=== PATIENT | female | born 1940 | race Caucasian/White ===

== ENCOUNTER → 2018-03-01 10:08 | Outpatient (CLI) | payer MEDICARE, OTHER, SELFPAY ==
[2018-03-01 13:30] LABS: Absolute Lymphocyte Count 1.92 X10^3/ul (0.83-4.51); Absolute Neutrophil Count 5.7 X10^3/uL (2.0-7.7); Basophil# 0.04 X10^3/uL; Basophil% 0.4 % (0-1); Eosinophil# 0.21 X10^3/uL; Eosinophils% 2.3 % (0-5); Hemoglobin 12.5 g/dl (12.0-15.0); Lymphocyte # 1.92 X10^3/ul (4.0); Lymphocyte % 21.1 % (19-41); Mean Corp Hgb Conc 32.9 g/gl (32-36); Mean Corpuscular Hgb 29.9 pg (27.0-32.0); Mean Corpuscular Volume 90.9 fL (81-99); Mean Platelet Vol. 11.8 fl (6.2-12.0); Monocyte# 1.16 X10^3/uL; Monocyte% 12.7 % (0-10); Neutrophil # 5.73 X10^3/uL (2.7-7.7); Platelet Count 185 K/mm3 (150-450); RBC Distribution Width CV 14.6 % (11.6-14.6); RBC Distribution Width SD 48.1 fl (35.1-43.9); Red Blood Count 4.18 M/mm3 (4.2-5.4); White Blood Count 9.1 K/mm3 (4.4-11.0)
[2018-03-01 13:33] LABS: POSITIVE COUNT NO; POSITIVE DIFFERENTIAL NO; POSITIVE MORPHOLOGY NO
[2018-03-01 13:54] LABS: Albumin, Serum 3.8 g/dL (3.2-5.0); BUN 29 mg/dL (7-18); BUN/Creat Ratio 27.6 RATIO (10-20); Creatinine, Serum 1.05 mg/dL (0.55-1.02); EST Glomerular Filtration Rate 54 mL/min (>60); Est Glom Filt Rate - Afr Amer 66 mL/min (>60); Globulin 3.8 g/dL (2.2-4.2); Glucose 111 mg/dL (74-106); Protein, Total 7.6 g/dL (6.4-8.2)
[2018-03-01 13:55] LABS: AST(SGOT) 30 U/L (15-37); Alanine Aminotransfer ALT/SGPT 34 U/L (13-56); Alkaline Phosphatase 97 U/L (45-117); Anion Gap 6 (5-15); Calcium,Total 9.2 mg/dL (8.5-10.1); Chloride 106 mmol/L (98-107); Potassium 3.8 mmol/L (3.5-5.1); Sodium Level 142 mmol/L (136-145); Thyroid Stim Hormone (TSH) 2.05 uIU/mL (0.358-3.74)
== END ==
PROVIDERS: Family Provider Family Medicine Geriatric Medicine; PCP Family Medicine Geriatric Medicine; Visit Provider Family Medicine Geriatric Medicine
DX: I10 Essential (primary) hypertension (principal); E11.9 Type 2 diabetes mellitus without complications; E55.9 Vitamin D deficiency, unspecified
CPT/HCPCS: 36415; 80053; 82306; 84443; 85025

== ENCOUNTER → 2018-06-03 09:12 | Outpatient (CLI) | payer MEDICARE, OTHER, SELFPAY ==
[2018-06-03 12:52] LABS: Absolute Lymphocyte Count 1.32 X10^3/ul (0.83-4.51); Absolute Neutrophil Count 4.4 X10^3/uL (2.0-7.7); Basophil# 0.03 X10^3/uL; Basophil% 0.4 % (0-1); Eosinophil# 0.19 X10^3/uL; Eosinophils% 2.8 % (0-5); Hematocrit 36.5 % (37-47); Hemoglobin 11.8 g/dl (12.0-15.0); Lymphocyte # 1.32 X10^3/ul (4.0); Lymphocyte % 19.4 % (19-41); Mean Corp Hgb Conc 32.3 g/gl (32-36); Mean Corpuscular Hgb 29.5 pg (27.0-32.0); Mean Corpuscular Volume 91.3 fL (81-99); Mean Platelet Vol. 11.4 fl (6.2-12.0); Monocyte# 0.86 X10^3/uL; Monocyte% 12.6 % (0-10); Neutrophil # 4.38 X10^3/uL (2.7-7.7); Neutrophil % 64.4 % (47-70); POSITIVE COUNT NO; POSITIVE DIFFERENTIAL NO; POSITIVE MORPHOLOGY NO; Platelet Count 158 K/mm3 (150-450); RBC Distribution Width CV 14.6 % (11.6-14.6); RBC Distribution Width SD 47.4 fl (35.1-43.9); White Blood Count 6.8 K/mm3 (4.4-11.0)
[2018-06-03 13:25] LABS: AST(SGOT) 21 U/L (15-37); Alanine Aminotransfer ALT/SGPT 27 U/L (13-56); Albumin, Serum 3.6 g/dL (3.2-5.0); Alkaline Phosphatase 87 U/L (45-117); Anion Gap 9 (5-15); BUN 42 mg/dL (7-18); BUN/Creat Ratio 32.8 RATIO (10-20); Calcium,Total 9.2 mg/dL (8.5-10.1); Chloride 105 mmol/L (98-107); Creatinine, Serum 1.28 mg/dL (0.55-1.02); EST Glomerular Filtration Rate 43 mL/min (>60); Est Glom Filt Rate - Afr Amer 52 mL/min (>60); Globulin 3.7 g/dL (2.2-4.2); Glucose 158 mg/dL (74-106); Potassium 3.6 mmol/L (3.5-5.1); Protein, Total 7.3 g/dL (6.4-8.2); Sodium Level 142 mmol/L (136-145); Thyroid Stim Hormone (TSH) 3.02 uIU/mL (0.358-3.74)
[2018-06-04 08:19] LABS: Vitamin D,25 Hydroxy 79.4 ng/mL (29.95-100.01)
== END ==
PROVIDERS: Family Provider Family Medicine Geriatric Medicine; PCP Family Medicine Geriatric Medicine; Visit Provider Family Medicine Geriatric Medicine
DX: I10 Essential (primary) hypertension (principal); E55.9 Vitamin D deficiency, unspecified; E11.9 Type 2 diabetes mellitus without complications
CPT/HCPCS: 36415; 80053; 82306; 84443; 85025

== ENCOUNTER → 2018-09-08 11:52 | Outpatient (CLI) | payer MEDICARE, OTHER, SELFPAY ==
[2018-09-08 12:37] LABS: Absolute Lymphocyte Count 1.59 X10^3/ul (0.83-4.51); Absolute Neutrophil Count 4.9 X10^3/uL (2.0-7.7); Basophil# 0.05 X10^3/uL; Basophil% 0.6 % (0-1); Eosinophil# 0.18 X10^3/uL; Eosinophils% 2.3 % (0-5); Hematocrit 36.7 % (37-47); Hemoglobin 11.8 g/dl (12.0-15.0); Lymphocyte # 1.59 X10^3/ul (4.0); Lymphocyte % 20.5 % (19-41); Mean Corp Hgb Conc 32.2 g/gl (32-36); Mean Corpuscular Hgb 29.1 pg (27.0-32.0); Mean Corpuscular Volume 90.4 fL (81-99); Mean Platelet Vol. 11.7 fl (6.2-12.0); Monocyte# 0.96 X10^3/uL; Monocyte% 12.4 % (0-10); Neutrophil # 4.93 X10^3/uL (2.7-7.7); Neutrophil % 63.8 % (47-70); Platelet Count 168 K/mm3 (150-450); RBC Distribution Width CV 14.7 % (11.6-14.6); RBC Distribution Width SD 47.6 fl (35.1-43.9); Red Blood Count 4.06 M/mm3 (4.2-5.4); White Blood Count 7.7 K/mm3 (4.4-11.0)
[2018-09-08 12:38] LABS: POSITIVE COUNT NO; POSITIVE DIFFERENTIAL NO; POSITIVE MORPHOLOGY NO
[2018-09-08 12:53] LABS: Vitamin D,25 Hydroxy 106.9 ng/mL (29.95-100.01)
[2018-09-08 12:57] LABS: ALB/GLOB Ratio 0.9 RATIO (0.9-2.4); AST(SGOT) 22 U/L (15-37); Alanine Aminotransfer ALT/SGPT 24 U/L (13-56); Albumin, Serum 3.6 g/dL (3.2-5.0); Alkaline Phosphatase 107 U/L (45-117); Anion Gap 5 (5-15); BUN 23 mg/dL (7-18); BUN/Creat Ratio 19.5 RATIO (10-20); Chloride 107 mmol/L (98-107); Creatinine, Serum 1.18 mg/dL (0.55-1.02); EST Glomerular Filtration Rate 47 mL/min (>60); Est Glom Filt Rate - Afr Amer 57 mL/min (>60); Globulin 3.8 g/dL (2.2-4.2); Glucose 139 mg/dL (74-106); Potassium 4.1 mmol/L (3.5-5.1); Protein, Total 7.4 g/dL (6.4-8.2); Sodium Level 141 mmol/L (136-145); Thyroid Stim Hormone (TSH) 3.19 uIU/mL (0.358-3.74)
== END ==
PROVIDERS: Family Provider Family Medicine Geriatric Medicine; PCP Family Medicine Geriatric Medicine; Visit Provider Family Medicine Geriatric Medicine
DX: E11.9 Type 2 diabetes mellitus without complications (principal); I10 Essential (primary) hypertension; E55.9 Vitamin D deficiency, unspecified
CPT/HCPCS: 36415; 80053; 82306; 84443; 85025

== ENCOUNTER 2019-12-27 11:06 | Emergency (ER) | payer MEDICARE, OTHER, SELFPAY ==
[2019-12-27 11:07] VITALS: BP 159/109; PULSE 107; RESP 16; TEMP 36.6; O2SAT 97; BMI 38.5
--- NOTE | 2019-12-27 11:29 | RAD_ITS ---
STUDY: X-RAY CHEST REASON FOR EXAM: Female, 79 years old. CHEST PAIN, A-FIB TECHNIQUE: Single AP portable view of the chest. COMPARISON: Comparison is made with prior study dated December 24, 2014. FINDINGS: EKG electrodes are seen. The lungs are clear and expanded. There is no demonstrated pleural abnormality. There is mild cardiac enlargement. Normal mediastinum and darling. Normal visualized pulmonary arteries. There is atherosclerotic calcification of the aortic arch with tortuosity. There are diffuse degenerative changes of the visualized thoracic spine. There is degenerative osteoarthritis of the bilateral shoulders. There is no demonstrated abnormality of the visualized soft tissue structures of the upper abdomen. RAD/Chest 1 View (Portable) IMPRESSION: Mild cardiomegaly. Electronically Signed: Ramakrishna Sainz, at 12:20 EST , Service support ,
--- NOTE | 2019-12-27 11:29 | EKG12_ITS ---
Test Reason : PALPS Blood Pressure : / mmHG Vent. Rate : 125 BPM Atrial Rate : 144 BPM P-R Int : 000 ms QRS Dur : 100 ms QT Int : 350 ms P-R-T Axes : 000 -45 160 degrees QTc Int : 505 ms Atrial fibrillation with rapid ventricular response Left anterior fascicular block Moderate voltage criteria for LVH, may be normal variant ST & T wave abnormality, consider lateral ischemia Abnormal ECG Confirmed by LALA VARGAS ([id number]), visual effects editor MOHAN LANDRUM ([id number] on 12/29/2019 3:15:11 PM Referred By: GAY Confirmed By:LALA VARGAS
--- NOTE | 2019-12-27 11:49 | ED.VISSUMM ---
- ER Visit Summary Date of Service: 12/27/19 Chief Complaint: Elevated heart rate History of Present Illness: The patient is a 79 F history of A. fib and insulin-dependent diabetes. Also hypertension. Patient's February less than a year ago. And she stopped taking her medications consistently. She supposed to be on Coumadin and metoprolol for her A. fib she is not taking those consistently. And insulin and oral hypoglycemics for diabetics which again she is not taking. She just recently changed primary care providers from Dr. Sun to nurse practitioner Teresita Ruiz. Physical Examination: Older female no acute distress initial blood pressure 139/109. Heart rate 107 on my exam was 110 120. H EENT exam unremarkable. Neck nontender JVD. No lymphadenopathy. Lungs clear to auscultation bilaterally. Heart irregular irregular rate about 110 consistent with A. fib RVR. No murmur appreciated. Abdomen soft nontender normal bowel sounds no peritoneal signs. Remedies moves all 4 calves nontender without edema or cords. Neurologically she is awake and alert with no focal motor deficits. 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 Normal dorsi plantarflexion. Test Results: EKG shows A. fib RVR with a rate of 125. Chest. Portable 1 view showed mild cardiomegaly otherwise no acute process. Read both myself and radiologist. CBC white count of 7. Hemoglobin 14. Unremarkable. Chemistries unremarkable except blood sugar 433. Normal gap of 5. Creatinine 1.1. PT/INR normal. Troponin normal. Serum ketones negative. Emergency Department Course and Treatment: Patient noncompliant with her medications with accelerated heart rate consistent with A. fib RVR. Also reportedly an elevated blood sugar. Should be treated with IV Cardizem. Repeat exam patient is doing well. Her heart rate 60 with 1 dose IV Cardizem. Given subcu insulin 15 units. I spoke with her nurse practitioner and they are calling in all of her prescriptions. Treatment Plan: Resume her Coumadin, metoprolol and insulin. Watch her blood sugars closely. Follow-up with the nurse practitioner. Disposition: Discharge Impression: Acute and recurrent A. fib with RVR Hyperglycemia history of insulin-dependent diabetes Noncompliant with medications This note was generated with [employer] software. It may contain incorrect words, spelling, and punctuation that were not noted in review of the chart prior to signing ED Disposition - Plan for ED Patient: Referrals: Bruce Sun Chi, MD [COURTESY STAFF PHYSICIAN] -
[2019-12-27 11:58] LABS: Absolute Lymphocyte Count 1.84 X10^3/uL (0.83-4.51); Absolute Neutrophil Count 4.9 X10^3/uL (2.0-7.7); Basophil# 0.05 X10^3/uL; Basophil% 0.6 % (0-1); Eosinophil# 0.17 X10^3/uL; Eosinophils% 2.2 % (0-5); Hematocrit 42.7 % (37-47); Hemoglobin 14.4 g/dL (12.0-15.0); Lymphocyte # 1.84 X10^3/ul (4.0); Lymphocyte % 23.5 % (19-41); Mean Corp Hgb Conc 33.7 g/dL (32-36); Mean Corpuscular Hgb 29.8 pg (27.0-32.0); Mean Corpuscular Volume 88.4 fL (81-99); Mean Platelet Vol. 11.6 fl (6.2-12.0); Monocyte# 0.82 X10^3/uL; Monocyte% 10.5 % (0-10); NRBC Flagged by Analyzer 0 % (0-5); Neutrophil # 4.89 X10^3/uL (2.7-7.7); Neutrophil % 62.4 % (47-70); Platelet Count 171 K/mm3 (150-450); RBC Distribution Width CV 12.7 % (11.6-14.6); RBC Distribution Width SD 41.3 fl (35.1-43.9); Red Blood Count 4.83 M/mm3 (4.2-5.4); White Blood Count 7.8 K/mm3 (4.4-11.0)
[2019-12-27] MEDS: dilTIAZem 25 MG/5 ML Vial IV BOLUS (11:58)
[2019-12-27 12:15] LABS: International Normalized Ratio 1.1; Prothrombin Time (Protime)PT. 14.4 SECONDS (11.7-14.9)
[2019-12-27 12:21] VITALS: BP 113/86; PULSE 68; RESP 18; O2SAT 96
[2019-12-27 12:23] LABS: Anion Gap 5 (5-15); BUN 22 mg/dL (7-18); BUN/Creat Ratio 19.1 RATIO (10-20); Calcium,Total 9.4 mg/dL (8.5-10.1); Chloride 102 mmol/L (98-107); Creatinine, Serum 1.15 mg/dL (0.55-1.02); EST Glomerular Filtration Rate 49 mL/min (>60); Est Glom Filt Rate - Afr Amer 59 mL/min (>60); Estimated Creatinine Clearance 31.89 ml/min; Glucose 433 mg/dL (74-106); Potassium 4.3 mmol/L (3.5-5.1); Sodium Level 135 mmol/L (136-145)
[2019-12-27 13:00] VITALS: BP 145/90; PULSE 79; RESP 18; O2SAT 95
--- NOTE | 2019-12-27 13:47 | DCINST.ED_ITS ---
ED Disposition - Plan for ED Patient: Disposition: Home or Assisted Living Instructions: Atrial Fibrillation Referrals: Teresita Ruiz, MULTIPLEX OPERATOR-C [Primary Care Provider] - 3-5 Days Additional Instructions: Restart your medications. I spoke to Teresita Ruiz on the phone in their office and call them in along with a glucometer. If there is any problems with that I called the ER and I will take care of myself. You definitely need to restart your insulin, your Coumadin and your metoprolol. When you restart your Coumadin you will need your Coumadin level checked your PT/INR by Thursday. Watch her blood sugars at least taken 3 times daily.
[2019-12-27 13:49] VITALS: BP 128/99; PULSE 72; RESP 18; O2SAT 96
[2019-12-27] MEDS: Insulin Lispro 100 UNIT/ML INSULN.PEN 15 UNIT SC (13:54)
== END 2019-12-27 13:54 | disposition home or self-care (01) ==
PROVIDERS: Emergency Provider Emergency Medicine; PCP Nurse Practitioner
DX: I48.91 Unspecified atrial fibrillation (principal); E11.65 Type 2 diabetes mellitus with hyperglycemia; I10 Essential (primary) hypertension; Z79.01 Long term (current) use of anticoagulants; Z79.4 Long term (current) use of insulin; Z91.14 Patient's other noncompliance with medication regimen
CPT/HCPCS: 71045; 80048; 82009; 84484; 85025; 85610; 93005; 99284; A4216

== ENCOUNTER → 2020-05-01 12:04 | Outpatient (CLI) | payer MEDICARE, OTHER, SELFPAY ==
--- NOTE | 2020-05-01 12:07 | BI_ITS ---
MAMMOGRAPHY - BILATERAL SCREENING REASON FOR EXAM: Female, 79 years old. Routine annual screening examination. PERTINENT HISTORY: Sister with breast cancer. TECHNIQUE: Digital bilateral breast lola (3D mammographic acquisition) in the CC and MLO projections. 2-D mediolateral oblique (MLO) and craniocaudad (CC) views of both breasts were obtained. CAD: Full Field Digital Mammography with Computer Added Detection was performed. COMPARISON: Comparison is made with prior study dated May 06, 2016 and April 04, 2014. FINDINGS: Breast Composition: The breasts are almost entirely fatty. There are no dominant masses or suspicious calcifications. No other significant abnormalities are identified. There has been no significant change since the prior study. BI/SCREEN MAMM (CAD) W/LOLA BILAT IMPRESSION: Stable bilateral screening mammogram. Yearly follow-up mammogram recommended. (A) ASSESSMENT CATEGORY: BIRADS Category 1: Negative. A letter regarding these results will be sent to the patient by the facility within 30 days. Approximately 10% of breast cancers are not detected by mammography. A normal mammogram should not delay biopsy of a clinically suspicious abnormality. [id number] Electronically Signed: Ramakrishna Sainz, at 13:59 EDT , Service support ,
--- NOTE | 2020-05-01 12:10 | BD_ITS ---
STUDY: DUAL ENERGY X-RAY ABSORPTIOMETRY / DXA REASON FOR EXAM: Female, 79 years old. 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 COMPARISON: Comparison is made with prior study dated May 06, 2016. FINDINGS: Lumbar Spine (L1-L4): g/cm2 (0.879) / T-score (-2.5) / Z-score (-0.7) Findings are suggestive of osteoporosis with a high fracture risk. Left Femur Total: g/cm2 (0.728) / T-score (-2.2) / Z-score (-0.3) Left Femoral Neck: g/cm2 (0.693) / T-score (-2.5) / Z-score (-0.4) Right Femur Total: g/cm2 (0.718) / T-score (-2.3) / Z-score (-0.4) Right Femoral Neck: g/cm2 (0.628) / T-score (-2.9) / Z-score (-0.9) The T-Scores on the most recent prior examination were: Lumbar Spine (L1-L4): There has been worsening of bone density since the previous examination. Left Femur Total: which represents a worsening of 16.1%. Right Femur Total: which represents a worsening of 13%. BD/Dexa Bone Density Study IMPRESSION: The patient is considered osteoporotic as outlined below according to World Case Organization (WHO) criteria with a high fracture risk. There has been worsening of bone density since the previous examination. Reference Information: The T-score is the number of standard deviations above or below the standard which is normal for young adults at their peak bone mineral density. The World Health Organization (WHO) interprets the T-scores as follows: Above -1 Normal bone density Between -1 and -2.5 Osteopenia Equal to / or below -2.5 Osteoporosis As a practical clinical guideline, osteopenia may be graded as follows: Mild -1 through -1.5 Moderate -1.6 through -2.0 Severe -2.1 through -2.4 The Z-score is the number of standard deviations above or below age-matched controls. A Z-score of less than -1.5 would be considered abnormal. References: 1. NIH Osteoporosis and Related Bone Diseases http://www.osteo.org 2. International Society for Clinical Densitometry http://www.iscd.org 3. National Osteoporosis Foundation http://www.nof.org Electronically Signed: Ramakrishna Sainz, at 15:03 EDT , Service support ,
== END ==
PROVIDERS: PCP Nurse Practitioner; Referring Provider Nurse Practitioner; Visit Provider Nurse Practitioner
DX: Z12.31 Encounter for screening mammogram for malignant neoplasm of breast (principal); Z78.0 Asymptomatic menopausal state
CPT/HCPCS: 77063; 77067; 77080

== ENCOUNTER → 2020-10-26 09:53 | Outpatient (CLI) | payer MEDICARE, OTHER, SELFPAY ==
[2020-10-09 09:12] VITALS: BMI 42.6
--- NOTE | 2020-10-26 09:54 | ECHOCS_ITS ---
Reason For Study: re-evaluate bicuspid aortic valve Procedure This was a 2D Doppler, Color Flow transthoracic echocardiogram. The study was technically difficult. DUE to body habitus. Contrast injection was performed. Exam performed in department. Left Ventricle Normal LV size. Mild concentric left ventricular hypertrophy. The estimated ejection fraction is 50 %. No regional wall motion abnormalities noted. Right Ventricle Normal RV size. Normal systolic function. Atria The left atrium is mildly enlarged. Normal right atrium. Mitral Valve Normal mitral valve. Tricuspid Valve Normal tricuspid valve. Mild (1+) tricuspid valve insufficiency. Pulmonary artery systolic pressure is 40 mmHg. Aortic Valve Mild focal aortic valve calcification. Bicuspid aortic valve. Peak aortic valve gradient 24 mmHg. Mean aortic valve gradient 14 mmHg. Mild aortic stenosis. Great Vessels Mildly dilated aortic root. The pulmonary artery is normal size. Normal inferior vena cava. Pericardium/Pleural No pericardial effusion. Medication 22 gauge I.V. with prn adaptor inserted into right arm. Diluted definity 3.0ml given slow IV push to enhance endocardial definition. MMode/2D Measurements & Calculations LVIDd: 4.7 cm IVSd: 1.3 cm LVOT diam: 2.1 cm LVIDs: 3.4 cm LVPWd: 1.3 cm LVOT area: 3.5 cm2 RVDd: 3.7 cm FS: 27.9 % Ao root diam: 3.8 cm LAV(MOD-bp): 87.6 ml LA A4 area: 22.2 cm2 LAV(MOD-bp) Indexed: 42.9 ml/m2 LAV(MOD-sp2): 90.9 ml LAV(MOD-sp4): 74.0 ml LA dimension(2D): 4.1 cm RA A4 area: 16.8 cm2 Doppler Measurements & Calculations MV E max yunier: 102.9 cm/sec Ao V2 max: 246.1 cm/sec LV V1 max: 83.1 cm/sec Ao max P.3 mmHg LV V1 max P.8 mmHg Ao V2 mean: 179.2 cm/sec LV V1 mean P.5 mmHg Ao mean P.1 mmHg LV V1 mean: 58.7 cm/sec Ao V2 VTI: 48.7 cm LV V1 VTI: 17.2 cm KINSEY(I,D): 1.2 cm2 KINSEY(V,D): 1.2 cm2 SV(LVOT): 60.7 ml PA V2 max: 58.0 cm/sec TR max yunier: 296.0 cm/sec TR max P.8 mmHg Interpretation Summary Normal LV size. Mild concentric left ventricular hypertrophy. Mean aortic valve gradient 14 mmHg. The estimated ejection fraction is 50 %. Mild (1+) tricuspid valve insufficiency. Pulmonary artery systolic pressure is 40 mmHg. Bicuspid aortic valve. Contrast injection was performed. Compared to prior study, there is no significant change. Ordering Physician: Elkin Beltran Referring Physician: Teresita Ruiz Performed By: Nichole Rainey, NAEEM, RVT
== END ==
PROVIDERS: PCP Nurse Practitioner; Referring Provider Nurse Practitioner Family; Visit Provider Nurse Practitioner Family
DX: I48.91 Unspecified atrial fibrillation (principal); Z79.899 Other long term (current) drug therapy; I35.2 Nonrheumatic aortic (valve) stenosis with insufficiency
CPT/HCPCS: 93306; Q9957; A4216; C8929

== ENCOUNTER 2022-01-02 09:03 | Emergency (ER) | payer MEDICARE, OTHER, SELFPAY ==
[2022-01-02 09:04] VITALS: BP 145/77; PULSE 80; RESP 15; TEMP 36; O2SAT 96; BMI 39.1
[2022-01-02 09:06] VITALS: BP 145/77; PULSE 80; RESP 15; TEMP 36; O2SAT 96
[2022-01-02 09:40] LABS: Bedside Glucose 89 mg/dL (70-110)
--- NOTE | 2022-01-02 09:52 | EDS_ITS ---
HPI History of Present Illness Chief Complaint: Weakness Informant: patient Onset/Context/Timing Onset: Today Context: Gradual Onset Timing: Continuous Quality: Weakness Location: Generalized Worsened by: Nothing Relieved by: Glucose, metoprolol Narrative Narrative: Patient presents with generalized weakness and some mild sweating that began today. Patient states it began gradually. Patient states it began after she woke up today. Patient states she felt weak all over. Patient states nothing makes it worse. Patient was not sure if it was her atrial fibrillation or her blood sugar. Patient took an oral glucose tablet and 2 of her metoprolol tablets. Patient states she started feeling better after this. [facility] Medical History Aortic stenosis with bicuspid valve Diabetes Environmental allergies Essential (primary) hypertension Hyperlipidemia Morbid obesity with BMI of 40.0-44.9, adult Nonobstructive atherosclerosis of coronary artery Paroxysmal atrial fibrillation Persistent atrial fibrillation Rapid atrial fibrillation (12/2019) Secondary pulmonary arterial hypertension Home Medications magnesium chloride 71.5 mg PO DAILY #30 tablet. 12/26/14 [Rx Last Taken Unknown] warfarin 5 mg PO UD #30 tab 12/26/14 [Rx Last Taken Unknown] atorvastatin 40 mg tablet 40 mg PO QDAY 12/28/17 [History Last Taken Unknown] ergocalciferol (vitamin D2) 1,250 mcg (50,000 unit) capsule 50,000 unit PO QWEEK 12/31/17 [History Last Taken Unknown] metoprolol tartrate 50 mg tablet 50 mg PO BID #180 tab 11/04/18 [Rx Last Taken Unknown] losartan 100 mg tablet 100 mg PO QDAY #90 tab 09/10/20 [Rx Last Taken Unknown] alendronate 70 mg effervescent tablet 70 mg PO QWEEK 09/19/20 [History Last Taken Unknown] insulin aspart U-100 100 unit/mL (3 mL) subcutaneous pen 15 unit SC TID #45 ml 10/09/20 [Rx Last Taken Unknown] insulin detemir U-100 100 unit/mL (3 mL) subcutaneous pen 20 unit SC DAILY #18 ml 10/09/20 [Rx Last Taken Unknown] pen needle, diabetic 32 gauge x #400 ea 10/09/20 [Rx Last Taken Unknown] warfarin 1 mg tablet 2 mg PO DAILY tab 11/24/20 [History Last Taken Unknown] famotidine 40 mg tablet 40 mg PO DAILY 05/07/21 [History Last Taken Unknown] glimepiride 2 mg tablet 2 mg PO BID tab 05/07/21 [History Last Taken Unknown] hydrochlorothiazide 25 mg tablet 25 mg PO DAILY #90 tab 05/07/21 [Rx Last Taken Unknown] levothyroxine 25 mcg capsule 25 mcg PO DAILY 05/07/21 [History Last Taken Unknown] Allergy/AdvReac Type Severity Reaction Status Date / Time lisinopril AdvReac Severe Cough Verified 05/07/21 09:29 liraglutide [From Victoza] AdvReac Other Verified 05/07/21 09:29 Family History Father CAD (coronary artery disease) Brother Diabetes Sister Diabetes Breast cancer Hyperlipidemia Hypertension Grandmother CVA (cerebral vascular accident) Grandfather Sudden cardiac Son Atrial fibrillation Surgical History History of appendectomy History of cholecystectomy History of hysterectomy History of left heart catheterization (03/11/12) Social History Smoking Status: Never smoker ROS ROS ED Constitutional Constitutional ED: Reports sweats; Denies chills or fever(s) Eyes Eyes: Denies blurry vision or change in vision ENT ENT ED: Denies rhinorrhea or sore throat Cardiovascular Cardiovascular: Denies chest pain or palpitations Respiratory/Chest Respiratory/Chest: Denies cough or dyspnea Gastrointestinal Gastrointestinal: Denies nausea or vomiting Genitourinary Genitourinary ED: Denies dysuria or hematuria Musculoskeletal Musculoskeletal: Denies back pain or neck pain Integumentary Denies abscess or rash Neurologic Neurologic: Reports weakness; Denies headache(s) Allergic/Immunologic Allergic/Immunologic ED: Denies mouth swelling or urticaria EXAM Physical Exam Const Vital Signs: 01/02/22 09:04 01/02/22 09:06 01/02/22 10:46 Temperature 96.8 F L 96.8 F L Temperature Source Temporal Temporal Pulse Rate 80 80 72 Respiratory Rate 15 15 18 Blood Pressure 145/77 H 145/77 H 140/69 H Blood Pressure Mean 99 99 92 Pulse Ox 96 96 Oxygen Delivery Method Room Air Room Air 01/02/22 11:06 Temperature 98.7 F Temperature Source Temporal Pulse Rate 76 Respiratory Rate 16 Blood Pressure 122/74 H Blood Pressure Mean 90 Pulse Ox 96 Oxygen Delivery Method Room Air Positive well nourished, well developed, obese and unkempt General Appearance ED: unkempt and well developed Nutritional Appearance: obese HEENT Reports moist mucous membranes Neck supple and no JVD Resp normal respiratory effort and clear to auscultation bilaterally Cardio regular rate, regular rhythm and no murmurs GI normal to inspection, nondistended, normoactive bowel sounds and non-tender Palpation: soft Extremity normal to inspection General Extremety ED: Negative for edema or tenderness General Extremity: Negative for edema Neuro oriented x3, CN's II-XII intact bilaterally and no sensory deficits noted Sensorium / Orientation: alert Motor Exam: strength 5/5 throughout Psych mental status grossly normal Appearance: unkempt Skin no rashes or lesions noted MDM MDM MDM Narrative Medical decision making narrative: EKG was obtained. On my interpretation, there is atrial fibrillation/flutter with a rate of 62. There is nonspecific interventricular conduction delay. There are nonspecific ST-T wave changes. This is unchanged compared to previous EKG dated 12/27/2019. CBC shows a slight leukocytosis of 11.3. Comprehensive metabolic profile was essentially within normal limits. Glucose was 78. INR was therapeutic at 2.9. High-sensitivity troponin was normal at 12. Portable 1 view chest x-ray was obtained. On my interpretation, lung vela are clear. There is normal cardiac silhouette. Bony thorax is normal. There is no acute process noted. Radiologist also inte rpreted the x-ray and agrees. Patient was advised of her findings. Patient was advised that this may have been a hypoglycemic episode. Patient was instructed to continue her diet as prescribed. Patient was instructed to follow-up with her primary care physician in 5 to 7 days. Patient understood and was agreeable with the plan. All questions were answered. Lab Data Attestation: I reviewed the patient's lab results. Labs: Laboratory Results - last 24 hr 01/02/22 01/02/22 01/02/22 09:34 10:20 10:20 WBC 11.3 H RBC 4.30 Hgb 13.0 Hct 38.8 MCV 90.2 MCH 30.2 MCHC 33.5 RDW Std Deviation 46.6 H RDW Coeff of [place] 14.0 Plt Count 209 MPV 10.6 Immature Gran % (Auto) 1.100 H Neut % (Auto) 75.9 H Lymph % (Auto) 10.2 L [place] % (Auto) 11.4 H Eos % (Auto) 1.0 Baso % (Auto) 0.4 Absolute Neuts (auto) 8.6 H Absolute Lymphs (auto) 1.16 Nucleated RBC % 0 PT INR Sodium 140 Potassium 3.8 Chloride 107 Carbon Dioxide 29.0 Anion Gap 4 L BUN 31 H Creatinine 0.78 Estim Creat Clear Calc 40.38 Est GFR (MDRD) Af Amer 92 Est GFR (MDRD) Non-Af 76 BUN/Creatinine Ratio 39.9 H Glucose 78 Calcium 9.1 Total Bilirubin 0.80 AST 33 ALT 34 Alkaline Phosphatase 94 Troponin I High Sens 12 Total Protein 7.1 Albumin 3.2 Globulin 3.9 Albumin/Globulin Ratio 0.8 L POC Glucose 89 01/02/22 01/02/22 10:20 11:35 WBC RBC Hgb Hct MCV MCH MCHC RDW Std Deviation RDW Coeff of [place] Plt Count MPV Immature Gran % (Auto) Neut % (Auto) Lymph % (Auto) [place] % (Auto) Eos % (Auto) Baso % (Auto) Absolute Neuts (auto) Absolute Lymphs (auto) Nucleated RBC % PT Cancelled 29.7 H INR Cancelled 2.9 Sodium Potassium Chloride Carbon Dioxide Anion Gap BUN Creatinine Estim Creat Clear Calc Est GFR (MDRD) Af Amer Est GFR (MDRD) Non-Af BUN/Creatinine Ratio Glucose Calcium Total Bilirubin AST ALT Alkaline Phosphatase Troponin I High Sens Total Protein Albumin Globulin Albumin/Globulin Ratio POC Glucose Radiography Diagnostic Testing: Clinical Impression(s) from Imaging Studies Chest X-Ray 01/02/22 10:25 IMPRESSION: Cardiomegaly. Electronically Signed: Ramakrishna Sainz MD at 11:33 EST , EKG Initial EKG: Attestation: I personally reviewed and interpreted this EKG as follows: Interpretation: No Acute Injury Pattern and Atrial Fibrillation (62) Prior EKG tracings: available for review Prior: Unchanged (12/27/2019) Discharge Plan Triage Chief Complaint: Weakness ED Provider: Hira Leone Dx/Rx/DC Orders Clinical Impression: General weakness, Hypoglycemia Instructions: ED Diabetic Insulin Reaction, ED Weakness (Uncertain Cause) Prescriptions: No Action atorvastatin 40 mg tablet 40 mg PO QDAY RF: 0 ergocalciferol (vitamin D2) 50,000 unit capsule 50,000 unit PO QWEEK RF: 0 warfarin 1 mg tablet 2 mg PO DAILY RF: 0 insulin detemir U-100 100 unit/mL (3 mL) insulin pen 20 unit SC DAILY Qty: 18 RF: 1 insulin aspart U-100 [Novolog Flexpen U-100 Insulin] 100 unit/mL (3 mL) insulin pen 15 unit SC TID Qty: 45 RF: 4 (DME) pen needle, diabetic [BD Ultra-Fine Kimber Pen Needle] 32 gauge x 5/32 needle See Rx Instructions .ROUTE .MEDSUPPLY Qty: 400 RF: 4 alendronate 70 mg tablet, effervescent 70 mg PO QWEEK RF: 0 famotidine 40 mg tablet 40 mg PO DAILY RF: 0 levothyroxine 25 mcg capsule 25 mcg PO DAILY RF: 0 glimepiride 2 mg tablet 2 mg PO BID RF: 0 hydrochlorothiazide 25 mg tablet 25 mg PO DAILY Qty: 90 RF: 3 warfarin 5 MG tablet 5 mg PO UD Qty: 30 RF: 0 magnesium chloride 71.5 MG tablet,delayed release (DR/EC) 71.5 mg PO DAILY Qty: 30 RF: 0 metoprolol tartrate 50 mg tablet 50 mg PO BID Qty: 180 RF: 3 losartan 100 mg tablet 100 mg PO QDAY Qty: 90 RF: 3 Primary Care Provider: Teresita Ruiz NP Referrals: Teresita Ruiz HIGH RISK OB, HIGH RISK OB-C [Primary Care Provider] - 3-5 Days Disposition Disposition: Home, Self Care
--- NOTE | 2022-01-02 09:56 | EKG12_ITS ---
Test Reason : Blood Pressure : / mmHG Vent. Rate : 062 BPM Atrial Rate : 069 BPM P-R Int : 000 ms QRS Dur : 132 ms QT Int : 456 ms P-R-T Axes : 000 -20 174 degrees QTc Int : 462 ms Atrial fibrillation Non-specific intra-ventricular conduction block T wave abnormality, consider lateral ischemia Abnormal ECG Confirmed by DANIEL WEBB, JOSE ([id number]), scientific editor MING JOHNSON ([id number]) on 01/06/2022 1:26:51 PM Referred By: AL Confirmed By:TANO SANCHEZ MD
--- NOTE | 2022-01-02 10:25 | RAD_ITS ---
STUDY: X-RAY CHEST REASON FOR EXAM: Female, 81 years old. Weakness TECHNIQUE: Single AP portable view of the chest. COMPARISON: Comparison is made with prior study dated 12/27/2019. FINDINGS: EKG electrodes are seen. The lungs are clear and expanded. There is no demonstrated pleural abnormality. There is moderate cardiac enlargement. Normal mediastinum and darling. Normal visualized pulmonary arteries. There is atherosclerotic calcification of the aortic arch with tortuosity. There are diffuse degenerative changes of the visualized thoracic spine. Normal visualized ribs, clavicles, and shoulders. There is no demonstrated abnormality of the visualized soft tissue structures of the upper abdomen. RAD/Chest 1 View (Portable) IMPRESSION: Cardiomegaly. Electronically Signed: Ramakrishna Sainz MD at 11:33 EST ,
[2022-01-02 10:27] LABS: Absolute Lymphocyte Count 1.16 X10^3/uL (0.83-4.51); Absolute Neutrophil Count 8.6 X10^3/uL (2.0-7.7); Basophil# 0.05 X10^3/uL; Basophil% 0.4 % (0-1); Eosinophil# 0.11 X10^3/uL; Hematocrit 38.8 % (37-47); Lymphocyte # 1.16 X10^3/ul (0.83-4.51); Lymphocyte % 10.2 % (19-41); Mean Corp Hgb Conc 33.5 g/dL (32-36); Mean Corpuscular Hgb 30.2 pg (27.0-32.0); Mean Corpuscular Volume 90.2 fL (81-99); Mean Platelet Vol. 10.6 fl (6.2-12.0); Monocyte# 1.29 X10^3/uL; Monocyte% 11.4 % (0-10); NRBC Flagged by Analyzer 0 % (0-5); Neutrophil % 75.9 % (47-70); Platelet Count 209 K/mm3 (150-450); RBC Distribution Width SD 46.6 fl (35.1-43.9); White Blood Count 11.3 K/mm3 (4.4-11.0)
[2022-01-02 10:46] VITALS: BP 140/69; PULSE 72; RESP 18
[2022-01-02 10:46] LABS: ALB/GLOB Ratio 0.8 RATIO (0.9-2.4); AST(SGOT) 33 U/L (15-37); Alanine Aminotransfer ALT/SGPT 34 U/L (13-56); Albumin, Serum 3.2 g/dL (3.2-5.0); Alkaline Phosphatase 94 U/L (45-117); Anion Gap 4 (5-15); BUN 31 mg/dL (7-18); BUN/Creat Ratio 39.9 RATIO (10-20); Calcium,Total 9.1 mg/dL (8.5-10.1); Chloride 107 mmol/L (98-107); Creatinine, Serum 0.78 mg/dL (0.55-1.02); EST Glomerular Filtration Rate 76 mL/min (>60); Est Glom Filt Rate - Afr Amer 92 mL/min (>60); Estimated Creatinine Clearance 40.38 ml/min; Globulin 3.9 g/dL (2.2-4.2); Glucose 78 mg/dL (74-106); Potassium 3.8 mmol/L (3.5-5.1); Protein, Total 7.1 g/dL (6.4-8.2); Sodium Level 140 mmol/L (136-145); Troponin-I HS 12 pg/mL (3.0-54.0)
--- NOTE | 2022-01-02 10:52 | NURSING ---
Addendum entered by Stormy Martinez 01/02/22 10:54: BLUE TOP, NOT CHEMISTRIES Original Note: CHEMISTRIES HEMOLIZED. PER LAB. THEY WILL REPRINT LABELS
[2022-01-02 11:06] VITALS: BP 122/74; PULSE 76; RESP 16; TEMP 37.1; O2SAT 96
[2022-01-02 11:53] LABS: International Normalized Ratio 2.9; Prothrombin Time (Protime)PT. 29.7 SECONDS (11.7-14.9)
[2022-01-02 12:40] VITALS: BP 126/95; PULSE 84; RESP 24; TEMP 36.9
[2022-01-02 12:54] VITALS: BP 126/95
== END 2022-01-02 12:56 | disposition home or self-care (01) ==
PROVIDERS: Emergency Provider Emergency Medicine; PCP Nurse Practitioner; Visit Provider Emergency Medicine
DX: E11.649 Type 2 diabetes mellitus with hypoglycemia without coma (principal); I48.91 Unspecified atrial fibrillation; I48.92 Unspecified atrial flutter; E78.5 Hyperlipidemia, unspecified; I25.10 Atherosclerotic heart disease of native coronary artery without angina pectoris; R53.1 Weakness; I10 Essential (primary) hypertension
CPT/HCPCS: 71045; 80053; 82962; 84484; 85025; 85610; 93005; 99284; A4216

== ENCOUNTER → 2024-06-13 | Outpatient (CLI) | payer MEDICARE, OTHER, SELFPAY | END | disposition home or self-care (01) | LOC: PSN 08:33 | PROVIDERS: Referring Provider Internal Medicine Cardiovascular Disease; Visit Provider Internal Medicine Cardiovascular Disease | DX: I48.19 Other persistent atrial fibrillation (principal) | CPT/HCPCS: 93225; 93226 ==

== ENCOUNTER → 2024-06-14 | Outpatient (CLI) | payer MEDICARE, OTHER, SELFPAY ==
--- NOTE | 2024-06-14 13:52 | ECHOD_ITS ---
Reason For Study: ATRIAL FIBRILLATION Procedure This was a 2D Doppler, Color Flow transthoracic echocardiogram. Exam performed in department. Left Ventricle Normal LV size. The left ventricular ejection fraction is 50 %. Left ventricular systolic function is lower limits of normal. No regional wall motion abnormalities noted. Right Ventricle Normal RV size. Normal systolic function. Atria Normal left atrium. Normal right atrium. Mitral Valve There is mild mitral annular calcification. Tricuspid Valve Normal tricuspid valve. Mild to moderate (1-2+) tricuspid valve insufficiency. Pulmonary artery systolic pressure is 42 mmHg. Aortic Valve Bioprosthetic aortic valve. Great Vessels Mildly dilated aortic root. The ascending aorta is mild-moderately dilated. The pulmonary artery is normal size. Inferior vena cava collapse with respiration. Pericardium/Pleural No pericardial effusion. MMode/2D Measurements & Calculations LVIDd: 3.6 cm IVSd: 1.6 cm LVOT diam: 2.0 cm LVIDs: 2.2 cm LVPWd: 1.1 cm LVOT area: 3.2 cm2 RVDd: 3.6 cm FS: 38.5 % Ao root diam: 4.0 cm LAV(MOD-bp): 68.2 ml LVAd ap4: 19.0 cm2 LAV(MOD-bp) Indexed: 32.1 ml/m2 LVLd ap4: 7.1 cm LAV(MOD-sp2): 77.5 ml EDV(MOD-sp4): 44.2 ml LAV(MOD-sp4): 54.9 ml EDV(sp4-el): 42.8 ml LVAs ap4: 12.4 cm2 LVLs ap4: 6.1 cm ESV(MOD-sp4): 22.3 ml ESV(sp4-el): 21.7 ml EF(MOD-sp4): 49.5 % EF(sp4-el): 49.4 % SV(MOD-sp4): 21.9 ml SV(MOD-sp2): 16.8 ml LVAd ap2: 17.1 cm2 LVLd ap2: 6.8 cm EDV(MOD-sp2): 35.8 ml EDV(sp2-el): 36.7 ml LVAs ap2: 11.7 cm2 LVLs ap2: 6.2 cm ESV(MOD-sp2): 19.0 ml ESV(sp2-el): 18.7 ml EF(MOD-sp2): 46.9 % SV(sp4-el): 21.2 ml LA A4 area: 20.7 cm2 LA dimension(2D): 4.3 cm TAPSE: 1.3 cm RA A4 area: 20.3 cm2 Time Measurements MV dec time: 0.15 sec Doppler Measurements & Calculations MV E max maninder: 121.8 cm/sec Lat Peak E' Maninder: 10.2 cm/sec Med Peak E' Maninder: 7.4 cm/sec E/E' lat: 11.9 E/E' med: 16.5 Ao V2 max: 155.0 cm/sec LV V1 max: 133.5 cm/sec SV(LVOT): 82.7 ml Ao max P.6 mmHg LV V1 max P.1 mmHg Ao V2 mean: 104.0 cm/sec LV V1 mean P.1 mmHg Ao mean P.9 mmHg LV V1 mean: 96.5 cm/sec Ao V2 VTI: 28.5 cm LV V1 VTI: 25.9 cm AV (velocity ratio): 0.91 KINSEY(I,D): 2.9 cm2 KINSEY(V,D): 2.7 cm2 PA V2 max: 75.4 cm/sec TR max maninder: 310.9 cm/sec PA max PG (full): 1.2 mmHg TR max P.7 mmHg ECHO/Echo Complete Interpretation Summary Normal LV size. Bioprosthetic aortic valve. The left ventricular ejection fraction is 50 %. Left ventricular systolic function is lower limits of normal. Mild to moderate (1-2+) tricuspid valve insufficiency. Ordering Physician: Joel Judge Referring Physician: Joel Judge MD Performed By: Feli Gore RDCS and Student
== END | disposition home or self-care (01) ==
LOC: CVS 13:50
PROVIDERS: Referring Provider Internal Medicine Cardiovascular Disease; Visit Provider Internal Medicine Cardiovascular Disease
DX: I48.0 Paroxysmal atrial fibrillation (principal)
CPT/HCPCS: 93306

== ENCOUNTER → 2024-07-11 | Outpatient (CLI) | payer MEDICARE, OTHER, SELFPAY ==
[2024-07-11 12:24] LABS: International Normalized Ratio 3.1; Prothrombin Time (Protime)PT. 31.8 SECONDS (11.7-14.9)
== END | disposition home or self-care (01) ==
LOC: LAB 11:30
PROVIDERS: Referring Provider Internal Medicine Cardiovascular Disease; Visit Provider Internal Medicine Cardiovascular Disease
DX: I48.19 Other persistent atrial fibrillation (principal); Z79.01 Long term (current) use of anticoagulants
CPT/HCPCS: 36415; 85610

== ENCOUNTER → 2024-08-04 | Outpatient (CLI) | payer MEDICARE, OTHER, SELFPAY ==
[2024-08-04 17:01] LABS: Absolute Lymphocyte Count 1.46 X10^3/uL (0.83-4.51); Absolute Neutrophil Count 4.7 X10^3/uL (2.0-7.7); Basophil# 0.05 X10^3/uL; Basophil% 0.7 % (0-1); Eosinophil# 0.21 X10^3/uL; Eosinophils% 2.9 % (0-5); Hematocrit 37.2 % (37-47); Hemoglobin 12.2 g/dL (12.0-15.0); Lymphocyte # 1.46 X10^3/ul (0.83-4.51); Lymphocyte % 19.8 % (19-41); Mean Corp Hgb Conc 32.8 g/dL (32-36); Mean Corpuscular Hgb 29.3 pg (27.0-32.0); Mean Corpuscular Volume 89.2 fL (81-99); Mean Platelet Vol. 11.3 fl (6.2-12.0); Monocyte# 0.87 X10^3/uL; Monocyte% 11.8 % (0-10); NRBC Flagged by Analyzer 0 % (0-5); Neutrophil # 4.73 X10^3/uL (2.7-7.7); Neutrophil % 64.3 % (47-70); Platelet Count 158 K/mm3 (150-450); RBC Distribution Width SD 45.2 fl (35.1-43.9); Red Blood Count 4.17 M/mm3 (4.2-5.4); White Blood Count 7.4 K/mm3 (4.4-11.0)
[2024-08-04 17:06] LABS: Vitamin D,25 Hydroxy 85.5 ng/mL
[2024-08-04 17:09] LABS: Hemoglobin A1c 6.3 % (3.8-5.6)
[2024-08-04 17:10] LABS: AST(SGOT) 28 U/L (15-37); Alanine Aminotransfer ALT/SGPT 32 U/L (13-56); Albumin, Serum 3.3 g/dL (3.2-5.0); Alkaline Phosphatase 79 U/L (45-117); Anion Gap 3 (5-15); BUN 22 mg/dL (7-18); BUN/Creat Ratio 28.7 RATIO (10-20); Calcium,Total 9.2 mg/dL (8.5-10.1); Chloride 112 mmol/L (98-107); Cholesterol 89 mg/dL (200); Creatinine, Serum 0.77 mg/dL (0.55-1.02); EST Glomerular Filtration Rate 77 mL/min (>60); Est Glom Filt Rate - Afr Amer 93 mL/min (>60); Globulin 3.4 g/dL (2.2-4.2); Glucose 204 mg/dL (74-106); High Density Lipoprotein 47 mg/dL; Protein, Total 6.7 g/dL (6.4-8.2); Sodium Level 142 mmol/L (136-145); Triglycerides 122 mg/dL; Very Low Density Lipoprotein 24 mg/dL (5-40)
[2024-08-04 17:23] LABS: Microalbumin,Random Urine 72.1 mg/L (NO RANGE EST.); Microalbumin:Creatinine Ratio 47.7 mg/g CRE (<30 mg/g CRE)
== END | disposition home or self-care (01) ==
LOC: BIMLAB 15:24
PROVIDERS: PCP Internal Medicine; Referring Provider Internal Medicine; Visit Provider Internal Medicine
DX: E78.2 Mixed hyperlipidemia (principal); E11.9 Type 2 diabetes mellitus without complications; E03.9 Hypothyroidism, unspecified; M81.0 Age-related osteoporosis without current pathological fracture
CPT/HCPCS: 36415; 80053; 80061; 82043; 82306; 82570; 83036; 84443; 85025

== ENCOUNTER 2024-08-22 11:16 | Observation (INO) | payer MEDICARE, OTHER, SELFPAY ==
[2024-08-22 11:17] VITALS: BP 116/95; PULSE 87; RESP 18; TEMP 35.7; O2SAT 97
[2024-08-22] MEDS: HYDROcodone Bitartrate/Apap 5/325 Tablet PO (12:28)
[2024-08-22] MEDS: Ondansetron ODT 4 MG Tablet PO (12:28)
--- NOTE | 2024-08-22 12:33 | EX.ED.DYSGE1 ---
HPI History of Present Illness Chief Complaint: Back Narrative Narrative: Patient is a 83-year-old female past medical history of hypothyroidism, type 2 diabetes, mechanical valve on warfarin, hypertension who presented to the emerged part with chief complaint of back pain. Patient states that her back pain started Thursday morning and notes that the only thing she can think of that exacerbated her back pain was Thursday she had a a lot of errands to run and she noted that she got in and out of cars. Patient states that she does not do well with getting in and out of cars and feels like that she flared her back up. States that she took Tylenol for pain control which was not helping. States that her pain was so severe today that she was having difficulty getting up and walking. According to the for member at bedside he is respiratory therapist and is comfortable taking care at home however he notes that he does not have the proper equipment to do so currently and is requesting talk with social work. 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) use of anticoagulants Persistent atrial fibrillation Nonobstructive atherosclerosis of coronary artery Secondary pulmonary arterial hypertension Aortic stenosis with bicuspid valve Essential (primary) hypertension Environmental allergies Hyperlipidemia Paroxysmal atrial fibrillation Rapid atrial fibrillation (12/2019) Diabetes Morbid obesity with BMI of 40.0-44.9, adult Home Medications ?Medication ?Instructions ?Recorded ?Last Taken ?Type magnesium chloride 71.5 mg 71.5 mg PO DAILY ##30 12/26/14 Unknown Rx (magnesium chloride) tablet,delayed release atorvastatin 40 mg tablet 40 mg PO QDAY 12/28/17 Unknown History ergocalciferol (vitamin D2) 1,250 50,000 unit PO QWEEK 12/31/17 Unknown History mcg (50,000 unit) capsule losartan 100 mg tablet 100 mg PO QDAY #90 tabs 09/10/20 Unknown Rx alendronate 70 mg effervescent 70 mg PO QWEEK 09/19/20 Unknown History tablet pen needle, diabetic 32 gauge x #400 ea 10/09/20 Unknown Rx (BD Ultra-Fine Kimber Pen Needle) hydrochlorothiazide 25 mg tablet 25 mg PO DAILY #90 tabs 05/07/21 Unknown Rx levothyroxine 25 mcg capsule 25 mcg PO DAILY 05/07/21 Unknown History cetirizine 5 mg tablet 5 mg PO DAILY PRN 06/01/24 Unknown History furosemide 20 mg tablet 20 mg PO DAILY 06/01/24 Unknown History insulin detemir U-100 100 unit/mL 22 unit subcut DAILY 06/01/24 Unknown History (3 mL) subcutaneous pen metoprolol tartrate 50 mg tablet 100 mg PO BID 06/01/24 Unknown History acetaminophen 650 mg 650 mg PO Q12H PRN 07/28/24 Unknown History tablet,extended release (Tylenol Arthritis Pain) amoxicillin 500 mg capsule 2,000 mg PO ONCE PRN 07/28/24 Unknown History 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 meter,continuous 07/28/24 Unknown History (Repairogen G7 Flight Operations Coordinator) clotrimazole-betamethasone 1 1 applic topical BID PRN 07/28/24 Unknown History %-0.05 % topical cream glucagon HCl 1 mg solution for 1 mg subcut Q20M PRN 07/28/24 Unknown History injection (Glucagon (HCl) Emergency Kit) glucose tablets sublingual PRN 07/28/24 Unknown History insulin aspart U-100 100 unit/mL 12 unit subcut TID 07/28/24 Unknown History (3 mL) subcutaneous pen (Novolog FlexPen U-100 Insulin aspart) insulin degludec 100 unit/mL 16 unit subcut BID 07/28/24 Unknown History subcutaneous solution (Tresiba U-100 Insulin) ketoconazole 2 % shampoo 1 applic topical 2XW PRN 07/28/24 Unknown History ketoconazole 2 % topical cream 1 applic topical QDAY PRN 07/28/24 Unknown History nystatin 100,000 unit/gram topical 1 applic topical BID PRN 07/28/24 Unknown History powder trolamine salicylate 10 % topical 1 applic topical QDAY PRN 07/28/24 Unknown History cream (Myoflex) warfarin 1 mg tablet 8 mg PO DAILY 07/28/24 Unknown History Allergy/AdvReac Type Severity Reaction Status Date / Time acetaminophen (From Excedrin Allergy Intermediate headache Verified 08/22/24 11:19 Migraine) aspirin Allergy Intermediate headache Verified 08/22/24 11:19 caffeine (From Excedrin Allergy Intermediate headache Verified 08/22/24 11:19 Migraine) mold (mold spores) Allergy Intermediate respiratory Verified 08/22/24 11:19 distress lisinopril AdvReac Severe Cough Verified 08/22/24 11:19 monosodium glutamate (msg) AdvReac Intermediate PT UNSURE Verified 08/22/24 11:19 OF REACTION wheat AdvReac Intermediate PT UNSURE Verified 08/22/24 11:19 OF REACTION liraglutide (From Victoza) AdvReac Other Verified 08/22/24 11:19 Family History Father CAD (coronary artery disease) Brother Diabetes Sister Diabetes Breast cancer Hyperlipidemia Hypertension Arthritis Lupus Colon cancer Grandmother CVA (cerebral vascular accident) Grandfather Sudden cardiac Son Atrial fibrillation Mother Arthritis Other High cholesterol Surgical History History of left heart catheterization (03/11/12) History of appendectomy History of hysterectomy History of cholecystectomy Social History adopted: No household members: other details: daughter current occupational status: retired Smoking Status: Never smoker alcohol intake: current alcohol intake frequency: holidays/special occasions only details: wine what type of physical activity do you participate in: none seatbelt use: never do you feel safe at home: No ROS ROS ED ROS Narrative Constitutional: Denies any fevers, chills, headaches, lightness, dizziness Eyes: No change in vision double vision blurry vision Cardiovascular: Denies chest pain or palpitations Respiratory: Denies coughing wheezing shortness of breath Abdomen: Denies abdominal pain nausea vomit diarrhea, states that she has been having normal bowel movements : Denies any painful induration, hematuria, polyuria, difficulty urinating Neurological: Denies numbness, weakness, tingling Musculoskeletal: Complains of back pain as noted above Skin: Denies rashes or lesions EXAM Physical Exam Narrative Exam Narrative: General: Patient lying in bed rest comfortably did not appear to be in acute distress Head: Atraumatic, normocephalic Eyes: PERRL bilateral, EOMI bilateral, no conjunctival injection noted Neck: Soft, supple, trachea midline Cardiovascular: Regular rate and rhythm no murmurs gallops rubs noted Respiratory: Clear to auscultation bilaterally Abdomen: No tenderness palpation Musculoskeletal: No midline tenderness palpation of thoracolumbar spine. Patient has tenderness palpation in the right quadratus lumborum region Extremities: +5/5 strength noted in the bilateral lower extremities, no pedal edema on exam Neurological: Patient follow commands knew that she was at [facility] years 2023. Sensation grossly intact, no saddle anesthesia noted Skin: Warm, dry, tact, Const Vital Signs: 08/22/24 11:17 Temperature 96.3 F L Temperature Source Temporal Pulse Rate 87 Respiratory Rate 18 Blood Pressure 116/95 H Blood Pressure Mean 102 Pulse Ox 97 MDM MDM MDM Narrative Medical decision making narrative: Patient is a 83-year-old female who presents to the emergency department chief complaint of back pain. Patient will have a workup performed here on the differential diagnose includes but not limited to compression fracture, musculoskeletal strain. Once workup is obtained reviewed she will be reevaluated. Patient be given [place], Zofran and be reevaluated. Patient states that she already took Tylenol earlier this morning that did not help her pain. Patient's INR was noted be 3.3, x-ray of her lumbar spine reviewed and showed degenerative change in the spine as detailed above. Patient was ambulated here in the emergency department and had significant pain with ambulation. She states that she does not feel safe going home and having to climb up about 18 steep stairs. She states that she is agreeable with PT/OT evaluation and potential placement. I did discuss case with hospitalist Dr. Morejon who accept patient for admission. Patient was given Valium for pain control. All question concerns answered bedside. Lab Data Labs: Laboratory Results - last 24 hr 08/22/24 13:03 PT 33.0 H INR 3.3 Radiography Diagnostic Testing: Clinical Impression(s) from Imaging Studies Lumbar Spine X-Ray 08/22/24 12:50 IMPRESSION: Degenerative changes of the spine, as detailed above. Electronically Signed: Rei Hodges MD at 13:48 EDT , Discharge Plan Triage Chief Complaint: Back ED Provider: Tay Dc Dx/Rx/DC Orders Clinical Impression: Intractable back pain Prescriptions: No Action atorvastatin 40 mg tablet 40 mg PO QDAY ergocalciferol (vitamin D2) 50,000 unit capsule 50,000 unit PO QWEEK (DME) pen needle, diabetic [BD Ultra-Fine Kimber Pen Needle] 32 gauge x needle See Rx Instructions .ROUTE .MEDSUPPLY Qty: 400 4RF Rx Instructions: 4 times daily warfarin 1 mg tablet 8 mg PO DAILY Protocol: Dose Management Condition: Thursday Dose/Route: 8 mg Instruction: 8 x 1 mg tablets Condition: Thursday Dose/Route: 4 mg Instruction: 4 x 1 mg tablets Condition: Thursday Dose/Route: 8 mg Instruction: 8 x 1 mg tablets Condition: Thursday Dose/Route: 8 mg Instruction: 8 x 1 mg tablets Condition: Dose/Route: 8 mg Instruction: 8 x 1 mg tablets Condition: Thursday Dose/Route: 8 mg Instruction: 8 x 1 mg tablets Condition: Thursday Dose/Route: 8 mg Instruction: 8 x 1 mg tablets Protocol Text: Adjustment Start Date: Thursday08/15/24 INR Value: 4.1 INR Date: 08/15/24 Recheck Date: 08/22/24 Rx Instructions: taking daily x 1wk then will recheck in one week alendronate 70 mg tablet, effervescent 70 mg PO QWEEK levothyroxine 25 mcg capsule 25 mcg PO DAILY hydrochlorothiazide 25 mg tablet 25 mg PO DAILY Qty: 90 3RF insulin aspart U-100 [Novolog FlexPen U-100 Insulin] 100 unit/mL (3 mL) insulin pen 12 unit SC TID Rx Instructions: sliding scale based on blood sugar reading with meals and snacks 4 units with snack reported by patient insulin degludec [Tresiba U-100 Insulin] 100 unit/mL solution 16 unit subcut BID Rx Instructions: AM PM ketoconazole 2 % cream 1 applic topical QDAY PRN Rx Instructions: for psoriasis clotrimazole-betamethasone 1-0.05 % cream 1 applic topical BID PRN Rx Instructions: for psoriasis reported by pt amoxicillin 500 mg capsule 2,000 mg PO ONCE PRN Rx Instructions: 1 hr prior to dental visit trolamine salicylate [Myoflex] 10 % cream 1 applic topical QDAY PRN acetaminophen [Tylenol Arthritis Pain] 650 mg tablet extended release 650 mg PO Q12H PRN glucose tablets sublingual PRN Rx Instructions: for blood glucose below 70 glucagon HCl [Glucagon (HCl) Emergency Kit] 1 mg recon soln 1 mg subcut Q20M PRN Rx Instructions: until target blood sugar attained (DME[facility] See Rx Instructions .ROUTE Rx Instructions: As directed nystatin 100,000 unit/gram powder 1 applic topical BID PRN ketoconazole 2 % shampoo 1 applic topical 2XW PRN furosemide 20 mg tablet 20 mg PO DAILY insulin detemir U-100 100 unit/mL (3 mL) insulin pen 22 unit SC DAILY cetirizine 5 mg tablet 5 mg PO DAILY PRN metoprolol tartrate 50 mg tablet 100 mg PO BID magnesium chloride 71.5 MG tablet,delayed release (DR/EC) 71.5 mg PO DAILY Qty: 30 0RF losartan 100 mg tablet 100 mg PO QDAY Qty: 90 3RF Primary Care Provider: Terrell Schafer Referrals: Terrell Schafer MD [Primary Care Provider] - Print Language: Irish
--- NOTE | 2024-08-22 12:50 | RAD_ITS ---
STUDY: X-RAY - LUMBAR SPINE REASON FOR EXAM: Female, 83 years old. back pain TECHNIQUE: 4 view(s) of the lumbar spine were obtained. COMPARISON: None FINDINGS: Normal lumbar lordosis. There is no substantial scoliosis. 2 mm of anterolisthesis of L4 on L5. There is multilevel endplate spondylosis of the lumbar vertebrae. There is multi-level degenerative disc disease with multi-level disc space narrowing. There is multilevel facet hypertrophy. The soft tissue structures are unremarkable. RAD/L/S Spine Min 4 Views IMPRESSION: Degenerative changes of the spine, as detailed above. Electronically Signed: Rei Hodges MD at 13:48 EDT ,
--- NOTE | 2024-08-22 13:22 | CASEMGMT ---
This RN CM was consulted d/t the pt requesting DME set up. MONROE LARSON to pt room at this time. Pt currently off of the floor getting an XR. Pt son,Jb at bedside. Jb states that he used to be in the medical field. Jb states that the pt is currently living with the pt daughter and that there are too many steps for the pt to handle at her home, in her current state. Pt son states that he feels safe having the pt stay at his home after DC. However, the son states that he has equipment that he needs time to set up, prior to the pt discharging. Pt son denies any acute need for new DME at this time. This RN CM updated the pt RN, Brittany, who states that she is going to collaborate with Dr. Dc about this. Brittany and the pt son have this RN CM number to contact if further needs arise.
[2024-08-22 13:27] LABS: International Normalized Ratio 3.3
[2024-08-22] MEDS: diazePAM 2 MG Tablet PO (15:06)
--- NOTE | 2024-08-22 15:07 | PCM.HP.STD ---
HPI - General General Date of Admission: 08/22/24 Date of Service: 08/22/24 Chief Complaint: Back pain HPI Narrative VASILE MILLER, is a 83 F with a significant history of diabetes mellitus with CKD stage III; bicuspid aortic valve status post bovine TAVR; hypothyroidism; atrial fibrillation on Coumadin; heart valve replacement who presents excruciating pain at her lower back. The pain is at her right waistline. The pain is constant with intermittent sharp pain. The pain can get as worse as 10 out of 10. The pain worsens with getting up and moving the wrong way. The pain improves with walking and sitting still. The pain started 3 days before presentation when she sat on the side of bed. Stating the pain came on because she had multiple trips with a vehicle. Typically she has pain with getting on vitals. She denies any bowel or bladder incontinence. [facility] Medical History Hypothyroidism Type 2 diabetes mellitus Heart valve problem Vitamin deficiency Pneumonia Pancreatitis Murmur, cardiac Hives Generalized headaches Gallstones Cataracts, both eyes Transfusion history group home (current) use of anticoagulants Persistent atrial fibrillation Nonobstructive atherosclerosis of coronary artery Secondary pulmonary arterial hypertension Aortic stenosis with bicuspid valve Essential (primary) hypertension Environmental allergies Hyperlipidemia Paroxysmal atrial fibrillation Rapid atrial fibrillation (12/2019) Diabetes Morbid obesity with BMI of 40.0-44.9, adult Home Medications ?Medication ?Instructions ?Recorded ?Last Taken ?Type magnesium chloride 71.5 mg 71.5 mg PO DAILY SUPPLEMENT ##30 12/26/14 08/21/24 Rx (magnesium chloride) tablet,delayed release atorvastatin 40 mg tablet 40 mg PO DAILY CHOLESTEROL 12/28/17 08/21/24 History ergocalciferol (vitamin D2) 1,250 50,000 unit PO QWEEK 12/31/17 Unknown History mcg (50,000 unit) capsule pen needle, diabetic 32 gauge x #400 ea 10/09/20 Unknown Rx (BD Ultra-Fine Kimber Pen Needle) hydrochlorothiazide 25 mg tablet 25 mg PO DAILY BLOOD PRESSURE #90 05/07/21 08/21/24 Rx tabs levothyroxine 25 mcg capsule 25 mcg PO DAILY THYROID 05/07/21 08/21/24 History cetirizine 5 mg tablet 5 mg PO DAILY PRN ALLERGIES 06/01/24 Unknown History furosemide 20 mg tablet 20 mg PO DAILY EDEMA 06/01/24 08/21/24 History insulin detemir U-100 100 unit/mL 22 unit subcut DAILY 06/01/24 Unknown History (3 mL) subcutaneous pen metoprolol tartrate 50 mg tablet 100 mg PO BID BLOOD PRESSURE 06/01/24 08/22/24 History acetaminophen 650 mg 650 mg PO Q12H PRN PAIN 07/28/24 08/21/24 History tablet,extended release (Tylenol Arthritis Pain) amoxicillin 500 mg capsule 2,000 mg PO ONCE PRN DENTAL 07/28/24 Unknown History 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 meter,continuous 07/28/24 Unknown History (Dexcom G7 Perinatal Tech) glucagon HCl 1 mg solution for 1 mg subcut Q20M PRN HYPOGLYCEMIA 07/28/24 Unknown History injection (Glucagon (HCl) Emergency Kit) insulin aspart U-100 100 unit/mL 12 unit subcut TID DIABETES 07/28/24 08/21/24 History (3 mL) subcutaneous pen (Novolog FlexPen U-100 Insulin aspart) nystatin 100,000 unit/gram topical 1 applic topical BID PRN FUNGAL 07/28/24 Unknown History powder INFECTION trolamine salicylate 10 % topical 1 applic topical DAILY PRN 07/28/24 Unknown History cream (Myoflex) ARTHRITIS warfarin 1 mg tablet 8 mg PO DAILY BLOOD THINNER 07/28/24 08/21/24 History alendronate 70 mg tablet 70 mg PO QWEEK OSTEOPEROSIS 08/22/24 Unknown History clotrimazole-betamethasone 1 1 applic topical BID PRN FUNGAL 08/22/24 Unknown History %-0.05 % topical cream INFECTION insulin degludec 100 unit/mL (3 16 unit subcut BID DIABETES 08/22/24 Unknown History mL) subcutaneous pen (Tresiba FlexTouch U-100 insulin) ketoconazole 2 % shampoo 1 applic topical UD PRN FUNGAL 08/22/24 Unknown History INFECTION ketoconazole 2 % topical cream 1 applic topical DAILY PRN FUNGAL 08/22/24 Unknown History INFECTION losartan 100 mg tablet 100 mg PO DAILY BLOOD PRESSURE 08/22/24 08/21/24 History Allergy/AdvReac Type Severity Reaction Status Date / Time acetaminophen (From Excedrin Allergy Intermediate headache Verified 08/22/24 11:19 Migraine) aspirin Allergy Intermediate headache Verified 08/22/24 11:19 caffeine (From Excedrin Allergy Intermediate headache Verified 08/22/24 11:19 Migraine) mold (mold spores) Allergy Intermediate respiratory Verified 08/22/24 11:19 distress lisinopril AdvReac Severe Cough Verified 08/22/24 11:19 monosodium glutamate (msg) AdvReac Intermediate PT UNSURE Verified 08/22/24 11:19 OF REACTION wheat AdvReac Intermediate PT UNSURE Verified 08/22/24 11:19 OF REACTION liraglutide (From Victoza) AdvReac Other Verified 08/22/24 11:19 Family History Father CAD (coronary artery disease) Brother Diabetes Sister Diabetes Breast cancer Hyperlipidemia Hypertension Arthritis Lupus Colon cancer Grandmother CVA (cerebral vascular accident) Grandfather Sudden cardiac Son Atrial fibrillation Mother Arthritis Other High cholesterol Surgical History History of left heart catheterization (03/11/12) History of appendectomy History of hysterectomy History of cholecystectomy Social History adopted: No household members: other details: daughter current occupational status: retired Smoking Status: Never smoker alcohol intake: current alcohol intake frequency: holidays/special occasions only details: wine what type of physical activity do you participate in: none seatbelt use: never do you feel safe at home: No ROS ROS Narrative Pertinent positives and pertinent negatives as noted in HPI. All other systems were reviewed and are negative Vital Signs Vital Signs Vital Signs: 08/22/24 11:17 Temperature 96.3 F L Temperature Source Temporal Pulse Rate 87 Respiratory Rate 18 Blood Pressure 116/95 H Blood Pressure Mean 102 Pulse Ox 97 Physical Exam Narrative Physical exam: General: Well-nourished, well-developed. Head: Normocephalic, atraumatic, no tenderness Eyes: Vision is grossly intact. EOMI ENT, no trauma, moist mucous membranes, no rhinorrhea Neck: Nontender, No thyromegaly. CVS: Irregularly irregular rate and rhythm. S1-S2 present. No murmur, gallop or rub. Respiratory : clear to auscultation bilaterally, chest wall nontender Abdomen: Soft, nontender, nondistended, normal bowel sounds, no masses : Deferred Back: Nontender, no CVA tenderness, no midline spinal tenderness, deformities, step-offs Extremities: Nontender full range of motion, no trauma Skin: Normal color, no trauma, abrasions Neuro: Alert, oriented, cranial nerves II through XII grossly intact. Psychiatry: Normal mood. Normal affect. Not depressed. Not anxious. Results Lab / Micro Data Labs: Laboratory Results - last 24 hr 08/22/24 13:03: PT 33.0 H, INR 3.3 Imaging Radiology Impression Lumbar Spine X-Ray 08/22/24 12:50 IMPRESSION: Degenerative changes of the spine, as detailed above. Electronically Signed: Rei Hodges MD at 13:48 EDT , Assessment & Plan Assessment/Plan (1) Intractable back pain: (2) Type 2 diabetes mellitus: QUALIFIERS: Diabetes mellitus [facility] insulin use: with [facility] use Diabetes mellitus complication status: with kidney complications Diabetes mellitus complication detail: with chronic kidney disease Chronic kidney disease stage: stage 3 (moderate) Chronic kidney disease stage 3 subtype: stage 3b (GFR 30-44) Qualified Code(s): E11.22 - Type 2 diabetes mellitus with diabetic chronic kidney disease; N18.32 - Chronic kidney disease, stage 3b; 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 Daily INR. Coumadin dose de-escalated. Accu-Cheks correction scale insulin ordered. De-escalates at home based on insulin. Home Lasix continued. Trend BMP Advance care planning: Discussed with patient and family advanced directives as well as CODE STATUS. Explained various CODE STATUS: FULL CODE, DNR CCA, DNR CCA with no intubation, and DNR CC- and what each meant. Patient elected to be a full code with CPR and intubation if warranted. Order was placed. Patient's son, Jb iMller II is surrogate decision maker. Time spent on discussion 16 minutes. Time spent in the patient's overall evaluation,decision-making process, review of diagnostic data, adjustment of management, discussion with other providers, nursing and ancillary staff involved in patient's care documentation, 75 minutes. Charges/Coding Visit Charges Inpatient E&M: 45203 Init Hosp L3 Procedures Hospitalists Procedures: 21438 Advncd Care Plan 30 Min
[2024-08-22 15:16] VITALS: BP 139/87
[2024-08-22 15:50] LABS: Bedside Glucose 158 mg/dL (74-106)
[2024-08-22 16:01] VITALS: BP 139/87; PULSE 87; RESP 16; TEMP 36.1; O2SAT 99
[2024-08-22] MEDS: Ketorolac 15 MG/ML Vial IV (18:39)
[2024-08-22] MEDS: Morphine 2 MG/ML Syringe IV (18:39)
[2024-08-22 19:04] VITALS: BMI 39.6
[2024-08-22] MEDS: Insulin Lispro 100 UNIT/ML INSULN.PEN SC (20:27)
[2024-08-22] MEDS: Atorvastatin Calcium 40 MG Tablet PO (20:28)
[2024-08-22] MEDS: 0.9% Saline Lock 10 ML Syringe IV (20:28)
[2024-08-22 20:32] VITALS: BP 141/78; PULSE 87; RESP 18; TEMP 36.6; O2SAT 97
[2024-08-22 20:34] VITALS: BP 141/78; PULSE 87
[2024-08-22] MEDS: Metoprolol Tartrate 100 MG Tablet PO (20:34)
[2024-08-22 22:12] LABS: Bedside Glucose 237 mg/dL (74-106)
[2024-08-23 02:45] VITALS: BP 118/66; PULSE 91; RESP 18; TEMP 36.6; O2SAT 94
[2024-08-23] MEDS: Levothyroxine 25 MCG TABLET PO (04:29)
[2024-08-23] MEDS: Insulin Lispro 100 UNIT/ML INSULN.PEN SC ×3 (06:23→16:49)
[2024-08-23 06:42] LABS: Bedside Glucose 159 mg/dL (74-106)
[2024-08-23 07:20] LABS: Absolute Lymphocyte Count 1.27 X10^3/uL (0.83-4.51); Absolute Neutrophil Count 4.3 X10^3/uL (2.0-7.7); Basophil# 0.03 X10^3/uL; Basophil% 0.5 % (0-1); Eosinophil# 0.14 X10^3/uL; Eosinophils% 2.1 % (0-5); Hematocrit 34.3 % (37-47); Hemoglobin 11.1 g/dL (12.0-15.0); Lymphocyte # 1.27 X10^3/ul (0.83-4.51); Lymphocyte % 19.2 % (19-41); Mean Corp Hgb Conc 32.4 g/dL (32-36); Mean Corpuscular Hgb 29.6 pg (27.0-32.0); Mean Corpuscular Volume 91.5 fL (81-99); Monocyte# 0.82 X10^3/uL; Monocyte% 12.4 % (0-10); NRBC Flagged by Analyzer 0 % (0-5); Neutrophil # 4.32 X10^3/uL (2.7-7.7); Platelet Count 121 K/mm3 (150-450); RBC Distribution Width CV 14.4 % (11.6-14.6); Red Blood Count 3.75 M/mm3 (4.2-5.4); White Blood Count 6.6 K/mm3 (4.4-11.0)
[2024-08-23 07:29] LABS: International Normalized Ratio 3.2; Prothrombin Time (Protime)PT. 32.2 SECONDS (11.7-14.9)
[2024-08-23 07:36] LABS: Anion Gap 6 (5-15); BUN 27 mg/dL (7-18); BUN/Creat Ratio 38.1 RATIO (10-20); Calcium,Total 8.9 mg/dL (8.5-10.1); Chloride 112 mmol/L (98-107); Creatinine, Serum 0.71 mg/dL (0.55-1.02); EST Glomerular Filtration Rate 84 mL/min (>60); Est Glom Filt Rate - Afr Amer 102 mL/min (>60); Estimated Creatinine Clearance 66.23 ml/min; Glucose 170 mg/dL (74-106); Potassium 4.1 mmol/L (3.5-5.1); Sodium Level 143 mmol/L (136-145)
[2024-08-23 08:00] VITALS: O2SAT 97
[2024-08-23] MEDS: Furosemide 20 MG Tablet PO (08:23)
[2024-08-23] MEDS: 0.9% Saline Lock 10 ML Syringe IV (08:23)
[2024-08-23] MEDS: Acetaminophen 500 MG Tablet 1000 MG PO ×2 (08:23→14:15)
[2024-08-23] MEDS: Losartan Potassium 100 MG Tablet PO (08:23)
[2024-08-23] MEDS: Gabapentin 100 MG Capsule PO ×2 (08:23→11:22)
[2024-08-23] MEDS: tiZANidine HCl 2 MG Tablet PO ×2 (08:23→14:15)
[2024-08-23 08:24] VITALS: BP 136/78; PULSE 82
[2024-08-23] MEDS: hydroCHLOROthiazide 25 MG Tablet PO (08:24)
[2024-08-23] MEDS: Metoprolol Tartrate 100 MG Tablet PO (08:24)
[2024-08-23] MEDS: Magnesium Chloride 64 MG Delay Rel.Tablet 128 MG PO (08:27)
[2024-08-23] MEDS: FLU VACCINE **HIGH DOSE** TV 24-25 180 MCG/0.5 ML SYRINGE IM (08:27)
[2024-08-23 08:45] VITALS: BP 122/72; PULSE 88; RESP 16; TEMP 36.6; O2SAT 95
[2024-08-23 12:01] LABS: Bedside Glucose 222 mg/dL (74-106)
[2024-08-23 12:33] LABS: Mucous, Urine 0 SEEN /hpf (<or=2+); Red Blood Cells-Urine 0 SEEN /hpf (0-5)
[2024-08-23 12:45] LABS: Color, Urine Yellow (Yellow); Glucose, Dipstick Normal (Normal); Ketone-Dipstick Negative (Negative); Leukocyte Esterase-Dipstick 25 /ul (Negative); Nitrite-Dipstick Negative (Negative); Occult Blood-Urine Negative /ul (Negative); Protein-Dipstick Negative (Negative); Specific Gravity, Urine 1.015 (1.002-1.030); Urine Bilirubin Dipstick Negative (Negative); Urine Clarity Sl. Cloudy (Clear); Urine Urobilinogen Normal (Normal)
--- NOTE | 2024-08-23 12:55 | CASEMGMT ---
MONROE CM into pt room, pt sitting up in chair with nephew at bedside. Pt agreeable to discuss dc planning with nephew present. He left mid assessment. Pt states she is currently living with her dtr, niece and nephew in [place]. She states there are 18-19 steps to enter with a rail. She is contemplating moving in to the farm with her son that is here in [place] where there are no steps. Pt states her son needs time to get all the equipment out of the barn from her late . They have the following DME: 2 walkers, 1 rollator, sit to stand, hospital bed, azucena lift and knee scooter. Pt dtr works 6-7 days/wk from 5am to 2:20pm. Pt reports she is I in ADLs and her family assists with IADLs. Pt states she was fine until she had back pain. Pt does not drive, her son or dtr transports her to medical appts. TC to pt son Jb on speakerphone while in room. Pt son states whatever the pt wants to do, he will make happen. Pt states she will go back to her dtr's home until Jb can get the equipment ready out of the barn and into pt bedroom. Pt son will transport her to his sister's home. Pt and son deny any need for equipment or HHC or outpt therapy. Pt states she needs to see if her back pain continues first. She is aware that she can contact her PCP for HHC or outpt therapy should she change her mind once home or to her son's home. Pt has had HHC when she lived in [place] but not in [place], she denies SNF stays. Pt and son request either pain medication or a muscle relaxer upon homegoing. Message to hospitalist to make aware of dc plan and request for medication. Pt ambulated 350 feet with therapy this date. All in agreement with dc plan. DC Plan: Son to transport pt to her dtr's home in [place] until he is ready for pt to live with him.
[2024-08-23 13:04] LABS: Bacteria 1+ /hpf (None Seen); Squamous Epithelial Cells - UA 0-5 SEEN /hpf (5-10); White Blood Cells 0-5 SEEN /hpf (0-5)
--- NOTE | 2024-08-23 14:14 | DS.PCM_ITS ---
Providers Date of Admission: 08/22/24 Date of Discharge: 08/23/24 Primary Care Physician: Dr. Terrell Schfaer MD Reason For Visit: INTRACTABLE BACK Diagnosis Discharge Diagnosis (1) Intractable back pain: Status: Acute Code(s): M54.9 - Dorsalgia, unspecified (2) Type 2 diabetes mellitus: Status: Chronic Code(s): E11.9 - Type 2 diabetes mellitus without complications Qualifiers: Diabetes mellitus retirement insulin use: with retirement use Diabetes mellitus complication status: with kidney complications Diabetes mellitus complication detail: with chronic kidney disease Chronic kidney disease stage: stage 3 (moderate) Chronic kidney disease stage 3 subtype: stage 3b (GFR 30-44) Qualified Code(s): E11.22 - Type 2 diabetes mellitus with diabetic chronic kidney disease; N18.32 - Chronic kidney disease, stage 3b; Z79.4 - oil heaterman (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) use of insulin (3) Heart valve transplant recipient: Status: Acute Code(s): Z95.2 - Presence of prosthetic heart valve (4) Atrial fibrillation: Status: Acute Code(s): I48.91 - Unspecified atrial fibrillation Qualifiers: Atrial fibrillation type: persistent (not longstanding) Qualified Code(s): I48.19 - Other persistent atrial fibrillation (5) S/P TAVR (transcatheter aortic valve replacement): Status: Acute Code(s): Z95.2 - Presence of prosthetic heart valve (6) Secondary pulmonary arterial hypertension: Status: Chronic Code(s): I27.21 - Secondary pulmonary arterial hypertension (7) Hypercoagulable state due to atrial fibrillation: Status: Acute Code(s): D68.69 - Other thrombophilia; I48.91 - Unspecified atrial fibrillation (8) Supratherapeutic INR: Status: Acute Code(s): R79.1 - Abnormal coagulation profile Medications at Discharge Home Medications atorvastatin 40 mg tablet 40 mg PO DAILY CHOLESTEROL 12/28/17 ergocalciferol (vitamin D2) 1,250 mcg (50,000 unit) capsule 50,000 unit PO QWEEK 12/31/17 pen needle, diabetic 32 gauge x 5/32 (BD Ultra-Fine Kimber Pen Needle) #400 ea 10/09/20 hydrochlorothiazide 25 mg tablet 25 mg PO DAILY BLOOD PRESSURE #90 tabs 05/07/21 levothyroxine 25 mcg capsule 25 mcg PO DAILY THYROID 05/07/21 cetirizine 5 mg tablet 5 mg PO DAILY ALLERGIES 06/01/24 furosemide 20 mg tablet 20 mg PO DAILY EDEMA 06/01/24 insulin detemir U-100 100 unit/mL (3 mL) subcutaneous pen 22 unit subcut DAILY 06/01/24 metoprolol tartrate 50 mg tablet 100 mg PO BID BLOOD PRESSURE 06/01/24 acetaminophen 650 mg tablet,extended release (Tylenol Arthritis Pain) 650 mg PO Q12H PRN PAIN 07/28/24 amoxicillin 500 mg capsule 2,000 mg PO ONCE PRN DENTAL APPOINTMENTS 07/28/24 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 meter,continuous (Dexcom G7 Optomechanical Engineer) 07/28/24 glucagon HCl 1 mg solution for injection (Glucagon (HCl) Emergency Kit) 1 mg subcut Q20M PRN HYPOGLYCEMIA 07/28/24 insulin aspart U-100 100 unit/mL (3 mL) subcutaneous pen (Novolog FlexPen U-100 Insulin aspart) 12 unit subcut TID DIABETES 07/28/24 nystatin 100,000 unit/gram topical powder 1 applic topical BID PRN FUNGAL INFECTION 07/28/24 trolamine salicylate 10 % topical cream (Myoflex) 1 applic topical DAILY PRN ARTHRITIS 07/28/24 warfarin 1 mg tablet 8 mg PO DAILY BLOOD THINNER 07/28/24 alendronate 70 mg tablet 70 mg PO QWEEK OSTEOPEROSIS 08/22/24 clotrimazole-betamethasone 1 %-0.05 % topical cream 1 applic topical BID PRN FUNGAL INFECTION 08/22/24 insulin degludec 100 unit/mL (3 mL) subcutaneous pen (Tresiba FlexTouch U-100 insulin) 16 unit subcut BID DIABETES 08/22/24 ketoconazole 2 % shampoo 1 applic topical UD PRN FUNGAL INFECTION 08/22/24 ketoconazole 2 % topical cream 1 applic topical DAILY PRN FUNGAL INFECTION 08/22/24 losartan 100 mg tablet 100 mg PO DAILY BLOOD PRESSURE 08/22/24 magnesium chloride 71.5 mg (magnesium chloride) tablet,delayed release 143 mg PO DAILY SUPPLEMENT 08/22/24 acetaminophen 500 mg tablet 1,000 mg (2 x 500 mg) PO Q8 #0 tabs 08/23/24 gabapentin 100 mg capsule 100 mg PO TIDCM #42 caps 08/23/24 oxycodone 5 mg tablet 5 mg PO Q6H PRN pain 5 days #20 tabs 08/23/24 sennosides 8.6 mg-docusate sodium 50 mg tablet (Stimulant Laxative Plus) 2 tab PO BID PRN PRN Constipation #30 tabs 08/23/24 tizanidine 2 mg tablet 2 mg PO Q8 PRN muscle spasticity #15 tabs 08/23/24 Hospital Course Procedures - (Lumbar spine x-ray) Summary of Care Provided Minutes Spent on Discharge: 25 Hospital Course: Patient is an 83-year-old white female who presented to the emergency department at [facility] on 08/22/2024 due to intractable back pain. On presentation she stated that it was excruciating in her low back just to the right of her waistline. The pain was intermittent and sharp with no radiation. She indicated that it typically occurred when she would get up and move the wrong way. She stated it improved with walking and sitting still. Pain started about 3 days prior to presentation when she sat on the side of the bed. She indicated she had been doing a lot of sitting's with multiple trips in a vehicle. She does have a history of chronic back pain but this is different than her baseline. She denied any changes in her bowel or bladder function and had no radiating symptoms into her legs. Vital signs on presentation were unremarkable. CBC was overtly unremarkable when compared to previous other than some mild thrombocytopenia and anemia. Anemia appears to be stable chronic however thrombocytopenia is mild but new. INR was 3.2. Chemistry panel was unremarkable other than a blood glucose level of 170. UA was unremarkable. Lumbar spine films showed normal lumbar lordosis with no substantial scoliosis, 2 mm of anterior listhesis of L4 on L5 and multilevel endplate spondylosis of the lumbar vertebrae with degenerative disc disease and multilevel facet hypertrophy. No significant straw structures were noted to be abnormal on plain films. She was admitted as observation to the medical floor and placed on pain regimen. She was seen by physical and Occupational Therapy. On the day of discharge she was able to walk 250 feet with therapy utilizing a walker. The nursing case management wet with the patient and talk to her son. Her son indicated that he does not need any resources at home and we will get her set up to stay with him. They denied the need for physical therapy or home health care at the time of discharge despite this being recommended but did indicate they would call their primary care physician if desired when she gets home. I have also made a referral to orthopedics just in case her pain does not continue to get better with rest and medication. We have advised her to take Tylenol 1000 mg 3 times daily and given her a short-term prescription for oxycodone as well as muscle relaxants over a 5-day period. She was discharged home with family in stable condition on 08/23/2024. INR was 3.2 at the time of discharge and 3.3 on admission. No changes were made in her Coumadin but I have asked her to get a repeat INR in 5 days. Discharge diagnoses: Intractable back pain Aortic valve stenosis status post TAVR Secondary pulmonary hypertension DM-2 Osteoporosis Essential hypertension Hypothyroidism Vitamin D deficiency Hyperlipidemia Obesity Osteoporosis Physical Exam Const alert, oriented x3, no apparent distress, no limitations and well nourished; Negative for average body habitus or healthy appearing Constitutional Narrative: Morbidly obese, white female, sitting up in bed, older, appears comfortable currently, nontoxic General Appearance: cooperative, comfortable, well kempt and well developed Orientation / Consciousness: awake, oriented to person, oriented to place and oriented to time Exam Limitations: no limitations Nutritional Appearance: obese HEENT normocephalic, head/scalp atraumatic and moist oral mucous membranes HEENT Narrative: Moderate hearing loss, dentures in place Resp normal respiratory effort, no retractions, no use of accessory muscles and clear to auscultation bilaterally Auscultation: Negative for rales, rhonchi or wheezes Cardio regular rate, regular rhythm, S1 normal heart sound, S2 normal heart sound, no murmurs, no rub, no gallops and no clicks GI normal to inspection, nondistended, normoactive bowel sounds, soft to palpation and non-tender GI Narrative: Large protuberant abdomen Extremity no clubbing, cyanosis or edema Neuro oriented x3 and moves all extremities Neuro Narrative: No sensory changes, no significant strength abnormalities that are focal in lower extremities Speech: speech normal Psych affect normal Weight / BMI Weight Weight: 107.955 kg Body Mass Index (BMI) 39.6 ABG / Lab / Microbiology Data 08/23/24 06:38 08/23/24 06:38 Laboratory: Laboratory Results - last 24 hr 08/22/24 15:32: POC Glucose 158 H 08/22/24 20:17: POC Glucose 237 H 08/23/24 06:22: POC Glucose 159 H 08/23/24 06:38: WBC 6.6, RBC 3.75 L, Hgb 11.1 L, Hct 34.3 L, MCV 91.5, MCH 29.6, MCHC 32.4, RDW Std Deviation 48.0 H, RDW Coeff of [place] 14.4, Plt Count 121 L, MPV 11.0, Immature Gran % (Auto) 0.800, Neut % (Auto) 65.0, Lymph % (Auto) 19.2, M matty % (Auto) 12.4 H, Eos % (Auto) 2.1, Baso % (Auto) 0.5, Absolute Neuts (auto) 4.3, Absolute Lymphs (auto) 1.27, Nucleated RBC % 0, PT 32.2 H, INR 3.2, Sodium 143, Potassium 4.1, Chloride 112 H, Carbon Dioxide 25.0, Anion Gap 6, BUN 27 H, Creatinine 0.71, Estim Creat Clear Calc 66.23, Est GFR (MDRD) Af Amer 102, Est GFR (MDRD) Non-Af 84, BUN/Creatinine Ratio 38.1 H, Glucose 170 H, Calcium 8.9 08/23/24 11:18: POC Glucose 222 H 08/23/24 11:33: Urine Color Yellow, Urine Clarity Sl. Cloudy, Urine pH 6.0, Ur Specific [place] 1.015, Urine Protein Negative, Urine Glucose (UA) Normal, Urine Ketones Negative, Urine Occult Blood Negative, Urine Nitrite Negative, Urine Bilirubin Negative, Urine Urobilinogen Normal, Ur Leukocyte Esterase 25 H, Urine RBC 0 SEEN, Urine WBC 0-5 SEEN, Ur Squamous Epith Cells 0-5 SEEN, Urine Bacteria 1+, Urine Mucus 0 SEEN D/C Instructions Discharge Diet: Low fat / Low cholesterol and 1800 Calorie Control Diet Discharge Activity: No Restrictions and Use Walker Meaningful Use Info Meaningful Use Meaningful Use Diagnoses (Choose all that apply): None applicable Ischemic Stroke Statin Dosing Therapy Reference: STATIN DOSE THERAPY REFERENCE: * Patients > 75 years receive moderate or high dose statin therapy. * Patients 75 years or YOUNGER should receive HIGH intensity statin dose unless contraindicated. You will be required to document reason for non-treatment if statin daily dose does not meet guidelines. HIGH DOSE STATIN THERAPY DAILY Atorvastatin > than or = to 40 mg Rosuvastatin > than or = to 20 mg Amlodipine + Atorvastatin > than or = to 2.5/40 mg Ezetimibe + Simvastatin 10/80 mg Simvastatin 80mg Discharge Plan Admission Admit Date/Time: 08/22/24 14:57 Primary Reason for Your Visit: Back Pain Attending Provider: Michelle Hernández Primary Care Provider: Terrell Schafer Consulting Providers: Manolo Morejon Additional Instructions / Restrictions: 1. Your INR was 3.2 at the time of discharge. Please get a repeat INR in the next 3 to 5 days due to this being slightly higher than your 2-3 range. We will not make any changes in your Coumadin for now. 2. If your pain does not improve, please consider physical therapy as an outpatient and call your primary care physician or call the orthopedic spinal surgeon below for follow-up as an outpatient. Discharge Orders/Prescriptions Prescriptions: New acetaminophen 500 mg Tablet 1,000 mg PO Q8 Qty: 0 0RF Rx Instructions: Take it this way for 14 days gabapentin 100 mg Capsule 100 mg PO TIDCM Qty: 42 0RF oxycodone 5 mg Tablet 5 mg PO Q6H PRN (Reason: pain) 5 Days Qty: 20 0RF tizanidine 2 mg Tablet 2 mg PO Q8 PRN (Reason: muscle spasticity) Qty: 15 0RF sennosides-docusate sodium [Stimulant Laxative Plus] 8.6-50 mg Tablet 2 tab PO BID PRN PRN (Reason: Constipation) Qty: 30 0RF Continued atorvastatin 40 mg tablet 40 mg PO DAILY ergocalciferol (vitamin D2) 50,000 unit capsule 50,000 unit PO QWEEK (DME) pen needle, diabetic [BD Ultra-Fine Kimber Pen Needle] 32 gauge x 5/32 needle See Rx Instructions .ROUTE .MEDSUPPLY Qty: 400 4RF Rx Instructions: 4 times daily warfarin 1 mg tablet 8 mg PO DAILY Protocol: Dose Management Condition: Thursday Dose/Route: 8 mg Instruction: 8 x 1 mg tablets Condition: Thursday Dose/Route: 4 mg Instruction: 4 x 1 mg tablets Condition: Thursday Dose/Route: 8 mg Instruction: 8 x 1 mg tablets Condition: Thursday Dose/Route: 8 mg Instruction: 8 x 1 mg tablets Condition: Dose/Route: 8 mg Instruction: 8 x 1 mg tablets Condition: Thursday Dose/Route: 8 mg Instruction: 8 x 1 mg tablets Condition: Thursday Dose/Route: 8 mg Instruction: 8 x 1 mg tablets Protocol Text: Adjustment Start Date: Thursday08/15/24 INR Value: 4.1 INR Date: 08/15/24 Recheck Date: 08/22/24 Rx Instructions: taking daily x 1wk then will recheck in one week levothyroxine 25 mcg capsule 25 mcg PO DAILY hydrochlorothiazide 25 mg tablet 25 mg PO DAILY Qty: 90 3RF insulin aspart U-100 [Novolog FlexPen U-100 Insulin] 100 unit/mL (3 mL) insulin pen 12 unit SC TID Patient Comments: PT HAS SLIDING SCALE DIRECTIONS AT HOME ( OF 08/22/2024) Rx Instructions: sliding scale based on blood sugar reading with meals and snacks 4 units with snack reported by patient amoxicillin 500 mg capsule 2,000 mg PO ONCE PRN (Reason: DENTAL APPOINTMENTS ) Rx Instructions: 1 hr prior to dental visit trolamine salicylate [Myoflex] 10 % cream 1 applic topical DAILY PRN (Reason: ARTHRITIS ) glucagon HCl [Glucagon (HCl) Emergency Kit] 1 mg recon soln 1 mg subcut Q20M PRN (Reason: HYPOGLYCEMIA ) Rx Instructions: until target blood sugar attained (DME) Dexcom G7 Optomechanical Engineer [facility] See Rx Instructions .ROUTE Rx Instructions: As directed nystatin 100,000 unit/gram powder 1 applic topical BID PRN (Reason: FUNGAL INFECTION ) furosemide 20 mg tablet 20 mg PO DAILY cetirizine 5 mg tablet 5 mg PO DAILY metoprolol tartrate 50 mg tablet 100 mg PO BID alendronate 70 mg tablet 70 mg PO QWEEK clotrimazole-betamethasone 1-0.05 % cream 1 applic TOPICAL BID PRN (Reason: FUNGAL INFECTION ) ketoconazole 2 % shampoo 1 applic topical UD PRN (Reason: FUNGAL INFECTION ) Rx Instructions: APPLY SHAMPOO TOPICALLY TWICE A WEEK NEEDED ketoconazole 2 % cream 1 applic topical DAILY PRN (Reason: FUNGAL INFECTION ) losartan 100 mg tablet 100 mg PO DAILY magnesium chloride 71.5 MG tablet,delayed release (DR/EC) 143 mg PO DAILY Held acetaminophen [Tylenol Arthritis Pain] 650 mg tablet extended release 650 mg PO Q12H PRN (Reason: PAIN ) Hold Instructions: UNTIL NOT TAKING SCHEDULED DOSING insulin detemir U-100 100 unit/mL (3 mL) insulin pen 22 unit SC DAILY Hold Instructions: Until instructed to start by endocrinology insulin degludec [Tresiba FlexTouch U-100] 100 unit/mL (3 mL) insulin pen 16 unit subcut BID Hold Instructions: Until instructed to restart by endocrinology Referrals / Follow Up: Ronaldo Cameron MD [Med Staff - Active Staff] - See Referral Note (as needed for back) Terrell Schafer MD [Primary Care Provider] - Within 2 Weeks Disposition Disposition (needs filled in before D/C Order can be placed): Home, Self Care Charges/Coding Visit Charges Inpatient E&M: 22795 Disch Hosp
--- NOTE | 2024-08-23 14:59 | CHAPLAIN ---
Type of Pastoral Visit _x__ Initial Visit ___ Follow-up Visit ___ On-call Visit ___ General Patient Visit ___ Spiritual Assessment ___ Family Conference ___ Bereavement ___ Rapid Response ___ Code Blue ___ Other (describe below) Pastoral Care Referral From _x__ Patient ___ Family ___ Nurse ___ Physician ___ Personnel Security Assistant ___ Drawer In ___ Other (describe below) Sacrament/Intervention _x__ Active listening ___ Anointing ___ Jehovah'S Witness ___ Bereavement ___ Communion ___ Ysabel exploration ___ _x__ Life review _x__ Prayer ___ Reconciliation ___ Sacrament of Sick ___ Supportive presence ___ Wedding ___ Other (describe below) Pastoral Comments patient states that she has had progress and the hope of going home; pt is talkative and expresses concerns over family, many losses in recent months including a sister in past two weeks, and life review; pt is given time to express her thoughts and feelings, requests for prayer, and support for going home
[2024-08-23 16:29] VITALS: BP 130/56; PULSE 79; RESP 16; TEMP 36.6; O2SAT 94
--- NOTE | 2024-08-23 16:34 | PHA.DC_ITS ---
Pharmacy [place] Med Reconciliation Pharmacy Service has performed discharge medication reconciliation for this patient. Medication education papers prepared, attempted to genetic counselor x2, pt sleeping. Medications reviewed. The patient's discharge medication list was reviewed for discrepancies and discrepancies were resolved. Medications at Discharge Home Medications atorvastatin 40 mg tablet 40 mg PO DAILY CHOLESTEROL 12/28/17 ergocalciferol (vitamin D2) 1,250 mcg (50,000 unit) capsule 50,000 unit PO QWEEK 12/31/17 pen needle, diabetic 32 gauge x 5/32 (BD Ultra-Fine Kimber Pen Needle) #400 ea 10/09/20 hydrochlorothiazide 25 mg tablet 25 mg PO DAILY BLOOD PRESSURE #90 tabs 05/07/21 levothyroxine 25 mcg capsule 25 mcg PO DAILY THYROID 05/07/21 cetirizine 5 mg tablet 5 mg PO DAILY ALLERGIES 06/01/24 furosemide 20 mg tablet 20 mg PO DAILY EDEMA 06/01/24 insulin detemir U-100 100 unit/mL (3 mL) subcutaneous pen 22 unit subcut DAILY 06/01/24 metoprolol tartrate 50 mg tablet 100 mg PO BID BLOOD PRESSURE 06/01/24 acetaminophen 650 mg tablet,extended release (Tylenol Arthritis Pain) 650 mg PO Q12H PRN PAIN 07/28/24 amoxicillin 500 mg capsule 2,000 mg PO ONCE PRN DENTAL APPOINTMENTS 07/28/24 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 meter,continuous ([employer] G7 Camp Manager) 07/28/24 glucagon HCl 1 mg solution for injection (Glucagon (HCl) Emergency Kit) 1 mg subcut Q20M PRN HYPOGLYCEMIA 07/28/24 insulin aspart U-100 100 unit/mL (3 mL) subcutaneous pen (Novolog FlexPen U-100 Insulin aspart) 12 unit subcut TID DIABETES 07/28/24 nystatin 100,000 unit/gram topical powder 1 applic topical BID PRN FUNGAL INFECTION 07/28/24 trolamine salicylate 10 % topical cream (Myoflex) 1 applic topical DAILY PRN ARTHRITIS 07/28/24 warfarin 1 mg tablet 8 mg PO DAILY BLOOD THINNER 07/28/24 alendronate 70 mg tablet 70 mg PO QWEEK OSTEOPEROSIS 08/22/24 clotrimazole-betamethasone 1 %-0.05 % topical cream 1 applic topical BID PRN FUNGAL INFECTION 08/22/24 insulin degludec 100 unit/mL (3 mL) subcutaneous pen (Tresiba FlexTouch U-100 insulin) 16 unit subcut BID DIABETES 08/22/24 ketoconazole 2 % shampoo 1 applic topical UD PRN FUNGAL INFECTION 08/22/24 ketoconazole 2 % topical cream 1 applic topical DAILY PRN FUNGAL INFECTION 08/22/24 losartan 100 mg tablet 100 mg PO DAILY BLOOD PRESSURE 08/22/24 magnesium chloride 71.5 mg (magnesium chloride) tablet,delayed release 143 mg PO DAILY SUPPLEMENT 08/22/24 acetaminophen 500 mg tablet 1,000 mg (2 x 500 mg) PO Q8 #0 tabs 08/23/24 gabapentin 100 mg capsule 100 mg PO TIDCM #42 caps 08/23/24 oxycodone 5 mg tablet 5 mg PO Q6H PRN pain 5 days #20 tabs 08/23/24 sennosides 8.6 mg-docusate sodium 50 mg tablet (Stimulant Laxative Plus) 2 tab PO BID PRN PRN Constipation #30 tabs 08/23/24 tizanidine 2 mg tablet 2 mg PO Q8 PRN muscle spasticity #15 tabs 08/23/24
[2024-08-23 17:26] LABS: Bedside Glucose 226 mg/dL (74-106)
== END 2024-08-23 18:28 | disposition home or self-care (01) ==
LOC: ED 14:59 → MS3 18:26
PROVIDERS: Admitting Provider Hospitalist; Emergency Provider Emergency Medicine; PCP Internal Medicine; Visit Provider Internal Medicine
DX: M54.9 Dorsalgia, unspecified (principal); I27.21 Secondary pulmonary arterial hypertension; I48.19 Other persistent atrial fibrillation; E11.22 Type 2 diabetes mellitus with diabetic chronic kidney disease; Z79.4 Long term (current) use of insulin; N18.32 Chronic kidney disease, stage 3b; Z79.890 Hormone replacement therapy; Z95.2 Presence of prosthetic heart valve; D64.9 Anemia, unspecified; E55.9 Vitamin D deficiency, unspecified; I12.9 Hypertensive chronic kidney disease with stage 1 through stage 4 chronic kidney disease, or unspecified chronic kidney disease; E03.9 Hypothyroidism, unspecified; E66.9 Obesity, unspecified; E78.5 Hyperlipidemia, unspecified; D68.69 Other thrombophilia; M81.0 Age-related osteoporosis without current pathological fracture; I25.10 Atherosclerotic heart disease of native coronary artery without angina pectoris; Z23 Encounter for immunization; Z68.39 Body mass index [BMI] 39.0-39.9, adult
CPT/HCPCS: 36415; 72110; 80048; 81001; 82962; 85025; 85610; 90662; 96374; 96375; 97162; 97166; 99221; 99284; A4216; G0378

== ENCOUNTER 2024-09-19 09:49 | Outpatient (RCR) | payer MEDICARE, OTHER, SELFPAY ==
[2024-09-19 10:51] LABS: International Normalized Ratio 2.8; Prothrombin Time (Protime)PT. 29.1 SECONDS (11.7-14.9)
== END 2024-10-15 18:00 | disposition home or self-care (01) ==
LOC: LAB 09:49
PROVIDERS: PCP Internal Medicine; Referring Provider Internal Medicine Cardiovascular Disease; Visit Provider Internal Medicine Cardiovascular Disease
DX: Z79.01 Long term (current) use of anticoagulants; I48.19 Other persistent atrial fibrillation
CPT/HCPCS: 36415; 85610

== ENCOUNTER 2024-11-10 13:21 | Outpatient (RCR) | payer MEDICARE, OTHER, SELFPAY ==
[2024-10-31 08:57] LABS: International Normalized Ratio 3.6; Prothrombin Time (Protime)PT. 35.6 SECONDS (11.7-14.9)
[2024-11-10 13:45] LABS: Prothrombin Time (Protime)PT. 22.3 SECONDS (11.7-14.9)
== END 2024-11-10 18:00 | disposition home or self-care (01) ==
LOC: LAB 13:21
PROVIDERS: PCP Internal Medicine; Referring Provider Internal Medicine Cardiovascular Disease; Visit Provider Internal Medicine Cardiovascular Disease
DX: Z79.01 Long term (current) use of anticoagulants (principal)

== ENCOUNTER 2025-02-20 12:18 | Outpatient (RCR) | payer MEDICARE, OTHER, SELFPAY ==
[2025-02-20 13:54] LABS: International Normalized Ratio 2.5; Prothrombin Time (Protime)PT. 27.7 SECONDS (11.7-14.9)
[2025-02-20 15:57] LABS: Absolute Lymphocyte Count 1.12 X10^3/uL (0.83-4.51); Absolute Neutrophil Count 5.7 X10^3/uL (2.0-7.7); Basophil# 0.05 X10^3/uL; Basophil% 0.6 % (0-1); Eosinophil# 0.15 X10^3/uL; Eosinophils% 1.9 % (0-5); Hematocrit 36.7 % (37-47); Hemoglobin 12.6 g/dL (12.0-15.0); Lymphocyte # 1.12 X10^3/ul (0.83-4.51); Lymphocyte % 14.2 % (19-41); Mean Corp Hgb Conc 34.3 g/dL (32-36); Mean Corpuscular Hgb 30.4 pg (27.0-32.0); Mean Corpuscular Volume 88.6 fL (81-99); Mean Platelet Vol. 11.3 fl (6.2-12.0); Monocyte# 0.82 X10^3/uL; Monocyte% 10.4 % (0-10); NRBC Flagged by Analyzer 0 % (0-5); Neutrophil % 72.4 % (47-70); Platelet Count 135 K/mm3 (150-450); RBC Distribution Width CV 13.2 % (11.6-14.6); RBC Distribution Width SD 42.7 fl (35.1-43.9); Red Blood Count 4.14 M/mm3 (4.2-5.4); White Blood Count 7.9 K/mm3 (4.4-11.0)
[2025-02-20 20:34] LABS: Cholesterol 113 mg/dL (<=200); High Density Lipoprotein 38 mg/dL; Low Density Lipoprotein Calc. 25 mg/dL; Triglycerides 252 mg/dL; Very Low Density Lipoprotein 50 mg/dL (5-40); cholesterol:hdl ratio screen 2.97
[2025-02-20 20:36] LABS: ALB/GLOB Ratio 1.5 RATIO (0.9-2.4); AST(SGOT) 33 U/L (<=31); Alanine Aminotransfer ALT/SGPT 23 U/L (<=34); Alkaline Phosphatase 90 U/L (35-104); Anion Gap 13 (5-15); BUN 28 mg/dL (4-19); BUN/Creat Ratio 24.7 RATIO (10-20); Calcium,Total 9.5 mg/dL (7.6-11.0); Carbon Dioxide 22.2 mmol/L (21.0-32.0); Chloride 103 mmol/L (98-108); Creatinine, Serum 1.14 mg/dL (0.70-1.20); EST Glomerular Filtration Rate 48 (>60); Globulin 2.6 g/dL (2.2-4.2); Glucose 341 mg/dL (70-99); Potassium 4.4 mmol/L (3.3-5.1); Protein, Total 6.7 g/dL (5.9-8.4); Sodium Level 139 mmol/L (133-145); Total Bilirubin 1.06 mg/dL (0.00-1.30)
== END 2025-03-15 18:00 | disposition home or self-care (01) ==
LOC: LAB 12:18
PROVIDERS: PCP Internal Medicine; Referring Provider Internal Medicine Cardiovascular Disease; Visit Provider Internal Medicine Cardiovascular Disease
DX: I48.19 Other persistent atrial fibrillation (principal); Z79.01 Long term (current) use of anticoagulants; E11.9 Type 2 diabetes mellitus without complications; Z79.4 Long term (current) use of insulin; E78.5 Hyperlipidemia, unspecified
CPT/HCPCS: 36415; 80053; 80061; 84443; 85025; 85610

== ENCOUNTER 2025-05-29 15:27 | Outpatient (RCR) | payer MEDICARE, OTHER, SELFPAY ==
[2025-05-29 18:52] LABS: Hematocrit 36.2 % (37-47); Hemoglobin 11.8 g/dL (12.0-15.0); Immature Granulocytes Count 0.040 X10^3/uL (0.0-0.0); Mean Corp Hgb Conc 32.6 g/dL (32-36); Mean Corpuscular Volume 90.7 fL (81-99); Mean Platelet Vol. 11.2 fl (6.2-12.0); NRBC Flagged by Analyzer 0 % (0-5); Platelet Count 185 K/mm3 (150-450); RBC Distribution Width CV 14.3 % (11.6-14.6); RBC Distribution Width SD 47.6 fl (35.1-43.9); Red Blood Count 3.99 M/mm3 (4.2-5.4); White Blood Count 7.4 K/mm3 (4.4-11.0)
[2025-05-29 19:03] LABS: Prothrombin Time (Protime)PT. 21.6 SECONDS (11.7-14.9)
[2025-05-29 19:17] LABS: AST(SGOT) 23 U/L (<=31); Alanine Aminotransfer ALT/SGPT 14 U/L (<=34); Albumin, Serum 4.0 g/dL (3.4-4.8); Alkaline Phosphatase 78 U/L (35-104); Anion Gap 13 (5-15); BUN 15 mg/dL (4-19); BUN/Creat Ratio 19.2 RATIO (10-20); Calcium,Total 9.5 mg/dL (7.6-11.0); Carbon Dioxide 22.8 mmol/L (21.0-32.0); Chloride 104 mmol/L (98-108); Globulin 3.0 g/dL (2.2-4.2); Glucose 246 mg/dL (70-99); Potassium 4.1 mmol/L (3.3-5.1)
== END 2025-06-15 18:00 | disposition home or self-care (01) ==
LOC: MTLAB 15:27
PROVIDERS: PCP Internal Medicine; Referring Provider Internal Medicine Cardiovascular Disease; Visit Provider Internal Medicine Cardiovascular Disease
DX: Z79.01 Long term (current) use of anticoagulants; I48.0 Paroxysmal atrial fibrillation; I10 Essential (primary) hypertension; E78.5 Hyperlipidemia, unspecified
CPT/HCPCS: 36415; 80053; 84443; 85025; 85610

== ENCOUNTER 2025-06-06 18:03 | Inpatient (IN) | payer MEDICARE, OTHER, SELFPAY ==
[2025-06-06] VITALS (8 sets, daily range): BP systolic 102–176; BP diastolic 56–112; PULSE 80–108; RESP 18–20; TEMP 36.5–37.6; O2SAT 92–99; BMI 37.4; BMI 36.8
--- NOTE | 2025-06-06 18:28 | CT_ITS ---
PROCEDURE: BRAIN/HEAD WITHOUT CONTRAST 06/06/2025 REASON FOR EXAM: ALOC TECHNIQUE: BRAIN/HEAD WITHOUT CONTRAST Coronal and Sagittal reconstruction series were provided. One or more dose reduction techniques were used (e.g., Automated exposure control, adjustment of the mA and/or kV according to patient size, use of iterative reconstruction technique. RADIATION DOSE SUMMARY: CTDlvol: 44.99 mGy DLP: 779.24 mGycm COMPARISON: None. FINDINGS: No acute intracranial hemorrhage, extra-axial collection, mass effect or evidence of acute infarct. Mild age-appropriate generalized brain parenchymal volume loss, and chronic microangiopathic changes. Atherosclerotic calcification of the intracranial vasculature. Absent lower [place] ocular lenses. Intact skull base and calvarium. Clear paranasal sinuses and mastoid air cells. CT/Brain/Head without Contrast IMPRESSION: No acute intracranial abnormality. Reading Location: [id number]
--- NOTE | 2025-06-06 18:28 | EKG12_ITS ---
Test Reason : ALT LOC Blood Pressure : */* mmHG Vent. Rate : 108 BPM Atrial Rate : * BPM P-R Int : * ms QRS Dur : 144 ms QT Int : 384 ms P-R-T Axes : * 49 160 degrees QTcB Int : 514 ms Atrial fibrillation with rapid ventricular response Left bundle branch block Abnormal ECG Confirmed by Jose Raul Lowery ([id number]), art editor PATRICK DE LA VEGA ([id number]) on 06/07/2025 1:57:59 PM Referred By: NINFA Confirmed By: Jose Raul Lowery
--- NOTE | 2025-06-06 18:30 | EX.ED.DYSGE1 ---
HPI History of Present Illness Chief Complaint: Alt LOC Detail of Chief Complaint: Worsening confusion with altered level of conscious. Informant: patient (Patient limited informant due to her current confusion which is not her baseline according to family.) and family Onset/Context/Timing Onset: Today and Yesterday Context: Gradual Onset Timing: Continuous Current Severity: Moderate Maximum Severity: Moderate Narrative Narrative: 84-year-old female history of very mild dementia, diabetes, A-fib on Coumadin. Per the family last couple days she has not done that well and today progressively had a change in mental status. No recent falls or head trauma no fever. No vomiting or diarrhea. Patient is a limited informant at this time due to her confusion. No known fever. Currently on no antibiotics. No recent hospitalization. Prior similar symptoms: No Recent Illness/Hospitalization: No PFSH [facility] Medical History Elevated bilirubin Lumbar radiculopathy 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 extremity edema Chronic back pain Fatigue Hepatitis Dementia TIA (transient ischemic attack) Hypercoagulable state due to atrial fibrillation Hypothyroidism Type 2 diabetes mellitus Heart valve transplant recipient Heart valve problem Vitamin deficiency Pneumonia Pancreatitis Murmur, cardiac Hives Generalized headaches Gallstones Cataracts, both eyes Transfusion history Atrial fibrillation intermediate (current) use of anticoagulants Persistent atrial fibrillation Nonobstructive atherosclerosis of coronary artery Secondary pulmonary arterial hypertension Aortic stenosis with bicuspid valve Essential (primary) hypertension Environmental allergies Hyperlipidemia Paroxysmal atrial fibrillation Rapid atrial fibrillation (12/2019) Diabetes Morbid obesity with BMI of 40.0-44.9, adult Home Medications ?Medication ?Instructions ?Recorded ?Last Taken ?Type pen needle, diabetic 32 gauge x #400 ea 10/09/20 Unknown Rx (BD Ultra-Fine Kimber Pen Needle) hydrochlorothiazide 25 mg tablet 25 mg PO DAILY BLOOD PRESSURE #90 05/07/21 08/21/24 Rx tabs cetirizine 5 mg tablet 5 mg PO DAILY ALLERGIES 06/01/24 Unknown History 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,attractions associate,cont 07/28/24 Unknown History (Dexcom G7 Cylinder 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 Operator) glucagon HCl 1 mg solution for 1 mg subcut Q20M PRN HYPOGLYCEMIA 07/28/24 Unknown History injection (Glucagon (HCl) Emergency Kit) nystatin 100,000 unit/gram topical 1 applic topical BID PRN FUNGAL 07/28/24 Unknown History powder INFECTION trolamine salicylate 10 % topical 1 applic topical DAILY PRN 07/28/24 Unknown History cream (Myoflex) ARTHRITIS alendronate 70 mg tablet 70 mg PO QWEEK OSTEOPEROSIS 08/22/24 Unknown History clotrimazole-betamethasone 1 1 applic topical BID PRN FUNGAL 08/22/24 Unknown History %-0.05 % topical cream INFECTION ketoconazole 2 % shampoo 1 applic topical UD PRN FUNGAL 08/22/24 Unknown History INFECTION ketoconazole 2 % topical cream 1 applic topical DAILY PRN FUNGAL 08/22/24 Unknown History INFECTION magnesium chloride 71.5 mg 143 mg PO DAILY SUPPLEMENT 08/22/24 08/21/24 History (magnesium chloride) tablet,delayed release ergocalciferol (vitamin D2) 1,250 50,000 unit PO QWEEK #20 caps 11/07/24 Unknown Rx mcg (50,000 unit) capsule metoprolol tartrate 100 mg tablet 100 mg PO BID BLOOD PRESSURE #180 11/21/24 Unknown Rx tabs warfarin 4 mg tablet 4 mg PO .COMPLEX #180 tabs 11/22/24 Unknown Rx acetaminophen 500 mg tablet 1,000 mg PO BID PRN 02/13/25 Unknown History ascorbic acid (vitamin C) 1,000 mg 1 g PO QDAY 02/13/25 Unknown History capsule atorvastatin 40 mg tablet 40 mg PO DAILY CHOLESTEROL #90 02/13/25 Unknown Rx tabs furosemide 20 mg tablet 20 mg PO DAILY EDEMA #90 tabs 02/13/25 Unknown Rx losartan 100 mg tablet 100 mg PO DAILY BLOOD PRESSURE 02/13/25 Unknown Rx #90 tabs warfarin 5 mg tablet 5 mg PO QDAY 02/13/25 Unknown History blood sugar diagnostic (FreeStyle #100 ea 02/23/25 Unknown Rx Lite Strips) 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 meter (FreeStyle #1 ea 02/23/25 Unknown Rx Lite Meter kit) lancets 28 gauge (FreeStyle #200 ea 02/23/25 Unknown Rx Lancets) gabapentin 100 mg capsule 100 mg PO TID 03/13/25 Unknown History insulin aspart 20 unit subcut TID #18 mL 03/13/25 Unknown Rx (niacinamide)(U-100) 100 unit/mL(3 mL) subcutaneous pen (Fiasp FlexTouch U-100 Insulin) insulin degludec 100 unit/mL (3 16 unit subcut BID 03/13/25 Unknown History mL) subcutaneous pen (Tresiba FlexTouch U-100 insulin) oxycodone 5 mg capsule 5 mg PO BID PRN 03/13/25 Unknown History tizanidine 2 mg capsule 2 mg PO Q8H PRN 03/13/25 Unknown History warfarin 1 mg tablet 1 mg PO 3XW 03/13/25 Unknown History levothyroxine 25 mcg tablet 25 mcg PO QDAY #90 tabs 05/17/25 Unknown Rx Allergy/AdvReac Type Severity Reaction Status Date / Time acetaminophen (From Excedrin Allergy Intermediate headache Verified 06/06/25 18:06 Migraine) aspirin Allergy Intermediate headache Verified 06/06/25 18:06 caffeine (From Excedrin Allergy Intermediate headache Verified 06/06/25 18:06 Migraine) mold (mold spores) Allergy Intermediate respiratory Verified 06/06/25 18:06 distress lisinopril AdvReac Severe Cough Verified 06/06/25 18:06 monosodium glutamate (msg) AdvReac Intermediate PT UNSURE Verified 06/06/25 18:06 OF REACTION wheat AdvReac Intermediate PT UNSURE Verified 06/06/25 18:06 OF REACTION liraglutide (From Victoza) AdvReac Other Verified 06/06/25 18:06 Family History Father CAD (coronary artery disease) Brother Diabetes Sister Diabetes Breast cancer Hyperlipidemia Hypertension Arthritis Lupus Colon cancer Grandmother CVA (cerebral vascular accident) Grandfather Sudden cardiac Son Atrial fibrillation Mother Arthritis Other High cholesterol Surgical History S/P TAVR (transcatheter aortic valve replacement) History of left heart catheterization (03/11/12) History of appendectomy History of hysterectomy History of cholecystectomy Social History adopted: No household members: other details: daughter current occupational status: retired Smoking Status: Never smoker alcohol intake: current alcohol intake frequency: holidays/special occasions only details: wine what type of physical activity do you participate in: none seatbelt use: never do you feel safe at home: No ROS ROS ED ROS Narrative Unknown due to the patient's confusion. Review of Systems ROS Unobtainable: due to encephalopathy EXAM Physical Exam Narrative Exam Narrative: 84-year-old female lying in bed. Vital signs stable her blood pressure however is low at 102/56. Pulse ox 98% on room air no hypoxia. Afebrile. H EENT exam pupils round reactive light. Mildly dry mucous membranes. No trauma to her face or scalp. Neck nontender. Back nontender. Lungs clear to auscultation bilaterally. Heart tachycardic 105 no murmur. Chest wall ribs nontender. Abdomen soft nontender. Moving all 4 extremities. No deformity nontender no rashes. Neurologically she does not know the date, month or year. She seems confused. She does try to answer questions but inaccurately. She is moving all 4 extremities. I spoke to her son and I believe his at bedside. Const Vital Signs: 06/06/25 18:06 06/06/25 18:08 06/06/25 18:38 Temperature 98.6 F 98.6 F Temperature Source Oral Oral Pulse Rate 105 H 105 H Respiratory Rate 18 18 Blood Pressure 102/56 L 102/56 L Blood Pressure Mean 71 71 Pulse Ox 99 94 Oxygen Delivery Method Room Air Room Air Room Air Oxygen Flow Rate (L/min) 06/06/25 19:03 06/06/25 19:08 06/06/25 20:00 Temperature 98.5 F 99.6 F H Temperature Source Oral Core Pulse Rate 100 105 H 108 H Respiratory Rate 19 H 20 H Blood Pressure 176/87 H 151/98 H Blood Pressure Mean 116 115 Pulse Ox 92 93 Oxygen Delivery Method Nasal Cannula Nasal Cannula Oxygen Flow Rate (L/min) 2 3 Positive well nourished and well developed; Negative for cachectic, contractures or unkempt General Appearance ED: well developed; Negative for unkempt, cachectic, contractures, cyanotic, diaphoretic, NAD or pallor Nutritional Appearance: Negative for cachectic HEENT Reports dry mucous membranes Negative for trauma or tenderness Mouth ED: Yes dry mucous membranes Mouth: dry mucous membranes Eyes PERRL and EOMs intact bilaterally Neck no lymphadenopathy, supple and no JVD Chest Wall inspection of chest normal and palpation of chest normal Resp normal respiratory effort and clear to auscultation bilaterally Cardio regular rhythm, S1 normal heart sound, S2 normal heart sound and no murmurs Rate: tachycardic GI normal to inspection, nondistended, normoactive bowel sounds, non-tender, non-distended and no masses Palpation: soft; Negative for tender, guarding or rebound tenderness present Back/Spine no CVA tenderness Extremity normal to inspection General Extremety ED: Negative for edema or tenderness General Extremity: Negative for edema Neuro No oriented x3 and CN's II-XII intact bilaterally Neuro Narrative: Confused. Does not know day, month or year. 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 Possibly secondary to infectious etiology encephalopathy. She is on Coumadin consider head bleed or stroke. Versus other etiologies. Sepsis protocol with IV fluids and CT of her brain to be obtained. She will be admitted. Repeat exam unchanged. Patient is going to be given IV Ativan to help calm her down. Because the nurses are concerned she is here climb out of bed or rip out her IV. I discussed that with the family. Still waiting on the micro UA but it looks very clean in the Ayala catheter. I do not have the official read back yet on the CT but there is no bleed. Patient will be admitted for altered mental status. The hospitalist is on page. History & Record Review Discussion w/independent historian: Patient and Family Additional record(s) reviewed:: Prior inpatient record, Prior outpatient record, Prior ED visit and Prior labs Lab Data Attestation: I reviewed the patient's lab results. Lab results narrative: CBC shows a white count 9.2. H&H 12.8 and 38. Platelets 176. PT/INR of 18 and 1.5. PTT 28. Electrolytes show sodium 138. Gap 15. BUN and creatinine of 18 and 0.8. Glucose 239. Lactic acid normal at 1.8. Liver enzymes unremarkable. Urinalysis no nitrites. No white or red cells. No bacteria. Chest x-ray chronic changes. CT brain chronic changes. Labs: Laboratory Results - last 24 hr 06/06/25 06/06/25 18:30 18:35 WBC 9.2 RBC 4.29 Hgb 12.8 Hct 38.6 MCV 90.0 MCH 29.8 MCHC 33.2 RDW Std Deviation 47.7 H RDW Coeff of Uche 14.6 Plt Count 176 MPV 10.6 Immature Gran % (Auto) 0.400 Neut % (Auto) 77.7 H Lymph % (Auto) 11.1 L Maverick % (Auto) 9.5 Eos % (Auto) 1.0 Baso % (Auto) 0.3 Absolute Neuts (auto) 7.2 Absolute Lymphs (auto) 1.03 Nucleated RBC % 0 PT 18.0 H INR 1.5 APTT 28.5 Sodium 138 Potassium 3.9 Chloride 98 Carbon Dioxide 24.3 Anion Gap 15 BUN 18 Creatinine 0.80 Estim Creat Clear Calc 63.09 Est GFR (MDRD) Non-Af 73 BUN/Creatinine Ratio 22.1 H Glucose 239 H Lactic Acid 1.8 Calcium 9.9 Total Bilirubin 1.48 H AST 26 ALT 16 Alkaline Phosphatase 81 Total Protein 7.2 Albumin 4.4 Globulin 2.8 Albumin/Globulin Ratio 1.5 Urine Color Straw Urine Clarity Clear Urine pH 6.0 Ur Specific Coin 1.015 Urine Protein 100 H Urine Glucose (UA) 50 H Urine Ketones 15 H Urine Occult Blood 10 H Urine Nitrite Negative Urine Bilirubin Negative Urine Urobilinogen Normal Ur Leukocyte Esterase Negative Urine RBC 0-5 SEEN Urine WBC 0-5 SEEN Ur Squamous Epith Cells 0-5 SEEN Urine Bacteria 0 SEEN Hyaline Casts 0-5 SEEN Urine Mucus 0 SEEN Radiography Chest X-Ray - ED: 1 View, Read by ED Physician, Heart, Lungs, Mediastinum, Bony Structures, No Acute Disease and Chronic Changes Diagnostic Testing: Clinical Impression(s) from Imaging Studies Brain CT 06/06/25 18:28 IMPRESSION: No acute intracranial abnormality. Reading Location: [facility] Chest x-ray, portable, single view interpreted by myself shows normal cardiac silhouette. Chronic changes. No pneumonia. Rhythm Strip Rhythm Strip: A-fib Rate: 108 Ectopy: None EKG Initial EKG: Attestation: I personally reviewed and interpreted this EKG as follows: Interpretation: No Acute Injury Pattern, Atrial Fibrillation and LBBB Comments: A-fib rate of 108. Left bundle branch block. Critical Care Time Critical Care Time: Yes Critical care time (excluding procedures): 30-74 minutes, Including time spent:, Discussing w/Patient &/or Family/Utilities Estimator And Drafter, Discussing w/Consultants, Arranging Admission or Transfer, Performing Direct Patient Care at Bedside and - (35 minutes) Discharge Plan Dx/Rx/DC Orders Clinical Impression: Altered level of consciousness, Chronic anticoagulation, Acute confusion, Chronic a-fib, History of dementia, History of diabetes mellitus Disposition Disposition: Acute Care [facility]
[2025-06-06] MEDS: 0.9% Normal Saline (1000mL) 1,000 ML 999 ML IV (18:44)
--- NOTE | 2025-06-06 19:04 | RAD_ITS ---
PROCEDURE: CHEST 1 VIEW (PORTABLE) 06/06/2025 REASON FOR EXAM: ALOC TECHNIQUE: Frontal view of the chest. COMPARISON: None FINDINGS: Mild pulmonary vascular congestion and interstitial edema. No focal consolidation. No pleural effusion or pneumothorax. Mild cardiomegaly. TAVR. Calcified aortic arch. RAD/Chest 1 View (Portable) IMPRESSION: No focal consolidations. Mild pulmonary vascular congestion and interstitial e jade. Mild cardiomegaly. Reading Location: [id number]
[2025-06-06 19:16] LABS: Mucous, Urine 0 SEEN /hpf (<or=2+)
[2025-06-06 19:33] LABS: AST(SGOT) 26 U/L (<=31); Alanine Aminotransfer ALT/SGPT 16 U/L (<=34); Albumin, Serum 4.4 g/dL (3.4-4.8); Alkaline Phosphatase 81 U/L (35-104); Anion Gap 15 (5-15); BUN 18 mg/dL (4-19); BUN/Creat Ratio 22.1 RATIO (10-20); Calcium,Total 9.9 mg/dL (7.6-11.0); Carbon Dioxide 24.3 mmol/L (21.0-32.0); Chloride 98 mmol/L (98-108); Estimated Creatinine Clearance 63.09 ml/min (50-250); Globulin 2.8 g/dL (2.2-4.2); Glucose 239 mg/dL (70-99); Potassium 3.9 mmol/L (3.3-5.1)
[2025-06-06 19:45] LABS: Prothrombin Time (Protime)PT. 18.0 SECONDS (11.7-14.9)
[2025-06-06 19:46] LABS: Partial Thromboplast Time 28.5 Seconds (24.1-36.2)
[2025-06-06 19:50] LABS: Color, Urine Straw (Yellow); Glucose, Dipstick 50 mg/dl (Normal); Ketone-Dipstick 15 mg/dl (Negative); Leukocyte Esterase-Dipstick Negative /ul (Negative); Nitrite-Dipstick Negative (Negative); Occult Blood-Urine 10 /ul (Negative); Protein-Dipstick 100 mg/dl (Negative); Specific Gravity, Urine 1.015 (1.002-1.030); Urine Bilirubin Dipstick Negative (Negative)
[2025-06-06 19:52] LABS: Hematocrit 38.6 % (37-47); Hemoglobin 12.8 g/dL (12.0-15.0); Immature Granulocytes Count 0.040 X10^3/uL (0.0-0.0); Mean Corp Hgb Conc 33.2 g/dL (32-36); Mean Corpuscular Volume 90.0 fL (81-99); Mean Platelet Vol. 10.6 fl (6.2-12.0); NRBC Flagged by Analyzer 0 % (0-5); Platelet Count 176 K/mm3 (150-450); RBC Distribution Width CV 14.6 % (11.6-14.6); RBC Distribution Width SD 47.7 fl (35.1-43.9); Red Blood Count 4.29 M/mm3 (4.2-5.4); White Blood Count 9.2 K/mm3 (4.4-11.0)
[2025-06-06 20:06] LABS: Red Blood Cells-Urine 0-5 SEEN /hpf (0-5); Squamous Epithelial Cells - UA 0-5 SEEN /hpf (5-10)
[2025-06-06] MEDS: Lorazepam 2 MG/ML WCH Syringe 1 MG IV (20:10)
--- NOTE | 2025-06-06 20:11 | PCM.HP.STD ---
HPI - General General Date of Admission: 06/06/25 Date of Service: 06/06/25 Chief Complaint: Increased confusion, malaise HPI Narrative The patient is an 84 y/o F w/ PMHx: Nonobstructive CAD, CKD stage II per GFR trending, Dementia unclear type with unclear behavioral disturbance history, PAF, HTN, HLD, Hx TIA, Hypothyroidism, Diabetes mellitus type II with chronic neuropathy, Valvular heart disease s/p TAVR, Obesity, Allergic rhinitis who presents to [facility] ED on 06/06/2025 with history of worsening confusion starting the day prior reportedly not feeling well per family over the last 48 hours with mental status progressively worsening since onset with no reported fever per family not on any recent antibiotic therapies or recent illnesses otherwise but given mental status change and decline status prompted ED evaluation. Workup in the ED included T98.5, heart rate 105, BP 176/87, respiratory rate 19, 92% on 2 L nasal cannula--> most recent T99.6, heart rate 108, BP 151/98, respiratory rate 20, 93% on 3 L nasal cannula, CBC with WC 9.2, hemoglobin 12.8, platelet 176 without marked shift, coags with INR 1.5, CMP with glucose 239, BUN/creatinine 18/0.8, GFR 73, lactic acid 1.8, T. bili 1.48, urinalysis with protein 100, glucose 50, ketones 15, occult blood 10, negative nitrite, negative leukocyte Estrace with no evidence of UTI urine culture pending per ED, blood culture pending per ED, CT brain with no acute intracranial findings, chest x-ray with cardiomegaly with no acute cardiopulmonary findings with chronic changes but final read pending upon requested evaluation of patient, EKG with atrial fibrillation with rate 108 with a left bundle branch block. In the ED patient ministered 1 L normal saline as well as Ativan 1 mg IV x 1. In the ED per discussion with family patient was administered the Ativan secondary to agitation and trying to pull out lines. They do note that she is extremely stubborn. 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 Persistent atrial fibrillation Nonobstructive atherosclerosis of coronary artery Secondary pulmonary arterial hypertension Aortic stenosis with bicuspid valve Essential (primary) hypertension Environmental allergies Hyperlipidemia Paroxysmal atrial fibrillation Rapid atrial fibrillation (12/2019) Diabetes Morbid obesity with BMI of 40.0-44.9, adult Home Medications ?Medication ?Instructions ?Recorded ?Last Taken ?Type pen needle, diabetic 32 gauge x #400 ea 10/09/20 Unknown Rx (BD Ultra-Fine Kimber Pen Needle) hydrochlorothiazide 25 mg tablet 25 mg PO DAILY BLOOD PRESSURE #90 05/07/21 08/21/24 Rx tabs cetirizine 5 mg tablet 5 mg PO DAILY ALLERGIES 06/01/24 Unknown History 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,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,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 07/28/24 Unknown History (Dexcom G7 Teletype Operator) glucagon HCl 1 mg solution for 1 mg subcut Q20M PRN HYPOGLYCEMIA 07/28/24 Unknown History injection (Glucagon (HCl) Emergency Kit) nystatin 100,000 unit/gram topical 1 applic topical BID PRN FUNGAL 07/28/24 Unknown History powder INFECTION trolamine salicylate 10 % topical 1 applic topical DAILY PRN 07/28/24 Unknown History cream (Myoflex) ARTHRITIS alendronate 70 mg tablet 70 mg PO QWEEK OSTEOPEROSIS 08/22/24 Unknown History clotrimazole-betamethasone 1 1 applic topical BID PRN FUNGAL 08/22/24 Unknown History %-0.05 % topical cream INFECTION ketoconazole 2 % shampoo 1 applic topical UD PRN FUNGAL 08/22/24 Unknown History INFECTION ketoconazole 2 % topical cream 1 applic topical DAILY PRN FUNGAL 08/22/24 Unknown History INFECTION magnesium chloride 71.5 mg 143 mg PO DAILY SUPPLEMENT 08/22/24 08/21/24 History (magnesium chloride) tablet,delayed release ergocalciferol (vitamin D2) 1,250 50,000 unit PO QWEEK #20 caps 11/07/24 Unknown Rx mcg (50,000 unit) capsule metoprolol tartrate 100 mg tablet 100 mg PO BID BLOOD PRESSURE #180 11/21/24 Unknown Rx tabs warfarin 4 mg tablet 4 mg PO .COMPLEX #180 tabs 11/22/24 Unknown Rx acetaminophen 500 mg tablet 1,000 mg PO BID PRN 02/13/25 Unknown History ascorbic acid (vitamin C) 1,000 mg 1 g PO QDAY 02/13/25 Unknown History capsule atorvastatin 40 mg tablet 40 mg PO DAILY CHOLESTEROL #90 02/13/25 Unknown Rx tabs furosemide 20 mg tablet 20 mg PO DAILY EDEMA #90 tabs 02/13/25 Unknown Rx losartan 100 mg tablet 100 mg PO DAILY BLOOD PRESSURE 02/13/25 Unknown Rx #90 tabs warfarin 5 mg tablet 5 mg PO QDAY 02/13/25 Unknown History blood sugar diagnostic (FreeStyle #100 ea 02/23/25 Unknown Rx Lite Strips) 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 meter (FreeStyle #1 ea 02/23/25 Unknown Rx Lite Meter kit) lancets 28 gauge (FreeStyle #200 ea 02/23/25 Unknown Rx Lancets) gabapentin 100 mg capsule 100 mg PO TID 03/13/25 Unknown History insulin aspart 20 unit subcut TID #18 mL 03/13/25 Unknown Rx (niacinamide)(U-100) 100 unit/mL(3 mL) subcutaneous pen (Fiasp FlexTouch U-100 Insulin) insulin degludec 100 unit/mL (3 16 unit subcut BID 03/13/25 Unknown History mL) subcutaneous pen (Tresiba FlexTouch U-100 insulin) oxycodone 5 mg capsule 5 mg PO BID PRN 03/13/25 Unknown History tizanidine 2 mg capsule 2 mg PO Q8H PRN 03/13/25 Unknown History warfarin 1 mg tablet 1 mg PO 3XW 03/13/25 Unknown History levothyroxine 25 mcg tablet 25 mcg PO QDAY #90 tabs 05/17/25 Unknown Rx Allergy/AdvReac Type Severity Reaction Status Date / Time acetaminophen (From Excedrin Allergy Intermediate headache Verified 06/06/25 18:06 Migraine) aspirin Allergy Intermediate headache Verified 06/06/25 18:06 caffeine (From Excedrin Allergy Intermediate headache Verified 06/06/25 18:06 Migraine) mold (mold spores) Allergy Intermediate respiratory Verified 06/06/25 18:06 distress lisinopril AdvReac Severe Cough Verified 06/06/25 18:06 monosodium glutamate (msg) AdvReac Intermediate PT UNSURE Verified 06/06/25 18:06 OF REACTION wheat AdvReac Intermediate PT UNSURE Verified 06/06/25 18:06 OF REACTION liraglutide (From Victoza) AdvReac Other Verified 06/06/25 18:06 Family History Father CAD (coronary artery disease) Brother Diabetes Sister Diabetes Breast cancer Hyperlipidemia Hypertension Arthritis Lupus Colon cancer Grandmother CVA (cerebral vascular accident) Grandfather Sudden cardiac Son Atrial fibrillation Mother Arthritis Other High cholesterol Surgical History S/P TAVR (transcatheter aortic valve replacement) History of left heart catheterization (03/11/12) History of appendectomy History of hysterectomy History of cholecystectomy Social History adopted: No household members: other details: daughter current occupational status: retired Smoking Status: Never smoker alcohol intake: current alcohol intake frequency: holidays/special occasions only details: wine what type of physical activity do you participate in: none seatbelt use: never do you feel safe at home: No ROS Review of Systems ROS Unobtainable: due to encephalopathy Vital Signs Vital Signs Vital Signs: 06/06/25 18:06 06/06/25 18:08 06/06/25 18:38 Temperature 98.6 F 98.6 F Temperature Source Oral Oral Pulse Rate 105 H 105 H Respiratory Rate 18 18 Blood Pressure 102/56 L 102/56 L Blood Pressure Mean 71 71 Pulse Ox 99 94 Oxygen Delivery Method Room Air Room Air Room Air Oxygen Flow Rate (L/min) 06/06/25 19:03 06/06/25 19:08 Temperature 98.5 F Temperature Source Oral Pulse Rate 100 105 H Respiratory Rate 19 H Blood Pressure 176/87 H Blood Pressure Mean 116 Pulse Ox 92 Oxygen Delivery Method Nasal Cannula Oxygen Flow Rate (L/min) 2 Weight Weight: 224 lb 13.944 oz Body Mass Index (BMI) 37.4 Physical Exam Narrative Physical Examination: General: Laying in the ED bed, recent Ativan, currently not alert or able to answer any orientation questions, laying in the ED bed, fatigued. Skin: Normal color, normal turgor, no icterus, no cyanosis except occasional stage ecchymoses, abrasions, significant fold intertrigo. HEENT: AT/NC, EOMI, PERRLA, dry MM, no carotid bruits or JVD noted. Lungs: Diminished, greater bases, mildly increased respiratory rate but no distress, no markedly appreciated rales, ronchi or wheezing. Heart: Irregular irregular; no gallop, rub audible. Abdomen: Soft, obese, no obvious grimacing with palpation, distant bowel sounds, difficult to discern distention HSM given habitus. Extremities: No cyanosis, no clubbing, pedal to mid re[place] edema which family notes is chronic. Neurological: Laying in the ED bed, recent Ativan, currently not alert or able to answer any orientation questions, laying in the ED bed, fatigued, cognitive function diminished baseline with underlying dementia but currently significantly not baseline intact; pupils equally reactive to light and accommodation, difficult to assess cranial nerves given currently lethargic status post recent Ativan, will spontaneously move extremities, strength difficult to assess given recent sedation, strength severely accordingly diffusely decreased. Psychiatric: Affect appears currently flat, lethargic no acute evidence of depressive or anxiety feelings. Results Lab / Micro Data 06/06/25 18:30 06/06/25 18:30 Labs: Laboratory Results - last 24 hr 06/06/25 18:30: WBC 9.2, RBC 4.29, Hgb 12.8, Hct 38.6, MCV 90.0, MCH 29.8, MCHC 33.2, RDW Std Deviation 47.7 H, RDW Coeff of [place] 14.6, Plt Count 176, MPV 10.6, Immature Gran % (Auto) 0.400, Neut % (Auto) 77.7 H, Lymph % (Auto) 11.1 L, [place] % (Auto) 9.5, Eos % (Auto) 1.0, Baso % (Auto) 0.3, Absolute Neuts (auto) 7.2, Absolute Lymphs (auto) 1.03, Nucleated RBC % 0, PT 18.0 H, INR 1.5, APTT 28.5, Sodium 138, Potassium 3.9, Chloride 98, Carbon Dioxide 24.3, Anion Gap 15, BUN 18, Creatinine 0.80, Estim Creat Clear Calc 63.09, Est GFR (MDRD) Non-Af 73, BUN/Creatinine Ratio 22.1 H, Glucose 239 H, Calcium 9.9, Total Bilirubin 1.48 H, AST 26, ALT 16, Alkaline Phosphatase 81, Total Protein 7.2, Albumin 4.4, Globulin 2.8, Albumin/Globulin Ratio 1.5, Urine Color Straw, Urine Clarity Clear, Urine pH 6.0, Ur Specific [place] 1.015, Urine Protein 100 H, Urine Glucose (UA) 50 H, Urine Ketones 15 H, Urine Occult Blood 10 H, Urine Nitrite Negative, Urine Bilirubin Negative, Urine Urobilinogen Normal, Ur Leukocyte Esterase Negative, Urine RBC 0-5 SEEN, Urine WBC 0-5 SEEN, Ur Squamous Epith Cells 0-5 SEEN, Urine Bacteria 0 SEEN, Hyaline Casts 0-5 SEEN, Urine Mucus 0 SEEN 06/06/25 18:35: Lactic Acid 1.8 Rhythm Strip Rhythm Strip: A-fib Rate: 108 Ectopy: None Imaging Radiology Impression Brain CT 06/06/25 18:28 IMPRESSION: No acute intracranial abnormality. Reading Location: [id number] Assessment & Plan Assessment/Plan (1) Acute confusion: PLAN: Plan The patient is an 84 y/o F w/ PMHx: Nonobstructive CAD, CKD stage II per GFR trending, Dementia unclear type with unclear behavioral disturbance history, PAF, HTN, HLD, Hx TIA, Hypothyroidism, Diabetes mellitus type II with chronic neuropathy, Valvular heart disease s/p TAVR, Obesity, Allergic rhinitis who presents to [facility] ED on 06/06/2025 with history of worsening confusion starting the day prior reportedly not feeling well per family over the last 48 hours with mental status progressively worsening since onset with no reported fever per family not on any recent antibiotic therapies or recent illnesses otherwise but given mental status change and decline status prompted ED evaluation. #1. Altered mentation with hypoxia, debility, unclear etiology w/ adult FTT concerning for possible developing pneumonia versus acute viral syndrome: Given presentation also with mild PAF with RVR with known history to be cautious we will maintain on PCU, will obtain ABG, will obtain ammonia level, will obtain full respiratory viral panel, will obtain procalcitonin, will plan to continue judiciously hydrate with repeat chest x-ray in a.m. to assure no developing pneumonia as etiology especially given mild hypoxia, only interim maintain on IV Rocephin and IV azithromycin with de-escalation off if repeat films not marked appearing or if obvious evidence of viral illness on panel, will maintain on oxygen with wean as tolerated to room air, PRN albuterol, maintained on IV Zosyn/Levaquin/Rocephin and Azithromycin/Zosyn, encourage HOB, IS parameters, will attempt to induce sputum culture if able, will obtain urine antigens, urine culture pending per ED, blood culture x 2 pending per ED. If there is no obvious evident infectious cause may need to consider follow-up MRI. PT/OT/case management consulted for discharge planning. #2. Paroxysmal atrial fibrillation: EKG in ED w/ atrial fibrillation with rate less than 110. Will continue hydration, will maintain on telemetry, obtain magnesium level, obtain TSH level. Most recent ECHO as noted 06/14/24 but given rate likely secondary to #1 will hold on repeat ECHO. Will continue Coumadin with INR trending with additional dose x 1 now given subtherapeutic INR upon presentation, continue metoprolol with hold parameters if necessary. #3. Dementia unclear type with unclear behavioral disturbance history: Complicates presentation, maintain on fall and aspiration precautions, not on a regimen for current list, PT/OT/case management consulted for discharge planning. #4. Chronic Kidney Disease Stage II per GFR trending: Admission BUN/Cr 18/0.8, GFR 73, baseline renal function 0.7-1.1, repeat BMP in AM. #5. Chronic normocytic anemia: Admission hemoglobin 12.8, MCV 90, baseline hemoglobin primarily more recently 11-12, will continue to trend. #6. History of TIA: Will continue Coumadin with INR trending, statin therapy, hypertensive regimen, diabetic regimen as noted with adjustments as needed. #7. Valvular heart disease: Most recent echocardiogram noted 06/14/2024 with normal LV size, bioprosthetic AV, LVEF 50%, LV systolic function lower limits of normal, mild to moderate TVI. #8. Nonobstructive CAD: Will continue Coumadin with INR trending with additional dose x 1 given subtherapeutic INR upon current presentation, continue statin therapy, losartan, metoprolol home regimen. #9. Diabetes mellitus type II with chronic neuropathy: Hold oral home regimen, continue home insulin regimen, ADA diet, accu checks w/ ISS, continue patient home gabapentin regimen. #10. Hypothyroidism: Will continue patient home levothyroxine regimen. #11. Hypertension: Continue home regimen including metoprolol, losartan, Lasix, PRN hydralazine. #12. Hyperlipidemia: Will continue patient home statin therapy. #13. Allergic rhinitis: Will continue patient home cetirizine regimen. #14. DVT prophylaxis: Will continue Coumadin with INR trending with an additional dose x 1 given subtherapeutic INR of 1.5 on admission. #15. CODE status: Patient HCPOA is per son who is present and living will is currently in place. Discussed CODE status at length including difference between FULL code, DNR-CCA and DNR-CC status. Following discussions about the differences in these status, requested DNR-CCA, no intubation status. Did clarify and confirmed no intubation status. Advanced Care Planning Face to Face Time: 16 minutes. Charges/Coding Visit Charges Inpatient E&M: 74509 Init Hosp L3 Procedures Hospitalists Procedures: 08490 Advncd Care Plan 30 Min
[2025-06-06 21:17] LABS: SITE Not entered; VBG BASE EXCESS 4 mmol/L (-1.0-3.5); VBG PO2 40 mmHg (25-40); VBG SO2 73 % (50-70); VBG TCO2 31 mmol/L (23-33)
[2025-06-06 21:32] LABS: Ammonia 14.8 umol/L (11-51)
[2025-06-06 21:33] LABS: Magnesium 1.6 mg/dL (1.5-2.2)
--- OUTSIDE RECORDS SUMMARY | 2025-06-06 21:37 | XMS RPT_ITS | CCD ---
Author Organization [facility] ion Partnership [facility] Care Team Providers Care Corrections Unit Supervisor Name Role Phone MONROE Valero, Belkys Clemons Unavailable Unavaillionel Valero RN, Belkys Clemons Unavailable Unavailabl rickey Valero RN, Belkys Clemons Unavailable Unavailabl e Ciesa, Arlet Unavailable Fabricio Sanders Unavailable Dante Cross Unavailable Unavailable hawa Koch Unavailable Unavailable Unavailable Unavailable Michel Cobb Unavailable Dante Salmon Unavailable Unavailable Marie Collado Unavailable Unavailable Joseph HARRISON Arlet Unavailable Dr. Fabricio Sanders Unavailable Dante Salmon LPN Unavailable Unavailable Unavailable Unavailable Madison Greer LPN Unavailable Unavailable Unavailable Primary Care Provider Unavailabl e Unavailable Unavailable Virginie Calderón MA Unavailable Unavailable Ciesa, Teresita Unavailable Ciesa, Teresita Unavailable Catrina Delaney CNP Unavailable Dr. Terrell Schafer MD Primary Care Provider Dr. Terrell Schafer MD Attending Provider [phone] Dr. Terrell Schafer MD Referring Provider [phone] Elkin Traylor Attending Provider Dr. Joel Judge MD Attending Provider Kannan MD, Dr. [place] Referring Provider Víctor GORDONCNati Attending Provider Kannan, Joel Referring Unavailable Kannan, Joel Attending Unavailable Oleghe, Efewongbe Primary Care Unavailable Kannan, Joel Attending Unavailable Kannan, Joel Referring Unavailable Oleghe, Efewongbe Primary Care Unavailable Oleghe, Efewongbe Attending Unavailable Oleghe, Efewongbe Primary Care Unavailable Care Physician, No Primary Primary Care Unava ilable Kannan, [place] Referring Unavailable Kannan, [place] Attending Unavailable Oleghe, Efewongbe Attending Unavailable Oleghe, Efewongbe Primary Care Unavailable Oleghe, Efewongbe Attending Unavailable Oleghe, Efewongbe Primary Care Unavailable Care Physician, No Primary Primary Care Unava ilable Kannan, [place] Referring Unavailable Kannan, [place] Attending Unavailable Nati Renee Attending Unavailable Oleghe, Efewongbe Referring Unavailable Oleghe, Efewongbe Primary Care Unavailable Oleghe, Efewongbe Attending Unavailable Oleghe, Efewongbe Primary Care Unavailable Manolo Morejon Admitting Unavailable Manolo Morejon Consulting Unavailable KristenponManolo madison Attending Unavailable Oleghe, Efewongbe Primary Care Unavailable Michelle Hernández Attending Unavailable Michelle Hernández Consulting Unavailable Oleghe, Efewongbe Attending Unavailable Oleghe, Efewongbe Referring Unavailable Oleghe, Efewongbe Primary Care Unavailable Oleghe, Efewongbe Referring Unavailable Oleghe, Efewongbe Attending Unavailable Oleghe, Efewongbe Primary Care Unavailable Oleghe, Efewongbe Attending Unavailable Oleghe, Efewongbe Primary Care Unavailable Oleghe, Efewongbe Attending Unavailable Oleghe, Efewongbe Primary Care Unavailable Care Physician, No Primary Primary Care Unava ilable Care Physician, No Primary Attending Unava ilable Oleghe, Efewongbe Attending Unavailable Oleghe, Efewongbe Primary Care Unavailable Teresita Ruiz NP Referring Unavailable Oleghe, Efewongbe Attending Unavailable Oleghe, Efewongbe Primary Care Unavailable Oleghe, Efewongbe Attending Unavailable Oleghe, Efewongbe Primary Care Unavailable Oleghe, Efewongbe Attending Unavailable Oleghe, Efewongbe Primary Care Unavailable Kannan, Joel Referring Unavailable Kannan, Joel Attending Unavailable Oleghe, Efewongbe Primary Care Unavailable Manolo Morejon Admitting Unavailable Agivone Manolo Consulting Unavailable Oleghe, Efewongbe Primary Care Unavailable Michelle Hernández Attending Unavailable Kannan, Joel Referring Unavailable Kannan, [place] Attending Unavailable Oleghe, Efewongbe Primary Care Unavailable Oleghe, Efewongbe Consulting Unavailable Roof COLLAR SHAPER OPERATORElkin Consulting Unavailable Oleghe, Efewongbe Attending Unavailable Oleghe, Efewongbe Referring Unavailable Oleghe, Efewongbe Primary Care Unavailable Care Physician, No Primary Primary Care Unava ilable Kannan, Joel Attending Unavailable Oleghe, Efewongbe Primary Care Unavailable Oleghe, Efewongbe Attending Unavailable Care Physician, No Primary Attending Unava ilable Care Physician, No Primary Primary Care Unava ilable Care Physician, No Primary Primary Care Unava ilable Kannan, Joel Referring Unavailable Kannan, [place] Attending Unavailable Oleghe, Efewongbe Attending Unavailable Oleghe, Efewongbe Primary Care Unavailable Oleghe, Efewongbe Attending Unavailable Oleghe, Efewongbe Primary Care Unavailable Oleghe, Efewongbe Attending Unavailable Oleghe, Efewongbe Primary Care Unavailable [facility] COLLAR SHAPER OPERATOR, Elkin Benjamin Attending Unavailable Oleghe, Efewongbe Referring Unavailable Oleghe, Efewongbe Primary Care Unavailable Oleghe, Efewongbe Referring Unavailable Oleghe, Efewongbe Attending Unavailable Oleghe, Efewongbe Primary Care Unavailable Nati Renee Attending Unavailable Oleghe, Efewongbe Referring Unavailable Oleghe, Efewongbe Primary Care Unavailable Oleghe, Efewongbe Attending Unavailable Oleghe, Efewongbe Referring Unavailable Oleghe, Efewongbe Primary Care Unavailable Brittany Macdonald Attending Unavailable Oleghe, Efewongbe Referring Unavailable Oleghe, Efewongbe Primary Care Unavailable Care Physician, No Primary Primary Care Unava ilable Kannan, [place] Referring Unavailable Kannan, [place] Attending Unavailable Allergies Allergy Classification Reported Allergen(s) Allergy Type Date of Onset Reaction(s) Facility Aspirin (7 sources) Aspirin; 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: [Aspirin 81 *ANALGESICS - NonNarcotic*] Drug Allergy [facility] Work Phone: liraglutide (7 sources) liraglutide; 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: [Victoza *ANTIDIABETICS*] Drug Allergy [facility] Work Phone: (5 sources) lisinopril; 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: [lisinopril] Drug Allergy 5 cough [facility] Work Phone: (20 sources) Aspirin; 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: [Aspirin 81 *ANALGESICS - NonNarcotic*] Drug Allergy 5 headache [facility] Work Phone: (20 sources) liraglutide; 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: [Victoza *ANTIDIABETICS*] Drug Allergy 5 Other [facility] Work Phone: (1 source) Acetaminophen Drug Allergy 5 headache [facility] (1 source) Caffeine Drug Allergy 5 headache [facility] (1 source) Glutamate Drug Allergy 5 PT UNSURE OF REACTION [facility] (1 source) Mold Extract Drug Allergy 5 respiratory distress [facility] (1 source) Wheat preparation Drug Allergy 5 PT UNSURE OF REACTION [facility] (1 source) Acetaminophen Drug Allergy 5 [facility] (1 source) Aspirin Drug Allergy 5 [facility] (1 source) Caffeine Drug Allergy 5 [facility] (1 source) liraglutide Drug Allergy 5 [facility] (1 source) Mold Extract Drug Allergy 5 [facility] (1 source) Wheat preparation Drug Allergy 5 [facility] (1 source) monosodium glutamate Drug allergy (disorder) 5 [facility] Rep[facility] Medications Current Medications Medication Drug Class(es) Dates Sig (Normalized) Sig (Original) acetaminophen 500 mg oral tablet (20 sources) Start: 02-13-2025 take 2 tablets by mouth twice daily as needed Acetaminophen 500 mg tablet Active 1000 mg PO TWICE A DAY as needed February 13, 2025 11:04am Start: 08-23-2024 End: 02-13-2025 take 2 tablets by mouth every eight hours as needed Acetaminophen 500 mg tablet Discontinued 1000 mg PO EVERY 8 HOURS as needed September 15, 2024 12:53pm February 13, 2025 11:11am Take it this way for 14 days Start: 07-28-2024 End: 09-15-2024 take 1 tablet by mouth every twelve hours as needed for pain Acetaminophen (Tylenol Arthritis Pain) 650 mg tablet extended release Discontinued 650 mg PO Q12H as needed for PAIN July 28, 2024 12:00am September 15, 2024 2:01pm On Hold: UNTIL NOT TAKING SCHEDULED DOSING Start: 06-29-2012 End: 01-24-2015 take 1 tablet by mouth once daily as needed TYLENOL ARTHRITIS PAIN 650 MG CR-TABS One tablet by mouth daily as needed ACETAMINOPHEN [id number] Joel Judge MD Tylenol 500 MG O ral Capsule as needed (500 MG) Active Comments: Medication taken as needed. Comment on above: Medication taken as needed. alendronic acid 70 mg oral tablet (20 sources) Bisphosphonate Start: take 1 tablet by mouth every week Alendronate 70 mg tablet Active 70 mg PO EVERY WEEK August 22, 2024 12:00am OSTEOPEROSIS Start: 04-18-2022 Alendronate So dium 70 MG Oral Tablet 1 (one) Tablet q week TAD for 0 days Quantity: 12 {Tablet} Refills: 3 Ordered: 18-Apr-2022 Allegra Graves DO Start : 18-Apr-2022 Active Comments: take with water, 30 min before first food/drink/med, avoid lying down x 30min. Begin Jul 2020 stop in 3-5 years Start: 03-25-2022 Alendronate So dium 70 MG Oral Tablet 1 (one) Tablet q week TAD for 0 days Quantity: 12 {Tablet} Refills: 3 Ordered: 25-Mar-2022 Adrianna De Paz MD Start : 25-Mar-2022 Active Comments: take with water, 30 min before first food/drink/med, avoid lying down x 30min. Begin Jul 2020 stop in 3-5 years Start: 07-26-2021 Alendronate So dium 70 MG Oral Tablet 1 (one) Tablet q week TAD for 0 days Quantity: 12 {Tablet} Refills: 3 Ordered: 10-Jun-2021 Dante Salmon LPN Start : 10-Jun-2021 Active Comments: take with water, 30 min before first food/drink/med, avoid lying down x 30min. Begin Jul 2020 stop in -5 years Start: 09-19-2020 End: 08-22-2024 take 1 tablet by mouth every week Alendronate 70 mg tablet, effervescent Discontinued 70 mg PO EVERY WEEK September 19, 2020 1:00am August 22, 2024 4:16pm Start: 07-16-2020 Alendronate So dium 70 MG Oral Tablet 1 (one) Tablet q week TAD for 0 days Quantity: 12 {Tablet} Refills: 3 Ordered: 16-Jul-2020 Dante Salmon LPN Start : 16-Jul-2020 Active Comments: take with water, 30 min before first food/drink/med, avoid lying down x 30min. Begin Jul 2020 stop in - years Comment on above: take with water, 30 min before first food/drink/med, avoid lying down x 30min. Begin Jul 2020 stop in - amoxicillin 500 mg oral capsule (1 source) Penicillin-class Antibacterial Start: 07-28-20 24 take 4 capsules by mouth once as needed Amoxicillin 500 mg capsule Active 2000 mg PO ONCE as needed for DENTAL APPOINTMENTS July 28, 2024 12:00am 1 hr prior to dental visit ascorbic acid 1000 mg oral capsule (1 source) Vitamin C Start: 02-14-20 25 take 1 g by mouth once daily Ascorbic Acid (Vitamin C) 1,000 mg capsule Active 1 g PO daily February 13, 2025 12:00am atorvastatin 40 mg oral tablet (20 sources) HMG-CoA Reductase Inhibitor Start: 02-14-20 25 take 1 tablet by mouth once daily Atorvastatin 40 mg tablet Active 40 mg PO DAILY 90 3 February 13, 2025 11:44am CHOLESTEROL Start: 12-31-2021 take 1 tablet by meg th once daily at bedtime Atorvastatin Calcium 40 MG Oral Tablet 1 (one) Tablet qhs for 0 days Quantity: 90 {Tablet} Refills: 3 Ordered: 31-Dec-2021 Teresita Ruiz Start : 31-Dec-2021 Active Start: 02-09-2021 take 1 tablet by meg th once daily at bedtime Atorvastatin Calcium 40 MG Oral Tablet 1 (one) Tablet qhs for 0 days Quantity: 90 {Tablet} Refills: 3 Ordered: 09-Feb-2021 Teresita Ruiz CNP, CNP, Mary E Start : 09-Feb-2021 Active Start: 12-28-2017 End: 02-13-2025 take 1 tablet by mouth once daily at bedtime Atorvastatin Calcium 40 MG Oral Tablet 1 (one) Tablet qhs for 0 days Quantity: 90 {Tablet} Refills: 3 Ordered: 02-Jan-2020 Teresita Ruiz CNP, CNP, Mary E Start : 02-Jan-2020 Active Start: 06-29-2012 take 1 tablet by meg th once daily ATORVASTATIN CALCIUM 40 MG TABS One tablet by mouth daily ATORVASTATIN CALCIUM [id number] Rohini Díaz PA-C betamethasone 0.5 mg/ml / clotrimazole 10 mg/ml topical cream (2 sources) Azole Antifungal, Corticosteroid Start: 07-28-2024 End: 08-22-2024 Clotrimazole-Betamethasone 1-0.05 % cream Active 1 NMA TOPICAL TWICE A DAY as needed for FUNGAL INFECTION August 22, 2024 12:00am Blood-Glucose Meter (Freestyle Lite Meter) kit (1 source) Start: 02-23-2025 Blood-Glucose Meter (Freestyle Lite Meter) kit Active 0 .MEDSUPPLY 1 0 February 23, 2025 12:00am Type 2 diabetes mellitus with hyperglycemia As directed, check blood glucose daily for type 2 DM Blood-Glucose,Rec eiver,Cont (Dexcom G7 Java Developer Consultant) misc (1 source) Start: 07-28-2024 Blood-Glucose,Java Developer Consultant,Cont (Dexcom G7 Java Developer Consultant) misc Active 0 .Route July 28, 2024 12:00am As directed cetirizine hydrochloride 5 mg oral tablet (1 source) Histamine-1 Receptor Antagonist Start: 06-01-2024 take 1 tablet by mouth once daily Cetirizine 5 mg tablet Active 5 mg PO DAILY June 01, 2024 12:00am ALLERGIES ergocalciferol 1.25 mg oral capsule (20 sources) Provitamin D2 Compound Start: 11-07-2024 Ergocalciferol (Vitamin D2) 1,250 mcg (50,000 unit) capsule Active 69538 U PO EVERY WEEK 05 12November 07, 2024 11:54am Start: 05-23-2021 take 1 capsule by [facility] every week Vitamin D (Ergocalciferol) 1.25 MG (11861 UT) Oral Capsule 1 (one) Capsule once weekly for 0 days Quantity: 4 {Capsule} Refills: 3 Ordered: 12-Nov-2021 Teresita Ruiz Start : 12-Nov-2021 Active Start: 12-27-2019 take 1 capsule by [facility] every week Ergocalciferol 1.25 MG (24609 UT) Oral Capsule 1 (one) Capsule weekly for 0 days Quantity: 30 {Capsule} Refills: 0 Ordered: 03-Oct-2020 Teresita Ruiz CNP, CNP, Mary E Start : 03-Oct-2020 Active Start: 12-31-2017 End: 11-07-2024 Ergocalciferol (Vitamin D2) 50,000 unit capsule Discontinued 91131 U PO EVERY WEEK December 31, 2017 1:00am November 07, 2024 11:56am Start: 01-31-2015 take 1 tablet by meg every week VITAMIN D (ERGOCALCIFEROL) 91271 UNIT CAPS 1 tablet by mouth week ERGOCALCIFEROL [id number] Joel Judge MD Start: 06-29-2012 End: 01-24-2015 take 1 capsule by mouth once VITAMIN D (ERGOCALCIFEROL ) 40846 UNIT CAPS 1 capsule by mouth for 8 weeks then once a month ERGOCALCIFEROL [id number] Jonelle Ortez RN furosemide 20 mg oral tablet (20 sources) Loop Diuretic Start: 06-01-2024 End: 02-13-2025 take 1 tablet by mouth once daily Furosemide 20 mg tablet Active 20 mg PO DAILY 90 February 13, 2025 11:43am EDEMA Start: 05-07-2021 End: 05-07-2021 take 1 tablet by mouth twice daily Furosemide (Lasix) 20 mg tablet Discontinued 20 mg PO TWICE A DAY 180 May 07, 2021 11:25am May 07, 2021 11:37am Start: 05-07-2021 End: 05-07-2021 take 2 tablets by mouth once daily Furosemide (Lasix) 20 mg tablet Discontinued 40 mg PO DAILY May 07, 2021 12:00am May 07, 2021 11:26am Start: 06-03-2018 End: 06-10-2021 take 1 tablet by mouth once daily Lasix 40 MG Oral Tablet 1 (one) Tablet daily for 0 days Quantity: 30 {Tablet} Refills: 3 Ordered: 10-Jun-2021 Dante aSlmon LPN Start : 27-Dec-2019 End : 10-Jun-2021 Inactive Comments: Rx by kannan Start: 12-28-2017 End: 01-01-2018 take 1 tablet by mouth once daily Furosemide 40 mg tablet Discontinued 40 mg PO daily December 28, 2017 1:00am January 01, 2018 3:10pm Start: 09-25-2016 take 1 tablet by meg th once daily LASIX 20 MG TABS One tablet by mouth daily FUROSEMIDE [id number] Joel Judge MD Start: 09-25-2016 take 1 tablet by meg th once daily LASIX 40 MG TABS One tablet by mouth daily FUROSEMIDE [id number] Joel Judge MD Start: 05-09-2015 End: 06-26-2015 take 1 tablet by mouth once daily LASIX 20 MG TABS One tablet by mouth daily FUROSEMIDE [id number] JUAN C CorleyC Comment on above: Rx by kannan gabapentin 100 mg oral capsule (3 sources) Anti-epileptic Agent Start: 03-13-2025 take 1 capsule by mouth three times daily Gabapentin 100 mg capsule Active 100 mg PO THREE TIMES A DAY March 13, 2025 12:00am Start: 08-23-2024 End: 10-15-2024 take 1 capsule by mouth three times daily at mealtime Gabapentin 100 mg capsule Discontinued 100 mg PO 3 TIMES DAILY WITH MEALS 90 30 0 September 15, 2024 1:37pm October 14, 2024 1:00am October 15, 2024 1:15am Glucagon Hcl (Glucagon (Hcl) Emergency Kit) 1 mg recon soln (1 source) Start: 07-28-2024 Glucagon Hcl ( Glucagon (Hcl) Emergency Kit) 1 mg recon soln Active 1 mg SC Q20M as needed for HYPOGLYCEMIA July 28, 2024 12:00am until target blood sugar attained Insulin Degludec (Tresiba Flextouch U-100) 100 unit/mL (3 mL) insulin pen (3 sources) Start: 03-13-2025 Insulin Deglud ec (Tresiba Flextouch U-100) 100 unit/mL (3 mL) insulin pen Active 16 U SC TWICE A DAY March 13, 2025 10:32am Start: 02-23-2025 End: 03-13-2025 Insulin Degludec (Tresiba Fl extouch U-100) 100 unit/mL (3 mL) insulin pen Discontinued 22 U SC TWICE A DAY 15 0 February 23, 2025 12:00am March 13, 2025 10:37am Start: 08-22-2024 End: 02-23-2025 Insulin Degludec (Tresiba Fl extouch U-100) 100 unit/mL (3 mL) insulin pen Discontinued 16 U SC TWICE A DAY August 22, 2024 12:00am February 23, 2025 10:12pm DIABETES 3 ml insulin aspart, human 100 unt/ml pen injector (11 sources) Insulin Analogue Start: 03-13-2025 Insulin Aspar t (Niacinamide) (Fiasp Flextouch U-100 Insulin) 100 unit/mL (3 mL) insulin pen Active 20 U SC THREE TIMES A DAY 18 5 March 13, 2025 12:00am Type 2 diabetes mellitus Type 2 diabetes mellitus without complications retirement (current) use of insulin Start: 02-23-2025 End: 03-13-2025 Insulin Aspart U-100 (Novolo g Flexpen U-100 Insulin) 100 unit/mL (3 mL) insulin pen Discontinued 5 U SC THREE TIMES A DAY 4.5 30 3 February 23, 2025 12:00am March 13, 2025 1:36pm Start: 02-08-2025 End: 02-13-2025 Insulin Aspart U-100 (Novolo g U-100 Insulin Aspart) 100 unit/mL solution Discontinued 5 U SC THREE TIMES A DAY 10 1 February 08, 2025 12:00am February 13, 2025 11:07am Start: 07-28-2024 End: 11-07-2024 Insulin Aspart U-100 (Novolo g Flexpen U-100 Insulin) 100 unit/mL (3 mL) insulin pen Discontinued 12 U SC THREE TIMES A DAY July 28, 2024 3:58pm November 07, 2024 11:25am DIABETES sliding scale based on blood sugar reading with meals and snacks 4 units with snack reported by patient Start: 10-09-2020 End: 07-28-2024 Insulin Aspart U-100 (Novolo g Flexpen U-100 Insulin) 100 unit/mL (3 mL) insulin pen Discontinued 15 U SC THREE TIMES A DAY 45 October 09, 2020 1:00am July 28, 2024 4:15pm Start: 06-29-2012 take 25 [IU] by subc utaneous injection in the morning NOVOLOG FLEXPEN 100 UNIT/ML SOLN 25 units sq in the am and in the evening INSULIN ASPART [id number] Joel Judge MD Start: 06-29-2012 End: 01-24-2015 take 25 [IU] by subcutaneous injection in the morning NOVOLOG FLEXPEN 100 UNIT/ML SOLN 25 units sq in the am and in the evening INSULIN ASPART [id number] Jonelle Ortez RN ketoconazole 20 mg/ml medicated shampoo (4 sources) Azole Antifungal Start: 07-28-2024 End: 08-22-2024 Ketoconazole 2 % shampoo Active 1 NMA TOPICAL DIRECTED as needed for FUNGAL INFECTION August 22, 2024 12:00am APPLY SHAMPOO TOPICALLY TWICE A WEEK NEEDED Start: 07-28-2024 End: 08-22-2024 Ketoconazole 2 % cream Activ e 1 NMA TOPICAL DAILY as needed for FUNGAL INFECTION August 22, 2024 12:00am losartan potassium 100 mg oral tablet (20 sources) Angiotensin 2 Receptor Rita Start: 08-22-2024 End: 02-13-2025 take 1 tablet by mouth once daily Losartan 100 mg tablet Active 100 mg PO DAILY 90 February 13, 2025 11:43am BLOOD PRESSURE Start: 12-31-2017 End: 08-22-2024 take 1 tablet by mouth once daily Losartan Potassium 100 MG Oral Tablet 1 (one) Tablet daily for 90 days Quantity: 90 {Tablet} Refills: 3 Ordered: 23-Jul-2021 Teresita Ruiz Start : 23-Jul-2021 Active Start: 01-31-2015 take 1 tablet by meg th once daily LOSARTAN POTASSIUM 100 MG TABS One tablet by mouth daily LOSARTAN POTASSIUM [id number] Rohini Díaz PA-C magnesium chloride 598 mg delayed release oral tablet (2 sources) Start: 08-22-2024 take 2 tablets by mouth once daily Magnesium Chloride 71.5 MG tablet,delayed release (DR/EC) Active 143 mg PO DAILY August 22, 2024 12:00am SUPPLEMENT Start: 12-26-2014 End: 08-22-2024 take 1 tablet by mouth once daily Magnesium Chloride 71.5 MG tablet,delayed release (DR/EC) Discontinued 71.5 mg PO DAILY December 26, 2014 1:00am August 22, 2024 7:04pm SUPPLEMENT metoprolol tartrate 100 mg oral tablet (20 sources) beta-Adrenergic Rita Start: 11-21-2024 take 1 tablet by mouth twice daily Metoprolol Tartrate 100 mg tablet Active 100 mg PO TWICE A DAY 180 November 21, 2024 3:20pm BLOOD PRESSURE Start: 06-01-2024 End: 11-21-2024 take 2 tablets by mouth twice daily Metoprolol Tartrate 50 mg tablet Discontinued 100 mg PO TWICE A DAY June 01, 2024 2:46pm November 21, 2024 3:20pm BLOOD PRESSURE Start: 04-18-2022 take 1 tablet by meg th twice daily Metoprolol Tartrate 50 MG Oral Tablet 1 (one) Tablet BID for 90 days Quantity: 180 {Tablet} Refills: 3 Ordered: 18-Apr-2022 Allegra Graves DO Start : 18-Apr-2022 Active Start: 03-25-2022 take 1 tablet by meg th twice daily Metoprolol Tartrate 50 MG Oral Tablet 1 (one) Tablet BID for 90 days Quantity: 180 {Tablet} Refills: 3 Ordered: 25-Mar-2022 Adrianna De Paz MD Start : 25-Mar-2022 Active Start: 07-23-2021 take 1 tablet by meg th twice daily Metoprolol Tartrate 50 MG Oral Tablet 1 (one) Tablet BID for 90 days Quantity: 180 {Tablet} Refills: 3 Ordered: 23-Jul-2021 Teresita Ruiz Mary Start : 23-Jul-2021 Active Start: 08-15-2020 take 1 tablet by meg th twice daily Metoprolol Tartrate 50 MG Oral Tablet 1 (one) Tablet BID for 90 days Quantity: 180 {Tablet} Refills: 3 Ordered: 15-Aug-2020 Allegra Graves DO Start : 15-Aug-2020 Active Comments: Rx by cardio Start: 06-11-2020 take 1 tablet by meg th twice daily Metoprolol Tartrate 50 MG Oral Tablet 1 (one) Tablet BID for 0 days Quantity: 180 {Tablet} Refills: 0 Ordered: 11-Jun-2020 Joseph HARRISON, Teresita Ruiz CNP, Teresita Meadows Start : 11-Jun-2020 Active Comments: Rx by cardio Start: 12-31-2017 End: 06-01-2024 take 1 tablet by mouth twice daily Metoprolol Tartrate 50 MG Oral Tablet 1 (one) Tablet BID for 0 days Quantity: 180 {Tablet} Refills: 0 Ordered: 02-Jan-2020 Joseph HARRISON, Arlet Joseph HARRISON, Teresita Meadows Start : 02-Jan-2020 Active Comments: Rx by cardio Start: 12-26-2014 End: 12-31-2017 take 2 tablets by mouth twice daily Metoprolol Tartrate 25 MG tablet Discontinued 50 mg PO TWICE A DAY 60 0 December 26, 2014 12:06pm December 31, 2017 2:29pm Start: 07-25-2014 End: 07-26-2014 take 1 tablet by mouth once daily Metoprolol Tartrate 25 MG tablet Discontinued 25 mg PO DAILY July 25, 2014 12:00am July 26, 2014 1:34pm Start: 02-04-2013 take 1 tablet by meg twice daily METOPROLOL TARTRATE 50 MG TABS One tablet by mouth twice daily METOPROLOL TARTRATE [id number] Joel Judge MD Start: 06-29-2012 End: 12-26-2014 take 1 tablet by mouth twice daily Metoprolol Tartrate 25 MG tablet Discontinued 25 mg PO TWICE A DAY December 24, 2014 1:00am December 26, 2014 12:06pm Comment on above: Rx by cardio nystatin 100 unt/mg topical powder (1 source) Polyene Antifungal Start: Nystatin 100,000 unit/gram powder Active 1 NMA TOPICAL TWICE A DAY as needed for FUNGAL INFECTION July 28, 2024 12:00am oxyCODONE hydrochloride 5 mg oral capsule (2 sources) Opioid Agonist Start: take 1 capsule by mouth twice daily as needed Oxycodone 5 mg capsule Active 5 mg PO TWICE A DAY as needed 0 March 13, 2025 12:00am Start: 08-23-2024 End: 02-13-2025 take 1 tablet by mouth every six hours as needed for pain Oxycodone 5 mg Tablet Discontinued 5 mg PO EVERY 6 HOURS as needed for pain 20 5 0 August 23, 2024 February 13, 2025 11:08am Intractable back pain Dorsalgia, unspecified levothyroxine sodium 0.025 mg oral tablet (20 sources) l-Thyroxine Start: 11-07-2024 End: 05-17-2025 take 1 tablet by mouth once daily Levothyroxine 25 mcg tablet Active 25 ug PO daily 90 0 May 17, 2025 2:23pm Start: 12-31-2021 take 1 tablet by meg th once daily Levothyroxine Sodium 25 MCG Oral Tablet 1 (one) Tablet daily for 0 days Quantity: 90 {Tablet} Refills: 3 Ordered: 31-Dec-2021 Teresita Ruiz Start : 31-Dec-2021 Active Start: 05-07-2021 End: 11-07-2024 take 1 capsule by mouth once daily Levothyroxine 25 mcg capsule Discontinued 25 ug PO DAILY May 07, 2021 12:00am November 07, 2024 11:55am THYROID Start: 09-19-2020 End: 05-07-2021 Levothyroxine 50 mcg tablet Discontinued 25 ug PO daily 0 September 19, 2020 10:54am May 07, 2021 11:22am Start: 01-02-2020 take 1 tablet by meg th once daily Levothyroxine Sodium 25 MCG Oral Tablet 1 (one) Tablet daily for 0 days Quantity: 90 {Tablet} Refills: 3 Ordered: 02-Jan-2020 Teresita Ruiz CNP, CNP, Mary E Start : 02-Jan-2020 Active Start: 01-01-2018 End: 09-19-2020 take 1 tablet by mouth once daily Levothyroxine 50 mcg tablet Discontinued 50 ug PO daily 0 January 01, 2018 1:00am September 19, 2020 10:56am Start: 12-28-2017 End: 01-01-2018 take 1 tablet by mouth once daily Levothyroxine 25 mcg tablet Discontinued 25 ug PO daily 0 December 28, 2017 1:00am January 01, 2018 3:12pm Start: 10-02-2017 take 1 tablet by meg th once daily LEVOTHYROXINE SODIUM 25 MCG TABS One tablet by mouth daily LEVOTHYROXINE SODIUM [id number] Joel Judge MD tiZANidine 2 mg oral capsule (2 sources) Central alpha-2 Adrenergic Agonist Start: 03-13-2025 take 1 capsule by mouth every eight hours as needed Tizanidine 2 mg capsule Active 2 mg PO Q8H as needed March 13, 2025 12:00am Start: 08-23-2024 End: 02-13-2025 take 1 tablet by mouth every eight hours as needed Tizanidine 2 mg Tablet Discontinued 2 mg PO EVERY 8 HOURS as needed for muscle spasticity 15 0 August 23, 2024 2:31pm February 13, 2025 11:09am trolamine salicylate 100 mg/ml topical cream (1 source) Start: 07-28-2024 Trolamine Salicylate (Myoflex) 10 % cream Active 1 NMA TOPICAL DAILY as needed for ARTHRITIS July 28, 2024 12:00am warfarin sodium 1 mg oral tablet (20 sources) Vitamin K Antagonist Start: 03-13-2025 take 1 tablet by mouth three times weekly Warfarin 1 mg tablet Active 1 mg PO 3 TIMES A WEEK March 13, 2025 12:00am Please contact the information source for Protocol details. Start: 02-13-2025 take 1 tablet by meg th once daily Warfarin 5 mg tablet Active 5 mg PO daily February 13, 2025 12:00am Please contact the information source for Protocol details. Start: 11-22-2024 Warfarin 4 mg tablet Active 4 mg PO .COMPLEX 180 3 November 22, 2024 1:00am take 1 tablet Mon, Tues, Weds, Thurs and 2 tablets (8 mg) on Thursday, Thursday and Thursday or DIRECTED ; Please give extra tablets. Please contact the information source for Protocol details. Start: 07-28-2024 End: 11-22-2024 Warfarin 1 mg tablet Discont inued 8 mg PO DAILY July 28, 2024 4:03pm November 22, 2024 12:38pm BLOOD THINNER taking daily x 1wk then will recheck in one week Please contact the information source for Protocol details. Start: 03-18-2022 take 1 tablet by meg th once daily Warfarin Sodium 5 MG Oral Tablet 1 (one) Tablet daily for 0 days Quantity: 30 {Tablet} Refills: 3 Ordered: 18-Mar-2022 Allegra Graves DO Start : 18-Mar-2022 Active Start: 09-13-2021 take 1 tablet by meg th once daily Warfarin Sodium 5 MG Oral Tablet 1 (one) Tablet daily for 0 days Quantity: 30 {Tablet} Refills: 3 Ordered: 13-Sep-2021 Teresita Ruiz CNP, CNP Arlet Start : 13-Sep-2021 Active Start: 07-23-2021 Warfarin Sodiu m 1 MG Oral Tablet 3 (three) Tablet daily for 90 days Quantity: 270 {Tablet} Refills: 3 Ordered: 23-Jul-2021 Teresita Ruiz Start : 23-Jul-2021 Active Comments: Pt takes a total of 8mg daily. takes 3- 1mg tablets along with 1- 5mg tablet for a total of 8mg daily. This is subject to change based off of results of INR Start: 04-26-2021 Warfarin Sodiu m 1 MG Oral Tablet 3 (three) Tablet daily for 90 days Quantity: 270 {Tablet} Refills: 3 Ordered: 26-Apr-2021 Teresita Ruiz CNP, CNP Arlet Start : 26-Apr-2021 Active Comments: Pt takes a total of 8mg daily. takes 3- 1mg tablets along with 1- 5mg tablet for a total of 8mg daily. This is subject to change based off of results of INR Start: 04-24-2021 Warfarin Sodiu m 1 MG Oral Tablet 3 (three) Tablet daily for 90 days Quantity: 270 {Tablet} Refills: 3 Ordered: 24-Apr-2021 Teresita Ruiz CNP, CNP Arlet Start : 24-Apr-2021 Active Comments: Pt takes a total of 8mg daily. takes 3- 1mg tablets along with 1- 5mg tablet for a total of 8mg daily. This is subject to change based off of results of INR Start: 01-14-2021 take 1 tablet by meg th once daily Warfarin Sodium 1 MG Oral Tablet 1 (one) Tablet daily as directed for 90 days Quantity: 90 {Tablet} Refills: 3 Ordered: 14-Jan-2021 Joseph HARRISON Teresita Jordan CNP Start : 14-Jan-2021 Active Start: 10-09-2020 End: 07-28-2024 take 2 tablets by mouth once daily Warfarin 1 mg tablet Discontinued 2 mg PO DAILY October 09, 2020 1:00am July 28, 2024 4:15pm Please contact the information source for Protocol details. Start: 03-02-2020 take 1 tablet by meg th once daily Warfarin Sodium 1 MG Oral Tablet 1 (one) Tablet daily as directed for 0 days Quantity: 90 {Tablet} Refills: 3 Ordered: 02-Mar-2020 Joseph HARRISON Teresita Ruiz HUNTER Teresita Meadows Start : 02-Mar-2020 Active Comments: Take 6mg Tues and [place] 7mg all other days Start: 01-02-2020 take 1 tablet by meg th once daily Warfarin Sodium 5 MG Oral Tablet 1 (one) Tablet daily for 0 days Quantity: 30 {Tablet} Refills: 3 Ordered: 02-Jan-2020 Joseph AHRRISON Teresita Jordan CNP Start : 02-Jan-2020 Active Start: 12-26-2014 End: 07-28-2024 COUMADIN 5 MG TABS Ju b y Dr. Sun WARFARIN SODIUM [id number] Jonelle Ortez RN Comment on above: Take 6mg Tues and Th urstake 7mg all other days Pt takes a total of 8mg daily. takes 3- 1mg tablets along with 1- 5mg tablet for a total of 8mg daily. This is subject to change based off of results of INR Completed/Discontinued Medications Medication Drug Class(es) Dates Sig (Normalized) Sig (Original) [id number] 200 actuat albuterol 0.09 mg/actuat metered dose inhaler (20 sources) beta2-Adrenergic Agonist Start: 11-28-2020 take 2 puff(s) by inhalation four times daily as needed Albuterol Sulfate HFA 108 (90 Base) MCG/ACT Inhalation Aerosol Solution 2 (two) Puff qid prn for 0 days Quantity: 1 {Inhaler} Refills: 0 Ordered: 28-Nov-2020 Dante Salmon LPN Start : 28-Nov-2020 Active Start: 11-28-2020 take 2 puff(s) by in halation four times daily as needed Albuterol Sulfate HFA 108 (90 Base) MCG/ACT Inhalation Aerosol Solution 2 (two) Puff qid prn for 0 days Quantity: 1 {Inhaler} Refills: 0 Ordered: 28-Nov-2020 Dante Salmon LPN Start : 28-Nov-2020 Active Albuterol Sulfate HFA 108 (90 Base) MCG/ACT Inhalation Aerosol Solution (9 sources) Start: 11-28-2020 take 2 puff(s) by inhalation four times daily as needed Albuterol Sulfate HFA 108 (90 Base) MCG/ACT Inhalation Aerosol Solution 2 (two) Puff qid prn for 0 days Quantity: 1 {Inhaler} Refills: 0 Ordered: 28-Nov-2020 Dante Salmon LPN Start : 28-Nov-2020 Active Start: 11-28-2020 take 2 puff(s) by in halation four times daily as needed Albuterol Sulfate HFA 108 (90 Base) MCG/ACT Inhalation Aerosol Solution 2 (two) Puff qid prn for 0 days Quantity: 1 {Inhaler} Refills: 0 Ordered: 28-Nov-2020 Teresita Ruiz CNP, CNP, Mary E Start : 28-Nov-2020 Active amLODIPine 2.5 mg oral tablet (14 sources) Dihydropyridine Calcium Channel Rita Start: 12-31-2017 End: 06-03-2018 take 1 tablet by mouth once daily Amlodipine 2.5 mg tablet Discontinued 2.5 mg PO daily 90 March 19, 2018 9:56am June 03, 2018 10:15am Start: 01-24-2015 take 1 tablet by meg th once daily NORVASC 5 MG TABS One tablet by mouth daily AMLODIPINE BESYLATE [id number] Rohini Díaz PA-C Start: 01-24-2015 take 1 tablet by meg th once daily NORVASC 10 MG TABS One tablet by mouth daily AMLODIPINE BESYLATE [id number] Jonelle Ortez RN Start: 01-24-2015 take 1 tablet by meg th once daily AMLODIPINE BESYLATE 2.5 MG TABS One tablet by mouth daily AMLODIPINE BESYLATE [id number] Rohini Díaz PA-C Start: 12-26-2014 End: 12-31-2017 take 2 tablets by mouth once daily Amlodipine 5 MG tablet Discontinued 10 mg PO DAILY 30 0 December 26, 2014 12:06pm December 31, 2017 2:29pm Start: 07-26-2014 End: 12-26-2014 take 1 tablet by mouth once daily Amlodipine 5 MG tablet Discontinued 5 mg PO DAILY 30 0 July 26, 2014 12:00am December 26, 2014 12:06pm Antiseptic Powder for sensitive skin (20 sources) Antiseptic Powde r for sensitive skin Inactive aspirin 325 mg oral tablet (13 sources) Nonsteroidal Anti-inflammatory Drug Start: 2 End: 5 take 1 tablet by mouth at bedtime Aspirin 325 MG tablet Discontinued 325 mg PO AT BEDTIME July 25, 2014 12:00am December 26, 2014 12:05pm Blood Glucose Monitor System w/Device Kit (20 sources) Start: End: Blood Glucose Monitor System w/Device Kit 1 (one) Each check as directed for 0 days Quantity: 1 {Each} Refills: 0 Ordered: 11-Mar-2021 Madison Greer LPN Start : 27-Feb-2021 End : 11-Mar-2021 Inactive Comments: DEVICE ONLYGive device that insurance will [id number] Start: 02-27-2021 Blood Glucose Monitor System w/Device Kit 1 (one) Each check as directed for 0 days Quantity: 1 {Each} Refills: 0 Ordered: 27-Feb-2021 Dante Salmon LPN Start : 27-Feb-2021 Active Comments: DEVICE ONLYGive device that insurance will [id number] Comment on above: DEVICE ONLYGive patricia ce that insurance will [id number] budesonide 0.032 mg/actuat metered dose nasal spray (20 sources) Corticosteroid Start: 06-26-20 08 End: 12-04-19 09 RHINOCORT AQUA, 32MCG/ACT (Nasal Suspension) 1 (one) Suspension 1 spray nostril daily for 0 days Quantity: 1 {Suspension} Refills: 0 Ordered: 26-Jun-2008 Poonam Mae Start : 26-Jun-2008 End : 04-Dec-2008 Discontinued canagliflozin 100 mg oral tablet (19 sources) Sodium-Glucose Cotransporter 2 Inhibitor Start: 01-25-20 take 1 tablet by mouth three times daily INVOKANA 100 MG TABS One tablet by mouth three times daily CANAGLIFLOZIN [id number] Rohini Díaz PA-C Start: 01-24-2015 End: 09-25-2016 take 1 tablet by mouth once daily INVOKANA 300 MG TABS One tablet by mouth daily CANAGLIFLOZIN [id number] Joel Judge MD Start: 12-24-2014 End: 12-31-2017 take 1 tablet by mouth once daily INVOKANA 100 MG TABS One tablet by mouth daily CANAGLIFLOZIN [id number] Jonelle Ortez RN Start: 02-07-2014 End: 08-09-2014 take 1 tablet by mouth once daily INVOKANA 100 MG TABS One tablet by mouth daily CANAGLIFLOZIN [id number] Rohini Díaz PA-C chlorthalidone 25 mg oral tablet (4 sources) Thiazide-like Diuretic Start: 12-31-2017 End: 06-03-2018 take 1 tablet by mouth once daily Chlorthalidone 25 mg tablet Discontinued 25 mg PO daily December 31, 2017 1:00am June 03, 2018 10:18am Start: 03-18-2016 take 1 tablet by meg once daily CHLORTHALIDONE 25 MG TABS One tablet by mouth daily CHLORTHALIDONE [id number] Rohini Díaz PA-C 24 hr clarithromycin 500 mg extended release oral tablet (20 sources) Macrolide Antimicrobial Start: 06-26-2008 End: 07-25-2008 take 2 tablets by mouth once daily BIAXIN XL PAC, 500MG (Oral Tablet Extended Release 24 Hour) 2 (two) Tablet ER 24HR daily for 14 days Refills: 0 Ordered: 26-Jun-2008 [place] LPN Start : 26-Jun-2008 End : 25-Jul-2008 Inactive Start: 06-26-2008 End: 07-25-2008 take 2 tablets by mouth once daily BIAXIN XL PAC, 500MG (Oral Tablet Extended Release 24 Hour) 2 (two) Tablet ER 24HR daily for 14 days Refills: 0 Ordered: 26-Jun-2008 Tay La BENNETT Start : 26-Jun-2008 End : 25-Jul-2008 Inactive emollient clobetasol propionate 0.5 mg/ml topical cream (20 sources) Corticosteroid Start: 07-16-2020 Clobetasol Prop Emollient Base 0.05 % External Cream 1 (one) Application bid for 30 days Quantity: 1 {Tube} Refills: 3 Ordered: 16-Jul-2020 Dante Salmon LPN Start : 16-Jul-2020 Active codeine phosphate 2 mg/ml / guaiFENesin 20 mg/ml oral solution (20 sources) Opioid Agonist Start: 06-26-2008 End: 12-04-2008 GUAIATUSSIN AC, 100-10MG/5ML (Oral Syrup) 1 Syrup 1 tsp qhs for 0 days Quantity: 6 {Ounce(s)} Refills: 0 Ordered: 26-Jun-2008 Poonam Mae Start : 26-Jun-2008 End : 04-Dec-2008 Discontinued docusate sodium 50 mg / sennosides, snf 8.6 mg oral tablet (1 source) Start: 08-23-2024 End: 02-13-2025 Sennosides-Docusat e Sodium (Stimulant Laxative Plus) 8.6-50 mg Tablet Discontinued 2 {tbl} PO TWICE DAILY NEEDED as needed for Constipation August 23, 2024 12:00am February 13, 2025 11:09am ezetimibe 10 mg oral tablet (20 sources) Dietary Cholesterol Absorption Inhibitor Start: 06-14-2010 End: 12-27-2019 take 1 tablet by mouth once daily Zetia 10 MG Oral Tablet 1 (one) Tablet qd for 0 days Quantity: 90 {Tablet} Refills: 3 Ordered: 27-Dec-2019 Dante Salmon LPN Start : 14-Jun-2010 End : 27-Dec-2019 Inactive famotidine 40 mg oral tablet (20 sources) Histamine-2 Receptor Antagonist Start: 03-27-2020 End: 06-01-2024 take 1 tablet by mouth once daily Famotidine 40 mg tablet Discontinued 40 mg PO DAILY May 07, 2021 12:00am June 01, 2024 2:45pm fluocinolone acetonide 0.1 mg/ml topical oil (6 sources) Start: 09-18-2015 End: 09-25-2016 FLUOCINOLONE ACETONIDE BODY 0.01 % OIL Apply as directed FLUOCINOLONE ACETONIDE [id number] Joel Judge MD FreeStyle Jerri 14 Day [place] Device (20 sources) Start: 03-13-2021 End: 03-22-2021 FreeStyle Jerir 14 Day [place] Device 1 (one) Device uad for 0 days Quantity: 1 {Package} Refills: 0 Ordered: 22-Mar-2021 Dante Salmon LPN Start : 13-Mar-2021 End : 22-Mar-2021 Inactive Comments: BILL UNDER MEDICARE PART B Start: 03-13-2021 FreeStyle Libr e 14 Day [place] Device 1 (one) Device uad for 0 days Quantity: 1 {Package} Refills: 0 Ordered: 13-Mar-2021 Ciesa 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, Arlet Ciesa 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, Arlet Start : 13-Mar-2021 Active Comments: BILL UNDER MEDICARE PART B Start: 03-11-2021 FreeStyle Libr e 14 Day [place] Device 1 (one) Device uad for 0 days Quantity: 1 {Package} Refills: 0 Ordered: 11-Mar-2021 Ciesa 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, Arlet Ciesa 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, Arlet Start : 11-Mar-2021 Active Comment on above: BILL UNDER MEDICARE PART B FreeStyle Jerri 14 Day Sensor Miscellaneous (5 sources) Start: 03-13-2021 End: 03-22-2021 FreeStyle Jerri 14 Day Sensor Miscellaneous as directed for 0 days Quantity: 2 {Package} Refills: 0 Ordered: 22-Mar-2021 Dante Salmon LPN Start : 13-Mar-2021 End : 22-Mar-2021 Inactive Comments: BILL UNDER MEDICARE PART B Start: 03-13-2021 FreeStyle Libr e 14 Day Sensor Miscellaneous as directed for 0 days Quantity: 2 {Package} Refills: 0 Ordered: 13-Mar-2021 Teresita Ruiz CNP, CNP, Mary E Start : 13-Mar-2021 Active Comments: BILL UNDER MEDICARE PART B Start: 03-11-2021 FreeStyle Libr e 14 Day Sensor Miscellaneous as directed for 0 days Quantity: 2 {Package} Refills: 0 Ordered: 11-Mar-2021 Teresita Ruiz CNP, CNP, Mary E Start : 11-Mar-2021 Active Comment on above: BILL UNDER MEDICARE PART B glimepiride 2 mg oral tablet (20 sources) Sulfonylurea Start: End: take 1 tablet by mouth twice daily Glimepiride 2 MG Oral Tablet 1 (one) Tablet BID for 0 days Quantity: 180 {Tablet} Refills: 3 Ordered: 31-Dec-2021 Teresita Ruiz Start : 31-Dec-2021 Active Start: 01-02-2020 take 1 tablet by meg th twice daily Glimepiride 2 MG Oral Tablet 1 (one) Tablet BID for 0 days Quantity: 180 {Tablet} Refills: 3 Ordered: 02-Jan-2020 Teresita Ruiz CNP, CNP, Mary E Start : 02-Jan-2020 Active Start: 07-25-2014 End: 05-07-2021 take 2 mg by mouth twice daily Glimepiride 4 MG tablet Discontinued 2 mg PO TWICE A DAY July 25, 2014 12:00am May 07, 2021 11:24am Start: 02-04-2013 take 1 tablet by meg th twice daily GLIMEPIRIDE 4 MG TABS One tablet by mouth twice daily GLIMEPIRIDE [id number] Joel Judge MD Start: 06-29-2012 take 1 tablet by meg th twice daily GLIMEPIRIDE 2 MG TABS One tablet by mouth twice daily GLIMEPIRIDE [id number] Joel Judge MD glucose tablets (1 source) Start: 07-28-2024 End: 08-22-2024 glucose tablets Discontinued SL as needed July 28, 2024 12:00am August 22, 2024 6:06pm for blood glucose below 70 glyBURIDE 2.5 mg / metFORMIN hydrochloride 500 mg oral tablet (20 sources) Biguanide, Sulfonylurea Start: 06-14-2010 End: 12-27-2019 take 2 tablets by mouth twice daily glyBURIDE-metFORMI N 2.5-500 MG Oral Tablet 2 (two) Tablet BID for 0 days Quantity: 360 {Tablet} Refills: 3 Ordered: 27-Dec-2019 Dante Salmon LPN Start : 14-Jun-2010 End : 27-Dec-2019 Inactive End: 12-04-2008 take 1 tablet by mouth once daily GLUCOVANCE, 2.5-500MG (Oral Tablet) 1 QD for 0 days Refills: 0 Ordered: 04-Dec-2008 Poonam Mae End : 04-Dec-2008 Discontinued guaiFENesin 20 mg/ml oral solution (1 source) Start: 10-09-2020 End: 05-07-2021 take 200 mg by mouth every four hours as needed Guaifenesin (Diabetic Tussin Ex) 100 mg/5 mL liquid Discontinued 200 mg PO Q4H as needed October 09, 2020 1:00am May 07, 2021 11:24am Humalog- 15u with meals and 8u with snacks (20 sources) Humalog- 15u wit h meals and 8u with snacks Inactive Humalog- 15u wit h meals and 8u with snacks Active hydroCHLOROthiazide 25 mg oral tablet (19 sources) Thiazide Diuretic Start: 05-07-2021 take 1 tablet by mouth once daily hydroCHLOROthiazide 25 MG Oral Tablet 1 (one) Tablet daily for 0 days Quantity: 30 {Tablet} Refills: 0 Ordered: 10-Jun-2021 Teresita Ruiz Start : 10-Jun-2021 Active hydroCHLOROthiazide 25 mg / telmisartan 80 mg oral tablet (20 sources) Thiazide Diuretic, Angiotensin 2 Receptor Rita Start: 07-25-2008 End: 07-26-2008 take 1 tablet by mouth once daily MICARDIS HCT, 80-25MG (Oral Tablet) 1 Tablet QD for 0 days Refills: 0 Ordered: 25-Jul-2008 Maria Del Rosario Machado DO Start : 25-Jul-2008 End : 26-Jul-2008 Discontinued hydroCHLOROthiazide 12.5 mg / valsartan 160 mg oral tablet (20 sources) Thiazide Diuretic, Angiotensin 2 Receptor Rita Start: 06-14-2010 End: 12-27-2019 take 1 tablet by mouth twice daily Diovan HCT 160-12.5 MG Oral Tablet 1 (one) Tablet bid for 0 days Quantity: 180 {Tablet} Refills: 3 Ordered: 27-Dec-2019 Dante Salmon LPN Start : 14-Jun-2010 End : 27-Dec-2019 Inactive Insulin Degludec (Tresiba U-100 Insulin) 100 unit/mL solution (1 source) Start: 07-28-2024 End: 08-22-2024 Insulin Degludec (Tresiba U-100 Insulin) 100 unit/mL solution Discontinued 16 U SC TWICE A DAY July 28, 2024 12:00am August 22, 2024 4:15pm AM PM 3 ml insulin detemir 100 unt/ml pen injector (20 sources) Insulin Analogue Start: 09-15-2024 End: 11-07-2024 Insulin Detemir U-100 100 unit/mL (3 mL) insulin pen Discontinued 24 U SC DAILY 15 0 September 15, 2024 2:01pm November 07, 2024 11:25am Start: 06-01-2024 End: 09-15-2024 Insulin Detemir U-100 100 un it/mL (3 mL) insulin pen Discontinued 22 U SC DAILY June 01, 2024 2:44pm September 15, 2024 2:01pm Start: 10-15-2021 Levemir FlexTo uch 100 UNIT/ML Subcutaneous Solution Pen-injector 1 (one) Solution Pen-injector 20 units twice daily for 0 days Quantity: 3 {Pre-filled_Pen_Syringe} Refills: 3 Ordered: 15-Oct-2021 Joseph Teresita Start : 15-Oct-2021 Active Start: 10-09-2020 End: 06-01-2024 Insulin Detemir U-100 100 un it/mL (3 mL) insulin pen Discontinued 20 U SC DAILY 18 October 09, 2020 11:01am June 01, 2024 2:46pm Start: 10-09-2020 End: 10-09-2020 Insulin Detemir U-100 100 un it/mL (3 mL) insulin pen Discontinued 20 U SC TWICE A DAY October 09, 2020 10:39am October 09, 2020 11:02am Start: 05-21-2020 Levemir FlexTo uch 100 UNIT/ML Subcutaneous Solution Pen-injector 1 (one) Solution Pen-injector 20 units twice daily for 0 days Quantity: 3 {Pre-filled_Pen_Syringe} Refills: 3 Ordered: 21-May-2020 Teresita Ruiz CNP, CNP, Mary E Start : 21-May-2020 Active Start: 02-21-2020 Levemir FlexTo uch 100 UNIT/ML Subcutaneous Solution Pen-injector 1 (one) Solution Pen-injector 20 units twice daily for 0 days Quantity: 3 {Pre-filled_Pen_Syringe} Refills: 3 Ordered: 21-Feb-2020 Teresita Ruiz CNP, CNP, Mary E Start : 21-Feb-2020 Active Start: 07-25-2014 End: 10-09-2020 Insulin Detemir U-100 100 UNITS/ML insulin pen Discontinued 70 U SC TWICE A DAY July 25, 2014 12:00am October 09, 2020 10:41am Start: 02-07-2014 take 70 [IU] by subc utaneous injection twice daily LEVEMIR 100 UNIT/ML SOLN 70 units SQ twice daily INSULIN DETEMIR [id number] Jonelle Ortez RN Start: 02-07-2014 take 55 [IU] by subc utaneous injection twice daily LEVEMIR 100 UNIT/ML SOLN 55 units SQ twice daily INSULIN DETEMIR [id number] Joel Judge MD Start: 02-07-2014 take 80 [IU] by subc utaneous injection twice daily LEVEMIR 100 UNIT/ML SOLN 80 units SQ twice daily INSULIN DETEMIR [id number] Rohini Díaz PA-C Start: 02-04-2013 take 1 [IU] by subcu taneous injection twice daily LEVEMIR 100 UNIT/ML SOLN 40n units SQ twice daily INSULIN DETEMIR [id number] Joel Judge MD LIRAGLUTIDE SOLN (6 sources) GLP-1 Receptor Agonist Start: 02-07-2014 End: 08-09-2014 VICTOZA SOPN 1.8mg, 0.6 mg SQ once a day LIRAGLUTIDE SOLN [id number] Rohini Díaz PA-C Start: 02-07-2014 VICTOZA SOPN 1 .8mg, 0.6 mg SQ once a day LIRAGLUTIDE SOLN [id number] Joel Judge MD lisinopril 20 mg oral tablet (20 sources) Angiotensin Converting Enzyme Inhibitor Start: 06-23-2012 take 1 tablet by mouth once daily LISINOPRIL 10 MG TABS One tablet by mouth daily LISINOPRIL [id number] Joel Judge MD Start: 06-14-2010 End: 12-27-2019 take 1 tablet by mouth twice daily Lisinopril 20 MG tablet Discontinued 20 mg PO TWICE A DAY July 25, 2014 12:00am December 31, 2017 2:28pm magnesium (3 sources) Start: 01-24-2015 take 1 tablet by mouth once daily MAGNESIUM CAPS slo mag. One tablet by mouth daily MAGNESIUM CAPS [id number] Joel Judge MD Magnesium Chloride Crystals (20 sources) Magnesium Chlori de Crystals daily Active MAGNESIUM CHLORIDE-CALCIUM (3 sources) Start: 01-24-2015 take 1 tablet by mouth once daily SLOW MAGNESIUM/CALCIUM 64-106 MG ORAL TBEC One tablet by mouth daily MAGNESIUM CHLORIDE-CALCIUM [id number] Jole Judge MD magnesium oxide 400 mg oral capsule (3 sources) Start: 01-24-2015 take 1 tablet by mouth once daily MAGNESIUM OXIDE 400 MG CAPS One tablet by mouth daily MAGNESIUM OXIDE [id number] Rohini Díaz PA-C omeprazole 40 mg delayed release oral capsule (14 sources) Proton Pump Inhibitor Start: 06-29-2012 End: 10-09-2020 take 1 capsule by mouth once daily Omeprazole 40 MG capsule Discontinued 40 mg PO DAILY 30 0 July 26, 2014 1:35pm October 09, 2020 10:41am Start: 06-29-2012 take 1 tablet by meg once daily OMEPRAZOLE 20 MG CPDR One tablet by mouth daily OMEPRAZOLE [id number] Rohini Díaz PA-C pantoprazole 40 mg delayed release oral tablet (20 sources) Proton Pump Inhibitor Start: 06-14-2010 End: 12-27-2019 Protonix 40 MG Oral Tablet Delayed Release [address] QD for 0 days Quantity: 90 {Tablet_DR} Refills: 3 Ordered: 27-Dec-2019 Dante Salmon LPN Start : 14-Jun-2010 End : 27-Dec-2019 Inactive Comments: generic Comment on above: generic pioglitazone 15 mg oral tablet (20 sources) Peroxisome Proliferator Receptor alpha Agonist, Peroxisome Proliferator Receptor gamma Agonist, Thiazolidinedione Start: 09-25-2016 End: 10-02-2017 PIOGLITAZONE HCL 15 MG TABS 45mg daily in the evening PIOGLITAZONE HCL [id number] Joel Judge MD Start: 06-14-2010 End: 12-27-2019 take 1 tablet by mouth once daily Actos 15 MG Oral Tablet 1 (one) Tablet qd for 0 days Quantity: 90 {Tablet} Refills: 3 Ordered: 27-Dec-2019 Dante Salmon LPN Start : 14-Jun-2010 End : 27-Dec-2019 Inactive potassium chloride 10 meq extended release oral tablet (6 sources) Start: 05-09-2015 End: 06-26-2015 take 1 tablet by mouth once daily POTASSIUM CHLORIDE ER 10 MEQ CR-TABS One tablet by mouth daily POTASSIUM CHLORIDE [id number] Rohini Díaz PA-C rimegepant 75 mg disintegrating oral tablet (1 source) Start: 06-01-2024 End: 07-28-2024 take 1 tablet by mouth once as needed Rimegepant (Nurtec Odt) 75 mg tablet,disintegra ting Discontinued 75 mg PO ONCE as needed June 01, 2024 12:00am July 28, 2024 4:14pm as a single dose rivaroxaban 10 mg oral tablet (6 sources) Factor Xa Inhibitor Start: 06-23-2012 End: 06-29-2012 take 1 tablet by mouth once daily XARELTO 10 MG TABS One tablet by mouth daily RIVAROXABAN [id number] Joel Judge MD rosiglitazone 4 mg oral tablet (20 sources) Peroxisome Proliferator Receptor gamma Agonist, Thiazolidinedione Start: 03-05-2009 End: 03-05-2009 take 1 tablet by mouth once daily AVANDIA, 4MG (Oral Tablet) 1 Tablet QD for 0 days Quantity: 90 {Tablet} Refills: 3 Ordered: 05-Mar-2009 Maria Del Rosario Machado DO Start : 05-Mar-2009 End : 05-Mar-2009 Discontinued Semaglutide (3 sources) Start: 08-22-2024 End: 08-22-2024 Semaglutide (Ozempic) 0.25 mg or 0.5 mg (2 mg/3 mL) pen injector Discontinued mg SC August 22, 2024 12:00am August 22, 2024 6:05pm Start: 07-28-2024 End: 07-28-2024 Semaglutide (Ozempic) 0.25 m g or 0.5 mg (2 mg/3 mL) pen injector Discontinued 0.5 mg SC EVERY WEEK July 28, 2024 12:00am July 28, 2024 5:12pm Start: 06-01-2024 End: 07-28-2024 Semaglutide (Ozempic) 0.25 m g or 0.5 mg (2 mg/3 mL) pen injector Discontinued 0.5 mg SC EVERY WEEK June 01, 2024 12:00am July 28, 2024 4:56pm simvastatin 20 mg oral tablet (4 sources) HMG-CoA Reductase Inhibitor Start: 06-29-2012 End: 12-31-2017 take 1 tablet by mouth at bedtime Simvastatin 20 MG tablet Discontinued 20 mg PO AT BEDTIME July 25, 2014 12:00am December 31, 2017 2:30pm triamcinolone acetonide 0.055 mg/actuat metered dose nasal spray (20 sources) Corticosteroid Start: 07-03-2008 End: 12-04-2008 NASACORT AQ, 55MCG/ACT (Nasal Aerosol Solution) Aerosol Soln 2 sprays each nostril daily for 0 days Quantity: 1 {Aerosol_Soln} Refills: 0 Ordered: 03-Jul-2008 Poonam Mae Start : 03-Jul-2008 End : 04-Dec-2008 Discontinued Start: 07-03-2008 End: 12-04-2008 NASACORT AQ, 55MCG/ACT (Nasa l Aerosol Solution) Aerosol Soln 2 sprays each nostril daily for 0 days Quantity: 1 {Aerosol_Soln} Refills: 0 Ordered: 03-Jul-2008 Poonam Mae Start : 03-Jul-2008 End : 04-Dec-2008 Discontinued ubrogepant 100 mg oral tablet (1 source) Start: 06-01-2024 End: 07-28-2024 take 1 tablet by mouth once Ubrogepant (Ubrelvy) 100 mg tablet Discontinued 100 mg PO ONCE June 01, 2024 12:00am July 28, 2024 4:14pm as a single dose; may repeat once in >=2 hours after first dose if needed B COMPLEX VITAMINS (6 sources) Start: 06-29-2012 take 1 tablet by mouth once daily VITAMIN B COMPLEX TABS One tablet by mouth daily B COMPLEX VITAMINS [id number] Joel Judge MD Start: 06-29-2012 End: 01-24-2015 take 1 tablet by mouth once daily VITAMIN B COMPLEX TABS One tablet by mouth daily B COMPLEX VITAMINS [id number] Jonelle Ortez RN CHOLECALCIFEROL TABS (6 sources) Start: 08-09-2014 End: 01-24-2015 VITAMIN D TABS weekly 08/09 CHOLECALCIFEROL TABS [id number] Jonelle Ortez RN Start: 08-09-2014 VITAMIN D TABS weekly CHOLECALCIFEROL TABS [id number] Rohini Díaz PA-C Vitamin D3 (20 sources) Vitamin D3 2000 IU Active Problems Active Problems Problem Classification Problem Date Documented Da te Episodic/Chronic Abdominal hernia (20 sources) Hiatal hernia; 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: [Hiatal hernia] 04-13-2020 Episodic Administrative/social admission (1 source) Procedure needed 09-15-2024 Episodic Cardiac and circulatory congenital anomalies (3 sources) Bicuspid aortic valve; 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: [Congenital insufficiency of aortic valve] Onset: 3 02-04-2013 Chronic Cardiac dysrhythmias (20 sources) Paroxysmal atrial fibrillation; 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: [Atrial fibrillation with rapid ventricular response] Onset: 2 06-23-2012 Chronic Comment on above: remains on coumadin remains on coumadin taking 6 MTues and 7mg other days (this isnot what is on label) on coumadin sees Ofo ri Chronic kidney disease (2 sources) Chronic kidney disease; 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: [Chronic kidney disease, unspecified] 03-13-2025 Chronic Chronic kidney disease (2 sources) Chronic kidney disease; 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: [Chronic kidney disease, stage 3a] Onset: 4 Chronic obstructive pulmonary disease and bronchiectasis (20 sources) Bronchitis; 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: [Bronchitis] Resolved: 9 12-26-2019 Episodic Chronic obstructive pulmonary disease and bronchiectasis (20 sources) Chronic obstructive pulmonary disease and bronchiectasis Coagulation and hemorrhagic disorders (2 sources) Other thrombophilia; 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: [Hypercoagulable state due to atrial fibrillation] Onset: 4 08-31-2024 Chronic Complication of device; implant or graft (6 sources) Arteriosclerosis of coronary artery bypass graft; 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: [Atherosclerosis of coronary artery bypass graft(s) without angina pectoris] Onset: 4 Resolved: 4 02-13-2014 Chronic Coronary atherosclerosis and other heart disease (7 sources) Atherosclerotic heart disease of [place] coronary artery without angina pectoris; 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: [Non-obstructive atherosclerosis of coronary artery] Onset: 5 01-24-2015 Chronic Coronary atherosclerosis and other heart disease (20 sources) Coronary atherosclerosis and other heart disease Diabetes mellitus with complications (20 sources) Type II diabetes mellitus uncontrolled; 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: [Uncontrolled type II diabetes mellitus] Onset: 4 04-13-2020 Chronic Comment on above: uncontrolled, glimep eride 2mg 1 bid, levemir 20 bid uncontrolled, glimep eride 2mg 1 bid, levemir [address] Cobb uncontrolled, glimep eride 2mg 1 bid, levemir 28 u q hs, takes 16 u with meals and [address] Cobb Diabetes mellitus without complication (20 sources) Diabetes mellitus; 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: [Type 2 diabetes mellitus] Onset: 2 06-23-2012 Chronic Comment on above: uncontrolled, glimep eride 2mg 1 bid, levemir 20 bid Diabetes mellitus without complication (20 sources) Diabetes mellitus without complication; 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: [Type 2 diabetes mellitus] Disorders of lipid metabolism (20 sources) Hyperlipidemia; 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: [Mixed hyperlipidemia] Onset: 2 03-12-2012 Chronic Esophageal disorders (20 sources) Gastroesophageal reflux disease; 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: [GERD (gastroesophageal reflux disease)] 04-13-2020 Chronic Comment on above: chronic stable-alton nue present regimen Essential hypertension (20 sources) Hypertensive disorder; 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: [Benign hypertension] Onset: 2 06-23-2012 Chronic Comment on above: is on furosemide 40m g by Dr. Judge, also on atorvastatin was on furosemide [address] Judge, he took her off ,also on atorvastatin Genitourinary symptoms and ill-defined conditions (20 sources) Increased frequency of urination; 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: [Urinary frequency] 04-13-2020 Episodic Headache; including migraine (20 sources) Migraine; 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: [Migraine] 04-13-2020 Chronic Heart valve disorders (14 sources) Aortic valve stenosis; 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: [Aortic stenosis, non-rheumatic ] Onset: 4 02-13-2014 Chronic Comment on above: 2021 Immunizations and screening for infectious disease (20 sources) Need for prophylactic vaccination and inoculation against influenza; 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: [Needs influenza immunization] 07-16-2020 Episodic Nonspecific chest pain (20 sources) Chest pain; 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: [Chest pain] Resolved: 9 12-26-2019 Episodic Nutritional deficiencies (20 sources) Vitamin D deficiency; 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: [Vitamin D deficiency] 12-27-2019 Chronic Comment on above: she admits to noncom pliance with vitamin d Osteoarthritis (20 sources) Arthropathy of knee joint; 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] 10-07-2021 Chronic Osteoporosis (20 sources) Osteoporosis; 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: [Osteoporosis] Onset: 4 07-16-2020 Chronic Comment on above: BD from 05-01-20, wor sening osteoporois Other aftercare (20 sources) Drug therapy finding; 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: [Anticoagulated] 02-27-2021 Episodic Comment on above: on coumadin Other aftercare (1 source) Long-term current use of anticoagulant; 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: [retirement (current) use of anticoagulants] 06-03-2024 Episodic Other aftercare (1 source) Post-discharge follow-up; 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: [Encounter for follow-up examination after completed treatment for conditions other than malignant neoplasm] 09-15-2024 Episodic Other aftercare (2 sources) retirement (current) use of insulin; 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] Onset: 4 Episodic Other aftercare (1 source) retirement (current) use of anticoagulants; 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: [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] Onset: 5 Episodic Other and ill-defined heart disease (3 sources) Left ventricular hypertrophy; 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: [Cardiomegaly] Onset: 4 02-13-2014 Chronic Other bone disease and musculoskeletal deformities (20 sources) Osteopenia; 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: [Osteopenia] Resolved: 0 04-13-2020 Episodic Comment on above: Last density 05-06-16 Other connective tissue disease (20 sources) Pain in lower limb; 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: [Pain of lower leg, unspecified laterality] Resolved: 9 12-26-2019 Episodic Other connective tissue disease (20 sources) Pain in upper limb; 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: [Arm pain] 02-27-2021 Episodic Comment on above: bilateral upper arms bilateral upper arms comes and goes Other endocrine disorders (1 source) Hypoglycemia; 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: [Hypoglycemia, unspecified] 01-10-2022 Chronic Other gastrointestinal disorders (20 sources) Diarrhea; 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: [Diarrhea] 11-06-2020 Episodic Comment on above: x 6 this am, will te st for covid on going since Oct 17 2 Other inflammatory condition of skin (20 sources) Scalp psoriasis; 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] 07-16-2020 Chronic Other liver diseases (20 sources) Steatosis of liver; 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: [Fatty liver] 04-13-2020 Chronic Other liver diseases (20 sources) Fatty liver Chronic Other lower respiratory disease (20 sources) Cough; 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: [Cough] Resolved: 9 12-26-2019 Episodic Other nervous system disorders (1 source) Carpal tunnel syndrome; 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: [Carpal tunnel syndrome, unspecified upper limb] 07-28-2024 Chronic Other non-traumatic joint disorders (20 sources) Shoulder pain; 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: [Shoulder pain] Resolved: 9 12-26-2019 Episodic Comment on above: improving Other non-traumatic joint disorders (20 sources) Pain in right knee; 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: [Knee pain, bilateral] 10-07-2021 Episodic Other non-traumatic joint disorders (18 sources) Knee pain Episodic Other nutritional; endocrine; and metabolic disorders (20 sources) Hypomagnesemia; 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: [Hypomagnesemia] Onset: 6 04-16-2016 Chronic Comment on above: says taking magnesiu m chloride 2 daily Other nutritional; endocrine; and metabolic disorders (20 sources) Body mass index 30+ - obesity; 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: [BMI 37.0-37.9, adult] 04-13-2020 Chronic Other nutritional; endocrine; and metabolic disorders (20 sources) Body mass index 40+ - severely obese; 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: [BMI 40.0-44.9, adult] Resolved: 1 04-27-2020 Chronic Other nutritional; endocrine; and metabolic disorders (2 sources) Obesity; 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: [Obesity, unspecified] 03-13-2025 Chronic Other skin disorders (20 sources) Non-scarring alopecia; 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: [Nonscarring hair loss, unspecified] 04-13-2020 Episodic Other upper respiratory disease (20 sources) Allergic rhinitis due to other allergen; 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: [Allergic rhinitis] Chronic Other upper respiratory disease (20 sources) Allergic rhinitis; 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: [Allergic rhinitis due to other allergen] 04-13-2020 Chronic Comment on above: chronic stable-alton nue present regimen Other upper respiratory disease (1 source) Seasonal allergy; 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: [Other seasonal allergic rhinitis] 07-28-2024 Chronic Other upper respiratory infections (20 sources) Acute pharyngitis; 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: [Pharyngitis, acute] Resolved: 9 08-21-2015 Episodic Pulmonary heart disease (2 sources) Pulmonary arterial hypertension; 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: [Secondary pulmonary arterial hypertension] Onset: 4 08-31-2024 Chronic Residual codes; unclassified (20 sources) H/O: hysterectomy; 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: [History of hysterectomy] 04-13-2020 Episodic Comment on above: she thinks total Residual codes; unclassified (20 sources) Needs influenza immunization; 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: [Need for prophylactic vaccination and inoculation against influenza] 04-13-2020 Episodic Residual codes; unclassified (20 sources) Postmenopausal state; 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: [Postmenopausal (Renamed from Postmenopausal status)] Resolved: 0 04-13-2020 Episodic Residual codes; unclassified (20 sources) Amnesia; 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: [Memory loss] 02-27-2021 Episodic Comment on above: daughter present bev l work on BS Residual codes; unclassified (20 sources) Non-smoker; 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: [Nonsmoker] 02-27-2021 Episodic Residual codes; unclassified (1 source) H/O: blood transfusion; 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: [Personal history of other medical treatment] 07-28-2024 Episodic Thyroid disorders (20 sources) Hypothyroidism; 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: [Thyroid nodule] Onset: 4 04-13-2020 Chronic Unclassified (6 sources) Body mass index (BMI) 40.0-44.9, adult; 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: [Body mass index (BMI) 45.0-49.9, adult] Onset: 4 02-07-2014 Chronic Unclassified (6 sources) Long-term drug therapy; 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: [Other longterm (current) drug therapy] Onset: 2 03-18-2016 Unclassified (20 sources) Unclassified (20 sources) Drug therapy finding; 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: [Anticoagulated] 04-13-2020 Comment on above: on coumadin Unclassified (20 sources) Lower Leg Pain (719.46) Unclassified (20 sources) vit d def Resolved: 9 12-26-2019 Unclassified (20 sources) Elevated LFT (790.6) Unclassified (20 sources) Hypertension,benign(40 1.1) Unclassified (20 sources) unilateral leg swelling Resolved: 9 12-26-2019 Unclassified (20 sources) Non-smoker; 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: [Nonsmoker] 04-13-2020 Unclassified (20 sources) VITAMIN D DEFICIENCY, NOS (268.9) Unclassified (20 sources) screening Resolved: 0 12-26-2019 Unclassified (20 sources) Screening for colon cancer Unclassified (20 sources) BMI 40.0-44.9, adult Unclassified (20 sources) Alopecia, unspecified (704.00) Unclassified (20 sources) Hypertension, benign Unclassified (20 sources) Psoriasis of scalp Unclassified (20 sources) COVID-19 virus detected Unclassified (18 sources) Type II Diabetes,uncontrolled (250.02) Unclassified (18 sources) BRONCHITIS, NOT SPECIFIED ACUTE OR CHRONIC (490.) Unclassified (20 sources) Knee pain, bilateral Unclassified (1 source) E11.9 - Type 2 diabetes mellitus without complications,Z79.4 - retirement (current) use of insulin Unclassified (1 source) Low back pain, unspecified; 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: [Low back pain, unspecified] Onset: 4 Unclassified (2 sources) Other persistent atrial fibrillation; 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: [Other persistent atrial fibrillation] Onset: 4 Viral infection (20 sources) Other specified viral infection; 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: [COVID-19] 11-08-2020 Episodic Comment on above: presented worsening diarrhea, notivied 11-08 Day #23 Past or Other Problems Problem Classification Problem Date Documented Date Episodic/Chronic Cardiac dysrhythmias (6 sources) Palpitations; 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: [Palpitations] Onset: 02-03-2013 Resolved: 06-26-2015 06-26-2015 Episodic Cardiac dysrhythmias (20 sources) Cardiac dysrhythmias Influenza (20 sources) Influenza Malaise and fatigue (3 sources) Asthenia; 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: [Weakness] Onset: 10-31-2024 01-10-2022 Episodic Other aftercare (1 source) Encounter for follow-up examination after completed treatment for conditions other than malignant neoplasm; 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: [Encounter for follow-up examination after completed treatment for conditions other than malignant neoplasm] Onset: 10-31-2024 Episodic Other lower respiratory disease (9 sources) Dyspnea; 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: [Shortness of breath] Onset: 02-03-2013 Resolved: 06-26-2015 10-02-2017 Episodic Other screening for suspected conditions (not mental disorders or infectious disease) (20 sources) Liver function tests abnormal; 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: [Image test inconclusive due to excess body fat] Onset: 08-23-2024 04-13-2020 Episodic Spondylosis; intervertebral disc disorders; other back problems (4 sources) Backache; 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: [Dorsalgia, unspecified] Onset: 08-23-2024 08-31-2024 Episodic Unclassified (20 sources) Family history of stroke; 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: [Family history of sudden ] Onset: 05-09-2015 Resolved: 06-26-2015 06-26-2015 Episodic Unclassified (20 sources) NONSPECIFIC ABNORMAL FINDINGS ON RADIOLOGICAL AND OTHER EXAMINATION OF BODY SITES; OTHER; IMAGE TEST INCONCLUSIVE DUE TO EXCESS BODY FAT (793.91) Unclassified (20 sources) Patient encounter status; 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: [Annual Medicare Physical (Renamed from Medicare annual wellness visit, subsequent)] 04-13-2020 Unclassified (20 sources) callusing/corns on feet Resolved: 06-04-2009 12-26-2019 Unclassified (20 sources) Hysterectomy; Abdominal; 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: [Hysterectomy; Abdominal] 04-13-2020 Comment on above: bleeding-- complete 1989 Unclassified (20 sources) postmenopasual without estrogen 04-13-2020 Unclassified (20 sources) TMJ 04-13-2020 Unclassified (20 sources) Postmenopausal (Renamed from Postmenopausal status) Unclassified (20 sources) Encounter for screening mammogram for breast cancer (Renamed from Encounter for screening mammogram for malignant neoplasm of breast) Unclassified (20 sources) Allergy to excedrine (Renamed from Aspirin (Salicylates)) 04-13-2020 Unclassified (20 sources) BMI 39.0-39.9,adult Unclassified (20 sources) BMI 38.0-38.9,adult Unclassified (20 sources) BMI 37.0-37.9, adult Unclassified (3 sources) Anticoagulant effect; 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: [Anticoagulated] 04-13-2020 Comment on above: on coumadin Unclassified (20 sources) Unspecified Diagnosis 09-13-2021 Unclassified (20 sources) Arthrosis of knee Results Test Name Value Interpretation Reference Range Facility CBC W/Diff, Automatedon 05-16 Absolute Lymph 1.13 X10 3/uL Normal 0.83-4.51 [facility] Comment on above: Performed By: #### L 500.4050, L501.9985, L501.9520, L500.4100, L506.1000, L100.0100 #### [facility] [address] [place], [address] Absolute Neut 5.2 X10 3/uL Normal 2.0-7.7 [facility] Comment on above: Performed By: #### L 500.4050, L501.9985, L501.9520, L500.4100, L506.1000, L100.0100 #### [facility] [address] [place], [address] Basophils/100 WBC (Bld) 0.5 % Normal 0-1 [facility] Comment on above: Performed By: #### L 500.4050, [id number], L501.9520, L500.4100, L506.1000, L100.0100 #### [facility] [address] [place], [address] Eosinophils/100 WBC (Bld) 2.6 % Normal 0-5 [facility] Comment on above: Performed By: #### L 500.4050, [id number], L501.9520, L500.4100, L506.1000, L100.0100 #### [facility] [address] [place], [address] Erythrocyte distribution width (RBC) [Ratio] 14.3 % Normal 11.6-14.6 [facility] Comment on above: Performed By: #### L 500.4050, L501.9985, L501.9520, L500.4100, L506.1000, L100.0100 #### [facility] [address] [place], [address] Hematocrit (Bld) [Volume fraction] 36.2 % Low 37-47 [facility] Comment on above: Performed By: #### L 500.4050, [id number], L501.9520, L500.4100, L506.1000, L100.0100 #### [facility] [address] [place], [address] Hemoglobin (Bld) [Mass/Vol] 11.8 g/dL Low 12.0-15.0 [facility] Comment on above: Performed By: #### L 500.4050, [id number], L501.9520, L500.4100, L506.1000, L100.0100 #### [facility] [address] [place], [address] IG% 0.500 Normal 0.0-0.9 [facility] Comment on above: Result Comment: IG% - Immature Granulocytes (promyelocytes, myelocytes and metamyelocytes) > 1% indicates that a LEFT SHIFT is Present. Performed By: #### L 500.4050, L501.9985, L501.9520, L500.4100, L506.1000, L100.0100 #### [facility] [address] [place], [address] Lymphocytes/100 WBC (Bld) 15.2 % Low 19-41 [facility] Comment on above: Performed By: #### L 500.4050, [id number], L501.9520, L500.4100, L506.1000, L100.0100 #### [facility] [address] [place], [address] MCH (RBC) [Entitic mass] 29.6 pg Normal 27.0-32.0 [facility] Comment on above: Performed By: #### L 500.4050, L501.9985, L501.9520, L500.4100, L506.1000, L100.0100 #### [facility] [address] [place], [address] MCHC (RBC) [Mass/Vol] 32.6 g/dL Normal 32-36 [facility] Comment on above: Performed By: #### L 500.4050, [id number], L501.9520, L500.4100, L506.1000, L100.0100 #### [facility] [address] [place], [address] MCV (RBC) [Entitic vol] 90.7 fL Normal 81-99 [facility] Comment on above: Performed By: #### L 500.4050, [id number], L501.9520, L500.4100, L506.1000, L100.0100 #### [facility] [address] [place], [address] Monocytes/100 WBC (Bld) 11.2 % High 0-10 [facility] Comment on above: Performed By: #### L 500.4050, [id number], L501.9520, L500.4100, L506.1000, L100.0100 #### [facility] [address] [place], [address] Neutrophils/100 WBC (Bld) 70.0 % Normal 47-70 [facility] Comment on above: Performed By: #### L 500.4050, L501.9985, L501.9520, L500.4100, L506.1000, L100.0100 #### [facility] [address] [place], [address] Nucleated RBC (Bld) [#/Vol] 0 10*3/uL Normal 0-5 [facility] Comment on above: Performed By: #### L 500.4050, L501.9985, L501.9520, L500.4100, L506.1000, L100.0100 #### [facility] [address] [place], [address] Platelet mean volume (Bld) [Entitic vol] 11.2 fL Normal 6.2-12.0 [facility] Comment on above: Performed By: #### L 500.4050, L501.9985, L501.9520, L500.4100, L506.1000, L100.0100 #### [facility] [address] [place], [address] Platelets (Bld) [#/Vol] 185 10*3/uL Normal 150-450 [facility] Comment on above: Performed By: #### L 500.4050, L501.9985, L501.9520, L500.4100, L506.1000, L100.0100 #### [facility] [address] [place], [address] RBC (Bld) [#/Vol] 3.99 10*6/uL Low 4.2-5.4 [facility] Comment on above: Performed By: #### L 500.4050, L501.9985, L501.9520, L500.4100, L506.1000, L100.0100 #### [facility] [address] [place], [address] RDW SD 47.6 fl High 35.1-43.9 [facility] Comment on above: Performed By: #### L 500.4050, L501.9985, L501.9520, L500.4100, L506.1000, L100.0100 #### [facility] [address] [place], [address] WBC (Bld) [#/Vol] 7.4 10*3/uL Normal 4.4-11.0 [facility] Comment on above: Performed By: #### L 500.4050, L501.9985, L501.9520, L500.4100, L506.1000, L100.0100 #### [facility] [address] [place], [address] Comprehensive Metabolic Prof [facility] 05-29-2025 Albumin [Mass/Vol] 4.0 g/dL Normal 3.4-4.8 [facility] Comment on above: Performed By: #### L 500.4050, L501.9985, L501.9520, L500.4100, L506.1000, L100.0100 #### [facility] [address] [place], [address] Albumin/Globulin [Mass ratio] 1.3 {ratio} Normal 0.9-2.4 [facility] Comment on above: Performed By: #### L 500.4050, L501.9985, L501.9520, L500.4100, L506.1000, L100.0100 #### [facility] [address] [place], [address] ALK PHOS 78 U/L Normal 35-104 [facility] Comment on above: Performed By: #### L 500.4050, L501.9985, L501.9520, L500.4100, L506.1000, L100.0100 #### [facility] [address] [place], [address] ALT [Catalytic activity/Vol] 14 U/L Normal <=34 [facility] Comment on above: Performed By: #### L 500.4050, L501.9985, L501.9520, L500.4100, L506.1000, L100.0100 #### [facility] [address] [place], [address] AST [Catalytic activity/Vol] 23 U/L Normal <=31 [facility] Comment on above: Performed By: #### L 500.4050, L501.9985, L501.9520, L500.4100, L506.1000, L100.0100 #### [facility] [address] [place], [address] Bilirubin [Mass/Vol] 1.62 mg/dL High 0.00-1.30 [facility] Comment on above: Performed By: #### L 500.4050, L501.9985, L501.9520, L500.4100, L506.1000, L100.0100 #### [facility] [address] [place], [address] BUN/CRE 19.2 RATIO Normal 10-20 [facility] Comment on above: Performed By: #### L 500.4050, L501.9985, L501.9520, L500.4100, L506.1000, L100.0100 #### [facility] [address] [place], [address] Calcium [Mass/Vol] 9.5 mg/dL Normal 7.6-11.0 [facility] Comment on above: Performed By: #### L 500.4050, L501.9985, L501.9520, L500.4100, L506.1000, L100.0100 #### [facility] [address] [place], [address] Chloride [Moles/Vol] 104 mmol/L Normal 98-108 [facility] Comment on above: Performed By: #### L 500.4050, L501.9985, L501.9520, L500.4100, L506.1000, L100.0100 #### [facility] [address] [place], [address] CO2 [Moles/Vol] 22.8 mmol/L Normal 21.0-32.0 [facility] Comment on above: Performed By: #### L 500.4050, L501.9985, L501.9520, L500.4100, L506.1000, L100.0100 #### [facility] [address] [place], [address] Creatinine [Mass/Vol] 0.76 mg/dL Normal 0.70-1.20 [facility] Comment on above: Performed By: #### L 500.4050, L501.9985, L501.9520, L500.4100, L506.1000, L100.0100 #### [facility] [address] [place], [address] GAP 13 Normal 5-15 [facility] Comment on above: Performed By: #### L 500.4050, L501.9985, L501.9520, L500.4100, L506.1000, L100.0100 #### [facility] [address] [place], [address] GFR/1.73 sq M.predicted among non-blacks MDRD (S/P/Bld) [Vol rate/Area] 78 mL/min/{1.73_m2} Normal >60 [facility] Comment on above: Result Comment: mL/m in/1.73m2 CKD-EPI Creatinine Equation (2020) Performed By: #### L 500.4050, L501.9985, L501.9520, L500.4100, L506.1000, L100.0100 #### [facility] [address] [place], [address] Globulin (S) [Mass/Vol] 3.0 g/dL Normal 2.2-4.2 [facility] Comment on above: Performed By: #### L 500.4050, L501.9985, L501.9520, L500.4100, L506.1000, L100.0100 #### [facility] [address] [place], [address] Glucose [Mass/Vol] 246 mg/dL High 70-99 [facility] Comment on above: Performed By: #### L 500.4050, L501.9985, L501.9520, L500.4100, L506.1000, L100.0100 #### [facility] [address] [place], [address] Potassium [Moles/Vol] 4.1 mmol/L Normal 3.3-5.1 [facility] Comment on above: Performed By: #### L 500.4050, L501.9985, L501.9520, L500.4100, L506.1000, L100.0100 #### [facility] [address] [place], [address] Sodium [Moles/Vol] 140 mmol/L Normal 133-145 [facility] Comment on above: Performed By: #### L 500.4050, L501.9985, L501.9520, L500.4100, L506.1000, L100.0100 #### [facility] [address] [place], [address] T PROT 7.0 g/dL Normal 5.9-8.4 [facility] Comment on above: Performed By: #### L 500.4050, L501.9985, L501.9520, L500.4100, L506.1000, L100.0100 #### [facility] [address] [place], [address] Urea nitrogen [Mass/Vol] 15 mg/dL Normal 4-19 [facility] Comment on above: Performed By: #### L 500.4050, L501.9985, L501.9520, L500.4100, L506.1000, L100.0100 #### [facility] [address] [place], [address] Internal Medicine Office Vis itokaylen 05-29-2025 Internal Medicine Office Visit [facility] [address] [place], [place] [address] OFFICE VISIT Date of Service: 05/29/25 MR#: [id number] Acct: [id number] Name: VASILE MILLER Rep #: [id number] : 1940 Provider: Dr. Terrell castro MD Age/Sex: 84/F Location: [facility] Status: Signed Intake Vital Signs 02/08/25 16:07 03/13/25 10:12 05/29/25 14:06 Height 5 ft 5 in 5 ft 5 in BP 130/80 H Blood Pressure Location Lt brachial Position Sitting Respiration 16 Pulse 80 Pulse Source Monitor Temp 97.5 F L Temp Source Temporal Pulse Oximetry (%) 90 Intake Visit Reasons: 3 M FU Chief Complaint: 3 Month F/U [employer] Required: No Is patient in pain?: No Allergies acetaminophen (From Excedrin Migraine) Allergy (Intermediate, Verified 05/29/25 14:07) headache aspirin Allergy (Intermediate, Verified 05/29/25 14:07) headache caffeine (From Excedrin Migraine) Allergy (Intermediate, Verified 05/29/25 14:07) headache mold (mold spores) Allergy (Intermediate, Verified 05/29/25 14:07) respiratory distress lisinopril Adverse Reaction (Severe, Verified 05/29/25 14:07) Cough monosodium glutamate (msg) Adverse Reaction (Intermediate, Verified 05/29/25 14:07) PT UNSURE OF REACTION wheat Adverse Reaction (Intermediate, Verified 05/29/25 14:07) PT UNSURE OF REACTION liraglutide (From Victoza) Adverse Reaction (Verified 05/29/25 14:07) Other Medications ???Medication ???Instructions ???Recorded ???Confirmed ???Type pen needle, diabetic 32 gauge x #400 ea 10/09/20 05/29/25 Rx /32 (BD Ultra-Fine Kimber Pen Needle) hydrochlorothiazide 25 mg tablet 25 mg PO DAILY BLOOD PRESSURE #90 05/07/21 05/29/25 Rx tabs cetirizine 5 mg tablet 5 mg PO DAILY ALLERGIES 06/01/24 0 05/29/25 History amoxicillin 500 mg capsule 2,000 mg PO ONCE PRN DENTAL 05/29/25 History 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,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,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 07/28/24 05/29/25 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) glucagon HCl 1 mg solution for 1 mg subcut Q20M PRN HYPOGLYCEMIA 07/28/24 05/29/25 History injection (Glucagon (HCl) Emergency Kit) nystatin 100,000 unit/gram topical 1 applic topical BID PRN FUNGAL 07/28/24 05/29/25 History powder INFECTION trolamine salicylate 10 % topical 1 applic topical DAILY PRN 05/29/25 History cream (Myoflex) ARTHRITIS alendronate 70 mg tablet 70 mg PO QWEEK OSTEOPEROSIS 05/29/25 History clotrimazole-betamethason e 1 1 applic topical BID PRN FUNGAL 05/29/25 History %-0.05 % topical cream INFECTION ketoconazole 2 % shampoo 1 applic topical UD PRN FUNGAL 06/0805/29/25 History INFECTION ketoconazole 2 % topical cream 1 applic topical DAILY PRN FUNGAL 08/22/24 05/29/25 History INFECTION magnesium chloride 71.5 mg 143 mg PO DAILY SUPPLEMENT 4 05/29/25 History (magnesium chloride) tablet,delayed release ergocalciferol (vitamin D2) 1,250 50,000 unit PO QWEEK #20 caps 05/29/25 Rx mcg (50,000 unit) capsule metoprolol tartrate 100 mg tablet 100 mg PO BID BLOOD PRESSURE #18 0 11/21/24 05/29/25 Rx tabs warfarin 4 mg tablet 4 mg PO .COMPLEX #180 tabs 5 05/29/25 Rx acetaminophen 500 mg tablet 1,000 mg PO BID PRN 02/13/2505/29 History ascorbic acid (vitamin C) 1,000 mg 1 g PO QDAY 02/13/25 05/29/25 Hi story capsule atorvastatin 40 mg tablet 40 mg PO DAILY CHOLESTEROL #90 05/29/25 Rx tabs furosemide 20 mg tablet 20 mg PO DAILY EDEMA #90 tabs 05/29/25 Rx losartan 100 mg tablet 100 mg PO DAILY BLOOD PRESSURE 05/29/25 Rx #90 tabs warfarin 5 mg tablet 5 mg PO QDAY 02/13/25 05/29/25 His tory blood sugar diagnostic (FreeStyle #100 ea 02/23/25 05/29/25 Rx Lite Strips) 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 meter (FreeStyle #1 ea 02/23/25 05/29/25 Rx Lite Meter kit) lancets 28 gauge (FreeStyle #200 ea 02/23/25 05/29/25 Rx Lancets) gabapentin 100 mg capsule 100 mg PO TID 03/13/25 05/29/25 Hi story insulin aspart 20 unit subcut TID #18 mL 03/13/25 05/29/25 Rx (niacinamide)(U-100) 100 unit/mL(3 mL) subcutaneous pen (Fiasp FlexTouch U-100 Insulin) insulin degludec 100 unit/mL (3 16 unit subcut BID 03/13/25 History mL) subcutaneous pen (Tresiba FlexTouch U-100 insulin) oxycodone 5 mg capsule 5 mg PO BID PRN 03/13/25 05/29/25 History tizanidine 2 mg capsule 2 mg PO Q8H PRN 03/13/25 05/29/25 History warfarin 1 mg tablet 1 mg PO 3XW 03/13/25 05/29/25 Hist ory levothyroxine 25 mcg tablet 25 mcg PO QDAY #90 tabs 05/17/25 0 05/29/25 Rx Have you fallen in the past year?: No Nurse's Note: F/U. Has concerns for tiredness, poor hydration, feels weaker. Then, has a spot on leg that needs looked at. [facility] Medical History (Updated 05/29/25 @ 16:[address] Terrell Godoy (more content not included)... Normal [facility] Prothrombin Time w/INRon INR Coag (PPP) [Relative time] 1.8 {INR} Normal [facility] Comment on above: Performed By: #### L 500.4050, L501.9985, L501.9520, L500.4100, L506.1000, L100.0100 #### [facility] [address] [place], [address] PT Coag (PPP) [Time] 21.6 s High 11.7-14.9 [facility] Comment on above: Performed By: #### L 500.4050, L501.9985, L501.9520, L500.4100, L506.1000, L100.0100 #### [facility] [address] [place], [address] INR Normal [facility] Comment on above: Order Comment: Comme nts: STANDING ORDER Result Comment: SEVERIANO G Performed By: #### L 300.3900 #### [facility] [address] [place], [address] PROTIME Normal 11.7-14.9 [facility] Comment on above: Order Comment: Comme nts: STANDING ORDER Result Comment: SEVERIANO G Performed By: #### L 300.3900 #### [facility] [address] [place], [address] Thyroid Stim Hormone (TSH)on 05-29-2025 TSH 2.950 uIU/mL Normal 0.300-4.20 0 [facility] Comment on above: Performed By: #### L 500.4050, L501.9985, L501.9520, L500.4100, L506.1000, L100.0100 #### [facility] [address] [place], [address] No Panel InformationOrdered By: Rohini Díaz on 05-08-2025 INR International Normalized Ratio 2.1 [facility] No Panel Informationon 04-24 INR International Normalized Ratio 1.6 [facility] No Panel InformationOrdered By: Joel Judge on 04-17-2025 INR International Normalized Ratio 1.3 Low [facility] Endocrinology Visit Reporton 03-13-2025 Endocrinology Visit Report [facility] [address] [place] [address]. [address] [place] [address] OFFICE VISIT Date of Service: 03/13/25 MR#: [id number] Acct: [id number] Name: VASILE MILLER Rep #: [id number] : 1940 Provider: SEAN barron Age/Sex: 84/F Location: [facility] Status: Signed Intake Vital Signs 02/13/25 10:49 03/13/25 10:12 Height 5 ft 5 in 5 ft 5 in Weight: 223 lb 225 lb 6 oz BMI 37.0 37.5 BP 157/74 H 165/84 H Blood Pressure Location Rt brachial Rt radial Position Sitting Sitting Respiration 18 Pulse 92 83 Pulse Source NIBP Monitor Pulse Oximetry (%) 95 Oxygen Delivery Method room air Intake Visit Reasons: Diabetes Chief Complaint: establish care- diabetes Is patient in pain?: No Allergies acetaminophen (From Excedrin Migraine) Allergy (Intermediate, Verified 03/13/25 10:25) headache aspirin Allergy (Intermediate, Verified 03/13/25 10:25) headache caffeine (From Excedrin Migraine) Allergy (Intermediate, Verified 03/13/25 10:25) headache mold (mold spores) Allergy (Intermediate, Verified 03/13/25 10:25) respiratory distress lisinopril Adverse Reaction (Severe, Verified 03/13/25 10:25) Cough monosodium glutamate (msg) Adverse Reaction (Intermediate, Verified 03/13/25 10:25) PT UNSURE OF REACTION wheat Adverse Reaction (Intermediate, Verified 03/13/25 10:25) PT UNSURE OF REACTION liraglutide (From Victoza) Adverse Reaction (Verified 03/13/25 10:25) Other Medications ???Medication ???Instructions ???Recorded ???Confirmed ???Type pen needle, diabetic 32 gauge x #400 ea 10/09/20 02/08/25 Rx (BD Ultra-Fine Kimber Pen Needle) hydrochlorothiazide 25 mg tablet 25 mg PO DAILY BLOOD PRESSURE #90 05/07/21 03/13/25 Rx tabs cetirizine 5 mg tablet 5 mg PO DAILY ALLERGIES 06/01/24 0 03/13/25 History amoxicillin 500 mg capsule 2,000 mg PO ONCE PRN DENTAL 03/13/25 History 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 meter,continuous 07/28/24 02/08/25 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) glucagon HCl 1 mg solution for 1 mg subcut Q20M PRN HYPOGLYCEMIA 07/28/24 03/13/25 History injection (Glucagon (HCl) Emergency Kit) nystatin 100,000 unit/gram topical 1 applic topical BID PRN FUNGAL 07/28/24 03/13/25 History powder INFECTION trolamine salicylate 10 % topical 1 applic topical DAILY PRN 03/13/25 History cream (Myoflex) ARTHRITIS alendronate 70 mg tablet 70 mg PO QWEEK OSTEOPEROSIS 03/13/25 History clotrimazole-betamethason e 1 1 applic topical BID PRN FUNGAL 03/13/25 History %-0.05 % topical cream INFECTION ketoconazole 2 % shampoo 1 applic topical UD PRN FUNGAL 06/0803/13/25 History INFECTION ketoconazole 2 % topical cream 1 applic topical DAILY PRN FUNGAL 08/22/24 03/13/25 History INFECTION magnesium chloride 71.5 mg 143 mg PO DAILY SUPPLEMENT 4 03/13/25 History (magnesium chloride) tablet,delayed release ergocalciferol (vitamin D2) 1,250 50,000 unit PO QWEEK #20 caps 03/13/25 Rx mcg (50,000 unit) capsule levothyroxine 25 mcg tablet 25 mcg PO QDAY #90 tabs 11/07/24 0 03/13/25 Rx metoprolol tartrate 100 mg tablet 100 mg PO BID BLOOD PRESSURE #18 0 11/21/24 03/13/25 Rx tabs warfarin 4 mg tablet 4 mg PO .COMPLEX #180 tabs 5 03/13/25 Rx acetaminophen 500 mg tablet 1,000 mg PO BID PRN 02/13/2503/13 History ascorbic acid (vitamin C) 1,000 mg 1 g PO QDAY 02/13/25 03/13/25 Hi story capsule atorvastatin 40 mg tablet 40 mg PO DAILY CHOLESTEROL #90 03/13/25 Rx tabs furosemide 20 mg tablet 20 mg PO DAILY EDEMA #90 tabs 03/13/25 Rx losartan 100 mg tablet 100 mg PO DAILY BLOOD PRESSURE 03/13/25 Rx #90 tabs warfarin 5 mg tablet 5 mg PO QDAY 02/13/25 03/13/25 His tory blood sugar diagnostic (FreeStyle #100 ea 02/23/25 Rx Lite Strips) 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 meter (FreeStyle #1 ea 02/23/25 Rx Lite Meter kit) insulin aspart U-100 100 unit/mL 5 unit (0.05 mL) subcut TID 1 02/1403/13/25 Rx (3 mL) subcutaneous pen (Novolog month #4.5 mL FlexPen U-100 Insulin aspart) lancets 28 gauge (FreeStyle #200 ea 02/23/25 Rx Lancets) gabapentin 100 mg capsule 100 mg PO TID 03/13/25 03/13/25 Hi story insulin degludec 100 unit/mL (3 16 unit subcut BID 03/13/25 Histo ry mL) subcutaneous pen (Tresiba FlexTouch U-100 insulin) oxycodone 5 mg capsule 5 mg PO BID PRN 03/13/25 03/13/25 History tizanidine 2 mg capsule 2 mg PO Q8H PRN 03/13/25 03/13/25 History warfarin 1 mg tablet 1 mg PO 3XW 03/13/25 03/13/25 Hist ory Have you fallen in the past year?: Yes PFSH Medical History Hepatitis Dementia TIA (transient ischemic a (more content not included)... Normal [facility] - Hematology and Cell countsOrdered By: Nati Renee on 03-13-2025 HbA1c (Bld) [Mass fraction] 10.5 % High 4.2-6.3 [facility] Absolute lymphocyte countOrd ered By: saraglasgowsadia Schafer on 02-20-2025 Lymphocytes Auto (Unsp spec) [#/Vol] 1.12 10*3/uL 0.83-4.51 [facility] Absolute neutrophil countOrd ered By: saraglasgowsadia Schafer on 02-20-2025 Neutrophils (Bld) [#/Vol] 5.7 10*3/uL 2.0-7.7 [facility] Anion gap in Serum or Plasma Ordered By: saraglasgowsadia Schafer on 02-20-2025 Anion gap [Moles/Vol] 13 mmol/L 5-15 [facility] Automated lymphocyte count a s percentage of total leukocytesOrdered By: Terrell Schafer on 02-20-2025 Lymphocytes/100 WBC Auto (Unsp spec) 14.2 % Low 19-41 [facility] BUN/creatinine ratioOrdered By: [facility] Ibanezrickey on 02-20-2025 Urea nitrogen/Creatinine [Mass ratio] 24.7 mg/mg High 10-20 [facility] Basophil percentageOrdered B y: Terrell Schafer on 02-20-2025 Basophils/100 WBC (Bld) 0.6 % 0-1 [facility] Bilirubin, totalOrdered By: Terrell Schafer on 02-20-2025 Bilirubin [Mass/Vol] 1.06 mg/dL 0.00-1.30 [facility] CBC W/Diff, Automatedon Absolute Lymph 1.12 X10 3/uL Normal 0.83-4.51 [facility] Comment on above: Performed By: #### L 500.4050, L501.9985, L501.9520, L500.4100, L506.1000, L100.0100 #### [facility] [address] [place], [address] Absolute Neut 5.7 X10 3/uL Normal 2.0-7.7 [facility] Comment on above: Performed By: #### L 500.4050, L501.9985, L501.9520, L500.4100, L506.1000, L100.0100 #### [facility] [address] [place], [address] Basophils/100 WBC (Bld) 0.6 % Normal 0-1 [facility] Comment on above: Performed By: #### L 500.4050, L501.9985, L501.9520, L500.4100, L506.1000, L100.0100 #### [facility] [address] [place], [address] Eosinophils/100 WBC (Bld) 1.9 % Normal 0-5 [facility] Comment on above: Performed By: #### L 500.4050, L501.9985, L501.9520, L500.4100, L506.1000, L100.0100 #### [facility] [address] [place], [address] Erythrocyte distribution width (RBC) [Ratio] 13.2 % Normal 11.6-14.6 [facility] Comment on above: Performed By: #### L 500.4050, L501.9985, L501.9520, L500.4100, L506.1000, L100.0100 #### [facility] [address] [place], [address] Hematocrit (Bld) [Volume fraction] 36.7 % Low 37-47 [facility] Comment on above: Performed By: #### L 500.4050, L501.9985, L501.9520, L500.4100, L506.1000, L100.0100 #### [facility] [address] [place], [address] Hemoglobin (Bld) [Mass/Vol] 12.6 g/dL Normal 12.0-15.0 [facility] Comment on above: Performed By: #### L 500.4050, L501.9985, L501.9520, L500.4100, L506.1000, L100.0100 #### [facility] [address] [place], [address] IG% 0.500 Normal 0.0-0.9 [facility] Comment on above: Result Comment: IG% - Immature Granulocytes (promyelocytes, myelocytes and metamyelocytes) > 1% indicates that a LEFT SHIFT is Present. Performed By: #### L 500.4050, L501.9985, L501.9520, L500.4100, L506.1000, L100.0100 #### [facility] [address] [place], [address] Lymphocytes/100 WBC (Bld) 14.2 % Low 19-41 [facility] Comment on above: Performed By: #### L 500.4050, L501.9985, L501.9520, L500.4100, L506.1000, L100.0100 #### [facility] [address] [place], [address] MCH (RBC) [Entitic mass] 30.4 pg Normal 27.0-32.0 [facility] Comment on above: Performed By: #### L 500.4050, L501.9985, L501.9520, L500.4100, L506.1000, L100.0100 #### [facility] [address] [place], [address] MCHC (RBC) [Mass/Vol] 34.3 g/dL Normal 32-36 [facility] Comment on above: Performed By: #### L 500.4050, L501.9985, L501.9520, L500.4100, L506.1000, L100.0100 #### [facility] [address] [place], [address] MCV (RBC) [Entitic vol] 88.6 fL Normal 81-99 [facility] Comment on above: Performed By: #### L 500.4050, L501.9985, L501.9520, L500.4100, L506.1000, L100.0100 #### [facility] [address] [place], [address] Monocytes/100 WBC (Bld) 10.4 % High 0-10 [facility] Comment on above: Performed By: #### L 500.4050, L501.9985, L501.9520, L500.4100, L506.1000, L100.0100 #### [facility] [address] [place], [address] Neutrophils/100 WBC (Bld) 72.4 % High 47-70 [facility] Comment on above: Performed By: #### L 500.4050, L501.9985, L501.9520, L500.4100, L506.1000, L100.0100 #### [facility] [address] [place], [address] Nucleated RBC (Bld) [#/Vol] 0 10*3/uL Normal 0-5 [facility] Comment on above: Performed By: #### L 500.4050, L501.9985, L501.9520, L500.4100, L506.1000, L100.0100 #### [facility] [address] [place], [address] Platelet mean volume (Bld) [Entitic vol] 11.3 fL Normal 6.2-12.0 [facility] Comment on above: Performed By: #### L 500.4050, L501.9985, L501.9520, L500.4100, L506.1000, L100.0100 #### [facility] [address] [place], [address] Platelets (Bld) [#/Vol] 135 10*3/uL Low 150-450 [facility] Comment on above: Performed By: #### L 500.4050, L501.9985, L501.9520, L500.4100, L506.1000, L100.0100 #### [facility] [address] [place], [address] RBC (Bld) [#/Vol] 4.14 10*6/uL Low 4.2-5.4 [facility] Comment on above: Performed By: #### L 500.4050, L501.9985, L501.9520, L500.4100, L506.1000, L100.0100 #### [facility] [address] [place], [address] RDW SD 42.7 fl Normal 35.1-43.9 [facility] Comment on above: Performed By: #### L 500.4050, L501.9985, L501.9520, L500.4100, L506.1000, L100.0100 #### [facility] [address] [place], [address] WBC (Bld) [#/Vol] 7.9 10*3/uL Normal 4.4-11.0 [facility] Comment on above: Performed By: #### L 500.4050, L501.9985, L501.9520, L500.4100, L506.1000, L100.0100 #### [facility] [address] [place], [address] Calculated very low density lipoprotein (VLDL) cholesterol measurementOrdered By: Terrell Schafer on 02-20-2025 Calculated very low density lipoprotein (VLDL) cholesterol measurement 50 mg/dL High 5-40 [facility] Carbon dioxide, total [Moles /volume] in Central venous bloodOrdered By: Terrell Schafer on 02-20-2025 CO2 [Moles/Vol] 22.2 mmol/L 21.0-32.0 [facility] Chloride assayOrdered By: Ruben phillip Shamarmilka on 02-20-2025 Chloride [Moles/Vol] 103 mmol/L 98-108 [facility] Comprehensive Metabolic Prof ilon 02-20-2025 Albumin [Mass/Vol] 4.0 g/dL Normal 3.4-4.8 [facility] Comment on above: Performed By: #### L 500.4050, L501.9985, L501.9520, L500.4100, L506.1000, L100.0100 #### [facility] [address] [place], [address] Albumin/Globulin [Mass ratio] 1.5 {ratio} Normal 0.9-2.4 [facility] Comment on above: Performed By: #### L 500.4050, L501.9985, L501.9520, L500.4100, L506.1000, L100.0100 #### [facility] [address] [place], [address] ALK PHOS 90 U/L Normal 35-104 [facility] Comment on above: Performed By: #### L 500.4050, L501.9985, L501.9520, L500.4100, L506.1000, L100.0100 #### [facility] [address] [place], [address] ALT [Catalytic activity/Vol] 23 U/L Normal <=34 [facility] Comment on above: Result Comment: Hemo lysis present, Results??could be affected. ?? Performed By: #### L 500.4050, L501.9985, L501.9520, L500.4100, L506.1000, L100.0100 #### [facility] [address] [place], [address] AST [Catalytic activity/Vol] 33 U/L High <=31 [facility] Comment on above: Result Comment: Hemo lysis present, Results??could be affected. ?? Performed By: #### L 500.4050, L501.9985, L501.9520, L500.4100, L506.1000, L100.0100 #### [facility] [address] [place], [address] Bilirubin [Mass/Vol] 1.06 mg/dL Normal 0.00-1.30 [facility] Comment on above: Performed By: #### L 500.4050, L501.9985, L501.9520, L500.4100, L506.1000, L100.0100 #### [facility] [address] [place], [address] BUN/CRE 24.7 RATIO High 10-20 [facility] Comment on above: Performed By: #### L 500.4050, L501.9985, L501.9520, L500.4100, L506.1000, L100.0100 #### [facility] [address] [place], [address] Calcium [Mass/Vol] 9.5 mg/dL Normal 7.6-11.0 [facility] Comment on above: Performed By: #### L 500.4050, L501.9985, L501.9520, L500.4100, L506.1000, L100.0100 #### [facility] [address] [place], [address] Chloride [Moles/Vol] 103 mmol/L Normal 98-108 [facility] Comment on above: Performed By: #### L 500.4050, L501.9985, L501.9520, L500.4100, L506.1000, L100.0100 #### [facility] [address] [place], [address] CO2 [Moles/Vol] 22.2 mmol/L Normal 21.0-32.0 [facility] Comment on above: Performed By: #### L 500.4050, L501.9985, L501.9520, L500.4100, L506.1000, L100.0100 #### [facility] [address] [place], [address] Creatinine [Mass/Vol] 1.14 mg/dL Normal 0.70-1.20 [facility] Comment on above: Performed By: #### L 500.4050, L501.9985, L501.9520, L500.4100, L506.1000, L100.0100 #### [facility] [address] [place], [address] GAP 13 Normal 5-15 [facility] Comment on above: Performed By: #### L 500.4050, L501.9985, L501.9520, L500.4100, L506.1000, L100.0100 #### [facility] [address] [place], [address] GFR/1.73 sq M.predicted among non-blacks MDRD (S/P/Bld) [Vol rate/Area] 48 mL/min/{1.73_m2} Low >60 [facility] Comment on above: Result Comment: mL/m in/1.73m2 CKD-EPI Creatinine Equation (2020) Performed By: #### L 500.4050, L501.9985, L501.9520, L500.4100, L506.1000, L100.0100 #### [facility] [address] [place], [address] Globulin (S) [Mass/Vol] 2.6 g/dL Normal 2.2-4.2 [facility] Comment on above: Performed By: #### L 500.4050, L501.9985, L501.9520, L500.4100, L506.1000, L100.0100 #### [facility] [address] [place], [address] Glucose [Mass/Vol] 341 mg/dL High 70-99 [facility] Comment on above: Performed By: #### L 500.4050, L501.9985, L501.9520, L500.4100, L506.1000, L100.0100 #### [facility] [address] [place], [address] Potassium [Moles/Vol] 4.4 mmol/L Normal 3.3-5.1 [facility] Comment on above: Result Comment: Hemo lysis present, Results??could be affected. ?? Performed By: #### L 500.4050, L501.9985, L501.9520, L500.4100, L506.1000, L100.0100 #### [facility] [address] [place], [address] Sodium [Moles/Vol] 139 mmol/L Normal 133-145 [facility] Comment on above: Performed By: #### L 500.4050, L501.9985, L501.9520, L500.4100, L506.1000, L100.0100 #### [facility] [address] [place], [address] T PROT 6.7 g/dL Normal 5.9-8.4 [facility] Comment on above: Performed By: #### L 500.4050, L501.9985, L501.9520, L500.4100, L506.1000, L100.0100 #### [facility] [address] [place], [address] Urea nitrogen [Mass/Vol] 28 mg/dL High 4-19 [facility] Comment on above: Performed By: #### L 500.4050, L501.9985, L501.9520, L500.4100, L506.1000, L100.0100 #### [facility] [place], [address] Eosinophil percentageOrdered By: Terrell Schafer on 02-20-2025 Eosinophils/100 WBC (Bld) 1.9 % 0-5 [facility] Erythrocyte distribution wid th ratioOrdered By: saraglasgowsadia Schafer on 02-20-2025 Erythrocyte distribution width (RBC) [Ratio] 13.2 % 11.6-14.6 [facility] Erythrocyte distribution wid th standard deviationOrdered By: saraglasgowsadia Schafer on 02-20-2025 Erythrocyte distribution width (RBC) [Ratio] 42.7 fl 35.1-43.9 [facility] Glomerular filtration rate ( GFR) estimation/1.73 sq m using serum, plasma, or whole bOrdered By: saraglasgowsadia Schafer on 02-20-2025 GFR/1.73 sq M.predicted among non-blacks MDRD (S/P/Bld) [Vol rate/Area] 48 mL/min/{1.73_m2} Low >60 [facility] Comment on above: mL/min/1.73m2 CKD-EP I Creatinine Equation (2020) Hematocrit Auto (Bld) [Volum e fraction]Ordered By: Terrell Schafer on 02-20-2025 Hematocrit (Bld) [Volume fraction] 36.7 % Low 37-47 [facility] Hemoglobin measurementOrdere d By: Terrell Schafer on 02-20-2025 Hemoglobin (Bld) [Mass/Vol] 12.6 g/dL 12.0-15.0 [facility] Immature granulocytes/100 WB C Auto (Bld)Ordered By: Terrell Schafer on 02-20-2025 Immature granulocytes/100 WBC (Bld) 0.500 % 0.0-0.9 [facility] Comment on above: IG% - Immature Granu locytes (promyelocytes, myelocytes and metamyelocytes) > 1% indicates that a LEFT SHIFT is Present. International normalized rat io (INR) calculationOrdered By: Joel Judge on 02-20-2025 INR Coag (Bld) [Relative time] 2.5 {INR} [facility] LDL calc ser/plasOrdered By: Terrell Schafer on 02-20-2025 Cholesterol in LDL [Mass/Vol] 25 mg/dL [facility] Comment on above: Azhonekgmz=847-215 m g/dL & Higher Fbci=452 mg/dL or greater Laboratory - Chemistry and C hemistry - challengeOrdered By: Terrell Schafer on 02-20-2025 AST [Catalytic activity/Vol] 33 U/L High <32 [facility] Comment on above: Hemolysis present, R esults could be affected. Lipid Profileon 02-20-2025 CHOL:HDL 2.97 Normal [facility] Comment on above: Performed By: #### L 500.4050, L501.9985, L501.9520, L500.4100, L506.1000, L100.0100 #### [facility] [address] [place], [address] Cholesterol [Mass/Vol] 113 mg/dL Normal <=200 [facility] Comment on above: Result Comment: Chol esterol level, Desirable <200 mg/dL Borderline high cholesterol 200-239 mg/dL High cholesterol >=240 mg/dL Recommendations of the NCEP Adult Treatment Panel for the following risk-cutoff thresholds for the [place] population. Performed By: #### L 500.4050, L501.9985, L501.9520, L500.4100, L506.1000, L100.0100 #### [facility] [address] [place], [address] Cholesterol in HDL [Mass/Vol] 38 mg/dL Low [facility] Comment on above: Result Comment: Milly onal Cholesterol Education Program (NCEP) guidelines: <40 mg/dL: Low HDL-cholesterol (major risk factor for CHD) >= 60 mg/dL: High HDL-cholesterol (negative risk factor for CHD) HDL-cholesterol is affected by a number of factors, e.g. smoking, exercise, hormones, sex and age. Performed By: #### L 500.4050, L501.9985, L501.9520, L500.4100, L506.1000, L100.0100 #### [facility] [address] [place], [address] Cholesterol in LDL [Mass/Vol] 25 mg/dL Normal [facility] Comment on above: Result Comment: Bord wjijya=347-055 mg/dL Higher Dyup=046 mg/dL or greater Performed By: #### L 500.4050, L501.9985, L501.9520, L500.4100, L506.1000, L100.0100 #### [facility] [address] [place], [address] Cholesterol in VLDL [Mass/Vol] 50 mg/dL High 5-40 [facility] Comment on above: Performed By: #### L 500.4050, L501.9985, L501.9520, L500.4100, L506.1000, L100.0100 #### [facility] [address] [place], [address] Triglyceride [Mass/Vol] 252 mg/dL High [facility] Comment on above: Result Comment: The drugs N-Acetylcysteine and Metamizole may falsely depress this assay. Normal range: <150 mg/dL Borderline High: 150-199 mg/dL High: 200-499 mg/dL Very High: >500 mg/dL Performed By: #### L 500.4050, L501.9985, L501.9520, L500.4100, L506.1000, L100.0100 #### [facility] [address] [place], [address] MCV (mean corpuscular volume ) determinationOrdered By: Terrell Schafer on 02-20-2025 MCV (RBC) [Entitic vol] 88.6 fL 81-99 [facility] Mean corpuscular hemoglobin (MCH) determinationOrdered By: Terrell Schafer on 02-20-2025 MCH (RBC) [Entitic mass] 30.4 pg 27.0-32.0 [facility] Mean corpuscular hemoglobin concentration (MCHC) determinationOrdered By: Rubenphillip Schafer on 02-20-2025 MCHC (RBC) [Mass/Vol] 34.3 g/dL 32-36 [facility] Mean platelet volume determi nationOrdered By: Rubensararigobertosadia Ibanezesperanzarickey on 02-20-2025 Platelet mean volume (Bld) [Entitic vol] 11.3 fL 6.2-12.0 [facility] Monocyte percentageOrdered B y: Lashaunsadia Ibanezesperanzarickey on 02-20-2025 Monocytes/100 WBC (Bld) 10.4 % High 0-10 [facility] Neutrophil percentageOrdered By: [facility] Shamarrickey on 02-20-2025 Neutrophils/100 WBC (Bld) 72.4 % High 47-70 [facility] Nucleated red blood cell per centageOrdered By: [facility] Ibanezrickey on 02-20-2025 Nucleated RBC/100 WBC (Bld) [Ratio] 0 % 0-5 [facility] Platelet countOrdered By: Ruben phillip Shamarrickey on 02-20-2025 Platelets (Bld) [#/Vol] 135 10*3/uL Low 150-450 [facility] Potassium measurement (mass/ volume)Ordered By: [facility]ant[facility]ia Ibanezrickey on 02-20-2025 Potassium (Unsp spec) [Mass/Vol] 4.4 mmol/L 3.3-5.1 [facility] Comment on above: Hemolysis present, R esults could be affected. Prothrombin Time w/INRon INR Coag (PPP) [Relative time] 2.5 {INR} Normal [facility] Comment on above: Performed By: #### L 500.4050, L501.9985, L501.9520, L500.4100, L506.1000, L100.0100 #### [facility] [address] [place], [address] PT Coag (PPP) [Time] 27.7 s High 11.7-14.9 [facility] Comment on above: Performed By: #### L 500.4050, L501.9985, L501.9520, L500.4100, L506.1000, L100.0100 #### [facility] [address] [place], [address] Prothrombin timeOrdered By: Joel Judge on 02-20-2025 PT Coag (PPP) [Time] 27.7 s High 11.7-14.9 [facility] RBC Auto (Bld) [#/Vol]Ordere d By: Terrell Schafer on 02-20-2025 RBC (Bld) [#/Vol] 4.14 10*6/uL Low 4.2-5.4 [facility] Screening total cholesterol/ high density lipoprotein (HDL) cholesterol ratioOrdered By: Terrell Schafer on 02-20-2025 Cholesterol.total/Cho lesterol in HDL [Mass ratio] 2.97 {ratio} [facility] Serum creatinine measurement (mass/volume)Ordered By: Terrell Schafer on 02-20-2025 Creatinine [Mass/Vol] 1.14 mg/dL 0.70-1.20 [facility] Serum globulin measurementOr dered By: Terrell Schafer on 02-20-2025 Globulin (S) [Mass/Vol] 2.6 g/dL 2.2-4.2 [facility] Serum glucose measurement (m ass/volume)Ordered By: Terrell Schafer on 02-20-2025 Glucose [Mass/Vol] 341 mg/dL High 70-99 [facility] Serum or plasma alanine huang otransferase (ALT) measurementOrdered By: Terrell Schafer on 02-20-2025 ALT [Catalytic activity/Vol] 23 U/L <35 [facility] Comment on above: Hemolysis present, R esults could be affected. Serum or plasma albumin shaniqua urement (mass/volume)Ordered By: Terrell Schafer on 02-20-2025 Albumin [Mass/Vol] 4.0 g/dL 3.4-4.8 [facility] Serum or plasma albumin/glob ulin mass ratioOrdered By: Terrell Schafer on 02-20-2025 Albumin/Globulin [Mass ratio] 1.5 {ratio} 0.9-2.4 [facility] Serum or plasma alkaline dylan sphatase measurementOrdered By: Terrell Schafer on 02-20-2025 ALP [Catalytic activity/Vol] 90 U/L 35-104 [facility] Serum or plasma calcium shaniqua urement (mass/volume)Ordered By: Terrell Schafer on 02-20-2025 Calcium [Mass/Vol] 9.5 mg/dL 7.6-11.0 [facility] Serum or plasma cholesterol in HDL measurement (mass/volume)Ordered By: Terrell Schafer on 02-20-2025 Cholesterol in HDL [Mass/Vol] 38 mg/dL Low >40 [facility] Comment on above: National Cholesterol Education Program (NCEP) guidelines:<40 mg/dL: Low HDL-cholesterol (major risk factor for CHD)>= 60 mg/dL: High HDL-cholesterol (negative risk factor for CHD)HDL-cholesterol is affected by a number of factors, e.g. smoking, exercise, hormones, sex and age. Serum or plasma cholesterol measurement (mass/volume)Ordered By: Terrell Schafer on 02-20-2025 Cholesterol [Mass/Vol] 113 mg/dL <201 [facility] Comment on above: Cholesterol level, D esirable <200 mg/dLBorderline high cholesterol 200-239 mg/dLHigh cholesterol >=240 mg/dLRecommendations of the NCEP Adult Treatment Panel for the following risk-cutoff thresholds for the [place] population. Serum or plasma urea nitroge n measurement (mass/volume)Ordered By: Terrell Schafer on 02-20-2025 Urea nitrogen [Mass/Vol] 28 mg/dL High 4-19 [facility] Sodium levelOrdered By: Jacob Schafer on 02-20-2025 Sodium [Moles/Vol] 139 mmol/L 133-145 [facility] TSH DL <= 0.005 mIU/L QnOrde red By: Terrell Schafer on 02-20-2025 TSH Qn 2.300 uIU/mL 0.300-4.20 0 [facility] Thyroid Stim Hormone (TSH)on 02-20-2025 TSH 2.300 uIU/mL Normal 0.300-4.20 0 [facility] Comment on above: Performed By: #### L 500.4050, L501.9985, L501.9520, L500.4100, L506.1000, L100.0100 #### [facility] [address] [place], [address] Total proteinOrdered By: Glenn Schafer on 02-20-2025 Protein [Mass/Vol] 6.7 g/dL 5.9-8.4 [facility] Triglycerides measurementOrd ered By: Terrell Schafer on 02-20-2025 Triglyceride [Mass/Vol] 252 mg/dL High <199 [facility] Comment on above: The drugs N-Acetylcy steine and Metamizole may falsely depress this assay. Normal range: <150 mg/dLBorderline High: 150-199 mg/dLHigh: 200-499 mg/dLVery High: >500 mg/dL White blood cell (WBC) count Ordered By: Terrell Schafer on 02-20-2025 WBC (Bld) [#/Vol] 7.9 10*3/uL 4.4-11.0 [facility] Cardiology Visit Reporton Cardiology Visit Report [facility] [address] [place] [address] OFFICE VISIT Date of Service: 02/13/25 MR#: [id number] Acct: [id number] Name: VASILE MILLER Rep #: [id number] : 1940 Provider: SEAN palomino Age/Sex: 84/F Location[facility] Status: Signed HPI HPI History of Present Illness Details: Pleasant 84-year-old lady with a history of hypertension valvular heart disease with a bicuspid aortic valve who recruit located to [place]. It appears that she underwent a TAVR in [place] in 2021. She had a bovine 26 mm transcatheter heart valve placed in the aortic position on 03 June 2022. She also has a history of atrial fibrillation on anticoagulation with warfarin. She had been on that before she went. She also has a past medical history of persistent atrial fibrillation, left bundle branch block, essential hypertension, hyperlipidemia, type 2 diabetes, and obesity. She denies chest, arm, jaw, or neck discomfort. She denies palpitations. She states bilateral lower extremity edema that occurred 1 time. She denies claudication. She denies shortness of breath with activity, shortness of breath at rest, orthopnea, or PND. She denies chronic cough. She denies significant, sudden weight gain. She denies lightheadedness, dizziness, near-syncope, or syncope. She denies blood in urine, blood in stool, or epistaxis. He denies fever with chills. She denies myalgia. She states fatigue that she considers to be unchanged from previous. Her exercise level has remained stable. Intake Vital Signs 11/07/24 10:26 02/13/25 10:49 Height 5 ft 5 in 5 ft 5 in Weight: 223 lb BMI 37.0 BP 157/74 H Blood Pressure Location Rt brachial Position Sitting Respiration 18 Pulse 92 Pulse Source NIBP Intake Visit Reasons: 8 mo f/u [employer] Required: No Accompanied by: Son Is patient in pain?: No Allergies acetaminophen (From Excedrin Migraine) Allergy (Intermediate, Verified 02/13/25 10:59) headache aspirin Allergy (Intermediate, Verified 02/13/25 10:59) headache caffeine (From Excedrin Migraine) Allergy (Intermediate, Verified 02/13/25 10:59) headache mold (mold spores) Allergy (Intermediate, Verified 02/13/25 10:59) respiratory distress lisinopril Adverse Reaction (Severe, Verified 02/13/25 10:59) Cough monosodium glutamate (msg) Adverse Reaction (Intermediate, Verified 02/13/25 10:59) PT UNSURE OF REACTION wheat Adverse Reaction (Intermediate, Verified 02/13/25 10:59) PT UNSURE OF REACTION liraglutide (From Victoza) Adverse Reaction (Verified 02/13/25 10:59) Other Medications ???Medication ???Instructions ???Recorded ???Confirmed ???Type pen needle, diabetic 32 gauge x #400 ea 10/09/20 02/08/25 Rx 32 (BD Ultra-Fine Kimber Pen Needle) hydrochlorothiazide 25 mg tablet 25 mg PO DAILY BLOOD PRESSURE #90 05/07/21 02/13/25 Rx tabs cetirizine 5 mg tablet 5 mg PO DAILY ALLERGIES 06/01/24 0 02/13/25 History amoxicillin 500 mg capsule 2,000 mg PO ONCE PRN DENTAL 02/13/25 History 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 meter,continuous 07/28/24 02/08/25 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) glucagon HCl 1 mg solution for 1 mg subcut Q20M PRN HYPOGLYCEMIA 07/28/24 02/13/25 History injection (Glucagon (HCl) Emergency Kit) nystatin 100,000 unit/gram topical 1 applic topical BID PRN FUNGAL 07/28/24 02/13/25 History powder INFECTION trolamine salicylate 10 % topical 1 applic topical DAILY PRN 02/13/25 History cream (Myoflex) ARTHRITIS alendronate 70 mg tablet 70 mg PO QWEEK OSTEOPEROSIS 02/13/25 History clotrimazole-betamethason e 1 1 applic topical BID PRN FUNGAL 02/13/25 History %-0.05 % topical cream INFECTION insulin degludec 100 unit/mL (3 16 unit subcut BID DIABETES 02/08/25 History mL) subcutaneous pen (Tresiba FlexTouch U-100 insulin) ketoconazole 2 % shampoo 1 applic topical UD PRN FUNGAL 06/0802/13/25 History INFECTION ketoconazole 2 % topical cream 1 applic topical DAILY PRN FUNGAL 08/22/24 02/13/25 History INFECTION magnesium chloride 71.5 mg 143 mg PO DAILY SUPPLEMENT 4 02/13/25 History (magnesium chloride) tablet,delayed release ergocalciferol (vitamin D2) 1,250 50,000 unit PO QWEEK #20 caps 02/13/25 Rx mcg (50,000 unit) capsule levothyroxine 25 mcg tablet 25 mcg PO QDAY #90 tabs 11/07/24 0 02/13/25 Rx metoprolol tartrate 100 mg tablet 100 mg PO BID BLOOD PRESSURE #18 0 11/21/24 02/13/25 Rx tabs warfarin 4 mg tablet 4 mg PO .COMPLEX #180 tabs 5 02/13/25 Rx acetaminophen 500 mg tablet 1,000 mg PO BID PRN 02/13/2502/13 History ascorbic acid (vitamin C) 1,000 mg 1 g PO QDAY 02/13/25 02/13/25 Hi story capsule atorvastatin 40 mg tablet (more content not included)... Normal [facility] Internal Medicine Office Vis iton 02-08-2025 Internal Medicine Office Visit [facility] [address] [place], [place] [address] OFFICE VISIT Date of Service: 02/08/25 MR#: [id number] Acct: [id number] Name: VASILE MILLER Rep #: [id number] : 1940 Provider: Dr. Terrell castro MD Age/Sex: 84/F Location: [facility] Status: Signed Intake Vital Signs 11/07/24 10:26 02/08/25 16:07 Height 5 ft 5 in 5 ft 5 in Weight: 225 lb 6 oz BMI 37.5 BP 122/88 H Blood Pressure Location Lt brachial Position Sitting Respiration 16 Pulse 111 H Pulse Source Monitor Temp 97 F L Temp Source Temporal Pulse Oximetry (%) 94 Oxygen Delivery Method room air Intake Visit Reasons: 3 M FU Chief Complaint: 3m f/u [employer] Required: No Accompanied by: Self Is patient in pain?: No Allergies acetaminophen (From Excedrin Migraine) Allergy (Intermediate, Verified 02/08/25 16:07) headache aspirin Allergy (Intermediate, Verified 02/08/25 16:07) headache caffeine (From Excedrin Migraine) Allergy (Intermediate, Verified 02/08/25 16:07) headache mold (mold spores) Allergy (Intermediate, Verified 02/08/25 16:07) respiratory distress lisinopril Adverse Reaction (Severe, Verified 02/08/25 16:07) Cough monosodium glutamate (msg) Adverse Reaction (Intermediate, Verified 02/08/25 16:07) PT UNSURE OF REACTION wheat Adverse Reaction (Intermediate, Verified 02/08/25 16:07) PT UNSURE OF REACTION liraglutide (From Victoza) Adverse Reaction (Verified 02/08/25 16:07) Other Medications ???Medication ???Instructions ???Recorded ???Confirmed ???Type atorvastatin 40 mg tablet 40 mg PO DAILY CHOLESTEROL 8 02/08/25 History pen needle, diabetic 32 gauge x #400 ea 10/09/20 02/08/25 Rx (BD Ultra-Fine Kimber Pen Needle) hydrochlorothiazide 25 mg tablet 25 mg PO DAILY BLOOD PRESSURE #90 05/07/21 02/08/25 Rx tabs cetirizine 5 mg tablet 5 mg PO DAILY ALLERGIES 06/01/24 0 02/08/25 History furosemide 20 mg tablet 20 mg PO DAILY EDEMA 06/01/2401/15 History amoxicillin 500 mg capsule 2,000 mg PO ONCE PRN DENTAL 02/08/25 History 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 meter,continuous 07/28/24 02/08/25 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) glucagon HCl 1 mg solution for 1 mg subcut Q20M PRN HYPOGLYCEMIA 07/28/24 02/08/25 History injection (Glucagon (HCl) Emergency Kit) nystatin 100,000 unit/gram topical 1 applic topical BID PRN FUNGAL 07/28/24 02/08/25 History powder INFECTION trolamine salicylate 10 % topical 1 applic topical DAILY PRN 02/08/25 History cream (Myoflex) ARTHRITIS alendronate 70 mg tablet 70 mg PO QWEEK OSTEOPEROSIS 02/08/25 History clotrimazole-betamethason e 1 1 applic topical BID PRN FUNGAL 02/08/25 History %-0.05 % topical cream INFECTION insulin degludec 100 unit/mL (3 16 unit subcut BID DIABETES 02/08/25 History mL) subcutaneous pen (Tresiba FlexTouch U-100 insulin) ketoconazole 2 % shampoo 1 applic topical UD PRN FUNGAL 06/0802/08/25 History INFECTION ketoconazole 2 % topical cream 1 applic topical DAILY PRN FUNGAL 08/22/24 02/08/25 History INFECTION losartan 100 mg tablet 100 mg PO DAILY BLOOD PRESSURE 06/0802/08/25 History magnesium chloride 71.5 mg 143 mg PO DAILY SUPPLEMENT 4 02/08/25 History (magnesium chloride) tablet,delayed release oxycodone 5 mg tablet 5 mg PO Q6H PRN pain 5 days #20 02/08/25 Rx tabs sennosides 8.6 mg-docusate sodium 2 tab PO BID PRN PRN Constipation 08/23/24 02/08/25 Rx 50 mg tablet (Stimulant Laxative #30 tabs Plus) tizanidine 2 mg tablet 2 mg PO Q8 PRN muscle spasticity 1 02/08/25 Rx #15 tabs acetaminophen 500 mg tablet 1,000 mg PO Q8 PRN 09/15/24 History ergocalciferol (vitamin D2) 1,250 50,000 unit PO QWEEK #20 caps 02/08/25 Rx mcg (50,000 unit) capsule levothyroxine 25 mcg tablet 25 mcg PO QDAY #90 tabs 11/07/24 0 02/08/25 Rx metoprolol tartrate 100 mg tablet 100 mg PO BID BLOOD PRESSURE #18 0 11/21/24 02/08/25 Rx tabs warfarin 4 mg tablet 4 mg PO .COMPLEX #180 tabs 5 02/08/25 Rx insulin aspart U-100 100 unit/mL 5 unit (0.05 mL) subcut TID #10 mL 02/08/25 02/08/25 Rx subcutaneous solution (Novolog U-100 Insulin aspart) Have you fallen in the past year?: No [facility] Medical History Hepatitis Dementia TIA (transient ischemic attack) Hypercoagulable state due to atrial fibrillation Hypothyroidism Type 2 diabetes mellitus Heart valve transplant recipient Heart valve problem Vitamin deficiency Pneumonia Pancreatitis Murmur, cardiac Hives Generalized headaches Gallstones Cataracts, both eyes Transfusion history Atrial fibrillation retirement (current) (more content not included)... Normal [facility] No Panel InformationOrdered By: Elkin Beltran on 01-29-2025 INR International Normalized Ratio 3.2 High [facility] Prothrombin Time w/INRon INR Coag (PPP) [Relative time] 2.0 {INR} Normal [facility] Comment on above: Performed By: #### L 656.3832 #### [facility] [place], [address] PT Coag (PPP) [Time] 22.3 s High 11.7-14.9 [facility] Comment on above: Performed By: #### L 532.7839 #### [facility] [address] [place], [address] Internal Medicine Office Vis george 11-07-2024 Internal Medicine Office Visit [facility] [address] [place], [place] [address] OFFICE VISIT Date of Service: 11/07/24 MR#: [id number] Acct: [id number] Name: VASILE MILLER Rep #: [id number] : 1940 Provider: Dr. Terrell castro MD Age/Sex: 83/F Location: [facility] Status: Signed Intake Vital Signs 07/28/24 15:53 09/15/24 12:49 11/07/24 10:26 Height 5 ft 5 in 5 ft 5 in 5 ft 5 in Weight: 227 lb BMI 37.8 BP 128/74 H Blood Pressure Location Lt brachial Position Sitting Respiration 16 Pulse 82 Pulse Source Monitor Temp 97.6 F L Temp Source Temporal Pulse Oximetry (%) 98 Oxygen Delivery Method room air Intake Visit Reasons: 3 M FU Chief Complaint: 3m f/u [employer] Required: No Accompanied by: Daughter Is patient in pain?: No Allergies acetaminophen (From Excedrin Migraine) Allergy (Intermediate, Verified 11/07/24 10:19) headache aspirin Allergy (Intermediate, Verified 11/07/24 10:19) headache caffeine (From Excedrin Migraine) Allergy (Intermediate, Verified 11/07/24 10:19) headache mold (mold spores) Allergy (Intermediate, Verified 11/07/24 10:19) respiratory distress lisinopril Adverse Reaction (Severe, Verified 11/07/24 10:19) Cough monosodium glutamate (msg) Adverse Reaction (Intermediate, Verified 11/07/24 10:19) PT UNSURE OF REACTION wheat Adverse Reaction (Intermediate, Verified 11/07/24 10:19) PT UNSURE OF REACTION liraglutide (From Victoza) Adverse Reaction (Verified 11/07/24 10:19) Other Medications ???Medication ???Instructions ???Recorded ???Confirmed ???Type atorvastatin 40 mg tablet 40 mg PO DAILY CHOLESTEROL 12/28/17 11/07/24 History pen needle, diabetic 32 gauge x #400 ea 10/09/20 11/07/24 Rx (BD Ultra-Fine Kimber Pen Needle) hydrochlorothiazide 25 mg tablet 25 mg PO DAILY BLOOD PRESSURE #90 05/07/21 11/07/24 Rx tabs cetirizine 5 mg tablet 5 mg PO DAILY ALLERGIES 06/01/24 11/07/24 History furosemide 20 mg tablet 20 mg PO DAILY EDEMA 06/01/24 11/07/24 History metoprolol tartrate 50 mg tablet 100 mg PO BID BLOOD PRESSURE 06/01/24 11/07/24 History amoxicillin 500 mg capsule 2,000 mg PO ONCE PRN DENTAL 07/28/24 11/07/24 History 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 meter,continuous 07/28/24 11/07/24 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) glucagon HCl 1 mg solution for 1 mg subcut Q20M PRN HYPOGLYCEMIA 07/28/24 11/07/24 History injection (Glucagon (HCl) Emergency Kit) nystatin 100,000 unit/gram topical 1 applic topical BID PRN FUNGAL 07/28/24 11/07/24 History powder INFECTION trolamine salicylate 10 % topical 1 applic topical DAILY PRN 07/28/24 11/07/24 History cream (Myoflex) ARTHRITIS warfarin 1 mg tablet 8 mg PO DAILY BLOOD THINNER 07/28/24 11/07/24 History alendronate 70 mg tablet 70 mg PO QWEEK OSTEOPEROSIS 08/22/24 11/07/24 History clotrimazole-betamethason e 1 1 applic topical BID PRN FUNGAL 08/22/24 11/07/24 History %-0.05 % topical cream INFECTION insulin degludec 100 unit/mL (3 16 unit subcut BID DIABETES 08/22/24 11/07/24 History mL) subcutaneous pen (Tresiba FlexTouch U-100 insulin) ketoconazole 2 % shampoo 1 applic topical UD PRN FUNGAL 08/22/24 11/07/24 History INFECTION ketoconazole 2 % topical cream 1 applic topical DAILY PRN FUNGAL 08/22/24 11/07/24 History INFECTION losartan 100 mg tablet 100 mg PO DAILY BLOOD PRESSURE 08/22/24 11/07/24 History magnesium chloride 71.5 mg 143 mg PO DAILY SUPPLEMENT 08/22/24 11/07/24 History (magnesium chloride) tablet,delayed release oxycodone 5 mg tablet 5 mg PO Q6H PRN pain 5 days #20 08/23/24 11/07/24 Rx tabs sennosides 8.6 mg-docusate sodium 2 tab PO BID PRN PRN Constipation 08/23/24 11/07/24 Rx 50 mg tablet (Stimulant Laxative #30 tabs Plus) tizanidine 2 mg tablet 2 mg PO Q8 PRN muscle spasticity 08/23/24 11/07/24 Rx #15 tabs acetaminophen 500 mg tablet 1,000 mg PO Q8 PRN 09/15/24 11/07/24 History ergocalciferol (vitamin D2) 1,250 50,000 unit PO QWEEK #20 caps 11/07/24 11/07/24 Rx mcg (50,000 unit) capsule levothyroxine 25 mcg tablet 25 mcg PO QDAY #90 tabs 11/07/24 11/07/24 Rx Have you fallen in the past year?: No PFSH Medical History Hepatitis Dementia TIA (transient ischemic attack) Hypercoagulable state due to atrial fibrillation Hypothyroidism Type 2 diabetes mellitus Heart valve transplant recipient Heart valve problem Vitamin deficiency Pneumonia Pancreatitis Murmur, cardiac Hives Generalized headaches Gallstones Cataracts, both eyes Transfusion history Atrial fibrillation retirement (current) use of anticoagulants Persistent atrial fibrillation Nonobstructive atherosclerosis of coronary artery Secondary pulmonary arterial hypertension Aortic stenosis with bicuspid valve Essential (more content not included)... Normal [facility] Prothrombin Time w/INRon INR Coag (PPP) [Relative time] 3.6 {INR} Normal [facility] Comment on above: Performed By: #### L 500.4050, L501.9985, L501.9520, L500.4100, L506.1000, L100.0100 #### [facility] [address] [place], [place], [id number] PT Coag (PPP) [Time] 35.6 s High 11.7-14.9 [facility] Comment on above: Performed By: #### L 500.4050, L501.9985, L501.9520, L500.4100, L506.1000, L100.0100 #### [facility] [address] [place], [address] Prothrombin Time w/INRon INR Coag (PPP) [Relative time] 2.8 {INR} Normal [facility] Comment on above: Performed By: #### L 500.4050, L501.9985, L501.9520, L500.4100, L506.1000, L100.0100 #### [facility] [address] [place], [address] PT Coag (PPP) [Time] 29.1 s High 11.7-14.9 [facility] Comment on above: Performed By: #### L 500.4050, L501.9985, L501.9520, L500.4100, L506.1000, L100.0100 #### [facility] [address] [place], [address] Internal Medicine Office Vis george 09-15-2024 Internal Medicine Office Visit [facility] [address] [place] [address] [place] [address] OFFICE VISIT Date of Service: 09/15/24 MR#: [id number] Acct: [id number] Name: VASILE MILLER Rep #: [id number] : 1940 Provider: SEAN jurado Age/Sex: 83/F Location[place] [facility] Status: Signed Intake Vital Signs 08/22/24 19:04 09/15/24 12:49 Height 5 ft 5 in 5 ft 5 in Weight: 235 lb BMI 39.1 BP 148/86 H Blood Pressure Location Rt brachial Position Sitting Respiration 18 Pulse 55 L Pulse Source Monitor Temp 97.7 F L Temp Source Temporal Pulse Oximetry (%) 96 Oxygen Delivery Method room air Intake Visit Reasons: acute - [facility] [place] [facility] Chief Complaint: acute-[facility] [place] [facility] Is patient in pain?: No Allergies acetaminophen (From Excedrin Migraine) Allergy (Intermediate, Verified 09/15/24 12:46) headache aspirin Allergy (Intermediate, Verified 09/15/24 12:46) headache caffeine (From Excedrin Migraine) Allergy (Intermediate, Verified 09/15/24 12:46) headache mold (mold spores) Allergy (Intermediate, Verified 09/15/24 12:46) respiratory distress lisinopril Adverse Reaction (Severe, Verified 09/15/24 12:46) Cough monosodium glutamate (msg) Adverse Reaction (Intermediate, Verified 09/15/24 12:46) PT UNSURE OF REACTION wheat Adverse Reaction (Intermediate, Verified 09/15/24 12:46) PT UNSURE OF REACTION liraglutide (From Victoza) Adverse Reaction (Verified 09/15/24 12:46) Other Medications ???Medication ???Instructions ???Recorded ???Confirmed ???Type atorvastatin 40 mg tablet 40 mg PO DAILY CHOLESTEROL 12/28/17 09/15/24 History ergocalciferol (vitamin D2) 1,250 50,000 unit PO QWEEK 12/31/17 09/15/24 History mcg (50,000 unit) capsule pen needle, diabetic 32 gauge x #400 ea 10/09/20 09/15/24 Rx (BD Ultra-Fine Kimber Pen Needle) hydrochlorothiazide 25 mg tablet 25 mg PO DAILY BLOOD PRESSURE #90 05/07/21 09/15/24 Rx tabs levothyroxine 25 mcg capsule 25 mcg PO DAILY THYROID 05/07/21 09/15/24 History cetirizine 5 mg tablet 5 mg PO DAILY ALLERGIES 06/01/24 09/15/24 History furosemide 20 mg tablet 20 mg PO DAILY EDEMA 06/01/24 09/15/24 History metoprolol tartrate 50 mg tablet 100 mg PO BID BLOOD PRESSURE 06/01/24 09/15/24 History amoxicillin 500 mg capsule 2,000 mg PO ONCE PRN DENTAL 07/28/24 09/15/24 History 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 meter,continuous 07/28/24 09/15/24 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) glucagon HCl 1 mg solution for 1 mg subcut Q20M PRN HYPOGLYCEMIA 07/28/24 09/15/24 History injection (Glucagon (HCl) Emergency Kit) insulin aspart U-100 100 unit/mL 12 unit subcut TID DIABETES 07/28/24 09/15/24 History (3 mL) subcutaneous pen (Novolog FlexPen U-100 Insulin aspart) nystatin 100,000 unit/gram topical 1 applic topical BID PRN FUNGAL 07/28/24 09/15/24 History powder INFECTION trolamine salicylate 10 % topical 1 applic topical DAILY PRN 07/28/24 09/15/24 History cream (Myoflex) ARTHRITIS warfarin 1 mg tablet 8 mg PO DAILY BLOOD THINNER 07/28/24 09/15/24 History alendronate 70 mg tablet 70 mg PO QWEEK OSTEOPEROSIS 08/22/24 09/15/24 History clotrimazole-betamethason e 1 1 applic topical BID PRN FUNGAL 08/22/24 09/15/24 History %-0.05 % topical cream INFECTION insulin degludec 100 unit/mL (3 16 unit subcut BID DIABETES 08/22/24 08/22/24 History mL) subcutaneous pen (Tresiba FlexTouch U-100 insulin) ketoconazole 2 % shampoo 1 applic topical UD PRN FUNGAL 08/22/24 09/15/24 History INFECTION ketoconazole 2 % topical cream 1 applic topical DAILY PRN FUNGAL 08/22/24 09/15/24 History INFECTION losartan 100 mg tablet 100 mg PO DAILY BLOOD PRESSURE 08/22/24 09/15/24 History magnesium chloride 71.5 mg 143 mg PO DAILY SUPPLEMENT 08/22/24 09/15/24 History (magnesium chloride) tablet,delayed release oxycodone 5 mg tablet 5 mg PO Q6H PRN pain 5 days #20 08/23/24 Rx tabs sennosides 8.6 mg-docusate sodium 2 tab PO BID PRN PRN Constipation 08/23/24 09/15/24 Rx 50 mg tablet (Stimulant Laxative #30 tabs Plus) tizanidine 2 mg tablet 2 mg PO Q8 PRN muscle spasticity 08/23/24 09/15/24 Rx #15 tabs acetaminophen 500 mg tablet 1,000 mg PO Q8 PRN 09/15/24 09/15/24 History gabapentin 100 mg capsule 100 mg PO TIDCM 30 days #90 caps 09/15/24 09/15/24 Rx insulin detemir U-100 100 unit/mL 24 unit (0.24 mL) subcut DAILY #15 09/15/24 09/15/24 Rx (3 mL) subcutaneous pen mL Have you fallen in the past year?: No [facility] Medical History (Updated 09/15/24 @ 13:55 by Brittany Macdonald NP-C) Hepatitis Dementia TIA (transient ischemic attack) Hypercoagulable state due to atrial fibrillation Hypothyroidism Type 2 diabetes mellitus Heart valve transplant recipient Heart valve problem Vitamin deficiency Pneumonia Pancreatitis Murmur, cardiac Hives Generalized headaches Gallstones (more content not included)... Normal [facility] Prothrombin Time w/INRon INR Normal [facility] Comment on above: Result Comment: Canc elled via OM: Order cancelled - Patient discharged Performed By: #### L 500.4050, L501.9985, L501.9520, L500.4100, L506.1000, L100.0100 #### [facility] [address] [place], [address] PROTIME Normal 11.7-14.9 [facility] Comment on above: Result Comment: Canc elled via OM: Order cancelled - Patient discharged Performed By: #### L 500.4050, L501.9985, L501.9520, L500.4100, L506.1000, L100.0100 #### [facility] [address] [place], [address] Prothrombin Time w/INRon INR Normal [facility] Comment on above: Result Comment: Canc elled via OM: Order cancelled - Patient discharged Performed By: #### L 500.4050, L501.9985, L501.9520, L500.4100, L506.1000, L100.0100 #### [facility] [address] [place], [address] PROTIME Normal 11.7-14.9 [facility] Comment on above: Result Comment: Canc elled via OM: Order cancelled - Patient discharged Performed By: #### L 500.4050, L501.9985, L501.9520, L500.4100, L506.1000, L100.0100 #### [facility] [address] [place], [address] Prothrombin Time w/INRon INR Normal [facility] Comment on above: Result Comment: Canc elled via OM: Order cancelled - Patient discharged Performed By: #### L 500.4050, L501.9985, L501.9520, L500.4100, L506.1000, L100.0100 #### [facility] [address] [place], [address] PROTIME Normal 11.7-14.9 [facility] Comment on above: Result Comment: Canc elled via OM: Order cancelled - Patient discharged Performed By: #### L 500.4050, L501.9985, L501.9520, L500.4100, L506.1000, L100.0100 #### [facility] [address] [place], [address] Basic Metabolic Profile (BMP )on 08-23-2024 BUN/CRE 38.1 RATIO High 10-20 [facility] Comment on above: Performed By: #### L 500.4050, L501.9985, L501.9520, L500.4100, L506.1000, L100.0100 #### [facility] [address] [place], [address] CA,Total 8.9 mg/dL Normal 8.5-10.1 [facility] Comment on above: Performed By: #### L 500.4050, L501.9985, L501.9520, L500.4100, L506.1000, L100.0100 #### [facility] [address] [place], [address] Chloride [Moles/Vol] 112 mmol/L High 98-107 [facility] Comment on above: Performed By: #### L 500.4050, L501.9985, L501.9520, L500.4100, L506.1000, L100.0100 #### [facility] [address] [place], [address] CO2 [Moles/Vol] 25.0 mmol/L Normal 21.0-32.0 [facility] Comment on above: Performed By: #### L 500.4050, L501.9985, L501.9520, L500.4100, L506.1000, L100.0100 #### [facility] [address] [place], [address] Creatinine [Mass/Vol] 0.71 mg/dL Normal 0.55-1.02 [facility] Comment on above: Result Comment: The validity of the calculated GFR GFRAA in patients over 70 years has not been determined. Clinical correlation is essential. Performed By: #### L 500.4050, L501.9985, L501.9520, L500.4100, L506.1000, L100.0100 #### [facility] [address] [place], [address] ECRCL 66.23 ml/min Normal [facility] Comment on above: Performed By: #### L 500.4050, L501.9985, L501.9520, L500.4100, L506.1000, L100.0100 #### [facility] [address] [place], [address] EST GFR - AA 102 mL/min Normal >60 [facility] Comment on above: Result Comment: Afri can Bangladeshi GFR Calc Performed By: #### L 500.4050, L501.9985, L501.9520, L500.4100, L506.1000, L100.0100 #### [facility] [address] [place], [address] GAP 6 Normal 5-15 [facility] Comment on above: Performed By: #### L 500.4050, L501.9985, L501.9520, L500.4100, L506.1000, L100.0100 #### [facility] [address] [place], [address] GFR/1.73 sq M.predicted among non-blacks MDRD (S/P/Bld) [Vol rate/Area] 84 mL/min/{1.73_m2} Normal >60 [facility] Comment on above: Result Comment: Non- GFR Calc Performed By: #### L 500.4050, L501.9985, L501.9520, L500.4100, L506.1000, L100.0100 #### [facility] [address], [address] Glucose [Mass/Vol] 170 mg/dL High 74-106 [facility] Comment on above: Result Comment: Fast ing Glucose result greater than or equal to 126 mg/dL suggests DIABETES MELLITUS per A.D.A. criteria. Performed By: #### L 500.4050, L501.9985, L501.9520, L500.4100, L506.1000, L100.0100 #### [facility] [address] [place], [address] Potassium [Moles/Vol] 4.1 mmol/L Normal 3.5-5.1 [facility] Comment on above: Performed By: #### L 500.4050, L501.9985, L501.9520, L500.4100, L506.1000, L100.0100 #### [facility] [address] [place], [address] Sodium [Moles/Vol] 143 mmol/L Normal 136-145 [facility] Comment on above: Performed By: #### L 500.4050, L501.9985, L501.9520, L500.4100, L506.1000, L100.0100 #### [facility] [address] [place], [address] Urea nitrogen [Mass/Vol] 27 mg/dL High 7-18 [facility] Comment on above: Performed By: #### L 500.4050, L501.9985, L501.9520, L500.4100, L506.1000, L100.0100 #### [facility] [address] [place], [address] Bedside Glucoseon 08-23-2024 FINGERSTICK GLU 226 mg/dL High 74-106 [facility] Comment on above: Result Comment: TONI GEMENT OF PATIENT CARE PER NURSING PROTOCOL Performed By: #### L 500.4050, L501.9985, L501.9520, L500.4100, L506.1000, L100.0100 #### [facility] [address] [place], [address] FINGERSTICK GLU 222 mg/dL High 74-106 [facility] Comment on above: Result Comment: TONI GEMENT OF PATIENT CARE PER NURSING PROTOCOL Performed By: #### L 500.4050, L501.9985, L501.9520, L500.4100, L506.1000, L100.0100 #### [facility] [address] [place], [address] FINGERSTICK GLU 159 mg/dL High 74-106 [facility] Comment on above: Result Comment: TONI GEMENT OF PATIENT CARE PER NURSING PROTOCOL Performed By: #### L 500.4050, L501.9985, L501.9520, L500.4100, L506.1000, L100.0100 #### [facility] [address] [place], [address] CBC W/Diff, Automatedon 10-0 Absolute Lymph 1.27 X10 3/uL Normal 0.83-4.51 [facility] Comment on above: Performed By: #### L 500.4050, L501.9985, L501.9520, L500.4100, L506.1000, L100.0100 #### [facility] [address] [place], [address] Absolute Neut 4.3 X10 3/uL Normal 2.0-7.7 [facility] Comment on above: Performed By: #### L 500.4050, L501.9985, L501.9520, L500.4100, L506.1000, L100.0100 #### [facility] [address] [place], [address] Basophils/100 WBC (Bld) 0.5 % Normal 0-1 [facility] Comment on above: Performed By: #### L 500.4050, L501.9985, L501.9520, L500.4100, L506.1000, L100.0100 #### [facility] [address] [place], [address] Eosinophils/100 WBC (Bld) 2.1 % Normal 0-5 [facility] Comment on above: Performed By: #### L 500.4050, L501.9985, L501.9520, L500.4100, L506.1000, L100.0100 #### [facility] [address] [place], [address] Erythrocyte distribution width (RBC) [Ratio] 14.4 % Normal 11.6-14.6 [facility] Comment on above: Performed By: #### L 500.4050, L501.9985, L501.9520, L500.4100, L506.1000, L100.0100 #### [facility] [address] [place], [address] Hematocrit (Bld) [Volume fraction] 34.3 % Low 37-47 [facility] Comment on above: Performed By: #### L 500.4050, L501.9985, L501.9520, L500.4100, L506.1000, L100.0100 #### [facility] [address] [place], [address] Hemoglobin (Bld) [Mass/Vol] 11.1 g/dL Low 12.0-15.0 [facility] Comment on above: Performed By: #### L 500.4050, L501.9985, L501.9520, L500.4100, L506.1000, L100.0100 #### [facility] [address] [place], [address] IG% 0.800 Normal 0.0-0.9 [facility] Comment on above: Result Comment: IG% - Immature Granulocytes (promyelocytes, myelocytes and metamyelocytes) > 1% indicates that a LEFT SHIFT is Present. Performed By: #### L 500.4050, L501.9985, L501.9520, L500.4100, L506.1000, L100.0100 #### [facility] [address] [place], [address] Lymphocytes/100 WBC (Bld) 19.2 % Normal 19-41 [facility] Comment on above: Performed By: #### L 500.4050, L501.9985, L501.9520, L500.4100, L506.1000, L100.0100 #### [facility] [address] [place], [address] MCH (RBC) [Entitic mass] 29.6 pg Normal 27.0-32.0 [facility] Comment on above: Performed By: #### L 500.4050, L501.9985, L501.9520, L500.4100, L506.1000, L100.0100 #### [facility] [address] [place], [address] MCHC (RBC) [Mass/Vol] 32.4 g/dL Normal 32-36 [facility] Comment on above: Performed By: #### L 500.4050, L501.9985, L501.9520, L500.4100, L506.1000, L100.0100 #### [facility] [address] [place], [address] MCV (RBC) [Entitic vol] 91.5 fL Normal 81-99 [facility] Comment on above: Performed By: #### L 500.4050, L501.9985, L501.9520, L500.4100, L506.1000, L100.0100 #### [facility] [address] [place], [address] Monocytes/100 WBC (Bld) 12.4 % High 0-10 [facility] Comment on above: Performed By: #### L 500.4050, L501.9985, L501.9520, L500.4100, L506.1000, L100.0100 #### [facility] [address] [place], [address] Neutrophils/100 WBC (Bld) 65.0 % Normal 47-70 [facility] Comment on above: Performed By: #### L 500.4050, L501.9985, L501.9520, L500.4100, L506.1000, L100.0100 #### [facility] [address] [place], [address] Nucleated RBC (Bld) [#/Vol] 0 10*3/uL Normal 0-5 [facility] Comment on above: Performed By: #### L 500.4050, L501.9985, L501.9520, L500.4100, L506.1000, L100.0100 #### [facility] [address] [place], [address] Platelet mean volume (Bld) [Entitic vol] 11.0 fL Normal 6.2-12.0 [facility] Comment on above: Performed By: #### L 500.4050, L501.9985, L501.9520, L500.4100, L506.1000, L100.0100 #### [facility] [address] [place], [address] Platelets (Bld) [#/Vol] 121 10*3/uL Low 150-450 [facility] Comment on above: Performed By: #### L 500.4050, L501.9985, L501.9520, L500.4100, L506.1000, L100.0100 #### [facility] [address] [place], [address] RBC (Bld) [#/Vol] 3.75 10*6/uL Low 4.2-5.4 [facility] Comment on above: Performed By: #### L 500.4050, L501.9985, L501.9520, L500.4100, L506.1000, L100.0100 #### [facility] [address] [place], [address] RDW SD 48.0 fl High 35.1-43.9 [facility] Comment on above: Performed By: #### L 500.4050, L501.9985, L501.9520, L500.4100, L506.1000, L100.0100 #### [facility] [address] [place], [address] WBC (Bld) [#/Vol] 6.6 10*3/uL Normal 4.4-11.0 [facility] Comment on above: Performed By: #### L 500.4050, L501.9985, L501.9520, L500.4100, L506.1000, L100.0100 #### [facility] [address] [place], [address] Prothrombin Time w/INRon INR Coag (PPP) [Relative time] 3.2 {INR} Normal [facility] Comment on above: Performed By: #### L 500.4050, L501.9985, L501.9520, L500.4100, L506.1000, L100.0100 #### [facility] [address] [place], [address] PT Coag (PPP) [Time] 32.2 s High 11.7-14.9 [facility] Comment on above: Performed By: #### L 500.4050, L501.9985, L501.9520, L500.4100, L506.1000, L100.0100 #### [facility] [address] [place], [address] Urinalysis, Completeon 08-23 BACTERIA 1+ /hpf Normal None Seen [facility] Comment on above: Order Comment: CLEAN CATCH Performed By: #### L 500.4050, L501.9985, L501.9520, L500.4100, L506.1000, L100.0100 #### [facility] [address] [place], [address] EPI,SQUAMOUS 0-5 SEEN Normal 5-10 [facility] Comment on above: Order Comment: CLEAN CATCH Performed By: #### L 500.4050, L501.9985, L501.9520, L500.4100, L506.1000, L100.0100 #### [facility] [facility] [address] [place], [address] WBC 0-5 SEEN Normal 0-5 [facility] Comment on above: Order Comment: CLEAN CATCH Performed By: #### L 500.4050, L501.9985, L501.9520, L500.4100, L506.1000, L100.0100 #### [facility] [address] [place], [address] Mucus Ql (Urine sed) 0 SEEN Normal [facility] Comment on above: Order Comment: CLEAN CATCH Performed By: #### L 500.4050, L501.9985, L501.9520, L500.4100, L506.1000, L100.0100 #### [facility] [address] [place], [address] RBC 0 SEEN Normal 0-5 [facility] Comment on above: Order Comment: CLEAN CATCH Performed By: #### L 500.4050, L501.9985, L501.9520, L500.4100, L506.1000, L100.0100 #### [facility] [address] [place], [address] Bedside Glucoseon 08-22-2024 FINGERSTICK GLU 237 mg/dL High [address] [place] [address] Comment on above: Result Comment: TONI GEMENT OF PATIENT CARE PER NURSING PROTOCOL Performed By: #### L 501.080 #### [facility] [address] [place], [address] FINGERSTICK GLU 158 mg/dL High [address] [place] [address] Comment on above: Result Comment: TONI GEMENT OF PATIENT CARE PER NURSING PROTOCOL Performed By: #### L 500.4050, L501.9985, L501.9520, L500.4100, L506.1000, L100.0100 #### [facility] [address] [place], [address] Emergency Department Summary on 08-22-2024 Emergency Department Summary [facility] Medical Records Department [address] [place] [address] Emergency Department Summary 08/22/24 MR#: [id number] Acct: [id number] Name: VASILE MILLER Rep #: [id number] : 1940 83 From: Tay Dc DO PCP: Dr. Terrell Schafer MD Status:REG ER Location: ED HPI History of Present Illness Chief Complaint: Back Narrative Narrative: Patient is a 83-year-old female past medical history of hypothyroidism, type 2 diabetes, mechanical valve on warfarin, hypertension who presented to the emerged part with chief complaint of back pain. Patient states that her back pain started Thursday morning and notes that the only thing she can think of that exacerbated her back pain was Thursday she had a a lot of errands to run and she noted that she got in and out of cars. Patient states that she does not do well with getting in and out of cars and feels like that she flared her back up. States that she took Tylenol for pain control which was not helping. States that her pain was so severe today that she was having difficulty getting up and walking. According to the for member at bedside he is respiratory therapist and is comfortable taking care at home however he notes that he does not have the proper equipment to do so currently and is requesting talk with social work. 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 Persistent atrial fibrillation Nonobstructive atherosclerosis of coronary artery Secondary pulmonary arterial hypertension Aortic stenosis with bicuspid valve Essential (primary) hypertension Environmental allergies Hyperlipidemia Paroxysmal atrial fibrillation Rapid atrial fibrillation (12/2019) Diabetes Morbid obesity with BMI of 40.0-44.9, adult Home Medications ???Medication ???Instructions ???Recorded ???Last Taken ???Type magnesium chloride 71.5 mg 71.5 mg PO DAILY ##30 12/26/14 Unknown Rx (magnesium chloride) tablet,delayed release atorvastatin 40 mg tablet 40 mg PO QDAY 12/28/17 Unknown History ergocalciferol (vitamin D2) 1,250 50,000 unit PO QWEEK 12/31/17 Unknown History mcg (50,000 unit) capsule losartan 100 mg tablet 100 mg PO QDAY #90 tabs 09/10/20 Unknown Rx alendronate 70 mg effervescent 70 mg PO QWEEK 09/19/20 Unknown History tablet pen needle, diabetic 32 gauge x #400 ea 10/09/20 Unknown Rx (BD Ultra-Fine Kimber Pen Needle) hydrochlorothiazide 25 mg tablet 25 mg PO DAILY #90 tabs 05/07/21 Unknown Rx levothyroxine 25 mcg capsule 25 mcg PO DAILY 05/07/21 Unknown History cetirizine 5 mg tablet 5 mg PO DAILY PRN 06/01/24 Unknown History furosemide 20 mg tablet 20 mg PO DAILY 06/01/24 Unknown History insulin detemir U-100 100 unit/mL 22 unit subcut DAILY 06/01/24 Unknown History (3 mL) subcutaneous pen metoprolol tartrate 50 mg tablet 100 mg PO BID 06/01/24 Unknown History acetaminophen 650 mg 650 mg PO Q12H PRN 07/28/24 Unknown History tablet,extended release (Tylenol Arthritis Pain) amoxicillin 500 mg capsule 2,000 mg PO ONCE PRN 07/28/24 Unknown History 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 meter,continuous 07/28/24 Unknown History (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 Developer Consultant) clotrimazole-betamethason e 1 1 applic topical BID PRN 07/28/24 Unknown History %-0.05 % topical cream glucagon HCl 1 mg solution for 1 mg subcut Q20M PRN 07/28/24 Unknown History injection (Glucagon (HCl) Emergency Kit) glucose tablets sublingual PRN 07/28/24 Unknown History insulin aspart U-100 100 unit/mL 12 unit subcut TID 07/28/24 Unknown History (3 mL) subcutaneous pen (Novolog FlexPen U-100 Insulin aspart) insulin degludec 100 unit/mL 16 unit subcut BID 07/28/24 Unknown History subcutaneous solution (Tresiba U-100 Insulin) ketoconazole 2 % shampoo 1 applic topical 2XW PRN 07/28/24 Unknown History ketoconazole 2 % topical cream 1 applic topical QDAY PRN 07/28/24 Unknown History nystatin 100,000 unit/gram topical 1 applic topical BID PRN 07/28/24 Unknown History powder trolamine salicylate 10 % topical 1 applic topical QDAY PRN 07/28/24 Unknown History cream (Myoflex) warfarin 1 mg tablet 8 mg PO DAILY 07/28/24 Unknown History Allergy/AdvReac Type Severity Reaction Status Date / Time acetaminophen (From Excedrin Allergy Intermediate headache Verified 08/22/24 11:19 Migraine) aspirin Allergy Intermediate headache Verified 08/22/24 11:19 caffeine (From Excedrin Allergy Intermediate headache Verified 08/22/24 11:19 Migraine) mold (mold spores) Allergy Intermediate respiratory Verified 08/22/24 11:19 distre (more content not included)... Normal [facility] H AND P Exam - [facility] 08-22-2024 H&P Exam - Hospitalist [facility] Medical Records Department [address] [place] [address] H P Exam - Hospitalist 08/22/24 1507 MR#: [id number] Acct: [id number] Name: VASILE MILLER Rep #: [id number] : 1940 83 From: Manolo Morejon MD PCP: Dr. Terrell Schafer MD Status:ADM ANNA Location: [facility] [id number] HPI - General General Date of Admission: 08/22/24 Date of Service: 08/22/24 Chief Complaint: Back pain HPI Narrative VASILE MILLER, is a 83 F with a significant history of diabetes mellitus with CKD stage III; bicuspid aortic valve status post bovine TAVR; hypothyroidism; atrial fibrillation on Coumadin; heart valve replacement who presents excruciating pain at her lower back. The pain is at her right waistline. The pain is constant with intermittent sharp pain. The pain can get as worse as 10 out of 10. The pain worsens with getting up and moving the wrong way. The pain improves with walking and sitting still. The pain started 3 days before presentation when she sat on the side of bed. Stating the pain came on because she had multiple trips with a vehicle. Typically she has pain with getting on vitals. She denies any bowel or bladder incontinence. [facility] Medical History Hypothyroidism Type 2 diabetes mellitus Heart valve problem Vitamin deficiency Pneumonia Pancreatitis Murmur, cardiac Hives Generalized headaches Gallstones Cataracts, both eyes Transfusion history retirement (current) use of anticoagulants Persistent atrial fibrillation Nonobstructive atherosclerosis of coronary artery Secondary pulmonary arterial hypertension Aortic stenosis with bicuspid valve Essential (primary) hypertension Environmental allergies Hyperlipidemia Paroxysmal atrial fibrillation Rapid atrial fibrillation (12/2019) Diabetes Morbid obesity with BMI of 40.0-44.9, adult Home Medications ???Medication ???Instructions ???Recorded ???Last Taken ???Type magnesium chloride 71.5 mg 71.5 mg PO DAILY SUPPLEMENT ##30 12/26/14 08/21/24 Rx (magnesium chloride) tablet,delayed release atorvastatin 40 mg tablet 40 mg PO DAILY CHOLESTEROL 12/28/17 08/21/24 History ergocalciferol (vitamin D2) 1,250 50,000 unit PO QWEEK 12/31/17 Unknown History mcg (50,000 unit) capsule pen needle, diabetic 32 gauge x #400 ea 10/09/20 Unknown Rx (BD Ultra-Fine Kimber Pen Needle) hydrochlorothiazide 25 mg tablet 25 mg PO DAILY BLOOD PRESSURE #90 05/07/21 08/21/24 Rx tabs levothyroxine 25 mcg capsule 25 mcg PO DAILY THYROID 05/07/21 08/21/24 History cetirizine 5 mg tablet 5 mg PO DAILY PRN ALLERGIES 06/01/24 Unknown History furosemide 20 mg tablet 20 mg PO DAILY EDEMA 06/01/24 08/21/24 History insulin detemir U-100 100 unit/mL 22 unit subcut DAILY 06/01/24 Unknown History (3 mL) subcutaneous pen metoprolol tartrate 50 mg tablet 100 mg PO BID BLOOD PRESSURE 06/01/24 08/22/24 History acetaminophen 650 mg 650 mg PO Q12H PRN PAIN 07/28/24 08/21/24 History tablet,extended release (Tylenol Arthritis Pain) amoxicillin 500 mg capsule 2,000 mg PO ONCE PRN DENTAL 07/28/24 Unknown History 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 meter,continuous 07/28/24 Unknown History (Arigocom G7 Java Developer Consultant) glucagon HCl 1 mg solution for 1 mg subcut Q20M PRN HYPOGLYCEMIA 07/28/24 Unknown History injection (Glucagon (HCl) Emergency Kit) insulin aspart U-100 100 unit/mL 12 unit subcut TID DIABETES 07/28/24 08/21/24 History (3 mL) subcutaneous pen (Novolog FlexPen U-100 Insulin aspart) nystatin 100,000 unit/gram topical 1 applic topical BID PRN FUNGAL 07/28/24 Unknown History powder INFECTION trolamine salicylate 10 % topical 1 applic topical DAILY PRN 07/28/24 Unknown History cream (Myoflex) ARTHRITIS warfarin 1 mg tablet 8 mg PO DAILY BLOOD THINNER 07/28/24 08/21/24 History alendronate 70 mg tablet 70 mg PO QWEEK OSTEOPEROSIS 08/22/24 Unknown History clotrimazole-betamethason e 1 1 applic topical BID PRN FUNGAL 08/22/24 Unknown History %-0.05 % topical cream INFECTION insulin degludec 100 unit/mL (3 16 unit subcut BID DIABETES 08/22/24 Unknown History mL) subcutaneous pen (Tresiba FlexTouch U-100 insulin) ketoconazole 2 % shampoo 1 applic topical UD PRN FUNGAL 08/22/24 Unknown History INFECTION ketoconazole 2 % topical cream 1 applic topical DAILY PRN FUNGAL 08/22/24 Unknown History INFECTION losartan 100 mg tablet 100 mg PO DAILY BLOOD PRESSURE 08/22/24 08/21/24 History Allergy/AdvReac Type Severity Reaction Status Date / Time acetaminophen (From Excedrin Allergy Intermediate headache Verified 08/22/24 11:19 Migraine) aspirin Allergy Intermediate headache Verified 08/22/24 11:19 caffeine (From Excedrin Allergy Intermediate headache Verified 08/22/24 11:19 Migraine) mold (mold spores (more content not included)... Normal [facility] L/S Spine Min 4 Viewson 10-0 7-2024 L/S Spine Min 4 Views [facility] Imaging Services [address] [place] [address] L/S Spine Min 4 Views MR#: [id number] Acct: [id number] Name: VASILE MILLER Rep #: [id number] : 1940 F 83 From: Rei Hodges MD PCP: Dr. Terrell Schafer MD Status: REG ER Study: L/S Spine Min 4 Views Date of Exam: 08/22/24 Exam# [id number] Ordering Dr: Tay Dc DO [id number] STUDY: X-RAY - LUMBAR SPINE REASON FOR EXAM: Female, 83 years old. back pain TECHNIQUE: 4 view(s) of the lumbar spine were obtained. COMPARISON: None FINDINGS: Normal lumbar lordosis. There is no substantial scoliosis. 2 mm of anterolisthesis of L4 on L5. There is multilevel endplate spondylosis of the lumbar vertebrae. There is multi-level degenerative disc disease with multi-level disc space narrowing. There is multilevel facet hypertrophy. The soft tissue structures are unremarkable. RAD/L/S Spine Min 4 Views IMPRESSION: Degenerative changes of the spine, as detailed above. Electronically Signed: Rei Hodges MD at 13:48 EDT , CC: Dr. Terrell Schafer MD; Dr. Tay Dc DO Screw Machine Set Up Operator: Signed Normal [facility] Prothrombin Time w/INRon INR Coag (PPP) [Relative time] 3.3 {INR} Normal [facility] Comment on above: Performed By: #### L 500.4050, L501.9985, L501.9520, L500.4100, L506.1000, L100.0100 #### [facility] [address] [place], [address] PT Coag (PPP) [Time] 33.0 s High 11.7-14.9 [facility] Comment on above: Performed By: #### L 500.4050, L501.9985, L501.9520, L500.4100, L506.1000, L100.0100 #### [facility] [address] [place], [address] CBC W/Diff, Automatedon 09- Absolute Lymph 1.46 X10 3/uL Normal 0.83-4.51 [facility] Comment on above: Performed By: #### L 500.4050, L501.9985, L501.9520, L500.4100, L506.1000, L100.0100 #### [facility] [address] [place], [address] Absolute Neut 4.7 X10 3/uL Normal 2.0-7.7 [facility] Comment on above: Performed By: #### L 500.4050, L501.9985, L501.9520, L500.4100, L506.1000, L100.0100 #### [facility] [address] [place], [address] Basophils/100 WBC (Bld) 0.7 % Normal 0-1 [facility] Comment on above: Performed By: #### L 500.4050, L501.9985, L501.9520, L500.4100, L506.1000, L100.0100 #### [facility] [address] [place], [address] Eosinophils/100 WBC (Bld) 2.9 % Normal 0-5 [facility] Comment on above: Performed By: #### L 500.4050, L501.9985, L501.9520, L500.4100, L506.1000, L100.0100 #### [facility] [address] [place], [address] Erythrocyte distribution width (RBC) [Ratio] 14.0 % Normal 11.6-14.6 [facility] Comment on above: Performed By: #### L 500.4050, L501.9985, L501.9520, L500.4100, L506.1000, L100.0100 #### [facility] [address] [place], [address] Hematocrit (Bld) [Volume fraction] 37.2 % Normal 37-47 [facility] Comment on above: Performed By: #### L 500.4050, L501.9985, L501.9520, L500.4100, L506.1000, L100.0100 #### [facility] [address] [place], [address] Hemoglobin (Bld) [Mass/Vol] 12.2 g/dL Normal 12.0-15.0 [facility] Comment on above: Performed By: #### L 500.4050, L501.9985, L501.9520, L500.4100, L506.1000, L100.0100 #### [facility] [address] [place], [address] IG% 0.500 Normal 0.0-0.9 [facility] Comment on above: Result Comment: IG% - Immature Granulocytes (promyelocytes, myelocytes and metamyelocytes) > 1% indicates that a LEFT SHIFT is Present. Performed By: #### L 500.4050, L501.9985, L501.9520, L500.4100, L506.1000, L100.0100 #### [facility] [address] [place], [address] Lymphocytes/100 WBC (Bld) 19.8 % Normal 19-41 [facility] Comment on above: Performed By: #### L 500.4050, L501.9985, L501.9520, L500.4100, L506.1000, L100.0100 #### [facility] [address] [place], [address] MCH (RBC) [Entitic mass] 29.3 pg Normal 27.0-32.0 [facility] Comment on above: Performed By: #### L 500.4050, L501.9985, L501.9520, L500.4100, L506.1000, L100.0100 #### [facility] [address] [place], [address] MCHC (RBC) [Mass/Vol] 32.8 g/dL Normal 32-36 [facility] Comment on above: Performed By: #### L 500.4050, L501.9985, L501.9520, L500.4100, L506.1000, L100.0100 #### [facility] [address] [place], [address] MCV (RBC) [Entitic vol] 89.2 fL Normal 81-99 [facility] Comment on above: Performed By: #### L 500.4050, L501.9985, L501.9520, L500.4100, L506.1000, L100.0100 #### [facility] [address] [place], [address] Monocytes/100 WBC (Bld) 11.8 % High 0-10 [facility] Comment on above: Performed By: #### L 500.4050, L501.9985, L501.9520, L500.4100, L506.1000, L100.0100 #### [facility] [address] [place], [address] Neutrophils/100 WBC (Bld) 64.3 % Normal 47-70 [facility] Comment on above: Performed By: #### L 500.4050, L501.9985, L501.9520, L500.4100, L506.1000, L100.0100 #### [facility] [address] [place], [address] Nucleated RBC (Bld) [#/Vol] 0 10*3/uL Normal 0-5 [facility] Comment on above: Performed By: #### L 500.4050, L501.9985, L501.9520, L500.4100, L506.1000, L100.0100 #### [facility] [address] [place], [address] Platelet mean volume (Bld) [Entitic vol] 11.3 fL Normal 6.2-12.0 [facility] Comment on above: Performed By: #### L 500.4050, L501.9985, L501.9520, L500.4100, L506.1000, L100.0100 #### [facility] [address] [place], [address] Platelets (Bld) [#/Vol] 158 10*3/uL Normal 150-450 [facility] Comment on above: Performed By: #### L 500.4050, L501.9985, L501.9520, L500.4100, L506.1000, L100.0100 #### [facility] [address] [place], [address] RBC (Bld) [#/Vol] 4.17 10*6/uL Low 4.2-5.4 [facility] Comment on above: Performed By: #### L 500.4050, L501.9985, L501.9520, L500.4100, L506.1000, L100.0100 #### [facility] [address] [place], [address] RDW SD 45.2 fl High 35.1-43.9 [facility] Comment on above: Performed By: #### L 500.4050, L501.9985, L501.9520, L500.4100, L506.1000, L100.0100 #### [facility] [address] [place], [address] WBC (Bld) [#/Vol] 7.4 10*3/uL Normal 4.4-11.0 [facility] Comment on above: Performed By: #### L 500.4050, L501.9985, L501.9520, L500.4100, L506.1000, L100.0100 #### [facility] [address] [place], [address] Comprehensive Metabolic Prof [facility] 08-04-2024 Albumin [Mass/Vol] 3.3 g/dL Normal 3.2-5.0 [facility] Comment on above: Performed By: #### L 500.4050, L501.9985, L501.9520, L500.4100, L506.1000, L100.0100 #### [facility] [address] [place], [address] Albumin/Globulin [Mass ratio] 1.0 {ratio} Normal 0.9-2.4 [facility] Comment on above: Performed By: #### L 500.4050, L501.9985, L501.9520, L500.4100, L506.1000, L100.0100 #### [facility] [address] [place], [address] ALK P 79 U/L Normal 45-117 [facility] Comment on above: Performed By: #### L 500.4050, L501.9985, L501.9520, L500.4100, L506.1000, L100.0100 #### [facility] [address] [place], [address] ALT [Catalytic activity/Vol] 32 U/L Normal 13-56 [facility] Comment on above: Performed By: #### L 500.4050, L501.9985, L501.9520, L500.4100, L506.1000, L100.0100 #### [facility] [address] [place], [address] AST [Catalytic activity/Vol] 28 U/L Normal 15-37 [facility] Comment on above: Performed By: #### L 500.4050, L501.9985, L501.9520, L500.4100, L506.1000, L100.0100 #### [facility] [address] [place], [address] Bilirubin [Mass/Vol] 0.90 mg/dL Normal 0.20-1.00 [facility] Comment on above: Result Comment: For patients on eltrombopag therapy, use of Dimension [place] TBIL is not recommended. Performed By: #### L 500.4050, L501.9985, L501.9520, L500.4100, L506.1000, L100.0100 #### [facility] [address] [place], [address] BUN/CRE 28.7 RATIO High 10-20 [facility] Comment on above: Performed By: #### L 500.4050, L501.9985, L501.9520, L500.4100, L506.1000, L100.0100 #### [facility] [address] [place], [address] CA,Total 9.2 mg/dL Normal 8.5-10.1 [facility] Comment on above: Performed By: #### L 500.4050, L501.9985, L501.9520, L500.4100, L506.1000, L100.0100 #### [facility] [address] [place], [address] Chloride [Moles/Vol] 112 mmol/L High 98-107 [facility] Comment on above: Performed By: #### L 500.4050, L501.9985, L501.9520, L500.4100, L506.1000, L100.0100 #### [facility] [address] [place], [address] CO2 [Moles/Vol] 27.0 mmol/L Normal 21.0-32.0 [facility] Comment on above: Performed By: #### L 500.4050, L501.9985, L501.9520, L500.4100, L506.1000, L100.0100 #### [facility] [address] [place], [address] Creatinine [Mass/Vol] 0.77 mg/dL Normal 0.55-1.02 [facility] Comment on above: Result Comment: The validity of the calculated GFR GFRAA in patients over 70 years has not been determined. Clinical correlation is essential. Performed By: #### L 500.4050, L501.9985, L501.9520, L500.4100, L506.1000, L100.0100 #### [facility] [address] [place], [address] EST GFR - AA 93 mL/min Normal >60 [facility] Comment on above: Result Comment: Afri can [place] GFR Calc Performed By: #### L 500.4050, L501.9985, L501.9520, L500.4100, L506.1000, L100.0100 #### [facility] [address] [place], [address] GAP 3 Low 5-15 [facility] Comment on above: Performed By: #### L 500.4050, L501.9985, L501.9520, L500.4100, L506.1000, L100.0100 #### [facility] [address] [place], [address] GFR/1.73 sq M.predicted among non-blacks MDRD (S/P/Bld) [Vol rate/Area] 77 mL/min/{1.73_m2} Normal >60 [facility] Comment on above: Result Comment: Non- GFR Calc Performed By: #### L 500.4050, L501.9985, L501.9520, L500.4100, L506.1000, L100.0100 #### [facility] [address] [place], [address] Globulin (S) [Mass/Vol] 3.4 g/dL Normal 2.2-4.2 [facility] Comment on above: Performed By: #### L 500.4050, L501.9985, L501.9520, L500.4100, L506.1000, L100.0100 #### [facility] [address] [place], [address] Glucose [Mass/Vol] 204 mg/dL High 74-106 [facility] Comment on above: Result Comment: Gluc ose result greater than or equal to 200 mg/dL suggests DIABETES MELLITUS per A.D.A. criteria. Performed By: #### L 500.4050, L501.9985, L501.9520, L500.4100, L506.1000, L100.0100 #### [facility] [address] [place], [address] Potassium [Moles/Vol] 4.0 mmol/L Normal 3.5-5.1 [facility] Comment on above: Performed By: #### L 500.4050, L501.9985, L501.9520, L500.4100, L506.1000, L100.0100 #### [facility] [address] [place], [address] Sodium [Moles/Vol] 142 mmol/L Normal 136-145 [facility] Comment on above: Performed By: #### L 500.4050, L501.9985, L501.9520, L500.4100, L506.1000, L100.0100 #### [facility] [address] [place], [address] T PROT 6.7 g/dL Normal 6.4-8.2 [facility] Comment on above: Performed By: #### L 500.4050, L501.9985, L501.9520, L500.4100, L506.1000, L100.0100 #### [facility] [address] [place], [address] Urea nitrogen [Mass/Vol] 22 mg/dL High 7-18 [facility] Comment on above: Performed By: #### L 500.4050, L501.9985, L501.9520, L500.4100, L506.1000, L100.0100 #### [facility] [address] [place], [address] Hemoglobin A1con 08-04-2024 HbA1c (Bld) [Mass fraction] 6.3 % High 3.8-5.6 [facility] Comment on above: Result Comment: Norm al < 5.7 % Prediabetic 5.7 - 6.4 % Diabetic >or= 6.5 % Please note range changes. Performed By: #### L 500.4050, L501.9985, L501.9520, L500.4100, L506.1000, L100.0100 #### [facility] [address] [place], [address] Lipid Profileon 08-04-2024 Cholesterol [Mass/Vol] 89 mg/dL Normal 200 [facility] Comment on above: Result Comment: <200 mg/dL Desirable 200-240 mg/dL Borderline >240 mg/dL High Risk Performed By: #### L 500.4050, L501.9985, L501.9520, L500.4100, L506.1000, L100.0100 #### [facility] [address] [place], [address] Cholesterol in HDL [Mass/Vol] 47 mg/dL Normal [facility] Comment on above: Result Comment: The drugs N-Acetylcysteine and Metamizole may falsely depress this assay. Reference Range HDL <40 mg/dL Low HDL Cholesterol HDL >or= 60 mg/dL High HDL Cholesterol Performed By: #### L 500.4050, L501.9985, L501.9520, L500.4100, L506.1000, L100.0100 #### [facility] [address] [place], [address] Cholesterol in LDL [Mass/Vol] 18 mg/dL Normal 0-130 [facility] Comment on above: Performed By: #### L 500.4050, L501.9985, L501.9520, L500.4100, L506.1000, L100.0100 #### [facility] [address] [place], [address] Cholesterol in VLDL [Mass/Vol] 24 mg/dL Normal 5-40 [facility] Comment on above: Performed By: #### L 500.4050, L501.9985, L501.9520, L500.4100, L506.1000, L100.0100 #### [facility] [address] [place], [address] Triglyceride [Mass/Vol] 122 mg/dL Normal [facility] Comment on above: Result Comment: The drugs N-Acetylcysteine and Metamizole may falsely depress this assay. Serum Triglycerides Reference Interval Normal <150 mg/dL Borderline high 150 - 199 mg/dL High 200 - 499 mg/dL Very High > or = 500 mg/dL Performed By: #### L 500.4050, L501.9985, L501.9520, L500.4100, L506.1000, L100.0100 #### [facility] [address] [place], [address] Microalb:Creat Ratio,Random URon 08-04-2024 Creatinine [Mass/Vol] 151.00 mg/dL Normal NO RAN GE EST. [facility] Comment on above: Performed By: #### L 500.4050, L501.9985, L501.9520, L500.4100, L506.1000, L100.0100 #### [facility] [address] [place], [address] MALB:CRE 47.7 mg/g CRE High <30 mg/g CRE [facility] Comment on above: Performed By: #### L 500.4050, L501.9985, L501.9520, L500.4100, L506.1000, L100.0100 #### [facility] [address] [place], [address] MICROALBUMIN,UR 72.1 mg/L Normal NO RANGE EST. [facility] Comment on above: Performed By: #### L 500.4050, L501.9985, L501.9520, L500.4100, L506.1000, L100.0100 #### [facility] [address] [place], [address] Thyroid Stim Hormone (TSH)on 08-04-2024 TSH 1.720 uIU/mL Normal 0.358-3.74 0 [facility] Comment on above: Performed By: #### L 500.4050, L501.9985, L501.9520, L500.4100, L506.1000, L100.0100 #### [facility] [address] [place], [address] Vitamin D,25 Hydroxyon 08-04 Vitamin D 25-OH 85.5 ng/mL Normal [facility] Comment on above: Result Comment: Kassi min D 25(OH) Status Range Deficiency <20 ng/mL (50nmol/L) Insufficiency 20 - 30 ng/mL (50 - 75 nmol/L) Sufficiency 30 - 100 ng/mL (75 - 250 nmol/L) Toxicity >100 ng/mL (>250 nmol/L) Performed By: #### L 500.4050, L501.9985, L501.9520, L500.4100, L506.1000, L100.0100 #### [facility] [address] [place], [address] Internal Medicine Office Vis iton 07-28-2024 Internal Medicine Office Visit [facility] [address] [place], [place] [address] OFFICE VISIT Date of Service: 07/28/24 MR#: [id number] Acct: [id number] Name: VASILE MILLER Rep #: [id number] : 1940 Provider: Dr. 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 Chief Complaint: Establish care Is patient in pain?: No Allergies acetaminophen (From Excedrin Migraine) Allergy (Intermediate, Verified 07/28/24 15:38) headache aspirin Allergy (Intermediate, Verified 07/28/24 15:38) headache caffeine (From Excedrin Migraine) Allergy (Intermediate, Verified 07/28/24 15:38) headache mold (mold spores) Allergy (Intermediate, Verified 06/01/24 14:41) respiratory distress lisinopril Adverse Reaction (Severe, Verified 06/01/24 14:38) Cough monosodium glutamate (msg) Adverse Reaction (Intermediate, Verified 06/01/24 14:41) PT UNSURE OF REACTION wheat Adverse Reaction (Intermediate, Verified 06/01/24 14:41) PT UNSURE OF REACTION liraglutide (From Victoza) Adverse Reaction (Verified 06/01/24 14:38) Other Medications ???Medication ???Instructions ???Recorded ???Confirmed ???Type magnesium chloride 71.5 mg 71.5 mg PO DAILY ##30 12/26/14 07/28/24 Rx (magnesium chloride) tablet,delayed release atorvastatin 40 mg tablet 40 mg PO QDAY 12/28/17 07/28/24 History ergocalciferol (vitamin D2) 1,250 50,000 unit PO QWEEK 12/31/17 07/28/24 History mcg (50,000 unit) capsule losartan 100 mg tablet 100 mg PO QDAY #90 tabs 09/10/20 07/28/24 Rx alendronate 70 mg effervescent 70 mg PO QWEEK 09/19/20 07/28/24 History tablet pen needle, diabetic 32 gauge x #400 ea 10/09/20 07/28/24 Rx /32 (BD Ultra-Fine Kimber Pen Needle) hydrochlorothiazide 25 mg tablet 25 mg PO DAILY #90 tabs 05/07/21 07/28/24 Rx levothyroxine 25 mcg capsule 25 mcg PO DAILY 05/07/21 07/28/24 History cetirizine 5 mg tablet 5 mg PO DAILY PRN 06/01/24 07/28/24 History furosemide 20 mg tablet 20 mg PO DAILY 06/01/24 07/28/24 History insulin detemir U-100 100 unit/mL 22 unit subcut DAILY 06/01/24 06/01/24 History (3 mL) subcutaneous pen metoprolol tartrate 50 mg tablet 100 mg PO BID 06/01/24 07/28/24 History acetaminophen 650 mg 650 mg PO Q12H PRN 07/28/24 07/28/24 History tablet,extended release (Tylenol Arthritis Pain) amoxicillin 500 mg capsule 2,000 mg PO ONCE PRN 07/28/24 07/28/24 History 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 meter,continuous 07/28/24 07/28/24 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) clotrimazole-betamethason e 1 1 applic topical BID PRN 07/28/24 07/28/24 History %-0.05 % topical cream glucagon HCl 1 mg solution for 1 mg subcut Q20M PRN 07/28/24 07/28/24 History injection (Glucagon (HCl) Emergency Kit) glucose tablets sublingual PRN 07/28/24 History insulin aspart U-100 100 unit/mL 12 unit subcut TID 07/28/24 History (3 mL) subcutaneous pen (Novolog FlexPen U-100 Insulin aspart) insulin degludec 100 unit/mL 16 unit subcut BID 07/28/24 07/28/24 History subcutaneous solution (Tresiba U-100 Insulin) ketoconazole 2 % shampoo 1 applic topical 2XW PRN 07/28/24 07/28/24 History ketoconazole 2 % topical cream 1 applic topical QDAY PRN 07/28/24 07/28/24 History nystatin 100,000 unit/gram topical 1 applic topical BID PRN 07/28/24 07/28/24 History powder trolamine salicylate 10 % topical 1 applic topical QDAY PRN 07/28/24 07/28/24 History cream (Myoflex) warfarin 1 mg tablet 8 mg PO DAILY 07/28/24 07/28/24 History Have you fallen in the past year?: No PFSH Medical History (Updated 07/28/24 @ 19:[address] Terrell Schafer MD) Hypothyroidism Type 2 diabetes mellitus Heart valve problem Vitamin deficiency Pneumonia Pancreatitis Murmur, cardiac Hives Generalized headaches Gallstones Cataracts, both eyes Transfusion history retirement (current) use of anticoagulants Persistent atrial fibrillation Nonobstructive atherosclerosis of coronary artery Secondary pulmonary arterial hypertension Aortic stenosis with bicuspid valve Essential (primary) hypertension Environmental allergies Hyperlipidemia Paroxysmal atrial fibrillation Rapid atrial fibrillation (12/2019) Diabetes Morbid obesity with BMI of 40.0-44.9, adult Surgical History History of left heart catheterization (03/11/12) History of appendectomy History of hysterectomy History of cholecystectomy (more content not included)... Normal [facility] Prothrombin Time w/INRon INR Coag (PPP) [Relative time] 3.1 {INR} Normal [facility] Comment on above: Order Comment: Comme nts: STANDING ORDER: Fax to [phone] Performed By: #### L 300.3900 #### [facility] [address] [place], [place], [address] PT Coag (PPP) [Time] 31.8 s High 11.7-14.9 [facility] Comment on above: Order Comment: Comme nts: STANDING ORDER: Fax to [phone] Performed By: #### L 300.3900 #### [facility] [address] [place], [place], [address] Echo Completeon 06-14-2024 Echo Complete [facility] [address] [place] [address] Echo Complete 06/14/24 1400 MR#: [id number] Acct: [id number] Name: VASILE MILLER Rep #: [id number] : 1940 83 From: Joel Judge MD Attending Dr: Dr. Joel Judge MD Status: REG C ALEXEY Ordering Dr: Joel Judge MD Date: 06/14/24 Location: [facility] Sex: F C Admitted: Reason For Study: ATRIAL FIBRILLATION Procedure This was a 2D Doppler, Color Flow transthoracic echocardiogram. Exam performed in department. Left Ventricle Normal LV size. The left ventricular ejection fraction is 50 %. Left ventricular systolic function is lower limits of normal. No regional wall motion abnormalities noted. Right Ventricle Normal RV size. Normal systolic function. Atria Normal left atrium. Normal right atrium. Mitral Valve There is mild mitral annular calcification. Tricuspid Valve Normal tricuspid valve. Mild to moderate (1-2+) tricuspid valve insufficiency. Pulmonary artery systolic pressure is 42 mmHg. Aortic Valve Bioprosthetic aortic valve. Great Vessels Mildly dilated aortic root. The ascending aorta is mild-moderately dilated. The pulmonary artery is normal size. Inferior vena cava collapse with respiration. Pericardium/Pleural No pericardial effusion. MMode/2D Measurements Calculations LVIDd: 3.6 cm IVSd: 1.6 cm LVOT diam: 2.0 cm LVIDs: 2.2 cm LVPWd: 1.1 cm LVOT area: 3.2 cm2 RVDd: 3.6 cm FS: 38.5 % Ao root diam: 4.0 cm LAV(MOD-bp): 68.2 ml LVAd ap4: 19.0 cm2 LAV(MOD-bp) Indexed: 32.1 ml/m2 LVLd ap4: 7.1 cm LAV(MOD-sp2): 77.5 ml EDV(MOD-sp4): 44.2 ml LAV(MOD-sp4): 54.9 ml EDV(sp4-el): 42.8 ml LVAs ap4: 12.4 cm2 LVLs ap4: 6.1 cm ESV(MOD-sp4): 22.3 ml ESV(sp4-el): 21.7 ml EF(MOD-sp4): 49.5 % EF(sp4-el): 49.4 % SV(MOD-sp4): 21.9 ml SV(MOD-sp2): 16.8 ml LVAd ap2: 17.1 cm2 LVLd ap2: 6.8 cm EDV(MOD-sp2): 35.8 ml EDV(sp2-el): 36.7 ml LVAs ap2: 11.7 cm2 LVLs ap2: 6.2 cm ESV(MOD-sp2): 19.0 ml ESV(sp2-el): 18.7 ml EF(MOD-sp2): 46.9 % SV(sp4-el): 21.2 ml LA A4 area: 20.7 cm2 LA dimension(2D): 4.3 cm TAPSE: 1.3 cm RA A4 area: 20.3 cm2 Time Measurements MV dec time: 0.15 sec Doppler Measurements Calculations MV E max yunier: 121.8 cm/sec Lat Peak E' Yunier: 10.2 cm/sec Med Peak E' Yunier: 7.4 cm/sec E/E' lat: 11.9 E/E' med: 16.5 Ao V2 max: 155.0 cm/sec LV V1 max: 133.5 cm/sec SV(LVOT): 82.7 ml Ao max P.6 mmHg LV V1 max P.1 mmHg Ao V2 mean: 104.0 cm/sec LV V1 mean P.1 mmHg Ao mean P.9 mmHg LV V1 mean: 96.5 cm/sec Ao V2 VTI: 28.5 cm LV V1 VTI: 25.9 cm AV (velocity ratio): 0.91 KINSEY(I,D): 2.9 cm2 KINSEY(V,D): 2.7 cm2 PA V2 max: 75.4 cm/sec TR max yunier: 310.9 cm/sec PA max PG (full): 1.2 mmHg TR max P.7 mmHg ECHO/Echo Complete Interpretation Summary Normal LV size. Bioprosthetic aortic valve. The left ventricular ejection fraction is 50 %. Left ventricular systolic function is lower limits of normal. Mild to moderate (1-2+) tricuspid valve insufficiency. ___ Ordering Physician: Joel Judge Referring Physician: Joel Judge MD Performed By: Feli Gore RDCS and Student 06/14/24 1502 Date Joel Judge MD CC: Dr. Joel Judge MD; No Primary Care Physician Date Dictated: 06/14/24 1400 Date Transcribed: 06/14/24 1509 Screw Machine Set Up Operator: Signed [facility] PT (PROTHROMBIN TIME) ([id number] )Ordered By: Teresita Ruiz on 06-18-2023 PT (PROTHROMBIN TIME) ([id number]) [facility]; [facility] Work Phone: Comment on above: PERFORMED BY: Vestorly Cjases[address] [place] [id number] PT (PROTHROMBIN TIME) ([id number] )Ordered By: Teresita Ruiz on 06-01-2023 PT (PROTHROMBIN TIME) ([id number]) [facility]; [facility] Work Phone: Comment on above: PERFORMED BY: Vestorly Pubfre6[address] Road[address] [place] [id number] PT (PROTHROMBIN TIME) ([id number] )Ordered By: Teresita Ruiz on 03-25-2023 PT (PROTHROMBIN TIME) ([id number]) [facility]; [facility] Work Phone: Comment on above: PERFORMED BY: Vestorly Caonij5[address] [place] [id number] PT (PROTHROMBIN TIME) ([id number] )Ordered By: Teresita Ruiz on 12-23-2022 PT (PROTHROMBIN TIME) ([id number]) [facility]; [facility] Work Phone: Comment on above: PERFORMED BY: Vestorly Xqwwwx[address] [place] [id number] PT (PROTHROMBIN TIME) ([id number] )Ordered By: Teresita Ruiz on 10-16-2022 PT (PROTHROMBIN TIME) ([id number]) [facility]; [facility] Work Phone: Comment on above: PERFORMED BY: Vestorly Ynftqm[address] [place] [id number] PT (PROTHROMBIN TIME) ([id number]) [facility]; [facility] Work Phone: Comment on above: PERFORMED BY: Vestorly Chfrcy[address] [place] [id number] PT (PROTHROMBIN TIME) ([id number] )Ordered By: Teresita Ruiz on 09-25-2022 PT (PROTHROMBIN TIME) ([id number]) [facility]; [facility] Work Phone: Comment on above: PERFORMED BY: Vestorly Hqaqhf[address] [place] [id number] PT (PROTHROMBIN TIME) ([id number] )Ordered By: Teresita Ruiz on 06-09-2022 PT (PROTHROMBIN TIME) ([id number]) [facility]; [facility] Work Phone: Comment on above: PERFORMED BY: Vestorly Pydobv[address] [place] [id number] PT (PROTHROMBIN TIME) ([id number] )Ordered By: Teresita Ruiz on 03-25-2022 PT (PROTHROMBIN TIME) ([id number]) [facility]; [facility] Work Phone: Comment on above: PERFORMED BY: Vestorly Huiinh[address] [place] [id number] PT (PROTHROMBIN TIME) ([id number] )Ordered By: Teresita Ruiz on 03-22-2022 PT (PROTHROMBIN TIME) ([id number]) [facility]; [facility] Work Phone: Comment on above: PERFORMED BY: Vestorly Wwqadg59[address] [place] [id number] PT (PROTHROMBIN TIME) ([id number] )Ordered By: Teresita Ruiz on 01-09-2022 PT (PROTHROMBIN TIME) ([id number]) [facility]; [facility] Work Phone: Comment on above: PERFORMED BY: Vestorly Hnhogl74[address] [place] [id number] PT (PROTHROMBIN TIME) ([id number] )Ordered By: Teresita Ruiz on 01-06-2022 PT (PROTHROMBIN TIME) ([id number]) [facility]; [facility] Work Phone: Comment on above: PERFORMED BY: Vestorly Xcdfed[address] [place] [id number] PT (PROTHROMBIN TIME) ([id number] )Ordered By: Teresita Ruiz on 01-03-2022 PT (PROTHROMBIN TIME) ([id number]) [facility]; [facility] Work Phone: Comment on above: PERFORMED BY: Vestorly Hhqukk[address] [place] [id number] PT (PROTHROMBIN TIME) ([id number] )Ordered By: Teresita Ruiz on 01-01-2022 PT (PROTHROMBIN TIME) ([id number]) [facility]; [facility] Work Phone: Comment on above: PERFORMED BY: Vestorly Umyfmv[address] [place] [id number] PT (PROTHROMBIN TIME) ([id number] )Ordered By: Teresita Ruiz on 12-31-2021 PT (PROTHROMBIN TIME) ([id number]) [facility]; [facility] Work Phone: Comment on above: PERFORMED BY: Maimailin[address] [place] [id number] PT (PROTHROMBIN TIME) ([id number] )Ordered By: Bottling Attendant on 12-23-2021 INR Coag (PPP) [Relative time] 2.0 {INR} Abnormal 0.9-1.2 [facility]; [facility] Work Phone: Comment on above: Reference interval i s for non-anticoagulated patients. . Suggested INR therapeutic range for Vitamin K antagonist therapy: Standard Dose (moderate intensity therapeutic range): 2.0 - 3.0 Higher intensity therapeutic range 2.5 - 3.5 PATIENT NOT FASTINGP ERFORMED BY: Quanterixlin[address] [place] [id number] PT Coag (PPP) [Time] 20.9 s Abnormal 9.1-12.0 [facility]; [facility] Work Phone: Comment on above: PATIENT NOT FASTINGP ERFORMED BY: [employer] Azjscy[address] [place] [id number] PT (PROTHROMBIN TIME) ([id number] )Ordered By: Bottling Attendant on 12-09-2021 INR Coag (PPP) [Relative time] 1.8 {INR} Abnormal 0.9-1.2 [facility]; [facility] Work Phone: Comment on above: Reference interval i s for non-anticoagulated patients. . Suggested INR therapeutic range for Vitamin K antagonist therapy: Standard Dose (moderate intensity therapeutic range): 2.0 - 3.0 Higher intensity therapeutic range 2.5 - 3.5 PATIENT NOT FASTINGP ERFORMED BY: [employer] Lqvplm[address] [place] [id number] PT Coag (PPP) [Time] 19.3 s Abnormal 9.1-12.0 [facility]; [facility] Work Phone: Comment on above: PATIENT NOT FASTINGP ERFORMED BY: [employer] Egkwfj[address] Road[address] [place] [id number] PT (PROTHROMBIN TIME) ([id number] )Ordered By: Teresita Ruiz on 11-29-2021 PT (PROTHROMBIN TIME) ([id number]) [facility]; [facility] Work Phone: Comment on above: PERFORMED BY: [employer] Mariangel Vssxtb[address] [place] [id number] PT (PROTHROMBIN TIME) ([id number] )Ordered By: Teresita Ruiz on 11-19-2021 PT (PROTHROMBIN TIME) ([id number]) [facility]; [facility] Work Phone: Comment on above: PERFORMED BY: [employer] Seqtst[address] [place] [id number] PT (PROTHROMBIN TIME) ([id number] )Ordered By: Teresita Ruiz on 11-18-2021 PT (PROTHROMBIN TIME) ([id number]) [facility]; [facility] Work Phone: Comment on above: PERFORMED BY: Vestorly Ojbzzi[address] [place] [id number] PT (PROTHROMBIN TIME) ([id number] )Ordered By: Bottling Attendant on 11-04-2021 INR Coag (PPP) [Relative time] 2.0 {INR} Abnormal 0.9-1.2 [facility]; [facility] Work Phone: Comment on above: Reference interval i s for non-anticoagulated patients. . Suggested INR therapeutic range for Vitamin K antagonist therapy: Standard Dose (moderate intensity therapeutic range): 2.0 - 3.0 Higher intensity therapeutic range 2.5 - 3.5 PATIENT NOT FASTINGP ERFORMED BY: [employer] Hjahcu6[address] RoadDuin [place] [id number] PT Coag (PPP) [Time] 21.3 s Abnormal 9.1-12.0 [facility] rehensive Internal Medicine; [facility] Work Phone: Comment on above: PATIENT NOT FASTINGP ERFORMED BY: RAOUL Velasquez Bjhahl[address] [place] [id number] PT (PROTHROMBIN TIME) ([id number] )Ordered By: Bottling Attendant on 10-28-2021 INR Coag (PPP) [Relative time] 1.8 {INR} Abnormal 0.9-1.2 [facility]; [facility] Work Phone: Comment on above: Reference interval i s for non-anticoagulated patients. . Suggested INR therapeutic range for Vitamin K antagonist therapy: Standard Dose (moderate intensity therapeutic range): 2.0 - 3.0 Higher intensity therapeutic range 2.5 - 3.5 PATIENT NOT FASTINGP ERFORMED BY: [facility] Rxuniy7628 So RoadUnc Healthin [place] [id number] PT Coag (PPP) [Time] 19.3 s Abnormal 9.1-12.0 Comp rehensive [facility]; [facility] Work Phone: Comment on above: PATIENT NOT FASTINGP ERFORMED BY: RAOUL Velasquez Ggitzk[address] [facility]in [place] [id number] PT (PROTHROMBIN TIME) ([id number] )Ordered By: Bottling Attendant on 10-07-2021 INR Coag (PPP) [Relative time] 1.4 {INR} Abnormal 0.9-1.2 [facility]; [facility] Work Phone: Comment on above: Reference interval i s for non-anticoagulated patients. . Suggested INR therapeutic range for Vitamin K antagonist therapy: Standard Dose (moderate intensity therapeutic range): 2.0 - 3.0 Higher intensity therapeutic range 2.5 - 3.5 PATIENT NOT FASTINGP ERFORMED BY: RAOUL [facility] Ozrxje[address] RoadD[address] [place] [id number] PT Coag (PPP) [Time] 15.4 s Abnormal 9.1-12.0 [facility] rehensive [facility]; [facility] Work Phone: Comment on above: PATIENT NOT FASTINGP ERFORMED BY: ItsPlatonic[address] [employer] ConsultingAffinity Health Partners [id number] Blood Glucose , Office (3396 2)Ordered By: Virginie Calderón on 09-13-2021 Glucose Glucometer (BldC) [Moles/Vol] 290 1 Normal [facility]; [facility] Work Phone: HgA1C , Office ([id number])Ordere d By: Dante Salmon on 09-13-2021 HbA1c (Bld) [Mass fraction] 9.6 % Abnormal 4.6 - 7.1 [facility]; [facility] Work Phone: PT (PROTHROMBIN TIME) ([id number] )Ordered By: Bottling Attendant on 09-13-2021 INR Coag (PPP) [Relative time] 2.2 {INR} Abnormal 0.9-1.2 [facility]; [facility] Work Phone: Comment on above: Reference interval i s for non-anticoagulated patients. . Suggested INR therapeutic range for Vitamin K antagonist therapy: Standard Dose (moderate intensity therapeutic range): 2.0 - 3.0 Higher intensity therapeutic range 2.5 - 3.5 PATIENT NOT FASTINGP ERFORMED BY: ItsPlatonic6[address] BlizuuScionHealth [id number] PT Coag (PPP) [Time] 23.5 s Abnormal 9.1-12.0 Comp rehens[facility]; [facility] Work Phone: Comment on above: PATIENT NOT FASTINGP ERFORMED BY: ItsPlatonic[address] [place] BlizuuScionHealth [id number] PT (PROTHROMBIN TIME) ([id number] )Ordered By: Bottling Attendant on 07-12-2021 INR Coag (PPP) [Relative time] 1.7 {INR} Abnormal 0.9-1.2 [facility]; [facility] Work Phone: Comment on above: Reference interval i s for non-anticoagulated patients. . Suggested INR therapeutic range for Vitamin K antagonist therapy: Standard Dose (moderate intensity therapeutic range): 2.0 - 3.0 Higher intensity therapeutic range 2.5 - 3.5 PATIENT NOT FASTINGP ERFORMED BY: RAOUL ALTO CINCO Dnsbku1669 So BlizuuScionHealth [id number] PT Coag (PPP) [Time] 18.2 s Abnormal 9.1-12.0 [facility] re[facility]; [facility] Work Phone: Comment on above: PATIENT NOT FASTINGP ERFORMED BY: ALTO CINCO Jxbrrc4093 [facility] [id number] Blood Glucose , Office ([phone] 2)Ordered By: Dante Salmon on 06-10-2021 Glucose Glucometer (BldC) [Moles/Vol] 295 1 Normal [facility]; [facility] Work Phone: CALCIFEDIOL ([id number])Ordered B y: Bottling Attendant on 06-10-2021 25-hydroxyvitamin D [Mass/Vol] 62.7 ng/mL Normal 30.0-100.0 [facility]; [facility] Work Phone: Comment on above: Vitamin D deficiency has been defined by the [place] [employer] and an Endocrine Society practice guideline as alevel of serum 25-OH vitamin D less than 20 ng/mL (1,2).The Endocrine Society went on to further define vitamin Dinsufficiency as a level between 21 and 29 ng/mL (2).1. IOM ([place] [employer]). 2010. Dietary reference intakes for calcium and D. [place]: The National Academies Press.2. Joe MF, Norma NC, Rhonda LOCKHART, et al. Evaluation, treatment, and prevention of vitamin D deficiency: an Endocrine Society clinical practice guideline. JCEM. 2010; 96(7):1911-30. PATIENT NOT FASTINGP ERFORMED BY: ALTO CINCOrp Bsgjob4549 [facility] [id number] CBC, Platelets & Auto Diff ( [id number])Ordered By: Bottling Attendant on 06-10-2021 Basophils (Bld) [#/Vol] 0.1 10*3/uL Normal 0.0-0.2 [facility]; [facility] Work Phone: Comment on above: PATIENT NOT FASTINGP ERFORMED BY: RAOUL Cowan6370 So [facility] [place] [id number] Basophils/100 WBC (Bld) 1 % Normal [facility]; [facility] Work Phone: Comment on above: PATIENT NOT FASTINGP ERFORMED BY: RAOUL Cowan[address] [place] [id number] Eosinophils (Bld) [#/Vol] 0.2 10*3/uL Normal 0.0-0.4 [facility]; [facility] Work Phone: Comment on above: PATIENT NOT FASTINGP ERFORMED BY: RAOUL Velasquez Kxckxx1939 So RoadUnc Healthin [place] [id number] Eosinophils/100 WBC (Bld) 3 % Normal [facility]; [facility] Work Phone: Comment on above: PATIENT NOT FASTINGP ERFORMED BY: RAOUL Cuevalin6370 So [facility] [id number] Erythrocyte distribution width (RBC) [Ratio] 13.4 % Normal 11.7-15.4 [facility]; [facility] Work Phone: Comment on above: PATIENT NOT FASTINGP ERFORMED BY: RAOUL Cowan6370 So [facility] [id number] Hematocrit (Bld) [Volume fraction] 41.8 % Normal 34.0-46.6 [facility]; [facility] Work Phone: Comment on above: PATIENT NOT FASTINGP ERFORMED BY: RAOUL Velasquez Tgjwol3671 So [facility] [id number] Hemoglobin (Bld) [Mass/Vol] 13.4 g/dL Normal 11.1-15.9 [facility]; [facility] Work Phone: Comment on above: PATIENT NOT FASTINGP ERFORMED BY: RAOUL Cuevalin6370 [address] [facility] [place] [id number] Immature granulocytes (Bld) [#/Vol] 0.1 10*3/uL Normal 0.0-0.1 [facility]; [facility] Work Phone: Comment on above: PATIENT NOT FASTINGP ERFORMED BY: RAOUL LabCojoe CuevaThdhim1268 So [facility]bl[facility] [place] [id number] Immature granulocytes/100 WBC (Bld) 1 % Normal [facility]; [facility] Work Phone: Comment on above: PATIENT NOT FASTINGP ERFORMED BY: RAOUL KiranCojoe CowanYydrmv4265 So [facility] [place] [id number] Lymphocytes (Bld) [#/Vol] 1.5 10*3/uL Normal 0.7-3.1 [facility]; [facility] Work Phone: Comment on above: PATIENT NOT FASTINGP ERFORMED BY: RAOUL LabCojoe CowanGaxkts2544 So [facility]in [place] [id number] Lymphocytes/100 WBC (Bld) 16 % Normal [facility]; [facility] Work Phone: Comment on above: PATIENT NOT FASTINGP ERFORMED BY: RAOUL Cuevalin6370 So [facility] [id number] MCH (RBC) [Entitic mass] 28.9 pg Normal 26.6-33.0 [facility]; [facility] Work Phone: Comment on above: PATIENT NOT FASTINGP ERFORMED BY: RAOUL LabMariangel Cowan6370 [address] [facility] [place] [id number] MCHC (RBC) [Mass/Vol] 32.1 g/dL Normal 31.5-35.7 [facility] prehensive Internal Medicine; [facility] Work Phone: Comment on above: PATIENT NOT FASTINGP ERFORMED BY: RAOUL LabCo Zbcosj4770 So [facility]in [place] [id number] MCV (RBC) [Entitic vol] 90 fL Normal 79-97 [facility]; [facility] Work Phone: Comment on above: PATIENT NOT FASTINGP ERFORMED BY: RAOUL LabMariangel CuevaSbpwch5097 So [facility] [place] [id number] Monocytes (Bld) [#/Vol] 1.0 10*3/uL Abnormal 0.1-0.9 [facility]; [facility] Work Phone: Comment on above: PATIENT NOT FASTINGP ERFORMED BY: CB [facility] Pvlusf2664 So RoadDublin [place] [id number] Monocytes/100 WBC (Bld) 11 % Normal [facility]; [facility] Work Phone: Comment on above: PATIENT NOT FASTINGP ERFORMED BY: CB [facility] Lonkpz2292 So RoadDublin [place] [id number] Neutrophils (Bld) [#/Vol] 6.4 10*3/uL Normal 1.4-7.0 [facility]; [facility] Work Phone: Comment on above: PATIENT NOT FASTINGP ERFORMED BY: CB [facility] Siurxh1869 So RoadDublin [place] [id number] Neutrophils/100 WBC (Bld) 68 % Normal [facility]; [facility] Work Phone: Comment on above: PATIENT NOT FASTINGP ERFORMED BY: CB [facility] Jdwfvy3022 So RoadDublin [place] [id number] Platelets (Bld) [#/Vol] 160 10*3/uL Normal 150-450 [facility]; [facility] Work Phone: Comment on above: PATIENT NOT FASTINGP ERFORMED BY: CB [facility] Kjhwjr3314 So RoadDublin [place] [id number] RBC (Bld) [#/Vol] 4.64 10*6/uL Normal 3.77-5.28 Compr ehensive Internal Medicine; [facility] Work Phone: Comment on above: PATIENT NOT FASTINGP ERFORMED BY: CB [facility] Jnfhda1584 So RoadDublin [place] [id number] WBC (Bld) [#/Vol] 9.2 10*3/uL Normal 3.4-10.8 [facility]; [facility] Work Phone: Comment on above: PATIENT NOT FASTINGP ERFORMED BY: CB [facility] Vjptma4040 So RoadDublin [place] [id number] HgA1C , Office ([id number])Rubén chaidez By: Dante Salmon on 06-10-2021 HbA1c (Bld) [Mass fraction] 10.8 % Abnormal 4.6 - 7.1 [facility]; [facility] Work Phone: Metabolic Panel, Comprehi ru ([phone])Ordered By: Bottling Attendant on 06-10-2021 Albumin [Mass/Vol] 4.2 g/dL Normal 3.7-4.7 [facility] Internal Medicine; [facility] Work Phone: Comment on above: PATIENT NOT FASTINGP ERFORMED BY: CB [facility] Vvvibu4416 So RoadDublin [place] [id number] Albumin/Globulin [Mass ratio] 1.6 {ratio} Normal 1.2-2.2 [facility]; [facility] Work Phone: Comment on above: PATIENT NOT FASTINGP ERFORMED BY: CB [facility] Atqxwl9637 So RoadDublin [place] [id number] ALP [Catalytic activity/Vol] 137 U/L Abnormal 48-121 [facility]; [facility] Work Phone: Comment on above: PATIENT NOT FASTINGP ERFORMED BY: CB [facility] Zukvkh6510 So RoadDublin [place] [id number] ALT [Catalytic activity/Vol] 19 U/L Normal 0-32 [facility]; [facility] Work Phone: Comment on above: PATIENT NOT FASTINGP ERFORMED BY: CB [facility] Mtcdrd9807 So RoadDublin [place] [id number] AST [Catalytic activity/Vol] 18 U/L Normal 0-40 [facility]; [facility] Work Phone: Comment on above: PATIENT NOT FASTINGP ERFORMED BY: CB [facility] Psbhwf0310 So RoadDublin [place] [id number] Bilirubin [Mass/Vol] 0.9 mg/dL Normal 0.0-1.2 [facility] Internal Medicine; [facility] Work Phone: Comment on above: PATIENT NOT FASTINGP ERFORMED BY: CB [facility] Bgvptq0477 So RoadDublin [place] [id number] Calcium [Mass/Vol] 9.5 mg/dL Normal 8.7-10.3 [facility]; [facility] Work Phone: Comment on above: PATIENT NOT FASTINGP ERFORMED BY: LabCoEssex County HospitalXxbveg1644 So [facility] [id number] Chloride [Moles/Vol] 98 mmol/L Normal 96-106 Comp rehensive Internal Medicine; [facility] Work Phone: Comment on above: PATIENT NOT FASTINGP ERFORMED BY: LabCoEssex County HospitalVlgeao7889 So [facility] [id number] CO2 [Moles/Vol] 22 mmol/L Normal 20-29 [facility]; [facility] Work Phone: Comment on above: PATIENT NOT FASTINGP ERFORMED BY: LabCoEssex County HospitalWnxpia3834 [facility] [id number] Creatinine [Mass/Vol] 1.30 mg/dL Abnormal 0.57-1.00 Com prehensive Internal Medicine; [facility] Work Phone: Comment on above: PATIENT NOT FASTINGP ERFORMED BY: [facility]6370 [facility] [id number] GFR/1.73 sq M.predicted among blacks CKD-EPI (S/P/Bld) [Vol rate/Area] 45 mL/min/1.73 Abnormal [facility]; [facility] Work Phone: Comment on above: [facility] currently reports eGFR in compliance with the current recommendations of the National Kidney Foundation. [facility] will update reporting as new guidelines are published from the NKF-ASN Task force. PATIENT NOT FASTINGP ERFORMED BY: LabCoEssex County HospitalFwiauh4505 So [facility] [id number] GFR/1.73 sq M.predicted among non-blacks CKD-EPI (S/P/Bld) [Vol rate/Area] 39 mL/min/1.73 Abnormal [facility]; [facility] Work Phone: Comment on above: PATIENT NOT FASTINGP ERFORMED BY: LabCo Hyjjns7517 [facility] [id number] Globulin (S) [Mass/Vol] 2.7 g/dL Normal 1.5-4.5 [facility]; [facility] Work Phone: Comment on above: PATIENT NOT FASTINGP ERFORMED BY: RAOUL Arcelia Qktglh8152 [facility] [id number] Glucose [Mass/Vol] 351 mg/dL Abnormal 65-99 [facility] Internal [facility]; [facility] Work Phone: Comment on above: Client Requested [place] PATIENT NOT FASTINGP ERFORMED BY: RAOUL [facility]6370 [facility] [id number] Potassium [Moles/Vol] 4.4 mmol/L Normal 3.5-5.2 [facility] Internal Medicine; [facility] Work Phone: Comment on above: PATIENT NOT FASTINGP ERFORMED BY: RAOUL [facility] Onvpbg8003 [facility] [id number] Protein [Mass/Vol] 6.9 g/dL Normal 6.0-8.5 [facility] Internal Medicine; [facility] Work Phone: Comment on above: PATIENT NOT FASTINGP ERFORMED BY: RAOUL [facility] Wprstk2630 [facility] [id number] Sodium [Moles/Vol] 135 mmol/L Normal 134-144 [facility] Internal Medicine; [facility] Work Phone: Comment on above: PATIENT NOT FASTINGP ERFORMED BY: [facility]6370 [facility] [id number] Urea nitrogen [Mass/Vol] 36 mg/dL Abnormal 8-27 [facility]; [facility] Work Phone: Comment on above: PATIENT NOT FASTINGP ERFORMED BY: RAOUL [facility] Kyghur5890 [facility] [id number] Urea nitrogen/Creatinine [Mass ratio] 28 mg/mg Normal 12-28 [facility]; [facility] Work Phone: Comment on above: PATIENT NOT FASTINGP ERFORMED BY: [place] Lflfda7617 So RoadDublin [place] [id number] PT (PROTHROMBIN TIME) ([id number] )Ordered By: Bottling Attendant on 06-10-2021 INR Coag (PPP) [Relative time] 2.6 {INR} Abnormal 0.9-1.2 [facility]; [facility] Work Phone: Comment on above: Reference interval i s for non-anticoagulated patients. . Suggested INR therapeutic range for Vitamin K antagonist therapy: Standard Dose (moderate intensity therapeutic range): 2.0 - 3.0 Higher intensity therapeutic range 2.5 - 3.5 PATIENT NOT FASTINGP ERFORMED BY: [employer] [employer] Gwtydp8246 So RoadDublin [place] [id number] PT Coag (PPP) [Time] 26.7 s Abnormal 9.1-12.0 [facility] Internal Medicine; [facility] Work Phone: Comment on above: PATIENT NOT FASTINGP ERFORMED BY: [facility]6370 [address] RoadD[address] [place] [id number] TSH ([id number])Ordered By: Undertonee m Bond Broker on 06-10-2021 TSH Qn 3.410 {uIU/mL} Normal 0.450-4.50 0 [facility]; [facility] Work Phone: Comment on above: PATIENT NOT FASTINGP ERFORMED BY: [facility]6370 [address] RoadD[address] [place] [id number] PT (PROTHROMBIN TIME) ([id number] )Ordered By: Teresita Ruiz on 04-26-2021 PT (PROTHROMBIN TIME) (24803) [facility]; [facility] Work Phone: Comment on above: PERFORMED BY: [facility] Htvnns9885 So RoadD[address] [place] [id number] PT (PROTHROMBIN TIME) ([id number] )Ordered By: Teresita Ruiz on 04-24-2021 PT (PROTHROMBIN TIME) ([id number]) [facility]; [facility] Work Phone: Comment on above: PERFORMED BY: [facility] Fasjbc1285 So RoadDublin [place] [id number] PT (PROTHROMBIN TIME) (52305 )Ordered By: Teresita Joseph on 03-13-2021 PT (PROTHROMBIN TIME) (10224) [facility]; [facility] Work Phone: Comment on above: PERFORMED BY: [facility] Efxyre6146 [address] RoadD[address] [place] [id number] PT (PROTHROMBIN TIME) (66766) [facility]; [facility] Work Phone: Comment on above: PERFORMED BY: [facility] Xiudqb8359 So RoadDublin [place] [id number] PT (PROTHROMBIN TIME) (73451 )Ordered By: Teresita Ruiz on 03-11-2021 PT (PROTHROMBIN TIME) (31217) [facility]; [facility] Work Phone: Comment on above: PERFORMED BY: [employer]6[address] RoadD[address] [place] [id number] PT (PROTHROMBIN TIME) (21202) [facility]; [facility] Work Phone: Comment on above: PERFORMED BY: [facility] Hpyfnb7043 So RoadD[address] [place] [id number] PT (PROTHROMBIN TIME) (59957 )Ordered By: Bottling Attendant on 03-05-2021 INR Coag (PPP) [Relative time] 2.5 {INR} Abnormal 0.9-1.2 [facility]; [facility] Work Phone: Comment on above: Reference interval i s for non-anticoagulated patients. . Suggested INR therapeutic range for Vitamin K antagonist therapy: Standard Dose (moderate intensity therapeutic range): 2.0 - 3.0 Higher intensity therapeutic range 2.5 - 3.5 PATIENT NOT FASTINGP ERFORMED BY: [facility]6370 [address] RoadD[address] [place] [id number] PT Coag (PPP) [Time] 25.2 s Abnormal 9.1-12.[address] [facility]; [facility] Work Phone: Comment on above: PATIENT NOT FASTINGP ERFORMED BY: [employer]6370 [address] RoadD[address] [place] [id number] PT (PROTHROMBIN TIME) ([id number] )Ordered By: Teresita Ruiz on 03-05-2021 PT (PROTHROMBIN TIME) ([id number]) [facility]; [facility] Work Phone: Comment on above: PERFORMED BY: [facility] Mariangel Dssvsk4848 So RoadDublin [place] [id number] PT (PROTHROMBIN TIME) (10116 )Ordered By: Teresita Ruiz on 03-01-2021 PT Coag (PPP) [Time] Comp rehensive Internal Medicine; [facility] Work Phone: Comment on above: PERFORMED BY: [facility] Mariangel Tkyssd2996 So RoadDublin [place] [id number] Blood Glucose , Office ([phone])Ordered By: Dante Salmon on 02-27-2021 Glucose Glucometer (BldC) [Moles/Vol] 151 1 Normal [facility]; [facility] Work Phone: CALCIFEDIOL ([phone])Ordered B y: Bottling Attendant on 02-27-2021 25-Hydroxyvitamin D2+25-Hydroxyvitamin D3 [Mass/Vol] 60.3 ng/mL Normal 30.0-100.0 [facility]; [facility] Work Phone: Comment on above: Vitamin D deficiency has been defined by the [place] [employer] and an Endocrine Society practice guideline as alevel of serum 25-OH vitamin D less than 20 ng/mL (1,2).The Endocrine Society went on to further define vitamin Dinsufficiency as a level between 21 and 29 ng/mL (2).1. IOM ([place] [employer]). 2010. Dietary reference intakes for calcium and D. [place]: The National Academies Press.2. Joe MF, Norma NC, Santy-Esau LOCKHART, et al. Evaluation, treatment, and prevention of vitamin D deficiency: an Endocrine Society clinical practice guideline. JCEM. 2010; 96(7):1911-30. PATIENT NOT FASTINGP ERFORMED BY: Okeyko [facility] Vwuwfw4180 So RoadDublin [place] [id number] CBC, Platelets & Auto Diff ( [id number])Ordered By: Bottling Attendant on 02-27-2021 Basophils (Bld) [#/Vol] 0.1 {x10E3/uL} Normal 0.0-0.2 [facility]; [facility] Work Phone: Comment on above: PATIENT NOT FASTINGP ERFORMED BY: RAOUL Cowan6370 So [facility] [place] [id number] Basophils (Bld) [#/Vol] 0.1 10*3/uL Normal 0.0-0.2 [facility]; [facility] Work Phone: Comment on above: PATIENT NOT FASTINGP ERFORMED BY: RAOUL Cuevalin6370 So [facility] [place] [id number] Basophils/100 WBC (Bld) 1 % Normal [facility]; [facility] Work Phone: Comment on above: PATIENT NOT FASTINGP ERFORMED BY: RAOUL Beatrice Cuevalin6370 [facility] [id number] Eosinophils (Bld) [#/Vol] 0.3 {x10E3/uL} Normal 0.0-0.4 [facility]; [facility] Work Phone: Comment on above: PATIENT NOT FASTINGP ERFORMED BY: RAOUL Beatrice Cowan6370 [facility] [id number] Eosinophils (Bld) [#/Vol] 0.3 10*3/uL Normal 0.0-0.4 [facility]; [facility] Work Phone: Comment on above: PATIENT NOT FASTINGP ERFORMED BY: RAOUL Cuevalin6370 So [facility] [id number] Eosinophils/100 WBC (Bld) 3 % Normal [facility]; [facility] Work Phone: Comment on above: PATIENT NOT FASTINGP ERFORMED BY: RAOUL Cuevalin6370 So [facility] [id number] Erythrocyte distribution width (RBC) [Ratio] 12.7 % Normal 11.7-15.4 [facility]; [facility] Work Phone: Comment on above: PATIENT NOT FASTINGP ERFORMED BY: RAOUL Beatrice Cuevalin6370 So [facility] [place] [id number] Hematocrit (Bld) [Volume fraction] 40.5 % Normal 34.0-46.6 [facility]; [facility] Work Phone: Comment on above: PATIENT NOT FASTINGP ERFORMED BY: RAOUL [facility] Leuykq4934 So RoadUnc Healthin [place] [id number] Hemoglobin (Bld) [Mass/Vol] 13.4 g/dL Normal 11.1-15.9 [facility]; [facility] Work Phone: Comment on above: PATIENT NOT FASTINGP ERFORMED BY: [facility] Nddnlg5489 So RoadUnc Healthin [place] [id number] Immature granulocytes (Bld) [#/Vol] 0.0 {x10E3/uL} Normal 0.0-0.1 [facility]; [facility] Work Phone: Comment on above: PATIENT NOT FASTINGP ERFORMED BY: [facility] Ooqdwc6006 So RoadUnc Healthin [place] [id number] Immature granulocytes (Bld) [#/Vol] 0.0 10*3/uL Normal 0.0-0.1 [facility]; [facility] Work Phone: Comment on above: PATIENT NOT FASTINGP ERFORMED BY: [facility] Tfdcle1610 So RoadDuin [place] [id number] Immature granulocytes/100 WBC (Bld) 0 % Normal [facility]; [facility] Work Phone: Comment on above: PATIENT NOT FASTINGP ERFORMED BY: [facility] Wtimit3697 So RoadUnc Healthin [place] [id number] Lymphocytes (Bld) [#/Vol] 1.4 {x10E3/uL} Normal 0.7-3.1 [facility]; [facility] Work Phone: Comment on above: PATIENT NOT FASTINGP ERFORMED BY: CB [facility] Bfkyqh2404 So RoadDublin [place] [id number] Lymphocytes (Bld) [#/Vol] 1.4 10*3/uL Normal 0.7-3.1 [facility]; [facility] Work Phone: Comment on above: PATIENT NOT FASTINGP ERFORMED BY: RAOUL LabCojoe CowanSapmps3219 So RoadDublin [place] [id number] Lymphocytes/100 WBC (Bld) 16 % Normal [facility]; [facility] Work Phone: Comment on above: PATIENT NOT FASTINGP ERFORMED BY: CB [facility] Aitqnx7747 So RoadDublin [place] [id number] MCH (RBC) [Entitic mass] 29.1 pg Normal 26.6-33.0 [facility]; [facility] Work Phone: Comment on above: PATIENT NOT FASTINGP ERFORMED BY: RAOUL [facility] Iamqey5901 So RoadDublin [place] [id number] MCHC (RBC) [Mass/Vol] 33.1 g/dL Normal 31.5-35.7 [facility] prehensive Internal Medicine; [facility] Work Phone: Comment on above: PATIENT NOT FASTINGP ERFORMED BY: RAOUL [facility] Tpanyu3446 So RoadDublin [place] [id number] MCV (RBC) [Entitic vol] 88 fL Normal 79-97 [facility]; [facility] Work Phone: Comment on above: PATIENT NOT FASTINGP ERFORMED BY: RAOUL [facility] Ggvkdh5094 So RoadDublin [place] [id number] Monocytes (Bld) [#/Vol] 0.9 {x10E3/uL} Normal 0.1-0.9 [facility]; [facility] Work Phone: Comment on above: PATIENT NOT FASTINGP ERFORMED BY: CB [facility] Wawpgi9160 So RoadDublin [place] [id number] Monocytes (Bld) [#/Vol] 0.9 10*3/uL Normal 0.1-0.9 [facility]; [facility] Work Phone: Comment on above: PATIENT NOT FASTINGP ERFORMED BY: CB [facility] Xjsyxk0459 So RoadDublin [place] [id number] Monocytes/100 WBC (Bld) 11 % Normal [facility]; [facility] Work Phone: Comment on above: PATIENT NOT FASTINGP ERFORMED BY: RAOUL Cowan6370 [address] RoadD[address] [place] [id number] Neutrophils (Bld) [#/Vol] 5.7 {x10E3/uL} Normal 1.4-7.0 [facility]; [facility] Work Phone: Comment on above: PATIENT NOT FASTINGP ERFORMED BY: CB [facility] Omlsaw3891 So RoadDublin [place] [id number] Neutrophils (Bld) [#/Vol] 5.7 10*3/uL Normal 1.4-7.0 [facility]; [facility] Work Phone: Comment on above: PATIENT NOT FASTINGP ERFORMED BY: RAOUL Beatrice Cowan6370 [address] RoadD[address] [place] [id number] Neutrophils/100 WBC (Bld) 69 % Normal [facility]; [facility] Work Phone: Comment on above: PATIENT NOT FASTINGP ERFORMED BY: RAOUL [facility] Bpdktv6011 So RoadDublin [place] [id number] Platelets (Bld) [#/Vol] 193 {x10E3/uL} Normal 150-450 [facility]; [facility] Work Phone: Comment on above: PATIENT NOT FASTINGP ERFORMED BY: RAOUL [facility] Qegcrm0137 So RoadDublin [place] [id number] Platelets (Bld) [#/Vol] 193 10*3/uL Normal 150-450 [facility]; [facility] Work Phone: Comment on above: PATIENT NOT FASTINGP ERFORMED BY: RAOUL [facility] Llsgqx1790 So RoadDublin [place] [id number] RBC (Bld) [#/Vol] 4.61 {x10E6/uL} Normal 3.77-5.28 [facility]; [facility] Work Phone: Comment on above: PATIENT NOT FASTINGP ERFORMED BY: RAOUL [facility] Qyleaa8571 So RoadDublin [place] [id number] RBC (Bld) [#/Vol] 4.61 10*6/uL Normal 3.77-5.28 [facility] Internal Medicine; [facility] Work Phone: Comment on above: PATIENT NOT FASTINGP ERFORMED BY: CB [facility] Emkljl8254 So RoadDublin [place] [id number] WBC (Bld) [#/Vol] 8.4 {x10E3/uL} Normal 3.4-10.8 [facility] Internal Medicine; [facility] Work Phone: Comment on above: PATIENT NOT FASTINGP ERFORMED BY: CB [facility] Osaach8[address] So RoadDublin [place] [id number] WBC (Bld) [#/Vol] 8.4 10*3/uL Normal 3.4-10.8 [facility] Internal Medicine; [facility] Work Phone: Comment on above: PATIENT NOT FASTINGP ERFORMED BY: CB [facility] Trisym0021 So RoadDublin [place] [id number] HgA1C , Office ([id number])Ordere d By: Dante Salmon on 02-27-2021 HbA1c (Bld) [Mass fraction] 8.5 % Abnormal 4.6 - 7.1 [facility] Internal Medicine; [facility] Work Phone: Metabolic Panel, Comprehensi ve (60109)Ordered By: Bottling Attendant on 02-27-2021 Albumin [Mass/Vol] 4.1 g/dL Normal 3.7-4.7 [facility] Internal Medicine; [facility] Work Phone: Comment on above: PATIENT NOT FASTINGP ERFORMED BY: CB [facility] Ypprvv4449 [address] RoadDublin [place] [id number] Albumin/Globulin [Mass ratio] 1.4 {ratio} Normal 1.2-2.2 [facility] Internal Medicine; [facility] Work Phone: Comment on above: PATIENT NOT FASTINGP ERFORMED BY: CB [facility] Vtqldj6842 So RoadDublin [place] [id number] ALP [Catalytic activity/Vol] 77 [iU]/L Normal 39-117 [facility]; [facility] Work Phone: Comment on above: PATIENT NOT FASTINGP ERFORMED BY: RAOUL [facility] Daxgpx7246 [address] RoadDublin [place] [id number] ALP [Catalytic activity/Vol] 77 U/L Normal 39-117 [facility]; [facility] Work Phone: Comment on above: PATIENT NOT FASTINGP ERFORMED BY: CB [facility] Kbogsa5340 So RoadDublin [place] [id number] ALT [Catalytic activity/Vol] 15 [iU]/L Normal 0-32 [facility]; [facility] Work Phone: Comment on above: PATIENT NOT FASTINGP ERFORMED BY: CB [facility] Uenmqx0484 So RoadDublin [place] [id number] ALT [Catalytic activity/Vol] 15 U/L Normal 0-32 [facility]; [facility] Work Phone: Comment on above: PATIENT NOT FASTINGP ERFORMED BY: CB [facility] Pevlvm8218 So RoadDublin [place] [id number] AST [Catalytic activity/Vol] 18 [iU]/L Normal 0-40 [facility]; [facility] Work Phone: Comment on above: PATIENT NOT FASTINGP ERFORMED BY: CB [facility] Owkrbm8446 So RoadDublin [place] [id number] AST [Catalytic activity/Vol] 18 U/L Normal 0-40 [facility]; [facility] Work Phone: Comment on above: PATIENT NOT FASTINGP ERFORMED BY: CB [facility] Fxcwco0929 So RoadDublin [place] [id number] Bilirubin [Mass/Vol] 1.7 mg/dL Abnormal 0.0-1.2 [facility]; [facility] Work Phone: Comment on above: PATIENT NOT FASTINGP ERFORMED BY: CB [facility] Qzxngk6408 [address] RoadDublin [place] [id number] Calcium [Mass/Vol] 9.3 mg/dL Normal 8.7-10.3 [facility] Internal Medicine; [facility] Work Phone: Comment on above: PATIENT NOT FASTINGP ERFORMED BY: CB [facility] Oncifu37[address] RoadDublin [place] [id number] Chloride [Moles/Vol] 107 mmol/L Abnormal 96-106 [facility] rehensive Internal Medicine; [facility] Work Phone: Comment on above: PATIENT NOT FASTINGP ERFORMED BY: CB [facility] Obnqrs1235 [address] RoadDublin [place] [id number] CO2 [Moles/Vol] 25 mmol/L Normal 20-29 [facility] Internal Medicine; [facility] Work Phone: Comment on above: PATIENT NOT FASTINGP ERFORMED BY: CB [facility] Unyixf3148 So RoadDublin [place] [id number] Creatinine [Mass/Vol] 1.02 mg/dL Abnormal 0.57-1.00 [facility]; [facility] Work Phone: Comment on above: PATIENT NOT FASTINGP ERFORMED BY: CB [facility] Euvevj6515 So RoadDublin [place] [id number] GFR/1.73 sq M predicted among blacks CKD-EPI (S/P/Bld) [Vol rate/Area] 60 mL/min/1.73 Normal [facility]; [facility] Work Phone: Comment on above: PATIENT NOT FASTINGP ERFORMED BY: CB [facility] Lortwc4785 So RoadDublin [place] [id number] GFR/1.73 sq M predicted among non-blacks CKD-EPI (S/P/Bld) [Vol rate/Area] 52 mL/min/1.73 Abnormal [facility]; [facility] Work Phone: Comment on above: PATIENT NOT FASTINGP ERFORMED BY: CB [facility] Esdles7[address] RoadDublin [place] [id number] Globulin (S) [Mass/Vol] 2.9 g/dL Normal 1.5-4.5 [facility]; [facility] Work Phone: Comment on above: PATIENT NOT FASTINGP ERFORMED BY: CB [facility] Ycyncx8843 So RoadDublin [place] [id number] Glucose [Mass/Vol] 138 mg/dL Abnormal 65-99 [facility] Internal Medicine; [facility] Work Phone: Comment on above: PATIENT NOT FASTINGP ERFORMED BY: CB [facility] Zmggxe5782 So RoadDublin [place] [id number] Potassium [Moles/Vol] 4.1 mmol/L Normal 3.5-5.2 [facility] Internal Medicine; [facility] Work Phone: Comment on above: PATIENT NOT FASTINGP ERFORMED BY: CB [facility] Htcjfk9118 [address] RoadDublin [place] [id number] Protein [Mass/Vol] 7.0 g/dL Normal 6.0-8.5 [facility] Internal Medicine; [facility] Work Phone: Comment on above: PATIENT NOT FASTINGP ERFORMED BY: CB [facility] Rmvvkh2497 So RoadDublin [place] [id number] Sodium [Moles/Vol] 144 mmol/L Normal 134-144 [facility] Internal Medicine; [facility] Work Phone: Comment on above: PATIENT NOT FASTINGP ERFORMED BY: CB [facility] Jmxfgt6834 So RoadDublin [place] [id number] Urea nitrogen [Mass/Vol] 21 mg/dL Normal 8-27 [facility] Internal Medicine; [facility] Work Phone: Comment on above: PATIENT NOT FASTINGP ERFORMED BY: CB [facility] Twxmjd0084 So RoadDublin [place] [id number] Urea nitrogen/Creatinine [Mass ratio] 21 mg/mg Normal 12-28 [facility] Internal Medicine; [facility] Work Phone: Comment on above: PATIENT NOT FASTINGP ERFORMED BY: CB [facility] Eerffo16[address] RoadDublin [place] [id number] PT (PROTHROMBIN TIME) ([id number] )Ordered By: Teresita Ruiz on 02-27-2021 PT Coag (PPP) [Time] Comp rehensive Internal Medicine; [facility] Work Phone: Comment on above: PERFORMED BY: RAOUL [facility] Ndxiqe3821 So BlizuuDublin [place] [id number] PT (PROTHROMBIN TIME) ([id number] )Ordered By: Bottling Attendant on 02-27-2021 INR Coag (PPP) [Relative time] 1.6 {INR} Abnormal 0.9-1.2 [facility]; [facility] Work Phone: Comment on above: Reference interval i s for non-anticoagulated patients. . Suggested INR therapeutic range for Vitamin K antagonist therapy: Standard Dose (moderate intensity therapeutic range): 2.0 - 3.0 Higher intensity therapeutic range 2.5 - 3.5 PATIENT NOT FASTINGP ERFORMED BY: Okeyko [facility] Wmjvpe7005 So BlizuuDublin [place] [id number] PT Coag (PPP) [Time] 16.7 {sec} Abnormal 9.1-12.0 Comp rehensive Internal Medicine; [facility] Work Phone: Comment on above: PATIENT NOT FASTINGP ERFORMED BY: RAOUL [facility] Mijiku9027 So [employer]bl[employer] [place] [id number] PT Coag (PPP) [Time] 16.7 s Abnormal 9.1-12.0 [facility] rehensive Internal Medicine; [facility] Work Phone: Comment on above: PATIENT NOT FASTINGP ERFORMED BY: [facility] Pvmdfg0027 So BlizuuDublin [place] [id number] TSH (THYROID STIMULATING HOR GIOVANNA) ([id number])Ordered By: Bottling Attendant on 02-27-2021 TSH Qn 2.740 {uIU/mL} Normal 0.450-4.50 0 [facility]; [facility] Work Phone: Comment on above: PATIENT NOT FASTINGP ERFORMED BY: [facility] Ufkuzs9187 So BlizuuDublin [place] [id number] PT (PROTHROMBIN TIME) ([id number] )Ordered By: Teresita Ruiz on 02-11-2021 PT Coag (PPP) [Time] Comp rehensive Internal Medicine; [facility] Work Phone: Comment on above: PERFORMED BY: [facility] Totqcq6258 [address] RoadD[address] [place] [id number] PT (PROTHROMBIN TIME) ([id number] )Ordered By: Bottling Attendant on 02-11-2021 INR Coag (PPP) [Relative time] 1.4 {INR} Abnormal 0.9-1.2 [facility]; [facility] Work Phone: Comment on above: Reference interval i s for non-anticoagulated patients. . Suggested INR therapeutic range for Vitamin K antagonist therapy: Standard Dose (moderate intensity therapeutic range): 2.0 - 3.0 Higher intensity therapeutic range 2.5 - 3.5 PATIENT NOT FASTINGP ERFORMED BY: [facility]lin6[address] RoadDublin [place] [id number] PT Coag (PPP) [Time] 14.4 {sec} Abnormal 9.1-12.0 [facility] Internal Medicine; [facility] Work Phone: Comment on above: PATIENT NOT FASTINGP ERFORMED BY: [facility]Techlin6370 [address] RoadD[address] [place] [id number] PT Coag (PPP) [Time] 14.4 s Abnormal 9.1-12.0 [facility] Internal Medicine; [facility] Work Phone: Comment on above: PATIENT NOT FASTINGP ERFORMED BY: Its[employer]atonic6[address] RoadD[address] [place] [id number] PT (PROTHROMBIN TIME) ([id number] )Ordered By: Teresita Ruiz on 02-10-2021 PT Coag (PPP) [Time] [facility] rehens[facility] Internal Medicine; [facility] Work Phone: Comment on above: PERFORMED BY: [facility] Mwdcwm0618 So RoadDublin [place] [id number] PT (PROTHROMBIN TIME) ([id number] )Ordered By: Teresita Ruiz on 02-08-2021 PT Coag (PPP) [Time] Comp rehensive Internal Medicine; [facility] Work Phone: Comment on above: PERFORMED BY: [facility] Zlwpuf0992 [address] RoadD[address] [place] [id number] PT (PROTHROMBIN TIME) ([id number] )Ordered By: Bottling Attendant on 02-04-2021 INR Coag (PPP) [Relative time] 1.5 {INR} Abnormal 0.9-1.2 [facility]; [facility] Work Phone: Comment on above: Reference interval i s for non-anticoagulated patients. . Suggested INR therapeutic range for Vitamin K antagonist therapy: Standard Dose (moderate intensity therapeutic range): 2.0 - 3.0 Higher intensity therapeutic range 2.5 - 3.5 PATIENT NOT FASTINGP ERFORMED BY: [employer] Gfgaqy8[address] RoadDublin [place] [id number] PT Coag (PPP) [Time] 16.1 {sec} Abnormal 9.1-12.0 [facility] rehensive Internal Medicine; [facility] Work Phone: Comment on above: PATIENT NOT FASTINGP ERFORMED BY: [facility]lin6370 [address] RoadDublin [place] [id number] PT Coag (PPP) [Time] 16.1 s Abnormal 9.1-12.0 [facility] Medicine; [facility] Work Phone: Comment on above: PATIENT NOT FASTINGP ERFORMED BY: [facility]lin6370 [address] RoadD[address] [place] [id number] PT (PROTHROMBIN TIME) ([id number] )Ordered By: Teresita Ruiz on 01-14-2021 PT Coag (PPP) [Time] [facility] re[facility]ive Internal Medicine; [facility] Work Phone: Comment on above: PERFORMED BY: [facility] Boseni9696 So RoadDublin [place] [id number] PT Coag (PPP) [Time] [facility] re[facility] Internal Medicine; [facility] Work Phone: Comment on above: PERFORMED BY: [facility] Phohly3444 [address] RoadDublin [place] [id number] PT (PROTHROMBIN TIME) ([id number] )Ordered By: Teresita Ruiz on 01-09-2021 PT Coag (PPP) [Time] [facility] rehensive Internal Medicine; [facility] Work Phone: Comment on above: PERFORMED BY: O[facility] Iditkz4622 So [employer]bl[employer] [place] [id number] PT (PROTHROMBIN TIME) ([id number] )Ordered By: Bottling Attendant on 12-20-2020 INR Coag (PPP) [Relative time] 1.6 {INR} Abnormal 0.9-1.2 [facility]; [facility] Work Phone: Comment on above: Reference interval i s for non-anticoagulated patients. . Suggested INR therapeutic range for Vitamin K antagonist therapy: Standard Dose (moderate intensity therapeutic range): 2.0 - 3.0 Higher intensity therapeutic range 2.5 - 3.5 PATIENT NOT FASTINGP ERFORMED BY: [employer] Ensrzv1306 So [employer]ingbl[employer] [place] [id number] PT Coag (PPP) [Time] 16.4 {sec} Abnormal 9.1-12.0 [facility] rehensive Internal Medicine; [facility] Work Phone: Comment on above: PATIENT NOT FASTINGP ERFORMED BY: [facility] Ltexne8083 So [employer]ingbl[place] [id number] PT Coag (PPP) [Time] 16.4 s Abnormal 9.1-12.0 Comp rehensive Internal Medicine; [facility] Work Phone: Comment on above: PATIENT NOT FASTINGP ERFORMED BY: [facility] Pvpgia7320 So [employer]bl[employer] [place] [id number] C-DIFFICILE, STOOL ([id number])Or dered By: Bottling Attendant on 12-12-2020 C. difficile toxin A+B IA Ql (Stl) Negative Normal [facility]; [facility] Work Phone: Comment on above: PATIENT NOT FASTINGP ERFORMED BY: [facility] Brgcuj5778 So Enc[employer] Consultingin [place] [id number] Information: SRC:ST C. difficile toxin A+B IA Ql (Stl) Negative Normal [facility]; [facility] Work Phone: Comment on above: PATIENT NOT FASTINGP ERFORMED BY: [facility] Dpeqev1438 So Enc[employer] Consultingin [place] [id number] Information: SRC:ST Blood Glucose , Office ([phone])Ordered By: Marie Collado on 11-28-2020 Glucose Glucometer (BldC) [Moles/Vol] 216 1 Normal [facility]; [facility] Work Phone: Comment on above: 216 CBC, Platelets & Auto Diff ( 98917)Ordered By: Bottling Attendant on 11-28-2020 Basophils (Bld) [#/Vol] 0.1 {x10E3/uL} Normal 0.0-0.2 [facility]; [facility] Work Phone: Comment on above: PATIENT WAS FASTINGP ERFORMED BY: CB [facility] Tjfwdx4103 So RoadDublin [place] [id number] Basophils (Bld) [#/Vol] 0.1 10*3/uL Normal 0.0-0.2 [facility]; [facility] Work Phone: Comment on above: PATIENT WAS FASTINGP ERFORMED BY: CB [facility] Nnwjjc4522 So RoadDublin [place] [id number] Basophils/100 WBC (Bld) 1 % Normal [facility]; [facility] Work Phone: Comment on above: PATIENT WAS FASTINGP ERFORMED BY: CB [facility] Nyhpvv6033 So RoadDublin [place] [id number] Eosinophils (Bld) [#/Vol] 0.2 {x10E3/uL} Normal 0.0-0.4 [facility]; [facility] Work Phone: Comment on above: PATIENT WAS FASTINGP ERFORMED BY: CB [facility] Yfkykr6991 [address] RoadDublin [place] [id number] Eosinophils (Bld) [#/Vol] 0.2 10*3/uL Normal 0.0-0.4 [facility]; [facility] Work Phone: Comment on above: PATIENT WAS FASTINGP ERFORMED BY: CB [facility] Ikkddj5561 So RoadDublin [place] [id number] Eosinophils/100 WBC (Bld) 3 % Normal [facility]; [facility] Work Phone: Comment on above: PATIENT WAS FASTINGP ERFORMED BY: RAOUL [facility] Tbeedk1697 So [facility] [place] [id number] Erythrocyte distribution width (RBC) [Ratio] 13.1 % Normal 11.7-15.4 [facility]; [facility] Work Phone: Comment on above: PATIENT WAS FASTINGP ERFORMED BY: [facility] Yjxgov3324 So RoadUnc Healthin [place] [id number] Hematocrit (Bld) [Volume fraction] 40.2 % Normal 34.0-46.6 [facility]; [facility] Work Phone: Comment on above: PATIENT WAS FASTINGP ERFORMED BY: [facility] Ualwud9319 So [facility] [id number] Hemoglobin (Bld) [Mass/Vol] 13.5 g/dL Normal 11.1-15.9 [facility]; [facility] Work Phone: Comment on above: PATIENT WAS FASTINGP ERFORMED BY: [facility] Djunfk7069 So [facility]in [place] [id number] Immature granulocytes (Bld) [#/Vol] 0.0 {x10E3/uL} Normal 0.0-0.1 [facility]; [facility] Work Phone: Comment on above: PATIENT WAS FASTINGP ERFORMED BY: [facility] Sewakt3342 So [facility]in [place] [id number] Immature granulocytes (Bld) [#/Vol] 0.0 10*3/uL Normal 0.0-0.1 [facility]; [facility] Work Phone: Comment on above: PATIENT WAS FASTINGP ERFORMED BY: [facility] Noidbl5376 So RoadDublin [place] [id number] Immature granulocytes/100 WBC (Bld) 1 % Normal [facility]; [facility] Work Phone: Comment on above: PATIENT WAS FASTINGP ERFORMED BY: [facility] Znxgjq2615 So RoadDublin [place] [id number] Lymphocytes (Bld) [#/Vol] 1.5 {x10E3/uL} Normal 0.7-3.1 [facility]; [facility] Work Phone: Comment on above: PATIENT WAS FASTINGP ERFORMED BY: RAOUL LabCojoe CowanIoibum5275 So RoadDublin [place] [id number] Lymphocytes (Bld) [#/Vol] 1.5 10*3/uL Normal 0.7-3.1 [facility]; [facility] Work Phone: Comment on above: PATIENT WAS FASTINGP ERFORMED BY: RAOUL [facility] Wspqmt1121 So RoadDublin [place] [id number] Lymphocytes/100 WBC (Bld) 17 % Normal [facility]; [facility] Work Phone: Comment on above: PATIENT WAS FASTINGP ERFORMED BY: RAOUL [facility] Rhuqcl4140 So RoadDublin [place] [id number] MCH (RBC) [Entitic mass] 29.0 pg Normal 26.6-33.0 [facility]; [facility] Work Phone: Comment on above: PATIENT WAS FASTINGP ERFORMED BY: RAOUL [facility] Oeyidb0604 So RoadDublin [place] [id number] MCHC (RBC) [Mass/Vol] 33.6 g/dL Normal 31.5-35.7 [facility] prehensive Internal Medicine; [facility] Work Phone: Comment on above: PATIENT WAS FASTINGP ERFORMED BY: RAOUL [facility] Lmsjmg5471 So RoadDublin [place] [id number] MCV (RBC) [Entitic vol] 86 fL Normal 79-97 [facility]; [facility] Work Phone: Comment on above: PATIENT WAS FASTINGP ERFORMED BY: RAOUL [facility] Zkroxw3892 So RoadDublin [place] [id number] Monocytes (Bld) [#/Vol] 1.0 {x10E3/uL} Abnormal 0.1-0.9 [facility]; [facility] Work Phone: Comment on above: PATIENT WAS FASTINGP ERFORMED BY: [facility] Wlpzla3363 So RoadDublin [place] [id number] Monocytes (Bld) [#/Vol] 1.0 10*3/uL Abnormal 0.1-0.9 [facility]; [facility] Work Phone: Comment on above: PATIENT WAS FASTINGP ERFORMED BY: RAOUL Cowan6370 So [facility] [id number] Monocytes/100 WBC (Bld) 12 % Normal [facility]; [facility] Work Phone: Comment on above: PATIENT WAS FASTINGP ERFORMED BY: RAOUL [facility] Qlqvgz3304 So [facility] [id number] Neutrophils (Bld) [#/Vol] 5.8 {x10E3/uL} Normal 1.4-7.0 [facility]; [facility] Work Phone: Comment on above: PATIENT WAS FASTINGP ERFORMED BY: RAOUL [facility] Ehmigu7674 So [facility] [id number] Neutrophils (Bld) [#/Vol] 5.8 10*3/uL Normal 1.4-7.0 [facility]; [facility] Work Phone: Comment on above: PATIENT WAS FASTINGP ERFORMED BY: RAOUL Beatrice Cowan6370 So [facility] [id number] Neutrophils/100 WBC (Bld) 66 % Normal [facility]; [facility] Work Phone: Comment on above: PATIENT WAS FASTINGP ERFORMED BY: RAOUL Arcelia Rdgatf7380 [facility] [id number] Platelets (Bld) [#/Vol] 182 {x10E3/uL} Normal 150-450 [facility]; [facility] Work Phone: Comment on above: PATIENT WAS FASTINGP ERFORMED BY: RAOUL Cowan6370 So [facility] [id number] Platelets (Bld) [#/Vol] 182 10*3/uL Normal 150-450 [facility]; [facility] Work Phone: Comment on above: PATIENT WAS FASTINGP ERFORMED BY: [facility]L [facility] Xekuvh7397 [facility] [id number] RBC (Bld) [#/Vol] 4.66 {x10E6/uL} Normal 3.77-5.28 [facility]; [facility] Work Phone: Comment on above: PATIENT WAS FASTINGP ERFORMED BY: RAOUL [facility] Mdnnag8065 So [facility]in [place] [id number] RBC (Bld) [#/Vol] 4.66 10*6/uL Normal 3.77-5.28 [facility]; [facility] Work Phone: Comment on above: PATIENT WAS FASTINGP ERFORMED BY: RA[facility]L [facility] Jiknus6498 [facility] [place] [id number] WBC (Bld) [#/Vol] 8.6 {x10E3/uL} Normal 3.4-10.8 [facility]; [facility] Work Phone: Comment on above: PATIENT WAS FASTINGP ERFORMED BY: RAOUL [facility] Stzjvu0277 [facility] [id number] WBC (Bld) [#/Vol] 8.6 10*3/uL Normal 3.4-10.8 [facility] Internal Medicine; [facility] Work Phone: Comment on above: PATIENT WAS FASTINGP ERFORMED BY: RAOUL [facility] Qpmnxl5795 [facility] [id number] HgA1C , Office ([id number])Ordere d By: Marie Collado on 11-28-2020 HbA1c (Bld) [Mass fraction] 7.8 % Abnormal 4.6 - 7.1 [facility]; [facility] Work Phone: Comment on above: 7.8 MAGNESIUM ([id number])Ordered By: Bottling Attendant on 11-28-2020 Magnesium [Mass/Vol] 1.9 mg/dL Normal 1.6-2.3 [facility]; [facility] Work Phone: Comment on above: PATIENT WAS FASTINGP ERFORMED BY: CB [facility] Gnkwbv9395 So RoadDublin [place] [id number] Metabolic Panel, Comprehensi ve ([id number])Ordered By: Bottling Attendant on 11-28-2020 Albumin [Mass/Vol] 4.4 g/dL Normal 3.7-4.7 [facility] Internal Medicine; [facility] Work Phone: Comment on above: PATIENT WAS FASTINGP ERFORMED BY: CB [facility] Qnjfba4042 So RoadDublin [place] [id number] Albumin/Globulin [Mass ratio] 1.7 {ratio} Normal 1.2-2.2 [facility]; [facility] Work Phone: Comment on above: PATIENT WAS FASTINGP ERFORMED BY: CB [facility] Ddvivo4666 So RoadDublin [place] [id number] ALP [Catalytic activity/Vol] 92 [iU]/L Normal 39-117 [facility]; [facility] Work Phone: Comment on above: PATIENT WAS FASTINGP ERFORMED BY: CB [facility] Hndqsr2567 So RoadDublin [place] [id number] ALP [Catalytic activity/Vol] 92 U/L Normal 39-117 [facility]; [facility] Work Phone: Comment on above: PATIENT WAS FASTINGP ERFORMED BY: CB [facility] Eazqyv8495 So RoadDublin [place] [id number] ALT [Catalytic activity/Vol] 15 [iU]/L Normal 0-32 [facility]; [facility] Work Phone: Comment on above: PATIENT WAS FASTINGP ERFORMED BY: CB [facility] Bcsqpv9202 So RoadDublin [place] [id number] ALT [Catalytic activity/Vol] 15 U/L Normal 0-32 [facility]; [facility] Work Phone: Comment on above: PATIENT WAS FASTINGP ERFORMED BY: CB [facility] Claapv6711 So RoadDublin [place] [id number] AST [Catalytic activity/Vol] 25 [iU]/L Normal 0-40 [facility]; [facility] Work Phone: Comment on above: PATIENT WAS FASTINGP ERFORMED BY: CB [facility] Dsrujq5211 So RoadDublin [place] [id number] AST [Catalytic activity/Vol] 25 U/L Normal 0-40 [facility]; [facility] Work Phone: Comment on above: PATIENT WAS FASTINGP ERFORMED BY: CB [facility] Anpwef2151 So RoadDublin [place] [id number] Bilirubin [Mass/Vol] 1.2 mg/dL Normal 0.0-1.2 [facility] rehensive Internal Medicine; [facility] Work Phone: Comment on above: PATIENT WAS FASTINGP ERFORMED BY: CB [facility] Ucbpmc7453 So RoadDublin [place] [id number] Calcium [Mass/Vol] 9.3 mg/dL Normal 8.7-10.3 [facility] Internal Medicine; [facility] Work Phone: Comment on above: PATIENT WAS FASTINGP ERFORMED BY: CB [facility] Hexofr4405 So RoadDublin [place] [id number] Chloride [Moles/Vol] 107 mmol/L Abnormal 96-106 [facility] rehensive Internal Medicine; [facility] Work Phone: Comment on above: PATIENT WAS FASTINGP ERFORMED BY: CB [facility] Szswfz1000 So RoadDublin [place] [id number] CO2 [Moles/Vol] 22 mmol/L Normal 20-29 [facility] Internal Medicine; [facility] Work Phone: Comment on above: PATIENT WAS FASTINGP ERFORMED BY: CB [facility] Qhmacm7087 So RoadDublin [place] [id number] Creatinine [Mass/Vol] 0.71 mg/dL Normal 0.57-1.00 [facility] Work Phone: Comment on above: PATIENT WAS FASTINGP ERFORMED BY: CB [facility] Xvencg5997 So RoadDublin [place] [id number] GFR/1.73 sq M predicted among blacks CKD-EPI (S/P/Bld) [Vol rate/Area] 94 mL/min/1.73 Normal [facility]; [facility] Work Phone: Comment on above: PATIENT WAS FASTINGP ERFORMED BY: RAOUL [facility] Cavkue2830 So [facility]in [place] [id number] GFR/1.73 sq M predicted among non-blacks CKD-EPI (S/P/Bld) [Vol rate/Area] 82 mL/min/1.73 Normal [facility]; [facility] Work Phone: Comment on above: PATIENT WAS FASTINGP ERFORMED BY: RAOUL [facility] Vxetso8459 [facility] [id number] Globulin (S) [Mass/Vol] 2.6 g/dL Normal 1.5-4.5 [facility]; [facility] Work Phone: Comment on above: PATIENT WAS FASTINGP ERFORMED BY: [facility] Ghzoxn4804 [facility] [id number] Glucose [Mass/Vol] 186 mg/dL Abnormal 65-99 [facility] Internal Medicine; [facility] Work Phone: Comment on above: PATIENT WAS FASTINGP ERFORMED BY: RAOUL LabAshly Tfxnki7446 [facility] [id number] Potassium [Moles/Vol] 4.6 mmol/L Normal 3.5-5.2 [facility] prehensive Internal Medicine; [facility] Work Phone: Comment on above: PATIENT WAS FASTINGP ERFORMED BY: [facility]L [facility] Cejfqw2186 [facility] [id number] Protein [Mass/Vol] 7.0 g/dL Normal 6.0-8.5 [facility] Internal Medicine; [facility] Work Phone: Comment on above: PATIENT WAS FASTINGP ERFORMED BY: RAOUL [facility] Uxsqpt2113 [facility] [id number] Sodium [Moles/Vol] 142 mmol/L Normal 134-144 [facility]; [facility] Work Phone: Comment on above: PATIENT WAS FASTINGP ERFORMED BY: [facility] Vmbncy7666 So RoadDublin [place] [id number] Urea nitrogen [Mass/Vol] 29 mg/dL Abnormal 8- [facility]; [facility] Work Phone: Comment on above: PATIENT WAS FASTINGP ERFORMED BY: [facility] Pqtiuu7672 So RoadDublin [place] [id number] Urea nitrogen/Creatinine [Mass ratio] 41 mg/mg Abnormal 12 [facility]; [facility] Work Phone: Comment on above: PATIENT WAS FASTINGP ERFORMED BY: Okeyko [facility] Jrvboc7200 So RoadDublin [place] [id number] PT (PROTHROMBIN TIME) ([id number] )Ordered By: Teresita Ruiz on 11-28-2020 PT Coag (PPP) [Time] [facility] rehensive Internal Medicine; [facility] Work Phone: Comment on above: PERFORMED BY: [facility] Mariangel Eqekda6845 So RoadDublin [place] [id number] PT (PROTHROMBIN TIME) ([id number] )Ordered By: Bottling Attendant on 11-28-2020 INR Coag (PPP) [Relative time] 2.1 {INR} Abnormal 0.9-1.2 [facility]; [facility] Work Phone: Comment on above: Reference interval i s for non-anticoagulated patients. . Suggested INR therapeutic range for Vitamin K antagonist therapy: Standard Dose (moderate intensity therapeutic range): 2.0 - 3.0 Higher intensity therapeutic range 2.5 - 3.5 PATIENT WAS FASTINGP ERFORMED BY: [facility] Ubmdyd1081 So RoadDublin [place] [id number] PT Coag (PPP) [Time] 21.2 {sec} Abnormal 9.1-12.0 [facility] rehensive Internal Medicine; [facility] Work Phone: Comment on above: PATIENT WAS FASTINGP ERFORMED BY: [facility] Wnezjo9752 So RoadDublin [place] [id number] PT Coag (PPP) [Time] 21.2 s Abnormal 9.1-12.0 [facility] rehensive Internal Medicine; [facility] Work Phone: Comment on above: PATIENT WAS FASTINGP ERFORMED BY: ItsPlatonic6370 [address] [place] [id number] TSH (THYROID STIMULATING HOR GIOVANNA) ([id number])Ordered By: Bottling Attendant on 11-28-2020 TSH Qn 2.950 {uIU/mL} Normal 0.450-4.50 0 [facility]; [facility] Work Phone: Comment on above: PATIENT WAS FASTINGP ERFORMED BY: ItsPlatonic6[address] [place] [id number] PT (PROTHROMBIN TIME) ([id number] )Ordered By: Teresita Ruiz on 11-12-2020 PT Coag (PPP) [Time] [facility] rehensive Internal Medicine; [facility] Work Phone: Comment on above: PERFORMED BY: [employer]6[address] [place] [id number] PT (PROTHROMBIN TIME) ([id number] )Ordered By: Teresita Ruiz on 11-08-2020 PT Coag (PPP) [Time] [facility] rehensive Internal Medicine; [facility] Work Phone: Comment on above: PERFORMED BY: [employer]6[address] So [employer]in [place] [id number] 2018 Novel Coronavirus (COVI D-19), [place] (23907)Ordered By: Bottling Attendant on 11-06-2020 2019 Novel Coronavirus (COVID-19), [place] (65292) Detected Abnormal [facility]; [facility] Work Phone: Comment on above: Client Requested Fla gThis nucleic acid amplification test was developed and its performancecharacteristics determined by [employer]. Nucleic acidamplification tests include PCR and TMA. This test has not been FDAcleared or approved. This test has been authorized by FDA under anEmergency Use Authorization (EUA). This test is only authorized forthe duration of time the declaration that circumstances existjustifying the authorization of the emergency use of in vitrodiagnostic tests for detection of SARS-CoV-2 virus and/or diagnosisof COVID-19 infection under section 564(b)(1) of the Act, 21 U.S.C.360bbb-3(b) (1), unless the authorization is terminated or revokedsooner.When diagnostic testing is negative, the possibility of a falsenegative result should be considered in the context of a patient'srecent exposures and the presence of clinical signs and symptomsconsistent with COVID-19. An individual without symptoms of COVID-19and who is not shedding SARS-CoV-2 virus would expect to have anegative (not detected) result in this assay. PATIENT NOT FASTINGP ERFORMED BY: RAOUL [employer] Uslncs8649 [facility]Aff[facility] [id number] 2018 Novel Coronavirus (COVID-19), [place] (32104) Detected Abnormal [facility]; [facility] Work Phone: Comment on above: Client Requested Fla [facility] nucleic acid amplification test was developed and its performancecharacteristics determined by [employer]. Nucleic acidamplification tests include PCR and TMA. This test has not been FDAcleared or approved. This test has been authorized by FDA under anEmergency Use Authorization (EUA). This test is only authorized forthe duration of time the declaration that circumstances existjustifying the authorization of the emergency use of in vitrodiagnostic tests for detection of SARS-CoV-2 virus and/or diagnosisof COVID-19 infection under section 564(b)(1) of the Act, 21 U.S.C.360bbb-3(b) (1), unless the authorization is terminated or revokedsooner.When diagnostic testing is negative, the possibility of a falsenegative result should be considered in the context of a patient'srecent exposures and the presence of clinical signs and symptomsconsistent with COVID-19. An individual without symptoms of COVID-19and who is not shedding SARS-CoV-2 virus would expect to have anegative (not detected) result in this assay. PATIENT NOT FASTINGP ERFORMED BY: RAOUL [employer] Iqbzlu8597 So [facility] [facility] ConsultingAff[facility] [id number] PT (PROTHROMBIN TIME) ([id number] )Ordered By: Teresita Ruiz on 11-06-2020 PT Coag (PPP) [Time] [facility] rehensive Internal Medicine; [facility] Work Phone: Comment on above: PERFORMED BY: [employer] Idcsfx4140 So RoadDublin [place] [id number] PT Coag (PPP) [Time] [facility] rehensive Internal Medicine; [facility] Work Phone: Comment on above: PERFORMED BY: [employer] Mariangel Flituv3555 So RoadDublin [place] [id number] LIPID PANEL ([id number])Ordered B y: Bottling Attendant on 10-30-2020 Cholesterol [Mass/Vol] 130 mg/dL Normal 100-199 [facility]; [facility] Work Phone: Comment on above: Oct 30; PATIENT WAS FASTINGPERFORMED BY: Its[employer]6370 So RoadDublin [place] [id number] Cholesterol in HDL [Mass/Vol] 43 mg/dL Normal [facility]; [facility] Work Phone: Comment on above: Oct 30; PATIENT WAS FASTINGPERFORMED BY: [employer]6370 [address] RoadD[address] [place] [id number] Cholesterol in LDL/Cholesterol in HDL [Mass ratio] 1.6 {ratio} Normal 0.0-3.2 [facility]; [facility] Work Phone: Comment on above: LDL/HDL Ratio Men Wo men 1/2 Avg.Risk 1.0 1.5 Avg.Risk 3.6 3.2 2X Avg.Risk 6.2 5.0 3X Avg.Risk 8.0 6.1 Oct 30; PATIENT WAS FASTINGPERFORMED BY: [employer] Flqjem5614 So RoadDublin [place] [id number] Triglyceride [Mass/Vol] 101 mg/dL Normal 0-149 [facility]; [facility] Work Phone: Comment on above: Oct 30; PATIENT WAS FASTINGPERFORMED BY: [employer] Zzsojt0756 So RoadDublin [place] [id number] LIPID PANEL (70708) 19 mg/dL Normal 5-40 Compr ehensive Internal Medicine; [facility] Work Phone: Comment on above: Oct 30; PATIENT WAS FASTINGPERFORMED BY: CB [facility] Qkxhnz0032 So RoadD[address] [place] [id number] LIPID PANEL (80382) 68 mg/dL Normal 0-99 [facility]; [facility] Work Phone: Comment on above: Oct 30; PATIENT WAS FASTINGPERFORMED BY: CB [facility] Rdhdmx7759 So RoadDublin [place] [id number] LIPID PANEL (24583) 1.6 {ratio} Normal 0.0-3.2 [facility] Internal Medicine; [facility] Work Phone: Comment on above: LDL/HDL Ratio Men Wo men 1/2 Avg.Risk 1.0 1.5 Avg.Risk 3.6 3.2 2X Avg.Risk 6.2 5.0 3X Avg.Risk 8.0 6.1 Oct 30; PATIENT WAS FASTINGPERFORMED BY: CB [facility] Rkkdxj0357 So RoadDublin [place] [id number] Metabolic Panel, Comprehensi ve ([id number])Ordered By: Bottling Attendant on 10-30-2020 Albumin [Mass/Vol] 4.2 g/dL Normal 3.7-4.7 [facility] Internal Medicine; [facility] Work Phone: Comment on above: Oct 30; PATIENT WAS FASTINGPERFORMED BY: CB [facility] Leibnk8911 So BlizuuDublin [place] [id number] Albumin/Globulin [Mass ratio] 1.6 {ratio} Normal 1.2-2.2 [facility]; [facility] Work Phone: Comment on above: Oct 30; PATIENT WAS FASTINGPERFORMED BY: CB [facility] Wpnutn8604 So RoadDublin [place] [id number] ALP [Catalytic activity/Vol] 91 [iU]/L Normal 39-117 [facility]; [facility] Work Phone: Comment on above: Oct 30; PATIENT WAS FASTINGPERFORMED BY: CB [facility] Wubtaw4389 So RoadDublin [place] [id number] ALP [Catalytic activity/Vol] 91 U/L Normal 39-117 [facility]; [facility] Work Phone: Comment on above: Oct 30; PATIENT WAS FASTINGPERFORMED BY: CB [facility] Qzynhm2019 So RoadD[address] [place] [id number] ALT [Catalytic activity/Vol] 20 [iU]/L Normal 0-32 [facility]; [facility] Work Phone: Comment on above: Oct 30; PATIENT WAS FASTINGPERFORMED BY: CB [facility] Xhgkxa7860 So RoadDublin [place] [id number] ALT [Catalytic activity/Vol] 20 U/L Normal 0-32 [facility]; [facility] Work Phone: Comment on above: Oct 30; PATIENT WAS FASTINGPERFORMED BY: CB [facility] Wrwkli9592 So RoadDublin [place] [id number] AST [Catalytic activity/Vol] 27 [iU]/L Normal 0-40 [facility]; [facility] Work Phone: Comment on above: Oct 30; PATIENT WAS FASTINGPERFORMED BY: CB [facility] Xkfrsu9662 So RoadD[address] [place] [id number] AST [Catalytic activity/Vol] 27 U/L Normal 0-40 [facility]; [facility] Work Phone: Comment on above: Oct 30; PATIENT WAS FASTINGPERFORMED BY: CB [facility] Flmosw9267 So RoadD[address] [place] [id number] Bilirubin [Mass/Vol] 1.1 mg/dL Normal 0.0-1.2 Comp rehensive Internal Medicine; [facility] Work Phone: Comment on above: Oct 30; PATIENT WAS FASTINGPERFORMED BY: CB [facility] Mootuo8696 So RoadDublin [place] [id number] Calcium [Mass/Vol] 9.4 mg/dL Normal 8.7-10.3 [facility]; [facility] Work Phone: Comment on above: Oct 30; PATIENT WAS FASTINGPERFORMED BY: CB [facility] Couljo9054 [address] RoadD[address] [place] [id number] Chloride [Moles/Vol] 105 mmol/L Normal 96-106 [facility] rehensive Internal Medicine; [facility] Work Phone: Comment on above: Oct 30; PATIENT WAS FASTINGPERFORMED BY: CB [facility] Kyzbru0278 So RoadDublin [place] [id number] CO2 [Moles/Vol] 22 mmol/L Normal 20-29 [facility] Internal Medicine; [facility] Work Phone: Comment on above: Oct 30; PATIENT WAS FASTINGPERFORMED BY: CB [facility] Hhjxbe2024 So RoadDublin [place] [id number] Creatinine [Mass/Vol] 0.81 mg/dL Normal 0.57-1.00 [facility] Internal Medicine; [facility] Work Phone: Comment on above: Oct 30; PATIENT WAS FASTINGPERFORMED BY: CB [facility] Vqdsnb1739 So RoadDublin [place] [id number] GFR/1.73 sq M predicted among blacks CKD-EPI (S/P/Bld) [Vol rate/Area] 80 mL/min/1.73 Normal [facility]; [facility] Work Phone: Comment on above: Oct 30; PATIENT WAS FASTINGPERFORMED BY: CB [facility] Sjalio7973 So RoadDublin [place] [id number] GFR/1.73 sq M predicted among non-blacks CKD-EPI (S/P/Bld) [Vol rate/Area] 70 mL/min/1.73 Normal [facility]; [facility] Work Phone: Comment on above: Oct 30; PATIENT WAS FASTINGPERFORMED BY: CB [facility] Puqgdl8979 So RoadDublin [place] [id number] Globulin (S) [Mass/Vol] 2.7 g/dL Normal 1.5-4.5 [facility]; [facility] Work Phone: Comment on above: Oct 30; PATIENT WAS FASTINGPERFORMED BY: CB [facility] Nwhjyl6923 So RoadDublin [place] [id number] Glucose [Mass/Vol] 181 mg/dL Abnormal 65-99 [facility] Internal Medicine; [facility] Work Phone: Comment on above: Oct 30; PATIENT WAS FASTINGPERFORMED BY: CB [facility] Pkyilu5429 So RoadDublin [place] [id number] Potassium [Moles/Vol] 4.3 mmol/L Normal 3.5-5.2 [facility]; [facility] Work Phone: Comment on above: Oct 30; PATIENT WAS FASTINGPERFORMED BY: CB [facility] Ppfqgj6445 So RoadDublin [place] [id number] Protein [Mass/Vol] 6.9 g/dL Normal 6.0-8.5 [facility] Internal Medicine; [facility] Work Phone: Comment on above: Oct 30; PATIENT WAS FASTINGPERFORMED BY: CB [facility] Muhcci2747 So RoadDublin [place] [id number] Sodium [Moles/Vol] 142 mmol/L Normal 134-144 [facility] Internal Medicine; [facility] Work Phone: Comment on above: Oct 30; PATIENT WAS FASTINGPERFORMED BY: CB [facility] Mukiqk4406 So RoadDublin [place] [id number] Urea nitrogen [Mass/Vol] 26 mg/dL Normal 8-27 [facility] Internal Medicine; [facility] Work Phone: Comment on above: Oct 30; PATIENT WAS FASTINGPERFORMED BY: CB [facility] Ybhykc0713 So RoadDublin [place] [id number] Urea nitrogen/Creatinine [Mass ratio] 32 mg/mg Abnormal 12-28 [facility]; [facility] Work Phone: Comment on above: Oct 30; PATIENT WAS FASTINGPERFORMED BY: CB [facility] Pezdcc1355 So RoadDublin [place] [id number] PT (PROTHROMBIN TIME) ([id number] )Ordered By: Teresita Ruiz on 10-30-2020 PT Coag (PPP) [Time] [facility] Work Phone: Comment on above: PERFORMED BY: CB Lab Mariangel Dbhggj8890 So RoadDublin [place] [id number] PT (PROTHROMBIN TIME) ([id number] )Ordered By: Bottling Attendant on 10-30-2020 INR Coag (PPP) [Relative time] 2.1 {INR} Abnormal 0.9-1.2 [facility]; [facility] Work Phone: Comment on above: Reference interval i s for non-anticoagulated patients. . Suggested INR therapeutic range for Vitamin K antagonist therapy: Standard Dose (moderate intensity therapeutic range): 2.0 - 3.0 Higher intensity therapeutic range 2.5 - 3.5 Oct 30; PATIENT WAS FASTINGPERFORMED BY: RAOUL [facility] Dijluy5229 So RoadDublin [place] [id number] PT Coag (PPP) [Time] 21.4 {sec} Abnormal 9.1-12.0 Comp rehensive Internal Medicine; [facility] Work Phone: Comment on above: Oct 30; PATIENT WAS FASTINGPERFORMED BY: RAOUL [facility] Umdirb4759 So RoadDublin [place] [id number] PT Coag (PPP) [Time] 21.4 s Abnormal 9.1-12.0 [facility] rehensive Internal Medicine; [facility] Work Phone: Comment on above: Oct 30; PATIENT WAS FASTINGPERFORMED BY: [facility] Pfbwyr5480 So RoadDublin [place] [id number] TSH ([id number])Ordered By: Scarlet m Bond Broker on 10-30-2020 TSH Qn 4.510 {uIU/mL} Abnormal 0.450-4.50 0 [facility]; [facility] Work Phone: Comment on above: Oct 30; PATIENT WAS FASTINGPERFORMED BY: [facility] Omkkdi2032 So RoadDublin [place] [id number] PT (PROTHROMBIN TIME) ([id number] )Ordered By: Teresita Ruiz on 10-24-2020 PT Coag (PPP) [Time] Comp rehensive Internal Medicine; [facility] Work Phone: Comment on above: PERFORMED BY: RAOUL Lab Mariangel Khkuyr9625 So RoadDublin [place] [id number] PT (PROTHROMBIN TIME) ([id number] )Ordered By: Bottling Attendant on 10-24-2020 INR Coag (PPP) [Relative time] 2.1 {INR} Abnormal 0.9-1.2 [facility]; [facility] Work Phone: Comment on above: Reference interval i s for non-anticoagulated patients. . Suggested INR therapeutic range for Vitamin K antagonist therapy: Standard Dose (moderate intensity therapeutic range): 2.0 - 3.0 Higher intensity therapeutic range 2.5 - 3.5 PATIENT NOT FASTINGP ERFORMED BY: Okeyko [facility] Bzlqxn7371 So RoadDublin [place] [id number] PT Coag (PPP) [Time] 21.4 {sec} Abnormal 9.1-12.0 Comp rehensive Internal Medicine; [facility] Work Phone: Comment on above: PATIENT NOT FASTINGP ERFORMED BY: Okeyko LabTelespreerp Ockbxq2346 So RoadDublin [place] [id number] PT Coag (PPP) [Time] 21.4 s Abnormal 9.1-12.0 [facility] rehensive Internal Medicine; [facility] Work Phone: Comment on above: PATIENT NOT FASTINGP ERFORMED BY: Okeyko LabTelespreerp Hsgkoa1441 So RoadDublin [place] [id number] PT (PROTHROMBIN TIME) ([id number] )Ordered By: Teresita Ruiz on 10-16-2020 PT Coag (PPP) [Time] Comp rehensive Internal Medicine Work Phone: Comment on above: PERFORMED BY: [employer] Mariangel Teftwj0446 Os RoadDublin [place] [id number] PT Coag (PPP) [Time] Comp rehensive Internal Medicine Work Phone: Comment on above: PERFORMED BY: Okeyko [facility] Mariangel Dbgrgq6589 So RoadDublin [place] [id number] PT (PROTHROMBIN TIME) ([id number] )Ordered By: Bottling Attendant on 10-15-2020 INR Coag (PPP) [Relative time] 1.3 {INR} Abnormal 0.9-1.2 [facility] Work Phone: Comment on above: Reference interval i s for non-anticoagulated patients. . Suggested INR therapeutic range for Vitamin K antagonist therapy: Standard Dose (moderate intensity therapeutic range): 2.0 - 3.0 Higher intensity therapeutic range 2.5 - 3.5 PATIENT NOT FASTINGP ERFORMED BY: Okeyko [facility] Uwtvhn5996 So RoadDublin [place] [id number] PT Coag (PPP) [Time] 13.2 {sec} Abnormal 9.1-12.0 [facility] rehensive Internal Medicine Work Phone: Comment on above: PATIENT NOT FASTINGP ERFORMED BY: Okeyko LabTelespreerp Dzwhdb0289 So RoadDublin [place] [id number] PT Coag (PPP) [Time] 13.2 s Abnormal 9.1-12.0 [facility] rehensive Internal Medicine; [facility] Work Phone: Comment on above: PATIENT NOT FASTINGP ERFORMED BY: [employer] Kmxfpy9241 So RoadD[address] [place] [id number] PT (PROTHROMBIN TIME) ([id number] )Ordered By: Teresita Ruiz on 10-03-2020 PT Coag (PPP) [Time] Comp rehensive Internal Medicine Work Phone: Comment on above: PERFORMED BY: [employer] Yoiwdj6446 So RoadDublin [place] [id number] PT (PROTHROMBIN TIME) ([id number] )Ordered By: Teresita Ruiz on 09-17-2020 PT Coag (PPP) [Time] Comp rehensive Internal Medicine Work Phone: Comment on above: PERFORMED BY: [employer] Edcsbg9995 So RoadDublin [place] [id number] PT (PROTHROMBIN TIME) ([id number] )Ordered By: Bottling Attendant on 09-17-2020 INR Coag (PPP) [Relative time] 2.0 {INR} Abnormal 0.9-1.2 [facility] Work Phone: Comment on above: Reference interval i s for non-anticoagulated patients. . Suggested INR therapeutic range for Vitamin K antagonist therapy: Standard Dose (moderate intensity therapeutic range): 2.0 - 3.0 Higher intensity therapeutic range 2.5 - 3.5 PATIENT NOT FASTINGP ERFORMED BY: [employer] Kwgwam9310 So RoadDublin [place] [id number] PT Coag (PPP) [Time] 21.1 {sec} Abnormal 9.1-12.0 Comp rehensive Internal Medicine Work Phone: Comment on above: PATIENT NOT FASTINGP ERFORMED BY: RAOUL [facility] Hnyzfy4855 So RoadDublin [place] [id number] PT Coag (PPP) [Time] 21.1 s Abnormal 9.1-12.0 Comp rehensive Internal Medicine; [facility] Work Phone: Comment on above: PATIENT NOT FASTINGP ERFORMED BY: RAOUL [facility] Olofly9514 So RoadDublin [place] [id number] PT (PROTHROMBIN TIME) ([id number] )Ordered By: Bottling Attendant on 08-31-2020 INR Coag (PPP) [Relative time] 2.0 {INR} Abnormal 0.9-1.2 [facility] Work Phone: Comment on above: Reference interval i s for non-anticoagulated patients. . Suggested INR therapeutic range for Vitamin K antagonist therapy: Standard Dose (moderate intensity therapeutic range): 2.0 - 3.0 Higher intensity therapeutic range 2.5 - 3.5 Please note reference interval change PATIENT NOT FASTINGP ERFORMED BY: RAOUL Cuevalin6370 So RoadDublin [place] [id number] PT Coag (PPP) [Time] 20.3 {sec} Abnormal 9.1-12.0 [facility] Work Phone: Comment on above: Please note refere nce interval change PATIENT NOT FASTINGP ERFORMED BY: RAOUL [facility] Eqcieq9425 So RoadDublin [place] [id number] PT Coag (PPP) [Time] 20.3 s Abnormal 9.1-12.0 Comp rehensive Internal Medicine; [facility] Work Phone: Comment on above: Please note refere nce interval change PATIENT NOT FASTINGP ERFORMED BY: RAOUL [facility] Kmjmch4782 So RoadDublin [place] [id number] PT (PROTHROMBIN TIME) ([id number] )Ordered By: Teresita Ruiz on 08-22-2020 PT Coag (PPP) [Time] Comp rehensive Internal Medicine Work Phone: Comment on above: PERFORMED BY: [employer]6370 [address] RoadD[address] [place] [id number] PT (PROTHROMBIN TIME) ([id number] )Ordered By: Bottling Attendant on 08-22-2020 INR Coag (PPP) [Relative time] 1.6 {INR} Abnormal 0.9-1.2 [facility] Work Phone: Comment on above: Reference interval i s for non-anticoagulated patients. . Suggested INR therapeutic range for Vitamin K antagonist therapy: Standard Dose (moderate intensity therapeutic range): 2.0 - 3.0 Higher intensity therapeutic range 2.5 - 3.5 Please note reference interval change PATIENT NOT FASTINGP ERFORMED BY: ItsPlatonic6[address] So RoadDublin [place] [id number] PT Coag (PPP) [Time] 16.2 {sec} Abnormal 9.1-12.0 [facility] Work Phone: Comment on above: Please note refere nce interval change PATIENT NOT FASTINGP ERFORMED BY: ItsPlatonic6[address] RoadDublin [place] [id number] PT Coag (PPP) [Time] 16.2 s Abnormal 9.1-12.0 [facility]; [facility] Work Phone: Comment on above: Please note refere nce interval change PATIENT NOT FASTINGP ERFORMED BY: [facility]-Techlin6370 [address] RoadDublin [place] [id number] PT (PROTHROMBIN TIME) ([id number] )Ordered By: Teresita Ruiz on 08-15-2020 PT Coag (PPP) [Time] Comp re[facility] Work Phone: Comment on above: PERFORMED BY: [facility] Ztbjnc5356 So RoadDublin [place] [id number] PT (PROTHROMBIN TIME) ([id number] )Ordered By: Teresita Ruiz on 07-18-2020 PT Coag (PPP) [Time] [facility] Work Phone: Comment on above: PERFORMED BY: [facility] Rixuxm6501 So BlizuuDublin [place] [id number] PT Coag (PPP) [Time] [facility] Work Phone: Comment on above: PERFORMED BY: [facility] Ecgcdp2778 So BlizuuUnc Healthin [place] [id number] Blood Glucose , Office ([phone])Ordered By: Dante Cross on 07-16-2020 Glucose Glucometer (BldC) [Moles/Vol] 235 1 Normal [facility] Work Phone: CBC, Platelets & Auto Diff ( [id number])Ordered By: Bottling Attendant on 07-16-2020 Basophils (Bld) [#/Vol] 0.1 {x10E3/uL} Normal 0.0-0.2 [facility] Work Phone: Comment on above: PATIENT NOT FASTINGP ERFORMED BY: [facility] Yljane3479 So BlizuuUnc Healthin [place] [id number] Basophils (Bld) [#/Vol] 0.1 10*3/uL Normal 0.0-0.2 [facility]; [facility] Work Phone: Comment on above: PATIENT NOT FASTINGP ERFORMED BY: [facility] Igsxtk9806 So [employer] Consultingbl[facility] [place] [id number] Basophils/100 WBC (Bld) 1 % Normal [facility] Work Phone: Comment on above: PATIENT NOT FASTINGP ERFORMED BY: [facility] Wlkqpl4113 So BlizuuUnc Healthin [place] [id number] Eosinophils (Bld) [#/Vol] 0.2 {x10E3/uL} Normal 0.0-0.4 [facility] Work Phone: Comment on above: PATIENT NOT FASTINGP ERFORMED BY: [facility] Zyonkd9625 So [facility] [place] [id number] Eosinophils (Bld) [#/Vol] 0.2 10*3/uL Normal 0.0-0.4 [facility]; [facility] Work Phone: Comment on above: PATIENT NOT FASTINGP ERFORMED BY: RAOUL [facility] Ljmnvg9277 So RoadDublin [place] [id number] Eosinophils/100 WBC (Bld) 3 % Normal [facility] Work Phone: Comment on above: PATIENT NOT FASTINGP ERFORMED BY: CB [facility] Crnwdk9214 So RoadUnc Healthin [place] [id number] Erythrocyte distribution width (RBC) [Ratio] 13.5 % Normal 11.7-15.4 [facility] Work Phone: Comment on above: PATIENT NOT FASTINGP ERFORMED BY: CB [facility] Gmwutt1728 So RoadUnc Healthin [place] [id number] Hematocrit (Bld) [Volume fraction] 42.2 % Normal 34.0-46.6 [facility] Work Phone: Comment on above: PATIENT NOT FASTINGP ERFORMED BY: CB [facility] Uaihhc1925 So [facility] [id number] Hemoglobin (Bld) [Mass/Vol] 13.9 g/dL Normal 11.1-15.9 [facility] Work Phone: Comment on above: PATIENT NOT FASTINGP ERFORMED BY: CB [facility] Zvnrui7373 So Roadblin [place] [id number] Immature granulocytes (Bld) [#/Vol] 0.1 {x10E3/uL} Normal 0.0-0.1 [facility] Work Phone: Comment on above: PATIENT NOT FASTINGP ERFORMED BY: CB [facility] Scsxyx2407 So RoadDublin [place] [id number] Immature granulocytes (Bld) [#/Vol] 0.1 10*3/uL Normal 0.0-0.1 [facility]; [facility] Work Phone: Comment on above: PATIENT NOT FASTINGP ERFORMED BY: CB [facility] Sxnuht0955 So RoadDublin [place] [id number] Immature granulocytes/100 WBC (Bld) 1 % Normal [facility] Work Phone: Comment on above: PATIENT NOT FASTINGP ERFORMED BY: RAOUL [facility] Xeasos4289 So [facility] [place] [id number] Lymphocytes (Bld) [#/Vol] 1.4 {x10E3/uL} Normal 0.7-3.1 [facility] Work Phone: Comment on above: PATIENT NOT FASTINGP ERFORMED BY: [facility] Pitebj0146 So [facility]bl[facility] [place] [id number] Lymphocytes (Bld) [#/Vol] 1.4 10*3/uL Normal 0.7-3.1 [facility]; [facility] Work Phone: Comment on above: PATIENT NOT FASTINGP ERFORMED BY: [facility] Jsftop3783 So [facility]bl[facility] [place] [id number] Lymphocytes/100 WBC (Bld) 16 % Normal [facility] Work Phone: Comment on above: PATIENT NOT FASTINGP ERFORMED BY: [facility] Rpxlju6103 So [facility] [place] [id number] MCH (RBC) [Entitic mass] 29.8 pg Normal 26.6-33.0 [facility] Work Phone: Comment on above: PATIENT NOT FASTINGP ERFORMED BY: [facility] Haqgkv4840 So [facility]in [place] [id number] MCHC (RBC) [Mass/Vol] 32.9 g/dL Normal 31.5-35.7 [facility] Work Phone: Comment on above: PATIENT NOT FASTINGP ERFORMED BY: [facility] Vxaarb9734 So [facility]bl[facility] [place] [id number] MCV (RBC) [Entitic vol] 90 fL Normal 79-97 [facility] Work Phone: Comment on above: PATIENT NOT FASTINGP ERFORMED BY: [facility] Ayoeaa0142 So [facility] [place] [id number] Monocytes (Bld) [#/Vol] 0.9 {x10E3/uL} Normal 0.1-0.9 [facility] Work Phone: Comment on above: PATIENT NOT FASTINGP ERFORMED BY: CB [facility] Vywtyt7587 So RoadDublin [place] [id number] Monocytes (Bld) [#/Vol] 0.9 10*3/uL Normal 0.1-0.9 [facility]; [facility] Work Phone: Comment on above: PATIENT NOT FASTINGP ERFORMED BY: CB [facility] Chsdil2882 So RoadDublin [place] [id number] Monocytes/100 WBC (Bld) 10 % Normal [facility] Work Phone: Comment on above: PATIENT NOT FASTINGP ERFORMED BY: CB [facility] Nratus7488 So RoadDublin [place] [id number] Neutrophils (Bld) [#/Vol] 6.1 {x10E3/uL} Normal 1.4-7.0 [facility] Work Phone: Comment on above: PATIENT NOT FASTINGP ERFORMED BY: CB [facility] Zrqisa4809 So RoadDublin [place] [id number] Neutrophils (Bld) [#/Vol] 6.1 10*3/uL Normal 1.4-7.0 [facility]; [facility] Work Phone: Comment on above: PATIENT NOT FASTINGP ERFORMED BY: CB [facility] Vrlwnv4496 So RoadDublin [place] [id number] Neutrophils/100 WBC (Bld) 69 % Normal [facility] Work Phone: Comment on above: PATIENT NOT FASTINGP ERFORMED BY: CB [facility] Uccmxa4688 So RoadDublin [place] [id number] Platelets (Bld) [#/Vol] 181 {x10E3/uL} Normal 150-450 [facility] Work Phone: Comment on above: PATIENT NOT FASTINGP ERFORMED BY: CB [facility] Wkyfzb7890 So RoadDublin [place] [id number] Platelets (Bld) [#/Vol] 181 10*3/uL Normal 150-450 [facility]; [facility] Work Phone: Comment on above: PATIENT NOT FASTINGP ERFORMED BY: RAOUL [facility] Qjvnbu5622 So [facility]in [place] [id number] RBC (Bld) [#/Vol] 4.67 {x10E6/uL} Normal 3.77-5.28 [facility] Internal Medicine Work Phone: Comment on above: PATIENT NOT FASTINGP ERFORMED BY: CB [facility] Arcjgr6471 So Roadblin [place] [id number] RBC (Bld) [#/Vol] 4.67 10*6/uL Normal 3.77-5.28 [facility] Internal Medicine; [facility] Work Phone: Comment on above: PATIENT NOT FASTINGP ERFORMED BY: RAOUL [facility] Qpxoql0300 So [facility]bl[facility] [place] [id number] WBC (Bld) [#/Vol] 8.8 {x10E3/uL} Normal 3.4-10.8 [facility] Internal Medicine Work Phone: Comment on above: PATIENT NOT FASTINGP ERFORMED BY: RAOUL [facility] Osehwu9249 So [facility]in [place] [id number] WBC (Bld) [#/Vol] 8.8 10*3/uL Normal 3.4-10.8 [facility] Internal Medicine; [facility] Work Phone: Comment on above: PATIENT NOT FASTINGP ERFORMED BY: RAOUL [facility] Nkirwm8930 [facility] [id number] HgA1C , Office ([id number])Ordere d By: Dante Cross on 07-16-2020 HbA1c (Bld) [Mass fraction] 9.0 % Abnormal 4.6 - 7.1 [facility] Work Phone: Comment on above: 9.0 Metabolic Panel, Comprehensi ve ([id number])Ordered By: Bottling Attendant on 07-16-2020 Albumin [Mass/Vol] 4.2 g/dL Normal 3.7-4.7 [facility] Internal Medicine Work Phone: Comment on above: PATIENT NOT FASTINGP ERFORMED BY: CB [facility] Ittxuq6149 So RoadDublin [place] [id number] Albumin/Globulin [Mass ratio] 1.6 {ratio} Normal 1.2-2.2 [facility] Work Phone: Comment on above: PATIENT NOT FASTINGP ERFORMED BY: CB [facility] Fopdgw7904 So RoadDublin [place] [id number] ALP [Catalytic activity/Vol] 127 [iU]/L Abnormal 39-117 [facility] Work Phone: Comment on above: PATIENT NOT FASTINGP ERFORMED BY: CB [facility] Catuqi7675 So RoadDublin [place] [id number] ALP [Catalytic activity/Vol] 127 U/L Abnormal 39-117 [facility]; [facility] Work Phone: Comment on above: PATIENT NOT FASTINGP ERFORMED BY: [facility] Rrjrle2037 So RoadDublin [place] [id number] ALT [Catalytic activity/Vol] 18 [iU]/L Normal 0-32 [facility] Work Phone: Comment on above: PATIENT NOT FASTINGP ERFORMED BY: [facility] Vmseia8344 So RoadDublin [place] [id number] ALT [Catalytic activity/Vol] 18 U/L Normal 0-32 [facility]; [facility] Work Phone: Comment on above: PATIENT NOT FASTINGP ERFORMED BY: [facility] Bfkjqp6278 So RoadDublin [place] [id number] AST [Catalytic activity/Vol] 17 [iU]/L Normal 0-40 [facility] Work Phone: Comment on above: PATIENT NOT FASTINGP ERFORMED BY: CB [facility] Luzxmq3767 So RoadDublin [place] [id number] AST [Catalytic activity/Vol] 17 U/L Normal 0-40 [facility]; [facility] Work Phone: Comment on above: PATIENT NOT FASTINGP ERFORMED BY: [facility] Wruvxj4223 So RoadDublin [place] [id number] Bilirubin [Mass/Vol] 1.1 mg/dL Normal 0.0-1.2 [facility] Work Phone: Comment on above: PATIENT NOT FASTINGP ERFORMED BY: CB [facility] Zhikvq6028 So RoadDublin [place] [id number] Calcium [Mass/Vol] 9.8 mg/dL Normal 8.7-10.3 [facility] Internal Medicine Work Phone: Comment on above: PATIENT NOT FASTINGP ERFORMED BY: CB [facility] Casrei2079 So RoadDublin [place] [id number] Chloride [Moles/Vol] 102 mmol/L Normal 96-106 [facility] Work Phone: Comment on above: PATIENT NOT FASTINGP ERFORMED BY: CB [facility] Drnfjd9012 So RoadDublin [place] [id number] CO2 [Moles/Vol] 25 mmol/L Normal 20-29 [facility] Internal Medicine Work Phone: Comment on above: PATIENT NOT FASTINGP ERFORMED BY: CB [facility] Nbqyew6828 So RoadDublin [place] [id number] Creatinine [Mass/Vol] 0.88 mg/dL Normal 0.57-1.00 [facility] Internal Medicine Work Phone: Comment on above: PATIENT NOT FASTINGP ERFORMED BY: CB [facility] Rlsfdn7753 So RoadDublin [place] [id number] GFR/1.73 sq M predicted among blacks CKD-EPI (S/P/Bld) [Vol rate/Area] 73 mL/min/1.73 Normal [facility] Work Phone: Comment on above: PATIENT NOT FASTINGP ERFORMED BY: CB [facility] Amzhzj7394 So RoadDublin [place] [id number] GFR/1.73 sq M predicted among non-blacks CKD-EPI (S/P/Bld) [Vol rate/Area] 63 mL/min/1.73 Normal [facility] Work Phone: Comment on above: PATIENT NOT FASTINGP ERFORMED BY: CB [facility] Bbnban2274 So RoadDublin [place] [id number] Globulin (S) [Mass/Vol] 2.7 g/dL Normal 1.5-4.5 [facility] Internal Medicine Work Phone: Comment on above: PATIENT NOT FASTINGP ERFORMED BY: CB [facility] Ukvpso4790 So RoadDublin [place] [id number] Glucose [Mass/Vol] 272 mg/dL Abnormal 65-99 [facility] Internal Medicine Work Phone: Comment on above: PATIENT NOT FASTINGP ERFORMED BY: CB [facility] Eznkhl7408 So RoadDublin [place] [id number] Potassium [Moles/Vol] 4.6 mmol/L Normal 3.5-5.2 [facility] Internal Medicine Work Phone: Comment on above: PATIENT NOT FASTINGP ERFORMED BY: RAOUL [facility] Nixmza6554 So RoadDublin [place] [id number] Protein [Mass/Vol] 6.9 g/dL Normal 6.0-8.5 [facility] Internal Medicine Work Phone: Comment on above: PATIENT NOT FASTINGP ERFORMED BY: CB [facility] Ptncoz2301 So RoadDublin [place] [id number] Sodium [Moles/Vol] 144 mmol/L Normal 134-144 [facility] Internal Medicine Work Phone: Comment on above: PATIENT NOT FASTINGP ERFORMED BY: CB [facility] Qrxxqb9037 So RoadDublin [place] [id number] Urea nitrogen [Mass/Vol] 31 mg/dL Abnormal 8- [facility] Internal Medicine Work Phone: Comment on above: PATIENT NOT FASTINGP ERFORMED BY: CB [facility] Scqwfw1079 So RoadD[address] [place] [id number] Urea nitrogen/Creatinine [Mass ratio] 35 mg/mg Abnormal 12- [facility] Internal Medicine Work Phone: Comment on above: PATIENT NOT FASTINGP ERFORMED BY: CB [facility] Ebhfss6273 So RoadDublin [place] [id number] PT (PROTHROMBIN TIME) ([id number] )Ordered By: Teresita Ruiz on 07-16-2020 PT Coag (PPP) [Time] Comp rehensive Internal Medicine Work Phone: Comment on above: PERFORMED BY: [facility]L [facility] Tkfigc9094 So RoadD[address] [place] [id number] PT (PROTHROMBIN TIME) ([id number] )Ordered By: Bottling Attendant on 07-16-2020 INR Coag (PPP) [Relative time] 2.0 {INR} Abnormal 0.8-1.2 [facility] Work Phone: Comment on above: Reference interval i s for non-anticoagulated patients. . Suggested INR therapeutic range for Vitamin K antagonist therapy: Standard Dose (moderate intensity therapeutic range): 2.0 - 3.0 Higher intensity therapeutic range 2.5 - 3.5 PATIENT NOT FASTINGP ERFORMED BY: RAOUL [facility] Fsxkbv2465 So RoadDublin [place] [id number] PT Coag (PPP) [Time] 19.5 {sec} Abnormal 9.1-12.0 [facility] Work Phone: Comment on above: PATIENT NOT FASTINGP ERFORMED BY: O[facility] Tseamp6080 So RoadDublin [place] [id number] PT Coag (PPP) [Time] 19.5 s Abnormal 9.1-12.0 Comp [facility]; [facility] Work Phone: Comment on above: PATIENT NOT FASTINGP ERFORMED BY: Okeyko [facility] Zbkihh0336 So RoadDublin [place] [id number] TSH ([id number])Ordered By: Syste m Bond Broker on 07-16-2020 TSH Qn 2.110 {uIU/mL} Normal 0.450-4.50 0 [facility] Work Phone: Comment on above: PATIENT NOT FASTINGP ERFORMED BY: O[facility] Gjyykc4282 So RoadDublin [place] [id number] PT (PROTHROMBIN TIME) ([id number] )Ordered By: Teresita Ruiz on 07-04-2020 PT Coag (PPP) [Time] Comp rehensive [facility] Medicine Work Phone: Comment on above: PERFORMED BY: [facility] Cgtfrm0582 So RoadDublin [place] [id number] PT (PROTHROMBIN TIME) ([id number] )Ordered By: Teresita Ruiz on 06-12-2020 PT Coag (PPP) [Time] Comp rehensive Internal Medicine Work Phone: Comment on above: PERFORMED BY: [facility] Eocclw4525 So RoadDublin [place] [id number] PT (PROTHROMBIN TIME) ([id number] )Ordered By: Bottling Attendant on 06-11-2020 INR Coag (PPP) [Relative time] 2.1 {INR} Abnormal 0.8-1.2 [facility] Work Phone: Comment on above: Reference interval i s for non-anticoagulated patients. . Suggested INR therapeutic range for Vitamin K antagonist therapy: Standard Dose (moderate intensity therapeutic range): 2.0 - 3.0 Higher intensity therapeutic range 2.5 - 3.5 PATIENT NOT FASTINGP ERFORMED BY: [facility]-Techlin6370 So RoadDublin [place] [id number] PT Coag (PPP) [Time] 20.7 {sec} Abnormal 9.1-12.0 [facility] Medicine Work Phone: Comment on above: PATIENT NOT FASTINGP ERFORMED BY: [facility]-Techlin6370 So RoadDublin [place] [id number] PT Coag (PPP) [Time] 20.7 s Abnormal 9.1-12.0 Comp [facility]; [facility] Work Phone: Comment on above: PATIENT NOT FASTINGP ERFORMED BY: [facility] Htfuuk0657 So RoadDublin [place] [id number] PT (PROTHROMBIN TIME) ([id number] )Ordered By: Teresita Ruiz on 05-21-2020 PT Coag (PPP) [Time] Comp rehensive Internal Medicine Work Phone: Comment on above: PERFORMED BY: [facility] Jtapoq2057 So RoadDublin [place] [id number] PT (PROTHROMBIN TIME) ([id number] )Ordered By: Teresita Ruiz on 05-17-2020 PT Coag (PPP) [Time] Comp rehensive Internal Medicine Work Phone: Comment on above: PERFORMED BY: [facility] Gucxjq9895 So RoadDublin [place] [id number] PT (PROTHROMBIN TIME) ([id number] )Ordered By: Bottling Attendant on 05-14-2020 INR Coag (PPP) [Relative time] 2.0 {INR} Abnormal 0.8-1.2 [facility] Work Phone: Comment on above: Reference interval i s for non-anticoagulated patients. . Suggested INR therapeutic range for Vitamin K antagonist therapy: Standard Dose (moderate intensity therapeutic range): 2.0 - 3.0 Higher intensity therapeutic range 2.5 - 3.5 PATIENT NOT FASTINGP ERFORMED BY: O[facility] Cgpvcg3540 So RoadDublin [place] [id number] PT Coag (PPP) [Time] 20.3 {sec} Abnormal 9.1-12.0 [facility] Work Phone: Comment on above: PATIENT NOT FASTINGP ERFORMED BY: Okeyko [facility] Fvjepd8738 So RoadDublin [place] [id number] PT Coag (PPP) [Time] 20.3 s Abnormal 9.1-12.0 Comp [facility]; [facility] Work Phone: Comment on above: PATIENT NOT FASTINGP ERFORMED BY: Okeyko [facility] Kxxchw2948 So RoadDublin [place] [id number] PT (PROTHROMBIN TIME) ([id number] )Ordered By: Bottling Attendant on 04-10-2020 INR Coag (PPP) [Relative time] 2.1 {INR} Abnormal 0.8-1.2 [facility] Work Phone: Comment on above: Reference interval i s for non-anticoagulated patients. . Suggested INR therapeutic range for Vitamin K antagonist therapy: Standard Dose (moderate intensity therapeutic range): 2.0 - 3.0 Higher intensity therapeutic range 2.5 - 3.5 PATIENT NOT FASTINGP ERFORMED BY: Okey[facility] Grwtyx9021 So RoadDublin [place] [id number] PT Coag (PPP) [Time] 20.9 {sec} Abnormal 9.1-12.0 Comp re[facility]ive Internal Medicine Work Phone: Comment on above: PATIENT NOT FASTINGP ERFORMED BY: RAOUL [facility]Co[facility] Pmpcrv4361 So RoadDublin [place] [id number] PT Coag (PPP) [Time] 20.9 s Abnormal 9.1-12.0 Comp rehensive Internal Medicine; [facility] Work Phone: Comment on above: PATIENT NOT FASTINGP ERFORMED BY: RAOUL [facility] Gvsqni7095 So RoadDublin [place] [id number] PT (PROTHROMBIN TIME) ([id number] )Ordered By: Bottling Attendant on 04-03-2020 INR Coag (PPP) [Relative time] 2.1 {INR} Abnormal 0.8-1.2 [facility] Work Phone: Comment on above: Reference interval i s for non-anticoagulated patients. . Suggested INR therapeutic range for Vitamin K antagonist therapy: Standard Dose (moderate intensity therapeutic range): 2.0 - 3.0 Higher intensity therapeutic range 2.5 - 3.5 PATIENT NOT FASTINGP ERFORMED BY: RAOUL [facility] Htejcd3450 So RoadDublin [place] [id number] PT Coag (PPP) [Time] 21.5 {sec} Abnormal 9.1-12.0 Comp [facility] Medicine Work Phone: Comment on above: PATIENT NOT FASTINGP ERFORMED BY: RAOUL [facility] Luzcmi7502 So RoadDublin [place] [id number] PT Coag (PPP) [Time] 21.5 s Abnormal 9.1-12.0 Comp rehensive Internal Medicine; [facility] Work Phone: Comment on above: PATIENT NOT FASTINGP ERFORMED BY: RAOUL [facility] Cbwzcj9461 So RoadDublin [place] [id number] HGB A1C ([id number])Ordered By: S ystem Bond Broker on 03-27-2020 HbA1c (Bld) [Mass fraction] 8.8 % Abnormal 4.8-5.6 [facility] Work Phone: Comment on above: . Prediabetes: 5.7 - 6.4 Diabetes: >6.4 Glycemic control for adults with diabetes: <7.0 PATIENT NOT FASTINGP ERFORMED BY: CB [facility] Tobjyp1236 So RoadDublin [place] [id number] Metabolic Panel, Comprehi ru ([id number])Ordered By: Bottling Attendant on 03-27-2020 Albumin [Mass/Vol] 4.4 g/dL Normal 3.7-4.7 [facility] Internal Medicine Work Phone: Comment on above: PATIENT NOT FASTINGP ERFORMED BY: CB [facility] Uokeod8072 So RoadDublin [place] [id number] Albumin/Globulin [Mass ratio] 1.7 {ratio} Normal 1.2-2.2 [facility] Work Phone: Comment on above: PATIENT NOT FASTINGP ERFORMED BY: CB [facility] Xytcsc9192 So RoadDublin [place] [id number] ALP [Catalytic activity/Vol] 134 [iU]/L Abnormal 39-117 [facility] Work Phone: Comment on above: PATIENT NOT FASTINGP ERFORMED BY: CB [facility] Fsizgy5499 So RoadDublin [place] [id number] ALP [Catalytic activity/Vol] 134 U/L Abnormal 39-117 [facility]; [facility] Work Phone: Comment on above: PATIENT NOT FASTINGP ERFORMED BY: CB [facility] Taignc9680 So RoadD[address] [place] [id number] ALT [Catalytic activity/Vol] 22 [iU]/L Normal 0-32 [facility] Work Phone: Comment on above: PATIENT NOT FASTINGP ERFORMED BY: CB [facility] Cjawvt7820 So RoadDublin [place] [id number] ALT [Catalytic activity/Vol] 22 U/L Normal 0-32 [facility]; [facility] Work Phone: Comment on above: PATIENT NOT FASTINGP ERFORMED BY: CB [facility] Alsuwq7034 So RoadDublin [place] [id number] AST [Catalytic activity/Vol] 24 [iU]/L Normal 0-40 [facility] Work Phone: Comment on above: PATIENT NOT FASTINGP ERFORMED BY: CB [facility] Bozcdd2332 So RoadD[address] [place] [id number] AST [Catalytic activity/Vol] 24 U/L Normal 0-40 [facility]; [facility] Work Phone: Comment on above: PATIENT NOT FASTINGP ERFORMED BY: CB [facility] Swaglp6387 So RoadD[address] [place] [id number] Bilirubin [Mass/Vol] 1.0 mg/dL Normal 0.0-1.2 Comp rehensive Internal Medicine Work Phone: Comment on above: PATIENT NOT FASTINGP ERFORMED BY: CB [facility] Wnbohm6135 So RoadDublin [place] [id number] Calcium [Mass/Vol] 9.5 mg/dL Normal 8.7-10.3 [facility] Internal Medicine Work Phone: Comment on above: PATIENT NOT FASTINGP ERFORMED BY: CB [facility] Yhxgxa4720 So RoadD[address] [place] [id number] Chloride [Moles/Vol] 100 mmol/L Normal 96-106 Comp rehensive Internal Medicine Work Phone: Comment on above: PATIENT NOT FASTINGP ERFORMED BY: CB [facility] Bqenyn7374 So RoadD[address] [place] [id number] CO2 [Moles/Vol] 25 mmol/L Normal 20-29 Comprehen [facility] Internal Medicine Work Phone: Comment on above: PATIENT NOT FASTINGP ERFORMED BY: CB [facility] Zpqtkb3839 So RoadDublin [place] [id number] Creatinine [Mass/Vol] 0.82 mg/dL Normal 0.57-1.00 [facility] Work Phone: Comment on above: PATIENT NOT FASTINGP ERFORMED BY: CB [facility] Wvzzsh3534 So RoadD[address] [place] [id number] GFR/1.73 sq M predicted among blacks CKD-EPI (S/P/Bld) [Vol rate/Area] 79 mL/min/1.73 Normal [facility] Work Phone: Comment on above: PATIENT NOT FASTINGP ERFORMED BY: CB [facility] Oubufi3594 So RoadD[address] [place] [id number] GFR/1.73 sq M predicted among non-blacks CKD-EPI (S/P/Bld) [Vol rate/Area] 69 mL/min/1.73 Normal [facility] Internal Medicine Work Phone: Comment on above: PATIENT NOT FASTINGP ERFORMED BY: CB [facility] Ketvys3120 So RoadD[address] [place] [id number] Globulin (S) [Mass/Vol] 2.6 g/dL Normal 1.5-4.5 [facility] Internal Medicine Work Phone: Comment on above: PATIENT NOT FASTINGP ERFORMED BY: CB [facility] Labfgy2486 So RoadDublin [place] [id number] Glucose [Mass/Vol] 197 mg/dL Abnormal 65-99 [facility] Internal Medicine Work Phone: Comment on above: PATIENT NOT FASTINGP ERFORMED BY: CB [facility] Kjpxaj7509 So RoadDublin [place] [id number] Potassium [Moles/Vol] 4.2 mmol/L Normal 3.5-5.2 [facility] Internal Medicine Work Phone: Comment on above: PATIENT NOT FASTINGP ERFORMED BY: CB [facility] Rfquar4154 So RoadDublin [place] [id number] Protein [Mass/Vol] 7.0 g/dL Normal 6.0-8.5 [facility] Internal Medicine Work Phone: Comment on above: PATIENT NOT FASTINGP ERFORMED BY: CB [facility] Cldtkq8565 So RoadDublin [place] [id number] Sodium [Moles/Vol] 141 mmol/L Normal 134-144 [facility] Internal Medicine Work Phone: Comment on above: PATIENT NOT FASTINGP ERFORMED BY: CB [facility] Lztvgx1726 So RoadDublin [place] [id number] Urea nitrogen [Mass/Vol] 28 mg/dL Abnormal 8-27 [facility] Work Phone: Comment on above: PATIENT NOT FASTINGP ERFORMED BY: RAOUL LabCojoe Xmarrx8646 So RoadDublin [place] [id number] Urea nitrogen/Creatinine [Mass ratio] 34 mg/mg Abnormal 11-12 [facility] Work Phone: Comment on above: PATIENT NOT FASTINGP ERFORMED BY: RAOUL [facility] Kzpzbf9378 So RoadDublin [place] [id number] PT (PROTHROMBIN TIME) ([id number] )Ordered By: Bottling Attendant on 03-27-2020 INR Coag (PPP) [Relative time] 1.8 {INR} Abnormal 0.8-1.2 [facility] Work Phone: Comment on above: Reference interval i s for non-anticoagulated patients. . Suggested INR therapeutic range for Vitamin K antagonist therapy: Standard Dose (moderate intensity therapeutic range): 2.0 - 3.0 Higher intensity therapeutic range 2.5 - 3.5 PATIENT NOT FASTINGP ERFORMED BY: RAOUL LabAshly Djwsrv1584 So RoadUnc Healthin [place] [id number] PT Coag (PPP) [Time] 18.5 {sec} Abnormal 9.1-12.0 [facility] Internal Medicine Work Phone: Comment on above: PATIENT NOT FASTINGP ERFORMED BY: RAOUL LabMariangel CuevaDedcas6138 So RoadDublin [place] [id number] PT Coag (PPP) [Time] 18.5 s Abnormal 9.1-12.0 [facility]; [facility] Work Phone: Comment on above: PATIENT NOT FASTINGP ERFORMED BY: RAOUL [facility] Hriufn3979 So RoadDublin [place] [id number] PT (PROTHROMBIN TIME) ([id number] )Ordered By: Bottling Attendant on 03-20-2020 INR Coag (PPP) [Relative time] 1.6 {INR} Abnormal 0.8-1.2 [facility] Work Phone: Comment on above: Reference interval i s for non-anticoagulated patients. . Suggested INR therapeutic range for Vitamin K antagonist therapy: Standard Dose (moderate intensity therapeutic range): 2.0 - 3.0 Higher intensity therapeutic range 2.5 - 3.5 PATIENT NOT FASTINGP ERFORMED BY: RAOUL [facility] Derzgi1369 So RoadDublin [place] [id number] PT Coag (PPP) [Time] 15.9 {sec} Abnormal 9.1-12.0 [facility] rehensive Internal Medicine Work Phone: Comment on above: PATIENT NOT FASTINGP ERFORMED BY: RAOUL [facility] Icdudw0841 So RoadDublin [place] [id number] PT Coag (PPP) [Time] 15.9 s Abnormal 9.1-12.0 [facility] rehensive Internal Medicine; [facility] Work Phone: Comment on above: PATIENT NOT FASTINGP ERFORMED BY: RAOUL LabMariangel CuevaFutreh5641 So RoadDublin [place] [id number] PT (PROTHROMBIN TIME) ([id number] )Ordered By: Bottling Attendant on 03-13-2020 INR Coag (PPP) [Relative time] 2.0 {INR} Abnormal 0.8-1.2 [facility] Work Phone: Comment on above: Reference interval i s for non-anticoagulated patients. . Suggested INR therapeutic range for Vitamin K antagonist therapy: Standard Dose (moderate intensity therapeutic range): 2.0 - 3.0 Higher intensity therapeutic range 2.5 - 3.5 PATIENT NOT FASTINGP ERFORMED BY: RAOUL Barron Kvjaop1255 So RoadDublin [place] [id number] PT Coag (PPP) [Time] 20.3 {sec} Abnormal 9.1-12.0 [facility] Work Phone: Comment on above: PATIENT NOT FASTINGP ERFORMED BY: RAOUL [facility] Rwklsn2660 So RoadDublin [place] [id number] PT Coag (PPP) [Time] 20.3 s Abnormal 9.1-12.0 [facility] rehensive Internal Medicine; [facility] Work Phone: Comment on above: PATIENT NOT FASTINGP ERFORMED BY: RAOUL [facility] Wsxxcb4544 So RoadDublin [place] [id number] PT (PROTHROMBIN TIME) ([id number] )Ordered By: Bottling Attendant on 03-06-2020 INR Coag (PPP) [Relative time] 1.8 {INR} Abnormal 0.8-1.2 [facility] Work Phone: Comment on above: Reference interval i s for non-anticoagulated patients. . Suggested INR therapeutic range for Vitamin K antagonist therapy: Standard Dose (moderate intensity therapeutic range): 2.0 - 3.0 Higher intensity therapeutic range 2.5 - 3.5 PATIENT NOT FASTINGP ERFORMED BY: CB [facility] Ejxmfn3137 So RoadDublin [place] [id number] PT Coag (PPP) [Time] 17.9 {sec} Abnormal 9.1-12.0 [facility] Medicine Work Phone: Comment on above: PATIENT NOT FASTINGP ERFORMED BY: CB [facility] Gnxkwh6466 So RoadD[place] [id number] PT Coag (PPP) [Time] 17.9 s Abnormal 9.1-12.0 [facility] re[facility]; [facility] Work Phone: Comment on above: PATIENT NOT FASTINGP ERFORMED BY: CB [facility] Rsckwo3801 So RoadD[address] [place] [id number] PT (PROTHROMBIN TIME) ([id number] )Ordered By: Bottling Attendant on 02-28-2020 INR Coag (PPP) [Relative time] 1.5 {INR} Abnormal 0.8-1.2 [facility] Work Phone: Comment on above: Reference interval i s for non-anticoagulated patients. . Suggested INR therapeutic range for Vitamin K antagonist therapy: Standard Dose (moderate intensity therapeutic range): 2.0 - 3.0 Higher intensity therapeutic range 2.5 - 3.5 PATIENT NOT FASTINGP ERFORMED BY: CB [facility] Mmtcjr1144 So RoadD[place] [id number] PT Coag (PPP) [Time] 15.5 {sec} Abnormal 9.1-12.0 [facility] Work Phone: Comment on above: PATIENT NOT FASTINGP ERFORMED BY: CB [facility] Vdgdcy6255 So RoadD[place] [id number] PT Coag (PPP) [Time] 15.5 s Abnormal 9.1-12.0 [facility] rehensive Internal Medicine; [facility] Work Phone: Comment on above: PATIENT NOT FASTINGP ERFORMED BY: RAOUL Cowan6370 So [facility] [place] [id number] PT (PROTHROMBIN TIME) ([id number] )Ordered By: Bottling Attendant on 02-21-2020 INR Coag (PPP) [Relative time] 2.0 {INR} Abnormal 0.8-1.2 [facility] Work Phone: Comment on above: Reference interval i s for non-anticoagulated patients. . Suggested INR therapeutic range for Vitamin K antagonist therapy: Standard Dose (moderate intensity therapeutic range): 2.0 - 3.0 Higher intensity therapeutic range 2.5 - 3.5 PATIENT NOT FASTINGP ERFORMED BY: RAOUL Beatrice Cuevalin6370 So [facility] [id number] PT Coag (PPP) [Time] 19.7 {sec} Abnormal 9.1-12.0 [facility] Internal Medicine Work Phone: Comment on above: PATIENT NOT FASTINGP ERFORMED BY: RAOUL Arceliajoe Aqkrwe9431 So [facility] [id number] PT Coag (PPP) [Time] 19.7 s Abnormal 9.1-12.0 [facility]; [facility] Work Phone: Comment on above: PATIENT NOT FASTINGP ERFORMED BY: RAOUL Arcelia Rzmpzq2905 So [facility] [id number] PT (PROTHROMBIN TIME) ([id number] )Ordered By: Bottling Attendant on 02-15-2020 INR Coag (PPP) [Relative time] 1.7 {INR} Abnormal 0.8-1.2 [facility] Work Phone: Comment on above: Reference interval i s for non-anticoagulated patients. . Suggested INR therapeutic range for Vitamin K antagonist therapy: Standard Dose (moderate intensity therapeutic range): 2.0 - 3.0 Higher intensity therapeutic range 2.5 - 3.5 PATIENT NOT FASTINGP ERFORMED BY: RAOUL [facility] Gmewxn4157 [facility] [id number] PT Coag (PPP) [Time] 16.9 {sec} Abnormal 9.1-12.0 [facility] re[facility] Internal Medicine Work Phone: Comment on above: PATIENT NOT FASTINGP ERFORMED BY: RAOUL Cowan6370 So [facility] [place] [id number] PT Coag (PPP) [Time] 16.9 s Abnormal 9.1-12.0 [facility] re[facility]ive [facility] Medicine; [facility] Work Phone: Comment on above: PATIENT NOT FASTINGP ERFORMED BY: [facility] Pnnvea2498 [facility] [id number] PT (PROTHROMBIN TIME) ([id number] )Ordered By: Bottling Attendant on 02-06-2020 INR Coag (PPP) [Relative time] 1.4 {INR} Abnormal 0.8-1.2 [facility] Work Phone: Comment on above: Reference interval i s for non-anticoagulated patients. . Suggested INR therapeutic range for Vitamin K antagonist therapy: Standard Dose (moderate intensity therapeutic range): 2.0 - 3.0 Higher intensity therapeutic range 2.5 - 3.5 PATIENT NOT FASTINGP ERFORMED BY: RAOUL Arcelia Nshpkv9943 [facility] [id number] PT Coag (PPP) [Time] 14.0 {sec} Abnormal 9.1-12.0 [facility] Work Phone: Comment on above: PATIENT NOT FASTINGP ERFORMED BY: [facility] Xibipn9438 So [facility] [id number] PT Coag (PPP) [Time] 14.0 s Abnormal 9.1-12.0 [facility] rehensive Internal Medicine; [facility] Work Phone: Comment on above: PATIENT NOT FASTINGP ERFORMED BY: RAOUL [facility] Uqbrwv7043 So [facility] [place] [id number] PT (PROTHROMBIN TIME) ([id number] )Ordered By: Bottling Attendant on 01-31-2020 INR Coag (PPP) [Relative time] 2.0 {INR} Abnormal 0.8-1.2 [facility] Work Phone: Comment on above: Reference interval i s for non-anticoagulated patients. . Suggested INR therapeutic range for Vitamin K antagonist therapy: Standard Dose (moderate intensity therapeutic range): 2.0 - 3.0 Higher intensity therapeutic range 2.5 - 3.5 PATIENT NOT FASTINGP ERFORMED BY: CB [facility] Fvrncc4740 So RoadD[address] [place] [id number] PT Coag (PPP) [Time] 19.7 {sec} Abnormal 9.1-12.0 [facility] re[facility] Internal Medicine Work Phone: Comment on above: PATIENT NOT FASTINGP ERFORMED BY: [facility] Bcltxj6912 So RoadD[place] [id number] PT Coag (PPP) [Time] 19.7 s Abnormal 9.1-12.0 [facility] rehensive Internal Medicine; [facility] Internal Medicine Work Phone: Comment on above: PATIENT NOT FASTINGP ERFORMED BY: [facility] Xuupqc0560 So RoadD[address] [place] [id number] PT (PROTHROMBIN TIME) ([id number] )Ordered By: Bottling Attendant on 01-17-2020 INR Coag (PPP) [Relative time] 1.6 {INR} Abnormal 0.8-1.2 [facility] Work Phone: Comment on above: Reference interval i s for non-anticoagulated patients. . Suggested INR therapeutic range for Vitamin K antagonist therapy: Standard Dose (moderate intensity therapeutic range): 2.0 - 3.0 Higher intensity therapeutic range 2.5 - 3.5 PATIENT NOT FASTINGP ERFORMED BY: [facility] Mxmvss3775 So RoadD[place] [id number] PT Coag (PPP) [Time] 16.4 {sec} Abnormal 9.1-12.0 [facility] rehensive Internal Medicine Work Phone: Comment on above: PATIENT NOT FASTINGP ERFORMED BY: CB [facility] Hdbiow3406 So RoadD[place] [id number] PT Coag (PPP) [Time] 16.4 s Abnormal 9.1-12.0 [facility] rehensive Internal Medicine; [facility] Work Phone: Comment on above: PATIENT NOT FASTINGP ERFORMED BY: RAOUL [facility] Livelc7476 So RoadD[place] [id number] PT (PROTHROMBIN TIME) ([id number] )Ordered By: Bottling Attendant on 01-09-2020 INR Coag (PPP) [Relative time] 1.4 {INR} Abnormal 0.8-1.2 [facility] Work Phone: Comment on above: Reference interval i s for non-anticoagulated patients. . Suggested INR therapeutic range for Vitamin K antagonist therapy: Standard Dose (moderate intensity therapeutic range): 2.0 - 3.0 Higher intensity therapeutic range 2.5 - 3.5 PATIENT NOT FASTINGP ERFORMED BY: RAOUL [facility] Ijuviv7220 So RoadD[place] [id number] PT Coag (PPP) [Time] 14.6 {sec} Abnormal 9.1-12.0 [facility] rehensive Internal Medicine Work Phone: Comment on above: PATIENT NOT FASTINGP ERFORMED BY: CB [facility] Rbtznw4487 So RoadD[place] [id number] PT Coag (PPP) [Time] 14.6 s Abnormal 9.1-12.0 [facility] rehensive Internal Medicine; [facility] Work Phone: Comment on above: PATIENT NOT FASTINGP ERFORMED BY: CB [facility] Dhnpku5518 So RoadD[place] [id number] CALCIFEDIOL ([id number])Ordered B y: Bottling Attendant on 01-04-2020 25-Hydroxyvitamin D2+25-Hydroxyvitamin D3 [Mass/Vol] 38.5 ng/mL Normal 30.0-100.0 [facility] Work Phone: Comment on above: Vitamin D deficiency has been defined by the [place] [employer] and an Endocrine Society practice guideline as alevel of serum 25-OH vitamin D less than 20 ng/mL (1,2).The Endocrine Society went on to further define vitamin Dinsufficiency as a level between 21 and 29 ng/mL (2).1. IOM ([place] [employer]). 2010. Dietary reference intakes for calcium and D. [place]: The National Academies Press.2. Joe MEANS, Norma MANCILLA, Rhonda LOCKHART, et al. Evaluation, treatment, and prevention of vitamin D deficiency: an Endocrine Society clinical practice guideline. JCEM. 2010; 96(7):1911-30. PATIENT NOT FASTINGP ERFORMED BY: CB [facility] Bxxvhp4864 So RoadD[address] [place] [id number] MAGNESIUM ([id number])Ordered By: Bottling Attendant on 01-04-2020 Magnesium [Mass/Vol] 1.7 mg/dL Normal 1.6-2.3 Comp [facility] Internal Medicine Work Phone: Comment on above: PATIENT NOT FASTINGP ERFORMED BY: CB [facility] Yyaysp4193 So RoadD[place] [id number] Metabolic Panel, Comprehensi ve ([id number])Ordered By: Bottling Attendant on 01-04-2020 Albumin [Mass/Vol] 4.3 g/dL Normal 3.7-4.7 [facility] Internal Medicine Work Phone: Comment on above: Please note refere nce interval change PATIENT NOT FASTINGP ERFORMED BY: CB [facility] Ugbrql3880 So RoadD[address] [place] [id number] Albumin/Globulin [Mass ratio] 1.9 {ratio} Normal 1.2-2.2 [facility] Work Phone: Comment on above: PATIENT NOT FASTINGP ERFORMED BY: CB [facility] Gdvbcm7978 So RoadD[place] [id number] ALP [Catalytic activity/Vol] 141 [iU]/L Abnormal 39-117 [facility] Work Phone: Comment on above: PATIENT NOT FASTINGP ERFORMED BY: CB [facility] Oabyte9895 So RoadDublin [place] [id number] ALP [Catalytic activity/Vol] 141 U/L Abnormal 39-117 [facility]; [facility] Work Phone: Comment on above: PATIENT NOT FASTINGP ERFORMED BY: CB [facility] Axdhgb2516 [address] RoadD[address] [place] [id number] ALT [Catalytic activity/Vol] 17 [iU]/L Normal 0-32 [facility] Work Phone: Comment on above: PATIENT NOT FASTINGP ERFORMED BY: [facility] Gtbxww0519 So RoadD[address] [place] [id number] ALT [Catalytic activity/Vol] 17 U/L Normal 0-32 [facility]; [facility] Work Phone: Comment on above: PATIENT NOT FASTINGP ERFORMED BY: CB [facility] Kdjdti5783 So RoadD[address] [place] [id number] AST [Catalytic activity/Vol] 17 [iU]/L Normal 0-40 [facility] Work Phone: Comment on above: PATIENT NOT FASTINGP ERFORMED BY: [facility] Qxsozx0394 So RoadD[address] [place] [id number] AST [Catalytic activity/Vol] 17 U/L Normal 0-40 [facility]; [facility] Work Phone: Comment on above: PATIENT NOT FASTINGP ERFORMED BY: [facility] Zkvzlo5291 So RoadD[address] [place] [id number] Bilirubin [Mass/Vol] 1.0 mg/dL Normal 0.0-1.2 [facility] rehensive Internal Medicine Work Phone: Comment on above: PATIENT NOT FASTINGP ERFORMED BY: RAOUL LabMariangel Kcclul7961 So RoadD[address] [place] [id number] Calcium [Mass/Vol] 9.8 mg/dL Normal 8.7-10.3 [facility] Internal Medicine Work Phone: Comment on above: PATIENT NOT FASTINGP ERFORMED BY: [facility] Hkcdnd4008 So RoadD[address] [place] [id number] Chloride [Moles/Vol] 97 mmol/L Normal 96-106 [facility] rehensive Internal Medicine Work Phone: Comment on above: PATIENT NOT FASTINGP ERFORMED BY: CB [facility] Kkqxxk0761 So RoadD[address] [place] [id number] CO2 [Moles/Vol] 21 mmol/L Normal 20-29 Comprehen [facility] Internal Medicine Work Phone: Comment on above: PATIENT NOT FASTINGP ERFORMED BY: CB [facility] Varxok3675 So RoadD[address] [place] [id number] Creatinine [Mass/Vol] 0.95 mg/dL Normal 0.57-1.00 [facility] Internal Medicine Work Phone: Comment on above: PATIENT NOT FASTINGP ERFORMED BY: CB [facility] Xthztj4601 So RoadD[address] [place] [id number] GFR/1.73 sq M predicted among blacks CKD-EPI (S/P/Bld) [Vol rate/Area] 66 mL/min/1.73 Normal [facility] Work Phone: Comment on above: PATIENT NOT FASTINGP ERFORMED BY: CB [facility] Vtckqr2648 So RoadD[place] [id number] GFR/1.73 sq M predicted among non-blacks CKD-EPI (S/P/Bld) [Vol rate/Area] 58 mL/min/1.73 Abnormal [facility] Internal Medicine Work Phone: Comment on above: PATIENT NOT FASTINGP ERFORMED BY: CB [facility] Fxfjov6679 So RoadD[address] [place] [id number] Globulin (S) [Mass/Vol] 2.3 g/dL Normal 1.5-4.5 [facility] Internal Medicine Work Phone: Comment on above: PATIENT NOT FASTINGP ERFORMED BY: CB [facility] Vcisgn4933 So RoadDublin [place] [id number] Glucose [Mass/Vol] 283 mg/dL Abnormal 65-99 [facility] Internal Medicine Work Phone: Comment on above: PATIENT NOT FASTINGP ERFORMED BY: CB [facility] Edakdy8323 So RoadD[address] [place] [id number] Potassium [Moles/Vol] 4.3 mmol/L Normal 3.5-5.2 [facility] Internal Medicine Work Phone: Comment on above: PATIENT NOT FASTINGP ERFORMED BY: CB [facility] Qsudjc9615 So RoadDublin [place] [id number] Protein [Mass/Vol] 6.6 g/dL Normal 6.0-8.5 [facility] Internal Medicine Work Phone: Comment on above: PATIENT NOT FASTINGP ERFORMED BY: RAUOL Cowan6370 [facility] [id number] Sodium [Moles/Vol] 132 mmol/L Abnormal 134-144 [facility] Internal Medicine Work Phone: Comment on above: PATIENT NOT FASTINGP ERFORMED BY: RAOUL Velasquez Ececgr9284 [facility] [id number] Urea nitrogen [Mass/Vol] 30 mg/dL Abnormal 8- [facility] Work Phone: Comment on above: PATIENT NOT FASTINGP ERFORMED BY: RAOUL Cuevalin6370 [facility] [id number] Urea nitrogen/Creatinine [Mass ratio] 32 mg/mg Abnormal 11-12 [facility] Work Phone: Comment on above: PATIENT NOT FASTINGP ERFORMED BY: RAOUL Velasquez Mkveqw8759 [facility] [id number] PT (PROTHROMBIN TIME) ([id number] )Ordered By: Bottling Attendant on 01-04-2020 INR Coag (PPP) [Relative time] 1.4 {INR} Abnormal 0.8-1.2 [facility] Work Phone: Comment on above: Reference interval i s for non-anticoagulated patients. . Suggested INR therapeutic range for Vitamin K antagonist therapy: Standard Dose (moderate intensity therapeutic range): 2.0 - 3.0 Higher intensity therapeutic range 2.5 - 3.5 PATIENT NOT FASTINGP ERFORMED BY: RAOUL Velasquez Xacgyb2494 [facility] [id number] PT Coag (PPP) [Time] 14.0 {sec} Abnormal 9.1-12.0 [facility] Work Phone: Comment on above: PATIENT NOT FASTINGP ERFORMED BY: RAOUL Velasquez Gmgrpt4823 [facility] [id number] PT Coag (PPP) [Time] 14.0 s Abnormal 9.1-12.0 Comp rehensive Internal Medicine; [facility] Work Phone: Comment on above: PATIENT NOT FASTINGP ERFORMED BY: [facility] Xmpsmu4491 [facility] [id number] TSH (THYROID STIMULATING HOR GIOVANNA) ([id number])Ordered By: Bottling Attendant on 01-04-2020 TSH Qn 4.220 {uIU/mL} Normal 0.450-4.50 0 [facility] Work Phone: Comment on above: PATIENT NOT FASTINGP ERFORMED BY: [facility] Zvsbni9775 [facility] [id number] Blood Glucose , Office (3081 2)Ordered By: Madison Greer on 12-27-2019 Glucose Glucometer (BldC) [Moles/Vol] 468 1 Normal [facility] Work Phone: HgA1C , Office ([id number])Ordere d By: Madison Greer on 12-27-2019 HbA1c (Bld) [Mass fraction] 14.1 % Abnormal 4.6 - 7.1 [facility] Work Phone: Office Visiton 10-02-2017 Dietary management education, guidance, and counseling (procedure) yes Invalid Interpretation Code [facility] Work Phone: Documentation of current medications (procedure) Done Invalid Interpretation Code [facility] Work Phone: Office Visit: [facility] 03-27-20 Fall risk assessment No Invalid Interpretation Code [facility] Work Phone: Office Visiton 09-25-2016 Tobacco use [facility] Never smoker Invalid Interpretation Code [facility] Work Phone: Lab Report: Vitamin D,25 Hyd roxyon 04-16-2016 Vitamin D 25-OH 88.7 ng/mL Invalid Interpretation Code [facility] Work Phone: Lab Report: CBC W/Diff, Auto matedon 04-15-2016 Absolute Neut 5.8 X10 3/UL Invalid Interpretation Code 2.0-7.7 [facility] Work Phone: Basophils/100 WBC Auto (Bld) 0.3 % Invalid Interpretation Code 0-1 [facility] Work Phone: Eosinophils/100 leukocytes 3.0 % Invalid Interpretation Code 0-5 [facility] [employer] Work Phone: Erythrocyte distribution width Auto Ratio (RBC) 14.4 % Invalid Interpretation Code 11.6-14.6 [facility] Work Phone: Erythrocytes (RBC) 4.64 10*6/uL Invalid Interpretation Code 4.2-5.4 [facility] Work Phone: Hematocrit (HCT) 39.8 % Invalid Interpretation Code 37-47 [facility] [employer] Work Phone: Hemoglobin mass conc (Bld) 13.4 g/dL Invalid Interpretation Code 12.0-15.0 [facility] Work Phone: Immature granulocytes/100 WBC (Bld) 0.400 % Invalid Interpretation Code 0.0-0.9 [facility] Work Phone: Lymphocytes 2.41 X10 3/UL Invalid Interpretation Code 0.83-4.51 [facility] Work Phone: Lymphocytes/100 leukocytes 25.7 % Invalid Interpretation Code 19-41 [facility] Work Phone: MCH 28.9 pg Invalid Interpretation Code 27.0-32.0 [facility] Work Phone: MCHC mass conc (RBC) 33.7 G/GL Invalid Interpretation Code 32-36 [facility] Work Phone: MCV 85.8 fL Invalid Interpretation Code 81-99 [facility] Work Phone: Monocytes/100 leukocytes 8.7 % Invalid Interpretation Code 0-10 [facility] Work Phone: Neutrophils/100 WBC Auto (Bld) 61.9 % Invalid Interpretation Code 47-70 [facility] Work Phone: Platelets 172 10*3/mm3 Invalid Interpretation Code 150-450 [facility] Work Phone: PMV by Aleida 12.0 fL Invalid Interpretation Code 6.2-12.0 [facility] Work Phone: RDW SD 44.5 fL High 35.1-43.9 [facility] Work Phone: WBC (Leukocytes) 9.4 10*3/uL Invalid Interpretation Code 4.4-11.0 [facility] Work Phone: Lab Report: [facility] 04-15-2016 Alanine aminotransferase (ALT) 37 U/L Invalid Interpretation Code 12-78 [facility] Work Phone: Albumin 3.7 g/dL Invalid Interpretation Code 3.4-5.0 [facility] Work Phone: Albumin/Globulin Ratio 0.9 {ratio} Invalid Interpretation Code 0.9-2.4 [facility] Work Phone: Alkaline phosphatase (ALP) 107 U/L Invalid Interpretation Code 50-136 [facility] [facility] Work Phone: Anion gap 13 mmol/L Invalid Interpretation Code 5-15 [facility] [facility] Work Phone: Aspartate aminotransferase (AST) 23 U/L Invalid Interpretation Code 15-37 [facility] [facility] Work Phone: Bilirubin (total) 1.00 mg/dL Invalid Interpretation Code 0.20-1.00 [facility] Work Phone: BUN/Creatinine Ratio 29.6 RATIO High 10-[address] [facility] Work Phone: Calcium 9.5 mg/dL Invalid Interpretation Code 8.5-10.1 [facility] Work Phone: Chloride 107 mmol/L Invalid Interpretation Code 98-107 [facility] Work Phone: CO2 22.0 mmol/L Invalid Interpretation Code 21.0-32.0 [facility] Work Phone: Creatinine 1.15 mg/dL Invalid Interpretation Code 0.55-1.20 [facility] [employer] Work Phone: eGFR (non-black) 59 mL/min/{1.73_m2} Low >60 [facility] Work Phone: eGFR (non-black) 49 mL/min/{1.73_m2} Low >60 [facility] Work Phone: Globulin 4.0 g/dL High 2.3-3.5 [facility] Work Phone: Glucose mass conc 263 mg/dL High 70-110 [facility] Work Phone: Potassium molar conc 3.7 mmol/L Invalid Interpretation Code 3.5-5.1 [facility] Work Phone: Protein 7.7 g/dL Invalid Interpretation Code 6.4-8.2 [facility] Work Phone: Sodium 142 mmol/L Invalid Interpretation Code 136-145 [facility] Work Phone: Urea nitrogen 34 mg/dL High 7-18 [facility] Work Phone: Lab Report: Lipid Profileon 04-15-2016 Cholesterol 111 mg/dL Invalid Interpretation Code 200 [facility] Work Phone: HDL Cholesterol 37 mg/dL Low [facility] Work Phone: LDL Cholesterol 35 mg/dL Invalid Interpretation Code 0-130 [facility] Work Phone: Triglyceride 195 mg/dL Invalid Interpretation Code [facility] Work Phone: very low density lipoproteins 39 mg/dL Invalid Interpretation Code 5-40 [facility] Work Phone: Lab Report: Magnesiumon 03-18 Magnesium 1.3 mg/dL Low 1.8-2.4 [facility] Work Phone: Lab Report: Thyroid Stim Hor giovanna (TSH)on 04-15-2016 Thyroid stimulating hormone (TSH) 3.20 u[iU]/mL Invalid Interpretation Code 0.358-3.74 [facility] Work Phone: Replaced Document: Elodia DOWNING Observationson 03-18-2016 EKG QRS axis -29 deg Invalid Interpretation Code [facility] Work Phone: Interpretation Sinus Rhythm Voltage criteria for LVH (R(I)+S(III) exceeds 2.50 mV) -Voltage criteria w/o ST/T abnormality may be normal. BORDERLINE Invalid Interpretation Code [facility] Work Phone: P [place] 42 deg Invalid Interpretation Code [facility] Work Phone: [place] Interval 160 ms Invalid Interpretation Code [facility] Work Phone: Pulse (Heart Rate) 63 /min Invalid Interpretation Code [facility] Work Phone: QRS Duration 98 ms Invalid Interpretation Code [facility] Work Phone: QT Interval new path ms Invalid Interpretation Code [facility] Work Phone: QTc Whitley 443 ms Invalid Interpretation Code [facility] Work Phone: T [place] 21 deg Invalid Interpretation Code [facility] Phone: Clinical Lists Update: [facility] 03-11-2016 Left ventricular Ejection fraction 60 % Invalid Interpretation Code [facility] Phone: Office Visiton 01-31-2015 cardiac risk group C Invalid Interpretation Code [facility] Work Phone: General cardiovascular disease 10Y risk [#] [place].D'Agostino N/A Invalid Interpretation Code [facility] Phone: Clinical Lists Update: [facility] 12-25-2014 Albumin/Globulin Ratio 0.9 {ratio} Invalid Interpretation Code [facility] Phone: basophils as percent of blood leukocytes, manual count 0.5 % Invalid Interpretation Code [facility] Phone: eosinophils as percent of blood leukocytes, manual count 3.3 % Invalid Interpretation Code [facility] Work Phone: Globulin 4.2 g/dL Invalid Interpretation Code [facility] Work Phone: Lymphocytes 2.63 10*3/uL Invalid Interpretation Code [facility] Work Phone: Neutrophils 5.2 10*3/uL Invalid Interpretation Code [facility] Phone: neutrophils, band form as percent of blood leukocytes, manual count 56.8 % Invalid Interpretation Code [facility] Phone: Clinical 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 Marge quevedo 01-02-2014 Cholesterol to HDL Ratio 4.4 {ratio} Invalid Interpretation Code [facility] Work Phone: Lab Report: LIVERon 01-29-20 13 Bilirubin (direct) 0.21 mg/dL Normal 0.00-0.30 [facility] Work Phone: Blood Glucose , Office ([phone] 2)Ordered By: Poonam Mae on 06-14-2010 Glucose Glucometer (BldC) [Moles/Vol] 263 1 Normal [facility] Work Phone: HgA1C , Office (30590)Ordere d By: Poonam Mae on 06-14-2010 HbA1c (Bld) [Mass fraction] 11.0 % Abnormal 4.6 - 7.1 [facility] Work Phone: Blood Glucose , Office (7164 2)Ordered By: Poonam Mae on 09-03-2009 Glucose Glucometer (BldC) [Moles/Vol] 138 1 Normal [facility] Work Phone: HgA1C , Office (34143)Ordere d By: Poonam Mae on 09-03-2009 HbA1c (Bld) [Mass fraction] 6.2 % Normal 4.6 - 7.1 [facility] Work Phone: TSH (43039)Ordered By: Maria Del Rosario Fast on 09-03-2009 TSH Qn 2.780 {uIU/mL} Normal 0.450-4.50 0 [facility] Work Phone: Comment on above: PATIENT NOT FASTINGC linical Information: [id number] PERFORMED BY: [facility]CoEs[facility] HospitalEmootv9828 [facility] [id number] HEPATIC FUNCTION PANEL (8007 6)Ordered By: Maria Del Rosario Fast on 08-22-2009 Bilirubin.direct [Mass/Vol] 0.20 mg/dL Normal 0.00-0.40 [facility] Work Phone: Comment on above: PATIENT WAS FASTINGP ERFORMED BY: CB [facility] Dtguig3787 [address] RoadDublin [place] [id number] LIPID PANEL (96144)Ordered B y: Maria Del Rosario Fast on 08-22-2009 Cholesterol [Mass/Vol] 193 mg/dL Normal 100-199 [facility] Work Phone: Comment on above: PATIENT WAS FASTINGP ERFORMED BY: CB [facility] Tvdzyh0849 So RoadDublin [place] [id number] Cholesterol in HDL [Mass/Vol] 46 mg/dL Normal [facility] Work Phone: Comment on above: According to ATP-III Guidelines, HDL-C >59 mg/dL is considered anegative risk factor for CHD. PATIENT WAS FASTINGP ERFORMED BY: CB [facility] Nkyyav1257 [address] RoadDublin [place] [id number] Cholesterol in LDL [Mass/Vol] 127 mg/dL Abnormal 0-99 [facility] Work Phone: Comment on above: PATIENT WAS FASTINGP ERFORMED BY: CB [facility] Jlqqkw9274 So RoadDublin [place] [id number] Cholesterol in LDL/Cholesterol in HDL [Mass ratio] 2.8 {ratio_units} Normal 0.0-3.2 [facility] Work Phone: Comment on above: PATIENT WAS FASTINGP ERFORMED BY: CB [facility] Npfmgg5127 [address] RoadDublin [place] [id number] Cholesterol in VLDL [Mass/Vol] 20 mg/dL Normal 5-40 [facility] Work Phone: Comment on above: PATIENT WAS FASTINGP ERFORMED BY: CB [facility] Njympl4314 [address] RoadD[address] [place] [id number] Triglyceride [Mass/Vol] 100 mg/dL Normal 0-149 [facility] Work Phone: Comment on above: PATIENT WAS FASTINGP ERFORMED BY: CB [facility] Fpkcao3371 [address] RoadDublin [place] [id number] METABOLIC PANEL, COMPREHENSI VE (43712)Ordered By: Maria Del Rosario Machado on 08-22-2009 Albumin [Mass/Vol] 4.3 g/dL Normal 3.6-4.8 [facility] Work Phone: Comment on above: PATIENT WAS FASTINGC linical Information: ADD 090101, [id number] PERFORMED BY: [facility] Tltafz4883 [address] RoadDublin [place] [id number] Albumin/Globulin [Mass ratio] 1.5 {ratio} Normal 1.1-2.5 [facility] Work Phone: Comment on above: PATIENT WAS FASTINGC linical Information: ADD 608020, [id number] PERFORMED BY: CB [facility] Hpzgle2998 [address] RoadDublin [place] [id number] ALP [Catalytic activity/Vol] 97 [iU]/L Normal 25-165 [facility] Work Phone: Comment on above: PATIENT WAS FASTINGC linical Information: ADD 227920, [id number] PERFORMED BY: [facility] Kebayl0272 [address] RoadDublin [place] [id number] ALP [Catalytic activity/Vol] 97 U/L Normal 25-165 [facility]; [facility] Work Phone: Comment on above: PATIENT WAS FASTINGC linical Information: ADD 300352, [id number] PERFORMED BY: [facility] Gjnxay2803 [address] RoadDublin [place] [id number] ALT [Catalytic activity/Vol] 44 [iU]/L Abnormal 0-40 [facility] Work Phone: Comment on above: PATIENT WAS FASTINGC linical Information: ADD 780761, [id number] PERFORMED BY: [facility] Qkrusf0181 [address] RoadDublin [place] [id number] ALT [Catalytic activity/Vol] 44 U/L Abnormal 0-40 [facility]; [facility] Work Phone: Comment on above: PATIENT WAS FASTINGC linical Information: ADD 778894, [id number] PERFORMED BY: [facility] Mhdxki6754 [address] RoadD[address] [place] [id number] AST [Catalytic activity/Vol] 35 [iU]/L Normal 0-40 [facility] Work Phone: Comment on above: PATIENT WAS FASTINGC linical Information: ADD 502561, [id number] PERFORMED BY: [facility] Oxliba1254 So [facility] [id number] AST [Catalytic activity/Vol] 35 U/L Normal 0-40 [facility]; [facility] Work Phone: Comment on above: PATIENT WAS FASTINGC linical Information: ADD 425559, [id number] PERFORMED BY: [facility] Rdzzze4522 [facility] [id number] Bilirubin [Mass/Vol] 0.7 mg/dL Normal 0.1-1.2 [facility] Work Phone: Comment on above: PATIENT WAS FASTINGC linical Information: ADD 101531, [id number] PERFORMED BY: [facility]6370 [facility] [id number] Calcium [Mass/Vol] 9.9 mg/dL Normal 8.5-10.6 [facility] Work Phone: Comment on above: PATIENT WAS FASTINGC linical Information: ADD 022265, [id number] PERFORMED BY: [facility] Hwowbr5152 [facility] [id number] Chloride [Moles/Vol] 102 mmol/L Normal 97-108 [facility] Work Phone: Comment on above: PATIENT WAS FASTINGC linical Information: ADD 308248, [id number] PERFORMED BY: [facility]CoEs[facility] HospitalUwmrwj6123 [facility] [id number] CO2 [Moles/Vol] 24 mmol/L Normal 20-32 [facility] Work Phone: Comment on above: PATIENT WAS FASTINGC linical Information: ADD 477653, [id number] PERFORMED BY: [facility] Yvwocj4467 [facility] [id number] Creatinine [Mass/Vol] 0.67 mg/dL Normal 0.57-1.00 [facility] Work Phone: Comment on above: PATIENT WAS FASTINGC linical Information: ADD 089188, [id number] PERFORMED BY: RAOUL [facility] Mfxplc4764 So [facility] [id number] GFR/1.73 sq M predicted among blacks MDRD (S/P/Bld) [Vol rate/Area] mL/min/{1.73_m2} Normal [facility] Work Phone: Comment on above: Note: Persistent red uction for 3 months or more in an eGFR<60 mL/min/1.73 m2 defines CKD. Patients with eGFR values>/=60 mL/min/1.73 m2 may also have CKD if evidence of persistentproteinuria is present. Additional information may be found [email or web address]. PATIENT WAS FASTINGC linical Information: ADD 930881, [id number] PERFORMED BY: RAOUL [facility] Iahssf9361 So [facility]uuSc[facility] [id number] GFR/1.73 sq M.predicted MDRD (S/P/Bld) [Vol rate/Area] mL/min/{1.73_m2} Normal [facility] Work Phone: Comment on above: PATIENT WAS FASTINGC linical Information: ADD 153920, [id number] PERFORMED BY: RAOUL [facility] Fwcrfw3767 So [facility]Sc[facility] [id number] Globulin (S) [Mass/Vol] 2.9 g/dL Normal 1.5-4.5 [facility] Work Phone: Comment on above: PATIENT WAS FASTINGC linical Information: ADD 513980, [id number] PERFORMED BY: RAOUL [facility] Rqtoby5136 [facility] [id number] Glucose [Mass/Vol] 150 mg/dL Abnormal 65-99 [facility] Work Phone: Comment on above: PATIENT WAS FASTINGC linical Information: ADD 951119, [id number] PERFORMED BY: [facility] Dvwvas3366 [facility] [id number] Potassium [Moles/Vol] 4.2 mmol/L Normal 3.5-5.2 [facility] Work Phone: Comment on above: PATIENT WAS FASTINGC linical Information: ADD 092334, [id number] PERFORMED BY: LabTelespree Vukdfv7350 So BlizuuUn[facility] Healthin [place] [id number] Protein [Mass/Vol] 7.2 g/dL Normal 6.0-8.5 [facility] Work Phone: Comment on above: PATIENT WAS FASTINGC linical Information: ADD 902647, [id number] PERFORMED BY: LabTelesp[facility] Dknyzu9219 So [facility]uuUn[facility] Healthin [place] [id number] Sodium [Moles/Vol] 142 mmol/L Normal 135-145 [facility] Work Phone: Comment on above: PATIENT WAS FASTINGC linical Information: ADD 007046, [id number] PERFORMED BY: LabTelespree Efjdde5108 So [facility]Sc[facility] [id number] Urea nitrogen [Mass/Vol] 22 mg/dL Normal 5-26 [facility] Medicine Work Phone: Comment on above: PATIENT WAS FASTINGC linical Information: ADD 466365, [id number] PERFORMED BY: LabTelespree Otipwx7732 [facility] [id number] Urea nitrogen/Creatinine [Mass ratio] 33 mg/mg Abnormal 8-27 [facility] Work Phone: Comment on above: PATIENT WAS FASTINGC linical Information: ADD 060994, [id number] PERFORMED BY: LabTelespree Xdftot3703 [facility] [id number] Vitamin D Hydroxy (56703)Ord ered By: Maria Del Rosario Machado on 08-22-2009 Calcitriol [Mass/Vol] 34.5 ng/mL Normal 32.0-100.0 [facility] Work Phone: Comment on above: Recent studies consi andreas the lower limit of 32.0 ng/mL to be athreshold for optimal health.Cheo MARIE. J Nutr. 2005 Dec;135(2):317-22. PATIENT WAS FASTINGP ERFORMED BY: RAOUL [facility] Kxsnol4018 [facility] [id number] Blood Glucose , Office (8296 2)Ordered By: Poonam Mae on 06-04-2009 Glucose Glucometer (BldC) [Moles/Vol] 128 1 Normal [facility] Work Phone: HgA1C , Office (00297)Ordere d By: Poonam Mae on 06-04-2009 HbA1c (Bld) [Mass fraction] 6.1 % Normal 4.6 - 7.1 [facility] Work Phone: Blood Glucose , Office (8214 2)Ordered By: Poonam Mae on 03-05-2009 Glucose Glucometer (BldC) [Moles/Vol] 152 1 Normal [facility] Work Phone: HgA1C , Office (68078)Ordere d By: Poonam Mae on 03-05-2009 HbA1c (Bld) [Mass fraction] 6.2 % Normal 4.6 - 7.1 [facility] Work Phone: HEPATIC FUNCTION PANEL (6130 6)Ordered By: Maria Del Rosario Fast on 02-26-2009 Bilirubin.direct [Mass/Vol] 0.25 mg/dL Normal 0.00-0.40 [facility] Work Phone: Comment on above: PATIENT WAS FASTINGP ERFORMED BY: RAOUL [facility] Hdfdyf5720 [facility] [id number] LIPID PANEL (04995)Ordered B y: Maria Del Rosario Fast on 02-26-2009 Cholesterol [Mass/Vol] 161 mg/dL Normal 100-199 [facility] Work Phone: Comment on above: PATIENT WAS FASTINGP ERFORMED BY: RAOUL [facility] Upqbrh9375 [facility] [id number] Cholesterol in HDL [Mass/Vol] 44 mg/dL Normal [facility] Work Phone: Comment on above: According to ATP-III Guidelines, HDL-C >59 mg/dL is considered anegative risk factor for CHD. PATIENT WAS FASTINGP ERFORMED BY: RAOUL [facility] Numehr3933 [facility] [id number] Cholesterol in LDL [Mass/Vol] 89 mg/dL Normal 0-99 [facility] Work Phone: Comment on above: PATIENT WAS FASTINGP ERFORMED BY: LabCoEs[facility] County HospitalTkefsr4527 [facility] [id number] Cholesterol in LDL/Cholesterol in HDL [Mass ratio] 2.0 {ratio_units} Normal 0.0-3.2 [facility] Work Phone: Comment on above: PATIENT WAS FASTINGP ERFORMED BY: LabBr[facility] Hospital6370 [facility] [id number] Cholesterol in VLDL [Mass/Vol] 28 mg/dL Normal 5-40 [facility] Work Phone: Comment on above: PATIENT WAS FASTINGP ERFORMED BY: [facility]Br[facility] Hospital6370 [facility] [id number] Triglyceride [Mass/Vol] 142 mg/dL Normal 0-149 [facility] Work Phone: Comment on above: PATIENT WAS FASTINGP ERFORMED BY: LabBr[facility] Hospital6370 [facility] [id number] METABOLIC PANEL, COMPREHENSI VE (27073)Ordered By: Maria Del Rosario Machado on 02-26-2009 Albumin [Mass/Vol] 4.3 g/dL Normal 3.6-4.8 [facility] Work Phone: Comment on above: PATIENT WAS FASTINGC linical Information: ADD DRAW FEE 139978 ADD J 40050 PERFORMED BY: [facility] Hospital6370 [facility] [id number] Albumin/Globulin [Mass ratio] 1.4 {ratio} Normal 1.1-2.5 [facility] Work Phone: Comment on above: PATIENT WAS FASTINGC linical Information: ADD DRAW FEE 313598 ADD J 76341 PERFORMED BY: LabBr[facility] Hospital6370 [facility] [id number] ALP [Catalytic activity/Vol] 83 [iU]/L Normal 25-165 [facility] Work Phone: Comment on above: PATIENT WAS FASTINGC linical Information: ADD DRAW FEE 684171 ADD J 79870 PERFORMED BY: RAOUL Velasquez Lplyty6816 [facility] [id number] ALP [Catalytic activity/Vol] 83 U/L Normal 25-165 [facility]; [facility] Work Phone: Comment on above: PATIENT WAS FASTINGC linical Information: ADD DRAW FEE 266076 ADD J 41605 PERFORMED BY: RAOUL [facility] Wdviux77[address] [id number] ALT [Catalytic activity/Vol] 65 [iU]/L Abnormal 0-40 [facility] Work Phone: Comment on above: PATIENT WAS FASTINGC linical Information: ADD DRAW FEE 737387 ADD J 68199 PERFORMED BY: RAOUL [facility] Hhlpcw3867 [facility] [id number] ALT [Catalytic activity/Vol] 65 U/L Abnormal 0-40 [facility]; [facility] Work Phone: Comment on above: PATIENT WAS FASTINGC linical Information: ADD DRAW FEE 085326 ADD J 23672 PERFORMED BY: RAOUL [facility] Zlthwk6941 [facility] [id number] AST [Catalytic activity/Vol] 58 [iU]/L Abnormal 0-40 [facility] Work Phone: Comment on above: PATIENT WAS FASTINGC linical Information: ADD DRAW FEE 454907 ADD J 40666 PERFORMED BY: [address] [id number] AST [Catalytic activity/Vol] 58 U/L Abnormal 0-40 [facility]; [facility] Work Phone: Comment on above: PATIENT WAS FASTINGC linical Information: ADD DRAW FEE 728716 ADD J 35766 PERFORMED BY: [address] [id number] Bilirubin [Mass/Vol] 0.8 mg/dL Normal 0.1-1.2 Comp [facility] Internal Medicine Work Phone: Comment on above: PATIENT WAS FASTINGC linical Information: ADD DRAW FEE 040602 ADD J 49312 PERFORMED BY: ALTO CINCOEssex County HospitalTkeslx1845 [facility] [id number] Calcium [Mass/Vol] 9.8 mg/dL Normal 8.5-10.6 [facility] Work Phone: Comment on above: PATIENT WAS FASTINGC linical Information: ADD DRAW FEE 092073 ADD J 10884 PERFORMED BY: LabCoEssex County HospitalOehefi2395 [facility] [id number] Chloride [Moles/Vol] 103 mmol/L Normal 97-108 [facility] Work Phone: Comment on above: PATIENT WAS FASTINGC linical Information: ADD DRAW FEE 377258 ADD J 94702 PERFORMED BY: LabTelespreeEssex County HospitalNrovuz5611 [facility] [id number] CO2 [Moles/Vol] 24 mmol/L Normal 20-32 [facility] Work Phone: Comment on above: PATIENT WAS FASTINGC linical Information: ADD DRAW FEE 792081 ADD J 90559 PERFORMED BY: LabTelespreeEssex County HospitalNmehnh3968 [facility] [id number] Creatinine [Mass/Vol] 0.67 mg/dL Normal 0.57-1.00 [facility] Work Phone: Comment on above: PATIENT WAS FASTINGC linical Information: ADD DRAW FEE 741051 ADD J 15496 PERFORMED BY: LabChristina Ville 2137670 [facility] [id number] GFR/1.73 sq M predicted among blacks MDRD (S/P/Bld) [Vol rate/Area] mL/min/{1.73_m2} Normal [facility] Work Phone: Comment on above: Note: Persistent red uction for 3 months or more in an eGFR<60 mL/min/1.73 m2 defines CKD. Patients with eGFR values>/=60 mL/min/1.73 m2 may also have CKD if evidence of persistentproteinuria is present. Additional information may be found [email or web address]. PATIENT WAS FASTINGC linical Information: ADD DRAW FEE 594193 ADD J 93902 PERFORMED BY: [facility]6370 [facility] [id number] GFR/1.73 sq M.predicted MDRD (S/P/Bld) [Vol rate/Area] mL/min/{1.73_m2} Normal [facility] Work Phone: Comment on above: PATIENT WAS FASTINGC linical Information: ADD DRAW FEE 104096 ADD J 91883 PERFORMED BY: [address] [id number] Globulin (S) [Mass/Vol] 3.0 g/dL Normal 1.5-4.5 [facility] Work Phone: Comment on above: PATIENT WAS FASTINGC linical Information: ADD DRAW FEE 243989 ADD J 14616 PERFORMED BY: [address] [id number] Glucose [Mass/Vol] 115 mg/dL Abnormal 65-99 [facility] Work Phone: Comment on above: PATIENT WAS FASTINGC linical Information: ADD DRAW FEE 875593 ADD J 68024 PERFORMED BY: [address] [id number] Potassium [Moles/Vol] 4.0 mmol/L Normal 3.5-5.2 [facility] Work Phone: Comment on above: PATIENT WAS FASTINGC linical Information: ADD DRAW FEE 102914 ADD J 24305 PERFORMED BY: [address] [id number] Protein [Mass/Vol] 7.3 g/dL Normal 6.0-8.5 [facility] Work Phone: Comment on above: PATIENT WAS FASTINGC linical Information: ADD DRAW FEE 940848 ADD J 40268 PERFORMED BY: [address] [id number] Sodium [Moles/Vol] 142 mmol/L Normal 135-145 [facility] Work Phone: Comment on above: PATIENT WAS FASTINGC linical Information: ADD DRAW FEE 212179 ADD J 42854 PERFORMED BY: [employer] Dcgouc0874 So [employer] Consultingbl[employer] [place] [id number] Urea nitrogen [Mass/Vol] 19 mg/dL Normal 5-26 [facility] Work Phone: Comment on above: PATIENT WAS FASTINGC linical Information: ADD DRAW FEE 845091 ADD J 62803 PERFORMED BY: [facility] Asiukm2913 So [employer] Consultingbl[employer] [place] [id number] Urea nitrogen/Creatinine [Mass ratio] 28 mg/mg Abnormal 8-27 [facility] Work Phone: Comment on above: PATIENT WAS FASTINGC linical Information: ADD DRAW FEE 723905 ADD J 57648 PERFORMED BY: [facility] Hihukp7925 [facility] [id number] Vitamin D Hydroxy (32458)Ord ered By: Maria Del Rosario Machado on 02-26-2009 Calcitriol [Mass/Vol] 16.3 ng/mL Abnormal 32.0-100.0 [facility] prehensive Internal Medicine Work Phone: Comment on above: Recent studies consi andreas the lower limit of 32.0 ng/mL to be athreshold for optimal health.Cheo MARIE. J Nutr. 2004;135(2):317-22. PATIENT WAS FASTINGP ERFORMED BY: RAOUL LabTelespree Uytwdb2320 [facility] [id number] Blood Glucose , Office (1396 2)Ordered By: Poonam Mae on 12-04-2008 Glucose Glucometer (BldC) [Moles/Vol] 151 1 Normal [facility] Work Phone: HEPATIC FUNCTION PANEL (3028 6)Ordered By: Maria Del Rosario Machado on 12-04-2008 Bilirubin.direct [Mass/Vol] 0.22 mg/dL Normal 0.00-0.40 [facility] Work Phone: Comment on above: PATIENT WAS FASTINGP ERFORMED BY: [facility] Tyihdd2793 [facility] [id number] HgA1C , Office (92779)Ordere d By: Poonam Mae on 12-04-2008 HbA1c (Bld) [Mass fraction] 6.1 % Normal 4.6 - 7.1 [facility] Work Phone: LIPID PANEL (39534)Ordered B y: Maria Del Rosario Machado on 12-04-2008 Cholesterol [Mass/Vol] 183 mg/dL Normal 100-199 [facility] Work Phone: Comment on above: PATIENT WAS FASTINGP ERFORMED BY: CB [facility] Clrojh0121 So BlizuuDublin [place] [id number] Cholesterol in HDL [Mass/Vol] 43 mg/dL Normal [facility] Work Phone: Comment on above: According to ATP-III Guidelines, HDL-C >59 mg/dL is considered anegative risk factor for CHD. PATIENT WAS FASTINGP ERFORMED BY: CB [facility] Oehgvq2086 So BlizuuDublin [place] [id number] Cholesterol in LDL [Mass/Vol] 113 mg/dL Abnormal 0-99 [facility] Work Phone: Comment on above: PATIENT WAS FASTINGP ERFORMED BY: CB [facility] Lfruaq8571 [address] BlizuuDublin [place] [id number] Cholesterol in LDL/Cholesterol in HDL [Mass ratio] SPRCS Normal [facility] Work Phone: Comment on above: If initial LDL-alon sterol result is >100 mg/dL, assess forrisk factors. PATIENT WAS FASTINGP ERFORMED BY: CB [facility] Ssyhbc6813 [address] [employer] [id number] Cholesterol in LDL/Cholesterol in HDL [Mass ratio] 2.6 {ratio_units} Normal 0.0-3.2 [facility] Work Phone: Comment on above: PATIENT WAS FASTINGP ERFORMED BY: CB [facility] Ajnpyc8644 So [place] [id number] Cholesterol in VLDL [Mass/Vol] 27 mg/dL Normal 5-40 [facility] Work Phone: Comment on above: PATIENT WAS FASTINGP ERFORMED BY: CB [facility] Rnlzyl6809 [address] [place] [id number] Triglyceride [Mass/Vol] 136 mg/dL Normal 0-149 [facility] Work Phone: Comment on above: PATIENT WAS FASTINGP ERFORMED BY: RAOUL Cuevalin6370 [facility] [id number] METABOLIC PANEL, COMPREHENSI VE ([id number])Ordered By: Maria Del Rosario Machado on 12-04-2008 Albumin [Mass/Vol] 4.3 g/dL Normal 3.6-4.8 [facility] Internal Medicine Work Phone: Comment on above: PATIENT WAS FASTINGC linical Information: ADD DRAW FEE [id number] ADD J [id number] PERFORMED BY: RAOUL Cuevalin6370 [facility] [id number] Albumin/Globulin [Mass ratio] 1.5 {ratio} Normal 1.1-2.5 [facility] Work Phone: Comment on above: PATIENT WAS FASTINGC linical Information: ADD DRAW FEE [id number] ADD J 89315 PERFORMED BY: RAOUL LabMariangel CuevaMavvwa0350 [facility] [id number] ALP [Catalytic activity/Vol] 86 [iU]/L Normal 25-165 [facility] Work Phone: Comment on above: PATIENT WAS FASTINGC linical Information: ADD DRAW FEE [id number] ADD J 95534 PERFORMED BY: RAOUL LabAshly Irgfwt1201 [facility] [id number] ALP [Catalytic activity/Vol] 86 U/L Normal 25-165 [facility]; [facility] Work Phone: Comment on above: PATIENT WAS FASTINGC linical Information: ADD DRAW FEE 486575 ADD J 82128 PERFORMED BY: RAOUL [facility] Kgflsf0771 [facility] [id number] ALT [Catalytic activity/Vol] 66 [iU]/L Abnormal 0-40 [facility] Work Phone: Comment on above: PATIENT WAS FASTINGC linical Information: ADD DRAW FEE 375284 ADD J 45067 PERFORMED BY: RAOUL [facility] Glsmxs9982 [facility] [id number] ALT [Catalytic activity/Vol] 66 U/L Abnormal 0-40 [facility]; [facility] Work Phone: Comment on above: PATIENT WAS FASTINGC linical Information: ADD DRAW FEE [id number] ADD J 95559 PERFORMED BY: RAOUL [facility]6370 [facility] [id number] AST [Catalytic activity/Vol] 56 [iU]/L Abnormal 0-40 [facility] Work Phone: Comment on above: PATIENT WAS FASTINGC linical Information: ADD DRAW FEE [id number] ADD J 53138 PERFORMED BY: LabChristina [place] 2137670 [facility] [id number] AST [Catalytic activity/Vol] 56 U/L Abnormal 0-40 [facility]; [facility] Work Phone: Comment on above: PATIENT WAS FASTINGC linical Information: ADD DRAW FEE 655407 ADD J 32936 PERFORMED BY: RAOUL [address] [id number] Bilirubin [Mass/Vol] 0.8 mg/dL Normal 0.1-1.2 Comp rehensive Internal Medicine Work Phone: Comment on above: PATIENT WAS FASTINGC linical Information: ADD DRAW FEE 360446 ADD J 28448 PERFORMED BY: [place] 8070170 [facility] [id number] Calcium [Mass/Vol] 9.9 mg/dL Normal 8.5-10.6 [facility] Internal Medicine Work Phone: Comment on above: PATIENT WAS FASTINGC linical Information: ADD DRAW FEE 288888 ADD J 48113 PERFORMED BY: LabChristina [place] 2137670 [facility] [id number] Chloride [Moles/Vol] 104 mmol/L Normal 97-108 Comp rehensive Internal Medicine Work Phone: Comment on above: PATIENT WAS FASTINGC linical Information: ADD DRAW FEE 187224 ADD J 21352 PERFORMED BY: Lab[address] [id number] CO2 [Moles/Vol] 25 mmol/L Normal 20-32 Comprehen martinez Internal Medicine Work Phone: Comment on above: PATIENT WAS FASTINGC linical Information: ADD DRAW FEE 818967 ADD J 31217 PERFORMED BY: ALTO CINCO Urreqk0853 [facility] [id number] Creatinine [Mass/Vol] 0.70 mg/dL Normal 0.57-1.00 [facility] prehensive Internal Medicine Work Phone: Comment on above: PATIENT WAS FASTINGC linical Information: ADD DRAW FEE 475668 ADD J 06557 PERFORMED BY: ALTO CINCO Izgjlr[address] [id number] GFR/1.73 sq M predicted among blacks MDRD (S/P/Bld) [Vol rate/Area] mL/min/{1.73_m2} Normal [facility] Work Phone: Comment on above: Note: Persistent red uction for 3 months or more in an eGFR<60 mL/min/1.73 m2 defines CKD. Patients with eGFR values>/=60 mL/min/1.73 m2 may also have CKD if evidence of persistentproteinuria is present. Additional information may be found [email or web address]. PATIENT WAS FASTINGC linical Information: ADD DRAW FEE 465478 ADD J 18747 PERFORMED BY: ALTO CINCO Azeszf6963 [facility] [id number] GFR/1.73 sq M.predicted MDRD (S/P/Bld) [Vol rate/Area] mL/min/{1.73_m2} Normal [facility] Work Phone: Comment on above: PATIENT WAS FASTINGC linical Information: ADD DRAW FEE 356361 ADD J 08984 PERFORMED BY: ALTO CINCO Vywoct1668 [facility] [id number] Globulin (S) [Mass/Vol] 2.9 g/dL Normal 1.5-4.5 [facility] Internal Medicine Work Phone: Comment on above: PATIENT WAS FASTINGC linical Information: ADD DRAW FEE 255566 ADD J 86039 PERFORMED BY: ALTO CINCO Wpxqfy32[address] [id number] Glucose [Mass/Vol] 143 mg/dL Abnormal 65-99 [facility] Internal Medicine Work Phone: Comment on above: PATIENT WAS FASTINGC linical Information: ADD DRAW FEE 844149 ADD J 94580 PERFORMED BY: RAOUL LabCoEssex County HospitalEyrxky8651 [facility] [id number] Potassium [Moles/Vol] 4.1 mmol/L Normal 3.5-5.2 [facility] Internal Medicine Work Phone: Comment on above: PATIENT WAS FASTINGC linical Information: ADD DRAW FEE 389755 ADD J 03512 PERFORMED BY: RAOUL LabCoTimothy Ville 6046270 [facility] [id number] Protein [Mass/Vol] 7.2 g/dL Normal 6.0-8.5 [facility] Internal Medicine Work Phone: Comment on above: PATIENT WAS FASTINGC linical Information: ADD DRAW FEE 730329 ADD J 54357 PERFORMED BY: LabChristina [place] 2137670 [facility] [id number] Sodium [Moles/Vol] 141 mmol/L Normal 135-145 [facility] Internal Medicine Work Phone: Comment on above: PATIENT WAS FASTINGC linical Information: ADD DRAW FEE 806377 ADD J 49277 PERFORMED BY: RAOUL LabCoEssex County HospitalJmkkxb5504 [facility] [id number] Urea nitrogen [Mass/Vol] 15 mg/dL Normal 5-26 [facility] Internal Medicine Work Phone: Comment on above: PATIENT WAS FASTINGC linical Information: ADD DRAW FEE 630335 ADD J 54921 PERFORMED BY: LabCoEssex County HospitalHbndji1147 [facility] [id number] Urea nitrogen/Creatinine [Mass ratio] 21 mg/mg Normal 8-27 [facility] Work Phone: Comment on above: PATIENT WAS FASTINGC linical Information: ADD DRAW FEE 275674 ADD J 34254 PERFORMED BY: Lab[facility] Ydobfp3148 [facility] [id number] TSH ([id number])Ordered By: Maria Del Rosario Machado on 12-04-2008 TSH Qn 2.145 {uIU/mL} Normal 0.450-4.50 0 [facility] Work Phone: Comment on above: PATIENT WAS FASTINGP ERFORMED BY: [facility] Rreemb4924 [facility] [id number] Vitamin D Hydroxy (79432)Ord ered By: Maria Del Rosario Fast on 12-04-2008 Calcitriol [Mass/Vol] 6.4 ng/mL Abnormal 32.0-100.0 [facility] prehensive Internal Medicine Work Phone: Comment on above: Recent studies consi andreas the lower limit of 32.0 ng/mL to be athreshold for optimal health.Cheo MARIE. J Nutr. 2004;135(2):317-22. PATIENT WAS FASTINGP ERFORMED BY: LabTelespreeEssex County HospitalJzscbv1763 [facility] [id number] CBC WITH MANUAL DIFF ([id number]) Ordered By: Maria Del Rosario Fast on 07-28-2008 Basophils (Bld) [#/Vol] 0.1 {x10E3/uL} Normal 0.0-0.2 [facility] Work Phone: Comment on above: PATIENT WAS FASTINGP ERFORMED BY: [facility]6370 [facility] [id number] Basophils (Bld) [#/Vol] 0.1 10*3/uL Normal 0.0-0.2 [facility]; [facility] Work Phone: Comment on above: PATIENT WAS FASTINGP ERFORMED BY: [facility] Hospital6370 [facility] [id number] Basophils/100 WBC (Bld) 1 % Normal 0-3 [facility] Work Phone: Comment on above: PATIENT WAS FASTINGP ERFORMED BY: [facility] Hospital6370 [facility] [id number] Eosinophils (Bld) [#/Vol] 0.3 {x10E3/uL} Normal 0.0-0.4 [facility] Work Phone: Comment on above: PATIENT WAS FASTINGP ERFORMED BY: [facility]6370 [facility] [id number] Eosinophils (Bld) [#/Vol] 0.3 10*3/uL Normal 0.0-0.4 [facility]; [facility] Work Phone: Comment on above: PATIENT WAS FASTINGP ERFORMED BY: [facility]6370 [facility] [id number] Eosinophils/100 WBC (Bld) 4 % Normal 0-7 [facility] Work Phone: Comment on above: PATIENT WAS FASTINGP ERFORMED BY: [place] 8070170 [facility] [id number] Erythrocyte distribution width (RBC) [Ratio] 13.7 % Normal 11.7-15.0 [facility] Work Phone: Comment on above: PATIENT WAS FASTINGP ERFORMED BY: [place] 8070170 [facility] [id number] Hematocrit (Bld) [Volume fraction] 39.3 % Normal 34.0-44.0 [facility] Work Phone: Comment on above: PATIENT WAS FASTINGP ERFORMED BY: [facility]6370 [facility] [id number] Hemoglobin (Bld) [Mass/Vol] 13.3 g/dL Normal 11.5-15.0 [facility] Work Phone: Comment on above: PATIENT WAS FASTINGP ERFORMED BY: LabChristina [place] 2137670 [facility] [id number] Lymphocytes (Bld) [#/Vol] 2.2 {x10E3/uL} Normal 0.7-4.5 [facility] Work Phone: Comment on above: PATIENT WAS FASTINGP ERFORMED BY: LabChristina [place] 2137670 [facility] [id number] Lymphocytes (Bld) [#/Vol] 2.2 10*3/uL Normal 0.7-4.5 [facility]; [facility] Work Phone: Comment on above: PATIENT WAS FASTINGP ERFORMED BY: RAOUL [facility]Co Eeecbx6962 So [facility] [id number] Lymphocytes/100 WBC (Bld) 32 % Normal 14-46 [facility] Work Phone: Comment on above: PATIENT WAS FASTINGP ERFORMED BY: RAOUL LabCoEssex County HospitalYhbabw3846 [facility] [id number] MCH (RBC) [Entitic mass] 30.0 pg Normal 27.0-34.0 [facility] Internal Medicine Work Phone: Comment on above: PATIENT WAS FASTINGP ERFORMED BY: LabCoEssex County HospitalVjpfhe3885 [facility] [id number] MCHC (RBC) [Mass/Vol] 33.8 g/dL Normal 32.0-36.0 [facility] Internal Medicine Work Phone: Comment on above: PATIENT WAS FASTINGP ERFORMED BY: [facility]6370 [facility] [id number] MCV (RBC) [Entitic vol] 89 fL Normal 80-98 [facility] Work Phone: Comment on above: PATIENT WAS FASTINGP ERFORMED BY: RAOUL [facility]Br[facility] Hospital6370 [facility] [id number] Monocytes (Bld) [#/Vol] 0.7 {x10E3/uL} Normal 0.1-1.0 [facility] Work Phone: Comment on above: PATIENT WAS FASTINGP ERFORMED BY: LabCoEssex County HospitalMjkalw1446 [facility] [id number] Monocytes (Bld) [#/Vol] 0.7 10*3/uL Normal 0.1-1.0 [facility]; [facility] Work Phone: Comment on above: PATIENT WAS FASTINGP ERFORMED BY: [facility] Tqmlkl3283 [facility] [id number] Monocytes/100 WBC (Bld) 10 % Normal 4-13 [facility] Work Phone: Comment on above: PATIENT WAS FASTINGP ERFORMED BY: RAOUL [facility] Drgdkp8281 So RoadDublin [place] [id number] Neutrophils (Bld) [#/Vol] 3.7 {x10E3/uL} Normal 1.8-7.8 [facility] Work Phone: Comment on above: PATIENT WAS FASTINGP ERFORMED BY: [facility] Qnvyfq2706 So RoadDublin [place] [id number] Neutrophils (Bld) [#/Vol] 3.7 10*3/uL Normal 1.8-7.8 [facility]; [facility] Work Phone: Comment on above: PATIENT WAS FASTINGP ERFORMED BY: RAOUL [facility] Loovzq9058 So RoadDublin [place] [id number] Neutrophils/100 WBC (Bld) 53 % Normal 40-74 [facility] Work Phone: Comment on above: PATIENT WAS FASTINGP ERFORMED BY: [facility] Ewjrti0618 So RoadD[address] [place] [id number] Platelets (Bld) [#/Vol] 191 {x10E3/uL} Normal 140-415 [facility] Work Phone: Comment on above: PATIENT WAS FASTINGP ERFORMED BY: [facility] Gjdmso0204 So RoadDublin [place] [id number] Platelets (Bld) [#/Vol] 191 10*3/uL Normal 140-415 [facility]; [facility] Work Phone: Comment on above: PATIENT WAS FASTINGP ERFORMED BY: [facility] Hheqky5926 So RoadDublin [place] [id number] RBC (Bld) [#/Vol] 4.43 {x10E6/uL} Normal 3.80-5.10 [facility] Internal Medicine Work Phone: Comment on above: PATIENT WAS FASTINGP ERFORMED BY: CB [facility] Nqcupq3774 So RoadDublin [place] [id number] RBC (Bld) [#/Vol] 4.43 10*6/uL Normal 3.80-5.10 [facility]; [facility] Work Phone: Comment on above: PATIENT WAS FASTINGP ERFORMED BY: RAOUL Cowan6370 [facility] [id number] WBC (Bld) [#/Vol] 7.0 {x10E3/uL} Normal 4.0-10.5 [facility] Work Phone: Comment on above: PATIENT WAS FASTINGP ERFORMED BY: RAOUL Cuevalin6370 [facility] [id number] WBC (Bld) [#/Vol] 7.0 10*3/uL Normal 4.0-10.5 [facility] Internal Medicine; [facility] Work Phone: Comment on above: PATIENT WAS FASTINGP ERFORMED BY: RAOUL Cuevalin6370 [facility] [id number] LIPID PANEL (31043)Ordered B y: Maria Del Rosario Fast on 07-28-2008 Cholesterol [Mass/Vol] 219 mg/dL Abnormal 100-199 [facility] Work Phone: Comment on above: PATIENT WAS FASTINGP ERFORMED BY: RAOUL Cowan6370 [facility] [id number] Cholesterol in HDL [Mass/Vol] 42 mg/dL Normal 40-59 [facility] Work Phone: Comment on above: PATIENT WAS FASTINGP ERFORMED BY: RAOUL Cuevalin6370 [facility] [id number] Cholesterol in LDL [Mass/Vol] 144 mg/dL Abnormal 0-99 [facility] Work Phone: Comment on above: PATIENT WAS FASTINGP ERFORMED BY: RAOUL LabMariangel CuevaUaifft5999 [facility] [id number] Cholesterol in LDL/Cholesterol in HDL [Mass ratio] SPRCS Normal [facility] Work Phone: Comment on above: If initial LDL-alon sterol result is >100 mg/dL, assess forrisk factors. PATIENT WAS FASTINGP ERFORMED BY: RAOUL [facility]Br[facility] Hospital6370 [facility] [id number] Cholesterol in LDL/Cholesterol in HDL [Mass ratio] 3.4 {ratio_units} Abnormal 0.0-3.2 [facility] Work Phone: Comment on above: PATIENT WAS FASTINGP ERFORMED BY: RAOUL [facility] Kxinhh2423 [facility] [id number] Cholesterol in VLDL [Mass/Vol] 33 mg/dL Normal 5-40 [facility] Work Phone: Comment on above: PATIENT WAS FASTINGP ERFORMED BY: [facility] Itxnbt1277 [facility] [id number] Triglyceride [Mass/Vol] 163 mg/dL Abnormal 0-149 [facility] Work Phone: Comment on above: PATIENT WAS FASTINGP ERFORMED BY: RAOUL [facility] Tnheqg2719 [facility] [id number] METABOLIC PANEL, COMPREHENSI VE ([id number])Ordered By: Maria Del Rosario Machado on 07-28-2008 Albumin [Mass/Vol] 4.4 g/dL Normal 3.6-4.8 [facility] Internal Medicine Work Phone: Comment on above: PATIENT WAS FASTINGP ERFORMED BY: RAOUL [facility] Sgdyem3187 [facility] [id number] Albumin/Globulin [Mass ratio] 1.4 {ratio} Normal 1.1-2.5 [facility] Work Phone: Comment on above: PATIENT WAS FASTINGP ERFORMED BY: RAOUL [facility] Eypyqa0368 [facility] [id number] ALP [Catalytic activity/Vol] 97 [iU]/L Normal 25-165 [facility] Work Phone: Comment on above: PATIENT WAS FASTINGP ERFORMED BY: RAOUL [facility] Djraif1588 [facility] [id number] ALP [Catalytic activity/Vol] 97 U/L Normal 25-165 [facility]; [facility] Work Phone: Comment on above: PATIENT WAS FASTINGP ERFORMED BY: RAOUL [facility] Vgdacl9280 So Roadblin [place] [id number] ALT [Catalytic activity/Vol] 76 [iU]/L Abnormal 0-40 [facility] Work Phone: Comment on above: PATIENT WAS FASTINGP ERFORMED BY: RAOUL Cuevalin6370 So RoadDublin [place] [id number] ALT [Catalytic activity/Vol] 76 U/L Abnormal 0-40 [facility]; [facility] Work Phone: Comment on above: PATIENT WAS FASTINGP ERFORMED BY: [facility] Odlmho2818 So Roadblin [place] [id number] AST [Catalytic activity/Vol] 78 [iU]/L Abnormal 0-40 [facility] Work Phone: Comment on above: PATIENT WAS FASTINGP ERFORMED BY: RAOUL Arcelia Ddhlnd3290 So RoadUnc Healthin [place] [id number] AST [Catalytic activity/Vol] 78 U/L Abnormal 0-40 [facility]; [facility] Internal Medicine Work Phone: Comment on above: PATIENT WAS FASTINGP ERFORMED BY: RAOUL [facility]Centerpo[facility] Qwxeum6909 So RoadUnc Healthin [place] [id number] Bilirubin [Mass/Vol] 0.8 mg/dL Normal 0.1-1.2 [facility] Work Phone: Comment on above: PATIENT WAS FASTINGP ERFORMED BY: [facility]6370 [address] Roadbl[address] [place] [id number] Calcium [Mass/Vol] 9.9 mg/dL Normal 8.5-10.6 [facility] Internal Medicine Work Phone: Comment on above: PATIENT WAS FASTINGP ERFORMED BY: [facility] Odoqni5691 So RoadDublin [place] [id number] Chloride [Moles/Vol] 105 mmol/L Normal 97-108 [facility] Work Phone: Comment on above: PATIENT WAS FASTINGP ERFORMED BY: [facility] Ynbdfz0957 So RoadDublin [place] [id number] CO2 [Moles/Vol] 24 mmol/L Normal 20-32 [facility] Internal Medicine Work Phone: Comment on above: PATIENT WAS FASTINGP ERFORMED BY: RAOUL PanOpticaBr[facility] Hospital6370 [facility] [id number] Creatinine [Mass/Vol] 0.60 mg/dL Normal 0.57-1.00 [facility] Internal Medicine Work Phone: Comment on above: PATIENT WAS FASTINGP ERFORMED BY: RAOUL LabBr[facility] Hospital6370 [facility] [id number] GFR/1.73 sq M predicted among blacks MDRD (S/P/Bld) [Vol rate/Area] mL/min/{1.73_m2} Normal 60-128 [facility] Internal Medicine Work Phone: Comment on above: Note: Persistent red uction for 3 months or more in an eGFR<60 mL/min/1.73 m2 defines CKD. Patients with eGFR values>/=60 mL/min/1.73 m2 may also have CKD if evidence of persistentproteinuria is present. Additional information may be found [email or web address]. PATIENT WAS FASTINGP ERFORMED BY: RAOUL [facility]Centerpo[facility] Hospital Xffvum9775 [facility] [id number] GFR/1.73 sq M.predicted MDRD (S/P/Bld) [Vol rate/Area] mL/min/{1.73_m2} Normal 60-128 [facility] Internal Medicine Work Phone: Comment on above: PATIENT WAS FASTINGP ERFORMED BY: RAOUL [facility]Centerpo[facility] Hospital Yraaci0215 [facility] [id number] Globulin (S) [Mass/Vol] 3.1 g/dL Normal 1.5-4.5 [facility] Internal Medicine Work Phone: Comment on above: PATIENT WAS FASTINGP ERFORMED BY: RAOUL LabBr[facility] Hospital6370 [facility] [id number] Glucose [Mass/Vol] 125 mg/dL Abnormal 65-99 [facility] Internal Medicine Work Phone: Comment on above: PATIENT WAS FASTINGP ERFORMED BY: RAOUL [facility] Bfqpqi4165 [facility] [id number] Potassium [Moles/Vol] 4.2 mmol/L Normal 3.5-5.2 [facility] Internal Medicine Work Phone: Comment on above: PATIENT WAS FASTINGP ERFORMED BY: RAOUL [facility] Luiupb7611 [facility] [id number] Protein [Mass/Vol] 7.5 g/dL Normal 6.0-8.5 [facility] Internal Medicine Work Phone: Comment on above: PATIENT WAS FASTINGP ERFORMED BY: [facility] Aqntkf0401 [facility] [id number] Sodium [Moles/Vol] 144 mmol/L Normal 135-145 [facility] Internal Medicine Work Phone: Comment on above: PATIENT WAS FASTINGP ERFORMED BY: RAOUL LabPershing Memorial HospitalFccdcf9225 [facility] [id number] Urea nitrogen [Mass/Vol] 20 mg/dL Normal 5-26 [facility] Internal Medicine Work Phone: Comment on above: PATIENT WAS FASTINGP ERFORMED BY: RAOUL LabCenterpointe Hospital Artmzi2266 [facility] [id number] Urea nitrogen/Creatinine [Mass ratio] 33 mg/mg Abnormal 8- [facility] Work Phone: Comment on above: PATIENT WAS FASTINGP ERFORMED BY: RAOUL [facility] Gesgqq4145 [facility] [id number] TSH (20407)Ordered By: Maria Del Rosario Fast on 07-28-2008 TSH Qn 3.685 {uIU/mL} Normal 0.450-4.50 0 [facility] Work Phone: Comment on above: Please note refere nce interval change PATIENT WAS FASTINGP ERFORMED BY: RAOUL [facility] Tqomjx4822 [facility] [id number] Blood Glucose , Office ([phone])Ordered By: Maria Del Rosario Fast on 07-25-2008 Glucose Glucometer (BldC) [Moles/Vol] 163 1 Normal [facility] Work Phone: HgA1C , Office ([phone])Ordere d By: Maria Del Rosario Machado on 07-25-2008 HbA1c (Bld) [Mass fraction] 6.6 % Normal 4.6 - 7.1 [facility] Work Phone: Rapid Strep Test, Office ([phone])Ordered By: [place] on 06-26-2008 S. pyogenes Ag EIA Ql (Throat) Negative Normal [facility]; [facility] Work Phone: S. pyogenes Ag IA Ql (Unsp spec) Negative Normal [facility] Work Phone: Vital Signs Date Time Vital Sign Value Performing Clinician Facility 05-29-2025 14:06-0400 Body temperature 97.5 [degF] Dr. Terrell Schafer MD Work Phone: [facility] 05-29-2025 14:06-0400 Diastolic blood pressure 80 mm[Hg] Dr. Terrell Schafer MD Work Phone: [facility] 05-29-2025 14:06-0400 Heart rate 80 /min Dr. Terrell Schafer MD Work Phone: [facility] 05-29-2025 14:06-0400 Respiratory rate 16 /min Dr. Terrell Schafer MD Work Phone: [facility] 05-29-2025 14:06-0400 SaO2% (BldA) [Mass fraction] 90 % Dr. Terrell Schafer MD Work Phone: [facility] 05-29-2025 14:06-0400 Systolic blood pressure 130 mm[Hg] Dr. Terrell Schafer MD Work Phone: [facility] 03-13-2025 10:12-0400 Body mass index (BMI) [Ratio] 37.5 kg/m2 Dr. Terrell Schafer MD Work Phone: [facility] 03-13-2025 10:12-0400 Body weight 102.[address] Terrell Schafer MD Work Phone: [facility] 03-13-2025 10:12-0400 Diastolic blood pressure 84 mm[Hg] Dr. Terrell Schafer MD Work Phone: [facility] 03-13-2025 10:12-0400 Heart rate 83 /min Dr. Terrell Schafer MD Work Phone: [facility] 03-13-2025 10:12-0400 SaO2% (BldA) [Mass fraction] 95 % Dr. Terrell Schafer MD Work Phone: [facility] 03-13-2025 10:12-0400 Systolic blood pressure 165 mm[Hg] Dr. Terrell Schafer MD Work Phone: [facility] 02-13-2025 10:49-0400 Body mass index (BMI) [Ratio] 37 kg/m2 Dr. Terrell Schafer MD Work Phone: [facility] 02-13-2025 10:49-0400 Body weight 101.[address] Terrell Schafer MD Work Phone: [facility] 02-13-2025 10:49-0400 Diastolic blood pressure 74 mm[Hg] Dr. Terrell Schafer MD Work Phone: [facility] 02-13-2025 10:49-0400 Heart rate 92 /min Dr. Terrell Schafer MD Work Phone: [facility] 02-13-2025 10:49-0400 Respiratory rate 18 /min Dr. Terrell Schafer MD Work Phone: [facility] 02-13-2025 10:49-0400 Systolic blood pressure 157 mm[Hg] Dr. Terrell Schafer MD Work Phone: [facility] 02-08-2025 16:07-0400 Body mass index (BMI) [Ratio] 37.5 kg/m2 Dr. Terrell Schafer MD Work Phone: [facility] 02-08-2025 16:07-0400 Body temperature 97 [degF] Dr. Terrell Schafer MD Work Phone: [facility] 02-08-2025 16:07-0400 Body weight 102.[address] Terrell Schafer MD Work Phone: [facility] 02-08-2025 16:07-0400 Diastolic blood pressure 88 mm[Hg] Dr. Terrell Schafer MD Work Phone: [facility] 02-08-2025 16:07-0400 Heart rate 111 /min Dr. Terrell Schafer MD Work Phone: [facility] 02-08-2025 16:07-0400 Respiratory rate 16 /min Dr. Terrell Schafer MD Work Phone: [facility] 02-08-2025 16:07-0400 SaO2% (BldA) [Mass fraction] 94 % Dr. Terrell Schafer MD Work Phone: [facility] 02-08-2025 16:07-0400 Systolic blood pressure 122 mm[Hg] Dr. Terrell Schafer MD Work Phone: [facility] 10-07-2021 12:27-0500 Body height 158.75 cm Madison Greer LPN [facility] Work Phone: 10-07-2021 12:27-0500 Body mass index (BMI) [Ratio] 42.75 kg/m2 Madison Greer LPN [facility]; [facility] Work Phone: 10-07-2021 12:27-0500 Body surface area Derived from formula 2.07 m2 Madison Greer LPN [facility]; [facility] Work Phone: 10-07-2021 12:27-0500 Body temperature 97.1 [degF] Madison Slarb ADMITTING [facility]ICE [facility]; [facility] Work Phone: 10-07-2021 12:27-0500 Body weight 107.73 kg Madison Roelrb ADMITTING OFF[facility]; [facility] Work Phone: 10-07-2021 12:27-0500 Diastolic blood pressure 82 mm[Hg] Madison Slarb ADMITTING OFFICE [facility]; [facility] Work Phone: Comment on above: Patient Position: Sitting; Cuff Location : Left Arm; Cuff Size: Standard 10-07-2021 12:27-0500 Heart rate 94 /min Madison Slarb ADMITTING [facility]; [facility] Work Phone: Comment on above: Pattern: Regular 10-07-2021 12:27-0500 Respiratory rate 17 /min Madison Slarb ADMITTING [facility]; [facility] Work Phone: Comment on above: Pattern: Unlabored 10-07-2021 12:27-0500 SaO2% (BldA) [Mass fraction] 98 % Madison Slarb ADMITTING OFFICE [facility]; [facility] Work Phone: Comment on above: Room air 10-07-2021 12:27-0500 Systolic blood pressure 124 mm[Hg] Madison Roelrb ADMITTING OFFICE [facility]; [facility] Work Phone: Comment on above: Patient Position: Sitting; Cuff Location : Left Arm; Cuff Size: Standard 09-27-2021 13:58-0500 Body height 158.75 cm Virginie Calderón MA [facility]; [facility] Work Phone: 09-27-2021 13:58-0500 Body mass index (BMI) [Ratio] 42.57 kg/m2 Virginie Calderón MA [facility]; [facility] Work Phone: 09-27-2021 13:58-0500 Body surface area Derived from formula 2.06 m2 Virginie Calderón MA [facility]; [facility] Work Phone: 09-27-2021 13:58-0500 Body temperature 97.1 [degF] Virginie Calderón MA [facility]; [facility] Work Phone: Comment on above: Method: Infrared 09-27-2021 13:58-0500 Body weight 107.28 kg Virginie Calderón MA [facility]; [facility] Work Phone: 09-27-2021 13:58-0500 Diastolic blood pressure 78 mm[Hg] Virginie Calderón MA [facility]; [facility] Work Phone: Comment on above: Patient Position: Sitting; Cuff Location : Left Arm; Cuff Size: Standard 09-27-2021 13:58-0500 Heart rate 94 /min Virginie Calderón MA [facility]; [facility] Work Phone: Comment on above: Pattern: Regular 09-27-2021 13:58-0500 Respiratory rate 16 /min Virginie Calderón MA [facility]; [facility] Work Phone: Comment on above: Pattern: Unlabored 09-27-2021 13:58-0500 SaO2% (BldA) [Mass fraction] 93 % Virginie Calderón MA [facility]; [facility] Work Phone: Comment on above: Room air 09-27-2021 13:58-0500 Systolic blood pressure 138 mm[Hg] Virginie Calderón MA [facility]; [facility] Work Phone: Comment on above: Patient Position: Sitting; Cuff Location : Left Arm; Cuff Size: Standard 09-13-2021 10:090400 Body height 158.75 cm Virginie Calderón MA [facility]; [facility] Work Phone: 09-13-2021 10:09-0400 Body mass index (BMI) [Ratio] 42.57 kg/m2 Virginie Calderón MA [facility]; [facility] Work Phone: 09-13-2021 10:09-0400 Body surface area Derived from formula 2.06 m2 Virginie Calderón MA [facility]; [facility] Work Phone: 09-13-2021 10:09-0400 Body temperature 96.8 [degF] Virginie Calderón MA [facility]; [facility] Work Phone: Comment on above: Method: Temporal 09-13-2021 10:09-0400 Body weight 107.28 kg Virginie Calderón MA [facility]; [facility] Work Phone: 09-13-2021 10:09-0400 Diastolic blood pressure 85 mm[Hg] Virginie Calderón MA [facility]; [facility] Work Phone: Comment on above: Patient Position: Sitting; Cuff Location : Left Arm; Cuff Size: Standard 09-13-2021 10:09-0400 Heart rate 87 /min Virginie Calderón MA [facility]; [facility] Work Phone: Comment on above: Pattern: Regular 09-13-2021 10:09-0400 Respiratory rate 19 /min Virginie Calderón MA [facility]; [facility] Work Phone: Comment on above: Pattern: Unlabored 09-13-2021 10:09-0400 SaO2% (BldA) [Mass fraction] 92 % Virginie Calderón MA [facility]; [facility] Work Phone: Comment on above: Room air 09-13-2021 10:09-0400 Systolic blood pressure 142 mm[Hg] Virginie Calderón MA [facility]; [facility] Work Phone: Comment on above: Patient Position: Sitting; Cuff Location : Left Arm; Cuff Size: Standard 07-12-2021 10:06-0400 Body height 158.75 cm Marie Collado LPN [facility]; [facility] Work Phone: 07-12-2021 10:06-0400 Body mass index (BMI) [Ratio] 42.39 kg/m2 Marie Collado LPN [facility]; [facility] Work Phone: 07-12-2021 10:06-0400 Body surface area Derived from formula 2.06 m2 Marie Collado LPN [facility]; [facility] Work Phone: 07-12-2021 10:06-0400 Body temperature 96.9 [degF] Marie Collado LPN [facility]; [facility] Work Phone: Comment on above: Method: Temporal 07-12-2021 10:06-0400 Body weight 106.82 kg Marienelson Collado DONALD [facility]; [facility] Work Phone: 07-12-2021 10:06-0400 Diastolic blood pressure 100 mm[Hg] Marie Tobias DONALD [facility]; [facility] Work Phone: Comment on above: Patient Position: Sitting; Cuff Location : Left Arm; Cuff Size: Standard 07-12-2021 10:06-0400 Heart rate 99 /min Marie Tobias LPN [facility]; [facility] Work Phone: Comment on above: Pattern: Regular 07-12-2021 10:06-0400 Respiratory rate 16 /min Marienelson Collado DONALD [facility]; [facility] Work Phone: Comment on above: Pattern: Unlabored 07-12-2021 10:06-0400 SaO2% (BldA) [Mass fraction] 96 % Marienelson Collado DONALD [facility]; [facility] Work Phone: Comment on above: Room air 07-12-2021 10:06-0400 Systolic blood pressure 140 mm[Hg] Marienelson Collado DONALD [facility]; [facility] Work Phone: Comment on above: Patient Position: Sitting; Cuff Location : Left Arm; Cuff Size: Standard 06-10-2021 08:27-040 Body height 158.75 cm Dante Salmon LPN [facility]; [facility] Work Phone: 06-10-2021 08:27-0400 Body mass index (BMI) [Ratio] 42.66 kg/m2 Dante Salmon LPN [facility]; [facility] Work Phone: 06-10-2021 08:27-0400 Body surface area Derived from formula 2.07 m2 Dante Salmon LPN [facility]; [facility] Work Phone: 06-10-2021 08:27-040 Body temperature 97.4 [degF] Dante Salmon LPN [facility]; [facility] Work Phone: Comment on above: Method: Infrared 06-10-2021 08:27-0400 Body weight 107.51 kg Dante Salmon LPN [facility]; [facility] Work Phone: 06-10-2021 08:27-0400 Diastolic blood pressure 100 mm[Hg] Dante Salmon LPN [facility]; [facility] Work Phone: Comment on above: Patient Position: Sitting; Cuff Location : Left Arm; Cuff Size: Standard 06-10-2021 08:27-0400 Heart rate 111 /min Dante Salmon LPN [facility]; [facility] Work Phone: Comment on above: Pattern: Regular 06-10-2021 08:27-0400 Respiratory rate 16 /min Dante Salmon LPN [facility]; [facility] Work Phone: Comment on above: Pattern: Unlabored 06-10-2021 08:27-0400 SaO2% (BldA) [Mass fraction] 97 % Dante Salmon LPN [facility]; [facility] Work Phone: Comment on above: Room air 06-10-2021 08:27-0400 Systolic blood pressure 150 mm[Hg] Dante Salmon LPN [facility]; [facility] Work Phone: Comment on above: Patient Position: Sitting; Cuff Location : Left Arm; Cuff Size: Standard 03-11-2021 10:12040 Body height 158.75 cm Madison Greer LPN [facility]; [facility] Work Phone: 03-11-2021 10:12-0400 Body mass index (BMI) [Ratio] 42.18 kg/m2 Madison Greer LPN [facility]; [facility] Work Phone: 03-11-2021 10:12-0400 Body surface area Derived from formula 2.06 m2 Madison Greer LPN [facility]; [facility] Work Phone: 03-11-2021 10:12-040 Body temperature 97.3 [degF] Madison Greer ADMITTING OFFICE ESC[facility]; [facility] Work Phone: 03-11-2021 10:120400 Body weight 106.31 kg Madison Percy PENAN [facility]; [facility] Work Phone: 03-11-2021 10:12-0400 Diastolic blood pressure 84 mm[Hg] Madison Slarb ADMITTING OFFICE ESC[facility]; [facility] Work Phone: Comment on above: Patient Position: Sitting; Cuff Location : Left Arm; Cuff Size: Standard 03-11-2021 10:120400 Heart rate 65 /min Madison Slarb ADMITTING OFFICE [facility]; [facility] Work Phone: Comment on above: Pattern: Regular 03-11-2021 10:12-0400 Respiratory rate 18 /min Madison Slarb ADMITTING OFFICE [facility]; [facility] Work Phone: Comment on above: Pattern: Unlabored 03-11-2021 10:12-0400 SaO2% (BldA) [Mass fraction] 97 % Madison Slarb ADMITTING OFFICE ESC[facility]; [facility] Work Phone: Comment on above: Room air 03-11-2021 10:120400 Systolic blood pressure 140 mm[Hg] Madison Slarb ADMITTING OFFICE ESC[facility]; [facility] Work Phone: Comment on above: Patient Position: Sitting; Cuff Location : Left Arm; Cuff Size: Standard 02-27-2021 10:240400 BMI (Body Mass Index) 42.48 kg/m2 Dante Salmon LPN [facility]; [facility] Work Phone: 02-27-2021 10:24040 Body Temperature 97.8 [degF] Dante Salmon LPN [facility]; [facility] Work Phone: Comment on above: Method: Infrared 02-27-2021 10:24040 Body weight 107.06 kg Dante Salmon LPN [facility]; [facility] Work Phone: 02-27-2021 10:24-0400 BP Diastolic 80 mm[Hg] Dante Salmon LPN [facility]; [facility] Work Phone: Comment on above: Patient Position: Sitting; Cuff Location : Left Arm; Cuff Size: Standard 02-27-2021 10:24-0400 BP Systolic 138 mm[Hg] Dante Salmon LPN [facility]; [facility] Work Phone: Comment on above: Patient Position: Sitting; Cuff Location : Left Arm; Cuff Size: Standard 02-27-2021 10:24-0400 BSA (Body Surface Area) 2.06 m2 Dante Salmon LPN [facility]; [facility] Work Phone: 02-27-2021 10:24-0400 Height 158.75 cm Dante Salmon LPN [facility]; [facility] Work Phone: 02-27-2021 10:24-0400 Pulse (Heart Rate) 92 /min Dante Salmon [facility]; [facility] Work Phone: Comment on above: Pattern: Regular 02-27-2021 10:24-0400 Pulse Oximetry 95 % Teresita Ruiz [facility]; [facility] Work Phone: Comment on above: Room air 02-27-2021 10:24-0400 Respiratory Rate 17 /min Dante Salmon LPN [facility]; [facility] Work Phone: Comment on above: Pattern: Unlabored 02-27-2021 10:24-0400 SaO2% (BldA) [Mass fraction] 95 % Dante Salmon LPN [facility]; [facility] Work Phone: Comment on above: Room air 11-28-2020 09:36-0500 BMI (Body Mass Index) 41.94 kg/m2 Marie Collado LPN [facility]; [facility] Work Phone: 11-28-2020 09:36-0500 Body Temperature 97.3 [degF] Marie Collado LPN [facility]; [facility] Work Phone: Comment on above: Method: Thermal Scan 11-28-2020 09:36-0500 Body weight 105.71 kg Marie Collado LPN [facility]; [facility] Work Phone: 11-28-2020 09:36-0500 BP Diastolic 90 mm[Hg] Marie Collado LPN [facility]; [facility] Work Phone: Comment on above: Patient Position: Sitting; Cuff Location : Left Arm; Cuff Size: Standard 11-28-2020 09:36-0500 BP Systolic 140 mm[Hg] Marie Collado LPN [facility]; [facility] Work Phone: Comment on above: Patient Position: Sitting; Cuff Location : Left Arm; Cuff Size: Standard 11-28-2020 09:36-0500 BSA (Body Surface Area) 2.05 m2 Marie Collado LPN [facility]; [facility] Work Phone: 11-28-2020 09:36-0500 Height 158.75 cm Marie Collado LPN [facility]; [facility] Work Phone: 11-28-2020 09:36-0500 Pulse (Heart Rate) 82 /min Marie Collado LPN [facility]; [facility] Work Phone: Comment on above: Pattern: Regular 11-28-2020 09:36-0500 Pulse Oximetry 99 % Teresita Ruiz [facility]; [facility] Work Phone: Comment on above: Room air 11-28-2020 09:36-0500 Respiratory Rate 16 /min Marie Collado LPN [facility]; [facility] Work Phone: Comment on above: Pattern: Unlabored 11-28-2020 09:36-0500 SaO2% (BldA) [Mass fraction] 99 % Marie Collado LPN [facility]; [facility] Work Phone: Comment on above: Room air 11-06-2020 08:49-0500 BMI (Body Mass Index) 41.76 kg/m2 Dante Salmon LPN [facility]; [facility] Work Phone: 11-06-2020 08:49-0500 Body Temperature 98.8 [degF] Dante Salmon LPN [facility]; [facility] Work Phone: Comment on above: Method: Oral 11-06-2020 08:49-0500 Body weight 105.25 kg Dante Salmon LPN [facility]; [facility] Work Phone: 11-06-2020 08:49-0500 BP Diastolic 68 mm[Hg] Dante Salmon LPN [facility]; [facility] Work Phone: Comment on above: Patient Position: Sitting; Cuff Location : Left Arm; Cuff Size: Standard 11-06-2020 08:49-0500 BP Systolic 142 mm[Hg] Dante Salmon LPN [facility]; [facility] Work Phone: Comment on above: Patient Position: Sitting; Cuff Location : Left Arm; Cuff Size: Standard 11-06-2020 08:49-0500 BSA (Body Surface Area) 2.05 m2 Dante Salmon LPN [facility]; [facility] Work Phone: 11-06-2020 08:49-0500 Height 158.75 cm Dante Salmon LPN [facility]; [facility] Work Phone: 11-06-2020 08:49-0500 Pulse (Heart Rate) 96 /min Dante Salmon LPN [facility]; [facility] Work Phone: Comment on above: Pattern: Regular 11-06-2020 08:49-0500 Pulse Oximetry 96 % Teresita Ruiz [facility]; [facility] Work Phone: Comment on above: Room air 11-06-2020 08:49-0500 Respiratory Rate 18 /min Dante Salmon LPN [facility]; [facility] Work Phone: Comment on above: Pattern: Unlabored 11-06-2020 08:49-0500 SaO2% (BldA) [Mass fraction] 96 % Dante Salmon LPN [facility]; [facility] Work Phone: Comment on above: Room air 10-16-2020 09:46-0500 BMI (Body Mass Index) 41.76 kg/m2 Dante Salmon LPN [facility] Work Phone: 10-16-2020 09:46-0500 Body weight 105.25 kg Dante Salmon LPN [facility] Work Phone: 10-16-2020 09:46-0500 BSA (Body Surface Area) 2.05 m2 Dante Salmon LPN [facility] Work Phone: 10-16-2020 09:46-0500 Height 158.75 cm Dante Salmon LPN [facility] Work Phone: 07-16-2020 08:46-0400 BMI (Body Mass Index) 41.76 kg/m2 Dante Salmon LPN [facility] Work Phone: 07-16-2020 08:46-0400 Body Temperature 97.6 [degF] Dante Salmon LPN [facility] Work Phone: Comment on above: Method: Infrared 07-16-2020 08:46-0400 Body weight 105.25 kg Dante Salmon LPN [facility] Work Phone: 07-16-2020 08:46-0400 BP Diastolic 80 mm[Hg] Dante Salmon LPN [facility] Work Phone: Comment on above: Patient Position: Sitting; Cuff Location : Left Arm; Cuff Size: Standard 07-16-2020 08:46-0400 BP Systolic 140 mm[Hg] Dante Salmon LPN [facility] Work Phone: Comment on above: Patient Position: Sitting; Cuff Location : Left Arm; Cuff Size: Standard 07-16-2020 08:46-0400 BSA (Body Surface Area) 2.05 m2 Dante Salmon LPN [facility] Work Phone: 07-16-2020 08:46-0400 Height 158.75 cm Dante Salmon LPN [facility] Work Phone: 07-16-2020 08:46-0400 Pulse (Heart Rate) 91 /min Dante Salmon LPN [facility] Work Phone: Comment on above: Pattern: Regular 07-16-2020 08:46-0400 Pulse Oximetry 93 % Teresita Ruiz [facility] Work Phone: Comment on above: Room air 07-16-2020 08:46-0400 Respiratory Rate 18 /min Dante Salmon LPN [facility] Work Phone: Comment on above: Pattern: Unlabored 07-16-2020 08:46-0400 SaO2% (BldA) [Mass fraction] 93 % Dante Salmon LPN [facility]; [facility] Work Phone: Comment on above: Room air 04-13-2020 07:37-0400 BMI (Body Mass Index) 41.76 kg/m2 Dante Salmon LPN [facility] Work Phone: 04-13-2020 07:37-0400 Body Temperature 97.6 [degF] Dante Salmon LPN [facility] Work Phone: Comment on above: Method: Temporal 04-13-2020 07:37-0400 Body weight 105.24 kg Dante Salmon LPN [facility] Work Phone: 04-13-2020 07:37-0400 BP Diastolic 78 mm[Hg] Dante Salmon LPN [facility] Work Phone: Comment on above: Patient Position: Sitting; Cuff Location : Left Arm; Cuff Size: Standard 04-13-2020 07:37-0400 BP Systolic 124 mm[Hg] Dante Salmon LPN [facility] Work Phone: Comment on above: Patient Position: Sitting; Cuff Location : Left Arm; Cuff Size: Standard 04-13-2020 07:37-0400 BSA (Body Surface Area) 2.05 m2 Dante Salmon LPN [facility] Work Phone: 04-13-2020 07:37-0400 Height 158.75 cm Dante Salmon LPN [facility] Work Phone: 04-13-2020 07:37-0400 Pulse (Heart Rate) 96 /min Dante Salmon LPN [facility] Work Phone: Comment on above: Pattern: Regular 04-13-2020 07:37-0400 Pulse Oximetry 95 % Teresita Ruiz [facility] Work Phone: Comment on above: Room air 04-13-2020 07:37-0400 Respiratory Rate 16 /min Dante Salmon DONALD [facility] Work Phone: Comment on above: Pattern: Unlabored 04-13-2020 07:37-0400 SaO2% (BldA) [Mass fraction] 95 % Dante Salmon ADMITTING OFFICE ESC[facility]; [facility] Work Phone: Comment on above: Room air 03-27-2020 09:20-0400 BMI (Body Mass Index) 41.96 kg/m2 Madison Slarb ADMITTING OFFICE [facility] Work Phone: 03-27-2020 09:20-0400 Body Temperature 97.6 [degF] Madison Slarb ADMITTING OFFICE ESC[facility] Work Phone: 03-27-2020 09:20-0400 Body weight 105.75 kg Madison Slarb ADMITTING OFFICE ESC[facility] Work Phone: 03-27-2020 09:20-0400 BP Diastolic 84 mm[Hg] Madison Slarb ADMITTING OFFICE ESC[facility] Work Phone: Comment on above: Patient Position: Sitting; Cuff Location : Left Arm; Cuff Size: Standard 03-27-2020 09:20-0400 BP Systolic 142 mm[Hg] Madison Slarb ADMITTING OFFICE ESC[facility] Work Phone: Comment on above: Patient Position: Sitting; Cuff Location : Left Arm; Cuff Size: Standard 03-27-2020 09:20-0400 BSA (Body Surface Area) 2.05 m2 Madison Slarb ADMITTING OFFICE [facility] Work Phone: 03-27-2020 09:20-0400 Height 158.75 cm Madison Slarb ADMITTING OFFICE [facility] Work Phone: 03-27-2020 09:20-0400 Pulse (Heart Rate) 81 /min Madison Slarb ADMITTING OFFICE [facility] Work Phone: Comment on above: Pattern: Regular 03-27-2020 09:20-0400 Pulse Oximetry 97 % Teresita Ruiz [facility] Work Phone: Comment on above: Room air 03-27-2020 09:20-0400 Respiratory Rate 17 /min Madison Percy BENNETT [facility] Work Phone: Comment on above: Pattern: Unlabored 03-27-2020 09:20-0400 SaO2% (BldA) [Mass fraction] 97 % Madison Greer LPN [facility]; [facility] Work Phone: Comment on above: Room air 02-21-2020 08:39-0400 BMI (Body Mass Index) 41.49 kg/m2 Dante Salmon LPN [facility] Work Phone: 02-21-2020 08:39-0400 Body Temperature 97.1 [degF] Dante Salmon LPN [facility] Work Phone: Comment on above: Method: Temporal 02-21-2020 08:39-0400 Body weight 104.55 kg Dante Salmon LPN [facility] Work Phone: 02-21-2020 08:39-0400 BP Diastolic 92 mm[Hg] Dante Salmon LPN [facility] Work Phone: Comment on above: Patient Position: Sitting; Cuff Location : Left Arm; Cuff Size: Standard 02-21-2020 08:39-0400 BP Systolic 140 mm[Hg] Dante Salmon LPN [facility] Work Phone: Comment on above: Patient Position: Sitting; Cuff Location : Left Arm; Cuff Size: Standard 02-21-2020 08:39-0400 BSA (Body Surface Area) 2.04 m2 Dante Salmon LPN [facility] Work Phone: 02-21-2020 08:39-0400 Height 158.75 cm Dante Salmon LPN [facility] Work Phone: 02-21-2020 08:39-0400 Pulse (Heart Rate) 103 /min Dante Salmon LPN [facility] Work Phone: Comment on above: Pattern: Regular 02-21-2020 08:39-0400 Pulse Oximetry 97 % Teresita Ruiz [facility] Work Phone: Comment on above: Room air 02-21-2020 08:39-0400 Respiratory Rate 16 /min Dante Salmon LPN [facility] Work Phone: Comment on above: Pattern: Unlabored 02-21-2020 08:39-0400 SaO2% (BldA) [Mass fraction] 97 % Dante Salmon LPN [facility]; [facility] Work Phone: Comment on above: Room air 01-09-2020 08:07-0500 BMI (Body Mass Index) 39.78 kg/m2 Dante Salmon LPN [facility] Work Phone: 01-09-2020 08:07-0500 Body Temperature 97.5 [degF] Dante Salmon LPN [facility] Work Phone: Comment on above: Method: Temporal 01-09-2020 08:07-0500 Body weight 100.25 kg Dante Salmon LPN [facility] Work Phone: 01-09-2020 08:07-0500 BP Diastolic 86 mm[Hg] Dante Salmon LPN [facility] Work Phone: Comment on above: Patient Position: Sitting; Cuff Location : Left Arm; Cuff Size: Standard 01-09-2020 08:07-0500 BP Systolic 148 mm[Hg] Dante Salmon LPN [facility] Work Phone: Comment on above: Patient Position: Sitting; Cuff Location : Left Arm; Cuff Size: Standard 01-09-2020 08:07-0500 BSA (Body Surface Area) 2.01 m2 Dante Salmon LPN [facility] Work Phone: 01-09-2020 08:07-0500 Height 158.75 cm Dante Salmon LPN [facility] Work Phone: 01-09-2020 08:07-0500 Pulse (Heart Rate) 85 /min Dante Salmon LPN [facility] Work Phone: Comment on above: Pattern: Regular 01-09-2020 08:07-0500 Pulse Oximetry 99 % Teresita Ruiz [facility] Work Phone: Comment on above: Room air 01-09-2020 08:07-0500 Respiratory Rate 18 /min Dante Salmon LPN [facility] Work Phone: Comment on above: Pattern: Unlabored 01-09-2020 08:07-0500 SaO2% (BldA) [Mass fraction] 99 % Dante Salmon LPN [facility]; [facility] Work Phone: Comment on above: Room air 01-02-2020 12:57-0500 BMI (Body Mass Index) 38.88 kg/m2 Dante Salmon LPN [facility] Work Phone: 01-02-2020 12:57-0500 Body Temperature 98.3 [degF] Dante Salmon LPN [facility] Work Phone: Comment on above: Method: Temporal 01-02-2020 12:57-0500 Body weight 97.99 kg Dante Salmon LPN [facility] Work Phone: 01-02-2020 12:57-0500 BP Diastolic 74 mm[Hg] Dante Salmon LPN [facility] Work Phone: Comment on above: Patient Position: Sitting; Cuff Location : Left Arm; Cuff Size: Standard 01-02-2020 12:57-0500 BP Systolic 130 mm[Hg] Dante Salmon LPN [facility] Work Phone: Comment on above: Patient Position: Sitting; Cuff Location : Left Arm; Cuff Size: Standard 01-02-2020 12:57-0500 BSA (Body Surface Area) 1.99 m2 Dante Salmon LPN [facility] Work Phone: 01-02-2020 12:57-0500 Height 158.75 cm Dante Salmon LPN [facility] Work Phone: 01-02-2020 12:57-0500 Pulse (Heart Rate) 72 /min Dante Salmon LPN [facility] Work Phone: Comment on above: Pattern: Regular 01-02-2020 12:57-0500 Pulse Oximetry 96 % Teresita Ruiz [facility] Work Phone: Comment on above: Room air 01-02-2020 12:57-0500 Respiratory Rate 16 /min Dante Salmon LPN [facility] Work Phone: Comment on above: Pattern: Unlabored 01-02-2020 12:57-0500 SaO2% (BldA) [Mass fraction] 96 % Dante Salmon LPN [facility]; [facility] Work Phone: Comment on above: Room air 12-27-2019 08:58-0500 BMI (Body Mass Index) 37.98 kg/m2 Dante Salmon LPN [facility] Work Phone: 12-27-2019 08:58-0500 Body Temperature 97.8 [degF] Dante Salmon LPN [facility] Work Phone: Comment on above: Method: Temporal 12-27-2019 08:58-0500 Body weight 95.72 kg Dante Salmon LPN [facility] Work Phone: 12-27-2019 08:58-0500 BP Diastolic 84 mm[Hg] Dante Salmon LPN [facility] Work Phone: Comment on above: Patient Position: Sitting; Cuff Location : Left Arm; Cuff Size: Standard 12-27-2019 08:58-0500 BP Systolic 136 mm[Hg] Dante Salmon LPN [facility] Work Phone: Comment on above: Patient Position: Sitting; Cuff Location : Left Arm; Cuff Size: Standard 12-27-2019 08:58-0500 BSA (Body Surface Area) 1.97 m2 Dante Salmon LPN [facility] Work Phone: 12-27-2019 08:58-0500 Height 158.75 cm Dante Salmon LPN [facility] Work Phone: 12-27-2019 08:58-0500 Pulse (Heart Rate) 113 /min Dante Salmon LPN [facility] Work Phone: Comment on above: Pattern: Regular 12-27-2019 08:58-0500 Pulse Oximetry 96 % Teresita Ruiz [facility] Work Phone: Comment on above: Room air 12-27-2019 08:58-0500 Respiratory Rate 16 /min Dante Salmon LPN [facility] Work Phone: Comment on above: Pattern: Unlabored 12-27-2019 08:58-0500 SaO2% (BldA) [Mass fraction] 96 % Dante Salmon LPN [facility]; [facility] Work Phone: Comment on above: Room air 10-02-2017 11:32-0500 BMI (Body Mass Index) 46.76 kg/m2 [facility] Work Phone: 10-02-2017 11:32-0500 BP Diastolic 56 mm[Hg] [facility] Work Phone: 10-02-2017 11:32-0500 BP Systolic 102 mm[Hg] [facility] Work Phone: 10-02-2017 11:32-0500 Height 160.02 cm [facility] Work Phone: 10-02-2017 11:32-0500 Pulse (Heart Rate) 73 /min [facility] Work Phone: 10-02-2017 11:32-0500 Weight 119.75 kg [facility] Work Phone: 03-27-2017 11:14-0400 Respiratory Rate 20 /min [facility] Work Phone: 09-25-2016 11:31-0500 BSA (Body Surface Area) 2.12 m2 [facility] Work Phone: 06-14-2010 11:05-0400 BMI (Body Mass Index) 43.21 kg/m2 Poonam Day [facility] Work Phone: 06-14-2010 11:05-0400 Body Temperature 98.6 [degF] Poonam Mae [facility] Work Phone: 06-14-2010 11:05-0400 Body weight 109.77 kg Poonam Mae [facility] Work Phone: 06-14-2010 11:05-0400 BP Diastolic 72 mm[Hg] Poonam Mae [facility] Work Phone: Comment on above: Patient Position: Sitting; Cuff Location : Left Arm; Cuff Size: Large 06-14-2010 11:05-0400 BP Systolic 144 mm[Hg] Poonam Mae [facility] Work Phone: Comment on above: Patient Position: Sitting; Cuff Location : Left Arm; Cuff Size: Large 06-14-2010 11:05-0400 BSA (Body Surface Area) 2.09 m2 Poonam Mae [facility] Work Phone: 06-14-2010 11:05-0400 Height 159.38 cm Poonam Mae [facility] Work Phone: 06-14-2010 11:05-0400 Pulse (Heart Rate) 72 /min Poonam Mae [facility] Work Phone: Comment on above: Pattern: Regular 06-14-2010 11:05-0400 Respiratory Rate 18 /min Poonam Honeycuttshelly [facility] Work Phone: Comment on above: Pattern: Unlabored 09-03-2009 09:11-0400 Body Temperature 98.2 [degF] Poonam Mae [facility] Work Phone: Comment on above: Method: Undefined 09-03-2009 09:11-0400 Body weight 111.13 kg Poonam Honeycuttshelly [facility] Work Phone: 09-03-2009 09:11-0400 BP Diastolic 64 mm[Hg] Poonam Honeycuttshelly [facility] Work Phone: Comment on above: Patient Position: Sitting; Cuff Location : Left Arm; Cuff Size: Large 09-03-2009 09:11-0400 BP Systolic 128 mm[Hg] Poonam Mae [facility] Work Phone: Comment on above: Patient Position: Sitting; Cuff Location : Left Arm; Cuff Size: Large 09-03-2009 09:11-0400 Head Circumference 0 cm Teresita Ruiz [facility] Work Phone: 09-03-2009 09:11-0400 Head Occipital-frontal circumference 0 cm Poonam Mae [facility] Work Phone: 09-03-2009 09:11-0400 Height 0 cm Poonam Mae [facility] Work Phone: 09-03-2009 09:11-0400 Pulse (Heart Rate) 72 /min Poonam Mae [facility] Work Phone: Comment on above: Pattern: Regular 09-03-2009 09:11-0400 Respiratory Rate 18 /min Poonam Mae [facility] Work Phone: Comment on above: Pattern: Undefined 06-04-2009 11:44-0400 Body Temperature 97.3 [degF] Poonam Mae [facility] Work Phone: Comment on above: Method: Undefined 06-04-2009 11:44-0400 Body weight 112.04 kg Poonam Mae [facility] Work Phone: 06-04-2009 11:44-0400 BP Diastolic 58 mm[Hg] Poonam Mae [facility] Work Phone: Comment on above: Patient Position: Sitting; Cuff Location : Left Arm; Cuff Size: Large 06-04-2009 11:44-0400 BP Systolic 144 mm[Hg] Poonam Mae [facility] Work Phone: Comment on above: Patient Position: Sitting; Cuff Location : Left Arm; Cuff Size: Large 06-04-2009 11:44-0400 Head Circumference 0 cm Teresita Ruiz [facility] Work Phone: 06-04-2009 11:44-0400 Head Occipital-frontal circumference 0 cm Poonam Tonglaverne [facility]; [facility] Work Phone: 06-04-2009 11:44-0400 Height 0 cm Poonam Honeycuttshelly [facility] Work Phone: 06-04-2009 11:44-0400 Pulse (Heart Rate) 76 /min Poonam Mae [facility] Work Phone: Comment on above: Pattern: Regular 06-04-2009 11:44-0400 Respiratory Rate 18 /min Poonam Mae [facility] Work Phone: Comment on above: Pattern: Undefined 03-05-2009 09:13-0400 Body Temperature 96.7 [degF] Poonam Mae [facility] Work Phone: Comment on above: Method: Undefined 03-05-2009 09:13-0400 Body weight 113.85 kg Poonam Mae [facility] Work Phone: 03-05-2009 09:13-0400 BP Diastolic 84 mm[Hg] Poonam Mae [facility] Work Phone: Comment on above: Patient Position: Sitting; Cuff Location : Left Arm; Cuff Size: Large 03-05-2009 09:13-0400 BP Systolic 148 mm[Hg] Poonam Mae [facility] Work Phone: Comment on above: Patient Position: Sitting; Cuff Location : Left Arm; Cuff Size: Large 03-05-2009 09:13-0400 Head Circumference 0 cm Teresita Meievaristodaya [facility] Work Phone: 03-05-2009 09:13-0400 Head Occipital-frontal circumference 0 cm Poonam Mae [facility] Work Phone: 03-05-2009 09:13-0400 Height 0 cm Poonam Mae [facility] Work Phone: 03-05-2009 09:13-0400 Pulse (Heart Rate) 72 /min Poonam Mae [facility] Work Phone: Comment on above: Pattern: Regular 03-05-2009 09:13-0400 Respiratory Rate 18 /min Poonam Mae [facility] Work Phone: Comment on above: Pattern: Undefined 01-17-2009 14:37-0500 Body weight 112.49 kg Paris Rick RN [facility] Work Phone: 01-17-2009 14:37-0500 BP Diastolic 74 mm[Hg] Paris Rick RN [facility] Work Phone: Comment on above: Patient Position: Sitting; Cuff Location : Right Arm; Cuff Size: Large 01-17-2009 14:37-0500 BP Systolic 122 mm[Hg] Paris Rick RN [facility] Work Phone: Comment on above: Patient Position: Sitting; Cuff Location : Right Arm; Cuff Size: Large 01-17-2009 14:37-0500 Head Circumference 0 cm Teresita Ruiz [facility] Work Phone: 01-17-2009 14:37-0500 Head Occipital-frontal circumference 0 cm Paris Rick RN [facility]; [facility] Work Phone: 01-17-2009 14:37-0500 Height 0 cm Paris Rick RN [facility] Work Phone: 01-17-2009 14:37-0500 Pulse (Heart Rate) 88 /min Paris Rick RN [facility] Work Phone: Comment on above: Pattern: Regular 01-17-2009 14:37-0500 Respiratory Rate 20 /min Paris Rick RN [facility] Work Phone: Comment on above: Pattern: Unlabored 12-11-2008 09:57-0500 Body Temperature 96.8 [degF] Poonam Mae [facility] Work Phone: Comment on above: Method: Undefined 12-11-2008 09:57-0500 Body weight 0 kg Poonam Mae [facility] Work Phone: 12-11-2008 09:57-0500 BP Diastolic 68 mm[Hg] Poonam Mae [facility] Work Phone: Comment on above: Patient Position: Standing; Cuff Locatio n: Left Arm; Cuff Size: Large 12-11-2008 09:57-0500 BP Systolic 124 mm[Hg] Poonam Mae [facility] Work Phone: Comment on above: Patient Position: Standing; Cuff Locatio n: Left Arm; Cuff Size: Large 12-11-2008 09:57-0500 Head Circumference 0 cm [facility] Work Phone: 12-11-2008 09:57-0500 Head Occipital-frontal circumference 0 cm Poonam Mae [facility] Work Phone: 12-11-2008 09:57-0500 Height 0 cm Poonam Carmelita [facility] Work Phone: 12-11-2008 09:57-0500 Pulse (Heart Rate) 72 /min Poonam Carmelita [facility] Work Phone: Comment on above: Pattern: Regular 12-11-2008 09:57-0500 Respiratory Rate 18 /min Poonam Mae [facility] Work Phone: Comment on above: Pattern: Undefined 12-04-2008 09:31-0500 Body Temperature 96.3 [degF] Poonam Mae [facility] Work Phone: Comment on above: Method: Undefined 12-04-2008 09:31-0500 Body weight 112.04 kg Poonam Mae [facility] Work Phone: 12-04-2008 09:31-0500 BP Diastolic 70 mm[Hg] Poonam Mae [facility] Work Phone: Comment on above: Patient Position: Standing; Cuff Locatio n: Left Arm; Cuff Size: Large 12-04-2008 09:31-0500 BP Systolic 152 mm[Hg] Poonam Mae [facility] Work Phone: Comment on above: Patient Position: Standing; Cuff Locatio n: Left Arm; Cuff Size: Large 12-04-2008 09:31-0500 Head Circumference 0 cm Teresita [facility] Work Phone: 12-04-2008 09:31-0500 Head Occipital-frontal circumference 0 cm Poonam Mae [facility] Work Phone: 12-04-2008 09:31-0500 Height 0 cm Poonam Mae [facility] Work Phone: 12-04-2008 09:31-0500 Pulse (Heart Rate) 76 /min Poonam Mae [facility] Work Phone: Comment on above: Pattern: Regular 12-04-2008 09:31-0500 Respiratory Rate 18 /min Poonam Mae [facility] Work Phone: Comment on above: Pattern: Undefined 10-02-2008 11:44-0500 Body Temperature 97.4 [degF] Poonam Mae [facility] Work Phone: Comment on above: Method: Undefined 10-02-2008 11:44-0500 Body weight 114.31 kg Poonam Mae [facility] Work Phone: 10-02-2008 11:44-0500 BP Diastolic 70 mm[Hg] Poonam Mae [facility] Work Phone: Comment on above: Patient Position: Sitting; Cuff Location : Left Arm; Cuff Size: Large 10-02-2008 11:44-0500 BP Systolic 150 mm[Hg] Poonam Mae [facility] Work Phone: Comment on above: Patient Position: Sitting; Cuff Location : Left Arm; Cuff Size: Large 10-02-2008 11:44-0500 Head Circumference 0 cm Teresita Meidaya [facility] Work Phone: 10-02-2008 11:44-0500 Head Occipital-frontal circumference 0 cm Poonam Mae [facility] Work Phone: 10-02-2008 11:44-0500 Height 0 cm Poonam Mae [facility] Work Phone: 10-02-2008 11:44-0500 Pulse (Heart Rate) 84 /min Poonam Mae [facility] Work Phone: Comment on above: Pattern: Regular 10-02-2008 11:44-0500 Respiratory Rate 18 /min Poonam Mae [facility] Work Phone: Comment on above: Pattern: Undefined 08-21-2008 16:43-0400 Body Temperature 97.1 [degF] Poonam Mae [facility] Work Phone: Comment on above: Method: Undefined 08-21-2008 16:43-0400 Body weight 116.58 kg Poonam Mae [facility] Work Phone: 08-21-2008 16:43-0400 BP Diastolic 72 mm[Hg] Poonam Mae [facility] Work Phone: Comment on above: Patient Position: Sitting; Cuff Location : Right Arm; Cuff Size: Large 08-21-2008 16:43-0400 BP Systolic 146 mm[Hg] Poonam Mae [facility] Work Phone: Comment on above: Patient Position: Sitting; Cuff Location : Right Arm; Cuff Size: Large 08-21-2008 16:43-0400 Head Circumference 0 cm Teresita Ruiz [facility] Work Phone: 08-21-2008 16:43-0400 Head Occipital-frontal circumference 0 cm Poonam Mae [facility] Work Phone: 08-21-2008 16:43-0400 Height 0 cm Poonam Mae [facility] Work Phone: 08-21-2008 16:43-0400 Pulse (Heart Rate) 80 /min [facility] Work Phone: Comment on above: Pattern: Regular 08-21-2008 16:43-0400 Respiratory Rate 18 /min Poonam Mae [facility] Work Phone: Comment on above: Pattern: Undefined 07-25-2008 14:16-0400 Body Temperature 97.9 [degF] Poonam Mae [facility] Work Phone: Comment on above: Method: Undefined 07-25-2008 14:16-0400 Body weight 113.4 kg Poonam Mae [facility] Work Phone: 07-25-2008 14:16-0400 BP Diastolic 52 mm[Hg] Poonam Tonglaverne [facility] Work Phone: Comment on above: Patient Position: Sitting; Cuff Location : Left Arm; Cuff Size: Large 07-25-2008 14:16-0400 BP Systolic 154 mm[Hg] Poonam Tonglaverne [facility] Work Phone: Comment on above: Patient Position: Sitting; Cuff Location : Left Arm; Cuff Size: Large 07-25-2008 14:16-0400 Head Circumference 0 cm Teresita Ruiz [facility] Work Phone: 07-25-2008 14:16-0400 Head Occipital-frontal circumference 0 cm Poonam Carmelita [facility]; [facility] Work Phone: 07-25-2008 14:16-0400 Height 0 cm Poonam Carmelita [facility] Work Phone: 07-25-2008 14:16-0400 Pulse (Heart Rate) 76 /min Poonam Carmelita [facility] Work Phone: Comment on above: Pattern: Regular 07-25-2008 14:16-0400 Respiratory Rate 18 /min Poonam Carmelita [facility] Work Phone: Comment on above: Pattern: Undefined 07-03-2008 11:22-0400 BMI (Body Mass Index) 44.5 kg/m2 La Holbrookkaiser BENNETT [facility] Work Phone: 07-03-2008 11:22-0400 Body Temperature 97.6 [degF] [place] ADMITTING [employer]ICE [employer] Work Phone: Comment on above: Method: Oral 07-03-2008 11:22-0400 Body weight 113.94 kg [place] DONALD [facility] Work Phone: 07-03-2008 11:22-0400 BP Diastolic 64 mm[Hg] [place] ADMITTING [employer] Work Phone: Comment on above: Patient Position: Sitting; Cuff Location : Left Arm; Cuff Size: Standard 07-03-2008 11:22-0400 BP Systolic 124 mm[Hg] [place] LPN [facility] Work Phone: Comment on above: Patient Position: Sitting; Cuff Location : Left Arm; Cuff Size: Standard 07-03-2008 11:22-0400 BSA (Body Surface Area) 2.13 m2 [place] LPN [facility] Work Phone: 07-03-2008 11:22-0400 Head Circumference 0 cm Teresita Ruiz [facility] Work Phone: 07-03-2008 11:22-0400 Head Occipital-frontal circumference 0 cm [place] LPN [facility]; [facility] Work Phone: 07-03-2008 11:22-0400 Height 160.02 cm [place] LPN [facility] Work Phone: 07-03-2008 11:22-0400 Pulse (Heart Rate) 74 /min [place] LPN [facility] Work Phone: Comment on above: Pattern: Regular 07-03-2008 11:22-0400 Pulse Oximetry 96 % Teresita Ruiz [facility] Work Phone: Comment on above: Room air 07-03-2008 11:22-0400 Respiratory Rate 17 /min [place] LPN [facility] Work Phone: Comment on above: Pattern: Unlabored 07-03-2008 11:22-0400 SaO2% (BldA) [Mass fraction] 96 % [place] LPN [facility]; [facility] Work Phone: Comment on above: Room air 06-26-2008 08:55-0400 BMI (Body Mass Index) 44.3 kg/m2 [place] LPN [facility] Work Phone: 06-26-2008 08:55-0400 Body Temperature 97 [degF] [place] LPN [facility] Work Phone: Comment on above: Method: Oral 06-26-2008 08:55-0400 Body weight 113.43 kg [place] LPN [facility] Work Phone: 06-26-2008 08:55-0400 BP Diastolic 74 mm[Hg] [place] LPN [facility] Work Phone: Comment on above: Patient Position: Sitting; Cuff Location : Left Arm; Cuff Size: Standard 06-26-2008 08:55-0400 BP Systolic 130 mm[Hg] [place] LPN [facility] Work Phone: Comment on above: Patient Position: Sitting; Cuff Location : Left Arm; Cuff Size: Standard 06-26-2008 08:55-0400 BSA (Body Surface Area) 2.13 m2 [place] LPN [facility] Work Phone: 06-26-2008 08:55-0400 Head Circumference 0 cm Teresita Ruiz [facility] Work Phone: 06-26-2008 08:55-0400 Head Occipital-frontal circumference 0 cm [place] LPN [facility]; [facility] Work Phone: 06-26-2008 08:55-0400 Height 160.02 cm [place] LPN [facility] Work Phone: 06-26-2008 08:55-0400 Pulse (Heart Rate) 72 /min [place] LPN [facility] Work Phone: Comment on above: Pattern: Regular 06-26-2008 08:55-0400 Pulse Oximetry 96 % Teresita Ruiz [facility] Work Phone: Comment on above: Room air 06-26-2008 08:55-0400 Respiratory Rate 18 /min [place] LPN [facility] Work Phone: Comment on above: Pattern: Unlabored 06-26-2008 08:55-0400 SaO2% (BldA) [Mass fraction] 96 % [place] LPN [facility]; [facility] Work Phone: Comment on above: Room air Encounters Encounter Date Encounter Type Care Provider Facility Start: 08-25-2025 ambulatory Efewcarlitos Andersoni ty:[facility] Start: 06-08-2025 ambulatory Nati Víctor Facility :[facility] Start: 05-29-2025 ambulatory [facility] Facility:[facility] Start: 05-29-2025 End: 05-29-[address] Terrell Schafer MD -[facility] Work Phone: Start: 05-29-2025 End: 05-29-[address] Terrell Schafer MD Work Phone: -[facility] Start: 05-08-2025 ambulatory Efewcarlitos Andersoni ty:[facility] Start: 05-08-2025 Non-patient / Non-visit Dr. Terrell Schafer MD -[facility] Work Phone: Start: 04-24-2025 ambulatory Efphillip Andersoni ty:[facility] Start: 04-24-2025 Non-patient / Non-visit Dr. Terrell Schafer MD [facility] Work Phone: Start: 04-17-2025 ambulatory Efphillip Andersoni ty:[facility] Start: 04-17-2025 Non-patient / Non-visit Dr. Terrell Schafer MD -[facility] Work Phone: Start: 03-13-2025 End: 03-13-2025 Patient encounter procedure Nati Renee NP-C -[facility] Work Phone: Start: 03-13-2025 End: 03-13-2025 ambulatory [facility] Facility:[facility] Start: 02-20-2025 End: 03-15-2025 Discharged Recurring Dr. Joel Judge MD -Laboratory Work Phone: Start: 02-20-2025 End: 03-15-2025 ambulatory [facility] Facility:[facility] Start: 02-13-2025 End: 02-13-2025 Patient encounter procedure Elkin Beltran NP-[facility] Work Phone: Start: 02-13-2025 End: 02-13-2025 ambulatory Elkin Beltran NP Facility:[facility] Start: 02-08-2025 End: 02-08-[address] Terrell Schafer MD -[facility] Work Phone: Start: 02-08-2025 End: 02-08-2025 ambulatory Efewongbe Oleghe Facility:[facility] Start: 01-29-2025 ambulatory Efewongbe Oleghe Facili ty:[facility] Start: 01-29-2025 Non-patient / Non-visit Dr. Terrell Schafer MD -[facility] Work Phone: Start: 01-16-2025 ambulatory Efewongbe Oleghe Facili ty:[facility] Start: 01-05-2025 ambulatory Efewongbe Oleghe Facili ty:[facility] Start: 12-27-2024 ambulatory Efewongbe Oleghe Facili ty:[facility] Start: 11-25-2024 ambulatory Efewongbe Oleghe Facili ty:[facility] Start: 11-10-2024 End: 11-10-2024 ambulatory Rochester Kannan Facility:[facility] Start: 11-07-2024 End: 11-07-2024 ambulatory Efewongbe Oleghe Facility:[facility] Start: 11-07-2024 ambulatory Efewongbe Oleghe Facili ty:[facility] Start: 10-11-2024 ambulatory Efewongbe Oleghe Facili ty:[facility] Start: 09-19-2024 End: 10-15-2024 ambulatory [facility] Facility:[facility] Start: 09-15-2024 End: 09-15-2024 ambulatory Brittany Macdonald Facility:[facility] Start: 09-05-2024 ambulatory Efewongbe Oleghe Facili ty:[facility] Start: 08-22-2024 End: 08-23-2024 ambulatory Manolo Morejon Facility:[facility] Start: 08-15-2024 ambulatory Efewongbe Oleghe Facili ty:[facility] Start: 08-04-2024 End: 08-04-2024 ambulatory Efewongbe Oleghe Facility:[facility] Start: 07-31-2024 ambulatory Efewongbe Oleghe Facili ty:[facility] Start: 07-28-2024 End: 07-28-2024 ambulatory Teresita Bucknerdaya COLLAR SHAPER OPERATOR Facility[facility] Start: 07-25-2024 ambulatory No Primary Car e Physician Facility:[facility] Start: 07-11-2024 End: 07-11-2024 ambulatory No Primary Care Physician Facility:[facility] Start: 07-03-2024 ambulatory No Primary Car e Physician Facility:[facility] Start: 06-14-2024 ambulatory No Primary Car e Physician Facility:[facility] Start: 06-13-2024 End: 06-14-2024 ambulatory No Primary Care Physician Facility:[facility] Start: 06-13-2024 End: 06-13-2024 ambulatory No Primary Care Physician Facility:[facility] Start: 10-07-2021 End: 10-07-2021 Office outpatient visit 10 minutes Teresita Bucknerdaya 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 Work Phone: [facility] Start: 09-27-2021 End: 09-27-2021 Office outpatient visit 10 minutes Teresita Bucknerdaya 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 Work Phone: [facility] Start: 09-13-2021 End: 09-13-2021 Lab Order Teresita Bucknerdaya 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 Work Phone: [facility] Start: 09-13-2021 End: 09-13-2021 Office outpatient visit 25 minutes Teresita Ruiz 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 Work Phone: [facility] Start: 07-12-2021 End: 07-12-2021 Office outpatient visit 25 minutes Teresita Bucknerdaya 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 Work Phone: [facility] Start: 06-10-2021 End: 06-10-2021 Office outpatient visit 25 minutes Teresita Bucknerdaya 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 Work Phone: [facility] Start: 03-11-2021 End: 03-11-2021 Office outpatient visit 25 minutes Teresita Bucnkerdaya 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 Work Phone: [facility] Start: 03-11-2021 Review Teresita Bucknerdaya 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 Work Phone: [facility] Start: 02-27-2021 End: 02-27-2021 Annotation/Addendum Teresita Ruiz [facility] Start: 02-27-2021 End: 02-27-2021 Office outpatient visit 25 minutes Teresita Bucknerdaya [facility] Start: 11-28-2020 End: 11-28-2020 Office outpatient visit 25 minutes Teresita Ruiz [facility] Start: 11-08-2020 End: 11-08-2020 Annotation/Addendum Teresita Ruiz [facility] Start: 11-06-2020 End: 11-06-2020 Office outpatient visit 15 minutes Teresita Hurleyevaristodaya [facility] Start: 10-16-2020 End: 10-16-2020 Office outpatient visit 15 minutes Teresita Bucknerdaya [facility] Start: 10-16-2020 Review Teresita Hurleytamiko Mun[facility] Start: 07-16-2020 End: 07-16-2020 Office outpatient visit 25 minutes Teresita Hurleyevaristodaya [facility] Start: 05-01-2020 End: 05-01-2020 Annotation/Addendum Teresita Ruiz [facility] Start: 04-16-2020 End: 04-16-2020 Annotation/Addendum Teresita Sitadaya [facility] Start: 04-16-2020 End: 04-16-2020 Annotation/Addendum Teresita Ruiz [facility] C Web Developer al Medicine Start: 04-13-2020 End: 04-13-2020 Annotation/Addendum Teresita Ruiz [facility] Start: 04-13-2020 End: 04-13-2020 Office outpatient visit 25 minutes Teresita Sitadaya [facility] Start: 04-13-2020 End: 04-13-2020 Patient encounter procedure Teresita Ruiz Work Phone: [facility] Start: 03-28-2020 End: 03-28-2020 Annotation/Addendum Teresita Ruiz [facility] C Web Developer al Medicine Start: 03-27-2020 End: 03-27-2020 Office outpatient visit 15 minutes Teresita Sitadaya [facility] Start: 02-21-2020 End: 02-21-2020 Office outpatient visit 25 minutes Teresita Hurleyevaristodaya [facility] Start: 01-09-2020 End: 01-09-2020 Office outpatient visit 15 minutes Teresita Hurleyevaristodaya [facility] Start: 01-02-2020 End: 01-02-2020 Annotation/Addendum Teresita Sitadaya [facility] Start: 01-02-2020 End: 01-02-2020 Office outpatient visit 25 minutes Teresita Ciesa [facility] Start: 12-27-2019 End: 12-27-2019 Office outpatient new 45 minutes Teresita Hurleyevaristodaya [facility] Start: 04-20-2019 End: 04-20-2019 Telephone encounter Liver Txp Coordinator Work Phone: [facility] Start: 06-14-2010 End: 06-14-2010 Patient encounter procedure Teresita Ruiz [facility] Start: 09-03-2009 End: 09-03-2009 Patient encounter procedure Teresita Joseph [facility] Start: 06-04-2009 End: 06-05-2009 Patient encounter procedure Teresita Joseph [facility] Start: 03-05-2009 End: 03-05-2009 Patient encounter procedure Teresita Ruiz [facility] Start: 01-17-2009 End: 01-17-2009 Patient encounter procedure Teresita Ruiz [facility] Start: 01-05-2009 End: 01-05-2009 Phone Encounter Teresita Avila C Web Developer al Medicine Start: 12-11-2008 End: 12-11-2008 Patient encounter procedure Teresita Bucknerdaya [facility] Start: 12-04-2008 End: 12-04-2008 Patient encounter procedure Teresita Bucknerdaya [facility] Start: 10-02-2008 End: 10-02-2008 Patient encounter procedure Teresita Meitamiko [facility] Start: 08-28-2008 End: 08-28-2008 Nursing evaluation of patient and report Teresita Hurleyevaristodaya [facility] Start: 08-21-2008 End: 08-21-2008 Patient encounter procedure Teresita Hurleyevaristodaya [facility] Start: 07-25-2008 End: 07-26-2008 Patient encounter procedure Teresita Sitadaya [facility] Start: 07-03-2008 End: 07-03-2008 Office outpatient visit 15 minutes Teresita Ruiz [facility] Start: 06-26-2008 End: 06-26-2008 Office outpatient visit 25 minutes Teresita Ruiz [facility] Patient encounter procedure Dante Salmon ADMITTING OFFICE ESCORT [facility] Work Phone: Patient encounter procedure Madison Greer LPN [facility]; [facility] Work Phone: Patient encounter procedure Madison Greer LPN [facility]; [facility] Work Phone: Procedures Date Procedure Procedure Detail Performing Clinician Start: 01-02-2022 End: 01-02-2022 Chest 1 View (Portable) Comments: See Note; NOTES: [facility] Imaging Services [address] [place] [address] Chest 1 View (Portable) MR#: [id number] Acct: [id number] Name: VASILE MILLER Rep #: [id number] : 1940 F 81 From: Rmaakrishna washington MD PCP: SEAN Palencia Status: REG ER Study: Chest 1 View (Portable) Date of Exam: 01/02/22 Exam# [id number] Ordering Dr: Hira Leone DO STUDY: X-RAY CHEST REASON FOR EXAM: Female, 81 years old. Weakness TECHNIQUE: Single AP portable view of the chest. COMPARISON: Comparison is made with prior study dated 12/27/2019. FINDINGS: EKG electrodes are seen. The lungs are clear and expanded. There is no demonstrated pleural abnormality. There is moderate cardiac enlargement. Normal mediastinum and darling. Normal visualized pulmonary arteries. There is atherosclerotic calcification of the aortic arch with tortuosity. There are diffuse degenerative changes of the visualized thoracic spine. Normal visualized ribs, clavicles, and shoulders. There is no demonstrated abnormality of the visualized soft tissue structures of the upper abdomen. RAD/Chest 1 View (Portable) IMPRESSION: Cardiomegaly. Electronically Signed: Ramakrishna Sainz MD at 11:33 EST , CC: SEAN Ruiz; Dr. Hira Leone DO Screw Machine Set Up Operator: Signed Teresita Ruiz CNP Work Phone: Start: 01-02-2022 End: 02-21-2022 12 Lead EKG Comments: See Note; NOTES: [facility] Cardiovascular Services [address] [place] [address] 12 Lead EKG 01/02/22 1007 MR#: [id number] Acct: [id number] Name: VASILE MILLER Rep #: [id number] : 1940 81 From: She Lentz MD Attending Dr: Status: DEP ER Ordering Dr: Hira Leone DO Date: 01/02/22 Location: ED Sex: F C Admitted: Test Reason : Blood Pressure : / mmHG Vent. Rate : 062 BPM Atrial Rate : 069 BPM P-R Int : 000 ms QRS Dur : 132 ms QT Int : 456 ms P-R-T Axes : 000 -20 174 degrees QTc Int : 462 ms Atrial fibrillation Non-specific intra-ventricular conduction block T wave abnormality, consider lateral ischemia Abnormal ECG Confirmed by DANIEL WEBB, JOSE ([id number]), editor house organ MING JOHNSON ([id number]) on 01/06/2022 1:26:51 PM Referred By: AL Confirmed By:TANO LENTZ MD 01/06/22 1326 Date She Lentz MD CC: COLLAR SHAPER OPERATOR-C Teresita Ruiz; Dr. Hira Leone, DO Signed Teresita Ruiz [facility] Work Phone: Start: 01-02-2022 End: 01-02-2022 Emergency Department Summary Comments: See Note; NOTES: [facility] Medical Records Department [address] [place] [address] Emergency Department Summary 01/02/22 MR#: [id number] Acct: [id number] Name: VASILE MILLER Rep #: [id number] : 1940 81 From: Hira Leone DO PCP: SEAN Palencia Status:DEP ER Location: ED HPI History of Present Illness Chief Complaint: Weakness Informant: patient Onset/Context/Timing Onset: Today Context: Gradual Onset Timing: Continuous Quality: Weakness Location: Generalized Worsened by: Nothing Relieved by: Glucose, metoprolol Narrative Narrative: Patient presents with generalized weakness and some mild sweating that began today. Patient states it began gradually. Patient states it began after she woke up today. Patient states she felt weak all over. Patient states nothing makes it worse. Patient was not sure if it was her atrial fibrillation or her blood sugar. Patient took an oral glucose tablet and 2 of her metoprolol tablets. Patient states she started feeling better after this. [facility] Medical History Aortic stenosis with bicuspid valve Diabetes Environmental allergies Essential (primary) hypertension Hyperlipidemia Morbid obesity with BMI of 40.0-44.9, adult Nonobstructive atherosclerosis of coronary artery Paroxysmal atrial fibrillation Persistent atrial fibrillation Rapid atrial fibrillation (12/2019) Secondary pulmonary arterial hypertension Home Medications magnesium chloride 71.5 mg PO DAILY #30 tablet. 12/26/14 [Rx Last Taken Unknown] warfarin 5 mg PO UD #30 tab 12/26/14 [Rx Last Taken Unknown] atorvastatin 40 mg tablet 40 mg PO QDAY 12/28/17 [History Last Taken Unknown] ergocalciferol (vitamin D2) 1,250 mcg (50,000 unit) capsule 50,000 unit PO QWEEK 12/31/17 [History Last Taken Unknown] metoprolol tartrate 50 mg tablet 50 mg PO BID #180 tab 11/04/18 [Rx Last Taken Unknown] losartan 100 mg tablet 100 mg PO QDAY #90 tab 09/10/20 [Rx Last Taken Unknown] alendronate 70 mg effervescent tablet 70 mg PO QWEEK 09/19/20 [History Last Taken Unknown] insulin aspart U-100 100 unit/mL (3 mL) subcutaneous pen 15 unit SC TID #45 ml 10/09/20 [Rx Last Taken Unknown] insulin detemir U-100 100 unit/mL (3 mL) subcutaneous pen 20 unit SC DAILY #18 ml 10/09/20 [Rx Last Taken Unknown] pen needle, diabetic 32 gauge x #400 ea 10/09/20 [Rx Last Taken Unknown] warfarin 1 mg tablet 2 mg PO DAILY tab 10/09/20 [History Last Taken Unknown] famotidine 40 mg tablet 40 mg PO DAILY 05/07/21 [History Last Taken Unknown] glimepiride 2 mg tablet 2 mg PO BID tab 05/07/21 [History Last Taken Unknown] hydrochlorothiazide 25 mg tablet 25 mg PO DAILY #90 tab 05/07/21 [Rx Last Taken Unknown] levothyroxine 25 mcg capsule 25 mcg PO DAILY 05/07/21 [History Last Taken Unknown] Allergy/AdvReac Type Severity Reaction Status Date / Time lisinopril AdvReac Severe Cough Verified 05/07/21 09:29 liraglutide [From Victoza] AdvReac Other Verified 05/07/21 09:29 Family History Father CAD (coronary artery disease) Brother Diabetes Sister Diabetes Breast cancer Hyperlipidemia Hypertension Grandmother CVA (cerebral vascular accident) Grandfather Sudden cardiac Son Atrial fibrillation Surgical History History of appendectomy History of cholecystectomy History of hysterectomy History of left heart catheterization (03/11/12) Social History Smoking Status: Never smoker ROS ROS ED Constitutional Constitutional ED: Reports sweats; Denies chills or fever(s) Eyes Eyes: Denies blurry vision or change in vision ENT ENT ED: Denies rhinorrhea or sore throat Cardiovascular Cardiovascular: Denies chest pain or palpitations Respiratory/Chest Respiratory/Chest: Denies cough or dyspnea Gastrointestinal Gastrointestinal: Denies nausea or vomiting Genitourinary Genitourinary ED: Denies dysuria or hematuria Musculoskeletal Musculoskeletal: Denies back pain or neck pain Integumentary Denies abscess or rash Neurologic Neurologic: Reports weakness; Denies headache(s) Allergic/Immunologic Allergic/Immunologic ED: Denies mouth swelling or urticaria EXAM Physical Exam Const Vital Signs: 01/02/22 09:04 01/02/22 09:06 01/02/22 10:46 Temperature 96.8 F L 96.8 F L Temperature Source Temporal Temporal Pulse Rate 80 80 72 Respiratory Rate 15 15 18 Blood Pressure 145/77 H 145/77 H 140/69 H Blood Pressure Mean 99 99 92 Pulse Ox 96 96 Oxygen Delivery Method Room Air Room Air 01/02/22 11:06 Temperature 98.7 F Temperature Source Temporal Pulse Rate 76 Respiratory Rate 16 Blood Pressure 122/74 H Blood Pressure Mean 90 Pulse Ox 96 Oxygen Delivery Method Room Air Positive well nourished, well developed, obese and unkempt General Appearance ED: unkempt and well developed Nutritional Appearance: obese HEENT Reports moist mucous membranes Neck supple and no JVD Resp normal respiratory effort and clear to auscultation bilaterally Cardio regular rate, regular rhythm and no murmurs GI normal to inspection, nondistended, normoactive bowel sounds and non-tender Palpation: soft Extremity normal to inspection General Extremety ED: Negative for edema or tenderness General Extremity: Negative for edema Neuro oriented x3, CN's II-XII intact bilaterally and no sensory deficits noted Sensorium / Orientation: alert Motor Exam: strength 5/5 throughout Psych mental status grossly normal Appearance: unkempt Skin no rashes or lesions noted MDM MDM MDM Narrative Medical decision making narrative: EKG was obtained. On my interpretation, there is atrial fibrillation/flutter with a rate of 62. There is nonspecific interventricular conduction delay. There are nonspecific ST-T wave changes. This is unchanged compared to previous EKG dated 12/27/2019. CBC shows a slight leukocytosis of 11.3. Comprehensive metabolic profile was essentially within normal limits. Glucose was 78. INR was therapeutic at 2.9. High-sensitivity troponin was normal at 12. Portable 1 view chest x-ray was obtained. On my interpretation, lung vela are clear. There is normal cardiac silhouette. Bony thorax is normal. There is no acute process noted. Radiologist also interpreted the x-ray and agrees. Patient was advised of her findings. Patient was advised that this may have been a hypoglycemic episode. Patient was instructed to continue her diet as prescribed. Patient was instructed to follow-up with her primary care physician in 5 to 7 days. Patient understood and was agreeable with the plan. All questions were answered. Lab Data Attestation: I reviewed the patient's lab results. Labs: Laboratory Results - last 24 hr 01/02/22 01/02/22 01/02/22 09:34 10:20 10:20 WBC 11.3 H RBC 4.30 Hgb 13.0 Hct 38.8 MCV 90.2 MCH 30.2 MCHC 33.5 RDW Std Deviation 46.6 H RDW Coeff of [place] 14.0 Plt Count 209 MPV 10.6 Immature Gran % (Auto) 1.100 H Neut % (Auto) 75.9 H Lymph % (Auto) 10.2 L [place] % (Auto) 11.4 H Eos % (Auto) 1.0 Baso % (Auto) 0.4 Absolute Neuts (auto) 8.6 H Absolute Lymphs (auto) 1.16 Nucleated RBC % 0 PT INR Sodium 140 Potassium 3.8 Chloride 107 Carbon Dioxide 29.0 Anion Gap 4 L BUN 31 H Creatinine 0.78 Estim Creat Clear Calc 40.38 Est GFR (MDRD) Af Amer 92 Est GFR (MDRD) Non-Af 76 BUN/Creatinine Ratio 39.9 H Glucose 78 Calcium 9.1 Total Bilirubin 0.80 AST 33 ALT 34 Alkaline Phosphatase 94 Troponin I High Sens 12 Total Protein 7.1 Albumin 3.2 Globulin 3.9 Albumin/Globulin Ratio 0.8 L POC Glucose 89 01/02/22 01/02/22 10:20 11:35 WBC RBC Hgb Hct MCV MCH MCHC RDW Std Deviation RDW Coeff of [place] Plt Count MPV Immature Gran % (Auto) Neut % (Auto) Lymph % (Auto) [place] % (Auto) Eos % (Auto) Baso % (Auto) Absolute Neuts (auto) Absolute Lymphs (auto) Nucleated RBC % PT Cancelled 29.7 H INR Cancelled 2.9 Sodium Potassium Chloride Carbon Dioxide Anion Gap BUN Creatinine Estim Creat Clear Calc Est GFR (MDRD) Af Amer Est GFR (MDRD) Non-Af BUN/Creatinine Ratio Glucose Calcium Total Bilirubin AST ALT Alkaline Phosphatase Troponin I High Sens Total Protein Albumin Globulin Albumin/Globulin Ratio POC Glucose Radiography Diagnostic Testing: Clinical Impression(s) from Imaging Studies Chest X-Ray 01/02/22 10:25 IMPRESSION: Cardiomegaly. Electronically Signed: Ramakrishna Sainz MD at 11:33 EST , EKG Initial EKG: Attestation: I personally reviewed and interpreted this EKG as follows: Interpretation: No Acute Injury Pattern and Atrial Fibrillation (62) Prior EKG tracings: available for review Prior: Unchanged (12/27/2019) Discharge Plan Triage Chief Complaint: Weakness ED Provider: Hira Leone Dx/Rx/DC Orders Clinical Impression: General weakness, Hypoglycemia Instructions: ED Diabetic Insulin Reaction, ED Weakness (Uncertain Cause) Prescriptions: No Action atorvastatin 40 mg tablet 40 mg PO QDAY RF: 0 ergocalciferol (vitamin D2) 50,000 unit capsule 50,000 unit PO QWEEK RF: 0 warfarin 1 mg tablet 2 mg PO DAILY RF: 0 insulin detemir U-100 100 unit/mL (3 mL) insulin pen 20 unit SC DAILY Qty: 18 RF: 1 insulin aspart U-100 [Novolog Flexpen U-100 Insulin] 100 unit/mL (3 mL) insulin pen 15 unit SC TID Qty: 45 RF: 4 (DME) pen needle, diabetic [BD Ultra-Fine Kimber Pen Needle] 32 gauge x 5/32 needle See Rx Instructions .ROUTE .MEDSUPPLY Qty: 400 RF: 4 alendronate 70 mg tablet, effervescent 70 mg PO QWEEK RF: 0 famotidine 40 mg tablet 40 mg PO DAILY RF: 0 levothyroxine 25 mcg capsule 25 mcg PO DAILY RF: 0 glimepiride 2 mg tablet 2 mg PO BID RF: 0 hydrochlorothiazide 25 mg tablet 25 mg PO DAILY Qty: 90 RF: 3 warfarin 5 MG tablet 5 mg PO UD Qty: 30 RF: 0 magnesium chloride 71.5 MG tablet,delayed release (DR/EC) 71.5 mg PO DAILY Qty: 30 RF: 0 metoprolol tartrate 50 mg tablet 50 mg PO BID Qty: 180 RF: 3 losartan 100 mg tablet 100 mg PO QDAY Qty: 90 RF: 3 Primary Care Provider: Teresita Ruiz NP Referrals: Teresita Ruiz NP, COLLAR SHAPER OPERATOR-C [Primary Care Provider] - 3-5 Days Disposition Disposition: Home, Self Care What to do if you have Problems For any increased pain, shortness of breath, bleeding, nausea or vomiting, chest pain, or any unexpected problems, contact your Primary Care Provider. Call [facility] ([phone]) or report to the closest Emergency Room. Call 911 if necessary. 01/02/22 0030 <Electronically signed by Hira Leone DO> Cosigner Signature (if applicable): CC: COLLAR SHAPER OPERATOR-C Teresita Ruiz Signed Teresita Ruiz 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 Work Phone: Start: 09-13-2021 End: 09-13-2021 Knee 4 or More Views Comments: See Note; NOTES: [facility] [address] [place] [address] Knee 4 or More Views MR#: [id number] Acct: [id number] Name: VASILE MILLER Rep #: [id number] : 1940 F 80 From: Maximo Vargas MD PCP: SEAN Palencia Status: DEP AMB Study: Knee 4 or More Views Date of Exam: 09/13/21 Exam# [id number] Ordering Dr: Teresita Ruiz NP STUDY: X-RAY - RIGHT KNEE REASON FOR EXAM: Female, 80 years old. Pain, decreased range of motion TECHNIQUE: 4 view(s) of the knee. COMPARISON: None. FINDINGS: Normal visualized distal femur. Normal visualized proximal tibia and fibula. Normal proximal tibiofibular articulation. There is mild degenerative arthrosis of the medial femorotibial compartment. There is moderate degenerative arthrosis of the lateral femorotibial compartment with moderate joint space narrowing. There is moderate degenerative arthrosis of the patellofemoral articulation. The soft tissue structures are unremarkable. RAD/Knee 4 or More Views IMPRESSION: Degenerative arthrosis. Electronically Signed: Vince Vargas MD at 12:47 EDT , Service support , CC: ALYSSA-[facility]ace Ruiz Screw Machine Set Up Operator: Signed Teresita Ruiz CNP Work Phone: Start: 05-07-2021 End: 05-07-2021 Cardiology Visit Report Comments: See Note; NOTES: [facility] [address] [place] [address] OFFICE VISIT Date of Service: 05/07/21 MR#: [id number] Acct: [id number] Name: VASILE MILLER Rep #: [id number] : 1940 Provider: Dr. Joel Judge MD Age/Sex: 80/F Location[facility] Status: Signed HPI HPI History of Present Illness Details: VASILE MILLER, is a 80 F who presents to the office today for a follow-up visit. She is a lady with a history of hypertension, hyperlipidemia, aortic stenosis with a bicuspid aortic valve, and paroxysmal atrial fibrillation. She denies chest, arm, jaw, or neck discomfort. Her exercise tolerance is limited d/t lower back pain. She denies symptoms of CHF, palpitations, lightheadedness, dizziness, near syncope, or syncopal episodes. She denies edema or claudication issues. She denies PND, blood in urine, blood in stool, epistaxis, myalgia, or unexplainable fatigue. She tells me that her blood pressure is usually elevated when she goes to see this physician. It was elevated at her last visit as well. Her last echocardiogram had demonstrated an ejection fraction of 50%, no wall motion abnormalities, and pulmonary systolic pressure of 40 mmHg. Her physical exam here today is unremarkable. Intake Vital Signs 05/07/21 09:28 05/07/21 09:29 Height 5 ft 2 in Weight: 237 lb BMI 42.6 43.3 BP 167/88 H Respiration 18 Pulse 92 Pulse Oximetry (%) 95 Intake Visit Reasons: 6 m fu Allergies lisinopril Adverse Reaction (Severe, Verified 05/07/21 09:29) Cough liraglutide [From Victoza] Adverse Reaction (Verified 05/07/21 09:29) Other Medications magnesium chloride 71.5 mg PO DAILY #30 tablet. 12/26/14 [Rx Confirmed 05/07/21] warfarin 5 mg PO UD #30 tab 12/26/14 [Rx Confirmed 05/07/21] atorvastatin 40 mg tablet 40 mg PO QDAY 12/28/17 [History Confirmed 05/07/21] ergocalciferol (vitamin D2) 1,250 mcg (50,000 unit) capsule 50,000 unit PO QWEEK 12/31/17 [History Confirmed 05/07/21] metoprolol tartrate 50 mg tablet 50 mg PO BID #180 tab 11/04/18 [Rx Confirmed 05/07/21] losartan 100 mg tablet 100 mg PO QDAY #90 tab 09/10/20 [Rx Confirmed 05/07/21] alendronate 70 mg effervescent tablet 70 mg PO QWEEK 09/19/20 [History Confirmed 05/07/21] insulin aspart U-100 100 unit/mL (3 mL) subcutaneous pen 15 unit SC TID #45 ml 10/09/20 [Rx Confirmed 05/07/21] insulin detemir U-100 100 unit/mL (3 mL) subcutaneous pen 20 unit SC DAILY #18 ml 10/09/20 [Rx Confirmed 05/07/21] pen needle, diabetic 32 gauge x #400 ea 10/09/20 [Rx Confirmed 05/07/21] warfarin 1 mg tablet 2 mg PO DAILY tab 10/09/20 [History Confirmed 05/07/21] famotidine 40 mg tablet 40 mg PO DAILY 05/07/21 [History Confirmed 05/07/21] glimepiride 2 mg tablet 2 mg PO BID tab 05/07/21 [History Confirmed 05/07/21] hydrochlorothiazide 25 mg tablet 25 mg PO DAILY #90 tab 05/07/21 [Rx Confirmed 05/07/21] levothyroxine 25 mcg capsule 25 mcg PO DAILY 05/07/21 [History Confirmed 05/07/21] Ejection fraction %: 50 to 54 [facility] Medical History Aortic stenosis with bicuspid valve Diabetes Environmental allergies Essential (primary) hypertension Hyperlipidemia Morbid obesity with BMI of 40.0-44.9, adult Nonobstructive atherosclerosis of coronary artery Paroxysmal atrial fibrillation Persistent atrial fibrillation Rapid atrial fibrillation (12/2019) Secondary pulmonary arterial hypertension Surgical History History of appendectomy History of cholecystectomy History of hysterectomy History of left heart catheterization (03/11/12) Family History Father CAD (coronary artery disease) Brother Diabetes Sister Diabetes Breast cancer Hyperlipidemia Hypertension Grandmother CVA (cerebral vascular accident) Grandfather Sudden cardiac Son Atrial fibrillation Social History Smoking Status: Never smoker ROS Const Const: Negative for fatigue, weakness, headache(s), frequent falls, difficulty sleeping or excessive sweating Eyes Eyes: Negative for loss of peripheral vision, transient loss of vision, blurry vision, double vision or tunnel vision ENT ENT: Negative for headache(s), dizziness, Nosebleed/epistaxis or balance problems Cardio Chest Pain: No Palpitations: No Edema: None Muscle aches with walking: None Resp Respiratory: Positive for SOB with activity; Negative for SOB at rest, SOB orthopnea SOB lying down, Cough or paroxysmal nocturnal dyspnea GI GI: Negative nausea, vomiting, heartburn or black,tarry stools : Negative for hematuria Musc Musc: Negative for muscle aches/ myalgia, muscle weakness, joint pain or balance problems Skin Skin: Negative non-healing lesions, rash or unusual bruising Neuro Neuro: Negative for dizziness, lightheadedness, near syncope, syncope, orthostatic symptoms, frequent falls, headache(s), weakness, blurry vision, double vision or lack of coordination Cole Hematologic/Lymphatic: Negative for easy bleeding or easy bruising Endo Endo: Negative for fatigue, excessive sweating or increased thirst/drinking Psych Psych: Negative for anxiety or depression Allergy Allergy/Immunology: Negative for hives and Negative for rash Cardiology Exam Const Appearance: cooperative, healthy appearing, no acute distress, well developed and well groomed Nutritional Appearance: average body habitus and well nourished Orientation: alert, awake and oriented x3 Head Head: normal to inspection, normocephalic and atraumatic Ears: hearing grossly normal bilaterally and external ears normal Nose: external nose normal, nares normal, nasal mucous membranes and turbinates normal, septum normal and no nasal discharge Face and Sinus: face symmetric Mouth: oral mucosae normal, tongue normal, oropharynx normal and moist mucous membranes Teeth and gingiva: dentition normal Throat: posterior oropharynx normal, tonsils normal and uvula midline Eyes General: appearance normal, both eyes and all related structures Eyelids: eyelids normal Conjunctivae: conjunctivae normal Pupils: PERRL, normal by confrontation and accommodation normal EOM: EOM intact bilaterally Neck Neck: normal visual inspection, trachea midline and no JVD JVD: +5 Carotids: normal carotid upstroke and bounding pulses Chest Chest inspection: normal inspection of the chest, symmetric chest movement and normal respiratory effort Auscultation: Bilateral: Clear to Auscultation Cardio Palpation: normal PMI Rate: regular rate Rhythm: regular rhythm Heart sounds: S1 normal, S2 normal and normal, physiologic split S2; Negative rub, gallop or murmur GI GI: normal to inspection, soft, no hepatosplenomegaly and bowel sounds present Neuro General: patient alert, patient awake, patient oriented x3, gait normal, moves all extremities and no focal sensory deficit Skin Skin: no rashes or lesions noted Extremities Pulses: Normal: Right Femoral Pulse, Left Femoral Pulse, Right Dorsalis Pedis Pulse, Left Dorsalis Pedis Pulse, Right Posterior Tibial Pulse, Left Posterior Tibial Pulse, Right Radial Pulse and Left Radial Pulse Lower Extremity Edema: None: Bilateral Musculoskel Musculoskeletal: No joint tenderness Psych Psychological: normal affect Assessment and Plan Assessment and Plan (1) Essential (primary) hypertension: Status: Chronic Plan - Dr. Joel Judge MD: Her blood pressure remains elevated today. I would recommend that we put her on hydrochlorothiazide in addition to the metoprolol and the losartan. I think this would give her better control of her blood pressure. She will continue to follow with you regarding the above. (2) Paroxysmal atrial fibrillation: Status: Chronic Plan - Dr. Joel Judge MD: She does have evidence of paroxysmal atrial fibrillation and is on anticoagulation with metoprolol as well as Coumadin therapy with an INR goal of 2-3. (3) Aortic stenosis with bicuspid valve: Status: Chronic Plan - Dr. Joel Judge MD: Her last echocardiogram performed demonstrated an ejection fraction of 50%, no wall motion abnormalities, and a peak mean gradient of 24 over 14 mmHg. The above is consistent with mild aortic stenosis. No changes were made and should be followed with serial echocardiograms. Plan Details Other Medications: New: hydrochlorothiazide 25 mg PO DAILY 90 tabs 3RF Additional Comments: Portions of this documentation were copied and pasted from previous office visit notes to provide a cohesive continuity of the history. The note has been reviewed, edited, and updated, as necessary. Follow Up: 8 Months (patrick) Coding Level of Care Code Off vis,est,level 4 Diagnoses Essential (primary) hypertension I10 Paroxysmal atrial fibrillation I48.0 Aortic stenosis with bicuspid valve Q23.0; Q23.1 Coding Level of Care Code Off vis,est,level 4 Diagnoses Essential (primary) hypertension I10 Paroxysmal atrial fibrillation I48.0 Aortic stenosis with bicuspid valve Q23.0; Q23.1 Supplemental Info Supplemental Information Labs: No Data to Display Diagnostics: Electrocardiogram Echocardiogram Chest X-Ray Pulmonary: No Data to Display 05/07/21 1140 <Electronically signed by Joel Judge MD> Date Joel Judge MD Cosigner Signature: Date (if applicable) CC: COLLAR SHAPER OPERATORAminah Ruiz [facility] Work Phone: Start: 02-27-2021 End: 02-28-2021 Shoulder min 2 Views Comments: See Note; NOTES: [facility] [address] [place] [address] Shoulder min 2 Views MR#: [id number] Acct: [id number] Name: VASILE MILLER Rep #: [id number] : 1940 F 80 From: Ramakrishna washington MD PCP: SEAN Palencia Status: DEP AMB Study: Shoulder min 2 Views Date of Exam: 02/27/21 Exam# [id number] Ordering Dr: Teresita Ruiz NP STUDY: X-RAY - LEFT SHOULDER REASON FOR EXAM: Female, 80 years old. Pain TECHNIQUE: 4 view(s) of the shoulder. COMPARISON: None. FINDINGS: Normal glenohumeral articulation. There is degenerative arthrosis of the acromioclavicular joint without inferior osseous spur formation. Normal acromion. Normal humeral head and visualized proximal humerus. The soft tissue structures are unremarkable. Normal visualized pulmonary apex. RAD/Shoulder min 2 Views IMPRESSION: Degenerative changes of the acromioclavicular joint. Electronically Signed: Ramakrishna Sainz MD at 14:10 EDT , Service support , CC: COLLAR SHAPER OPERATOR-C Teresita Ruiz Screw Machine Set Up Operator: Signed Teresita Ruiz Work Phone: Start: 10-26-2020 End: 10-26-2020 Echo Complete W/ Contrast Comments: See Note; NOTES: [facility] [address] [place] [address] Echo Complete W/ Contrast 10/26/20 0956 MR#: [id number] Acct: [id number] Name: VASILE MILLER Rep #: [id number] : 1940 79 From: Joel Judge MD Attending Dr: SEAN Roca Status: REG CLI Ordering Dr: Elkin Beltran NP, NP-C Date: 10/26/20 Location: [facility] Sex: F C Admitted: Reason For Study: re-evaluate bicuspid aortic valve Procedure This was a 2D Doppler, Color Flow transthoracic echocardiogram. The study was technically difficult. DUE to body habitus. Contrast injection was performed. Exam performed in department. Left Ventricle Normal LV size. Mild concentric left ventricular hypertrophy. The estimated ejection fraction is 50 %. No regional wall motion abnormalities noted. Right Ventricle Normal RV size. Normal systolic function. Atria The left atrium is mildly enlarged. Normal right atrium. Mitral Valve Normal mitral valve. Tricuspid Valve Normal tricuspid valve. Mild (1+) tricuspid valve insufficiency. Pulmonary artery systolic pressure is 40 mmHg. Aortic Valve Mild focal aortic valve calcification. Bicuspid aortic valve. Peak aortic valve gradient 24 mmHg. Mean aortic valve gradient 14 mmHg. Mild aortic stenosis. Great Vessels Mildly dilated aortic root. The pulmonary artery is normal size. Normal inferior vena cava. Pericardium/Pleural No pericardial effusion. Medication 22 gauge I.V. with prn adaptor inserted into right arm. Diluted definity 3.0ml given slow IV push to enhance endocardial definition. MMode/2D Measurements Calculations LVIDd: 4.7 cm IVSd: 1.3 cm LVOT diam: 2.1 cm LVIDs: 3.4 cm LVPWd: 1.3 cm LVOT area: 3.5 cm2 RVDd: 3.7 cm FS: 27.9 % Ao root diam: 3.8 cm LAV(MOD-bp): 87.6 ml LA A4 area: 22.2 cm2 LAV(MOD-bp) Indexed: 42.9 ml/m2 LAV(MOD-sp2): 90.9 ml LAV(MOD-sp4): 74.0 ml LA dimension(2D): 4.1 cm RA A4 area: 16.8 cm2 Doppler Measurements Calculations MV E max yunier: 102.9 cm/sec Ao V2 max: 246.1 cm/sec LV V1 max: 83.1 cm/sec Ao max P.3 mmHg LV V1 max P.8 mmHg Ao V2 mean: 179.2 cm/sec LV V1 mean P.5 mmHg Ao mean P.1 mmHg LV V1 mean: 58.7 cm/sec Ao V2 VTI: 48.7 cm LV V1 VTI: 17.2 cm KINSEY(I,D): 1.2 cm2 KINSEY(V,D): 1.2 cm2 SV(LVOT): 60.7 ml PA V2 max: 58.0 cm/sec TR max yunier: 296.0 cm/sec TR max P.8 mmHg Interpretation Summary Normal LV size. Mild concentric left ventricular hypertrophy. Mean aortic valve gradient 14 mmHg. The estimated ejection fraction is 50 %. Mild (1+) tricuspid valve insufficiency. Pulmonary artery systolic pressure is 40 mmHg. Bicuspid aortic valve. Contrast injection was performed. Compared to prior study, there is no significant change. _ Ordering Physician: Elkin Beltran Referring Physician: Teresita Ruiz Performed By: Nichole Rainey, NAEEM, RVT 10/26/20 1332 Date Joel Judge MD CC: SEAN Beltran; SEAN Ruiz Date Dictated: 10/26/20 0956 Date Transcribed: 10/26/20 133 Screw Machine Set Up Operator: Signed Teresita Ruiz Start: 10-09-2020 End: 10-13-2020 Endocrinology Visit Report Comments: See Note; NOTES: [facility] [address] [place] [address] OFFICE VISIT Date of Service: 10/09/20 MR#: [id number] Acct: [id number] Name: VASILE MILLER Rep #: [id number] : 1940 Provider: Deonte Segura Age/Sex: 79/F Location[place] [facility] [place] Status: Signed Intake Vital Signs 10/09/20 Height 5 ft 2 in 10/09/20 Weight: 233 lb 10/09/20 BP 130/78 H Intake Visit Reasons: blood sugar high Chief Complaint: Diabetes Allergies lisinopril Adverse Reaction (Severe, Verified 09/19/20 09:49) Cough liraglutide [From Victoza] Adverse Reaction (Verified 09/19/20 09:49) Other [facility] Medical History 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) drug therapy (Chronic) Hyperlipidemia (Chronic) Paroxysmal atrial fibrillation (Chronic) Bicuspid aortic valve (Chronic) Left ventricular hypertrophy (Chronic) Atherosclerotic heart disease of [place] coronary artery without angina pectoris (Chronic) Edema (Chronic) Nonrheumatic aortic (valve) stenosis with insufficiency (Chronic) Shortness of breath (Chronic) Atypical chest pain (Chronic) Rapid atrial fibrillation (Chronic) Diabetes (Chronic) Atrial fibrillation (Chronic) Dyslipidemia (Chronic) HTN (hypertension) (Chronic) Morbid obesity with BMI of 40.0-44.9, adult (Chronic) Environmental allergies (Acute) Surgical History History of appendectomy (Chronic) History of cholecystectomy (Chronic) History of hysterectomy (Chronic) Family History Father CAD (coronary artery disease) Brother Diabetes Sister Diabetes Breast cancer Hyperlipidemia Hypertension Grandmother CVA (cerebral vascular accident) Grandfather Sudden cardiac Son Atrial fibrillation Social History (Updated 10/13/20 @ 17:[address] Michel Cobb MD) Smoking Status: Never smoker HPI HPI Chief Complaint: Diabetes Details: VASILE MILLER, is a 79 F who presents to the office today for evaluation and management of diabetes type 2. She is difficult to interview. She does not try to answer my questions I don't remember. She has had diabetes about 30 years. She has known stage 3 CKD. She is taking Levemir 20 units twice daily and glimepiride 2 mg twice daily. Her diet history seems well balanced with carb/protein. ROS Const Constitutional: Positive for fatigue, frequent falls and headache(s); no anorexia, body ache, chills, excessive sweating, fever(s), decreased energy, malaise, night sweats, snoring, weakness, weight change, sleep problems, abnormal sleep pattern, change in appetite or other Eyes Eyes: Positive for blurry vision; no change in vision, double vision, discharge, dry eyes, bulging eyes, floaters, visual disturbances, eye pain, light sensitivity, spots in vision, tunnel vision or other ENT ENT: Positive for nosebleed/epistaxis and headache(s); no abnormal hearing, ear pain, ear discharge, ear pressure, hearing loss, tinnitus, dizziness/vertigo, balance problems, nasal congestion, nasal obstruction, nose pain, sinus pressure, sinus pain, nasal discharge, post nasal drip, facial pain, dental pain, dry mouth, difficulty swallowing, bad breath, hoarseness, lip swelling, mouth lesions, mouth pain, neck pain, sore throat, tongue swelling, throat swelling or other Cardio Cardiology: Positive for dyspnea on exertion; no chest pain at rest, chest pain with exertion, leg pain with exertion, excessive sweating, shortness of breath, generalized swelling, irregular heart rhythm, lightheadedness, orthopnea, radiating jaw, neck or arm pain, fast heart rate, slow heart rate, palpitations or other Musc Musculoskeletal: Positive for back pain, muscle cramps and stiffness; no abnormal walking, joint pain, deformity, joint swelling, limited range of motion, loss of height, muscle weakness, decreased muscle mass, body aches, neck pain, numbness, radiating pain into limb, tingling, Arthritis, restless legs, leg pain with exertion, sciatica, leg pain at night or other Neuro Neurology: Positive for frequent falls and headache(s); no abnormal walking, abnormal hearing, abnormal movements, abnormal speech, behavioral changes, confusion, unsteady gait/balance, dizziness, weakness, lack of coordination, loss of vision, memory loss, numbness, tingling, visual disturbances, restless legs, fainting, tremor(s) or other Psych Psychiatric: No abnormal sleep pattern, No lack of enjoyment, No anxiety, No behavioral changes, No change in appetite, No confusion, No depression, No difficulty concentrating, No hopelessness, No irritability, No memory loss, No mood swings, No panic attacks, No paranoia, No Thoughts of harming yourself/Others, No hallucinations, No other Cole/Lymp Hematologic/Lymphatic: No easy bleeding, easy bruising, enlarged lymph nodes or other Resp Respiratory: Positive for cough; no change in phlegm color, chest congestion, excessive phlegm production, hemoptysis, pain on inspiration, shortness of breath, pain with cough, snoring, stridor, wheezing or other Gastro GI: No abdominal pain, belching, bloating, change in bowel habits, change in stool character, coffee ground emesis, constipation, cramping, diarrhea, heartburn, difficulty swallowing, feeling full early, excessive flatus, incontinent of stools, Vomiting blood/hematemesis, blood in stool, loose stools, Black,tarry stools, nausea/dyspepsia, pain with swallowing, vomiting or other Genitourinary-Female: No difficulty urinating, burning urination, painful urination, urinary incontinence, urinary frequency, urinary urgency, urinary hesitancy, urinary retention, blood in urine, Frequent nighttime urination/ nocturia, post void dribbling, suprapubic fullness, side pain, sexual problems, genital lesions, genital itching, hot flashes, abnormal periods, abnormal vaginal bleeding, absent period, painful periods, light periods, heavy periods, difficulty getting , painful intercourse, pelvic pain, vaginal dryness, vaginal odor, Vaginal Itching or other Skin Skin: No acne, hair loss, change in hair, nail changes, boil, change in skin color, dry skin, redness, excessive hair growth, yellowing of the skin, lesions, itching, rash, skin pain, skin ulcer, sores, skin swelling, wounds or other Breast Breast: No change in breast shape, breast lump, breast pain, breast skin changes, breast swelling, nipple discharge or other Endo Endocrine: Positive for fatigue; no change in body appearance, cold intolerance, excessive sweating, flushing, heat intolerance, increased thirst/drinking, increased hunger, increased urination or other Aller/Imm Allergy/Immunologic: No food intolerance, itchy eyes, lip swelling, seasonal allergy symptoms, throat swelling, tongue swelling, hives, wheezing or other Exam Const General: cooperative, healthy appearing, comfortable, no acute distress, well developed, not cushingoid Nutritional Appearance: well nourished Orientation: alert, awake, oriented x3 HENMT Head: normal to inspection Ears: hearing grossly normal bilaterally Nose: external nose normal Mouth: oral mucosae normal Eyes General: appearance normal, both eyes and all related structures Alignment and Position: alignment normal Periorbital: periorbital findings normal Eyelids: eyelids normal Conjunctivae: conjunctivae normal Neck Neck: normal visual inspection Neck mass: No Thyroid: thyroid normal Carotids: no bruits Lymphatic: no lymphadenopathy noted Chest Chest palpation inspection: normal inspection of the chest Resp Effort Inspection: normal respiratory effort, able to speak in complete sentences, symmetric chest movement, no audible wheezes, no cough Auscultation: Bilateral: Clear to Auscultation Cardio Rate: regular rate Rhythm: abnormal rhythm Pulses: posterior tibial pulses present GI Inspection: normal to inspection Auscultation: normal bowel sounds Palpation: soft, no hepatosplenomegaly Musc Musculoskeletal: No muscle weakness Skin General: no rashes or lesions noted Neuro General: alert, awake, oriented x3 Cranial Nerves: CN's II-XI intact bilaterally Cognition: normal cognition Speech: speech normal Gait: normal gait Motor: muscle tone normal throughout Sensory Exam: lower extremity (Decreased temperature and vibratory sensation to knee.) Extrem General: no edema Psych Appearance: grossly normal Mental Status: mental status grossly normal Mood: congruent mood Affect: normal affect Speech and Movement: speech and movement normal Attitude: cooperative Thought Process: normal Thought Content: normal Judgment: judgment good Assessment Plan 1. Type 2 diabetes mellitus with stage 3a chronic kidney disease, with long-term current use of insulin E11.21; N18.31; Z79.4 Plan Diabetes education provided. I reviewed with the patient the risk of developing and worsening of diabetes complications including retinopathy, neuropathy, nephropathy, heart attack, stroke, ampuation, and sudden . I emphasized the need to have improved control. Levemir 20 units Novolog 10 units tid with meals. Send logs regularly. 2. Polyneuropathy due to type 2 diabetes mellitus E11.42 Plan The patient was counseled regarding the importance of foot care including daily visual and tactile inspection. The patient was instructed not to go barefoot and to always wear socks with their shoes. 3. Mixed hyperlipidemia E78.2 Plan Continue statin. 4. Essential hypertension I10 Plan Controlled, please continue current medications. 5. Morbid obesity with BMI of 40.0-44.9, adult E66.01; Z68.41 Plan Nutritional counseling provided, avoid flour, sugar, and artificial sweeteners. Plate method dietary sheet given to the patient and explained in detail. Match all insulin requiring foods with a non-insulin requiring food. Also, choose high fiber, low glycemic index carbohydrates. Plan Detail Other Medications New: insulin aspart U-100 (Novolog Flexpen U-100 Insulin aspart) 15 units (0.15 mL) subcut TID 45 mL 4RF pen needle, diabetic (BD Ultra-Fine Kimber Pen Needle) 4 times daily 400 ea 4RF Changed: From: insulin detemir U-100 20 units subcut BID To: insulin detemir U-100 20 units (0.2 mL) subcut DAILY 18 mL 1RF Coding Level of Care Code Off vis,new,level 5 Diagnoses Type 2 diabetes mellitus with stage 3a chronic kidney disease, with long-term current use of insulin E11.21; N18.31; Z79.4 ?Diabetes mellitus type: type 2 ?Diabetes mellitus longterm insulin use: with longterm use ?Diabetes mellitus complication status: with kidney complications ?Diabetes mellitus complication detail: with chronic kidney disease ?Chronic kidney disease stage: stage 3 (moderate) ?Chronic kidney disease stage 3 subtype: stage 3a (GFR 45-59) Polyneuropathy due to type 2 diabetes mellitus E11.42 Mixed hyperlipidemia E78.2 ?Hyperlipidemia type: mixed hyperlipidemia Essential hypertension I10 ?Hypertension type: essential hypertension Morbid obesity with BMI of 40.0-44.9, adult E66.01; Z68.41 10/13/20 8250 <Electronically signed by Michel Cobb MD> Date Michel Cobb MD Cosigner Signature: Date (if applicable) CC: COLLAR SHAPER OPERATOR-C Teresita Lo Sitadaya Start: 09-19-2020 End: 09-19-2020 Cardiology Visit Report Comments: See Note; NOTES: [facility] [address] [place], [place] [address] OFFICE VISIT Date of Service: 09/19/20 MR#: [id number] Acct: [id number] Name: VASILE MILLER Rep #: [id number] : 1940 Provider: SEAN palomino Age/Sex: 79/F [place] [facility] Status: Signed HPI [facility] History of Present Illness Details: VASILE MILLER, is a 79 F who presents to the office today for a follow-up visit. She is a lady with a history of hypertension, hyperlipidemia, aortic stenosis with a bicuspid aortic valve, and paroxysmal atrial fibrillation. She denies chest, arm, jaw, or neck discomfort. Her exercise tolerance is limited d/t lower back pain. She denies symptoms of CHF, palpitations, lightheadedness, dizziness, near syncope, or syncopal episodes. She denies edema or claudication issues. She denies PND, blood in urine, blood in stool, epistaxis, myalgia, or unexplainable fatigue. She states following with Teresita Hernandez and Dr. Sun and blood pressure has been better controlled. She was sent to ER in December 2019 for Afib-RVR. She states improved symptoms with metoprolol and utilizes PRN if notes SOB when lying flat. Since changing her Lasix more consistently this has improved as well. She states periodic productive cough. Intake Vital Signs 09/19/20 Height 5 ft 2 in 09/19/20 Weight: 233 lb 09/19/20 BP 159/87 H 09/19/20 Blood Pressure Location Lt brachial 09/19/20 Position Sitting 09/19/20 Respiration 18 09/19/20 Pulse 83 09/19/20 Pulse Source Monitor 09/19/20 Pulse Oximetry (%) 95 Intake Visit Reasons: overdue for f/up, med refills [employer] Required: No Accompanied by: None Is patient in pain?: No Allergies lisinopril Adverse Reaction (Severe, Verified 09/19/20 09:49) Cough liraglutide [From Victoza] Adverse Reaction (Verified 09/19/20 09:49) Other Medications Glimepiride [Amaryl] 2 mg PO BID 07/25/14 [History Confirmed 09/19/20] Insulin Detemir [Levemir FlexPen] 70 units SC BID 07/25/14 [History Confirmed 09/19/20] Omeprazole [Prilosec] 40 mg PO DAILY #30 cap 07/26/14 [Rx Confirmed 09/19/20] Magnesium Chloride [Slow-Mag] 71.5 mg PO DAILY #30 tablet.dr 12/26/14 [Rx Confirmed 09/19/20] Warfarin [Coumadin] 5 mg PO UD #30 tab 12/26/14 [Rx Confirmed 09/19/20] atorvastatin 40 mg tablet 40 mg PO QDAY 12/28/17 [History Confirmed 09/19/20] ergocalciferol (vitamin D2) 1,250 mcg (50,000 unit) capsule 50,000 unit PO QWEEK 12/31/17 [History Confirmed 09/19/20] furosemide 40 mg tablet 40 mg PO QDAY 06/03/18 [History Confirmed 09/19/20] metoprolol tartrate 50 mg tablet 50 mg PO BID #180 tab 11/04/18 [Rx Confirmed 09/19/20] losartan 100 mg tablet 100 mg PO QDAY #90 tab 09/10/20 [Rx Confirmed 09/19/20] alendronate 70 mg effervescent tablet 70 mg PO QWEEK 09/19/20 [History Confirmed 09/19/20] levothyroxine 50 mcg tablet 25 mcg PO QDAY tab 09/19/20 [History Confirmed 09/19/20] [facility] Medical History (Updated 01/01/18 @ 16:36 by Elkin Beltran COLLAR SHAPER OPERATOR, COLLAR SHAPER OPERATOR-C) 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) drug therapy (Chronic) Hyperlipidemia (Chronic) Paroxysmal atrial fibrillation (Chronic) Bicuspid aortic valve (Chronic) Left ventricular hypertrophy (Chronic) Atherosclerotic heart disease of [place] coronary artery without angina pectoris (Chronic) Edema (Chronic) Nonrheumatic aortic (valve) stenosis with insufficiency (Chronic) Shortness of breath (Chronic) Atypical chest pain (Chronic) Rapid atrial fibrillation (Chronic) Diabetes (Chronic) Atrial fibrillation (Chronic) Dyslipidemia (Chronic) HTN (hypertension) (Chronic) Morbid obesity with BMI of 40.0-44.9, adult (Chronic) Surgical History (Updated 12/31/17 @ 13:36 by Elkin Beltran NP, COLLAR SHAPER OPERATOR-C) History of appendectomy (Chronic) History of cholecystectomy (Chronic) History of hysterectomy (Chronic) Family History (Updated 12/31/17 @ 13:35 by Elkin Beltran NP, COLLAR SHAPER OPERATOR-C) Father CAD (coronary artery disease) Brother Diabetes Sister Diabetes Breast cancer Hyperlipidemia Hypertension Grandmother CVA (cerebral vascular accident) Grandfather Sudden cardiac Son Atrial fibrillation Social History (Updated 09/19/20 @ 12:10 by Elkin Beltran NP, COLLAR SHAPER OPERATOR-C) Smoking Status: Never smoker ROS Const Const: Negative for fatigue, weakness, body ache, fever(s) or chills ENT ENT: Negative for dizziness Cardio Chest Pain: No Palpitations: No Edema: None Muscle aches with walking: None Resp Respiratory: Positive for SOB orthopnea SOB lying down and Cough; negative for SOB with activity, SOB at rest or paroxysmal nocturnal dyspnea GI GI: Negative nausea, vomiting blood/hematemesis, bright, red blood in stools or black,tarry stools : Negative for hematuria or frequent nighttime urination/ nocturia Musc Musc: Positive for joint pain; negative for muscle aches/ myalgia Skin Skin: Negative non-healing lesions or rash Neuro Neuro: Negative for dizziness, lightheadedness, near syncope, syncope, orthostatic symptoms or weakness Endo Endo: Negative for fatigue Allergy Allergy/Immunology: Negative for rash Cardiology Exam Const Appearance: cooperative, healthy appearing, comfortable and no acute distress Nutritional Appearance: well nourished and obese Orientation: alert, awake and oriented x3 Head Head: normal to inspection Ears: hearing grossly normal bilaterally Nose: external nose normal Face and Sinus: face symmetric Mouth: oral mucosae normal Eyes General: appearance normal, both eyes and all related structures Eyelids: eyelids normal EOM: EOM intact bilaterally Neck Neck: normal visual inspection and no JVD Carotids: normal carotid upstroke Chest Chest inspection: normal inspection of the chest, symmetric chest movement and normal respiratory effort; negative cough Auscultation: Bilateral: Clear to Auscultation Cardio Palpation: normal PMI Rhythm: regular rhythm and ectopic beats Heart sounds: S1 normal, S2 normal and murmur; negative rub or gallop Murmur: Grade 2/6, soft and KONSTANTIN loudest primary aortic area GI GI: normal to inspection and obese Neuro General: alert, awake, oriented x3 and CN's II-XI intact bilaterally Skin Skin: no rashes or lesions noted Extremities Pulses: Normal: Right Posterior Tibial Pulse, Left Posterior Tibial Pulse, Right Radial Pulse, Left Radial Pulse Lower Extremity Edema: None: Bilateral Psych Psychological: normal affect Assessment Plan 1. Paroxysmal atrial fibrillation I48.0 Plan Her rhythm is difficult to discern today, but appears to be regular with ectopic beats. However, atrial fibrillation cannot be completely excluded without twelve-lead EKG. Due to heart rate being controlled and on oral anticoagulation, this was deferred. At this time, she will continue current medical therapy which includes metoprolol tartrate for rate control and warfarin therapy maintaining an INR goal of 2???3 for CVA protection. We will continue to monitor. 2. Nonrheumatic aortic (valve) stenosis with insufficiency I35.2 Plan She does have a history of a bicuspid aortic valve. This was last noted in October 2017 to be considered to be a mild with AN aortic valve area 1.4 cm???, peak pressure gradient of 26.5 mmHg, and a mean pressure gradient of 14.4 mmHg. This appears stable today. She undergo surveillance echocardiogram to evaluate changes. Based on results, further recommendation will be made. Orders Orders: Echo Complete 1 Month 3. Essential hypertension I10 Plan Her blood pressure is elevated today in office. It has been better controlled elsewhere. At this time, she was asked to continue to monitor her blood pressure routinely and contact our office if she notes that it is consistently elevated. If this does occur, we can consider reinitiating amlodipine therapy as she has been on this previously at 2.5 mg p.o. daily and titrate accordingly. She does not upcoming appoint with primary care physician approximately 1 month in which her blood pressure will be reassessed. 4. Dyslipidemia E78.5 Plan She will continue current statin medication. Plan Detail Other Orders Orders: Echo Complete 1 Month I48.91, Z79.899 Additional Comments Thank you for allowing us to participate in the patients plan of care, if you have any questions please do not hesitate to call. This note was generated using a voice recognition system and there may be incorrect words, spelling or punctuation that were not noted when reviewing the office note prior to saving. 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) Coding Level of Care Code Off vis,est,level 3 Diagnoses Paroxysmal atrial fibrillation I48.0 Nonrheumatic aortic (valve) stenosis with insufficiency I35.2 Essential hypertension I10 ?Hypertension type: essential hypertension Dyslipidemia E78.5 Coding Level of Care Code Off vis,est,level 3 Diagnoses Paroxysmal atrial fibrillation I48.0 Nonrheumatic aortic (valve) stenosis with insufficiency I35.2 Essential hypertension I10 ?Hypertension type: essential hypertension Dyslipidemia E78.5 Supplemental Info Supplemental Information Transthoracic Echocardiogram from 10/19/2017: Interpretation Summary Normal LV size. Moderate concentric left ventricle hypertrophy. Left ventricular systolic function is normal. The estimate ejection fraction is 60%. Bicuspid aortic valve. Mild aortic valve stenosis. Calculated aortic valve area (continuity equation) is 1.4 cm???. Aortic valve peak pressure gradient 26.5 mmHg. Aortic valve mean pressure gradient 14.4 mmHg. Labs LDL Cholesterol 45 mg/dL (0-130) 01/06/17 HDL Cholesterol 51 mg/dL (40-) 01/06/17 Triglycerides 103 mg/dL (-199) 01/06/17 VLDL Cholesterol 21 mg/dL (5-40) 01/06/17 Diagnostics Electrocardiogram 12/27/19 Echocardiogram 12/25/14 Chest X-Ray 12/27/19 09/19/20 1210 <Electronically signed by Elkin ESTRADA> Date Elkin ESTRADA Cosigner Signature: Date (if applicable) CC: SEAN Hurleyevaristodaya Start: 05-01-2020 End: 05-01-2020 Dexa Bone Density Study Comments: See Note; NOTES: [facility] Imaging Services [address] [place] [id number] Dexa Bone Density Study MR#: [id number] Acct: [id number] Name: VASILE MILLER Rep #: [id number] : 1940 F 79 From: Ramakrishna washington MD PCP: SEAN Palencia Status: REG CLI Study: Dexa Bone Density Study Date of Exam: 05/01/20 Exam# [id number] Ordering Dr: Teresita Ruiz STUDY: DUAL ENERGY X-RAY ABSORPTIOMETRY / DXA REASON FOR EXAM: Female, 79 years old. 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 COMPARISON: Comparison is made with prior study dated May 06, 2016. FINDINGS: Lumbar Spine (L1-L4): g/cm2 (0.879) / T-score (-2.5) / Z-score (-0.7) Findings are suggestive of osteoporosis with a high fracture risk. Left Femur Total: g/cm2 (0.728) / T-score (-2.2) / Z-score (-0.3) Left Femoral Neck: g/cm2 (0.693) / T-score (-2.5) / Z-score (-0.4) Right Femur Total: g/cm2 (0.718) / T-score (-2.3) / Z-score (-0.4) Right Femoral Neck: g/cm2 (0.628) / T-score (-2.9) / Z-score (-0.9) The T-Scores on the most recent prior examination were: Lumbar Spine (L1-L4): There has been worsening of bone density since the previous examination. Left Femur Total: which represents a worsening of 16.1%. Right Femur Total: which represents a worsening of 13%. BD/Dexa Bone Density Study IMPRESSION: The patient is considered osteoporotic as outlined below according to World Case Organization (WHO) criteria with a high fracture risk. There has been worsening of bone density since the previous examination. Reference Information: The T-score is the number of standard deviations above or below the standard which is normal for young adults at their peak bone mineral density. The World Health Organization (WHO) interprets the T-scores as follows: Above -1 Normal bone density Between -1 and -2.5 Osteopenia Equal to / or below -2.5 Osteoporosis As a practical clinical guideline, osteopenia may be graded as follows: Mild -1 through -1.5 Moderate -1.6 through -2.0 Severe -2.1 through -2.4 The Z-score is the number of standard deviations above or below age-matched controls. A Z-score of less than -1.5 would be considered abnormal. References: 1. NIH Osteoporosis and Related Bone Diseases http://www.osteo.org 2. International Society for Clinical Densitometry http://www.iscd.org 3. National Osteoporosis Foundation http://www.nof.org Electronically Signed: Ramakrishna Sainz, at 15:03 EDT , Service support , CC: SEAN Ruiz Screw Machine Set Up Operator: Signed Teresita Ruiz Work Phone: Start: 05-01-2020 End: 05-01-2020 SCREEN MAMM (CAD) W/LOLA BILAT Comments: See Note; NOTES: [facility] Imaging Services [address] [place] [address] SCREEN MAMM (CAD) W/LOLA BILAT MR#: [id number] Acct: [id number] Name: VASILE MILLER Rep #: [id number] : 1940 F 79 From: Ramakrishna washington MD PCP: SEAN Palencia Status: REG CLI Study: SCREEN MAMM (CAD) W/LOLA BILAT Date of Exam: 0 05/01/20 Exam# [id number] Ordering Dr: Teresiat Ruiz MAMMOGRAPHY - BILATERAL SCREENING REASON FOR EXAM: Female, 79 years old. Routine annual screening examination. PERTINENT HISTORY: Sister with breast cancer. TECHNIQUE: Digital bilateral breast lola (3D mammographic acquisition) in the CC and MLO projections. 2-D mediolateral oblique (MLO) and craniocaudad (CC) views of both breasts were obtained. CAD: Full Field Digital Mammography with Computer Added Detection was performed. COMPARISON: Comparison is made with prior study dated May 06, 2016 and April 04, 2014. FINDINGS: Breast Composition: The breasts are almost entirely fatty. There are no dominant masses or suspicious calcifications. No other significant abnormalities are identified. There has been no significant change since the prior study. BI/SCREEN MAMM (CAD) W/LOLA BILAT IMPRESSION: Stable bilateral screening mammogram. Yearly follow-up mammogram recommended. (A) ASSESSMENT CATEGORY: BIRADS Category 1: Negative. A letter regarding these results will be sent to the patient by the facility within 30 days. Approximately 10% of breast cancers are not detected by mammography. A normal mammogram should not delay biopsy of a clinically suspicious abnormality. [id number] Electronically Signed: Ramakrishna Sainz, at 13:59 EDT , Service support , CC: SEAN Ruiz Screw Machine Set Up Operator: Signed Teresita Ruiz Work Phone: Start: 10-02-2017 End: 10-02-2017 Follow Up Appt 3 months Deonte Lopez Start: 10-02-2017 End: 10-02-2017 PATRICK Judge MD Start: 03-27-2017 End: 03-27-2017 RUMA Díaz PA-C Work Phone: Start: 03-27-2017 End: 03-27-2017 Follow Up Appt 6 months Rohini Díaz PA-C Work Phone: Start: 09-25-2016 End: 03-20-2017 Follow Up Appt 6 months Deonte Lopez Start: 09-25-2016 End: 03-20-2017 NÉSTOR Judge MD Start: 05-14-2016 End: 03-20-2017 Magnesium [Mass/volume] in Serum or Plasma Rohini Díaz PA-C Work Phone: Start: 04-15-2016 End: 04-16-2016 Magnesium [Mass/volume] in Serum or Plasma Rohini Díaz PA-C Work Phone: Start: 03-18-2016 End: 03-18-2016 RUMA Díaz PA-C Work Phone: Start: 03-18-2016 End: 03-18-2016 Follow Up Appt 6 months Rohini Díaz PA-C Work Phone: Start: 09-18-2015 End: 09-19-2015 Documentation of current medications Joel Judge MD Start: 09-18-2015 End: 03-05-2016 Follow Up Appt 6 months Deonte Lopez Start: 09-18-2015 End: 03-05-2016 NÉSTOR Judge MD Start: 06-26-2015 End: 03-05-2016 RUMA Díaz PA-C Work Phone: Start: 06-26-2015 End: 06-27-2015 Documentation of current medications Rohini Díaz PA-C Work Phone: Start: 06-26-2015 End: 03-05-2016 Follow Up Appt 3 months Rohini Díaz PA-C Work Phone: Start: 05-09-2015 End: 05-10-2015 Documentation of current medications Rohini Díaz PA-C Work Phone: Start: 05-09-2015 End: 05-09-2015 Follow Up Appt 6 weeks Rohini Díaz PA-C Work Phone: Start: 05-09-2015 End: 05-09-2015 MMM Rohini Díaz PA-C Work Phone: Start: 01-31-2015 End: 02-01-2015 Documentation of current medications Joel Judge MD Start: 01-31-2015 End: 01-31-2015 Follow Up Appt 3 months Deonte Lopez Start: 01-31-2015 End: 01-31-2015 NÉSTOR Judge MD Start: 08-09-2014 End: 08-09-2014 POWERHOUSE ELECTRICIAN Rohini Díaz PA-C Work Phone: Start: 08-09-2014 End: 08-09-2014 Follow Up Appt 6 months Rohini Díaz PA-C Work Phone: Start: 02-07-2014 End: 02-14-2014 Echocardiography Joel Judge MD Start: 02-07-2014 End: 02-07-2014 Follow Up Appt 6 months Deonte Lopez Start: 02-07-2014 End: 02-07-2014 NÉSTOR Judge MD Start: 03-11-2013 End: 06-20-2013 *Hepatic Function Panel Deonte Lopez Start: 03-11-2013 End: 06-20-2013 Lipid 1996 panel - Serum or Plasma Joel Judge MD Start: 02-04-2013 End: 02-04-2013 POWERHOUSE ELECTRICIAN Joel Judge MD Start: 02-04-2013 End: 02-04-2013 Follow Up Appt 1 year Joel Judge MD Start: 06-29-2012 End: 07-23-2012 48 hour holter monitor Jeol Judge MD Start: 06-29-2012 End: 08-09-2014 Follow Up Appt 6 months Deonte Lopez Appendectomy Appendectomy Teresita Ciesa Appendectomy Appendectomy Teresita Ciesa Appendectomy Appendectomy Teresita Ciesa Appendectomy Appendectomy Teresita Ciesa Appendectomy Appendectomy Teresita Ciesa Appendectomy Appendectomy Dante Salmon LP N Appendectomy Appendectomy Madison Slarb LP N Appendectomy Appendectomy Madison Roelrb LP N Cholecystectomy Cholecystectomy (Gall Bladder Removal) Teresita Ciesa Cholecystectomy Cholecystectomy (Gall Bladder Removal) Teresita Ciesa Cholecystectomy Cholecystectomy (Gall Bladder Removal) Teresita Ciesa Cholecystectomy Cholecystectomy (Gall Bladder Removal) Teresita Ciesa Cholecystectomy Cholecystectomy (Gall Bladder Removal) Teresita Ciesa Cholecystectomy Cholecystectomy (Gall Bladder Removal) Dante Salmon ADMITTING OFFICE ESCORT Cholecystectomy Cholecystectomy (Gall Bladder Removal) Madison Slarb ADMITTING OFFICE ESCORT Cholecystectomy Cholecystectomy (Gall Bladder Removal) Madison Slarb ADMITTING OFFICE ESCORT H/O: hysterectomy History of hysterectomy Dante Salmon ADMITTING OFFICE ESCORT Comment on above: she thinks total H/O: hysterectomy History of hysterectomy Teresita Ruiz 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 Work Phone: H/O: hysterectomy History of hysterectomy Madison Slarb ADMITTING OFFICE ESCORT Comment on above: she thinks total H/O: hysterectomy History of hysterectomy Amdison Slarb ADMITTING OFFICE ESCORT Comment on above: she thinks total Plan of Treatment Date Care Activity Detail Author Start: 11-27-2021 Prothrombin time PT (PROTHROMBIN TIME) (19902) [facility]; [facility] Work Phone: Start: 11-27-2021 PT Coag (PPP) [Time] PT (PROTHROMBIN TIME) ([id number]) [facility] Work Phone: Start: 11-20-2021 Prothrombin time PT (PROTHROMBIN TIME) ([id number]) [facility]; [facility] Work Phone: Start: 11-20-2021 PT Coag (PPP) [Time] PT (PROTHROMBIN TIME) ([id number]) [facility] Work Phone: Start: 11-13-2021 Prothrombin time PT (PROTHROMBIN TIME) (70654) [facility]; [facility] Work Phone: Start: 11-13-2021 PT Coag (PPP) [Time] PT (PROTHROMBIN TIME) ([id number]) [facility] Work Phone: Start: 11-06-2021 Prothrombin time PT (PROTHROMBIN TIME) ([id number]) [facility]; [facility] Work Phone: Start: 11-06-2021 PT Coag (PPP) [Time] PT (PROTHROMBIN TIME) ([id number]) [facility] Work Phone: Start: 10-30-2021 Prothrombin time PT (PROTHROMBIN TIME) ([id number]) [facility]; [facility] Work Phone: Start: 10-30-2021 PT Coag (PPP) [Time] PT (PROTHROMBIN TIME) ([id number]) [facility] Work Phone: Start: 10-23-2021 Prothrombin time PT (PROTHROMBIN TIME) ([id number]) [facility]; [facility] Work Phone: Start: 10-23-2021 PT Coag (PPP) [Time] PT (PROTHROMBIN TIME) ([id number]) [facility] Work Phone: Start: 10-16-2021 Prothrombin time PT (PROTHROMBIN TIME) ([id number]) [facility]; [facility] Work Phone: Start: 10-16-2021 PT Coag (PPP) [Time] PT (PROTHROMBIN TIME) ([id number]) [facility] Work Phone: Start: 10-09-2021 Prothrombin time PT (PROTHROMBIN TIME) ([id number]) [facility]; [facility] Work Phone: Start: 10-09-2021 PT Coag (PPP) [Time] PT (PROTHROMBIN TIME) ([id number]) [facility] Work Phone: Start: 10-07-2021 Procedure Education Eprescribed prescriptions ([id number]) [facility]; [facility] Work Phone: Start: 10-02-2021 Prothrombin time PT (PROTHROMBIN TIME) ([id number]) [facility]; [facility] Work Phone: Start: 10-02-2021 PT Coag (PPP) [Time] PT (PROTHROMBIN TIME) ([id number]) [facility] Work Phone: Start: 09-27-2021 Procedure Education Eprescribed prescriptions ([id number]) [facility]; [facility] Work Phone: Start: 09-27-2021 Provider Instructions for Treatment [facility]; [facility] Work Phone: Start: 09-25-2021 Prothrombin time PT (PROTHROMBIN TIME) ([id number]) [facility]; [facility] Work Phone: Start: 09-25-2021 PT Coag (PPP) [Time] PT (PROTHROMBIN TIME) ([id number]) [facility] Work Phone: Start: 09-18-2021 Prothrombin time PT (PROTHROMBIN TIME) (50772) [facility]; [facility] Work Phone: Start: 09-18-2021 PT Coag (PPP) [Time] PT (PROTHROMBIN TIME) ([id number]) [facility] Work Phone: Start: 09-13-2021 Procedure Education Eprescribed prescriptions ([id number]) [facility]; [facility] Work Phone: Start: 09-13-2021 Provider Instructions for Treatment 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 2 weeks for knee injection ?gel one With Dr. Graves [facility]; [facility] Work Phone: Start: 09-13-2021 Prothrombin time PT (PROTHROMBIN TIME) ([id number]) [facility]; [facility] Work Phone: Start: 09-11-2021 Prothrombin time PT (PROTHROMBIN TIME) ([id number]) [facility]; [facility] Work Phone: Start: 09-11-2021 PT Coag (PPP) [Time] PT (PROTHROMBIN TIME) ([id number]) [facility] Work Phone: Start: 09-04-2021 Prothrombin time PT (PROTHROMBIN TIME) ([id number]) [facility]; [facility] Work Phone: Start: 09-04-2021 PT Coag (PPP) [Time] PT (PROTHROMBIN TIME) ([id number]) [facility] Work Phone: Start: 08-28-2021 Prothrombin time PT (PROTHROMBIN TIME) (55062) [facility]; [facility] Work Phone: Start: 08-28-2021 PT Coag (PPP) [Time] PT (PROTHROMBIN TIME) (52305) [facility] Work Phone: Start: 08-21-2021 Prothrombin time PT (PROTHROMBIN TIME) (60638) [facility]; [facility] Work Phone: Start: 08-21-2021 PT Coag (PPP) [Time] PT (PROTHROMBIN TIME) ([id number]) [facility] Work Phone: Start: 08-14-2021 Prothrombin time PT (PROTHROMBIN TIME) (49737) [facility]; [facility] Work Phone: Start: 08-14-2021 PT Coag (PPP) [Time] PT (PROTHROMBIN TIME) ([id number]) [facility] Work Phone: Start: 08-07-2021 Prothrombin time PT (PROTHROMBIN TIME) (92253) [facility]; [facility] Work Phone: Start: 08-07-2021 PT Coag (PPP) [Time] PT (PROTHROMBIN TIME) ([id number]) [facility] Work Phone: Start: 07-31-2021 Prothrombin time PT (PROTHROMBIN TIME) (90119) [facility]; [facility] Work Phone: Start: 07-31-2021 PT Coag (PPP) [Time] PT (PROTHROMBIN TIME) ([id number]) [facility] Work Phone: Start: 07-24-2021 Prothrombin time PT (PROTHROMBIN TIME) ([id number]) [facility]; [facility] Work Phone: Start: 07-24-2021 PT Coag (PPP) [Time] PT (PROTHROMBIN TIME) ([id number]) [facility] Work Phone: Start: 07-17-2021 Prothrombin time PT (PROTHROMBIN TIME) (69905) [facility]; [facility] Work Phone: Start: 07-17-2021 PT Coag (PPP) [Time] PT (PROTHROMBIN TIME) ([id number]) [facility] Work Phone: Start: 07-12-2021 Procedure Education Eprescribed prescriptions ([id number]) [facility]; [facility] Work Phone: Start: 07-12-2021 Provider Instructions for Treatment [facility]; [facility] Work Phone: Start: 07-10-2021 Prothrombin time PT (PROTHROMBIN TIME) (85139) [facility]; [facility] Work Phone: Start: 07-10-2021 PT Coag (PPP) [Time] PT (PROTHROMBIN TIME) ([id number]) [facility] Work Phone: Start: 07-03-2021 Prothrombin time PT (PROTHROMBIN TIME) (51725) [facility]; [facility] Work Phone: Start: 07-03-2021 PT Coag (PPP) [Time] PT (PROTHROMBIN TIME) ([id number]) [facility] Work Phone: Start: 06-26-2021 Prothrombin time PT (PROTHROMBIN TIME) (65486) [facility]; [facility] Work Phone: Start: 06-26-2021 PT Coag (PPP) [Time] PT (PROTHROMBIN TIME) (59884) [facility] Work Phone: Start: 06-19-2021 Prothrombin time PT (PROTHROMBIN TIME) ([id number]) [facility]; [facility] Work Phone: Start: 06-19-2021 PT Coag (PPP) [Time] PT (PROTHROMBIN TIME) ([id number]) [facility] Work Phone: Start: 06-12-2021 Prothrombin time PT (PROTHROMBIN TIME) (61735) [facility]; [facility] Work Phone: Start: 06-12-2021 PT Coag (PPP) [Time] PT (PROTHROMBIN TIME) ([id number]) [facility] Work Phone: Start: 06-10-2021 Procedure Education Eprescribed prescriptions (G8553) [facility]; [facility] Work Phone: Start: 06-10-2021 Urine albumin quantitative MICROALBUMIN: CREATININE RATIO (75264) AND (54539) [facility]; [facility] Work Phone: Start: 06-05-2021 Prothrombin time PT (PROTHROMBIN TIME) (37854) [facility]; [facility] Work Phone: Start: 06-05-2021 PT Coag (PPP) [Time] PT (PROTHROMBIN TIME) ([id number]) [facility] Work Phone: Start: 05-29-2021 Prothrombin time PT (PROTHROMBIN TIME) (19862) [facility]; [facility] Work Phone: Start: 05-29-2021 PT Coag (PPP) [Time] PT (PROTHROMBIN TIME) (69711) [facility] Work Phone: Start: 05-22-2021 Prothrombin time PT (PROTHROMBIN TIME) (88807) [facility]; [facility] Work Phone: Start: 05-22-2021 PT Coag (PPP) [Time] PT (PROTHROMBIN TIME) ([id number]) [facility] Work Phone: Start: 05-15-2021 Prothrombin time PT (PROTHROMBIN TIME) (68849) [facility]; [facility] Work Phone: Start: 05-15-2021 PT Coag (PPP) [Time] PT (PROTHROMBIN TIME) ([id number]) [facility] Work Phone: Start: 05-08-2021 PT Coag (PPP) [Time] PT (PROTHROMBIN TIME) ([id number]) [facility] Work Phone: Start: 05-08-2021 Prothrombin time PT (PROTHROMBIN TIME) (32113) [facility]; [facility] Work Phone: Start: 05-01-2021 Prothrombin time PT (PROTHROMBIN TIME) (59937) [facility]; [facility] Work Phone: Start: 05-01-2021 PT Coag (PPP) [Time] PT (PROTHROMBIN TIME) (77028) [facility] Work Phone: Start: 04-24-2021 Prothrombin time PT (PROTHROMBIN TIME) (52847) [facility]; [facility] Work Phone: Start: 04-24-2021 PT Coag (PPP) [Time] PT (PROTHROMBIN TIME) ([id number]) [facility] Work Phone: Start: 04-17-2021 Prothrombin time PT (PROTHROMBIN TIME) (45379) [facility]; [facility] Work Phone: Start: 04-17-2021 PT Coag (PPP) [Time] PT (PROTHROMBIN TIME) ([id number]) [facility] Work Phone: Start: 04-10-2021 Prothrombin time PT (PROTHROMBIN TIME) (75057) [facility]; [facility] Work Phone: Start: 04-10-2021 PT Coag (PPP) [Time] PT (PROTHROMBIN TIME) ([id number]) [facility] Work Phone: Start: 04-03-2021 Prothrombin time PT (PROTHROMBIN TIME) (06002) [facility]; [facility] Work Phone: Start: 04-03-2021 PT Coag (PPP) [Time] PT (PROTHROMBIN TIME) ([id number]) [facility] Work Phone: Start: 03-27-2021 Prothrombin time PT (PROTHROMBIN TIME) ([id number]) [facility]; [facility] Work Phone: Start: 03-27-2021 PT Coag (PPP) [Time] PT (PROTHROMBIN TIME) ([id number]) [facility] Work Phone: Start: 03-20-2021 Prothrombin time PT (PROTHROMBIN TIME) (42726) [facility]; [facility] Work Phone: Start: 03-20-2021 PT Coag (PPP) [Time] PT (PROTHROMBIN TIME) ([id number]) [facility] Work Phone: Start: 03-13-2021 Prothrombin time PT (PROTHROMBIN TIME) (39841) [facility]; [facility] Work Phone: Start: 03-13-2021 PT Coag (PPP) [Time] PT (PROTHROMBIN TIME) ([id number]) [facility] Work Phone: Start: 03-11-2021 Procedure Education Eprescribed prescriptions (G8553) [facility]; [facility] Work Phone: Start: 03-11-2021 Provider Instructions for Treatment 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 3 months [facility]; [facility] Work Phone: Start: 03-06-2021 Prothrombin time PT (PROTHROMBIN TIME) (02078) [facility]; [facility] Work Phone: Start: 03-06-2021 PT Coag (PPP) [Time] PT (PROTHROMBIN TIME) (76644) [facility] Work Phone: Start: 02-27-2021 PT Coag (PPP) [Time] PT (PROTHROMBIN TIME) (12803) [facility] Work Phone: Start: 02-27-2021 Procedure Education Eprescribed prescriptions (G8553) [facility]; [facility] Work Phone: Start: 02-27-2021 Provider Instructions for Treatment [facility]; [facility] Work Phone: Start: 02-27-2021 PT Coag (PPP) [Time] PT (PROTHROMBIN TIME) (56691) [facility]; [facility] Work Phone: Start: 02-27-2021 25 hydroxy includes fractions if performed CALCIFEDIOL (73170) [facility]; [facility] Work Phone: Start: 02-27-2021 Blood count complete auto&auto difrntl wbc CBC, Platelets & Auto Diff (08378) [facility]; [facility] Work Phone: Start: 02-27-2021 Comprehensive metabolic panel Metabolic Panel, Comprehensive (80616) [facility]; [facility] Work Phone: Start: 02-27-2021 TSH Qn TSH (THYROID STIMULATING HORMONE) (12479) [facility]; [facility] Work Phone: Start: 02-27-2021 INR Coag (Bld) [Relative time] PT/INR, Office (75043) [facility]; [facility] Work Phone: Start: 02-27-2021 Prothrombin time PT/INR, Office (88013) [facility]; [facility] Work Phone: Start: 02-20-2021 Prothrombin time PT (PROTHROMBIN TIME) (17666) [facility]; [facility] Work Phone: Start: 02-20-2021 PT Coag (PPP) [Time] PT (PROTHROMBIN TIME) (91305) [facility] Work Phone: Start: 02-13-2021 Prothrombin time PT (PROTHROMBIN TIME) (44498) [facility]; [facility] Work Phone: Start: 02-13-2021 PT Coag (PPP) [Time] PT (PROTHROMBIN TIME) (81228) [facility] Work Phone: Start: 02-06-2021 Prothrombin time PT (PROTHROMBIN TIME) (02723) [facility]; [facility] Work Phone: Start: 02-06-2021 PT Coag (PPP) [Time] PT (PROTHROMBIN TIME) (65345) [facility] Work Phone: Start: 01-30-2021 Prothrombin time PT (PROTHROMBIN TIME) (50665) [facility]; [facility] Work Phone: Start: 01-30-2021 PT Coag (PPP) [Time] PT (PROTHROMBIN TIME) (35546) [facility] Work Phone: Start: 01-23-2021 Prothrombin time PT (PROTHROMBIN TIME) (18729) [facility]; [facility] Work Phone: Start: 01-23-2021 PT Coag (PPP) [Time] PT (PROTHROMBIN TIME) (00501) [facility] Work Phone: Start: 01-16-2021 Prothrombin time PT (PROTHROMBIN TIME) (43539) [facility]; [facility] Work Phone: Start: 01-16-2021 PT Coag (PPP) [Time] PT (PROTHROMBIN TIME) (36862) [facility] Work Phone: Start: 01-09-2021 Prothrombin time PT (PROTHROMBIN TIME) (31511) [facility]; [facility] Work Phone: Start: 01-09-2021 PT Coag (PPP) [Time] PT (PROTHROMBIN TIME) (55566) [facility] Work Phone: Start: 01-02-2021 Prothrombin time PT (PROTHROMBIN TIME) (04079) [facility]; [facility] Work Phone: Start: 01-02-2021 PT Coag (PPP) [Time] PT (PROTHROMBIN TIME) (11025) [facility] Work Phone: Start: 12-26-2020 Prothrombin time PT (PROTHROMBIN TIME) (26562) [facility]; [facility] Work Phone: Start: 12-26-2020 PT Coag (PPP) [Time] PT (PROTHROMBIN TIME) (90102) [facility] Work Phone: Start: 12-19-2020 Prothrombin time PT (PROTHROMBIN TIME) (21032) [facility]; [facility] Work Phone: Start: 12-19-2020 PT Coag (PPP) [Time] PT (PROTHROMBIN TIME) (20879) [facility] Work Phone: Start: 12-12-2020 Prothrombin time PT (PROTHROMBIN TIME) (21836) [facility]; [facility] Work Phone: Start: 12-12-2020 PT Coag (PPP) [Time] PT (PROTHROMBIN TIME) ([id number]) [facility] Work Phone: Start: 12-05-2020 Prothrombin time PT (PROTHROMBIN TIME) (55395) [facility]; [facility] Work Phone: Start: 12-05-2020 PT Coag (PPP) [Time] PT (PROTHROMBIN TIME) ([id number]) [facility] Work Phone: Start: 11-28-2020 Prothrombin time PT (PROTHROMBIN TIME) (00651) [facility]; [facility] Work Phone: Start: 11-28-2020 PT Coag (PPP) [Time] PT (PROTHROMBIN TIME) (07582) [facility] Work Phone: Start: 11-28-2020 Procedure Education Eprescribed prescriptions (G8553) [facility]; [facility] Work Phone: Start: 11-28-2020 Provider Instructions for Treatment [facility]; [facility] Work Phone: Start: 11-28-2020 Magnesium [Mass/Vol] MAGNESIUM (17192) [facility]; [facility] Work Phone: Start: 11-28-2020 Blood count complete auto&auto difrntl wbc CBC, Platelets & Auto Diff (38408) [facility]; [facility] Work Phone: Start: 11-28-2020 Comprehensive metabolic panel Metabolic Panel, Comprehensive (79791) [facility]; [facility] Work Phone: Start: 11-28-2020 TSH Qn TSH (THYROID STIMULATING HORMONE) (10569) [facility]; [facility] Work Phone: Start: 11-28-2020 Ova&parasites direct smears concentration & id OVA & PARASITE DIR SMEAR (03318) [facility]; [facility] Work Phone: Start: 11-28-2020 Blood occult peroxidase actv qual feces 1 deter OCCULT BLOOD FECES SCREEN (08121) [facility]; [facility] Work Phone: Start: 11-28-2020 Leukocyte assmt fecal qual/semiquantitative LEUKOCYTE COUNT, FECAL (27039) [facility]; [facility] Work Phone: Start: 11-28-2020 Culture bacterial any source anaerobic iso&id C-DIFFICILE, STOOL (12795) [facility]; [facility] Work Phone: Start: 11-28-2020 Cul bact stool aerobic isol salmonella&shigell FANI CULTURE-STOOL (01029) [facility]; [facility] Work Phone: Start: 11-28-2020 PT Coag (PPP) [Time] PT (PROTHROMBIN TIME) (37302) [facility]; [facility] Work Phone: Start: 11-21-2020 Prothrombin time PT (PROTHROMBIN TIME) (40191) [facility]; [facility] Work Phone: Start: 11-21-2020 PT Coag (PPP) [Time] PT (PROTHROMBIN TIME) (05085) [facility] Work Phone: Start: 11-14-2020 Prothrombin time PT (PROTHROMBIN TIME) (55188) [facility]; [facility] Work Phone: Start: 11-14-2020 PT Coag (PPP) [Time] PT (PROTHROMBIN TIME) ([id number]) [facility] Work Phone: Start: 11-07-2020 Prothrombin time PT (PROTHROMBIN TIME) (75242) [facility]; [facility] Work Phone: Start: 11-07-2020 PT Coag (PPP) [Time] PT (PROTHROMBIN TIME) (60666) [facility] Work Phone: Start: 11-06-2020 Procedure Education Eprescribed prescriptions (G8553) [facility]; [facility] Work Phone: Start: 11-06-2020 Provider Instructions for Treatment [facility]; [facility] Work Phone: Start: 11-06-2020 [place] influenza 2019 Novel Coronavirus (COVID-19), [place] (90289) [facility]; [facility] Work Phone: Start: 10-31-2020 Prothrombin time PT (PROTHROMBIN TIME) (95325) [facility]; [facility] Work Phone: Start: 10-31-2020 PT Coag (PPP) [Time] PT (PROTHROMBIN TIME) (20392) [facility] Work Phone: Start: 10-24-2020 PT Coag (PPP) [Time] PT (PROTHROMBIN TIME) (54879) [facility] Work Phone: Start: 10-24-2020 PT Coag (PPP) [Time] PT (PROTHROMBIN TIME) ([id number]) [facility]; [facility] Work Phone: Start: 10-17-2020 Prothrombin time PT (PROTHROMBIN TIME) (33102) [facility]; [facility] Work Phone: Start: 10-17-2020 PT Coag (PPP) [Time] PT (PROTHROMBIN TIME) (64815) [facility] Work Phone: Start: 10-16-2020 Procedure Education Eprescribed prescriptions (G8553) [facility] Work Phone: Start: 10-16-2020 Provider Instructions for Treatment 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 3 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 [facility] Work Phone: Start: 10-16-2020 TSH Qn TSH (13818) [facility] Work Phone: Comment on above: Oct 30 Start: 10-16-2020 Comprehensive metabolic panel Metabolic Panel, [facility] (22942) [facility] Work Phone: Comment on above: Oct 30 Start: 10-16-2020 Lipid panel LIPID PANEL (72107) [facility] Work Phone: Comment on above: Oct 30 Start: 10-16-2020 PT Coag (PPP) [Time] PT (PROTHROMBIN TIME) (32817) [facility] Work Phone: Comment on above: Oct 30 Start: 10-10-2020 Prothrombin time PT (PROTHROMBIN TIME) (75868) [facility]; [facility] Work Phone: Start: 10-10-2020 PT Coag (PPP) [Time] PT (PROTHROMBIN TIME) (05534) [facility] Work Phone: Start: 10-03-2020 Prothrombin time PT (PROTHROMBIN TIME) (44555) [facility]; [facility] Work Phone: Start: 10-03-2020 PT Coag (PPP) [Time] PT (PROTHROMBIN TIME) (92660) [facility] Work Phone: Start: 09-26-2020 Prothrombin time PT (PROTHROMBIN TIME) (55375) [facility]; [facility] Work Phone: Start: 09-26-2020 PT Coag (PPP) [Time] PT (PROTHROMBIN TIME) (74616) [facility] Work Phone: Start: 09-19-2020 Prothrombin time PT (PROTHROMBIN TIME) (19773) [facility]; [facility] Work Phone: Start: 09-19-2020 PT Coag (PPP) [Time] PT (PROTHROMBIN TIME) (69156) [facility] Work Phone: Start: 09-12-2020 Prothrombin time PT (PROTHROMBIN TIME) (66325) [facility]; [facility] Work Phone: Start: 09-12-2020 PT Coag (PPP) [Time] PT (PROTHROMBIN TIME) (65369) [facility] Work Phone: Start: 09-05-2020 Prothrombin time PT (PROTHROMBIN TIME) ([id number]) [facility]; [facility] Work Phone: Start: 09-05-2020 PT Coag (PPP) [Time] PT (PROTHROMBIN TIME) (57062) [facility] Work Phone: Start: 08-29-2020 Prothrombin time PT (PROTHROMBIN TIME) (00924) [facility]; [facility] Work Phone: Start: 08-29-2020 PT Coag (PPP) [Time] PT (PROTHROMBIN TIME) (74679) [facility] Work Phone: Start: 08-22-2020 PT Coag (PPP) [Time] PT (PROTHROMBIN TIME) (24438) [facility] Work Phone: Start: 08-22-2020 PT Coag (PPP) [Time] PT (PROTHROMBIN TIME) (73594) [facility] Work Phone: Start: 08-15-2020 PT Coag (PPP) [Time] PT (PROTHROMBIN TIME) (67122) [facility] Work Phone: Start: 08-08-2020 PT Coag (PPP) [Time] PT (PROTHROMBIN TIME) (83026) [facility] Work Phone: Start: 08-01-2020 Prothrombin time PT (PROTHROMBIN TIME) (77304) [facility]; [facility] Work Phone: Start: 08-01-2020 PT Coag (PPP) [Time] PT (PROTHROMBIN TIME) (42825) [facility] Work Phone: Start: 07-25-2020 Prothrombin time PT (PROTHROMBIN TIME) (29188) [facility]; [facility] Work Phone: Start: 07-25-2020 PT Coag (PPP) [Time] PT (PROTHROMBIN TIME) (22187) [facility] Work Phone: Start: 07-18-2020 Prothrombin time PT (PROTHROMBIN TIME) (39235) [facility]; [facility] Work Phone: Start: 07-18-2020 PT Coag (PPP) [Time] PT (PROTHROMBIN TIME) (89073) [facility] Work Phone: Start: 07-16-2020 Procedure Education Eprescribed prescriptions (G8553) [facility] Work Phone: Start: 07-16-2020 Provider Instructions for Treatment 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 3 months [facility] Work Phone: Start: 07-16-2020 PT Coag (PPP) [Time] PT (PROTHROMBIN TIME) (24341) [facility] Work Phone: Start: 07-16-2020 Blood count complete auto&auto difrntl wbc CBC, Platelets & Auto Diff (33181) [facility] Work Phone: Start: 07-16-2020 TSH Qn TSH (24106) [facility] Work Phone: Start: 07-16-2020 Comprehensive metabolic panel Metabolic Panel, Comprehensive (12106) [facility] Work Phone: Start: 07-11-2020 Prothrombin time PT (PROTHROMBIN TIME) (97107) [facility]; [facility] Work Phone: Start: 07-11-2020 PT Coag (PPP) [Time] PT (PROTHROMBIN TIME) (08988) [facility] Work Phone: Start: 07-04-2020 Prothrombin time PT (PROTHROMBIN TIME) (83322) [facility]; [facility] Work Phone: Start: 07-04-2020 PT Coag (PPP) [Time] PT (PROTHROMBIN TIME) (66282) [facility] Work Phone: Start: 06-27-2020 Prothrombin time PT (PROTHROMBIN TIME) (29934) [facility]; [facility] Work Phone: Start: 06-27-2020 PT Coag (PPP) [Time] PT (PROTHROMBIN TIME) (44403) [facility] Work Phone: Start: 06-20-2020 PT Coag (PPP) [Time] PT (PROTHROMBIN TIME) (33603) [facility] Work Phone: Start: 06-13-2020 Prothrombin time PT (PROTHROMBIN TIME) (39786) [facility]; [facility] Work Phone: Start: 06-13-2020 PT Coag (PPP) [Time] PT (PROTHROMBIN TIME) (23509) [facility] Work Phone: Start: 06-06-2020 Prothrombin time PT (PROTHROMBIN TIME) (02211) [facility]; [facility] Work Phone: Start: 06-06-2020 PT Coag (PPP) [Time] PT (PROTHROMBIN TIME) (70974) [facility] Work Phone: Start: 05-30-2020 Prothrombin time PT (PROTHROMBIN TIME) (92569) [facility]; [facility] Work Phone: Start: 05-30-2020 PT Coag (PPP) [Time] PT (PROTHROMBIN TIME) (08641) [facility] Work Phone: Start: 05-23-2020 Prothrombin time PT (PROTHROMBIN TIME) (20894) [facility]; [facility] Work Phone: Start: 05-23-2020 PT Coag (PPP) [Time] PT (PROTHROMBIN TIME) (55206) [facility] Work Phone: Start: 05-16-2020 Prothrombin time PT (PROTHROMBIN TIME) (10187) [facility]; [facility] Work Phone: Start: 05-16-2020 PT Coag (PPP) [Time] PT (PROTHROMBIN TIME) ([id number]) [facility] Work Phone: Start: 05-09-2020 Prothrombin time PT (PROTHROMBIN TIME) (11934) [facility]; [facility] Work Phone: Start: 05-09-2020 PT Coag (PPP) [Time] PT (PROTHROMBIN TIME) (94492) [facility] Work Phone: Start: 05-02-2020 Prothrombin time PT (PROTHROMBIN TIME) (90947) [facility]; [facility] Work Phone: Start: 05-02-2020 PT Coag (PPP) [Time] PT (PROTHROMBIN TIME) (64532) [facility] Work Phone: Start: 04-25-2020 Prothrombin time PT (PROTHROMBIN TIME) (85773) [facility]; [facility] Work Phone: Start: 04-25-2020 PT Coag (PPP) [Time] PT (PROTHROMBIN TIME) (54177) [facility] Work Phone: Start: 04-18-2020 PT Coag (PPP) [Time] PT (PROTHROMBIN TIME) (17566) [facility] Work Phone: Start: 04-13-2020 Procedure Education Eprescribed prescriptions (G8553) [facility] Work Phone: Start: 04-13-2020 Provider Instructions for Treatment [facility] Work Phone: Start: 04-11-2020 PT Coag (PPP) [Time] PT (PROTHROMBIN TIME) (69264) [facility] Work Phone: Start: 04-04-2020 PT Coag (PPP) [Time] PT (PROTHROMBIN TIME) ([id number]) [facility] Work Phone: Start: 03-28-2020 PT Coag (PPP) [Time] PT (PROTHROMBIN TIME) (13441) [facility] Work Phone: Start: 03-27-2020 Procedure Education Eprescribed prescriptions (G8553) [facility] Work Phone: Start: 03-27-2020 Provider Instructions for Treatment 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 2 weeks for Medicare exam [facility] Work Phone: Start: 02-21-2020 Procedure Education Eprescribed prescriptions (G8553) [facility] Work Phone: Start: 02-21-2020 Provider Instructions for Treatment [facility] Work Phone: Start: 01-09-2020 Procedure Education Eprescribed prescriptions (G8553) [facility] Work Phone: Start: 01-09-2020 Provider Instructions for Treatment 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 6 weeks [facility] Work Phone: Start: 01-02-2020 Procedure Education Eprescribed prescriptions (G8553) [facility] Work Phone: Start: 01-02-2020 Provider Instructions for Treatment 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 1 week schedule 30min [facility] Work Phone: Start: 12-27-2019 Procedure Education Eprescribed prescriptions (G8553) [facility] Work Phone: Start: 12-27-2019 Provider Instructions for Treatment Follow up - Make appt after diagnostic tests [facility] Work Phone: Start: 12-27-2019 Culture bct isol&prsmptv id isolate ea urine URINE FANI CULTURE-IDENTIFICATN (71456) [facility] Work Phone: Start: 12-27-2019 Urnls dip stick/tablet rgnt non-auto w/o micrscp Urinalysis, Office (21480) [facility] Work Phone: Start: 12-27-2019 Prothrombin time PT (PROTHROMBIN TIME) (04893) [facility]; [facility] Work Phone: Comment on above: standing order Start: 12-27-2019 PT Coag (PPP) [Time] PT (PROTHROMBIN TIME) (68961) [facility] Work Phone: Comment on above: standing order Start: 01-01-2018 End: 01-01-2018 Appointment Appointment [facility] Work Phone: Start: 10-02-2017 End: 10-02-2017 *BMP *BMP [facility] Work Phone: Start: 10-02-2017 End: 10-02-2017 BNP *Brain Natriuretic Peptide BNP [facility] Work Phone: Start: 10-02-2017 End: 10-06-2017 Echocardiography Echocardiogram (complete) [facility] Work Phone: Start: 10-02-2017 End: 10-02-2017 Follow Up Appt 3 months Follow Up Appt 3 months [facility] Work Phone: Start: 10-02-2017 End: 10-02-2017 JHR JHR [facility] Work Phone: Start: 10-02-2017 End: 10-02-2017 Appointment Appointment [facility] Work Phone: Start: 03-27-2017 End: 03-27-2017 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 [facility] Work Phone: Start: 03-27-2017 End: 03-27-2017 Follow Up Appt 6 months Follow Up Appt 6 months [facility] Work Phone: Start: 09-25-2016 End: 03-20-2017 Follow Up Appt 6 months Follow Up Appt 6 months [facility] Work Phone: Start: 09-25-2016 End: 03-20-2017 MMM MMM [facility] Work Phone: Start: 05-14-2016 End: 03-20-2017 Magnesium *Magnesium [facility] Work Phone: Start: 04-15-2016 End: 04-16-2016 Magnesium *Magnesium [facility] Work Phone: Start: 03-18-2016 End: 03-18-2016 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 [facility] Work Phone: Start: 03-18-2016 End: 03-18-2016 Follow Up Appt 6 months Follow Up Appt 6 months [facility] Work Phone: Start: 09-18-2015 End: 03-05-2016 Follow Up Appt 6 months Follow Up Appt 6 months [facility] Work Phone: Start: 09-18-2015 End: 03-05-2016 MMM MMM [facility] Work Phone: Start: 06-26-2015 End: 03-05-2016 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 [facility] Work Phone: Start: 06-26-2015 End: 03-05-2016 Follow Up Appt 3 months Follow Up Appt 3 months [facility] Work Phone: Start: 05-09-2015 End: 05-09-2015 Follow Up Appt 6 weeks Follow Up Appt 6 weeks [facility] Work Phone: Start: 05-09-2015 End: 05-09-2015 MMM MMM [facility] Work Phone: Start: 01-31-2015 End: 01-31-2015 Follow Up Appt 3 months Follow Up Appt 3 months [facility] Work Phone: Start: 01-31-2015 End: 01-31-2015 MMM MMM [facility] Work Phone: Start: 08-09-2014 End: 08-09-2014 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 [facility] Work Phone: Start: 08-09-2014 End: 08-09-2014 Follow Up Appt 6 months Follow Up Appt 6 months [facility] Work Phone: Start: 02-07-2014 End: 02-07-2014 Echocardiography Echocardiogram (complete) [facility] Work Phone: Start: 02-07-2014 End: 02-07-2014 Follow Up Appt 6 months Follow Up Appt 6 months [facility] Work Phone: Start: 02-07-2014 End: 02-07-2014 MMM MMM [facility] Work Phone: Start: 03-11-2013 End: 06-20-2013 *Hepatic Function Panel *Hepatic Function Panel [facility] Work Phone: Start: 03-11-2013 End: 06-20-2013 Lipid panel [AGGREGATE] *Lipid Profile [facility] Work Phone: Start: 02-04-2013 End: 02-04-2013 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 [facility] Work Phone: Start: 02-04-2013 End: 02-04-2013 Follow Up Appt 1 year Follow Up Appt 1 year [facility] Work Phone: Start: 06-29-2012 End: 06-29-2012 48 hour holter monitor 48 hour holter monitor [facility] Work Phone: Start: 06-29-2012 End: 08-09-2014 Follow Up Appt 6 months Follow Up Appt 6 months [facility] Work Phone: Start: 06-14-2010 25 hydroxy includes fractions if performed Vitamin D Hydroxy (49246) [facility] Work Phone: Start: 06-14-2010 Urine albumin quantitative MICROALBUMIN: CREATININE RATIO (30503) AND (53231) [facility] Work Phone: Start: 06-14-2010 Blood count manual cell count each CBC WITH MANUAL DIFF (65064) [facility] Work Phone: Start: 06-14-2010 Comprehensive metabolic panel METABOLIC PANEL, COMPREHENSIVE (23999) [facility] Work Phone: Start: 06-14-2010 Lipid panel LIPID PANEL (06918) [facility] Work Phone: Start: 06-14-2010 Hepatic function panel HEPATIC FUNCTION PANEL (88949) [facility] Work Phone: Start: 09-03-2009 Provider Instructions for Treatment [facility] Work Phone: Start: 09-03-2009 25 hydroxy includes fractions if performed Vitamin D Hydroxy (20876) [facility] Work Phone: Start: 09-03-2009 Urine albumin quantitative MICROALBUMIN: CREATININE RATIO (05342) AND (31820) [facility] Work Phone: Start: 09-03-2009 Comprehensive metabolic panel METABOLIC PANEL, COMPREHENSIVE (29367) [facility] Work Phone: Start: 09-03-2009 Lipid panel LIPID PANEL (13839) [facility] Work Phone: Start: 06-04-2009 Provider Instructions for Treatment Diet and Exercise [facility] Work Phone: Start: 03-05-2009 Blood count manual cell count each CBC WITH MANUAL DIFF (25813) [facility] Work Phone: Start: 03-05-2009 Comprehensive metabolic panel METABOLIC PANEL, COMPREHENSIVE (45413) [facility] Work Phone: Start: 03-05-2009 Urine albumin quantitative MICROALBUMIN: CREATININE RATIO (11560) AND (68984) [facility] Work Phone: Start: 03-05-2009 25 hydroxy includes fractions if performed Vitamin D Hydroxy (26710) [facility] Work Phone: Start: 12-04-2008 Provider Instructions for Treatment Calcium Education (KF) [facility] Work Phone: Start: 08-21-2008 Lipid panel LIPID PANEL (86244) [facility] Work Phone: Start: 08-21-2008 Hepatic function panel HEPATIC FUNCTION PANEL (80874) [facility] Work Phone: Start: 07-25-2008 Urnls dip stick/tablet rgnt auto w/o microscopy URINALYSIS W/O MICRO (05772) [facility] Work Phone: Start: 07-25-2008 Urine albumin quantitative MICROALBUMIN: CREATININE RATIO (86788) AND (38691) [facility] Work Phone: Start: 07-03-2008 Provider Instructions for Treatment FOLLOW UP NEEDED [facility] Work Phone: Start: 06-26-2008 Patient Education Sore throat: diagnosis and treatment [facility] Work Phone: Start: 06-26-2008 Provider Instructions for Treatment [facility] Work Phone: Start: 06-26-2008 Cul bact xcpt urine blood/stool aerobic isol FANI CULTURE-OTHER (30948) [facility] Work Phone: CBC W Auto Different ial panel - Blood [facility] metabo lic 2000 panel - Serum or Plasma [facility] Prothrombin time [facility] Thyroid stimulating hormone measurement [facility] Work Phone: [facility] Work Phone: [facility] Work Phone: [facility] Work Phone: [facility] Work Phone: [facility] Work Phone: [facility] Work Phone: [facility] Work Phone: [facility] Work Phone: [facility] Work Phone: [facility] Work Phone: [facility] Work Phone: [facility] Work Phone[facility] Work Phone: [facility] Work Phone: [facility] Work Phone: [facility]; [facility] Work Phone: [facility]; [facility] Work Phone: [facility]; [facility] Work Phone: Immunizations Immunization Date Immunization Notes Care Provider [facility] 08-23-2024 influenza, high dose seasonal, preservative-free Dr. Terrell Schafer MD Work Phone: [facility] 08-16-2010 pneumococcal vaccine , unspecified formulation Dr. Terrell Schafer MD Work Phone: [facility] 08-28-2008 influenza, seasonal, injectable Teresita Ruiz [facility] Work Phone: Comment on above: lot # [id number]- [id number] 0.5mg Payers Date Payer Category Payer Private Health Insurance 2024 Self-pay 2024 Medicare [id number] 2024 Private Health Insurance [id number] Unknown Unknown [id number] 2.16.8 [id number] Unknown [id number] 2.16.8 40.1.958590.3.579.2.462 Unknown [id number] 2.16.8 40.1.094373.3.579.2.462 Unknown [id number] 2.16.8 40.1.034807.3.579.2.462 Unknown [id number] 2.16.8 40.1.750463.3.579.2.462 Unknown [id number] 2.16.8 40.1.125593.3.579.2.462 Unknown [id number] 2.16.8 40.1.274388.3.579.2.462 Unknown [id number] 2.16.8 40.1.249964.3.579.2.462 Unknown [id number] 2.16.8 40.1.110197.3.579.2.462 Unknown [id number] 2.16.8 40.1.815852.3.579.2.462 Unknown [id number] 2.16.8 40.1.528533.3.579.2.462 Unknown [id number] 2.16.8 40.1.574178.3.579.2.462 Unknown [id number] 2.16.8 40.1.867117.3.579.2.462 Unknown [id number] 2.16.8 40.1.777534.3.579.2.462 Unknown [id number] 2.16.8 40.1.832477.3.579.2.462 Unknown [id number] 2.16.8 40.1.958416.3.579.2.462 Unknown [id number] 2.16.8 40.1.566708.3.579.2.462 Unknown [id number] 2.16.8 40.1.475933.3.579.2.462 Unknown [id number] 2.16.8 40.1.769291.3.579.2.462 Unknown [id number] 2.16.8 40.1.408940.3.579.2.462 Unknown [id number] 2.16.8 40.1.438868.3.579.2.462 Unknown [id number] 2.16.8 40.1.379325.3.579.2.462 Unknown [id number] 2.16.8 40.1.180741.3.579.2.462 Unknown [id number] 2.16.8 40.1.486961.3.579.2.462 Unknown [id number] 2.16.8 40.1.303209.3.579.2.462 Unknown [id number] 2.16.8 40.1.733891.3.579.2.462 Unknown [id number] 2.16.8 40.1.648505.3.579.2.462 Unknown [id number] 2.16.8 40.1.563462.3.579.2.462 Unknown [id number] 2.16.8 40.1.851053.3.579.2.462 Unknown [id number] 2.16.8 40.1.751242.3.579.2.462 Unknown [id number] 2.16.8 40.1.447326.3.579.2.462 Unknown [id number] 2.16.8 40.1.043751.3.579.2.462 Unknown [id number] 2.16.8 40.1.562875.3.579.2.462 Unknown [id number] 2.16.8 40.1.770237.3.579.2.462 Unknown [id number] 2.16.8 40.1.453874.3.579.2.462 Unknown [id number] 2.16.8 40.1.863416.3.579.2.462 Unknown [id number] 2.16.8 40.1.921026.3.579.2.462 Social History Date Type Detail Facility Caffeine Use Caffeine Use [facility] Work Phone: Comment on above: [employer] [facility] [employer] [facility] work Start: 1940 Sex Assigned At Not on file [facility] Start: 05-29-2025 Tobacco smoking stat [facility] Never smoked tobacco (finding) [facility] Start: 12-24-2014 Alcohol Alcohol [facility] Start: 12-24-2014 Lives Lives [facility] Start: 07-25-2014 Tobacco Use Tobacco Use [facility] Start: 1940 Sex Assigned At Female [facility] Medical Equipment Procedure Code Equipment Code Equipment Origin al Text Equipment Identifier Dates Contour Test In Vitro Strip 1 (one) Each 4 times a day for 0 days Quantity: 150 {Strip} Refills: 3 Ordered: 02-Jan-2020 Dante Cross LPN Start : 02-Jan-2020 Active Comments: E11.65 Start: 01-02-2020 Comment on above: E11.65 Contour Test In Vitro Strip 1 (one) Each 4 times a day for 0 days Quantity: 150 {Strip} Refills: 3 Ordered: 02-Jan-2020 Dante Cross LPN Start : 02-Jan-2020 Active Comments: E11.65 Start: 01-02-2020 Comment on above: E11.65 Contour Test In Vitro Strip 1 (one) Each 4 times a day for 0 days Quantity: 150 {Strip} Refills: 3 Ordered: 02-Jan-2020 Dante Cross LPN Start : 02-Jan-2020 Active Comments: E11.65 Start: 01-02-2020 Comment on above: E11.65 Contour Test In Vitro Strip 1 (one) Each 4 times a day for 0 days Quantity: 150 {Strip} Refills: 3 Ordered: 02-Jan-2020 Dante Cross LPN Start : 02-Jan-2020 Active Comments: E11.65 Start: 01-02-2020 Comment on above: E11.65 Contour Test In Vitro Strip 1 (one) Each 4 times a day for 0 days Quantity: 150 {Strip} Refills: 3 Ordered: 02-Jan-2020 Dante Cross LPN Start : 02-Jan-2020 Active Comments: E11.65 Start: 01-02-2020 Comment on above: E11.65 Contour Test In Vitro Strip 1 (one) Each 4 times a day for 0 days Quantity: 150 {Strip} Refills: 3 Ordered: 02-Jan-2020 Dante Cross LPN Start : 02-Jan-2020 Active Comments: E11.65 Start: 01-02-2020 Comment on above: E11.65 Contour Test In Vitro Strip 1 (one) Each 4 times a day for 0 days Quantity: 150 {Strip} Refills: 3 Ordered: 02-Jan-2020 Dante Cross LPN Start : 02-Jan-2020 Active Comments: E11.65 Start: 01-02-2020 Comment on above: E11.65 Contour Test In Vitro Strip 1 (one) Each 4 times a day for 0 days Quantity: 150 {Strip} Refills: 3 Ordered: 02-Jan-2020 Dante Salmon LPN Start : 02-Jan-2020 Active Comments: E11.65 Start: 01-02-2020 Comment on above: E11.65 Contour Test In Vitro Strip 1 (one) Each 4 times a day for 0 days Quantity: 150 {Strip} Refills: 3 Ordered: 02-Jan-2020 Dante Salmon LPN Start : 02-Jan-2020 Active Comments: E11.65 Start: 01-02-2020 Comment on above: E11.65 Contour Test In Vitro Strip 1 (one) Each 4 times a day for 0 days Quantity: 150 {Strip} Refills: 3 Ordered: 02-Jan-2020 Dante Salmon LPN Start : 02-Jan-2020 Active Comments: E11.65 Start: 01-02-2020 Comment on above: E11.65 Contour Test In Vitro Strip 1 (one) Each 4 times a day for 0 days Quantity: 150 {Strip} Refills: 3 Ordered: 02-Jan-2020 Dante Salmon LPN Start : 02-Jan-2020 Active Comments: E11.65 Start: 01-02-2020 Comment on above: E11.65 Contour Test In Vitro Strip 1 (one) Each 4 times a day for 0 days Quantity: 150 {Strip} Refills: 3 Ordered: 02-Jan-2020 Dante Salmon LPN Start : 02-Jan-2020 Active Comments: E11.65 Start: 01-02-2020 Comment on above: E11.65 Contour Test In Vitro Strip 1 (one) Each 4 times a day for 0 days Quantity: 150 {Strip} Refills: 3 Ordered: 02-Jan-2020 Dante Salmon LPN Start : 02-Jan-2020 Active Comments: E11.65 Start: 01-02-2020 Comment on above: E11.65 Contour Test In Vitro Strip 1 (one) Each 4 times a day for 0 days Quantity: 150 {Strip} Refills: 3 Ordered: 02-Jan-2020 Dante Salmon LPN Start : 02-Jan-2020 Active Comments: E11.65 Start: 01-02-2020 Comment on above: E11.65 Contour Test In Vitro Strip 1 (one) Each 4 times a day for 0 days Quantity: 150 {Strip} Refills: 3 Ordered: 02-Jan-2020 Dante Salmon LPN Start : 02-Jan-2020 Active Comments: E11.65 Start: 01-02-2020 Comment on above: E11.65 Contour Test In Vitro Strip 1 (one) Each 4 times a day for 0 days Quantity: 150 {Strip} Refills: 3 Ordered: 02-Jan-2020 Dante Salmon LPN Start : 02-Jan-2020 Active Comments: E11.65 Start: 01-02-2020 Comment on above: E11.65 Contour Test In Vitro Strip 1 (one) Each 4 times a day for 0 days Quantity: 150 {Strip} Refills: 3 Ordered: 02-Jan-2020 Dante Salmon LPN Start : 02-Jan-2020 Active Comments: E11.65 Start: 01-02-2020 Comment on above: E11.65 Contour Test In Vitro Strip 1 (one) Each 4 times a day for 0 days Quantity: 150 {Strip} Refills: 3 Ordered: 02-Jan-2020 Dante Salmon LPN Start : 02-Jan-2020 Active Comments: E11.65 Start: 01-02-2020 Comment on above: E11.65 Contour Test In Vitro Strip 1 (one) Each 4 times a day for 0 days Quantity: 150 {Strip} Refills: 3 Ordered: 02-Jan-2020 Dante Salmon LPN Start : 02-Jan-2020 Active Comments: E11.65 Start: 01-02-2020 Comment on above: E11.65 Contour Test In Vitro Strip 1 (one) Each 4 times a day for 0 days Quantity: 150 {Strip} Refills: 3 Ordered: 02-Jan-2020 Dante Salmon LPN Start : 02-Jan-2020 Active Comments: E11.65 Start: 01-02-2020 Comment on above: E11.65 Contour Test In Vitro Strip 1 (one) Each 4 times a day for 0 days Quantity: 150 {Strip} Refills: 3 Ordered: 02-Jan-2020 Dante Salmon LPN Start : 02-Jan-2020 Active Comments: E11.65 Start: 01-02-2020 Comment on above: E11.65 Contour Test In Vitro Strip 1 (one) Each 4 times a day for 0 days Quantity: 150 {Strip} Refills: 3 Ordered: 02-Jan-2020 Dante Salmon LPN Start : 02-Jan-2020 Active Comments: E11.65 Start: 01-02-2020 Comment on above: E11.65 Contour Test In Vitro Strip 1 (one) Each 4 times a day for 0 days Quantity: 150 {Strip} Refills: 3 Ordered: 02-Jan-2020 Dante Salmon LPN Start : 02-Jan-2020 Active Comments: E11.65 Start: 01-02-2020 Comment on above: E11.65 Contour Test In Vitro Strip 1 (one) Each 4 times a day for 0 days Quantity: 150 {Strip} Refills: 3 Ordered: 02-Jan-2020 Dante Salmon LPN Start : 02-Jan-2020 Active Comments: E11.65 Start: 01-02-2020 Comment on above: E11.65 Contour Test In Vitro Strip 1 (one) Each 4 times a day for 0 days Quantity: 150 {Strip} Refills: 3 Ordered: 02-Jan-2020 Dante Salmon LPN Start : 02-Jan-2020 Active Comments: E11.65 Start: 01-02-2020 Comment on above: E11.65 Contour Test In Vitro Strip 1 (one) Each 4 times a day for 0 days Quantity: 150 {Strip} Refills: 3 Ordered: 02-Jan-2020 Dante Salmon LPN Start : 02-Jan-2020 Active Comments: E11.65 Start: 01-02-2020 Comment on above: E11.65 Contour Test In Vitro Strip 1 (one) Each 4 times a day for 0 days Quantity: 150 {Strip} Refills: 3 Ordered: 02-Jan-2020 Dante Salmon LPN Start : 02-Jan-2020 Active Comments: E11.65 Start: 01-02-2020 Comment on above: E11.65 Contour Test In Vitro Strip 1 (one) Each 4 times a day for 0 days Quantity: 150 {Strip} Refills: 3 Ordered: 02-Jan-2020 Dante Salmon LPN Start : 02-Jan-2020 Active Comments: E11.65 Start: 01-02-2020 Comment on above: E11.65 Contour Test In Vitro Strip 1 (one) Each 4 times a day for 0 days Quantity: 150 {Strip} Refills: 3 Ordered: 02-Jan-2020 Dante Salmon LPN Start : 02-Jan-2020 Active Comments: E11.65 Start: 01-02-2020 Comment on above: E11.65 Contour Test In Vitro Strip 1 (one) Each 4 times a day for 0 days Quantity: 150 {Strip} Refills: 3 Ordered: 02-Jan-2020 Dante Salmon LPN Start : 02-Jan-2020 Active Comments: E11.65 Start: 01-02-2020 Comment on above: E11.65 Contour Test In Vitro Strip 1 (one) Each 4 times a day for 0 days Quantity: 150 {Strip} Refills: 3 Ordered: 02-Jan-2020 Dante Salmon LPN Start : 02-Jan-2020 Active Comments: E11.65 Start: 01-02-2020 Comment on above: E11.65 Contour Test In Vitro Strip 1 (one) Each 4 times a day for 0 days Quantity: 150 {Strip} Refills: 3 Ordered: 02-Jan-2020 Dante Salmon LPN Start : 02-Jan-2020 Active Comments: E11.65 Start: 01-02-2020 Comment on above: E11.65 Contour Test In Vitro Strip 1 (one) Each 4 times a day for 0 days Quantity: 150 {Strip} Refills: 3 Ordered: 02-Jan-2020 Dante Salmon LPN Start : 02-Jan-2020 Active Comments: E11.65 Start: 01-02-2020 Comment on above: E11.65 Contour Test In Vitro Strip 1 (one) Each 4 times a day for 0 days Quantity: 150 {Strip} Refills: 3 Ordered: 02-Jan-2020 Dante Salmon LPN Start : 02-Jan-2020 Active Comments: E11.65 Start: 01-02-2020 Comment on above: E11.65 Contour Test In Vitro Strip 1 (one) Each 4 times a day for 0 days Quantity: 150 {Strip} Refills: 3 Ordered: 02-Jan-2020 Dante Salmon LPN Start : 02-Jan-2020 Active Comments: E11.65 Start: 01-02-2020 Comment on above: E11.65 Contour Test In Vitro Strip 1 (one) Each 4 times a day for 0 days Quantity: 150 {Strip} Refills: 3 Ordered: 16-Sep-2021 Ciesa 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, Arlet Ciesa 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, Arlet Start : 16-Sep-2021 Active Comments: E11.65 Start: 09-16-2021 Comment on above: E11.65 FreeStyle Jerri 14 Day Sensor Miscellaneous as directed for 0 days Quantity: 2 {Strip} Refills: 0 Ordered: 18-Nov-2021 Ciesa 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, Arlet Ciesa 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, Arlet Start : 18-Nov-2021 Active Comments: BILL UNDER MEDICARE PART B Start: 11-18-2021 Comment on above: BILL UNDER MEDICARE PART B Contour Test In Vitro Strip 1 (one) Each 4 times a day for 0 days Quantity: 150 {Strip} Refills: 3 Ordered: 16-Sep-2021 Ciesa 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, Arlet Ciesa 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, Arlet Start : 16-Sep-2021 Active Comments: E11.65 Start: 09-16-2021 Comment on above: E11.65 FreeStyle Jerri 14 Day Sensor Miscellaneous as directed for 0 days Quantity: 2 {Strip} Refills: 0 Ordered: 18-Nov-2021 Ciesa 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, Arlet Ciesa 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, Arlet Start : 18-Nov-2021 Active Comments: BILL UNDER MEDICARE PART B Start: 11-18-2021 Comment on above: BILL UNDER MEDICARE PART B Contour Test In Vitro Strip 1 (one) Each 4 times a day for 0 days Quantity: 150 {Strip} Refills: 3 Ordered: 16-Sep-2021 Ciesa 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, Arlet Ciesa 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, Arlet Start : 16-Sep-2021 Active Comments: E11.65 Start: 09-16-2021 Comment on above: E11.65 FreeStyle Jerri 14 Day Sensor Miscellaneous as directed for 0 days Quantity: 2 {Strip} Refills: 0 Ordered: 29-Nov-2021 Ciesa 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, Arlet Ciesa 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, Arlet Start : 29-Nov-2021 Active Comments: BILL UNDER MEDICARE PART B Start: 11-29-2021 Comment on above: BILL UNDER MEDICARE PART B Contour Test In Vitro Strip 1 (one) Each 4 times a day for 0 days Quantity: 150 {Strip} Refills: 3 Ordered: 16-Sep-2021 Ciesa 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, Arlet Ciesa 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, Arlet Start : 16-Sep-2021 Active Comments: E11.65 Start: 09-16-2021 Comment on above: E11.65 FreeStyle Jerri 14 Day Sensor Miscellaneous as directed for 0 days Quantity: 2 {Strip} Refills: 0 Ordered: 29-Nov-2021 Ciesa 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, Arlet Ciesa 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, Arlet Start : 29-Nov-2021 Active Comments: BILL UNDER MEDICARE PART B Start: 11-29-2021 Comment on above: BILL UNDER MEDICARE PART B Contour Test In Vitro Strip 1 (one) Each 4 times a day for 0 days Quantity: 150 {Strip} Refills: 3 Ordered: 16-Sep-2021 Ciesa 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, Arlet Ciesa 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, Arlet Start : 16-Sep-2021 Active Comments: E11.65 Start: 09-16-2021 Comment on above: E11.65 FreeStyle Jerri 14 Day Sensor Miscellaneous as directed for 0 days Quantity: 2 {Strip} Refills: 0 Ordered: 29-Nov-2021 Ciesa 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, Arlet Ciesa 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, Arlet Start : 29-Nov-2021 Active Comments: BILL UNDER MEDICARE PART B Start: 11-29-2021 Comment on above: BILL UNDER MEDICARE PART B Contour Test In Vitro Strip 1 (one) Each 4 times a day for 0 days Quantity: 150 {Strip} Refills: 3 Ordered: 16-Sep-2021 Ciesa 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, Arlet Ciesa 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, Arlet Start : 16-Sep-2021 Active Comments: E11.65 Start: 09-16-2021 Comment on above: E11.65 FreeStyle Jerri 14 Day Sensor Miscellaneous as directed for 0 days Quantity: 2 {Strip} Refills: 0 Ordered: 29-Nov-2021 Sitaa HUNTER, Arlet Sitaa HUNTER, Teresita Meadows Start : 29-Nov-2021 Active Comments: BILL UNDER MEDICARE PART B Start: 11-29-2021 Comment on above: BILL UNDER MEDICARE PART B Contour Test In Vitro Strip 1 (one) Each 4 times a day for 0 days Quantity: 150 {Strip} Refills: 3 Ordered: 16-Sep-2021 Sitaa HUNTER, Arlet Joseph HARRISON, Teresita Meadows Start : 16-Sep-2021 Active Comments: E11.65 Start: 09-16-2021 Comment on above: E11.65 FreeStyle Jerri 14 Day Sensor Miscellaneous as directed for 0 days Quantity: 2 {Strip} Refills: 0 Ordered: 29-Nov-2021 Joseph HARRISON, Arlet oJseph HARRISON, Teresita Meadows Start : 29-Nov-2021 Active Comments: BILL UNDER MEDICARE PART B Start: 11-29-2021 Comment on above: BILL UNDER MEDICARE PART B Contour Test In Vitro Strip 1 (one) Each 4 times a day for 0 days Quantity: 150 {Strip} Refills: 3 Ordered: 16-Sep-2021 Sitaa HUNTER, Arlet Joseph HARRISON, Teresita Meadows Start : 16-Sep-2021 Active Comments: E11.65 Start: 09-16-2021 Comment on above: E11.65 FreeStyle Jerri 14 Day Sensor Miscellaneous as directed for 0 days Quantity: 2 {Strip} Refills: 0 Ordered: 29-Nov-2021 Sitaa HUNTER, Arlet Joseph HARRISON, Teresita Meadows Start : 29-Nov-2021 Active Comments: BILL UNDER MEDICARE PART B Start: 11-29-2021 Comment on above: BILL UNDER MEDICARE PART B Contour Test In Vitro Strip 1 (one) Each 4 times a day for 0 days Quantity: 150 {Strip} Refills: 3 Ordered: 16-Sep-2021 Teresita Ruiz Mary Start : 16-Sep-2021 Active Comments: E11.65 Start: 09-16-2021 Comment on above: E11.65 FreeStyle Jerri 14 Day Sensor Miscellaneous as directed for 0 days Quantity: 2 {Strip} Refills: 0 Ordered: 29-Nov-2021 Teresita Ruiz Mary Start : 29-Nov-2021 Active Comments: BILL UNDER MEDICARE PART B Start: 11-29-2021 Comment on above: BILL UNDER MEDICARE PART B Contour Test In Vitro Strip 1 (one) Each 4 times a day for 0 days Quantity: 150 {Strip} Refills: 3 Ordered: 16-Sep-2021 Teresita Ruiz Mary Start : 16-Sep-2021 Active Comments: E11.65 Start: 09-16-2021 Comment on above: E11.65 FreeStyle Jerri 14 Day Sensor Miscellaneous as directed for 0 days Quantity: 2 {Strip} Refills: 0 Ordered: 29-Nov-2021 Teresita Ruiz Mary Start : 29-Nov-2021 Active Comments: BILL UNDER MEDICARE PART B Start: 11-29-2021 Comment on above: BILL UNDER MEDICARE PART B Contour Test In Vitro Strip 1 (one) Each 4 times a day for 0 days Quantity: 150 {Strip} Refills: 3 Ordered: 16-Sep-2021 Teresita Ruiz Start : 16-Sep-2021 Active Comments: E11.65 Start: 09-16-2021 Comment on above: E11.65 FreeStyle Jerri 14 Day Sensor Miscellaneous as directed for 0 days Quantity: 2 {Strip} Refills: 0 Ordered: 29-Nov-2021 Teresita Ruiz Start : 29-Nov-2021 Active Comments: BILL UNDER MEDICARE PART B Start: 11-29-2021 Comment on above: BILL UNDER MEDICARE PART B Contour Test In Vitro Strip 1 (one) Each 4 times a day for 0 days Quantity: 150 {Strip} Refills: 3 Ordered: 16-Sep-2021 Teresita Ruiz Start : 16-Sep-2021 Active Comments: E11.65 Start: 09-16-2021 Comment on above: E11.65 Contour Test In Vitro Strip 1 (one) Each 4 times a day for 0 days Quantity: 150 {Strip} Refills: 3 Ordered: 16-Sep-2021 Teresita Ruiz Start : 16-Sep-2021 Active Comments: E11.65 Start: 09-16-2021 Comment on above: E11.65 FreeStyle Jerri 14 Day Sensor Miscellaneous as directed for 0 days Quantity: 2 {Strip} Refills: 0 Ordered: 29-Nov-2021 Teresita Ruiz Start : 29-Nov-2021 Active Comments: BILL UNDER MEDICARE PART B Start: 11-29-2021 Comment on above: BILL UNDER MEDICARE PART B Contour Test In Vitro Strip 1 (one) Each 4 times a day for 0 days Quantity: 150 {Strip} Refills: 3 Ordered: 16-Sep-2021 Teresita Ruiz Start : 16-Sep-2021 Active Comments: E11.65 Start: 09-16-2021 Comment on above: E11.65 FreeStyle Jerri 14 Day Sensor Miscellaneous as directed for 0 days Quantity: 2 {Strip} Refills: 0 Ordered: 29-Nov-2021 Teresita Ruiz Start : 29-Nov-2021 Active Comments: BILL UNDER MEDICARE PART B Start: 11-29-2021 Comment on above: BILL UNDER MEDICARE PART B Contour Test In Vitro Strip 1 (one) Each 4 times a day for 0 days Quantity: 150 {Strip} Refills: 3 Ordered: 16-Sep-2021 Teresita Ruiz Start : 16-Sep-2021 Active Comments: E11.65 Start: 09-16-2021 Comment on above: E11.65 FreeStyle Jerri 14 Day Sensor Miscellaneous as directed for 0 days Quantity: 2 {Strip} Refills: 0 Ordered: 29-Nov-2021 Teresita Ruiz Start : 29-Nov-2021 Active Comments: BILL UNDER MEDICARE PART B Start: 11-29-2021 Comment on above: BILL UNDER MEDICARE PART B Contour Test In Vitro Strip 1 (one) Each 4 times a day for 0 days Quantity: 150 {Strip} Refills: 3 Ordered: 16-Sep-2021 Teresita Ruiz Start : 16-Sep-2021 Active Comments: E11.65 Start: 09-16-2021 Comment on above: E11.65 FreeStyle Jerri 14 Day Sensor Miscellaneous as directed for 0 days Quantity: 2 {Strip} Refills: 0 Ordered: 29-Nov-2021 Teresita Ruiz Start : 29-Nov-2021 Active Comments: BILL UNDER MEDICARE PART B Start: 11-29-2021 Comment on above: BILL UNDER MEDICARE PART B Contour Test In Vitro Strip 1 (one) Each 4 times a day for 0 days Quantity: 150 {Strip} Refills: 3 Ordered: 16-Sep-2021 Teresita Ruiz Start : 16-Sep-2021 Active Comments: E11.65 Start: 09-16-2021 Comment on above: E11.65 FreeStyle Jerri 14 Day Sensor Miscellaneous as directed for 0 days Quantity: 2 {Strip} Refills: 0 Ordered: 29-Nov-2021 Teresita Ruiz Start : 29-Nov-2021 Active Comments: BILL UNDER MEDICARE PART B Start: 11-29-2021 Comment on above: BILL UNDER MEDICARE PART B Contour Test In Vitro Strip 1 (one) Each 4 times a day for 0 days Quantity: 150 {Strip} Refills: 3 Ordered: 16-Sep-2021 Teresita Ruiz Start : 16-Sep-2021 Active Comments: E11.65 Start: 09-16-2021 Comment on above: E11.65 FreeStyle Jerri 14 Day Sensor Miscellaneous as directed for 0 days Quantity: 2 {Strip} Refills: 0 Ordered: 29-Nov-2021 Teresita Ruiz Start : 29-Nov-2021 Active Comments: BILL UNDER MEDICARE PART B Start: 11-29-2021 Comment on above: BILL UNDER MEDICARE PART B Blood Sugar Diagnostic (Freestyle Lite Strips) strip Start: 02-23-2025 Lancets (Freesty le Lancets) 28 gauge misc Start: 02-23-2025 Pen Needle, Diab etic (Bd Ultra-Fine Kimber Pen Needle) 32 gauge x 5/32 needle Start: 10-09-2020 Clinical Notes 08-23-2024 to 02-08-2025 Note Date & Type Note Facility 02-08-2025 Evaluation note Diagnosis Onset Date Resolution Essential (primary) hypertension chronic February 08, 2025 4:04pm Hypothyroidism chronic January 4:04pm Osteoporosis chronic February 08, 2025 4:04pm Persistent atrial fibrillation chronic February 08, 2025 4:04pm 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 January 152024 4:04pm Type 2 diabetes mellitus chronic February 08, 2025 4:04pm Essential (primary) hypertension chronic February 13, 2025 10:45am Hyperlipidemia chronic January 10:45am Persistent atrial fibrillation chronic February 13, 2025 10:45am S/P TAVR (transcatheter aortic valve replacement) chronic February 13, 2025 10:45am Type 2 diabetes mellitus chronic February 13, 2025 10:45am Chronic kidney disease chronic Ap 2024 9:59am Essential (primary) hypertension chronic March 13, 2025 9:59am Hyperlipidemia chronic February 9:59am Hypothyroidism chronic February 9:59am Microalbuminuria chronic March 132024 9:59am Obesity chronic March 13 9:59am Type 2 diabetes mellitus chronic March 13, 2025 9:59am [facility] Work Phone: [phone]) 798-157810-08-2024 [facility] Medical Records Department [address] [place] [address] Discharge Summary 08/23/24 1414 MR#: [id number] Acct: [id number] Name: VASILE MILLER Rep #: [id number] : 1940 83 From: Michelle Hernández DO PCP: Dr. Terrell Schafer MD Status:ADM ANNA Location: [place] [id number] Providers Date of Admission: 08/22/24 Date of Discharge: 08/23/24 Primary Care Physician: Dr. Terrell Schafer MD Reason For Visit: INTRACTABLE BACK Diagnosis Discharge Diagnosis (1) Intractable back pain: Status: Acute Code(s): M54.9 - Dorsalgia, unspecified (2) Type 2 diabetes mellitus: Status: Chronic Code(s): E11.9 - Type 2 diabetes mellitus without complications Qualifiers: Diabetes mellitus business reporting developer insulin use: with longterm use Diabetes mellitus complication status: with kidney complications Diabetes mellitus complication detail: with chronic kidney disease Chronic kidney disease stage: stage 3 (moderate) Chronic kidney disease stage 3 subtype: s tage 3b (GFR 30-44) Qualified Code(s): E11.22 - Type 2 diabetes mellitus with diabetic chronic kidney disease; N18.32 - Chronic kidney disease, stage 3b; Z79.4 - retirement (current) use of insulin (3) Heart valve transplant recipient: Status: Acute Code(s): Z95.2 - Presence of prosthetic heart valve (4) Atrial fibrillation: Status: Acute Code(s): I48.91 - Unspecified atrial fibrillation Qualifiers: Atrial fibrillation type: persistent (not longstanding) Qualified Code(s): I48.19 - Other persistent atrial fibrillation (5) S/P TAVR (transcatheter aortic valve replacement): Status: Acute Code(s): Z95.2 - Presence of prosthetic heart valve (6) Secondary pulmonary arterial hypertension: Status: Chronic Code(s): I27.21 - Secondary pulmonary arterial hypertension (7) Hypercoagulable state due to atrial fibrillation: Status: Acute Code(s): D68.69 - Other thrombophilia; I48.91 - Unspecified atrial fibrillation (8) Supratherapeutic INR: Status: Acute Code(s): R79.1 - Abnormal coagulation profile Medications at Discharge Home Medications atorvastatin 40 mg tablet 40 mg PO DAILY CHOLESTEROL 12/28/17 ergocalciferol (vitamin D2) 1,250 mcg (50,000 unit) capsule 50,000 unit PO QWEEK 12/31/17 pen needle, diabetic 32 gauge x 5/32 (BD Ultra-Fine Kimber Pen Needle) #400 ea 10/09/20 hydrochlorothiazide 25 mg tablet 25 mg PO DAILY BLOOD PRESSURE #90 tabs 05/07/21 levothyroxine 25 mcg capsule 25 mcg PO DAILY THYROID 05/07/21 cetirizine 5 mg tablet 5 mg PO DAILY ALLERGIES 06/01/24 furosemide 20 mg tablet 20 mg PO DAILY EDEMA 06/01/24 insulin detemir U-100 100 unit/mL (3 mL) subcutaneous pen 22 unit subcut DAILY 06/01/24 metoprolol tartrate 50 mg tablet 100 mg PO BID BLOOD PRESSURE 06/01/24 acetaminophen 650 mg tablet,extended release (Tylenol Arthritis Pain) 650 mg PO Q12H PRN PAIN 07/28/24 amoxicillin 500 mg capsule 2,000 mg PO ONCE PRN DENTAL APPOINTMENTS 07/28/24 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 meter,continuous (Dexcom G7 Java Developer Consultant) 07/28/24 glucagon HCl 1 mg solution for injection (Glucagon (HCl) Emergency Kit) 1 mg subcut Q20M PRN HYPOGLYCEMIA 07/28/24 insulin aspart U-100 100 unit/mL (3 mL) subcutaneous pen (Novolog FlexPen U-100 Insulin aspart) 12 unit subcut TID DIABETES 07/28/24 nystatin 100,000 unit/gram topical powder 1 applic topical BID PRN FUNGAL INFECTION 07/28/24 trolamine salicylate 10 % topical cream (Myoflex) 1 applic topical DAILY PRN ARTHRITIS 07/28/24 warfarin 1 mg tablet 8 mg PO DAILY BLOOD THINNER 07/28/24 alendronate 70 mg tablet 70 mg PO QWEEK OSTEOPEROSIS 08/22/24 clotrimazole-betamethasone 1 %-0.05 % topical cream 1 applic topical BID PRN FUNGAL INFECTION 08/22/24 insulin degludec 100 unit/mL (3 mL) subcutaneous pen (Tresiba FlexTouch U-100 insulin) 16 unit subcut BID DIABETES 08/22/24 ketoconazole 2 % shampoo 1 applic topical UD PRN FUNGAL INFECTION 08/22/24 ketoconazole 2 % topical cream 1 applic topical DAILY PRN FUNGAL INFECTION 08/22/24 losartan 100 mg tablet 100 mg PO DAILY BLOOD PRESSURE 08/22/24 magnesium chloride 71.5 mg (magnesium chloride) tablet,delayed release 143 mg PO DAILY SUPPLEMENT 08/22/24 acetaminophen 500 mg tablet 1,000 mg (2 x 500 mg) PO Q8 #0 tabs 08/23/24 gabapentin 100 mg capsule 100 mg PO TIDCM #42 caps 08/23/24 oxycodone 5 mg tablet 5 mg PO Q6H PRN pain 5 days #20 tabs 08/23/24 sennosides 8.6 mg-docusate sodium 50 mg tablet (Stimulant Laxative Plus) 2 tab PO BID PRN PRN Constipation #30 tabs 08/23/24 tizanidine 2 mg tablet 2 mg PO Q8 PRN muscle spasticity #15 tabs 08/23/24 Hospital Course Procedures - (Lumbar spine x-ray) Summary of Care Provided Minutes Spent on Discharge: 25 Hospital Course: Patient is an 83-year-old white female who presented to the emergency department at [facility] on 08/22/2024 due to intractable back pain. On presentation she stated that it was excruciating in (more content not included)...[facility] Instructions* Name Dates Details Patient Instructions Indication:Nonsmoker Start:27-Feb-2021 Instruction Type:Provider Instructions for Treatment How to Access Health Informa tion Online using Patient Portal and 3rd Libertarian Apps Indication:Nonsmoker Start:27-Feb-2021 Instruction Type:Patient Education Patient Instructions Indication:BMI 40.0-44.9, adult Start:28-Nov-2020 Instruction Type:Provider Instructions for Treatment How to Access Health Informa tion Online using Patient Portal and 3rd Libertarian Apps Indication:BMI 40.0-44.9, adult Start:28-Nov-2020 Instruction Type:Patient Education Patient Instructions Indication:Nonsmoker Start:06-Nov-2020 Instruction Type:Provider Instructions for Treatment How to Access Health Informa tion Online using Patient Portal and 3rd Libertarian Apps Indication:Nonsmoker Start:06-Nov-2020 Instruction Type:Patient Education How to access health informa tion online Indication:Nonsmoker Start:16-Oct-2020 Instruction Type:Patient Education How to access health informa tion online - Detail Indication:Nonsmoker Start:16-Oct-2020 Instruction Type:Patient Education Patient Instructions Indication:Nonsmoker Start:16-Oct-2020 Instruction Type:Provider Instructions for Treatment How to access health informa tion online Indication:Uncontrolled type II diabetes mellitus Start:16-Jul-2020 Instruction Type:Patient Education How to access health informa tion online - Detail Indication:Uncontrolled type II diabetes mellitus Start:16-Jul-2020 Instruction Type:Patient Education Patient Instructions Indication:Vitamin D deficiency Start:16-Jul-2020 Instruction Type:Provider Instructions for Treatment How to access health informa tion online Indication:Nonsmoker Start:13-Apr-2020 Instruction Type:Patient Education How to access health informa tion online - Detail Indication:Nonsmoker Start:13-Apr-2020 Instruction Type:Patient Education Patient Instructions Indication:Uncontrolled type II diabetes mellitus Start:13-Apr-2020 Instruction Type:Provider Instructions for Treatment How to access health informa tion online Indication:Nonsmoker Start:27-Mar-2020 Instruction Type:Patient Education How to access health informa tion online - Detail Indication:Nonsmoker Start:27-Mar-2020 Instruction Type:Patient Education Patient Instructions Indication:Nonsmoker Start:27-Mar-2020 Instruction Type:Provider Instructions for Treatment How to access health informa tion online Indication:BMI 40.0-44.9, adult Start:21-Feb-2020 Instruction Type:Patient Education How to access health informa tion online - Detail Indication:BMI 40.0-44.9, adult Start:21-Feb-2020 Instruction Type:Patient Education Patient Instructions Indication:Mixed hyperlipidemia Start:21-Feb-2020 Instruction Type:Provider Instructions for Treatment How to access health informa tion online Indication:Nonsmoker Start:09-Jan-2020 Instruction Type:Patient Education How to access health informa tion online - Detail Indication:Nonsmoker Start:09-Jan-2020 Instruction Type:Patient Education Patient Instructions Indication:BMI 39.0-39.9,adult Start:09-Jan-2020 Instruction Type:Provider Instructions for Treatment How to access health informa tion online Indication:Nonsmoker Start:02-Jan-2020 Instruction Type:Patient Education How to access health informa tion online - Detail Indication:Nonsmoker Start:02-Jan-2020 Instruction Type:Patient Education Patient Instructions Indication:Mixed hyperlipidemia Start:02-Jan-2020 Instruction Type:Provider Instructions for Treatment How to access health informa tion online Indication:Uncontrolled type II diabetes mellitus Start:27-Dec-2019 Instruction Type:Patient Education How to access health informa tion online - Detail Indication:Uncontrolled type II diabetes mellitus Start:27-Dec-2019 Instruction Type:Patient Education Patient Instructions Indication:Uncontrolled type II diabetes mellitus Start:27-Dec-2019 Instruction Type:Provider Instructions for Treatment [facility]; [facility] Work Phone: Instructions* Name Dates Details Patient Instructions Indication:Nonsmoker Start:11-Mar-2021 Instruction Type:Provider Instructions for Treatment How to Access Health Informa tion Online using Patient Portal and 3rd Libertarian Apps Indication:Nonsmoker Start:11-Mar-2021 Instruction Type:Patient Education Patient Instructions Indication:Nonsmoker Start:27-Feb-2021 Instruction Type:Provider Instructions for Treatment How to Access Health Informa tion Online using Patient Portal and 3rd Libert[employer] Apps Indication:Nonsmoker Start:27-Feb-2021 Instruction Type:Patient Education Patient Instructions Indication:BMI 40.0-44.9, adult Start:28-Nov-2020 Instruction Type:Provider Instructions for Treatment How to Access Health Informa tion Online using Patient Portal and 3rd Libert[employer] Apps Indication:BMI 40.0-44.9, adult Start:28-Nov-2020 Instruction Type:Patient Education Patient Instructions Indication:Nonsmoker Start:06-Nov-2020 Instruction Type:Provider Instructions for Treatment How to Access Health Informa tion Online using Patient Portal and 3rd Libertarian Apps Indication:Nonsmoker Start:06-Nov-2020 Instruction Type:Patient Education How to access health informa tion online Indication:Nonsmoker Start:16-Oct-2020 Instruction Type:Patient Education How to access health informa tion online - Detail Indication:Nonsmoker Start:16-Oct-2020 Instruction Type:Patient Education Patient Instructions Indication:Nonsmoker Start:16-Oct-2020 Instruction Type:Provider Instructions for Treatment How to access health informa tion online Indication:Uncontrolled type II diabetes mellitus Start:16-Jul-2020 Instruction Type:Patient Education How to access health informa tion online - Detail Indication:Uncontrolled type II diabetes mellitus Start:16-Jul-2020 Instruction Type:Patient Education Patient Instructions Indication:Vitamin D deficiency Start:16-Jul-2020 Instruction Type:Provider Instructions for Treatment How to access health informa tion online Indication:Nonsmoker Start:13-Apr-2020 Instruction Type:Patient Education How to access health informa tion online - Detail Indication:Nonsmoker Start:13-Apr-2020 Instruction Type:Patient Education Patient Instructions Indication:Uncontrolled type II diabetes mellitus Start:13-Apr-2020 Instruction Type:Provider Instructions for Treatment How to access health informa tion online Indication:Nonsmoker Start:27-Mar-2020 Instruction Type:Patient Education How to access health informa tion online - Detail Indication:Nonsmoker Start:27-Mar-2020 Instruction Type:Patient Education Patient Instructions Indication:Nonsmoker Start:27-Mar-2020 Instruction Type:Provider Instructions for Treatment How to access health informa tion online Indication:BMI 40.0-44.9, adult Start:21-Feb-2020 Instruction Type:Patient Education How to access health informa tion online - Detail Indication:BMI 40.0-44.9, adult Start:21-Feb-2020 Instruction Type:Patient Education Patient Instructions Indication:Mixed hyperlipidemia Start:21-Feb-2020 Instruction Type:Provider Instructions for Treatment How to access health informa tion online Indication:Nonsmoker Start:09-Jan-2020 Instruction Type:Patient Education How to access health informa tion online - Detail Indication:Nonsmoker Start:09-Jan-2020 Instruction Type:Patient Education Patient Instructions Indication:BMI 39.0-39.9,adult Start:09-Jan-2020 Instruction Type:Provider Instructions for Treatment How to access health informa tion online Indication:Nonsmoker Start:02-Jan-2020 Instruction Type:Patient Education How to access health informa tion online - Detail Indication:Nonsmoker Start:02-Jan-2020 Instruction Type:Patient Education Patient Instructions Indication:Mixed hyperlipidemia Start:02-Jan-2020 Instruction Type:Provider Instructions for Treatment How to access health informa tion online Indication:Uncontrolled type II diabetes mellitus Start:27-Dec-2019 Instruction Type:Patient Education How to access health informa tion online - Detail Indication:Uncontrolled type II diabetes mellitus Start:27-Dec-2019 Instruction Type:Patient Education Patient Instructions Indication:Uncontrolled type II diabetes mellitus Start:27-Dec-2019 Instruction Type:Provider Instructions for Treatment [facility]; [facility] Work Phone: Instructions* Name Dates Details Patient Instructions Indication:BMI 40.0-44.9, adult Start:11-Mar-2021 Instruction Type:Provider Instructions for Treatment How to Access Health Informa tion Online using Patient Portal and 3rd Libertarian Apps Indication:Nonsmoker Start:11-Mar-2021 Instruction Type:Patient Education Patient Instructions Indication:Nonsmoker Start:27-Feb-2021 Instruction Type:Provider Instructions for Treatment How to Access Health Informa tion Online using Patient Portal and 3rd Libertarian Apps Indication:Nonsmoker Start:27-Feb-2021 Instruction Type:Patient Education Patient Instructions Indication:BMI 40.0-44.9, adult Start:28-Nov-2020 Instruction Type:Provider Instructions for Treatment How to Access Health Informa tion Online using Patient Portal and 3rd Libertarian Apps Indication:BMI 40.0-44.9, adult Start:28-Nov-2020 Instruction Type:Patient Education Patient Instructions Indication:Nonsmoker Start:06-Nov-2020 Instruction Type:Provider Instructions for Treatment How to Access Health Informa tion Online using Patient Portal and 3rd Libertarian Apps Indication:Nonsmoker Start:06-Nov-2020 Instruction Type:Patient Education How to access health informa tion online Indication:Nonsmoker Start:16-Oct-2020 Instruction Type:Patient Education How to access health informa tion online - Detail Indication:Nonsmoker Start:16-Oct-2020 Instruction Type:Patient Education Patient Instructions Indication:Nonsmoker Start:16-Oct-2020 Instruction Type:Provider Instructions for Treatment How to access health informa tion online Indication:Uncontrolled type II diabetes mellitus Start:16-Jul-2020 Instruction Type:Patient Education How to access health informa tion online - Detail Indication:Uncontrolled type II diabetes mellitus Start:16-Jul-2020 Instruction Type:Patient Education Patient Instructions Indication:Vitamin D deficiency Start:16-Jul-2020 Instruction Type:Provider Instructions for Treatment How to access health informa tion online Indication:Nonsmoker Start:13-Apr-2020 Instruction Type:Patient Education How to access health informa tion online - Detail Indication:Nonsmoker Start:13-Apr-2020 Instruction Type:Patient Education Patient Instructions Indication:Uncontrolled type II diabetes mellitus Start:13-Apr-2020 Instruction Type:Provider Instructions for Treatment How to access health informa tion online Indication:Nonsmoker Start:27-Mar-2020 Instruction Type:Patient Education How to access health informa tion online - Detail Indication:Nonsmoker Start:27-Mar-2020 Instruction Type:Patient Education Patient Instructions Indication:Nonsmoker Start:27-Mar-2020 Instruction Type:Provider Instructions for Treatment How to access health informa tion online Indication:BMI 40.0-44.9, adult Start:21-Feb-2020 Instruction Type:Patient Education How to access health informa tion online - Detail Indication:BMI 40.0-44.9, adult Start:21-Feb-2020 Instruction Type:Patient Education Patient Instructions Indication:Mixed hyperlipidemia Start:21-Feb-2020 Instruction Type:Provider Instructions for Treatment How to access health informa tion online Indication:Nonsmoker Start:09-Jan-2020 Instruction Type:Patient Education How to access health informa tion online - Detail Indication:Nonsmoker Start:09-Jan-2020 Instruction Type:Patient Education Patient Instructions Indication:BMI 39.0-39.9,adult Start:09-Jan-2020 Instruction Type:Provider Instructions for Treatment How to access health informa tion online Indication:Nonsmoker Start:02-Jan-2020 Instruction Type:Patient Education How to access health informa tion online - Detail Indication:Nonsmoker Start:02-Jan-2020 Instruction Type:Patient Education Patient Instructions Indication:Mixed hyperlipidemia Start:02-Jan-2020 Instruction Type:Provider Instructions for Treatment How to access health informa tion online Indication:Uncontrolled type II diabetes mellitus Start:27-Dec-2019 Instruction Type:Patient Education How to access health informa tion online - Detail Indication:Uncontrolled type II diabetes mellitus Start:27-Dec-2019 Instruction Type:Patient Education Patient Instructions Indication:Uncontrolled type II diabetes mellitus Start:27-Dec-2019 Instruction Type:Provider Instructions for Treatment [facility]; [facility] Work Phone: Instructions* Name Dates Details Patient Instructions Indication:BMI 40.0-44.9, adult Start:11-Mar-2021 Instruction Type:Provider Instructions for Treatment How to Access Health Informa tion Online using Patient Portal and 3rd Libertarian Apps Indication:Nonsmoker Start:11-Mar-2021 Instruction Type:Patient Education Patient Instructions Indication:Nonsmoker Start:27-Feb-2021 Instruction Type:Provider Instructions for Treatment How to Access Health Informa tion Online using Patient Portal and 3rd Libertarian Apps Indication:Nonsmoker Start:27-Feb-2021 Instruction Type:Patient Education Patient Instructions Indication:BMI 40.0-44.9, adult Start:28-Nov-2020 Instruction Type:Provider Instructions for Treatment How to Access Health Informa tion Online using Patient Portal and [employer] Libertarian Apps Indication:BMI 40.0-44.9, adult Start:28-Nov-2020 Instruction Type:Patient Education Patient Instructions Indication:Nonsmoker Start:06-Nov-2020 Instruction Type:Provider Instructions for Treatment How to Access Health Informa tion Online using Patient Portal and [employer] Libertarian Apps Indication:Nonsmoker Start:06-Nov-2020 Instruction Type:Patient Education How to access health informa tion online Indication:Nonsmoker Start:16-Oct-2020 Instruction Type:Patient Education How to access health informa tion online - Detail Indication:Nonsmoker Start:16-Oct-2020 Instruction Type:Patient Education Patient Instructions Indication:Nonsmoker Start:16-Oct-2020 Instruction Type:Provider Instructions for Treatment How to access health informa tion online Indication:Uncontrolled type II diabetes mellitus Start:16-Jul-2020 Instruction Type:Patient Education How to access health informa tion online - Detail Indication:Uncontrolled type II diabetes mellitus Start:16-Jul-2020 Instruction Type:Patient Education Patient Instructions Indication:Vitamin D deficiency Start:16-Jul-2020 Instruction Type:Provider Instructions for Treatment How to access health informa tion online Indication:Nonsmoker Start:13-Apr-2020 Instruction Type:Patient Education How to access health informa tion online - Detail Indication:Nonsmoker Start:13-Apr-2020 Instruction Type:Patient Education Patient Instructions Indication:Uncontrolled type II diabetes mellitus Start:13-Apr-2020 Instruction Type:Provider Instructions for Treatment How to access health informa tion online Indication:Nonsmoker Start:27-Mar-2020 Instruction Type:Patient Education How to access health informa tion online - Detail Indication:Nonsmoker Start:27-Mar-2020 Instruction Type:Patient Education Patient Instructions Indication:Nonsmoker Start:27-Mar-2020 Instruction Type:Provider Instructions for Treatment How to access health informa tion online Indication:BMI 40.0-44.9, adult Start:21-Feb-2020 Instruction Type:Patient Education How to access health informa tion online - Detail Indication:BMI 40.0-44.9, adult Start:21-Feb-2020 Instruction Type:Patient Education Patient Instructions Indication:Mixed hyperlipidemia Start:21-Feb-2020 Instruction Type:Provider Instructions for Treatment How to access health informa tion online Indication:Nonsmoker Start:09-Jan-2020 Instruction Type:Patient Education How to access health informa tion online - Detail Indication:Nonsmoker Start:09-Jan-2020 Instruction Type:Patient Education Patient Instructions Indication:BMI 39.0-39.9,adult Start:09-Jan-2020 Instruction Type:Provider Instructions for Treatment How to access health informa tion online Indication:Nonsmoker Start:02-Jan-2020 Instruction Type:Patient Education How to access health informa tion online - Detail Indication:Nonsmoker Start:02-Jan-2020 Instruction Type:Patient Education Patient Instructions Indication:Mixed hyperlipidemia Start:02-Jan-2020 Instruction Type:Provider Instructions for Treatment How to access health informa tion online Indication:Uncontrolled type II diabetes mellitus Start:27-Dec-2019 Instruction Type:Patient Education How to access health informa tion online - Detail Indication:Uncontrolled type II diabetes mellitus Start:27-Dec-2019 Instruction Type:Patient Education Patient Instructions Indication:Uncontrolled type II diabetes mellitus Start:27-Dec-2019 Instruction Type:Provider Instructions for Treatment [facility]; [facility] Work Phone: Instructions* Name Dates Details Patient Instructions Indication:BMI 40.0-44.9, adult Start:11-Mar-2021 Instruction Type:Provider Instructions for Treatment How to Access Health Informa tion Online using Patient Portal and [employer] Indication:Nonsmoker Start:11-Mar-2021 Instruction Type:Patient Education Patient Instructions Indication:Nonsmoker Start:27-Feb-2021 Instruction Type:Provider Instructions for Treatment How to Access Health Informa tion Online using Patient Portal and [employer] Indication:Nonsmoker Start:27-Feb-2021 Instruction Type:Patient Education Patient Instructions Indication:BMI 40.0-44.9, adult Start:28-Nov-2020 Instruction Type:Provider Instructions for Treatment How to Access Health Informa tion Online using Patient Portal and [employer] Indication:BMI 40.0-44.9, adult Start:28-Nov-2020 Instruction Type:Patient Education Patient Instructions Indication:Nonsmoker Start:06-Nov-2020 Instruction Type:Provider Instructions for Treatment How to Access Health Informa tion Online using Patient Portal and [employer] Indication:Nonsmoker Start:06-Nov-2020 Instruction Type:Patient Education How to access health informa tion online Indication:Nonsmoker Start:16-Oct-2020 Instruction Type:Patient Education How to access health informa tion online - Detail Indication:Nonsmoker Start:16-Oct-2020 Instruction Type:Patient Education Patient Instructions Indication:Nonsmoker Start:16-Oct-2020 Instruction Type:Provider Instructions for Treatment How to access health informa tion online Indication:Uncontrolled type II diabetes mellitus Start:16-Jul-2020 Instruction Type:Patient Education How to access health informa tion online - Detail Indication:Uncontrolled type II diabetes mellitus Start:16-Jul-2020 Instruction Type:Patient Education Patient Instructions Indication:Vitamin D deficiency Start:16-Jul-2020 Instruction Type:Provider Instructions for Treatment How to access health informa tion online Indication:Nonsmoker Start:13-Apr-2020 Instruction Type:Patient Education How to access health informa tion online - Detail Indication:Nonsmoker Start:13-Apr-2020 Instruction Type:Patient Education Patient Instructions Indication:Uncontrolled type II diabetes mellitus Start:13-Apr-2020 Instruction Type:Provider Instructions for Treatment How to access health informa tion online Indication:Nonsmoker Start:27-Mar-2020 Instruction Type:Patient Education How to access health informa tion online - Detail Indication:Nonsmoker Start:27-Mar-2020 Instruction Type:Patient Education Patient Instructions Indication:Nonsmoker Start:27-Mar-2020 Instruction Type:Provider Instructions for Treatment How to access health informa tion online Indication:BMI 40.0-44.9, adult Start:21-Feb-2020 Instruction Type:Patient Education How to access health informa tion online - Detail Indication:BMI 40.0-44.9, adult Start:21-Feb-2020 Instruction Type:Patient Education Patient Instructions Indication:Mixed hyperlipidemia Start:21-Feb-2020 Instruction Type:Provider Instructions for Treatment How to access health informa tion online Indication:Nonsmoker Start:09-Jan-2020 Instruction Type:Patient Education How to access health informa tion online - Detail Indication:Nonsmoker Start:09-Jan-2020 Instruction Type:Patient Education Patient Instructions Indication:BMI 39.0-39.9,adult Start:09-Jan-2020 Instruction Type:Provider Instructions for Treatment How to access health informa tion online Indication:Nonsmoker Start:02-Jan-2020 Instruction Type:Patient Education How to access health informa tion online - Detail Indication:Nonsmoker Start:02-Jan-2020 Instruction Type:Patient Education Patient Instructions Indication:Mixed hyperlipidemia Start:02-Jan-2020 Instruction Type:Provider Instructions for Treatment How to access health informa tion online Indication:Uncontrolled type II diabetes mellitus Start:27-Dec-2019 Instruction Type:Patient Education How to access health informa tion online - Detail Indication:Uncontrolled type II diabetes mellitus Start:27-Dec-2019 Instruction Type:Patient Education Patient Instructions Indication:Uncontrolled type II diabetes mellitus Start:27-Dec-2019 Instruction Type:Provider Instructions for Treatment [facility]; [facility] Work Phone: Instructions* Name Dates Details Patient Instructions Indication:BMI 40.0-44.9, adult Start:07-Oct-2021 Instruction Type:Provider Instructions for Treatment How to Access Health Informa tion Online using Patient Portal and [employer] Indication:BMI 40.0-44.9, adult Start:07-Oct-2021 Instruction Type:Patient Education Patient Instructions Indication:BMI 40.0-44.9, adult Start:27-Sep-2021 Instruction Type:Provider Instructions for Treatment How to Access Health Informa tion Online using Patient Portal and [employer] Indication:BMI 40.0-44.9, adult Start:27-Sep-2021 Instruction Type:Patient Education Patient Instructions Indication:Uncontrolled type II diabetes mellitus Start:13-Sep-2021 Instruction Type:Provider Instructions for Treatment How to Access Health Informa tion Online using Patient Portal and [employer] Apps Indication:Uncontrolled type II diabetes mellitus Start:13-Sep-2021 Instruction Type:Patient Education Patient Instructions Indication:BMI 40.0-44.9, adult Start:12-Jul-2021 Instruction Type:Provider Instructions for Treatment How to Access Health Informa tion Online using Patient Portal and [employer] Indication:BMI 40.0-44.9, adult Start:12-Jul-2021 Instruction Type:Patient Education Patient Instructions Indication:Nonsmoker Start:10-Jun-2021 Instruction Type:Provider Instructions for Treatment How to Access Health Informa tion Online using Patient Portal and [employer] Indication:Uncontrolled type II diabetes mellitus Start:10-Jun-2021 Instruction Type:Patient Education Patient Instructions Indication:BMI 40.0-44.9, adult Start:11-Mar-2021 Instruction Type:Provider Instructions for Treatment How to Access Health Informa tion Online using Patient Portal and [employer] Indication:Nonsmoker Start:11-Mar-2021 Instruction Type:Patient Education Patient Instructions Indication:Nonsmoker Start:27-Feb-2021 Instruction Type:Provider Instructions for Treatment How to Access Health Informa tion Online using Patient Portal and [employer] Indication:Nonsmoker Start:27-Feb-2021 Instruction Type:Patient Education Patient Instructions Indication:BMI 40.0-44.9, adult Start:28-Nov-2020 Instruction Type:Provider Instructions for Treatment How to Access Health Informa tion Online using Patient Portal and [employer] Indication:BMI 40.0-44.9, adult Start:28-Nov-2020 Instruction Type:Patient Education Patient Instructions Indication:Nonsmoker Start:06-Nov-2020 Instruction Type:Provider Instructions for Treatment How to Access Health Informa tion Online using Patient Portal and [employer] Indication:Nonsmoker Start:06-Nov-2020 Instruction Type:Patient Education How to access health informa tion online Indication:Nonsmoker Start:16-Oct-2020 Instruction Type:Patient Education How to access health informa tion online - Detail Indication:Nonsmoker Start:16-Oct-2020 Instruction Type:Patient Education Patient Instructions Indication:Nonsmoker Start:16-Oct-2020 Instruction Type:Provider Instructions for Treatment How to access health informa tion online Indication:Uncontrolled type II diabetes mellitus Start:16-Jul-2020 Instruction Type:Patient Education How to access health informa tion online - Detail Indication:Uncontrolled type II diabetes mellitus Start:16-Jul-2020 Instruction Type:Patient Education Patient Instructions Indication:Vitamin D deficiency Start:16-Jul-2020 Instruction Type:Provider Instructions for Treatment How to access health informa tion online Indication:Nonsmoker Start:13-Apr-2020 Instruction Type:Patient Education How to access health informa tion online - Detail Indication:Nonsmoker Start:13-Apr-2020 Instruction Type:Patient Education Patient Instructions Indication:Uncontrolled type II diabetes mellitus Start:13-Apr-2020 Instruction Type:Provider Instructions for Treatment How to access health informa tion online Indication:Nonsmoker Start:27-Mar-2020 Instruction Type:Patient Education How to access health informa tion online - Detail Indication:Nonsmoker Start:27-Mar-2020 Instruction Type:Patient Education Patient Instructions Indication:Nonsmoker Start:27-Mar-2020 Instruction Type:Provider Instructions for Treatment How to access health informa tion online Indication:BMI 40.0-44.9, adult Start:21-Feb-2020 Instruction Type:Patient Education How to access health informa tion online - Detail Indication:BMI 40.0-44.9, adult Start:21-Feb-2020 Instruction Type:Patient Education Patient Instructions Indication:Mixed hyperlipidemia Start:21-Feb-2020 Instruction Type:Provider Instructions for Treatment How to access health informa tion online Indication:Nonsmoker Start:09-Jan-2020 Instruction Type:Patient Education How to access health informa tion online - Detail Indication:Nonsmoker Start:09-Jan-2020 Instruction Type:Patient Education Patient Instructions Indication:BMI 39.0-39.9,adult Start:09-Jan-2020 Instruction Type:Provider Instructions for Treatment How to access health informa tion online Indication:Nonsmoker Start:02-Jan-2020 Instruction Type:Patient Education How to access health informa tion online - Detail Indication:Nonsmoker Start:02-Jan-2020 Instruction Type:Patient Education Patient Instructions Indication:Mixed hyperlipidemia Start:02-Jan-2020 Instruction Type:Provider Instructions for Treatment How to access health informa tion online Indication:Uncontrolled type II diabetes mellitus Start:27-Dec-2019 Instruction Type:Patient Education How to access health informa tion online - Detail Indication:Uncontrolled type II diabetes mellitus Start:27-Dec-2019 Instruction Type:Patient Education Patient Instructions Indication:Uncontrolled type II diabetes mellitus Start:27-Dec-2019 Instruction Type:Provider Instructions for Treatment [facility]; [facility] Work Phone: Instructions* Name Dates Details Patient Instructions Indication:BMI 40.0-44.9, adult Start:07-Oct-2021 Instruction Type:Provider Instructions for Treatment How to Access Health Informa tion Online using Patient Portal and [employer] Indication:BMI 40.0-44.9, adult Start:07-Oct-2021 Instruction Type:Patient Education Patient Instructions Indication:BMI 40.0-44.9, adult Start:27-Sep-2021 Instruction Type:Provider Instructions for Treatment How to Access Health Informa tion Online using Patient Portal and [employer] Indication:BMI 40.0-44.9, adult Start:27-Sep-2021 Instruction Type:Patient Education Patient Instructions Indication:Uncontrolled type II diabetes mellitus Start:13-Sep-2021 Instruction Type:Provider Instructions for Treatment How to Access Health Informa tion Online using Patient Portal and [employer] Indication:Uncontrolled type II diabetes mellitus Start:13-Sep-2021 Instruction Type:Patient Education Patient Instructions Indication:BMI 40.0-44.9, adult Start:12-Jul-2021 Instruction Type:Provider Instructions for Treatment How to Access Health Informa tion Online using Patient Portal and [employer] Indication:BMI 40.0-44.9, adult Start:12-Jul-2021 Instruction Type:Patient Education Patient Instructions Indication:Nonsmoker Start:10-Jun-2021 Instruction Type:Provider Instructions for Treatment How to Access Health Informa tion Online using Patient Portal and [employer] Indication:Uncontrolled type II diabetes mellitus Start:10-Jun-2021 Instruction Type:Patient Education Patient Instructions Indication:BMI 40.0-44.9, adult Start:11-Mar-2021 Instruction Type:Provider Instructions for Treatment How to Access Health Informa tion Online using Patient Portal and [employer] Indication:Nonsmoker Start:11-Mar-2021 Instruction Type:Patient Education Patient Instructions Indication:Nonsmoker Start:27-Feb-2021 Instruction Type:Provider Instructions for Treatment How to Access Health Informa tion Online using Patient Portal and [employer] Indication:Nonsmoker Start:27-Feb-2021 Instruction Type:Patient Education Patient Instructions Indication:BMI 40.0-44.9, adult Start:28-Nov-2020 Instruction Type:Provider Instructions for Treatment How to Access Health Informa tion Online using Patient Portal and [employer] Indication:BMI 40.0-44.9, adult Start:28-Nov-2020 Instruction Type:Patient Education Patient Instructions Indication:Nonsmoker Start:06-Nov-2020 Instruction Type:Provider Instructions for Treatment How to Access Health Informa tion Online using Patient Portal and [employer] Indication:Nonsmoker Start:06-Nov-2020 Instruction Type:Patient Education How to access health informa tion online Indication:Nonsmoker Start:16-Oct-2020 Instruction Type:Patient Education How to access health informa tion online - Detail Indication:Nonsmoker Start:16-Oct-2020 Instruction Type:Patient Education Patient Instructions Indication:Nonsmoker Start:16-Oct-2020 Instruction Type:Provider Instructions for Treatment How to access health informa tion online Indication:Uncontrolled type II diabetes mellitus Start:16-Jul-2020 Instruction Type:Patient Education How to access health informa tion online - Detail Indication:Uncontrolled type II diabetes mellitus Start:16-Jul-2020 Instruction Type:Patient Education Patient Instructions Indication:Vitamin D deficiency Start:16-Jul-2020 Instruction Type:Provider Instructions for Treatment How to access health informa tion online Indication:Nonsmoker Start:13-Apr-2020 Instruction Type:Patient Education How to access health informa tion online - Detail Indication:Nonsmoker Start:13-Apr-2020 Instruction Type:Patient Education Patient Instructions Indication:Uncontrolled type II diabetes mellitus Start:13-Apr-2020 Instruction Type:Provider Instructions for Treatment How to access health informa tion online Indication:Nonsmoker Start:27-Mar-2020 Instruction Type:Patient Education How to access health informa tion online - Detail Indication:Nonsmoker Start:27-Mar-2020 Instruction Type:Patient Education Patient Instructions Indication:Nonsmoker Start:27-Mar-2020 Instruction Type:Provider Instructions for Treatment How to access health informa tion online Indication:BMI 40.0-44.9, adult Start:21-Feb-2020 Instruction Type:Patient Education How to access health informa tion online - Detail Indication:BMI 40.0-44.9, adult Start:21-Feb-2020 Instruction Type:Patient Education Patient Instructions Indication:Mixed hyperlipidemia Start:21-Feb-2020 Instruction Type:Provider Instructions for Treatment How to access health informa tion online Indication:Nonsmoker Start:09-Jan-2020 Instruction Type:Patient Education How to access health informa tion online - Detail Indication:Nonsmoker Start:09-Jan-2020 Instruction Type:Patient Education Patient Instructions Indication:BMI 39.0-39.9,adult Start:09-Jan-2020 Instruction Type:Provider Instructions for Treatment How to access health informa tion online Indication:Nonsmoker Start:02-Jan-2020 Instruction Type:Patient Education How to access health informa tion online - Detail Indication:Nonsmoker Start:02-Jan-2020 Instruction Type:Patient Education Patient Instructions Indication:Mixed hyperlipidemia Start:02-Jan-2020 Instruction Type:Provider Instructions for Treatment How to access health informa tion online Indication:Uncontrolled type II diabetes mellitus Start:27-Dec-2019 Instruction Type:Patient Education How to access health informa tion online - Detail Indication:Uncontrolled type II diabetes mellitus Start:27-Dec-2019 Instruction Type:Patient Education Patient Instructions Indication:Uncontrolled type II diabetes mellitus Start:27-Dec-2019 Instruction Type:Provider Instructions for Treatment [facility]; [facility] Work Phone: Instructions* Name Dates Details Patient Instructions Indication:BMI 40.0-44.9, adult Start:07-Oct-2021 Instruction Type:Provider Instructions for Treatment How to Access Health Informa tion Online using Patient Portal and [employer] Indication:BMI 40.0-44.9, adult Start:07-Oct-2021 Instruction Type:Patient Education Patient Instructions Indication:BMI 40.0-44.9, adult Start:27-Sep-2021 Instruction Type:Provider Instructions for Treatment How to Access Health Informa tion Online using Patient Portal and [employer] Indication:BMI 40.0-44.9, adult Start:27-Sep-2021 Instruction Type:Patient Education Patient Instructions Indication:Uncontrolled type II diabetes mellitus Start:13-Sep-2021 Instruction Type:Provider Instructions for Treatment How to Access Health Informa tion Online using Patient Portal and [employer] Indication:Uncontrolled type II diabetes mellitus Start:13-Sep-2021 Instruction Type:Patient Education Patient Instructions Indication:BMI 40.0-44.9, adult Start:12-Jul-2021 Instruction Type:Provider Instructions for Treatment How to Access Health Informa tion Online using Patient Portal and [employer] Indication:BMI 40.0-44.9, adult Start:12-Jul-2021 Instruction Type:Patient Education Patient Instructions Indication:Nonsmoker Start:10-Jun-2021 Instruction Type:Provider Instructions for Treatment How to Access Health Informa tion Online using Patient Portal and [employer] Indication:Uncontrolled type II diabetes mellitus Start:10-Jun-2021 Instruction Type:Patient Education Patient Instructions Indication:BMI 40.0-44.9, adult Start:11-Mar-2021 Instruction Type:Provider Instructions for Treatment How to Access Health Informa tion Online using Patient Portal and [employer] Indication:Nonsmoker Start:11-Mar-2021 Instruction Type:Patient Education Patient Instructions Indication:Nonsmoker Start:27-Feb-2021 Instruction Type:Provider Instructions for Treatment How to Access Health Informa tion Online using Patient Portal and [employer] Apps Indication:Nonsmoker Start:27-Feb-2021 Instruction Type:Patient Education Patient Instructions Indication:BMI 40.0-44.9, adult Start:28-Nov-2020 Instruction Type:Provider Instructions for Treatment How to Access Health Informa tion Online using Patient Portal and [employer] Indication:BMI 40.0-44.9, adult Start:28-Nov-2020 Instruction Type:Patient Education Patient Instructions Indication:Nonsmoker Start:06-Nov-2020 Instruction Type:Provider Instructions for Treatment How to Access Health Informa tion Online using Patient Portal and [employer] Apps Indication:Nonsmoker Start:06-Nov-2020 Instruction Type:Patient Education How to access health informa tion online Indication:Nonsmoker Start:16-Oct-2020 Instruction Type:Patient Education How to access health informa tion online - Detail Indication:Nonsmoker Start:16-Oct-2020 Instruction Type:Patient Education Patient Instructions Indication:Nonsmoker Start:16-Oct-2020 Instruction Type:Provider Instructions for Treatment How to access health informa tion online Indication:Uncontrolled type II diabetes mellitus Start:16-Jul-2020 Instruction Type:Patient Education How to access health informa tion online - Detail Indication:Uncontrolled type II diabetes mellitus Start:16-Jul-2020 Instruction Type:Patient Education Patient Instructions Indication:Vitamin D deficiency Start:16-Jul-2020 Instruction Type:Provider Instructions for Treatment How to access health informa tion online Indication:Nonsmoker Start:13-Apr-2020 Instruction Type:Patient Education How to access health informa tion online - Detail Indication:Nonsmoker Start:13-Apr-2020 Instruction Type:Patient Education Patient Instructions Indication:Uncontrolled type II diabetes mellitus Start:13-Apr-2020 Instruction Type:Provider Instructions for Treatment How to access health informa tion online Indication:Nonsmoker Start:27-Mar-2020 Instruction Type:Patient Education How to access health informa tion online - Detail Indication:Nonsmoker Start:27-Mar-2020 Instruction Type:Patient Education Patient Instructions Indication:Nonsmoker Start:27-Mar-2020 Instruction Type:Provider Instructions for Treatment How to access health informa tion online Indication:BMI 40.0-44.9, adult Start:21-Feb-2020 Instruction Type:Patient Education How to access health informa tion online - Detail Indication:BMI 40.0-44.9, adult Start:21-Feb-2020 Instruction Type:Patient Education Patient Instructions Indication:Mixed hyperlipidemia Start:21-Feb-2020 Instruction Type:Provider Instructions for Treatment How to access health informa tion online Indication:Nonsmoker Start:09-Jan-2020 Instruction Type:Patient Education How to access health informa tion online - Detail Indication:Nonsmoker Start:09-Jan-2020 Instruction Type:Patient Education Patient Instructions Indication:BMI 39.0-39.9,adult Start:09-Jan-2020 Instruction Type:Provider Instructions for Treatment How to access health informa tion online Indication:Nonsmoker Start:02-Jan-2020 Instruction Type:Patient Education How to access health informa tion online - Detail Indication:Nonsmoker Start:02-Jan-2020 Instruction Type:Patient Education Patient Instructions Indication:Mixed hyperlipidemia Start:02-Jan-2020 Instruction Type:Provider Instructions for Treatment How to access health informa tion online Indication:Uncontrolled type II diabetes mellitus Start:27-Dec-2019 Instruction Type:Patient Education How to access health informa tion online - Detail Indication:Uncontrolled type II diabetes mellitus Start:27-Dec-2019 Instruction Type:Patient Education Patient Instructions Indication:Uncontrolled type II diabetes mellitus Start:27-Dec-2019 Instruction Type:Provider Instructions for Treatment [facility]; [facility] Work Phone: Instructions* Name Dates Details Patient Instructions Indication:BMI 40.0-44.9, adult Start:07-Oct-2021 Instruction Type:Provider Instructions for Treatment How to Access Health Informa tion Online using Patient Portal and [employer] Indication:BMI 40.0-44.9, adult Start:07-Oct-2021 Instruction Type:Patient Education Patient Instructions Indication:BMI 40.0-44.9, adult Start:27-Sep-2021 Instruction Type:Provider Instructions for Treatment How to Access Health Informa tion Online using Patient Portal and [employer] Indication:BMI 40.0-44.9, adult Start:27-Sep-2021 Instruction Type:Patient Education Patient Instructions Indication:Uncontrolled type II diabetes mellitus Start:13-Sep-2021 Instruction Type:Provider Instructions for Treatment How to Access Health Informa tion Online using Patient Portal and [employer] Indication:Uncontrolled type II diabetes mellitus Start:13-Sep-2021 Instruction Type:Patient Education Patient Instructions Indication:BMI 40.0-44.9, adult Start:12-Jul-2021 Instruction Type:Provider Instructions for Treatment How to Access Health Informa tion Online using Patient Portal and [employer] Indication:BMI 40.0-44.9, adult Start:12-Jul-2021 Instruction Type:Patient Education Patient Instructions Indication:Nonsmoker Start:10-Jun-2021 Instruction Type:Provider Instructions for Treatment How to Access Health Informa tion Online using Patient Portal and [employer] Indication:Uncontrolled type II diabetes mellitus Start:10-Jun-2021 Instruction Type:Patient Education Patient Instructions Indication:BMI 40.0-44.9, adult Start:11-Mar-2021 Instruction Type:Provider Instructions for Treatment How to Access Health Informa tion Online using Patient Portal and [employer] Indication:Nonsmoker Start:11-Mar-2021 Instruction Type:Patient Education Patient Instructions Indication:Nonsmoker Start:27-Feb-2021 Instruction Type:Provider Instructions for Treatment How to Access Health Informa tion Online using Patient Portal and [employer] Indication:Nonsmoker Start:27-Feb-2021 Instruction Type:Patient Education Patient Instructions Indication:BMI 40.0-44.9, adult Start:28-Nov-2020 Instruction Type:Provider Instructions for Treatment How to Access Health Informa tion Online using Patient Portal and [employer] Indication:BMI 40.0-44.9, adult Start:28-Nov-2020 Instruction Type:Patient Education Patient Instructions Indication:Nonsmoker Start:06-Nov-2020 Instruction Type:Provider Instructions for Treatment How to Access Health Informa tion Online using Patient Portal and [employer] Indication:Nonsmoker Start:06-Nov-2020 Instruction Type:Patient Education How to access health informa tion online Indication:Nonsmoker Start:16-Oct-2020 Instruction Type:Patient Education How to access health informa tion online - Detail Indication:Nonsmoker Start:16-Oct-2020 Instruction Type:Patient Education Patient Instructions Indication:Nonsmoker Start:16-Oct-2020 Instruction Type:Provider Instructions for Treatment How to access health informa tion online Indication:Uncontrolled type II diabetes mellitus Start:16-Jul-2020 Instruction Type:Patient Education How to access health informa tion online - Detail Indication:Uncontrolled type II diabetes mellitus Start:16-Jul-2020 Instruction Type:Patient Education Patient Instructions Indication:Vitamin D deficiency Start:16-Jul-2020 Instruction Type:Provider Instructions for Treatment How to access health informa tion online Indication:Nonsmoker Start:13-Apr-2020 Instruction Type:Patient Education How to access health informa tion online - Detail Indication:Nonsmoker Start:13-Apr-2020 Instruction Type:Patient Education Patient Instructions Indication:Uncontrolled type II diabetes mellitus Start:13-Apr-2020 Instruction Type:Provider Instructions for Treatment How to access health informa tion online Indication:Nonsmoker Start:27-Mar-2020 Instruction Type:Patient Education How to access health informa tion online - Detail Indication:Nonsmoker Start:27-Mar-2020 Instruction Type:Patient Education Patient Instructions Indication:Nonsmoker Start:27-Mar-2020 Instruction Type:Provider Instructions for Treatment How to access health informa tion online Indication:BMI 40.0-44.9, adult Start:21-Feb-2020 Instruction Type:Patient Education How to access health informa tion online - Detail Indication:BMI 40.0-44.9, adult Start:21-Feb-2020 Instruction Type:Patient Education Patient Instructions Indication:Mixed hyperlipidemia Start:21-Feb-2020 Instruction Type:Provider Instructions for Treatment How to access health informa tion online Indication:Nonsmoker Start:09-Jan-2020 Instruction Type:Patient Education How to access health informa tion online - Detail Indication:Nonsmoker Start:09-Jan-2020 Instruction Type:Patient Education Patient Instructions Indication:BMI 39.0-39.9,adult Start:09-Jan-2020 Instruction Type:Provider Instructions for Treatment How to access health informa tion online Indication:Nonsmoker Start:02-Jan-2020 Instruction Type:Patient Education How to access health informa tion online - Detail Indication:Nonsmoker Start:02-Jan-2020 Instruction Type:Patient Education Patient Instructions Indication:Mixed hyperlipidemia Start:02-Jan-2020 Instruction Type:Provider Instructions for Treatment How to access health informa tion online Indication:Uncontrolled type II diabetes mellitus Start:27-Dec-2019 Instruction Type:Patient Education How to access health informa tion online - Detail Indication:Uncontrolled type II diabetes mellitus Start:27-Dec-2019 Instruction Type:Patient Education Patient Instructions Indication:Uncontrolled type II diabetes mellitus Start:27-Dec-2019 Instruction Type:Provider Instructions for Treatment [facility]; [facility] Work Phone: Instructions* Name Dates Details Patient Instructions Indication:BMI 40.0-44.9, adult Start:07-Oct-2021 Instruction Type:Provider Instructions for Treatment How to Access Health Informa tion Online using Patient Portal and [employer] Indication:BMI 40.0-44.9, adult Start:07-Oct-2021 Instruction Type:Patient Education Patient Instructions Indication:BMI 40.0-44.9, adult Start:27-Sep-2021 Instruction Type:Provider Instructions for Treatment How to Access Health Informa tion Online using Patient Portal and [employer] Indication:BMI 40.0-44.9, adult Start:27-Sep-2021 Instruction Type:Patient Education Patient Instructions Indication:Uncontrolled type II diabetes mellitus Start:13-Sep-2021 Instruction Type:Provider Instructions for Treatment How to Access Health Informa tion Online using Patient Portal and [employer] Apps Indication:Uncontrolled type II diabetes mellitus Start:13-Sep-2021 Instruction Type:Patient Education Patient Instructions Indication:BMI 40.0-44.9, adult Start:12-Jul-2021 Instruction Type:Provider Instructions for Treatment How to Access Health Informa tion Online using Patient Portal and [employer] Apps Indication:BMI 40.0-44.9, adult Start:12-Jul-2021 Instruction Type:Patient Education Patient Instructions Indication:Nonsmoker Start:10-Jun-2021 Instruction Type:Provider Instructions for Treatment How to Access Health Informa tion Online using Patient Portal and [employer] Indication:Uncontrolled type II diabetes mellitus Start:10-Jun-2021 Instruction Type:Patient Education Patient Instructions Indication:BMI 40.0-44.9, adult Start:11-Mar-2021 Instruction Type:Provider Instructions for Treatment How to Access Health Informa tion Online using Patient Portal and [employer] Indication:Nonsmoker Start:11-Mar-2021 Instruction Type:Patient Education Patient Instructions Indication:Nonsmoker Start:27-Feb-2021 Instruction Type:Provider Instructions for Treatment How to Access Health Informa tion Online using Patient Portal and [employer] Apps Indication:Nonsmoker Start:27-Feb-2021 Instruction Type:Patient Education Patient Instructions Indication:BMI 40.0-44.9, adult Start:28-Nov-2020 Instruction Type:Provider Instructions for Treatment How to Access Health Informa tion Online using Patient Portal and [employer] Indication:BMI 40.0-44.9, adult Start:28-Nov-2020 Instruction Type:Patient Education Patient Instructions Indication:Nonsmoker Start:06-Nov-2020 Instruction Type:Provider Instructions for Treatment How to Access Health Informa tion Online using Patient Portal and [employer] Apps Indication:Nonsmoker Start:06-Nov-2020 Instruction Type:Patient Education How to access health informa tion online Indication:Nonsmoker Start:16-Oct-2020 Instruction Type:Patient Education How to access health informa tion online - Detail Indication:Nonsmoker Start:16-Oct-2020 Instruction Type:Patient Education Patient Instructions Indication:Nonsmoker Start:16-Oct-2020 Instruction Type:Provider Instructions for Treatment How to access health informa tion online Indication:Uncontrolled type II diabetes mellitus Start:16-Jul-2020 Instruction Type:Patient Education How to access health informa tion online - Detail Indication:Uncontrolled type II diabetes mellitus Start:16-Jul-2020 Instruction Type:Patient Education Patient Instructions Indication:Vitamin D deficiency Start:16-Jul-2020 Instruction Type:Provider Instructions for Treatment How to access health informa tion online Indication:Nonsmoker Start:13-Apr-2020 Instruction Type:Patient Education How to access health informa tion online - Detail Indication:Nonsmoker Start:13-Apr-2020 Instruction Type:Patient Education Patient Instructions Indication:Uncontrolled type II diabetes mellitus Start:13-Apr-2020 Instruction Type:Provider Instructions for Treatment How to access health informa tion online Indication:Nonsmoker Start:27-Mar-2020 Instruction Type:Patient Education How to access health informa tion online - Detail Indication:Nonsmoker Start:27-Mar-2020 Instruction Type:Patient Education Patient Instructions Indication:Nonsmoker Start:27-Mar-2020 Instruction Type:Provider Instructions for Treatment How to access health informa tion online Indication:BMI 40.0-44.9, adult Start:21-Feb-2020 Instruction Type:Patient Education How to access health informa tion online - Detail Indication:BMI 40.0-44.9, adult Start:21-Feb-2020 Instruction Type:Patient Education Patient Instructions Indication:Mixed hyperlipidemia Start:21-Feb-2020 Instruction Type:Provider Instructions for Treatment How to access health informa tion online Indication:Nonsmoker Start:09-Jan-2020 Instruction Type:Patient Education How to access health informa tion online - Detail Indication:Nonsmoker Start:09-Jan-2020 Instruction Type:Patient Education Patient Instructions Indication:BMI 39.0-39.9,adult Start:09-Jan-2020 Instruction Type:Provider Instructions for Treatment How to access health informa tion online Indication:Nonsmoker Start:02-Jan-2020 Instruction Type:Patient Education How to access health informa tion online - Detail Indication:Nonsmoker Start:02-Jan-2020 Instruction Type:Patient Education Patient Instructions Indication:Mixed hyperlipidemia Start:02-Jan-2020 Instruction Type:Provider Instructions for Treatment How to access health informa tion online Indication:Uncontrolled type II diabetes mellitus Start:27-Dec-2019 Instruction Type:Patient Education How to access health informa tion online - Detail Indication:Uncontrolled type II diabetes mellitus Start:27-Dec-2019 Instruction Type:Patient Education Patient Instructions Indication:Uncontrolled type II diabetes mellitus Start:27-Dec-2019 Instruction Type:Provider Instructions for Treatment [facility]; [facility] Work Phone: Instructions* Name Dates Details Patient Instructions Indication:BMI 40.0-44.9, adult Start:07-Oct-2021 Instruction Type:Provider Instructions for Treatment How to Access Health Informa tion Online using Patient Portal and [employer] Apps Indication:BMI 40.0-44.9, adult Start:07-Oct-2021 Instruction Type:Patient Education Patient Instructions Indication:BMI 40.0-44.9, adult Start:27-Sep-2021 Instruction Type:Provider Instructions for Treatment How to Access Health Informa tion Online using Patient Portal and [employer] Indication:BMI 40.0-44.9, adult Start:27-Sep-2021 Instruction Type:Patient Education Patient Instructions Indication:Uncontrolled type II diabetes mellitus Start:13-Sep-2021 Instruction Type:Provider Instructions for Treatment How to Access Health Informa tion Online using Patient Portal and [employer] Indication:Uncontrolled type II diabetes mellitus Start:13-Sep-2021 Instruction Type:Patient Education Patient Instructions Indication:BMI 40.0-44.9, adult Start:12-Jul-2021 Instruction Type:Provider Instructions for Treatment How to Access Health Informa tion Online using Patient Portal and [employer] Indication:BMI 40.0-44.9, adult Start:12-Jul-2021 Instruction Type:Patient Education Patient Instructions Indication:Nonsmoker Start:10-Jun-2021 Instruction Type:Provider Instructions for Treatment How to Access Health Informa tion Online using Patient Portal and [employer] Indication:Uncontrolled type II diabetes mellitus Start:10-Jun-2021 Instruction Type:Patient Education Patient Instructions Indication:BMI 40.0-44.9, adult Start:11-Mar-2021 Instruction Type:Provider Instructions for Treatment How to Access Health Informa tion Online using Patient Portal and [employer] Apps Indication:Nonsmoker Start:11-Mar-2021 Instruction Type:Patient Education Patient Instructions Indication:Nonsmoker Start:27-Feb-2021 Instruction Type:Provider Instructions for Treatment How to Access Health Informa tion Online using Patient Portal and [employer] Apps Indication:Nonsmoker Start:27-Feb-2021 Instruction Type:Patient Education Patient Instructions Indication:BMI 40.0-44.9, adult Start:28-Nov-2020 Instruction Type:Provider Instructions for Treatment How to Access Health Informa tion Online using Patient Portal and [employer] Apps Indication:BMI 40.0-44.9, adult Start:28-Nov-2020 Instruction Type:Patient Education Patient Instructions Indication:Nonsmoker Start:06-Nov-2020 Instruction Type:Provider Instructions for Treatment How to Access Health Informa tion Online using Patient Portal and [employer] Indication:Nonsmoker Start:06-Nov-2020 Instruction Type:Patient Education How to access health informa tion online Indication:Nonsmoker Start:16-Oct-2020 Instruction Type:Patient Education How to access health informa tion online - Detail Indication:Nonsmoker Start:16-Oct-2020 Instruction Type:Patient Education Patient Instructions Indication:Nonsmoker Start:16-Oct-2020 Instruction Type:Provider Instructions for Treatment How to access health informa tion online Indication:Uncontrolled type II diabetes mellitus Start:16-Jul-2020 Instruction Type:Patient Education How to access health informa tion online - Detail Indication:Uncontrolled type II diabetes mellitus Start:16-Jul-2020 Instruction Type:Patient Education Patient Instructions Indication:Vitamin D deficiency Start:16-Jul-2020 Instruction Type:Provider Instructions for Treatment How to access health informa tion online Indication:Nonsmoker Start:13-Apr-2020 Instruction Type:Patient Education How to access health informa tion online - Detail Indication:Nonsmoker Start:13-Apr-2020 Instruction Type:Patient Education Patient Instructions Indication:Uncontrolled type II diabetes mellitus Start:13-Apr-2020 Instruction Type:Provider Instructions for Treatment How to access health informa tion online Indication:Nonsmoker Start:27-Mar-2020 Instruction Type:Patient Education How to access health informa tion online - Detail Indication:Nonsmoker Start:27-Mar-2020 Instruction Type:Patient Education Patient Instructions Indication:Nonsmoker Start:27-Mar-2020 Instruction Type:Provider Instructions for Treatment How to access health informa tion online Indication:BMI 40.0-44.9, adult Start:21-Feb-2020 Instruction Type:Patient Education How to access health informa tion online - Detail Indication:BMI 40.0-44.9, adult Start:21-Feb-2020 Instruction Type:Patient Education Patient Instructions Indication:Mixed hyperlipidemia Start:21-Feb-2020 Instruction Type:Provider Instructions for Treatment How to access health informa tion online Indication:Nonsmoker Start:09-Jan-2020 Instruction Type:Patient Education How to access health informa tion online - Detail Indication:Nonsmoker Start:09-Jan-2020 Instruction Type:Patient Education Patient Instructions Indication:BMI 39.0-39.9,adult Start:09-Jan-2020 Instruction Type:Provider Instructions for Treatment How to access health informa tion online Indication:Nonsmoker Start:02-Jan-2020 Instruction Type:Patient Education How to access health informa tion online - Detail Indication:Nonsmoker Start:02-Jan-2020 Instruction Type:Patient Education Patient Instructions Indication:Mixed hyperlipidemia Start:02-Jan-2020 Instruction Type:Provider Instructions for Treatment How to access health informa tion online Indication:Uncontrolled type II diabetes mellitus Start:27-Dec-2019 Instruction Type:Patient Education How to access health informa tion online - Detail Indication:Uncontrolled type II diabetes mellitus Start:27-Dec-2019 Instruction Type:Patient Education Patient Instructions Indication:Uncontrolled type II diabetes mellitus Start:27-Dec-2019 Instruction Type:Provider Instructions for Treatment [facility]; [facility] Work Phone: Instructions* Name Dates Details Patient Instructions Indication:BMI 40.0-44.9, adult Start:07-Oct-2021 Instruction Type:Provider Instructions for Treatment How to Access Health Informa tion Online using Patient Portal and [employer] Indication:BMI 40.0-44.9, adult Start:07-Oct-2021 Instruction Type:Patient Education Patient Instructions Indication:BMI 40.0-44.9, adult Start:27-Sep-2021 Instruction Type:Provider Instructions for Treatment How to Access Health Informa tion Online using Patient Portal and [employer] Indication:BMI 40.0-44.9, adult Start:27-Sep-2021 Instruction Type:Patient Education Patient Instructions Indication:Uncontrolled type II diabetes mellitus Start:13-Sep-2021 Instruction Type:Provider Instructions for Treatment How to Access Health Informa tion Online using Patient Portal and [employer] Indication:Uncontrolled type II diabetes mellitus Start:13-Sep-2021 Instruction Type:Patient Education Patient Instructions Indication:BMI 40.0-44.9, adult Start:12-Jul-2021 Instruction Type:Provider Instructions for Treatment How to Access Health Informa tion Online using Patient Portal and [employer] Indication:BMI 40.0-44.9, adult Start:12-Jul-2021 Instruction Type:Patient Education Patient Instructions Indication:Nonsmoker Start:10-Jun-2021 Instruction Type:Provider Instructions for Treatment How to Access Health Informa tion Online using Patient Portal and [employer] Indication:Uncontrolled type II diabetes mellitus Start:10-Jun-2021 Instruction Type:Patient Education Patient Instructions Indication:BMI 40.0-44.9, adult Start:11-Mar-2021 Instruction Type:Provider Instructions for Treatment How to Access Health Informa tion Online using Patient Portal and [employer] Indication:Nonsmoker Start:11-Mar-2021 Instruction Type:Patient Education Patient Instructions Indication:Nonsmoker Start:27-Feb-2021 Instruction Type:Provider Instructions for Treatment How to Access Health Informa tion Online using Patient Portal and [employer] Indication:Nonsmoker Start:27-Feb-2021 Instruction Type:Patient Education Patient Instructions Indication:BMI 40.0-44.9, adult Start:28-Nov-2020 Instruction Type:Provider Instructions for Treatment How to Access Health Informa tion Online using Patient Portal and [employer] Indication:BMI 40.0-44.9, adult Start:28-Nov-2020 Instruction Type:Patient Education Patient Instructions Indication:Nonsmoker Start:06-Nov-2020 Instruction Type:Provider Instructions for Treatment How to Access Health Informa tion Online using Patient Portal and [employer] Indication:Nonsmoker Start:06-Nov-2020 Instruction Type:Patient Education How to access health informa tion online Indication:Nonsmoker Start:16-Oct-2020 Instruction Type:Patient Education How to access health informa tion online - Detail Indication:Nonsmoker Start:16-Oct-2020 Instruction Type:Patient Education Patient Instructions Indication:Nonsmoker Start:16-Oct-2020 Instruction Type:Provider Instructions for Treatment How to access health informa tion online Indication:Uncontrolled type II diabetes mellitus Start:16-Jul-2020 Instruction Type:Patient Education How to access health informa tion online - Detail Indication:Uncontrolled type II diabetes mellitus Start:16-Jul-2020 Instruction Type:Patient Education Patient Instructions Indication:Vitamin D deficiency Start:16-Jul-2020 Instruction Type:Provider Instructions for Treatment How to access health informa tion online Indication:Nonsmoker Start:13-Apr-2020 Instruction Type:Patient Education How to access health informa tion online - Detail Indication:Nonsmoker Start:13-Apr-2020 Instruction Type:Patient Education Patient Instructions Indication:Uncontrolled type II diabetes mellitus Start:13-Apr-2020 Instruction Type:Provider Instructions for Treatment How to access health informa tion online Indication:Nonsmoker Start:27-Mar-2020 Instruction Type:Patient Education How to access health informa tion online - Detail Indication:Nonsmoker Start:27-Mar-2020 Instruction Type:Patient Education Patient Instructions Indication:Nonsmoker Start:27-Mar-2020 Instruction Type:Provider Instructions for Treatment How to access health informa tion online Indication:BMI 40.0-44.9, adult Start:21-Feb-2020 Instruction Type:Patient Education How to access health informa tion online - Detail Indication:BMI 40.0-44.9, adult Start:21-Feb-2020 Instruction Type:Patient Education Patient Instructions Indication:Mixed hyperlipidemia Start:21-Feb-2020 Instruction Type:Provider Instructions for Treatment How to access health informa tion online Indication:Nonsmoker Start:09-Jan-2020 Instruction Type:Patient Education How to access health informa tion online - Detail Indication:Nonsmoker Start:09-Jan-2020 Instruction Type:Patient Education Patient Instructions Indication:BMI 39.0-39.9,adult Start:09-Jan-2020 Instruction Type:Provider Instructions for Treatment How to access health informa tion online Indication:Nonsmoker Start:02-Jan-2020 Instruction Type:Patient Education How to access health informa tion online - Detail Indication:Nonsmoker Start:02-Jan-2020 Instruction Type:Patient Education Patient Instructions Indication:Mixed hyperlipidemia Start:02-Jan-2020 Instruction Type:Provider Instructions for Treatment How to access health informa tion online Indication:Uncontrolled type II diabetes mellitus Start:27-Dec-2019 Instruction Type:Patient Education How to access health informa tion online - Detail Indication:Uncontrolled type II diabetes mellitus Start:27-Dec-2019 Instruction Type:Patient Education Patient Instructions Indication:Uncontrolled type II diabetes mellitus Start:27-Dec-2019 Instruction Type:Provider Instructions for Treatment [facility]; [facility] Work Phone: Instructions* Name Dates Details Patient Instructions Indication:BMI 40.0-44.9, adult Start:07-Oct-2021 Instruction Type:Provider Instructions for Treatment How to Access Health Informa tion Online using Patient Portal and [employer] Indication:BMI 40.0-44.9, adult Start:07-Oct-2021 Instruction Type:Patient Education Patient Instructions Indication:BMI 40.0-44.9, adult Start:27-Sep-2021 Instruction Type:Provider Instructions for Treatment How to Access Health Informa tion Online using Patient Portal and [employer] Indication:BMI 40.0-44.9, adult Start:27-Sep-2021 Instruction Type:Patient Education Patient Instructions Indication:Uncontrolled type II diabetes mellitus Start:13-Sep-2021 Instruction Type:Provider Instructions for Treatment How to Access Health Informa tion Online using Patient Portal and [employer] Indication:Uncontrolled type II diabetes mellitus Start:13-Sep-2021 Instruction Type:Patient Education Patient Instructions Indication:BMI 40.0-44.9, adult Start:12-Jul-2021 Instruction Type:Provider Instructions for Treatment How to Access Health Informa tion Online using Patient Portal and [employer] Indication:BMI 40.0-44.9, adult Start:12-Jul-2021 Instruction Type:Patient Education Patient Instructions Indication:Nonsmoker Start:10-Jun-2021 Instruction Type:Provider Instructions for Treatment How to Access Health Informa tion Online using Patient Portal and [employer] Indication:Uncontrolled type II diabetes mellitus Start:10-Jun-2021 Instruction Type:Patient Education Patient Instructions Indication:BMI 40.0-44.9, adult Start:11-Mar-2021 Instruction Type:Provider Instructions for Treatment How to Access Health Informa tion Online using Patient Portal and [employer] Indication:Nonsmoker Start:11-Mar-2021 Instruction Type:Patient Education Patient Instructions Indication:Nonsmoker Start:27-Feb-2021 Instruction Type:Provider Instructions for Treatment How to Access Health Informa tion Online using Patient Portal and [employer] Indication:Nonsmoker Start:27-Feb-2021 Instruction Type:Patient Education Patient Instructions Indication:BMI 40.0-44.9, adult Start:28-Nov-2020 Instruction Type:Provider Instructions for Treatment How to Access Health Informa tion Online using Patient Portal and [employer] Indication:BMI 40.0-44.9, adult Start:28-Nov-2020 Instruction Type:Patient Education Patient Instructions Indication:Nonsmoker Start:06-Nov-2020 Instruction Type:Provider Instructions for Treatment How to Access Health Informa tion Online using Patient Portal and [employer] Indication:Nonsmoker Start:06-Nov-2020 Instruction Type:Patient Education How to access health informa tion online Indication:Nonsmoker Start:16-Oct-2020 Instruction Type:Patient Education How to access health informa tion online - Detail Indication:Nonsmoker Start:16-Oct-2020 Instruction Type:Patient Education Patient Instructions Indication:Nonsmoker Start:16-Oct-2020 Instruction Type:Provider Instructions for Treatment How to access health informa tion online Indication:Uncontrolled type II diabetes mellitus Start:16-Jul-2020 Instruction Type:Patient Education How to access health informa tion online - Detail Indication:Uncontrolled type II diabetes mellitus Start:16-Jul-2020 Instruction Type:Patient Education Patient Instructions Indication:Vitamin D deficiency Start:16-Jul-2020 Instruction Type:Provider Instructions for Treatment How to access health informa tion online Indication:Nonsmoker Start:13-Apr-2020 Instruction Type:Patient Education How to access health informa tion online - Detail Indication:Nonsmoker Start:13-Apr-2020 Instruction Type:Patient Education Patient Instructions Indication:Uncontrolled type II diabetes mellitus Start:13-Apr-2020 Instruction Type:Provider Instructions for Treatment How to access health informa tion online Indication:Nonsmoker Start:27-Mar-2020 Instruction Type:Patient Education How to access health informa tion online - Detail Indication:Nonsmoker Start:27-Mar-2020 Instruction Type:Patient Education Patient Instructions Indication:Nonsmoker Start:27-Mar-2020 Instruction Type:Provider Instructions for Treatment How to access health informa tion online Indication:BMI 40.0-44.9, adult Start:21-Feb-2020 Instruction Type:Patient Education How to access health informa tion online - Detail Indication:BMI 40.0-44.9, adult Start:21-Feb-2020 Instruction Type:Patient Education Patient Instructions Indication:Mixed hyperlipidemia Start:21-Feb-2020 Instruction Type:Provider Instructions for Treatment How to access health informa tion online Indication:Nonsmoker Start:09-Jan-2020 Instruction Type:Patient Education How to access health informa tion online - Detail Indication:Nonsmoker Start:09-Jan-2020 Instruction Type:Patient Education Patient Instructions Indication:BMI 39.0-39.9,adult Start:09-Jan-2020 Instruction Type:Provider Instructions for Treatment How to access health informa tion online Indication:Nonsmoker Start:02-Jan-2020 Instruction Type:Patient Education How to access health informa tion online - Detail Indication:Nonsmoker Start:02-Jan-2020 Instruction Type:Patient Education Patient Instructions Indication:Mixed hyperlipidemia Start:02-Jan-2020 Instruction Type:Provider Instructions for Treatment How to access health informa tion online Indication:Uncontrolled type II diabetes mellitus Start:27-Dec-2019 Instruction Type:Patient Education How to access health informa tion online - Detail Indication:Uncontrolled type II diabetes mellitus Start:27-Dec-2019 Instruction Type:Patient Education Patient Instructions Indication:Uncontrolled type II diabetes mellitus Start:27-Dec-2019 Instruction Type:Provider Instructions for Treatment [facility]; [facility] Work Phone: Instructions* Name Dates Details Patient Instructions Indication:BMI 40.0-44.9, adult Start:07-Oct-2021 Instruction Type:Provider Instructions for Treatment How to Access Health Informa tion Online using Patient Portal and [employer] Indication:BMI 40.0-44.9, adult Start:07-Oct-2021 Instruction Type:Patient Education Patient Instructions Indication:BMI 40.0-44.9, adult Start:27-Sep-2021 Instruction Type:Provider Instructions for Treatment How to Access Health Informa tion Online using Patient Portal and [employer] Indication:BMI 40.0-44.9, adult Start:27-Sep-2021 Instruction Type:Patient Education Patient Instructions Indication:Uncontrolled type II diabetes mellitus Start:13-Sep-2021 Instruction Type:Provider Instructions for Treatment How to Access Health Informa tion Online using Patient Portal and [employer] Indication:Uncontrolled type II diabetes mellitus Start:13-Sep-2021 Instruction Type:Patient Education Patient Instructions Indication:BMI 40.0-44.9, adult Start:12-Jul-2021 Instruction Type:Provider Instructions for Treatment How to Access Health Informa tion Online using Patient Portal and [employer] Indication:BMI 40.0-44.9, adult Start:12-Jul-2021 Instruction Type:Patient Education Patient Instructions Indication:Nonsmoker Start:10-Jun-2021 Instruction Type:Provider Instructions for Treatment How to Access Health Informa tion Online using Patient Portal and [employer] Indication:Uncontrolled type II diabetes mellitus Start:10-Jun-2021 Instruction Type:Patient Education Patient Instructions Indication:BMI 40.0-44.9, adult Start:11-Mar-2021 Instruction Type:Provider Instructions for Treatment How to Access Health Informa tion Online using Patient Portal and [employer] Indication:Nonsmoker Start:11-Mar-2021 Instruction Type:Patient Education Patient Instructions Indication:Nonsmoker Start:27-Feb-2021 Instruction Type:Provider Instructions for Treatment How to Access Health Informa tion Online using Patient Portal and [employer] Indication:Nonsmoker Start:27-Feb-2021 Instruction Type:Patient Education Patient Instructions Indication:BMI 40.0-44.9, adult Start:28-Nov-2020 Instruction Type:Provider Instructions for Treatment How to Access Health Informa tion Online using Patient Portal and [employer] Indication:BMI 40.0-44.9, adult Start:28-Nov-2020 Instruction Type:Patient Education Patient Instructions Indication:Nonsmoker Start:06-Nov-2020 Instruction Type:Provider Instructions for Treatment How to Access Health Informa tion Online using Patient Portal and [employer] Indication:Nonsmoker Start:06-Nov-2020 Instruction Type:Patient Education How to access health informa tion online Indication:Nonsmoker Start:16-Oct-2020 Instruction Type:Patient Education How to access health informa tion online - Detail Indication:Nonsmoker Start:16-Oct-2020 Instruction Type:Patient Education Patient Instructions Indication:Nonsmoker Start:16-Oct-2020 Instruction Type:Provider Instructions for Treatment How to access health informa tion online Indication:Uncontrolled type II diabetes mellitus Start:16-Jul-2020 Instruction Type:Patient Education How to access health informa tion online - Detail Indication:Uncontrolled type II diabetes mellitus Start:16-Jul-2020 Instruction Type:Patient Education Patient Instructions Indication:Vitamin D deficiency Start:16-Jul-2020 Instruction Type:Provider Instructions for Treatment How to access health informa tion online Indication:Nonsmoker Start:13-Apr-2020 Instruction Type:Patient Education How to access health informa tion online - Detail Indication:Nonsmoker Start:13-Apr-2020 Instruction Type:Patient Education Patient Instructions Indication:Uncontrolled type II diabetes mellitus Start:13-Apr-2020 Instruction Type:Provider Instructions for Treatment How to access health informa tion online Indication:Nonsmoker Start:27-Mar-2020 Instruction Type:Patient Education How to access health informa tion online - Detail Indication:Nonsmoker Start:27-Mar-2020 Instruction Type:Patient Education Patient Instructions Indication:Nonsmoker Start:27-Mar-2020 Instruction Type:Provider Instructions for Treatment How to access health informa tion online Indication:BMI 40.0-44.9, adult Start:21-Feb-2020 Instruction Type:Patient Education How to access health informa tion online - Detail Indication:BMI 40.0-44.9, adult Start:21-Feb-2020 Instruction Type:Patient Education Patient Instructions Indication:Mixed hyperlipidemia Start:21-Feb-2020 Instruction Type:Provider Instructions for Treatment How to access health informa tion online Indication:Nonsmoker Start:09-Jan-2020 Instruction Type:Patient Education How to access health informa tion online - Detail Indication:Nonsmoker Start:09-Jan-2020 Instruction Type:Patient Education Patient Instructions Indication:BMI 39.0-39.9,adult Start:09-Jan-2020 Instruction Type:Provider Instructions for Treatment How to access health informa tion online Indication:Nonsmoker Start:02-Jan-2020 Instruction Type:Patient Education How to access health informa tion online - Detail Indication:Nonsmoker Start:02-Jan-2020 Instruction Type:Patient Education Patient Instructions Indication:Mixed hyperlipidemia Start:02-Jan-2020 Instruction Type:Provider Instructions for Treatment How to access health informa tion online Indication:Uncontrolled type II diabetes mellitus Start:27-Dec-2019 Instruction Type:Patient Education How to access health informa tion online - Detail Indication:Uncontrolled type II diabetes mellitus Start:27-Dec-2019 Instruction Type:Patient Education Patient Instructions Indication:Uncontrolled type II diabetes mellitus Start:27-Dec-2019 Instruction Type:Provider Instructions for Treatment [facility]; [facility] Work Phone: Family History No Family History Records FoundUnknown Family Member Name Dates Details Father Comments:cardiovasculardecea sed massive [place] 57 Status:Active Maternal Grandmother Comments:strokes Status:Active Mother Comments:87- living dementia - arthritis Status:Active Sister 1 Comments:DM Status:Active Unknown Family Member Name Dates Details Father Comments:cardiovasculardecea sed massive [place] 57 Status:Active Maternal Grandmother Comments:strokes Status:Active Mother Comments:87- living dementia - arthritis Status:Active Sister 1 Comments:DM Status:Active Unknown Family Member Name Dates Details Father Comments:cardiovasculardecea sed [place] 57 Status:Active Maternal Grandmother Comments:strokes Status:Active Mother Comments:87- living dementia - arthritis Status:Active Sister 1 Comments:DM Status:Active Unknown Family Member Name Dates Details Father Comments:cardiovasculardecea sed massive [place] 57 Status:Active Maternal Grandmother Comments:strokes Status:Active Mother Comments:87- living dementia - arthritis Status:Active Sister 1 Comments:DM Status:Active Unknown Family Member Name Dates Details Father Comments:cardiovasculardecea sed [place] 57 Status:Active Maternal Grandmother Comments:strokes Status:Active Mother Comments:87- living dementia - arthritis Status:Active Sister 1 Comments:DM Status:Active Unknown Family Member Name Dates Details Father Comments:cardiovasculardecea sed [place] 57 Status:Active Maternal Grandmother Comments:strokes Status:Active Mother Comments:87- living dementia - arthritis Status:Active Sister 1 Comments:DM Status:Active Unknown Family Member Name Dates Details Father Comments:cardiovasculardecea sed [place] 57 Status:Active Maternal Grandmother Comments:strokes Status:Active Mother Comments:87- living dementia - arthritis Status:Active Sister 1 Comments:DM Status:Active Unknown Family Member Name Dates Details Father Comments:cardiovasculardecea sed [place] 57 Status:Active Maternal Grandmother Comments:strokes Status:Active Mother Comments:87- living dementia - arthritis Status:Active Sister 1 Comments:DM Status:Active Unknown Family Member Name Dates Details Father Comments:cardiovasculardecea sed [place] 57 Status:Active Maternal Grandmother Comments:strokes Status:Active Mother Comments:87- living dementia - arthritis Status:Active Sister 1 Comments:DM Status:Active Unknown Family Member Name Dates Details Father Comments:cardiovasculardecea sed [place] 57 Status:Active Maternal Grandmother Comments:strokes Status:Active Mother Comments:87- living dementia - arthritis Status:Active Sister 1 Comments:DM Status:Active Unknown Family Member Name Dates Details Father Comments:cardiovasculardecea sed [place] 57 Status:Active Maternal Grandmother Comments:strokes Status:Active Mother Comments:87- living dementia - arthritis Status:Active Sister 1 Comments:DM Status:Active Unknown Family Member Name Dates Details Father Comments:cardiovasculardecea sed [place] 57 Status:Active Maternal Grandmother Comments:strokes Status:Active Mother Comments:87- living dementia - arthritis Status:Active Sister 1 Comments:DM Status:Active Unknown Family Member Name Dates Details Father Comments:cardiovasculardecea sed massive [place] 57 Status:Active Maternal Grandmother Comments:strokes Status:Active Mother Comments:87- living dementia - arthritis Status:Active Sister 1 Comments:DM Status:Active Unknown Family Member Name Dates Details Father Comments:cardiovasculardecea sed [place] 57 Status:Active Maternal Grandmother Comments:strokes Status:Active Mother Comments:87- living dementia - arthritis Status:Active Sister 1 Comments:DM Status:Active Unknown Family Member Name Dates Details Father Comments:cardiovasculardecea sed massive [place] 57 Status:Active Maternal Grandmother Comments:strokes Status:Active Mother Comments:87- living dementia - arthritis Status:Active Sister 1 Comments:DM Status:Active Unknown Family Member Name Dates Details Father Comments:cardiovasculardecea sed massive [place] 57 Status:Active Maternal Grandmother Comments:strokes Status:Active Mother Comments:87- living dementia - arthritis Status:Active Sister 1 Comments:DM Status:Active Unknown Family Member Name Dates Details Father Comments:cardiovasculardecea sed massive [place] 57 Status:Active Maternal Grandmother Comments:strokes Status:Active Mother Comments:87- living dementia - arthritis Status:Active Sister 1 Comments:DM Status:Active Unknown Family Member Name Dates Details Father Comments:cardiovasculardecea sed massive [place] 57 Status:Active Maternal Grandmother Comments:strokes Status:Active Mother Comments:87- living dementia - arthritis Status:Active Sister 1 Comments:DM Status:Active Unknown Family Member Name Dates Details Father Comments:cardiovasculardecea sed massive [place] 57 Status:Active Maternal Grandmother Comments:strokes Status:Active Mother Comments:87- living dementia - arthritis Status:Active Sister 1 Comments:DM Status:Active Unknown Family Member Name Dates Details Father Comments:cardiovasculardecea sed massive [place] 57 Status:Active Maternal Grandmother Comments:strokes Status:Active Mother Comments:87- living dementia - arthritis Status:Active Sister 1 Comments:DM Status:Active Unknown Family Member Name Dates Details Father Comments:cardiovasculardecea sed massive [place] 57 Status:Active Maternal Grandmother Comments:strokes Status:Active Mother Comments:87- living dementia - arthritis Status:Active Sister 1 Comments:DM Status:Active Unknown Family Member Name Dates Details Father Comments:cardiovasculardecea sed massive [place] 57 Status:Active Maternal Grandmother Comments:strokes Status:Active Mother Comments:87- living dementia - arthritis Status:Active Sister 1 Comments:DM Status:Active Unknown Family Member Name Dates Details Father Comments:cardiovasculardecea sed massive [place] 57 Status:Active Maternal Grandmother Comments:strokes Status:Active Mother Comments:87- living dementia - arthritis Status:Active Sister 1 Comments:DM Status:Active Unknown Family Member Name Dates Details Father Comments:cardiovasculardecea sed massive [place] 57 Status:Active Maternal Grandmother Comments:strokes Status:Active Mother Comments:87- living dementia - arthritis Status:Active Sister 1 Comments:DM Status:Active Unknown Family Member Name Dates Details Father Comments:cardiovasculardecea sed massive [place] 57 Status:Active Maternal Grandmother Comments:strokes Status:Active Mother Comments:87- living dementia - arthritis Status:Active Sister 1 Comments:DM Status:Active Unknown Family Member Name Dates Details Father Comments:cardiovasculardecea sed massive [place] 57 Status:Active Maternal Grandmother Comments:strokes Status:Active Mother Comments:87- living dementia - arthritis Status:Active Sister 1 Comments:DM Status:Active Unknown Family Member Name Dates Details Father Comments:cardiovasculardecea sed massive [place] 57 Status:Active Maternal Grandmother Comments:strokes Status:Active Mother Comments:87- living dementia - arthritis Status:Active Sister 1 Comments:DM Status:Active Unknown Family Member Name Dates Details Father Comments:cardiovasculardecea sed massive [place] 57 Status:Active Maternal Grandmother Comments:strokes Status:Active Mother Comments:87- living dementia - arthritis Status:Active Sister 1 Comments:DM Status:Active Unknown Family Member Name Dates Details Father Comments:cardiovasculardecea sed massive [place] 57 Status:Active Maternal Grandmother Comments:strokes Status:Active Mother Comments:87- living dementia - arthritis Status:Active Sister 1 Comments:DM Status:Active Unknown Family Member Name Dates Details Father Comments:cardiovasculardecea sed massive [place] 57 Status:Active Maternal Grandmother Comments:strokes Status:Active Mother Comments:87- living dementia - arthritis Status:Active Sister 1 Comments:DM Status:Active Unknown Family Member Name Dates Details Father Comments:cardiovasculardecea sed massive [place] 57 Status:Active Maternal Grandmother Comments:strokes Status:Active Mother Comments:87- living dementia - arthritis Status:Active Sister 1 Comments:DM Status:Active Unknown Family Member Name Dates Details Father Comments:cardiovasculardecea sed massive [place] 57 Status:Active Maternal Grandmother Comments:strokes Status:Active Mother Comments:87- living dementia - arthritis Status:Active Sister 1 Comments:DM Status:Active Unknown Family Member Name Dates Details Father Comments:cardiovasculardecea sed massive [place] 57 Status:Active Maternal Grandmother Comments:strokes Status:Active Mother Comments:87- living dementia - arthritis Status:Active Sister 1 Comments:DM Status:Active Relationship Condition Age at Onset Recorded Date/T vonnie Not Specified High blood cholesterol Unknown father Coronary artery disease Unknown brother Diabetes mellitus Unknown sister Diabetes mellitus Unknown Malignant neoplasm of breast Unknown Hyperlipidemia Unknown Hypertension Unknown Arthritis Unknown Lupus Unknown Malignant neoplasm of colon Unknown grandmother Cerebrovascular accident (CVA) Unknown grandfather Sudden cardiac Unknown son Atrial fibrillation Unknown mother Arthritis Unknown Instructions Name Dates Details How to access [employer] tion online Indication:Nonsmoker Start:13-Apr-2020 Instruction Type:Patient Education How to access health informa tion online - Detail Indication:Nonsmoker Start:13-Apr-2020 Instruction Type:Patient Education Patient Instructions Indication:Uncontrolled type II diabetes mellitus Start:13-Apr-2020 Instruction Type:Provider Instructions for Treatment How to access health informa tion online Indication:Nonsmoker Start:27-Mar-2020 Instruction Type:Patient Education How to access health informa tion online - Detail Indication:Nonsmoker Start:27-Mar-2020 Instruction Type:Patient Education Patient Instructions Indication:Nonsmoker Start:27-Mar-2020 Instruction Type:Provider Instructions for Treatment How to access health informa tion online Indication:BMI 40.0-44.9, adult Start:21-Feb-2020 Instruction Type:Patient Education How to access health informa tion online - Detail Indication:BMI 40.0-44.9, adult Start:21-Feb-2020 Instruction Type:Patient Education Patient Instructions Indication:Mixed hyperlipidemia Start:21-Feb-2020 Instruction Type:Provider Instructions for Treatment How to access health informa tion online Indication:Nonsmoker Start:09-Jan-2020 Instruction Type:Patient Education How to access health informa tion online - Detail Indication:Nonsmoker Start:09-Jan-2020 Instruction Type:Patient Education Patient Instructions Indication:BMI 39.0-39.9,adult Start:09-Jan-2020 Instruction Type:Provider Instructions for Treatment How to access health informa tion online Indication:Nonsmoker Start:02-Jan-2020 Instruction Type:Patient Education How to access health informa tion online - Detail Indication:Nonsmoker Start:02-Jan-2020 Instruction Type:Patient Education Patient Instructions Indication:Mixed hyperlipidemia Start:02-Jan-2020 Instruction Type:Provider Instructions for Treatment How to access health informa tion online Indication:Uncontrolled type II diabetes mellitus Start:27-Dec-2019 Instruction Type:Patient Education How to access health informa tion online - Detail Indication:Uncontrolled type II diabetes mellitus Start:27-Dec-2019 Instruction Type:Patient Education Patient Instructions Indication:Uncontrolled type II diabetes mellitus Start:27-Dec-2019 Instruction Type:Provider Instructions for Treatment Name Dates Details How to access health informa tion online Indication:Nonsmoker Start:13-Apr-2020 Instruction Type:Patient Education How to access health informa tion online - Detail Indication:Nonsmoker Start:13-Apr-2020 Instruction Type:Patient Education Patient Instructions Indication:Uncontrolled type II diabetes mellitus Start:13-Apr-2020 Instruction Type:Provider Instructions for Treatment How to access health informa tion online Indication:Nonsmoker Start:27-Mar-2020 Instruction Type:Patient Education How to access health informa tion online - Detail Indication:Nonsmoker Start:27-Mar-2020 Instruction Type:Patient Education Patient Instructions Indication:Nonsmoker Start:27-Mar-2020 Instruction Type:Provider Instructions for Treatment How to access health informa tion online Indication:BMI 40.0-44.9, adult Start:21-Feb-2020 Instruction Type:Patient Education How to access health informa tion online - Detail Indication:BMI 40.0-44.9, adult Start:21-Feb-2020 Instruction Type:Patient Education Patient Instructions Indication:Mixed hyperlipidemia Start:21-Feb-2020 Instruction Type:Provider Instructions for Treatment How to access health informa tion online Indication:Nonsmoker Start:09-Jan-2020 Instruction Type:Patient Education How to access health informa tion online - Detail Indication:Nonsmoker Start:09-Jan-2020 Instruction Type:Patient Education Patient Instructions Indication:BMI 39.0-39.9,adult Start:09-Jan-2020 Instruction Type:Provider Instructions for Treatment How to access health informa tion online Indication:Nonsmoker Start:02-Jan-2020 Instruction Type:Patient Education How to access health informa tion online - Detail Indication:Nonsmoker Start:02-Jan-2020 Instruction Type:Patient Education Patient Instructions Indication:Mixed hyperlipidemia Start:02-Jan-2020 Instruction Type:Provider Instructions for Treatment How to access health informa tion online Indication:Uncontrolled type II diabetes mellitus Start:27-Dec-2019 Instruction Type:Patient Education How to access health informa tion online - Detail Indication:Uncontrolled type II diabetes mellitus Start:27-Dec-2019 Instruction Type:Patient Education Patient Instructions Indication:Uncontrolled type II diabetes mellitus Start:27-Dec-2019 Instruction Type:Provider Instructions for Treatment Name Dates Details How to access health informa tion online Indication:Uncontrolled type II diabetes mellitus Start:16-Jul-2020 Instruction Type:Patient Education How to access health informa tion online - Detail Indication:Uncontrolled type II diabetes mellitus Start:16-Jul-2020 Instruction Type:Patient Education Patient Instructions Indication:Vitamin D deficiency Start:16-Jul-2020 Instruction Type:Provider Instructions for Treatment How to access health informa tion online Indication:Nonsmoker Start:13-Apr-2020 Instruction Type:Patient Education How to access health informa tion online - Detail Indication:Nonsmoker Start:13-Apr-2020 Instruction Type:Patient Education Patient Instructions Indication:Uncontrolled type II diabetes mellitus Start:13-Apr-2020 Instruction Type:Provider Instructions for Treatment How to access health informa tion online Indication:Nonsmoker Start:27-Mar-2020 Instruction Type:Patient Education How to access health informa tion online - Detail Indication:Nonsmoker Start:27-Mar-2020 Instruction Type:Patient Education Patient Instructions Indication:Nonsmoker Start:27-Mar-2020 Instruction Type:Provider Instructions for Treatment How to access health informa tion online Indication:BMI 40.0-44.9, adult Start:21-Feb-2020 Instruction Type:Patient Education How to access health informa tion online - Detail Indication:BMI 40.0-44.9, adult Start:21-Feb-2020 Instruction Type:Patient Education Patient Instructions Indication:Mixed hyperlipidemia Start:21-Feb-2020 Instruction Type:Provider Instructions for Treatment How to access health informa tion online Indication:Nonsmoker Start:09-Jan-2020 Instruction Type:Patient Education How to access health informa tion online - Detail Indication:Nonsmoker Start:09-Jan-2020 Instruction Type:Patient Education Patient Instructions Indication:BMI 39.0-39.9,adult Start:09-Jan-2020 Instruction Type:Provider Instructions for Treatment How to access health informa tion online Indication:Nonsmoker Start:02-Jan-2020 Instruction Type:Patient Education How to access health informa tion online - Detail Indication:Nonsmoker Start:02-Jan-2020 Instruction Type:Patient Education Patient Instructions Indication:Mixed hyperlipidemia Start:02-Jan-2020 Instruction Type:Provider Instructions for Treatment How to access health informa tion online Indication:Uncontrolled type II diabetes mellitus Start:27-Dec-2019 Instruction Type:Patient Education How to access health informa tion online - Detail Indication:Uncontrolled type II diabetes mellitus Start:27-Dec-2019 Instruction Type:Patient Education Patient Instructions Indication:Uncontrolled type II diabetes mellitus Start:27-Dec-2019 Instruction Type:Provider Instructions for Treatment Name Dates Details How to access health informa tion online Indication:Uncontrolled type II diabetes mellitus Start:16-Jul-2020 Instruction Type:Patient Education How to access health informa tion online - Detail Indication:Uncontrolled type II diabetes mellitus Start:16-Jul-2020 Instruction Type:Patient Education Patient Instructions Indication:Vitamin D deficiency Start:16-Jul-2020 Instruction Type:Provider Instructions for Treatment How to access health informa tion online Indication:Nonsmoker Start:13-Apr-2020 Instruction Type:Patient Education How to access health informa tion online - Detail Indication:Nonsmoker Start:13-Apr-2020 Instruction Type:Patient Education Patient Instructions Indication:Uncontrolled type II diabetes mellitus Start:13-Apr-2020 Instruction Type:Provider Instructions for Treatment How to access health informa tion online Indication:Nonsmoker Start:27-Mar-2020 Instruction Type:Patient Education How to access health informa tion online - Detail Indication:Nonsmoker Start:27-Mar-2020 Instruction Type:Patient Education Patient Instructions Indication:Nonsmoker Start:27-Mar-2020 Instruction Type:Provider Instructions for Treatment How to access health informa tion online Indication:BMI 40.0-44.9, adult Start:21-Feb-2020 Instruction Type:Patient Education How to access health informa tion online - Detail Indication:BMI 40.0-44.9, adult Start:21-Feb-2020 Instruction Type:Patient Education Patient Instructions Indication:Mixed hyperlipidemia Start:21-Feb-2020 Instruction Type:Provider Instructions for Treatment How to access health informa tion online Indication:Nonsmoker Start:09-Jan-2020 Instruction Type:Patient Education How to access health informa tion online - Detail Indication:Nonsmoker Start:09-Jan-2020 Instruction Type:Patient Education Patient Instructions Indication:BMI 39.0-39.9,adult Start:09-Jan-2020 Instruction Type:Provider Instructions for Treatment How to access health informa tion online Indication:Nonsmoker Start:02-Jan-2020 Instruction Type:Patient Education How to access health informa tion online - Detail Indication:Nonsmoker Start:02-Jan-2020 Instruction Type:Patient Education Patient Instructions Indication:Mixed hyperlipidemia Start:02-Jan-2020 Instruction Type:Provider Instructions for Treatment How to access health informa tion online Indication:Uncontrolled type II diabetes mellitus Start:27-Dec-2019 Instruction Type:Patient Education How to access health informa tion online - Detail Indication:Uncontrolled type II diabetes mellitus Start:27-Dec-2019 Instruction Type:Patient Education Patient Instructions Indication:Uncontrolled type II diabetes mellitus Start:27-Dec-2019 Instruction Type:Provider Instructions for Treatment Name Dates Details How to access health informa tion online Indication:Uncontrolled type II diabetes mellitus Start:16-Jul-2020 Instruction Type:Patient Education How to access health informa tion online - Detail Indication:Uncontrolled type II diabetes mellitus Start:16-Jul-2020 Instruction Type:Patient Education Patient Instructions Indication:Vitamin D deficiency Start:16-Jul-2020 Instruction Type:Provider Instructions for Treatment How to access health informa tion online Indication:Nonsmoker Start:13-Apr-2020 Instruction Type:Patient Education How to access health informa tion online - Detail Indication:Nonsmoker Start:13-Apr-2020 Instruction Type:Patient Education Patient Instructions Indication:Uncontrolled type II diabetes mellitus Start:13-Apr-2020 Instruction Type:Provider Instructions for Treatment How to access health informa tion online Indication:Nonsmoker Start:27-Mar-2020 Instruction Type:Patient Education How to access health informa tion online - Detail Indication:Nonsmoker Start:27-Mar-2020 Instruction Type:Patient Education Patient Instructions Indication:Nonsmoker Start:27-Mar-2020 Instruction Type:Provider Instructions for Treatment How to access health informa tion online Indication:BMI 40.0-44.9, adult Start:21-Feb-2020 Instruction Type:Patient Education How to access health informa tion online - Detail Indication:BMI 40.0-44.9, adult Start:21-Feb-2020 Instruction Type:Patient Education Patient Instructions Indication:Mixed hyperlipidemia Start:21-Feb-2020 Instruction Type:Provider Instructions for Treatment How to access health informa tion online Indication:Nonsmoker Start:09-Jan-2020 Instruction Type:Patient Education How to access health informa tion online - Detail Indication:Nonsmoker Start:09-Jan-2020 Instruction Type:Patient Education Patient Instructions Indication:BMI 39.0-39.9,adult Start:09-Jan-2020 Instruction Type:Provider Instructions for Treatment How to access health informa tion online Indication:Nonsmoker Start:02-Jan-2020 Instruction Type:Patient Education How to access health informa tion online - Detail Indication:Nonsmoker Start:02-Jan-2020 Instruction Type:Patient Education Patient Instructions Indication:Mixed hyperlipidemia Start:02-Jan-2020 Instruction Type:Provider Instructions for Treatment How to access health informa tion online Indication:Uncontrolled type II diabetes mellitus Start:27-Dec-2019 Instruction Type:Patient Education How to access health informa tion online - Detail Indication:Uncontrolled type II diabetes mellitus Start:27-Dec-2019 Instruction Type:Patient Education Patient Instructions Indication:Uncontrolled type II diabetes mellitus Start:27-Dec-2019 Instruction Type:Provider Instructions for Treatment Name Dates Details How to access health informa tion online Indication:Uncontrolled type II diabetes mellitus Start:16-Jul-2020 Instruction Type:Patient Education How to access health informa tion online - Detail Indication:Uncontrolled type II diabetes mellitus Start:16-Jul-2020 Instruction Type:Patient Education Patient Instructions Indication:Vitamin D deficiency Start:16-Jul-2020 Instruction Type:Provider Instructions for Treatment How to access health informa tion online Indication:Nonsmoker Start:13-Apr-2020 Instruction Type:Patient Education How to access health informa tion online - Detail Indication:Nonsmoker Start:13-Apr-2020 Instruction Type:Patient Education Patient Instructions Indication:Uncontrolled type II diabetes mellitus Start:13-Apr-2020 Instruction Type:Provider Instructions for Treatment How to access health informa tion online Indication:Nonsmoker Start:27-Mar-2020 Instruction Type:Patient Education How to access health informa tion online - Detail Indication:Nonsmoker Start:27-Mar-2020 Instruction Type:Patient Education Patient Instructions Indication:Nonsmoker Start:27-Mar-2020 Instruction Type:Provider Instructions for Treatment How to access health informa tion online Indication:BMI 40.0-44.9, adult Start:21-Feb-2020 Instruction Type:Patient Education How to access health informa tion online - Detail Indication:BMI 40.0-44.9, adult Start:21-Feb-2020 Instruction Type:Patient Education Patient Instructions Indication:Mixed hyperlipidemia Start:21-Feb-2020 Instruction Type:Provider Instructions for Treatment How to access health informa tion online Indication:Nonsmoker Start:09-Jan-2020 Instruction Type:Patient Education How to access health informa tion online - Detail Indication:Nonsmoker Start:09-Jan-2020 Instruction Type:Patient Education Patient Instructions Indication:BMI 39.0-39.9,adult Start:09-Jan-2020 Instruction Type:Provider Instructions for Treatment How to access health informa tion online Indication:Nonsmoker Start:02-Jan-2020 Instruction Type:Patient Education How to access health informa tion online - Detail Indication:Nonsmoker Start:02-Jan-2020 Instruction Type:Patient Education Patient Instructions Indication:Mixed hyperlipidemia Start:02-Jan-2020 Instruction Type:Provider Instructions for Treatment How to access health informa tion online Indication:Uncontrolled type II diabetes mellitus Start:27-Dec-2019 Instruction Type:Patient Education How to access health informa tion online - Detail Indication:Uncontrolled type II diabetes mellitus Start:27-Dec-2019 Instruction Type:Patient Education Patient Instructions Indication:Uncontrolled type II diabetes mellitus Start:27-Dec-2019 Instruction Type:Provider Instructions for Treatment Name Dates Details How to access health informa tion online Indication:Nonsmoker Start:16-Oct-2020 Instruction Type:Patient Education How to access health informa tion online - Detail Indication:Nonsmoker Start:16-Oct-2020 Instruction Type:Patient Education Patient Instructions Indication:Nonsmoker Start:16-Oct-2020 Instruction Type:Provider Instructions for Treatment How to access health informa tion online Indication:Uncontrolled type II diabetes mellitus Start:16-Jul-2020 Instruction Type:Patient Education How to access health informa tion online - Detail Indication:Uncontrolled type II diabetes mellitus Start:16-Jul-2020 Instruction Type:Patient Education Patient Instructions Indication:Vitamin D deficiency Start:16-Jul-2020 Instruction Type:Provider Instructions for Treatment How to access health informa tion online Indication:Nonsmoker Start:13-Apr-2020 Instruction Type:Patient Education How to access health informa tion online - Detail Indication:Nonsmoker Start:13-Apr-2020 Instruction Type:Patient Education Patient Instructions Indication:Uncontrolled type II diabetes mellitus Start:13-Apr-2020 Instruction Type:Provider Instructions for Treatment How to access health informa tion online Indication:Nonsmoker Start:27-Mar-2020 Instruction Type:Patient Education How to access health informa tion online - Detail Indication:Nonsmoker Start:27-Mar-2020 Instruction Type:Patient Education Patient Instructions Indication:Nonsmoker Start:27-Mar-2020 Instruction Type:Provider Instructions for Treatment How to access health informa tion online Indication:BMI 40.0-44.9, adult Start:21-Feb-2020 Instruction Type:Patient Education How to access health informa tion online - Detail Indication:BMI 40.0-44.9, adult Start:21-Feb-2020 Instruction Type:Patient Education Patient Instructions Indication:Mixed hyperlipidemia Start:21-Feb-2020 Instruction Type:Provider Instructions for Treatment How to access health informa tion online Indication:Nonsmoker Start:09-Jan-2020 Instruction Type:Patient Education How to access health informa tion online - Detail Indication:Nonsmoker Start:09-Jan-2020 Instruction Type:Patient Education Patient Instructions Indication:BMI 39.0-39.9,adult Start:09-Jan-2020 Instruction Type:Provider Instructions for Treatment How to access health informa tion online Indication:Nonsmoker Start:02-Jan-2020 Instruction Type:Patient Education How to access health informa tion online - Detail Indication:Nonsmoker Start:02-Jan-2020 Instruction Type:Patient Education Patient Instructions Indication:Mixed hyperlipidemia Start:02-Jan-2020 Instruction Type:Provider Instructions for Treatment How to access health informa tion online Indication:Uncontrolled type II diabetes mellitus Start:27-Dec-2019 Instruction Type:Patient Education How to access health informa tion online - Detail Indication:Uncontrolled type II diabetes mellitus Start:27-Dec-2019 Instruction Type:Patient Education Patient Instructions Indication:Uncontrolled type II diabetes mellitus Start:27-Dec-2019 Instruction Type:Provider Instructions for Treatment Name Dates Details How to access health informa tion online Indication:Nonsmoker Start:16-Oct-2020 Instruction Type:Patient Education How to access health informa tion online - Detail Indication:Nonsmoker Start:16-Oct-2020 Instruction Type:Patient Education Patient Instructions Indication:Nonsmoker Start:16-Oct-2020 Instruction Type:Provider Instructions for Treatment How to access health informa tion online Indication:Uncontrolled type II diabetes mellitus Start:16-Jul-2020 Instruction Type:Patient Education How to access health informa tion online - Detail Indication:Uncontrolled type II diabetes mellitus Start:16-Jul-2020 Instruction Type:Patient Education Patient Instructions Indication:Vitamin D deficiency Start:16-Jul-2020 Instruction Type:Provider Instructions for Treatment How to access health informa tion online Indication:Nonsmoker Start:13-Apr-2020 Instruction Type:Patient Education How to access health informa tion online - Detail Indication:Nonsmoker Start:13-Apr-2020 Instruction Type:Patient Education Patient Instructions Indication:Uncontrolled type II diabetes mellitus Start:13-Apr-2020 Instruction Type:Provider Instructions for Treatment How to access health informa tion online Indication:Nonsmoker Start:27-Mar-2020 Instruction Type:Patient Education How to access health informa tion online - Detail Indication:Nonsmoker Start:27-Mar-2020 Instruction Type:Patient Education Patient Instructions Indication:Nonsmoker Start:27-Mar-2020 Instruction Type:Provider Instructions for Treatment How to access health informa tion online Indication:BMI 40.0-44.9, adult Start:21-Feb-2020 Instruction Type:Patient Education How to access health informa tion online - Detail Indication:BMI 40.0-44.9, adult Start:21-Feb-2020 Instruction Type:Patient Education Patient Instructions Indication:Mixed hyperlipidemia Start:21-Feb-2020 Instruction Type:Provider Instructions for Treatment How to access health informa tion online Indication:Nonsmoker Start:09-Jan-2020 Instruction Type:Patient Education How to access health informa tion online - Detail Indication:Nonsmoker Start:09-Jan-2020 Instruction Type:Patient Education Patient Instructions Indication:BMI 39.0-39.9,adult Start:09-Jan-2020 Instruction Type:Provider Instructions for Treatment How to access health informa tion online Indication:Nonsmoker Start:02-Jan-2020 Instruction Type:Patient Education How to access health informa tion online - Detail Indication:Nonsmoker Start:02-Jan-2020 Instruction Type:Patient Education Patient Instructions Indication:Mixed hyperlipidemia Start:02-Jan-2020 Instruction Type:Provider Instructions for Treatment How to access health informa tion online Indication:Uncontrolled type II diabetes mellitus Start:27-Dec-2019 Instruction Type:Patient Education How to access health informa tion online - Detail Indication:Uncontrolled type II diabetes mellitus Start:27-Dec-2019 Instruction Type:Patient Education Patient Instructions Indication:Uncontrolled type II diabetes mellitus Start:27-Dec-2019 Instruction Type:Provider Instructions for Treatment Name Dates Details How to access health informa tion online Indication:Nonsmoker Start:16-Oct-2020 Instruction Type:Patient Education How to access health informa tion online - Detail Indication:Nonsmoker Start:16-Oct-2020 Instruction Type:Patient Education Patient Instructions Indication:Nonsmoker Start:16-Oct-2020 Instruction Type:Provider Instructions for Treatment How to access health informa tion online Indication:Uncontrolled type II diabetes mellitus Start:16-Jul-2020 Instruction Type:Patient Education How to access health informa tion online - Detail Indication:Uncontrolled type II diabetes mellitus Start:16-Jul-2020 Instruction Type:Patient Education Patient Instructions Indication:Vitamin D deficiency Start:16-Jul-2020 Instruction Type:Provider Instructions for Treatment How to access health informa tion online Indication:Nonsmoker Start:13-Apr-2020 Instruction Type:Patient Education How to access health informa tion online - Detail Indication:Nonsmoker Start:13-Apr-2020 Instruction Type:Patient Education Patient Instructions Indication:Uncontrolled type II diabetes mellitus Start:13-Apr-2020 Instruction Type:Provider Instructions for Treatment How to access health informa tion online Indication:Nonsmoker Start:27-Mar-2020 Instruction Type:Patient Education How to access health informa tion online - Detail Indication:Nonsmoker Start:27-Mar-2020 Instruction Type:Patient Education Patient Instructions Indication:Nonsmoker Start:27-Mar-2020 Instruction Type:Provider Instructions for Treatment How to access health informa tion online Indication:BMI 40.0-44.9, adult Start:21-Feb-2020 Instruction Type:Patient Education How to access health informa tion online - Detail Indication:BMI 40.0-44.9, adult Start:21-Feb-2020 Instruction Type:Patient Education Patient Instructions Indication:Mixed hyperlipidemia Start:21-Feb-2020 Instruction Type:Provider Instructions for Treatment How to access health informa tion online Indication:Nonsmoker Start:09-Jan-2020 Instruction Type:Patient Education How to access health informa tion online - Detail Indication:Nonsmoker Start:09-Jan-2020 Instruction Type:Patient Education Patient Instructions Indication:BMI 39.0-39.9,adult Start:09-Jan-2020 Instruction Type:Provider Instructions for Treatment How to access health informa tion online Indication:Nonsmoker Start:02-Jan-2020 Instruction Type:Patient Education How to access health informa tion online - Detail Indication:Nonsmoker Start:02-Jan-2020 Instruction Type:Patient Education Patient Instructions Indication:Mixed hyperlipidemia Start:02-Jan-2020 Instruction Type:Provider Instructions for Treatment How to access health informa tion online Indication:Uncontrolled type II diabetes mellitus Start:27-Dec-2019 Instruction Type:Patient Education How to access health informa tion online - Detail Indication:Uncontrolled type II diabetes mellitus Start:27-Dec-2019 Instruction Type:Patient Education Patient Instructions Indication:Uncontrolled type II diabetes mellitus Start:27-Dec-2019 Instruction Type:Provider Instructions for Treatment Name Dates Details Patient Instructions Indication:Nonsmoker Start:06-Nov-2020 Instruction Type:Provider Instructions for Treatment How to Access Health Informa tion Online using Patient Portal and [employer] Apps Indication:Nonsmoker Start:06-Nov-2020 Instruction Type:Patient Education How to access health informa tion online Indication:Nonsmoker Start:16-Oct-2020 Instruction Type:Patient Education How to access health informa tion online - Detail Indication:Nonsmoker Start:16-Oct-2020 Instruction Type:Patient Education Patient Instructions Indication:Nonsmoker Start:16-Oct-2020 Instruction Type:Provider Instructions for Treatment How to access health informa tion online Indication:Uncontrolled type II diabetes mellitus Start:16-Jul-2020 Instruction Type:Patient Education How to access health informa tion online - Detail Indication:Uncontrolled type II diabetes mellitus Start:16-Jul-2020 Instruction Type:Patient Education Patient Instructions Indication:Vitamin D deficiency Start:16-Jul-2020 Instruction Type:Provider Instructions for Treatment How to access health informa tion online Indication:Nonsmoker Start:13-Apr-2020 Instruction Type:Patient Education How to access health informa tion online - Detail Indication:Nonsmoker Start:13-Apr-2020 Instruction Type:Patient Education Patient Instructions Indication:Uncontrolled type II diabetes mellitus Start:13-Apr-2020 Instruction Type:Provider Instructions for Treatment How to access health informa tion online Indication:Nonsmoker Start:27-Mar-2020 Instruction Type:Patient Education How to access health informa tion online - Detail Indication:Nonsmoker Start:27-Mar-2020 Instruction Type:Patient Education Patient Instructions Indication:Nonsmoker Start:27-Mar-2020 Instruction Type:Provider Instructions for Treatment How to access health informa tion online Indication:BMI 40.0-44.9, adult Start:21-Feb-2020 Instruction Type:Patient Education How to access health informa tion online - Detail Indication:BMI 40.0-44.9, adult Start:21-Feb-2020 Instruction Type:Patient Education Patient Instructions Indication:Mixed hyperlipidemia Start:21-Feb-2020 Instruction Type:Provider Instructions for Treatment How to access health informa tion online Indication:Nonsmoker Start:09-Jan-2020 Instruction Type:Patient Education How to access health informa tion online - Detail Indication:Nonsmoker Start:09-Jan-2020 Instruction Type:Patient Education Patient Instructions Indication:BMI 39.0-39.9,adult Start:09-Jan-2020 Instruction Type:Provider Instructions for Treatment How to access health informa tion online Indication:Nonsmoker Start:02-Jan-2020 Instruction Type:Patient Education How to access health informa tion online - Detail Indication:Nonsmoker Start:02-Jan-2020 Instruction Type:Patient Education Patient Instructions Indication:Mixed hyperlipidemia Start:02-Jan-2020 Instruction Type:Provider Instructions for Treatment How to access health informa tion online Indication:Uncontrolled type II diabetes mellitus Start:27-Dec-2019 Instruction Type:Patient Education How to access health informa tion online - Detail Indication:Uncontrolled type II diabetes mellitus Start:27-Dec-2019 Instruction Type:Patient Education Patient Instructions Indication:Uncontrolled type II diabetes mellitus Start:27-Dec-2019 Instruction Type:Provider Instructions for Treatment Name Dates Details Patient Instructions Indication:Nonsmoker Start:06-Nov-2020 Instruction Type:Provider Instructions for Treatment How to Access Health Informa tion Online using Patient Portal and 3rd [employer] Apps Indication:Nonsmoker Start:06-Nov-2020 Instruction Type:Patient Education How to access health informa tion online Indication:Nonsmoker Start:16-Oct-2020 Instruction Type:Patient Education How to access health informa tion online - Detail Indication:Nonsmoker Start:16-Oct-2020 Instruction Type:Patient Education Patient Instructions Indication:Nonsmoker Start:16-Oct-2020 Instruction Type:Provider Instructions for Treatment How to access health informa tion online Indication:Uncontrolled type II diabetes mellitus Start:16-Jul-2020 Instruction Type:Patient Education How to access health informa tion online - Detail Indication:Uncontrolled type II diabetes mellitus Start:16-Jul-2020 Instruction Type:Patient Education Patient Instructions Indication:Vitamin D deficiency Start:16-Jul-2020 Instruction Type:Provider Instructions for Treatment How to access health informa tion online Indication:Nonsmoker Start:13-Apr-2020 Instruction Type:Patient Education How to access health informa tion online - Detail Indication:Nonsmoker Start:13-Apr-2020 Instruction Type:Patient Education Patient Instructions Indication:Uncontrolled type II diabetes mellitus Start:13-Apr-2020 Instruction Type:Provider Instructions for Treatment How to access health informa tion online Indication:Nonsmoker Start:27-Mar-2020 Instruction Type:Patient Education How to access health informa tion online - Detail Indication:Nonsmoker Start:27-Mar-2020 Instruction Type:Patient Education Patient Instructions Indication:Nonsmoker Start:27-Mar-2020 Instruction Type:Provider Instructions for Treatment How to access health informa tion online Indication:BMI 40.0-44.9, adult Start:21-Feb-2020 Instruction Type:Patient Education How to access health informa tion online - Detail Indication:BMI 40.0-44.9, adult Start:21-Feb-2020 Instruction Type:Patient Education Patient Instructions Indication:Mixed hyperlipidemia Start:21-Feb-2020 Instruction Type:Provider Instructions for Treatment How to access health informa tion online Indication:Nonsmoker Start:09-Jan-2020 Instruction Type:Patient Education How to access health informa tion online - Detail Indication:Nonsmoker Start:09-Jan-2020 Instruction Type:Patient Education Patient Instructions Indication:BMI 39.0-39.9,adult Start:09-Jan-2020 Instruction Type:Provider Instructions for Treatment How to access health informa tion online Indication:Nonsmoker Start:02-Jan-2020 Instruction Type:Patient Education How to access health informa tion online - Detail Indication:Nonsmoker Start:02-Jan-2020 Instruction Type:Patient Education Patient Instructions Indication:Mixed hyperlipidemia Start:02-Jan-2020 Instruction Type:Provider Instructions for Treatment How to access health informa tion online Indication:Uncontrolled type II diabetes mellitus Start:27-Dec-2019 Instruction Type:Patient Education How to access health informa tion online - Detail Indication:Uncontrolled type II diabetes mellitus Start:27-Dec-2019 Instruction Type:Patient Education Patient Instructions Indication:Uncontrolled type II diabetes mellitus Start:27-Dec-2019 Instruction Type:Provider Instructions for Treatment Name Dates Details How to access health informa tion online Indication:Uncontrolled type II diabetes mellitus Start:16-Jul-2020 Instruction Type:Patient Education How to access health informa tion online - Detail Indication:Uncontrolled type II diabetes mellitus Start:16-Jul-2020 Instruction Type:Patient Education Patient Instructions Indication:Vitamin D deficiency Start:16-Jul-2020 Instruction Type:Provider Instructions for Treatment How to access health informa tion online Indication:Nonsmoker Start:13-Apr-2020 Instruction Type:Patient Education How to access health informa tion online - Detail Indication:Nonsmoker Start:13-Apr-2020 Instruction Type:Patient Education Patient Instructions Indication:Uncontrolled type II diabetes mellitus Start:13-Apr-2020 Instruction Type:Provider Instructions for Treatment How to access health informa tion online Indication:Nonsmoker Start:27-Mar-2020 Instruction Type:Patient Education How to access health informa tion online - Detail Indication:Nonsmoker Start:27-Mar-2020 Instruction Type:Patient Education Patient Instructions Indication:Nonsmoker Start:27-Mar-2020 Instruction Type:Provider Instructions for Treatment How to access health informa tion online Indication:BMI 40.0-44.9, adult Start:21-Feb-2020 Instruction Type:Patient Education How to access health informa tion online - Detail Indication:BMI 40.0-44.9, adult Start:21-Feb-2020 Instruction Type:Patient Education Patient Instructions Indication:Mixed hyperlipidemia Start:21-Feb-2020 Instruction Type:Provider Instructions for Treatment How to access health informa tion online Indication:Nonsmoker Start:09-Jan-2020 Instruction Type:Patient Education How to access health informa tion online - Detail Indication:Nonsmoker Start:09-Jan-2020 Instruction Type:Patient Education Patient Instructions Indication:BMI 39.0-39.9,adult Start:09-Jan-2020 Instruction Type:Provider Instructions for Treatment How to access health informa tion online Indication:Nonsmoker Start:02-Jan-2020 Instruction Type:Patient Education How to access health informa tion online - Detail Indication:Nonsmoker Start:02-Jan-2020 Instruction Type:Patient Education Patient Instructions Indication:Mixed hyperlipidemia Start:02-Jan-2020 Instruction Type:Provider Instructions for Treatment How to access health informa tion online Indication:Uncontrolled type II diabetes mellitus Start:27-Dec-2019 Instruction Type:Patient Education How to access health informa tion online - Detail Indication:Uncontrolled type II diabetes mellitus Start:27-Dec-2019 Instruction Type:Patient Education Patient Instructions Indication:Uncontrolled type II diabetes mellitus Start:27-Dec-2019 Instruction Type:Provider Instructions for Treatment Name Dates Details Patient Instructions Indication:BMI 40.0-44.9, adult Start:28-Nov-2020 Instruction Type:Provider Instructions for Treatment How to Access Health Informa tion Online using Patient Portal and [employer] Apps Indication:BMI 40.0-44.9, adult Start:28-Nov-2020 Instruction Type:Patient Education Patient Instructions Indication:Nonsmoker Start:06-Nov-2020 Instruction Type:Provider Instructions for Treatment How to Access Health Informa tion Online using Patient Portal and [employer]rd [employer] Apps Indication:Nonsmoker Start:06-Nov-2020 Instruction Type:Patient Education How to access health informa tion online Indication:Nonsmoker Start:16-Oct-2020 Instruction Type:Patient Education How to access health informa tion online - Detail Indication:Nonsmoker Start:16-Oct-2020 Instruction Type:Patient Education Patient Instructions Indication:Nonsmoker Start:16-Oct-2020 Instruction Type:Provider Instructions for Treatment How to access health informa tion online Indication:Uncontrolled type II diabetes mellitus Start:16-Jul-2020 Instruction Type:Patient Education How to access health informa tion online - Detail Indication:Uncontrolled type II diabetes mellitus Start:16-Jul-2020 Instruction Type:Patient Education Patient Instructions Indication:Vitamin D deficiency Start:16-Jul-2020 Instruction Type:Provider Instructions for Treatment How to access health informa tion online Indication:Nonsmoker Start:13-Apr-2020 Instruction Type:Patient Education How to access health informa tion online - Detail Indication:Nonsmoker Start:13-Apr-2020 Instruction Type:Patient Education Patient Instructions Indication:Uncontrolled type II diabetes mellitus Start:13-Apr-2020 Instruction Type:Provider Instructions for Treatment How to access health informa tion online Indication:Nonsmoker Start:27-Mar-2020 Instruction Type:Patient Education How to access health informa tion online - Detail Indication:Nonsmoker Start:27-Mar-2020 Instruction Type:Patient Education Patient Instructions Indication:Nonsmoker Start:27-Mar-2020 Instruction Type:Provider Instructions for Treatment How to access health informa tion online Indication:BMI 40.0-44.9, adult Start:21-Feb-2020 Instruction Type:Patient Education How to access health informa tion online - Detail Indication:BMI 40.0-44.9, adult Start:21-Feb-2020 Instruction Type:Patient Education Patient Instructions Indication:Mixed hyperlipidemia Start:21-Feb-2020 Instruction Type:Provider Instructions for Treatment How to access health informa tion online Indication:Nonsmoker Start:09-Jan-2020 Instruction Type:Patient Education How to access health informa tion online - Detail Indication:Nonsmoker Start:09-Jan-2020 Instruction Type:Patient Education Patient Instructions Indication:BMI 39.0-39.9,adult Start:09-Jan-2020 Instruction Type:Provider Instructions for Treatment How to access health informa tion online Indication:Nonsmoker Start:02-Jan-2020 Instruction Type:Patient Education How to access health informa tion online - Detail Indication:Nonsmoker Start:02-Jan-2020 Instruction Type:Patient Education Patient Instructions Indication:Mixed hyperlipidemia Start:02-Jan-2020 Instruction Type:Provider Instructions for Treatment How to access health informa tion online Indication:Uncontrolled type II diabetes mellitus Start:27-Dec-2019 Instruction Type:Patient Education How to access health informa tion online - Detail Indication:Uncontrolled type II diabetes mellitus Start:27-Dec-2019 Instruction Type:Patient Education Patient Instructions Indication:Uncontrolled type II diabetes mellitus Start:27-Dec-2019 Instruction Type:Provider Instructions for Treatment Name Dates Details Patient Instructions Indication:BMI 40.0-44.9, adult Start:28-Nov-2020 Instruction Type:Provider Instructions for Treatment How to Access Health Informa tion Online using Patient Portal and [employer]rd [employer] Apps Indication:BMI 40.0-44.9, adult Start:28-Nov-2020 Instruction Type:Patient Education Patient Instructions Indication:Nonsmoker Start:06-Nov-2020 Instruction Type:Provider Instructions for Treatment How to Access Health Informa tion Online using Patient Portal and [employer]rd [employer] Apps Indication:Nonsmoker Start:06-Nov-2020 Instruction Type:Patient Education How to access health informa tion online Indication:Nonsmoker Start:16-Oct-2020 Instruction Type:Patient Education How to access health informa tion online - Detail Indication:Nonsmoker Start:16-Oct-2020 Instruction Type:Patient Education Patient Instructions Indication:Nonsmoker Start:16-Oct-2020 Instruction Type:Provider Instructions for Treatment How to access health informa tion online Indication:Uncontrolled type II diabetes mellitus Start:16-Jul-2020 Instruction Type:Patient Education How to access health informa tion online - Detail Indication:Uncontrolled type II diabetes mellitus Start:16-Jul-2020 Instruction Type:Patient Education Patient Instructions Indication:Vitamin D deficiency Start:16-Jul-2020 Instruction Type:Provider Instructions for Treatment How to access health informa tion online Indication:Nonsmoker Start:13-Apr-2020 Instruction Type:Patient Education How to access health informa tion online - Detail Indication:Nonsmoker Start:13-Apr-2020 Instruction Type:Patient Education Patient Instructions Indication:Uncontrolled type II diabetes mellitus Start:13-Apr-2020 Instruction Type:Provider Instructions for Treatment How to access health informa tion online Indication:Nonsmoker Start:27-Mar-2020 Instruction Type:Patient Education How to access health informa tion online - Detail Indication:Nonsmoker Start:27-Mar-2020 Instruction Type:Patient Education Patient Instructions Indication:Nonsmoker Start:27-Mar-2020 Instruction Type:Provider Instructions for Treatment How to access health informa tion online Indication:BMI 40.0-44.9, adult Start:21-Feb-2020 Instruction Type:Patient Education How to access health informa tion online - Detail Indication:BMI 40.0-44.9, adult Start:21-Feb-2020 Instruction Type:Patient Education Patient Instructions Indication:Mixed hyperlipidemia Start:21-Feb-2020 Instruction Type:Provider Instructions for Treatment How to access health informa tion online Indication:Nonsmoker Start:09-Jan-2020 Instruction Type:Patient Education How to access health informa tion online - Detail Indication:Nonsmoker Start:09-Jan-2020 Instruction Type:Patient Education Patient Instructions Indication:BMI 39.0-39.9,adult Start:09-Jan-2020 Instruction Type:Provider Instructions for Treatment How to access health informa tion online Indication:Nonsmoker Start:02-Jan-2020 Instruction Type:Patient Education How to access health informa tion online - Detail Indication:Nonsmoker Start:02-Jan-2020 Instruction Type:Patient Education Patient Instructions Indication:Mixed hyperlipidemia Start:02-Jan-2020 Instruction Type:Provider Instructions for Treatment How to access health informa tion online Indication:Uncontrolled type II diabetes mellitus Start:27-Dec-2019 Instruction Type:Patient Education How to access health informa tion online - Detail Indication:Uncontrolled type II diabetes mellitus Start:27-Dec-2019 Instruction Type:Patient Education Patient Instructions Indication:Uncontrolled type II diabetes mellitus Start:27-Dec-2019 Instruction Type:Provider Instructions for Treatment Name Dates Details Patient Instructions Indication:BMI 40.0-44.9, adult Start:28-Nov-2020 Instruction Type:Provider Instructions for Treatment How to Access Health Informa tion Online using Patient Portal and [employer]rd [employer] Apps Indication:BMI 40.0-44.9, adult Start:28-Nov-2020 Instruction Type:Patient Education Patient Instructions Indication:Nonsmoker Start:06-Nov-2020 Instruction Type:Provider Instructions for Treatment How to Access Health Informa tion Online using Patient Portal and [employer]rd [employer] Apps Indication:Nonsmoker Start:06-Nov-2020 Instruction Type:Patient Education How to access health informa tion online Indication:Nonsmoker Start:16-Oct-2020 Instruction Type:Patient Education How to access health informa tion online - Detail Indication:Nonsmoker Start:16-Oct-2020 Instruction Type:Patient Education Patient Instructions Indication:Nonsmoker Start:16-Oct-2020 Instruction Type:Provider Instructions for Treatment How to access health informa tion online Indication:Uncontrolled type II diabetes mellitus Start:16-Jul-2020 Instruction Type:Patient Education How to access health informa tion online - Detail Indication:Uncontrolled type II diabetes mellitus Start:16-Jul-2020 Instruction Type:Patient Education Patient Instructions Indication:Vitamin D deficiency Start:16-Jul-2020 Instruction Type:Provider Instructions for Treatment How to access health informa tion online Indication:Nonsmoker Start:13-Apr-2020 Instruction Type:Patient Education How to access health informa tion online - Detail Indication:Nonsmoker Start:13-Apr-2020 Instruction Type:Patient Education Patient Instructions Indication:Uncontrolled type II diabetes mellitus Start:13-Apr-2020 Instruction Type:Provider Instructions for Treatment How to access health informa tion online Indication:Nonsmoker Start:27-Mar-2020 Instruction Type:Patient Education How to access health informa tion online - Detail Indication:Nonsmoker Start:27-Mar-2020 Instruction Type:Patient Education Patient Instructions Indication:Nonsmoker Start:27-Mar-2020 Instruction Type:Provider Instructions for Treatment How to access health informa tion online Indication:BMI 40.0-44.9, adult Start:21-Feb-2020 Instruction Type:Patient Education How to access health informa tion online - Detail Indication:BMI 40.0-44.9, adult Start:21-Feb-2020 Instruction Type:Patient Education Patient Instructions Indication:Mixed hyperlipidemia Start:21-Feb-2020 Instruction Type:Provider Instructions for Treatment How to access health informa tion online Indication:Nonsmoker Start:09-Jan-2020 Instruction Type:Patient Education How to access health informa tion online - Detail Indication:Nonsmoker Start:09-Jan-2020 Instruction Type:Patient Education Patient Instructions Indication:BMI 39.0-39.9,adult Start:09-Jan-2020 Instruction Type:Provider Instructions for Treatment How to access health informa tion online Indication:Nonsmoker Start:02-Jan-2020 Instruction Type:Patient Education How to access health informa tion online - Detail Indication:Nonsmoker Start:02-Jan-2020 Instruction Type:Patient Education Patient Instructions Indication:Mixed hyperlipidemia Start:02-Jan-2020 Instruction Type:Provider Instructions for Treatment How to access health informa tion online Indication:Uncontrolled type II diabetes mellitus Start:27-Dec-2019 Instruction Type:Patient Education How to access health informa tion online - Detail Indication:Uncontrolled type II diabetes mellitus Start:27-Dec-2019 Instruction Type:Patient Education Patient Instructions Indication:Uncontrolled type II diabetes mellitus Start:27-Dec-2019 Instruction Type:Provider Instructions for Treatment Name Dates Details Patient Instructions Indication:BMI 40.0-44.9, adult Start:28-Nov-2020 Instruction Type:Provider Instructions for Treatment How to Access Health Informa tion Online using Patient Portal and [employer] Apps Indication:BMI 40.0-44.9, adult Start:28-Nov-2020 Instruction Type:Patient Education Patient Instructions Indication:Nonsmoker Start:06-Nov-2020 Instruction Type:Provider Instructions for Treatment How to Access Health Informa tion Online using Patient Portal and [employer] Apps Indication:Nonsmoker Start:06-Nov-2020 Instruction Type:Patient Education How to access health informa tion online Indication:Nonsmoker Start:16-Oct-2020 Instruction Type:Patient Education How to access health informa tion online - Detail Indication:Nonsmoker Start:16-Oct-2020 Instruction Type:Patient Education Patient Instructions Indication:Nonsmoker Start:16-Oct-2020 Instruction Type:Provider Instructions for Treatment How to access health informa tion online Indication:Uncontrolled type II diabetes mellitus Start:16-Jul-2020 Instruction Type:Patient Education How to access health informa tion online - Detail Indication:Uncontrolled type II diabetes mellitus Start:16-Jul-2020 Instruction Type:Patient Education Patient Instructions Indication:Vitamin D deficiency Start:16-Jul-2020 Instruction Type:Provider Instructions for Treatment How to access health informa tion online Indication:Nonsmoker Start:13-Apr-2020 Instruction Type:Patient Education How to access health informa tion online - Detail Indication:Nonsmoker Start:13-Apr-2020 Instruction Type:Patient Education Patient Instructions Indication:Uncontrolled type II diabetes mellitus Start:13-Apr-2020 Instruction Type:Provider Instructions for Treatment How to access health informa tion online Indication:Nonsmoker Start:27-Mar-2020 Instruction Type:Patient Education How to access health informa tion online - Detail Indication:Nonsmoker Start:27-Mar-2020 Instruction Type:Patient Education Patient Instructions Indication:Nonsmoker Start:27-Mar-2020 Instruction Type:Provider Instructions for Treatment How to access health informa tion online Indication:BMI 40.0-44.9, adult Start:21-Feb-2020 Instruction Type:Patient Education How to access health informa tion online - Detail Indication:BMI 40.0-44.9, adult Start:21-Feb-2020 Instruction Type:Patient Education Patient Instructions Indication:Mixed hyperlipidemia Start:21-Feb-2020 Instruction Type:Provider Instructions for Treatment How to access health informa tion online Indication:Nonsmoker Start:09-Jan-2020 Instruction Type:Patient Education How to access health informa tion online - Detail Indication:Nonsmoker Start:09-Jan-2020 Instruction Type:Patient Education Patient Instructions Indication:BMI 39.0-39.9,adult Start:09-Jan-2020 Instruction Type:Provider Instructions for Treatment How to access health informa tion online Indication:Nonsmoker Start:02-Jan-2020 Instruction Type:Patient Education How to access health informa tion online - Detail Indication:Nonsmoker Start:02-Jan-2020 Instruction Type:Patient Education Patient Instructions Indication:Mixed hyperlipidemia Start:02-Jan-2020 Instruction Type:Provider Instructions for Treatment How to access health informa tion online Indication:Uncontrolled type II diabetes mellitus Start:27-Dec-2019 Instruction Type:Patient Education How to access health informa tion online - Detail Indication:Uncontrolled type II diabetes mellitus Start:27-Dec-2019 Instruction Type:Patient Education Patient Instructions Indication:Uncontrolled type II diabetes mellitus Start:27-Dec-2019 Instruction Type:Provider Instructions for Treatment Name Dates Details Patient Instructions Indication:BMI 40.0-44.9, adult Start:28-Nov-2020 Instruction Type:Provider Instructions for Treatment How to Access Health Informa tion Online using Patient Portal and [employer] Apps Indication:BMI 40.0-44.9, adult Start:28-Nov-2020 Instruction Type:Patient Education Patient Instructions Indication:Nonsmoker Start:06-Nov-2020 Instruction Type:Provider Instructions for Treatment How to Access Health Informa tion Online using Patient Portal and [employer] Apps Indication:Nonsmoker Start:06-Nov-2020 Instruction Type:Patient Education How to access health informa tion online Indication:Nonsmoker Start:16-Oct-2020 Instruction Type:Patient Education How to access health informa tion online - Detail Indication:Nonsmoker Start:16-Oct-2020 Instruction Type:Patient Education Patient Instructions Indication:Nonsmoker Start:16-Oct-2020 Instruction Type:Provider Instructions for Treatment How to access health informa tion online Indication:Uncontrolled type II diabetes mellitus Start:16-Jul-2020 Instruction Type:Patient Education How to access health informa tion online - Detail Indication:Uncontrolled type II diabetes mellitus Start:16-Jul-2020 Instruction Type:Patient Education Patient Instructions Indication:Vitamin D deficiency Start:16-Jul-2020 Instruction Type:Provider Instructions for Treatment How to access health informa tion online Indication:Nonsmoker Start:13-Apr-2020 Instruction Type:Patient Education How to access health informa tion online - Detail Indication:Nonsmoker Start:13-Apr-2020 Instruction Type:Patient Education Patient Instructions Indication:Uncontrolled type II diabetes mellitus Start:13-Apr-2020 Instruction Type:Provider Instructions for Treatment How to access health informa tion online Indication:Nonsmoker Start:27-Mar-2020 Instruction Type:Patient Education How to access health informa tion online - Detail Indication:Nonsmoker Start:27-Mar-2020 Instruction Type:Patient Education Patient Instructions Indication:Nonsmoker Start:27-Mar-2020 Instruction Type:Provider Instructions for Treatment How to access health informa tion online Indication:BMI 40.0-44.9, adult Start:21-Feb-2020 Instruction Type:Patient Education How to access health informa tion online - Detail Indication:BMI 40.0-44.9, adult Start:21-Feb-2020 Instruction Type:Patient Education Patient Instructions Indication:Mixed hyperlipidemia Start:21-Feb-2020 Instruction Type:Provider Instructions for Treatment How to access health informa tion online Indication:Nonsmoker Start:09-Jan-2020 Instruction Type:Patient Education How to access health informa tion online - Detail Indication:Nonsmoker Start:09-Jan-2020 Instruction Type:Patient Education Patient Instructions Indication:BMI 39.0-39.9,adult Start:09-Jan-2020 Instruction Type:Provider Instructions for Treatment How to access health informa tion online Indication:Nonsmoker Start:02-Jan-2020 Instruction Type:Patient Education How to access health informa tion online - Detail Indication:Nonsmoker Start:02-Jan-2020 Instruction Type:Patient Education Patient Instructions Indication:Mixed hyperlipidemia Start:02-Jan-2020 Instruction Type:Provider Instructions for Treatment How to access health informa tion online Indication:Uncontrolled type II diabetes mellitus Start:27-Dec-2019 Instruction Type:Patient Education How to access health informa tion online - Detail Indication:Uncontrolled type II diabetes mellitus Start:27-Dec-2019 Instruction Type:Patient Education Patient Instructions Indication:Uncontrolled type II diabetes mellitus Start:27-Dec-2019 Instruction Type:Provider Instructions for Treatment Name Dates Details How to access health informa tion online Indication:Nonsmoker Start:16-Oct-2020 Instruction Type:Patient Education How to access health informa tion online - Detail Indication:Nonsmoker Start:16-Oct-2020 Instruction Type:Patient Education Patient Instructions Indication:Nonsmoker Start:16-Oct-2020 Instruction Type:Provider Instructions for Treatment How to access health informa tion online Indication:Uncontrolled type II diabetes mellitus Start:16-Jul-2020 Instruction Type:Patient Education How to access health informa tion online - Detail Indication:Uncontrolled type II diabetes mellitus Start:16-Jul-2020 Instruction Type:Patient Education Patient Instructions Indication:Vitamin D deficiency Start:16-Jul-2020 Instruction Type:Provider Instructions for Treatment How to access health informa tion online Indication:Nonsmoker Start:13-Apr-2020 Instruction Type:Patient Education How to access health informa tion online - Detail Indication:Nonsmoker Start:13-Apr-2020 Instruction Type:Patient Education Patient Instructions Indication:Uncontrolled type II diabetes mellitus Start:13-Apr-2020 Instruction Type:Provider Instructions for Treatment How to access health informa tion online Indication:Nonsmoker Start:27-Mar-2020 Instruction Type:Patient Education How to access health informa tion online - Detail Indication:Nonsmoker Start:27-Mar-2020 Instruction Type:Patient Education Patient Instructions Indication:Nonsmoker Start:27-Mar-2020 Instruction Type:Provider Instructions for Treatment How to access health informa tion online Indication:BMI 40.0-44.9, adult Start:21-Feb-2020 Instruction Type:Patient Education How to access health informa tion online - Detail Indication:BMI 40.0-44.9, adult Start:21-Feb-2020 Instruction Type:Patient Education Patient Instructions Indication:Mixed hyperlipidemia Start:21-Feb-2020 Instruction Type:Provider Instructions for Treatment How to access health informa tion online Indication:Nonsmoker Start:09-Jan-2020 Instruction Type:Patient Education How to access health informa tion online - Detail Indication:Nonsmoker Start:09-Jan-2020 Instruction Type:Patient Education Patient Instructions Indication:BMI 39.0-39.9,adult Start:09-Jan-2020 Instruction Type:Provider Instructions for Treatment How to access health informa tion online Indication:Nonsmoker Start:02-Jan-2020 Instruction Type:Patient Education How to access health informa tion online - Detail Indication:Nonsmoker Start:02-Jan-2020 Instruction Type:Patient Education Patient Instructions Indication:Mixed hyperlipidemia Start:02-Jan-2020 Instruction Type:Provider Instructions for Treatment How to access health informa tion online Indication:Uncontrolled type II diabetes mellitus Start:27-Dec-2019 Instruction Type:Patient Education How to access health informa tion online - Detail Indication:Uncontrolled type II diabetes mellitus Start:27-Dec-2019 Instruction Type:Patient Education Patient Instructions Indication:Uncontrolled type II diabetes mellitus Start:27-Dec-2019 Instruction Type:Provider Instructions for Treatment Name Dates Details Patient Instructions Indication:Nonsmoker Start:27-Feb-2021 Instruction Type:Provider Instructions for Treatment How to Access Health Informa tion Online using Patient Portal and [employer] Apps Indication:Nonsmoker Start:27-Feb-2021 Instruction Type:Patient Education Patient Instructions Indication:BMI 40.0-44.9, adult Start:28-Nov-2020 Instruction Type:Provider Instructions for Treatment How to Access Health Informa tion Online using Patient Portal and [employer] Apps Indication:BMI 40.0-44.9, adult Start:28-Nov-2020 Instruction Type:Patient Education Patient Instructions Indication:Nonsmoker Start:06-Nov-2020 Instruction Type:Provider Instructions for Treatment How to Access Health Informa tion Online using Patient Portal and [employer] Apps Indication:Nonsmoker Start:06-Nov-2020 Instruction Type:Patient Education How to access health informa tion online Indication:Nonsmoker Start:16-Oct-2020 Instruction Type:Patient Education How to access health informa tion online - Detail Indication:Nonsmoker Start:16-Oct-2020 Instruction Type:Patient Education Patient Instructions Indication:Nonsmoker Start:16-Oct-2020 Instruction Type:Provider Instructions for Treatment How to access health informa tion online Indication:Uncontrolled type II diabetes mellitus Start:16-Jul-2020 Instruction Type:Patient Education How to access health informa tion online - Detail Indication:Uncontrolled type II diabetes mellitus Start:16-Jul-2020 Instruction Type:Patient Education Patient Instructions Indication:Vitamin D deficiency Start:16-Jul-2020 Instruction Type:Provider Instructions for Treatment How to access health informa tion online Indication:Nonsmoker Start:13-Apr-2020 Instruction Type:Patient Education How to access health informa tion online - Detail Indication:Nonsmoker Start:13-Apr-2020 Instruction Type:Patient Education Patient Instructions Indication:Uncontrolled type II diabetes mellitus Start:13-Apr-2020 Instruction Type:Provider Instructions for Treatment How to access health informa tion online Indication:Nonsmoker Start:27-Mar-2020 Instruction Type:Patient Education How to access health informa tion online - Detail Indication:Nonsmoker Start:27-Mar-2020 Instruction Type:Patient Education Patient Instructions Indication:Nonsmoker Start:27-Mar-2020 Instruction Type:Provider Instructions for Treatment How to access health informa tion online Indication:BMI 40.0-44.9, adult Start:21-Feb-2020 Instruction Type:Patient Education How to access health informa tion online - Detail Indication:BMI 40.0-44.9, adult Start:21-Feb-2020 Instruction Type:Patient Education Patient Instructions Indication:Mixed hyperlipidemia Start:21-Feb-2020 Instruction Type:Provider Instructions for Treatment How to access health informa tion online Indication:Nonsmoker Start:09-Jan-2020 Instruction Type:Patient Education How to access health informa tion online - Detail Indication:Nonsmoker Start:09-Jan-2020 Instruction Type:Patient Education Patient Instructions Indication:BMI 39.0-39.9,adult Start:09-Jan-2020 Instruction Type:Provider Instructions for Treatment How to access health informa tion online Indication:Nonsmoker Start:02-Jan-2020 Instruction Type:Patient Education How to access health informa tion online - Detail Indication:Nonsmoker Start:02-Jan-2020 Instruction Type:Patient Education Patient Instructions Indication:Mixed hyperlipidemia Start:02-Jan-2020 Instruction Type:Provider Instructions for Treatment How to access health informa tion online Indication:Uncontrolled type II diabetes mellitus Start:27-Dec-2019 Instruction Type:Patient Education How to access health informa tion online - Detail Indication:Uncontrolled type II diabetes mellitus Start:27-Dec-2019 Instruction Type:Patient Education Patient Instructions Indication:Uncontrolled type II diabetes mellitus Start:27-Dec-2019 Instruction Type:Provider Instructions for Treatment Name Dates Details Patient Instructions Indication:Nonsmoker Start:27-Feb-2021 Instruction Type:Provider Instructions for Treatment How to Access Health Informa tion Online using Patient Portal and [employer] Indication:Nonsmoker Start:27-Feb-2021 Instruction Type:Patient Education Patient Instructions Indication:BMI 40.0-44.9, adult Start:28-Nov-2020 Instruction Type:Provider Instructions for Treatment How to Access Health Informa tion Online using Patient Portal and [employer] Indication:BMI 40.0-44.9, adult Start:28-Nov-2020 Instruction Type:Patient Education Patient Instructions Indication:Nonsmoker Start:06-Nov-2020 Instruction Type:Provider Instructions for Treatment How to Access Health Informa tion Online using Patient Portal and [employer] Indication:Nonsmoker Start:06-Nov-2020 Instruction Type:Patient Education How to access health informa tion online Indication:Nonsmoker Start:16-Oct-2020 Instruction Type:Patient Education How to access health informa tion online - Detail Indication:Nonsmoker Start:16-Oct-2020 Instruction Type:Patient Education Patient Instructions Indication:Nonsmoker Start:16-Oct-2020 Instruction Type:Provider Instructions for Treatment How to access health informa tion online Indication:Uncontrolled type II diabetes mellitus Start:16-Jul-2020 Instruction Type:Patient Education How to access health informa tion online - Detail Indication:Uncontrolled type II diabetes mellitus Start:16-Jul-2020 Instruction Type:Patient Education Patient Instructions Indication:Vitamin D deficiency Start:16-Jul-2020 Instruction Type:Provider Instructions for Treatment How to access health informa tion online Indication:Nonsmoker Start:13-Apr-2020 Instruction Type:Patient Education How to access health informa tion online - Detail Indication:Nonsmoker Start:13-Apr-2020 Instruction Type:Patient Education Patient Instructions Indication:Uncontrolled type II diabetes mellitus Start:13-Apr-2020 Instruction Type:Provider Instructions for Treatment How to access health informa tion online Indication:Nonsmoker Start:27-Mar-2020 Instruction Type:Patient Education How to access health informa tion online - Detail Indication:Nonsmoker Start:27-Mar-2020 Instruction Type:Patient Education Patient Instructions Indication:Nonsmoker Start:27-Mar-2020 Instruction Type:Provider Instructions for Treatment How to access health informa tion online Indication:BMI 40.0-44.9, adult Start:21-Feb-2020 Instruction Type:Patient Education How to access health informa tion online - Detail Indication:BMI 40.0-44.9, adult Start:21-Feb-2020 Instruction Type:Patient Education Patient Instructions Indication:Mixed hyperlipidemia Start:21-Feb-2020 Instruction Type:Provider Instructions for Treatment How to access health informa tion online Indication:Nonsmoker Start:09-Jan-2020 Instruction Type:Patient Education How to access health informa tion online - Detail Indication:Nonsmoker Start:09-Jan-2020 Instruction Type:Patient Education Patient Instructions Indication:BMI 39.0-39.9,adult Start:09-Jan-2020 Instruction Type:Provider Instructions for Treatment How to access health informa tion online Indication:Nonsmoker Start:02-Jan-2020 Instruction Type:Patient Education How to access health informa tion online - Detail Indication:Nonsmoker Start:02-Jan-2020 Instruction Type:Patient Education Patient Instructions Indication:Mixed hyperlipidemia Start:02-Jan-2020 Instruction Type:Provider Instructions for Treatment How to access health informa tion online Indication:Uncontrolled type II diabetes mellitus Start:27-Dec-2019 Instruction Type:Patient Education How to access health informa tion online - Detail Indication:Uncontrolled type II diabetes mellitus Start:27-Dec-2019 Instruction Type:Patient Education Patient Instructions Indication:Uncontrolled type II diabetes mellitus Start:27-Dec-2019 Instruction Type:Provider Instructions for Treatment Chief Complaint and Reason for Visit Chief Complaint Admit Date 3 M FU February 08, 2025 4:0 4pm 8 mo f/u February 13, 2025 10: 45am S/O February 20, 2025 12:1 8pm Diabetes March 13, 2025 9:5 9am 3 M FU May 29, 2025 1:49 pm Reason for Visit Admit Date Essential (primary) hypertension January [id number] 4:04pm Hypothyroidism February 08, 2025 4:0 4pm Osteoporosis February 08, 2025 4:0 4pm Persistent atrial fibrillation January 4:04pm 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 February 08, 2025 4:04pm Type 2 diabetes mellitus February 08 4:04pm Essential (primary) hypertension January [id number] 10:45am Hyperlipidemia February 13, 2025 10: 45am Persistent atrial fibrillation January 10:45am S/P TAVR (transcatheter aortic valve rep lacement) February 13, 2025 10:45am Type 2 diabetes mellitus February 13 10:45am Chronic kidney disease March 13, 2025 9:59am Essential (primary) hypertension February [id number] 9:59am Hyperlipidemia March 13, 2025 9:5 9am Hypothyroidism March 13, 2025 9:5 9am Microalbuminuria March 13, 2025 9:5 9am Obesity March 13, 2025 9:5 9am Type 2 diabetes mellitus March 13 9:59am Advance Directives No Advanced Directives Records Found Advance Directive Response Recorded Date/ Time Living Will Yes December 16 9:59pm Do you have a Healthcare Power of Freight [place]? Yes December 16, 2024 9:59pm Advance Directives Yes May 29 3:01pm Summary Purpose Additional Source Comments Source Comments (unrecognize d section and content) In the event this informatio n is protected by the Federal Confidentiality of Alcohol and Drug Abuse Patient Records regulations: The Federal rules restrict any use of the information to criminally investigate or prosecute any alcohol or drug abuse patient.[facility] Teams (unrecognized sec tion and content) Team Status: Active Member Role/Relationship Status Dates Dr. Terrell Schafer MD Primary Care Provider Active Team Status: Active Member Role/Relationship Status Dates Dr. Terrell Schafer MD Primary Care Provider Active Start: January 29, 2025 Dr. Terrell Schafer MD Attending Provider Active Start: January 29, 2025 Team Status: Inactive Member Role/Relationship Status Dates Dr. Terrell Schafer MD Primary Care Provider Active Start: February 08, 2025 End: February 08, 2025 Dr. Terrell Schafer MD Attending Provider Active Start: February 08, 2025 End: February 08, 2025 Dr. Terrell Schafer MD Referring Provider Active Start: February 08, 2025 End: February 08, 2025 Team Status: Inactive Member Role/Relationship Status Dates Dr. Terrell Schafer MD Primary Care Provider Active Start: February 13, 2025 End: February 13, 2025 Dr. Terrell Schafer MD Referring Provider Active Start: February 13, 2025 End: February 13, 2025 Elkin Beltran COLLAR SHAPER OPERATOR, COLLAR SHAPER OPERATOR-C Attending Provider Active S tart: February 13, 2025 End: February 13, 2025 Team Status: Inactive Member Role/Relationship Status Dates Dr. Joel Judge MD Attending Provider Active S tart: February 20, 2025 End: March 15, 2025 Dr. Joel Judge MD Referring Provider Active S tart: February 20, 2025 End: March 15, 2025 Dr. Terrell Schafer MD Primary Care Provider Active Start: February 20, 2025 End: March 15, 2025 Team Status: Inactive Member Role/Relationship Status Dates Dr. Terrell Schafer MD Primary Care Provider Active Start: March 13, 2025 End: March 13, 2025 Dr. Terrell Schafer MD Referring Provider Active Start: March 13, 2025 End: March 13, 2025 SEAN Leslie Attending Provider Active Start: March 13, 2025 End: March 13, 2025 Team Status: Active Member Role/Relationship Status Dates Dr. Terrell Schafer MD Primary Care Provider Active Start: April 17, 2025 Dr. Terrell Schafer MD Attending Provider Active Start: April 17, 2025 Team Status: Active Member Role/Relationship Status Dates Dr. Terrell Schafer MD Primary Care Provider Active Start: April 24, 2025 Dr. Terrell Schafer MD Attending Provider Active Start: April 24, 2025 Team Status: Active Member Role/Relationship Status Dates Dr. Terrell Schafer MD Primary Care Provider Active Start: May 08, 2025 Dr. Terrell Schafer MD Attending Provider Active Start: May 08, 2025 Team Status: Inactive Member Role/Relationship Status Dates Dr. Terrell Schafer MD Primary Care Provider Active Start: May 29, 2025 End: May 29, 2025 Dr. Terrell Schafer MD Attending Provider Active Start: May 29, 2025 End: May 29, 2025 Dr. Terrell Schafer MD Referring Provider Active Start: May 29, 2025 End: May 29, 2025 Goals (unrecognized section and content) Goals may be documented in a n alternate section INFORMATION SOURCE (unrecogn ized section and content) DATE CREATED AUTHOR 06/05/2025 [facility] FOR RECORDS PERTAINING TO PATIENTS WHO ARE OR HAVE BEEN ENROLLED IN A CHEMICAL DEPENDENCY/SUBSTANCEABUSE PROGRAM, SOME INFORMATION MAY BE OMITTED. This clinical summary was aggregated from multiple sources. Caution should be exercised in using it in the provision of clinical care. This summary normalizes information from multiple sources, and as a consequence, information in this document may materially change the coding, format and clinical context of patient data. In addition, data may be omitted in some cases. CLINICAL DECISIONS SHOULD BE BASED ON THE PRIMARY CLINICAL RECORDS. [facility] [employer] provides no warranty or guarantee of the accuracy or completeness of information in this document.
[2025-06-06] MEDS: 0.9% Saline Lock 10 ML Syringe IV (22:55)
[2025-06-06] MEDS: 0.9% Normal Saline (1000mL) 1,000 ML 100 ML IV (22:56)
[2025-06-06 23:19] LABS: Procalcitonin 0.03 ng/mL (<=0.10)
[2025-06-07] VITALS (9 sets, daily range): BP systolic 140–170; BP diastolic 51–115; PULSE 85–164; RESP 16–20; TEMP 36.1–36.6; O2SAT 92–99; BMI 37.3
[2025-06-07] MEDS: Azithromycin 500 MG in 0.9% Normal Saline (250mL Bag) 250 ML 255 MG IV (00:26)
--- NOTE | 2025-06-07 05:38 | RAD_ITS ---
PROCEDURE: CHEST 1 VIEW (PORTABLE) 06/07/2025 REASON FOR EXAM: DYSPNEA, COUGH TECHNIQUE: Frontal view of the chest. COMPARISON: June 06, 2025 FINDINGS: A stent is noted overlying the mid heart. There is cardiomegaly with prominent central vascular markings and increased interstitial markings consistent with CHF. An overlying patchy consolidation is present in the right upper lung and left perihilar region. There is no pneumothorax. There is no significant effusion. Aortic calcifications are visible. There is no acute bony abnormality. RAD/Chest 1 View (Portable) IMPRESSION: There is cardiomegaly with prominent central vascular markings and increased in terstitial markings consistent with CHF. An overlying patchy consolidation is present in the right upper lung and left p erihilar region. Reading Location: [facility]
[2025-06-07 06:52] LABS: Hematocrit 32.4 % (37-47); Hemoglobin 10.7 g/dL (12.0-15.0); Immature Granulocytes Count 0.040 X10^3/uL (0.0-0.0); Mean Corp Hgb Conc 33.0 g/dL (32-36); Mean Corpuscular Volume 90.3 fL (81-99); Mean Platelet Vol. 10.5 fl (6.2-12.0); NRBC Flagged by Analyzer 0 % (0-5); Platelet Count 141 K/mm3 (150-450); RBC Distribution Width CV 14.3 % (11.6-14.6); RBC Distribution Width SD 47.5 fl (35.1-43.9); Red Blood Count 3.59 M/mm3 (4.2-5.4); White Blood Count 6.1 K/mm3 (4.4-11.0)
[2025-06-07 07:15] LABS: Prothrombin Time (Protime)PT. 17.3 SECONDS (11.7-14.9)
[2025-06-07 07:43] LABS: AST(SGOT) 21 U/L (<=31); Alanine Aminotransfer ALT/SGPT 13 U/L (<=34); Albumin, Serum 3.5 g/dL (3.4-4.8); Alkaline Phosphatase 61 U/L (35-104); Anion Gap 11 (5-15); BUN 14 mg/dL (4-19); BUN/Creat Ratio 21.6 RATIO (10-20); Calcium,Total 8.8 mg/dL (7.6-11.0); Carbon Dioxide 25.7 mmol/L (21.0-32.0); Chloride 102 mmol/L (98-108); Estimated Creatinine Clearance 63.05 ml/min (50-250); Globulin 2.5 g/dL (2.2-4.2); Glucose 167 mg/dL (70-99); Potassium 3.8 mmol/L (3.3-5.1)
[2025-06-07] MEDS: Furosemide 20 MG/2 ML VIAL IV (09:44)
[2025-06-07 10:33] LABS: Pro- Brain NATRIURETIC PEPTIDE 3397 pg/mL (<=1800)
[2025-06-07] MEDS: Acetaminophen/Butalbital/Caffe 1 Tablet 2 TABLET PO (15:21)
--- NOTE | 2025-06-07 17:40 | CASEMGMT ---
Social Work Discharge planning consult received for this patient.? Noted that patient has a history of dementia and presented with confusion/altered mental status.? Patient sleeping soundly when social work presented to room this afternoon.? Confirmed with nursing that patient is confused. Called the patient's son and left a message to return this documentation writer's call - Unable to complete initial discharge planning assessment due to patient's altered mental status and inability to make contact with the family. Plan: Will continue to try to engage with the patient/family for completion of discharge planning assessment and initiation of discharge planning. -AMBREEN Domingo
--- NOTE | 2025-06-07 18:57 | PN.HOSP_ITS ---
Reason for Visit Chief Complaint: Increased confusion, malaise Subjective Subjective Patient was seen and examined today, I talked with her family was in the room at the time of my examination this morning. Patient is not agitated at the time of my exam, she is complaining of bladder discomfort however due to her Ayala, I gave the order to nursing to discontinue the Ayala catheter. In reviewing her chart this morning, I feel that the most likely explanation for the patient's hypoxia is congestive heart failure not pneumonia, I decided to stop her antibiotics and placed her on IV Lasix. Her INR is low and I have adjusted the dose of her warfarin. Objective Data Objective Data Vital Signs: Vital Signs Temp Pulse Resp BP Pulse Ox O2 Del Method O2 Flow Rate 97.8 F 86 16 161/91 H 92 Room Air 2 06/07/25 13:18 06/07/25 13:18 06/07/25 13:18 06/07/25 13:18 06/07/25 13:18 06/07/25 13:18 06/07/25 07:52 Oxygen Flow Rate (L/min) 2 Oxygen Delivery Method Room Air Weight: 101.9 kg Body Mass Index (BMI) 37.3 Intake & Output: Intake and Output for Last 24 Hours 06/05/25 06/06/25 06/07/25 23:59 23:59 23:59 Intake Total 1050 / 1050 1255 / 1255 Output Total 850 / 850 1250 / 1250 Balance 200 / 200 5 / 5 Lab / Micro Data 06/07/25 06:09 06/10/25 06:00 Labs: Laboratory Results - last 24 hr 06/06/25 18:30: WBC 9.2, RBC 4.29, Hgb 12.8, Hct 38.6, MCV 90.0, MCH 29.8, MCHC 33.2, RDW Std Deviation 47.7 H, RDW Coeff of [place] 14.6, Plt Count 176, MPV 10.6, Immature Gran % (Auto) 0.400, Neut % (Auto) 77.7 H, Lymph % (Auto) 11.1 L, [place] % (Auto) 9.5, Eos % (Auto) 1.0, Baso % (Auto) 0.3, Absolute Neuts (auto) 7.2, Absolute Lymphs (auto) 1.03, Nucleated RBC % 0, PT 18.0 H, INR 1.5, APTT 28.5, Sodium 138, Potassium 3.9, Chloride 98, Carbon Dioxide 24.3, Anion Gap 15, BUN 18, Creatinine 0.80, Estim Creat Clear Calc 63.09, Est GFR (MDRD) Non-Af 73, B UN/Creatinine Ratio 22.1 H, Glucose 239 H, Calcium 9.9, Total Bilirubin 1.48 H, AST 26, ALT 16, Alkaline Phosphatase 81, Total Protein 7.2, Albumin 4.4, Globulin 2.8, Albumin/Globulin Ratio 1.5, Urine Color Straw, Urine Clarity Clear, Urine pH 6.0, Ur Specific [place] 1.015, Urine Protein 100 H, Urine Glucose (UA) 50 H, Urine Ketones 15 H, Urine Occult Blood 10 H, Urine Nitrite Negative, Urine Bilirubin Negative, Urine Urobilinogen Normal, Ur Leukocyte Esterase Negative, Urine RBC 0-5 SEEN, Urine WBC 0-5 SEEN, Ur Squamous Epith Cells 0-5 SEEN, Urine Bacteria 0 SEEN, Hyaline Casts 0-5 SEEN, Urine Mucus 0 SEEN 06/06/25 18:35: Lactic Acid 1.8 06/06/25 20:59: Magnesium 1.6, Ammonia 14.8 06/06/25 21:59: Procalcitonin 0.03 06/06/25 22:36: POC Glucose 214 H 06/07/25 06:04: Sodium 139, Potassium 3.8, Chloride 102, Carbon Dioxide 25.7, Anion Gap 11, BUN 14, Creatinine 0.64 L, Estim Creat Clear Calc 63.05, Est GFR (MDRD) Non-Af 88, BUN/Creatinine Ratio 21.6 H, Glucose 167 H, Calcium 8.8, Total Bilirubin 1.22, AST 21, ALT 13, Alkaline Phosphatase 61, NT pro BNP II 3397 H, Total Protein 6.1, Albumin 3.5, Globulin 2.5, Albumin/Globulin Ratio 1.4, TSH 0.941 06/07/25 06:09: WBC 6.1, RBC 3.59 L, Hgb 10.7 L, Hct 32.4 L, MCV 90.3, MCH 29.8, MCHC 33.0, RDW Std Deviation 47.5 H, RDW Coeff of [place] 14.3, Plt Count 141 L, MPV 10.5, Immature Gran % (Auto) 0.700, Neut % (Auto) 63.8, Lymph % (Auto) 20.9, M matty % (Auto) 12.0 H, Eos % (Auto) 2.3, Baso % (Auto) 0.3, Absolute Neuts (auto) 3.9, Absolute Lymphs (auto) 1.27, Nucleated RBC % 0, PT 17.3 H, INR 1.4 06/07/25 06:34: POC Glucose 149 H Micro: Microbiology 06/06/25 23:10 Mucosa - Nasopharyngeal Respiratory Panel (PCR) - Final 06/06/25 23:11 Nasal Secretion MRSA (PCR) - Final 06/07/25 01:35 Urine Catheter - Ayala Legionella Antigen - Final 06/07/25 01:35 Urine Catheter - Ayala Streptococcus pneumoniae Antigen (M - Final ABG Data ABG results: ABG 06/06/25 21:14 Specimen Type CARSON Sample Site Not entered VBG pH 7.38 VBG pO2 40 VBG HCO3 29 H VBG Total CO2 31 VBG O2 Sat (Calc) 73 H VBG Base Excess 4 H POC Mix VBG pCO2 Pt Tmp 48.7 O2 Delivery Device Not entered Radiography Diagnostic Testing: Radiology Impression Brain CT 06/06/25 18:28 IMPRESSION: No acute intracranial abnormality. Reading Location: [facility] Chest X-Ray 06/06/25 19:04 IMPRESSION: No focal consolidations. Mild pulmonary vascular congestion and interstitial edema. Mild cardiomegaly. Reading Location: [facility] Chest X-Ray 06/07/25 05:38 IMPRESSION: There is cardiomegaly with prominent central vascular markings and increased interstitial markings consistent with CHF. An overlying patchy consolidation is present in the right upper lung and left perihilar region. Reading Location: [facility] Rhythm Strip Rhythm Strip: A-fib Rate: 108 Ectopy: None Physical Exam Const alert and no apparent distress General Appearance: well kempt and well developed Orientation / Consciousness: awake HEENT normocephalic, head/scalp atraumatic and moist oral mucous membranes Eyes PERRL, EOMs intact bilaterally and conjunctivae normal Neck supple, no JVD, thyroid normal and no carotid bruits General: trachea midline Resp normal respiratory effort, no retractions, no use of accessory muscles and clear to auscultation bilaterally Auscultation: Negative for rales, rhonchi or wheezes Cardio regular rate, regular rhythm, S1 normal heart sound, S2 normal heart sound, no murmurs, no rub and no gallops GI normal to inspection, nondistended, normoactive bowel sounds, soft to palpation, non-tender and non-distended Extremity no clubbing, cyanosis or edema Skin no rashes or lesions noted General Skin Exam: no breakdown Neuro CN's II-XII intact bilaterally, moves all extremities, no focal motor deficits and no sensory deficits noted Neuro Narrative: Patient is confused Sensorium / Orientation: awake and alert Speech: speech normal Psych Psych Narrative: Patient is alert but confused Assessment & Plan Assessment/Plan (1) History of dementia: PLAN: Plan 1. Altered mental status with hypoxia and generalized debility-I feel the patient does have an element of congestive heart failure and I placed her on IV Lasix. I think is unlikely she has pneumonia and I took her off her antibiotics. She will be seen by PT and OT. Most likely she will need placement in senior living facility for rehab services. #2 paroxysmal atrial fibrillation-patient is on Coumadin currently and metoprolol #3 chronic dementia-complicates care, management, recovery, and prognosis #4 valvular heart disease-patient has a bioprosthetic aortic valve #5 hypothyroidism-patient will remain on Synthroid #6 essential hypertension-patient will remain on her present medications #7 hyperlipidemia-patient will remain on her statin Total clinical time spent by myself addressing the patient's medical issues, reviewing all of her data, and collaborating with the patient's care team: 50 minutes Charges/Coding Visit Charges Inpatient E&M: [id number] [facility] Hosp L3
--- NOTE | 2025-06-07 20:40 | EKG12_ITS ---
Test Reason : STROKE ALERT Blood Pressure : */* mmHG Vent. Rate : 105 BPM Atrial Rate : * BPM P-R Int : * ms QRS Dur : 142 ms QT Int : 350 ms P-R-T Axes : * 99 149 degrees QTcB Int : 462 ms Poor data quality, interpretation may be adversely affected Atrial fibrillation with rapid ventricular response Rightward axis Non-specific intra-ventricular conduction block T wave abnormality, consider lateral ischemia Abnormal ECG When compared with ECG of 06-Jun-2025 19:22, QT has shortened Confirmed by DANIEL WEBB, JOSE ([id number]), commissioning editor PATRICK DE LA VEGA ([id number]) on 06/09/2025 1:21:02 PM Referred By: Alexys Confirmed By: JOSE SANCHEZ MD
--- NOTE | 2025-06-07 20:50 | CT_ITS ---
PROCEDURE: STROKE CTA HEAD AND NECK W/CON 06/07/2025 REASON FOR EXAM: STROKE TECHNIQUE: STROKE CTA HEAD AND NECK W/CON Multiplanar Sagittal and Coronal images were obtained. CONTRAST: Isovue 370 VOLUME: 100 mL One or more dose reduction techniques were used (e.g., Automated exposure control, adjustment of the mA and/or kV according to patient size, use of iterative reconstruction technique). RADIATION DOSE SUMMARY: CTDlvol: 50 mGy DLP: 758 mGycm COMPARISON: Head CT same day FINDINGS: There is significant motion artifact, particularly in the neck region, which is nondiagnostic. Small bilateral pleural effusions. Lung bases are otherwise clear. Unremarkable superior mediastinum. Cervical spine scoliosis and degeneration. Neck soft tissues show no acute findings. No abnormal brain enhancement. Unremarkable thoracic arch. The common carotid arteries, extracranial internal carotid arteries, and vertebral arteries are patent. Mild calcified plaque. Intracranial arteries are patent. There is mild/moderate calcified plaque in the cavernous sinus portions of each ICA, without high-grade stenosis. The dural venous sinuses are patent. No high-grade stenosis, thrombosis, dissection or aneurysm. CT/STROKE CTA Head AND Neck W/Con IMPRESSION: Exam is nondiagnostic, particularly in the neck region. However, there is no e vidence for acute cervical or intracranial arterial pathology. Patent dural venous sinuses. Recommend repeat imaging as clinically determined. Reading Location: [place] [id number]
--- NOTE | 2025-06-07 20:51 | CT_ITS ---
PROCEDURE: STROKE BRAIN/HEAD WITHOUT CONT 06/07/2025 REASON FOR EXAM: STROKE ALERT TECHNIQUE: STROKE BRAIN/HEAD WITHOUT CONT Coronal and Sagittal reconstruction series were provided. One or more dose reduction techniques were used (e.g., Automated exposure control, adjustment of the mA and/or kV according to patient size, use of iterative reconstruction technique. RADIATION DOSE SUMMARY: DLP: 1592 mGycm COMPARISON: 06/06/25 FINDINGS: There is no acute infarct, intracranial hemorrhage, or mass effect. There is no hydrocephalus or significant midline shift. Right striatocapsular chronic infarction. There is mild chronic microvascular ischemic changes and mild parenchymal volume loss. No acute, depressed calvarial fractures. No large scalp hematomas. Bilateral lens surgeries. CT/STROKE Brain/Head without Cont IMPRESSION: No acute, large territorial infarction. Dr. Reardon was notified by Sophie Garcia at 9:10 Pm EST on 06/07/2025. Reading Location: [id number]
--- NOTE | 2025-06-07 21:25 | PCM.HOSP.N ---
Hospitalist Note STROKE ALERT INITIATED 06/07/25 @ 8:39 pm Patient noted to have been at baseline ~ 5 minutes prior with family present with her with onset expressive aphasia, dysarthria and mild R sided facial droop. BS appropriate, VS appropriate. Transitioned to CT and CT head, CTA head obtained, unable to obtain CTA neck given agitation. No acute findings noted. Patient resolved symptoms by the time scans completed. She became similar to day prior with increased agitation, yelling, eventually calming. Discussed case with stroke alert physician and decision to defer tenecteplase at this time. Noted intention for continued neurology evaluation. Recommended continued Coumadin with INR trending. Recommended also MRI of the brain but noted given her significant agitation with dementia if this was unable to be obtained then to not necessarily push for it as this would not change patient management.
--- NOTE | 2025-06-07 21:28 | ECHOD_ITS ---
Reason For Study Reason For Study: TIA/CVA Procedure This was a 2D Doppler, Color Flow transthoracic echocardiogram. Exam performed portable in patient room. Left Ventricle Normal LV size. The estimated ejection fraction is 60 %. Unable to assess diastolic dysfunction. No regional wall motion abnormalities noted. Right Ventricle Normal RV size. Normal systolic function. Atria The left atrium is mildly enlarged. Normal right atrium. No doppler evidence for ASD. Mitral Valve There is moderate mitral annular calcification. There is no mitral valve stenosis. Mild (1+) mitral valve insufficiency. Tricuspid Valve There is no tricuspid stenosis. Mild tricuspid valve insufficiency. Pulmonary artery systolic pressure is 45 mmHg. Aortic Valve There is no aortic stenosis. No aortic valve insufficiency. Stable appearing bioprosthetic aortic valve apparatus. Pulmonic Valve There is no pulmonic valvular stenosis. No pulmonic valve insufficiency. Great Vessels Normal sized aortic root. Pericardium/Pleural No pericardial effusion. MMode/2D Measurements & Calculations LVIDd: 4.1 cm IVSd: 1.4 cm LVOT diam: 2.0 cm LVIDs: 2.7 cm LVPWd: 1.4 cm LVOT area: 3.2 cm2 RVDd: 3.6 cm FS: 35.5 % Ao root diam: 3.8 cm LAV(MOD-bp): 75.7 ml LVAd ap4: 25.1 cm2 LAV(MOD-bp) Indexed: 36.8 ml/m2 LVLd ap4: 7.0 cm LAV(MOD-sp2): 61.0 ml EDV(MOD-sp4): 76.3 ml LAV(MOD-sp4): 84.0 ml EDV(sp4-el): 75.6 ml LVAs ap4: 15.7 cm2 LVLs ap4: 6.3 cm ESV(MOD-sp4): 34.3 ml ESV(sp4-el): 32.8 ml EF(MOD-sp4): 55.0 % EF(sp4-el): 56.5 % LVAd ap2: 26.9 cm2 SV(MOD-sp4): 41.9 ml SV(MOD-sp2): 46.4 ml LVLd ap2: 7.6 cm SI(MOD-sp4): 20.4 ml/m2 SI(MOD-sp2): 22.6 ml/m2 EDV(MOD-sp2): 79.1 ml EDV(sp2-el): 80.9 ml LVAs ap2: 16.3 cm2 LVLs ap2: 6.9 cm ESV(MOD-sp2): 32.6 ml ESV(sp2-el): 32.7 ml EF(MOD-sp2): 58.7 % SV(sp4-el): 42.7 ml LA dimension(2D): 4.5 cm LA A4 area: 27.0 cm2 RA A4 area: 17.0 cm2 Doppler Measurements & Calculations MV E max yunier: 124.1 cm/sec Ao V2 max: 189.4 cm/sec LV V1 max: 141.2 cm/sec Ao max P.4 mmHg LV V1 max P.0 mmHg Ao V2 mean: 130.9 cm/sec LV V1 mean P.3 mmHg Ao mean P.7 mmHg LV V1 mean: 97.8 cm/sec Ao V2 VTI: 33.2 cm LV V1 VTI: 25.3 cm AV (velocity ratio): 0.76 KINSEY(I,D): 2.4 cm2 KINSEY(V,D): 2.4 cm2 SV(LVOT): 80.9 ml PA V2 max: 88.3 cm/sec TR max yunier: 339.4 cm/sec TR max P.1 mmHg ECHO/Echo Complete Interpretation Summary The estimated ejection fraction is 60 %. Unable to assess diastolic dysfunction. The left atrium is mildly enlarged. Mild (1+) mitral valve insufficiency. Ordering Physician: Jana Reardon Referring Physician: Terrell Schafer Performed By: Natali Augustine RDCS
--- NOTE | 2025-06-07 21:57 | PCM.HOSP.N ---
Hospitalist Note Patient with continued agitation, neurologically remains at prior baseline before stroke alert. Will administer haldol at this time and have PRN given her predisposition toward physical harm of staff.
--- NOTE | 2025-06-07 22:59 | EKG12_ITS ---
Test Reason : TACHYCARDIA Blood Pressure : */* mmHG Vent. Rate : 175 BPM Atrial Rate : 122 BPM P-R Int : * ms QRS Dur : 132 ms QT Int : 234 ms P-R-T Axes : * -79 207 degrees QTcB Int : 399 ms Critical Test Result: High HR afib with RVR Left axis deviation Non-specific intra-ventricular conduction block Minimal voltage criteria for LVH, may be normal variant ( [place] product ) Cannot rule out Septal infarct , age undetermined Marked ST abnormality, possible anterior subendocardial injury Abnormal ECG When compared with ECG of 07-Jun-2025 21:19, MANUAL COMPARISON REQUIRED DATA IS UNCONFIRMED Confirmed by DANIEL WEBB, JOSE ([id number]), map editor PATRICK DE LA VEGA ([id number]) on 06/09/2025 1:20:46 PM Referred By: KEERTHI Confirmed By: JOSE SANCHEZ MD
[2025-06-07] MEDS: 0.9% Saline Lock 10 ML Syringe IV ×2 (23:14→23:54)
[2025-06-07] MEDS: Lorazepam 2 MG/ML WCH Syringe 0.5 MG IV (23:14)
[2025-06-07] MEDS: Lorazepam 2 MG/ML WCH Syringe 1 MG IV (23:58)
[2025-06-08] VITALS (11 sets, daily range): BP systolic 125–180; BP diastolic 58–110; PULSE 84–129; RESP 18–20; TEMP 36.1–36.9; O2SAT 86–99; BMI 36.4
[2025-06-08 00:45] LABS: Prothrombin Time (Protime)PT. 16.8 SECONDS (11.7-14.9)
[2025-06-08 00:58] LABS: Magnesium 1.7 mg/dL (1.5-2.2)
[2025-06-08 01:00] LABS: Anion Gap 19 (5-15); BUN 17 mg/dL (4-19); BUN/Creat Ratio 18.5 RATIO (10-20); Calcium,Total 9.3 mg/dL (7.6-11.0); Carbon Dioxide 20.0 mmol/L (21.0-32.0); Chloride 96 mmol/L (98-108); Cholesterol 120 mg/dL (<=200); Estimated Creatinine Clearance 54.24 ml/min (50-250); Glucose 277 mg/dL (70-99); Low Density Lipoprotein Calc. 50 mg/dL; Potassium 3.7 mmol/L (3.3-5.1); Triglycerides 146 mg/dL; Very Low Density Lipoprotein 29 mg/dL (5-40); cholesterol:hdl ratio screen 2.95
[2025-06-08] MEDS: 0.9% Saline Lock 10 ML Syringe IV ×3 (01:16→05:23)
--- NOTE | 2025-06-08 02:04 | EKG12_ITS ---
Test Reason : RHYTHM CHANGE Blood Pressure : */* mmHG Vent. Rate : 113 BPM Atrial Rate : * BPM P-R Int : * ms QRS Dur : 144 ms QT Int : 392 ms P-R-T Axes : * 135 125 degrees QTcB Int : 537 ms Atrial fibrillation with rapid ventricular response with premature ventricular or aberrantly conducted complexes Right axis deviation Non-specific intra-ventricular conduction block Abnormal ECG When compared with ECG of 07-Jun-2025 23:02, MANUAL COMPARISON REQUIRED DATA IS UNCONFIRMED Confirmed by DANIEL WEBB, JOSE ([id number]), rewrite editor PATRICK DE LA VEGA ([id number]) on 06/09/2025 1:20:17 PM Referred By: KEERTHI Confirmed By: JOSE SANCHEZ MD
[2025-06-08] MEDS: Lorazepam 2 MG/ML WCH Syringe 1 MG IV ×2 (04:24→10:45)
[2025-06-08] MEDS: Furosemide 20 MG/2 ML VIAL IV ×2 (05:14→14:32)
[2025-06-08] MEDS: Magnesium Sulfate 2 GM in Dextrose 5%-Water (100mL Bag) 100 ML IV (05:29)
--- NOTE | 2025-06-08 13:37 | CASEMGMT ---
Social Work SW met w/pt's son and daughter in law in regard to prior level of function and anticipated discharge plan. PCP: Dr. Schafer Specialists: Dr. Judge--cardiology, Dr. Cobb--endocrinology, Dr. Sales--podiatry Pharmacy: [facility] in [place] Insurance: Medicare/[employer] Prescription coverage: Pt does not have at this time. As per family, pt had overlapping coverage. In the attempt to cancel one plan, they canceled both. Pt's DIEUDONNE Holcomb has been working w/insurance to get a plan back into place, however has not been successful. Pt has been paying for medications out of pocket. LNOK: Pt has son Jb, DIEUDONNE Holcomb and pt's grandchildren Kaley(27) and Will(19). Pt also has a daughter Sofia in [place], and a daughter Nichole who lives locally here. LW/POA: As per son Jb, he is POA, they just completed the documents. SW asked him to bring them in. He states he is also pt's financial POA. Living arrangements/Prior level of function: Pt lives w/Jb, Aicha, Kaley and Will [place]. Pt has a first floor set up, one step into the home. Pt sets up her own meds, DIL does oversight from a distance as pt insists on setting up her own medications. Pt can dress herself, get to the bathroom, can bathe herself. Pt does use pads as she at times cannot tell when she has to use the bathroom. Family does the cooking, cleaning, driving. Pt had been managing okay, and had a bout of confusion a few days ago. It resolved but now is back again. Pt's DIL states they said pt has dementia, SW inquired who. Pt's son and DIEUDONNE explain pt was living w/the sister Sofia in [place], and came up for what Jb thought was a visit. However, the daughter Nichole here then set up pt in an apartment in a building she owns, but it was not working out. Pt then came to stay w/Jb and his family since March of 2024. Family explains that pt had been doing okay, but had a bout of confusion a few days ago, Aicha states this is unusual for pt. She seemed to come out of it. However today pt has been very confused and upset. DME: Family has a lot of DME from when they took care of Jb's father, including a handicapped shower(which is adding a chair to and changing where the water comes out for pt), a sit to stand, a azucena lift, a wheelchair. Pt has a walker that she uses at her baseline, and has two walkers. There are also grab bars in the bathroom. SNF/HHC: Pt has never been to a SNF or had HHC. Plan: Likely SNF. SW did provide to family a list from [facility] of halfway facilities in network w/pt's insurance, in pt's preferred geographic area, and complete w/quality and resource use data. SW explained the Medicare for SNF benefits, and educated pt's family that pt needs to participate and show a need for therapy in order for Medicare to cover. Son states understanding. They are thinking that SNF may be warranted, they do not think they can care for pt at this time. RAYA asked them to review the list, and SW will follow up tomorrow w/choices. SW explained will send referrals once pt is closer to being medically ready. SW will continue to follow. SONYA Pham
--- NOTE | 2025-06-08 16:30 | NURSING ---
Pt combative towards staff, refuses O2/telemetry/vitals/blood sugar/meds. MD aware. haldol IM given
--- NOTE | 2025-06-08 20:38 | PN.HOSP_ITS ---
Reason for Visit Chief Complaint: Increased confusion, malaise Subjective Subjective Patient was seen and examined today, an MRI was attempted but the patient was too agitated to undergo the procedure. At times today, patient was appropriate, at other times she was very confused and agitated, she removed her telemetry which I discontinued, I also discontinued the patient's catheter, patient has a hard time keeping the oxygen on when she gets agitated and I had a talk with the family members and told them that she will most likely take the oxygen off and it would be hard to keep her on oxygen. Her pulse ox on room air was 86% today. I have given her IV Haldol today for agitation which worked very well, I have also written for IM Haldol because she removed her IV, I do not think she needs any more IV Lasix at this time so I kept the IV out. I wrote for oral Seroquel to start tonight-50 mg twice daily but I do not know if they will be able to give it to the patient. Objective Data Objective Data Vital Signs: Vital Signs Temp Pulse Resp BP Pulse Ox O2 Del Method O2 Flow Rate 98.5 F 85 18 133/68 H 86 Room Air 2 06/08/25 14:30 06/08/25 14:30 06/08/25 14:30 06/08/25 14:30 06/08/25 16:56 06/08/25 16:56 06/08/25 14:30 Oxygen Flow Rate (L/min) 2 Oxygen Delivery Method Room Air Weight: 99.4 kg Body Mass Index (BMI) 36.4 Intake & Output: Intake and Output for Last 24 Hours 06/06/25 06/07/25 06/08/25 23:59 23:59 23:59 Intake Total 1050 / 1050 1375 / 1375 104 / 104 Output Total 850 / 850 1250 / 1250 1300 / 1300 Balance 200 / 200 125 / 125 -1196 / -1196 Lab / Micro Data 06/07/25 06:09 06/10/25 06:00 Labs: Laboratory Results - last 24 hr 06/07/25 20:39: POC Glucose 175 H 06/08/25 00:06: POC Glucose 259 H 06/08/25 00:24: PT 16.8 H, INR 1.3, Sodium 135, Potassium 3.7, Chloride 96 L, C arbon Dioxide 20.0 L, Anion Gap 19 H, BUN 17, Creatinine 0.93, Estim Creat Clear Calc 54.24, Est GFR (MDRD) Non-Af 61, BUN/Creatinine Ratio 18.5, Glucose 277 H, Hemoglobin A1c 8.9 H, Calcium 9.3, Magnesium 1.7, Triglycerides 146, Cholesterol 120, LDL Cholesterol, Calc 50, VLDL Cholesterol 29, HDL Cholesterol 41, Cholesterol/HDL Ratio 2.95 06/08/25 06:46: POC Glucose 183 H Micro: Microbiology 06/06/25 18:30 Urine Catheter - Catheter Urine Culture - Preliminary Culture exhibits no growth. 06/06/25 23:10 Mucosa - Nasopharyngeal Respiratory Panel (PCR) - Final 06/06/25 23:11 Nasal Secretion MRSA (PCR) - Final 06/07/25 01:35 Urine Catheter - Ayala Legionella Antigen - Final 06/07/25 01:35 Urine Catheter - Ayala Streptococcus pneumoniae Antigen (M - Final Radiography Diagnostic Testing: Radiology Impression Head/Neck CTA 06/07/25 20:50 IMPRESSION: Exam is nondiagnostic, particularly in the neck region. However, there is no evidence for acute cervical or intracranial arterial pathology. Patent dural venous sinuses. Recommend repeat imaging as clinically determined. Reading Location: [place] [id number] 06/07/25 20:51 IMPRESSION: No acute, large territorial infarction. Dr. Reardon was notified by Sophie Garcia at 9:10 Pm EST on 06/07/2025. Reading Location: [facility] Echocardiogram 06/07/25 21:28 Interpretation Summary The estimated ejection fraction is 60 %. Unable to assess diastolic dysfunction. The left atrium is mildly enlarged. Mild (1+) mitral valve insufficiency. Ordering Physician: Jana Reardon Referring Physician: Terrell Schafer Performed By: Natali Augustine RDCS Rhythm Strip Rhythm Strip: A-fib Rate: 108 Ectopy: None Physical Exam Narrative alert and no apparent distress General Appearance: well kempt and well developed Orientation / Consciousness: awake HEENT normocephalic, head/scalp atraumatic and moist oral mucous membranes Eyes PERRL, EOMs intact bilaterally and conjunctivae normal Neck supple, no JVD, thyroid normal and no carotid bruits General: trachea midline Resp normal respiratory effort, no retractions, no use of accessory muscles and clear to auscultation bilaterally Auscultation: Negative for rales, rhonchi or wheezes Cardio regular rate, regular rhythm, S1 normal heart sound, S2 normal heart sound, no murmurs, no rub and no gallops GI normal to inspection, nondistended, normoactive bowel sounds, soft to palpation, non-tender and non-distended Extremity no clubbing, cyanosis or edema Skin no rashes or lesions noted General Skin Exam: no breakdown Neuro CN's II-XII intact bilaterally, moves all extremities, no focal motor deficits and no sensory deficits noted Neuro Narrative: Patient is confused Sensorium / Orientation: awake and alert Speech: speech normal Psych Psych Narrative: Patient is alert but confused Assessment & Plan Assessment/Plan (1) History of dementia: PLAN: Plan 1. Altered mental status with hypoxia and generalized debility-I feel the patient does have an element of congestive heart failure and I placed her on IV Lasix. I think is unlikely she has pneumonia and I took her off her antibiotics. She will be seen by PT and OT. Most likely she will need placement in senior living facility for rehab services. I doubted that the patient has had a CVA, I will reevaluate her tomorrow for possible repeat CTA since she is unable to undergo an MRI. #2 paroxysmal atrial fibrillation-patient is on Coumadin currently and metoprolol #3 chronic dementia-complicates care, management, recovery, and prognosis #4 valvular heart disease-patient has a bioprosthetic aortic valve #5 hypothyroidism-patient will remain on Synthroid #6 essential hypertension-patient will remain on her present medications #7 hyperlipidemia-patient will remain on her statin Total clinical time spent by myself addressing the patient's medical issues, reviewing all of her data, and collaborating with the patient's care team: 35 minutes Charges/Coding Visit Charges Inpatient E&M: 33438 Subs Hosp L2
[2025-06-09 04:03] VITALS: BP 146/69; PULSE 98; RESP 17; TEMP 36.7; O2SAT 98
[2025-06-09 04:30] VITALS: BMI 36.0
[2025-06-09 06:56] LABS: Prothrombin Time (Protime)PT. 19.7 SECONDS (11.7-14.9)
[2025-06-09 07:24] LABS: Anion Gap 11 (5-15); BUN 13 mg/dL (4-19); BUN/Creat Ratio 19.5 RATIO (10-20); Calcium,Total 8.9 mg/dL (7.6-11.0); Carbon Dioxide 29.8 mmol/L (21.0-32.0); Chloride 99 mmol/L (98-108); Estimated Creatinine Clearance 61.81 ml/min (50-250); Glucose 191 mg/dL (70-99); Potassium 3.1 mmol/L (3.3-5.1)
[2025-06-09 09:27] VITALS: PULSE 108
[2025-06-09 10:00] VITALS: BP 138/62; PULSE 106; RESP 18; TEMP 36.3; O2SAT 94
--- NOTE | 2025-06-09 12:48 | CASEMGMT ---
Addendum entered by Eusebia Issa 06/09/25 13:19: Social Work SW did receive email from family w/LW and POA, SW printed and they were placed on the chart, son Jb is healthcare POA. SONYA Pham Original Note: Social Work SW met w/pt, son, daughter in law and granddaughter in the room in regard to discharge plan. Pt is awake and alert today, participating in the conversation. Pt agreeable to SNF. We discussed options, pt and family would like referrals sent to [place], [facility], and [facility]. SW let dm Sal/vitaliy materials planning manager know and she will send referrals. SW will continue to follow. SONYA Pham
--- NOTE | 2025-06-09 12:51 | CASEMGMT ---
Addendum entered by Jonelle Viramontes 06/09/25 15:32: [facility] has declined. SW updated. Jonelle Viramontes DC Planning Asst. Original Note: Discharge Planning SNF referral sent to [facility]. Jonelle Viramontes DC Planning Asst.
--- NOTE | 2025-06-09 15:32 | CASEMGMT ---
Addendum entered by Jonelle Viramontes 06/09/25 16:00: [facility] has accepted. SW updated. Jonelle Viramontes DC Planning Asst. Original Note: Discharge Planning SNF referral sent to [facility]. Jonelle Viramontes DC Planning Asst.
[2025-06-09 16:00] VITALS: BP 101/75; PULSE 90; RESP 18; TEMP 36.5; O2SAT 95
--- NOTE | 2025-06-09 16:11 | CASEMGMT ---
Discharge Planning VM left for pts son to update him on acceptance by [facility]. Jonelle Viramontes DC Planning Asst.
[2025-06-09] MEDS: Potassium Chloride Oral Tablet 20 MEQ PO (17:15)
--- NOTE | 2025-06-09 19:09 | PN.HOSP_ITS ---
Reason for Visit Chief Complaint: Increased confusion, malaise Subjective Subjective Patient was seen and examined today, she is alert and does not appear to be agitated, there is minimal confusion. I have elected not to obtain a CT of the brain again due to the patient's improved mental status today. I talked with the patient's son and he was okay with not obtaining a CT of the brain. Patient is undergoing pre-CERT for SNF placement for short-term skilled services. Objective Data Objective Data Vital Signs: Vital Signs Temp Pulse Resp BP Pulse Ox O2 Del Method O2 Flow Rate 97.7 F L 90 18 101/75 95 Nasal Cannula 2 06/09/25 16:00 06/09/25 16:00 06/09/25 16:00 06/09/25 16:00 06/09/25 16:00 06/09/25 16:00 06/09/25 16:00 Oxygen Flow Rate (L/min) 2 Oxygen Delivery Method Nasal Cannula Weight: 98.2 kg Body Mass Index (BMI) 36.0 Intake & Output: Intake and Output for Last 24 Hours 06/07/25 06/08/25 06/09/25 23:59 23:59 23:59 Intake Total 1375 / 1375 104 / 104 300 / 300 Output Total 1250 / 1250 1300 / 1300 Balance 125 / 125 -1196 / -1196 300 / 300 Lab / Micro Data 06/07/25 06:09 06/10/25 06:00 Labs: Laboratory Results - last 24 hr 06/08/25 22:55: POC Glucose 173 H 06/09/25 04:38: POC Glucose 154 H 06/09/25 06:30: PT 19.7 H, INR 1.6, Sodium 140, Potassium 3.1 L, Chloride 99, Carbon Dioxide 29.8, Anion Gap 11, BUN 13, Creatinine 0.68 L, Estim Creat Clear Calc 61.81, Est GFR (MDRD) Non-Af 86, BUN/Creatinine Ratio 19.5, Glucose 191 H, Calcium 8.9 06/09/25 12:02: POC Glucose 246 H 06/09/25 17:13: POC Glucose 174 H Micro: Microbiology 06/06/25 18:30 Urine Catheter - Catheter Urine Culture - Final Culture exhibits no growth. 06/06/25 18:30 Blood Culture (Wb) - Anticubital Left Blood Culture - Preliminary No growth in 48 hours. 06/06/25 18:30 Blood Culture (Wb) - Anticubital Right Blood Culture - Preliminary No growth in 48 hours. 06/06/25 23:10 Mucosa - Nasopharyngeal Respiratory Panel (PCR) - Final 06/06/25 23:11 Nasal Secretion MRSA (PCR) - Final 06/07/25 01:35 Urine Catheter - Ayala Legionella Antigen - Final 06/07/25 01:35 Urine Catheter - Ayala Streptococcus pneumoniae Antigen (M - Final Rhythm Strip Rhythm Strip: A-fib Rate: 108 Ectopy: None Physical Exam Const alert, oriented x3 and no apparent distress General Appearance: cooperative, well kempt and well developed Orientation / Consciousness: awake, oriented to person, oriented to place and oriented to time HEENT normocephalic, head/scalp atraumatic and moist oral mucous membranes Eyes PERRL, EOMs intact bilaterally and conjunctivae normal Neck supple, no JVD, thyroid normal and no carotid bruits General: trachea midline Resp normal respiratory effort, no retractions, no use of accessory muscles and clear to auscultation bilaterally Auscultation: Negative for rales, rhonchi or wheezes Cardio S1 normal heart sound, S2 normal heart sound, no murmurs, no rub and no gallops Cardio Narrative: Heart rate and rhythm is irregular GI normal to inspection, nondistended, normoactive bowel sounds, soft to palpation, non-tender and non-distended Extremity no clubbing, cyanosis or edema Skin no rashes or lesions noted General Skin Exam: no breakdown Neuro oriented x3, CN's II-XII intact bilaterally, moves all extremities, no focal motor deficits and no sensory deficits noted Sensorium / Orientation: awake, alert, oriented to person, oriented to place and oriented to time Speech: speech normal Psych affect normal Assessment & Plan Assessment/Plan (1) Chronic a-fib: (2) History of dementia: PLAN: Plan 1. Altered mental [id number] hypoxia and generalized debility-I feel the patient does have an element of congestive heart failure, I have transitioned her Lasix over to oral and placed her on potassium. We are awaiting preapproval for her to go to a residential facility #2 paroxysmal atrial fibrillation-patient is on Coumadin currently and metoprolol #3 chronic dementia-complicates care, management, recovery, and prognosis #4 valvular heart disease-patient has a bioprosthetic aortic valve #5 hypothyroidism-patient will remain on Synthroid #6 essential hypertension-patient will remain on her present medications #7 hyperlipidemia-patient will remain on her statin #8 congestive heart failure with normal ejection fraction continue Lasix #9 mild pulmonary hypertension-continue Lasix Total clinical time spent by myself addressing the patient's medical issues, reviewing all of her data, and collaborating with the patient's care team: 35 minutes Charges/Coding Visit Charges Inpatient E&M: 59144 Subs Hosp L2
[2025-06-09 21:59] VITALS: BP 122/70; PULSE 89
[2025-06-09 22:00] VITALS: BP 122/70; PULSE 89; RESP 16; TEMP 36.5; O2SAT 96
[2025-06-10 03:59] VITALS: BP 132/64; PULSE 78; RESP 18; TEMP 36.4; O2SAT 97
[2025-06-10 05:55] VITALS: BMI 36.4
[2025-06-10 06:31] LABS: Prothrombin Time (Protime)PT. 19.7 SECONDS (11.7-14.9)
[2025-06-10 06:46] LABS: Anion Gap 12 (5-15); BUN 31 mg/dL (4-19); BUN/Creat Ratio 18.4 RATIO (10-20); Calcium,Total 9.0 mg/dL (7.6-11.0); Carbon Dioxide 26.9 mmol/L (21.0-32.0); Chloride 97 mmol/L (98-108); Estimated Creatinine Clearance 29.79 ml/min (50-250); Glucose 197 mg/dL (70-99); Potassium 4.0 mmol/L (3.3-5.1)
[2025-06-10] MEDS: Potassium Chloride Oral Tablet 20 MEQ PO ×2 (09:11→16:46)
[2025-06-10 09:13] VITALS: BP 113/70; PULSE 83
[2025-06-10 09:17] VITALS: BP 113/70; PULSE 83; RESP 18; TEMP 36.9; O2SAT 98
--- NOTE | 2025-06-10 09:43 | CASEMGMT ---
Addendum entered by Eusebia Issa 06/10/25 11:41: Social Work Pt's son, DIEUDONNE and grandchildren here, they asked to speak w/SW. Son and DIEUDONNE asked what to bring for pt to SNF, SW advised to bring clothing, preferred toiletries and shoes. SW advised once pt at SNF they will have a better sense of what pt will need. SW now just waiting for d/c to complete hospital exemption. SONYA Pham Original Note: Social Work SW called son Jb, daughter in law answered. SW let her know pt was accepted at [facility] and can go today, she was not accepted at [facility]. Jonelle d/c transportation planning engineer had left son a message yesterday also w/the same information. Family agreeable. Physician notified and green sheet placed on chart. SONYA Pham
--- NOTE | 2025-06-10 14:54 | PCM.TXEXTCAR ---
Diet Diet Order/Speech Therapy: INPATIENT Hospital Diet / Speech Therapy Order(s) 06/06/25 22:07 Diet: Cardiac: Calorie-Controlled Food consistency:: Regular Liquid Consistency:: Regular/Thin Dietary Modifications:: Consistent Carbohydrate Type of Dietary Supplement:: 8oz Glucerna w/ Breakfast Diet Comments: Caffeine, MSG, Wheat Allergy How many daily calories?: 1800 calorie Routine Orders/Code Status Code Status: DNRCC-A (No intubation) DC O2, CPAP, BIPAP needs Home O2 Discharge instructions: No Wound(s) RLE: Wound Type: Laceration Therapies Weight Bearing: Full weight bearing Physical Therapy: Eval and Treat Occupational Therapy: Eval and Treat Problem/Diagnosis (1) Chronic a-fib: Status: Chronic Code(s): I48.20 - Chronic atrial fibrillation, unspecified (2) History of dementia: Status: Acute Code(s): Z86.59 - Personal history of other mental and behavioral disorders Plan 1. Altered mental xqmnon-rraoruqf-wlqk hypoxia and generalized debility-I feel the patient does have an element of congestive heart failure, I have transitioned her Lasix over to oral and placed her on potassium. We are awaiting preapproval for her to go to a nursing home facility #2 paroxysmal atrial fibrillation-patient is on Coumadin currently and metoprolol #3 chronic dementia-complicates care, management, recovery, and prognosis #4 valvular heart disease-patient has a bioprosthetic aortic valve #5 hypothyroidism-patient will remain on Synthroid #6 essential hypertension-patient will remain on her present medications #7 hyperlipidemia-patient will remain on her statin #8 congestive heart failure with normal ejection fraction continue Lasix #9 mild pulmonary hypertension-continue Lasix Total clinical time spent by myself addressing the patient's medical issues, reviewing all of her data, and collaborating with the patient's care team: 35 minutes Allergies/Procedures Done in Hospital Allergies acetaminophen (From Excedrin Migraine) Allergy (Intermediate, Verified 06/06/25 18:06) headache aspirin Allergy (Intermediate, Verified 06/06/25 18:06) headache caffeine (From Excedrin Migraine) Allergy (Intermediate, Verified 06/06/25 18:06) headache mold (mold spores) Allergy (Intermediate, Verified 06/06/25 18:06) respiratory distress lisinopril Adverse Reaction (Severe, Verified 06/06/25 18:06) Cough monosodium glutamate (msg) Adverse Reaction (Intermediate, Verified 06/06/25 18:06) PT UNSURE OF REACTION wheat Adverse Reaction (Intermediate, Verified 06/06/25 18:06) PT UNSURE OF REACTION liraglutide (From Victoza) Adverse Reaction (Verified 06/06/25 18:06) Other Procedures: 2-D Echocardiogram Type of Care/Length of Stay Estimated LOS: Convalescent Care Less Than 30 days Type of Care Needed: Skilled Rehab Potential: Good Prognosis: Good Additional Orders/Day of Discharge H&P will serve as current which was dated: 06/06/25 Day of Discharge: 06/10/25 Dietary and Speech Recommendations Dietitian Recommendations/Changes: Will continue 1800 calorie/consistent carbohydrate; cardiac. Caffeine, MSG and Wheat Allergy Will add 240mL glucerna shake w/ breakfast tray. Additional ONS as PO better established with meals. Discharge Plan Admission Admit Date/Time: 06/06/25 20:15 Primary Reason for Your Visit: Altered mental status, congestive heart failure, hypoxia Attending Provider: Todd Lane Primary Care Provider: Terrell Schafer Consulting Providers: Jana Reardon Discharge Orders/Prescriptions Prescriptions: New furosemide 40 mg Tablet 40 mg PO BIDLX Qty: 0 0RF acetaminophen 325 mg Tablet 650 mg PO Q4H PRN PRN (Reason: Fever, pain 1-08/25) Qty: 0 0RF insulin lispro [Humalog KwikPen Insulin] 100 unit/mL Insulin Pen See Protocol subcut ACHS Qty: 15 0RF Protocol: 3. Sliding Scale Insulin Med Dosing Condition: 150-189 mg/dl = 1 unit Condition: 190-229 mg/dl = 2 units Condition: 230-269 mg/dl = 3 units Condition: 270-309 mg/dl = 4 units Condition: 310-349 mg/dl = 5 units Condition: 350-399 mg/dl = 6 units Condition: 400-449 mg/dl = 7 units Condition: Greater than 449 call physician Protocol Text: - Use for Total Daily Dose of Insulin 37-55 units - Obsese, infected, or steroid patients MEDIUM DOSING ALGORITHIM menthol-zinc oxide [Calmoseptine] 0.44-20.6 % Ointment 1 applic topical 4X/DAY Qty: 0 0RF Protocol: *Topical Application Instructions APPLICATION INSTRUCTIONS: apply to affected region Rx Instructions: Apply to affected areas as needed 4 times a day sennosides-docusate sodium [Stimulant Laxative Plus] 8.6-50 mg Tablet 2 tab PO BID PRN PRN (Reason: Constipation) Qty: 0 0RF potassium chloride 20 mEq Tablet,Er Particles/Crystals 20 meq PO BIDCM Qty: 0 0RF nystatin 100,000 unit/gram Powder 1 applic topical TID Qty: 0 0RF Protocol: *Topical Application Instructions APPLICATION INSTRUCTIONS: to affected regions warfarin 6 mg tablet 6 mg PO DAILY Qty: 1 0RF Continued (DME) Dexcom G7 Binding Nicker Misc See Rx Instructions .Route Rx Instructions: As directed ergocalciferol (vitamin D2) 1,250 mcg (50,000 unit) capsule 50,000 unit PO QWEEK Qty: 20 1RF losartan 100 mg tablet 100 mg PO DAILY Qty: 90 3RF atorvastatin 40 mg tablet 40 mg PO DAILY Qty: 90 3RF gabapentin 100 mg capsule 100 mg PO TID alendronate 70 mg tablet 70 mg PO QWEEK magnesium chloride 71.5 MG tablet,delayed release (DR/EC) 143 mg PO DAILY metoprolol tartrate 100 mg tablet 100 mg PO BID Qty: 180 3RF levothyroxine 25 mcg tablet 25 mcg PO QDAY Qty: 90 0RF Discontinued (DME) pen needle, diabetic [BD Ultra-Fine Kimber Pen Needle] 32 gauge x 5/32 needle See Rx Instructions .ROUTE .MEDSUPPLY Qty: 400 4RF Rx Instructions: 4 times daily hydrochlorothiazide 25 mg tablet 25 mg PO DAILY Qty: 90 3RF trolamine salicylate [Myoflex] 10 % cream 1 applic topical DAILY PRN (Reason: ARTHRITIS ) glucagon HCl [Glucagon (HCl) Emergency Kit] 1 mg recon soln 1 mg subcut Q20M PRN (Reason: HYPOGLYCEMIA ) Rx Instructions: until target blood sugar attained nystatin 100,000 unit/gram powder 1 applic topical BID PRN (Reason: FUNGAL INFECTION ) cetirizine 5 mg tablet 5 mg PO DAILY acetaminophen 500 mg tablet 1,000 mg PO BID PRN (Reason: pain/fever) ascorbic acid (vitamin C) 1,000 mg capsule 1 g PO QDAY warfarin 5 mg tablet 5 mg PO QDAY Protocol: Dose Management Condition: Thursday Dose/Route: 8 mg Instruction: 2 x 4 mg tablets Condition: Thursday Dose/Route: 8 mg Instruction: 2 x 4 mg tablets Condition: Thursday Dose/Route: 10 mg Instruction: 2 x 5 mg tablets Condition: Thursday Dose/Route: 8 mg Instruction: 2 x 4 mg tablets Condition: Dose/Route: 8 mg Instruction: 2 x 4 mg tablets Condition: Thursday Dose/Route: 8 mg Instruction: 2 x 4 mg tablets Condition: Thursday Dose/Route: 8 mg Instruction: 2 x 4 mg tablets Protocol Text: Adjustment Start Date: Thursday05/30/25 INR Value: 1.8 INR Date: 05/29/25 Recheck Date: 06/13/25 furosemide 20 mg tablet 20 mg PO DAILY Qty: 90 3RF tizanidine 2 mg capsule 2 mg PO Q8H PRN (Reason: muscle spasticity) warfarin 1 mg tablet 1 mg PO 3XW Protocol: Dose Management Condition: Thursday Dose/Route: 8 mg Instruction: 2 x 4 mg tablets Condition: Thursday Dose/Route: 8 mg Instruction: 2 x 4 mg tablets Condition: Thursday Dose/Route: 10 mg Instruction: 2 x 5 mg tablets Condition: Thursday Dose/Route: 8 mg Instruction: 2 x 4 mg tablets Condition: Dose/Route: 8 mg Instruction: 2 x 4 mg tablets Condition: Thursday Dose/Route: 8 mg Instruction: 2 x 4 mg tablets Condition: Thursday Dose/Route: 8 mg Instruction: 2 x 4 mg tablets Protocol Text: Adjustment Start Date: Thursday05/30/25 INR Value: 1.8 INR Date: 05/29/25 Recheck Date: 06/13/25 oxycodone 5 mg capsule 5 mg PO BID PRN (Reason: pain) insulin degludec [Tresiba FlexTouch U-100] 100 unit/mL (3 mL) insulin pen 16 unit subcut BID Fiasp FlexTouch U-100 Insulin 100 unit/mL (3 mL) insulin pen 20 unit subcut TID Qty: 18 5RF clotrimazole-betamethasone 1-0.05 % cream 1 applic TOPICAL BID PRN (Reason: FUNGAL INFECTION ) ketoconazole 2 % shampoo 1 applic topical UD PRN (Reason: FUNGAL INFECTION ) Rx Instructions: APPLY SHAMPOO TOPICALLY TWICE A WEEK NEEDED ketoconazole 2 % cream 1 applic topical DAILY PRN (Reason: FUNGAL INFECTION ) warfarin 4 mg tablet 4 mg PO .COMPLEX Qty: 180 3RF Protocol: Dose Management Condition: Thursday Dose/Route: 8 mg Instruction: 2 x 4 mg tablets Condition: Thursday Dose/Route: 8 mg Instruction: 2 x 4 mg tablets Condition: Thursday Dose/Route: 10 mg Instruction: 2 x 5 mg tablets Condition: Thursday Dose/Route: 8 mg Instruction: 2 x 4 mg tablets Condition: Dose/Route: 8 mg Instruction: 2 x 4 mg tablets Condition: Thursday Dose/Route: 8 mg Instruction: 2 x 4 mg tablets Condition: Thursday Dose/Route: 8 mg Instruction: 2 x 4 mg tablets Protocol Text: Adjustment Start Date: Thursday05/30/25 INR Value: 1.8 INR Date: 05/29/25 Recheck Date: 06/13/25 Rx Instructions: take 1 tablet Thu, , , and 2 tablets (8 mg) on Thursday, Thursday and Thursday or DIRECTED ; Please give extra tablets. (DME) lancets [FreeStyle Lancets] 28 gauge misc See Rx Instructions .MEDSUPPLY Qty: 200 3RF Rx Instructions: check blood glucose daily for type 2 DM (DME) 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 meter [FreeStyle Lite Meter] Kit See Rx Instructions .MEDSUPPLY Qty: 1 0RF Rx Instructions: As directed, check blood glucose daily for type 2 DM (DME) FreeStyle Lite Strips Strip See Rx Instructions .MEDSUPPLY Qty: 100 3RF Rx Instructions: check blood glucose daily for type 2 DM Referrals / Follow Up: Terrell Schafer MD [Primary Care Provider] - Disposition Disposition (needs filled in before D/C Order can be placed): [facility]itentiary Facility
--- NOTE | 2025-06-10 15:10 | PCM.DC.SUM ---
Providers Date of Admission: 06/06/25 Date of Discharge: 06/10/25 Primary Care Physician: Dr. Terrell Schafer MD Reason For Visit: AMS, HYPOXIA Diagnosis Discharge Diagnosis (1) Chronic a-fib: Status: Chronic Code(s): I48.20 - Chronic atrial fibrillation, unspecified (2) History of dementia: Status: Acute Code(s): Z86.59 - Personal history of other mental and behavioral disorders Plan 1. Altered mental status/[id number]-[id number] hypoxia and generalized debility-possibly caused by the usage-e.g. muscle relaxants and pain medication #2 paroxysmal atrial fibrillation-patient is on Coumadin currently and metoprolol #3 chronic dementia-complicates care, management, recovery, and prognosis #4 valvular heart disease-patient has a bioprosthetic aortic valve #5 hypothyroidism-patient will remain on Synthroid #6 essential hypertension-patient will remain on her present medications #7 hyperlipidemia-patient will remain on her statin #8 congestive heart failure with normal ejection fraction continue Lasix #9 mild pulmonary hypertension-continue Lasix Total clinical time spent by myself addressing the patient's medical issues, reviewing all of her data, and collaborating with the patient's care team: 35 minutes Medications at Discharge Home Medications 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,copy lathe tender,cont ([employer]) 07/28/24 alendronate 70 mg tablet 70 mg PO QWEEK OSTEOPEROSIS 08/22/24 magnesium chloride 71.5 mg (magnesium chloride) tablet,delayed release 143 mg PO DAILY SUPPLEMENT 08/22/24 ergocalciferol (vitamin D2) 1,250 mcg (50,000 unit) capsule 50,000 unit PO QWEEK #20 caps 11/07/24 metoprolol tartrate 100 mg tablet 100 mg PO BID BLOOD PRESSURE #180 tabs 11/21/24 atorvastatin 40 mg tablet 40 mg PO DAILY CHOLESTEROL #90 tabs 02/13/25 losartan 100 mg tablet 100 mg PO DAILY BLOOD PRESSURE #90 tabs 02/13/25 gabapentin 100 mg capsule 100 mg PO TID neuropathy 03/13/25 levothyroxine 25 mcg tablet 25 mcg PO QDAY #90 tabs 05/17/25 acetaminophen 325 mg tablet 650 mg (2 x 325 mg) PO Q4H PRN PRN Fever, pain -08/25 #0 tabs 06/10/25 furosemide 40 mg tablet 40 mg PO BIDLX #0 tabs 06/10/25 insulin lispro 100 unit/mL subcutaneous pen (Humalog KwikPen (U-100) Insulin) See Protocol subcut ACHS #15 mL 06/10/25 menthol 0.44 %-zinc oxide 20.6 % topical ointment (Calmoseptine) 1 applic topical 4X/DAY #0 grams 06/10/25 nystatin 100,000 unit/gram topical powder 1 applic topical TID #0 grams 06/10/25 potassium chloride 20 mEq tablet,extended release(part/cryst) 20 meq PO BIDCM #0 tabs 06/10/25 sennosides 8.6 mg-docusate sodium 50 mg tablet (Stimulant Laxative Plus) 2 tab PO BID PRN PRN Constipation #0 tabs 06/10/25 warfarin 6 mg tablet 6 mg PO DAILY #1 TAB 06/10/25 Hospital Course Operations None Procedures None Summary of Care Provided Minutes Spent on Discharge: 31 Hospital Course: This 84-year-old white female was brought into the emergency room at [facility] for evaluation by her family due to altered mental status at home. Patient was lethargic and unable to do ADLs. Patient has history of dementia. On admission to the hospital, patient was agitated at times, imaging studies have been done which showed no evidence of abnormality, lab was remarkable for glucose of 239, bilirubin was slightly elevated at 1.48, urinalysis was unremarkable. The etiology of the patient's increased confusion at home was not well understood. Repeat CTs obtained due to concerns of possible stroke, this repeat CTA did not show any evidence of stroke. MRI cannot be performed due to patient agitation, some patient home medications were held-her muscle relaxant and pain med was held during her hospitalization. Patient's mental status returned to baseline according to family within 48 hours in the hospital, the exact etiology of the patient's delirium was not well understood but possibly could be secondary to medication. Patient was seen by PT and OT and felt to be a good candidate to go to a skilled care facility for skilled services. On 06/10/2025, patient was seen and examined: On examination she appeared in good health and spirits, she does not appear to be in any distress. Vital signs as documented. Skin warm and dry and without overt rashes. Neck without JVD, thyroid appears normal, trachea is midline, neck is supple. Lungs clear, normal air movement was noted. Heart exam notable for regular rhythm, normal sounds and absence of murmurs, rubs or gallops. Abdomen unremarkable and without evidence of organomegaly, masses, or abdominal aortic enlargement, bowel sounds are present in all 4 quadrants, no abdominal tenderness was noted. Extremities nonedematous, no cyanosis was noted, no clubbing was noted. Neuro: Cranial nerves II through XII are grossly intact, no focal motor deficits were noted, sensation to light touch and pinprick is intact, motor exam 5/5 throughout. Psych: Patient is alert and oriented x3, she does not appear anxious or depressed, she does not appear agitated. Patient was felt to be stable for discharge to [facility] facility on 06/10/2025 Weight / BMI Weight Weight: 99.3 kg Body Mass Index (BMI) 36.4 ABG / Lab / Microbiology Data 06/07/25 06:09 06/10/25 06:00 Laboratory: Laboratory Results - last 24 hr 06/10/25 12:15: POC Glucose 313 H 06/10/25 16:07: POC Glucose 193 H Microbiology: Microbiology 06/06/25 18:30 Urine Catheter - Catheter Urine Culture - Final Culture exhibits no growth. 06/06/25 18:30 Blood Culture (Wb) - Anticubital Left Blood Culture - Preliminary No growth in 48 hours. 06/06/25 18:30 Blood Culture (Wb) - Anticubital Right Blood Culture - Preliminary No growth in 48 hours. 06/06/25 23:10 Mucosa - Nasopharyngeal Respiratory Panel (PCR) - Final 06/06/25 23:11 Nasal Secretion MRSA (PCR) - Final 06/07/25 01:35 Urine Catheter - Ayala Legionella Antigen - Final 06/07/25 01:35 Urine Catheter - Ayala Streptococcus pneumoniae Antigen (M - Final D/C Instructions DC O2, CPAP, BIPAP Needs Home O2 Discharge instructions: No Meaningful Use Info Meaningful Use Meaningful Use Diagnoses (Choose all that apply): None applicable Discharge Plan Admission Admit Date/Time: 06/06/25 20:15 Primary Reason for Your Visit: Altered mental status, congestive heart failure, hypoxia Attending Provider: Todd Lane Primary Care Provider: Terrell Schafer Consulting Providers: Jana Reardon Discharge Orders/Prescriptions Prescriptions: New furosemide 40 mg Tablet 40 mg PO BIDLX Qty: 0 0RF acetaminophen 325 mg Tablet 650 mg PO Q4H PRN PRN (Reason: Fever, pain -08/25) Qty: 0 0RF insulin lispro [Humalog KwikPen Insulin] 100 unit/mL Insulin Pen See Protocol subcut ACHS Qty: 15 0RF Protocol: 3. Sliding Scale Insulin Med Dosing Condition: 150-189 mg/dl = 1 unit Condition: 190-229 mg/dl = 2 units Condition: 230-269 mg/dl = 3 units Condition: 270-309 mg/dl = 4 units Condition: 310-349 mg/dl = 5 units Condition: 350-399 mg/dl = 6 units Condition: 400-449 mg/dl = 7 units Condition: Greater than 449 call physician Protocol Text: - Use for Total Daily Dose of Insulin 37-55 units - Obsese, infected, or steroid patients MEDIUM DOSING ALGORITHIM menthol-zinc oxide [Calmoseptine] 0.44-20.6 % Ointment 1 applic topical 4X/DAY Qty: 0 0RF Protocol: *Topical Application Instructions APPLICATION INSTRUCTIONS: apply to affected region Rx Instructions: Apply to affected areas as needed 4 times a day sennosides-docusate sodium [Stimulant Laxative Plus] 8.6-50 mg Tablet 2 tab PO BID PRN PRN (Reason: Constipation) Qty: 0 0RF potassium chloride 20 mEq Tablet,Er Particles/Crystals 20 meq PO BIDCM Qty: 0 0RF nystatin 100,000 unit/gram Powder 1 applic topical TID Qty: 0 0RF Protocol: *Topical Application Instructions APPLICATION INSTRUCTIONS: to affected regions warfarin 6 mg tablet 6 mg PO DAILY Qty: 1 0RF 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 (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 [facility] See Rx Instructions .Route Rx Instructions: As directed ergocalciferol (vitamin D2) 1,250 mcg (50,000 unit) capsule 50,000 unit PO QWEEK Qty: 20 1RF losartan 100 mg tablet 100 mg PO DAILY Qty: 90 3RF atorvastatin 40 mg tablet 40 mg PO DAILY Qty: 90 3RF gabapentin 100 mg capsule 100 mg PO TID alendronate 70 mg tablet 70 mg PO QWEEK magnesium chloride 71.5 MG tablet,delayed release (DR/EC) 143 mg PO DAILY metoprolol tartrate 100 mg tablet 100 mg PO BID Qty: 180 3RF levothyroxine 25 mcg tablet 25 mcg PO QDAY Qty: 90 0RF Discontinued (DME) pen needle, diabetic [BD Ultra-Fine Kimber Pen Needle] 32 gauge x 5/32 needle See Rx Instructions .ROUTE .MEDSUPPLY Qty: 400 4RF Rx Instructions: 4 times daily hydrochlorothiazide 25 mg tablet 25 mg PO DAILY Qty: 90 3RF trolamine salicylate [Myoflex] 10 % cream 1 applic topical DAILY PRN (Reason: ARTHRITIS ) glucagon HCl [Glucagon (HCl) Emergency Kit] 1 mg recon soln 1 mg subcut Q20M PRN (Reason: HYPOGLYCEMIA ) Rx Instructions: until target blood sugar attained nystatin 100,000 unit/gram powder 1 applic topical BID PRN (Reason: FUNGAL INFECTION ) cetirizine 5 mg tablet 5 mg PO DAILY acetaminophen 500 mg tablet 1,000 mg PO BID PRN (Reason: pain/fever) ascorbic acid (vitamin C) 1,000 mg capsule 1 g PO QDAY warfarin 5 mg tablet 5 mg PO QDAY Protocol: Dose Management Condition: Thursday Dose/Route: 8 mg Instruction: 2 x 4 mg tablets Condition: Thursday Dose/Route: 8 mg Instruction: 2 x 4 mg tablets Condition: Thursday Dose/Route: 10 mg Instruction: 2 x 5 mg tablets Condition: Thursday Dose/Route: 8 mg Instruction: 2 x 4 mg tablets Condition: Dose/Route: 8 mg Instruction: 2 x 4 mg tablets Condition: Thursday Dose/Route: 8 mg Instruction: 2 x 4 mg tablets Condition: Thursday Dose/Route: 8 mg Instruction: 2 x 4 mg tablets Protocol Text: Adjustment Start Date: Thursday05/30/25 INR Value: 1.8 INR Date: 05/29/25 Recheck Date: 06/13/25 furosemide 20 mg tablet 20 mg PO DAILY Qty: 90 3RF tizanidine 2 mg capsule 2 mg PO Q8H PRN (Reason: muscle spasticity) warfarin 1 mg tablet 1 mg PO 3XW Protocol: Dose Management Condition: Thursday Dose/Route: 8 mg Instruction: 2 x 4 mg tablets Condition: Thursday Dose/Route: 8 mg Instruction: 2 x 4 mg tablets Condition: Thursday Dose/Route: 10 mg Instruction: 2 x 5 mg tablets Condition: Thursday Dose/Route: 8 mg Instruction: 2 x 4 mg tablets Condition: Dose/Route: 8 mg Instruction: 2 x 4 mg tablets Condition: Thursday Dose/Route: 8 mg Instruction: 2 x 4 mg tablets Condition: Thursday Dose/Route: 8 mg Instruction: 2 x 4 mg tablets Protocol Text: Adjustment Start Date: Thursday05/30/25 INR Value: 1.8 INR Date: 05/29/25 Recheck Date: 06/13/25 oxycodone 5 mg capsule 5 mg PO BID PRN (Reason: pain) insulin degludec [Tresiba FlexTouch U-100] 100 unit/mL (3 mL) insulin pen 16 unit subcut BID Fiasp FlexTouch U-100 Insulin 100 unit/mL (3 mL) insulin pen 20 unit subcut TID Qty: 18 5RF clotrimazole-betamethasone 1-0.05 % cream 1 applic TOPICAL BID PRN (Reason: FUNGAL INFECTION ) ketoconazole 2 % shampoo 1 applic topical UD PRN (Reason: FUNGAL INFECTION ) Rx Instructions: APPLY SHAMPOO TOPICALLY TWICE A WEEK NEEDED ketoconazole 2 % cream 1 applic topical DAILY PRN (Reason: FUNGAL INFECTION ) warfarin 4 mg tablet 4 mg PO .COMPLEX Qty: 180 3RF Protocol: Dose Management Condition: Thursday Dose/Route: 8 mg Instruction: 2 x 4 mg tablets Condition: Thursday Dose/Route: 8 mg Instruction: 2 x 4 mg tablets Condition: Thursday Dose/Route: 10 mg Instruction: 2 x 5 mg tablets Condition: Thursday Dose/Route: 8 mg Instruction: 2 x 4 mg tablets Condition: Dose/Route: 8 mg Instruction: 2 x 4 mg tablets Condition: Thursday Dose/Route: 8 mg Instruction: 2 x 4 mg tablets Condition: Thursday Dose/Route: 8 mg Instruction: 2 x 4 mg tablets Protocol Text: Adjustment Start Date: Thursday05/30/25 INR Value: 1.8 INR Date: 05/29/25 Recheck Date: 06/13/25 Rx Instructions: take 1 tablet Thu, , , and 2 tablets (8 mg) on Thursday, Thursday and Thursday or DIRECTED ; Please give extra tablets. (DME) lancets [FreeStyle Lancets] 28 gauge misc See Rx Instructions .MEDSUPPLY Qty: 200 3RF Rx Instructions: check blood glucose daily for type 2 DM (DME) 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 meter [FreeStyle Lite Meter] Kit See Rx Instructions .MEDSUPPLY Qty: 1 0RF Rx Instructions: As directed, check blood glucose daily for type 2 DM (DME) FreeStyle Lite Strips Strip See Rx Instructions .MEDSUPPLY Qty: 100 3RF Rx Instructions: check blood glucose daily for type 2 DM Referrals / Follow Up: Terrell Shcafer MD [Primary Care Provider] - Disposition Disposition (needs filled in before D/C Order can be placed): Senior Living Facility Charges/Coding Visit Charges Inpatient E&M: 23240 Disch Hosp >30min
--- NOTE | 2025-06-10 15:26 | CASEMGMT ---
Social Work SW completed the hospital exemption in the HENS system, copy made for the chart and the packet to go w/pt. Pt to [facility] skilled today. SONYA Pham
[2025-06-10 16:48] VITALS: BP 127/70; PULSE 88; RESP 18; TEMP 36.8; O2SAT 93
== END 2025-06-10 17:30 | disposition skilled nursing facility (03) | DRG 291 ==
LOC: ED 20:28 → PCU 21:00
PROVIDERS: Admitting Provider Family Medicine; Emergency Provider Emergency Medicine; PCP Internal Medicine; Visit Provider Internal Medicine
DX: I13.0 Hypertensive heart and chronic kidney disease with heart failure and stage 1 through stage 4 chronic kidney disease, or unspecified chronic kidney disease (principal); I50.31 Acute diastolic (congestive) heart failure; F03.918 Unspecified dementia, unspecified severity, with other behavioral disturbance; I48.20 Chronic atrial fibrillation, unspecified; Z66 Do not resuscitate; I27.20 Pulmonary hypertension, unspecified; Z79.01 Long term (current) use of anticoagulants; E11.40 Type 2 diabetes mellitus with diabetic neuropathy, unspecified; E03.9 Hypothyroidism, unspecified; E66.9 Obesity, unspecified; Z95.2 Presence of prosthetic heart valve; I48.0 Paroxysmal atrial fibrillation; I25.10 Atherosclerotic heart disease of native coronary artery without angina pectoris; E78.5 Hyperlipidemia, unspecified; N18.2 Chronic kidney disease, stage 2 (mild); E11.22 Type 2 diabetes mellitus with diabetic chronic kidney disease; J30.9 Allergic rhinitis, unspecified; Z83.3 Family history of diabetes mellitus; Z79.890 Hormone replacement therapy; R53.81 Other malaise; Z79.899 Other long term (current) drug therapy; G89.29 Other chronic pain; Z79.85 Long-term (current) use of injectable non-insulin antidiabetic drugs; Z90.710 Acquired absence of both cervix and uterus; Z86.73 Personal history of transient ischemic attack (TIA), and cerebral infarction without residual deficits; Z90.49 Acquired absence of other specified parts of digestive tract; Z68.36 Body mass index [BMI] 36.0-36.9, adult
CPT/HCPCS: 36415; 51702; 70450; 70496; 70498; 71045; 80048; 80053; 80061; 81001; 82140; 82803; 82962; 83036; 83605; 83735; 83880; 84145; 84443; 85025; 85610; 85730; 87040; 87086; 87449; 87633; 87641; 93005; 93306; 97162; 97166; 97530; 97535; 97802; 99285; Q9967; A4216; J1938

== ENCOUNTER → 2025-06-21 05:00 | Outpatient (REF) | payer MEDICARE, OTHER, SELFPAY ==
--- OUTSIDE RECORDS SUMMARY | 2025-06-21 05:05 | XMS RPT_ITS | CCD ---
Author Organization [facility] Care Team Providers Care Senior Integration Architect Name Role Phone MONROE Valero, Belkys Clemons Unavailable Unavailabl dori Valero RN, Belkys Clemons Unavailable Unavailabl dori Valero RN, Belkys Clemons Unavailable Unavailabl e Ciesa, Arlet Unavailable Fabricio Sanders Unavailable Dante Cross Unavailable Unavailable hawa Koch Unavailable Unavailable Unavailable Unavailable Michel Cobb Unavailable Dante Salmon Unavailable Unavailable Marie Collado Unavailable Unavailable Ciesa HUNTER, Arlet Unavailable Dr. Fabricio Sanders Unavailable Dante Salmon LPN Unavailable Unavailable Unavailable Unavailable Madison Greer LPN Unavailable Unavailable Unavailable Primary Care Provider Unavailabl e Unavailable Unavailable Virginie Calderón MA Unavailable Unavailable Ciesa, Teresita Unavailable Ciesa, Teresita Unavailable Catrina Delaney CNP Unavailable Dr. Terrell Schafer MD Primary Care Provider Dr. Terrell Schafer MD Attending Provider Dr. Terrell Schafer MD Referring Provider Elkin Traylor Attending Provider Dr. Joel Judge MD Attending Provider Dr. Joel Judge MD Referring Provider Nati Reaves Attending Provider Hanh WEBB, Dr. Tejada Primary Care Provider Hanh WEBB, Dr. Tejada Attending Provider [phone] Hanh WEBB, Dr. Tejada Other Provider Ruby SHAH-CElkin Other Provider Des WEBB, Dr. Reese Emergency Provider Alexys WEBB, Dr. Jana Pandey Admit Provider Alexys WEBB, Dr. Jana Pandey Attending Provider Hanh WEBB, Dr. Tejada Primary Care Provider Hanh WEBB, Dr. Tejada Referring Provider [phone] Hanh WEBB, Dr. Tejada Attending Provider [phone] Alexys WEBB, Dr. Jana Pandey Other Provider Dr. Todd Lane DO Attending Provider Alexys WEBB, Dr. Jana Pandey Attending Provider Ariana BONILLA, Dr. Brooks Other Provider Tor WEBB, Dr. Nowak Attending Provider Hanh WEBB, Dr. Tejada Primary Care Provider Hnah WEBB, Dr. Tejada Referring Provider [phone] Austin WEBB, Elkin Bird Attending Provider Unavailable Elkin Avila MD Referring Provider Unavailable Oleghe, Efewongbe Attending Unavailable Oleghe, Efewongbe Primary Care Unavailable Oleghe, Efewongbe Attending Unavailable Oleghe, Efewongbe Primary Care Unavailable Oleghe, Efewongbe Referring Unavailable Oleghe, Efewongbe Attending Unavailable Oleghe, Efewongbe Primary Care Unavailable Oleghe, Efewongbe Referring Unavailable Oleghe, Efewongbe Primary Care Unavailable Nati Renee Attending Unavailable Oleghe, Efewongbe Primary Care Unavailable She Lentz Attending Unavailabl e Oleghe, Efewongbe Referring Unavailable Oleghe, Efewongbe Primary Care Unavailable Elkin Beltran NP Attending Unavailable Oleghe, Efewongbe Referring Unavailable Oleghe, Efewongbe Primary Care Unavailable Brittany Macdonald Attending Unavailable Oleghe, Efewongbe Referring Unavailable Oleghe, Efewongbe Attending Unavailable Oleghe, Efewongbe Primary Care Unavailable Oleghe, Efewongbe Primary Care Unavailable White, Jana L Consulting Unavailable White, Jana L Admitting Unavailable Todd Lane Attending Unavailable Todd Lane Consulting Unavailable Oleghe, Efewongbe Attending Unavailable Oleghe, Efewongbe Primary Care Unavailable Oleghe, Efewongbe Attending Unavailable Oleghe, Efewongbe Primary Care Unavailable Oleghe, Efewongbe Attending Unavailable Oleghe, Efewongbe Primary Care Unavailable Care Physician, No Primary Primary Care Unava ilable Care Physician, No Primary Attending Unava ilable Care Physician, No Primary Primary Care Unava ilable Care Physician, No Primary Attending Unava ilable Oleghe, Efewongbe Primary Care Unavailable Oleghe, Efewongbe Attending Unavailable Alexys, Jana L Attending Unavailable Manolo Morejon Admitting Unavailable Manolo Morejon Consulting Unavailable Manolo Morejon Attending Unavailable Oleghe, Efewongbe Primary Care Unavailable Michelle Hernández Attending Unavailable Michelle Hernández Consulting Unavailable Oleghe, Efewongbe Referring Unavailable Oleghe, Efewongbe Primary Care Unavailable Nati Renee Attending Unavailable Oleghe, Efewongbe Attending Unavailable Oleghe, Efewongbe Referring Unavailable Oleghe, Efewongbe Primary Care Unavailable Oleghe, Efewongbe Referring Unavailable Oleghe, Efewongbe Attending Unavailable Oleghe, Efewongbe Primary Care Unavailable Oleghe, Efewongbe Primary Care Unavailable Oleghe, Efewongbe Attending Unavailable Joseph SHAH, Teresita Referring Unavailable White, Jana L Admitting Unavailable White, Jana L Consulting Unavailable Todd Lane Attending Unavailable Oleghe, Efewongbe Primary Care Unavailable Manolo Morejon Consulting Unavailable Oleghe, Efewongbe Primary Care Unavailable Michelle Hernández Attending Unavailable Manolo Morejon Admitting Unavailable Oleghe, Efewongbe Referring Unavailable Oleghe, Efewongbe Primary Care Unavailable Oleghe, Efewongbe Attending Unavailable Kannan, Joel Referring Unavailable Oleghe, Efewongbe Primary Care Unavailable Oleghe, Efewongbe Consulting Unavailable Kannan, Joel Attending Unavailable Roof ASSISTANT PROGRAM MANAGER, Elkin H Consulting Unavailable Care Physician, No Primary Primary Care Unava ilable Kannan, Athena Attending Unavailable Kannan, Joel Referring Unavailable Oleghe, Efewongbe Attending Unavailable Oleghe, Efewongbe Primary Care Unavailable Oleghe, Efewongbe Attending Unavailable Oleghe, Efewongbe Primary Care Unavailable Oleghe, Efewongbe Attending Unavailable Oleghe, Efewongbe Primary Care Unavailable Oleghe, Efewongbe Attending Unavailable Oleghe, Efewongbe Primary Care Unavailable Oleghe, Efewongbe Attending Unavailable Oleghe, Efewongbe Primary Care Unavailable Oleghe, Efewongbe Primary Care Unavailable Kannan, Joel Attending Unavailable Kannan, Athena Referring Unavailable Kannan, Joel Attending Unavailable Oleghe, Efewongbe Primary Care Unavailable Kannan, Joel Referring Unavailable Kannan, Joel Referring Unavailable Kannan, Athena Attending Unavailable Oleghe, Efewongbe Primary Care Unavailable Elkin Dupont Attending Unavailable Elkin Dupont Referring Unavailable Oleghe, Efewongbe Primary Care Unavailable Oleghe, Efewongbe Primary Care Unavailable Kannan, Joel Referring Unavailable Kannan, Joel Attending Unavailable Oleghe, Efewongbe Consulting Unavailable Roof ASSISTANT PROGRAM MANAGER, Elkin H Consulting Unavailable Oleghe, Efewongbe Attending Unavailable Oleghe, Efewongbe Primary Care Unavailable Oleghe, Efewongbe Attending Unavailable Oleghe, Efewongbe Primary Care Unavailable Allergies Allergy Classification Reported Allergen(s) Allergy Type Date of Onset Reaction(s) Facility Aspirin (7 sources) Aspirin; 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: [Aspirin 81 *ANALGESICS - NonNarcotic*] Drug Allergy [facility] Work Phone: liraglutide (7 sources) liraglutide; 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: [Victoza *ANTIDIABETICS*] Drug Allergy [facility] Work Phone: (8 sources) lisinopril; 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: [lisinopril] Drug Allergy 03-18-201 5 cough [facility] Work Phone: (20 sources) Aspirin; 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: [Aspirin 81 *ANALGESICS - NonNarcotic*] Drug Allergy 5 headache [facility] Work Phone: (20 sources) liraglutide; 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: [Victoza *ANTIDIABETICS*] Drug Allergy 5 Other [facility] Work Phone: (4 sources) Acetaminophen Drug Allergy 5 headache [facility] (4 sources) Caffeine Drug Allergy 5 headache [facility] (4 sources) Glutamate Drug Allergy 5 PT UNSURE OF REACTION [facility] (4 sources) Mold Extract Drug Allergy 5 respiratory distress [facility] (4 sources) Wheat preparation Drug Allergy 5 PT UNSURE OF REACTION [facility] (1 source) Acetaminophen Drug Allergy 5 [facility] (1 source) Aspirin Drug Allergy 5 [facility] (1 source) Caffeine Drug Allergy 5 [facility] (1 source) liraglutide Drug Allergy 5 [facility] (1 source) Mold Extract Drug Allergy 5 [facility] (1 source) Wheat preparation Drug Allergy 5 [facility] (1 source) monosodium glutamate Drug allergy (disorder) 5 [facility] Medications Current Medications Medication Drug Class(es) Dates Sig (Normalized) Sig (Original) acetaminophen 325 mg oral tablet (20 sources) Start: 06-10-2025 take 2 tablets by mouth every four hours as needed for pain Acetaminophen 325 mg Tablet Active 650 mg PO EVERY 4 HOURS NEEDED as needed for Fever, pain 1-10/ 0 0 June 10, 2025 12:00am Start: 02-13-2025 End: 06-10-2025 take 2 tablets by mouth twice daily as needed for pain Acetaminophen 500 mg tablet Discontinued 1000 mg PO TWICE A DAY as needed for pain/fever February 13, 2025 11:04am June 10, 2025 2:57pm Start: 08-23-2024 End: 02-13-2025 take 2 tablets [...] tablet by mouth daily as needed ACETAMINOPHEN [id number] Athenalorelei Judge MD Tylenol 500 MG O ral [...] Jul 2020 stop in 3-5 years Start: 06-10-2021 Alendronate So dium 70 MG Oral Tablet 1 (one) Tablet q week TAD for 0 days Quantity: 12 {Tablet} Refills: 3 Ordered: 10-Jun-2021 Luis Antonio BENNETTDante Start : 10-Jun-2021 Active Comments: take with water, 30 min before first food/drink/med, avoid lying down x 30min. Begin Jul 2020 stop in 3-5 years Start: 09-19-2020 End: 08-22-2024 take 1 tablet by mouth every week Alendronate 70 mg tablet, effervescent Discontinued 70 mg PO EVERY WEEK September 19, 2020 1:00am August 22, 2024 4:16pm Start: 07-16-2020 Alendronate So dium 70 MG Oral Tablet 1 (one) Tablet q week TAD for 0 days Quantity: 12 {Tablet} Refills: 3 Ordered: 16-Jul-2020 Luis Antonio BENNETT Dante Start : 16-Jul-2020 Active Comments: take with water, 30 min before first food/drink/med, avoid lying down x 30min. Begin Jul 2020 stop in - years Comment on above: take with water, 30 min before first food/drink/med, avoid lying down x 30min. Begin Jul 2020 stop in - years atorvastatin 40 mg oral tablet (20 sources) HMG-CoA Reductase Inhibitor Start: 12-28-19 18 End: 02-14-20 25 take 1 tablet by mouth once daily Atorvastatin 40 mg tablet Active 40 mg PO DAILY 90 February 13, 2025 11:44am CHOLESTEROL Start: 06-29-2012 take 1 tablet by meg th once daily ATORVASTATIN CALCIUM 40 MG TABS One tablet by mouth daily ATORVASTATIN CALCIUM [id number] Rohini Díaz PA-C Blood-Glucose,Regional Vice President Life Sales,Cont (Dexcom G7 Regional [employer] President Life Sales) misc (4 sources) Start: 07-28-2024 Blood-Glucose,Regional Vice President Life Sales,Cont (Dexcom G7 Regional [employer] Life Sales) misc Active 0 .Route July 28, 2024 12:00am As directed docusate sodium 50 mg / sennosides, group home 8.6 mg oral tablet (6 sources) Start: 06-10-2025 Sennosides-Docusate Sodium (Stimulant Laxative Plus) 8.6-50 mg Tablet Active 2 {tbl} PO TWICE DAILY NEEDED as needed for Constipation 0 June 10, 2025 12:00am Start: 08-23-2024 End: 02-13-2025 Sennosides-Docusate Sodium ( Stimulant Laxative Plus) 8.6-50 mg Tablet Discontinued 2 {tbl} PO TWICE DAILY NEEDED as needed for Constipation 30 August 23, 2024 12:00am February 13, 2025 11:09am ergocalciferol 1.25 mg oral capsule (20 sources) Provitamin D2 Compound Start: 11-07-2024 Ergocalciferol (Kassi min D2) 1,250 mcg (50,000 unit) capsule Active 98973 U PO EVERY WEEK 05 12November 07, 2024 11:54am Start: 05-23-2021 take 1 capsule by [facility] every week Vitamin D (Ergocalciferol) 1.25 MG (83446 UT) Oral Capsule 1 (one) Capsule once weekly for 0 days Quantity: 4 {Capsule} Refills: 3 Ordered: 12-Nov-2021 Teresita Ruiz Start : 12-Nov-2021 Active Start: 12-27-2019 take 1 capsule by [facility] every week Ergocalciferol 1.25 MG (10116 UT) Oral Capsule 1 (one) Capsule weekly for 0 days Quantity: 30 {Capsule} Refills: 0 Ordered: 03-Oct-2020 Teresita Ruiz CNP, CNP, Mary E Start : 03-Oct-2020 Active Start: 12-31-2017 End: 11-07-2024 Ergocalciferol (Vitamin D2) 50,000 unit capsule Discontinued 21006 U PO EVERY WEEK December 31, 2017 1:00am November 07, 2024 11:56am Start: 01-31-2015 [facility] VITAMIN D (ERGOCALCIFEROL) 01449 UNIT CAPS 1 tablet by mouth week ERGOCALCIFEROL [id number] Joel Judge MD Start: 06-29-2012 End: 01-24-2015 take 1 capsule by mouth once VITAMIN D (ERGOCALCIFEROL ) 90006 UNIT CAPS 1 capsule by mouth for 8 weeks then once a month ERGOCALCIFEROL [id number] Jonelle Ortez RN furosemide 40 mg oral tablet (20 sources) Loop Diuretic Start: 06-10-2025 take 1 tablet by mouth twice daily Furosemide 40 mg Tablet Active 40 mg PO TWICE DAILY 0 0 June 10, 2025 12:00am Start: 06-01-2024 End: 06-10-2025 take 1 tablet by mouth once daily Furosemide 20 mg tablet Discontinued 20 mg PO DAILY 90 3 February 13, 2025 11:43am June 10, 2025 2:58pm EDEMA Start: 05-07-2021 End: 05-07-2021 take 1 tablet by mouth twice daily Furosemide (Lasix) 20 mg tablet Discontinued 20 mg PO TWICE A DAY 180 3 May 07, 2021 11:25am May 07, 2021 11:37am Start: 05-07-2021 End: 05-07-2021 take 2 tablets by mouth once daily Furosemide (Lasix) 20 mg tablet Discontinued 40 mg PO DAILY May 07, 2021 12:00am May 07, 2021 11:26am Start: 06-03-2018 End: 06-10-2021 take 1 tablet by mouth once daily Furosemide 40 mg tablet Discontinued 40 mg PO daily June 03, 2018 12:00am May 07, 2021 11:23am Start: 12-28-2017 End: 01-01-2018 take 1 tablet by mouth once daily Furosemide 40 mg tablet Discontinued 40 mg PO daily December 28, 2017 1:00am January 01, 2018 3:10pm Start: 09-25-2016 take 1 tablet by meg th once daily LASIX 20 MG TABS One tablet by mouth daily FUROSEMIDE [id number] Joel Judge MD Start: 09-25-2016 take 1 tablet by meg th once daily LASIX 40 MG TABS One tablet by mouth daily FUROSEMIDE [id number] Joel Judge MD Start: 05-09-2015 End: 06-26-2015 take 1 tablet by mouth once daily LASIX 20 MG TABS One tablet by mouth daily FUROSEMIDE [id number] Rohini Díaz PA-C Comment on above: Rx by kannan gabapentin 100 mg oral capsule (12 sources) Anti-epileptic Agent Start: 03-13-2025 take 1 capsule by mouth three times daily Gabapentin 100 mg capsule Active 100 mg PO THREE TIMES A DAY March 13, 2025 12:00am neuropathy Start: 08-23-2024 End: 10-15-2024 take 1 capsule by mouth three times daily at mealtime Gabapentin 100 mg capsule Discontinued 100 mg PO 3 TIMES DAILY WITH MEALS 90 30 0 September 15, 2024 1:37pm October 14, 2024 1:00am October 15, 2024 1:15am 3 ml insulin lispro 100 unt/ml pen injector (2 sources) Insulin Analog Start: 06-10-2025 Insulin Lispro (Humalog Kwikpen Insulin) 100 unit/mL Insulin Pen Active 0 U SC BEFORE MEALS AND AT BEDTIME 15 0 June 10, 2025 12:00am Please contact the information source for Protocol details. magnesium chloride 598 mg delayed release oral tablet (8 sources) Start: 08-22-2024 take 2 tablets by mouth once daily Magnesium Chloride 71.5 MG tablet,delayed release (DR/EC) Active 143 mg PO DAILY August 22, 2024 12:00am SUPPLEMENT Start: 12-26-2014 End: 08-22-2024 take 1 tablet by mouth once daily Magnesium Chloride 71.5 MG tablet,delayed release (DR/EC) Discontinued 71.5 mg PO DAILY 30 0 December 26, 2014 1:00am August 22, 2024 7:04pm SUPPLEMENT Menthol / Zinc Oxide (2 sources) Start: 06-10-2025 Menthol-Zinc O xide (Calmoseptine) 0.44-20.6 % Ointment Active 1 NMA TOPICAL 4 TIMES DAILY 0 0 June 10, 2025 12:00am Apply to affected areas as needed 4 times a day Please contact the information source for Protocol details. metoprolol tartrate 100 mg oral tablet (20 sources) beta-Adrenergic Rita Start: 11-21-2024 take 1 tablet by mouth twice daily Metoprolol Tartrate 100 mg tablet Active 100 mg PO TWICE A DAY 180 3 November 21, 2024 3:20pm BLOOD PRESSURE Start: 06-01-2024 End: 11-21-2024 take 2 tablets by mouth twice daily Metoprolol Tartrate 50 mg tablet Discontinued 100 mg PO TWICE A DAY June 01, 2024 2:46pm November 21, 2024 3:20pm BLOOD PRESSURE Start: 04-18-2022 take 1 tablet by meg twice daily Metoprolol Tartrate 50 MG Oral Tablet 1 (one) Tablet BID for 90 days Quantity: 180 {Tablet} Refills: 3 Ordered: 18-Apr-2022 Allegra Graves DO Start : 18-Apr-2022 Active Start: 03-25-2022 take 1 tablet by meg th twice daily Metoprolol Tartrate 50 MG Oral Tablet 1 (one) Tablet BID for 90 days Quantity: 180 {Tablet} Refills: 3 Ordered: 25-Mar-2022 Zandra WEBB, Adrianna Clemons Start : 25-Mar-2022 Active Start: 12-31-2017 End: 06-01-2024 take 1 tablet by mouth twice daily Metoprolol Tartrate 50 mg tablet Discontinued 50 mg PO TWICE A DAY 180 3 November 04, 2018 6:20pm June 01, 2024 2:46pm Start: 12-26-2014 End: 12-31-2017 take 2 tablets [...] tablet by mouth twice daily METOPROLOL TARTRATE [id number] Joel Judge MD Start: 06-29-2012 End: 12-26-2014 take 1 tablet by mouth twice daily Metoprolol Tartrate 25 MG tablet Discontinued 25 mg PO TWICE A DAY December 24, 2014 1:00am December 26, 2014 12:06pm Comment on above: Rx by cardio nystatin 100 unt/mg topical powder (6 sources) Polyene Antifungal Start: 06-10-2025 Nystatin 100,000 unit/gram Powder Active 1 NMA TOPICAL THREE TIMES A DAY 0 0 June 10, 2025 12:00am Please contact the information source for Protocol details. Start: 07-28-2024 End: 06-10-2025 Nystatin 100,000 unit/gram p owder Discontinued 1 NMA TOPICAL TWICE A DAY as needed for FUNGAL INFECTION July 28, 2024 12:00am June 10, 2025 3:00pm microencapsulated potassium chloride 20 meq extended release oral tablet (8 sources) Start: 06-10-2025 take 1 tablet by mouth twice daily at mealtime Potassium Chloride 20 mEq Tablet,Er Particles/Crystals Active 20 meq PO TWICE DAILY WITH MEALS 0 0 June 10, 2025 12:00am Start: 05-09-2015 End: 06-26-2015 take 1 tablet by mouth once daily POTASSIUM CHLORIDE ER 10 MEQ CR-TABS One tablet by mouth daily POTASSIUM CHLORIDE [id number] Rohini Díaz PA-C levothyroxine sodium 0.025 mg oral tablet (20 [...] One tablet by mouth daily LEVOTHYROXINE SODIUM [id number] Joel Judge MD warfarin sodium 6 mg oral tablet (20 sources) Vitamin K Antagonist Start: 06-10-2025 take 1 tablet by mouth once daily Warfarin 6 mg tablet Active 6 mg PO DAILY 1 0 June 10, 2025 12:00am Start: 03-13-2025 End: 06-10-2025 take 1 tablet by mouth three times weekly Warfarin 1 mg tablet Discontinued 1 mg PO 3 TIMES A WEEK March 13, 2025 12:00am June 10, 2025 3:01pm afib Please contact the information source for Protocol details. Start: 02-13-2025 End: 06-10-2025 take 1 tablet by mouth once daily Warfarin 5 mg tablet Discontinued 5 mg PO daily February 13, 2025 12:00am June 10, 2025 3:01pm afib Please contact the information source for Protocol details. Start: 11-22-2024 End: 06-10-2025 Warfarin 4 mg tablet Discont inued 4 mg PO .COMPLEX 180 3 November 22, 2024 1:00am June 10, 2025 3:02pm take 1 tablet Mon, , , and 2 tablets (8 mg) on Thursday, [...] the information source for Protocol details. Start: 07-23-2021 Warfarin Premiu m 1 MG Oral Tablet 3 (three) [...] Quantity: 270 {Tablet} Refills: 3 Ordered: 26-Apr-2021 Sitadaya HARRISON Arlet Sitadaya HARRISON [facility]ows Start : 26-Apr-2021 Active Comments: Pt takes a total of 8mg daily. takes 3- 1mg tablets along with 1- 5mg tablet for a total of 8mg daily. This is subject to change based off of results of INR Start: 04-24-2021 Warfarin Sodiu m 1 MG Oral Tablet 3 (three) Tablet daily for 90 days Quantity: 270 {Tablet} Refills: 3 Ordered: 24-Apr-2021 Joseph HARRISON ArletDori Ruiz CNP [facility] Start : 24-Apr-2021 Active Comments: Pt takes [...] {Tablet} Refills: 3 Ordered: 14-Jan-2021 Joseph HARRISON ArletDori Ruiz CNP [facility] Start : 14-Jan-2021 Active Start: 10-09-2020 End: [...] {Tablet} Refills: 3 Ordered: 02-Mar-2020 Joseph HARRISON ArletDori Ruiz CNP [facility] Start : 02-Mar-2020 Active Comments: Take 6mg Tues and Thur[place] 7mg all other days Start: 12-26-2014 End: 07-28-2024 Warfarin 5 MG tablet Discont inued 5 mg PO DIRECTED 30 0 December 26, 2014 1:00am July 28, 2024 4:04pm Please contact the information source for Protocol details. Comment on above: Take 6mg Tues and Th urstake 7mg all other days Pt takes a total of 8mg daily. takes 3- 1mg tablets along with 1- 5mg tablet for a total of 8mg daily. This is subject to change based off of results of INR Completed/Discontinued Medications Medication Drug Class(es) Dates Sig (Normalized) Sig (Original) [id number] 200 actuat albuterol 0.09 mg/actuat metered dose [...] {Inhaler} Refills: 0 Ordered: 28-Nov-2020 Teresita Ruiz CNP E [employer] TECHNICAL LEAD, [facility]ows Start : 28-Nov-2020 Active amLODIPine 2.5 mg oral tablet (20 sources) Dihydropyridine Calcium Channel Rita Start: 12-31-2017 End: 06-03-2018 take 1 tablet by mouth once daily Amlodipine 2.5 mg tablet Discontinued 2.5 mg PO daily 90 3 March 19, 2018 9:56am June 03, 2018 10:15am Start: 01-24-2015 take 1 tablet by meg th once daily NORVASC 5 MG TABS One tablet by mouth daily AMLODIPINE BESYLATE [id number] Rohini Díaz PA-C Start: 01-24-2015 take 1 tablet by meg th once daily NORVASC 10 MG TABS One tablet by mouth daily AMLODIPINE BESYLATE [id number] Jonelle Ortez RN Start: 01-24-2015 take 1 tablet by meg th once daily AMLODIPINE BESYLATE 2.5 MG TABS One tablet by mouth daily AMLODIPINE BESYLATE [id number] Rohini Díaz PA-C Start: 12-26-2014 End: 12-31-2017 take 2 tablets by mouth once daily Amlodipine 5 MG tablet Discontinued 10 mg PO DAILY 30 0 December 26, 2014 12:06pm December 31, 2017 2:29pm Start: 07-26-2014 End: 12-26-2014 take 1 tablet by mouth once daily Amlodipine 5 MG tablet Discontinued 5 mg PO DAILY 30 0 July 26, 2014 12:00am December 26, 2014 12:06pm amoxicillin 500 mg oral capsule (4 sources) Penicillin-class Antibacterial Start: 07-28-2024 End: 06-06-2025 take 4 capsules by mouth once as needed Amoxicillin 500 mg capsule Discontinued 2000 mg PO ONCE as needed for DENTAL APPOINTMENTS July 28, 2024 12:00am June 06, 2025 8:13pm 1 hr prior to dental visit Antiseptic Powder for sensitive skin (20 sources) Antiseptic Powde r for sensitive skin Inactive ascorbic acid 1000 mg oral capsule (4 sources) Vitamin C Start: 02-13-2025 End: 06-10-2025 take 1 g by mouth once daily Ascorbic Acid (Vitamin C) 1,000 mg capsule Discontinued 1 g PO daily February 13, 2025 12:00am June 10, 2025 2:57pm supplement aspirin 325 mg oral tablet (16 sources) Nonsteroidal Anti-inflammatory Drug Start: 06-29-2012 End: 01-24-2015 take 1 tablet by mouth at bedtime Aspirin 325 MG tablet Discontinued 325 mg PO AT BEDTIME July 25, 2014 12:00am December 26, 2014 12:05pm betamethasone 0.5 mg/ml / clotrimazole 10 mg/ml topical cream (8 sources) Azole Antifungal, Corticosteroid Start: 07-28-2024 End: 06-10-2025 Clotrimazole-Beta methasone 1-0.05 % cream Discontinued 1 NMA TOPICAL TWICE A DAY as needed for FUNGAL INFECTION August 22, 2024 12:00am June 10, 2025 2:58pm Blood Glucose Monitor System w/Device Kit (20 sources) Start: 02-27-2021 End: 03-11-2021 Blood Glucose Monitor System w/Device Kit 1 (one) Each check as directed for 0 days Quantity: 1 {Each} Refills: 0 Ordered: 11-Mar-2021 Madison Greer LPN Start : 27-Feb-2021 End : 11-Mar-2021 Inactive Comments: DEVICE ONLYGive device that insurance will [id number] Start: 02-27-2021 Blood Glucose Monitor System w/Device Kit 1 (one) Each check as directed for 0 days Quantity: 1 {Each} Refills: 0 Ordered: 27-Feb-2021 Dante Salmon LPN Start : 27-Feb-2021 Active Comments: DEVICE ONLYGive device that insurance will [id number] Comment on above: DEVICE ONLYGive patricia ce that insurance will [id number] Blood-Glucose Meter (Freestyle Lite Meter) kit (4 sources) Start: 02-23-2025 End: 06-10-2025 Blood-Glucose Meter (Freestyle Lite Meter) kit Discontinued 0 .MEDSUPPLY 1 February 23, 2025 12:00am June 10, 2025 3:03pm Type 2 diabetes mellitus with hyperglycemia As directed, check blood glucose daily for type 2 DM Start: 02-23-2025 Blood-Glucose Meter (Freestyle Lite Meter) kit Active 0 .MEDSUPPLY 1 February 23, 2025 12:00am Type 2 diabetes mellitus with hyperglycemia As directed, check blood glucose daily for type 2 DM budesonide 0.032 mg/actuat metered dose nasal spray (20 sources) Corticosteroid Start: 06-26-2008 End: 12-04-2008 RHINOCORT DAMIR, 32MCG/ACT (Nasal Suspension) 1 (one) Suspension 1 spray nostril daily for 0 days Quantity: 1 {Suspension} Refills: 0 Ordered: 26-Jun-2008 Poonam Mae Start : 26-Jun-2008 End : 04-Dec-2008 Discontinued canagliflozin 100 mg oral tablet (20 sources) Sodium-Glucose Cotransporter 2 Inhibitor Start: 01-24-2015 take 1 tablet by mouth three times daily INVOKANA 100 MG TABS One tablet by mouth three times daily CANAGLIFLOZIN [id number] Rohini Díaz PA-C Start: 01-24-2015 End: 09-25-2016 take 1 tablet by mouth once daily INVOKANA 300 MG TABS One tablet by mouth daily CANAGLIFLOZIN [id number] Joel Judge MD Start: 12-24-2014 End: 12-31-2017 take 1 tablet by mouth once daily Canagliflozin 100 MG tablet Discontinued 100 mg PO DAILY December 24, 2014 1:00am December 31, 2017 2:31pm Start: 02-07-2014 End: 08-09-2014 take 1 tablet by mouth once daily INVOKANA 100 MG TABS One tablet by mouth daily CANAGLIFLOZIN [id number] Rohini Díaz PA-C cetirizine hydrochloride 5 mg oral tablet (4 sources) Histamine-1 Receptor Antagonist Start: 06-01-2024 End: 06-10-2025 take 1 tablet by mouth once daily Cetirizine 5 mg tablet Discontinued 5 mg PO DAILY June 01, 2024 12:00am June 10, 2025 2:58pm ALLERGIES chlorthalidone 25 mg oral tablet (7 sources) Thiazide-like Diuretic Start: 12-31-2017 End: 06-03-2018 take 1 tablet by mouth once daily Chlorthalidone 25 mg tablet Discontinued 25 mg PO daily December 31, 2017 1:00am June 03, 2018 10:18am Start: 03-18-2016 take 1 tablet by meg once daily CHLORTHALIDONE 25 MG TABS One tablet by mouth daily CHLORTHALIDONE [id number] Rohini Díaz PA-C 24 hr clarithromycin 500 [...] Start : 26-Jun-2008 End : 04-Dec-2008 Discontinued ezetimibe 10 mg oral tablet (20 sources) [...] % OIL Apply as directed FLUOCINOLONE ACETONIDE [id number] Joel Judge MD FreeStyle Jerri 14 Day [place] Device (20 sources) Start: 03-13-2021 End: 03-22-2021 FreeStyle Jerri 14 Day [place] Device 1 (one) Device uad for 0 days Quantity: 1 {Package} Refills: 0 Ordered: 22-Mar-2021 Dante Salmon LPN Start : 13-Mar-2021 End : 22-Mar-2021 Inactive Comments: BILL UNDER MEDICARE PART B Start: 03-13-2021 FreeStyle Libr e 14 Day [place] Device 1 (one) Device uad for 0 days Quantity: 1 {Package} Refills: 0 Ordered: 13-Mar-2021 Joseph HARRISON Arlet Joseph HARRISON, Arlet Start : 13-Mar-2021 Active Comments: BILL UNDER MEDICARE PART B Start: 03-11-2021 FreeStyle Libr e 14 Day [place] Device 1 (one) Device uad for 0 days Quantity: 1 {Package} Refills: 0 Ordered: 11-Mar-2021 Joseph HARRISON Arlet Ciesa HUNTER, Arlet Start : 11-Mar-2021 Active Comment on [...] BILL UNDER MEDICARE PART B Start: 03-11-2021 Elke Mccloud e 14 Day Sensor Miscellaneous as directed for 0 days Quantity: 2 {Package} Refills: 0 Ordered: 11-Mar-2021 Teresita Ruiz CNP, CNP, Mary E Start : 11-Mar-2021 Active Comment on above: BILL UNDER MEDICARE PART B glimepiride 2 mg oral tablet (20 sources) Sulfonylurea Start: End: take 1 tablet by mouth twice daily Glimepiride 2 mg tablet Discontinued 2 mg PO TWICE A DAY May 07, 2021 12:00am June 01, 2024 2:45pm Start: 01-02-2020 take 1 tablet by meg [...] One tablet by mouth twice daily GLIMEPIRIDE [id number] Joel Judge MD Start: 06-29-2012 take 1 tablet by meg th twice daily GLIMEPIRIDE 2 MG TABS One tablet by mouth twice daily GLIMEPIRIDE [id number] Joel Judge MD Glucagon Hcl (Glucagon (Hcl) Emergency Kit) 1 mg recon soln (4 sources) Start: 07-28-2024 End: 06-10-2025 Glucagon Hcl (Glucagon (Hcl) Emergency Kit) 1 mg recon soln Discontinued 1 mg SC Q20M as needed for HYPOGLYCEMIA July 28, 2024 12:00am June 10, 2025 2:58pm until target blood sugar attained Start: 07-28-2024 Glucagon Hcl ( Glucagon (Hcl) Emergency Kit) 1 mg recon soln Active 1 mg SC Q20M as needed for HYPOGLYCEMIA July 28, 2024 12:00am until target blood sugar attained glucose tablets (4 sources) Start: 07-28-2024 End: 08-22-2024 glucose tablets Discontinued [...] 04-Dec-2008 Discontinued guaiFENesin 20 mg/ml oral solution (4 sources) Start: 10-09-2020 End: 05-07-2021 take 200 mg [...] snacks Active hydroCHLOROthiazide 25 mg oral tablet (20 sources) Thiazide Diuretic Start: 05-07-2021 End: 06-10-2025 take 1 tablet by mouth once daily Hydrochlorothiazide 25 mg tablet Discontinued 25 mg PO DAILY 90 3 May 07, 2021 12:00am June 10, 2025 2:58pm BLOOD PRESSURE hydroCHLOROthiazide 25 mg / telmisartan 80 mg [...] End : 27-Dec-2019 Inactive Insulin Degludec (Tresiba Flextouch U-100) 100 unit/mL (3 mL) insulin pen (12 sources) Start: 03-13-2025 End: 06-10-2025 Insulin Degludec (Tresiba Flextouch U-100) 100 unit/mL (3 mL) insulin pen Discontinued 16 U SC TWICE A DAY March 13, 2025 10:32am June 10, 2025 2:59pm diabetes Start: 03-13-2025 Insulin Deglud ec (Tresiba Flextouch [...] 2024 12:00am February 23, 2025 10:12pm DIABETES Insulin Degludec (Tresiba U-100 Insulin) 100 unit/mL solution (4 sources) Start: 07-28-2024 End: 08-22-2024 Insulin Degludec (Tresiba [...] Quantity: 3 {Pre-filled_Pen_Syringe} Refills: 3 Ordered: 15-Oct-2021 Teresita Ruiz Start : 15-Oct-2021 Active Start: 10-09-2020 End: 06-01-2024 Insulin Detemir U-100 100 un it/mL (3 mL) insulin pen Discontinued 20 U SC DAILY 18 1 October 09, 2020 11:01am June 01, 2024 [...] 70 units SQ twice daily INSULIN DETEMIR [id number] Jonelle Ortez RN Start: 02-07-2014 take 55 [IU] by subc utaneous injection twice daily LEVEMIR 100 UNIT/ML SOLN 55 units SQ twice daily INSULIN DETEMIR [id number] Joel Judge MD Start: 02-07-2014 take 80 [IU] by subc utaneous injection twice daily LEVEMIR 100 UNIT/ML SOLN 80 units SQ twice daily INSULIN DETEMIR [id number] Rohini Díaz PA-C Start: 02-04-2013 take 1 [IU] by subcu taneous injection twice daily LEVEMIR 100 UNIT/ML SOLN 40n units SQ twice daily INSULIN DETEMIR [id number] Joel Judge MD 3 ml insulin aspart, human 100 unt/ml pen injector (20 sources) Insulin Analogue Start: 03-13-2025 End: 06-10-2025 Insulin Aspart (Niacinamide) (Fiasp Flextouch U-100 Insulin) 100 unit/mL (3 mL) insulin pen Discontinued 20 U SC THREE TIMES A DAY 02 04March 13, 2025 12:00am June 10, 2025 2:59pm Type 2 diabetes mellitus Type 2 diabetes mellitus without complications [facility] (current) use of insulin diabetes Start: 02-23-2025 End: 03-13-2025 Insulin Aspart U-100 (Novolo g Flexpen U-100 Insulin) 100 unit/mL (3 mL) insulin pen Discontinued 5 U SC THREE TIMES A DAY 4.5 30 3 February 23, 2025 12:00am March 13, 2025 1:36pm Start: 02-08-2025 End: 02-13-2025 Insulin Aspart U-100 (Novolo g U-100 Insulin Aspart) 100 unit/mL solution Discontinued 5 U SC THREE TIMES A DAY 10 February 08, 2025 12:00am February 13, 2025 [...] U SC THREE TIMES A DAY 45 4 October 09, 2020 1:00am July 28, 2024 4:15pm Start: 06-29-2012 take 25 [IU] by subc utaneous injection in the morning NOVOLOG FLEXPEN 100 UNIT/ML SOLN 25 units sq in the am and in the evening INSULIN ASPART [id number] Joel Judge MD Start: 06-29-2012 End: 01-24-2015 take 25 [IU] by subcutaneous injection in the morning NOVOLOG FLEXPEN 100 UNIT/ML SOLN 25 units sq in the am and in the evening INSULIN ASPART [id number] Jonelle Ortez RN ketoconazole 20 mg/ml topical cream (16 sources) Azole Antifungal Start: 07-28-2024 End: 06-10-2025 Ketoconazole 2 % shampoo Discontinued 1 NMA TOPICAL DIRECTED as needed for FUNGAL INFECTION August 22, 2024 12:00am June 10, 2025 2:59pm APPLY SHAMPOO TOPICALLY TWICE A WEEK NEEDED Start: 07-28-2024 End: 06-10-2025 Ketoconazole 2 % cream Disco ntinued 1 NMA TOPICAL DAILY as needed for FUNGAL INFECTION August 22, 2024 12:00am June 10, 2025 2:59pm LIRAGLUTIDE SOLN (6 sources) GLP-1 Receptor Agonist Start: 02-07-2014 End: 08-09-2014 VICTOZA SOPN 1.8mg, 0.6 mg SQ once a day LIRAGLUTIDE SOLN [id number] Rohini Díaz PA-C Start: 02-07-2014 VICTOZA SOPN 1 .8mg, 0.6 mg SQ once a day LIRAGLUTIDE SOLN [id number] Joel Judge MD lisinopril 20 mg oral tablet (20 sources) Angiotensin Converting Enzyme Inhibitor Start: 06-23-2012 take 1 tablet by mouth once daily LISINOPRIL 10 MG TABS One tablet by mouth daily LISINOPRIL [id number] Joel Judge MD Start: 06-14-2010 End: 12-27-2019 take 1 tablet by mouth twice daily Lisinopril 20 MG tablet Discontinued 20 mg PO TWICE A DAY July 25, 2014 12:00am December 31, 2017 2:28pm losartan potassium 100 mg oral tablet (20 sources) Angiotensin 2 Receptor Rita Start: 12-31-2017 End: 02-13-2025 take 1 tablet by mouth once daily Losartan 100 mg tablet Discontinued 100 mg PO daily 90 3 September 10, 2020 6:40pm August 22, 2024 6:06pm Start: 01-31-2015 take 1 tablet by meg once daily LOSARTAN POTASSIUM 100 MG TABS One tablet by mouth daily LOSARTAN POTASSIUM [id number] Rohini Díaz PA-C magnesium (3 sources) Start: 01-24-2015 take 1 tablet by mouth once daily MAGNESIUM CAPS slo mag. One tablet by mouth daily MAGNESIUM CAPS [id number] Joel Judge MD Magnesium Chloride Crystals (20 sources) Magnesium Chlori de Crystals daily Active MAGNESIUM CHLORIDE-CALCIUM (3 sources) Start: 01-24-2015 take 1 tablet by mouth once daily SLOW MAGNESIUM/CALCIUM 64-106 MG ORAL TBEC One tablet by mouth daily MAGNESIUM CHLORIDE-CALCIUM [id number] Joel Judge MD magnesium oxide 400 mg oral capsule (3 sources) Start: 01-24-2015 take 1 tablet by mouth once daily MAGNESIUM OXIDE 400 MG CAPS One tablet by mouth daily MAGNESIUM OXIDE [id number] Rohini Díaz PA-C omeprazole 40 mg delayed release oral capsule (20 sources) Proton Pump Inhibitor Start: 06-29-2012 End: 10-09-2020 take 1 capsule by mouth once daily Omeprazole 40 MG capsule Discontinued 40 mg PO DAILY 30 July 26, 2014 1:35pm October 09, 2020 10:41am Start: 06-29-2012 take 1 tablet by meg th once daily OMEPRAZOLE 20 MG CPDR One tablet by mouth daily OMEPRAZOLE [id number] Rohini Díaz PA-C oxyCODONE hydrochloride 5 mg oral capsule (8 sources) Opioid Agonist Start: 03-13-2025 End: 06-10-2025 take 1 capsule by mouth twice daily as needed for pain Oxycodone 5 mg capsule Discontinued 5 mg PO TWICE A DAY as needed for pain 0 March 13, 2025 12:00am June 10, 2025 3:01pm Start: 08-23-2024 End: 02-13-2025 take 1 tablet by mouth every six hours as needed for pain Oxycodone 5 mg Tablet Discontinued 5 mg PO EVERY 6 HOURS as needed for pain 20 5 0 August 23, 2024 February 13, 2025 11:08am Intractable back pain Dorsalgia, unspecified pantoprazole 40 mg delayed release oral tablet [...] 45mg daily in the evening PIOGLITAZONE HCL [id number] Joel Judge MD Start: 06-14-2010 End: 12-27-2019 take 1 tablet by mouth once daily Actos 15 MG Oral Tablet 1 (one) Tablet qd for 0 days Quantity: 90 {Tablet} Refills: 3 Ordered: 27-Dec-2019 Dante Salmon LPN Start : 14-Jun-2010 End : 27-Dec-2019 Inactive rimegepant 75 mg disintegrating oral tablet (4 sources) Start: 06-01-2024 End: 07-28-2024 take 1 tablet by mouth once as needed Rimegepant (Nurtec Odt) 75 mg tablet,disintegrating Discontinued 75 mg PO ONCE as needed June 01, 2024 12:00am July 28, 2024 4:14pm as a single dose rivaroxaban 10 mg oral tablet (6 sources) Factor Xa Inhibitor Start: 06-23-2012 End: 06-29-2012 take 1 tablet by mouth once daily XARELTO 10 MG TABS One tablet by mouth daily RIVAROXABAN [id number] Joel Judge MD rosiglitazone 4 mg oral tablet (20 sources) Peroxisome Proliferator Receptor gamma Agonist, Thiazolidinedione Start: 03-05-2009 End: 03-05-2009 take 1 tablet by mouth once daily AVANDIA, 4MG (Oral Tablet) 1 Tablet QD for 0 days Quantity: 90 {Tablet} Refills: 3 Ordered: 05-Mar-2009 Maria Del Rosario Machado DO Start : 05-Mar-2009 End : 05-Mar-2009 Discontinued Semaglutide (12 sources) Start: 08-22-2024 End: 08-22-2024 Semaglutide (Ozempic) [...] 2024 4:56pm simvastatin 20 mg oral tablet (7 sources) HMG-CoA Reductase Inhibitor Start: 06-29-2012 End: 12-31-2017 take 1 tablet by mouth at bedtime Simvastatin 20 MG tablet Discontinued 20 mg PO AT BEDTIME July 25, 2014 12:00am December 31, 2017 2:30pm tiZANidine 2 mg oral capsule (8 sources) Central alpha-2 Adrenergic Agonist Start: 03-13-2025 End: 06-10-2025 take 1 capsule by mouth every eight hours as needed Tizanidine 2 mg capsule Discontinued 2 mg PO Q8H as needed for muscle spasticity March 13, 2025 12:00am June 10, 2025 3:01pm Start: 08-23-2024 End: 02-13-2025 take 1 tablet by mouth every eight hours as needed Tizanidine 2 mg Tablet Discontinued 2 mg PO EVERY 8 HOURS as needed for muscle spasticity 15 0 August 23, 2024 2:31pm February 13, 2025 11:09am triamcinolone acetonide 0.055 mg/actuat metered dose nasal [...] Start : 03-Jul-2008 End : 04-Dec-2008 Discontinued trolamine salicylate 100 mg/ml topical cream (4 sources) Start: 07-28-2024 End: 06-10-2025 Trolamine Salicylate (Myoflex) 10 % cream Discontinued 1 NMA TOPICAL DAILY as needed for ARTHRITIS July 28, 2024 12:00am June 10, 2025 3:01pm ubrogepant 100 mg oral tablet (4 sources) Start: 06-01-2024 End: 07-28-2024 take 1 tablet [...] tablet by mouth daily B COMPLEX VITAMINS [id number] Joel Judge MD Start: 06-29-2012 End: 01-24-2015 take 1 tablet by mouth once daily VITAMIN B COMPLEX TABS One tablet by mouth daily B COMPLEX VITAMINS [id number] Jonelle Ortez RN CHOLECALCIFEROL TABS (6 sources) Start: 08-09-2014 End: 01-24-2015 VITAMIN D TABS weekly 08/09 CHOLECALCIFEROL TABS [id number] Jonelle Ortez RN Start: 08-09-2014 VITAMIN D TABS weekly CHOLECALCIFEROL TABS [id number] Rohini Díaz PA-C Vitamin D3 (20 sources) Vitamin D3 2000 IU Active Problems Active Problems Problem Classification Problem Date Documented Da te Episodic/Chronic Abdominal hernia (20 sources) Hiatal hernia; 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: [Hiatal hernia] 04-13-2020 Episodic Administrative/social admission (4 sources) Procedure needed 09-15-2024 Episodic Cardiac and circulatory [...] what is on label) on coumadin sees Avel ledezma Chronic kidney disease (8 sources) Chronic kidney disease; 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: [Chronic kidney disease, unspecified] 03-13-2025 Chronic Chronic kidney disease (2 sources) Chronic kidney disease; 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: [Chronic kidney disease, stage 3a] Onset: 4 Chronic obstructive pulmonary disease and bronchiectasis (20 sources) Bronchitis; 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: [Bronchitis] Resolved: 9 12-26-2019 Episodic Chronic obstructive pulmonary disease and bronchiectasis (20 sources) Chronic obstructive pulmonary disease and bronchiectasis Coagulation and hemorrhagic disorders (5 sources) Other thrombophilia; 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: [Hypercoagulable state due to atrial fibrillation] Onset: 4 08-31-2024 Chronic Complication of device; implant or graft (6 sources) Arteriosclerosis of coronary artery bypass graft; 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: [Atherosclerosis of coronary artery bypass graft(s) without angina pectoris] Onset: 4 Resolved: 4 02-13-2014 Chronic Coronary atherosclerosis and other heart disease (10 sources) Atherosclerotic heart disease of [place] coronary artery without angina pectoris; 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: [Non-obstructive [...] 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: [Migraine] 04-13-2020 Chronic Heart valve disorders (20 sources) Aortic valve stenosis; 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: [Aortic stenosis, non-rheumatic ] Onset: 4 02-13-2014 Chronic Comment on above: 2021 Immunizations and screening for infectious disease (20 sources) Need for prophylactic vaccination and inoculation against influenza; 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: [Needs influenza immunization] 07-16-2020 Episodic Malaise and fatigue (16 sources) Asthenia; 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: [Weakness] Onset: 4 01-10-2022 Episodic Nonspecific chest pain (20 sources) Chest [...] Comment on above: on coumadin Other aftercare (10 sources) Long-term current use of anticoagulant; 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: [[facility] (current) use of anticoagulants] 06-03-2024 Episodic Other aftercare (4 sources) Post-discharge follow-up; 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: [Encounter for follow-up examination after completed treatment for conditions other than malignant neoplasm] 09-15-2024 Episodic Other aftercare (2 sources) [facility] (current) use of insulin; 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: [terminologist (current) use of insulin] Onset: 4 Episodic Other and ill-defined heart disease (3 [...] arms comes and goes Other endocrine disorders (4 sources) Hypoglycemia; 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: [Hypoglycemia, unspecified] 01-10-2022 Chronic Other [...] diseases (20 sources) Fatty liver Chronic Other liver diseases (3 sources) Increased bilirubin level; 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: [Unspecified jaundice] 05-29-2025 Episodic Other lower respiratory disease (20 sources) Cough; 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: [Cough] Resolved: 9 12-26-2019 Episodic Other nervous system disorders (4 sources) Carpal tunnel syndrome; 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: [Carpal tunnel syndrome, [...] Chronic Other nutritional; endocrine; and metabolic disorders (8 sources) Obesity; 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: [Obesity, unspecified] 03-13-2025 Chronic Other nutritional; endocrine; and metabolic disorders (6 sources) H/O: diabetes mellitus; 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: [Personal history of other endocrine, nutritional and metabolic disease] 06-06-2025 Episodic Other skin disorders (20 sources) Non-scarring alopecia; 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: [Nonscarring hair loss, unspecified] 04-13-2020 Episodic Other upper respiratory disease (20 sources) Allergic rhinitis due to other allergen; 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: [Allergic rhinitis] Chronic Other upper respiratory disease (20 sources) Allergic rhinitis; 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: [Allergic rhinitis due to other allergen] 04-13-2020 Chronic Comment on above: chronic stable-alton nue present regimen Other upper respiratory disease (4 sources) Seasonal allergy; 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: [Other seasonal allergic rhinitis] 07-28-2024 Chronic Other upper respiratory infections (20 sources) Acute pharyngitis; 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: [Pharyngitis, acute] Resolved: 9 08-21-2015 Episodic Pulmonary heart disease (5 sources) Pulmonary arterial hypertension; 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: [Secondary pulmonary [...] 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: [Nonsmoker] 02-27-2021 Episodic Residual codes; unclassified (4 sources) H/O: blood transfusion; 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: [Personal history of other medical treatment] 07-28-2024 Episodic Residual codes; unclassified (6 sources) 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 limb edema; 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: [Localized edema] 05-29-2025 Episodic Residual codes; unclassified (6 sources) Disturbance of consciousness; 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: [Transient alteration of awareness] 06-06-2025 Episodic Residual codes; unclassified (6 sources) Acute confusion; 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: [Disorientation, unspecified] 06-06-2025 Episodic Residual codes; unclassified (1 source) Disorientation, unspecified; 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: [Disorientation, unspecified] Onset: 5 Episodic Screening and history of mental health and substance abuse codes (7 sources) H/O: dementia; 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: [Personal history of other mental and behavioral disorders] Onset: 5 06-06-2025 Episodic Thyroid disorders (20 sources) Hypothyroidism; 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: [Thyroid nodule] Onset: 4 04-13-2020 Chronic Unclassified (6 sources) Body mass index (BMI) 40.0-44.9, adult; 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: [Body mass index (BMI) 45.0-49.9, adult] Onset: 4 02-07-2014 Chronic Unclassified (6 sources) Long-term drug therapy; 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: [Other oil heaterman (current) drug therapy] Onset: 2 03-18-2016 Unclassified [...] Unclassified (20 sources) Knee pain, bilateral Unclassified (3 sources) E11.9 - Type 2 diabetes mellitus without complications,Z79.4 - terminologist (current) use of insulin Unclassified (1 source) Chronic atrial fibrillation, unspecified; 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: [Chronic atrial fibrillation, unspecified] Onset: 5 Unclassified (1 source) Low back pain, unspecified; 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: [Low back pain, unspecified] Onset: 4 Unclassified (2 sources) Other persistent atrial fibrillation; 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: [Other persistent atrial fibrillation] Onset: 4 Viral infection (20 sources) Other specified viral infection; 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: [COVID-19] 11-08-2020 Episodic Comment on above: presented worsening diarrhea, notivied 12 Day #23 Past or Other Problems Problem Classification Problem Date Documented Date Episodic/Chronic Cardiac dysrhythmias (6 sources) Palpitations; 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: [Palpitations] Onset: 02-03-2013 Resolved: 06-26-2015 06-26-2015 Episodic Cardiac dysrhythmias (20 sources) Cardiac dysrhythmias Influenza (20 sources) Influenza Other aftercare (1 source) terminologist (current) use of anticoagulants; 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: [terminologist (current) use of anticoagulants] Onset: 03-15-2025 Episodic Other aftercare (1 source) Encounter for [...] Spondylosis; intervertebral disc disorders; other back problems (19 sources) Backache; 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: [Dorsalgia, unspecified] Onset: 08-23-2024 [...] Test Name Value Interpretation Reference Range Facility International normalized rat io (INR) measurement by fingerstickOrdered By: Elkin Avila on 06-13-2025 INR Coag (BldC) [Relative time] 1.4 [facility] Comment on above: Critical Value > 4.0 Protime w/INR Fingerstickon 06-13-2025 INR Coag (PPP) [Relative time] 1.4 {INR} Normal [facility] Comment on above: Result Comment: Crit ical Value > 4.0 Performed By: #### L 9200.0000 ####[facility] [id number] [place], [place], [id number] Protime Coagsen 16.6 SEC High 11.7-14.9 [facility] Comment on above: Performed By: #### L 9200.0000 ####[facility] [id number] [place], [place], [id number] Whole blood prothrombin time Ordered By: Elkin Avila on 06-13-2025 PT Coag (Bld) [Time] 16.6 s High 11.7-14.9 [facility] Culture, Blood (WB)on 2024 CUB Blood cultures x2, f rom two different sites No growth in 5 days. [facility] Comment on above: Performed By: #### L 300.3900, M200.1000, L300.4310, L503.6005, L100.0100, L500.4050 ####[facility] [id number] [place], [place], [id number] CUB Blood cultures x2, f rom two different sites No growth in 5 days. Normal [facility] Comment on above: Performed By: #### M 200.1000 ####[facility] [id number] [place], [address] Anion gap in Serum or Plasma Ordered By: Todd Lane on 06-10-2025 Anion gap [Moles/Vol] 12 mmol/L 03-30 [facility] BUN/creatinine ratioOrdered By: Todd Ariana on 06-10-2025 Urea nitrogen/Creatinine [Mass ratio] 18.4 mg/mg - [facility] Basic Metabolic Profile (BMP )on 06-10-2025 BUN/CRE 18.4 RATIO Normal 09-04 [facility] Comment on above: Performed By: #### L 300.3900, L500.2500 ####[facility] [id number] [place], [address] ECRCL 29.79 ml/min Low 50-250 [facility] Comment on above: Performed By: #### L 300.3900, L500.2500 ####[facility] [id number] [place], [address] GAP 12 Normal 03-30 [facility] Comment on above: Performed By: #### L 300.3900, L500.2500 ####[facility] [id number] [place], [address] Potassium [Moles/Vol] 4.0 mmol/L Normal 3.3-5.1 [facility] Comment on above: Performed By: #### L 300.3900, L500.2500 ####[facility] [address] [place], [address] Bedside Glucoseon 06-10-2025 FINGERSTICK GLU 193 mg/dL High 74-106 [facility] Comment on above: Result Comment: TONI GEMENT OF PATIENT CARE PER NURSING PROTOCOL Performed By: #### L 501.080 ####[facility] [address] [place], [address] FINGERSTICK GLU 313 mg/dL High 74-106 [facility] Comment on above: Result Comment: TONI GEMENT OF PATIENT CARE PER NURSING PROTOCOL Performed By: #### L 501.080 ####[facility] [address] [place], [address] FINGERSTICK GLU 198 mg/dL High 74-106 [facility] Comment on above: Result Comment: TONI KINSEY OF PATIENT CARE PER NURSING PROTOCOL Performed By: #### L 501.080 ####[facility] [id number] [place], [address] Carbon dioxide, total [Moles /volume] in Central venous bloodOrdered By: Todd Lane on 06-10-2025 CO2 [Moles/Vol] 26.9 mmol/L Normal 21.0-32.0 [facility] Comment on above: Performed By: #### L 300.3900, L500.2500 ####[facility] [id number] [place], [address] Chloride assayOrdered By: Gracia Lane on 06-10-2025 Chloride [Moles/Vol] 97 mmol/L Low 98-108 [facility] Comment on above: Performed By: #### L 300.3900, L500.2500 ####[facility] [id number] [place], [address] Glomerular filtration rate ( GFR) estimation/1.73 sq m using serum, plasma, or whole bOrdered By: Todd Lane on 06-10-2025 GFR/1.73 sq M.predicted among non-blacks MDRD (S/P/Bld) [Vol rate/Area] 30 mL/min/{1.73_m2} Low >60 [facility] Comment on above: mL/min/1.73m2 CKD-EP I Creatinine Equation (2020) Result Comment: mL/m in/1.73m2 CKD-EPI Creatinine Equation (2020) Performed By: #### L 300.3900, L500.2500 ####[facility] [id number] [place], [address] Glucose measurement at [facility] deOrdered By: Todd Lane on 06-10-2025 Glucose [Mass/Vol] 193 mg/dL High 74-106 [facility] Comment on above: MANAGEMENT OF PATIEN T CARE PER NURSING PROTOCOL International normalized rat io (INR) calculationOrdered By: Todd Lane on 06-10-2025 INR Coag (Bld) [Relative time] 1.6 {INR} [facility] Potassium measurement (mass/ volume)Ordered By: Todd Lane on 06-10-2025 Potassium (Unsp spec) [Mass/Vol] 4.0 mmol/L 3.3-5.1 [facility] Prothrombin Time w/INRon INR Coag (PPP) [Relative time] 1.6 {INR} Normal [facility] Comment on above: Performed By: #### L 300.3900, L500.2500 ####[facility] [address] [place], [address] Prothrombin timeOrdered By: Todd Lane on 06-10-2025 PT Coag (PPP) [Time] 19.7 s High 11.7-14.9 [facility] Comment on above: Performed By: #### L 300.3900, L500.2500 ####[facility] [address] [place], [address] Serum creatinine measurement (mass/volume)Ordered By: Todd Lane on 06-10-2025 Creatinine [Mass/Vol] 1.67 mg/dL High 0.70-1.20 [facility] Comment on above: Performed By: #### L 300.3900, L500.2500 ####[facility] [address] [place], [address] Serum glucose measurement (m ass/volume)Ordered By: Todd Lane on 06-10-2025 Glucose [Mass/Vol] 197 mg/dL High 70-99 [facility] Comment on above: Performed By: #### L 300.3900, L500.2500 ####[facility] [address] [place], [address] Serum or plasma calcium shaniqua urement (mass/volume)Ordered By: Todd Lane on 06-10-2025 Calcium [Mass/Vol] 9.0 mg/dL Normal 7.6-11.0 [facility] Comment on above: Performed By: #### L 300.3900, L500.2500 ####[facility] [address] [place], [address] Serum or plasma urea nitroge n measurement (mass/volume)Ordered By: Todd Lane on 06-10-2025 Urea nitrogen [Mass/Vol] 31 mg/dL High 4-19 [facility] Comment on above: Performed By: #### L 300.3900, L500.2500 ####[facility] [address] [place], [address] Sodium levelOrdered By: Todd Lane on 06-10-2025 Sodium [Moles/Vol] 136 mmol/L Normal 133-145 [facility] Comment on above: Performed By: #### L 300.3900, L500.2500 ####[facility] [address] [place], [address] Basic Metabolic Profile (BMP )on 06-09-2025 BUN/CRE 19.5 RATIO Normal 10-20 [facility] Comment on above: Performed By: #### L 300.3900, L500.2500 ####[facility] [address] [place], [address] Calcium [Mass/Vol] 8.9 mg/dL Normal 7.6-11.0 [facility] Comment on above: Performed By: #### L 300.3900, L500.2500 ####[facility] [address] [place], [address] Chloride [Moles/Vol] 99 mmol/L Normal 98-108 [facility] Comment on above: Performed By: #### L 300.3900, L500.2500 ####[facility] [address] [place], [address] CO2 [Moles/Vol] 29.8 mmol/L Normal 21.0-32.0 [facility] Comment on above: Performed By: #### L 300.3900, L500.2500 ####[facility] [address] [place], [address] Creatinine [Mass/Vol] 0.68 mg/dL Low 0.70-1.20 [facility] Comment on above: Performed By: #### L 300.3900, L500.2500 ####[facility] [address] [place], [address] ECRCL 61.81 ml/min Normal 50-250 [facility] Comment on above: Performed By: #### L 300.3900, L500.2500 ####[facility] [address] [place], [address] GAP 11 Normal 5-15 [facility] Comment on above: Performed By: #### L 300.3900, L500.2500 ####[facility] [address] [place], [address] GFR/1.73 sq M.predicted among non-blacks MDRD (S/P/Bld) [Vol rate/Area] 86 mL/min/{1.73_m2} Normal >60 [facility] Comment on above: Result Comment: mL/m in/1.73m2 CKD-EPI Creatinine Equation (2020) Performed By: #### L 300.3900, L500.2500 ####[facility] [address] [place], [address] Glucose [Mass/Vol] 191 mg/dL High 70-99 [facility] Comment on above: Performed By: #### L 300.3900, L500.2500 ####[facility] [address] [place], [address] Potassium [Moles/Vol] 3.1 mmol/L Low 3.3-5.1 [facility] Comment on above: Performed By: #### L 300.3900, L500.2500 ####[facility] [address] [place], [address] Sodium [Moles/Vol] 140 mmol/L Normal 133-145 [facility] Comment on above: Performed By: #### L 300.3900, L500.2500 ####[facility] [address] [place], [address] Urea nitrogen [Mass/Vol] 13 mg/dL Normal 4-19 [facility] Comment on above: Performed By: #### L 300.3900, L500.2500 ####[facility] [address] [place], [address] Bedside Glucoseon 06-09-2025 FINGERSTICK GLU 248 mg/dL High [address] [place] [address] Comment on above: Result Comment: TONI GEMENT OF PATIENT CARE PER NURSING PROTOCOL Performed By: #### L 501.080 ####[facility] [address] [place], [address] FINGERSTICK GLU 174 mg/dL High -106 [facility] Comment on above: Result Comment: TONI GEMENT OF PATIENT CARE PER NURSING PROTOCOL Performed By: #### L 501.080 ####[facility] [address] [place], [address] FINGERSTICK GLU 246 mg/dL High 74-106 [facility] Comment on above: Result Comment: TONI GEMENT OF PATIENT CARE PER NURSING PROTOCOL Performed By: #### L 501.080 ####[facility] [address] [place], [address] FINGERSTICK GLU 154 mg/dL High -106 [facility] Comment on above: Result Comment: TONI GEMENT OF PATIENT CARE PER NURSING PROTOCOL Performed By: #### L 501.080 ####[facility] [address] [place], [place], [address] Electrocardiogram reportOrde red By: She Lentz on 06-09-2025 EKG study [facility] Cardiovascular Services [address] [place] [address] 12 Lead EKG 06/07/25 2119 MR#: [id number] Acct: [id number] Name: VASILE MILLER Rep #:[id number] : 1940 84 From: She willams MD Attending Dr: Dr. Todd Lane, Status: ADM IN Ordering Dr: Jana Reardon MD Date: 06/07/25 Location: [facility] Sex: F C Admitted: 06/06/25 Test Reason : STROKE ALERT Blood Pressure : */* mmHG Vent. Rate : 105 BPM Atrial Rate : * BPM P-R Int : * ms QRS Dur : 142 ms QT Int : 350 ms P-R-T Axes : * 99 149 degrees QTcB Int : 462 ms Poor data quality, interpretation may be adversely affected Atrial fibrillation with rapid ventricular response Rightward axis Non-specific intra-ventricular conduction block T wave abnormality, consider lateral ischemia Abnormal ECG When compared with ECG of 06-Jun-2025 19:22, QT has shortened Confirmed by TOR WEBB, LAILA ([id number]), offline editor PATRICK DE LA VEGA ([id number]) on 06/09/2025 1:21:02 PM Referred By: Alexys Confirmed By: LAILA LENTZ MD 06/09/25 1321 Date _ She Lentz MD CC: Dr. Jana Reardon MD; Dr. Terrell Schafer MD; Dr. Todd Lane, ~ Signed [facility] Work Phone: EKG study [facility] Cardiovascular Services [address] [place] [address] 12 Lead EKG 06/08/25 0039 MR#: [id number] Acct: [id number] Name: VASILE MILLER Rep #:[id number] : 1940 84 From: She willams MD Attending Dr: Dr. Todd Lane, DO Status: ADM IN Ordering Dr: Jana Reardon MD Date: 06/08/25 Location: [facility] Sex: F C Admitted: 06/06/25 Test Reason : RHYTHM CHANGE Blood Pressure : */* mmHG Vent. Rate : 113 BPM Atrial Rate : * BPM P-R Int : * ms QRS Dur : 144 ms QT Int : 392 ms P-R-T Axes : * 135 125 degrees QTcB Int : 537 ms Atrial fibrillation with rapid ventricular response with premature ventricular or aberrantly conducted complexes Right axis deviation Non-specific intra-ventricular conduction block Abnormal ECG When compared with ECG of 07-Jun-2025 23:02, MANUAL COMPARISON REQUIRED DATA IS UNCONFIRMED Confirmed by TOR WEBB, LAILA ([id number]), offline editor PATRICK DE LA VEGA ([id number]) on 06/09/2025 1:20:17 PM Referred By: ALEXYS Confirmed By: LAILA LENTZ MD 06/09/25 1320 Date _ She Lentz MD CC: Dr. Jana Reardon MD; Dr. Terrell Schafer MD; Dr. Todd Lane, DO ~ Signed [facility] Work Phone: EKG study [facility] Cardiovascular Services [address] [place] [address] 12 Lead EKG 06/07/25 2302 MR#: [id number] Acct: [id number] Name: VASILE MILLER Rep #:[id number] : 1940 84 From: She willams MD Attending Dr: Dr. Todd Lane, DO Status: ADM IN Ordering Dr: Jana Reardon MD Date: 06/07/25 Location: [facility] Sex: F C Admitted: 06/06/25 Test Reason : TACHYCARDIA Blood Pressure : */* mmHG Vent. Rate : 175 BPM Atrial Rate : 122 BPM P-R Int : * ms QRS Dur : 132 ms QT Int : 234 ms P-R-T Axes : * -79 207 degrees QTcB Int : 399 ms Critical Test Result: High HR afib with RVR Left axis deviation Non-specific intra-ventricular conduction block Minimal voltage criteria for LVH, may be normal variant ( Moshe product ) Cannot rule out Septal infarct , age undetermined Marked ST abnormality, possible anterior subendocardial injury Abnormal ECG When compared with ECG of 07-Jun-2025 21:19, MANUAL COMPARISON REQUIRED DATA IS UNCONFIRMED Confirmed by TOR WEBB, LAILA ([id number]), offline editor PATRICK DE LA VEGA ([id number]) on 06/09/2025 1:20:46 PM Referred By: ALEXYS Confirmed By: LAILA LENTZ MD 06/09/25 1320 Date _ She Lentz MD CC: Dr. Jana Reardon MD; Dr. Terrell Schafer MD; Dr. Todd Lane, DO ~ Signed [facility] Work Phone: Prothrombin Time w/INRon INR Coag (PPP) [Relative time] 1.6 {INR} Normal [facility] Comment on above: Performed By: #### L 300.3900, L500.2500 ####[facility] [address] [place], [place], [id number] PT Coag (PPP) [Time] 19.7 s High 11.7-14.9 [facility] Comment on above: Performed By: #### L 300.3900, L500.2500 ####[facility] [address] [place], [place], [address] 12 Lead EKGon 06-08-2025 12 Lead EKG Normal [facility] Basic Metabolic Profile (BMP )on 06-08-2025 BUN/CRE 18.5 RATIO Normal 10-20 [facility] Comment on above: Performed By: #### L 500.4100, L300.3900, L500.2500 ####[facility] [address] [place], [address] Calcium [Mass/Vol] 9.3 mg/dL Normal 7.6-11.0 [facility] Comment on above: Performed By: #### L 500.4100, L300.3900, L500.2500 ####[facility] [address] [place], [address] Chloride [Moles/Vol] 96 mmol/L Low 98-108 [facility] Comment on above: Performed By: #### L 500.4100, L300.3900, L500.2500 ####[facility] [address] [place], [address] CO2 [Moles/Vol] 20.0 mmol/L Low 21.0-32.0 [facility] Comment on above: Performed By: #### L 500.4100, L300.3900, L500.2500 ####[facility] [address] [place], [address] Creatinine [Mass/Vol] 0.93 mg/dL Normal 0.70-1.20 [facility] Comment on above: Performed By: #### L 500.4100, L300.3900, L500.2500 ####[facility] [address] [place], [address] ECRCL 54.24 ml/min Normal 50-250 [facility] Comment on above: Performed By: #### L 500.4100, L300.3900, L500.2500 ####[facility] [address] [place], [address] GAP 19 High 5-15 [facility] Comment on above: Performed By: #### L 500.4100, L300.3900, L500.2500 ####[facility] [address] [place], [address] GFR/1.73 sq M.predicted among non-blacks MDRD (S/P/Bld) [Vol rate/Area] 61 mL/min/{1.73_m2} Normal >60 [facility] Comment on above: Result Comment: mL/m in/1.73m2 CKD-EPI Creatinine Equation (2020) Performed By: #### L 500.4100, L300.3900, L500.2500 ####[facility] [address] [place], [address] Glucose [Mass/Vol] 277 mg/dL High 70-99 [facility] Comment on above: Performed By: #### L 500.4100, L300.3900, L500.2500 ####[facility] [address] [place], [address] Potassium [Moles/Vol] 3.7 mmol/L Normal 3.3-5.1 [facility] Comment on above: Performed By: #### L 500.4100, L300.3900, L500.2500 ####[facility] [address] [place], [address] Sodium [Moles/Vol] 135 mmol/L Normal 133-145 [facility] Comment on above: Performed By: #### L 500.4100, L300.3900, L500.2500 ####[facility] [address] [place], [address] Urea nitrogen [Mass/Vol] 17 mg/dL Normal 4-19 [facility] Comment on above: Performed By: #### L 500.4100, L300.3900, L500.2500 ####[facility] [address] [place], [address] Bedside Glucoseon 06-08-2025 FINGERSTICK GLU 173 mg/dL High 74-106 [facility] Comment on above: Result Comment: TONI GEMENT OF PATIENT CARE PER NURSING PROTOCOL Performed By: #### L 501.080 ####[facility] [address] [place], [address] FINGERSTICK GLU 175 mg/dL High 74-106 [facility] Comment on above: Result Comment: TONI GEMENT OF PATIENT CARE PER NURSING PROTOCOL Performed By: #### L 501.080 ####[facility] [address] [place], [address] FINGERSTICK GLU 183 mg/dL High 74-106 [facility] Comment on above: Result Comment: TONI GEMENT OF PATIENT CARE PER NURSING PROTOCOL Performed By: #### L 501.080 ####[facility] [address] [place], [address] FINGERSTICK GLU 259 mg/dL High 74-106 [facility] Comment on above: Result Comment: TONI GEMENT OF PATIENT CARE PER NURSING PROTOCOL Performed By: #### L 501.080 ####[facility] [address] [place], [address] Calculated very low density lipoprotein (VLDL) cholesterol measurementOrdered By: Jana Reardon on 06-08-2025 Calculated very low density lipoprotein (VLDL) cholesterol measurement 29 mg/dL 5-40 [facility] Echocardiogram study reportO rdered By: She Lentz on 06-08-2025 Study report [facility] Cardiovascular Services [address] [place] [address] Echo Complete 06/08/25 0813 MR#: [id number] Acct: [id number] Name: VASILE MILLER Rep #:[id number] : 1940 84 From: She villanueva MD Attending Dr: Dr. Todd Lane, DO Status: ADM IN Ordering Dr: Jana Reardon MD Date: 06/07/25 Location: [facility] Sex: F C Admitted: 06/06/25 Reason For Study Reason For Study: TIA/CVA Procedure This was a 2D Doppler, Color Flow transthoracic echocardiogram. Exam performed portable in patient room. Left Ventricle Normal LV size. The estimated ejection fraction is 60 %. Unable to assess diastolic dysfunction. No regional wall motion abnormalities noted. Right Ventricle Normal RV size. Normal systolic function. Atria The left atrium is mildly enlarged. Normal right atrium. No doppler evidence forASD. Mitral Valve There is moderate mitral annular calcification. There is no mitral valve stenosis. Mild (1+) mitral valve insufficiency. Tricuspid Valve There is no tricuspid stenosis. Mild tricuspid valve insufficiency. Pulmonary artery systolic pressure is 45 mmHg. Aortic Valve There is no aortic stenosis. No aortic valve insufficiency. Stable appearing bioprosthetic aortic valve apparatus. Pulmonic Valve There is no pulmonic valvular stenosis. No pulmonic valve insufficiency. Great Vessels Normal sized aortic root. Pericardium/Pleural No pericardial effusion. MMode/2D Measurements & Calculations LVIDd: 4.1 cm IVSd: 1.4 cm LVOT diam: 2.0 cm LVIDs: 2.7 cm LVPWd: 1.4 cm LVOT area: 3.2 cm2 RVDd: 3.6 cm FS: 35.5 % Ao root diam: 3.8 cm LAV(MOD-bp): 75.7 ml LVAd ap4: 25.1 cm2 LAV(MOD-bp) Indexed: 36.8 ml/m2 LVLd ap4: 7.0 cm LAV(MOD-sp2): 61.0 ml EDV(MOD-sp4): 76.3 ml LAV(MOD-sp4): 84.0 ml EDV(sp4-el): 75.6 ml LVAs ap4: 15.7 cm2 LVLs ap4: 6.3 cm ESV(MOD-sp4): 34.3 ml ESV(sp4-el): 32.8 ml EF(MOD-sp4): 55.0 % EF(sp4-el): 56.5 % LVAd ap2: 26.9 cm2 SV(MOD-sp4): 41.9 ml SV(MOD-sp2): 46.4 ml LVLd ap2: 7.6 cm SI(MOD-sp4): 20.4 ml/m2 SI(MOD-sp2): 22.6 ml/m2 EDV(MOD-sp2): 79.1 ml EDV(sp2-el): 80.9 ml LVAs ap2: 16.3 cm2 LVLs ap2: 6.9 cm ESV(MOD-sp2): 32.6 ml ESV(sp2-el): 32.7 ml EF(MOD-sp2): 58.7 % SV(sp4-el): 42.7 ml LA dimension(2D): 4.5 cm LA A4 area: 27.0 cm2 RA A4 area: 17.0 cm2 Doppler Measurements & Calculations MV E max yunier: 124.1 cm/sec Ao V2 max: 189.4 cm/sec LV V1 max: 141.2 cm/sec Ao max P.4 mmHg LV V1 max P.0 mmHg Ao V2 mean: 130.9 cm/sec LV V1 mean P.3 mmHg Ao mean P.7 mmHg LV V1 mean: 97.8 cm/sec Ao V2 VTI: 33.2 cm LV V1 VTI: 25.3 cm AV (velocity ratio): 0.76 KINSEY(I,D): 2.4 cm2 KINSEY(V,D): 2.4 cm2 SV(LVOT): 80.9 ml PA V2 max: 88.3 cm/sec TR max yunier: 339.4 cm/sec TR max P.1 mmHg ECHO/Echo Complete Interpretation Summary The estimated ejection fraction is 60 %. Unable to assess diastolic dysfunction. The left atrium is mildly enlarged. Mild (1+) mitral valve insufficiency. ___ Ordering Physician: Jana Reardon Referring Physician: Terrell Schafer Performed By: Natali Augustine RDCS 06/08/25 1145 Date _ She Lentz MD CC: Dr. Jana Reardon MD; Dr. Terrell Schafer MD; Dr. Todd Lane DO ~ Date Dictated: 06/08/25 08 Date Transcribed: 06/08/25 1145 Bulk Filler: Signed [facility] Work Phone: Hemoglobin A1con 06-08-2025 HbA1c (Bld) [Mass fraction] 8.9 % High <=5.6 [facility] Comment on above: Result Comment: Norm al < 5.7 % Prediabetic 5.7 - 6.4 % Diabetic >or= 6.5 % Please note range changes. Performed By: #### L 501.9985 ####[facility] [address] [place], [address] Hemoglobin A1c percentageOrd ered By: Jana Reardon on 06-08-2025 HbA1c (Bld) [Mass fraction] 8.9 % High <5.7 [facility] Comment on above: Normal < 5.7 % Predi abetic 5.7 - 6.4 % Diabetic >or= 6.5 % Please note range changes. LDL calc ser/plasOrdered By: Jana Reardon on 06-08-2025 Cholesterol in LDL [Mass/Vol] 50 mg/dL Normal [facility] Comment on above: Ajoiqaaars=247-918 m g/dL & Higher Dfsn=356 mg/dL or greater Result Comment: Bord gdqrer=634-061 mg/dL Higher Zczc=062 mg/dL or greater Performed By: #### L 500.4100, L300.3900, L500.2500 ####[facility] [address] [place], [address] Lipid Profileon 06-08-2025 CHOL:HDL 2.95 Normal [facility] Comment on above: Performed By: #### L 500.4100, L300.3900, L500.2500 ####[facility] [address] [place], [address] Cholesterol in VLDL [Mass/Vol] 29 mg/dL Normal 5-40 [facility] Comment on above: Performed By: #### L 500.4100, L300.3900, L500.2500 ####[facility] [address] [place], [address] Magnesiumon 06-08-2025 Magnesium [Mass/Vol] 1.7 mg/dL Normal 1.5-2.2 [facility] Comment on above: Order Comment: Comme nts: may add to ED labs Performed By: #### L 501.5200 ####[facility] [address] [place], [address] Magnesium measurement (mass/ volume)Ordered By: Jana Reardon on 06-08-2025 Magnesium (Unsp spec) [Mass/Vol] 1.7 mg/dL 1.5-2.2 [facility] Prothrombin Time w/INRon INR Coag (PPP) [Relative time] 1.3 {INR} Normal [facility] Comment on above: Performed By: #### L 500.4100, L300.3900, L500.2500 ####[facility] [address] [place], [address] PT Coag (PPP) [Time] 16.8 s High 11.7-14.9 [facility] Comment on above: Performed By: #### L 500.4100, L300.3900, L500.2500 ####[facility] [address] [place], [address] Screening total cholesterol/ high density lipoprotein (HDL) cholesterol ratioOrdered By: Jana Reardon on 06-08-2025 Cholesterol.total/Cho lesterol in HDL [Mass ratio] 2.95 {ratio} [facility] Serum or plasma cholesterol in HDL measurement (mass/volume)Ordered By: Jana Reardon on 06-08-2025 Cholesterol in HDL [Mass/Vol] 41 mg/dL Normal [facility] Comment on above: National Cholesterol Education Program (NCEP) guidelines:<40 mg/dL: Low HDL-cholesterol (major risk factor for CHD)>= 60 mg/dL: High HDL-cholesterol (negative risk factor for CHD)HDL-cholesterol is affected by a number of factors, e.g. smoking, exercise, hormones, sex and age. Result Comment: Milly onal Cholesterol Education Program (NCEP) guidelines:<40 mg/dL: Low HDL-cholesterol (major risk factor for CHD)>= 60 mg/dL: High HDL-cholesterol (negative risk factor forCHD)HDL-cholesterol is affected by a number of factors, e.g.smoking, exercise, hormones, sex and age. Performed By: #### L 500.4100, L300.3900, L500.2500 ####[facility] [address] [place], [address] Serum or plasma cholesterol measurement (mass/volume)Ordered By: Jana Reardon on 06-08-2025 Cholesterol [Mass/Vol] 120 mg/dL Normal <=200 [facility] Comment on above: Cholesterol level, D esirable <200 mg/dLBorderline high cholesterol 200-239 mg/dLHigh cholesterol >=240 mg/dLRecommendations of the NCEP Adult Treatment Panel for the following risk-cutoff thresholds for the [place] population. Result Comment: Chol esterol level, Desirable <200 mg/dLBorderline high cholesterol 200-239 mg/dLHigh cholesterol >=240 mg/dLRecommendations of the NCEP Adult Treatment Panel for thefollowing risk-cutoff thresholds for the [place] Americanpopulation. Performed By: #### L 500.4100, L300.3900, L500.2500 ####[facility] [address] [place], [address] Triglycerides measurementOrd ered By: Jana Reardon on 06-08-2025 Triglyceride [Mass/Vol] 146 mg/dL Normal [facility] Comment on above: The drugs N-Acetylcy steine and Metamizole may falsely depress this assay. Normal range: <150 mg/dLBorderline High: 150-199 mg/dLHigh: 200-499 mg/dLVery High: >500 mg/dL Result Comment: The drugs N-Acetylcysteine and Metamizole may falselydepress this assay.Normal range: <150 mg/dLBorderline High: 150-199 mg/dLHigh: 200-499 mg/dLVery High: >500 mg/dL Performed By: #### L 500.4100, L300.3900, L500.2500 ####[facility] [address] [place], [address] 12 Lead EKGon 06-07-2025 12 Lead EKG Normal [facility] 12 Lead EKG Normal [facility] Absolute lymphocyte countOrd ered By: Jana Alexys on 06-07-2025 Lymphocytes Auto (Unsp spec) [#/Vol] 1.27 10*3/uL 0.83-4.51 [facility] Absolute neutrophil countOrd ered By: [facility] Alexys on 06-07-2025 Neutrophils (Bld) [#/Vol] 3.9 10*3/uL 2.0-7.7 [facility] Automated lymphocyte count a s percentage of total leukocytesOrdered By: Jana Alexys on 06-07-2025 Lymphocytes/100 WBC Auto (Unsp spec) 20.9 % 19-41 [facility] Basophil percentageOrdered B y: Jana Alexys on 06-07-2025 Basophils/100 WBC (Bld) 0.3 % 0-1 [facility] Bedside Glucoseon 06-07-2025 FINGERSTICK GLU 149 mg/dL High 74-106 [facility] Comment on above: Result Comment: TONI GEMENT OF PATIENT CARE PER NURSING PROTOCOL Performed By: #### L 501.080 ####[facility] [address] [place], [address] FINGERSTICK GLU 214 mg/dL High 74-106 [facility] Comment on above: Result Comment: TONI GEMENT OF PATIENT CARE PER NURSING PROTOCOL Performed By: #### L 501.080 ####[facility] [address] [place], [place], [address] Bilirubin, totalOrdered By: Jana Reardon on 06-07-2025 Bilirubin [Mass/Vol] 1.22 mg/dL 0.00-1.30 [facility] CBC W/Diff, Automatedon 05-17 Absolute Lymph 1.27 X10 3/uL Normal 0.83-4.51 [facility] Comment on above: Performed By: #### L 500.4050, L100.0100, L300.3900, L501.9520 ####[facility] [address] [place], [address] Absolute Neut 3.9 X10 3/uL Normal 2.0-7.7 [facility] Comment on above: Performed By: #### L 500.4050, L100.0100, L300.3900, L501.9520 ####[facility] [address] [place], [address] Basophils/100 WBC (Bld) 0.3 % Normal 0-1 [facility] Comment on above: Performed By: #### L 500.4050, L100.0100, L300.3900, L501.9520 ####[facility] [address] [place], [address] Eosinophils/100 WBC (Bld) 2.3 % Normal 0-5 [facility] Comment on above: Performed By: #### L 500.4050, L100.0100, L300.3900, L501.9520 ####[facility] [address] [place], [address] Erythrocyte distribution width (RBC) [Ratio] 14.3 % Normal 11.6-14.6 [facility] Comment on above: Performed By: #### L 500.4050, L100.0100, L300.3900, L501.9520 ####[facility] [address] [place], [address] Hematocrit (Bld) [Volume fraction] 32.4 % Low 37-47 [facility] Comment on above: Performed By: #### L 500.4050, L100.0100, L300.3900, L501.9520 ####[facility] [address] [place], [address] Hemoglobin (Bld) [Mass/Vol] 10.7 g/dL Low 12.0-15.0 [facility] Comment on above: Performed By: #### L 500.4050, L100.0100, L300.3900, L501.9520 ####[facility] [address] [place], [address] IG% 0.700 Normal 0.0-0.9 [facility] Comment on above: Result Comment: IG% - Immature Granulocytes (promyelocytes, myelocytes andmetamyelocytes) > 1% indicates that a LEFT SHIFT is Present. Performed By: #### L 500.4050, L100.0100, L300.3900, [id number] ####[facility] [id number] [place], [address] Lymphocytes/100 WBC (Bld) 20.9 % Normal 19-41 [facility] Comment on above: Performed By: #### L 500.4050, L100.0100, L300.3900, [id number] ####[facility] [id number] [place], [address] MCH (RBC) [Entitic mass] 29.8 pg Normal 27.0-32.0 [facility] Comment on above: Performed By: #### L 500.4050, L100.0100, L300.3900, L501.9520 ####[facility] [address] [place], [address] MCHC (RBC) [Mass/Vol] 33.0 g/dL Normal 32-36 [facility] Comment on above: Performed By: #### L 500.4050, L100.0100, L300.3900, L501.9520 ####[facility] [address] [place], [address] MCV (RBC) [Entitic vol] 90.3 fL Normal 81-99 [facility] Comment on above: Performed By: #### L 500.4050, L100.0100, L300.3900, L501.9520 ####[facility] [address] [place], [address] Monocytes/100 WBC (Bld) 12.0 % High 0-10 [facility] Comment on above: Performed By: #### L 500.4050, L100.0100, L300.3900, L501.9520 ####[facility] [address] [place], [address] Neutrophils/100 WBC (Bld) 63.8 % Normal 47-70 [facility] Comment on above: Performed By: #### L 500.4050, L100.0100, L300.3900, L501.9520 ####[facility] [address] [place], [address] Nucleated RBC (Bld) [#/Vol] 0 10*3/uL Normal 0-5 [facility] Comment on above: Performed By: #### L 500.4050, L100.0100, L300.3900, L501.9520 ####[facility] [address] [place], [address] Platelet mean volume (Bld) [Entitic vol] 10.5 fL Normal 6.2-12.0 [facility] Comment on above: Performed By: #### L 500.4050, L100.0100, L300.3900, L501.9520 ####[facility] [address] [place], [address] Platelets (Bld) [#/Vol] 141 10*3/uL Low 150-450 [facility] Comment on above: Performed By: #### L 500.4050, L100.0100, L300.3900, L501.9520 ####[facility] [address] [place], [address] RBC (Bld) [#/Vol] 3.59 10*6/uL Low 4.2-5.4 [facility] Comment on above: Performed By: #### L 500.4050, L100.0100, L300.3900, L501.9520 ####[facility] [address] [place], [address] RDW SD 47.5 fl High 35.1-43.9 [facility] Comment on above: Performed By: #### L 500.4050, L100.0100, L300.3900, L501.9520 ####[facility] [address] [place], [address] WBC (Bld) [#/Vol] 6.1 10*3/uL Normal 4.4-11.0 [facility] Comment on above: Performed By: #### L 500.4050, L100.0100, L300.3900, L501.9520 ####[facility] [address] [place], [address] Chest 1 View (Portable)on Chest 1 View (Portable) Normal [facility] Comprehensive Metabolic Prof ilon 06-07-2025 Albumin [Mass/Vol] 3.5 g/dL Normal 3.4-4.8 [facility] Comment on above: Performed By: #### L 500.4050, L100.0100, L300.3900, L501.9520 ####[facility] [address] [place], [address] Albumin/Globulin [Mass ratio] 1.4 {ratio} Normal 0.9-2.4 [facility] Comment on above: Performed By: #### L 500.4050, L100.0100, L300.3900, L501.9520 ####[facility] [address] [place], [address] ALK PHOS 61 U/L Normal 35-104 [facility] Comment on above: Performed By: #### L 500.4050, L100.0100, L300.3900, L501.9520 ####[facility] [address] [place], [address] ALT [Catalytic activity/Vol] 13 U/L Normal <=34 [facility] Comment on above: Performed By: #### L 500.4050, L100.0100, L300.3900, L501.9520 ####[facility] [address] [place], [address] AST [Catalytic activity/Vol] 21 U/L Normal <=31 [facility] Comment on above: Performed By: #### L 500.4050, L100.0100, L300.3900, L501.9520 ####[facility] [address] [place], [address] Bilirubin [Mass/Vol] 1.22 mg/dL Normal 0.00-1.30 [facility] Comment on above: Performed By: #### L 500.4050, L100.0100, L300.3900, L501.9520 ####[facility] [address] [place], [address] BUN/CRE 21.6 RATIO High 10-20 [facility] Comment on above: Performed By: #### L 500.4050, L100.0100, L300.3900, L501.9520 ####[facility] [address] [place], [address] Calcium [Mass/Vol] 8.8 mg/dL Normal 7.6-11.0 [facility] Comment on above: Performed By: #### L 500.4050, L100.0100, L300.3900, L501.9520 ####[facility] [address] [place], [address] Chloride [Moles/Vol] 102 mmol/L Normal 98-108 [facility] Comment on above: Performed By: #### L 500.4050, L100.0100, L300.3900, L501.9520 ####[facility] [address] [place], [address] CO2 [Moles/Vol] 25.7 mmol/L Normal 21.0-32.0 [facility] Comment on above: Performed By: #### L 500.4050, L100.0100, L300.3900, L501.9520 ####[facility] [address] [place], [address] Creatinine [Mass/Vol] 0.64 mg/dL Low 0.70-1.20 [facility] Comment on above: Performed By: #### L 500.4050, L100.0100, L300.3900, L501.9520 ####[facility] [address] [place], [address] ECRCL 63.05 ml/min Normal 50-250 [facility] Comment on above: Performed By: #### L 500.4050, L100.0100, L300.3900, L501.9520 ####[facility] [address] [place], [address] GAP 11 Normal 5-15 [facility] Comment on above: Performed By: #### L 500.4050, L100.0100, L300.3900, L501.9520 ####[facility] [address] [place], [address] GFR/1.73 sq M.predicted among non-blacks MDRD (S/P/Bld) [Vol rate/Area] 88 mL/min/{1.73_m2} Normal >60 [facility] Comment on above: Result Comment: mL/m in/1.73m2 CKD-EPI Creatinine Equation (2020) Performed By: #### L 500.4050, L100.0100, L300.3900, L501.9520 ####[facility] [address] [place], [address] Globulin (S) [Mass/Vol] 2.5 g/dL Normal 2.2-4.2 [facility] Comment on above: Performed By: #### L 500.4050, L100.0100, L300.3900, L501.9520 ####[facility] [address] [place], [address] Glucose [Mass/Vol] 167 mg/dL High 70-99 [facility] Comment on above: Performed By: #### L 500.4050, L100.0100, L300.3900, L501.9520 ####[facility] [address] [place], [address] Potassium [Moles/Vol] 3.8 mmol/L Normal 3.3-5.1 [facility] Comment on above: Performed By: #### L 500.4050, L100.0100, L300.3900, L501.9520 ####[facility] [address] [place], [address] Sodium [Moles/Vol] 139 mmol/L Normal 133-145 [facility] Comment on above: Performed By: #### L 500.4050, L100.0100, L300.3900, L501.9520 ####[facility] [address] [place], [address] T PROT 6.1 g/dL Normal 5.9-8.4 [facility] Comment on above: Performed By: #### L 500.4050, L100.0100, L300.3900, L501.9520 ####[facility] [address] [place], [address] Urea nitrogen [Mass/Vol] 14 mg/dL Normal 4-19 [facility] Comment on above: Performed By: #### L 500.4050, L100.0100, L300.3900, L501.9520 ####[facility] [address] [place], [address] Echo Completeon 06-07-2025 Echo Complete Normal [facility] Electrocardiogram reportOrde red By: Jose Raul Lowery on 06-07-2025 EKG study [facility] Cardiovascular Services [address] [place] [address] 12 Lead EKG 06/06/251921 MR#: [id number] Acct: [id number] Name: VASILE MILLER Rep #:[id number] : 1940 84 From: Jose Raul loera MD Attending Dr: Dr. Todd Lane DO Status: ADM IN Ordering Dr: Hugh Nunes MD Date: Location: [facility] Sex: F C Admitted: 06/06/25 Test Reason : ALT LOC Blood Pressure : */* mmHG Vent. Rate : 108 BPM Atrial Rate : * BPM P-R Int : * ms QRS Dur : 144 ms QT Int : 384 ms P-R-T Axes : * 49 160 degrees QTcB Int : 514 ms Atrial fibrillation with rapid ventricular response Left bundle branch block Abnormal ECG Confirmed by Jose Raul Lowery ([id number]), offline editor PATRICK DE LA VEGA ([id number]) on 06/07/2025 1:57:59 PM Referred By: NINFA Confirmed By: Jose Raul Lowery 06/07/25 2538 Date _ Jose Raul Lowery MD CC: Dr. Terrell Schafer MD; Dr. Hugh Nunes MD; Dr. Todd Lane DO ~ Signed [facility] Other Eosinophil percentageOrdered By: Jana White on 06-07-2025 Eosinophils/100 WBC (Bld) 2.3 % 0-5 [facility] Erythrocyte distribution wid th ratioOrdered By: White on 06-07-2025 Erythrocyte distribution width (RBC) [Ratio] 14.3 % 11.6-14.6 [facility] Erythrocyte distribution wid th standard deviationOrdered By: Jana Alexys on 06-07-2025 Erythrocyte distribution width (RBC) [Ratio] 47.5 fl High 35.1-43.9 [facility] Hematocrit Auto (Bld) [Volum e fraction]Ordered By: 06-07-2025 Hematocrit (Bld) [Volume fraction] 32.4 % Low 37-47 [facility] Hemoglobin measurementOrdere d By: on 06-07-2025 Hemoglobin (Bld) [Mass/Vol] 10.7 g/dL Low 12.0-15.0 [facility] Immature granulocytes/100 WB C Auto (Bld)Ordered By: 06-07-2025 Immature granulocytes/100 WBC (Bld) 0.700 % 0.0-0.9 [facility] Comment on above: IG% - Immature Granu locytes (promyelocytes, myelocytes and metamyelocytes) > 1% indicates that a LEFT SHIFT is Present. L503.7505on 06-07-2025 Natriuretic peptide B (Bld) [Mass/Vol] 3397 pg/mL High <=1800 [facility] Comment on above: Result Comment: Hear t Failure Unlikely: < 300 pg/mLHeart Failure Likely< 50 Years: > 450 pg/mL50-75 Years: > 900 pg/mL>75 Years: > 1800 pg/mL Performed By: #### L 503.7317 ####[facility] [address] [place], [place], [id number] Laboratory - Chemistry and C hemistry - challengeOrdered By: Jana Alexys on 06-07-2025 AST [Catalytic activity/Vol] 21 U/L <32 [facility] Legionella Antigen Urineon 0 06-07-2025 LEGU Normal [facility] Comment on above: Performed By: #### M 300.4500, M300.4600 ####[facility] [address] [place], [place], [id number] M8200.1000on 06-07-2025 M8200.1000 Normal Reference Ran ge = Negative MRSA DNA Nose Ql NYASIA+probe GeneXpert Instrument, PCR method MRSA PCR MRSA NEGATIVE Normal [facility] Comment on above: Performed By: #### M 8200.1000 ####[facility] [address] [place], [address] MCV (mean corpuscular volume ) determinationOrdered By: Jana Alexys on 06-07-2025 MCV (RBC) [Entitic vol] 90.3 fL 81-99 [facility] Mean corpuscular hemoglobin (MCH) determinationOrdered By: [facility] White on 06-07-2025 MCH (RBC) [Entitic mass] 29.8 pg 27.0-32.0 [facility] Mean corpuscular hemoglobin concentration (MCHC) determinationOrdered By: Jana Alexys on 06-07-2025 MCHC (RBC) [Mass/Vol] 33.0 g/dL 32-36 [facility] Mean platelet volume determi nationOrdered By: Jana Alexys on 06-07-2025 Platelet mean volume (Bld) [Entitic vol] 10.5 fL 6.2-12.0 [facility] Monocyte percentageOrdered B y: Jana Alexys on 06-07-2025 Monocytes/100 WBC (Bld) 12.0 % High 0-10 [facility] Natriuretic peptide.B prohor giovanna N-Terminal [Mass/volume] in Serum or PlasmaOrdered By: Todd Lane on 06-07-2025 Natriuretic peptide.B prohormone N-Terminal [Mass/Vol] 3397 pg/mL High <1800 [facility] Comment on above: Heart Failure Unlike ly: < 300 pg/mLHeart Failure Likely< 50 Years: > 450 pg/mL50-75 Years: > 900 pg/mL>75 Years: > 1800 pg/mL Neutrophil percentageOrdered By: Jana Alexys on 06-07-2025 Neutrophils/100 WBC (Bld) 63.8 % 47-70 [facility] Nucleated red blood cell per centageOrdered By: Alexys on 06-07-2025 Nucleated RBC/100 WBC (Bld) [Ratio] 0 % 0-5 [facility] Platelet countOrdered By: Doretha Reardon on 06-07-2025 Platelets (Bld) [#/Vol] 141 10*3/uL Low 150-450 [facility] Prothrombin Time w/INRon INR Coag (PPP) [Relative time] 1.4 {INR} Normal [facility] Comment on above: Performed By: #### L 500.4050, L100.0100, L300.3900, L501.9520 ####[facility] [address] [place], [address] PT Coag (PPP) [Time] 17.3 s High 11.7-14.9 [facility] Comment on above: Performed By: #### L 500.4050, L100.0100, L300.3900, L501.9520 ####[facility] [address] [place], [address] RBC Auto (Bld) [#/Vol]Ordere d By: Jana Reardon on 06-07-2025 RBC (Bld) [#/Vol] 3.59 10*6/uL Low 4.2-5.4 [facility] RESPIRATORY PANEL MOLECULARo n 06-07-2025 RP PANEL Normal [facility] Comment on above: Performed By: #### M 100.638 ####[facility] [address] [place], [address] STROKE Brain/Head without Co nton 06-07-2025 STROKE Brain/Head without Cont Normal [facility] STROKE CTA Head AND Neck W/C onon 06-07-2025 STROKE CTA Head AND Neck W/Con Normal [facility] Serum globulin measurementOr dered By: Jana Reardon on 06-07-2025 Globulin (S) [Mass/Vol] 2.5 g/dL 2.2-4.2 [facility] Serum or plasma alanine huang otransferase (ALT) measurementOrdered By: Jana Reardon on 06-07-2025 ALT [Catalytic activity/Vol] 13 U/L <35 [facility] Serum or plasma albumin shaniqua urement (mass/volume)Ordered By: Jana Reardon on 06-07-2025 Albumin [Mass/Vol] 3.5 g/dL 3.4-4.8 [facility] Serum or plasma albumin/glob ulin mass ratioOrdered By: on 06-07-2025 Albumin/Globulin [Mass ratio] 1.4 {ratio} 0.9-2.4 [facility] Serum or plasma alkaline dylan sphatase measurementOrdered By: on 06-07-2025 ALP [Catalytic activity/Vol] 61 U/L 35-104 [facility] Strep pneumoniae Antig(UR,CS F)on 06-07-2025 STPAG Normal [facility] Comment on above: Performed By: #### M 300.4500, M300.4600 ####[facility] [address] [place], [place], [id number] TSH DL <= 0.005 mIU/L QnOrde red By: on 06-07-2025 TSH Qn 0.941 uIU/mL 0.300-4.20 0 [facility] Thyroid Stim Hormone (TSH)on 06-07-2025 TSH 0.941 uIU/mL Normal 0.300-4.20 0 [facility] Comment on above: Performed By: #### L 500.4050, L100.0100, L300.3900, L501.9520 ####[facility] [address] [place], [place], [id number] Total proteinOrdered By: Aut umn White on 06-07-2025 Protein [Mass/Vol] 6.1 g/dL 5.9-8.4 [facility] Urine Cultureon 06-07-2025 URC Culture exhibits no growth. Normal [facility] Comment on above: Performed By: #### L 400.0001, M100.2200 ####[facility] [address] [place], [place], [id number] Urine Legionella pneumophila antigen detectionOrdered By: on 06-07-2025 L. pneumophila Ag Ql (U) [facility] White blood cell (WBC) count Ordered By: on 06-07-2025 WBC (Bld) [#/Vol] 6.1 10*3/uL 4.4-11.0 [facility] 12 Lead EKGon 06-06-2025 12 Lead EKG Normal [facility] Absolute lymphocyte countOrd ered By: Hugh Nunes on 06-06-2025 Lymphocytes Auto (Unsp spec) [#/Vol] 1.03 10*3/uL 0.83-4.51 [facility] Absolute neutrophil countOrd ered By: Hguh Nunes on 06-06-2025 Neutrophils (Bld) [#/Vol] 7.2 10*3/uL 2.0-7.7 [facility] Activated partial thrombopla stin time (aPTT) in platelet poor plasma by coagulation aOrdered By: Hugh Nunes on 06-06-2025 aPTT Coag (PPP) [Time] 28.5 s 24.1-36.2 [facility] Ammoniaon 06-06-2025 Ammonia (P) [Moles/Vol] 14.8 umol/L Normal [facility] Comment on above: Performed By: #### L 503.5510, L501.5200 ####[facility] [address] [place], [place], [address] Anion gap in Serum or Plasma Ordered By: Hugh Nunes on 06-06-2025 Anion gap [Moles/Vol] 15 mmol/L 5-15 [facility] Automated lymphocyte count a s percentage of total leukocytesOrdered By: Hugh Nunes on 06-06-2025 Lymphocytes/100 WBC Auto (Unsp spec) 11.1 % Low 19-41 [facility] BUN/creatinine ratioOrdered By: Hugh Nunes on 06-06-2025 Urea nitrogen/Creatinine [Mass ratio] 22.1 mg/mg High 10-20 [facility] Basophil percentageOrdered B y: Hugh Nunes on 06-06-2025 Basophils/100 WBC (Bld) 0.3 % 0-1 [facility] Bilirubin Test strip Ql (U)O rdered By: Hugh Nunes on 06-06-2025 Bilirubin Ql (U) Negative Negative [facility] Bilirubin, totalOrdered By: Hugh Nunes on 06-06-2025 Bilirubin [Mass/Vol] 1.48 mg/dL High 0.00-1.30 [facility] Blood cultureOrdered By: Lew Nunes on 06-06-2025 Bacteria identified Cx Nom (Bld) No growth in 5 days. [facility] Brain/Head without Contrasto n 06-06-2025 Brain/Head without Contrast Normal [facility] CBC W/Diff, Automatedon 05-17 Absolute Lymph 1.03 X10 3/uL Normal 0.83-4.51 [facility] Comment on above: Performed By: #### L 300.3900, M200.1000, L300.4310, L503.6005, L100.0100, L500.4050 ####[facility] [address] [place], [address] Absolute Neut 7.2 X10 3/uL Normal 2.0-7.7 [facility] Comment on above: Performed By: #### L 300.3900, M200.1000, L300.4310, L503.6005, L100.0100, L500.4050 ####[facility] [address] [place], [address] Basophils/100 WBC (Bld) 0.3 % Normal 0-1 [facility] Comment on above: Performed By: #### L 300.3900, M200.1000, L300.4310, L503.6005, L100.0100, L500.4050 ####[facility] [address] [place], [address] Eosinophils/100 WBC (Bld) 1.0 % Normal 0-5 [facility] Comment on above: Performed By: #### L 300.3900, M200.1000, L300.4310, L503.6005, L100.0100, L500.4050 ####[facility] [address] [place], [address] Erythrocyte distribution width (RBC) [Ratio] 14.6 % Normal 11.6-14.6 [facility] Comment on above: Performed By: #### L 300.3900, M200.1000, L300.4310, L503.6005, L100.0100, L500.4050 ####[facility] [address] [place], [address] Hematocrit (Bld) [Volume fraction] 38.6 % Normal 37-47 [facility] Comment on above: Performed By: #### L 300.3900, M200.1000, L300.4310, L503.6005, L100.0100, L500.4050 ####[facility] [address] [place], [address] Hemoglobin (Bld) [Mass/Vol] 12.8 g/dL Normal 12.0-15.0 [facility] Comment on above: Performed By: #### L 300.3900, M200.1000, L300.4310, L503.6005, L100.0100, L500.4050 ####[facility] [address] [place], [address] IG% 0.400 Normal 0.0-0.9 [facility] Comment on above: Result Comment: IG% - Immature Granulocytes (promyelocytes, myelocytes andmetamyelocytes) > 1% indicates that a LEFT SHIFT is Present. Performed By: #### L 300.3900, M200.1000, L300.4310, L503.6005, L100.0100, L500.4050 ####[facility] [address] [place], [address] Lymphocytes/100 WBC (Bld) 11.1 % Low 19-41 [facility] Comment on above: Performed By: #### L 300.3900, M200.1000, L300.4310, L503.6005, L100.0100, L500.4050 ####[facility] [address] [place], [address] MCH (RBC) [Entitic mass] 29.8 pg Normal 27.0-32.0 [facility] Comment on above: Performed By: #### L 300.3900, M200.1000, L300.4310, L503.6005, L100.0100, L500.4050 ####[facility] [address] [place], [address] MCHC (RBC) [Mass/Vol] 33.2 g/dL Normal 32-36 [facility] Comment on above: Performed By: #### L 300.3900, M200.1000, L300.4310, L503.6005, L100.0100, L500.4050 ####[facility] [address] [place], [address] MCV (RBC) [Entitic vol] 90.0 fL Normal 81-99 [facility] Comment on above: Performed By: #### L 300.3900, M200.1000, L300.4310, L503.6005, L100.0100, L500.4050 ####[facility] [address] [place], [address] Monocytes/100 WBC (Bld) 9.5 % Normal 0-10 [facility] Comment on above: Performed By: #### L 300.3900, M200.1000, L300.4310, L503.6005, L100.0100, L500.4050 ####[facility] [address] [place], [address] Neutrophils/100 WBC (Bld) 77.7 % High 47-70 [facility] Comment on above: Performed By: #### L 300.3900, M200.1000, L300.4310, L503.6005, L100.0100, L500.4050 ####[facility] [address] [place], [address] Nucleated RBC (Bld) [#/Vol] 0 10*3/uL Normal 0-5 [facility] Comment on above: Performed By: #### L 300.3900, M200.1000, L300.4310, L503.6005, L100.0100, L500.4050 ####[facility] [address] [place], [address] Platelet mean volume (Bld) [Entitic vol] 10.6 fL Normal 6.2-12.0 [facility] Comment on above: Performed By: #### L 300.3900, M200.1000, L300.4310, L503.6005, L100.0100, L500.4050 ####[facility] [address] [place], [address] Platelets (Bld) [#/Vol] 176 10*3/uL Normal 150-450 [facility] Comment on above: Performed By: #### L 300.3900, M200.1000, L300.4310, L503.6005, L100.0100, L500.4050 ####[facility] [address] [place], [address] RBC (Bld) [#/Vol] 4.29 10*6/uL Normal 4.2-5.4 [facility] Comment on above: Performed By: #### L 300.3900, M200.1000, L300.4310, L503.6005, L100.0100, L500.4050 ####[facility] [address] [place], [address] RDW SD 47.7 fl High 35.1-43.9 [facility] Comment on above: Performed By: #### L 300.3900, M200.1000, L300.4310, L503.6005, L100.0100, L500.4050 ####[facility] [address] [place], [address] WBC (Bld) [#/Vol] 9.2 10*3/uL Normal 4.4-11.0 [facility] Comment on above: Performed By: #### L 300.3900, M200.1000, L300.4310, L503.6005, L100.0100, L500.4050 ####[facility] [address] [place], [address] CO2 (BldV) [Moles/Vol]Ordere d By: Jana Reardon on 06-06-2025 CO2 [Moles/Vol] 31 mmol/L 23-33 [facility] Carbon dioxide, total [Moles /volume] in Central venous bloodOrdered By: Hugh Nunes on 06-06-2025 CO2 [Moles/Vol] 24.3 mmol/L 21.0-32.0 [facility] Chest 1 View (Portable)on Chest 1 View (Portable) Normal [facility] Chloride assayOrdered By: Everette Nuens on 06-06-2025 Chloride [Moles/Vol] 98 mmol/L 98-108 [facility] Comprehensive Metabolic Prof ilon 06-06-2025 Albumin [Mass/Vol] 4.4 g/dL Normal 3.4-4.8 [facility] Comment on above: Performed By: #### L 300.3900, M200.1000, L300.4310, L503.6005, L100.0100, L500.4050 ####[facility] [address] [place], [address] Albumin/Globulin [Mass ratio] 1.5 {ratio} Normal 0.9-2.4 [facility] Comment on above: Performed By: #### L 300.3900, M200.1000, L300.4310, L503.6005, L100.0100, L500.4050 ####[facility] [address] [place], [address] ALK PHOS 81 U/L Normal 35-104 [facility] Comment on above: Performed By: #### L 300.3900, M200.1000, L300.4310, L503.6005, L100.0100, L500.4050 ####[facility] [address] [place], [address] ALT [Catalytic activity/Vol] 16 U/L Normal <=34 [facility] Comment on above: Performed By: #### L 300.3900, M200.1000, L300.4310, L503.6005, L100.0100, L500.4050 ####[facility] [address] [place], [address] AST [Catalytic activity/Vol] 26 U/L Normal <=31 [facility] Comment on above: Performed By: #### L 300.3900, M200.1000, L300.4310, L503.6005, L100.0100, L500.4050 ####[facility] [address] [place], [address] Bilirubin [Mass/Vol] 1.48 mg/dL High 0.00-1.30 [facility] Comment on above: Performed By: #### L 300.3900, M200.1000, L300.4310, L503.6005, L100.0100, L500.4050 ####[facility] [address] [place], [address] BUN/CRE 22.1 RATIO High 10-20 [facility] Comment on above: Performed By: #### L 300.3900, M200.1000, L300.4310, L503.6005, L100.0100, L500.4050 ####[facility] [address] [place], [address] Calcium [Mass/Vol] 9.9 mg/dL Normal 7.6-11.0 [facility] Comment on above: Performed By: #### L 300.3900, M200.1000, L300.4310, L503.6005, L100.0100, L500.4050 ####[facility] [address] [place], [address] Chloride [Moles/Vol] 98 mmol/L Normal 98-108 [facility] Comment on above: Performed By: #### L 300.3900, M200.1000, L300.4310, L503.6005, L100.0100, L500.4050 ####[facility] [address] [place], [address] CO2 [Moles/Vol] 24.3 mmol/L Normal 21.0-32.0 [facility] Comment on above: Performed By: #### L 300.3900, M200.1000, L300.4310, L503.6005, L100.0100, L500.4050 ####[facility] [address] [place], [address] Creatinine [Mass/Vol] 0.80 mg/dL Normal 0.70-1.20 [facility] Comment on above: Performed By: #### L 300.3900, M200.1000, L300.4310, L503.6005, L100.0100, L500.4050 ####[facility] [address] [place], [address] ECRCL 63.09 ml/min Normal 50-250 [facility] Comment on above: Performed By: #### L 300.3900, M200.1000, L300.4310, L503.6005, L100.0100, L500.4050 ####[facility] [address] [place], [address] GAP 15 Normal 5-15 [facility] Comment on above: Performed By: #### L 300.3900, M200.1000, L300.4310, L503.6005, L100.0100, L500.4050 ####[facility] [address] [place], [address] GFR/1.73 sq M.predicted among non-blacks MDRD (S/P/Bld) [Vol rate/Area] 73 mL/min/{1.73_m2} Normal >60 [facility] Comment on above: Result Comment: mL/m in/1.73m2 CKD-EPI Creatinine Equation (2020) Performed By: #### L 300.3900, M200.1000, L300.4310, L503.6005, L100.0100, L500.4050 ####[facility] [address] [place], [address] Globulin (S) [Mass/Vol] 2.8 g/dL Normal 2.2-4.2 [facility] Comment on above: Performed By: #### L 300.3900, M200.1000, L300.4310, L503.6005, L100.0100, L500.4050 ####[facility] [address] [place], [address] Glucose [Mass/Vol] 239 mg/dL High 70-99 [facility] Comment on above: Performed By: #### L 300.3900, M200.1000, L300.4310, L503.6005, L100.0100, L500.4050 ####[facility] [address] [place], [address] Potassium [Moles/Vol] 3.9 mmol/L Normal 3.3-5.1 [facility] Comment on above: Performed By: #### L 300.3900, M200.1000, L300.4310, L503.6005, L100.0100, L500.4050 ####[facility] [address] [place], [address] Sodium [Moles/Vol] 138 mmol/L Normal 133-145 [facility] Comment on above: Performed By: #### L 300.3900, M200.1000, L300.4310, L503.6005, L100.0100, L500.4050 ####[facility] [address] [place], [place], [id number] T PROT 7.2 g/dL Normal 5.9-8.4 [facility] Comment on above: Performed By: #### L 300.3900, M200.1000, L300.4310, L503.6005, L100.0100, L500.4050 ####[facility] [address] [place], [place], [id number] Urea nitrogen [Mass/Vol] 18 mg/dL Normal 4-19 [facility] Comment on above: Performed By: #### L 300.3900, M200.1000, L300.4310, L503.6005, L100.0100, L500.4050 ####[facility] [address] [place], [place], [id number] Emergency Department Summary on 06-06-2025 Emergency Department Summary Normal [facility] Eosinophil percentageOrdered By: Hugh Nunes on 06-06-2025 Eosinophils/100 WBC (Bld) 1.0 % 0-5 [facility] Erythrocyte distribution wid th ratioOrdered By: Hugh Nunes on 06-06-2025 Erythrocyte distribution width (RBC) [Ratio] 14.6 % 11.6-14.6 [facility] Erythrocyte distribution wid th standard deviationOrdered By: Hugh Nunes on 06-06-2025 Erythrocyte distribution width (RBC) [Ratio] 47.7 fl High 35.1-43.9 [facility] Glomerular filtration rate ( GFR) estimation/1.73 sq m using serum, plasma, or whole bOrdered By: Hugh Nunes on 06-06-2025 GFR/1.73 sq M.predicted among non-blacks MDRD (S/P/Bld) [Vol rate/Area] 73 mL/min/{1.73_m2} >60 [facility] Comment on above: mL/min/1.73m2 CKD-EP I Creatinine Equation (2020) H AND P Exam - [place] 06-06-2025 H&P Exam - Hospitalist Normal [facility] Hematocrit Auto (Bld) [Volum e fraction]Ordered By: Hugh Nunes on 06-06-2025 Hematocrit (Bld) [Volume fraction] 38.6 % 37-47 [facility] Hemoglobin measurementOrdere d By: Hugh Nunes on 06-06-2025 Hemoglobin (Bld) [Mass/Vol] 12.8 g/dL 12.0-15.0 [facility] Hyaline casts LM.LPF (Urine sed) [#/Area]Ordered By: Hugh Nunes on 06-06-2025 Hyaline casts (Urine sed) [#/Area] 0 /[LPF] 0-5 [facility] Immature granulocytes/100 WB C Auto (Bld)Ordered By: Hugh Nunes on 06-06-2025 Immature granulocytes/100 WBC (Bld) 0.400 % 0.0-0.9 [facility] Comment on above: IG% - Immature Granu locytes (promyelocytes, myelocytes and metamyelocytes) > 1% indicates that a LEFT SHIFT is Present. International normalized rat io (INR) calculationOrdered By: Hugh Nunes on 06-06-2025 INR Coag (Bld) [Relative time] 1.5 {INR} [facility] Ketones Test strip Ql (U)Ord ered By: Hugh Nunes on 06-06-2025 Ketones Ql (U) 15 mg/dl High Negative [facility] L509.7001on 06-06-2025 Procalcitonin 0.03 ng/mL Normal <=0.10 [facility] Comment on above: Result Comment: Inte rpretation:<0.10-0.25 ng/mL: Antibiotic therapy discouraged. Bacterialinfection unlikely.0.25-0.50 ng/mL: Antibiotic therapy encouraged. Bacterialinfection possible.>0.50 ng/mL: Antibiotic therapy strongly encouraged.Suggestive of presence of bacterial infection.PCT should always be interpreted in the clinical context ofthe patient. Therefore, clinicians should use the PCTresults in conjunction with other laboratory findings andclinical signs of the patient. Performed By: #### L 509.700 ####[facility] [address] [place], [address] Laboratory - Chemistry and C hemistry - challengeOrdered By: Hugh Nunes on 06-06-2025 AST [Catalytic activity/Vol] 26 U/L <32 [facility] Lactic Acidon 06-06-2025 Lactate [Moles/Vol] 1.8 mmol/L Normal 0.0-2.0 [facility] Comment on above: Order Comment: Y Performed By: #### L 300.3900, M200.1000, L300.4310, L503.6005, L100.0100, L500.4050 ####[facility] [address] [place], [place], [id number] Lactic acid measurementOrder ed By: Hugh Nunes on 06-06-2025 Lactate [Moles/Vol] 1.8 mmol/L 0.0-2.0 [facility] MCV (mean corpuscular volume ) determinationOrdered By: Hugh Nunes on 06-06-2025 MCV (RBC) [Entitic vol] 90.0 fL 81-99 [facility] Magnesiumon 06-06-2025 Magnesium [Mass/Vol] 1.6 mg/dL Normal 1.5-2.2 [facility] Comment on above: Order Comment: Comme nts: may add to ED labs Performed By: #### L 503.5510, L501.5200 ####[facility] [address] [facility] [place], [place], [id number] Magnesium measurement (mass/ volume)Ordered By: Jana Reardon on 06-06-2025 Magnesium (Unsp spec) [Mass/Vol] 1.6 mg/dL 1.5-2.2 [facility] Mean corpuscular hemoglobin (MCH) determinationOrdered By: Hugh Nunes on 06-06-2025 MCH (RBC) [Entitic mass] 29.8 pg 27.0-32.0 [facility] Mean corpuscular hemoglobin concentration (MCHC) determinationOrdered By: Hugh Nunes on 06-06-2025 MCHC (RBC) [Mass/Vol] 33.2 g/dL 32-36 [facility] Mean platelet volume determi nationOrdered By: Hugh Nunes on 06-06-2025 Platelet mean volume (Bld) [Entitic vol] 10.6 fL 6.2-12.0 [facility] Microscopic analysis of urin e for red blood cells (RBC)Ordered By: Hugh Nunes on 06-06-2025 Microscopic analysis of urine for red blood cells (RBC) 0-5 SEEN /hpf 0-5 [facility] Monocyte percentageOrdered B y: Hugh Nunes on 06-06-2025 Monocytes/100 WBC (Bld) 9.5 % 0-10 [facility] Mucus LM Ql (Urine sed)Order ed By: Hugh Nunes on 06-06-2025 Mucus Ql (Urine sed) 0 SEEN /hpf [facility] Nasal methicillin resistant Staphylococcus aureus (MRSA) DNA detection by PCROrdered By: Jana Reardon on 06-06-2025 MRSA DNA NYASIA+probe Ql (Nose) [facility] Neutrophil percentageOrdered By: Hugh Nunes on 06-06-2025 Neutrophils/100 WBC (Bld) 77.7 % High 47-70 [facility] Nitrite Test strip Ql (U)Ord ered By: Hugh Nunes on 06-06-2025 Nitrite Ql (U) Negative Negative [facility] No Panel InformationOrdered By: Jana Reardon on 06-06-2025 Blood Gas Sample Site Not entered [facility] Blood Gas Specimen Type CARSON [facility] Oxygen Delivery Device Not entered [facility] Nucleated red blood cell per centageOrdered By: Hugh Nunes on 06-06-2025 Nucleated RBC/100 WBC (Bld) [Ratio] 0 % 0-5 [facility] Partial Thromboplast Timeon 06-06-2025 aPTT Coag (Bld) [Time] 28.5 s Normal 24.1-36.2 [facility] Comment on above: Performed By: #### L 300.3900, M200.1000, L300.4310, L503.6005, L100.0100, L500.4050 ####[facility] [address] [place], [place], [id number] Platelet countOrdered By: Everette Nunes on 06-06-2025 Platelets (Bld) [#/Vol] 176 10*3/uL 150-450 [facility] Potassium measurement (mass/ volume)Ordered By: Hugh Nunes on 06-06-2025 Potassium (Unsp spec) [Mass/Vol] 3.9 mmol/L 3.3-5.1 [facility] Procalcitonin [Mass/volume] in Serum or Plasma by ImmunoassayOrdered By: Jana Reardon on 06-06-2025 Procalcitonin IA [Mass/Vol] 0.03 ng/mL <0.11 [facility] Comment on above: Interpretation:<0.10 -0.25 ng/mL: Antibiotic therapy discouraged. Bacterial infection unlikely.0.25-0.50 ng/mL: Antibiotic therapy encouraged. Bacterial infection possible.>0.50 ng/mL: Antibiotic therapy strongly encouraged. Suggestive of presence of bacterial infection.PCT should always be interpreted in the clinical context of the patient. Therefore, clinicians should use the PCT results in conjunction with other laboratory findings and clinical signs of the patient. Protein Test strip Ql (U)Ord ered By: Hugh Nunes on 06-06-2025 Protein Ql (U) 100 mg/dl High Negative [facility] Prothrombin Time w/INRon INR Coag (PPP) [Relative time] 1.5 {INR} Normal [facility] Comment on above: Performed By: #### L 300.3900, M200.1000, L300.4310, L503.6005, L100.0100, L500.4050 ####[facility] [address] [place], [address] PT Coag (PPP) [Time] 18.0 s High 11.7-14.9 [facility] Comment on above: Performed By: #### L 300.3900, M200.1000, L300.4310, L503.6005, L100.0100, L500.4050 ####[facility] [address] [place], [address] Prothrombin timeOrdered By: Hugh Nunes on 06-06-2025 PT Coag (PPP) [Time] 18.0 s High 11.7-14.9 [facility] RBC Auto (Bld) [#/Vol]Ordere d By: Hugh Nunes on 06-06-2025 RBC (Bld) [#/Vol] 4.29 10*6/uL 4.2-5.4 [facility] Respiratory pathogens detect ion panel by molecular detection methodOrdered By: Jana Reardon on 06-06-2025 Respiratory pathogens DNA and RNA panel NYASIA+probe (Resp) [facility] Serum creatinine measurement (mass/volume)Ordered By: Hugh Nunes on 06-06-2025 Creatinine [Mass/Vol] 0.80 mg/dL 0.70-1.20 [facility] Serum globulin measurementOr dered By: Hugh Nunes on 06-06-2025 Globulin (S) [Mass/Vol] 2.8 g/dL 2.2-4.2 [facility] Serum glucose measurement (m ass/volume)Ordered By: Hugh Nunes on 06-06-2025 Glucose [Mass/Vol] 239 mg/dL High 70-99 [facility] Serum or plasma alanine huang otransferase (ALT) measurementOrdered By: Hugh Nunes on 06-06-2025 ALT [Catalytic activity/Vol] 16 U/L <35 [facility] Serum or plasma albumin shaniqua urement (mass/volume)Ordered By: Hugh Nunes on 06-06-2025 Albumin [Mass/Vol] 4.4 g/dL 3.4-4.8 [facility] Serum or plasma albumin/glob ulin mass ratioOrdered By: Hugh Nunes on 06-06-2025 Albumin/Globulin [Mass ratio] 1.5 {ratio} 0.9-2.4 [facility] Serum or plasma alkaline dylan sphatase measurementOrdered By: Hugh Nunes on 06-06-2025 ALP [Catalytic activity/Vol] 81 U/L 35-104 [facility] Serum or plasma calcium shaniqua urement (mass/volume)Ordered By: Hugh Nunes on 06-06-2025 Calcium [Mass/Vol] 9.9 mg/dL 7.6-11.0 [facility] Serum or plasma urea nitroge n measurement (mass/volume)Ordered By: Hugh Nunes on 06-06-2025 Urea nitrogen [Mass/Vol] 18 mg/dL 4-19 [facility] Sodium levelOrdered By: Hugh Nunes on 06-06-2025 Sodium [Moles/Vol] 138 mmol/L 133-145 [facility] Squamous epithelial cells de tection in urine sediment by light microscopyOrdered By: Hugh Nunes on 06-06-2025 Epithelial cells.squamous LM Ql (Urine sed) 0-5 SEEN /hpf 5-10 [facility] Total proteinOrdered By: Lew Nunes on 06-06-2025 Protein [Mass/Vol] 7.2 g/dL 5.9-8.4 [facility] Urinalysis, Completeon 06-06 CAST,HYALINE 0-5 SEEN Normal 0-5 [facility] Comment on above: Order Comment: RAUL CTOR TO SPECIFY Performed By: #### L 400.0001, M1.0 ####[facility] [address] [place], [address] EPI,SQUAMOUS 0-5 SEEN Normal 5-10 [facility] Comment on above: Order Comment: RAUL CTOR TO SPECIFY Performed By: #### L 400.0001, .0 ####[facility] [address] [place], [address] RBC 0-5 SEEN Normal 0-5 [facility] Comment on above: Order Comment: [facility] CTOR TO SPECIFY Performed By: #### L 400.0001, M1.0 ####[facility] [address] [place], [address] WBC 0-5 SEEN Normal 0-5 [facility] Comment on above: Order Comment: [facility] CTOR TO SPECIFY Performed By: #### L 400.0001, M1.0 ####[facility] [address] [place], [address] BACTERIA 0 SEEN Normal None Seen [facility] Comment on above: Order Comment: RAUL CTOR TO SPECIFY Performed By: #### L 400.0001, M1.0 ####[facility] [address] [place], [address] Mucus Ql (Urine sed) 0 SEEN Normal [facility] Comment on above: Order Comment: RAUL CTOR TO SPECIFY Performed By: #### L 400.0001, M1.0 ####[facility] [address] [place], [address] Urine clarityOrdered By: Lew Nunes on 06-06-2025 Clarity (U) Clear Clear [facility] Urine color determinationOrd ered By: Hugh Nunes on 06-06-2025 Color (U) Straw Yellow [facility] Urine cultureOrdered By: Lew Nunes on 06-06-2025 Bacteria identified Cx Nom (U) Culture exhibits no growth. [facility] Urine glucose detectionOrder ed By: Hugh Nunes on 06-06-2025 Glucose Ql (U) 50 mg/dl High Normal [facility] Urine leukocyte esterase det ection by dipstickOrdered By: Hugh Nunes on 06-06-2025 Leukocyte esterase Test strip Ql (U) Negative Negative [facility] Urine pHOrdered By: Hugh samuel on 06-06-2025 pH (U) 6.0 [pH] 5.0 - 8.0 [facility] Urine sediment bacteria coun t by microscopy (number/high power field)Ordered By: Hugh Nunes on 06-06-2025 Bacteria LM.HPF (Urine sed) [#/Area] 0 /[HPF] None Seen [facility] Urine specific gravity measu rementOrdered By: Hugh Nunes on 06-06-2025 Specific gravity (U) [Rel density] 1.015 1.002-1.03 0 [facility] Urine urobilinogen measureme ntOrdered By: Hugh Nunes on 06-06-2025 Urobilinogen Ql (U) Normal mg/dl Normal [facility] Venous Blood Gason 5 Blood Gas Type CARSON Normal [facility] Comment on above: Performed By: #### L 9000.0810 ####[facility] [address] [place], [address] CO2 [Moles/Vol] 31 mmol/L Normal 23-33 [facility] Comment on above: Performed By: #### L 9000.0810 ####[facility] [address] [place], [address] HCO3 (Bld) [Moles/Vol] 29 mmol/L High 22-26 [facility] Comment on above: Performed By: #### L 9000.0810 ####[facility] [address] [place], [address] O2 Delivery Dev Not entered Normal [facility] Comment on above: Performed By: #### L 9000.0810 ####[facility] [address] [place], [address] SITE Not entered Normal [facility] Comment on above: Performed By: #### L 9000.0810 ####[facility] [address] [place], [address] VBG BE 4 mmol/L High -1.0-3.5 [facility] Comment on above: Performed By: #### L 9000.0810 ####[facility] [address] [place], [address] VBG pCO2 48.7 mmHg Normal 41-51 [facility] Comment on above: Performed By: #### L 9000.0810 ####[facility] [address] [place], [address] VBG pH 7.38 Normal 7.32-7.42 [facility] Comment on above: Performed By: #### L 9000.0810 ####[facility] [address] [place], [address] VBG PO2 40 mmHg Normal 25-40 [facility] Comment on above: Performed By: #### L 9000.0810 ####[facility] [address] [place], [address] VBG SO2 73 High 50-70 [facility] Comment on above: Performed By: #### L 9000.0810 ####[facility] [address] [place], [address] Venous blood ammonia measure mentOrdered By: Jana Reardon on 06-06-2025 Ammonia (P) [Moles/Vol] 14.8 umol/L 11-51 [facility] Venous blood base excess ebony surementOrdered By: Jana Reardon on 06-06-2025 Base excess Calc (BldV) [Moles/Vol] 4 mmol/L High -1.0-3.5 [facility] Venous blood bicarbonate ebony surementOrdered By: Jana Reardon on 06-06-2025 HCO3 (Bld) [Moles/Vol] 29 mmol/L High 22-26 [facility] Venous blood oxygen saturati on measurementOrdered By: Jana Reardon on 06-06-2025 Oxygen saturation in Blood 73 % High 50-70 [facility] Venous blood pH measurementO rdered By: Jana Reardon on 06-06-2025 pH (BldV) 7.38 [pH] 7.32-7.42 [facility] Venous blood partial pressur e of carbon dioxide measurementOrdered By: Jana Reardon on 06-06-2025 CO2 (BldV) [Partial pressure] 48.7 mm[Hg] 41-51 [facility] Venous blood partial pressur e of oxygen measurementOrdered By: Jana Reardon on 06-06-2025 Oxygen (BldV) [Partial pressure] 40 mm[Hg] 25-40 [facility] White blood cell (WBC) count Ordered By: Hugh Nunes on 06-06-2025 WBC (Bld) [#/Vol] 9.2 10*3/uL 4.4-11.0 [facility] White blood cell countOrdere d By: Hugh Nunes on 06-06-2025 White blood cell count 0-5 SEEN /hpf 0-5 [facility] Absolute lymphocyte countOrd ered By: Terrell Schafer on 05-29-2025 Lymphocytes Auto (Unsp spec) [#/Vol] 1.13 10*3/uL 0.83-4.51 [facility] Absolute neutrophil countOrd ered By: Terrell Schafer on 05-29-2025 Neutrophils (Bld) [#/Vol] 5.2 10*3/uL 2.0-7.7 [facility] Anion gap in Serum or Plasma Ordered By: Terrell Schafer on 05-29-2025 Anion gap [Moles/Vol] 13 mmol/L 5-15 [facility] Automated lymphocyte count a s percentage of total leukocytesOrdered By: Terrell Schafer on 05-29-2025 Lymphocytes/100 WBC Auto (Unsp spec) 15.2 % Low 19-41 [facility] BUN/creatinine ratioOrdered By: Terrell Schafer on 05-29-2025 Urea nitrogen/Creatinine [Mass ratio] 19.2 mg/mg 10-20 [facility] Basophil percentageOrdered B y: Terrell Schafer on 05-29-2025 Basophils/100 WBC (Bld) 0.5 % 0-1 [facility] Bilirubin, totalOrdered By: Terrell Schafer on 05-29-2025 Bilirubin [Mass/Vol] 1.62 mg/dL High 0.00-1.30 [facility] CBC W/Diff, Automatedon 05-16 Absolute Lymph 1.13 X10 3/uL Normal 0.83-4.51 [facility] Comment on above: Performed By: #### L 300.3900, L100.0100, L500.4050, L501.9520 ####[facility] [address] [place], [address] Absolute Neut 5.2 X10 3/uL Normal 2.0-7.7 [facility] Comment on above: Performed By: #### L 300.3900, L100.0100, L500.4050, L501.9520 ####[facility] [address] [place], [address] Basophils/100 WBC (Bld) 0.5 % Normal 0-1 [facility] Comment on above: Performed By: #### L 300.3900, L100.0100, L500.4050, L501.9520 ####[facility] [address] [place], [address] Eosinophils/100 WBC (Bld) 2.6 % Normal 0-5 [facility] Comment on above: Performed By: #### L 300.3900, L100.0100, L500.4050, L501.9520 ####[facility] [address] [place], [address] Erythrocyte distribution width (RBC) [Ratio] 14.3 % Normal 11.6-14.6 [facility] Comment on above: Performed By: #### L 300.3900, L100.0100, L500.4050, L501.9520 ####[facility] [address] [place], [address] Hematocrit (Bld) [Volume fraction] 36.2 % Low 37-47 [facility] Comment on above: Performed By: #### L 300.3900, L100.0100, L500.4050, L501.9520 ####[facility] [address] [place], [address] Hemoglobin (Bld) [Mass/Vol] 11.8 g/dL Low 12.0-15.0 [facility] Comment on above: Performed By: #### L 300.3900, L100.0100, L500.4050, L501.9520 ####[facility] [address] [place], [address] IG% 0.500 Normal 0.0-0.9 [facility] Comment on above: Result Comment: IG% - Immature Granulocytes (promyelocytes, myelocytes andmetamyelocytes) > 1% indicates that a LEFT SHIFT is Present. Performed By: #### L 300.3900, L100.0100, L500.4050, L501.9520 ####[facility] [address] [place], [address] Lymphocytes/100 WBC (Bld) 15.2 % Low 19-41 [facility] Comment on above: Performed By: #### L 300.3900, L100.0100, L500.4050, L501.9520 ####[facility] [address] [place], [address] MCH (RBC) [Entitic mass] 29.6 pg Normal 27.0-32.0 [facility] Comment on above: Performed By: #### L 300.3900, L100.0100, L500.4050, L501.9520 ####[facility] [address] [place], [address] MCHC (RBC) [Mass/Vol] 32.6 g/dL Normal 32-36 [facility] Comment on above: Performed By: #### L 300.3900, L100.0100, L500.4050, L501.9520 ####[facility] [address] [place], [address] MCV (RBC) [Entitic vol] 90.7 fL Normal 81-99 [facility] Comment on above: Performed By: #### L 300.3900, L100.0100, L500.4050, L501.9520 ####[facility] [address] [place], [address] Monocytes/100 WBC (Bld) 11.2 % High 0-10 [facility] Comment on above: Performed By: #### L 300.3900, L100.0100, L500.4050, L501.9520 ####[facility] [address] [place], [address] Neutrophils/100 WBC (Bld) 70.0 % Normal 47-70 [facility] Comment on above: Performed By: #### L 300.3900, L100.0100, L500.4050, L501.9520 ####[facility] [address] [place], [address] Nucleated RBC (Bld) [#/Vol] 0 10*3/uL Normal 0-5 [facility] Comment on above: Performed By: #### L 300.3900, L100.0100, L500.4050, L501.9520 ####[facility] [address] [place], [address] Platelet mean volume (Bld) [Entitic vol] 11.2 fL Normal 6.2-12.0 [facility] Comment on above: Performed By: #### L 300.3900, L100.0100, L500.4050, L501.9520 ####[facility] [address] [place], [address] Platelets (Bld) [#/Vol] 185 10*3/uL Normal 150-450 [facility] Comment on above: Performed By: #### L 300.3900, L100.0100, L500.4050, L501.9520 ####[facility] [address] [place], [address] RBC (Bld) [#/Vol] 3.99 10*6/uL Low 4.2-5.4 [facility] Comment on above: Performed By: #### L 300.3900, L100.0100, L500.4050, L501.9520 ####[facility] [address] [place], [address] RDW SD 47.6 fl High 35.1-43.9 [facility] Comment on above: Performed By: #### L 300.3900, L100.0100, L500.4050, L501.9520 ####[facility] [address] [place], [address] WBC (Bld) [#/Vol] 7.4 10*3/uL Normal 4.4-11.0 [facility] Comment on above: Performed By: #### L 300.3900, L100.0100, L500.4050, L501.9520 ####[facility] [address] [place], [address] Carbon dioxide, total [Moles /volume] in Central venous bloodOrdered By: Terrell Schafer on 05-29-2025 CO2 [Moles/Vol] 22.8 mmol/L 21.0-32.0 [facility] Chloride assayOrdered By: Ruben Schafer on 05-29-2025 Chloride [Moles/Vol] 104 mmol/L 98-108 [facility] Comprehensive Metabolic Prof ilon 05-29-2025 Albumin [Mass/Vol] 4.0 g/dL Normal 3.4-4.8 [facility] Comment on above: Performed By: #### L 300.3900, L100.0100, L500.4050, L501.9520 ####[facility] [address] [place], [address] Albumin/Globulin [Mass ratio] 1.3 {ratio} Normal 0.9-2.4 [facility] Comment on above: Performed By: #### L 300.3900, L100.0100, L500.4050, L501.9520 ####[facility] [address] [place], [address] ALK PHOS 78 U/L Normal 35-104 [facility] Comment on above: Performed By: #### L 300.3900, L100.0100, L500.4050, L501.9520 ####[facility] [address] [place], [address] ALT [Catalytic activity/Vol] 14 U/L Normal <=34 [facility] Comment on above: Performed By: #### L 300.3900, L100.0100, L500.4050, L501.9520 ####[facility] [address] [place], [address] AST [Catalytic activity/Vol] 23 U/L Normal <=31 [facility] Comment on above: Performed By: #### L 300.3900, L100.0100, L500.4050, L501.9520 ####[facility] [address] [place], [address] Bilirubin [Mass/Vol] 1.62 mg/dL High 0.00-1.30 [facility] Comment on above: Performed By: #### L 300.3900, L100.0100, L500.4050, L501.9520 ####[facility] [address] [place], [address] BUN/CRE 19.2 RATIO Normal 10-20 [facility] Comment on above: Performed By: #### L 300.3900, L100.0100, L500.4050, L501.9520 ####[facility] [address] [place], [address] Calcium [Mass/Vol] 9.5 mg/dL Normal 7.6-11.0 [facility] Comment on above: Performed By: #### L 300.3900, L100.0100, L500.4050, L501.9520 ####[facility] [address] [place], [address] Chloride [Moles/Vol] 104 mmol/L Normal 98-108 [facility] Comment on above: Performed By: #### L 300.3900, L100.0100, L500.4050, L501.9520 ####[facility] [address] [place], [address] CO2 [Moles/Vol] 22.8 mmol/L Normal 21.0-32.0 [facility] Comment on above: Performed By: #### L 300.3900, L100.0100, L500.4050, L501.9520 ####[facility] [address] [place], [address] Creatinine [Mass/Vol] 0.76 mg/dL Normal 0.70-1.20 [facility] Comment on above: Performed By: #### L 300.3900, L100.0100, L500.4050, L501.9520 ####[facility] [address] [place], [address] GAP 13 Normal 5-15 [facility] Comment on above: Performed By: #### L 300.3900, L100.0100, L500.4050, L501.9520 ####[facility] [address] [place], [address] GFR/1.73 sq M.predicted among non-blacks MDRD (S/P/Bld) [Vol rate/Area] 78 mL/min/{1.73_m2} Normal >60 [facility] Comment on above: Result Comment: mL/m in/1.73m2 CKD-EPI Creatinine Equation (2020) Performed By: #### L 300.3900, L100.0100, L500.4050, L501.9520 ####[facility] [id number] [place], [address] Globulin (S) [Mass/Vol] 3.0 g/dL Normal 2.2-4.2 [facility] Comment on above: Performed By: #### L 300.3900, L100.0100, L500.4050, [id number] ####[facility] [id number] [place], [address] Glucose [Mass/Vol] 246 mg/dL High 70-99 [facility] Comment on above: Performed By: #### L 300.3900, L100.0100, L500.4050, [id number] ####[facility] [id number] [place], [address] Potassium [Moles/Vol] 4.1 mmol/L Normal 3.3-5.1 [facility] Comment on above: Performed By: #### L 300.3900, L100.0100, L500.4050, [id number] ####[facility] [id number] [place], [address] Sodium [Moles/Vol] 140 mmol/L Normal 133-145 [facility] Comment on above: Performed By: #### L 300.3900, L100.0100, L500.4050, [id number] ####[facility] [id number] [place], [address] T PROT 7.0 g/dL Normal 5.9-8.4 [facility] Comment on above: Performed By: #### L 300.3900, L100.0100, L500.4050, L501.9520 ####[facility] [address] [place], [address] Urea nitrogen [Mass/Vol] 15 mg/dL Normal 4-19 [facility] Comment on above: Performed By: #### L 300.3900, L100.0100, L500.4050, L501.9520 ####[facility] [address] [place], [address] Eosinophil percentageOrdered By: Terrell Schafer on 05-29-2025 Eosinophils/100 WBC (Bld) 2.6 % 0-5 [facility] Erythrocyte distribution wid th ratioOrdered By: Terrell Schafer on 05-29-2025 Erythrocyte distribution width (RBC) [Ratio] 14.3 % 11.6-14.6 [facility] Erythrocyte distribution wid th standard deviationOrdered By: Terrell Schafer on 05-29-2025 Erythrocyte distribution width (RBC) [Ratio] 47.6 fl High 35.1-43.9 [facility] Glomerular filtration rate ( GFR) estimation/1.73 sq m using serum, plasma, or whole bOrdered By: Terrell Schafer on 05-29-2025 GFR/1.73 sq M.predicted among non-blacks MDRD (S/P/Bld) [Vol rate/Area] 78 mL/min/{1.73_m2} >60 [facility] Comment on above: mL/min/1.73m2 CKD-EP I Creatinine Equation (2020) Hematocrit Auto (Bld) [Volum e fraction]Ordered By: Terrell Schafer on 05-29-2025 Hematocrit (Bld) [Volume fraction] 36.2 % Low 37-47 [facility] Hemoglobin measurementOrdere d By: Terrell Schafer on 05-29-2025 Hemoglobin (Bld) [Mass/Vol] 11.8 g/dL Low 12.0-15.0 [facility] Immature granulocytes/100 WB C Auto (Bld)Ordered By: Terrell Schafer on 05-29-2025 Immature granulocytes/100 WBC (Bld) 0.500 % 0.0-0.9 [facility] Comment on above: IG% - Immature Granu locytes (promyelocytes, myelocytes and metamyelocytes) > 1% indicates that a LEFT SHIFT is Present. Internal Medicine Office Vis iton 05-29-2025 Internal Medicine Office Visit Normal [facility] International normalized rat io (INR) calculationOrdered By: Terrell Schafer on 05-29-2025 INR Coag (Bld) [Relative time] 1.8 {INR} [facility] Laboratory - Chemistry and C hemistry - challengeOrdered By: Terrell Schafer on 05-29-2025 AST [Catalytic activity/Vol] 23 U/L <32 [facility] - Hematology and Cell countsOrdered By: Terrell Schafer on 05-29-2025 HbA1c (Bld) [Mass fraction] 9.7 % High 4.2-6.3 [facility] MCV (mean corpuscular volume ) determinationOrdered By: Terrell Schafer on 05-29-2025 MCV (RBC) [Entitic vol] 90.7 fL 81-99 [facility] Mean corpuscular hemoglobin (MCH) determinationOrdered By: Terrell Schafer on 05-29-2025 MCH (RBC) [Entitic mass] 29.6 pg 27.0-32.0 [facility] Mean corpuscular hemoglobin concentration (MCHC) determinationOrdered By: Rubenphillip Schafer on 05-29-2025 MCHC (RBC) [Mass/Vol] 32.6 g/dL 32-36 [facility] Mean platelet volume determi nationOrdered By: Terrell Shamaresperanzadori on 05-29-2025 Platelet mean volume (Bld) [Entitic vol] 11.2 fL 6.2-12.0 [facility] Monocyte percentageOrdered B y: Terrell Shamaresperanzadori on 05-29-2025 Monocytes/100 WBC (Bld) 11.2 % High 0-10 [facility] Neutrophil percentageOrdered By: [facility] Barrows[facility]ia Shamaresperanzadori on 05-29-2025 Neutrophils/100 WBC (Bld) 70.0 % 47-70 [facility] Nucleated red blood cell per centageOrdered By: sarachazysadia Shamaresperanzadori on 05-29-2025 Nucleated RBC/100 WBC (Bld) [Ratio] 0 % 0-5 [facility] Platelet countOrdered By: Ruben phillip Shamaresperanzadori on 05-29-2025 Platelets (Bld) [#/Vol] 185 10*3/uL 150-450 [facility] Potassium measurement (mass/ volume)Ordered By: Rubensararigobertosadia Ibanezesperanzadori on 05-29-2025 Potassium (Unsp spec) [Mass/Vol] 4.1 mmol/L 3.3-5.1 [facility] Prothrombin Time w/INRon INR Coag (PPP) [Relative time] 1.8 {INR} Normal [facility] Comment on above: Performed By: #### L 300.3900, L100.0100, L500.4050, L501.9520 ####[facility] [address] [place], [address] PT Coag (PPP) [Time] 21.6 s High 11.7-14.9 [facility] Comment on above: Performed By: #### L 300.3900, L100.0100, L500.4050, L501.9520 ####[facility] [address] [place], [place], [id number] INR Normal [facility] Comment on above: Order Comment: Comme nts: STANDING ORDER Result Comment: WRON G Performed By: #### L 300.3900 ####[facility] [address] [place], [place], [id number] PROTIME Normal 11.7-14.9 [facility] Comment on above: Order Comment: Comme nts: STANDING ORDER Result Comment: WRON G Performed By: #### L 300.3900 ####[facility] [address] [place], [place], [id number] Prothrombin timeOrdered By: Terrell Schafer on 05-29-2025 PT Coag (PPP) [Time] 21.6 s High 11.7-14.9 [facility] RBC Auto (Bld) [#/Vol]Ordere d By: Terrell Schafer on 05-29-2025 RBC (Bld) [#/Vol] 3.99 10*6/uL Low 4.2-5.4 [facility] Serum creatinine measurement (mass/volume)Ordered By: Terrell Schafer on 05-29-2025 Creatinine [Mass/Vol] 0.76 mg/dL 0.70-1.20 [facility] Serum globulin measurementOr dered By: Terrell Schafer on 05-29-2025 Globulin (S) [Mass/Vol] 3.0 g/dL 2.2-4.2 [facility] Serum glucose measurement (m ass/volume)Ordered By: Terrell Schafer on 05-29-2025 Glucose [Mass/Vol] 246 mg/dL High 70-99 [facility] Serum or plasma alanine huang otransferase (ALT) measurementOrdered By: Terrell Schafer on 05-29-2025 ALT [Catalytic activity/Vol] 14 U/L <35 [facility] Serum or plasma albumin shaniqua urement (mass/volume)Ordered By: Terrell Schafer on 05-29-2025 Albumin [Mass/Vol] 4.0 g/dL 3.4-4.8 [facility] Serum or plasma albumin/glob ulin mass ratioOrdered By: Terrell Schafer on 05-29-2025 Albumin/Globulin [Mass ratio] 1.3 {ratio} 0.9-2.4 [facility] Serum or plasma alkaline dyaln sphatase measurementOrdered By: Terrell Ibanezesperanzadori on 05-29-2025 ALP [Catalytic activity/Vol] 78 U/L 35-104 [facility] Serum or plasma calcium shaniqua urement (mass/volume)Ordered By: Terrell Schafer on 05-29-2025 Calcium [Mass/Vol] 9.5 mg/dL 7.6-11.0 [facility] Serum or plasma urea nitroge n measurement (mass/volume)Ordered By: Terrell Schafer on 05-29-2025 Urea nitrogen [Mass/Vol] 15 mg/dL 4-19 [facility] Sodium levelOrdered By: Jacob zimmermanmanuel Hanh on 05-29-2025 Sodium [Moles/Vol] 140 mmol/L 133-145 [facility] TSH DL <= 0.005 mIU/L QnOrde red By: Terrell Schafer on 05-29-2025 TSH Qn 2.950 uIU/mL 0.300-4.20 0 [facility] Thyroid Stim Hormone (TSH)on 05-29-2025 TSH 2.950 uIU/mL Normal 0.300-4.20 0 [facility] Comment on above: Performed By: #### L 300.3900, L100.0100, L500.4050, L501.9520 ####[facility] [address] [place], [address] Total proteinOrdered By: Glenn florinsadia Schafer on 05-29-2025 Protein [Mass/Vol] 7.0 g/dL 5.9-8.4 [facility] White blood cell (WBC) count Ordered By: Terrell Schafer on 05-29-2025 WBC (Bld) [#/Vol] 7.4 10*3/uL 4.4-11.0 [facility] No Panel InformationOrdered By: Rohini Díaz on 05-08-2025 INR International Normalized Ratio 2.1 [facility] No Panel Informationon 04-24 INR International Normalized Ratio 1.6 [facility] No Panel InformationOrdered By: Joel Judge on 04-17-2025 INR International Normalized Ratio 1.3 Low [facility] Endocrinology Visit Reporton 03-13-2025 Endocrinology Visit Report Normal [facility] Laboratory - Hematology and Cell countsOrdered By: Nati Renee on 03-13-2025 HbA1c (Bld) [Mass fraction] 10.5 % High 4.2-6.3 [facility] Absolute lymphocyte countOrd ered By: Terrell Schafer on 02-20-2025 Lymphocytes Auto (Unsp spec) [#/Vol] 1.12 10*3/uL 0.83-4.51 [facility] Absolute neutrophil countOrd ered By: Terrell Schafer on 02-20-2025 Neutrophils (Bld) [#/Vol] 5.7 10*3/uL 2.0-7.7 [facility] Anion gap in Serum or Plasma Ordered By: Terrell Schafer on 02-20-2025 Anion gap [Moles/Vol] 13 mmol/L 5-15 [facility] Automated lymphocyte count a s percentage of total leukocytesOrdered By: Terrell Schafer on 02-20-2025 Lymphocytes/100 WBC Auto (Unsp spec) 14.2 % Low 19-41 [facility] BUN/creatinine ratioOrdered By: Terrell Schafer on 02-20-2025 Urea nitrogen/Creatinine [Mass ratio] 24.7 mg/mg High 10-20 [facility] Basophil percentageOrdered B y: Terrell Schafer on 02-20-2025 Basophils/100 WBC (Bld) 0.6 % 0-1 [facility] Bilirubin, totalOrdered By: Terrell Schafer on 02-20-2025 Bilirubin [Mass/Vol] 1.06 mg/dL 0.00-1.30 [facility] CBC W/Diff, Automatedon Absolute Lymph 1.12 X10 3/uL Normal 0.83-4.51 [facility] Comment on above: Performed By: #### L 501.9520, L500.4050, L100.0100, L500.4100 ####[facility] [address] [place], [address] Absolute Neut 5.7 X10 3/uL Normal 2.0-7.7 [facility] Comment on above: Performed By: #### L 501.9520, L500.4050, L100.0100, L500.4100 ####[facility] [address] [place], [address] Basophils/100 WBC (Bld) 0.6 % Normal 0-1 [facility] Comment on above: Performed By: #### L 501.9520, L500.4050, L100.0100, L500.4100 ####[facility] [address] [place], [address] Eosinophils/100 WBC (Bld) 1.9 % Normal 0-5 [facility] Comment on above: Performed By: #### L 501.9520, L500.4050, L100.0100, L500.4100 ####[facility] [address] [place], [address] Erythrocyte distribution width (RBC) [Ratio] 13.2 % Normal 11.6-14.6 [facility] Comment on above: Performed By: #### L 501.9520, L500.4050, L100.0100, L500.4100 ####[facility] [address] [place], [address] Hematocrit (Bld) [Volume fraction] 36.7 % Low 37-47 [facility] Comment on above: Performed By: #### L 501.9520, L500.4050, L100.0100, L500.4100 ####[facility] [address] [place], [address] Hemoglobin (Bld) [Mass/Vol] 12.6 g/dL Normal 12.0-15.0 [facility] Comment on above: Performed By: #### L 501.9520, L500.4050, L100.0100, L500.4100 ####[facility] [address] [place], [address] IG% 0.500 Normal 0.0-0.9 [facility] Comment on above: Result Comment: IG% - Immature Granulocytes (promyelocytes, myelocytes andmetamyelocytes) > 1% indicates that a LEFT SHIFT is Present. Performed By: #### L 501.9520, L500.4050, L100.0100, L500.4100 ####[facility] [address] [place], [address] Lymphocytes/100 WBC (Bld) 14.2 % Low 19-41 [facility] Comment on above: Performed By: #### L 501.9520, L500.4050, L100.0100, L500.4100 ####[facility] [address] [place], [address] MCH (RBC) [Entitic mass] 30.4 pg Normal 27.0-32.0 [facility] Comment on above: Performed By: #### L 501.9520, L500.4050, L100.0100, L500.4100 ####[facility] [address] [place], [address] MCHC (RBC) [Mass/Vol] 34.3 g/dL Normal 32-36 [facility] Comment on above: Performed By: #### L 501.9520, L500.4050, L100.0100, L500.4100 ####[facility] [address] [place], [address] MCV (RBC) [Entitic vol] 88.6 fL Normal 81-99 [facility] Comment on above: Performed By: #### L 501.9520, L500.4050, L100.0100, L500.4100 ####[facility] [address] [place], [address] Monocytes/100 WBC (Bld) 10.4 % High 0-10 [facility] Comment on above: Performed By: #### L 501.9520, L500.4050, L100.0100, L500.4100 ####[facility] [address] [place], [address] Neutrophils/100 WBC (Bld) 72.4 % High 47-70 [facility] Comment on above: Performed By: #### L 501.9520, L500.4050, L100.0100, L500.4100 ####[facility] [address] [place], [address] Nucleated RBC (Bld) [#/Vol] 0 10*3/uL Normal 0-5 [facility] Comment on above: Performed By: #### L 501.9520, L500.4050, L100.0100, L500.4100 ####[facility] [address] [place], [address] Platelet mean volume (Bld) [Entitic vol] 11.3 fL Normal 6.2-12.0 [facility] Comment on above: Performed By: #### L 501.9520, L500.4050, L100.0100, L500.4100 ####[facility] [address] [place], [address] Platelets (Bld) [#/Vol] 135 10*3/uL Low 150-450 [facility] Comment on above: Performed By: #### L 501.9520, L500.4050, L100.0100, L500.4100 ####[facility] [address] [place], [address] RBC (Bld) [#/Vol] 4.14 10*6/uL Low 4.2-5.4 [facility] Comment on above: Performed By: #### L 501.9520, L500.4050, L100.0100, L500.4100 ####[facility] [address] [place], [address] RDW SD 42.7 fl Normal 35.1-43.9 [facility] Comment on above: Performed By: #### L 501.9520, L500.4050, L100.0100, L500.4100 ####[facility] [address] [place], [address] WBC (Bld) [#/Vol] 7.9 10*3/uL Normal 4.4-11.0 [facility] Comment on above: Performed By: #### L 501.9520, L500.4050, L100.0100, L500.4100 ####[facility] [address] [place], [address] Calculated very low density lipoprotein (VLDL) cholesterol measurementOrdered By: Terrell Schafer on 02-20-2025 Calculated very low density lipoprotein (VLDL) cholesterol measurement 50 mg/dL High 5-40 [facility] Carbon dioxide, total [Moles /volume] in Central venous bloodOrdered By: Terrell Schafer on 02-20-2025 CO2 [Moles/Vol] 22.2 mmol/L 21.0-32.0 [facility] Chloride assayOrdered By: Ruben Schafer on 02-20-2025 Chloride [Moles/Vol] 103 mmol/L 98-108 [facility] Comprehensive Metabolic Prof ilon 02-20-2025 Albumin [Mass/Vol] 4.0 g/dL Normal 3.4-4.8 [facility] Comment on above: Performed By: #### L 501.9520, L500.4050, L100.0100, L500.4100 ####[facility] [address] [place], [address] Albumin/Globulin [Mass ratio] 1.5 {ratio} Normal 0.9-2.4 [facility] Comment on above: Performed By: #### L 501.9520, L500.4050, L100.0100, L500.4100 ####[facility] [address] [place], [address] ALK PHOS 90 U/L Normal 35-104 [facility] Comment on above: Performed By: #### L 501.9520, L500.4050, L100.0100, L500.4100 ####[facility] [address] [place], [address] ALT [Catalytic activity/Vol] 23 U/L Normal <=34 [facility] Comment on above: Result Comment: Hemo lysis present, Results??could be affected.?? Performed By: #### L 501.9520, L500.4050, L100.0100, L500.4100 ####[facility] [address] [place], [address] AST [Catalytic activity/Vol] 33 U/L High <=31 [facility] Comment on above: Result Comment: Hemo lysis present, Results??could be affected.?? Performed By: #### L 501.9520, L500.4050, L100.0100, L500.4100 ####[facility] [address] [place], [address] Bilirubin [Mass/Vol] 1.06 mg/dL Normal 0.00-1.30 [facility] Comment on above: Performed By: #### L 501.9520, L500.4050, L100.0100, L500.4100 ####[facility] [address] [place], [address] BUN/CRE 24.7 RATIO High 10-20 [facility] Comment on above: Performed By: #### L 501.9520, L500.4050, L100.0100, L500.4100 ####[facility] [address] [place], [address] Calcium [Mass/Vol] 9.5 mg/dL Normal 7.6-11.0 [facility] Comment on above: Performed By: #### L 501.9520, L500.4050, L100.0100, L500.4100 ####[facility] [address] [place], [address] Chloride [Moles/Vol] 103 mmol/L Normal 98-108 [facility] Comment on above: Performed By: #### L 501.9520, L500.4050, L100.0100, L500.4100 ####[facility] [address] [place], [address] CO2 [Moles/Vol] 22.2 mmol/L Normal 21.0-32.0 [facility] Comment on above: Performed By: #### L 501.9520, L500.4050, L100.0100, L500.4100 ####[facility] [address] [place], [address] Creatinine [Mass/Vol] 1.14 mg/dL Normal 0.70-1.20 [facility] Comment on above: Performed By: #### L 501.9520, L500.4050, L100.0100, L500.4100 ####[facility] [address] [place], [address] GAP 13 Normal 5-15 [facility] Comment on above: Performed By: #### L 501.9520, L500.4050, L100.0100, L500.4100 ####[facility] [address] [place], [address] GFR/1.73 sq M.predicted among non-blacks MDRD (S/P/Bld) [Vol rate/Area] 48 mL/min/{1.73_m2} Low >60 [facility] Comment on above: Result Comment: mL/m in/1.73m2 CKD-EPI Creatinine Equation (2020) Performed By: #### L 501.9520, L500.4050, L100.0100, L500.4100 ####[facility] [address] [place], [address] Globulin (S) [Mass/Vol] 2.6 g/dL Normal 2.2-4.2 [facility] Comment on above: Performed By: #### L 501.9520, L500.4050, L100.0100, L500.4100 ####[facility] [address] [place], [address] Glucose [Mass/Vol] 341 mg/dL High 70-99 [facility] Comment on above: Performed By: #### L 501.9520, L500.4050, L100.0100, L500.4100 ####[facility] [address] [place], [address] Potassium [Moles/Vol] 4.4 mmol/L Normal 3.3-5.1 [facility] Comment on above: Result Comment: Hemo lysis present, Results??could be affected.?? Performed By: #### L 501.9520, L500.4050, L100.0100, L500.4100 ####[facility] [address] [place], [address] Sodium [Moles/Vol] 139 mmol/L Normal 133-145 [facility] Comment on above: Performed By: #### L 501.9520, L500.4050, L100.0100, L500.4100 ####[facility] [address] [place], [address] T PROT 6.7 g/dL Normal 5.9-8.4 [facility] Comment on above: Performed By: #### L 501.9520, L500.4050, L100.0100, L500.4100 ####[facility] [address] [place], [address] Urea nitrogen [Mass/Vol] 28 mg/dL High 4-19 [facility] Comment on above: Performed By: #### L 501.9520, L500.4050, L100.0100, L500.4100 ####[facility] [address] [place], [address] Eosinophil percentageOrdered By: Terrell Schafer on 02-20-2025 Eosinophils/100 WBC (Bld) 1.9 % 0-5 [facility] Erythrocyte distribution wid th ratioOrdered By: Terrell Schafer on 02-20-2025 Erythrocyte distribution width (RBC) [Ratio] 13.2 % 11.6-14.6 [facility] Erythrocyte distribution wid th standard deviationOrdered By: Terrell Schafer on 02-20-2025 Erythrocyte distribution width (RBC) [Ratio] 42.7 fl 35.1-43.9 [facility] Glomerular filtration rate ( GFR) estimation/1.73 sq m using serum, plasma, or whole bOrdered By: Terrell Schafer on 02-20-2025 GFR/1.73 sq M.predicted among non-blacks MDRD (S/P/Bld) [Vol rate/Area] 48 mL/min/{1.73_m2} Low >60 [facility] Comment on above: mL/min/1.73m2 CKD-EP I Creatinine Equation (2020) Hematocrit Auto (Bld) [Volum e fraction]Ordered By: Terrell Schafer on 02-20-2025 Hematocrit (Bld) [Volume fraction] 36.7 % Low 37-47 [facility] Hemoglobin measurementOrdere d By: Terrell Schafer on 02-20-2025 Hemoglobin (Bld) [Mass/Vol] 12.6 g/dL 12.0-15.0 [facility] Immature granulocytes/100 WB C Auto (Bld)Ordered By: Terrell Schafer on 02-20-2025 Immature granulocytes/100 WBC (Bld) 0.500 % 0.0-0.9 [facility] Comment on above: IG% - Immature Granu locytes (promyelocytes, myelocytes and metamyelocytes) > 1% indicates that a LEFT SHIFT is Present. International normalized rat io (INR) calculationOrdered By: Joel Judge on 02-20-2025 INR Coag (Bld) [Relative time] 2.5 {INR} [facility] LDL calc ser/plasOrdered By: Terrell Schafer on 02-20-2025 Cholesterol in LDL [Mass/Vol] 25 mg/dL [facility] Comment on above: Gkwoubhbvk=833-893 m g/dL & Higher Weyu=471 mg/dL or greater Laboratory - Chemistry and C hemistry - challengeOrdered By: Terrell Schafer on 02-20-2025 AST [Catalytic activity/Vol] 33 U/L High <32 [facility] Comment on above: Hemolysis present, R esults could be affected. Lipid Profileon 02-20-2025 CHOL:HDL 2.97 Normal [facility] Comment on above: Performed By: #### L 501.9520, L500.4050, L100.0100, L500.4100 ####[facility] [address] [place], [address] Cholesterol [Mass/Vol] 113 mg/dL Normal <=200 [facility] Comment on above: Result Comment: Chol esterol level, Desirable <200 mg/dLBorderline high cholesterol 200-239 mg/dLHigh cholesterol >=240 mg/dLRecommendations of the NCEP Adult Treatment Panel for thefollowing risk-cutoff thresholds for the [place] Americanpopulation. Performed By: #### L 501.9520, L500.4050, L100.0100, L500.4100 ####[facility] [address] [place], [address] Cholesterol in HDL [Mass/Vol] 38 mg/dL Low [facility] Comment on above: Result Comment: Milly onal Cholesterol Education Program (NCEP) guidelines:<40 mg/dL: Low HDL-cholesterol (major risk factor for CHD)>= 60 mg/dL: High HDL-cholesterol (negative risk factor forCHD)HDL-cholesterol is affected by a number of factors, e.g.smoking, exercise, hormones, sex and age. Performed By: #### L 501.9520, L500.4050, L100.0100, L500.4100 ####[facility] [address] [place], [address] Cholesterol in LDL [Mass/Vol] 25 mg/dL Normal [facility] Comment on above: Result Comment: Bord gshbnu=707-524 mg/dL Higher Ztlr=945 mg/dL or greater Performed By: #### L 501.9520, L500.4050, L100.0100, L500.4100 ####[facility] [address] [place], [address] Cholesterol in VLDL [Mass/Vol] 50 mg/dL High 5-40 [facility] Comment on above: Performed By: #### L 501.9520, L500.4050, L100.0100, L500.4100 ####[facility] [address] [place], [address] Triglyceride [Mass/Vol] 252 mg/dL High [facility] Comment on above: Result Comment: The drugs N-Acetylcysteine and Metamizole may falselydepress this assay.Normal range: <150 mg/dLBorderline High: 150-199 mg/dLHigh: 200-499 mg/dLVery High: >500 mg/dL Performed By: #### L 501.9520, L500.4050, L100.0100, L500.4100 ####[facility] [address] [place], [address] MCV (mean corpuscular volume ) determinationOrdered By: Terrell Schafer on 02-20-2025 MCV (RBC) [Entitic vol] 88.6 fL 81-99 [facility] Mean corpuscular hemoglobin (MCH) determinationOrdered By: Rubenphillip Schafer on 02-20-2025 MCH (RBC) [Entitic mass] 30.4 pg 27.0-32.0 [facility] Mean corpuscular hemoglobin concentration (MCHC) determinationOrdered By: Rubenphillip Ibanezesperanzadori on 02-20-2025 MCHC (RBC) [Mass/Vol] 34.3 g/dL 32-36 [facility] Mean platelet volume determi nationOrdered By: Jacobchazysadia Schafer on 02-20-2025 Platelet mean volume (Bld) [Entitic vol] 11.3 fL 6.2-12.0 [facility] Monocyte percentageOrdered B y: Rubensararigobertosadia Ibanezesperanzadori on 02-20-2025 Monocytes/100 WBC (Bld) 10.4 % High 0-10 [facility] Neutrophil percentageOrdered By: [facility] Shamardori on 02-20-2025 Neutrophils/100 WBC (Bld) 72.4 % High 47-70 [facility] Nucleated red blood cell per centageOrdered By: [facility] Barrowsadia Shamardori on 02-20-2025 Nucleated RBC/100 WBC (Bld) [Ratio] 0 % 0-5 [facility] Platelet countOrdered By: Ruben phillip Shamaresperanzadori on 02-20-2025 Platelets (Bld) [#/Vol] 135 10*3/uL Low 150-450 [facility] Potassium measurement (mass/ volume)Ordered By: Terrell Ibanezdori on 02-20-2025 Potassium (Unsp spec) [Mass/Vol] 4.4 mmol/L 3.3-5.1 [facility] Comment on above: Hemolysis present, R esults could be affected. Prothrombin Time w/INRon INR Coag (PPP) [Relative time] 2.5 {INR} Normal [facility] Comment on above: Performed By: #### L 210.8856 ####[facility] [address] [place], [place], [id number] PT Coag (PPP) [Time] 27.7 s High 11.7-14.9 [facility] Comment on above: Performed By: #### L 193.5013 ####[facility] [address] [place], [address] Prothrombin timeOrdered By: Joel Judge on 02-20-2025 PT Coag (PPP) [Time] 27.7 s High 11.7-14.9 [facility] RBC Auto (Bld) [#/Vol]Ordere d By: Terrell Schafer on 02-20-2025 RBC (Bld) [#/Vol] 4.14 10*6/uL Low 4.2-5.4 [facility] Screening total cholesterol/ high density lipoprotein (HDL) cholesterol ratioOrdered By: Terrell Schafer on 02-20-2025 Cholesterol.total/Cho lesterol in HDL [Mass ratio] 2.97 {ratio} [facility] Serum creatinine measurement (mass/volume)Ordered By: Terrell Schafer on 02-20-2025 Creatinine [Mass/Vol] 1.14 mg/dL 0.70-1.20 [facility] Serum globulin measurementOr dered By: Terrell Schafer on 02-20-2025 Globulin (S) [Mass/Vol] 2.6 g/dL 2.2-4.2 [facility] Serum glucose measurement (m ass/volume)Ordered By: Terrell Schafer on 02-20-2025 Glucose [Mass/Vol] 341 mg/dL High 70-99 [facility] Serum or plasma alanine huang otransferase (ALT) measurementOrdered By: Terrell Schafer on 02-20-2025 ALT [Catalytic activity/Vol] 23 U/L <35 [facility] Comment on above: Hemolysis present, R esults could be affected. Serum or plasma albumin shaniqua urement (mass/volume)Ordered By: Terrell Schafer on 02-20-2025 Albumin [Mass/Vol] 4.0 g/dL 3.4-4.8 [facility] [facility] Serum or plasma albumin/glob ulin mass ratioOrdered By: Terrell Schafer on 02-20-2025 Albumin/Globulin [Mass ratio] 1.5 {ratio} 0.9-2.4 [facility] Serum or plasma alkaline dylan sphatase measurementOrdered By: Terrell Schafer on 02-20-2025 ALP [Catalytic activity/Vol] 90 U/L 35-104 [facility] Serum or plasma calcium shaniqua urement (mass/volume)Ordered By: Terrell Schafer on 02-20-2025 Calcium [Mass/Vol] 9.5 mg/dL 7.6-11.0 [facility] Serum or plasma cholesterol in HDL measurement (mass/volume)Ordered By: Terrell Schafer on 02-20-2025 Cholesterol in HDL [Mass/Vol] 38 mg/dL Low >40 [facility] Comment on above: National Cholesterol Education Program (NCEP) guidelines:<40 mg/dL: Low HDL-cholesterol (major risk factor for CHD)>= 60 mg/dL: High HDL-cholesterol (negative risk factor for CHD)HDL-cholesterol is affected by a number of factors, e.g. smoking, exercise, hormones, sex and age. Serum or plasma cholesterol measurement (mass/volume)Ordered By: Terrell Schafer on 02-20-2025 Cholesterol [Mass/Vol] 113 mg/dL <201 [facility] Comment on above: Cholesterol level, D esirable <200 mg/dLBorderline high cholesterol 200-239 mg/dLHigh cholesterol >=240 mg/dLRecommendations of the NCEP Adult Treatment Panel for the following risk-cutoff thresholds for the [place] population. Serum or plasma urea nitroge n measurement (mass/volume)Ordered By: Terrell Schafer on 02-20-2025 Urea nitrogen [Mass/Vol] 28 mg/dL High 4-19 [facility] Sodium levelOrdered By: Jacob Schafer on 02-20-2025 Sodium [Moles/Vol] 139 mmol/L 133-145 [facility] TSH DL <= 0.005 mIU/L QnOrde red By: Terrell Schafer on 02-20-2025 TSH Qn 2.300 uIU/mL 0.300-4.20 0 [facility] Thyroid Stim Hormone (TSH)on 02-20-2025 TSH 2.300 uIU/mL Normal 0.300-4.20 0 [facility] Comment on above: Performed By: #### L 501.9520, L500.4050, L100.0100, L500.4100 ####[facility] [address] [place], [address] Total proteinOrdered By: Glenn Schafer on 02-20-2025 Protein [Mass/Vol] 6.7 g/dL 5.9-8.4 [facility] Triglycerides measurementOrd ered By: Terrell Schafer on 02-20-2025 Triglyceride [Mass/Vol] 252 mg/dL High <199 [facility] Comment on above: The drugs N-Acetylcy steine and Metamizole may falsely depress this assay. Normal range: <150 mg/dLBorderline High: 150-199 mg/dLHigh: 200-499 mg/dLVery High: >500 mg/dL White blood cell (WBC) count Ordered By: Terrell Schafer on 02-20-2025 WBC (Bld) [#/Vol] 7.9 10*3/uL 4.4-11.0 [facility] Cardiology Visit Reporton Cardiology Visit Report Normal [facility] Internal Medicine Office Vis iton 02-08-2025 Internal Medicine Office Visit Normal [facility] No Panel InformationOrdered By: Elkin Beltran on 01-29-2025 INR International Normalized Ratio 3.2 High [facility] Prothrombin Time w/INRon INR Coag (PPP) [Relative time] 2.0 {INR} Normal [facility] Comment on above: Performed By: #### L 300.3900 ####[facility] [address] [place], [address] PT Coag (PPP) [Time] 22.3 s High 11.7-14.9 [facility] Comment on above: Performed By: #### L 300.3900 ####[facility] [address] [place], [address] Internal Medicine Office Vis iton 11-07-2024 Internal Medicine Office Visit Normal [facility] Prothrombin Time w/INRon INR Coag (PPP) [Relative time] 3.6 {INR} Normal [facility] Comment on above: Performed By: #### L 300.3900 ####[facility] [address] [place], [address] PT Coag (PPP) [Time] 35.6 s High 11.7-14.9 [facility] Comment on above: Performed By: #### L 300.3900 ####[facility] [address] [place], [address] Prothrombin Time w/INRon INR Coag (PPP) [Relative time] 2.8 {INR} Normal [facility] Comment on above: Performed By: #### L 300.3900 ####[facility] [address] [place], [address] PT Coag (PPP) [Time] 29.1 s High 11.7-14.9 [facility] Comment on above: Performed By: #### L 300.3900 ####[facility] [address] [place], [address] Internal Medicine Office Vis iton 09-15-2024 Internal Medicine Office Visit Normal [facility] Prothrombin Time w/INRon INR Normal [facility] Comment on above: Result Comment: Canc elled via OM: Order cancelled - Patient discharged Performed By: #### L 300.3900 ####[facility] [address] [place], [address] PROTIME Normal 11.7-14.9 [facility] Comment on above: Result Comment: Canc elled via OM: Order cancelled - Patient discharged Performed By: #### L 300.3900 ####[facility] [address] [place], [address] Prothrombin Time w/INRon INR Normal [facility] Comment on above: Result Comment: Canc elled via OM: Order cancelled - Patient discharged Performed By: #### L 300.3900 ####[facility] [address] [place], [address] PROTIME Normal 11.7-14.9 [facility] Comment on above: Result Comment: Canc elled via OM: Order cancelled - Patient discharged Performed By: #### L 300.3900 ####[facility] [address] [place], [address] Prothrombin Time w/INRon INR Normal [facility] Comment on above: Result Comment: Canc elled via OM: Order cancelled - Patient discharged Performed By: #### L 300.3900 ####[facility] [address] [place], [address] PROTIME Normal 11.7-14.9 [facility] Comment on above: Result Comment: Canc elled via OM: Order cancelled - Patient discharged Performed By: #### L 300.3900 ####[facility] [address] [place], [address] Basic Metabolic Profile (BMP )on 08-23-2024 BUN/CRE 38.1 RATIO High 09-04 [facility] Comment on above: Performed By: #### L 300.3900, L500.2500, L100.0100 ####[facility] [address] [place], [address] CA,Total 8.9 mg/dL Normal 8.5-10.1 [facility] Comment on above: Performed By: #### L 300.3900, L500.2500, L100.0100 ####[facility] [address] [place], [address] Chloride [Moles/Vol] 112 mmol/L High 98-107 [facility] Comment on above: Performed By: #### L 300.3900, L500.2500, L100.0100 ####[facility] [address] [place], [address] CO2 [Moles/Vol] 25.0 mmol/L Normal 21.0-32.0 [facility] Comment on above: Performed By: #### L 300.3900, L500.2500, L100.0100 ####[facility] [address] [place], [address] Creatinine [Mass/Vol] 0.71 mg/dL Normal 0.55-1.02 [facility] Comment on above: Result Comment: The validity of the calculated GFR GFRAA in patients over70 years has not been determined. Clinical correlation isessential. Performed By: #### L 300.3900, L500.2500, L100.0100 ####[facility] [address] [place], [address] ECRCL 66.23 ml/min Normal [facility] Comment on above: Performed By: #### L 300.3900, L500.2500, L100.0100 ####[facility] [address] [place], [address] EST GFR - AA 102 mL/min Normal >60 [facility] Comment on above: Result Comment: Afri can [place]ian GFR Calc Performed By: #### L 300.3900, L500.2500, L100.0100 ####[facility] [address] [place], [address] GAP 6 Normal 5-15 [facility] Comment on above: Performed By: #### L 300.3900, L500.2500, L100.0100 ####[facility] [address] [place], [address] GFR/1.73 sq M.predicted among non-blacks MDRD (S/P/Bld) [Vol rate/Area] 84 mL/min/{1.73_m2} Normal >60 [facility] Comment on above: Result Comment: Non- GFR Calc Performed By: #### L 300.3900, L500.2500, L100.0100 ####[facility] [address] [place], [address] Glucose [Mass/Vol] 170 mg/dL High 74-106 [facility] Comment on above: Result Comment: Fast ing Glucose result greater than or equal to 126 mg/dLsuggests DIABETES MELLITUS per A.D.A. criteria. Performed By: #### L 300.3900, L500.2500, L100.0100 ####[facility] [address] [place], [address] Potassium [Moles/Vol] 4.1 mmol/L Normal 3.5-5.1 [facility] Comment on above: Performed By: #### L 300.3900, L500.2500, L100.0100 ####[facility] [address] [place], [address] Sodium [Moles/Vol] 143 mmol/L Normal 136-145 [facility] Comment on above: Performed By: #### L 300.3900, L500.2500, L100.0100 ####[facility] [address] [place], [address] Urea nitrogen [Mass/Vol] 27 mg/dL High 7-18 [facility] Comment on above: Performed By: #### L 300.3900, L500.2500, L100.0100 ####[facility] [address] [place], [address] Bedside Glucoseon 08-23-2024 FINGERSTICK GLU 226 mg/dL High 74-106 [facility] Comment on above: Result Comment: TONI KINSEY OF PATIENT CARE PER NURSING PROTOCOL Performed By: #### L 501.080 ####[facility] [address] [place], [address] FINGERSTICK GLU 222 mg/dL High 74-106 [facility] Comment on above: Result Comment: TONI GEMENT OF PATIENT CARE PER NURSING PROTOCOL Performed By: #### L 501.080 ####[facility] [address] [place], [address] FINGERSTICK GLU 159 mg/dL High 74-106 [facility] Comment on above: Result Comment: TONI GEMENT OF PATIENT CARE PER NURSING PROTOCOL Performed By: #### L 501.080 ####[facility] [address] [place], [address] CBC W/Diff, Automatedon 10-0 Absolute Lymph 1.27 X10 3/uL Normal 0.83-4.51 [facility] Comment on above: Performed By: #### L 300.3900, L500.2500, L100.0100 ####[facility] [address] [place], [address] Absolute Neut 4.3 X10 3/uL Normal 2.0-7.7 [facility] Comment on above: Performed By: #### L 300.3900, L500.2500, L100.0100 ####[facility] [address] [place], [address] Basophils/100 WBC (Bld) 0.5 % Normal 0-1 [facility] Comment on above: Performed By: #### L 300.3900, L500.2500, L100.0100 ####[facility] [address] [place], [address] Eosinophils/100 WBC (Bld) 2.1 % Normal 0-5 [facility] Comment on above: Performed By: #### L 300.3900, L500.2500, L100.0100 ####[facility] [address] [place], [address] Erythrocyte distribution width (RBC) [Ratio] 14.4 % Normal 11.6-14.6 [facility] Comment on above: Performed By: #### L 300.3900, L500.2500, L100.0100 ####[facility] [address] [place], [address] Hematocrit (Bld) [Volume fraction] 34.3 % Low 37-47 [facility] Comment on above: Performed By: #### L 300.3900, L500.2500, L100.0100 ####[facility] [address] [place], [address] Hemoglobin (Bld) [Mass/Vol] 11.1 g/dL Low 12.0-15.0 [facility] Comment on above: Performed By: #### L 300.3900, L500.2500, L100.0100 ####[facility] [address] [place], [address] IG% 0.800 Normal 0.0-0.9 [facility] Comment on above: Result Comment: IG% - Immature Granulocytes (promyelocytes, myelocytes andmetamyelocytes) > 1% indicates that a LEFT SHIFT is Present. Performed By: #### L 300.3900, L500.2500, L100.0100 ####[facility] [address] [place], [address] Lymphocytes/100 WBC (Bld) 19.2 % Normal 19-41 [facility] Comment on above: Performed By: #### L 300.3900, L500.2500, L100.0100 ####[facility] [address] [place], [address] MCH (RBC) [Entitic mass] 29.6 pg Normal 27.0-32.0 [facility] Comment on above: Performed By: #### L 300.3900, L500.2500, L100.0100 ####[facility] [address] [place], [address] MCHC (RBC) [Mass/Vol] 32.4 g/dL Normal 32-36 [facility] Comment on above: Performed By: #### L 300.3900, L500.2500, L100.0100 ####[facility] [address] [place], [address] MCV (RBC) [Entitic vol] 91.5 fL Normal 81-99 [facility] Comment on above: Performed By: #### L 300.3900, L500.2500, L100.0100 ####[facility] [address] [place], [address] Monocytes/100 WBC (Bld) 12.4 % High 0-10 [facility] Comment on above: Performed By: #### L 300.3900, L500.2500, L100.0100 ####[facility] [address] [place], [address] Neutrophils/100 WBC (Bld) 65.0 % Normal 47-70 [facility] Comment on above: Performed By: #### L 300.3900, L500.2500, L100.0100 ####[facility] [address] [place], [address] Nucleated RBC (Bld) [#/Vol] 0 10*3/uL Normal 0-5 [facility] Comment on above: Performed By: #### L 300.3900, L500.2500, L100.0100 ####[facility] [address] [place], [address] Platelet mean volume (Bld) [Entitic vol] 11.0 fL Normal 6.2-12.0 [facility] Comment on above: Performed By: #### L 300.3900, L500.2500, L100.0100 ####[facility] [address] [place], [address] Platelets (Bld) [#/Vol] 121 10*3/uL Low 150-450 [facility] Comment on above: Performed By: #### L 300.3900, L500.2500, L100.0100 ####[facility] [address] [place], [address] RBC (Bld) [#/Vol] 3.75 10*6/uL Low 4.2-5.4 [facility] Comment on above: Performed By: #### L 300.3900, L500.2500, L100.0100 ####[facility] [address] [place], [address] RDW SD 48.0 fl High 35.1-43.9 [facility] Comment on above: Performed By: #### L 300.3900, L500.2500, L100.0100 ####[facility] [address] [place], [address] WBC (Bld) [#/Vol] 6.6 10*3/uL Normal 4.4-11.0 [facility] Comment on above: Performed By: #### L 300.3900, L500.2500, L100.0100 ####[facility] [address] [place], [address] Prothrombin Time w/INRon INR Coag (PPP) [Relative time] 3.2 {INR} Normal [facility] Comment on above: Performed By: #### L 300.3900, L500.2500, L100.0100 ####[facility] [address] [place], [address] PT Coag (PPP) [Time] 32.2 s High 11.7-14.9 [facility] Comment on above: Performed By: #### L 300.3900, L500.2500, L100.0100 ####[facility] [address] [place], [address] Urinalysis, Completeon 08-23 BACTERIA 1+ /hpf Normal None Seen [facility] Comment on above: Order Comment: CLEAN CATCH Performed By: #### L 400.0001 ####[facility] [address] [place], [address] EPI,SQUAMOUS 0-5 SEEN Normal 5-10 [facility] Comment on above: Order Comment: CLEAN CATCH Performed By: #### L 400.0001 ####[facility] [address] [place], [address] WBC 0-5 SEEN Normal 0-5 [facility] Comment on above: Order Comment: CLEAN CATCH Performed By: #### L 400.0001 ####[facility] [address] [place], [address] Mucus Ql (Urine sed) 0 SEEN Normal [facility] Comment on above: Order Comment: CLEAN CATCH Performed By: #### L 400.0001 ####[facility] [address] [place], [address] RBC 0 SEEN Normal 0-5 [facility] Comment on above: Order Comment: CLEAN CATCH Performed By: #### L 400.0001 ####[facility] [address] [place], [address] Bedside Glucoseon 08-22-2024 FINGERSTICK GLU 237 mg/dL High 74-106 [facility] Comment on above: Result Comment: TONI GEMENT OF PATIENT CARE PER NURSING PROTOCOL Performed By: #### L 501.080 ####[facility] [address] [place], [address] FINGERSTICK GLU 158 mg/dL High 74-106 [facility] Comment on above: Result Comment: TONI GEMENT OF PATIENT CARE PER NURSING PROTOCOL Performed By: #### L 501.080 ####[facility] [address] [place], [address] Emergency Department Summary on 08-22-2024 Emergency Department Summary Normal [facility] H AND P Exam - [facility] 08-22-2024 H&P Exam - Hospitalist Normal [facility] L/S Spine Min 4 Viewson 10-0 L/S Spine Min 4 Views Normal [facility] Prothrombin Time w/INRon INR Coag (PPP) [Relative time] 3.3 {INR} Normal [facility] Comment on above: Performed By: #### L 300.3900 ####[facility] [address] [place], [address] PT Coag (PPP) [Time] 33.0 s High 11.7-14.9 [facility] Comment on above: Performed By: #### L 300.3900 ####[facility] [address] [place], [address] CBC W/Diff, Automatedon 07-17 Absolute Lymph 1.46 X10 3/uL Normal 0.83-4.51 [facility] Comment on above: Performed By: #### L 501.9985, L501.9520, L500.4100, L500.4050, L506.1000, L100.0100 ####[facility] [address] [place], [address] Absolute Neut 4.7 X10 3/uL Normal 2.0-7.7 [facility] Comment on above: Performed By: #### L 501.9985, L501.9520, L500.4100, L500.4050, L506.1000, L100.0100 ####[facility] [address] [place], [address] Basophils/100 WBC (Bld) 0.7 % Normal 0-1 [facility] Comment on above: Performed By: #### L 501.9985, L501.9520, L500.4100, L500.4050, L506.1000, L100.0100 ####[facility] [address] [place], [address] Eosinophils/100 WBC (Bld) 2.9 % Normal 0-5 [facility] Comment on above: Performed By: #### L 501.9985, L501.9520, L500.4100, L500.4050, L506.1000, L100.0100 ####[facility] [address] [place], [address] Erythrocyte distribution width (RBC) [Ratio] 14.0 % Normal 11.6-14.6 [facility] Comment on above: Performed By: #### L 501.9985, L501.9520, L500.4100, L500.4050, L506.1000, L100.0100 ####[facility] [address] [place], [address] Hematocrit (Bld) [Volume fraction] 37.2 % Normal 37-47 [facility] Comment on above: Performed By: #### L 501.9985, L501.9520, L500.4100, L500.4050, L506.1000, L100.0100 ####[facility] [address] [place], [address] Hemoglobin (Bld) [Mass/Vol] 12.2 g/dL Normal 12.0-15.0 [facility] Comment on above: Performed By: #### L 501.9985, L501.9520, L500.4100, L500.4050, L506.1000, L100.0100 ####[facility] [address] [place], [address] IG% 0.500 Normal 0.0-0.9 [facility] Comment on above: Result Comment: IG% - Immature Granulocytes (promyelocytes, myelocytes andmetamyelocytes) > 1% indicates that a LEFT SHIFT is Present. Performed By: #### L 501.9985, L501.9520, L500.4100, L500.4050, L506.1000, L100.0100 ####[facility] [address] [place], [address] Lymphocytes/100 WBC (Bld) 19.8 % Normal 19-41 [facility] Comment on above: Performed By: #### L 501.9985, L501.9520, L500.4100, L500.4050, L506.1000, L100.0100 ####[facility] [address] [place], [address] MCH (RBC) [Entitic mass] 29.3 pg Normal 27.0-32.0 [facility] Comment on above: Performed By: #### L 501.9985, L501.9520, L500.4100, L500.4050, L506.1000, L100.0100 ####[facility] [address] [place], [address] MCHC (RBC) [Mass/Vol] 32.8 g/dL Normal 32-36 [facility] Comment on above: Performed By: #### L 501.9985, L501.9520, L500.4100, L500.4050, L506.1000, L100.0100 ####[facility] [address] [place], [address] MCV (RBC) [Entitic vol] 89.2 fL Normal 81-99 [facility] Comment on above: Performed By: #### L 501.9985, L501.9520, L500.4100, L500.4050, L506.1000, L100.0100 ####[facility] [address] [place], [address] Monocytes/100 WBC (Bld) 11.8 % High 0-10 [facility] Comment on above: Performed By: #### L 501.9985, L501.9520, L500.4100, L500.4050, L506.1000, L100.0100 ####[facility] [address] [place], [address] Neutrophils/100 WBC (Bld) 64.3 % Normal 47-70 [facility] Comment on above: Performed By: #### L 501.9985, L501.9520, L500.4100, L500.4050, L506.1000, L100.0100 ####[facility] [address] [place], [address] Nucleated RBC (Bld) [#/Vol] 0 10*3/uL Normal 0-5 [facility] Comment on above: Performed By: #### L 501.9985, L501.9520, L500.4100, L500.4050, L506.1000, L100.0100 ####[facility] [address] [place], [address] Platelet mean volume (Bld) [Entitic vol] 11.3 fL Normal 6.2-12.0 [facility] Comment on above: Performed By: #### L 501.9985, L501.9520, L500.4100, L500.4050, L506.1000, L100.0100 ####[facility] [address] [place], [address] Platelets (Bld) [#/Vol] 158 10*3/uL Normal 150-450 [facility] Comment on above: Performed By: #### L 501.9985, L501.9520, L500.4100, L500.4050, L506.1000, L100.0100 ####[facility] [address] [place], [address] RBC (Bld) [#/Vol] 4.17 10*6/uL Low 4.2-5.4 [facility] Comment on above: Performed By: #### L 501.9985, L501.9520, L500.4100, L500.4050, L506.1000, L100.0100 ####[facility] [address] [place], [address] RDW SD 45.2 fl High 35.1-43.9 [facility] Comment on above: Performed By: #### L 501.9985, L501.9520, L500.4100, L500.4050, L506.1000, L100.0100 ####[facility] [address] [place], [address] WBC (Bld) [#/Vol] 7.4 10*3/uL Normal 4.4-11.0 [facility] Comment on above: Performed By: #### L 501.9985, L501.9520, L500.4100, L500.4050, L506.1000, L100.0100 ####[facility] [address] [place], [address] Comprehensive Metabolic Prof [facility] 08-04-2024 Albumin [Mass/Vol] 3.3 g/dL Normal 3.2-5.0 [facility] Comment on above: Performed By: #### L 501.9985, L501.9520, L500.4100, L500.4050, L506.1000, L100.0100 ####[facility] [address] [place], [address] Albumin/Globulin [Mass ratio] 1.0 {ratio} Normal 0.9-2.4 [facility] Comment on above: Performed By: #### L 501.9985, L501.9520, L500.4100, L500.4050, L506.1000, L100.0100 ####[facility] [address] [place], [address] ALK P 79 U/L Normal 45-117 [facility] Comment on above: Performed By: #### L 501.9985, L501.9520, L500.4100, L500.4050, L506.1000, L100.0100 ####[facility] [address] [place], [address] ALT [Catalytic activity/Vol] 32 U/L Normal 13-56 [facility] Comment on above: Performed By: #### L 501.9985, L501.9520, L500.4100, L500.4050, L506.1000, L100.0100 ####[facility] [address] [place], [address] AST [Catalytic activity/Vol] 28 U/L Normal 15-37 [facility] Comment on above: Performed By: #### L 501.9985, L501.9520, L500.4100, L500.4050, L506.1000, L100.0100 ####[facility] [address] [place], [address] Bilirubin [Mass/Vol] 0.90 mg/dL Normal 0.20-1.00 [facility] Comment on above: Result Comment: For patients on eltrombopag therapy, use of Dimension Cornelius TBIL is not recommended. Performed By: #### L 501.9985, L501.9520, L500.4100, L500.4050, L506.1000, L100.0100 ####[facility] [address] [place], [address] BUN/CRE 28.7 RATIO High 10-20 [facility] Comment on above: Performed By: #### L 501.9985, L501.9520, L500.4100, L500.4050, L506.1000, L100.0100 ####[facility] [address] [place], [address] CA,Total 9.2 mg/dL Normal 8.5-10.1 [facility] Comment on above: Performed By: #### L 501.9985, L501.9520, L500.4100, L500.4050, L506.1000, L100.0100 ####[facility] [address] [place], [address] Chloride [Moles/Vol] 112 mmol/L High 98-107 [facility] Comment on above: Performed By: #### L 501.9985, L501.9520, L500.4100, L500.4050, L506.1000, L100.0100 ####[facility] [address] [place], [address] CO2 [Moles/Vol] 27.0 mmol/L Normal 21.0-32.0 [facility] Comment on above: Performed By: #### L 501.9985, L501.9520, L500.4100, L500.4050, L506.1000, L100.0100 ####[facility] [address] [place], [address] Creatinine [Mass/Vol] 0.77 mg/dL Normal 0.55-1.02 [facility] Comment on above: Result Comment: The validity of the calculated GFR GFRAA in patients over70 years has not been determined. Clinical correlation isessential. Performed By: #### L 501.9985, L501.9520, L500.4100, L500.4050, L506.1000, L100.0100 ####[facility] [id number] [place], [address] EST GFR - AA 93 mL/min Normal >60 [facility] Comment on above: Result Comment: Afri can Bulgarian GFR Calc Performed By: #### L 501.9985, L501.9520, L500.4100, L500.4050, L506.1000, L100.0100 ####[facility] [id number] [place], [address] GAP 3 Low 5-15 [facility] Comment on above: Performed By: #### L 501.9985, L501.9520, L500.4100, L500.4050, L506.1000, L100.0100 ####[facility] [id number] [place], [address] GFR/1.73 sq M.predicted among non-blacks MDRD (S/P/Bld) [Vol rate/Area] 77 mL/min/{1.73_m2} Normal >60 [facility] Comment on above: Result Comment: Non- GFR Calc Performed By: #### L 501.9985, L501.9520, L500.4100, L500.4050, L506.1000, L100.0100 ####[facility] [id number] [place], [address] Globulin (S) [Mass/Vol] 3.4 g/dL Normal 2.2-4.2 [facility] Comment on above: Performed By: #### L 501.9985, L501.9520, L500.4100, L500.4050, L506.1000, L100.0100 ####[facility] [id number] [place], [address] Glucose [Mass/Vol] 204 mg/dL High 74-106 [facility] Comment on above: Result Comment: Gluc ose result greater than or equal to 200 mg/dLsuggests DIABETES MELLITUS per A.D.A. criteria. Performed By: #### L 501.9985, L501.9520, L500.4100, L500.4050, L506.1000, L100.0100 ####[facility] [address] [place], [address] Potassium [Moles/Vol] 4.0 mmol/L Normal 3.5-5.1 [facility] Comment on above: Performed By: #### L 501.9985, L501.9520, L500.4100, L500.4050, L506.1000, L100.0100 ####[facility] [address] [place], [address] Sodium [Moles/Vol] 142 mmol/L Normal 136-145 [facility] Comment on above: Performed By: #### L 501.9985, L501.9520, L500.4100, L500.4050, L506.1000, L100.0100 ####[facility] [address] [place], [address] T PROT 6.7 g/dL Normal 6.4-8.2 [facility] Comment on above: Performed By: #### L 501.9985, L501.9520, L500.4100, L500.4050, L506.1000, L100.0100 ####[facility] [address] [place], [address] Urea nitrogen [Mass/Vol] 22 mg/dL High 7-18 [facility] Comment on above: Performed By: #### L 501.9985, L501.9520, L500.4100, L500.4050, L506.1000, L100.0100 ####[facility] [address] [place], [address] Hemoglobin A1con 08-04-2024 HbA1c (Bld) [Mass fraction] 6.3 % High 3.8-5.6 [facility] Comment on above: Result Comment: Norm al < 5.7 % Prediabetic 5.7 - 6.4 % Diabetic >or= 6.5 % Please note range changes. Performed By: #### L 501.9985, L501.9520, L500.4100, L500.4050, L506.1000, L100.0100 ####[facility] [address] [place], [address] Lipid Profileon 08-04-2024 Cholesterol [Mass/Vol] 89 mg/dL Normal 200 [facility] Comment on above: Result Comment: <200 mg/dL Desirable 200-240 mg/dL Borderline >240 mg/dL High Risk Performed By: #### L 501.9985, L501.9520, L500.4100, L500.4050, L506.1000, L100.0100 ####[facility] [address] [place], [address] Cholesterol in HDL [Mass/Vol] 47 mg/dL Normal [facility] Comment on above: Result Comment: The drugs N-Acetylcysteine and Metamizole may falselydepress this assay. Reference Range HDL <40 mg/dL Low HDL Cholesterol HDL >or= 60 mg/dL High HDL Cholesterol Performed By: #### L 501.9985, L501.9520, L500.4100, L500.4050, L506.1000, L100.0100 ####[facility] [address] [place], [address] Cholesterol in LDL [Mass/Vol] 18 mg/dL Normal 0-130 [facility] Comment on above: Performed By: #### L 501.9985, L501.9520, L500.4100, L500.4050, L506.1000, L100.0100 ####[facility] [address] [place], [address] Cholesterol in VLDL [Mass/Vol] 24 mg/dL Normal 5-40 [facility] Comment on above: Performed By: #### L 501.9985, L501.9520, L500.4100, L500.4050, L506.1000, L100.0100 ####[facility] [address] [place], [address] Triglyceride [Mass/Vol] 122 mg/dL Normal [facility] Comment on above: Result Comment: The drugs N-Acetylcysteine and Metamizole may falselydepress this assay.Serum Triglycerides Reference Interval Normal <150 mg/dL Borderline high 150 - 199 mg/dL High 200 - 499 mg/dL Very High > or = 500 mg/dL Performed By: #### L 501.9985, L501.9520, L500.4100, L500.4050, L506.1000, L100.0100 ####[facility] [address] [place], [address] Microalb:Creat Ratio,Random URon 08-04-2024 Creatinine [Mass/Vol] 151.00 mg/dL Normal NO RAN GE EST. [facility] Comment on above: Performed By: #### L 502.0250 ####[facility] [address] [place], [address] MALB:CRE 47.7 mg/g CRE High <30 mg/g CRE [facility] Comment on above: Performed By: #### L 502.0250 ####[facility] [address] [place], [address] MICROALBUMIN,UR 72.1 mg/L Normal NO RANGE EST. [facility] Comment on above: Performed By: #### L 502.0250 ####[facility] [address] [place], [address] Thyroid Stim Hormone (TSH)on 08-04-2024 TSH 1.720 uIU/mL Normal 0.358-3.74 0 [facility] Comment on above: Performed By: #### L 501.9985, L501.9520, L500.4100, L500.4050, L506.1000, L100.0100 ####[facility] [address] [place], [address] Vitamin D,25 Hydroxyon 08-04 Vitamin D 25-OH 85.5 ng/mL Normal [facility] Comment on above: Result Comment: Kassi min D 25(OH) Status Range Deficiency <20 ng/mL (50nmol/L) Insufficiency 20 - 30 ng/mL (50 - 75 nmol/L) Sufficiency 30 - 100 ng/mL (75 - 250 nmol/L) Toxicity >100 ng/mL (>250 nmol/L) Performed By: #### L 501.9985, L501.9520, L500.4100, L500.4050, L506.1000, L100.0100 ####[facility] [address] [place], [address] Internal Medicine Office Vis iton 07-28-2024 Internal Medicine Office Visit Normal [facility] Prothrombin Time w/INRon INR Coag (PPP) [Relative time] 3.1 {INR} Normal [facility] Comment on above: Order Comment: Comme nts: STANDING ORDER: Fax to [phone] Performed By: #### L 3003900 ####[facility] [address] [place], [address] PT Coag (PPP) [Time] 31.8 s High 11.7-14.9 [facility] Comment on above: Order Comment: Comme nts: STANDING ORDER: Fax to 6612 Performed By: #### L 300.3900 ####[facility] [address] [place], [address] PT (PROTHROMBIN TIME) (45170 )Ordered By: Teresita Ruiz on 06-18-2023 PT (PROTHROMBIN TIME) (15180) [facility]; [facility] Work Phone: Comment on above: PERFORMED BY: Whitevector70 [facility] [id number] PT (PROTHROMBIN TIME) (16929 )Ordered By: Teresita Ruiz on 06-01-2023 PT (PROTHROMBIN TIME) (01957) [facility]; [facility] Work Phone: Comment on above: PERFORMED BY: Rebls6370 [address] [facility] [id number] PT (PROTHROMBIN TIME) ([id number] )Ordered By: Teresita Ruiz on 03-25-2023 PT (PROTHROMBIN TIME) (84946) [facility]; [facility] Work Phone: Comment on above: PERFORMED BY: [employer] Hxxawh[address] [place] [id number] PT (PROTHROMBIN TIME) (25994 )Ordered By: Teresita Ruiz on 12-23-2022 PT (PROTHROMBIN TIME) (05906) [facility]; [facility] Work Phone: Comment on above: PERFORMED BY: [employer] Babope[address] [place] [id number] PT (PROTHROMBIN TIME) (11629 )Ordered By: Teresita Ruiz on 10-16-2022 PT (PROTHROMBIN TIME) (95392) [facility]; [facility] Work Phone: Comment on above: PERFORMED BY: [employer] Teapyh[address] Road[address] [place] [id number] PT (PROTHROMBIN TIME) (53914) [facility]; [facility] Work Phone: Comment on above: PERFORMED BY: Naymitlin6370 [address] [place] [id number] PT (PROTHROMBIN TIME) (63928 )Ordered By: Teresita Ruiz on 09-25-2022 PT (PROTHROMBIN TIME) (27504) [facility]; [facility] Work Phone: Comment on above: PERFORMED BY: [employer] Vuqali59[address] [place] [id number] PT (PROTHROMBIN TIME) (57136 )Ordered By: Teresita Ruiz on 06-09-2022 PT (PROTHROMBIN TIME) (60464) [facility]; [facility] Work Phone: Comment on above: PERFORMED BY: [employer] Fbzezq[address] Road[address] [place] [id number] PT (PROTHROMBIN TIME) (78026 )Ordered By: Teresita Ruiz on 03-25-2022 PT (PROTHROMBIN TIME) (53470) [facility]; [facility] Work Phone: Comment on above: PERFORMED BY: [employer] Nuwxyg3850 [address] Road[address] [place] [id number] PT (PROTHROMBIN TIME) (57978 )Ordered By: Teresita Ruiz on 03-22-2022 PT (PROTHROMBIN TIME) (55823) [facility]; [facility] Work Phone: Comment on above: PERFORMED BY: [employer] Lzkxxj[address]61 [address] Road[address] [place] [id number] PT (PROTHROMBIN TIME) (14582 )Ordered By: Teresita Ruiz on 01-09-2022 PT (PROTHROMBIN TIME) (86894) [facility]; [facility] Work Phone: Comment on above: PERFORMED BY: [employer] Ccnzso[address]06 [address] Road[address] [place] [id number] PT (PROTHROMBIN TIME) (43811 )Ordered By: Teresita Ruiz on 01-06-2022 PT (PROTHROMBIN TIME) (15574) [facility]; [facility] Work Phone: Comment on above: PERFORMED BY: [employer] Klqifp[address] Road[address] [place] [id number] PT (PROTHROMBIN TIME) (41981 )Ordered By: Teresita Ruiz on 01-03-2022 PT (PROTHROMBIN TIME) (16031) [facility]; [facility] Work Phone: Comment on above: PERFORMED BY: [employer] Ibpvpg8769 [address] Road[address] [place] [id number] PT (PROTHROMBIN TIME) (26138 )Ordered By: Teresita Ruiz on 01-01-2022 PT (PROTHROMBIN TIME) (12569) [facility]; [facility] Work Phone: Comment on above: PERFORMED BY: [employer] Pvmsoj6616 [address] Road[address] [place] [id number] PT (PROTHROMBIN TIME) (95425 )Ordered By: Teresita Ruiz on 12-31-2021 PT (PROTHROMBIN TIME) (29229) [facility]; [facility] Work Phone: Comment on above: PERFORMED BY: [employer] Kzamnc[address] [place] [id number] PT (PROTHROMBIN TIME) (32139 )Ordered By: Mesh Man on 12-23-2021 INR Coag (PPP) [Relative time] 2.0 {INR} Abnormal 0.9-1.2 [facility]; [facility] Work Phone: Comment on above: Reference interval i s for non-anticoagulated patients. . Suggested INR therapeutic range for Vitamin K antagonist therapy: Standard Dose (moderate intensity therapeutic range): 2.0 - 3.0 Higher intensity therapeutic range 2.5 - 3.5 PATIENT NOT FASTINGP ERFORMED BY: [employer] [facility] R[address]udtl[address] [place] [id number] PT Coag (PPP) [Time] 20.9 s Abnormal 9.1-12.0 [facility]; [facility] Work Phone: Comment on above: PATIENT NOT FASTINGP ERFORMED BY: [employer] [facility] Dzzcng[address] Wind[address] [place] [id number] PT (PROTHROMBIN TIME) (63381 )Ordered By: Mesh Man on 12-09-2021 INR Coag (PPP) [Relative time] 1.8 {INR} Abnormal 0.9-1.2 [facility]; [facility] Work Phone: Comment on above: Reference interval i s for non-anticoagulated patients. . Suggested INR therapeutic range for Vitamin K antagonist therapy: Standard Dose (moderate intensity therapeutic range): 2.0 - 3.0 Higher intensity therapeutic range 2.5 - 3.5 PATIENT NOT FASTINGP ERFORMED BY: [employer] Wdmozn[address] [place] [id number] PT Coag (PPP) [Time] 19.3 s Abnormal 9.1-12.0 [facility]; [facility] Work Phone: Comment on above: PATIENT NOT FASTINGP ERFORMED BY: [employer] [facility] Cuhqkp[address] [place] [id number] PT (PROTHROMBIN TIME) ([id number] )Ordered By: Teresita Ruiz on 11-29-2021 PT (PROTHROMBIN TIME) (98660) [facility]; [facility] Work Phone: Comment on above: PERFORMED BY: [employer] [facility] Mariangel Gprtdq[address] Road[address] [place] [id number] PT (PROTHROMBIN TIME) ([id number] )Ordered By: Teresita Hurleytamiko on 11-19-2021 PT (PROTHROMBIN TIME) (83597) [facility]; [facility] Work Phone: Comment on above: PERFORMED BY: [employer] Jmfufx9821 [address] Road[address] [place] [id number] PT (PROTHROMBIN TIME) (99484 )Ordered By: Teresita Ruiz on 11-18-2021 PT (PROTHROMBIN TIME) (93279) [facility]; [facility] Work Phone: Comment on above: PERFORMED BY: [employer] Odsvqh3724 [address] Road[address] [place] [id number] PT (PROTHROMBIN TIME) (19634 )Ordered By: Mesh Man on 11-04-2021 INR Coag (PPP) [Relative time] 2.0 {INR} Abnormal 0.9-1.2 [facility]; [facility] Work Phone: Comment on above: Reference interval i s for non-anticoagulated patients. . Suggested INR therapeutic range for Vitamin K antagonist therapy: Standard Dose (moderate intensity therapeutic range): 2.0 - 3.0 Higher intensity therapeutic range 2.5 - 3.5 PATIENT NOT FASTINGP ERFORMED BY: [employer] Bhqnxw[address]170 [address] Road[address] [place] [id number] PT Coag (PPP) [Time] 21.3 s Abnormal 9.1-12.0 Comp [facility]; [facility] Work Phone: Comment on above: PATIENT NOT FASTINGP ERFORMED BY: [employer] Novbjh5272 [address] Road[address] [place] [id number] PT (PROTHROMBIN TIME) ([id number] )Ordered By: Mesh Man on 10-28-2021 INR Coag (PPP) [Relative time] 1.8 {INR} Abnormal 0.9-1.2 [facility]; [facility] Work Phone: Comment on above: Reference interval i s for non-anticoagulated patients. . Suggested INR therapeutic range for Vitamin K antagonist therapy: Standard Dose (moderate intensity therapeutic range): 2.0 - 3.0 Higher intensity therapeutic range 2.5 - 3.5 PATIENT NOT FASTINGP ERFORMED BY: [facility] Rxhogu4225 So RoadD[address] [place] [id number] PT Coag (PPP) [Time] 19.3 s Abnormal 9.1-12.0 [facility]; [facility] Work Phone: Comment on above: PATIENT NOT FASTINGP ERFORMED BY: CB [facility] Czepzf2415 [address] Road[address] [place] [id number] PT (PROTHROMBIN TIME) ([id number] )Ordered By: Mesh Man on 10-07-2021 INR Coag (PPP) [Relative time] 1.4 {INR} Abnormal 0.9-1.2 [facility]; [facility] Work Phone: Comment on above: Reference interval i s for non-anticoagulated patients. . Suggested INR therapeutic range for Vitamin K antagonist therapy: Standard Dose (moderate intensity therapeutic range): 2.0 - 3.0 Higher intensity therapeutic range 2.5 - 3.5 PATIENT NOT FASTINGP ERFORMED BY: CB [facility] Nkujam7752 [address] Road[address] [place] [id number] PT Coag (PPP) [Time] 15.4 s Abnormal 9.1-12.0 [facility]; [facility] Work Phone: Comment on above: PATIENT NOT FASTINGP ERFORMED BY: CB [facility] Wkpjsb6030 So [facility] [place] [id number] Blood Glucose , Office (2796 2)Ordered By: Virginie Calderón on 09-13-2021 Glucose Glucometer (BldC) [Moles/Vol] 290 1 Normal [facility]; [facility] Work Phone: HgA1C , Office (95719)Ordere d By: Dante Salmon on 09-13-2021 HbA1c (Bld) [Mass fraction] 9.6 % Abnormal 4.6 - 7.1 [facility]; [facility] Work Phone: PT (PROTHROMBIN TIME) (92146 )Ordered By: Mesh Man on 09-13-2021 INR Coag (PPP) [Relative time] 2.2 {INR} Abnormal 0.9-1.2 [facility]; [facility] Work Phone: Comment on above: Reference interval i s for non-anticoagulated patients. . Suggested INR therapeutic range for Vitamin K antagonist therapy: Standard Dose (moderate intensity therapeutic range): 2.0 - 3.0 Higher intensity therapeutic range 2.5 - 3.5 PATIENT NOT FASTINGP ERFORMED BY: [employer] [facility] Hqplne8494 [address] RoadD[address] [place] [id number] PT Coag (PPP) [Time] 23.5 s Abnormal 9.1-12.0 [facility]; [facility] Work Phone: Comment on above: PATIENT NOT FASTINGP ERFORMED BY: [employer] [facility] Aobzwk[address]20 [address] [place] [id number] PT (PROTHROMBIN TIME) (72812 )Ordered By: Mesh Man on 07-12-2021 INR Coag (PPP) [Relative time] 1.7 {INR} Abnormal 0.9-1.2 [facility]; [facility] Work Phone: Comment on above: Reference interval i s for non-anticoagulated patients. . Suggested INR therapeutic range for Vitamin K antagonist therapy: Standard Dose (moderate intensity therapeutic range): 2.0 - 3.0 Higher intensity therapeutic range 2.5 - 3.5 PATIENT NOT FASTINGP ERFORMED BY: [employer] [facility] Jjbfor6139 [address] WindD[address] [place] [id number] PT Coag (PPP) [Time] 18.2 s Abnormal 9.1-12.0 [facility]; [facility] Work Phone: Comment on above: PATIENT NOT FASTINGP ERFORMED BY: [employer] [facility] Zzrlto9119 [address] WindD[address] [place] [id number] Blood Glucose , Office (5496 2)Ordered By: Dante Salmon on 06-10-2021 Glucose Glucometer (BldC) [Moles/Vol] 295 1 Normal [facility]; [facility] Work Phone: CALCIFEDIOL ([phone])Ordered B y: Mesh Man on 06-10-2021 25-hydroxyvitamin D [Mass/Vol] 62.7 ng/mL Normal 30.0-100.0 [facility]; [facility] Work Phone: Comment on above: Vitamin D deficiency has been defined by the [place] of[place] and an Endocrine Society practice guideline as alevel of serum 25-OH vitamin D less than 20 ng/mL (1,2).The Endocrine Society went on to further define vitamin Dinsufficiency as a level between 21 and 29 ng/mL (2).1. IOM ([place] of [employer]). 2010. Dietary reference intakes for calcium and D. [place]: The National AcademGamida Cell Press.2. Joe MF, Norma MANCILLA, Rhonda LOCKHART, et al. Evaluation, treatment, and prevention of vitamin D deficiency: an Endocrine Society clinical practice guideline. JCEM. 2010; 96(7):1911-30. PATIENT NOT FASTINGP ERFORMED BY: [employer] Lmuxbk4255 Symtavisionin [place] [id number] CBC, Platelets & Auto Diff ( 33938)Ordered By: Mesh Man on 06-10-2021 Basophils (Bld) [#/Vol] 0.1 10*3/uL Normal 0.0-0.2 [facility]; [facility] Work Phone: Comment on above: PATIENT NOT FASTINGP ERFORMED BY: [employer] [facility] Btaamx[address] [place] [id number] Basophils/100 WBC (Bld) 1 % Normal [facility]; [facility] Work Phone: Comment on above: PATIENT NOT FASTINGP ERFORMED BY: [employer] [facility] Hvitat9336 [address]bl[address] [place] [id number] Eosinophils (Bld) [#/Vol] 0.2 10*3/uL Normal 0.0-0.4 [facility]; [facility] Work Phone: Comment on above: PATIENT NOT FASTINGP ERFORMED BY: [employer] Iyjyyg4822 [address] [place] [id number] Eosinophils/100 WBC (Bld) 3 % Normal [facility]; [facility] Work Phone: Comment on above: PATIENT NOT FASTINGP ERFORMED BY: [employer] Pfqnvp5964 [address] RoadD[address] [place] [id number] Erythrocyte distribution width (RBC) [Ratio] 13.4 % Normal 11.7-15.4 [facility]; [facility] Work Phone: Comment on above: PATIENT NOT FASTINGP ERFORMED BY: CB [facility] Uyspwh6786 [address] RoadD[address] [place] [id number] Hematocrit (Bld) [Volume fraction] 41.8 % Normal 34.0-46.6 [facility]; [facility] Work Phone: Comment on above: PATIENT NOT FASTINGP ERFORMED BY: [facility] Rqmlzg9486 [address] RoadD[address] [place] [id number] Hemoglobin (Bld) [Mass/Vol] 13.4 g/dL Normal 11.1-15.9 [facility]; [facility] Work Phone: Comment on above: PATIENT NOT FASTINGP ERFORMED BY: [facility] Opxjxq5397 [address] RoadD[address] [place] [id number] Immature granulocytes (Bld) [#/Vol] 0.1 10*3/uL Normal 0.0-0.1 [facility]; [facility] Work Phone: Comment on above: PATIENT NOT FASTINGP ERFORMED BY: [facility] Cnyjwc1051 [address] Road[address] [place] [id number] Immature granulocytes/100 WBC (Bld) 1 % Normal [facility]; [facility] Work Phone: Comment on above: PATIENT NOT FASTINGP ERFORMED BY: [facility] Ayiszn0893 [address] RoadD[address] [place] [id number] Lymphocytes (Bld) [#/Vol] 1.5 10*3/uL Normal 0.7-3.1 [facility]; [facility] Work Phone: Comment on above: PATIENT NOT FASTINGP ERFORMED BY: CB [facility] Xydene4223 [address] RoadD[address] [place] [id number] Lymphocytes/100 WBC (Bld) 16 % Normal [facility]; [facility] Work Phone: Comment on above: PATIENT NOT FASTINGP ERFORMED BY: RAOUL [facility] Qitybd8532 [address] RoadD[address] [place] [id number] MCH (RBC) [Entitic mass] 28.9 pg Normal 26.6-33.0 [facility]; [facility] Work Phone: Comment on above: PATIENT NOT FASTINGP ERFORMED BY: CB [facility] Ukfoti7278 [address] RoadD[address] [place] [id number] MCHC (RBC) [Mass/Vol] 32.1 g/dL Normal 31.5-35.7 [facility] prehensive [facility]; [facility] Work Phone: Comment on above: PATIENT NOT FASTINGP ERFORMED BY: CB [facility] Mlvprw8793 [address] RoadD[address] [place] [id number] MCV (RBC) [Entitic vol] 90 fL Normal 79-97 [facility]; [facility] Work Phone: Comment on above: PATIENT NOT FASTINGP ERFORMED BY: CB [facility] Xqvude4414 [address] [place] [id number] Monocytes (Bld) [#/Vol] 1.0 10*3/uL Abnormal 0.1-0.9 [facility]; [facility] Work Phone: Comment on above: PATIENT NOT FASTINGP ERFORMED BY: CB [facility] Gzpjzg8951 [address] RoadD[address] [place] [id number] Monocytes/100 WBC (Bld) 11 % Normal [facility]; [facility] Work Phone: Comment on above: PATIENT NOT FASTINGP ERFORMED BY: CB [facility] Kxyato8163 [address] RoadD[address] [place] [id number] Neutrophils (Bld) [#/Vol] 6.4 10*3/uL Normal 1.4-7.0 [facility]; [facility] Work Phone: Comment on above: PATIENT NOT FASTINGP ERFORMED BY: CB [facility] Ouiust7361 [address] RoadD[address] [place] [id number] Neutrophils/100 WBC (Bld) 68 % Normal [facility]; [facility] Work Phone: Comment on above: PATIENT NOT FASTINGP ERFORMED BY: CB [facility] Liytfe4238 [address] RoadD[address] [place] [id number] Platelets (Bld) [#/Vol] 160 10*3/uL Normal 150-450 [facility]; [facility] Work Phone: Comment on above: PATIENT NOT FASTINGP ERFORMED BY: CB [facility] Whztoe8878 [address] RoadD[address] [place] [id number] RBC (Bld) [#/Vol] 4.64 10*6/uL Normal 3.77-5.28 [facility]pr [facility]; [facility] Work Phone: Comment on above: PATIENT NOT FASTINGP ERFORMED BY: CB [facility] Stfeio4981 [address] RoadD[address] [place] [id number] WBC (Bld) [#/Vol] 9.2 10*3/uL Normal 3.4-10.8 [facility]; [facility] Work Phone: Comment on above: PATIENT NOT FASTINGP ERFORMED BY: CB [facility] Tihktc7151 [address] RoadD[address] [place] [id number] HgA1C , Office ([id number])Ordere d By: Dante Salmon on 06-10-2021 HbA1c (Bld) [Mass fraction] 10.8 % Abnormal 4.6 - 7.1 [facility]; [facility] Work Phone: Metabolic Panel, Comprehensi ru ([phone])Ordered By: Mesh Man on 06-10-2021 Albumin [Mass/Vol] 4.2 g/dL Normal 3.7-4.7 [facility]; [facility] Work Phone: Comment on above: PATIENT NOT FASTINGP ERFORMED BY: CB [facility] Zbcpve6864 [address] Road[address] [place] [id number] Albumin/Globulin [Mass ratio] 1.6 {ratio} Normal 1.2-2.2 [facility]; [facility] Work Phone: Comment on above: PATIENT NOT FASTINGP ERFORMED BY: CB [facility] Mxfsht0346 [address] RoadD[address] [place] [id number] ALP [Catalytic activity/Vol] 137 U/L Abnormal 48-121 [facility]; [facility] Work Phone: Comment on above: PATIENT NOT FASTINGP ERFORMED BY: RAOUL [facility] Xcithr9961 [address] RoadD[address] [place] [id number] ALT [Catalytic activity/Vol] 19 U/L Normal 0-32 [facility]; [facility] Work Phone: Comment on above: PATIENT NOT FASTINGP ERFORMED BY: CB [facility] Zocnqy3027 [address] RoadD[address] [place] [id number] AST [Catalytic activity/Vol] 18 U/L Normal 0-40 [facility]; [facility] Work Phone: Comment on above: PATIENT NOT FASTINGP ERFORMED BY: RAOUL [facility] Rufelz4849 [address] RoadD[address] [place] [id number] Bilirubin [Mass/Vol] 0.9 mg/dL Normal 0.0-1.2 [facility]; [facility] Work Phone: Comment on above: PATIENT NOT FASTINGP ERFORMED BY: CB [facility] Rpyvke1292 [address] RoadD[address] [place] [id number] Calcium [Mass/Vol] 9.5 mg/dL Normal 8.7-10.3 [facility]; [facility] Work Phone: Comment on above: PATIENT NOT FASTINGP ERFORMED BY: CB [facility] Muvkbt6705 [address] RoadD[address] [place] [id number] Chloride [Moles/Vol] 98 mmol/L Normal 96-106 [facility]; [facility] Work Phone: Comment on above: PATIENT NOT FASTINGP ERFORMED BY: CB [facility] Jpokgs6675 So RoadD[address] [place] [id number] CO2 [Moles/Vol] 22 mmol/L Normal 20-29 [facility]; [facility] Work Phone: Comment on above: PATIENT NOT FASTINGP ERFORMED BY: CB [facility] Mfpsnq6718 So RoadDublin [place] [id number] Creatinine [Mass/Vol] 1.30 mg/dL Abnormal 0.57-1.00 Com prehensive Internal Medicine; [facility] Work Phone: Comment on above: PATIENT NOT FASTINGP ERFORMED BY: [facility] [facility] [id number] GFR/1.73 sq M.predicted among blacks CKD-EPI (S/P/Bld) [Vol rate/Area] 45 mL/min/1.73 Abnormal [facility]; [facility] Work Phone: Comment on above: [facility] currently reports eGFR in compliance with the current recommendations of the National Kidney Foundation. [employer] will update reporting as new guidelines are published from the NKF-ASN Task force. PATIENT NOT FASTINGP ERFORMED BY: [facility] [facility] [id number] GFR/1.73 sq M.predicted among non-blacks CKD-EPI (S/P/Bld) [Vol rate/Area] 39 mL/min/1.73 Abnormal [facility]; [facility] Work Phone: Comment on above: PATIENT NOT FASTINGP ERFORMED BY: [facility] [facility] [id number] Globulin (S) [Mass/Vol] 2.7 g/dL Normal 1.5-4.5 [facility]; [facility] Work Phone: Comment on above: PATIENT NOT FASTINGP ERFORMED BY: [facility] [facility] [id number] Glucose [Mass/Vol] 351 mg/dL Abnormal 65-99 [facility] Internal Medicine; [facility] Work Phone: Comment on above: Client Requested [place] g PATIENT NOT FASTINGP ERFORMED BY: [facility] [facility] [id number] Potassium [Moles/Vol] 4.4 mmol/L Normal 3.5-5.2 [facility] prehensive Internal Medicine; [facility] Work Phone: Comment on above: PATIENT NOT FASTINGP ERFORMED BY: RAOUL Cuevalin[address] [place] [id number] Protein [Mass/Vol] 6.9 g/dL Normal 6.0-8.5 [facility] Internal Medicine; [facility] Work Phone: Comment on above: PATIENT NOT FASTINGP ERFORMED BY: RAOUL LabMariangel CuevaHmfiwy4156 So RoadDublin [place] [id number] Sodium [Moles/Vol] 135 mmol/L Normal 134-144 [facility] Internal Medicine; [facility] Work Phone: Comment on above: PATIENT NOT FASTINGP ERFORMED BY: RAOUL Cuevalin[address]Dublin [place] [id number] Urea nitrogen [Mass/Vol] 36 mg/dL Abnormal 8-27 [facility]; [facility] Work Phone: Comment on above: PATIENT NOT FASTINGP ERFORMED BY: RAOUL LabCojoe CuevaQdhruh1269 [address] RoadDublin [place] [id number] Urea nitrogen/Creatinine [Mass ratio] 28 mg/mg Normal 12-28 [facility]; [facility] Work Phone: Comment on above: PATIENT NOT FASTINGP ERFORMED BY: RAOUL Cuevalin[address]Dublin [place] [id number] PT (PROTHROMBIN TIME) ([id number] )Ordered By: Mesh Man on 06-10-2021 INR Coag (PPP) [Relative time] 2.6 {INR} Abnormal 0.9-1.2 [facility]; [facility] Work Phone: Comment on above: Reference interval i s for non-anticoagulated patients. . Suggested INR therapeutic range for Vitamin K antagonist therapy: Standard Dose (moderate intensity therapeutic range): 2.0 - 3.0 Higher intensity therapeutic range 2.5 - 3.5 PATIENT NOT FASTINGP ERFORMED BY: RAOUL [facility] Ylyvoz38[address] RoadDublin [place] [id number] PT Coag (PPP) [Time] 26.7 s Abnormal 9.1-12.0 [facility] Internal Medicine; [facility] Work Phone: Comment on above: PATIENT NOT FASTINGP ERFORMED BY: Brain Paraderp Wyidcx8[address] RoadDublin [place] [id number] TSH ([id number])Ordered By: Scarlet Swan on 06-10-2021 TSH Qn 3.410 {uIU/mL} Normal 0.450-4.50 0 [facility]; [facility] Work Phone: Comment on above: PATIENT NOT FASTINGP ERFORMED BY: [employer] LabRace Yourselfrp Knxepn0[address] RoadDublin [place] [id number] PT (PROTHROMBIN TIME) ([id number] )Ordered By: Teresita Ruiz on 04-26-2021 PT (PROTHROMBIN TIME) ([id number]) [facility]; [facility] Work Phone: Comment on above: PERFORMED BY: Naymitlin[address] RoadDublin [place] [id number] PT (PROTHROMBIN TIME) ([id number] )Ordered By: Teresita Ruiz on 04-24-2021 PT (PROTHROMBIN TIME) ([id number]) [facility]; [facility] Work Phone: Comment on above: PERFORMED BY: [facility] Nqlohe60[address] So RoadDublin [place] [id number] PT (PROTHROMBIN TIME) ([id number] )Ordered By: Teresita Ruiz on 03-13-2021 PT (PROTHROMBIN TIME) ([id number]) [facility]; [facility] Work Phone: Comment on above: PERFORMED BY: [employer] Jiiamc5119 [address] RoadDublin [place] [id number] PT (PROTHROMBIN TIME) ([id number]) [facility]; [facility] Work Phone: Comment on above: PERFORMED BY: [employer] Aebgvk1514 [address] RoadDublin [place] [id number] PT (PROTHROMBIN TIME) ([id number] )Ordered By: Teresita Ruiz on 03-11-2021 PT (PROTHROMBIN TIME) (73930) [facility]; [facility] Work Phone: Comment on above: PERFORMED BY: Rebls[address] [place] [id number] PT (PROTHROMBIN TIME) (93738) [facility]; [facility] Work Phone: Comment on above: PERFORMED BY: Naymitlin[address] [place] [id number] PT (PROTHROMBIN TIME) ([id number] )Ordered By: Mesh Man on 03-05-2021 INR Coag (PPP) [Relative time] 2.5 {INR} Abnormal 0.9-1.2 [facility]; [facility] Work Phone: Comment on above: Reference interval i s for non-anticoagulated patients. . Suggested INR therapeutic range for Vitamin K antagonist therapy: Standard Dose (moderate intensity therapeutic range): 2.0 - 3.0 Higher intensity therapeutic range 2.5 - 3.5 PATIENT NOT FASTINGP ERFORMED BY: [employer] [place] [id number] PT Coag (PPP) [Time] 25.2 s Abnormal 9.1-12.0 Comp rehensive Internal Medicine; [facility] Work Phone: Comment on above: PATIENT NOT FASTINGP ERFORMED BY: [employer] [place] [id number] PT (PROTHROMBIN TIME) ([id number] )Ordered By: Teresita Ruiz on 03-05-2021 PT (PROTHROMBIN TIME) ([id number]) [facility]; [facility] Work Phone: Comment on above: PERFORMED BY: Rebls6[address] [place] [id number] PT (PROTHROMBIN TIME) ([id number] )Ordered By: Teresita Ruiz on 03-01-2021 PT Coag (PPP) [Time] Comp rehensive Internal Medicine; [facility] Work Phone: Comment on above: PERFORMED BY: [employer] Tuizmy62[address] RoadDublin [place] [id number] Blood Glucose , Office ([id number])Ordered By: Dante Salmon on 02-27-2021 Glucose Glucometer (BldC) [Moles/Vol] 151 1 Normal [facility]; [facility] Work Phone: CALCIFEDIOL ([id number])Ordered B y: Mesh Man on 02-27-2021 25-Hydroxyvitamin D2+25-Hydroxyvitamin D3 [Mass/Vol] 60.3 ng/mL Normal 30.0-100.0 [facility]; [facility] Work Phone: Comment on above: Vitamin D deficiency has been defined by the [place] [facility] and an Endocrine Society practice guideline as alevel of serum 25-OH vitamin D less than 20 ng/mL (1,2).The Endocrine Society went on to further define vitamin Dinsufficiency as a level between 21 and 29 ng/mL (2).1. IOM ([place] of Medicine). 2010. Dietary reference intakes for calcium and D. [place]: The National Academies Press.2. Joe MF, Norma MANCILLA, Rhonda LOCKHART, et al. Evaluation, treatment, and prevention of vitamin D deficiency: an Endocrine Society clinical practice guideline. JCEM. 2010; 96(7):1911-30. PATIENT NOT FASTINGP ERFORMED BY: [employer] [facility] Tkritc7[address] RoadDublin [place] [id number] CBC, Platelets & Auto Diff ( [id number])Ordered By: Mesh Man on 02-27-2021 Basophils (Bld) [#/Vol] 0.1 {x10E3/uL} Normal 0.0-0.2 [facility]; [facility] Work Phone: Comment on above: PATIENT NOT FASTINGP ERFORMED BY: CB [facility] Bspela65[address] RoadDublin [place] [id number] Basophils (Bld) [#/Vol] 0.1 10*3/uL Normal 0.0-0.2 [facility]; [facility] Work Phone: Comment on above: PATIENT NOT FASTINGP ERFORMED BY: CB [facility] Hxvbng17[address] RoadDublin [place] [id number] Basophils/100 WBC (Bld) 1 % Normal [facility]; [facility] Work Phone: Comment on above: PATIENT NOT FASTINGP ERFORMED BY: CB [facility] Tfyxkp9377 So [facility]in [place] [id number] Eosinophils (Bld) [#/Vol] 0.3 {x10E3/uL} Normal 0.0-0.4 [facility]; [facility] Work Phone: Comment on above: PATIENT NOT FASTINGP ERFORMED BY: RAOUL Cuevalin[address] So [facility] [id number] Eosinophils (Bld) [#/Vol] 0.3 10*3/uL Normal 0.0-0.4 [facility]; [facility] Work Phone: Comment on above: PATIENT NOT FASTINGP ERFORMED BY: RAOUL Cowan[address] [facility]in [place] [id number] Eosinophils/100 WBC (Bld) 3 % Normal [facility]; [facility] Work Phone: Comment on above: PATIENT NOT FASTINGP ERFORMED BY: RAOUL Cuevalin[address] [facility] [id number] Erythrocyte distribution width (RBC) [Ratio] 12.7 % Normal 11.7-15.4 [facility]; [facility] Work Phone: Comment on above: PATIENT NOT FASTINGP ERFORMED BY: RAOUL Cowan6[address] So [facility] [id number] Hematocrit (Bld) [Volume fraction] 40.5 % Normal 34.0-46.6 [facility]; [facility] Work Phone: Comment on above: PATIENT NOT FASTINGP ERFORMED BY: RAOUL Cuevalin6[address] So [facility] [id number] Hemoglobin (Bld) [Mass/Vol] 13.4 g/dL Normal 11.1-15.9 [facility]; [facility] Work Phone: Comment on above: PATIENT NOT FASTINGP ERFORMED BY: RAOUL Cuevalin[address] So [facility] [place] [id number] Immature granulocytes (Bld) [#/Vol] 0.0 {x10E3/uL} Normal 0.0-0.1 [facility]; [facility] Work Phone: Comment on above: PATIENT NOT FASTINGP ERFORMED BY: RAOUL LabCojoe Nhdltt25[address] RoadDublin [place] [id number] Immature granulocytes (Bld) [#/Vol] 0.0 10*3/uL Normal 0.0-0.1 [facility]; [facility] Work Phone: Comment on above: PATIENT NOT FASTINGP ERFORMED BY: CB [facility] Kdfbgb5[address] RoadDublin [place] [id number] Immature granulocytes/100 WBC (Bld) 0 % Normal [facility]; [facility] Work Phone: Comment on above: PATIENT NOT FASTINGP ERFORMED BY: RAOUL LabCojoe CuevaSslzvk7821 So RoadAtrium Health University Cityin [place] [id number] Lymphocytes (Bld) [#/Vol] 1.4 {x10E3/uL} Normal 0.7-3.1 [facility]; [facility] Work Phone: Comment on above: PATIENT NOT FASTINGP ERFORMED BY: CB [facility] Dougbi7[address] So RoadAtrium Health University Cityin [place] [id number] Lymphocytes (Bld) [#/Vol] 1.4 10*3/uL Normal 0.7-3.1 [facility]; [facility] Work Phone: Comment on above: PATIENT NOT FASTINGP ERFORMED BY: CB [facility] Jwjnct37[address] So [facility]bl[facility] [place] [id number] Lymphocytes/100 WBC (Bld) 16 % Normal [facility]; [facility] Work Phone: Comment on above: PATIENT NOT FASTINGP ERFORMED BY: CB [facility] Wyljfa2734 So RoadDublin [place] [id number] MCH (RBC) [Entitic mass] 29.1 pg Normal 26.6-33.0 [facility]; [facility] Work Phone: Comment on above: PATIENT NOT FASTINGP ERFORMED BY: CB [facility] Dgpuqb7576 So RoadDublin [place] [id number] MCHC (RBC) [Mass/Vol] 33.1 g/dL Normal 31.5-35.7 [facility] prehensive Internal Medicine; [facility] Work Phone: Comment on above: PATIENT NOT FASTINGP ERFORMED BY: RAOUL Beatrice Cowan[address] [facility] [place] [id number] MCV (RBC) [Entitic vol] 88 fL Normal 79-97 [facility]; [facility] Work Phone: Comment on above: PATIENT NOT FASTINGP ERFORMED BY: RAOUL [facility] Yddjsf4186 So [facility] [place] [id number] Monocytes (Bld) [#/Vol] 0.9 {x10E3/uL} Normal 0.1-0.9 [facility]; [facility] Work Phone: Comment on above: PATIENT NOT FASTINGP ERFORMED BY: RAOUL Arceliajoe Bvnrym0108 So [facility] [id number] Monocytes (Bld) [#/Vol] 0.9 10*3/uL Normal 0.1-0.9 [facility]; [facility] Work Phone: Comment on above: PATIENT NOT FASTINGP ERFORMED BY: RAOUL Beatrice Cowan[address] [facility]in [place] [id number] Monocytes/100 WBC (Bld) 11 % Normal [facility]; [facility] Work Phone: Comment on above: PATIENT NOT FASTINGP ERFORMED BY: RAOUL Beatrice Pchmcf4177 So [facility]in [place] [id number] Neutrophils (Bld) [#/Vol] 5.7 {x10E3/uL} Normal 1.4-7.0 [facility]; [facility] Work Phone: Comment on above: PATIENT NOT FASTINGP ERFORMED BY: RAOUL [facility] Ialtqe4365 So RoadDublin [place] [id number] Neutrophils (Bld) [#/Vol] 5.7 10*3/uL Normal 1.4-7.0 [facility]; [facility] Work Phone: Comment on above: PATIENT NOT FASTINGP ERFORMED BY: CB [facility] Vgzwkh8900 So RoadDublin [place] [id number] Neutrophils/100 WBC (Bld) 69 % Normal [facility]; [facility] Work Phone: Comment on above: PATIENT NOT FASTINGP ERFORMED BY: CB [facility] Iixfxb1888 So RoadDublin [place] [id number] Platelets (Bld) [#/Vol] 193 {x10E3/uL} Normal 150-450 [facility]; [facility] Work Phone: Comment on above: PATIENT NOT FASTINGP ERFORMED BY: CB [facility] Daaogb6444 So RoadDublin [place] [id number] Platelets (Bld) [#/Vol] 193 10*3/uL Normal 150-450 [facility]; [facility] Work Phone: Comment on above: PATIENT NOT FASTINGP ERFORMED BY: CB [facility] Kkmvcr9497 So RoadDublin [place] [id number] RBC (Bld) [#/Vol] 4.61 {x10E6/uL} Normal 3.77-5.28 [facility]; [facility] Work Phone: Comment on above: PATIENT NOT FASTINGP ERFORMED BY: CB [facility] Srlufi2049 So RoadDublin [place] [id number] RBC (Bld) [#/Vol] 4.61 10*6/uL Normal 3.77-5.28 [facility]; [facility] Work Phone: Comment on above: PATIENT NOT FASTINGP ERFORMED BY: CB [facility] Txxifw9380 So RoadDublin [place] [id number] WBC (Bld) [#/Vol] 8.4 {x10E3/uL} Normal 3.4-10.8 [facility]; [facility] Work Phone: Comment on above: PATIENT NOT FASTINGP ERFORMED BY: CB [facility] Msmtax1315 So RoadDublin [place] [id number] WBC (Bld) [#/Vol] 8.4 10*3/uL Normal 3.4-10.8 [facility] Internal Medicine; [facility] Work Phone: Comment on above: PATIENT NOT FASTINGP ERFORMED BY: CB [facility] Ntxnvl1328 So RoadDublin [place] [id number] HgA1C , Office ([id number])Ordere d By: Dante Salmon on 02-27-2021 HbA1c (Bld) [Mass fraction] 8.5 % Abnormal 4.6 - 7.1 [facility]; [facility] Work Phone: Metabolic Panel, Comprehensi ve ([id number])Ordered By: Mesh Man on 02-27-2021 Albumin [Mass/Vol] 4.1 g/dL Normal 3.7-4.7 [facility] Internal Medicine; [facility] Work Phone: Comment on above: PATIENT NOT FASTINGP ERFORMED BY: CB [facility] Uzcmub9795 So RoadDublin [place] [id number] Albumin/Globulin [Mass ratio] 1.4 {ratio} Normal 1.2-2.2 [facility]; [facility] Work Phone: Comment on above: PATIENT NOT FASTINGP ERFORMED BY: CB [facility] Nvfboq2675 So RoadDublin [place] [id number] ALP [Catalytic activity/Vol] 77 [iU]/L Normal 39-117 [facility]; [facility] Work Phone: Comment on above: PATIENT NOT FASTINGP ERFORMED BY: CB [facility] Ghqjou6[address] So RoadDublin [place] [id number] ALP [Catalytic activity/Vol] 77 U/L Normal 39-117 [facility]; [facility] Work Phone: Comment on above: PATIENT NOT FASTINGP ERFORMED BY: CB [facility] Pezzht2993 So RoadDublin [place] [id number] ALT [Catalytic activity/Vol] 15 [iU]/L Normal 0-32 [facility]; [facility] Work Phone: Comment on above: PATIENT NOT FASTINGP ERFORMED BY: CB [facility] Cxfkph6167 So RoadDublin [place] [id number] ALT [Catalytic activity/Vol] 15 U/L Normal 0-32 [facility]; [facility] Work Phone: Comment on above: PATIENT NOT FASTINGP ERFORMED BY: RAOUL Cowan[address] [place] [id number] AST [Catalytic activity/Vol] 18 [iU]/L Normal 0-40 [facility]; [facility] Work Phone: Comment on above: PATIENT NOT FASTINGP ERFORMED BY: RAOUL LabAshly Yckzrl5227 So RoadDublin [place] [id number] AST [Catalytic activity/Vol] 18 U/L Normal 0-40 [facility]; [facility] Work Phone: Comment on above: PATIENT NOT FASTINGP ERFORMED BY: RAOUL Arcelia Psjylz5045 So RoadDublin [place] [id number] Bilirubin [Mass/Vol] 1.7 mg/dL Abnormal 0.0-1.2 Comp rehensive Internal Medicine; [facility] Work Phone: Comment on above: PATIENT NOT FASTINGP ERFORMED BY: [facility] Htorww2208 So RoadDublin [place] [id number] Calcium [Mass/Vol] 9.3 mg/dL Normal 8.7-10.3 [facility] Internal Medicine; [facility] Work Phone: Comment on above: PATIENT NOT FASTINGP ERFORMED BY: [facility] Jjhrfx5713 So RoadDublin [place] [id number] Chloride [Moles/Vol] 107 mmol/L Abnormal 96-106 Comp rehensive Internal Medicine; [facility] Work Phone: Comment on above: PATIENT NOT FASTINGP ERFORMED BY: [facility] Uyyjyf4905 So RoadDublin [place] [id number] CO2 [Moles/Vol] 25 mmol/L Normal 20-29 [facility] Internal Medicine; [facility] Work Phone: Comment on above: PATIENT NOT FASTINGP ERFORMED BY: [facility] Ugtufl4[address] So RoadDublin [place] [id number] Creatinine [Mass/Vol] 1.02 mg/dL Abnormal 0.57-1.00 [facility] prehensive Internal Medicine; [facility] Work Phone: Comment on above: PATIENT NOT FASTINGP ERFORMED BY: CB [facility] Emhuli4873 So RoadDublin [place] [id number] GFR/1.73 sq M predicted among blacks CKD-EPI (S/P/Bld) [Vol rate/Area] 60 mL/min/1.73 Normal [facility]; [facility] Work Phone: Comment on above: PATIENT NOT FASTINGP ERFORMED BY: CB [facility] Krjgyg9717 So RoadDublin [place] [id number] GFR/1.73 sq M predicted among non-blacks CKD-EPI (S/P/Bld) [Vol rate/Area] 52 mL/min/1.73 Abnormal [facility]; [facility] Work Phone: Comment on above: PATIENT NOT FASTINGP ERFORMED BY: CB [facility] Kxnyaq9241 [address] RoadDublin [place] [id number] Globulin (S) [Mass/Vol] 2.9 g/dL Normal 1.5-4.5 [facility]; [facility] Work Phone: Comment on above: PATIENT NOT FASTINGP ERFORMED BY: CB [facility] Mwhogp4962 So RoadDublin [place] [id number] Glucose [Mass/Vol] 138 mg/dL Abnormal 65-99 [facility] Internal Medicine; [facility] Work Phone: Comment on above: PATIENT NOT FASTINGP ERFORMED BY: CB [facility] Ftdwph6184 So RoadDublin [place] [id number] Potassium [Moles/Vol] 4.1 mmol/L Normal 3.5-5.2 [facility]; [facility] Work Phone: Comment on above: PATIENT NOT FASTINGP ERFORMED BY: CB [facility] Hunqyv1310 So RoadDublin [place] [id number] Protein [Mass/Vol] 7.0 g/dL Normal 6.0-8.5 [facility] Internal Medicine; [facility] Work Phone: Comment on above: PATIENT NOT FASTINGP ERFORMED BY: CB [facility] Vdxnjr0635 So RoadDublin [place] [id number] Sodium [Moles/Vol] 144 mmol/L Normal 134-144 [facility] Internal Medicine; [facility] Work Phone: Comment on above: PATIENT NOT FASTINGP ERFORMED BY: CB [facility] Cbxbls4869 So RoadDublin [place] [id number] Urea nitrogen [Mass/Vol] 21 mg/dL Normal 8-27 [facility]; [facility] Work Phone: Comment on above: PATIENT NOT FASTINGP ERFORMED BY: CB [facility] Scajrg2599 So RoadDublin [place] [id number] Urea nitrogen/Creatinine [Mass ratio] 21 mg/mg Normal 12-28 [facility]; [facility] Work Phone: Comment on above: PATIENT NOT FASTINGP ERFORMED BY: CB [facility] Ktubry5506 So RoadDublin [place] [id number] PT (PROTHROMBIN TIME) ([id number] )Ordered By: Teresita Ruiz on 02-27-2021 PT Coag (PPP) [Time] Comp [facility] Internal Medicine; [facility] Work Phone: Comment on above: PERFORMED BY: [facility] Mariangel Nsvvtn6617 So RoadDublin [place] [id number] PT (PROTHROMBIN TIME) ([id number] )Ordered By: Mesh Man on 02-27-2021 INR Coag (PPP) [Relative time] 1.6 {INR} Abnormal 0.9-1.2 [facility]; [facility] Work Phone: Comment on above: Reference interval i s for non-anticoagulated patients. . Suggested INR therapeutic range for Vitamin K antagonist therapy: Standard Dose (moderate intensity therapeutic range): 2.0 - 3.0 Higher intensity therapeutic range 2.5 - 3.5 PATIENT NOT FASTINGP ERFORMED BY: CB [facility] Uelyko8691 So RoadDublin [place] [id number] PT Coag (PPP) [Time] 16.7 {sec} Abnormal 9.1-12.0 Comp rehensive Internal Medicine; [facility] Work Phone: Comment on above: PATIENT NOT FASTINGP ERFORMED BY: [employer] [facility] Ofisju3701 So RoadDublin [place] [id number] PT Coag (PPP) [Time] 16.7 s Abnormal 9.1-12.0 Comp rehensive Internal Medicine; [facility] Work Phone: Comment on above: PATIENT NOT FASTINGP ERFORMED BY: [employer] [facility] Gikihk7932 So RoadDublin [place] [id number] TSH (THYROID STIMULATING HOR GIOVANNA) ([id number])Ordered By: Mesh Man on 02-27-2021 TSH Qn 2.740 {uIU/mL} Normal 0.450-4.50 0 [facility]; [facility] Work Phone: Comment on above: PATIENT NOT FASTINGP ERFORMED BY: [employer] [facility] Mkakfd3482 So RoadDublin [place] [id number] PT (PROTHROMBIN TIME) ([id number] )Ordered By: Teresita Ruiz on 02-11-2021 PT Coag (PPP) [Time] Comp rehensive Internal Medicine; [facility] Work Phone: Comment on above: PERFORMED BY: [facility] Mariangel Uxglxx0614 So RoadD[address] [place] [id number] PT (PROTHROMBIN TIME) ([id number] )Ordered By: Mesh Man on 02-11-2021 INR Coag (PPP) [Relative time] 1.4 {INR} Abnormal 0.9-1.2 [facility]; [facility] Work Phone: Comment on above: Reference interval i s for non-anticoagulated patients. . Suggested INR therapeutic range for Vitamin K antagonist therapy: Standard Dose (moderate intensity therapeutic range): 2.0 - 3.0 Higher intensity therapeutic range 2.5 - 3.5 PATIENT NOT FASTINGP ERFORMED BY: [employer] [facility] Vyhdps2730 So RoadDublin [place] [id number] PT Coag (PPP) [Time] 14.4 {sec} Abnormal 9.1-12.0 [facility]; [facility] Work Phone: Comment on above: PATIENT NOT FASTINGP ERFORMED BY: Mango Reservations6370 Symtavisionbl[address] [place] [id number] PT Coag (PPP) [Time] 14.4 s Abnormal 9.1-12.0 [facility]; [facility] Work Phone: Comment on above: PATIENT NOT FASTINGP ERFORMED BY: Mango [employer]ervations6[address] WindDublin [place] [id number] PT (PROTHROMBIN TIME) ([id number] )Ordered By: Teresita Ruiz on 02-10-2021 PT Coag (PPP) [Time] [facility]; [facility] Work Phone: Comment on above: PERFORMED BY: Naymitlin6370 So Strevusblin [place] [id number] PT (PROTHROMBIN TIME) ([id number] )Ordered By: Teresita Ruiz on 02-08-2021 PT Coag (PPP) [Time] [facility]; [facility] Work Phone: Comment on above: PERFORMED BY: Rebls6370 So Strevusblin [place] [id number] PT (PROTHROMBIN TIME) ([id number] )Ordered By: Mesh Man on 02-04-2021 INR Coag (PPP) [Relative time] 1.5 {INR} Abnormal 0.9-1.2 [facility]; [facility] Work Phone: Comment on above: Reference interval i s for non-anticoagulated patients. . Suggested INR therapeutic range for Vitamin K antagonist therapy: Standard Dose (moderate intensity therapeutic range): 2.0 - 3.0 Higher intensity therapeutic range 2.5 - 3.5 PATIENT NOT FASTINGP ERFORMED BY: [employer] Rgbdtj0974 So RoadDublin [place] [id number] PT Coag (PPP) [Time] 16.1 {sec} Abnormal 9.1-12.0 [facility]; [facility] Work Phone: Comment on above: PATIENT NOT FASTINGP ERFORMED BY: [employer] Oukukr7442 So RoadDublin [place] [id number] PT Coag (PPP) [Time] 16.1 s Abnormal 9.1-12.0 [facility]; [facility] Work Phone: Comment on above: PATIENT NOT FASTINGP ERFORMED BY: Sigmatixlin6370 So RoadDublin [place] [id number] PT (PROTHROMBIN TIME) ([id number] )Ordered By: Teresita Ruiz on 01-14-2021 PT Coag (PPP) [Time] [facility]; [facility] Work Phone: Comment on above: PERFORMED BY: Naymitlin6370 [address] RoadDublin [place] [id number] PT Coag (PPP) [Time] [facility]; [facility] Work Phone: Comment on above: PERFORMED BY: Rebls6370 [address] RoadDublin [place] [id number] PT (PROTHROMBIN TIME) ([id number] )Ordered By: Teresita Ruiz on 01-09-2021 PT Coag (PPP) [Time] [facility]; [facility] Work Phone: Comment on above: PERFORMED BY: Naymitlin6370 [address] RoadD[address] [place] [id number] PT (PROTHROMBIN TIME) ([id number] )Ordered By: Mesh Man on 12-20-2020 INR Coag (PPP) [Relative time] 1.6 {INR} Abnormal 0.9-1.2 [facility]; [facility] Work Phone: Comment on above: Reference interval i s for non-anticoagulated patients. . Suggested INR therapeutic range for Vitamin K antagonist therapy: Standard Dose (moderate intensity therapeutic range): 2.0 - 3.0 Higher intensity therapeutic range 2.5 - 3.5 PATIENT NOT FASTINGP ERFORMED BY: [employer] Tqyxac5086 So RoadDublin [place] [id number] PT Coag (PPP) [Time] 16.4 {sec} Abnormal 9.1-12.0 [facility]; [facility] Work Phone: Comment on above: PATIENT NOT FASTINGP ERFORMED BY: RAOUL [facility] Psxxpg3524 So [address] Windbl[address] [place] [id number] PT Coag (PPP) [Time] 16.4 s Abnormal 9.1-12.0 [facility]; [facility] Work Phone: Comment on above: PATIENT NOT FASTINGP ERFORMED BY: CB [facility] Ckrftd2444 So First WindLiberty [place] [id number] C-DIFFICILE, STOOL (10163)Or dered By: Mesh Man on 12-12-2020 C. difficile toxin A+B IA Ql (Stl) Negative Normal [facility]; [facility] Work Phone: Comment on above: PATIENT NOT FASTINGP ERFORMED BY: RAOUL [facility] Tlnktj2174 So StrevusUNC Health [id number] Information: SRC: C. difficile toxin A+B IA Ql (Stl) Negative Normal [facility]; [facility] Work Phone: Comment on above: PATIENT NOT FASTINGP ERFORMED BY: RAOUL [facility] Mcdqsz2833 So First WindW[facility] [id number] Information: SRC: Blood Glucose , Office ([id number] 2)Ordered By: Marie Collado on 11-28-2020 Glucose Glucometer (BldC) [Moles/Vol] 216 1 Normal [facility]; [facility] Work Phone: Comment on above: 216 CBC, Platelets & Auto Diff ( 05606)Ordered By: Mesh Man on 11-28-2020 Basophils (Bld) [#/Vol] 0.1 {x10E3/uL} Normal 0.0-0.2 [facility]; [facility] Work Phone: Comment on above: PATIENT WAS FASTINGP ERFORMED BY: RAOUL [facility] Wqxhqv1008 So RoadDublin [place] [id number] Basophils (Bld) [#/Vol] 0.1 10*3/uL Normal 0.0-0.2 [facility]; [facility] Work Phone: Comment on above: PATIENT WAS FASTINGP ERFORMED BY: [facility] Kzlfga9794 So RoadDublin [place] [id number] Basophils/100 WBC (Bld) 1 % Normal [facility]; [facility] Work Phone: Comment on above: PATIENT WAS FASTINGP ERFORMED BY: CB [facility] Uuztqy7772 So RoadDublin [place] [id number] Eosinophils (Bld) [#/Vol] 0.2 {x10E3/uL} Normal 0.0-0.4 [facility]; [facility] Work Phone: Comment on above: PATIENT WAS FASTINGP ERFORMED BY: CB [facility] Zirvkm3061 So RoadDublin [place] [id number] Eosinophils (Bld) [#/Vol] 0.2 10*3/uL Normal 0.0-0.4 [facility]; [facility] Work Phone: Comment on above: PATIENT WAS FASTINGP ERFORMED BY: [facility] Ecxfqm7535 So RoadDublin [place] [id number] Eosinophils/100 WBC (Bld) 3 % Normal [facility]; [facility] Work Phone: Comment on above: PATIENT WAS FASTINGP ERFORMED BY: [facility] Ihbwmi5432 So RoadDublin [place] [id number] Erythrocyte distribution width (RBC) [Ratio] 13.1 % Normal 11.7-15.4 [facility]; [facility] Work Phone: Comment on above: PATIENT WAS FASTINGP ERFORMED BY: [facility] Ukcafw9206 So RoadDublin [place] [id number] Hematocrit (Bld) [Volume fraction] 40.2 % Normal 34.0-46.6 [facility]; [facility] Work Phone: Comment on above: PATIENT WAS FASTINGP ERFORMED BY: CB [facility] Esvnvi2848 So RoadDublin [place] [id number] Hemoglobin (Bld) [Mass/Vol] 13.5 g/dL Normal 11.1-15.9 [facility]; [facility] Work Phone: Comment on above: PATIENT WAS FASTINGP ERFORMED BY: RAOUL Beatrice Cowan6[address] [place] [id number] Immature granulocytes (Bld) [#/Vol] 0.0 {x10E3/uL} Normal 0.0-0.1 [facility]; [facility] Work Phone: Comment on above: PATIENT WAS FASTINGP ERFORMED BY: RAOUL Beatrice Cowan6[address] [place] [id number] Immature granulocytes (Bld) [#/Vol] 0.0 10*3/uL Normal 0.0-0.1 [facility]; [facility] Work Phone: Comment on above: PATIENT WAS FASTINGP ERFORMED BY: RAOUL Arceliajoe Zhpbkm1785 So RoadDublin [place] [id number] Immature granulocytes/100 WBC (Bld) 1 % Normal [facility]; [facility] Work Phone: Comment on above: PATIENT WAS FASTINGP ERFORMED BY: RAOUL Beatrice Cowan6[address] Roadbl[address] [place] [id number] Lymphocytes (Bld) [#/Vol] 1.5 {x10E3/uL} Normal 0.7-3.1 [facility]; [facility] Work Phone: Comment on above: PATIENT WAS FASTINGP ERFORMED BY: RAOUL Beatrice Cowan6[address] [place] [id number] Lymphocytes (Bld) [#/Vol] 1.5 10*3/uL Normal 0.7-3.1 [facility]; [facility] Work Phone: Comment on above: PATIENT WAS FASTINGP ERFORMED BY: RAOUL LabMariangel CuevaEtjvuq1472 So RoadDublin [place] [id number] Lymphocytes/100 WBC (Bld) 17 % Normal [facility]; [facility] Work Phone: Comment on above: PATIENT WAS FASTINGP ERFORMED BY: RAOUL Arcelia Hhjmdr7770 So RoadD[address] [place] [id number] MCH (RBC) [Entitic mass] 29.0 pg Normal 26.6-33.0 [facility]; [facility] Work Phone: Comment on above: PATIENT WAS FASTINGP ERFORMED BY: RAOUL [place] Hlumsf2630 [facility] [id number] MCHC (RBC) [Mass/Vol] 33.6 g/dL Normal 31.5-35.7 [facility] prehensive Internal Medicine; [facility] Work Phone: Comment on above: PATIENT WAS FASTINGP ERFORMED BY: [facility] Gpqbaz7696 [facility] [id number] MCV (RBC) [Entitic vol] 86 fL Normal 79-97 [facility]; [facility] Work Phone: Comment on above: PATIENT WAS FASTINGP ERFORMED BY: [place] 1381670 [facility] [id number] Monocytes (Bld) [#/Vol] 1.0 {x10E3/uL} Abnormal 0.1-0.9 [facility]; [facility] Work Phone: Comment on above: PATIENT WAS FASTINGP ERFORMED BY: [facility] Tvozrs4770 [facility] [id number] Monocytes (Bld) [#/Vol] 1.0 10*3/uL Abnormal 0.1-0.9 [facility]; [facility] Work Phone: Comment on above: PATIENT WAS FASTINGP ERFORMED BY: [place] 1381670 [facility] [id number] Monocytes/100 WBC (Bld) 12 % Normal [facility]; [facility] Work Phone: Comment on above: PATIENT WAS FASTINGP ERFORMED BY: [facility]6370 [facility] [id number] Neutrophils (Bld) [#/Vol] 5.8 {x10E3/uL} Normal 1.4-7.0 [facility]; [facility] Work Phone: Comment on above: PATIENT WAS FASTINGP ERFORMED BY: CB [facility] Mihazs3885 So RoadDublin [place] [id number] Neutrophils (Bld) [#/Vol] 5.8 10*3/uL Normal 1.4-7.0 [facility]; [facility] Work Phone: Comment on above: PATIENT WAS FASTINGP ERFORMED BY: CB [facility] Gmgvte2137 So RoadDublin [place] [id number] Neutrophils/100 WBC (Bld) 66 % Normal [facility]; [facility] Work Phone: Comment on above: PATIENT WAS FASTINGP ERFORMED BY: CB [facility] Pbiayc9206 So RoadD[address] [place] [id number] Platelets (Bld) [#/Vol] 182 {x10E3/uL} Normal 150-450 [facility]; [facility] Work Phone: Comment on above: PATIENT WAS FASTINGP ERFORMED BY: CB [facility] Rbhtfb7794 So RoadDublin [place] [id number] Platelets (Bld) [#/Vol] 182 10*3/uL Normal 150-450 [facility]; [facility] Work Phone: Comment on above: PATIENT WAS FASTINGP ERFORMED BY: CB [facility] Bwoerp2499 So RoadDublin [place] [id number] RBC (Bld) [#/Vol] 4.66 {x10E6/uL} Normal 3.77-5.28 [facility] Internal Medicine; [facility] Work Phone: Comment on above: PATIENT WAS FASTINGP ERFORMED BY: CB [facility] Rzacgu1402 So RoadDublin [place] [id number] RBC (Bld) [#/Vol] 4.66 10*6/uL Normal 3.77-5.28 [facility] Internal Medicine; [facility] Work Phone: Comment on above: PATIENT WAS FASTINGP ERFORMED BY: CB [facility] Ziherl4986 So RoadDublin [place] [id number] WBC (Bld) [#/Vol] 8.6 {x10E3/uL} Normal 3.4-10.8 [facility]; [facility] Work Phone: Comment on above: PATIENT WAS FASTINGP ERFORMED BY: RAOUL [facility] Owwimz9101 So [facility] [place] [id number] WBC (Bld) [#/Vol] 8.6 10*3/uL Normal 3.4-10.8 [facility] Internal Medicine; [facility] Work Phone: Comment on above: PATIENT WAS FASTINGP ERFORMED BY: RAOUL [facility] Lgzgho8227 So [facility] [id number] HgA1C , Office ([id number])Ordere d By: Marie Collado on 11-28-2020 HbA1c (Bld) [Mass fraction] 7.8 % Abnormal 4.6 - 7.1 [facility] Internal Medicine; [facility] Work Phone: Comment on above: 7.8 MAGNESIUM (03881)Ordered By: Mesh Man on 11-28-2020 Magnesium [Mass/Vol] 1.9 mg/dL Normal 1.6-2.3 [facility]; [facility] Work Phone: Comment on above: PATIENT WAS FASTINGP ERFORMED BY: RAOUL [facility] Ijkqbx6897 [facility] [id number] Metabolic Panel, Comprehensi ve (75802)Ordered By: Mesh Man on 11-28-2020 Albumin [Mass/Vol] 4.4 g/dL Normal 3.7-4.7 [facility] Internal Medicine; [facility] Work Phone: Comment on above: PATIENT WAS FASTINGP ERFORMED BY: RAOUL [facility] Rwpqzz4444 So [facility]in [place] [id number] Albumin/Globulin [Mass ratio] 1.7 {ratio} Normal 1.2-2.2 [facility] Internal Medicine; [facility] Work Phone: Comment on above: PATIENT WAS FASTINGP ERFORMED BY: RAOUL [facility] Xoonye0528 So [facility] [place] [id number] ALP [Catalytic activity/Vol] 92 [iU]/L Normal 39-117 [facility]; [facility] Work Phone: Comment on above: PATIENT WAS FASTINGP ERFORMED BY: RAOUL [facility] Jwqasg8894 Os RoadDublin [place] [id number] ALP [Catalytic activity/Vol] 92 U/L Normal 39-117 [facility]; [facility] Work Phone: Comment on above: PATIENT WAS FASTINGP ERFORMED BY: CB [facility] Ofyiwj4698 So RoadDublin [place] [id number] ALT [Catalytic activity/Vol] 15 [iU]/L Normal 0-32 [facility]; [facility] Work Phone: Comment on above: PATIENT WAS FASTINGP ERFORMED BY: CB [facility] Xfiiwi8633 So RoadDublin [place] [id number] ALT [Catalytic activity/Vol] 15 U/L Normal 0-32 [facility]; [facility] Work Phone: Comment on above: PATIENT WAS FASTINGP ERFORMED BY: CB [facility] Dgmnhe9675 So RoadDublin [place] [id number] AST [Catalytic activity/Vol] 25 [iU]/L Normal 0-40 [facility]; [facility] Work Phone: Comment on above: PATIENT WAS FASTINGP ERFORMED BY: CB [facility] Tvvbhe2820 So RoadDublin [place] [id number] AST [Catalytic activity/Vol] 25 U/L Normal 0-40 [facility]; [facility] Work Phone: Comment on above: PATIENT WAS FASTINGP ERFORMED BY: CB [facility] Giuegp0482 So RoadDublin [place] [id number] Bilirubin [Mass/Vol] 1.2 mg/dL Normal 0.0-1.2 [facility]; [facility] Work Phone: Comment on above: PATIENT WAS FASTINGP ERFORMED BY: CB [facility] Lxswih6966 So RoadDublin [place] [id number] Calcium [Mass/Vol] 9.3 mg/dL Normal 8.7-10.3 [facility] Internal Medicine; [facility] Work Phone: Comment on above: PATIENT WAS FASTINGP ERFORMED BY: CB [facility] Vvoasf6380 So RoadDublin [place] [id number] Chloride [Moles/Vol] 107 mmol/L Abnormal 96-106 Comp re[facility]ive [facility] Medicine; [facility] Work Phone: Comment on above: PATIENT WAS FASTINGP ERFORMED BY: CB [facility] Vmgozv8503 So RoadAtrium Health University Cityin [place] [id number] CO2 [Moles/Vol] 22 mmol/L Normal 20-29 [facility] Internal Medicine; [facility] Work Phone: Comment on above: PATIENT WAS FASTINGP ERFORMED BY: CB [facility] Tswxpa2593 So [facility] [id number] Creatinine [Mass/Vol] 0.71 mg/dL Normal 0.57-1.00 [facility]; [facility] Work Phone: Comment on above: PATIENT WAS FASTINGP ERFORMED BY: CB [facility] Mjljsa1652 So [facility] [id number] GFR/1.73 sq M predicted among blacks CKD-EPI (S/P/Bld) [Vol rate/Area] 94 mL/min/1.73 Normal [facility]; [facility] Work Phone: Comment on above: PATIENT WAS FASTINGP ERFORMED BY: CB [facility] Haowel1166 So [facility] [id number] GFR/1.73 sq M predicted among non-blacks CKD-EPI (S/P/Bld) [Vol rate/Area] 82 mL/min/1.73 Normal [facility]; [facility] Work Phone: Comment on above: PATIENT WAS FASTINGP ERFORMED BY: CB [facility] Omkfwx7861 So [facility] [id number] Globulin (S) [Mass/Vol] 2.6 g/dL Normal 1.5-4.5 [facility]; [facility] Work Phone: Comment on above: PATIENT WAS FASTINGP ERFORMED BY: CB [facility] Evvhdn1245 So RoadDublin [place] [id number] Glucose [Mass/Vol] 186 mg/dL Abnormal 65-99 [facility] Internal Medicine; [facility] Work Phone: Comment on above: PATIENT WAS FASTINGP ERFORMED BY: CB [facility] Fyhywc7430 So RoadDublin [place] [id number] Potassium [Moles/Vol] 4.6 mmol/L Normal 3.5-5.2 [facility]; [facility] Work Phone: Comment on above: PATIENT WAS FASTINGP ERFORMED BY: CB [facility] Obafic6317 So RoadDublin [place] [id number] Protein [Mass/Vol] 7.0 g/dL Normal 6.0-8.5 [facility] Internal Medicine; [facility] Work Phone: Comment on above: PATIENT WAS FASTINGP ERFORMED BY: CB [facility] Jceggf2931 So RoadDublin [place] [id number] Sodium [Moles/Vol] 142 mmol/L Normal 134-144 [facility] Internal Medicine; [facility] Work Phone: Comment on above: PATIENT WAS FASTINGP ERFORMED BY: CB [facility] Qvzala9330 So RoadDublin [place] [id number] Urea nitrogen [Mass/Vol] 29 mg/dL Abnormal 8-27 [facility] Internal Medicine; [facility] Work Phone: Comment on above: PATIENT WAS FASTINGP ERFORMED BY: CB [facility] Khnbcs5735 So RoadDublin [place] [id number] Urea nitrogen/Creatinine [Mass ratio] 41 mg/mg Abnormal 12-28 [facility]; [facility] Work Phone: Comment on above: PATIENT WAS FASTINGP ERFORMED BY: CB [facility] Koonhx9825 So RoadDublin [place] [id number] PT (PROTHROMBIN TIME) ([id number] )Ordered By: Teresita Ruiz on 11-28-2020 PT Coag (PPP) [Time] [facility]; [facility] Work Phone: Comment on above: PERFORMED BY: RAOUL [facility] Egblby0976 So RoadDublin [place] [id number] PT (PROTHROMBIN TIME) ([id number] )Ordered By: Mesh Man on 11-28-2020 INR Coag (PPP) [Relative time] 2.1 {INR} Abnormal 0.9-1.2 [facility]; [facility] Work Phone: Comment on above: Reference interval i s for non-anticoagulated patients. . Suggested INR therapeutic range for Vitamin K antagonist therapy: Standard Dose (moderate intensity therapeutic range): 2.0 - 3.0 Higher intensity therapeutic range 2.5 - 3.5 PATIENT WAS FASTINGP ERFORMED BY: [facility] Rspxrl9145 So RoadDublin [place] [id number] PT Coag (PPP) [Time] 21.2 {sec} Abnormal 9.1-12.0 [facility]; [facility] Work Phone: Comment on above: PATIENT WAS FASTINGP ERFORMED BY: RAOUL [facility] Wrrbht7886 So RoadDublin [place] [id number] PT Coag (PPP) [Time] 21.2 s Abnormal 9.1-12.0 [facility]; [facility] Work Phone: Comment on above: PATIENT WAS FASTINGP ERFORMED BY: [facility] Krrreb7817 So First WindDuin [place] [id number] TSH (THYROID STIMULATING HOR GIOVANNA) (22263)Ordered By: Mesh Man on 11-28-2020 TSH Qn 2.950 {uIU/mL} Normal 0.450-4.50 0 [facility]; [facility] Work Phone: Comment on above: PATIENT WAS FASTINGP ERFORMED BY: [facility] Oecalh9639 So RoadDublin [place] [id number] PT (PROTHROMBIN TIME) ([id number] )Ordered By: Teresita Ruiz on 11-12-2020 PT Coag (PPP) [Time] [facility]; [facility] Work Phone: Comment on above: PERFORMED BY: [employer] Mariangel Fzeuba8917 Symtavisionin [place] [id number] PT (PROTHROMBIN TIME) ([id number] )Ordered By: Teresita Ruiz on 11-08-2020 PT Coag (PPP) [Time] [facility]; [facility] Work Phone: Comment on above: PERFORMED BY: [facility] Mariangel Endpne8270 SymtavisionUNC Health [id number] 2018 Novel Coronavirus (COVI D-19), [place] (26336)Ordered By: Mesh Man on 11-06-20202018 Novel Coronavirus (COVID-19), [place] (49783) Detected Abnormal [facility]; [facility] Work Phone: Comment on above: Client Requested Fla gThis nucleic acid amplification test was developed and its performancecharacteristics determined by [employer]. Nucleic acidamplification tests include PCR and TMA. [...] this assay. PATIENT NOT FASTINGP ERFORMED BY: Sigmatixlin6370 [facility]isionUNC [facility] [id number] 2018 Novel Coronavirus (COVID-19), [place] (38895) Detected Abnormal [facility]; [facility] Work Phone: Comment on above: Client Requested Fla gThis nucleic acid amplification test was developed and its performancecharacteristics determined by [employer]. Nucleic acidamplification tests include PCR and TMA. [...] this assay. PATIENT NOT FASTINGP ERFORMED BY: [employer]6370 [facility] [place] [id number] PT (PROTHROMBIN TIME) ([id number] )Ordered By: Teresita Ruiz on 11-06-2020 PT Coag (PPP) [Time] [facility] re[facility] Medicine; [facility] Work Phone: Comment on above: PERFORMED BY: Rebls6370 [facility] [place] [id number] PT Coag (PPP) [Time] [facility] re[facility]ive Internal Medicine; [facility] Work Phone: Comment on above: PERFORMED BY: Rebls6370 [facility] [place] [id number] LIPID PANEL ([id number])Ordered B y: Mesh Man on 10-30-2020 Cholesterol [Mass/Vol] 130 mg/dL Normal 100-199 [facility]; [facility] Work Phone: Comment on above: Oct 30; PATIENT WAS FASTINGPERFORMED BY: [place] [id number] Cholesterol in HDL [Mass/Vol] 43 mg/dL Normal [facility]; [facility] Work Phone: Comment on above: Oct 30; PATIENT WAS FASTINGPERFORMED BY: CB [facility] Wkkzkv7167 So RoadDublin [place] [id number] Cholesterol in LDL/Cholesterol in HDL [Mass ratio] 1.6 {ratio} Normal 0.0-3.2 [facility]; [facility] Work Phone: Comment on above: LDL/HDL Ratio Men Wo men 1/2 Avg.Risk 1.0 1.5 Avg.Risk 3.6 3.2 2X Avg.Risk 6.2 5.0 3X Avg.Risk 8.0 6.1 Oct 30; PATIENT WAS FASTINGPERFORMED BY: CB [facility] Lfmeli0987 So RoadDublin [place] [id number] Triglyceride [Mass/Vol] 101 mg/dL Normal 0-149 [facility]; [facility] Work Phone: Comment on above: Oct 30; PATIENT WAS FASTINGPERFORMED BY: CB [facility] Uboymr3684 So RoadDublin [place] [id number] LIPID PANEL (57459) 19 mg/dL Normal 5-40 [facility]; [facility] Work Phone: Comment on above: Oct 30; PATIENT WAS FASTINGPERFORMED BY: CB [facility] Hsgogw8108 So RoadDublin [place] [id number] LIPID PANEL (23193) 68 mg/dL Normal 0-99 [facility]; [facility] Work Phone: Comment on above: Oct 30; PATIENT WAS FASTINGPERFORMED BY: CB [facility] Pwhjah6200 So RoadDublin [place] [id number] LIPID PANEL (10458) 1.6 {ratio} Normal 0.0-3.2 [facility] Internal Medicine; [facility] Work Phone: Comment on above: LDL/HDL Ratio Men Wo men 1/2 Avg.Risk 1.0 1.5 Avg.Risk 3.6 3.2 2X Avg.Risk 6.2 5.0 3X Avg.Risk 8.0 6.1 Oct 30; PATIENT WAS FASTINGPERFORMED BY: CB [facility] Mtwezc5399 So RoadDublin [place] [id number] Metabolic Panel, Comprehensi ve (68313)Ordered By: Mesh Man on 10-30-2020 Albumin [Mass/Vol] 4.2 g/dL Normal 3.7-4.7 [facility]; [facility] Work Phone: Comment on above: Oct 30; PATIENT WAS FASTINGPERFORMED BY: CB [facility] Arlrbb8639 So RoadDublin [place] [id number] Albumin/Globulin [Mass ratio] 1.6 {ratio} Normal 1.2-2.2 [facility]; [facility] Work Phone: Comment on above: Oct 30; PATIENT WAS FASTINGPERFORMED BY: CB [facility] Nrkbgr1357 So RoadDublin [place] [id number] ALP [Catalytic activity/Vol] 91 [iU]/L Normal 39-117 [facility]; [facility] Work Phone: Comment on above: Oct 30; PATIENT WAS FASTINGPERFORMED BY: CB [facility] Azcxdt5108 So RoadDublin [place] [id number] ALP [Catalytic activity/Vol] 91 U/L Normal 39-117 [facility]; [facility] Work Phone: Comment on above: Oct 30; PATIENT WAS FASTINGPERFORMED BY: CB [facility] Boxlfg9174 So RoadDublin [place] [id number] ALT [Catalytic activity/Vol] 20 [iU]/L Normal 0-32 [facility]; [facility] Work Phone: Comment on above: Oct 30; PATIENT WAS FASTINGPERFORMED BY: CB [facility] Jpmvtx1596 So RoadDublin [place] [id number] ALT [Catalytic activity/Vol] 20 U/L Normal 0-32 [facility]; [facility] Work Phone: Comment on above: Oct 30; PATIENT WAS FASTINGPERFORMED BY: CB [facility] Ltjtnf7859 So RoadDublin [place] [id number] AST [Catalytic activity/Vol] 27 [iU]/L Normal 0-40 [facility]; [facility] Work Phone: Comment on above: Oct 30; PATIENT WAS FASTINGPERFORMED BY: CB [facility] Lhjafi9126 So RoadDublin [place] [id number] AST [Catalytic activity/Vol] 27 U/L Normal 0-40 [facility]; [facility] Work Phone: Comment on above: Oct 30; PATIENT WAS FASTINGPERFORMED BY: CB [facility] Zxyvbb3125 So RoadDublin [place] [id number] Bilirubin [Mass/Vol] 1.1 mg/dL Normal 0.0-1.2 [facility]; [facility] Work Phone: Comment on above: Oct 30; PATIENT WAS FASTINGPERFORMED BY: CB [facility] Ptbuih5343 So RoadDublin [place] [id number] Calcium [Mass/Vol] 9.4 mg/dL Normal 8.7-10.3 [facility]; [facility] Work Phone: Comment on above: Oct 30; PATIENT WAS FASTINGPERFORMED BY: CB [facility] Arvluv9889 So RoadDublin [place] [id number] Chloride [Moles/Vol] 105 mmol/L Normal 96-106 [facility]; [facility] Work Phone: Comment on above: Oct 30; PATIENT WAS FASTINGPERFORMED BY: CB [facility] Zikcqu0740 So RoadDublin [place] [id number] CO2 [Moles/Vol] 22 mmol/L Normal 20-29 [facility]; [facility] Work Phone: Comment on above: Oct 30; PATIENT WAS FASTINGPERFORMED BY: CB [facility] Dsinxu4151 [address] RoadDublin [place] [id number] Creatinine [Mass/Vol] 0.81 mg/dL Normal 0.57-1.00 [facility]; [facility] Work Phone: Comment on above: Oct 30; PATIENT WAS FASTINGPERFORMED BY: CB [facility] Xdcoej5610 So RoadDublin [place] [id number] GFR/1.73 sq M predicted among blacks CKD-EPI (S/P/Bld) [Vol rate/Area] 80 mL/min/1.73 Normal [facility]; [facility] Work Phone: Comment on above: Oct 30; PATIENT WAS FASTINGPERFORMED BY: CB [facility] Ulmhkb7371 So RoadDublin [place] [id number] GFR/1.73 sq M predicted among non-blacks CKD-EPI (S/P/Bld) [Vol rate/Area] 70 mL/min/1.73 Normal [facility]; [facility] Work Phone: Comment on above: Oct 30; PATIENT WAS FASTINGPERFORMED BY: [facility] Obwhee7043 So RoadDublin [place] [id number] Globulin (S) [Mass/Vol] 2.7 g/dL Normal 1.5-4.5 [facility] Medicine; [facility] Work Phone: Comment on above: Oct 30; PATIENT WAS FASTINGPERFORMED BY: [facility] Dgkpuv8201 So RoadDublin [place] [id number] Glucose [Mass/Vol] 181 mg/dL Abnormal 65-99 [facility]; [facility] Work Phone: Comment on above: Oct 30; PATIENT WAS FASTINGPERFORMED BY: [facility] Nasytr9460 So RoadDublin [place] [id number] Potassium [Moles/Vol] 4.3 mmol/L Normal 3.5-5.2 [facility]; [facility] Work Phone: Comment on above: Oct 30; PATIENT WAS FASTINGPERFORMED BY: CB [facility] Iasgaw3618 So RoadDublin [place] [id number] Protein [Mass/Vol] 6.9 g/dL Normal 6.0-8.5 [facility]; [facility] Work Phone: Comment on above: Oct 30; PATIENT WAS FASTINGPERFORMED BY: CB [facility] Fgqrho1283 So RoadDublin [place] [id number] Sodium [Moles/Vol] 142 mmol/L Normal 134-144 [facility]; [facility] Work Phone: Comment on above: Oct 30; PATIENT WAS FASTINGPERFORMED BY: [facility] Zmtsgx2370 So RoadDublin [place] [id number] Urea nitrogen [Mass/Vol] 26 mg/dL Normal 8-27 [facility]; [facility] Work Phone: Comment on above: Oct 30; PATIENT WAS FASTINGPERFORMED BY: [facility] Oaruog9356 So RoadDublin [place] [id number] Urea nitrogen/Creatinine [Mass ratio] 32 mg/mg Abnormal - [facility]; [facility] Work Phone: Comment on above: Oct 30; PATIENT WAS FASTINGPERFORMED BY: [facility] Xtcgiv0517 So RoadDublin [place] [id number] PT (PROTHROMBIN TIME) ([id number] )Ordered By: Teresita Ruiz on 10-30-2020 PT Coag (PPP) [Time] [facility]; [facility] Work Phone: Comment on above: PERFORMED BY: [facility] Ahfhtq9795 So RoadDublin [place] [id number] PT (PROTHROMBIN TIME) ([id number] )Ordered By: Mesh Man on 10-30-2020 INR Coag (PPP) [Relative time] 2.1 {INR} Abnormal 0.9-1.2 [facility]; [facility] Work Phone: Comment on above: Reference interval i s for non-anticoagulated patients. . Suggested INR therapeutic range for Vitamin K antagonist therapy: Standard Dose (moderate intensity therapeutic range): 2.0 - 3.0 Higher intensity therapeutic range 2.5 - 3.5 Oct 30; PATIENT WAS FASTINGPERFORMED BY: [facility] Flvine0454 So RoadDublin [place] [id number] PT Coag (PPP) [Time] 21.4 {sec} Abnormal 9.1-12.0 [facility]; [facility] Work Phone: Comment on above: Oct 30; PATIENT WAS FASTINGPERFORMED BY: [employer] Mktzym0128 So RoadDublin [place] [id number] PT Coag (PPP) [Time] 21.4 s Abnormal 9.1-12.0 [facility]; [facility] Work Phone: Comment on above: Oct 30; PATIENT WAS FASTINGPERFORMED BY: CB [facility] Gkcxbp8630 So RoadDublin [place] [id number] TSH ([id number])Ordered By: COCCe m Electric Repair Supervisor on 10-30-2020 TSH Qn 4.510 {uIU/mL} Abnormal 0.450-4.50 0 [facility]; [facility] Work Phone: Comment on above: Oct 30; PATIENT WAS FASTINGPERFORMED BY: [employer] [facility] Ulfita4350 So RoadDublin [place] [id number] PT (PROTHROMBIN TIME) ([id number] )Ordered By: Teresita Ruiz on 10-24-2020 PT Coag (PPP) [Time] [facility]; [facility] Work Phone: Comment on above: PERFORMED BY: [facility] Mariangel Xscrnn3410 So RoadDublin [place] [id number] PT (PROTHROMBIN TIME) ([id number] )Ordered By: Mesh Man on 10-24-2020 INR Coag (PPP) [Relative time] 2.1 {INR} Abnormal 0.9-1.2 [facility]; [facility] Work Phone: Comment on above: Reference interval i s for non-anticoagulated patients. . Suggested INR therapeutic range for Vitamin K antagonist therapy: Standard Dose (moderate intensity therapeutic range): 2.0 - 3.0 Higher intensity therapeutic range 2.5 - 3.5 PATIENT NOT FASTINGP ERFORMED BY: CB [facility] Vepjkm7850 So RoadDublin [place] [id number] PT Coag (PPP) [Time] 21.4 {sec} Abnormal 9.1-12.0 [facility]; [facility] Work Phone: Comment on above: PATIENT NOT FASTINGP ERFORMED BY: [employer] [facility] Gaayay4337 So RoadDublin [place] [id number] PT Coag (PPP) [Time] 21.4 s Abnormal 9.1-12.0 [facility]; [facility] Work Phone: Comment on above: PATIENT NOT FASTINGP ERFORMED BY: [facility] Cgblka6498 So RoadD[address] [place] [id number] PT (PROTHROMBIN TIME) ([id number] )Ordered By: Teresita Ruiz on 10-16-2020 PT Coag (PPP) [Time] [facility] Work Phone: Comment on above: PERFORMED BY: [facility] [facility] Nmccjf5731 So RoadD[place] [id number] PT Coag (PPP) [Time] [facility] Work Phone: Comment on above: PERFORMED BY: [facility] [facility] Xazzgu2948 So RoadD[place] [id number] PT (PROTHROMBIN TIME) ([id number] )Ordered By: Mesh Man on 10-15-2020 INR Coag (PPP) [Relative time] 1.3 {INR} Abnormal 0.9-1.2 [facility] Work Phone: Comment on above: Reference interval i s for non-anticoagulated patients. . Suggested INR therapeutic range for Vitamin K antagonist therapy: Standard Dose (moderate intensity therapeutic range): 2.0 - 3.0 Higher intensity therapeutic range 2.5 - 3.5 PATIENT NOT FASTINGP ERFORMED BY: [employer] Sjhtkh7559 So RoadDublin [place] [id number] PT Coag (PPP) [Time] 13.2 {sec} Abnormal 9.1-12.0 [facility] Work Phone: Comment on above: PATIENT NOT FASTINGP ERFORMED BY: [employer] Iervjo1318 So RoadD[place] [id number] PT Coag (PPP) [Time] 13.2 s Abnormal 9.1-12.0 [facility]; [facility] Work Phone: Comment on above: PATIENT NOT FASTINGP ERFORMED BY: [employer] Dfpumk4672 So RoadD[address] [place] [id number] PT (PROTHROMBIN TIME) ([id number] )Ordered By: Teresita Ruiz on 10-03-2020 PT Coag (PPP) [Time] [facility] Work Phone: Comment on above: PERFORMED BY: [employer] Kzbidt4367 So RoadD[place] [id number] PT (PROTHROMBIN TIME) ([id number] )Ordered By: Teresita Ruiz on 09-17-2020 PT Coag (PPP) [Time] [facility] Work Phone: Comment on above: PERFORMED BY: [employer] [facility] Uaweqa9766 So RoadD[place] [id number] PT (PROTHROMBIN TIME) ([id number] )Ordered By: Mesh Man on 09-17-2020 INR Coag (PPP) [Relative time] 2.0 {INR} Abnormal 0.9-1.2 [facility] Work Phone: Comment on above: Reference interval i s for non-anticoagulated patients. . Suggested INR therapeutic range for Vitamin K antagonist therapy: Standard Dose (moderate intensity therapeutic range): 2.0 - 3.0 Higher intensity therapeutic range 2.5 - 3.5 PATIENT NOT FASTINGP ERFORMED BY: [employer]lin6370 [address] RoadD[address] [place] [id number] PT Coag (PPP) [Time] 21.1 {sec} Abnormal 9.1-12.0 [facility] Work Phone: Comment on above: PATIENT NOT FASTINGP ERFORMED BY: Sigmatixlin6370 So RoadD[place] [id number] PT Coag (PPP) [Time] 21.1 s Abnormal 9.1-12.0 [facility]; [facility] Work Phone: Comment on above: PATIENT NOT FASTINGP ERFORMED BY: Sigmatixlin6370 [address] RoadD[place] [id number] PT (PROTHROMBIN TIME) ([id number] )Ordered By: Mesh Man on 08-31-2020 INR Coag (PPP) [Relative time] [...] PATIENT NOT FASTINGP ERFORMED BY: CB [facility] Ovxaad6017 So RoadDublin [place] [id number] PT Coag (PPP) [Time] 20.3 {sec} Abnormal 9.1-12.0 [facility] Work Phone: Comment on above: Please note refere nce interval change PATIENT NOT FASTINGP ERFORMED BY: CB [facility] Psmcnq3135 So RoadDublin [place] [id number] PT Coag (PPP) [Time] 20.3 s Abnormal 9.1-12.0 [facility]; [facility] Work Phone: Comment on above: Please note refere nce interval change PATIENT NOT FASTINGP ERFORMED BY: [employer] [facility] Tgjdyd2686 So RoadDublin [place] [id number] PT (PROTHROMBIN TIME) ([id number] )Ordered By: Teresita Ruiz on 08-22-2020 PT Coag (PPP) [Time] [facility] Work Phone: Comment on above: PERFORMED BY: [facility] Mariangel Vwwfsu2863 So RoadD[place] [id number] PT (PROTHROMBIN TIME) ([id number] )Ordered By: Mesh Man on 08-22-2020 INR Coag (PPP) [Relative time] [...] PATIENT NOT FASTINGP ERFORMED BY: CB [facility] Ubtcvx4069 So RoadD[place] [id number] PT Coag (PPP) [Time] 16.2 {sec} Abnormal 9.1-12.0 [facility] Work Phone: Comment on above: Please note refere nce interval change PATIENT NOT FASTINGP ERFORMED BY: [employer] [facility] Hdsfai6887 So RoadDublin [place] [id number] PT Coag (PPP) [Time] 16.2 s Abnormal 9.1-12.0 [facility]; [facility] Work Phone: Comment on above: Please note refere nce interval change PATIENT NOT FASTINGP ERFORMED BY: [employer] LabRace Yourselfrp Tvsxic7902 So RoadDublin [place] [id number] PT (PROTHROMBIN TIME) ([id number] )Ordered By: Teresita Ruiz on 08-15-2020 PT Coag (PPP) [Time] [facility] Work Phone: Comment on above: PERFORMED BY: [employer] Aaxsdd4623 Os RoadDublin [place] [id number] PT (PROTHROMBIN TIME) ([id number] )Ordered By: Teresita Ruiz on 07-18-2020 PT Coag (PPP) [Time] [facility] Work Phone: Comment on above: PERFORMED BY: [facility] Mariangel Dvbngw8748 So RoadD[place] [id number] PT Coag (PPP) [Time] [facility] Work Phone: Comment on above: PERFORMED BY: [facility] Mariangel Omuwem0174 So RoadDublin [place] [id number] Blood Glucose , Office ([phone])Ordered By: Dante Cross on 07-16-2020 Glucose Glucometer (BldC) [Moles/Vol] 235 1 Normal [facility] Work Phone: CBC, Platelets & Auto Diff ( [phone])Ordered By: Mesh Man on 07-16-2020 Basophils (Bld) [#/Vol] 0.1 {x10E3/uL} Normal 0.0-0.2 [facility] Work Phone: Comment on above: PATIENT NOT FASTINGP ERFORMED BY: CB [facility] Umewoy7199 So RoadDublin [place] [id number] Basophils (Bld) [#/Vol] 0.1 10*3/uL Normal 0.0-0.2 [facility]; [facility] Work Phone: Comment on above: PATIENT NOT FASTINGP ERFORMED BY: CB [facility] Lrxsmo0360 Os RoadDublin [place] [id number] Basophils/100 WBC (Bld) 1 % Normal [facility] Work Phone: Comment on above: PATIENT NOT FASTINGP ERFORMED BY: CB [facility] Xoibto1650 So RoadD[place] [id number] Eosinophils (Bld) [#/Vol] 0.2 {x10E3/uL} Normal 0.0-0.4 [facility] Work Phone: Comment on above: PATIENT NOT FASTINGP ERFORMED BY: CB [facility] Rkwyvu7895 So RoadD[place] [id number] Eosinophils (Bld) [#/Vol] 0.2 10*3/uL Normal 0.0-0.4 [facility]; [facility] Work Phone: Comment on above: PATIENT NOT FASTINGP ERFORMED BY: CB [facility] Aqagzp9554 So RoadD[address] [place] [id number] Eosinophils/100 WBC (Bld) 3 % Normal [facility] Work Phone: Comment on above: PATIENT NOT FASTINGP ERFORMED BY: CB [facility] Ftbjeb0006 So RoadDublin [place] [id number] Erythrocyte distribution width (RBC) [Ratio] 13.5 % Normal 11.7-15.4 [facility] Work Phone: Comment on above: PATIENT NOT FASTINGP ERFORMED BY: CB [facility] Ysrcmz3057 So RoadDublin [place] [id number] Hematocrit (Bld) [Volume fraction] 42.2 % Normal 34.0-46.6 [facility] Work Phone: Comment on above: PATIENT NOT FASTINGP ERFORMED BY: RAOUL [facility] Wujazu8026 So RoadDublin [place] [id number] Hemoglobin (Bld) [Mass/Vol] 13.9 g/dL Normal 11.1-15.9 [facility] Work Phone: Comment on above: PATIENT NOT FASTINGP ERFORMED BY: CB [facility] Pnpgvy0811 So RoadDublin [place] [id number] Immature granulocytes (Bld) [#/Vol] 0.1 {x10E3/uL} Normal 0.0-0.1 [facility] Work Phone: Comment on above: PATIENT NOT FASTINGP ERFORMED BY: CB [facility] Zmwsxo5057 So RoadD[place] [id number] Immature granulocytes (Bld) [#/Vol] 0.1 10*3/uL Normal 0.0-0.1 [facility]; [facility] Work Phone: Comment on above: PATIENT NOT FASTINGP ERFORMED BY: [facility] Oiocwc3637 So RoadDublin [place] [id number] Immature granulocytes/100 WBC (Bld) 1 % Normal [facility] Work Phone: Comment on above: PATIENT NOT FASTINGP ERFORMED BY: [facility] Bjgmys9826 So RoadD[address] [place] [id number] Lymphocytes (Bld) [#/Vol] 1.4 {x10E3/uL} Normal 0.7-3.1 [facility] Work Phone: Comment on above: PATIENT NOT FASTINGP ERFORMED BY: CB [facility] Wdfiqc8456 So RoadDublin [place] [id number] Lymphocytes (Bld) [#/Vol] 1.4 10*3/uL Normal 0.7-3.1 [facility]; [facility] Work Phone: Comment on above: PATIENT NOT FASTINGP ERFORMED BY: CB [facility] Xlotma2836 So RoadDublin [place] [id number] Lymphocytes/100 WBC (Bld) 16 % Normal [facility] Work Phone: Comment on above: PATIENT NOT FASTINGP ERFORMED BY: CB [facility] Vqzayz8651 So RoadDublin [place] [id number] MCH (RBC) [Entitic mass] 29.8 pg Normal 26.6-33.0 [facility] Internal Medicine Work Phone: Comment on above: PATIENT NOT FASTINGP ERFORMED BY: CB [facility] Yhqjif5386 So Roadblin [place] [id number] MCHC (RBC) [Mass/Vol] 32.9 g/dL Normal 31.5-35.7 [facility] Internal Medicine Work Phone: Comment on above: PATIENT NOT FASTINGP ERFORMED BY: CB [facility] Kjunrh1572 So RoadDublin [place] [id number] MCV (RBC) [Entitic vol] 90 fL Normal 79-97 [facility] Internal Medicine Work Phone: Comment on above: PATIENT NOT FASTINGP ERFORMED BY: CB [facility] Mzoqfn8355 So RoadAtrium Health University Cityin [place] [id number] Monocytes (Bld) [#/Vol] 0.9 {x10E3/uL} Normal 0.1-0.9 [facility] Work Phone: Comment on above: PATIENT NOT FASTINGP ERFORMED BY: CB [facility] Wbzeyb8886 So RoadDublin [place] [id number] Monocytes (Bld) [#/Vol] 0.9 10*3/uL Normal 0.1-0.9 [facility]; [facility] Work Phone: Comment on above: PATIENT NOT FASTINGP ERFORMED BY: CB [facility] Qfgppn3193 So RoadDublin [place] [id number] Monocytes/100 WBC (Bld) 10 % Normal [facility] Work Phone: Comment on above: PATIENT NOT FASTINGP ERFORMED BY: CB [facility] Knippn3530 So RoadDublin [place] [id number] Neutrophils (Bld) [#/Vol] 6.1 {x10E3/uL} Normal 1.4-7.0 [facility] Work Phone: Comment on above: PATIENT NOT FASTINGP ERFORMED BY: CB [facility] Tnvwsz9509 So RoadDublin [place] [id number] Neutrophils (Bld) [#/Vol] 6.1 10*3/uL Normal 1.4-7.0 [facility]; [facility] Work Phone: Comment on above: PATIENT NOT FASTINGP ERFORMED BY: CB [facility] Zqzibk4634 So RoadDublin [place] [id number] Neutrophils/100 WBC (Bld) 69 % Normal [facility] Work Phone: Comment on above: PATIENT NOT FASTINGP ERFORMED BY: CB [facility] Lchrkj4155 So RoadDublin [place] [id number] Platelets (Bld) [#/Vol] 181 {x10E3/uL} Normal 150-450 [facility] Work Phone: Comment on above: PATIENT NOT FASTINGP ERFORMED BY: CB [facility] Mukrmq8085 So RoadDublin [place] [id number] Platelets (Bld) [#/Vol] 181 10*3/uL Normal 150-450 [facility]; [facility] Work Phone: Comment on above: PATIENT NOT FASTINGP ERFORMED BY: CB [facility] Dxnoai5370 So RoadDublin [place] [id number] RBC (Bld) [#/Vol] 4.67 {x10E6/uL} Normal 3.77-5.28 [facility] Internal Medicine Work Phone: Comment on above: PATIENT NOT FASTINGP ERFORMED BY: CB [facility] Hjcxmi9993 So RoadDublin [place] [id number] RBC (Bld) [#/Vol] 4.67 10*6/uL Normal 3.77-5.28 [facility] Internal Medicine; [facility] Work Phone: Comment on above: PATIENT NOT FASTINGP ERFORMED BY: CB [facility] Jwqsop7219 So RoadDublin [place] [id number] WBC (Bld) [#/Vol] 8.8 {x10E3/uL} Normal 3.4-10.8 [facility] prehensive Internal Medicine Work Phone: Comment on above: PATIENT NOT FASTINGP ERFORMED BY: RAOUL [facility] Wskuir0278 [facility] [id number] WBC (Bld) [#/Vol] 8.8 10*3/uL Normal 3.4-10.8 [facility]; [facility] Work Phone: Comment on above: PATIENT NOT FASTINGP ERFORMED BY: RAOUL [facility] Gklhbh4722 [facility] [id number] HgA1C , Office ([id number])Ordere d By: Dante Cross on 07-16-2020 HbA1c (Bld) [Mass fraction] 9.0 % Abnormal 4.6 - 7.1 [facility] Internal Medicine Work Phone: Comment on above: 9.0 Metabolic Panel, Comprehensi ru ([id number])Ordered By: Mesh Man on 07-16-2020 Albumin [Mass/Vol] 4.2 g/dL Normal 3.7-4.7 [facility] Internal Medicine Work Phone: Comment on above: PATIENT NOT FASTINGP ERFORMED BY: [facility]L [facility] Cxhula7794 [facility] [id number] Albumin/Globulin [Mass ratio] 1.6 {ratio} Normal 1.2-2.2 [facility] Internal Medicine Work Phone: Comment on above: PATIENT NOT FASTINGP ERFORMED BY: RAOUL [facility] Nlhjwq3896 [facility] [id number] ALP [Catalytic activity/Vol] 127 [iU]/L Abnormal 39-117 [facility] Work Phone: Comment on above: PATIENT NOT FASTINGP ERFORMED BY: RAOUL [facility] Tgnrvw8210 [facility] [id number] ALP [Catalytic activity/Vol] 127 U/L Abnormal 39-117 [facility]; [facility] Work Phone: Comment on above: PATIENT NOT FASTINGP ERFORMED BY: RAOUL [facility] Soyfxm5329 So RoadDublin [place] [id number] ALT [Catalytic activity/Vol] 18 [iU]/L Normal 0-32 [facility] Work Phone: Comment on above: PATIENT NOT FASTINGP ERFORMED BY: CB [facility] Tvhlhz1484 So RoadDublin [place] [id number] ALT [Catalytic activity/Vol] 18 U/L Normal 0-32 [facility]; [facility] Work Phone: Comment on above: PATIENT NOT FASTINGP ERFORMED BY: CB [facility] Qeiizr0189 So RoadD[place] [id number] AST [Catalytic activity/Vol] 17 [iU]/L Normal 0-40 [facility] Work Phone: Comment on above: PATIENT NOT FASTINGP ERFORMED BY: RAOUL [facility] Klcuux3676 So RoadDublin [place] [id number] AST [Catalytic activity/Vol] 17 U/L Normal 0-40 [facility]; [facility] Work Phone: Comment on above: PATIENT NOT FASTINGP ERFORMED BY: RAOUL [facility] Eppkyp9625 So RoadDublin [place] [id number] Bilirubin [Mass/Vol] 1.1 mg/dL Normal 0.0-1.2 [facility] Work Phone: Comment on above: PATIENT NOT FASTINGP ERFORMED BY: [facility] Giukkg7389 So RoadDublin [place] [id number] Calcium [Mass/Vol] 9.8 mg/dL Normal 8.7-10.3 [facility] Internal Medicine Work Phone: Comment on above: PATIENT NOT FASTINGP ERFORMED BY: CB [facility] Vkkjyw2409 So RoadDublin [place] [id number] Chloride [Moles/Vol] 102 mmol/L Normal 96-106 [facility] Work Phone: Comment on above: PATIENT NOT FASTINGP ERFORMED BY: RAOUL [facility] Ptzren3114 So RoadDublin [place] [id number] CO2 [Moles/Vol] 25 mmol/L Normal 20-29 [facility] Internal Medicine Work Phone: Comment on above: PATIENT NOT FASTINGP ERFORMED BY: CB [facility] Kcamva3022 So [facility] [id number] Creatinine [Mass/Vol] 0.88 mg/dL Normal 0.57-1.00 [facility] Work Phone: Comment on above: PATIENT NOT FASTINGP ERFORMED BY: CB [facility] Kkmbtx0314 So [facility] [id number] GFR/1.73 sq M predicted among blacks CKD-EPI (S/P/Bld) [Vol rate/Area] 73 mL/min/1.73 Normal [facility] Work Phone: Comment on above: PATIENT NOT FASTINGP ERFORMED BY: CB [facility] Coqrlu9009 So [facility] [id number] GFR/1.73 sq M predicted among non-blacks CKD-EPI (S/P/Bld) [Vol rate/Area] 63 mL/min/1.73 Normal [facility] Work Phone: Comment on above: PATIENT NOT FASTINGP ERFORMED BY: CB [facility] Zodrtl0441 So [facility] [id number] Globulin (S) [Mass/Vol] 2.7 g/dL Normal 1.5-4.5 [facility] Internal Medicine Work Phone: Comment on above: PATIENT NOT FASTINGP ERFORMED BY: CB [facility] Xjubnq5366 So [facility] [id number] Glucose [Mass/Vol] 272 mg/dL Abnormal 65-99 [facility] Internal Medicine Work Phone: Comment on above: PATIENT NOT FASTINGP ERFORMED BY: CB [facility] Ghetod6813 So [facility] [id number] Potassium [Moles/Vol] 4.6 mmol/L Normal 3.5-5.2 [facility] Internal Medicine Work Phone: Comment on above: PATIENT NOT FASTINGP ERFORMED BY: CB [facility] Aetnzp1099 So RoadD[address] [place] [id number] Protein [Mass/Vol] 6.9 g/dL Normal 6.0-8.5 [facility] Internal Medicine Work Phone: Comment on above: PATIENT NOT FASTINGP ERFORMED BY: CB [facility] Hcphse7241 So RoadD[address] [place] [id number] Sodium [Moles/Vol] 144 mmol/L Normal 134-144 [facility] Internal Medicine Work Phone: Comment on above: PATIENT NOT FASTINGP ERFORMED BY: CB [facility] Uvqqku9409 So RoadD[address] [place] [id number] Urea nitrogen [Mass/Vol] 31 mg/dL Abnormal 07-12 [facility] Work Phone: Comment on above: PATIENT NOT FASTINGP ERFORMED BY: CB [facility] Rsjmxz1595 So RoadD[address] [place] [id number] Urea nitrogen/Creatinine [Mass ratio] 35 mg/mg Abnormal 11-12 [facility] Work Phone: Comment on above: PATIENT NOT FASTINGP ERFORMED BY: CB [facility] Igrjdw2991 So RoadD[address] [place] [id number] PT (PROTHROMBIN TIME) ([id number] )Ordered By: Teresita Ruiz on 07-16-2020 PT Coag (PPP) [Time] Comp [facility] Internal Medicine Work Phone: Comment on above: PERFORMED BY: CB [facility] Icbgmg4148 So Road[address] [place] [id number] PT (PROTHROMBIN TIME) ([id number] )Ordered By: Mesh Man on 07-16-2020 INR Coag (PPP) [Relative time] 2.0 {INR} Abnormal 0.8-1.2 [facility] Work Phone: Comment on above: Reference interval i s for non-anticoagulated patients. . Suggested INR therapeutic range for Vitamin K antagonist therapy: Standard Dose (moderate intensity therapeutic range): 2.0 - 3.0 Higher intensity therapeutic range 2.5 - 3.5 PATIENT NOT FASTINGP ERFORMED BY: CB [facility] Vdzhzu3793 So RoadD[address] [place] [id number] PT Coag (PPP) [Time] 19.5 {sec} Abnormal 9.1-12.0 [facility] Internal Medicine Work Phone: Comment on above: PATIENT NOT FASTINGP ERFORMED BY: [employer] Yourself[employer] Atbcoq2853 So RoadD[address] [place] [id number] PT Coag (PPP) [Time] 19.5 s Abnormal 9.1-12.0 [facility]; [facility] Work Phone: Comment on above: PATIENT NOT FASTINGP ERFORMED BY: [employer] Acnxpi7616 So RoadD[address] [place] [id number] TSH ([id number])Ordered By: Scarlet m Electric Repair Supervisor on 07-16-2020 TSH Qn 2.110 {uIU/mL} Normal 0.450-4.50 0 [facility] Work Phone: Comment on above: PATIENT NOT FASTINGP ERFORMED BY: [employer]6370 So Road[address] [place] [id number] PT (PROTHROMBIN TIME) ([id number] )Ordered By: Teresita Ruiz on 07-04-2020 PT Coag (PPP) [Time] Comp [facility] Work Phone: Comment on above: PERFORMED BY: [employer] Xougdt2576 So RoadD[address] [place] [id number] PT (PROTHROMBIN TIME) ([id number] )Ordered By: Teresita Ruiz on 06-12-2020 PT Coag (PPP) [Time] Comp [facility] Work Phone: Comment on above: PERFORMED BY: [employer] Hgdyoq8366 So RoadD[address] [place] [id number] PT (PROTHROMBIN TIME) ([id number] )Ordered By: Mesh Man on 06-11-2020 INR Coag (PPP) [Relative time] 2.1 {INR} Abnormal 0.8-1.2 [facility] Work Phone: Comment on above: Reference interval i s for non-anticoagulated patients. . Suggested INR therapeutic range for Vitamin K antagonist therapy: Standard Dose (moderate intensity therapeutic range): 2.0 - 3.0 Higher intensity therapeutic range 2.5 - 3.5 PATIENT NOT FASTINGP ERFORMED BY: [employer] Vpgyeh3215 So RoadDublin [place] [id number] PT Coag (PPP) [Time] 20.7 {sec} Abnormal 9.1-12.0 [facility] Work Phone: Comment on above: PATIENT NOT FASTINGP ERFORMED BY: [employer] Vhhevx2623 So RoadD[address] [place] [id number] PT Coag (PPP) [Time] 20.7 s Abnormal 9.1-12.0 [facility]; [facility] Work Phone: Comment on above: PATIENT NOT FASTINGP ERFORMED BY: [employer] Xrnjyp1063 So RoadD[address] [place] [id number] PT (PROTHROMBIN TIME) ([id number] )Ordered By: Teresita Ruiz on 05-21-2020 PT Coag (PPP) [Time] Comp [facility] Medicine Work Phone: Comment on above: PERFORMED BY: [employer] Fzywuk3515 So RoadD[address] [place] [id number] PT (PROTHROMBIN TIME) ([id number] )Ordered By: Teresita Ruiz on 05-17-2020 PT Coag (PPP) [Time] Comp [facility] Work Phone: Comment on above: PERFORMED BY: [employer] Skfucj3006 So RoadD[address] [place] [id number] PT (PROTHROMBIN TIME) ([id number] )Ordered By: Mesh Man on 05-14-2020 INR Coag (PPP) [Relative time] 2.0 {INR} Abnormal 0.8-1.2 [facility] Work Phone: Comment on above: Reference interval i s for non-anticoagulated patients. . Suggested INR therapeutic range for Vitamin K antagonist therapy: Standard Dose (moderate intensity therapeutic range): 2.0 - 3.0 Higher intensity therapeutic range 2.5 - 3.5 PATIENT NOT FASTINGP ERFORMED BY: [employer] Wqgqnq7504 So RoadD[address] [place] [id number] PT Coag (PPP) [Time] 20.3 {sec} Abnormal 9.1-12.0 [facility] Work Phone: Comment on above: PATIENT NOT FASTINGP ERFORMED BY: RAOUL Cowan6370 So Road[address] [place] [id number] PT Coag (PPP) [Time] 20.3 s Abnormal 9.1-12.0 [facility]; [facility] Work Phone: Comment on above: PATIENT NOT FASTINGP ERFORMED BY: RAOUL Cuevalin6370 So RoadD[address] [place] [id number] PT (PROTHROMBIN TIME) ([id number] )Ordered By: Mesh Man on 04-10-2020 INR Coag (PPP) [Relative time] 2.1 {INR} Abnormal 0.8-1.2 [facility] Work Phone: Comment on above: Reference interval i s for non-anticoagulated patients. . Suggested INR therapeutic range for Vitamin K antagonist therapy: Standard Dose (moderate intensity therapeutic range): 2.0 - 3.0 Higher intensity therapeutic range 2.5 - 3.5 PATIENT NOT FASTINGP ERFORMED BY: RAOUL Cuevalin6370 So RoadD[address] [place] [id number] PT Coag (PPP) [Time] 20.9 {sec} Abnormal 9.1-12.0 [facility] Work Phone: Comment on above: PATIENT NOT FASTINGP ERFORMED BY: RAOUL Paniagua Edyomv6186 So RoadD[address] [place] [id number] PT Coag (PPP) [Time] 20.9 s Abnormal 9.1-12.0 [facility]; [facility] Work Phone: Comment on above: PATIENT NOT FASTINGP ERFORMED BY: RAOUL [facility] Nsfszt6173 So RoadD[address] [place] [id number] PT (PROTHROMBIN TIME) ([id number] )Ordered By: Mesh Man on 04-03-2020 INR Coag (PPP) [Relative time] 2.1 {INR} Abnormal 0.8-1.2 [facility] Work Phone: Comment on above: Reference interval i s for non-anticoagulated patients. . Suggested INR therapeutic range for Vitamin K antagonist therapy: Standard Dose (moderate intensity therapeutic range): 2.0 - 3.0 Higher intensity therapeutic range 2.5 - 3.5 PATIENT NOT FASTINGP ERFORMED BY: RAOUL [facility] Adrnuu3289 So RoadD[address] [place] [id number] PT Coag (PPP) [Time] 21.5 {sec} Abnormal 9.1-12.0 [facility] Work Phone: Comment on above: PATIENT NOT FASTINGP ERFORMED BY: CB [facility] Fyfixx2612 So RoadD[address] [place] [id number] PT Coag (PPP) [Time] 21.5 s Abnormal 9.1-12.0 [facility]; [facility] Work Phone: Comment on above: PATIENT NOT FASTINGP ERFORMED BY: RAOUL [facility] Jjzaon2986 So RoadD[address] [place] [id number] HGB A1C ([id number])Ordered By: S ystem Electric Repair Supervisor on 03-27-2020 HbA1c (Bld) [Mass fraction] 8.8 % Abnormal 4.8-5.6 [facility] Work Phone: Comment on above: . Prediabetes: 5.7 - 6.4 Diabetes: >6.4 Glycemic control for adults with diabetes: <7.0 PATIENT NOT FASTINGP ERFORMED BY: RAOUL [facility] Cwroli1181 So RoadD[address] [place] [id number] Metabolic Panel, Comprehensi ve ([id number])Ordered By: Mesh Man on 03-27-2020 Albumin [Mass/Vol] 4.4 g/dL Normal 3.7-4.7 [facility] Internal Medicine Work Phone: Comment on above: PATIENT NOT FASTINGP ERFORMED BY: RAOUL [facility] Zpabxx3714 So RoadD[address] [place] [id number] Albumin/Globulin [Mass ratio] 1.7 {ratio} Normal 1.2-2.2 [facility] Work Phone: Comment on above: PATIENT NOT FASTINGP ERFORMED BY: CB [facility] Ejqtkq4023 So RoadD[address] [place] [id number] ALP [Catalytic activity/Vol] 134 [iU]/L Abnormal 39-117 [facility] Work Phone: Comment on above: PATIENT NOT FASTINGP ERFORMED BY: CB [facility] Mppfgp8700 So RoadD[address] [place] [id number] ALP [Catalytic activity/Vol] 134 U/L Abnormal 39-117 [facility]; [facility] Work Phone: Comment on above: PATIENT NOT FASTINGP ERFORMED BY: CB [facility] Mskfyt2778 So RoadD[address] [place] [id number] ALT [Catalytic activity/Vol] 22 [iU]/L Normal 0-32 [facility] Work Phone: Comment on above: PATIENT NOT FASTINGP ERFORMED BY: CB [facility] Pktbgr1678 So RoadD[address] [place] [id number] ALT [Catalytic activity/Vol] 22 U/L Normal 0-32 [facility]; [facility] Work Phone: Comment on above: PATIENT NOT FASTINGP ERFORMED BY: [facility] Ynarms2884 So RoadD[address] [place] [id number] AST [Catalytic activity/Vol] 24 [iU]/L Normal 0-40 [facility] Work Phone: Comment on above: PATIENT NOT FASTINGP ERFORMED BY: [facility] Saixdl3718 So RoadD[address] [place] [id number] AST [Catalytic activity/Vol] 24 U/L Normal 0-40 [facility]; [facility] Work Phone: Comment on above: PATIENT NOT FASTINGP ERFORMED BY: CB [facility] Uckhwb7460 So RoadD[address] [place] [id number] Bilirubin [Mass/Vol] 1.0 mg/dL Normal 0.0-1.2 Comp [facility] Work Phone: Comment on above: PATIENT NOT FASTINGP ERFORMED BY: CB [facility] Gnryul0413 So RoadD[address] [place] [id number] Calcium [Mass/Vol] 9.5 mg/dL Normal 8.7-10.3 Compre hensive Internal Medicine Work Phone: Comment on above: PATIENT NOT FASTINGP ERFORMED BY: RAOUL [facility] Irfpbl0200 So RoadD[address] [place] [id number] Chloride [Moles/Vol] 100 mmol/L Normal 96-106 [facility] rehens[facility] Medicine Work Phone: Comment on above: PATIENT NOT FASTINGP ERFORMED BY: CB [facility] Zbsaut3415 So RoadD[address] [place] [id number] CO2 [Moles/Vol] 25 mmol/L Normal 20-29 [facility] Internal Medicine Work Phone: Comment on above: PATIENT NOT FASTINGP ERFORMED BY: CB [facility] Amzdry9016 So RoadD[address] [place] [id number] Creatinine [Mass/Vol] 0.82 mg/dL Normal 0.57-1.00 [facility] Internal Medicine Work Phone: Comment on above: PATIENT NOT FASTINGP ERFORMED BY: CB [facility] Xyzxtj4285 So RoadD[address] [place] [id number] GFR/1.73 sq M predicted among blacks CKD-EPI (S/P/Bld) [Vol rate/Area] 79 mL/min/1.73 Normal [facility] Work Phone: Comment on above: PATIENT NOT FASTINGP ERFORMED BY: CB [facility] Whsvbe1860 So RoadD[address] [place] [id number] GFR/1.73 sq M predicted among non-blacks CKD-EPI (S/P/Bld) [Vol rate/Area] 69 mL/min/1.73 Normal [facility] Work Phone: Comment on above: PATIENT NOT FASTINGP ERFORMED BY: CB [facility] Mxgxjh2546 So RoadD[address] [place] [id number] Globulin (S) [Mass/Vol] 2.6 g/dL Normal 1.5-4.5 [facility] Work Phone: Comment on above: PATIENT NOT FASTINGP ERFORMED BY: CB [facility] Zxgfue2984 So RoadD[address] [place] [id number] Glucose [Mass/Vol] 197 mg/dL Abnormal 65-99 [facility] Internal Medicine Work Phone: Comment on above: PATIENT NOT FASTINGP ERFORMED BY: CB [facility] Skyuxb9430 So RoadD[address] [place] [id number] Potassium [Moles/Vol] 4.2 mmol/L Normal 3.5-5.2 [facility] Internal Medicine Work Phone: Comment on above: PATIENT NOT FASTINGP ERFORMED BY: CB [facility] Joznrs9953 So RoadD[address] [place] [id number] Protein [Mass/Vol] 7.0 g/dL Normal 6.0-8.5 [facility] Internal Medicine Work Phone: Comment on above: PATIENT NOT FASTINGP ERFORMED BY: CB [facility] Tpwqec8430 So RoadD[address] [place] [id number] Sodium [Moles/Vol] 141 mmol/L Normal 134-144 [facility] Internal Medicine Work Phone: Comment on above: PATIENT NOT FASTINGP ERFORMED BY: CB [facility] Ejmpky8260 So RoadD[address] [place] [id number] Urea nitrogen [Mass/Vol] 28 mg/dL Abnormal 8- [facility] Internal Medicine Work Phone: Comment on above: PATIENT NOT FASTINGP ERFORMED BY: CB [facility] Xmeoxo0410 [address] RoadD[address] [place] [id number] Urea nitrogen/Creatinine [Mass ratio] 34 mg/mg Abnormal 12 [facility] Internal Medicine Work Phone: Comment on above: PATIENT NOT FASTINGP ERFORMED BY: CB [facility] Xxlpub9098 So Roadbl[address] [place] [id number] PT (PROTHROMBIN TIME) ([id number] )Ordered By: Mesh Man on 03-27-2020 INR Coag (PPP) [Relative time] 1.8 {INR} Abnormal 0.8-1.2 [facility] Internal Medicine Work Phone: Comment on above: Reference interval i s for non-anticoagulated patients. . Suggested INR therapeutic range for Vitamin K antagonist therapy: Standard Dose (moderate intensity therapeutic range): 2.0 - 3.0 Higher intensity therapeutic range 2.5 - 3.5 PATIENT NOT FASTINGP ERFORMED BY: RAOUL [facility] Khhhth8560 So RoadD[address] [place] [id number] PT Coag (PPP) [Time] 18.5 {sec} Abnormal 9.1-12.0 [facility] Medicine Work Phone: Comment on above: PATIENT NOT FASTINGP ERFORMED BY: CB [facility] Xviypa0170 [address] RoadD[address] [place] [id number] PT Coag (PPP) [Time] 18.5 s Abnormal 9.1-12.0 Comp re[facility] Medicine; [facility] Work Phone: Comment on above: PATIENT NOT FASTINGP ERFORMED BY: RAOUL [facility] Kjgsfr3960 So RoadD[address] [place] [id number] PT (PROTHROMBIN TIME) ([id number] )Ordered By: Mesh Man on 03-20-2020 INR Coag (PPP) [Relative time] 1.6 {INR} Abnormal 0.8-1.2 [facility] Work Phone: Comment on above: Reference interval i s for non-anticoagulated patients. . Suggested INR therapeutic range for Vitamin K antagonist therapy: Standard Dose (moderate intensity therapeutic range): 2.0 - 3.0 Higher intensity therapeutic range 2.5 - 3.5 PATIENT NOT FASTINGP ERFORMED BY: RAOUL [facility] Zqhqqg4240 So RoadD[address] [place] [id number] PT Coag (PPP) [Time] 15.9 {sec} Abnormal 9.1-12.0 [facility] Work Phone: Comment on above: PATIENT NOT FASTINGP ERFORMED BY: CB [facility] Dxbkdf5474 So RoadD[address] [place] [id number] PT Coag (PPP) [Time] 15.9 s Abnormal 9.1-12.0 Comp rehensive [facility] Medicine; [facility] Work Phone: Comment on above: PATIENT NOT FASTINGP ERFORMED BY: CB [facility] Scunzp3740 So RoadD[address] [place] [id number] PT (PROTHROMBIN TIME) ([id number] )Ordered By: Mesh Man on 03-13-2020 INR Coag (PPP) [Relative time] 2.0 {INR} Abnormal 0.8-1.2 [facility] Work Phone: Comment on above: Reference interval i s for non-anticoagulated patients. . Suggested INR therapeutic range for Vitamin K antagonist therapy: Standard Dose (moderate intensity therapeutic range): 2.0 - 3.0 Higher intensity therapeutic range 2.5 - 3.5 PATIENT NOT FASTINGP ERFORMED BY: CB [facility] Smgpsa2891 [address] RoadD[address] [place] [id number] PT Coag (PPP) [Time] 20.3 {sec} Abnormal 9.1-12.0 Comp rehens[facility] Medicine Work Phone: Comment on above: PATIENT NOT FASTINGP ERFORMED BY: RAOUL [facility] Fxkocz2526 So RoadD[address] [place] [id number] PT Coag (PPP) [Time] 20.3 s Abnormal 9.1-12.0 Comp rehens[facility] Medicine; [facility] Work Phone: Comment on above: PATIENT NOT FASTINGP ERFORMED BY: RAOUL [facility] Yughat8638 So RoadD[address] [place] [id number] PT (PROTHROMBIN TIME) ([id number] )Ordered By: Mesh Man on 03-06-2020 INR Coag (PPP) [Relative time] 1.8 {INR} Abnormal 0.8-1.2 [facility] Work Phone: Comment on above: Reference interval i s for non-anticoagulated patients. . Suggested INR therapeutic range for Vitamin K antagonist therapy: Standard Dose (moderate intensity therapeutic range): 2.0 - 3.0 Higher intensity therapeutic range 2.5 - 3.5 PATIENT NOT FASTINGP ERFORMED BY: CB [facility] Crsdnu5200 So RoadD[address] [place] [id number] PT Coag (PPP) [Time] 17.9 {sec} Abnormal 9.1-12.0 Comp rehensive Internal Medicine Work Phone: Comment on above: PATIENT NOT FASTINGP ERFORMED BY: CB [facility] Ggrisw7277 So RoadD[address] [place] [id number] PT Coag (PPP) [Time] 17.9 s Abnormal 9.1-12.0 [facility] rehensive Internal Medicine; [facility] Work Phone: Comment on above: PATIENT NOT FASTINGP ERFORMED BY: RAOUL Cowan6370 So [facility] [place] [id number] PT (PROTHROMBIN TIME) ([id number] )Ordered By: Mesh Man on 02-28-2020 INR Coag (PPP) [Relative time] 1.5 {INR} Abnormal 0.8-1.2 [facility] Work Phone: Comment on above: Reference interval i s for non-anticoagulated patients. . Suggested INR therapeutic range for Vitamin K antagonist therapy: Standard Dose (moderate intensity therapeutic range): 2.0 - 3.0 Higher intensity therapeutic range 2.5 - 3.5 PATIENT NOT FASTINGP ERFORMED BY: RAOUL Cowan6370 So [facility] [id number] PT Coag (PPP) [Time] 15.5 {sec} Abnormal 9.1-12.0 [facility] Work Phone: Comment on above: PATIENT NOT FASTINGP ERFORMED BY: RAOUL Cowan6370 So [facility]At[facility] Cityin [place] [id number] PT Coag (PPP) [Time] 15.5 s Abnormal 9.1-12.0 [facility]; [facility] Internal Medicine Work Phone: Comment on above: PATIENT NOT FASTINGP ERFORMED BY: RAOUL Paniagua Lcwmtw4826 So [facility] [place] [id number] PT (PROTHROMBIN TIME) ([id number] )Ordered By: Mesh Man on 02-21-2020 INR Coag (PPP) [Relative time] 2.0 {INR} Abnormal 0.8-1.2 [facility] Work Phone: Comment on above: Reference interval i s for non-anticoagulated patients. . Suggested INR therapeutic range for Vitamin K antagonist therapy: Standard Dose (moderate intensity therapeutic range): 2.0 - 3.0 Higher intensity therapeutic range 2.5 - 3.5 PATIENT NOT FASTINGP ERFORMED BY: RAOUL [facility]6370 So [facility] [id number] PT Coag (PPP) [Time] 19.7 {sec} Abnormal 9.1-12.0 [facility] Work Phone: Comment on above: PATIENT NOT FASTINGP ERFORMED BY: RAOUL [facility] Ixyerz9246 So [facility] [place] [id number] PT Coag (PPP) [Time] 19.7 s Abnormal 9.1-12.0 Comp rehensive Internal Medicine; [facility] Work Phone: Comment on above: PATIENT NOT FASTINGP ERFORMED BY: [place] 1381670 So [facility] [id number] PT (PROTHROMBIN TIME) ([id number] )Ordered By: Mesh Man on 02-15-2020 INR Coag (PPP) [Relative time] 1.7 {INR} Abnormal 0.8-1.2 [facility] Internal Medicine Work Phone: Comment on above: Reference interval i s for non-anticoagulated patients. . Suggested INR therapeutic range for Vitamin K antagonist therapy: Standard Dose (moderate intensity therapeutic range): 2.0 - 3.0 Higher intensity therapeutic range 2.5 - 3.5 PATIENT NOT FASTINGP ERFORMED BY: [facility] Ffhuza3243 So [facility] [id number] PT Coag (PPP) [Time] 16.9 {sec} Abnormal 9.1-12.0 [facility] Work Phone: Comment on above: PATIENT NOT FASTINGP ERFORMED BY: [facility]6370 So [facility] [id number] PT Coag (PPP) [Time] 16.9 s Abnormal 9.1-12.0 Comp rehensive Internal Medicine; [facility] Work Phone: Comment on above: PATIENT NOT FASTINGP ERFORMED BY: [facility]6370 So [facility] [place] [id number] PT (PROTHROMBIN TIME) ([id number] )Ordered By: Mesh Man on 02-06-2020 INR Coag (PPP) [Relative time] 1.4 {INR} Abnormal 0.8-1.2 [facility] Work Phone: Comment on above: Reference interval i s for non-anticoagulated patients. . Suggested INR therapeutic range for Vitamin K antagonist therapy: Standard Dose (moderate intensity therapeutic range): 2.0 - 3.0 Higher intensity therapeutic range 2.5 - 3.5 PATIENT NOT FASTINGP ERFORMED BY: CB [facility] Ffcdgk8491 [address] RoadD[address] [place] [id number] PT Coag (PPP) [Time] 14.0 {sec} Abnormal 9.1-12.0 Comp rehensive Internal Medicine Work Phone: Comment on above: PATIENT NOT FASTINGP ERFORMED BY: CB [facility] Zfdvfq6874 So RoadD[address] [place] [id number] PT Coag (PPP) [Time] 14.0 s Abnormal 9.1-12.0 Comp rehensive Internal Medicine; [facility] Work Phone: Comment on above: PATIENT NOT FASTINGP ERFORMED BY: CB [facility] Sysgpb4389 So RoadD[address] [place] [id number] PT (PROTHROMBIN TIME) ([id number] )Ordered By: Mesh Man on 01-31-2020 INR Coag (PPP) [Relative time] 2.0 {INR} Abnormal 0.8-1.2 [facility] Work Phone: Comment on above: Reference interval i s for non-anticoagulated patients. . Suggested INR therapeutic range for Vitamin K antagonist therapy: Standard Dose (moderate intensity therapeutic range): 2.0 - 3.0 Higher intensity therapeutic range 2.5 - 3.5 PATIENT NOT FASTINGP ERFORMED BY: CB [facility] Njdphd9282 [address] RoadD[address] [place] [id number] PT Coag (PPP) [Time] 19.7 {sec} Abnormal 9.1-12.0 Comp rehensive Internal Medicine Work Phone: Comment on above: PATIENT NOT FASTINGP ERFORMED BY: CB [facility] Antepw8817 So RoadD[address] [place] [id number] PT Coag (PPP) [Time] 19.7 s Abnormal 9.1-12.0 Comp rehensive Internal Medicine; [facility] Work Phone: Comment on above: PATIENT NOT FASTINGP ERFORMED BY: RAOUL [facility] Jjhjfv6192 [address] RoadD[address] [place] [id number] PT (PROTHROMBIN TIME) ([id number] )Ordered By: Mesh Man on 01-17-2020 INR Coag (PPP) [Relative time] 1.6 {INR} Abnormal 0.8-1.2 [facility] Work Phone: Comment on above: Reference interval i s for non-anticoagulated patients. . Suggested INR therapeutic range for Vitamin K antagonist therapy: Standard Dose (moderate intensity therapeutic range): 2.0 - 3.0 Higher intensity therapeutic range 2.5 - 3.5 PATIENT NOT FASTINGP ERFORMED BY: RAOUL [facility] Axxulp2460 So RoadD[address] [place] [id number] PT Coag (PPP) [Time] 16.4 {sec} Abnormal 9.1-12.0 [facility] Internal Medicine Work Phone: Comment on above: PATIENT NOT FASTINGP ERFORMED BY: RAOUL [facility] Xshilr8971 So RoadD[address] [place] [id number] PT Coag (PPP) [Time] 16.4 s Abnormal 9.1-12.0 [facility] Internal Medicine; [facility] Work Phone: Comment on above: PATIENT NOT FASTINGP ERFORMED BY: RAOUL [facility] Uumqjd9391 [address] [place] [id number] PT (PROTHROMBIN TIME) ([id number] )Ordered By: Mesh Man on 01-09-2020 INR Coag (PPP) [Relative time] 1.4 {INR} Abnormal 0.8-1.2 [facility] Work Phone: Comment on above: Reference interval i s for non-anticoagulated patients. . Suggested INR therapeutic range for Vitamin K antagonist therapy: Standard Dose (moderate intensity therapeutic range): 2.0 - 3.0 Higher intensity therapeutic range 2.5 - 3.5 PATIENT NOT FASTINGP ERFORMED BY: CB [facility] Dcukza7657 So RoadD[address] [place] [id number] PT Coag (PPP) [Time] 14.6 {sec} Abnormal 9.1-12.0 [facility] Work Phone: Comment on above: PATIENT NOT FASTINGP ERFORMED BY: RAOUL [facility]Co Skrcmj4283 [facility] [id number] PT Coag (PPP) [Time] 14.6 s Abnormal 9.1-12.0 [facility]; [facility] Work Phone: Comment on above: PATIENT NOT FASTINGP ERFORMED BY: [facility] Vakzuk1327 [facility] [id number] CALCIFEDIOL ([id number])Ordered B y: Mesh Man on 01-04-2020 25-Hydroxyvitamin D2+25-Hydroxyvitamin D3 [Mass/Vol] 38.5 ng/mL Normal 30.0-100.0 [facility] Work Phone: Comment on above: Vitamin D deficiency has been defined by the [place] [facility] and an Endocrine Society practice guideline as alevel of serum 25-OH vitamin D less than 20 ng/mL (1,2).The Endocrine Society went on to further define vitamin Dinsufficiency as a level between 21 and 29 ng/mL (2).1. IOM ([place] of Medicine). 2010. Dietary reference intakes for calcium and D. [place]: The National Academies Press.2. Joe MF, Norma NC, Rhonda LOCKHART, et al. Evaluation, treatment, and prevention of vitamin D deficiency: an Endocrine Society clinical practice guideline. JCEM. 2010; 96(7):1911-30. PATIENT NOT FASTINGP ERFORMED BY: [facility] Rwmqwj6052 [facility] [id number] MAGNESIUM ([id number])Ordered By: Mesh Man on 01-04-2020 Magnesium [Mass/Vol] 1.7 mg/dL Normal 1.6-2.3 [facility] Work Phone: Comment on above: PATIENT NOT FASTINGP ERFORMED BY: [facility] Utmdvb0352 So [facility] [place] [id number] Metabolic Panel, Comprehensi ve ([id number])Ordered By: Mesh Man on 01-04-2020 Albumin [Mass/Vol] 4.3 g/dL Normal 3.7-4.7 [facility] Internal Medicine Work Phone: Comment on above: Please note refere nce interval change PATIENT NOT FASTINGP ERFORMED BY: CB [facility] Otoxif1860 So RoadDublin [place] [id number] Albumin/Globulin [Mass ratio] 1.9 {ratio} Normal 1.2-2.2 [facility] Work Phone: Comment on above: PATIENT NOT FASTINGP ERFORMED BY: CB [facility] Mlhmoj3181 So RoadDublin [place] [id number] ALP [Catalytic activity/Vol] 141 [iU]/L Abnormal 39-117 [facility] Work Phone: Comment on above: PATIENT NOT FASTINGP ERFORMED BY: CB [facility] Phoocv5265 So RoadDublin [place] [id number] ALP [Catalytic activity/Vol] 141 U/L Abnormal 39-117 [facility]; [facility] Work Phone: Comment on above: PATIENT NOT FASTINGP ERFORMED BY: CB [facility] Jihekw4498 So RoadDublin [place] [id number] ALT [Catalytic activity/Vol] 17 [iU]/L Normal 0-32 [facility] Work Phone: Comment on above: PATIENT NOT FASTINGP ERFORMED BY: CB [facility] Cpiwis4568 So RoadDublin [place] [id number] ALT [Catalytic activity/Vol] 17 U/L Normal 0-32 [facility]; [facility] Work Phone: Comment on above: PATIENT NOT FASTINGP ERFORMED BY: CB [facility] Qvxvni5470 So RoadDublin [place] [id number] AST [Catalytic activity/Vol] 17 [iU]/L Normal 0-40 [facility] Work Phone: Comment on above: PATIENT NOT FASTINGP ERFORMED BY: CB [facility] Pkhknz0704 So RoadDublin [place] [id number] AST [Catalytic activity/Vol] 17 U/L Normal 0-40 [facility]; [facility] Work Phone: Comment on above: PATIENT NOT FASTINGP ERFORMED BY: CB [facility] Ghptdx8005 So RoadDublin [place] [id number] Bilirubin [Mass/Vol] 1.0 mg/dL Normal 0.0-1.2 [facility] Work Phone: Comment on above: PATIENT NOT FASTINGP ERFORMED BY: CB [facility] Gdzobx5515 So RoadDublin [place] [id number] Calcium [Mass/Vol] 9.8 mg/dL Normal 8.7-10.3 [facility] Internal Medicine Work Phone: Comment on above: PATIENT NOT FASTINGP ERFORMED BY: CB [facility] Humtig3880 So RoadDublin [place] [id number] Chloride [Moles/Vol] 97 mmol/L Normal 96-106 [facility] Work Phone: Comment on above: PATIENT NOT FASTINGP ERFORMED BY: CB [facility] Pszeqb2200 So RoadDublin [place] [id number] CO2 [Moles/Vol] 21 mmol/L Normal 20-29 [facility] Internal Medicine Work Phone: Comment on above: PATIENT NOT FASTINGP ERFORMED BY: CB [facility] Ybojor6866 So RoadDublin [place] [id number] Creatinine [Mass/Vol] 0.95 mg/dL Normal 0.57-1.00 [facility] Work Phone: Comment on above: PATIENT NOT FASTINGP ERFORMED BY: CB [facility] Tftmyg3286 So RoadDublin [place] [id number] GFR/1.73 sq M predicted among blacks CKD-EPI (S/P/Bld) [Vol rate/Area] 66 mL/min/1.73 Normal [facility] Work Phone: Comment on above: PATIENT NOT FASTINGP ERFORMED BY: CB [facility] Vywshw3549 So RoadDublin [place] [id number] GFR/1.73 sq M predicted among non-blacks CKD-EPI (S/P/Bld) [Vol rate/Area] 58 mL/min/1.73 Abnormal [facility] Work Phone: Comment on above: PATIENT NOT FASTINGP ERFORMED BY: CB [facility] Ehypqb8918 So RoadDublin [place] [id number] Globulin (S) [Mass/Vol] 2.3 g/dL Normal 1.5-4.5 [facility] Internal Medicine Work Phone: Comment on above: PATIENT NOT FASTINGP ERFORMED BY: CB [facility] Tmocuy0217 So RoadDublin [place] [id number] Glucose [Mass/Vol] 283 mg/dL Abnormal 65-99 [facility] Internal Medicine Work Phone: Comment on above: PATIENT NOT FASTINGP ERFORMED BY: CB [facility] Ylzgol6273 So RoadDublin [place] [id number] Potassium [Moles/Vol] 4.3 mmol/L Normal 3.5-5.2 [facility] Internal Medicine Work Phone: Comment on above: PATIENT NOT FASTINGP ERFORMED BY: CB [facility] Ymgurj5191 [address] RoadDublin [place] [id number] Protein [Mass/Vol] 6.6 g/dL Normal 6.0-8.5 [facility] Internal Medicine Work Phone: Comment on above: PATIENT NOT FASTINGP ERFORMED BY: CB [facility] Gygbqs5418 So RoadDublin [place] [id number] Sodium [Moles/Vol] 132 mmol/L Abnormal 134-144 [facility] Internal Medicine Work Phone: Comment on above: PATIENT NOT FASTINGP ERFORMED BY: CB [facility] Lfrfmn9883 So RoadDublin [place] [id number] Urea nitrogen [Mass/Vol] 30 mg/dL Abnormal 8- [facility] Internal Medicine Work Phone: Comment on above: PATIENT NOT FASTINGP ERFORMED BY: CB [facility] Qbcmoy4656 So RoadDublin [place] [id number] Urea nitrogen/Creatinine [Mass ratio] 32 mg/mg Abnormal 12-28 [facility] Work Phone: Comment on above: PATIENT NOT FASTINGP ERFORMED BY: RAOUL [facility] Phfipi9353 So RoadDublin [place] [id number] PT (PROTHROMBIN TIME) ([id number] )Ordered By: Mesh Man on 01-04-2020 INR Coag (PPP) [Relative time] 1.4 {INR} Abnormal 0.8-1.2 [facility] Work Phone: Comment on above: Reference interval i s for non-anticoagulated patients. . Suggested INR therapeutic range for Vitamin K antagonist therapy: Standard Dose (moderate intensity therapeutic range): 2.0 - 3.0 Higher intensity therapeutic range 2.5 - 3.5 PATIENT NOT FASTINGP ERFORMED BY: RAOUL [facility] Wtwsas7874 So RoadDublin [place] [id number] PT Coag (PPP) [Time] 14.0 {sec} Abnormal 9.1-12.0 [facility] Work Phone: Comment on above: PATIENT NOT FASTINGP ERFORMED BY: RAOUL [facility] Ntvmap8382 So RoadDublin [place] [id number] PT Coag (PPP) [Time] 14.0 s Abnormal 9.1-12.0 [facility]; [facility] Work Phone: Comment on above: PATIENT NOT FASTINGP ERFORMED BY: RAOUL [facility] Aievng9553 So Roadbl[address] [place] [id number] TSH (THYROID STIMULATING HOR GIOVANNA) (63097)Ordered By: Mesh Man on 01-04-2020 TSH Qn 4.220 {uIU/mL} Normal 0.450-4.50 0 [facility] Work Phone: Comment on above: PATIENT NOT FASTINGP ERFORMED BY: RAOUL [facility] Metqzh1058 So [facility]in [place] [id number] Blood Glucose , Office ([phone])Ordered By: Madison Greer on 12-27-2019 Glucose Glucometer (BldC) [Moles/Vol] 468 1 Normal [facility] Work Phone: HgA1C , Office ([phone])Ordere d By: Madison Greer on 12-27-2019 HbA1c (Bld) [Mass fraction] 14.1 % Abnormal 4.6 - 7.1 [facility] Work Phone: Office Visiton 10-02-2017 Dietary management education, guidance, and counseling (procedure) yes Invalid Interpretation Code [facility] Work Phone: Documentation of current medications (procedure) Done Invalid Interpretation Code [facility] Work Phone: Office Visit: [facility] 03-27-20 Fall risk assessment No Invalid Interpretation Code [facility] Work Phone: Office Visiton 09-25-2016 Tobacco use CPHS Never smoker Invalid Interpretation Code [facility] Work Phone: Lab Report: Vitamin D,25 Hyd roxyon 04-16-2016 Vitamin D 25-OH 88.7 ng/mL Invalid Interpretation Code [facility] Work Phone: Lab Report: CBC W/Diff, Auto matedon 04-15-2016 Absolute Neut 5.8 X10 3/UL Invalid Interpretation Code 2.0-7.7 [facility] Work Phone: Basophils/100 WBC Auto (Bld) 0.3 % Invalid Interpretation Code 0-1 [facility] Work Phone: Eosinophils/100 leukocytes 3.0 % Invalid Interpretation Code 0-5 [facility] Work Phone: Erythrocyte distribution width Auto Ratio (RBC) 14.4 % Invalid Interpretation Code 11.6-14.6 [facility] Work Phone: Erythrocytes (RBC) 4.64 10*6/uL Invalid Interpretation Code 4.2-5.4 [facility] Work Phone: Hematocrit (HCT) 39.8 % Invalid Interpretation Code 37-47 [facility] Work Phone: Hemoglobin mass conc (Bld) 13.4 g/dL Invalid Interpretation Code 12.0-15.0 [facility] Work Phone: Immature granulocytes/100 WBC (Bld) 0.400 % Invalid Interpretation Code 0.0-0.9 [facility] Work Phone: Lymphocytes 2.41 X10 3/UL Invalid Interpretation Code 0.83-4.51 [facility] Work Phone: Lymphocytes/100 leukocytes 25.7 % Invalid Interpretation Code 19-41 [facility] Work Phone: MCH 28.9 pg Invalid Interpretation Code 27.0-32.0 [facility] Work Phone: MCHC mass conc (RBC) 33.7 G/GL Invalid Interpretation Code 32-36 [facility] Work Phone: MCV 85.8 fL Invalid Interpretation Code 81-99 [facility] Work Phone: Monocytes/100 leukocytes 8.7 % Invalid Interpretation Code 0-10 [facility] Work Phone: Neutrophils/100 WBC Auto (Bld) 61.9 % Invalid Interpretation Code 47-70 [facility] Work Phone: Platelets 172 10*3/mm3 Invalid Interpretation Code 150-450 [facility] Work Phone: PMV by Aleida 12.0 fL Invalid Interpretation Code 6.2-12.0 [facility] Work Phone: RDW SD 44.5 fL High 35.1-43.9 [facility] Work Phone: WBC (Leukocytes) 9.4 10*3/uL Invalid Interpretation Code 4.4-11.0 [facility] Work Phone: Lab Report: Comprehensive [facility] Profilon 04-15-2016 Alanine aminotransferase (ALT) 37 U/L Invalid Interpretation Code 12-78 [facility] Work Phone: Albumin 3.7 g/dL Invalid Interpretation Code 3.4-5.0 [facility] Work Phone: Albumin/Globulin Ratio 0.9 {ratio} Invalid Interpretation Code 0.9-2.4 [facility] Work Phone: Alkaline phosphatase (ALP) 107 U/L Invalid Interpretation Code 50-136 [facility] Work Phone: Anion gap 13 mmol/L Invalid Interpretation Code 5-15 [facility] Work Phone: Aspartate aminotransferase (AST) 23 U/L Invalid Interpretation Code 15-37 [facility] Work Phone: Bilirubin (total) 1.00 mg/dL Invalid Interpretation Code 0.20-1.00 [facility] Work Phone: BUN/Creatinine Ratio 29.6 RATIO High 10-[address] [facility] [address] [facility] Work Phone: Calcium 9.5 mg/dL Invalid Interpretation Code 8.5-10.1 [facility] Work Phone: Chloride 107 mmol/L Invalid Interpretation Code 98-107 [facility] Work Phone: CO2 22.0 mmol/L Invalid Interpretation Code 21.0-32.0 [facility] Work Phone: Creatinine 1.15 mg/dL Invalid Interpretation Code 0.55-1.20 [facility] Work Phone: eGFR (non-black) 59 mL/min/{1.73_m2} Low >60 [facility] Work Phone: eGFR (non-black) 49 mL/min/{1.73_m2} Low >60 [facility] Work Phone: Globulin 4.0 g/dL High 2.3-3.5 [facility] Work Phone: Glucose mass conc 263 mg/dL High 70-110 [facility] Work Phone: Potassium molar conc 3.7 mmol/L Invalid Interpretation Code 3.5-5.1 [facility] Work Phone: Protein 7.7 g/dL Invalid Interpretation Code 6.4-8.2 [facility] Work Phone: Sodium 142 mmol/L Invalid Interpretation Code 136-145 [facility] Work Phone: Urea nitrogen 34 mg/dL High 7-18 [facility] Work Phone: Lab Report: Lipid Profileon 04-15-2016 Cholesterol 111 mg/dL Invalid Interpretation Code 200 [facility] Work Phone: HDL Cholesterol 37 mg/dL Low [facility] Work Phone: LDL Cholesterol 35 mg/dL Invalid Interpretation Code 0-130 [facility] Work Phone: Triglyceride 195 mg/dL Invalid Interpretation Code [facility] Work Phone: very low density lipoproteins 39 mg/dL Invalid Interpretation Code 5-40 [facility] Work Phone: Lab Report: Magnesiumon 05-3 Magnesium 1.3 mg/dL Low 1.8-2.4 [facility] Work Phone: Lab Report: Thyroid Stim Hor giovanna (TSH)on 04-15-2016 Thyroid stimulating hormone (TSH) 3.20 u[iU]/mL Invalid Interpretation Code 0.358-3.74 [facility] Work Phone: Replaced Document: Elodia Maheron 03-18-2016 EKG QRS axis -29 deg Invalid Interpretation Code [facility] Work Phone: Interpretation Sinus Rhythm Voltage criteria for LVH (R(I)+S(III) exceeds 2.50 mV) -Voltage criteria w/o ST/T abnormality may be normal. BORDERLINE Invalid Interpretation Code [facility] Work Phone: P [place] 42 deg Invalid Interpretation Code [facility] Work Phone: IN Interval 160 ms Invalid Interpretation Code [facility] Work Phone: Pulse (Heart Rate) 63 /min Invalid Interpretation Code [facility] Work Phone: QRS Duration 98 ms Invalid Interpretation Code [facility] Work Phone: QT Interval new path ms Invalid Interpretation Code [facility] Work Phone: QTc Whitley 443 ms Invalid Interpretation Code [facility] Work Phone: T Florence 21 deg Invalid Interpretation Code [facility] Work Phone: Clinical Lists Update: 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 Left ventricular Ejection fraction 60 % Invalid Interpretation Code [facility] Work Phone: Office Visiton 01-31-2015 cardiac risk group C Invalid Interpretation Code [facility] Work Phone: General cardiovascular disease 10Y risk [#] Arco.D'Agoino N/A Invalid Interpretation Code [facility] Work Phone: Clinical Lists Update: Pre packaging tech 12-25-2014 Albumin/Globulin Ratio 0.9 {ratio} Invalid Interpretation Code [facility] Work Phone: basophils as percent of blood leukocytes, manual count 0.5 % Invalid Interpretation Code [facility] Work Phone: eosinophils as percent of blood leukocytes, manual count 3.3 % Invalid Interpretation Code [facility] Work Phone: Globulin 4.2 g/dL Invalid Interpretation Code [facility] Work Phone: Lymphocytes 2.63 10*3/uL Invalid Interpretation Code [facility] Work Phone: Neutrophils 5.2 10*3/uL Invalid Interpretation Code [facility] Work Phone: neutrophils, band form as percent of blood leukocytes, manual count 56.8 % Invalid Interpretation Code [facility] Work Phone: Clinical Lists Update: Pre packaging tech 07-27-2014 Lipase 4184 [iU]/L High [facility] Work Phone: Lab Report: Ordered by Dr. Marge quevedo 01-02-2014 Cholesterol to HDL Ratio 4.4 {ratio} Invalid Interpretation Code [facility] Work Phone: Lab Report: LIVERon 01-29-20 13 Bilirubin (direct) 0.21 mg/dL Normal 0.00-0.30 [facility] Work Phone: Blood Glucose , Office ([phone] 2)Ordered By: Poonam Mae on 06-14-2010 Glucose Glucometer (BldC) [Moles/Vol] 263 1 Normal [facility] Work Phone: HgA1C , Office (58539)Ordere d By: Poonam Mae on 06-14-2010 HbA1c (Bld) [Mass fraction] 11.0 % Abnormal 4.6 - 7.1 [facility] Work Phone: Blood Glucose , Office (2001 2)Ordered By: Poonam Mae on 09-03-2009 Glucose Glucometer (BldC) [Moles/Vol] 138 1 Normal [facility] Work Phone: HgA1C , Office (56589)Ordere d By: Poonam Mae on 09-03-2009 HbA1c (Bld) [Mass fraction] 6.2 % Normal 4.6 - 7.1 [facility] Work Phone: TSH (75712)Ordered By: Maria Del Rosario Fast on 09-03-2009 TSH Qn 2.780 {uIU/mL} Normal 0.450-4.50 0 [facility] Work Phone: Comment on above: PATIENT NOT FASTINGC linical Information: [id number] PERFORMED BY: RAOUL LabKiko70 So [facility] [id number] HEPATIC FUNCTION PANEL (4957 6)Ordered By: Maria Del Rosario Fast on 08-22-2009 Bilirubin.direct [Mass/Vol] 0.20 mg/dL Normal 0.00-0.40 [facility] Work Phone: Comment on above: PATIENT WAS FASTINGP ERFORMED BY: RAOUL [facility] Xqiach1875 [facility] [id number] LIPID PANEL ([id number])Ordered B y: Maria Del Rosario Fast on 08-22-2009 Cholesterol [Mass/Vol] 193 mg/dL Normal 100-199 [facility] Work Phone: Comment on above: PATIENT WAS FASTINGP ERFORMED BY: RAOUL LabRace Yourselfrp Sigypu9629 [facility] [id number] Cholesterol in HDL [Mass/Vol] 46 mg/dL Normal [facility] Work Phone: Comment on above: According to ATP-III Guidelines, HDL-C >59 mg/dL is considered anegative risk factor for CHD. PATIENT WAS FASTINGP ERFORMED BY: RAOUL LabKiko70 So [facility] [id number] Cholesterol in LDL [Mass/Vol] 127 mg/dL Abnormal 0-99 [facility] Work Phone: Comment on above: PATIENT WAS FASTINGP ERFORMED BY: [facility] Tvwxuz6286 So [facility] [id number] Cholesterol in LDL/Cholesterol in HDL [Mass ratio] 2.8 {ratio_units} Normal 0.0-3.2 [facility] Work Phone: Comment on above: PATIENT WAS FASTINGP ERFORMED BY: [facility]Co Xxugpn7953 [facility] [id number] Cholesterol in VLDL [Mass/Vol] 20 mg/dL Normal 5-40 [facility] Work Phone: Comment on above: PATIENT WAS FASTINGP ERFORMED BY: [facility] Fmchae2635 [facility] [id number] Triglyceride [Mass/Vol] 100 mg/dL Normal 0-149 [facility] Work Phone: Comment on above: PATIENT WAS FASTINGP ERFORMED BY: RAOUL [facility] Xvyipn2936 [facility] [id number] METABOLIC PANEL, COMPREHENSI VE ([id number])Ordered By: Maria Del Rosario Machado on 08-22-2009 Albumin [Mass/Vol] 4.3 g/dL Normal 3.6-4.8 [facility] Internal Medicine Work Phone: Comment on above: PATIENT WAS FASTINGC linical Information: ADD [id number], [id number] PERFORMED BY: RAOUL [facility] Pugbxp5146 [facility] [id number] Albumin/Globulin [Mass ratio] 1.5 {ratio} Normal 1.1-2.5 [facility] Work Phone: Comment on above: PATIENT WAS FASTINGC linical Information: ADD [id number], [id number] PERFORMED BY: [facility] Tccbty5307 [facility] [id number] ALP [Catalytic activity/Vol] 97 [iU]/L Normal 25-165 [facility] Work Phone: Comment on above: PATIENT WAS FASTINGC linical Information: ADD [id number], [id number] PERFORMED BY: RAOUL [facility] Jxyjna4673 So RoadDublin [place] [id number] ALP [Catalytic activity/Vol] 97 U/L Normal 25-165 [facility]; [facility] Work Phone: Comment on above: PATIENT WAS FASTINGC linical Information: ADD [id number], [id number] PERFORMED BY: [facility] Btnstm0968 So [facility] [place] [id number] ALT [Catalytic activity/Vol] 44 [iU]/L Abnormal 0-40 [facility] Work Phone: Comment on above: PATIENT WAS FASTINGC linical Information: ADD [id number], [id number] PERFORMED BY: [facility] Sunnge2096 So RoadDublin [place] [id number] ALT [Catalytic activity/Vol] 44 U/L Abnormal 0-40 [facility]; [facility] Work Phone: Comment on above: PATIENT WAS FASTINGC linical Information: ADD [id number], [id number] PERFORMED BY: [facility] Vhoeef6999 So [facility] [place] [id number] AST [Catalytic activity/Vol] 35 [iU]/L Normal 0-40 [facility] Work Phone: Comment on above: PATIENT WAS FASTINGC linical Information: ADD [id number], [id number] PERFORMED BY: [facility] Ikquja8252 So [facility] [place] [id number] AST [Catalytic activity/Vol] 35 U/L Normal 0-40 [facility]; [facility] Work Phone: Comment on above: PATIENT WAS FASTINGC linical Information: ADD [id number], [id number] PERFORMED BY: [facility] Ublzat6085 So [facility] [place] [id number] Bilirubin [Mass/Vol] 0.7 mg/dL Normal 0.1-1.2 Comp [facility] Internal Medicine Work Phone: Comment on above: PATIENT WAS FASTINGC linical Information: ADD [id number], [id number] PERFORMED BY: Reactivity Jkftjr9296 [facility] [id number] Calcium [Mass/Vol] 9.9 mg/dL Normal 8.5-10.6 [facility] Internal Medicine Work Phone: Comment on above: PATIENT WAS FASTINGC linical Information: ADD [id number], [id number] PERFORMED BY: RAOUL LabCoFlyCast Lndlqu0754 [facility] [id number] Chloride [Moles/Vol] 102 mmol/L Normal 97-108 [facility] Work Phone: Comment on above: PATIENT WAS FASTINGC linical Information: ADD [id number], [id number] PERFORMED BY: LabIntertainment Media Grqkof4080 [facility] [id number] CO2 [Moles/Vol] 24 mmol/L Normal 20-32 [facility] Internal Medicine Work Phone: Comment on above: PATIENT WAS FASTINGC linical Information: ADD [id number], [id number] PERFORMED BY: Reactivity Tfpnhg5971 [facility] [id number] Creatinine [Mass/Vol] 0.67 mg/dL Normal 0.57-1.00 [facility] Internal Medicine Work Phone: Comment on above: PATIENT WAS FASTINGC linical Information: ADD [id number], [id number] PERFORMED BY: LabRace YourselfRobert Wood Johnson University Hospital at RahwayFsxxwn3627 [facility] [id number] GFR/1.73 sq M predicted among blacks MDRD [...] [email or web address]. PATIENT WAS FASTINGC linical Information: ADD [id number], [id number] PERFORMED BY: [place] [id number] [facility] [id number] GFR/1.73 sq M.predicted MDRD (S/P/Bld) [Vol rate/Area] mL/min/{1.73_m2} Normal [facility] Internal Medicine Work Phone: Comment on above: PATIENT WAS FASTINGC linical Information: ADD [id number], [id number] PERFORMED BY: [address] [id number] Globulin (S) [Mass/Vol] 2.9 g/dL Normal 1.5-4.5 [facility] Internal Medicine Work Phone: Comment on above: PATIENT WAS FASTINGC linical Information: ADD [id number], [id number] PERFORMED BY: [place] 1381670 [facility] [id number] Glucose [Mass/Vol] 150 mg/dL Abnormal 65-99 [facility] Internal Medicine Work Phone: Comment on above: PATIENT WAS FASTINGC linical Information: ADD [id number], [id number] PERFORMED BY: [place] 1381670 [facility] [id number] Potassium [Moles/Vol] 4.2 mmol/L Normal 3.5-5.2 [facility] Internal Medicine Work Phone: Comment on above: PATIENT WAS FASTINGC linical Information: ADD [id number], [id number] PERFORMED BY: LabKim Ville [id number] [facility] [id number] Protein [Mass/Vol] 7.2 g/dL Normal 6.0-8.5 [facility] Internal Medicine Work Phone: Comment on above: PATIENT WAS FASTINGC linical Information: ADD [id number], [id number] PERFORMED BY: [facility]6370 [facility] [id number] Sodium [Moles/Vol] 142 mmol/L Normal 135-145 [facility] Internal Medicine Work Phone: Comment on above: PATIENT WAS FASTINGC linical Information: ADD [id number], [id number] PERFORMED BY: [employer] Oswlyt9569 [facility]UNC [facility] [id number] Urea nitrogen [Mass/Vol] 22 mg/dL Normal 5-26 [facility] Work Phone: Comment on above: PATIENT WAS FASTINGC linical Information: ADD [id number], [id number] PERFORMED BY: [employer] Fgzbce8444 [facility] [place] [id number] Urea nitrogen/Creatinine [Mass ratio] 33 mg/mg Abnormal 8-27 [facility] Work Phone: Comment on above: PATIENT WAS FASTINGC linical Information: ADD 235877, [id number] PERFORMED BY: [employer] LabInfinisource6370 [facility]isionUNC [facility] [id number] Vitamin D Hydroxy (86004)Ord ered By: Maria Del Rosario Machado on 08-22-2009 Calcitriol [Mass/Vol] 34.5 ng/mL Normal 32.0-100.0 [facility] prehensive Internal Medicine Work Phone: Comment on above: Recent studies consi andreas the lower limit of 32.0 ng/mL to be athreshold for optimal health.Cheo MARIE. J Nutr. 2004;135(2):317-22. PATIENT WAS FASTINGP ERFORMED BY: [facility] Nuwsfa5463 So [facility] [id number] Blood Glucose , Office ([phone] 2)Ordered By: Poonam Mae on 06-04-2009 Glucose Glucometer (BldC) [Moles/Vol] 128 1 Normal [facility] Work Phone: HgA1C , Office ([phone])Ordere d By: Poonam Mae on 06-04-2009 HbA1c (Bld) [Mass fraction] 6.1 % Normal 4.6 - 7.1 [facility] Work Phone: Blood Glucose , Office ([phone])Ordered By: Poonam Mae on 03-05-2009 Glucose Glucometer (BldC) [Moles/Vol] 152 1 Normal [facility] Work Phone: HgA1C , Office ([phone])Ordere d By: Poonam Mae on 03-05-2009 HbA1c (Bld) [Mass fraction] 6.2 % Normal 4.6 - 7.1 [facility] Work Phone: HEPATIC FUNCTION PANEL ([phone])Ordered By: Maria Del Rosario Fast on 02-26-2009 Bilirubin.direct [Mass/Vol] 0.25 mg/dL Normal 0.00-0.40 [facility] Work Phone: Comment on above: PATIENT WAS FASTINGP ERFORMED BY: CB [facility] Veunqi9756 [place] [id number] LIPID PANEL (16399)Ordered B y: Maria Del Rosario Fast on 02-26-2009 Cholesterol [Mass/Vol] 161 mg/dL Normal 100-199 [facility] Work Phone: Comment on above: PATIENT WAS FASTINGP ERFORMED BY: RAOUL [facility] Axuisa1832 [place] Wind[place] [id number] Cholesterol in HDL [Mass/Vol] 44 mg/dL Normal [facility] Work Phone: Comment on above: According to ATP-III Guidelines, HDL-C >59 mg/dL is considered anegative risk factor for CHD. PATIENT WAS FASTINGP ERFORMED BY: RAOUL [facility] Jwpego6327 [place] Wind[place] [id number] Cholesterol in LDL [Mass/Vol] 89 mg/dL Normal 0-99 [facility] Work Phone: Comment on above: PATIENT WAS FASTINGP ERFORMED BY: CB [facility] Vvdtqk0408 So [facility]At[facility] Cityin [place] [id number] Cholesterol in LDL/Cholesterol in HDL [Mass ratio] 2.0 {ratio_units} Normal 0.0-3.2 [facility] Work Phone: Comment on above: PATIENT WAS FASTINGP ERFORMED BY: CB [facility] Lsdlri2029 [place] [id number] Cholesterol in VLDL [Mass/Vol] 28 mg/dL Normal 5-40 [facility] Work Phone: Comment on above: PATIENT WAS FASTINGP ERFORMED BY: CB [facility] Wrrwkb7438 So [place]bl[place] [id number] Triglyceride [Mass/Vol] 142 mg/dL Normal 0-149 [facility] Work Phone: Comment on above: PATIENT WAS FASTINGP ERFORMED BY: RAOUL [facility]6370 [facility] [id number] METABOLIC PANEL, COMPREHENSI VE (20391)Ordered By: Maria Del Rosario Machado on 02-26-2009 Albumin [Mass/Vol] 4.3 g/dL Normal 3.6-4.8 [facility] Internal Medicine Work Phone: Comment on above: PATIENT WAS FASTINGC linical Information: ADD DRAW FEE 632255 ADD J [id number] PERFORMED BY: RAOUL [facility] Ilkspu4378 [facility] [id number] Albumin/Globulin [Mass ratio] 1.4 {ratio} Normal 1.1-2.5 [facility] Work Phone: Comment on above: PATIENT WAS FASTINGC linical Information: ADD DRAW FEE 584753 ADD J 23830 PERFORMED BY: RAOUL [facility] Psibbt7311 [facility] [id number] ALP [Catalytic activity/Vol] 83 [iU]/L Normal 25-165 [facility] Work Phone: Comment on above: PATIENT WAS FASTINGC linical Information: ADD DRAW FEE 372128 ADD J [id number] PERFORMED BY: RAOUL [facility] Stkozk3781 [facility] [id number] ALP [Catalytic activity/Vol] 83 U/L Normal 25-165 [facility]; [facility] Work Phone: Comment on above: PATIENT WAS FASTINGC linical Information: ADD DRAW FEE 115882 ADD J 90595 PERFORMED BY: RAOUL [facility] Jlrjbx1710 [facility] [id number] ALT [Catalytic activity/Vol] 65 [iU]/L Abnormal 0-40 [facility] Work Phone: Comment on above: PATIENT WAS FASTINGC linical Information: ADD DRAW FEE 726062 ADD J 83548 PERFORMED BY: RAOUL [facility] Jezznf15[address] [id number] ALT [Catalytic activity/Vol] 65 U/L Abnormal 0-40 [facility]; [facility] Work Phone: Comment on above: PATIENT WAS FASTINGC linical Information: ADD DRAW FEE 894191 ADD J 41947 PERFORMED BY: [facility]6370 [facility] [id number] AST [Catalytic activity/Vol] 58 [iU]/L Abnormal 0-40 [facility] Work Phone: Comment on above: PATIENT WAS FASTINGC linical Information: ADD DRAW FEE 077638 ADD J 18943 PERFORMED BY: [place] 1381670 [facility] [id number] AST [Catalytic activity/Vol] 58 U/L Abnormal 0-40 [facility]; [facility] Work Phone: Comment on above: PATIENT WAS FASTINGC linical Information: ADD DRAW FEE 042504 ADD J PERFORMED BY: [place] 1381670 [facility] [id number] Bilirubin [Mass/Vol] 0.8 mg/dL Normal 0.1-1.2 [facility] Work Phone: Comment on above: PATIENT WAS FASTINGC linical Information: ADD DRAW FEE 202549 ADD J PERFORMED BY: [place] 1381670 [facility] [id number] Calcium [Mass/Vol] 9.8 mg/dL Normal 8.5-10.6 [facility] Internal Medicine Work Phone: Comment on above: PATIENT WAS FASTINGC linical Information: ADD DRAW FEE 928163 ADD J 03075 PERFORMED BY: LabKim [place] 9109970 [facility] [id number] Chloride [Moles/Vol] 103 mmol/L Normal 97-108 [facility] Work Phone: Comment on above: PATIENT WAS FASTINGC linical Information: ADD DRAW FEE 243802 ADD J 80976 PERFORMED BY: LabKim [place] 9109970 [facility] [id number] CO2 [Moles/Vol] 24 mmol/L Normal 20-32 [facility] Internal Medicine Work Phone: Comment on above: PATIENT WAS FASTINGC linical Information: ADD DRAW FEE 507554 ADD J 82632 PERFORMED BY: [employer] Vushaa8585 [facility] [id number] Creatinine [Mass/Vol] 0.67 mg/dL Normal 0.57-1.00 [facility] Internal Medicine Work Phone: Comment on above: PATIENT WAS FASTINGC linical Information: ADD DRAW FEE 675888 ADD J 40615 PERFORMED BY: [employer] Xbdouq[address] [id number] GFR/1.73 sq M predicted among blacks MDRD [...] WAS FASTINGC linical Information: ADD DRAW FEE 398870 ADD J 53651 PERFORMED BY: [employer] Eyqlra[address] [place] [address] [id number] GFR/1.73 sq M.predicted MDRD (S/P/Bld) [Vol rate/Area] mL/min/{1.73_m2} Normal [facility] Work Phone: Comment on above: PATIENT WAS FASTINGC linical Information: ADD DRAW FEE 402678 ADD J 17668 PERFORMED BY: [employer] Ghzblj[address] [id number] Globulin (S) [Mass/Vol] 3.0 g/dL Normal 1.5-4.5 [facility] Work Phone: Comment on above: PATIENT WAS FASTINGC linical Information: ADD DRAW FEE 636151 ADD J 46911 PERFORMED BY: RAOUL [employer] Elnwhz4245 Os RoadAtrium Health University Cityin [place] [id number] Glucose [Mass/Vol] 115 mg/dL Abnormal 65-99 [facility] Internal Medicine Work Phone: Comment on above: PATIENT WAS FASTINGC linical Information: ADD DRAW FEE 628032 ADD J 17598 PERFORMED BY: RAOUL [facility] Adrjot9659 So RoadWakeMed North Hospital [id number] Potassium [Moles/Vol] 4.0 mmol/L Normal 3.5-5.2 [facility] Internal Medicine Work Phone: Comment on above: PATIENT WAS FASTINGC linical Information: ADD DRAW FEE 317723 ADD J 16021 PERFORMED BY: RAOUL [facility] Ypwimk1594 So [facility] [id number] Protein [Mass/Vol] 7.3 g/dL Normal 6.0-8.5 [facility] Internal Medicine Work Phone: Comment on above: PATIENT WAS FASTINGC linical Information: ADD DRAW FEE 676018 ADD J 52820 PERFORMED BY: RAOUL [facility]Tr[facility]6370 So [facility] [id number] Sodium [Moles/Vol] 142 mmol/L Normal 135-145 [facility] Internal Medicine Work Phone: Comment on above: PATIENT WAS FASTINGC linical Information: ADD DRAW FEE 465536 ADD J 49552 PERFORMED BY: RAOUL [facility]Tr[facility]6370 So [facility] [id number] Urea nitrogen [Mass/Vol] 19 mg/dL Normal 5- [facility] Internal Medicine Work Phone: Comment on above: PATIENT WAS FASTINGC linical Information: ADD DRAW FEE 410316 ADD J 80578 PERFORMED BY: RAOUL [facility] Cwshes3908 So [facility] [place] [id number] Urea nitrogen/Creatinine [Mass ratio] 28 mg/mg Abnormal 8-27 [facility] Internal Medicine Work Phone: Comment on above: PATIENT WAS FASTINGC linical Information: ADD DRAW FEE 486123 ADD J 17418 PERFORMED BY: RAOUL [facility]Christian [facility] Bqqgja2472 So [facility] [id number] Vitamin D Hydroxy (71950)Ord ered By: Maria Del Rosario Fast on 02-26-2009 Calcitriol [Mass/Vol] 16.3 ng/mL Abnormal 32.0-100.0 [facility] prehensive Internal Medicine Work Phone: Comment on above: Recent studies consi andreas the lower limit of 32.0 ng/mL to be athreshold for optimal health.Cheo MARIE. J Nutr. 2004;135(2):317-22. PATIENT WAS FASTINGP ERFORMED BY: CB [facility] Kgzqao0224 So StrevusUNC [facility] [id number] Blood Glucose , Office ([phone] 2)Ordered By: Poonam Mae on 12-04-2008 Glucose Glucometer (BldC) [Moles/Vol] 151 1 Normal [facility] Work Phone: HEPATIC FUNCTION PANEL ([phone])Ordered By: Maria Del Rosario Fast on 12-04-2008 Bilirubin.direct [Mass/Vol] 0.22 mg/dL Normal 0.00-0.40 [facility] Work Phone: Comment on above: PATIENT WAS FASTINGP ERFORMED BY: CB LabRace Yourselfrp Daprvs6669 SymtavisionUNC Health [id number] HgA1C , Office (51278)Ordere d By: Poonam Mae on 12-04-2008 HbA1c (Bld) [Mass fraction] 6.1 % Normal 4.6 - 7.1 [facility] Work Phone: LIPID PANEL (54599)Ordered B y: Maria Del Rosario Fast on 12-04-2008 Cholesterol [Mass/Vol] 183 mg/dL Normal 100-199 [facility] Work Phone: Comment on above: PATIENT WAS FASTINGP ERFORMED BY: CB [facility] Owjlnt6204 [facility]isionUNC [facility] [id number] Cholesterol in HDL [Mass/Vol] 43 mg/dL Normal [facility] Work Phone: Comment on above: According to ATP-III Guidelines, HDL-C >59 mg/dL is considered anegative risk factor for CHD. PATIENT WAS FASTINGP ERFORMED BY: CB [facility] Wrkzuk9068 [facility] [id number] Cholesterol in LDL [Mass/Vol] 113 mg/dL Abnormal 0-99 [facility] Work Phone: Comment on above: PATIENT WAS FASTINGP ERFORMED BY: RAOUL Cuevalin6370 [facility] [id number] Cholesterol in LDL/Cholesterol in HDL [Mass ratio] SPRCS Normal [facility] Work Phone: Comment on above: If initial LDL-alon sterol result is >100 mg/dL, assess forrisk factors. PATIENT WAS FASTINGP ERFORMED BY: RAOUL Cuevalin6370 [facility] [id number] Cholesterol in LDL/Cholesterol in HDL [Mass ratio] 2.6 {ratio_units} Normal 0.0-3.2 [facility] Work Phone: Comment on above: PATIENT WAS FASTINGP ERFORMED BY: RAOUL Cuevalin6370 [facility] [id number] Cholesterol in VLDL [Mass/Vol] 27 mg/dL Normal 5-40 [facility] Work Phone: Comment on above: PATIENT WAS FASTINGP ERFORMED BY: RAOUL Cuevalin6370 [facility] [id number] Triglyceride [Mass/Vol] 136 mg/dL Normal 0-149 [facility] Work Phone: Comment on above: PATIENT WAS FASTINGP ERFORMED BY: RAOUL Cuevalin6370 [facility] [id number] METABOLIC PANEL, COMPREHENSI VE (06407)Ordered By: Maria Del Rosario Machado on 12-04-2008 Albumin [Mass/Vol] 4.3 g/dL Normal 3.6-4.8 [facility] Internal Medicine Work Phone: Comment on above: PATIENT WAS FASTINGC linical Information: ADD DRAW FEE 249191 ADD J 23380 PERFORMED BY: RAOUL Cuevalin6370 [facility] [id number] Albumin/Globulin [Mass ratio] 1.5 {ratio} Normal 1.1-2.5 [facility] Work Phone: Comment on above: PATIENT WAS FASTINGC linical Information: ADD DRAW FEE 292739 ADD J 64256 PERFORMED BY: RAOUL Cowan6370 [facility] [id number] ALP [Catalytic activity/Vol] 86 [iU]/L Normal 25-165 [facility] Work Phone: Comment on above: PATIENT WAS FASTINGC linical Information: ADD DRAW FEE 472305 ADD J 39724 PERFORMED BY: RAOUL [place] Bvqkkm98[address] [id number] ALP [Catalytic activity/Vol] 86 U/L Normal 25-165 [facility]; [facility] Work Phone: Comment on above: PATIENT WAS FASTINGC linical Information: ADD DRAW FEE 177781 ADD J 31191 PERFORMED BY: RAOUL Cueva[address] [id number] ALT [Catalytic activity/Vol] 66 [iU]/L Abnormal 0-40 [facility] Work Phone: Comment on above: PATIENT WAS FASTINGC linical Information: ADD DRAW FEE 616355 ADD J 07015 PERFORMED BY: RAOUL Cueva[address] [id number] ALT [Catalytic activity/Vol] 66 U/L Abnormal 0-40 [facility]; [facility] Work Phone: Comment on above: PATIENT WAS FASTINGC linical Information: ADD DRAW FEE 792449 ADD J 78002 PERFORMED BY: RAOUL [facility] Rybmhq994[address] [id number] AST [Catalytic activity/Vol] 56 [iU]/L Abnormal 0-40 [facility] Work Phone: Comment on above: PATIENT WAS FASTINGC linical Information: ADD DRAW FEE 564016 ADD J 40621 PERFORMED BY: RAOUL [address] [id number] AST [Catalytic activity/Vol] 56 U/L Abnormal 0-40 [facility]; [facility] Work Phone: Comment on above: PATIENT WAS FASTINGC linical Information: ADD DRAW FEE 059085 ADD J 43661 PERFORMED BY: [facility]6370 [facility] [id number] Bilirubin [Mass/Vol] 0.8 mg/dL Normal 0.1-1.2 [facility] Work Phone: Comment on above: PATIENT WAS FASTINGC linical Information: ADD DRAW FEE 538856 ADD J 51267 PERFORMED BY: Lab[address] [id number] Calcium [Mass/Vol] 9.9 mg/dL Normal 8.5-10.6 [facility] Internal Medicine Work Phone: Comment on above: PATIENT WAS FASTINGC linical Information: ADD DRAW FEE 467841 ADD J 34441 PERFORMED BY: [facility]6370 [facility] [id number] Chloride [Moles/Vol] 104 mmol/L Normal 97-108 [facility] Work Phone: Comment on above: PATIENT WAS FASTINGC linical Information: ADD DRAW FEE 222465 ADD J 90145 PERFORMED BY: LabKim [place] 9109970 [facility] [id number] CO2 [Moles/Vol] 25 mmol/L Normal 20-32 [facility] Internal Medicine Work Phone: Comment on above: PATIENT WAS FASTINGC linical Information: ADD DRAW FEE 034519 ADD J 93691 PERFORMED BY: LabKim [place] 9109970 [facility] [id number] Creatinine [Mass/Vol] 0.70 mg/dL Normal 0.57-1.00 [facility] Work Phone: Comment on above: PATIENT WAS FASTINGC linical Information: ADD DRAW FEE 969066 ADD J 83544 PERFORMED BY: [address] [id number] GFR/1.73 sq M predicted among blacks MDRD [...] WAS FASTINGC linical Information: ADD DRAW FEE 708621 ADD J 29155 PERFORMED BY: RAOUL [employer] Yigmbe0231 So [facility] WindW[facility]Med [facility] Hospital [id number] GFR/1.73 sq M.predicted MDRD (S/P/Bld) [Vol rate/Area] mL/min/{1.73_m2} Normal [facility] Internal Medicine Work Phone: Comment on above: PATIENT WAS FASTINGC linical Information: ADD DRAW FEE 580015 ADD J 38937 PERFORMED BY: RAOUL [employer] So First WindWakeMed North Hospital [id number] Globulin (S) [Mass/Vol] 2.9 g/dL Normal 1.5-4.5 [facility] Internal Medicine Work Phone: Comment on above: PATIENT WAS FASTINGC linical Information: ADD DRAW FEE 603477 ADD J 44504 PERFORMED BY: RAOUL [employer] So [facility] WindWakeMed North Hospital [id number] Glucose [Mass/Vol] 143 mg/dL Abnormal 65-99 [facility] Internal Medicine Work Phone: Comment on above: PATIENT WAS FASTINGC linical Information: ADD DRAW FEE 622185 ADD J 94679 PERFORMED BY: [employer] [facility] [id number] Potassium [Moles/Vol] 4.1 mmol/L Normal 3.5-5.2 [facility] Internal Medicine Work Phone: Comment on above: PATIENT WAS FASTINGC linical Information: ADD DRAW FEE 352897 ADD J 58234 PERFORMED BY: [employer] Hncsji4379 So [facility] WindWakeMed North Hospital [id number] Protein [Mass/Vol] 7.2 g/dL Normal 6.0-8.5 [facility] Internal Medicine Work Phone: Comment on above: PATIENT WAS FASTINGC linical Information: ADD DRAW FEE 182393 ADD J 01757 PERFORMED BY: RAOUL [facility] Ilkhjn9488 So [facility] [place] [id number] Sodium [Moles/Vol] 141 mmol/L Normal 135-145 [facility] Internal Medicine Work Phone: Comment on above: PATIENT WAS FASTINGC linical Information: ADD DRAW FEE 784767 ADD J 42148 PERFORMED BY: [facility] Rsbxqo2012 So RoadWakeMed North Hospital [id number] Urea nitrogen [Mass/Vol] 15 mg/dL Normal 5-26 [facility] Work Phone: Comment on above: PATIENT WAS FASTINGC linical Information: ADD DRAW FEE 645995 ADD J 15416 PERFORMED BY: [facility] Qkpicy7144 So [facility] [place] [id number] Urea nitrogen/Creatinine [Mass ratio] 21 mg/mg Normal 8-27 [facility] Work Phone: Comment on above: PATIENT WAS FASTINGC linical Information: ADD DRAW FEE 962891 ADD J 15970 PERFORMED BY: [facility] Ixmstt7020 So [facility] [id number] TSH (39800)Ordered By: Maria Del Rosario Fast on 12-04-2008 TSH Qn 2.145 {uIU/mL} Normal 0.450-4.50 0 [facility] Internal Medicine Work Phone: Comment on above: PATIENT WAS FASTINGP ERFORMED BY: [facility] Bstoiy8684 So [facility] [place] [id number] Vitamin D Hydroxy (57148)Ord ered By: Maria Del Rosario Fast on 12-04-2008 Calcitriol [Mass/Vol] 6.4 ng/mL Abnormal 32.0-100.0 [facility] prehensive Internal Medicine Work Phone: Comment on above: Recent studies consi andreas the lower limit of 32.0 ng/mL to be athreshold for optimal health.Cheo MARIE. J Nutr. 2004;135(2):317-22. PATIENT WAS FASTINGP ERFORMED BY: [facility] Gyaifa6048 [facility] [id number] CBC WITH MANUAL DIFF (23105) Ordered By: Maria Del Rosariodaya Machado on 07-28-2008 Basophils (Bld) [#/Vol] 0.1 {x10E3/uL} Normal 0.0-0.2 [facility] Work Phone: Comment on above: PATIENT WAS FASTINGP ERFORMED BY: [place] 1381670 [facility] [id number] Basophils (Bld) [#/Vol] 0.1 10*3/uL Normal 0.0-0.2 [facility]; [facility] Work Phone: Comment on above: PATIENT WAS FASTINGP ERFORMED BY: [place] 1381670 [facility] [id number] Basophils/100 WBC (Bld) 1 % Normal 0-3 [facility] Work Phone: Comment on above: PATIENT WAS FASTINGP ERFORMED BY: [place] 1381670 [facility] [id number] Eosinophils (Bld) [#/Vol] 0.3 {x10E3/uL} Normal 0.0-0.4 [facility] Work Phone: Comment on above: PATIENT WAS FASTINGP ERFORMED BY: [facility]6370 [facility] [id number] Eosinophils (Bld) [#/Vol] 0.3 10*3/uL Normal 0.0-0.4 [facility]; [facility] Work Phone: Comment on above: PATIENT WAS FASTINGP ERFORMED BY: [facility]Tr[facility]6370 [facility] [id number] Eosinophils/100 WBC (Bld) 4 % Normal 0-7 [facility] Work Phone: Comment on above: PATIENT WAS FASTINGP ERFORMED BY: [place] 1381670 [facility] [id number] Erythrocyte distribution width (RBC) [Ratio] 13.7 % Normal 11.7-15.0 [facility] Work Phone: Comment on above: PATIENT WAS FASTINGP ERFORMED BY: RAOUL [facility] Ybfemx1140 So [facility] [id number] Hematocrit (Bld) [Volume fraction] 39.3 % Normal 34.0-44.0 [facility] Internal Medicine Work Phone: Comment on above: PATIENT WAS FASTINGP ERFORMED BY: [facility] Fewpdb5996 So [facility] [id number] Hemoglobin (Bld) [Mass/Vol] 13.3 g/dL Normal 11.5-15.0 [facility] Work Phone: Comment on above: PATIENT WAS FASTINGP ERFORMED BY: LabCoRobert Wood Johnson University Hospital at RahwayYezoqr8142 So [facility] [id number] Lymphocytes (Bld) [#/Vol] 2.2 {x10E3/uL} Normal 0.7-4.5 [facility] Work Phone: Comment on above: PATIENT WAS FASTINGP ERFORMED BY: LabCoRobert Wood Johnson [facility] Hospital at RahwayPvmpkj3220 [facility] [id number] Lymphocytes (Bld) [#/Vol] 2.2 10*3/uL Normal 0.7-4.5 [facility]; [facility] Work Phone: Comment on above: PATIENT WAS FASTINGP ERFORMED BY: [facility] Dmrmim0097 [facility] [id number] Lymphocytes/100 WBC (Bld) 32 % Normal 14-46 [facility] Work Phone: Comment on above: PATIENT WAS FASTINGP ERFORMED BY: [facility] Xyjcmj4668 [facility] [id number] MCH (RBC) [Entitic mass] 30.0 pg Normal 27.0-34.0 [facility] Internal Medicine Work Phone: Comment on above: PATIENT WAS FASTINGP ERFORMED BY: [facility] Pbbzie8190 So [facility] [id number] MCHC (RBC) [Mass/Vol] 33.8 g/dL Normal 32.0-36.0 [facility] prehensive Internal Medicine Work Phone: Comment on above: PATIENT WAS FASTINGP ERFORMED BY: RAOUL [facility] Aohulb7986 So RoadDublin [place] [id number] MCV (RBC) [Entitic vol] 89 fL Normal 80-98 [facility] Work Phone: Comment on above: PATIENT WAS FASTINGP ERFORMED BY: RAOUL [facility] Lavtln3794 So RoadDublin [place] [id number] Monocytes (Bld) [#/Vol] 0.7 {x10E3/uL} Normal 0.1-1.0 [facility] Work Phone: Comment on above: PATIENT WAS FASTINGP ERFORMED BY: RAOUL [facility] Iysmbx9336 So RoadDublin [place] [id number] Monocytes (Bld) [#/Vol] 0.7 10*3/uL Normal 0.1-1.0 [facility]; [facility] Work Phone: Comment on above: PATIENT WAS FASTINGP ERFORMED BY: RAOUL [facility] Urqwto8681 So RoadDublin [place] [id number] Monocytes/100 WBC (Bld) 10 % Normal 4-13 [facility] Work Phone: Comment on above: PATIENT WAS FASTINGP ERFORMED BY: [facility]OUL [facility] [id number] [address] RoadDublin [place] [id number] Neutrophils (Bld) [#/Vol] 3.7 {x10E3/uL} Normal 1.8-7.8 [facility] Work Phone: Comment on above: PATIENT WAS FASTINGP ERFORMED BY: RAOUL [facility] Itqrtd9963 So RoadDublin [place] [id number] Neutrophils (Bld) [#/Vol] 3.7 10*3/uL Normal 1.8-7.8 [facility]; [facility] Work Phone: Comment on above: PATIENT WAS FASTINGP ERFORMED BY: [facility] Iplguu2991 [address] RoadDublin [place] [id number] Neutrophils/100 WBC (Bld) 53 % Normal 40-74 [facility] Work Phone: Comment on above: PATIENT WAS FASTINGP ERFORMED BY: CB [facility] Ynmxwc5297 [address] RoadDublin [place] [id number] Platelets (Bld) [#/Vol] 191 {x10E3/uL} Normal 140-415 [facility] Work Phone: Comment on above: PATIENT WAS FASTINGP ERFORMED BY: CB [facility] Guvfzl5009 [address] RoadDublin [place] [id number] Platelets (Bld) [#/Vol] 191 10*3/uL Normal 140-415 [facility]; [facility] Work Phone: Comment on above: PATIENT WAS FASTINGP ERFORMED BY: CB [facility] Qovddn3594 So RoadAtrium Health University Cityin [place] [id number] RBC (Bld) [#/Vol] 4.43 {x10E6/uL} Normal 3.80-5.10 [facility] Medicine Work Phone: Comment on above: PATIENT WAS FASTINGP ERFORMED BY: CB [facility] Aruekm8782 So RoadAtrium Health University Cityin [place] [id number] RBC (Bld) [#/Vol] 4.43 10*6/uL Normal 3.80-5.10 [facility]; [facility] Work Phone: Comment on above: PATIENT WAS FASTINGP ERFORMED BY: CB [facility] Njvzsz3233 So RoadAtrium Health [facility] Cityin [place] [id number] WBC (Bld) [#/Vol] 7.0 {x10E3/uL} Normal 4.0-10.5 [facility] Internal Medicine Work Phone: Comment on above: PATIENT WAS FASTINGP ERFORMED BY: CB [facility] Ueilnw4119 [address] RoadDublin [place] [id number] WBC (Bld) [#/Vol] 7.0 10*3/uL Normal 4.0-10.5 [facility]; [facility] Work Phone: Comment on above: PATIENT WAS FASTINGP ERFORMED BY: CB [facility] Sjusge16[address] RoadDublin [place] [id number] LIPID PANEL ([id number])Ordered B y: Maria Del Rosario Fast on 07-28-2008 Cholesterol [Mass/Vol] 219 mg/dL Abnormal 100-199 [facility] Work Phone: Comment on above: PATIENT WAS FASTINGP ERFORMED BY: RAOUL [facility] Rthffa4349 So [facility] [id number] Cholesterol in HDL [Mass/Vol] 42 mg/dL Normal 40-59 [facility] Work Phone: Comment on above: PATIENT WAS FASTINGP ERFORMED BY: RAOUL [facility] Eybque7451 So [facility] [id number] Cholesterol in LDL [Mass/Vol] 144 mg/dL Abnormal 0-99 [facility] Work Phone: Comment on above: PATIENT WAS FASTINGP ERFORMED BY: RAOUL LabCojoe CuevaUgcaaf9603 So [facility] [id number] Cholesterol in LDL/Cholesterol in HDL [Mass ratio] SPRCS Normal [facility] Work Phone: Comment on above: If initial LDL-alon sterol result is >100 mg/dL, assess forrisk factors. PATIENT WAS FASTINGP ERFORMED BY: RAOUL LabMariangel CuevaJxualw7935 So [facility] [id number] Cholesterol in LDL/Cholesterol in HDL [Mass ratio] 3.4 {ratio_units} Abnormal 0.0-3.2 [facility] Work Phone: Comment on above: PATIENT WAS FASTINGP ERFORMED BY: RAOUL [facility] Tvimdb4685 So [facility] [id number] Cholesterol in VLDL [Mass/Vol] 33 mg/dL Normal 5-40 [facility] Work Phone: Comment on above: PATIENT WAS FASTINGP ERFORMED BY: RAOUL [facility] Zyqvin6576 So [facility] [id number] Triglyceride [Mass/Vol] 163 mg/dL Abnormal 0-149 [facility] Work Phone: Comment on above: PATIENT WAS FASTINGP ERFORMED BY: RAOUL [facility] Dlgwiv0203 So [facility] [id number] METABOLIC PANEL, COMPREHENSI VE ([id number])Ordered By: Maria Del Rosario Machado on 07-28-2008 Albumin [Mass/Vol] 4.4 g/dL Normal 3.6-4.8 [facility] Internal Medicine Work Phone: Comment on above: PATIENT WAS FASTINGP ERFORMED BY: RAOUL [facility] Jvnopi6240 So [facility] [id number] Albumin/Globulin [Mass ratio] 1.4 {ratio} Normal 1.1-2.5 [facility] Work Phone: Comment on above: PATIENT WAS FASTINGP ERFORMED BY: RAOUL [facility] Ugllym4351 So [facility] [id number] ALP [Catalytic activity/Vol] 97 [iU]/L Normal 25-165 [facility] Work Phone: Comment on above: PATIENT WAS FASTINGP ERFORMED BY: RAOUL [facility] Ekunng1118 So [facility] [id number] ALP [Catalytic activity/Vol] 97 U/L Normal 25-165 [facility]; [facility] Work Phone: Comment on above: PATIENT WAS FASTINGP ERFORMED BY: RAOUL [facility] Pdaroe3517 So [facility] [id number] ALT [Catalytic activity/Vol] 76 [iU]/L Abnormal 0-40 [facility] Work Phone: Comment on above: PATIENT WAS FASTINGP ERFORMED BY: RAOUL [facility] Gbeipb9532 So [facility] [place] [id number] ALT [Catalytic activity/Vol] 76 U/L Abnormal 0-40 [facility]; [facility] Work Phone: Comment on above: PATIENT WAS FASTINGP ERFORMED BY: RAOUL [facility] Sxwuwc9189 So [facility] [id number] AST [Catalytic activity/Vol] 78 [iU]/L Abnormal 0-40 [facility] Work Phone: Comment on above: PATIENT WAS FASTINGP ERFORMED BY: RAOUL [facility] Msmqjv1196 So [facility] [id number] AST [Catalytic activity/Vol] 78 U/L Abnormal 0-40 [facility]; [facility] Internal Medicine Work Phone: Comment on above: PATIENT WAS FASTINGP ERFORMED BY: [facility] Dsmjug0247 So [facility] [id number] Bilirubin [Mass/Vol] 0.8 mg/dL Normal 0.1-1.2 [facility] Work Phone: Comment on above: PATIENT WAS FASTINGP ERFORMED BY: [facility] Pigvxf5647 [facility] [id number] Calcium [Mass/Vol] 9.9 mg/dL Normal 8.5-10.6 [facility] Internal Medicine Work Phone: Comment on above: PATIENT WAS FASTINGP ERFORMED BY: [facility] Qiqcbr1239 [facility] [id number] Chloride [Moles/Vol] 105 mmol/L Normal 97-108 [facility] Internal Medicine Work Phone: Comment on above: PATIENT WAS FASTINGP ERFORMED BY: [facility] Lwigdj5775 So [facility] [id number] CO2 [Moles/Vol] 24 mmol/L Normal 20-32 [facility] Internal Medicine Work Phone: Comment on above: PATIENT WAS FASTINGP ERFORMED BY: [facility] Owpuzw3236 [facility] [id number] Creatinine [Mass/Vol] 0.60 mg/dL Normal 0.57-1.00 [facility] Internal Medicine Work Phone: Comment on above: PATIENT WAS FASTINGP ERFORMED BY: CB [facility] Vxxici9327 [facility] [id number] GFR/1.73 sq M predicted among blacks MDRD (S/P/Bld) [Vol rate/Area] mL/min/{1.73_m2} Normal 60-128 [facility] Internal Medicine Work Phone: Comment on above: Note: Persistent red uction for 3 months or more in an eGFR<60 mL/min/1.73 m2 defines CKD. Patients with eGFR values>/=60 mL/min/1.73 m2 may also have CKD if evidence of persistentproteinuria is present. Additional information may be found [email or web address]. PATIENT WAS FASTINGP ERFORMED BY: [facility]6370 [facility] [id number] GFR/1.73 sq M.predicted MDRD (S/P/Bld) [Vol rate/Area] mL/min/{1.73_m2} Normal 60-128 [facility] Internal Medicine Work Phone: Comment on above: PATIENT WAS FASTINGP ERFORMED BY: [place] [id number] [facility] [id number] Globulin (S) [Mass/Vol] 3.1 g/dL Normal 1.5-4.5 [facility] Internal Medicine Work Phone: Comment on above: PATIENT WAS FASTINGP ERFORMED BY: [place] 1381670 [facility] [id number] Glucose [Mass/Vol] 125 mg/dL Abnormal 65-99 [facility] Internal Medicine Work Phone: Comment on above: PATIENT WAS FASTINGP ERFORMED BY: [facility]6370 [facility] [id number] Potassium [Moles/Vol] 4.2 mmol/L Normal 3.5-5.2 [facility] Internal Medicine Work Phone: Comment on above: PATIENT WAS FASTINGP ERFORMED BY: [place] 1381670 [facility] [id number] Protein [Mass/Vol] 7.5 g/dL Normal 6.0-8.5 [facility] Internal Medicine Work Phone: Comment on above: PATIENT WAS FASTINGP ERFORMED BY: [place] 1381670 [facility] [id number] Sodium [Moles/Vol] 144 mmol/L Normal 135-145 [facility] Internal Medicine Work Phone: Comment on above: PATIENT WAS FASTINGP ERFORMED BY: [employer] Sorotr9235 [facility] [id number] Urea nitrogen [Mass/Vol] 20 mg/dL Normal 5-26 [facility] Work Phone: Comment on above: PATIENT WAS FASTINGP ERFORMED BY: [facility] Ltjlgz1471 [facility] [id number] Urea nitrogen/Creatinine [Mass ratio] 33 mg/mg Abnormal 8- [facility] Work Phone: Comment on above: PATIENT WAS FASTINGP ERFORMED BY: [facility] Meljfd3712 [facility] [id number] TSH ([id number])Ordered By: Maria Del Rosario Machado on 07-28-2008 TSH Qn 3.685 {uIU/mL} Normal 0.450-4.50 0 [facility] Work Phone: Comment on above: Please note refere nce interval change PATIENT WAS FASTINGP ERFORMED BY: [facility] Ahvmxq2292 [facility] [id number] Blood Glucose , Office ([phone])Ordered By: Maria Del Rosario Fast on 07-25-2008 Glucose Glucometer (BldC) [Moles/Vol] 163 1 Normal [facility] Work Phone: HgA1C , Office ([phone])Ordere d By: Maria Del Rosario Fast on 07-25-2008 HbA1c (Bld) [Mass fraction] 6.6 % Normal 4.6 - 7.1 [facility] Work Phone: Rapid Strep Test, Office ([phone])Ordered By: [place] on 06-26-2008 S. pyogenes Ag EIA Ql (Throat) Negative Normal [facility]; [facility] Work Phone: S. pyogenes Ag IA Ql (Unsp spec) Negative Normal [facility] Work Phone: Vital Signs Date Time Vital Sign Value Performing Clinician Facility 06-10-2025 16:48-0400 Body temperature 98.2 [degF] Dr. Terrell Schafer MD Work Phone: [facility] 06-10-2025 16:48-0400 Diastolic blood pressure 70 mm[Hg] Dr. Terrell Schafer MD Work Phone: [facility] 06-10-2025 16:48-0400 Heart rate 88 /min Dr. Terrell Schafer MD Work Phone: [facility] 06-10-2025 16:48-0400 Respiratory rate 18 /min Dr. Terrell Schafer MD Work Phone: [facility] 06-10-2025 16:48-0400 SaO2% (BldA) [Mass fraction] 93 % Dr. Terrell Schafer MD Work Phone: [facility] 06-10-2025 16:48-0400 Systolic blood pressure 127 mm[Hg] Dr. Terrell Schafer MD Work Phone: [facility] 06-10-2025 13:12-0400 Inhaled oxygen flow rate 2 L/min Dr. Terrell Schafer MD Work Phone: [facility] 06-10-2025 05:55-0400 Body mass index (BMI) [Ratio] 36.4 kg/m2 Dr. Terrell Schafer MD Work Phone: [facility] 06-10-2025 05:55-0400 Body weight 99.[address] Terrell Schafer MD Work Phone: [facility] 06-07-2025 11:22-0400 Body height 165.[address] Terrell Schafer MD Work Phone: [facility] 06-06-2025 20:38-0400 Body temperature 99.7 [degF] Dr. Terrell Schafer MD Work Phone: [facility] 06-06-2025 20:38-0400 Diastolic blood pressure 95 mm[Hg] Dr. Terrell Schafer MD Work Phone: [facility] 06-06-2025 20:38-0400 Heart rate 106 /min Dr. Terrell Schafer MD Work Phone: [facility] 06-06-2025 20:38-0400 Respiratory rate 20 /min Dr. Terrell Schafer MD Work Phone: [facility] 06-06-2025 20:38-0400 SaO2% (BldA) [Mass fraction] 97 % Dr. Terrell Schafer MD Work Phone: [facility] 06-06-2025 20:38-0400 Systolic blood pressure 175 mm[Hg] Dr. Terrell Schafer MD Work Phone: [facility] 06-06-2025 20:00-0400 Inhaled oxygen flow rate 3 L/min Dr. Terrell Schafer MD Work Phone: [facility] 06-06-2025 18:06-0400 Body height 165.[address] Terrell Schafer MD Work Phone: [facility] 06-06-2025 18:06-0400 Body mass index (BMI) [Ratio] 37.4 kg/m2 Dr. Terrell Schafer MD Work Phone: [facility] 06-06-2025 18:06-0400 Body weight [address] Terrell Schafer MD Work Phone: [facility] 05-29-2025 14:06-0400 Body temperature 97.5 [degF] Dr. Terrell Schafer MD Work Phone: [facility] 05-29-2025 14:06-0400 Diastolic blood pressure 80 mm[Hg] Dr. Terrell Schafer MD Work Phone: [facility] 05-29-2025 14:06-0400 Heart rate 80 /min Dr. Terrell Schafer MD Work Phone: [facility] 05-29-2025 14:06-0400 Respiratory rate 16 /min Dr. Terrell Schafer MD Work Phone: [facility] 05-29-2025 14:06-0400 SaO2% (BldA) [Mass fraction] 90 % Dr. Terrell Schafer MD Work Phone: [facility] 05-29-2025 14:06-0400 Systolic blood pressure 130 mm[Hg] Dr. Terrell Schafer MD Work Phone: [facility] 03-13-2025 10:12-0400 Body mass index (BMI) [Ratio] 37.5 kg/m2 Dr. Terrell Schafer MD Work Phone: [facility] 03-13-2025 10:12-0400 Body weight 102.[address] Terrell Schafer MD Work Phone: [facility] 03-13-2025 10:12-0400 Diastolic blood pressure 84 mm[Hg] Dr. Terrell Schafer MD Work Phone: [facility] 03-13-2025 10:12-0400 Heart rate 83 /min Dr. Terrell Schafer MD Work Phone: [facility] 03-13-2025 10:12-0400 SaO2% (BldA) [Mass fraction] 95 % Dr. Terrell Schafer MD Work Phone: [facility] 03-13-2025 10:12-0400 Systolic blood pressure 165 mm[Hg] Dr. Terrell Schafer MD Work Phone: [facility] 02-13-2025 10:49-0400 Body mass index (BMI) [Ratio] 37 kg/m2 Dr. Terrell Schafer MD Work Phone: [facility] 02-13-2025 10:49-0400 Body weight 101.[address] Terrell Schafer MD Work Phone: [facility] 02-13-2025 10:49-0400 Diastolic blood pressure 74 mm[Hg] Dr. Terrell Schafer MD Work Phone: [facility] 02-13-2025 10:49-0400 Heart rate 92 /min Dr. Terrell Schafer MD Work Phone: [facility] 02-13-2025 10:49-0400 Respiratory rate 18 /min Dr. Terrell Schafer MD Work Phone: [facility] 02-13-2025 10:49-0400 Systolic blood pressure 157 mm[Hg] Dr. Terrell Schafer MD Work Phone: [facility] 02-08-2025 16:07-0400 Body mass index (BMI) [Ratio] 37.5 kg/m2 Dr. Terrell Schafer MD Work Phone: [facility] 02-08-2025 16:07-0400 Body temperature 97 [degF] Dr. Terrell Schafer MD Work Phone: [facility] 02-08-2025 16:07-0400 Body weight 102.[address] Terrell Schafer MD Work Phone: [facility] 02-08-2025 16:07-0400 Diastolic blood pressure 88 mm[Hg] Dr. Terrell Schafer MD Work Phone: [facility] 02-08-2025 16:07-0400 Heart rate 111 /min Dr. Terrell Schafer MD Work Phone: [facility] 02-08-2025 16:07-0400 Respiratory rate 16 /min Dr. Terrell Schafer MD Work Phone: [facility] 02-08-2025 16:07-0400 SaO2% (BldA) [Mass fraction] 94 % Dr. Terrell Schafer MD Work Phone: [facility] 02-08-2025 16:07-0400 Systolic blood pressure 122 mm[Hg] Dr. Terrell Schafer MD Work Phone: [facility] 10-07-2021 12:27-0500 Body height 158.75 cm Madison Slarb UNIT COORDINATOR [facility]; [facility] Work Phone: 10-07-2021 12:27-0500 Body mass index (BMI) [Ratio] 42.75 kg/m2 Madison Slarb UNIT COORDINATOR [facility]; [facility] Work Phone: 10-07-2021 12:27-050 Body surface area Derived from formula 2.07 m2 Madison Slarb UNIT COORDINATOR [facility]; [facility] Work Phone: 10-07-2021 12:27-0500 Body temperature 97.1 [degF] Madison Slarb UNIT COORDINATOR [facility]; [facility] Work Phone: 10-07-2021 12:27-050 Body weight 107.73 kg Madison Slarb UNIT COORDINATOR [facility]; [facility] Work Phone: 10-07-2021 12:27-0500 Diastolic blood pressure 82 mm[Hg] Madison Slarb UNIT COORDINATOR [facility]; [facility] Work Phone: Comment on above: Patient Position: Sitting; Cuff Location : Left Arm; Cuff Size: Standard 10-07-2021 12:27-0500 Heart rate 94 /min Madison Slarb UNIT COORDINATOR [facility]; [facility] Work Phone: Comment on above: Pattern: Regular 10-07-2021 12:27-0500 Respiratory rate 17 /min Madison Slarb UNIT COORDINATOR [facility]; [facility] Work Phone: Comment on above: Pattern: Unlabored 10-07-2021 12:27-0500 SaO2% (BldA) [Mass fraction] 98 % Madison Slarb UNIT COORDINATOR [facility]; [facility] Work Phone: Comment on above: Room air 10-07-2021 12:27-0500 Systolic blood pressure 124 mm[Hg] Madison Slarb DONALD [facility]; [facility] [...] Medicine; [facility] Work Phone: 09-13-2021 10:09040 Body temperature 96.8 [degF] Virginie Calderón MA [facility]; [facility] Work Phone: Comment on above: Method: Temporal 09-13-2021 10:090400 Body weight 107.28 kg Virginie Calderón MA [facility]; [facility] Work Phone: 09-13-2021 10:09-0400 Diastolic blood pressure 85 mm[Hg] Virginie Calderón MA [facility]; [facility] Work Phone: Comment on above: Patient Position: Sitting; Cuff Location : Left Arm; Cuff Size: Standard 09-13-2021 10:090400 Heart rate 87 /min Virginie Calderón MA [...] 10:06-0400 Body height 158.75 cm Marie Collado DONALD [facility]; [facility] Work Phone: 07-12-2021 10:06-0400 Body mass index (BMI) [Ratio] 42.39 kg/m2 Marie Collado DONALD [facility]; [facility] Work Phone: 07-12-2021 10:06-0400 Body surface area Derived from formula 2.06 m2 Marie Collado DONALD [facility]; [facility] Work Phone: 07-12-2021 10:06-0400 Body temperature 96.9 [degF] Marie Collado DONALD [facility]; [facility] Work Phone: Comment on above: Method: Temporal 07-12-2021 10:06-0400 Body weight 106.82 kg Marie Collado DONALD [facility]; [facility] Work Phone: 07-12-2021 10:06-0400 Diastolic blood pressure 100 mm[Hg] Marienelson Collado DONALD [facility]; [facility] Work Phone: Comment on above: Patient Position: Sitting; Cuff Location : Left Arm; Cuff Size: Standard 07-12-2021 10:06-0400 Heart rate 99 /min Marienelson Collado DONALD [facility]; [facility] Work Phone: Comment on above: Pattern: Regular 07-12-2021 10:06-0400 Respiratory rate 16 /min Marienelson Collado DONALD [facility]; [facility] Work Phone: Comment on above: Pattern: Unlabored 07-12-2021 10:06-0400 SaO2% (BldA) [Mass fraction] 96 % Marie Tobias DONALD [facility]; [facility] Work Phone: Comment on above: Room air 07-12-2021 10:06-0400 Systolic blood pressure 140 mm[Hg] Marie Collado LPN [facility]; [facility] Work Phone: Comment on above: Patient Position: Sitting; Cuff Location : Left Arm; Cuff Size: Standard 06-10-2021 08:27-0400 Body height 158.75 cm Dante Salmon LPN [facility]; [facility] Work Phone: 06-10-2021 08:0400 Body mass index (BMI) [Ratio] 42.66 kg/m2 Dante Salmon LPN [facility]; [facility] Work Phone: 06-10-2021 08:040 Body surface area Derived from formula 2.07 m2 Dante Salmon LPN [facility]; [facility] Work Phone: 06-10-2021 08:040 Body temperature 97.4 [degF] Dante Salmon LPN [facility]; [facility] Work Phone: Comment on above: Method: Infrared 06-10-2021 08:0400 Body weight 107.51 kg Dante Salmon LPN [...] : Left Arm; Cuff Size: Standard 03-11-2021 10:12-0400 Body height 158.75 cm Madison Slarb UNIT COORDINATOR [facility]; [facility] Work Phone: 03-11-2021 10:12-0400 Body mass index (BMI) [Ratio] 42.18 kg/m2 Madison Slarb UNIT COORDINATOR [facility]; [facility] Work Phone: 03-11-2021 10:12-0400 Body surface area Derived from formula 2.06 m2 Madison Slarb UNIT COORDINATOR [facility]; [facility] Work Phone: 03-11-2021 10:12-0400 Body temperature 97.3 [degF] Madison Slarb UNIT COORDINATOR [facility]; [facility] Work Phone: 03-11-2021 10:12-0400 Body weight 106.31 kg Madison Slarb UNIT COORDINATOR [facility]; [facility] Work Phone: 03-11-2021 10:12-0400 Diastolic blood pressure 84 mm[Hg] Madison Slarb UNIT COORDINATOR [facility]; [facility] Work Phone: Comment on above: Patient Position: Sitting; Cuff Location : Left Arm; Cuff Size: Standard 03-11-2021 10:12-0400 Heart rate 65 /min Madison Slarb UNIT COORDINATOR [facility]; [facility] Work Phone: Comment on above: Pattern: Regular 03-11-2021 10:12-0400 Respiratory rate 18 /min Madison Slarb UNIT COORDINATOR [facility]; [facility] Work Phone: Comment on above: Pattern: Unlabored 03-11-2021 10:12-0400 SaO2% (BldA) [Mass fraction] 97 % Madison Slarb UNIT COORDINATOR [facility]; [facility] Work Phone: Comment on above: Room air 03-11-2021 10:12-0400 Systolic blood pressure 140 mm[Hg] Madison Slarb UNIT COORDINATOR [facility]; [facility] Work Phone: Comment on above: Patient Position: Sitting; Cuff Location : Left Arm; Cuff Size: Standard 02-27-2021 10:24-0400 BMI (Body Mass Index) 42.48 kg/m2 Dante Salmon LPN Comprehen sive Internal Medicine; [facility] Work Phone: 02-27-2021 10:24-0400 Body Temperature 97.8 [degF] Dante Salmon LPN [facility]; [facility] Work Phone: Comment on above: Method: Infrared 02-27-2021 10:240400 Body weight 107.06 kg Dante Salmon LPN [...] 09:36-0500 Pulse Oximetry 99 % Teresita Ruiz [facility]; [facility] [...] 08:49-0500 Pulse Oximetry 96 % Teresita Ruiz [facility]; [facility] [...] Mass Index) 41.76 kg/m2 Dante Salmon LPN Comprehjose francisco henriquez [facility] Work Phone: 10-16-2020 09:46-0500 Body weight 105.25 kg Dante Salmon LPN [facility] Work Phone: 10-16-2020 09:46-0500 BSA (Body Surface Area) 2.05 m2 Dante Salmon LPN [facility] Work Phone: 10-16-2020 09:46-0500 Height 158.75 cm Dante Salmon LPN [facility] Work Phone: 07-16-2020 08:46-0400 BMI (Body Mass Index) 41.76 kg/m2 Dante henriquez [facility] Work Phone: 07-16-2020 08:46-0400 Body Temperature 97.6 [degF] Dante Salmon LPN [facility] Work Phone: Comment on above: Method: Infrared 07-16-2020 08:46-0400 Body weight 105.25 kg Dante Salmon LPN [facility] Work Phone: 07-16-2020 08:46-0400 BP Diastolic 80 mm[Hg] Dante Salmon LPN [facility] Work Phone: Comment on above: Patient Position: Sitting; Cuff Location : Left Arm; Cuff Size: Standard 07-16-2020 08:46-0400 BP Systolic 140 mm[Hg] Dante Salmon LPN [facility] Internal Medicine Work Phone: Comment on above: Patient Position: Sitting; Cuff Location : Left Arm; Cuff Size: Standard 07-16-2020 08:46-0400 BSA (Body Surface Area) 2.05 m2 Dante Salmon LPN [facility] Internal Medicine Work Phone: 07-16-2020 08:46-0400 Height 158.75 cm Dante Salmon LPN [facility] Internal [facility] Work Phone: 07-16-2020 08:46-0400 Pulse (Heart Rate) 91 /min Dante Salmon LPN Comprehensiv e Internal Medicine Work Phone: Comment on above: Pattern: Regular 07-16-2020 08:46-0400 Pulse Oximetry 93 % Teresita Sitadaya [facility] Internal Medicine Work Phone: Comment on above: Room air 07-16-2020 08:46-0400 Respiratory Rate 18 /min Dante Salmon LPN [facility] Internal Medicine Work Phone: Comment on above: Pattern: Unlabored 07-16-2020 08:46-0400 SaO2% (BldA) [Mass fraction] 93 % Dante Salmon LPN [facility]; [facility] Work Phone: Comment on above: Room air 04-13-2020 07:37-0400 BMI (Body Mass Index) 41.76 kg/m2 Dante Salmon LPN Compre[facility] Internal Medicine Work Phone: 04-13-2020 07:37-0400 Body Temperature 97.6 [degF] Dante Salmon LPN [facility] Internal Medicine Work Phone: Comment on above: Method: Temporal 04-13-2020 07:37-0400 Body weight 105.24 kg Dante Salmon LPN [facility] Internal Medicine Work Phone: 04-13-2020 07:37-0400 BP Diastolic 78 mm[Hg] Dante Salmon LPN [facility] Internal Medicine Work Phone: Comment on above: Patient Position: Sitting; Cuff Location : Left Arm; Cuff Size: Standard 04-13-2020 07:37-0400 BP Systolic 124 mm[Hg] Dante Salmon LPN [facility] Work Phone: Comment on above: Patient Position: Sitting; Cuff Location : Left Arm; Cuff Size: Standard 04-13-2020 07:37-0400 BSA (Body Surface Area) 2.05 m2 Dante Salmon LPN [facility] Work Phone: 04-13-2020 07:37-0400 Height 158.75 cm Dante Salmon LPN [facility] Internal Medicine Work Phone: 04-13-2020 07:37-0400 Pulse (Heart Rate) 96 /min Dante Salmon LPN Comprehensiv e Internal Medicine Work Phone: Comment on above: Pattern: Regular 04-13-2020 07:37-0400 Pulse Oximetry 95 % Teresita Hurleydaya [facility] Internal Medicine Work Phone: Comment on above: Room air 04-13-2020 07:37-0400 Respiratory Rate 16 /min Dante Salmon LPN [facility] Work Phone: Comment on above: Pattern: Unlabored 04-13-2020 07:37-0400 SaO2% (BldA) [Mass fraction] 95 % Dante Salmon LPN [facility]; [facility] Work Phone: Comment on above: Room air 03-27-2020 09:20-0400 BMI (Body Mass Index) 41.96 kg/m2 Madison Greer LPN Compre[facility] Internal Medicine Work Phone: 03-27-2020 09:20-0400 Body Temperature 97.6 [degF] Madison Greer LPN [facility] Work Phone: 03-27-2020 09:20-0400 Body weight 105.75 kg Madison Roelrb UNIT COORDINATOR [facility] Work Phone: 03-27-2020 09:20-0400 BP Diastolic 84 mm[Hg] Madison Slarb UNIT COORDINATOR [facility] Work Phone: Comment on above: Patient Position: Sitting; Cuff Location : Left Arm; Cuff Size: Standard 03-27-2020 09:20-0400 BP Systolic 142 mm[Hg] Madison Slarb UNIT COORDINATOR [facility] Work Phone: Comment on above: Patient Position: Sitting; Cuff Location : Left Arm; Cuff Size: Standard 03-27-2020 09:20-0400 BSA (Body Surface Area) 2.05 m2 Madison Percy BENNETT [facility] Work Phone: 03-27-2020 09:20-0400 Height 158.75 cm Madison Greer LPN [facility] Work Phone: 03-27-2020 09:20-0400 Pulse (Heart Rate) 81 /min Madison Percy BENNETT Com[facility] Work Phone: Comment on above: Pattern: Regular 03-27-2020 09:20-0400 Pulse Oximetry 97 % Teresita Ruiz [facility] Work Phone: Comment on above: Room air 03-27-2020 09:20-0400 Respiratory Rate 17 /min Madison Greer LPN [facility] Work Phone: Comment on above: Pattern: Unlabored 03-27-2020 09:20-0400 SaO2% (BldA) [Mass fraction] 97 % Madison Greer LPN [facility]; [facility] Work Phone: Comment on above: Room air 02-21-2020 08:39-0400 BMI (Body Mass Index) 41.49 kg/m2 Dante Salmon LPN [facility]pre[facility] Medicine Work Phone: 02-21-2020 08:39-0400 Body Temperature 97.1 [degF] Dante Salmon LPN [facility] Work Phone: Comment on above: Method: Temporal 02-21-2020 08:39-0400 Body weight 104.55 kg Dante Salmon LPN [facility] Work Phone: 02-21-2020 08:39-0400 BP Diastolic 92 mm[Hg] Dante Salmon LPN [facility] Work Phone: Comment on above: Patient Position: Sitting; Cuff Location : Left Arm; Cuff Size: Standard 02-21-2020 08:39-0400 BP Systolic 140 mm[Hg] Dante Salmon LPN [facility] Work Phone: Comment on above: Patient Position: Sitting; Cuff Location : Left Arm; Cuff Size: Standard 02-21-2020 08:39-0400 BSA (Body Surface Area) 2.04 m2 Dante Salmon LPN [facility] Internal Medicine Work Phone: 02-21-2020 08:39-0400 Height 158.75 cm Dante Salmon LPN [facility] Internal Medicine Work Phone: 02-21-2020 08:39-0400 Pulse (Heart Rate) 103 /min Dante Salmon LPN Comprehensiv e Internal Medicine Work Phone: Comment on above: Pattern: Regular 02-21-2020 08:39-0400 Pulse Oximetry 97 % Teresita Ruiz [facility] Internal Medicine Work Phone: Comment on above: Room air 02-21-2020 08:39-0400 Respiratory Rate 16 /min Dante Salmon LPN [facility] Internal Medicine Work Phone: Comment on above: Pattern: Unlabored 02-21-2020 08:39-0400 SaO2% (BldA) [Mass fraction] 97 % Dante Salmon LPN [facility] Internal Medicine; [facility] Work Phone: Comment on above: Room air 01-09-2020 08:07-0500 BMI (Body Mass Index) 39.78 kg/m2 Dante Salmon LPN Comprehen s[facility] Internal Medicine Work Phone: 01-09-2020 08:07-0500 Body Temperature 97.5 [degF] Dante Salmon LPN [facility] Internal Medicine Work Phone: Comment on above: Method: Temporal 01-09-2020 08:07-0500 Body weight 100.25 kg Dante Salmon LPN [facility] Internal Medicine Work Phone: 01-09-2020 08:07-0500 BP Diastolic 86 mm[Hg] Dante Salmon LPN [facility] Internal Medicine Work Phone: Comment on above: Patient Position: Sitting; Cuff Location : Left Arm; Cuff Size: Standard 01-09-2020 08:07-0500 BP Systolic 148 mm[Hg] Dante Salmon LPN [facility] Internal Medicine Work Phone: Comment on above: Patient Position: Sitting; Cuff Location : Left Arm; Cuff Size: Standard 01-09-2020 08:07-0500 BSA (Body Surface Area) 2.01 m2 Dante Salmon LPN [facility] Internal Medicine Work Phone: 01-09-2020 08:07-0500 Height 158.75 cm Dante Salmon LPN [facility] Internal Medicine Work Phone: 01-09-2020 08:07-0500 Pulse (Heart Rate) 85 /min Dante Salmon LPN Comprehensiv e Internal Medicine Work Phone: Comment on above: Pattern: Regular 01-09-2020 08:07-0500 Pulse Oximetry 99 % Teresita Ruiz [facility] Internal Medicine Work Phone: Comment on above: Room air 01-09-2020 08:07-0500 Respiratory Rate 18 /min Dante Salmon LPN [facility] Internal Medicine Work Phone: Comment on above: Pattern: Unlabored 01-09-2020 08:07-0500 SaO2% (BldA) [Mass fraction] 99 % Dante Salmon LPN [facility] Internal Medicine; [facility] Work Phone: Comment on above: Room air 01-02-2020 12:57-0500 BMI (Body Mass Index) 38.88 kg/m2 Dante Salmon LPN Compre[facility] Internal Medicine Work Phone: 01-02-2020 12:57-0500 Body Temperature 98.3 [degF] Dante Salmon LPN [facility] Internal Medicine Work Phone: Comment on above: Method: Temporal 01-02-2020 12:57-0500 Body weight 97.99 kg Dante Salmon LPN [facility] Internal Medicine Work Phone: 01-02-2020 12:57-0500 BP Diastolic 74 mm[Hg] Dante Salmon LPN [facility] Internal Medicine Work Phone: Comment on above: Patient Position: Sitting; Cuff Location : Left Arm; Cuff Size: Standard 01-02-2020 12:57-0500 BP Systolic 130 mm[Hg] Dante Salmon LPN [facility] Work Phone: Comment on above: Patient Position: Sitting; Cuff Location : Left Arm; Cuff Size: Standard 01-02-2020 12:57-0500 BSA (Body Surface Area) 1.99 m2 Dante Salmon LPN [facility] Internal Medicine Work Phone: 01-02-2020 12:57-0500 Height 158.75 cm Dante Salmon LPN [facility] Internal Medicine Work Phone: 01-02-2020 12:57-0500 Pulse (Heart Rate) 72 /min Dante Salmon LPN Comprehensiv e Internal Medicine Work Phone: Comment on above: Pattern: Regular 01-02-2020 12:57-0500 Pulse Oximetry 96 % Teresita Ruiz [facility] Internal Medicine Work Phone: Comment on above: Room air 01-02-2020 12:57-0500 Respiratory Rate 16 /min Dante Salmon LPN [facility] Internal Medicine Work Phone: Comment on above: Pattern: Unlabored 01-02-2020 12:57-0500 SaO2% (BldA) [Mass fraction] 96 % Dante Salmon LPN [facility] Internal Medicine; [facility] Work Phone: Comment on above: Room air 12-27-2019 08:58-0500 BMI (Body Mass Index) 37.98 kg/m2 Dante Salmon LPN [facility]pre[facility] Internal Medicine Work Phone: 12-27-2019 08:58-0500 Body Temperature 97.8 [degF] Dante Salmon LPN [facility] Internal Medicine Work Phone: Comment on above: Method: Temporal 12-27-2019 08:58-0500 Body weight 95.72 kg Dante Salmon LPN [facility] Internal Medicine Work Phone: 12-27-2019 08:58-0500 BP Diastolic 84 mm[Hg] Dante Salmon LPN [facility] Internal Medicine Work Phone: Comment on above: Patient Position: Sitting; Cuff Location : Left Arm; Cuff Size: Standard 12-27-2019 08:58-0500 BP Systolic 136 mm[Hg] Dante Salmon LPN [facility] Work Phone: Comment on above: Patient Position: Sitting; Cuff Location : Left Arm; Cuff Size: Standard 12-27-2019 08:58-0500 BSA (Body Surface Area) 1.97 m2 Dante Salmon LPN [facility] Work Phone: 12-27-2019 08:58-0500 Height 158.75 cm Dante Salmon LPN [facility] Work Phone: 12-27-2019 08:58-0500 Pulse (Heart Rate) 113 /min Dante Salmon LPN Comprehens[facility] e [facility] Medicine Work Phone: Comment on above: Pattern: Regular 12-27-2019 08:58-0500 Pulse Oximetry 96 % Teresita Ruiz [facility] Internal Medicine Work Phone: Comment on above: Room air 12-27-2019 08:58-0500 Respiratory Rate 16 /min Dante Salmon LPN [facility] Internal Medicine Work Phone: Comment on above: Pattern: Unlabored 12-27-2019 08:58-0500 SaO2% (BldA) [Mass fraction] 96 % Dante Salmon LPN [facility] Internal Medicine; [facility] Work [...] Phone: 03-27-2017 11:14-0400 Respiratory Rate 20 /min Belkys Valero RN [facility] Work Phone: 09-25-2016 11:31-0500 BSA (Body Surface Area) 2.12 m2 Belkys Valero RN [facility] Work Phone: 06-14-2010 11:05-0400 BMI (Body Mass Index) 43.21 kg/m2 Poonam Mae Comprehen siv Internal Medicine Work Phone: 06-14-2010 11:05-0400 Body Temperature 98.6 [degF] Poonam Mae [facility] Internal Medicine Work Phone: 06-14-2010 11:05-0400 Body weight 109.77 kg Poonam Mae [facility] Internal Medicine Work Phone: 06-14-2010 11:05-0400 BP Diastolic 72 mm[Hg] Poonam Mae [facility] Internal Medicine Work Phone: Comment on above: Patient Position: Sitting; Cuff Location : Left Arm; Cuff Size: Large 06-14-2010 11:05-0400 BP Systolic 144 mm[Hg] Poonam Mae [facility] Internal Medicine Work Phone: Comment on above: Patient Position: Sitting; Cuff Location : Left Arm; Cuff Size: Large 06-14-2010 11:05-0400 BSA (Body Surface Area) 2.09 m2 Poonam Mae [facility] Internal Medicine Work Phone: 06-14-2010 11:05-0400 Height 159.38 cm Poonam Mae [facility] Internal Medicine Work Phone: 06-14-2010 11:05-0400 Pulse (Heart Rate) 72 /min Poonam Mae Comprehensiv e Internal Medicine Work Phone: Comment on above: Pattern: Regular 06-14-2010 11:05-0400 Respiratory Rate 18 /min Poonam Mae [facility] Internal Medicine Work Phone: Comment on above: Pattern: Unlabored 09-03-2009 09:11-0400 Body Temperature 98.2 [degF] Poonam Mae [facility] Internal Medicine Work Phone: Comment on above: Method: Undefined 09-03-2009 09:11-0400 Body weight 111.13 kg Poonam Mae [facility] Internal Medicine Work Phone: 09-03-2009 09:11-0400 BP Diastolic 64 mm[Hg] Poonam Mae [facility] Internal Medicine Work Phone: Comment on above: Patient Position: Sitting; Cuff Location : Left Arm; Cuff Size: Large 09-03-2009 09:11-0400 BP Systolic 128 mm[Hg] Pooanm Mae [facility] Internal Medicine Work Phone: Comment on above: Patient Position: Sitting; Cuff Location : Left Arm; Cuff Size: Large 09-03-2009 09:11-0400 Head Circumference 0 cm Teresita Ruiz [facility] Internal Medicine Work Phone: 09-03-2009 09:11-0400 Head Occipital-frontal circumference 0 cm Poonam Carmelita [facility] Internal Medicine; [facility] Work Phone: 09-03-2009 09:11-0400 Height 0 cm Poonam Tonglaverne [facility] Internal Medicine Work Phone: 09-03-2009 09:11-0400 Pulse (Heart Rate) 72 /min Poonam Mae [facility] Internal Medicine Work Phone: Comment on above: Pattern: Regular 09-03-2009 09:11-0400 Respiratory Rate 18 /min Poonam Carmelita [facility] Internal Medicine Work Phone: Comment on above: Pattern: Undefined 06-04-2009 11:44-0400 Body Temperature 97.3 [degF] Poonam Tonglaverne [facility] Internal Medicine Work Phone: Comment on above: Method: Undefined 06-04-2009 11:44-0400 Body weight 112.04 kg Poonam Honeycuttshelly [facility] Internal Medicine Work Phone: 06-04-2009 11:44-0400 BP Diastolic 58 mm[Hg] Poonam Carmelita [facility] Internal Medicine Work Phone: Comment on above: Patient Position: Sitting; Cuff Location : Left Arm; Cuff Size: Large 06-04-2009 11:44-0400 BP Systolic 144 mm[Hg] Poonam Tonglaverne [facility] Internal Medicine Work Phone: Comment on above: Patient Position: Sitting; Cuff Location : Left Arm; Cuff Size: Large 06-04-2009 11:44-0400 Head Circumference 0 cm [facility] Internal Medicine Work Phone: 06-04-2009 11:44-0400 Head Occipital-frontal circumference 0 cm Poonam Carmelita [facility] Internal Medicine; [facility] Work Phone: 06-04-2009 11:44-0400 Height 0 cm Poonam Carmelita [facility] Internal Medicine Work Phone: 06-04-2009 11:44-0400 Pulse (Heart Rate) 76 /min Poonam Carmelita [facility] Internal Medicine Work Phone: Comment on above: Pattern: Regular 06-04-2009 11:44-0400 Respiratory Rate 18 /min Poonam Carmelita [facility] Internal Medicine Work Phone: Comment on above: Pattern: Undefined 03-05-2009 09:13-0400 Body Temperature 96.7 [degF] Poonam Carmelita [facility] Internal Medicine Work Phone: Comment on above: Method: Undefined 03-05-2009 09:13-0400 Body weight 113.85 kg Poonam Carmelita [facility] Internal Medicine Work Phone: 03-05-2009 09:13-0400 BP Diastolic 84 mm[Hg] Poonam Carmelita [facility] Internal Medicine Work Phone: Comment on above: Patient Position: Sitting; Cuff Location : Left Arm; Cuff Size: Large 03-05-2009 09:13-0400 BP Systolic 148 mm[Hg] Poonam Carmelita [facility] Internal Medicine Work Phone: Comment on above: Patient Position: Sitting; Cuff Location : Left Arm; Cuff Size: Large 03-05-2009 09:13-0400 Head Circumference 0 cm [facility] Internal Medicine Work Phone: 03-05-2009 09:13-0400 Head Occipital-frontal circumference 0 cm Poonam Mae [facility]; [facility] Work Phone: 03-05-2009 09:13-0400 Height 0 cm Poonam Carmelita [facility] Work Phone: 03-05-2009 09:13-0400 Pulse (Heart Rate) 72 /min Poonam Carmelita Comprehens e Internal Medicine Work Phone: Comment on above: Pattern: Regular 03-05-2009 09:13-0400 Respiratory Rate 18 /min Poonam Carmelita [facility] Work Phone: Comment on [...] 01-17-2009 14:37-0500 Head Circumference 0 cm Teresita Meidaya [facility] Work Phone: 01-17-2009 14:37-0500 [...] 09:57-0500 Body Temperature 96.8 [degF] Poonam Mae [facility] Internal Medicine Work Phone: Comment on above: Method: Undefined 12-11-2008 09:57-0500 Body weight 0 kg Poonam Mae [facility] Internal Medicine Work Phone: 12-11-2008 09:57-0500 BP Diastolic 68 mm[Hg] Poonam Mae [facility] Internal Medicine Work Phone: Comment on above: Patient Position: Standing; Cuff Locatio n: Left Arm; Cuff Size: Large 12-11-2008 09:57-0500 BP Systolic 124 mm[Hg] Poonam Mae [facility] Internal Medicine Work Phone: Comment on above: Patient Position: Standing; Cuff Locatio n: Left Arm; Cuff Size: Large 12-11-2008 09:57-0500 Head Circumference 0 cm Teresita Ruiz [facility] Internal Medicine Work Phone: 12-11-2008 09:57-0500 Head Occipital-frontal circumference 0 cm Poonam Mae [facility] Internal Medicine; [facility] Work Phone: 12-11-2008 09:57-0500 Height 0 cm Poonam Mae [facility] Internal Medicine Work Phone: 12-11-2008 09:57-0500 Pulse (Heart Rate) 72 /min [facility]: Comment on above: Pattern: Regular 12-11-2008 09:57-0500 Respiratory Rate 18 /min Poonam Mae [facility] Internal Medicine Work Phone: Comment on above: Pattern: Undefined 12-04-2008 09:31-0500 Body Temperature 96.3 [degF] Poonam Mae [facility] Internal Medicine Work Phone: Comment on above: Method: Undefined 12-04-2008 09:31-0500 Body weight 112.04 kg Poonam Mae [facility] Internal Medicine Work Phone: 12-04-2008 09:31-0500 BP Diastolic 70 mm[Hg] Poonam Mae [facility] Internal Medicine Work Phone: Comment on above: Patient Position: Standing; Cuff Locatio n: Left Arm; Cuff Size: Large 12-04-2008 09:31-0500 BP Systolic 152 mm[Hg] Poonam Mae [facility] Internal Medicine Work Phone: Comment on above: Patient Position: Standing; Cuff Locatio n: Left Arm; Cuff Size: Large 12-04-2008 09:31-0500 Head Circumference 0 cm Teresita Ruiz [facility] Internal Medicine Work Phone: 12-04-2008 09:31-0500 Head Occipital-frontal circumference 0 cm Poonam Carmelita [facility]; [facility] Work Phone: 12-04-2008 09:31-0500 Height 0 cm Poonam Carmelita [facility] Internal Medicine Work Phone: 12-04-2008 09:31-0500 Pulse (Heart Rate) 76 /min Poonam Mae [facility] Internal Medicine Work Phone: Comment on above: Pattern: Regular 12-04-2008 09:31-0500 Respiratory Rate 18 /min Poonam Tonglaverne [facility] Internal Medicine Work Phone: Comment on above: Pattern: Undefined 10-02-2008 11:44-0500 Body Temperature 97.4 [degF] Poonam Tonglaverne [facility] Internal Medicine Work Phone: Comment on above: Method: Undefined 10-02-2008 11:44-0500 Body weight 114.31 kg Poonam Tonglaverne [facility] Internal Medicine Work Phone: 10-02-2008 11:44-0500 BP Diastolic 70 mm[Hg] Poonam Carmelita [facility] Internal Medicine Work Phone: Comment on above: Patient Position: Sitting; Cuff Location : Left Arm; Cuff Size: Large 10-02-2008 11:44-0500 BP Systolic 150 mm[Hg] Poonam Tonglaverne [facility] Internal Medicine Work Phone: Comment on above: Patient Position: Sitting; Cuff Location : Left Arm; Cuff Size: Large 10-02-2008 11:44-0500 Head Circumference 0 cm [facility] Internal Medicine Work Phone: 10-02-2008 11:44-0500 Head Occipital-frontal circumference 0 cm Poonam Carmelita [facility] Internal [facility]; [facility] Work Phone: 10-02-2008 11:44-0500 Height 0 cm Poonam Carmelita [facility] Internal Medicine Work Phone: 10-02-2008 11:44-0500 Pulse (Heart Rate) 84 /min Ponoam Mae [facility] Internal Medicine Work Phone: Comment on above: Pattern: Regular 10-02-2008 11:44-0500 Respiratory Rate 18 /min Poonam Carmelita [facility] Internal Medicine Work Phone: Comment on above: Pattern: Undefined 08-21-2008 16:43-0400 Body Temperature 97.1 [degF] Poonam Carmelita [facility] Internal Medicine Work Phone: Comment on above: Method: Undefined 08-21-2008 16:43-0400 Body weight 116.58 kg Poonam Carmelita [facility] Internal Medicine Work Phone: 08-21-2008 16:43-0400 BP Diastolic 72 mm[Hg] Poonam Carmelita [facility] Internal Medicine Work Phone: Comment on above: Patient Position: Sitting; Cuff Location : Right Arm; Cuff Size: Large 08-21-2008 16:43-0400 BP Systolic 146 mm[Hg] Poonam Carmelita [facility] Internal Medicine Work Phone: Comment on above: Patient Position: Sitting; Cuff Location : Right Arm; Cuff Size: Large 08-21-2008 16:43-0400 Head Circumference 0 cm [facility] Internal Medicine Work Phone: 08-21-2008 16:43-0400 Head Occipital-frontal circumference 0 cm Poonam Carmelita [facility] Internal Medicine; [facility] Internal Medicine Work Phone: 08-21-2008 16:43-0400 Height 0 cm Poonam Mae [facility] Internal Medicine Work Phone: 08-21-2008 16:43-0400 Pulse (Heart Rate) 80 /min Poonam Mae Comprehens[facility] Internal Medicine Work Phone: Comment on above: Pattern: Regular 08-21-2008 16:43-0400 Respiratory Rate 18 /min Poonam Mae [facility] Internal Medicine Work Phone: Comment on above: Pattern: Undefined 07-25-2008 14:16-0400 Body Temperature 97.9 [degF] Poonam Mae [facility] Internal Medicine Work Phone: Comment on above: Method: Undefined 07-25-2008 14:16-0400 Body weight 113.4 kg Poonam Mae [facility] Internal Medicine Work Phone: 07-25-2008 14:16-0400 BP Diastolic 52 mm[Hg] Poonam Mae [facility] Internal Medicine Work Phone: Comment on above: Patient Position: Sitting; Cuff Location : Left Arm; Cuff Size: Large 07-25-2008 14:16-0400 BP Systolic 154 mm[Hg] Poonam Mae [facility] Internal Medicine Work Phone: Comment on above: Patient Position: Sitting; Cuff Location : Left Arm; Cuff Size: Large 07-25-2008 14:16-0400 Head Circumference 0 cm Teresita Ruiz [facility] Internal Medicine Work Phone: 07-25-2008 14:16-0400 Head Occipital-frontal circumference 0 cm Poonam Mae [facility]; [facility] Work Phone: 07-25-2008 14:16-0400 Height 0 cm Poonam Mae [facility] Internal Medicine Work Phone: 07-25-2008 14:16-0400 Pulse (Heart Rate) 76 /min Poonam Mae Comprehensiv e Internal Medicine Work Phone: Comment on above: Pattern: Regular 07-25-2008 14:16-0400 Respiratory Rate 18 /min Poonam Mae [facility] Internal Medicine Work Phone: Comment on above: Pattern: Undefined 07-03-2008 11:22-0400 BMI (Body Mass Index) 44.5 kg/m2 [place] LPN [facility] Internal Medicine Work Phone: 07-03-2008 11:22-0400 Body Temperature 97.6 [degF] [place] LPN [facility] Internal Medicine Work Phone: Comment on above: Method: Oral 07-03-2008 11:22-0400 Body weight 113.94 kg La Cross LPN [facility] Work Phone: 07-03-2008 11:22-0400 BP Diastolic 64 mm[Hg] La Cross LPN [facility] Work Phone: Comment on above: Patient Position: Sitting; Cuff Location : Left Arm; Cuff Size: Standard 07-03-2008 11:22-0400 BP Systolic 124 mm[Hg] La Cross LPN [facility] Internal Medicine Work Phone: Comment on above: Patient Position: Sitting; Cuff Location : Left Arm; Cuff Size: Standard 07-03-2008 11:22-0400 BSA (Body Surface Area) 2.13 m2 La Cross LPN [facility] Work Phone: 07-03-2008 11:22-0400 Head Circumference 0 cm Teresita Ruiz [facility] Internal [facility] Work Phone: 07-03-2008 11:22-0400 Head Occipital-frontal circumference 0 cm La Cross LPN [facility]; [facility] Work Phone: 07-03-2008 11:22-0400 Height 160.02 cm La Cross LPN [facility] Work Phone: 07-03-2008 11:22-0400 Pulse (Heart Rate) 74 /min La Cross LPN [facility] Internal Medicine Work Phone: Comment on above: Pattern: Regular 07-03-2008 11:22-0400 Pulse Oximetry 96 % Teresita Ruiz [facility] Medicine Work Phone: Comment on [...] 08:55-0400 Pulse (Heart Rate) 72 /min La Tay BENNETT [facility] Work Phone: Comment on above: Pattern: Regular 06-26-2008 08:55-0400 Pulse Oximetry 96 % Teresita Ruiz [facility] Work Phone: Comment on above: Room air 06-26-2008 08:55-0400 Respiratory Rate 18 /min La Tay BENNETT [facility] Work Phone: Comment on above: Pattern: Unlabored 06-26-2008 08:55-0400 SaO2% (BldA) [Mass fraction] 96 % La Tay BENNETT [facility]; [facility] Work Phone: Comment on above: Room air Encounters Encounter Date Encounter Type Care Provider Facility Start: 09-14-2025 ambulatory Efewongbe Oleghe [facility] Start: 08-25-2025 ambulatory E[facility]ongbe Oleghe [facility] Start: 06-16-2025 ambulatory Efewongbe Oleghe Facili ty:[facility] Start: 06-13-2025 ambulatory Elkin Avila O[facility] Facil ity:[facility] Start: 06-13-2025 Registered Referred Elkin Avila MD - [facility] Start: 06-10-2025 Non-patient / Non-visit Dr. Todd Lane DO [facility] Work Phone: Start: 06-09-2025 Non-patient / Non-visit Dr. Todd Lane [facility] Work Phone: Start: 06-08-2025 Non-patient / Non-visit Dr. Todd Lane [facility] Work Phone: Start: 06-08-2025 ambulatory Efewongbe Oleghe Facili [facility] Start: 06-08-2025 Non-patient / Non-visit Dr. She Lentz MD -[facility] Start: 06-07-2025 Non-patient / Non-visit Dr. Jana Reardon MD -[facility] Work Phone: Start: 06-06-2025 ambulatory Efewongbe Oleghe [facility]ili [facility] Start: 06-06-2025 End: 06-10-2025 Evaluation and management of inpatient Dr. Jana Reardon MD -[facility] Work Phone: Start: 05-29-2025 End: 06-15-[address] Joel Judge MD -Laboratory [facility] n Work Phone: Start: 05-29-[address] Joel Judge MD -Laboratory [facility] Work Phone: Start: 05-29-2025 End: 06-15-[address] Joel Judge MD Work Phone: -Laboratory [place] Start: 05-29-2025 End: 05-29-[address] Terrell Schafer MD -[facility] Work Phone: Start: 05-29-2025 End: 05-29-[address] Terrell Schafer MD Work Phone: -[facility] Start: 05-08-2025 ambulatory Efewrigobertobe [facility] Start: 05-08-2025 Non-patient / Non-[facility] Work Phone: Start: 04-24-2025 ambulatory Efewongbe Oleesperanzae Fac[facility] Start: 04-24-2025 Non-patient / Non-visit Dr. Terrell [facility] Work Phone: Start: 04-17-2025 ambulatory Efewrigobertobe Oleghdori Facili ty:[facility] Start: 04-17-2025 Non-patient / Non-visit Dr. Terrell [facility] Work Phone: Start: 03-13-2025 End: 03-13-2025 Patient encounter procedure Nati ESTRADA -[facility] Work Phone: Start: 03-13-2025 End: 03-13-2025 ambulatory Efewongbe Oleghe Facility:[facility] Start: 02-20-2025 End: 03-15-[address] Joel Judge MD -Laboratory Work Phone: Start: 02-20-2025 End: 03-15-2025 ambulatory Joel Judge Facility:[facility] Start: 02-13-2025 End: 02-13-2025 Patient encounter procedure Elkin ESTRADA -[facility] Work Phone: Start: 02-13-2025 End: 02-13-2025 ambulatory Efewongbe Oleghe [facility] Start: 02-08-2025 End: 02-08-[address] Terrell Schafer MD -[facility] Work Phone: Start: 02-08-2025 End: 02-08-2025 ambulatory Efewongbe Oleghe Facility:[facility] Start: 01-29-2025 ambulatory Efewongbe Oleghe Facili [facility] Start: 01-29-2025 Non-patient / Non-visit Dr. Terrell Schafer MD -[facility] Work Phone: Start: 01-16-2025 ambulatory E[facility]ongbe Oleghe [facility] Start: 01-05-2025 ambulatory Efewongbe Oleghe [facility] Start: 12-27-2024 ambulatory E[facility]ongbe Oleghe [facility] Start: 11-25-2024 ambulatory E[facility]be Oleghe [facility] Start: 11-10-2024 End: 11-10-2024 ambulatory Joel Judge Facility:[facility] Start: 11-07-2024 End: 11-07-2024 ambulatory Efewongbe Oleghe Facility:[facility] Start: 11-07-2024 ambulatory Efewongbe Oleghe Fac[facility] Start: 10-11-2024 ambulatory Efewongbe Oleghe [facility]ili [facility] Start: 09-19-2024 End: 10-15-2024 ambulatory Efewongbe Oleghe Facility:[facility] Start: 09-15-2024 End: 09-15-2024 ambulatory Terrell Schafer [facility] Start: 09-05-2024 ambulatory Terrell Schafer Facili [facility] Start: 08-22-2024 End: 08-23-2024 ambulatory Manolo Morejon Facility:[facility] Start: 08-15-2024 ambulatory Terrell Schafer Facili [facility] Start: 08-04-2024 End: 08-04-2024 ambulatory Terrell Schafer Facility:[facility] Start: 07-31-2024 ambulatory Terrell Schafer [facility] Start: 07-28-2024 End: 07-28-2024 ambulatory Terrell Schafer [facility] Start: 07-25-2024 ambulatory No Primary Car e Physician Facility:[facility] Start: 07-11-2024 End: 07-11-2024 ambulatory No Primary Care Physician Facility:[facility] Start: 07-03-2024 ambulatory No Primary Car e Physician Facility:[facility] Start: 10-07-2021 End: 10-07-2021 Office outpatient visit 10 minutes Teresita Bucknerdaya HARRISON Work Phone: [facility] Start: 09-27-2021 End: 09-27-2021 Office outpatient visit 10 minutes Teresita Bucknerdaya CRM TECHNICAL LEAD Work Phone: [facility] Start: 09-13-2021 End: 09-13-2021 Lab Order Teresita Sitadaya HARRISON Work Phone: [facility] Start: 09-13-2021 End: 09-13-2021 Office outpatient visit 25 minutes Teresita Bucknerdaya CRM TECHNICAL LEAD Work Phone: [facility] Start: 07-12-2021 End: 07-12-2021 Office outpatient visit 25 minutes Teresita Bucknerdaya CRM TECHNICAL LEAD Work Phone: [facility] Start: 06-10-2021 End: 06-10-2021 Office outpatient visit 25 minutes Teresita Bucknerdaya CRM TECHNICAL LEAD Work Phone: [facility] Start: 03-11-2021 End: 03-11-2021 Office outpatient visit 25 minutes Teresita Ruiz CRM TECHNICAL LEAD Work Phone: [facility] Start: 03-11-2021 Review Teresita Ruiz CRM TECHNICAL LEAD Work Phone: [facility] Start: 02-27-2021 End: 02-27-2021 Annotation/Addendum Teresita Ruiz [facility] Start: 02-27-2021 End: 02-27-2021 Office outpatient visit 25 minutes Teresita Bucknerdaya [facility] Start: 11-28-2020 End: 11-28-2020 Office outpatient visit 25 minutes Teresita Ruiz [facility] Start: 11-08-2020 End: 11-08-2020 Annotation/Addendum Teresita Ruiz [facility] Start: 11-06-2020 End: 11-06-2020 Office outpatient visit 15 minutes Teresita Bucknerdaya [facility] Start: 10-16-2020 End: 10-16-2020 Office outpatient visit 15 minutes Teresita Hurleyevaristodaya [facility] Start: 10-16-2020 Review Teresita Ruiz [facility] Start: 07-16-2020 End: 07-16-2020 Office outpatient visit 25 minutes Teresita Ruiz [facility] Start: 05-01-2020 End: 05-01-2020 Annotation/Addendum Teresita Ruiz [facility] Start: 04-16-2020 End: 04-16-2020 Annotation/Addendum Teresita Ruiz [facility] Start: 04-16-2020 End: 04-16-2020 Annotation/Addendum Teresita Ruiz [facility] Start: 04-13-2020 End: 04-13-2020 Annotation/Addendum Teresita Ruiz [facility] Start: 04-13-2020 End: 04-13-2020 Office outpatient visit 25 minutes Teresita Ruiz [facility] Start: 04-13-2020 End: 04-13-2020 Patient encounter procedure Teresita Ruiz Work Phone: [facility] Start: 03-28-2020 End: 03-28-2020 Annotation/Addendum Teresita Ruiz [facility] Start: 03-27-2020 End: 03-27-2020 Office outpatient visit 15 minutes Teresita Ruiz [facility] Start: 02-21-2020 End: 02-21-2020 Office outpatient visit 25 minutes Teresita Ruiz [facility] Start: 01-09-2020 End: 01-09-2020 Office outpatient visit 15 minutes Teresita Hurleyevaristodaya [facility] Start: 01-02-2020 End: 01-02-2020 Annotation/Addendum Teresita Meievaristodaya [facility] Start: 01-02-2020 End: 01-02-2020 Office outpatient visit 25 minutes Teresita [facility] Start: 12-27-2019 End: 12-27-2019 Office outpatient new 45 minutes Teresita [facility] Start: 04-20-2019 End: 04-20-2019 Telephone encounter Liver Txp Coordinator Work Phone: [facility] Start: 06-14-2010 End: 06-14-2010 Patient encounter procedure Teresita [facility] Start: 09-03-2009 End: 09-03-2009 Patient encounter procedure Teresita Ruiz [facility] Start: 06-04-2009 End: 06-05-2009 Patient encounter procedure Teresita Ruiz [facility] Start: 03-05-2009 End: 03-05-2009 Patient encounter procedure Teresita Ruiz [facility] Start: 01-17-2009 End: 01-17-2009 Patient encounter procedure Teresita [facility] Start: 01-05-2009 End: 01-05-2009 Phone Encounter Teresita Sitadaya [facility] Start: 12-11-2008 End: 12-11-2008 Patient encounter procedure Teresita Hurleyevaristodaya [facility] Start: 12-04-2008 End: 12-04-2008 Patient encounter procedure Teresita [facility] Start: 10-02-2008 End: 10-02-2008 Patient encounter procedure Teresita [facility]ila [facility] Start: 08-28-2008 End: 08-28-2008 Nursing evaluation of patient and report Teresita Hurleyevaristodaya [facility] Start: 08-21-2008 End: 08-21-2008 Patient encounter procedure Teresita Avila [facility] Start: 07-25-2008 End: 07-26-2008 Patient encounter procedure Teresita [facility]ila [facility] Start: 07-03-2008 End: 07-03-2008 Office outpatient visit 15 minutes Teresita Avila [facility] Start: 06-26-2008 End: 06-26-2008 Office outpatient visit 25 minutes Teresita Ruiz [facility] Patient encounter procedure Dante Salmon LPN [facility]; [facility] Work Phone: Patient encounter procedure Madison Greer LPN [facility]; [facility] Work Phone: Patient encounter procedure Madison Greer UNIT COORDINATOR [facility]; [facility] Work Phone: Procedures Date Procedure Procedure Detail Performing Clinician Start: 06-10-[address] Trerell Schafer MD Work Phone: Start: 06-07-2025 CT of head without contrast Dr. Terrell Schafer MD Work Phone: Start: 06-07-2025 CT angiography of head and neck Dr. Terrell Schafer MD Work Phone: Start: 06-07-2025 Legionella pneumophila antigen assay Dr. Terrell Schafer MD Work Phone: Start: 06-07-2025 Streptococcus [address] antigen assay Dr. Terrell Schafer MD Work Phone: Start: 06-07-2025 Plain chest X-ray Dr. Terrell Schafer MD Work Phone: Start: 06-07-2025 Streptococcus pneumoniae antigen assay Dr. Terrell Schafer MD Work Phone: Start: 06-06-2025 Plain chest X-ray Dr. Terrell Schafer MD Work Phone: Start: 06-06-[address] Terrell Schafer MD Work Phone: Start: 06-06-2025 Urnls dip stick/tablet reagent auto microscopy Dr. Terrell Schafer MD Work Phone: Start: 06-06-2025 CT of head without contrast Dr. Terrell Schafer MD Work Phone: Start: 06-06-[address] acid assay [address] Terrell Schafer MD Work Phone: Start: 06-06-[address] Joel Judge MD Work Phone: Start: 06-06-[address] Terrell Schafer MD Work Phone: Start: 06-06-[address] Terrell Schafer MD Work Phone: Start: 01-02-2022 End: 01-02-2022 Chest 1 View (Portable) Comments: See Note; NOTES: [facility] Imaging Services [address] [place] [address] Chest 1 View (Portable) MR#: [id number] Acct: [id number] Name: VASILE MILLER Rep #: [id number] : 1940 F 81 From: Ramakrishna washington MD PCP: Teresita Ruiz ASSISTANT PROGRAM MANAGER-C Status: REG ER Study: Chest 1 View (Portable) Date of Exam: 01/02/22 Exam# [id number] Ordering Dr: Hira Leone DO STUDY: X-RAY [...] CC: SEAN Ruiz; Dr. Hira Leone DO Bulk Filler: Signed Teresita Ruiz CRM TECHNICAL LEAD Work Phone: Start: 01-02-2022 End: 01-06-2022 12 Lead EKG Comments: See Note; NOTES: [facility] Cardiovascular Services [address] [place] [address] 12 Lead EKG 01/02/22 1007 MR#: [id number] Acct: [id number] Name: VASILE MILLER Rep #: [id number] : 1940 81 From: She Lentz MD [...] consider lateral ischemia Abnormal ECG Confirmed by TOR WEBB, LAILA ([id number]), offline editor MING JOHNSON ([id number]) on 01/06/2022 1:26:51 PM Referred By: AL Confirmed By:TANO LENTZ MD 01/06/22 1326 Date She Lentz MD CC: SEAN Ruiz; Dr. Hira Leone DO Signed Teresita Ruiz CRM TECHNICAL LEAD Work Phone: Start: 01-02-2022 End: 01-02-2022 Emergency Department Summary Comments: See Note; NOTES: [facility] Medical Records Department [address] [place] [address] Emergency Department Summary 01/02/22 MR#: [id number] Acct: [id number] Name: VASILE MILLER Rep #: [id number] : 1940 81 From: Hira Leone DO [...] states she started feeling better after this. [facility] Medical History Aortic stenosis with bicuspid valve [...] Unknown] pen needle, diabetic 32 gauge x " #400 ea 10/09/20 [Rx Last Taken Unknown] [...] 75.9 H Lymph % (Auto) 10.2 L [place] % (Auto) 11.4 H Eos % (Auto) [...] (Auto) Neut % (Auto) Lymph % (Auto) [place] % (Auto) Eos % (Auto) Baso % [...] Ultra-Fine Kimber Pen Needle] 32 gauge x 5/32" needle See Rx Instructions .ROUTE .MEDSUPPLY Qty: [...] Teresita Ruiz NP Referrals: Teresita Ruiz NP, ASSISTANT PROGRAM MANAGER-C [Primary Care Provider] - 3-5 Days Disposition Disposition: Home, Self Care What to do if you have Problems For any increased pain, shortness of breath, bleeding, nausea or vomiting, chest pain, or any unexpected problems, contact your Primary Care Provider. Call [facility] ([phone]) or report to the closest Emergency Room. Call 911 if necessary. 01/02/22 1544 <Electronically signed by Hira Leone DO> Cosigner Signature (if applicable): CC: SEAN Ruiz Signed Teresita Ruiz CNP Work Phone: Start: 09-13-2021 End: 09-13-2021 Knee 4 or More Views Comments: See Note; NOTES: [facility] Radiology [address] [address] Knee 4 or More Views MR#: [id number] Acct: [id number] Name: VASILE MILLER Rep #: [id number] : 1940 F 80 From: Maximo Vargas MD PCP: SEAN Palencia Status: DEP AMB Study: Knee 4 or More Views Date of Exam: 09/13/21 Exam# [id number] Ordering Dr: Teresita Ruiz NP STUDY: X-RAY [...] 12:47 EDT , Service support , CC: SEAN Riuz Bulk Filler: Signed Teresita Ruiz CNP Work Phone: Start: 05-07-2021 End: 05-07-2021 Cardiology Visit Report Comments: See Note; NOTES: [facility] [address] [place] [address] OFFICE VISIT Date of Service: 05/07/21 MR#: [id number] Acct: [id number] Name: VASILE MILLER Rep #: [id number] : 1940 Provider: Dr. Joel Judge MD Age/Sex: 80/F Location: [facility] Status: Signed HPI HPI History of Present [...] 05/07/21] pen needle, diabetic 32 gauge x 32" #400 ea 10/09/20 [Rx Confirmed 05/07/21] warfarin [...] 05/07/21] Ejection fraction %: 50 to 54 [facility] Medical History Aortic stenosis with bicuspid valve [...] updated, as necessary. Follow Up: 8 Months (jhr) Coding Level of Care Code Off vis,est,level [...] MD Cosigner Signature: Date (if applicable) CC: ASSISTANT PROGRAM MANAGER-C Teresita Ruiz CRM TECHNICAL LEAD Work Phone: Start: 02-27-2021 End: 02-28-2021 Shoulder min 2 Views Comments: See Note; NOTES: [facility] [address] [place] [address] Shoulder min 2 Views MR#: [id number] Acct: [id number] Name: VASILE MILLER Rep #: [id number] : 1940 F 80 From: Ramakrishna washington MD PCP: SEAN Palencia Status: DEP AMB Study: Shoulder min 2 Views Date of Exam: 02/27/21 Exam# [id number] Ordering Dr: Teresita Ruiz NP ASSISTANT PROGRAM MANAGER-C STUDY: X-RAY - LEFT SHOULDER REASON FOR [...] 14:10 EDT , Service support , CC: SEAN Ruiz Bulk Filler: Signed Teresita Ruiz Work Phone: Start: 10-26-2020 End: 10-26-2020 Echo Complete W/ Contrast Comments: See Note; NOTES: [facility] Cardiovascular Services [address] [facility] [place] [address] Echo Complete W/ Contrast 10/26/20 0956 MR#: [id number] Acct: [id number] Name: VASILE MILLER Rep #: [id number] : 1940 79 From: Joel Judge MD Attending Dr: SEAN Roca Status: [facility] Ordering Dr: Elkin Beltran NP, NP-C Date: 10/26/20 Location: [facility] Sex: F C Admitted: Reason For Study: [...] Ruiz Performed By: Nichole Rainey, NAEEM, RVT 10/26/201331 Date Joel Judge MD CC: SEAN Beltran; SEAN Ruiz Date Dictated: 10/26/20 0956 Date Transcribed: 10/26/201331 Bulk Filler: Signed Teresita Ruiz Start: 10-09-2020 End: 10-13-2020 Endocrinology Visit Report Comments: See Note; NOTES: [facility] [address] [place] [address] OFFICE VISIT Date of Service: 10/09/20 MR#: [id number] Acct: [id number] Name: VASILE MILLER Rep #: [id number] : 1940 Provider: Deonte Segura Age/Sex: 79/F Location: [facility] Status: Signed Intake Vital Signs 10/09/20 Height 5 ft 2 in 10/09/20 Weight: 233 lb 10/09/20 BP 130/78 H Intake Visit Reasons: blood sugar high Chief Complaint: Diabetes Allergies lisinopril Adverse Reaction (Severe, Verified 09/19/20 09:49) Cough liraglutide [From Victoza] Adverse Reaction (Verified 09/19/20 09:49) Other [facility] Medical History Other oil heaterman (current) drug therapy (Chronic) Hyperlipidemia (Chronic) Paroxysmal atrial fibrillation (Chronic) Bicuspid aortic valve (Chronic) Left ventricular hypertrophy (Chronic) Atherosclerotic heart disease of [place] coronary artery without angina pectoris (Chronic) Edema [...] does not try to answer my questions "I don't remember". She has had diabetes "about 30 years". She has known stage 3 CKD. She [...] ?Diabetes mellitus type: type 2 ?Diabetes mellitus oil heaterman insulin use: with chcf use ?Diabetes mellitus complication status: with kidney [...] BMI of 40.0-44.9, adult E66.01; Z68.41 10/13/20 6415 <Electronically signed by Michel Cobb MD> Date Michel Preciado Signature: Date (if applicable) CC: SEAN Lo Joseph Ruiz Start: 09-19-2020 End: 09-19-2020 Cardiology Visit Report Comments: See Note; NOTES: [facility] [address] [place] [address] OFFICE VISIT Date of Service: 09/19/20 MR#: [id number] Acct: [id number] Name: VASILE MILLER Rep #: [id number] : 1940 Provider: SEAN palomino Age/Sex: 79/F Location: [facility] Status: Signed HPI HPI History of Present [...] Visit Reasons: overdue for f/up, med refills Console Assembler Required: No Accompanied by: None Is patient [...] Chloride [Slow-Mag] 71.5 mg PO DAILY #30 tablet. 12/26/14 [Rx Confirmed 09/19/20] Warfarin [Coumadin] 5 [...] PO QDAY tab 09/19/20 [History Confirmed 09/19/20] [facility] Medical History (Updated 01/01/18 @ 16:36 by Elkin Beltran NP, ASSISTANT PROGRAM MANAGER-C) Other chcf (current) drug therapy (Chronic) Hyperlipidemia (Chronic) Paroxysmal atrial fibrillation (Chronic) Bicuspid aortic valve (Chronic) Left ventricular hypertrophy (Chronic) Atherosclerotic heart disease of [place] coronary artery without angina pectoris (Chronic) Edema (Chronic) Nonrheumatic aortic (valve) stenosis with insufficiency (Chronic) Shortness of breath (Chronic) Atypical chest pain (Chronic) Rapid atrial fibrillation (Chronic) Diabetes (Chronic) Atrial fibrillation (Chronic) Dyslipidemia (Chronic) HTN (hypertension) (Chronic) Morbid obesity with BMI of 40.0-44.9, adult (Chronic) Surgical History (Updated 12/31/17 @ 13:36 by Elkin Beltran ASSISTANT PROGRAM MANAGER, ASSISTANT PROGRAM MANAGER-C) History of appendectomy (Chronic) History of cholecystectomy (Chronic) History of hysterectomy (Chronic) Family History (Updated 12/31/17 @ 13:35 by Elkin Beltran ASSISTANT PROGRAM MANAGER, ASSISTANT PROGRAM MANAGER-C) Father CAD (coronary artery disease) Brother Diabetes Sister Diabetes Breast cancer Hyperlipidemia Hypertension Grandmother CVA (cerebral vascular accident) Grandfather Sudden cardiac Son Atrial fibrillation Social History (Updated 09/19/20 @ 12:10 by Elkin Beltran ASSISTANT PROGRAM MANAGER, ASSISTANT PROGRAM MANAGER-C) Smoking Status: Never smoker ROS Const Const: [...] prior to saving. Follow Up 6 Months (PONY RIDE OPERATOR) Coding Level of Care Code Off vis,est,level [...] Cosigner Signature: Date (if applicable) CC: SEAN Ruiz Teresita Ruiz Start: 05-01-2020 End: 05-01-2020 Dexa Bone Density Study Comments: See Note; NOTES: [facility] Imaging Services [address] [place] [address] Dexa Bone Density Study MR#: [id number] Acct: [id number] Name: VASILE MILLER Rep #: [id number] : 1940 F 79 From: Ramakrishna washington MD PCP: SEAN Palencia Status: REG CLI Study: Dexa Bone Density Study Date of Exam: 05/01/20 Exam# [id number] Ordering Dr: Teresita Ruiz STUDY: DUAL ENERGY X-RAY ABSORPTIOMETRY / DXA REASON FOR EXAM: Female, 79 years old. TYPE CASTER-SURGIAL- PT UNSURE OF AGE -- HX OF [...] , Service support , CC: SEAN Ruiz Bulk Filler: Signed Teresita Ruiz Work Phone: Start: 05-01-2020 End: 05-01-2020 SCREEN MAMM (CAD) W/LOLA BILAT Comments: See Note; NOTES: [facility] Imaging Services [address] [place] [id number] SCREEN MAMM (CAD) W/LOLA BILAT MR#: [id number] Acct: [id number] Name: VASILE MILLER Rep #: [id number] : 1940 F 79 From: Ramakrishna washington MD PCP: SEAN Palencia Status: [facility] Study: SCREEN MAMM (CAD) W/LOLA BILAT Date of Exam: 0 05/01/20 Exam# [id number] Ordering Dr: Teresita Ruiz ASSISTANT PROGRAM MANAGERAminah MAMMOGRAPHY - BILATERAL SCREENING REASON FOR EXAM: [...] delay biopsy of a clinically suspicious abnormality. [id number] Electronically Signed: Ramakrishna Sainz, at 13:59 EDT , Service support , CC: SEAN Ruiz Bulk Filler: Signed Teresita Ruiz Work Phone: Start: 10-02-2017 End: 10-02-2017 Follow Up Appt 3 months Deonte Lopez Start: 10-02-2017 End: 10-02-2017 JHDylan Judge MD Start: 03-27-2017 End: 03-27-2017 RUMA [...] PA-C Work Phone: Start: 05-09-2015 End: 05-09-2015 NÉSTOR Díaz PA-C Work Phone: Start: 01-31-2015 End: 02-01-2015 Documentation of current medications Joel Judge MD Start: 01-31-2015 End: 01-31-2015 Follow Up Appt 3 months Deonte Lopez Start: 01-31-2015 End: 01-31-2015 MMDeonte Judge MD Start: 08-09-2014 End: 08-09-2014 PONY RIDE OPERATOR Rohini Díaz PA-C Work Phone: Start: 08-09-2014 End: 08-09-2014 Follow Up Appt 6 months Rohini Díaz PA-C Work Phone: Start: 02-07-2014 End: 02-14-2014 Echocardiography Joel Judge MD Start: 02-07-2014 End: 02-07-2014 Follow Up Appt 6 months Deonte Lopez Start: 02-07-2014 End: 02-07-2014 MMM Joel Judge MD Start: 03-11-2013 End: 06-20-2013 *Hepatic Function Panel Deonte Lopez Start: 03-11-2013 End: 06-20-2013 Lipid 1996 panel - Serum or Plasma Joel Judge MD Start: 02-04-2013 End: 02-04-2013 PONY RIDE OPERATOR Joel Judge MD Start: 02-04-2013 End: 02-04-2013 Follow Up Appt 1 year Joel Judge MD Start: 06-29-2012 End: 07-23-2012 48 hour holter monitor Joel Judge MD Start: 06-29-2012 End: 08-09-2014 Follow Up Appt 6 months Deonte Lopez Appendectomy Appendectomy Teresita Ciesa Appendectomy Appendectomy Teresita Ciesa Appendectomy Appendectomy Teresita Ciesa Appendectomy Appendectomy Teresita Ciesa Appendectomy Appendectomy Teresita Ciesa Appendectomy Appendectomy Dante Salmon LP N Appendectomy Appendectomy Madison Percy LP N Appendectomy Appendectomy Madison Percy LP N Cholecystectomy Cholecystectomy (Gall Bladder Removal) Teresita Ciesa Cholecystectomy Cholecystectomy (Gall Bladder Removal) Teresita Ciesa Cholecystectomy Cholecystectomy (Gall Bladder Removal) Teresita Ciesa Cholecystectomy Cholecystectomy (Gall Bladder Removal) Teresita Ciesa Cholecystectomy Cholecystectomy (Gall Bladder Removal) Teresita Ciesa Cholecystectomy Cholecystectomy (Gall Bladder Removal) Dante Salmon UNIT COORDINATOR Cholecystectomy Cholecystectomy (Gall Bladder Removal) Madison Slarb UNIT COORDINATOR Cholecystectomy Cholecystectomy (Gall Bladder Removal) Madison Slarb UNIT COORDINATOR H/O: hysterectomy History of hysterectomy Dante Salmon LPN Comment on above: she thinks total H/O: hysterectomy History of hysterectomy Teresita Sitaa CRM TECHNICAL LEAD Work Phone: H/O: hysterectomy History of hysterectomy Madison Greer LPN Comment on above: she thinks total H/O: hysterectomy History of hysterectomy Madison Greer LPN Comment on above: she thinks total Plan of Treatment Date Care Activity Detail Author Start: 06-10-2025 Patient discharge [facility] Start: 06-07-2025 [facility] Start: 06-06-2025 Following clinical pathway protocol [facility] Start: 06-06-2025 Aspiration precautions [facility] Start: 06-06-2025 Assessment of risk of venous thromboembolism [facility] Start: 06-06-2025 Care regimes management [facility] Start: 06-06-2025 Fall prevention [facility] Start: 06-06-2025 Inhalation therapy procedure [facility] Start: 06-06-2025 Insertion of catheter into peripheral vein [facility] Start: 06-06-2025 Introduction of urinary catheter [facility] Start: 06-06-2025 Measuring intake and output [facility] Start: 06-06-2025 Methicillin resistant Staphylococcus aureus screening test [facility] Start: 06-06-2025 Notification of physician [facility] Start: 06-06-2025 Oxygen therapy [facility] Start: 06-06-2025 Providing care according to standard [facility] Start: 06-06-2025 Provision of activity privileges [facility] Start: 06-06-2025 Referral to occupational therapist [facility] Start: 06-06-2025 Referral to service [facility] Start: 06-06-2025 End: 06-06-2025 [facility] Start: 06-06-2025 Verification routine [facility] Start: 06-06-2025 Hospital admission, emergency, from emergency room, medical nature [facility] Start: 06-06-2025 Legionella pneumophila Ag [Presence] in Urine [facility] Start: 06-06-2025 Respiratory pathogens DNA and RNA panel - Respiratory specimen by [facility] with probe detection [facility] Start: 06-06-2025 Streptococcus pneumoniae antigen assay [facility] Start: 06-06-2025 Admission procedure [facility] Start: 06-06-2025 End: 06-06-2025 [facility] Start: 06-06-2025 Bacteria identified in Blood by Culture Blood Culture [facility] Start: 06-06-2025 Bacteria identified in Urine by Culture Urine Culture [facility] Start: 06-06-2025 Blood culture Blood Culture [facility] Start: 06-06-2025 Patient referral to dietitian [facility] Start: 11-27-2021 Prothrombin time PT (PROTHROMBIN TIME) ([id number]) [facility]; [facility] Work Phone: Start: 11-27-2021 PT Coag (PPP) [Time] PT (PROTHROMBIN TIME) ([id number]) [facility] Work Phone: Start: 11-20-2021 Prothrombin time PT (PROTHROMBIN TIME) ([id number]) [facility]; [facility] Work Phone: Start: 11-20-2021 PT Coag (PPP) [Time] PT (PROTHROMBIN TIME) ([id number]) [facility] Work Phone: Start: 11-13-2021 Prothrombin time PT (PROTHROMBIN TIME) (36050) [facility]; [facility] Work Phone: Start: 11-13-2021 PT Coag (PPP) [Time] PT (PROTHROMBIN TIME) ([id number]) [facility] Work Phone: Start: 11-06-2021 Prothrombin time PT (PROTHROMBIN TIME) ([id number]) [facility]; [facility] Work Phone: Start: 11-06-2021 PT Coag (PPP) [Time] PT (PROTHROMBIN TIME) ([id number]) [facility] Work Phone: Start: 10-30-2021 Prothrombin time PT (PROTHROMBIN TIME) (85036) [facility]; [facility] Work Phone: Start: 10-30-2021 PT Coag (PPP) [Time] PT (PROTHROMBIN TIME) ([id number]) [facility] Work Phone: Start: 10-23-2021 Prothrombin time PT (PROTHROMBIN TIME) ([id number]) [facility]; [facility] Work Phone: Start: 10-23-2021 PT Coag (PPP) [Time] PT (PROTHROMBIN TIME) ([id number]) [facility] Work Phone: Start: 10-16-2021 Prothrombin time PT (PROTHROMBIN TIME) ([id number]) [facility]; [facility] Work Phone: Start: 10-16-2021 PT Coag (PPP) [Time] PT (PROTHROMBIN TIME) ([id number]) [facility] Work Phone: Start: 10-09-2021 Prothrombin time PT (PROTHROMBIN TIME) ([id number]) [facility]; [facility] Work Phone: Start: 10-09-2021 PT Coag (PPP) [Time] PT (PROTHROMBIN TIME) ([id number]) [facility] Work Phone: Start: 10-07-2021 Procedure Education Eprescribed prescriptions (G8553) [facility]; [facility] Work Phone: Start: 10-02-2021 Prothrombin time PT (PROTHROMBIN TIME) ([id number]) [facility]; [facility] Work Phone: Start: 10-02-2021 PT Coag (PPP) [Time] PT (PROTHROMBIN TIME) ([id number]) [facility] Work Phone: Start: 09-27-2021 Procedure Education Eprescribed prescriptions (G8553) [facility]; [facility] Work Phone: Start: 09-27-2021 Provider Instructions for Treatment [facility] Work Phone: Start: 09-25-2021 Prothrombin time PT (PROTHROMBIN TIME) ([id number]) [facility]; [facility] Work Phone: Start: 09-25-2021 PT Coag (PPP) [Time] PT (PROTHROMBIN TIME) ([id number]) [facility] Work Phone: Start: 09-18-2021 Prothrombin time PT (PROTHROMBIN TIME) (23623) [facility]; [facility] Work Phone: Start: 09-18-2021 PT Coag (PPP) [Time] PT (PROTHROMBIN TIME) ([id number]) [facility] Work Phone: Start: 09-13-2021 Procedure Education Eprescribed prescriptions (G8553) [facility]; [facility] Work Phone: Start: 09-13-2021 Provider Instructions for Treatment 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 2 weeks for knee injection ?gel one With Dr. Graves [facility]; [facility] Work Phone: Start: 09-13-2021 Prothrombin time PT (PROTHROMBIN TIME) (26640) [facility]; [facility] Work Phone: Start: 09-11-2021 Prothrombin time PT (PROTHROMBIN TIME) ([id number]) [facility]; [facility] Work Phone: Start: 09-11-2021 PT Coag (PPP) [Time] PT (PROTHROMBIN TIME) ([id number]) [facility] Work Phone: Start: 09-04-2021 Prothrombin time PT (PROTHROMBIN TIME) ([id number]) [facility]; [facility] Work Phone: Start: 09-04-2021 PT Coag (PPP) [Time] PT (PROTHROMBIN TIME) ([id number]) [facility] Work Phone: Start: 08-28-2021 Prothrombin time PT (PROTHROMBIN TIME) ([id number]) [facility]; [facility] Work Phone: Start: 08-28-2021 PT Coag (PPP) [Time] PT (PROTHROMBIN TIME) (11520) [facility] Work Phone: Start: 08-21-2021 Prothrombin time PT (PROTHROMBIN TIME) ([id number]) [facility]; [facility] Work Phone: Start: 08-21-2021 PT Coag (PPP) [Time] PT (PROTHROMBIN TIME) ([id number]) [facility] Work Phone: Start: 08-14-2021 Prothrombin time PT (PROTHROMBIN TIME) (60815) [facility]; [facility] Work Phone: Start: 08-14-2021 PT Coag (PPP) [Time] PT (PROTHROMBIN TIME) ([id number]) [facility] Work Phone: Start: 08-07-2021 Prothrombin time PT (PROTHROMBIN TIME) ([id number]) [facility]; [facility] Work Phone: Start: 08-07-2021 PT Coag (PPP) [Time] PT (PROTHROMBIN TIME) ([id number]) [facility] Work Phone: Start: 07-31-2021 Prothrombin time PT (PROTHROMBIN TIME) ([id number]) [facility]; [facility] Work Phone: Start: 07-31-2021 PT Coag (PPP) [Time] PT (PROTHROMBIN TIME) ([id number]) [facility] Work Phone: Start: 07-24-2021 Prothrombin time PT (PROTHROMBIN TIME) ([id number]) [facility]; [facility] Work Phone: Start: 07-24-2021 PT Coag (PPP) [Time] PT (PROTHROMBIN TIME) ([id number]) [facility] Work Phone: Start: 07-17-2021 Prothrombin time PT (PROTHROMBIN TIME) ([id number]) [facility]; [facility] Work Phone: Start: 07-17-2021 PT Coag (PPP) [Time] PT (PROTHROMBIN TIME) ([id number]) [facility] Work Phone: Start: 07-12-2021 Procedure Education Eprescribed prescriptions (G8553) [facility]; [facility] Work Phone: Start: 07-12-2021 Provider Instructions for Treatment [facility]; [facility] Work Phone: Start: 07-10-2021 Prothrombin time PT (PROTHROMBIN TIME) ([id number]) [facility]; [facility] Work Phone: Start: 07-10-2021 PT Coag (PPP) [Time] PT (PROTHROMBIN TIME) ([id number]) [facility] Work Phone: Start: 07-03-2021 Prothrombin time PT (PROTHROMBIN TIME) ([id number]) [facility]; [facility] Work Phone: Start: 07-03-2021 PT Coag (PPP) [Time] PT (PROTHROMBIN TIME) ([id number]) [facility] Work Phone: Start: 06-26-2021 Prothrombin time PT (PROTHROMBIN TIME) ([id number]) [facility]; [facility] Work Phone: Start: 06-26-2021 PT Coag (PPP) [Time] PT (PROTHROMBIN TIME) ([id number]) [facility] Work Phone: Start: 06-19-2021 Prothrombin time PT (PROTHROMBIN TIME) ([id number]) [facility]; [facility] Work Phone: Start: 06-19-2021 PT Coag (PPP) [Time] PT (PROTHROMBIN TIME) ([id number]) [facility] Work Phone: Start: 06-12-2021 Prothrombin time PT (PROTHROMBIN TIME) ([id number]) [facility]; [facility] Work Phone: Start: 06-12-2021 PT Coag (PPP) [Time] PT (PROTHROMBIN TIME) ([id number]) [facility] Work Phone: Start: 06-10-2021 Procedure Education Eprescribed prescriptions (G8553) [facility]; [facility] Work Phone: Start: 06-10-2021 Urine albumin quantitative MICROALBUMIN: CREATININE RATIO (93995) AND (72875) [facility]; [facility] Work Phone: Start: 06-05-2021 Prothrombin time PT (PROTHROMBIN TIME) (94068) [facility]; [facility] Work Phone: Start: 06-05-2021 PT Coag (PPP) [Time] PT (PROTHROMBIN TIME) ([id number]) [facility] Work Phone: Start: 05-29-2021 Prothrombin time PT (PROTHROMBIN TIME) (72572) [facility]; [facility] Work Phone: Start: 05-29-2021 PT Coag (PPP) [Time] PT (PROTHROMBIN TIME) ([id number]) [facility] Work Phone: Start: 05-22-2021 Prothrombin time PT (PROTHROMBIN TIME) ([id number]) [facility]; [facility] Work Phone: Start: 05-22-2021 PT Coag (PPP) [Time] PT (PROTHROMBIN TIME) ([id number]) [facility] Work Phone: Start: 05-15-2021 Prothrombin time PT (PROTHROMBIN TIME) (41309) [facility]; [facility] Work Phone: Start: 05-15-2021 PT Coag (PPP) [Time] PT (PROTHROMBIN TIME) ([id number]) [facility] Work Phone: Start: 05-08-2021 PT Coag (PPP) [Time] PT (PROTHROMBIN TIME) ([id number]) [facility] Work Phone: Start: 05-08-2021 Prothrombin time PT (PROTHROMBIN TIME) ([id number]) [facility]; [facility] Work Phone: Start: 05-01-2021 Prothrombin time PT (PROTHROMBIN TIME) (78559) [facility]; [facility] Work Phone: Start: 05-01-2021 PT Coag (PPP) [Time] PT (PROTHROMBIN TIME) ([id number]) [facility] Work Phone: Start: 04-24-2021 Prothrombin time PT (PROTHROMBIN TIME) (14759) [facility]; [facility] Work Phone: Start: 04-24-2021 PT Coag (PPP) [Time] PT (PROTHROMBIN TIME) ([id number]) [facility] Work Phone: Start: 04-17-2021 Prothrombin time PT (PROTHROMBIN TIME) (30651) [facility]; [facility] Work Phone: Start: 04-17-2021 PT Coag (PPP) [Time] PT (PROTHROMBIN TIME) ([id number]) [facility] Work Phone: Start: 04-10-2021 Prothrombin time PT (PROTHROMBIN TIME) (27079) [facility]; [facility] Work Phone: Start: 04-10-2021 PT Coag (PPP) [Time] PT (PROTHROMBIN TIME) ([id number]) [facility] Work Phone: Start: 04-03-2021 Prothrombin time PT (PROTHROMBIN TIME) (13843) [facility]; [facility] Work Phone: Start: 04-03-2021 PT Coag (PPP) [Time] PT (PROTHROMBIN TIME) (51133) [facility] Work Phone: Start: 03-27-2021 Prothrombin time PT (PROTHROMBIN TIME) (30392) [facility]; [facility] Work Phone: Start: 03-27-2021 PT Coag (PPP) [Time] PT (PROTHROMBIN TIME) (65711) [facility] Work Phone: Start: 03-20-2021 Prothrombin time PT (PROTHROMBIN TIME) ([id number]) [facility]; [facility] Work Phone: Start: 03-20-2021 PT Coag (PPP) [Time] PT (PROTHROMBIN TIME) ([id number]) [facility] Work Phone: Start: 03-13-2021 Prothrombin time PT (PROTHROMBIN TIME) ([id number]) [facility]; [facility] Work Phone: Start: 03-13-2021 PT Coag (PPP) [Time] PT (PROTHROMBIN TIME) (05945) [facility] Work Phone: Start: 03-11-2021 Procedure Education Eprescribed prescriptions (G8553) [facility]; [facility] Work Phone: Start: 03-11-2021 Provider Instructions for Treatment 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 3 months [facility]; [facility] Work Phone: Start: 03-06-2021 Prothrombin time PT (PROTHROMBIN TIME) ([id number]) [facility]; [facility] Work Phone: Start: 03-06-2021 PT Coag (PPP) [Time] PT (PROTHROMBIN TIME) (47816) [facility] Work Phone: Start: 02-27-2021 PT Coag (PPP) [Time] PT (PROTHROMBIN TIME) ([id number]) [facility] Work Phone: Start: 02-27-2021 Procedure Education Eprescribed prescriptions (G8553) [facility]; [facility] Work Phone: Start: 02-27-2021 Provider Instructions for Treatment [facility]; [facility] Work Phone: Start: 02-27-2021 PT Coag (PPP) [Time] PT (PROTHROMBIN TIME) (47937) [facility]; [facility] Work Phone: Start: 02-27-2021 25 hydroxy includes fractions if performed CALCIFEDIOL (95267) [facility]; [facility] Work Phone: Start: 02-27-2021 Blood count complete auto&auto difrntl wbc CBC, Platelets & Auto Diff (29449) [facility]; [facility] Work Phone: Start: 02-27-2021 Comprehensive metabolic panel Metabolic Panel, Comprehensive (25061) [facility]; [facility] Work Phone: Start: 02-27-2021 TSH Qn TSH (THYROID STIMULATING HORMONE) (59765) [facility]; [facility] Work Phone: Start: 02-27-2021 INR Coag (Bld) [Relative time] PT/INR, Office (83585) [facility]; [facility] Work Phone: Start: 02-27-2021 Prothrombin time PT/INR, Office (64173) [facility]; [facility] Work Phone: Start: 02-20-2021 Prothrombin time PT (PROTHROMBIN TIME) (74036) [facility]; [facility] Work Phone: Start: 02-20-2021 PT Coag (PPP) [Time] PT (PROTHROMBIN TIME) (70575) [facility] Work Phone: Start: 02-13-2021 Prothrombin time PT (PROTHROMBIN TIME) (70074) [facility]; [facility] Work Phone: Start: 02-13-2021 PT Coag (PPP) [Time] PT (PROTHROMBIN TIME) ([id number]) [facility] Work Phone: Start: 02-06-2021 Prothrombin time PT (PROTHROMBIN TIME) (36294) [facility]; [facility] Work Phone: Start: 02-06-2021 PT Coag (PPP) [Time] PT (PROTHROMBIN TIME) ([id number]) [facility] Work Phone: Start: 01-30-2021 Prothrombin time PT (PROTHROMBIN TIME) (70192) [facility]; [facility] Work Phone: Start: 01-30-2021 PT Coag (PPP) [Time] PT (PROTHROMBIN TIME) (59445) [facility] Work Phone: Start: 01-23-2021 Prothrombin time PT (PROTHROMBIN TIME) (53620) [facility]; [facility] Work Phone: Start: 01-23-2021 PT Coag (PPP) [Time] PT (PROTHROMBIN TIME) ([id number]) [facility] Work Phone: Start: 01-16-2021 Prothrombin time PT (PROTHROMBIN TIME) (01567) [facility]; [facility] Work Phone: Start: 01-16-2021 PT Coag (PPP) [Time] PT (PROTHROMBIN TIME) (13823) [facility] Work Phone: Start: 01-09-2021 Prothrombin time PT (PROTHROMBIN TIME) (11836) [facility]; [facility] Work Phone: Start: 01-09-2021 PT Coag (PPP) [Time] PT (PROTHROMBIN TIME) (42605) [facility] Work Phone: Start: 01-02-2021 Prothrombin time PT (PROTHROMBIN TIME) (99595) [facility]; [facility] Work Phone: Start: 01-02-2021 PT Coag (PPP) [Time] PT (PROTHROMBIN TIME) ([id number]) [facility] Work Phone: Start: 12-26-2020 Prothrombin time PT (PROTHROMBIN TIME) (25299) [facility]; [facility] Work Phone: Start: 12-26-2020 PT Coag (PPP) [Time] PT (PROTHROMBIN TIME) (53768) [facility] Work Phone: Start: 12-19-2020 Prothrombin time PT (PROTHROMBIN TIME) (13463) [facility]; [facility] Work Phone: Start: 12-19-2020 PT Coag (PPP) [Time] PT (PROTHROMBIN TIME) (76684) [facility] Work Phone: Start: 12-12-2020 Prothrombin time PT (PROTHROMBIN TIME) (79393) [facility]; [facility] Work Phone: Start: 12-12-2020 PT Coag (PPP) [Time] PT (PROTHROMBIN TIME) (82042) [facility] Work Phone: Start: 12-05-2020 Prothrombin time PT (PROTHROMBIN TIME) (37441) [facility]; [facility] Work Phone: Start: 12-05-2020 PT Coag (PPP) [Time] PT (PROTHROMBIN TIME) (39944) [facility] Work Phone: Start: 11-28-2020 Prothrombin time PT (PROTHROMBIN TIME) (77891) [facility]; [facility] Work Phone: Start: 11-28-2020 PT Coag (PPP) [Time] PT (PROTHROMBIN TIME) ([id number]) [facility] Work Phone: Start: 11-28-2020 Procedure Education Eprescribed prescriptions (G8553) [facility]; [facility] Work Phone: Start: 11-28-2020 Provider Instructions for Treatment [facility]; [facility] Work Phone: Start: 11-28-2020 Magnesium [Mass/Vol] MAGNESIUM (60176) [facility]; [facility] Work Phone: Start: 11-28-2020 Blood count complete auto&auto difrntl wbc CBC, Platelets & Auto Diff (68278) [facility]; [facility] Work Phone: Start: 11-28-2020 Comprehensive metabolic panel Metabolic Panel, Comprehensive (09601) [facility]; [facility] Work Phone: Start: 11-28-2020 TSH Qn TSH (THYROID STIMULATING HORMONE) (38841) [facility]; [facility] Work Phone: Start: 11-28-2020 Ova&parasites direct smears concentration & id OVA & PARASITE DIR SMEAR (22994) [facility]; [facility] Work Phone: Start: 11-28-2020 Blood occult peroxidase actv qual feces 1 deter OCCULT BLOOD FECES SCREEN (65544) [facility]; [facility] Work Phone: Start: 11-28-2020 Leukocyte assmt fecal qual/semiquantitative LEUKOCYTE COUNT, FECAL (38450) [facility]; [facility] Work Phone: Start: 11-28-2020 Culture bacterial any source anaerobic iso&id C-DIFFICILE, STOOL (52965) [facility]; [facility] Work Phone: Start: 11-28-2020 Cul bact stool aerobic isol salmonella&shigell FANI CULTURE-STOOL (67783) [facility]; [facility] Work Phone: Start: 11-28-2020 PT Coag (PPP) [Time] PT (PROTHROMBIN TIME) (74316) [facility]; [facility] Work Phone: Start: 11-21-2020 Prothrombin time PT (PROTHROMBIN TIME) (82578) [facility]; [facility] Work Phone: Start: 11-21-2020 PT Coag (PPP) [Time] PT (PROTHROMBIN TIME) (48366) [facility] Work Phone: Start: 11-14-2020 Prothrombin time PT (PROTHROMBIN TIME) (71122) [facility]; [facility] Work Phone: Start: 11-14-2020 PT Coag (PPP) [Time] PT (PROTHROMBIN TIME) (85625) [facility] Work Phone: Start: 11-07-2020 Prothrombin time PT (PROTHROMBIN TIME) (52913) [facility]; [facility] Work Phone: Start: 11-07-2020 PT Coag (PPP) [Time] PT (PROTHROMBIN TIME) (82592) [facility] Work Phone: Start: 11-06-2020 Procedure Education Eprescribed prescriptions (G8553) [facility]; [facility] Work Phone: Start: 11-06-2020 Provider Instructions for Treatment [facility]; [facility] Work Phone: Start: 11-06-2020 [place] influenza 2019 Novel Coronavirus (COVID-19), [facility] (74613) [facility]; [facility] Work Phone: Start: 10-31-2020 Prothrombin time PT (PROTHROMBIN TIME) (53665) [facility] Work Phone: Start: 10-31-2020 PT Coag (PPP) [Time] PT (PROTHROMBIN TIME) ([id number]) [facility] Work Phone: Start: 10-24-2020 PT Coag (PPP) [Time] PT (PROTHROMBIN TIME) (90392) [facility] Work Phone: Start: 10-24-2020 PT Coag (PPP) [Time] PT (PROTHROMBIN TIME) (25673) [facility]; [facility] Work Phone: Start: 10-17-2020 Prothrombin time PT (PROTHROMBIN TIME) (14724) [facility]; [facility] Work Phone: Start: 10-17-2020 PT Coag (PPP) [Time] PT (PROTHROMBIN TIME) (84502) [facility] Work Phone: Start: 10-16-2020 Procedure Education Eprescribed prescriptions (G8553) [facility] Work Phone: Start: 10-16-2020 Provider Instructions for Treatment 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 3 weeks front office assistant to call to set up [facility] Work Phone: Start: 10-16-2020 TSH Qn TSH (31739) [facility] Work Phone: Comment on above: Oct 30 Start: 10-16-2020 Comprehensive metabolic panel Metabolic Panel, Comprehensive (14432) [facility] Work Phone: Comment on above: Oct 30 Start: 10-16-2020 Lipid panel LIPID PANEL (39989) [facility] Work Phone: Comment on above: Oct 30 Start: 10-16-2020 PT Coag (PPP) [Time] PT (PROTHROMBIN TIME) (19618) [facility] Work Phone: Comment on above: Oct 30 Start: 10-10-2020 Prothrombin time PT (PROTHROMBIN TIME) (59881) [facility]; [facility] Work Phone: Start: 10-10-2020 PT Coag (PPP) [Time] PT (PROTHROMBIN TIME) (23037) [facility] Work Phone: Start: 10-03-2020 Prothrombin time PT (PROTHROMBIN TIME) (07181) [facility]; [facility] Work Phone: Start: 10-03-2020 PT Coag (PPP) [Time] PT (PROTHROMBIN TIME) (86359) [facility] Work Phone: Start: 09-26-2020 Prothrombin time PT (PROTHROMBIN TIME) (23767) [facility]; [facility] Work Phone: Start: 09-26-2020 PT Coag (PPP) [Time] PT (PROTHROMBIN TIME) (14463) [facility] Work Phone: Start: 09-19-2020 Prothrombin time PT (PROTHROMBIN TIME) (40214) [facility]; [facility] Work Phone: Start: 09-19-2020 PT Coag (PPP) [Time] PT (PROTHROMBIN TIME) (25372) [facility] Work Phone: Start: 09-12-2020 Prothrombin time PT (PROTHROMBIN TIME) (65944) [facility]; [facility] Work Phone: Start: 09-12-2020 PT Coag (PPP) [Time] PT (PROTHROMBIN TIME) (20645) [facility] Work Phone: Start: 09-05-2020 Prothrombin time PT (PROTHROMBIN TIME) (57619) [facility]; [facility] Work Phone: Start: 09-05-2020 PT Coag (PPP) [Time] PT (PROTHROMBIN TIME) (51623) [facility] Work Phone: Start: 08-29-2020 Prothrombin time PT (PROTHROMBIN TIME) (65053) [facility]; [facility] Work Phone: Start: 08-29-2020 PT Coag (PPP) [Time] PT (PROTHROMBIN TIME) (87716) [facility] Work Phone: Start: 08-22-2020 PT Coag (PPP) [Time] PT (PROTHROMBIN TIME) (11551) [facility] Work Phone: Start: 08-22-2020 PT Coag (PPP) [Time] PT (PROTHROMBIN TIME) (69353) [facility] Work Phone: Start: 08-15-2020 PT Coag (PPP) [Time] PT (PROTHROMBIN TIME) (99959) [facility] Work Phone: Start: 08-08-2020 PT Coag (PPP) [Time] PT (PROTHROMBIN TIME) (41838) [facility] Work Phone: Start: 08-01-2020 Prothrombin time PT (PROTHROMBIN TIME) (26840) [facility]; [facility] Work Phone: Start: 08-01-2020 PT Coag (PPP) [Time] PT (PROTHROMBIN TIME) (34660) [facility] Work Phone: Start: 07-25-2020 Prothrombin time PT (PROTHROMBIN TIME) (74636) [facility]; [facility] Work Phone: Start: 07-25-2020 PT Coag (PPP) [Time] PT (PROTHROMBIN TIME) (70374) [facility] Work Phone: Start: 07-18-2020 Prothrombin time PT (PROTHROMBIN TIME) (43399) [facility]; [facility] Work Phone: Start: 07-18-2020 PT Coag (PPP) [Time] PT (PROTHROMBIN TIME) (87035) [facility] Work Phone: Start: 07-16-2020 Procedure Education Eprescribed prescriptions (G8553) [facility] Work Phone: Start: 07-16-2020 Provider Instructions for Treatment 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 3 months [facility] Work Phone: Start: 07-16-2020 PT Coag (PPP) [Time] PT (PROTHROMBIN TIME) (35080) [facility] Work Phone: Start: 07-16-2020 Blood count complete auto&auto difrntl wbc CBC, Platelets & Auto Diff (97549) [facility] Work Phone: Start: 07-16-2020 TSH Qn TSH (99336) [facility] Work Phone: Start: 07-16-2020 Comprehensive metabolic panel Metabolic Panel, Comprehensive (80741) [facility] Work Phone: Start: 07-11-2020 Prothrombin time PT (PROTHROMBIN TIME) (12982) [facility]; [facility] Work Phone: Start: 07-11-2020 PT Coag (PPP) [Time] PT (PROTHROMBIN TIME) (23281) [facility] Work Phone: Start: 07-04-2020 Prothrombin time PT (PROTHROMBIN TIME) (15125) [facility]; [facility] Work Phone: Start: 07-04-2020 PT Coag (PPP) [Time] PT (PROTHROMBIN TIME) (49135) [facility] Work Phone: Start: 06-27-2020 Prothrombin time PT (PROTHROMBIN TIME) (10807) [facility]; [facility] Work Phone: Start: 06-27-2020 PT Coag (PPP) [Time] PT (PROTHROMBIN TIME) (69276) [facility] Work Phone: Start: 06-20-2020 PT Coag (PPP) [Time] PT (PROTHROMBIN TIME) (52352) [facility] Work Phone: Start: 06-13-2020 Prothrombin time PT (PROTHROMBIN TIME) (46002) [facility]; [facility] Work Phone: Start: 06-13-2020 PT Coag (PPP) [Time] PT (PROTHROMBIN TIME) (63207) [facility] Work Phone: Start: 06-06-2020 Prothrombin time PT (PROTHROMBIN TIME) (14951) [facility]; [facility] Work Phone: Start: 06-06-2020 PT Coag (PPP) [Time] PT (PROTHROMBIN TIME) (04542) [facility] Work Phone: Start: 05-30-2020 Prothrombin time PT (PROTHROMBIN TIME) (88657) [facility]; [facility] Work Phone: Start: 05-30-2020 PT Coag (PPP) [Time] PT (PROTHROMBIN TIME) (21744) [facility] Work Phone: Start: 05-23-2020 Prothrombin time PT (PROTHROMBIN TIME) (25281) [facility]; [facility] Work Phone: Start: 05-23-2020 PT Coag (PPP) [Time] PT (PROTHROMBIN TIME) (05680) [facility] Work Phone: Start: 05-16-2020 Prothrombin time PT (PROTHROMBIN TIME) (25188) [facility]; [facility] Work Phone: Start: 05-16-2020 PT Coag (PPP) [Time] PT (PROTHROMBIN TIME) (74517) [facility] Work Phone: Start: 05-09-2020 Prothrombin time PT (PROTHROMBIN TIME) (83606) [facility]; [facility] Work Phone: Start: 05-09-2020 PT Coag (PPP) [Time] PT (PROTHROMBIN TIME) (83096) [facility] Work Phone: Start: 05-02-2020 Prothrombin time PT (PROTHROMBIN TIME) (84001) [facility]; [facility] Work Phone: Start: 05-02-2020 PT Coag (PPP) [Time] PT (PROTHROMBIN TIME) (20550) [facility] Work Phone: Start: 04-25-2020 Prothrombin time PT (PROTHROMBIN TIME) (19013) [facility]; [facility] Work Phone: Start: 04-25-2020 PT Coag (PPP) [Time] PT (PROTHROMBIN TIME) (14551) [facility] Work Phone: Start: 04-18-2020 PT Coag (PPP) [Time] PT (PROTHROMBIN TIME) ([id number]) [facility] Work Phone: Start: 04-13-2020 Procedure Education Eprescribed prescriptions (G8553) [facility] Work Phone: Start: 04-13-2020 Provider Instructions for Treatment [facility] Work Phone: Start: 04-11-2020 PT Coag (PPP) [Time] PT (PROTHROMBIN TIME) ([id number]) [facility] Work Phone: Start: 04-04-2020 PT Coag (PPP) [Time] PT (PROTHROMBIN TIME) (64712) [facility] Work Phone: Start: 03-28-2020 PT Coag (PPP) [Time] PT (PROTHROMBIN TIME) ([id number]) [facility] Work Phone: Start: 03-27-2020 [...] id isolate ea urine URINE FANI CULTURE-IDENTIFICATN (61021) [facility] Work Phone: Start: 12-27-2019 Urnls dip stick/tablet rgnt non-auto w/o micrscp Urinalysis, Office (43065) [facility] Work Phone: Start: 12-27-2019 Prothrombin time PT (PROTHROMBIN TIME) (50331) [facility]; [facility] Work Phone: Comment on above: standing order Start: 12-27-2019 PT Coag (PPP) [Time] PT (PROTHROMBIN TIME) (31744) [facility] Work Phone: Comment on above: standing order Start: 01-01-2018 End: 01-01-2018 Appointment Appointment [facility] Work Phone: Start: 10-02-2017 End: 10-02-2017 *BMP *BMP [facility] Work Phone: Start: 10-02-2017 End: 10-02-2017 BNP *Brain Natriuretic Peptide BNP [facility] Work Phone: Start: 10-02-2017 End: 10-06-2017 Echocardiography Echocardiogram (complete) [facility] Work Phone: Start: 10-02-2017 End: 10-02-2017 Follow Up Appt 3 months Follow Up Appt 3 months [facility] Work Phone: Start: 10-02-2017 End: 10-02-2017 JHR JHR [facility] Work Phone: Start: 10-02-2017 End: 10-02-2017 Appointment Appointment [facility] Work Phone: Start: 03-27-2017 End: 03-27-2017 PONY RIDE OPERATOR PONY RIDE OPERATOR [facility] Work Phone: Start: 03-27-2017 End: 03-27-2017 Follow Up Appt 6 months Follow Up Appt 6 months [facility] Work Phone: Start: 09-25-2016 End: 03-20-2017 Follow Up Appt 6 months Follow Up Appt 6 months [facility] Work Phone: Start: 09-25-2016 End: 03-20-2017 MMM MMM [facility] Work Phone: Start: 05-14-2016 End: 03-20-2017 Magnesium *Magnesium [facility] Work Phone: Start: 04-15-2016 End: 04-16-2016 Magnesium *Magnesium [facility] Work Phone: Start: 03-18-2016 End: 03-18-2016 PONY RIDE OPERATOR PONY RIDE OPERATOR [facility] Work Phone: Start: 03-18-2016 End: 03-18-2016 Follow Up Appt 6 months Follow Up Appt 6 months [facility] Work Phone: Start: 09-18-2015 End: 03-05-2016 Follow Up Appt 6 months Follow Up Appt 6 months [facility] Work Phone: Start: 09-18-2015 End: 03-05-2016 MMM MMM [facility] Work Phone: Start: 06-26-2015 End: 03-05-2016 PONY RIDE OPERATOR PONY RIDE OPERATOR [facility] Work Phone: Start: 06-26-2015 End: 03-05-2016 Follow Up Appt 3 months Follow Up Appt 3 months [facility] Work Phone: Start: 05-09-2015 End: 05-09-2015 Follow Up Appt 6 weeks Follow Up Appt 6 weeks [facility] Work Phone: Start: 05-09-2015 End: 05-09-2015 MMM MMM [facility] Work Phone: Start: 01-31-2015 End: 01-31-2015 Follow Up Appt 3 months Follow Up Appt 3 months [facility] Work Phone: Start: 01-31-2015 End: 01-31-2015 MMM MMM [facility] Work Phone: Start: 08-09-2014 End: 08-09-2014 PONY RIDE OPERATOR PONY RIDE OPERATOR [facility] Work Phone: Start: 08-09-2014 End: 08-09-2014 Follow Up Appt 6 months Follow Up Appt 6 months [facility] Work Phone: Start: 02-07-2014 End: 02-07-2014 Echocardiography Echocardiogram (complete) [facility] Work Phone: Start: 02-07-2014 End: 02-07-2014 Follow Up Appt 6 months Follow Up Appt 6 months [facility] Work Phone: Start: 02-07-2014 End: 02-07-2014 MMM MMM [facility] Work Phone: Start: 03-11-2013 End: 06-20-2013 *Hepatic Function Panel *Hepatic Function Panel [facility] Work Phone: Start: 03-11-2013 End: 06-20-2013 Lipid panel [AGGREGATE] *Lipid Profile [facility] Work Phone: Start: 02-04-2013 End: 02-04-2013 PONY RIDE OPERATOR PONY RIDE OPERATOR [facility] Work Phone: Start: 02-04-2013 End: 02-04-2013 Follow Up Appt 1 year Follow Up Appt 1 year [facility] Work Phone: Start: 06-29-2012 End: 06-29-2012 48 hour holter monitor 48 hour holter monitor [facility] Work Phone: Start: 06-29-2012 End: 08-09-2014 Follow Up Appt 6 months Follow Up Appt 6 months [facility] Work Phone: Start: 06-14-2010 25 hydroxy includes fractions if performed Vitamin D Hydroxy (84141) [facility] Work Phone: Start: 06-14-2010 Urine albumin quantitative MICROALBUMIN: CREATININE RATIO (53387) AND (83682) [facility] Work Phone: Start: 06-14-2010 Blood count manual cell count each CBC WITH MANUAL DIFF (97226) [facility] Work Phone: Start: 06-14-2010 Comprehensive metabolic panel METABOLIC PANEL, COMPREHENSIVE (29187) [facility] Work Phone: Start: 06-14-2010 Lipid panel LIPID PANEL (15986) [facility] Work Phone: Start: 06-14-2010 Hepatic function panel HEPATIC FUNCTION PANEL (83075) [facility] Work Phone: Start: 09-03-2009 Provider Instructions for Treatment [facility] Work Phone: Start: 09-03-2009 25 hydroxy includes fractions if performed Vitamin D Hydroxy (54008) [facility] Work Phone: Start: 09-03-2009 Urine albumin quantitative MICROALBUMIN: CREATININE RATIO (58211) AND (87816) [facility] Work Phone: Start: 09-03-2009 Comprehensive metabolic panel METABOLIC PANEL, COMPREHENSIVE (19406) [facility] Work Phone: Start: 09-03-2009 Lipid panel LIPID PANEL (10791) [facility] Work Phone: Start: 06-04-2009 Provider Instructions for Treatment Diet and Exercise [facility] Work Phone: Start: 03-05-2009 Blood count manual cell count each CBC WITH MANUAL DIFF (40421) [facility] Work Phone: Start: 03-05-2009 Comprehensive metabolic panel METABOLIC PANEL, COMPREHENSIVE (43498) [facility] Work Phone: Start: 03-05-2009 Urine albumin quantitative MICROALBUMIN: CREATININE RATIO (33080) AND (46923) [facility] Work Phone: Start: 03-05-2009 25 hydroxy includes fractions if performed Vitamin D Hydroxy (69052) [facility] Work Phone: Start: 12-04-2008 Provider Instructions for Treatment Calcium Education (KF) [facility] Work Phone: Start: 08-21-2008 Lipid panel LIPID PANEL (04117) [facility] Work Phone: Start: 08-21-2008 Hepatic function panel HEPATIC FUNCTION PANEL (84962) [facility] Work Phone: Start: 07-25-2008 Urnls dip stick/tablet rgnt auto w/o microscopy URINALYSIS W/O MICRO (59183) [facility] Work Phone: Start: 07-25-2008 Urine albumin quantitative MICROALBUMIN: CREATININE RATIO (41237) AND (51502) [facility] Work Phone: Start: 07-03-2008 Provider Instructions for Treatment FOLLOW UP NEEDED [facility] Work Phone: Start: 06-26-2008 Patient Education Sore throat: diagnosis and treatment [facility] Work Phone: Start: 06-26-2008 Provider Instructions for Treatment [facility] Work Phone: Start: 06-26-2008 Cul bact xcpt urine blood/stool aerobic isol FANI CULTURE-OTHER (60874) [facility] Work Phone: CBC W Auto Different ial panel - Blood [facility] metabo lic 2000 panel - Serum or Plasma [facility] Prothrombin time [facility] Thyroid stimulating hormone measurement [facility] Urine culture [facility] Work Phone: [facility] [...] Immunizations Immunization Date Immunization Notes Care Provider [facility] 08-23-2024 influenza, high dose seasonal, preservative-free Dr. Terrell Schafer MD Work Phone: [facility] 08-16-2010 pneumococcal vaccine , unspecified formulation Dr. Terrell Schafer MD Work Phone: [facility] 08-28-2008 influenza, seasonal, injectable Teresita Ruiz [facility] Work Phone: Comment on above: lot # [id number]- [id number] 0.5mg Payers Date Payer Category Payer Private Health Insurance 2024 Self-pay 2024 Medicare [id number] 2024 Private Health Insurance [id number] Unknown Unknown [id number] 2.16.8 40.1.446154.3.579.2.462 Unknown [id number] 2.16.8 40.1.432274.3.579.2.462 Unknown [id number] 2.16.8 40.1.564293.3.579.2.462 Unknown [id number] 2.16.8 40.1.101861.3.579.2.462 Unknown [id number] 2.16.8 40.1.483061.3.579.2.462 Unknown [id number] 2.16.8 40.1.253905.3.579.2.462 Unknown [id number] 2.16.8 40.1.230063.3.579.2.462 Unknown [id number] 2.16.8 40.1.755342.3.579.2.462 Unknown [id number] 2.16.8 40.1.525711.3.579.2.462 Unknown [id number] 2.16.8 40.1.748261.3.579.2.462 Unknown [id number] 2.16.8 40.1.406298.3.579.2.462 Unknown [id number] 2.16.8 40.1.513290.3.579.2.462 Unknown [id number] 2.16.8 40.1.086327.3.579.2.462 Unknown [id number] 2.16.8 40.1.981633.3.579.2.462 Unknown [id number] 2.16.8 40.1.914235.3.579.2.462 Unknown [id number] 2.16.8 40.1.540587.3.579.2.462 Unknown [id number] 2.16.8 40.1.867994.3.579.2.462 Unknown [id number] 2.16.8 40.1.670310.3.579.2.462 Unknown [id number] 2.16.8 40.1.340855.3.579.2.462 Unknown [id number] 2.16.8 40.1.821212.3.579.2.462 Unknown [id number] 2.16.8 40.1.923336.3.579.2.462 Unknown [id number] 2.16.8 40.1.538748.3.579.2.462 Unknown [id number] 2.16.8 40.1.803155.3.579.2.462 Unknown [id number] 2.16.8 40.1.040348.3.579.2.462 Unknown [id number] 2.16.8 40.1.199426.3.579.2.462 Unknown [id number] 2.16.8 40.1.797136.3.579.2.462 Unknown [id number] 2.16.8 40.1.019262.3.579.2.462 Unknown [id number] 2.16.8 40.1.496505.3.579.2.462 Unknown [id number] 2.16.8 40.1.501636.3.579.2.462 Unknown [id number] 2.16.8 40.1.502951.3.579.2.462 Unknown [id number] 2.16.8 40.1.991129.3.579.2.462 Unknown [id number] 2.16.8 40.1.541340.3.579.2.462 Unknown [id number] 2.16.8 40.1.379983.3.579.2.462 Unknown [id number] 2.16.8 40.1.772118.3.579.2.462 Unknown [id number] 2.16.8 40.1.166580.3.579.2.462 Unknown [id number] 2.16.8 40.1.036091.3.579.2.462 Unknown [id number] 2.16.8 40.1.082931.3.579.2.462 Unknown [id number] 2.16.8 40.1.963323.3.579.2.462 Unknown [id number] 2.16.8 40.1.092600.3.579.2.462 Unknown [id number] 2.16.8 40.1.874195.3.579.2.462 Unknown [id number] 2.16.8 40.1.164303.3.579.2.462 Unknown [id number] 2.16.8 40.1.844569.3.579.2.462 Social History Date Type Detail Facility Caffeine Use Caffeine Use [facility] Work Phone: Comment on above: [employer] [facility] [employer] [facility] work Start: 1940 Sex Assigned At Not on file [facility] Start: 05-29-2025 End: 06-06-2025 Tobacco smoking status NHIS Never smoked tobacco (finding) [facility] Start: 12-24-2014 Alcohol Alcohol [facility] Start: 12-24-2014 Lives Lives [facility] Start: 07-25-2014 Tobacco Use Tobacco Use [facility] Start: 1940 Sex Assigned At Female W [facility] Procedure Code Equipment Code Equipment [...] Quantity: 150 {Strip} Refills: 3 Ordered: 02-Jan-2020 [place] LPN Start : 02-Jan-2020 Active Comments: [...] Quantity: 150 {Strip} Refills: 3 Ordered: 02-Jan-2020 Luis Antonio UNIT COORDINATORDante Quiroz Start : 02-Jan-2020 Active Comments: E11.65 Start: 01-02-2020 Comment on above: E11.65 Contour Test In Vitro Strip 1 (one) Each 4 times a day for 0 days Quantity: 150 {Strip} Refills: 3 Ordered: 02-Jan-2020 Luis Antonio UNIT COORDINATORDante Quiroz Start : 02-Jan-2020 Active Comments: E11.65 Start: 01-02-2020 Comment on above: E11.65 Contour Test In Vitro Strip 1 (one) Each 4 times a day for 0 days Quantity: 150 {Strip} Refills: 3 Ordered: 02-Jan-2020 Luis Antonio UNIT COORDINATORDante Quiroz Start : 02-Jan-2020 Active Comments: E11.65 Start: 01-02-2020 Comment on above: E11.65 Contour Test In Vitro Strip 1 (one) Each 4 times a day for 0 days Quantity: 150 {Strip} Refills: 3 Ordered: 02-Jan-2020 Luis Antonio UNIT COORDINATORDante Quiroz Start : 02-Jan-2020 Active Comments: E11.65 Start: 01-02-2020 Comment on above: E11.65 Contour Test In Vitro Strip 1 (one) Each 4 times a day for 0 days Quantity: 150 {Strip} Refills: 3 Ordered: 02-Jan-2020 Luis Antonio UNIT COORDINATORDante Quiroz Start : 02-Jan-2020 Active Comments: E11.65 Start: 01-02-2020 Comment on above: E11.65 Contour Test In Vitro Strip 1 (one) Each 4 times a day for 0 days Quantity: 150 {Strip} Refills: 3 Ordered: 16-Sep-2021 Teresita Ruiz CNP, CNP, Mary E Start : 16-Sep-2021 Active Comments: E11.65 Start: 09-16-2021 Comment on above: E11.65 FreeStyle Jerri 14 Day Sensor Miscellaneous as directed for 0 days Quantity: 2 {Strip} Refills: 0 Ordered: 18-Nov-2021 Teresita Ruiz CNP, CNP, Mary E Start : 18-Nov-2021 Active Comments: BILL UNDER MEDICARE PART B Start: 11-18-2021 Comment on above: BILL UNDER MEDICARE PART B Contour Test In Vitro Strip 1 (one) Each 4 times a day for 0 days Quantity: 150 {Strip} Refills: 3 Ordered: 16-Sep-2021 [employer] TECHNICAL LEAD, Arlet [employer] TECHNICAL LEAD, Arlet Start : 16-Sep-2021 Active Comments: E11.65 Start: 09-16-2021 Comment on above: E11.65 FreeStyle Jerri 14 Day Sensor Miscellaneous as directed for 0 days Quantity: 2 {Strip} Refills: 0 Ordered: 18-Nov-2021 [employer]a [employer] TECHNICAL LEAD, Arlet [employer] TECHNICAL LEAD, Arlet Start : 18-Nov-2021 Active Comments: BILL UNDER MEDICARE PART B Start: 11-18-2021 Comment on above: BILL UNDER MEDICARE PART B Contour Test In Vitro Strip 1 (one) Each 4 times a day for 0 days Quantity: 150 {Strip} Refills: 3 Ordered: 16-Sep-2021 [employer] TECHNICAL LEAD, Arlet [employer] TECHNICAL LEAD, Arlet Start : 16-Sep-2021 Active Comments: E11.65 Start: 09-16-2021 Comment on above: E11.65 FreeStyle Jerri 14 Day Sensor Miscellaneous as directed for 0 days Quantity: 2 {Strip} Refills: 0 Ordered: 29-Nov-2021 [employer] TECHNICAL LEAD, Arlet [employer] TECHNICAL LEAD, Arlet Start : 29-Nov-2021 Active Comments: BILL UNDER MEDICARE PART B Start: 11-29-2021 Comment on above: BILL UNDER MEDICARE PART B Contour Test In Vitro Strip 1 (one) Each 4 times a day for 0 days Quantity: 150 {Strip} Refills: 3 Ordered: 16-Sep-2021 [employer] TECHNICAL LEAD, Arlet [employer] TECHNICAL LEAD, Arlet Start : 16-Sep-2021 Active Comments: E11.65 Start: 09-16-2021 Comment on above: E11.65 FreeStyle Jerri 14 Day Sensor Miscellaneous as directed for 0 days Quantity: 2 {Strip} Refills: 0 Ordered: 29-Nov-2021 C[employer]a CRM TECHNICAL LEAD, Arlet [employer] TECHNICAL LEAD, Arlet Start : 29-Nov-2021 Active Comments: BILL UNDER MEDICARE PART B Start: 11-29-2021 Comment on above: BILL UNDER MEDICARE PART B Contour Test In Vitro Strip 1 (one) Each 4 times a day for 0 days Quantity: 150 {Strip} Refills: 3 Ordered: 16-Sep-2021 Sitaa HUNTER, Teresita Bucknera HUNTER, Teresita Meadows Start : 16-Sep-2021 Active Comments: E11.65 Start: 09-16-2021 Comment on above: E11.65 FreeStyle Jerri 14 Day Sensor Miscellaneous as directed for 0 days Quantity: 2 {Strip} Refills: 0 Ordered: 29-Nov-2021 Sitaa Teresita HARRISON E [employer] TECHNICAL LEAD, Teresita Meadows Start : 29-Nov-2021 Active Comments: BILL UNDER MEDICARE PART B Start: 11-29-2021 Comment on above: BILL UNDER MEDICARE PART B Contour Test In Vitro Strip 1 (one) Each 4 times a day for 0 days Quantity: 150 {Strip} Refills: 3 Ordered: 16-Sep-2021 Sitaa Teresita HARRISONa Teresita HARRISON Start : 16-Sep-2021 Active Comments: E11.65 Start: 09-16-2021 Comment on above: E11.65 FreeStyle Jerri 14 Day Sensor Miscellaneous as directed for 0 days Quantity: 2 {Strip} Refills: 0 Ordered: 29-Nov-2021 Cievaristoa Teresita HARRISON E Ciesa [employer] TECHNICAL LEAD, Teresita Meadows Start : 29-Nov-2021 Active Comments: BILL UNDER MEDICARE PART B Start: 11-29-2021 Comment on above: BILL UNDER MEDICARE PART B Contour Test In Vitro Strip 1 (one) Each 4 times a day for 0 days Quantity: 150 {Strip} Refills: 3 Ordered: 16-Sep-2021 Sitaa Teresita HARRISON E Sitaa HUNTER, Teresita Meadows Start : 16-Sep-2021 Active Comments: E11.65 Start: 09-16-2021 Comment on above: E11.65 FreeStyle Jerri 14 Day Sensor Miscellaneous as directed for 0 days Quantity: 2 {Strip} Refills: 0 Ordered: 29-Nov-2021 Sitaa Teresita HARRISON E Sitaa Teresita HARRISON Start : 29-Nov-2021 Active Comments: BILL UNDER MEDICARE PART B Start: 11-29-2021 Comment on above: BILL UNDER MEDICARE PART B Contour Test In Vitro Strip 1 (one) Each 4 times a day for 0 days Quantity: 150 {Strip} Refills: 3 Ordered: 16-Sep-2021 Joseph HARRISON, Teresita Ruiz CNP, Teresita Meadows Start : 16-Sep-2021 Active Comments: E11.65 Start: 09-16-2021 Comment on above: E11.65 FreeStyle Jerri 14 Day Sensor Miscellaneous as directed for 0 days Quantity: 2 {Strip} Refills: 0 Ordered: 29-Nov-2021 Joseph HARRISON, Arlet Joseph HARRISON, Teresita Meadows [...] Ultra-Fine Kimber Pen Needle) 32 gauge x 5/32" needle Start: 10-09-2020 Blood Sugar Diagnostic (Freestyle Lite Strips) strip Start: 02-23-2025 Lancets (Freesty le Lancets) 28 gauge misc Start: 02-23-2025 Pen Needle, Diab etic (Bd Ultra-Fine Kimber Pen Needle) 32 gauge x 5/32" needle Start: 10-09-2020 Blood Sugar Diagnostic (Freestyle Lite Strips) strip Start: 02-23-2025 End: 06-10-2025 Lancets (Freesty le Lancets) 28 gauge misc Start: 02-23-2025 End: 06-10-2025 Pen Needle, Diab etic (Bd Ultra-Fine Kimber Pen Needle) 32 gauge x 5/32" needle Start: 10-09-2020 End: 06-10-2025 Blood Sugar Diagnostic (Freestyle Lite Strips) strip Start: 02-23-2025 End: 06-10-2025 Lancets (Freesty le Lancets) 28 gauge misc Start: 02-23-2025 End: 06-10-2025 Pen Needle, Diab etic (Bd Ultra-Fine Kimber Pen Needle) 32 gauge x 5/32" needle Start: 10-09-2020 End: 06-10-2025 Goals Date Patient Goal Desired Activity /State Functional Status Date Assessment Result Facility 06-10-2025 Functional status Ambulates;Nikko r;Bathroom Privilege [facility] Work Phone: Mental Status Date Assessment Result Facility 06-10-2025 Cognitive function Voice/Name [facility] Work Phone: 06-06-2025 Cognitive function Voice/Name [facility] Work Phone: Clinical Notes 08-23-2024 to 06-10-2025 Note Date & Type Note Facility 06-10-2025 Discharge summary Note Date/Time June 10, 2025 3:10pm [facility] Medical Records Department [address] [place] [address] Transfer to Extended Care MR#: [id number] Acct: [id number] Name: VASILE MILLER Rep #:[id number] : 1940 84 From: Todd Lane DO PCP: Dr. Terrell Schafer MD Status:A DM IN Certification of patient admission REQUIRED AT TIME OF ADMISSION. I CERTIFY THAT POST-HOSPITAL ECF SERVICES ARE REQUIRED TO BE GIVEN ON AN IN-PATIENT BASIS BECAUSE OF THE ABOVE NAMED PATIENT'S NEED FOR SNF CARE ON A CONTINUING BASIS FOR THE CONDITION(S) FOR WHICH HE/SHE WAS RECEIVING IN-PATIENT HOSPITAL SERVICES PRIOR TO HIS/HER TRANSFER TO THE ECF. 06/10/25 1510<Electronically signed by Todd Lane DO> Diet Diet Order/Speech Therapy: INPATIENT Hospital Diet / Speech Therapy Order(s) 06/06/25 22:07 Diet: Cardiac: Calorie-Controlled Food consistency:: Regular Liquid Consistency:: Regular/Thin Dietary Modifications:: Consistent Carbohydrate Type of Dietary Supplement:: 8oz Glucerna w/ Breakfast Diet Comments: Caffeine, MSG, Wheat Allergy How many daily calories?: 1800 calorie Routine Orders/Code Status Code Status: DNRCC-A (No intubation) DC O2, CPAP, BIPAP needs Home O2 Discharge instructions: No Wound(s) RLE: Wound Type: Laceration Therapies Weight Bearing: Full weight bearing Physical Therapy: Eval and Treat Occupational Therapy: Eval and Treat Problem/Diagnosis (1) Chronic a-fib: Status: Chronic Code(s): I48.20 - Chronic atrial fibrillation, unspecified (2) History of dementia: Status: Acute Code(s): Z86.59 - Personal history of other mental and behavioral disorders Plan 1. Altered mental tnbnto-lzpcefci-ajwf hypoxia and generalized debility-I feel the patient does have an element of congestive heart failure, I have transitioned her Lasix over to oral and placed her on potassium. We are awaiting preapproval for her to go to a [place] [facility] [place] facility #2 paroxysmal atrial fibrillation-patient is on Coumadin currently and metoprolol #3 chronic dementia-complicates care, management, recovery, and prognosis #4 valvular heart disease-patient has a bioprosthetic aortic valve #5 hypothyroidism-patient will remain on Synthroid #6 essential hypertension-patient will remain on her present medications #7 hyperlipidemia-patient will remain on her statin #8 congestive heart failure with normal ejection fraction continue Lasix #9 mild pulmonary hypertension-continue Lasix Total clinical time spent by myself addressing the patient's medical issues, reviewing all of her data, and collaborating with the patient's care team: 35 minutes Allergies/Procedures Done in Hospital Allergies acetaminophen (From Excedrin Migraine) Allergy (Intermediate, Verified 06/06/25 18:06) headache aspirin Allergy (Intermediate, Verified 06/06/25 18:06) headache caffeine (From Excedrin Migraine) Allergy (Intermediate, Verified 06/06/25 18:06) headache mold (mold spores) Allergy (Intermediate, Verified 06/06/25 18:06) respiratory distress lisinopril Adverse Reaction (Severe, Verified 06/06/25 18:06) Cough monosodium glutamate (msg) Adverse Reaction (Intermediate, Verified 06/06/25 18:06) PT UNSURE OF REACTION wheat Adverse Reaction (Intermediate, Verified 06/06/25 18:06) PT UNSURE OF REACTION liraglutide (From Victoza) Adverse Reaction (Verified 06/06/25 18:06) Other Procedures: 2-D Echocardiogram Type of Care/Length of Stay Estimated LOS: Convalescent Care Less Than 30 days Type of Care Needed: Skilled Rehab Potential: Good Prognosis: Good Additional Orders/Day of Discharge H&P will serve as current which was dated: 06/06/25 Day of Discharge: 06/10/25 Dietary and Speech Recommendations Dietitian Recommendations/Changes: Will continue 1800 calorie/consistent carbohydrate; cardiac. Caffeine, MSG and Wheat Allergy Will add 240mL glucerna shake w/ breakfast tray. Additional ONS as PO better established with meals. Discharge Plan Admission Admit Date/Time: 06/06/25 20:15 Primary Reason for Your Visit: Altered mental status, congestive heart failure, hypoxia Attending Provider: Todd Lane Primary Care Provider: Terrell Schafer Consulting Providers: Jana Reardon Discharge Orders/Prescriptions Prescriptions: New furosemide 40 mg Tablet 40 mg PO BIDLX Qty: 0 0RF acetaminophen 325 mg Tablet 650 mg PO Q4H PRN PRN (Reason: Fever, pain 1-10/10) Qty: 0 0RF insulin lispro [Humalog KwikPen Insulin] 100 unit/mL Insulin Pen See Protocol subcut ACHS Qty: 15 0RF Protocol: 3. Sliding Scale Insulin Med Dosing Condition: 150-189 mg/dl = 1 unit Condition: 190-229 mg/dl = 2 units Condition: 230-269 mg/dl = 3 units Condition: 270-309 mg/dl = 4 units Condition: 310-349 mg/dl = 5 units Condition: 350-399 mg/dl = 6 units Condition: 400-449 mg/dl = 7 units Condition: Greater than 449 call physician Protocol Text: - Use for Total Daily Dose of Insulin 37-55 units - Obsese, infected, or steroid patients MEDIUM DOSING ALGORITHIM menthol-zinc oxide [Calmoseptine] 0.44-20.6 % Ointment 1 applic topical 4X/DAY Qty: 0 0RF Protocol: *Topical Application Instructions APPLICATION INSTRUCTIONS: apply to affected region Rx Instructions: Apply to affected areas as needed 4 times a day sennosides-docusate sodium [Stimulant Laxative Plus] 8.6-50 mg Tablet 2 tab PO BID PRN PRN (Reason: Constipation) Qty: 0 0RF potassium chloride 20 mEq Tablet,Er Particles/Crystals 20 meq PO BIDCM Qty: 0 0RF nystatin 100,000 unit/gram Powder 1 applic topical TID Qty: 0 0RF Protocol: *Topical Application Instructions APPLICATION INSTRUCTIONS: to affected regions warfarin 6 mg tablet 6 mg PO DAILY Qty: 1 0RF Continued (DME) Dexcom G7 Regional [employer] Misc See Rx Instructions .Route Rx Instructions: As directed ergocalciferol (vitamin D2) 1,250 mcg (50,000 unit) capsule 50,000 unit PO QWEEK Qty: 20 1RF losartan 100 mg tablet 100 mg PO DAILY Qty: 90 3RF atorvastatin 40 mg tablet 40 mg PO DAILY Qty: 90 3RF gabapentin 100 mg capsule 100 mg PO TID alendronate 70 mg tablet 70 mg PO QWEEK magnesium chloride 71.5 MG tablet,delayed release (DR/EC) 143 mg PO DAILY metoprolol tartrate 100 mg tablet 100 mg PO BID Qty: 180 3RF levothyroxine 25 mcg tablet 25 mcg PO QDAY Qty: 90 0RF Discontinued (DME) pen needle, diabetic [BD Ultra-Fine Kimber Pen Needle] 32 gauge x 5/32" needle See Rx Instructions .ROUTE .MEDSUPPLY Qty: 400 4RF Rx Instructions: 4 times daily hydrochlorothiazide 25 mg tablet 25 mg PO DAILY Qty: 90 3RF trolamine salicylate [Myoflex] 10 % cream 1 applic topical DAILY PRN (Reason: ARTHRITIS ) glucagon HCl [Glucagon (HCl) Emergency Kit] 1 mg recon soln 1 mg subcut Q20M PRN (Reason: HYPOGLYCEMIA ) Rx Instructions: until target blood sugar attained nystatin 100,000 unit/gram powder 1 applic topical BID PRN (Reason: FUNGAL INFECTION ) cetirizine 5 mg tablet 5 mg PO DAILY acetaminophen 500 mg tablet 1,000 mg PO BID PRN (Reason: pain/fever) ascorbic acid (vitamin C) 1,000 mg capsule 1 g PO QDAY warfarin 5 mg tablet 5 mg PO QDAY Protocol: Dose Management Condition: Thursday Dose/Route: 8 mg Instruction: 2 x 4 mg tablets Condition: Thursday Dose/Route: 8 mg Instruction: 2 x 4 mg tablets Condition: Thursday Dose/Route: 10 mg Instruction: 2 x 5 mg tablets Condition: Thursday Dose/Route: 8 mg Instruction: 2 x 4 mg tablets Condition: Dose/Route: 8 mg Instruction: 2 x 4 mg tablets Condition: Thursday Dose/Route: 8 mg Instruction: 2 x 4 mg tablets Condition: Thursday Dose/Route: 8 mg Instruction: 2 x 4 mg tablets Protocol Text: Adjustment Start Date: Thursday05/30/25 INR Value: 1.8 INR Date: 05/29/25 Recheck Date: 06/13/25 furosemide 20 mg tablet 20 mg PO DAILY Qty: 90 3RF tizanidine 2 mg capsule 2 mg PO Q8H PRN (Reason: muscle spasticity) warfarin 1 mg tablet 1 mg PO 3XW Protocol: Dose Management Condition: Thursday Dose/Route: 8 mg Instruction: 2 x 4 mg tablets Condition: Thursday Dose/Route: 8 mg Instruction: 2 x 4 mg tablets Condition: Thursday Dose/Route: 10 mg Instruction: 2 x 5 mg tablets Condition: Thursday Dose/Route: 8 mg Instruction: 2 x 4 mg tablets Condition: Dose/Route: 8 mg Instruction: 2 x 4 mg tablets Condition: Thursday Dose/Route: 8 mg Instruction: 2 x 4 mg tablets Condition: Thursday Dose/Route: 8 mg Instruction: 2 x 4 mg tablets Protocol Text: Adjustment Start Date: Thursday05/30/25 INR Value: 1.8 INR Date: 05/29/25 Recheck Date: 06/13/25 oxycodone 5 mg capsule 5 mg PO BID PRN (Reason: pain) insulin degludec [Tresiba FlexTouch U-100] 100 unit/mL (3 mL) insulin pen 16 unit subcut BID Fiasp FlexTouch U-100 Insulin 100 unit/mL (3 mL) insulin pen 20 unit subcut TID Qty: 18 5RF clotrimazole-betamethasone 1-0.05 % cream 1 applic TOPICAL BID PRN (Reason: FUNGAL INFECTION ) ketoconazole 2 % shampoo 1 applic topical UD PRN (Reason: FUNGAL INFECTION ) Rx Instructions: APPLY SHAMPOO TOPICALLY TWICE A WEEK NEEDED ketoconazole 2 % cream 1 applic topical DAILY PRN (Reason: FUNGAL INFECTION ) warfarin 4 mg tablet 4 mg PO .COMPLEX Qty: 180 3RF Protocol: Dose Management Condition: Thursday Dose/Route: 8 mg Instruction: 2 x 4 mg tablets Condition: Thursday Dose/Route: 8 mg Instruction: 2 x 4 mg tablets Condition: Thursday Dose/Route: 10 mg Instruction: 2 x 5 mg tablets Condition: Thursday Dose/Route: 8 mg Instruction: 2 x 4 mg tablets Condition: Dose/Route: 8 mg Instruction: 2 x 4 mg tablets Condition: Thursday Dose/Route: 8 mg Instruction: 2 x 4 mg tablets Condition: Thursday Dose/Route: 8 mg Instruction: 2 x 4 mg tablets Protocol Text: Adjustment Start Date: Thursday05/30/25 INR Value: 1.8 INR Date: 05/29/25 Recheck Date: 06/13/25 Rx Instructions: take 1 tablet Thu, , , and 2 tablets (8 mg) on Thursday, Thursday and Thursday or DIRECTED ; Please give extra tablets. (DME) lancets [FreeStyle Lancets] 28 gauge misc See Rx Instructions .MEDSUPPLY Qty: 200 3RF Rx Instructions: check blood glucose daily for type 2 DM (DME) 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 meter [FreeStyle Lite Meter] Kit See Rx Instructions .MEDSUPPLY Qty: 1 0RF Rx Instructions: As directed, check blood glucose daily for type 2 DM (DME) FreeStyle Lite Strips Strip See Rx Instructions .MEDSUPPLY Qty: 100 3RF Rx Instructions: check blood glucose daily for type 2 DM Referrals / Follow Up: Terrell Schafer MD [Primary Care Provider] - Disposition Disposition (needs filled in before D/C Order can be placed): Snf Facility 06/10/25 1510 <Electronically signed by Todd Lane DO> Cosigner Signature (if applicable): CC: Dr. Jana Reardon MD; Dr. Terrell Schafer MD ~ [facility] Work Phone: 1(819) 352-922507-26-2025 Progress note Author [facility] Note Date/Time June 10, 2025 2:54 pm [facility] Medical Records Department [address] [place] [address] Progress Note - Hospitalist 06/09/25 190 MR#: [id number] Acct: [id number] Name: VASILE MILLER Rep #:[id number] : 1940 84 From: Todd Lane DO PCP: Dr. Terrell Schafer MD Status:A DM IN Location: [place] [address] Reason for Visit Chief Complaint: Increased confusion, malaise Subjective Subjective Patient was seen and examined today, she is alert and does not appear to be agitated, there is minimal confusion. I have elected not to obtain a CT of the brain again due to the patient's improved mental status today. I talked with the patient's son and he was okay with not obtaining a CT of the brain. Patientis undergoing pre-CERT for SNF placement for short-term skilled services. Objective Data Objective Data Vital Signs: Vital Signs Temp Pulse Resp BP Pulse Ox O2 Del Method O2 Flow Rate 97.7 F L 90 18 101/75 95 Nasal Cannula 2 06/09/25 16:00 06/09/25 16:00 06/09/25 16:00 06/09/25 16:00 06/09/25 16:00 06/09/25 16:00 06/09/25 16:00 Oxygen Flow Rate (L/min) 2 Oxygen Delivery Method Nasal Cannula Weight: 98.2 kg Body Mass Index (BMI) 36.0 Intake & Output: Intake and Output for Last 24 Hours 06/07/25 06/08/25 06/09/25 23:59 23:59 23:59 Intake Total 1375 / 1375 104 / 104 300 / 300 Output Total 1250 / 1250 1300 / 1300 Balance 125 / 125 -1196 / -1196 300 / 300 Lab / Micro Data 06/07/25 06:09 06/10/25 06:00 Labs: Laboratory Results - last 24 hr 06/08/25 22:55: POC Glucose 173 H 06/09/25 04:38: POC Glucose 154 H 06/09/25 06:30: PT 19.7 H, INR 1.6, Sodium 140, Potassium 3.1 L, Chloride 99, Carbon Dioxide 29.8, Anion Gap 11, BUN 13, Creatinine 0.68 L, Estim Creat Clear Calc 61.81, Est GFR (MDRD) Non-Af 86, BUN/Creatinine Ratio 19.5, Glucose 191 H, Calcium 8.9 06/09/25 12:02: POC Glucose 246 H 06/09/25 17:13: POC Glucose 174 H Micro: Microbiology 06/06/25 18:30 Urine Catheter - Catheter Urine Culture - Final Culture exhibits no growth. 06/06/25 18:30 Blood Culture (Wb) - Anticubital Left Blood Culture - Preliminary No growth in 48 hours. 06/06/25 18:30 Blood Culture (Wb) - Anticubital Right Blood Culture - Preliminary No growth in 48 hours. 06/06/25 23:10 Mucosa - Nasopharyngeal Respiratory Panel (PCR) - Final 06/06/25 23:11 Nasal Secretion MRSA (PCR) - Final 06/07/25 01:35 Urine Catheter - Ayala Legionella Antigen - Final 06/07/25 01:35 Urine Catheter - Ayala Streptococcus pneumoniae Antigen (M - Final Rhythm Strip Rhythm Strip: A-fib Rate: 108 Ectopy: None Physical Exam Const alert, oriented x3 and no apparent distress General Appearance: cooperative, well kempt and well developed Orientation / Consciousness: awake, oriented to person, oriented to place and oriented to time HEENT normocephalic, head/scalp atraumatic and moist oral mucous membranes Eyes PERRL, EOMs intact bilaterally and conjunctivae normal Neck supple, no JVD, thyroid normal and no carotid bruits General: trachea midline Resp normal respiratory effort, no retractions, no use of accessory muscles and clearto auscultation bilaterally Auscultation: Negative for rales, rhonchi or wheezes Cardio S1 normal heart sound, S2 normal heart sound, no murmurs, no rub and no gallops Cardio Narrative: Heart rate and rhythm is irregular GI normal to inspection, nondistended, normoactive bowel sounds, soft to palpation,non-tender and non-distended Extremity no clubbing, cyanosis or edema Skin no rashes or lesions noted General Skin Exam: no breakdown Neuro oriented x3, CN's II-XII intact bilaterally, moves all extremities, no focal motor deficits and no sensory deficits noted Sensorium / Orientation: awake, alert, oriented to person, oriented to place andoriented to time Speech: speech normal Psych affect normal Assessment & Plan Assessment/Plan (1) Chronic a-fib: (2) History of dementia: PLAN: Plan 1. Altered mental cuugbw-kizpcvzw-cwpb hypoxia and generalized debility-I feel the patient does have an element of congestive heart failure, I have transitioned her Lasix over to oral and placed her on potassium. We are awaiting preapproval for her to go to a [place] facility #2 paroxysmal atrial fibrillation-patient is on Coumadin currently and metoprolol #3 chronic dementia-complicates care, management, recovery, and prognosis #4 valvular heart disease-patient has a bioprosthetic aortic valve #5 hypothyroidism-patient will remain on Synthroid #6 essential hypertension-patient will remain on her present medications #7 hyperlipidemia-patient will remain on her statin #8 congestive heart failure with normal ejection fraction continue Lasix #9 mild pulmonary hypertension-continue Lasix Total clinical time spent by myself addressing the patient's medical issues, reviewing all of her data, and collaborating with the patient's care team: 35 minutes Charges/Coding Visit Charges Inpatient E&M: 35001 Subs Hosp L2 06/10/25 8920 <Electronically signed by Todd Lane DO> Cosigner Signature (if applicable): CC: ~ Signed [facility] Work Phone: 1(650) 454-344207-26-20[address] [facility] Note Date/Time June 10, 2025 2:33 pm [facility] Medical Records Department [address] [place] [address] Progress Note - Hospitalist 06/08/252037 MR#: [id number] Acct: [id number] Name: VASILE MILLER Rep #:[id number] : 1940 84 From: Todd Lane DO PCP: Dr. Terrell Schafer MD Status:A DM IN Location: [place] [address] Reason for Visit Chief Complaint: Increased confusion, malaise Subjective Subjective Patient was seen and examined today, an MRI was attempted but the patient was too agitated to undergo the procedure. At times today, patient was appropriate,at other times she was very confused and agitated, she removed her telemetry which I discontinued, I also discontinued the patient's catheter, patient has a hard time keeping the oxygen on when she gets agitated and I had a talk with thefamily members and told them that she will most likely take the oxygen off and it would be hard to keep her on oxygen. Her pulse ox on room air was 86% today. I have given her IV Haldol today for agitation which worked very well, I have also written for IM Haldol because she removed her IV, I do not think she needs any more IV Lasix at this time so I kept the IV out. I wrote for oral Seroquel to start tonight-50 mg twice daily but I do not know if they will be able to give it to the patient. Objective Data Objective Data Vital Signs: Vital Signs Temp Pulse Resp BP Pulse Ox O2 Del Method O2 Flow Rate 98.5 F 85 18 133/68 H 86 Room Air 2 06/08/25 14:30 06/08/25 14:30 06/08/25 14:30 06/08/25 14:30 06/08/25 16:56 06/08/25 16:56 06/08/25 14:30 Oxygen Flow Rate (L/min) 2 Oxygen Delivery Method Room Air Weight: 99.4 kg Body Mass Index (BMI) 36.4 Intake & Output: Intake and Output for Last 24 Hours 06/06/25 06/07/25 06/08/25 23:59 23:59 23:59 Intake Total 1050 / 1050 1375 / 1375 104 / 104 Output Total 850 / 850 1250 / 1250 1300 / 1300 Balance 200 / 200 125 / 125 -1196 / -1196 Lab / Micro Data 06/07/25 06:09 06/10/25 06:00 Labs: Laboratory Results - last 24 hr 06/07/25 20:39: POC Glucose 175 H 06/08/25 00:06: POC Glucose 259 H 06/08/25 00:24: PT 16.8 H, INR 1.3, Sodium 135, Potassium 3.7, Chloride 96 L, Carbon Dioxide 20.0 L, Anion Gap 19 H, BUN 17, Creatinine 0.93, Estim Creat ClearCalc 54.24, Est GFR (MDRD) Non-Af 61, BUN/Creatinine Ratio 18.5, Glucose 277 H, Hemoglobin A1c 8.9 H, Calcium 9.3, Magnesium 1.7, Triglycerides 146, [id number], LDL Cholesterol, Calc 50, VLDL Cholesterol 29, HDL Cholesterol 41, Cholesterol/HDL Ratio 2.95 06/08/25 06:46: POC Glucose 183 H Micro: Microbiology 06/06/25 18:30 Urine Catheter - Catheter Urine Culture - Preliminary Culture exhibits no growth. 06/06/25 23:10 Mucosa - Nasopharyngeal Respiratory Panel (PCR) - Final 06/06/25 23:11 Nasal Secretion MRSA (PCR) - Final 06/07/25 01:35 Urine Catheter - Ayala Legionella Antigen - Final 06/07/25 01:35 Urine Catheter - Ayala Streptococcus pneumoniae Antigen (M - Final Radiography Diagnostic Testing: Radiology Impression Head/Neck CTA 06/07/25 20:50 IMPRESSION: Exam is nondiagnostic, particularly in the neck region. However, there is no evidence for acute cervical or intracranial arterial pathology. Patent dural venous sinuses. Recommend repeat imaging as clinically determined. [facility] 06/07/25 20:51 IMPRESSION: No acute, large territorial infarction. Dr. Reardon was notified by Sophie Garcia at 9:10 Pm EST on 06/07/2025. Reading Location: [id number] Echocardiogram 06/07/25 21:28 Interpretation Summary The estimated ejection fraction is 60 %. Unable to assess diastolic dysfunction. The left atrium is mildly enlarged. Mild (1+) mitral valve insufficiency. Ordering Physician: Jana Reardon Referring Physician: Terrell Schafer Performed By: Natali Augustine RDCS Rhythm Strip Rhythm Strip: A-fib Rate: 108 Ectopy: None Physical Exam Narrative alert and no apparent distress General Appearance: well kempt and well developed Orientation / Consciousness: awake HEENT normocephalic, head/scalp atraumatic and moist oral mucous membranes Eyes PERRL, EOMs intact bilaterally and conjunctivae normal Neck supple, no JVD, thyroid normal and no carotid bruits General: trachea midline Resp normal respiratory effort, no retractions, no use of accessory muscles and clearto auscultation bilaterally Auscultation: Negative for rales, rhonchi or wheezes Cardio regular rate, regular rhythm, S1 normal heart sound, S2 normal heart sound, no murmurs, no rub and no gallops GI normal to inspection, nondistended, normoactive bowel sounds, soft to palpation,non-tender and non-distended Extremity no clubbing, cyanosis or edema Skin no rashes or lesions noted General Skin Exam: no breakdown Neuro CN's II-XII intact bilaterally, moves all extremities, no focal motor deficits and no sensory deficits noted Neuro Narrative: Patient is confused Sensorium / Orientation: awake and alert Speech: speech normal Psych Psych Narrative: Patient is alert but confused Assessment & Plan Assessment/Plan (1) History of dementia: PLAN: Plan 1. Altered mental status with hypoxia and generalized debility-I feel the patient does have an element of congestive heart failure and I placed her on IV Lasix. I think is unlikely she has pneumonia and I took her off her antibiotics. She will be seen by PT and OT. Most likely she [place] [facility] services. I doubted that the patient has had a CVA, I will reevaluate her tomorrow for possible repeat CTA since she is unable to undergo an MRI. #2 paroxysmal atrial fibrillation-patient is on Coumadin currently and metoprolol #3 chronic dementia-complicates care, management, recovery, and prognosis #4 valvular heart disease-patient has a bioprosthetic aortic valve #5 hypothyroidism-patient will remain on Synthroid #6 essential hypertension-patient will remain on her present medications #7 hyperlipidemia-patient will remain on her statin Total clinical time spent by myself addressing the patient's medical issues, reviewing all of her data, and collaborating with the patient's care team: 35 minutes Charges/Coding Visit Charges Inpatient E&M: 35896 Subs Hosp L2 06/10/25 1433 <Electronically signed by Todd Lane DO> Cosigner Signature (if applicable): CC: ~ Signed [facility] Work Phone: 1(864) 722-817407-26-2025 Progress note Author [facility] Note Date/Time June 10, 2025 2:25 pm [facility] Medical Records Department [address] [place] [address] Progress Note - Hospitalist 06/07/25 1857 MR#: [id number] Acct: [id number] Name: VASILE MILLER Rep #:[id number] : 1940 84 From: Todd Lane DO PCP: Dr. Terrell Schafer MD Status:A DM IN Location: [place] [address] Reason for Visit Chief Complaint: Increased confusion, malaise Subjective Subjective Patient was seen and examined today, I talked with her family was in the room atthe time of my examination this morning. Patient is not agitated at the time ofmy exam, she is complaining of bladder discomfort however due to her Ayala, I gave the order to nursing to discontinue the Ayala catheter. In reviewing her chart this morning, I feel that the most likely explanation for the patient's hypoxia is congestive heart failure not pneumonia, I decided to stop her antibiotics and placed her on IV Lasix. Her INR is low and I have adjusted the dose of her warfarin. Objective Data Objective Data Vital Signs: Vital Signs Temp Pulse Resp BP Pulse Ox O2 Del Method O2 Flow Rate 97.8 F 86 16 161/91 H 92 Room Air 2 06/07/25 13:18 06/07/25 13:18 06/07/25 13:18 06/07/25 13:18 06/07/25 13:18 06/07/25 13:18 06/07/25 07:52 Oxygen Flow Rate (L/min) 2 Oxygen Delivery Method Room Air Weight: 101.9 kg Body Mass Index (BMI) 37.3 Intake & Output: Intake and Output for Last 24 Hours 06/05/25 06/06/25 06/07/25 23:59 23:59 23:59 Intake Total 1050 / 1050 1255 / 1255 Output Total 850 / 850 1250 / 1250 Balance 200 / 200 Lab / Micro Data 06/07/25 06:09 06/10/25 06:00 Labs: Laboratory Results - last 24 hr 06/06/25 18:30: WBC 9.2, RBC 4.29, Hgb 12.8, Hct 38.6, MCV 90.0, MCH 29.8, MCHC 33.2, RDW Std Deviation 47.7 H, RDW Coeff of Uche 14.6, Plt Count 176, MPV 10.6, Immature Gran % (Auto) 0.400, Neut % (Auto) 77.7 H, Lymph % (Auto) 11.1 L, [place] % (Auto) 9.5, Eos % (Auto) 1.0, Baso % (Auto) 0.3, Absolute Neuts (auto) 7.2, Absolute Lymphs (auto) 1.03, Nucleated RBC % 0, PT 18.0 H, INR 1.5, APTT 28.5, Sodium 138, Potassium 3.9, Chloride 98, Carbon Dioxide 24.3, Anion Gap 15, BUN 18, Creatinine 0.80, Estim Creat Clear Calc 63.09, Est GFR (MDRD) Non-Af 73, BUN/Creatinine Ratio 22.1 H, Glucose 239 H, Calcium 9.9, Total Bilirubin 1.48 H, AST 26, ALT 16, Alkaline Phosphatase 81, Total Protein 7.2, Albumin 4.4, Globulin 2.8, Albumin/Globulin Ratio 1.5, Urine Color Straw, Urine Clarity Clear, Urine pH 6.0, Ur Specific Orting 1.015, Urine Protein 100 H, Urine Glucose (UA) 50 H, Urine Ketones 15 H, Urine Occult Blood 10 H, Urine Nitrite Negative, Urine Bilirubin Negative, Urine Urobilinogen Normal, Ur Leukocyte Esterase Negative, Urine RBC 0-5 SEEN, Urine WBC 0-5 SEEN, Ur Squamous Epith Cells 0-5 SEEN, Urine Bacteria 0 SEEN, Hyaline Casts 0-5 SEEN, Urine Mucus 0 SEEN 06/06/25 18:35: Lactic Acid 1.8 06/06/25 20:59: Magnesium 1.6, Ammonia 14.8 06/06/25 21:59: Procalcitonin 0.03 06/06/25 22:36: POC Glucose 214 H 06/07/25 06:04: Sodium 139, Potassium 3.8, Chloride 102, Carbon Dioxide 25.7, Anion Gap 11, BUN 14, Creatinine 0.64 L, Estim Creat Clear Calc 63.05, Est GFR (MDRD) Non-Af 88, BUN/Creatinine Ratio 21.6 H, Glucose 167 H, Calcium 8.8, TotalBilirubin 1.22, AST 21, ALT 13, Alkaline Phosphatase 61, NT pro BNP II 3397 H, Total Protein 6.1, Albumin 3.5, Globulin 2.5, Albumin/Globulin Ratio 1.4, TSH 0.941 06/07/25 06:09: WBC 6.1, RBC 3.59 L, Hgb 10.7 L, Hct 32.4 L, MCV 90.3, MCH 29.8,MCHC 33.0, RDW Std Deviation 47.5 H, RDW Coeff of Uche 14.3, Plt Count 141 L, MPV10.5, Immature Gran % (Auto) 0.700, Neut % (Auto) 63.8, Lymph % (Auto) 20.9, [place] % (Auto) 12.0 H, Eos % (Auto) 2.3, Baso % (Auto) 0.3, Absolute Neuts (auto) 3.9, Absolute Lymphs (auto) 1.27, Nucleated RBC % 0, PT 17.3 H, INR 1.4 06/07/25 06:34: POC Glucose 149 H Micro: Microbiology 06/06/25 23:10 Mucosa - Nasopharyngeal Respiratory Panel (PCR) - Final 06/06/25 23:11 Nasal Secretion MRSA (PCR) - Final 06/07/25 01:35 Urine Catheter - Ayala Legionella Antigen - Final 06/07/25 01:35 Urine Catheter - Ayala Streptococcus pneumoniae Antigen (M - Final ABG Data ABG results: ABG 06/06/25 21:14 Specimen Type CARSON Sample Site Not entered VBG pH 7.38 VBG pO2 40 VBG HCO3 29 H VBG Total CO2 31 VBG O2 Sat (Calc) 73 H VBG Base Excess 4 H POC Mix VBG pCO2 Pt Tmp 48.7 O2 Delivery Device Not entered Radiography Diagnostic Testing: Radiology Impression Brain CT 06/06/25 18:28 IMPRESSION: No acute intracranial abnormality. Reading Location: [id number] Chest X-Ray 06/06/25 19:04 IMPRESSION: No focal consolidations. Mild pulmonary vascular congestion and interstitial edema. Mild cardiomegaly. Reading Location: [facility] Chest X-Ray 06/07/25 05:38 IMPRESSION: There is cardiomegaly with prominent central vascular markings and increased interstitial markings consistent with CHF. An overlying patchy consolidation is present in the right upper lung and left perihilar region. [facility] Rhythm Strip Rhythm Strip: A-fib Rate: 108 Ectopy: None Physical Exam Const alert and no apparent distress General Appearance: well kempt and well developed Orientation / Consciousness: awake HEENT normocephalic, head/scalp atraumatic and moist oral mucous membranes Eyes PERRL, EOMs intact bilaterally and conjunctivae normal Neck supple, no JVD, thyroid normal and no carotid bruits General: trachea midline Resp normal respiratory effort, no retractions, no use of accessory muscles and clearto auscultation bilaterally Auscultation: Negative for rales, rhonchi or wheezes Cardio regular rate, regular rhythm, S1 normal heart sound, S2 normal heart sound, no murmurs, no rub and no gallops GI normal to inspection, nondistended, normoactive bowel sounds, soft to palpation,non-tender and non-distended Extremity no clubbing, cyanosis or edema Skin no rashes or lesions noted General Skin Exam: no breakdown Neuro CN's II-XII intact bilaterally, moves all extremities, no focal motor deficits and no sensory deficits noted Neuro Narrative: Patient is confused Sensorium / Orientation: awake and alert Speech: speech normal Psych Psych Narrative: Patient is alert but confused Assessment & Plan Assessment/Plan (1) History of dementia: PLAN: Plan 1. Altered mental status with hypoxia and generalized debility-I feel the patient does have an element of congestive heart failure and I placed her on IV Lasix. I think is unlikely she has pneumonia and I took her off her antibiotics. She will be seen by PT and OT. Most likely she [place] need [facility] [place] [facility] services. #2 paroxysmal atrial fibrillation-patient is on Coumadin currently and metoprolol #3 chronic dementia-complicates care, management, recovery, and prognosis #4 valvular heart disease-patient has a bioprosthetic aortic valve #5 hypothyroidism-patient will remain on Synthroid #6 essential hypertension-patient will remain on her present medications #7 hyperlipidemia-patient will remain on her statin Total clinical time spent by myself addressing the patient's medical issues, reviewing all of her data, and collaborating with the patient's care team: 50 minutes Charges/Coding Visit Charges Inpatient E&M: 20066 Subs Hosp L3 06/10/25 1425 <Electronically signed by Todd Lane DO> Cosigner Signature (if applicable): CC: ~ Signed [facility] Work Phone: 1(589) 200-958307-26-2025 Discharge summary [facility] Medical Records Department [address] [place] [id number] Transfer to [facility] MR#: [id number] Acct: [id number] Name: VASILE MILLER Rep #:[id number] : 1940 84 From: Todd Lane DO PCP: Dr. Terrell Schafer MD Status:A DM IN Certification of patient admission REQUIRED AT TIME OF ADMISSION. I CERTIFY THAT POST-HOSPITAL ECF SERVICES ARE REQUIRED TO BE GIVEN ON AN IN-PATIENT BASIS BECAUSE OF THE ABOVE NAMED PATIENT'S NEED FOR SNF CARE ON A CONTINUING BASIS FOR THE CONDITION(S) FOR WHICH HE/SHE WAS RECEIVING IN-PATIENT HOSPITAL SERVICES PRIOR TO HIS/HER TRANSFER TO THE [facility]. 06/10/25 1510 Diet Diet Order/Speech Therapy: INPATIENT Hospital Diet / Speech Therapy Order(s) 06/06/25 22:07 Diet: Cardiac: Calorie-Controlled Food consistency:: Regular Liquid Consistency:: Regular/Thin Dietary Modifications:: Consistent Carbohydrate Type of Dietary Supplement:: 8oz Glucerna w/ Breakfast Diet Comments: Caffeine, MSG, Wheat Allergy How many daily calories?: 1800 calorie Routine Orders/Code Status Code Status: DNRCC-A (No intubation) DC O2, CPAP, BIPAP needs Home O2 Discharge instructions: No Wound(s) RLE: Wound Type: Laceration Therapies Weight Bearing: Full weight bearing Physical Therapy: Eval and Treat Occupational Therapy: Eval and Treat Problem/Diagnosis (1) Chronic a-fib: Status: Chronic Code(s): I48.20 - Chronic atrial fibrillation, unspecified (2) History of dementia: Status: Acute Code(s): Z86.59 - Personal history of other mental and behavioral disorders Plan 1. Altered mental uratdv-ceatbqfq-qjry hypoxia and generalized debility-I feel the patient does have an element of congestive heart failure, I have transitioned her Lasix over to oral and placed her on potassium. We are awaiting preapproval for her to go to a [place] [facility] facility #2 paroxysmal atrial fibrillation-patient is on Coumadin currently and metoprolol #3 chronic dementia-complicates care, management, recovery, and prognosis #4 valvular heart disease-patient has a bioprosthetic aortic valve #5 hypothyroidism-patient will remain on Synthroid #6 essential hypertension-patient will remain on her present medications #7 hyperlipidemia-patient will remain on her statin #8 congestive heart failure with normal ejection fraction continue Lasix #9 mild pulmonary hypertension-continue Lasix Total clinical time spent by myself addressing the patient's medical issues, reviewing all of her data, and collaborating with the patient's care team: 35 minutes Allergies/Procedures Done in Hospital Allergies acetaminophen (From Excedrin Migraine) Allergy (Intermediate, Verified 06/06/25 18:06) headache aspirin Allergy (Intermediate, Verified 06/06/25 18:06) headache caffeine (From Excedrin Migraine) Allergy (Intermediate, Verified 06/06/25 18:06) headache mold (mold spores) Allergy (Intermediate, Verified 06/06/25 18:06) respiratory distress lisinopril Adverse Reaction (Severe, Verified 06/06/25 18:06) Cough monosodium glutamate (msg) Adverse Reaction (Intermediate, Verified 06/06/25 18:06) PT UNSURE OF REACTION wheat Adverse Reaction (Intermediate, Verified 06/06/25 18:06) PT UNSURE OF REACTION liraglutide (From Victoza) Adverse Reaction (Verified 06/06/25 18:06) Other Procedures: 2-D Echocardiogram Type of Care/Length of Stay Estimated LOS: Convalescent Care Less Than 30 days Type of Care Needed: Skilled Rehab Potential: Good Prognosis: Good Additional Orders/Day of Discharge H&P will serve as current which was dated: 06/06/25 Day of Discharge: 06/10/25 Dietary and Speech Recommendations Dietitian Recommendations/Changes: Will continue 1800 calorie/consistent carbohydrate; cardiac. Caffeine, MSG and Wheat Allergy Will add 240mL glucerna shake w/ breakfast tray. Additional ONS as PO better established with meals. Discharge Plan Admission Admit Date/Time: 06/06/25 20:15 Primary Reason for Your Visit: Altered mental status, congestive heart failure, hypoxia Attending Provider: Todd Lane Primary Care Provider: Terrell Schafer Consulting Providers: Jana Reardon Discharge Orders/Prescriptions Prescriptions: New furosemide 40 mg Tablet 40 mg PO BIDLX Qty: 0 0RF acetaminophen 325 mg Tablet 650 mg PO Q4H PRN PRN (Reason: Fever, pain 1-08/25) Qty: 0 0RF insulin lispro [Humalog KwikPen Insulin] 100 unit/mL Insulin Pen See Protocol subcut ACHS Qty: 15 0RF Protocol: 3. Sliding Scale Insulin Med Dosing Condition: 150-189 mg/dl = 1 unit Condition: 190-229 mg/dl = 2 units Condition: 230-269 mg/dl = 3 units Condition: 270-309 mg/dl = 4 units Condition: 310-349 mg/dl = 5 units Condition: 350-399 mg/dl = 6 units Condition: 400-449 mg/dl = 7 units Condition: Greater than 449 call physician Protocol Text: - Use for Total Daily Dose of Insulin 37-55 units - Obsese, infected, or steroid patients MEDIUM DOSING ALGORITHIM menthol-zinc oxide [Calmoseptine] 0.44-20.6 % Ointment 1 applic topical 4X/DAY Qty: 0 0RF Protocol: *Topical Application Instructions APPLICATION INSTRUCTIONS: apply to affected region Rx Instructions: Apply to affected areas as needed 4 times a day sennosides-docusate sodium [Stimulant Laxative Plus] 8.6-50 mg Tablet 2 tab PO BID PRN PRN (Reason: Constipation) Qty: 0 0RF potassium chloride 20 mEq Tablet,Er Particles/Crystals 20 meq PO BIDCM Qty: 0 0RF nystatin 100,000 unit/gram Powder 1 applic topical TID Qty: 0 0RF Protocol: *Topical Application Instructions APPLICATION INSTRUCTIONS: to affected regions warfarin 6 mg tablet 6 mg PO DAILY Qty: 1 0RF Continued (DME) Dexcom G7 [employer] [facility] See Rx Instructions .Route Rx Instructions: As directed ergocalciferol (vitamin D2) 1,250 mcg (50,000 unit) capsule 50,000 unit PO QWEEK Qty: 20 1RF losartan 100 mg tablet 100 mg PO DAILY Qty: 90 3RF atorvastatin 40 mg tablet 40 mg PO DAILY Qty: 90 3RF gabapentin 100 mg capsule 100 mg PO TID alendronate 70 mg tablet 70 mg PO QWEEK magnesium chloride 71.5 MG tablet,delayed release (DR/EC) 143 mg PO DAILY metoprolol tartrate 100 mg tablet 100 mg PO BID Qty: 180 3RF levothyroxine 25 mcg tablet 25 mcg PO QDAY Qty: 90 0RF Discontinued (DME) pen needle, diabetic [BD Ultra-Fine Kimber Pen Needle] 32 gauge x 5/32" needle See Rx Instructions .ROUTE .MEDSUPPLY Qty: 400 4RF Rx Instructions: 4 times daily hydrochlorothiazide 25 mg tablet 25 mg PO DAILY Qty: 90 3RF trolamine salicylate [Myoflex] 10 % cream 1 applic topical DAILY PRN (Reason: ARTHRITIS ) glucagon HCl [Glucagon (HCl) Emergency Kit] 1 mg recon soln 1 mg subcut Q20M PRN (Reason: HYPOGLYCEMIA ) Rx Instructions: until target blood sugar attained nystatin 100,000 unit/gram powder 1 applic topical BID PRN (Reason: FUNGAL INFECTION ) cetirizine 5 mg tablet 5 mg PO DAILY acetaminophen 500 mg tablet 1,000 mg PO BID PRN (Reason: pain/fever) ascorbic acid (vitamin C) 1,000 mg capsule 1 g PO QDAY warfarin 5 mg tablet 5 mg PO QDAY Protocol: Dose Management Condition: Thursday Dose/Route: 8 mg Instruction: 2 x 4 mg tablets Condition: Thursday Dose/Route: 8 mg Instruction: 2 x 4 mg tablets Condition: Thursday Dose/Route: 10 mg Instruction: 2 x 5 mg tablets Condition: Thursday Dose/Route: 8 mg Instruction: 2 x 4 mg tablets Condition: Dose/Route: 8 mg Instruction: 2 x 4 mg tablets Condition: Thursday Dose/Route: 8 mg Instruction: 2 x 4 mg tablets Condition: Thursday Dose/Route: 8 mg Instruction: 2 x 4 mg tablets Protocol Text: Adjustment Start Date: Thursday05/30/25 INR Value: 1.8 INR Date: 05/29/25 Recheck Date: 06/13/25 furosemide 20 mg tablet 20 mg PO DAILY Qty: 90 3RF tizanidine 2 mg capsule 2 mg PO Q8H PRN (Reason: muscle spasticity) warfarin 1 mg tablet 1 mg PO 3XW Protocol: Dose Management Condition: Thursday Dose/Route: 8 mg Instruction: 2 x 4 mg tablets Condition: Thursday Dose/Route: 8 mg Instruction: 2 x 4 mg tablets Condition: Thursday Dose/Route: 10 mg Instruction: 2 x 5 mg tablets Condition: Thursday Dose/Route: 8 mg Instruction: 2 x 4 mg tablets Condition: Dose/Route: 8 mg Instruction: 2 x 4 mg tablets Condition: Thursday Dose/Route: 8 mg Instruction: 2 x 4 mg tablets Condition: Thursday Dose/Route: 8 mg Instruction: 2 x 4 mg tablets Protocol Text: Adjustment Start Date: Thursday05/30/25 INR Value: 1.8 INR Date: 05/29/25 Recheck Date: 06/13/25 oxycodone 5 mg capsule 5 mg PO BID PRN (Reason: pain) insulin degludec [Tresiba FlexTouch U-100] 100 unit/mL (3 mL) insulin pen 16 unit subcut BID Fiasp FlexTouch U-100 Insulin 100 unit/mL (3 mL) insulin pen 20 unit subcut TID Qty: 18 5RF clotrimazole-betamethasone 1-0.05 % cream 1 applic TOPICAL BID PRN (Reason: FUNGAL INFECTION ) ketoconazole 2 % shampoo 1 applic topical UD PRN (Reason: FUNGAL INFECTION ) Rx Instructions: APPLY SHAMPOO TOPICALLY TWICE A WEEK NEEDED ketoconazole 2 % cream 1 applic topical DAILY PRN (Reason: FUNGAL INFECTION ) warfarin 4 mg tablet 4 mg PO .COMPLEX Qty: 180 3RF Protocol: Dose Management Condition: Thursday Dose/Route: 8 mg Instruction: 2 x 4 mg tablets Condition: Thursday Dose/Route: 8 mg Instruction: 2 x 4 mg tablets Condition: Thursday Dose/Route: 10 mg Instruction: 2 x 5 mg tablets Condition: Thursday Dose/Route: 8 mg Instruction: 2 x 4 mg tablets Condition: Dose/Route: 8 mg Instruction: 2 x 4 mg tablets Condition: Thursday Dose/Route: 8 mg Instruction: 2 x 4 mg tablets Condition: Thursday Dose/Route: 8 mg Instruction: 2 x 4 mg tablets Protocol Text: Adjustment Start Date: Thursday05/30/25 INR Value: 1.8 INR Date: 05/29/25 Recheck Date: 06/13/25 Rx Instructions: take 1 tablet Thu, , , and 2 tablets (8 mg) on Thursday, Thursday and Thursday or DIRECTED ; Please give extra tablets. (DME) lancets [FreeStyle Lancets] 28 gauge misc See Rx Instructions .MEDSUPPLY Qty: 200 3RF Rx Instructions: check blood glucose daily for type 2 DM (DME) 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 meter [FreeStyle Lite Meter] Kit See Rx Instructions .MEDSUPPLY Qty: 1 0RF Rx Instructions: As directed, check blood glucose daily for type 2 DM (DME) FreeStyle Lite Strips Strip See Rx Instructions .MEDSUPPLY Qty: 100 3RF Rx Instructions: check blood glucose daily for type 2 DM Referrals / Follow Up: Terrell Schafer MD [Primary Care Provider] - Disposition Disposition (needs filled in before D/C Order can be placed): Snf Facility 06/10/25 1510 Cosigner Signature (if applicable): CC: Dr. Jana Reardon MD; Dr. Terrell Schafer MD ~ [facility]07-26-2025 [facility]07-26-2025 Progress note [facility] Medical Records Department [address] [place] [address] Progress Note - Hospitalist 06/09/25 190 MR#: [id number] Acct: [id number] Name: VASILE MILLER Rep #:[id number] : 1940 84 From: Todd Lane DO PCP: Dr. Terrell Schafer MD Status:A DM IN Location: [place] [address] Reason for Visit Chief Complaint: Increased confusion, malaise Subjective Subjective Patient was seen and examined today, she is alert and does not appear to be agitated, there is minimal confusion. I have elected not to obtain a CT of the brain again due to the patient's improved mental status today. I talked with the patient's son and he was okay with not obtaining a CT of the brain. Patientis undergoing pre-CERT for SNF placement for short-term skilled services. Objective Data Objective Data Vital Signs: Vital Signs Temp Pulse Resp BP Pulse Ox O2 Del Method O2 Flow Rate 97.7 F L 90 18 101/75 95 Nasal Cannula 2 06/09/25 16:00 06/09/25 16:00 06/09/25 16:00 06/09/25 16:00 06/09/25 16:00 06/09/25 16:00 06/09/25 16:00 Oxygen Flow Rate (L/min) 2 Oxygen Delivery Method Nasal Cannula Weight: 98.2 kg Body Mass Index (BMI) 36.0 Intake & Output: Intake and Output for Last 24 Hours 06/07/25 06/08/25 06/09/25 23:59 23:59 23:59 Intake Total 1375 / 1375 104 / 104 300 / 300 Output Total 1250 / 1250 1300 / 1300 Balance 125 / 125 -1196 / -1196 300 / 300 Lab / Micro Data 06/07/25 06:09 06/10/25 06:00 Labs: Laboratory Results - last 24 hr 06/08/25 22:55: POC Glucose 173 H 06/09/25 04:38: POC Glucose 154 H 06/09/25 06:30: PT 19.7 H, INR 1.6, Sodium 140, Potassium 3.1 L, Chloride 99, Carbon Dioxide 29.8, Anion Gap 11, BUN 13, Creatinine 0.68 L, Estim Creat Clear Calc 61.81, Est GFR (MDRD) Non-Af 86, BUN/Creatinine Ratio 19.5, Glucose 191 H, Calcium 8.9 06/09/25 12:02: POC Glucose 246 H 06/09/25 17:13: POC Glucose 174 H Micro: Microbiology 06/06/25 18:30 Urine Catheter - Catheter Urine Culture - Final Culture exhibits no growth. 06/06/25 18:30 Blood Culture (Wb) - Anticubital Left Blood Culture - Preliminary No growth in 48 hours. 06/06/25 18:30 Blood Culture (Wb) - Anticubital Right Blood Culture - Preliminary No growth in 48 hours. 06/06/25 23:10 Mucosa - Nasopharyngeal Respiratory Panel (PCR) - Final 06/06/25 23:11 Nasal Secretion MRSA (PCR) - Final 06/07/25 01:35 Urine Catheter - Ayala Legionella Antigen - Final 06/07/25 01:35 Urine Catheter - Ayala Streptococcus pneumoniae Antigen (M - Final Rhythm Strip Rhythm Strip: A-fib Rate: 108 Ectopy: None Physical Exam Const alert, oriented x3 and no apparent distress General Appearance: cooperative, well kempt and well developed Orientation / Consciousness: awake, oriented to person, oriented to place and oriented to time HEENT normocephalic, head/scalp atraumatic and moist oral mucous membranes Eyes PERRL, EOMs intact bilaterally and conjunctivae normal Neck supple, no JVD, thyroid normal and no carotid bruits General: trachea midline Resp normal respiratory effort, no retractions, no use of accessory muscles and clearto auscultation bilaterally Auscultation: Negative for rales, rhonchi or wheezes Cardio S1 normal heart sound, S2 normal heart sound, no murmurs, no rub and no gallops Cardio Narrative: Heart rate and rhythm is irregular GI normal to inspection, nondistended, normoactive bowel sounds, soft to palpation,non-tender and non-distended Extremity no clubbing, cyanosis or edema Skin no rashes or lesions noted General Skin Exam: no breakdown Neuro oriented x3, CN's II-XII intact bilaterally, moves all extremities, no focal motor deficits and no sensory deficits noted Sensorium / Orientation: awake, alert, oriented to person, oriented to place andoriented to time Speech: speech normal Psych affect normal Assessment & Plan Assessment/Plan (1) Chronic a-fib: (2) History of dementia: PLAN: Plan 1. Altered mental svzzaf-nxprezic-myda hypoxia and generalized debility-I feel the patient does have an element of congestive heart failure, I have transitioned her Lasix over to oral and placed her on potassium. We are awaiting preapproval for her to go to a [place] [facility] facility #2 paroxysmal atrial fibrillation-patient is on Coumadin currently and metoprolol #3 chronic dementia-complicates care, management, recovery, and prognosis #4 valvular heart disease-patient has a bioprosthetic aortic valve #5 hypothyroidism-patient will remain on Synthroid #6 essential hypertension-patient will remain on her present medications #7 hyperlipidemia-patient will remain on her statin #8 congestive heart failure with normal ejection fraction continue Lasix #9 mild pulmonary hypertension-continue Lasix Total clinical time spent by myself addressing the patient's medical issues, reviewing all of her data, and collaborating with the patient's care team: 35 minutes Charges/Coding Visit Charges Inpatient E&M: 85652 Subs Hosp L2 06/10/25 0327 Cosigner Signature (if applicable): CC: ~ Signed [facility]07-26-2025 Progress note [facility] Medical Records Department [address] [place] [address] Progress Note - Hospitalist 06/08/252037 MR#: [id number] Acct: [id number] Name: VASILE MILLER Rep #:[id number] : 1940 84 From: Todd Lane DO PCP: Dr. Terrell Schafer MD Status:A DM IN Location: [place] [address] Reason for Visit Chief Complaint: Increased confusion, malaise Subjective Subjective Patient was seen and examined today, an MRI was attempted but the patient was too agitated to undergo the procedure. At times today, patient was appropriate,at other times she was very confused and agitated, she removed her telemetry which I discontinued, I also discontinued the patient's catheter, patient has a hard time keeping the oxygen on when she gets agitated and I had a talk with thefamily members and told them that she will most likely take the oxygen off and it would be hard to keep her on oxygen. Her pulse ox on room air was 86% today. I have given her IV Haldol today for agitationwhich worked very well, I have also written for IM Haldol because she removed her IV, I do not think she needs any more IV Lasix at this time so I kept the IV out. I wrote for oral Seroquel to start tonight-50 mg twice daily but I do not know if they will be able to give it to the patient. Objective Data Objective Data Vital Signs: Vital Signs Temp Pulse Resp BP Pulse Ox O2 Del Method O2 Flow Rate 98.5 F 85 18 133/68 H 86 Room Air 2 06/08/25 14:30 06/08/25 14:30 06/08/25 14:30 06/08/25 14:30 06/08/25 16:56 06/08/25 16:56 06/08/25 14:30 Oxygen Flow Rate (L/min) 2 Oxygen Delivery Method Room Air Weight: 99.4 kg Body Mass Index (BMI) 36.4 Intake & Output: Intake and Output for Last 24 Hours 06/06/25 06/07/25 06/08/25 23:59 23:59 23:59 Intake Total 1050 / 1050 1375 / 1375 104 / 104 Output Total 850 / 850 1250 / 1250 1300 / 1300 Balance 200 / 200 125 / 125 -1196 / -1196 Lab / Micro Data 06/07/25 06:09 06/10/25 06:00 Labs: Laboratory Results - last 24 hr 06/07/25 20:39: POC Glucose 175 H 06/08/25 00:06: POC Glucose 259 H 06/08/25 00:24: PT 16.8 H, INR 1.3, Sodium 135, Potassium 3.7, Chloride 96 L, Carbon Dioxide 20.0 L, Anion Gap 19 H, BUN 17, Creatinine 0.93, Estim Creat ClearCalc 54.24, Est GFR (MDRD) Non-Af 61, BUN/Creatinine Ratio 18.5, Glucose 277 H, Hemoglobin A1c 8.9 H, Calcium 9.3, Magnesium 1.7, Triglycerides 146, [id number], LDL Cholesterol, Calc 50, VLDL Cholesterol 29, HDL Cholesterol 41, Cholesterol/HDL Ratio 2.95 06/08/25 06:46: POC Glucose 183 H Micro: Microbiology 06/06/25 18:30 Urine Catheter - Catheter Urine Culture - Preliminary Culture exhibits no growth. 06/06/25 23:10 Mucosa - Nasopharyngeal Respiratory Panel (PCR) - Final 06/06/25 23:11 Nasal Secretion MRSA (PCR) - Final 06/07/25 01:35 Urine Catheter - Ayala Legionella Antigen - Final 06/07/25 01:35 Urine Catheter - Ayala Streptococcus pneumoniae Antigen (M - Final Radiography Diagnostic Testing: Radiology Impression Head/Neck CTA 06/07/25 20:50 IMPRESSION: Exam is nondiagnostic, particularly in the neck region. However, there is no evidence for acute cervical or intracranial arterial pathology. Patent dural venous sinuses. Recommend repeat imaging as clinically determined. Reading Location: [place] [address] 06/07/25 20:51 IMPRESSION: No acute, large territorial infarction. Dr. Reardon was notified by Sophie Garcia at 9:10 Pm EST on 06/07/2025. Reading Location: [facility] Echocardiogram 06/07/25 21:28 Interpretation Summary The estimated ejection fraction is 60 %. Unable to assess diastolic dysfunction. The left atrium is mildly enlarged. Mild (1+) mitral valve insufficiency. Ordering Physician: Jana Reardon Referring Physician: Terrell Schafer Performed By: Natali Augustine RDCS Rhythm Strip Rhythm Strip: A-fib Rate: 108 Ectopy: None Physical Exam Narrative alert and no apparent distress General Appearance: well kempt and well developed Orientation / Consciousness: awake HEENT normocephalic, head/scalp atraumatic and moist oral mucous membranes Eyes PERRL, EOMs intact bilaterally and conjunctivae normal Neck supple, no JVD, thyroid normal and no carotid bruits General: trachea midline Resp normal respiratory effort, no retractions, no use of accessory muscles and clearto auscultation bilaterally Auscultation: Negative for rales, rhonchi or wheezes Cardio regular rate, regular rhythm, S1 normal heart sound, S2 normal heart sound, no murmurs, no rub and no gallops GI normal to inspection, nondistended, normoactive bowel sounds, soft to palpation,non-tender and non-distended Extremity no clubbing, cyanosis or edema Skin no rashes or lesions noted General Skin Exam: no breakdown Neuro CN's II-XII intact bilaterally, moves all extremities, no focal motor deficits and no sensory deficits noted Neuro Narrative: Patient is confused Sensorium / Orientation: awake and alert Speech: speech normal Psych Psych Narrative: Patient is alert but confused Assessment & Plan Assessment/Plan (1) History of dementia: PLAN: Plan 1. Altered mental status with hypoxia and generalized debility-I feel the patient does have an element of congestive heart failure and I placed her on IV Lasix. I think is unlikely she has pneumonia and I took her off her antibiotics. She will be seen by PT and OT. Most likely she will need [facility]. I doubted that the patient has had a CVA, I will reevaluate her tomorrow for possible repeat CTA since she is unable to undergo an MRI. #2 paroxysmal atrial fibrillation-patient is on Coumadin currently and metoprolol #3 chronic dementia-complicates care, management, recovery, and prognosis #4 valvular heart disease-patient has a bioprosthetic aortic valve #5 hypothyroidism-patient will remain on Synthroid #6 essential hypertension-patient will remain on her present medications #7 hyperlipidemia-patient will remain on her statin Total clinical time spent by myself addressing the patient's medical issues, reviewing all of her data, and collaborating with the patient's care team: 35 minutes Charges/Coding Visit Charges Inpatient E&M: 72376 Subs Hosp L2 06/10/25 1433 Cosigner Signature (if applicable): CC: ~ Signed [facility]07-26-2025 Progress note [facility] Medical Records Department [address] [place] [address] Progress Note - Hospitalist 06/07/25 0706 MR#: [id number] Acct: [id number] Name: MILLERVASILERA SORIANO Rep #:[id number] : 1940 84 From: Todd Lane DO PCP: Dr. Terrell Schafer MD Status:A DM IN Location: [place] [id number]- [id number] Reason for Visit Chief Complaint: Increased confusion, malaise Subjective Subjective Patient was seen and examined today, I talked with her family was in the room atthe time of my examination this morning. Patient is not agitated at the time ofmy exam, she is complaining of bladder discomfort however due to her Ayala, I gave the order to nursing to discontinue the Ayala catheter. In reviewing her chart this morning, I feel that the most likely explanation for the patient's hypoxia is congestive heart failure not pneumonia, I decided to stop her antibiotics and placed her on IV Lasix. Her INR is low and I have adjusted the dose of her warfarin. Objective Data Objective Data Vital Signs: Vital Signs Temp Pulse Resp BP Pulse Ox O2 Del Method O2 Flow Rate 97.8 F 86 16 161/91 H 92 Room Air 2 06/07/25 13:18 06/07/25 13:18 06/07/25 13:18 06/07/25 13:18 06/07/25 13:18 06/07/25 13:18 06/07/25 07:52 Oxygen Flow Rate (L/min) 2 Oxygen Delivery Method Room Air Weight: 101.9 kg Body Mass Index (BMI) 37.3 Intake & Output: Intake and Output for Last 24 Hours 06/05/25 06/06/25 06/07/25 23:59 23:59 23:59 Intake Total 1050 / 1050 1255 / 1255 Output Total 850 / 850 1250 / 1250 Balance 200 / 200 5 / 5 Lab / Micro Data 06/07/25 06:09 06/10/25 06:00 Labs: Laboratory Results - last 24 hr 06/06/25 18:30: WBC 9.2, RBC 4.29, Hgb 12.8, Hct 38.6, MCV 90.0, MCH 29.8, MCHC 33.2, RDW Std Deviation 47.7 H, RDW Coeff of Uche 14.6, Plt Count 176, MPV 10.6, Immature Gran % (Auto) 0.400, Neut % (Auto) 77.7 H, Lymph % (Auto) 11.1 L, [place] % (Auto) 9.5, Eos % (Auto) 1.0, Baso % (Auto) 0.3, AbsoluteNeuts (auto) 7.2, Absolute Lymphs (auto) 1.03, Nucleated RBC % 0, PT 18.0 H, INR 1.5, APTT 28.5, Sodium 138, Potassium 3.9, Chloride 98, Carbon Dioxide 24.3, Anion Gap 15, BUN 18, Creatinine 0.80, Estim Creat Clear Calc 63.09, Est GFR (MDRD) Non-Af 73, BUN/Creatinine Ratio 22.1 H, Glucose 239 H, Calcium 9.9, Total Bilirubin 1.48 H, AST 26, ALT 16, Alkaline Phosphatase 81, Total Protein 7.2, Albumin 4.4, Globulin 2.8, Albumin/Globulin Ratio 1.5, Urine Color Straw, Urine Clarity Clear, Urine pH 6.0, Ur Specific Orting 1.015, Urine Protein 100 H, Urine Glucose (UA) 50 H, Urine Ketones 15 H, Urine Occult Blood 10 H, Urine Nitrite Negative, Urine Bilirubin Negative, Urine Urobilinogen Normal, Ur Leukocyte Esterase Negative, Urine RBC 0-5 SEEN, Urine WBC 0-5 SEEN, Ur Squamous Epith Cells 0-5 SEEN, Urine Bacteria 0 SEEN, Hyaline Casts 0-5 SEEN, Urine Mucus 0 SEEN 06/06/25 18:35: Lactic Acid 1.8 06/06/25 20:59: Magnesium 1.6, Ammonia 14.8 06/06/25 21:59: Procalcitonin 0.03 06/06/25 22:36: POC Glucose 214 H 06/07/25 06:04: Sodium 139, Potassium 3.8, Chloride 102, Carbon Dioxide 25.7, Anion Gap 11, BUN 14,Creatinine 0.64 L, Estim Creat Clear Calc 63.05, Est GFR (MDRD) Non-Af 88, BUN/Creatinine Ratio 21.6 H, Glucose 167 H, Calcium 8.8, TotalBilirubin 1.22, AST 21, ALT 13, Alkaline Phosphatase 61, NT pro BNP II 3397 H, Total Protein 6.1, Albumin 3.5, Globulin 2.5, Albumin/Globulin Ratio 1.4, TSH 0.941 06/07/25 06:09: WBC 6.1, RBC 3.59 L, Hgb 10.7 L, Hct 32.4 L, MCV 90.3, MCH 29.8,MCHC 33.0, RDW Std Deviation 47.5 H, RDW Coeff of Uche 14.3, Plt Count 141 L, MPV10.5, Immature Gran % (Auto) 0.700, Neut % (Auto) 63.8, Lymph % (Auto) 20.9, [place] % (Auto) 12.0 H, Eos % (Auto) 2.3, Baso % (Auto) 0.3, Absolute Neuts (auto) 3.9, Absolute Lymphs (auto) 1.27, Nucleated RBC % 0, PT 17.3 H, INR 1.4 06/07/25 06:34: POC Glucose 149 H Micro: Microbiology 06/06/25 23:10 Mucosa - Nasopharyngeal Respiratory Panel (PCR) - Final 06/06/25 23:11 Nasal Secretion MRSA (PCR) - Final 06/07/25 01:35 Urine Catheter - Ayala Legionella Antigen - Final 06/07/25 01:35 Urine Catheter - Ayala Streptococcus pneumoniae Antigen (M - Final ABG Data ABG results: ABG 06/06/25 21:14 Specimen Type CARSON Sample Site Not entered VBG pH 7.38 VBG pO2 40 VBG HCO3 29 H VBG Total CO2 31 VBG O2 Sat (Calc) 73 H VBG Base Excess 4 H POC Mix VBG pCO2 Pt Tmp 48.7 O2 Delivery Device Not entered Radiography Diagnostic Testing: Radiology Impression Brain CT 06/06/25 18:28 IMPRESSION: No acute intracranial abnormality. Reading Location: [id number] Chest X-Ray 06/06/25 19:04 IMPRESSION: No focal consolidations. Mild pulmonary vascular congestion and interstitial edema. Mild cardiomegaly. Reading Location: [id number] Chest X-Ray 06/07/25 05:38 IMPRESSION: There is cardiomegaly with prominent central vascular markings and increased interstitial markings consistent with CHF. An overlying patchy consolidation is present in the right upper lung and left perihilar region. Reading Location: [facility] Rhythm Strip Rhythm Strip: A-fib Rate: 108 Ectopy: None Physical Exam Const alert and no apparent distress General Appearance: well kempt and well developed Orientation / Consciousness: awake HEENT normocephalic, head/scalp atraumatic and moist oral mucous membranes Eyes PERRL, EOMs intact bilaterally and conjunctivae normal Neck supple, no JVD, thyroid normal and no carotid bruits General: trachea midline Resp normal respiratory effort, no retractions, no use of accessory muscles and clearto auscultation bilaterally Auscultation: Negative for rales, rhonchi or wheezes Cardio regular rate, regular rhythm, S1 normal heart sound, S2 normal heart sound, no murmurs, no rub and no gallops GI normal to inspection, nondistended, normoactive bowel sounds, soft to palpation,non-tender and non-distended Extremity no clubbing, cyanosis or edema Skin no rashes or lesions noted General Skin Exam: no breakdown Neuro CN's II-XII intact bilaterally, moves all extremities, no focal motor deficits and no sensory deficits noted Neuro Narrative: Patient is confused Sensorium / Orientation: awake and alert Speech: speech normal Psych Psych Narrative: Patient is alert but confused Assessment & Plan Assessment/Plan (1) History of dementia: PLAN: Plan 1. Altered mental status with hypoxia and generalized debility-I feel the patient does have an element of congestive heart failure and I placed her on IV Lasix. I think is unlikely she has pneumonia and I took her off her antibiotics. She will be seen by PT and OT. Most likely she will need [facility] [place] [facility]. #2 paroxysmal atrial fibrillation-patient is on Coumadin currently and metoprolol #3 chronic dementia-complicates care, management, recovery, and prognosis #4 valvular heart disease-patient has a bioprosthetic aortic valve #5 hypothyroidism-patient will remain on Synthroid #6 essential hypertension-patient will remain on her present medications #7 hyperlipidemia-patient will remain on her statin Total clinical time spent by myself addressing the patient's medical issues, reviewing all of her data, and collaborating with the patient's care team: 50 minutes Charges/Coding Visit Charges Inpatient E&M: 84389 [facility]osp 06/10/25 8027 Cosigner Signature (if applicable): CC: ~ Signed [facility]07-26-2025 Hospital Discharge instructionsAdditional Instructions [facility]: [facility]: 1(137) 495-773007-24-2025 Progress note Author Jana Reardon [facility] Note Date/Time June 08, 2025 4:52 am [facility] Medical Records Department [address] [place] [address] Progress Note - Hospitalist 06/07/252156 MR#: [id number] Acct: [id number] Name: VASILE MILLER Rep #:[id number] : 1940 84 From: Jana Reardon MD PCP: Dr. Terrell Schafer MD Status:A DM IN Location: [place] [address] Hospitalist Note Patient with continued agitation, neurologically remains at prior baseline before stroke alert. Will administer haldol at this time and have PRN given her predisposition toward physical harm of staff. 06/07/252157 <Electronically signed by Jana Reardon MD> Cosigner Signature (if applicable): CC: ~ Signed ADDENDUM by Dr. Jana Reardon MD on 06/07/25 at 2354 Addendum Patient with continued severe agitation. Family more comfortable with ativan usage than haldol. Will administer low dose ativan. Concern for telemetry changes but difficult given severity of agitation. EKG obtained but notable tachycardic at that time. Will attempt to repeat EKG once less agitated. Noted 06/06/25 Mag 1.6 and low in the past also. Will request repeat level now to be cautious. K 3.8 today. 06/07/252353<Electronically signed by Jana Reardon MD> Cosigner Signature (if applicable): cc: ~* Signed ADDENDUM by Dr. Jana Reardon MD on 06/08/25 at 0057 Addendum Patient with improved agitation with ativan. EKG with PAF w/ RVR although improved rate from earlier with agitation. Will administer cardizem 10 mg IV x 1. 06/08/2556<Electronically signed by Jana Reardon MD> Cosigner Signature (if applicable): cc: ~* Signed ADDENDUM by Dr. Jana Reardon MD on 06/08/25 at 0452 Addendum Patient more successfully sedated with Ativan. Still mild RVR but improved given decreased agitation. Will administer another Cardizem 10 mg IV bolus x 1 now. Magnesium 1.7 with 2 g IV administered. 06/08/25451<Electronically signed by Jana Reardon MD> Cosigner Signature (if applicable): cc: ~* Signed [facility] Work Phone: 1(235) 164-996607-24-2025 Progress note [facility] Medical Records Department [address] [place] [address] Progress Note - Hospitalist 06/07/252156 MR#: [id number] Acct: [id number] Name: VASILE MILLER Rep #:[id number] : 1940 84 From: Jana Reardon MD PCP: Dr. Terrell Schafer MD Status:A DM IN Location: [place] [address] Hospitalist Note Patient with continued agitation, neurologically remains at prior baseline before stroke alert. Will administer haldol at this time and have PRN given her predisposition toward physical harm of staff. 06/07/252157 Cosigner Signature (if applicable): CC: ~ Signed ADDENDUM by Dr. Jana Reardon MD on 06/07/25 at 235 Addendum Patient with continued severe agitation. Family more comfortable with ativan usage than haldol. Will administer low dose ativan. Concern for telemetry changes but difficult given severity of agitation. EKG obtained but notable tachycardic at that time. Will attempt to repeat EKG once less agitated.Noted 06/06/25 Mag 1.6 and low in the past also. Will request repeat level now to be cautious. K 3.8today. 06/07/252353 Cosigner Signature (if applicable): cc: ~* Signed ADDENDUM by Dr. Jana Reardon MD on 06/08/25 at 005 Addendum Patient with improved agitation with ativan. EKG with PAF w/ RVR although improved rate from earlier with agitation. Will administer cardizem 10 mg IV x 1. 06/08/2556 Cosigner Signature (if applicable): cc: ~* Signed ADDENDUM by Dr. Jana Reardon MD on 06/08/25 at 0452 Addendum Patient more successfully sedated with Ativan. Still mild RVR but improved given decreased agitation. Will administer another Cardizem 10 mg IV bolus x 1 now. Magnesium 1.7 with 2 g IV administered. 06/08/25451 Cosigner Signature (if applicable): cc: ~* Signed [facility]07-23-2025 Progress note Author Jana Reardon [facility] Note Date/Time June 07, 2025 9:28 pm [facility] Medical Records Department [address] [place] [address] Progress Note - Hospitalist 06/07/252124 MR#: [id number] Acct: [id number] Name: VASILE MILLER Rep #:[id number] : 1940 84 From: Jana Reardon MD PCP: Dr. Terrell Schafer MD Status:A DM IN Location: [place] [address] Hospitalist Note STROKE ALERT INITIATED 06/07/25 @ 8:39 pm Patient noted to have been at baseline ~ 5 minutes prior with family present with her with onset expressive aphasia, dysarthria and mild R sided facial droop. BS appropriate, VS appropriate. Transitioned to CT and CT head, CTA head obtained, unable to obtain CTA neck given agitation. No acute findings noted. Patient resolved symptoms by the time scans completed. She became similar to dayprior with increased agitation, yelling, eventually calming. Discussed case with stroke alert physician and decision to defer tenecteplase at this time. Noted intention for continued neurology evaluation. Recommended continued Coumadin with INR trending. Recommended also MRI of the brain but noted given her significant agitation with dementia if this was unable to be obtained then to not necessarily push for it as this would not change patient management. 06/07/252127 <Electronically signed by Jana Reardon MD> Cosigner Signature (if applicable): CC: ~ Signed [facility] Work Phone: [phone]) 778-775407-23-2025 Radiology Diagnostic study note [facility] Imaging Services [address] [place], [place] [id number] STROKE CTA Head AND Neck W/Con MR#: [id number] Acct: [id number] Name: VASILE MILLER Rep #: [id number] : 1940 F 84 From: Cheyenne Wolf MD PCP: Dr. Terrell Schafer MD Status: A DM IN Study:STROKE CTA Head AND Neck W/Con Date of Exam: 06/07/25 Exam# [id number] Ordering Dr: Doretha Reardon MD PROCEDURE: STROKE CTA HEAD AND NECK W/CON 06/07/2025 REASON FOR EXAM: STROKE TECHNIQUE: STROKE CTA HEAD AND NECK W/CON Multiplanar Sagittal and Coronal images were obtained. CONTRAST: Isovue 370 VOLUME: 100 mL One or more dose reduction techniques were used (e.g., Automated exposure control, adjustment of the mA and/or kV according to patient size, use of iterative reconstruction technique). RADIATION DOSE SUMMARY: CTDlvol: 50 mGy DLP: 758 mGycm COMPARISON: Head CT same day FINDINGS: There is significant motion artifact, particularly in the neck region, which is nondiagnostic. Small bilateral pleural effusions. Lung bases are otherwise clear. Unremarkable superior mediastinum. Cervical spine scoliosis and degeneration. Neck soft tissues show no acute findings. No abnormal brain enhancement. Unremarkable thoracic arch. The common carotid arteries, extracranial internal carotid arteries, and vertebral arteries are patent. Mild calcified plaque. Intracranial arteries are patent. There is mild/moderate calcified plaque in the cavernous sinus portions of each ICA, without high-grade stenosis. The dural venous sinuses are patent. No high-grade stenosis, thrombosis, dissection or aneurysm. CT/STROKE CTA Head AND Neck W/Con IMPRESSION: Exam is nondiagnostic, particularly in the neck region. However, there is no evidence for acute cervical or intracranial arterial pathology. Patent dural venous sinuses. Recommend repeat imaging as clinically determined. Reading Location: [place] [address] CC: Dr. Jana Reardon MD; Dr. Terrell Schafer MD ~ Bulk Filler: Signed [facility]07-23-2025 Progress note [facility] Medical Records Department [address] [place] [address] Progress Note - Hospitalist 06/07/252124 MR#: [id number] Acct: [id number] Name: VASILE MILLER Rep #:[id number] : 1940 84 From: Jana Reardon MD PCP: Dr. Terrell Schafer MD Status:A DM IN Location: [place] [address] Hospitalist Note STROKE ALERT INITIATED 06/07/25 @ 8:39 pm Patient noted to have been at baseline ~ 5 minutes prior with family present with her with onset expressive aphasia, dysarthria and mild R sided facial droop. BS appropriate, VS appropriate. Transitioned to CT and CT head, CTA head obtained, unable to obtain CTA neck given agitation. No acute findings noted. Patient resolved symptoms by the time scans completed. She became similar to dayprior with increased agitation, yelling, eventually calming. Discussed case with stroke alert physician and decision to defer tenecteplase at this time. Noted intention for continued neurology evaluation. Recommended continued Coumadin with INR trending. Recommended also MRI of the brain but noted given her significant agitation with dementia if this was unable to be obtained then to not necessarily push for it as this would not change patient management. 06/07/252127 Cosigner Signature (if applicable): CC: ~ Signed [facility]07-23-2025 Radiology Diagnostic study note [facility] Imaging Services [address] [place] [id number] STROKE Brain/Head without Cont MR#: [id number] Acct: [id number] Name: VASILE MILLER Rep #: [id number] : 1940 F 84 From: Shoshana Garcia MD PCP: Dr. Terrell Schafer MD Status: A DM IN Study:STROKE Brain/Head without Cont Date of Exam: 06/07/25 Exam# [id number] Ordering Dr: Doretha Reardon MD PROCEDURE: STROKE BRAIN/HEAD WITHOUT CONT 06/07/2025 REASON FOR EXAM: STROKE ALERT TECHNIQUE: STROKE BRAIN/HEAD WITHOUT CONT Coronal and Sagittal reconstruction series were provided. One or more dose reduction techniques were used (e.g., Automated exposure control, adjustment of the mA and/or kV according to patient size, use of iterative reconstruction technique. RADIATION DOSE SUMMARY: DLP: 1592 mGycm COMPARISON: 06/06/25 FINDINGS: There is no acute infarct, intracranial hemorrhage, or mass effect. There is no hydrocephalus or significant midline shift. Right striatocapsular chronic infarction. There is mild chronic microvascular ischemic changes and mild parenchymal volumeloss. No acute, depressed calvarial fractures. No large scalp hematomas. Bilateral lens surgeries. CT/STROKE Brain/Head without Cont IMPRESSION: No acute, large territorial infarction. Dr. Reardon was notified by Sophie Garcia at 9:10 Pm EST on 06/07/2025. Reading Location: [facility] CC: Dr. Jana Reardon MD; Dr. Terrell Schafer MD ~ Bulk Filler: Signed [facility]07-23-2025 Radiology Diagnostic study note [facility] Imaging Services [address] [place] [address] [id number] Chest 1 View (Portable) MR#: [id number] Acct: [id number] Name: VASILE MILLER Rep #: [id number] : 1940 F 84 From: Eze Kearney MD PCP: Dr. Terrell Schafer MD Status: A DM IN Study:Chest 1 View (Portable) Date of Exam: 06/07/25 Exam# [id number] Ordering Dr: Doretha Reardon MD PROCEDURE: CHEST 1 VIEW (PORTABLE) 06/07/2025 REASON FOR EXAM: DYSPNEA, COUGH TECHNIQUE: Frontal view of the chest. COMPARISON: June 06, 2025 FINDINGS: A stent is noted overlying the mid heart. There is cardiomegaly with prominent central vascular markings and increased interstitial markings consistent with CHF. An overlying patchy consolidation ispresent in the rightupper lung and left perihilar region. There is no pneumothorax. There is no significant effusion. Aortic calcificationsare visible. There is no acute bony abnormality. RAD/Chest 1 View (Portable) IMPRESSION: There is cardiomegaly with prominent central vascular markings and increased interstitial markings consistent with CHF. An overlying patchy consolidation is present in the right upper lung and left perihilar region. Reading Location: [facility] CC: Dr. Jana Reardon MD; Dr. Terrell Schafer MD ~ Bulk Filler: Signed [facility]07-23-2025 History and physical note Author Jana Reardon [facility] Note Date/Time June 06, 2025 10:3 3pm [facility] Medical Records Department [address] [place] [address] H&P Exam - Hospitalist 06/06/252010 MR#: [id number] Acct: [id number] Name: VASILE MILLER Rep #:[id number] : 1940 84 From: Jana Reardon MD PCP: Dr. Terrell Schafer MD Status:A DM IN Location: [place] [address] HPI - General General Date of Admission: 06/06/25 Date of Service: 06/06/25 Chief Complaint: Increased confusion, malaise HPI Narrative The patient is an 84 y/o F w/ PMHx: Nonobstructive CAD, CKD stage II per GFR trending, Dementia unclear type with unclear behavioral disturbance history, PAF, HTN, HLD, Hx TIA, Hypothyroidism, Diabetes mellitus type II with chronic neuropathy, Valvular heart disease s/p TAVR, Obesity, Allergic rhinitis who presents to [facility] ED on 06/06/2025 with history of worsening confusion starting theday prior reportedly not feeling well per family over the last 48 hours with mental status progressively worsening since onset with no reported fever per family not on any recent antibiotic therapies or recent illnesses otherwise but given mental status change and decline status prompted ED evaluation. Workup in the ED included T98.5, heart rate 105, BP 176/87, respiratory rate 19, 92% on 2 L nasal cannula--> most recent T99.6, heart rate 108, BP 151/98, respiratory rate 20, 93% on 3 L nasal cannula, CBC with WC 9.2, hemoglobin 12.8, platelet 176 without marked shift, coags with INR 1.5, CMP with glucose 239, BUN/creatinine 18/0.8, GFR 73, lactic acid 1.8, T. bili 1.48, urinalysis with protein 100, glucose 50, ketones 15, occult blood 10, negative nitrite, negativeleukocyte Estrace with no evidence of UTI urine culture pending per ED, blood culture pending per ED, CT brain with no acute intracranial findings, chest x- ray with cardiomegaly with no acute cardiopulmonary findings with chronic changes but final read pending upon requested evaluation of patient, EKG with atrial fibrillation with rate 108 with a left bundle branch block. In the ED patient ministered 1 L normal saline as well as Ativan 1 mg IV x 1. In the ED per discussion with family patient was administered the Ativan secondary to agitation and trying to pull out lines. They do note that she is extremely stubborn. [facility] Medical History Elevated bilirubin Lumbar radiculopathy 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 extremity edema Chronic back pain Fatigue Hepatitis Dementia TIA (transient ischemic attack) Hypercoagulable state due to atrial fibrillation Hypothyroidism Type 2 diabetes mellitus Heart valve transplant recipient Heart valve problem Vitamin deficiency Pneumonia Pancreatitis Murmur, cardiac Hives Generalized headaches Gallstones Cataracts, both eyes Transfusion history Atrial fibrillation terminologist (current) use of anticoagulants Persistent atrial fibrillation Nonobstructive atherosclerosis of coronary artery Secondary pulmonary arterial hypertension Aortic stenosis with bicuspid valve Essential (primary) hypertension Environmental allergies Hyperlipidemia Paroxysmal atrial fibrillation Rapid atrial fibrillation (12/2019) Diabetes Morbid obesity with BMI of 40.0-44.9, adult Home Medications ?Medication ?Instructions ?Recorded ?Last Taken ?Type pen needle, diabetic 32 gauge x #400 ea 10/09/20 Unkno wn Rx " (BD Ultra-Fine Kimber Pen Needle) hydrochlorothiazide 25 mg tablet 25 mg PO DAILY BLOOD PRESSURE #90 05/07/21 08/21/24 Rx tabs cetirizine 5 mg tablet 5 mg PO DAILY ALLERGIES 05/16 06/08 Unknown History 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,chain maker,cont 07/28/24 Unknown History ([employer]) glucagon HCl 1 mg solution for 1 mg subcut Q20M PRN HY POGLYCEMIA 07/28/24 Unknown History injection (Glucagon (HCl) Emergency Kit) nystatin 100,000 unit/gram topical 1 applic topical BI D PRN FUNGAL 07/28/24 Unknown History powder INFECTION trolamine salicylate 10 % topical 1 applic topical JUAN LY PRN 07/28/24 Unknown History cream (Myoflex) ARTHRITIS alendronate 70 mg tablet 70 mg PO QWEEK OSTEOPEROSIS 08/22/24 Unknown History clotrimazole-betamethasone 1 1 applic topical BID PRN FUNGAL 08/22/24 Unknown History %-0.05 % topical cream INFECTION ketoconazole 2 % shampoo 1 applic topical UD PRN SHEA AL 08/22/24 Unknown History INFECTION ketoconazole 2 % topical cream 1 applic topical DAILY PRN FUNGAL 08/22/24 Unknown History INFECTION magnesium chloride 71.5 mg 143 mg PO DAILY SUPPLEMENT 08/22/24 08/21/24 History (magnesium chloride) tablet,delayed release ergocalciferol (vitamin D2) 1,250 50,000 unit PO QWEEK #20 caps 11/07/24 Unknown Rx mcg (50,000 unit) capsule metoprolol tartrate 100 mg tablet 100 mg PO BID BLOOD PRESSURE #180 11/21/24 Unknown Rx tabs warfarin 4 mg tablet 4 mg PO .COMPLEX #180 tabs 0 11/22/24 Unknown Rx acetaminophen 500 mg tablet 1,000 mg PO BID PRN Unknown History ascorbic acid (vitamin C) 1,000 mg 1 g PO QDAY 5 Unknown History capsule atorvastatin 40 mg tablet 40 mg PO DAILY CHOLESTEROL #90 02/13/25 Unknown Rx tabs furosemide 20 mg tablet 20 mg PO DAILY EDEMA #90 ta bs 02/13/25 Unknown Rx losartan 100 mg tablet 100 mg PO DAILY BLOOD PRESSU RE 02/13/25 Unknown Rx #90 tabs warfarin 5 mg tablet 5 mg PO QDAY 02/13/25 Unknow n History blood sugar diagnostic (FreeStyle #100 ea 02/23/25 Unk nown Rx Lite Strips) 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 meter (FreeStyle #1 ea 02/23/25 Unknown Rx Lite Meter kit) lancets 28 gauge (FreeStyle #200 ea 02/23/25 Unknown R x Lancets) gabapentin 100 mg capsule 100 mg PO TID 03/13/25 Unkno wn History insulin aspart 20 unit subcut TID #18 mL Unknown Rx (niacinamide)(U-100) 100 unit/mL(3 mL) subcutaneous pen (Fiasp FlexTouch U-100 Insulin) insulin degludec 100 unit/mL (3 16 unit subcut BID Unknown History mL) subcutaneous pen (Tresiba FlexTouch U-100 insulin) oxycodone 5 mg capsule 5 mg PO BID PRN 03/13/25 Unk nown History tizanidine 2 mg capsule 2 mg PO Q8H PRN 03/13/25 Unk nown History warfarin 1 mg tablet 1 mg PO 3XW 03/13/25 Unknown History levothyroxine 25 mcg tablet 25 mcg PO QDAY #90 tabs Unknown Rx Allergy/AdvReac Type Severity Reaction Status Date / Time acetaminophen (From Excedrin Allergy Intermediate headache Verified 06/06/25 18:06 Migraine) aspirin Allergy Intermediate headache Verified 06/06/25 18:06 caffeine (From Excedrin Allergy Intermediate headache Verified 06/06/25 18:06 Migraine) mold (mold spores) Allergy Intermediate respiratory Verified 06/06/25 18:06 distress lisinopril AdvReac Severe Cough Verified 06/06/25 18:06 monosodium glutamate (msg) AdvReac Intermediate PT UNSURE Verified 06/06/25 18:06 OF REACTION wheat AdvReac Intermediate PT UNSURE Verified 06/06/25 18:06 OF REACTION liraglutide (From Victoza) AdvReac Other Verified 06/06/25 18:06 Family History Father CAD (coronary artery disease) Brother Diabetes Sister Diabetes Breast cancer Hyperlipidemia Hypertension Arthritis Lupus Colon cancer Grandmother CVA (cerebral vascular accident) Grandfather Sudden cardiac Son Atrial fibrillation Mother Arthritis Other High cholesterol Surgical History S/P TAVR (transcatheter aortic valve replacement) History of left heart catheterization (03/11/12) History of appendectomy History of hysterectomy History of cholecystectomy Social History adopted: No household members: other details: daughter current occupational status: retired Smoking Status: Never smoker alcohol intake: current alcohol intake frequency: holidays/special occasions only details: wine what type of physical activity do you participate in: none seatbelt use: never do you feel safe at home: No ROS Review of Systems ROS Unobtainable: due to encephalopathy Vital Signs Vital Signs Vital Signs: 06/06/25 18:06 06/06/25 18:08 06/06/25 18:38 Temperature 98.6 F 98.6 F Temperature Source Oral Oral Pulse Rate 105 H 105 H Respiratory Rate 18 18 Blood Pressure 102/56 L 102/56 L Blood Pressure Mean 71 71 Pulse Ox 99 94 Oxygen Delivery Method Room Air Room Air Room Air Oxygen Flow Rate (L/min) 06/06/25 19:03 06/06/25 19:08 Temperature 98.5 F Temperature Source Oral Pulse Rate 100 105 H Respiratory Rate 19 H Blood Pressure 176/87 H Blood Pressure Mean 116 Pulse Ox 92 Oxygen Delivery Method Nasal Cannula Oxygen Flow Rate (L/min) 2 Weight Weight: 224 lb 13.944 oz Body Mass Index (BMI) 37.4 Physical Exam Narrative Physical Examination: General: Laying in the ED bed, recent Ativan, currently not alert or able to answer any orientation questions, laying in the ED bed, fatigued. Skin: Normal color, normal turgor, no icterus, no cyanosis except occasional stage ecchymoses, abrasions, significant fold intertrigo. HEENT: AT/NC, EOMI, PERRLA, dry MM, no carotid bruits or JVD noted. Lungs: Diminished, greater bases, mildly increased respiratory rate but no distress, no markedly appreciated rales, ronchi or wheezing. Heart: Irregular irregular; no gallop, rub audible. Abdomen: Soft, obese, no obvious grimacing with palpation, distant bowel sounds,difficult to discern distention HSM given habitus. Extremities: No cyanosis, no clubbing, pedal to mid reno edema which family notes is chronic. Neurological: Laying in the ED bed, recent Ativan, currently not alert or able to answer any orientation questions, laying in the ED bed, fatigued, cognitive function diminished baseline with underlying dementia but currently significantly not baseline intact; pupils equally reactive to light and accommodation, difficult to assess cranial nerves given currently lethargic status post recent Ativan, will spontaneously move extremities, strength difficult to assess given recent sedation, strength severely accordingly diffusely decreased. Psychiatric: Affect appears currently flat, lethargic no acute evidence of depressive or anxiety feelings. Results Lab / Micro Data 06/06/25 18:30 06/06/25 18:30 Labs: Laboratory Results - last 24 hr 06/06/25 18:30: WBC 9.2, RBC 4.29, Hgb 12.8, Hct 38.6, MCV 90.0, MCH 29.8, MCHC 33.2, RDW Std Deviation 47.7 H, RDW Coeff of [place] 14.6, Plt Count 176, MPV 10.6, Immature Gran % (Auto) 0.400, Neut % (Auto) 77.7 H, Lymph % (Auto) 11.1 L, [place] % (Auto) 9.5, Eos % (Auto) 1.0, Baso % (Auto) 0.3, Absolute Neuts (auto) 7.2, Absolute Lymphs (auto) 1.03, Nucleated RBC % 0, PT 18.0 H, INR 1.5, APTT 28.5, Sodium 138, Potassium 3.9, Chloride 98, Carbon Dioxide 24.3, Anion Gap 15, BUN 18, Creatinine 0.80, Estim Creat Clear Calc 63.09, Est GFR (MDRD) Non-Af 73, BUN/Creatinine Ratio 22.1 H, Glucose 239 H, Calcium 9.9, Total Bilirubin 1.48 H, AST 26, ALT 16, Alkaline Phosphatase 81, Total Protein 7.2, Albumin 4.4, Globulin 2.8, Albumin/Globulin Ratio 1.5, Urine Color Straw, Urine Clarity Clear, Urine pH 6.0, Ur Specific [place] 1.015, Urine Protein 100 H, Urine Glucose (UA) 50 H, Urine Ketones 15 H, Urine Occult Blood 10 H, Urine Nitrite Negative, Urine Bilirubin Negative, Urine Urobilinogen Normal, Ur Leukocyte Esterase Negative, Urine RBC 0-5 SEEN, Urine WBC 0-5 SEEN, Ur Squamous Epith Cells 0-5 SEEN, Urine Bacteria 0 SEEN, Hyaline Casts 0-5 SEEN, Urine Mucus 0 SEEN 06/06/25 18:35: Lactic Acid 1.8 Rhythm Strip Rhythm Strip: A-fib Rate: 108 Ectopy: None Imaging Radiology Impression Brain CT 06/06/25 18:28 IMPRESSION: No acute intracranial abnormality. Reading Location: [facility] Assessment & Plan Assessment/Plan (1) Acute confusion: PLAN: Plan The patient is an 84 y/o F w/ PMHx: Nonobstructive CAD, CKD stage II per GFR trending, Dementia unclear type with unclear behavioral disturbance history, PAF, HTN, HLD, Hx TIA, Hypothyroidism, Diabetes mellitus type II with chronic neuropathy, Valvular heart disease s/p TAVR, Obesity, Allergic rhinitis who presents to [facility] ED on 06/06/2025 with history of worsening confusion starting theday prior reportedly not feeling well per family over the last 48 hours with mental status progressively worsening since onset with no reported fever per family not on any recent antibiotic therapies or recent illnesses otherwise but given mental status change and decline status prompted ED evaluation. #1. Altered mentation with hypoxia, debility, unclear etiology w/ adult FTT concerning for possible developing pneumonia versus acute viral syndrome: Given presentation also with mild PAF with RVR with known history to be cautious we will maintain on PCU, will obtain ABG, will obtain ammonia level, will obtain full respiratory viral panel, will obtain procalcitonin, will plan to continue judiciously hydrate with repeat chest x-ray in a.m. to assure no developing pneumonia as etiology especially given mild hypoxia, only interim maintain on IVRocephin and IV azithromycin with de-escalation off if repeat films not marked appearing or if obvious evidence of viral illness on panel, will maintain on oxygen with wean as tolerated to room air, PRN albuterol, maintained on IV Zosyn/Levaquin/Rocephin and Azithromycin/Zosyn, encourage HOB, IS parameters, will attempt to induce sputum culture if able, will obtain urine antigens, urineculture pending per ED, blood culture x 2 pending per ED. If there is no obvious evident infectious cause may need to consider follow-up MRI. PT/OT/case management consulted for discharge planning. #2. Paroxysmal atrial fibrillation: EKG in ED w/ atrial fibrillation with rate less than 110. Will continue hydration, will maintain on telemetry, obtain magnesium level, obtain TSH level. Most recent ECHO as noted 06/14/24 but given rate likely secondary to #1 will hold on repeat ECHO. Will continue Coumadin with INR trending with additional dose x 1 now given subtherapeutic INR upon presentation, continue metoprolol with hold parameters if necessary. #3. Dementia unclear type with unclear behavioral disturbance history: Complicates presentation, maintain on fall and aspiration precautions, not on a regimen for current list, PT/OT/case management consulted for discharge planning. #4. Chronic Kidney Disease Stage II per GFR trending: Admission BUN/Cr 18/0.8, GFR 73, baseline renal function 0.7-1.1, repeat BMP in AM. #5. Chronic normocytic anemia: Admission hemoglobin 12.8, MCV 90, baseline hemoglobin primarily more recently 09-27, will continue to trend. #6. History of TIA: Will continue Coumadin with INR trending, statin therapy, hypertensive regimen, diabetic regimen as noted with adjustments as needed. #7. Valvular heart disease: Most recent echocardiogram noted 06/14/2024 with normal LV size, bioprosthetic AV, LVEF 50%, LV systolic function lower limits ofnormal, mild to moderate TVI. #8. Nonobstructive CAD: Will continue Coumadin with INR trending with additional dose x 1 given subtherapeutic INR upon current presentation, continuestatin therapy, losartan, metoprolol home regimen. #9. Diabetes mellitus type II with chronic neuropathy: Hold oral home regimen, continue home insulin regimen, ADA diet, accu checks w/ ISS, continue patient home gabapentin regimen. #10. Hypothyroidism: Will continue patient home levothyroxine regimen. #11. Hypertension: Continue home regimen including metoprolol, losartan, Lasix,PRN hydralazine. #12. Hyperlipidemia: Will continue patient home statin therapy. #13. Allergic rhinitis: Will continue patient home cetirizine regimen. #14. DVT prophylaxis: Will continue Coumadin with INR trending with an additional dose x 1 given subtherapeutic INR of 1.5 on admission. #15. CODE status: Patient HCPOA is per son who is present and living will is currently in place. Discussed CODE status at length including difference betweenFULL code, DNR-CCA and DNR-CC status. Following discussions about the differences in these status, requested DNR-CCA, no intubation status. Did clarify and confirmed no intubation status. Advanced Care Planning Face to Face Time: 16 minutes. Charges/Coding Visit Charges Inpatient E&M: 55164 Init Hosp L3 Procedures Hospitalists Procedures: 42132 Advncd Care Plan 30 Min 06/06/25 5238 <Electronically signed by Jana Reardon MD> Cosigner Signature (if applicable): CC: Dr. Jana Reardon MD; Dr. Terrell Schafer MD~ Signed [facility] Work Phone: 1(189) 582-184607-22-2025 History and physical note [facility] Medical Records Department [address] [place] [address] H&P Exam - Hospitalist 06/06/252010 MR#: [id number] Acct: [id number] Name: VASILE MILLER Rep #:[id number] : 1940 84 From: Jana Reardon MD PCP: Dr. Terrell Schafer MD Status:A DM IN Location: [facility] [id number] HPI - General General Date of Admission: 06/06/25 Date of Service: 06/06/25 Chief Complaint: Increased confusion, malaise HPI Narrative The patient is an 84 y/o F w/ PMHx: Nonobstructive CAD, CKD stage II per GFR trending, Dementia unclear type with unclear behavioral disturbance history, PAF, HTN, HLD, Hx TIA, Hypothyroidism, Diabetes mellitus type II with chronic neuropathy, Valvular heart disease s/p TAVR, Obesity, Allergic rhinitis who presents to [facility] ED on 06/06/2025 with history of worsening confusion starting theday prior reportedly not feeling well per family over the last 48 hours with mental status progressively worsening since onset with no reported fever per family not on any recent antibiotic therapies or recent illnesses otherwise but given mental status change and decline status prompted ED evaluation. Workup in the ED included T98.5, heart rate 105, BP 176/87, respiratory rate 19, 92% on 2 L nasal cannula--> most recent T99.6, heart rate 108, BP 151/98, respiratory rate 20, 93% on 3 L nasal cannula, CBC with WC 9.2, hemoglobin 12.8, platelet 176 without marked shift, coags with INR 1.5, CMP with glucose 239, BUN/creatinine 18/0.8, GFR 73, lactic acid 1.8, T. bili 1.48, urinalysis with protein 100, glucose 50, ketones 15, occult blood 10, negative nitrite, negativeleukocyte Estrace with no evidence of UTI urine culture pending per ED, blood culture pending per ED, CT brain with no acute intracranial findings, chest x-ray with cardiomegaly with no acute cardiopulmonary findings with chronic changes but final read pending upon requested evaluation of patient, EKG with atrial fibrillation with rate 108 with a left bundle branch block. In the ED patient ministered 1 L normal saline as well as Ativan 1 mg IV x 1. In the ED per discussion with family patient was administered the Ativan secondary to agitation and trying to pull out lines. They do note that she is extremely stubborn. [facility] Medical History Elevated bilirubin Lumbar radiculopathy 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 extremity edema Chronic back pain Fatigue Hepatitis Dementia TIA (transient ischemic attack) Hypercoagulable state due to atrial fibrillation Hypothyroidism Type 2 diabetes mellitus Heart valve transplant recipient Heart valve problem Vitamin deficiency Pneumonia Pancreatitis Murmur, cardiac Hives Generalized headaches Gallstones Cataracts, both eyes Transfusion history Atrial fibrillation terminologist (current) use of anticoagulants Persistent atrial fibrillation Nonobstructive atherosclerosis of coronary artery Secondary pulmonary arterial hypertension Aortic stenosis with bicuspid valve Essential (primary) hypertension Environmental allergies Hyperlipidemia Paroxysmal atrial fibrillation Rapid atrial fibrillation (12/2019) Diabetes Morbid obesity with BMI of 40.0-44.9, adult Home Medications ?Medication ?Instructions ?Recorded ?Last Taken ?Type pen needle, diabetic 32 gauge x #400 ea 10/09/20 Unkno wn Rx " (BD Ultra-Fine Kimber Pen Needle) hydrochlorothiazide 25 mg tablet 25 mg PO DAILY BLOOD PRESSURE #90 05/07/21 08/21/24 Rx tabs cetirizine 5 mg tablet 5 mg PO DAILY ALLERGIES 05/16 06/08 Unknown History 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,chain maker,cont 07/28/24 Unknown [facility] ([facility] [employer]) glucagon HCl 1 mg solution for 1 mg subcut Q20M PRN HY POGLYCEMIA 07/28/24 Unknown History injection (Glucagon (HCl) Emergency Kit) nystatin 100,000 unit/gram topical 1 applic topical BI D PRN FUNGAL 07/28/24 Unknown History powder INFECTION trolamine salicylate 10 % topical 1 applic topical JUAN LY PRN 07/28/24 Unknown History cream (Myoflex) ARTHRITIS alendronate 70 mg tablet 70 mg PO QWEEK OSTEOPEROSIS 08/22/24 Unknown History clotrimazole-betamethasone 1 1 applic topical BID PRN FUNGAL 08/22/24 Unknown History %-0.05 % topical cream INFECTION ketoconazole 2 % shampoo 1 applic topical UD PRN SHAE AL 08/22/24 Unknown History INFECTION ketoconazole 2 % topical cream 1 applic topical DAILY PRN FUNGAL 08/22/24 Unknown History INFECTION magnesium chloride 71.5 mg 143 mg PO DAILY SUPPLEMENT 08/22/24 08/21/24 History (magnesium chloride) tablet,delayed release ergocalciferol (vitamin D2) 1,250 50,000 unit PO QWEEK #20 caps 11/07/24 Unknown Rx mcg (50,000 unit) capsule metoprolol tartrate 100 mg tablet 100 mg PO BID BLOOD PRESSURE #180 11/21/24 Unknown Rx tabs warfarin 4 mg tablet 4 mg PO .COMPLEX #180 tabs 0 11/22/24 Unknown Rx acetaminophen 500 mg tablet 1,000 mg PO BID PRN Unknown History ascorbic acid (vitamin C) 1,000 mg 1 g PO QDAY 5 Unknown History capsule atorvastatin 40 mg tablet 40 mg PO DAILY CHOLESTEROL #90 02/13/25 Unknown Rx tabs furosemide 20 mg tablet 20 mg PO DAILY EDEMA #90 ta bs 02/13/25 Unknown Rx losartan 100 mg tablet 100 mg PO DAILY BLOOD PRESSU RE 02/13/25 Unknown Rx #90 tabs warfarin 5 mg tablet 5 mg PO QDAY 02/13/25 Unknow n History blood sugar diagnostic (FreeStyle #100 ea 02/23/25 Unk nown Rx Lite Strips) 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 meter (FreeStyle #1 ea 02/23/25 Unknown Rx Lite Meter kit) lancets 28 gauge (FreeStyle #200 ea 02/23/25 Unknown R x Lancets) gabapentin 100 mg capsule 100 mg PO TID 03/13/25 Unkno wn History insulin aspart 20 unit subcut TID #18 mL Unknown Rx (niacinamide)(U-100) 100 unit/mL(3 mL) subcutaneous pen (Fiasp FlexTouch U-100 Insulin) insulin degludec 100 unit/mL (3 16 unit subcut BID Unknown History mL) subcutaneous pen (Tresiba FlexTouch U-100 insulin) oxycodone 5 mg capsule 5 mg PO BID PRN 03/13/25 Unk nown History tizanidine 2 mg capsule 2 mg PO Q8H PRN 03/13/25 Unk nown History warfarin 1 mg tablet 1 mg PO 3XW 03/13/25 Unknown History levothyroxine 25 mcg tablet 25 mcg PO QDAY #90 tabs Unknown Rx Allergy/AdvReac Type Severity Reaction Status Date / Time acetaminophen (From Excedrin Allergy Intermediate headache Verified 06/06/25 18:06 Migraine) aspirin Allergy Intermediate headache Verified 06/06/25 18:06 caffeine (From Excedrin Allergy Intermediate headache Verified 06/06/25 18:06 Migraine) mold (mold spores) Allergy Intermediate respiratory Verified 06/06/25 18:06 distress lisinopril AdvReac Severe Cough Verified 06/06/25 18:06 monosodium glutamate (msg) AdvReac Intermediate PT UNSURE Verified 06/06/25 18:06 OF REACTION wheat AdvReac Intermediate PT UNSURE Verified 06/06/25 18:06 OF REACTION liraglutide (From Victoza) AdvReac Other Verified 06/06/25 18:06 Family History Father CAD (coronary artery disease) Brother Diabetes Sister Diabetes Breast cancer Hyperlipidemia Hypertension Arthritis Lupus Colon cancer Grandmother CVA (cerebral vascular accident) Grandfather Sudden cardiac Son Atrial fibrillation Mother Arthritis Other High cholesterol Surgical History S/P TAVR (transcatheter aortic valve replacement) History of left heart catheterization (03/11/12) History of appendectomy History of hysterectomy History of cholecystectomy Social History adopted: No household members: other details: daughter current occupational status: retired Smoking Status: Never smoker alcohol intake: current alcohol intake frequency: holidays/special occasions only details: wine what type of physical activity do you participate in: none seatbelt use: never do you feel safe at home: No ROS Review of Systems ROS Unobtainable: due to encephalopathy Vital Signs Vital Signs Vital Signs: 06/06/25 18:06 06/06/25 18:08 06/06/25 18:38 Temperature 98.6 F 98.6 F Temperature Source Oral Oral Pulse Rate 105 H 105 H Respiratory Rate 18 18 Blood Pressure 102/56 L 102/56 L Blood Pressure Mean 71 71 Pulse Ox 99 94 Oxygen Delivery Method Room Air Room Air Room Air Oxygen Flow Rate (L/min) 06/06/25 19:03 06/06/25 19:08 Temperature 98.5 F Temperature Source Oral Pulse Rate 100 105 H Respiratory Rate 19 H Blood Pressure 176/87 H Blood Pressure Mean 116 Pulse Ox 92 Oxygen Delivery Method Nasal Cannula Oxygen Flow Rate (L/min) 2 Weight Weight: 224 lb 13.944 oz Body Mass Index (BMI) 37.4 Physical Exam Narrative Physical Examination: General: Laying in the ED bed, recent Ativan, currently not alert or able to answer any orientationquestions, laying in the ED bed, fatigued. Skin: Normal color, normal turgor, no icterus, no cyanosis except occasional stage ecchymoses, abrasions, significant fold intertrigo. HEENT: AT/NC, EOMI, PERRLA, dry MM, no carotid bruits or JVD noted. Lungs: Diminished, greater bases, mildly increased respiratory rate but no distress, no markedly appreciated rales, ronchi or wheezing. Heart: Irregular irregular; no gallop, rub audible. Abdomen: Soft, obese, no obvious grimacing with palpation, distant bowel sounds,difficult to discern distention HSM given habitus. Extremities: No cyanosis, no clubbing, pedal to mid reno edema which family notes is chronic. Neurological: Laying in the ED bed, recent Ativan, currently not alert or able to answer any orientation questions, laying in the ED bed, fatigued, cognitive function diminished baseline with underlying dementia but currently significantly not baseline intact; pupils equally reactive to light and ac commodation, difficult to assess cranial nerves given currently lethargic status post recent Ativan, will spontaneously move extremities, strength difficult to assess given recent sedation, strength severely accordingly diffusely decreased. Psychiatric: Affect appears currently flat, lethargic no acute evidence of depressive or anxiety feelings. Results Lab / Micro Data 06/06/25 18:30 06/06/25 18:30 Labs: Laboratory Results - last 24 hr 06/06/25 18:30: WBC 9.2, RBC 4.29, Hgb 12.8, Hct 38.6, MCV 90.0, MCH 29.8, MCHC 33.2, RDW Std Deviation 47.7 H, RDW Coeff of [place] 14.6, Plt Count 176, MPV 10.6, Immature Gran % (Auto) 0.400, Neut % (Auto) 77.7 H, Lymph % (Auto) 11.1 L, [place] % (Auto) 9.5, Eos % (Auto) 1.0, Baso % (Auto) 0.3, AbsoluteNeuts (auto) 7.2, Absolute Lymphs (auto) 1.03, Nucleated RBC % 0, PT 18.0 H, INR 1.5, APTT 28.5, Sodium 138, Potassium 3.9, Chloride 98, Carbon Dioxide 24.3, Anion Gap 15, BUN 18, Creatinine 0.80, Estim Creat Clear Calc 63.09, Est GFR (MDRD) Non-Af 73, BUN/Creatinine Ratio 22.1 H, Glucose 239 H, Calcium 9.9, Total Bilirubin 1.48 H, AST 26, ALT 16, Alkaline Phosphatase 81, Total Protein 7.2, Albumin 4.4, Globulin 2.8, Albumin/Globulin Ratio 1.5, Urine Color Straw, Urine Clarity Clear, Urine pH 6.0, Ur Specific [place] 1.015, Urine Protein 100 H, Urine Glucose (UA) 50 H, Urine Ketones 15 H, Urine Occult Blood 10 H, Urine Nitrite Negative, Urine Bilirubin Negative, Urine Urobilinogen Normal, Ur Leukocyte Esterase Negative, Urine RBC 0-5 SEEN, Urine WBC 0-5 SEEN, Ur Squamous Epith Cells 0-5 SEEN, Urine Bacteria 0 SEEN, Hyaline Casts 0-5 SEEN, Urine Mucus 0 SEEN 06/06/25 18:35: Lactic Acid 1.8 Rhythm Strip Rhythm Strip: A-fib Rate: 108 Ectopy: None Imaging Radiology Impression Brain CT 06/06/25 18:28 IMPRESSION: No acute intracranial abnormality. Reading Location: [id number] Assessment & Plan Assessment/Plan (1) Acute confusion: PLAN: Plan The patient is an 84 y/o F w/ PMHx: Nonobstructive CAD, CKD stage II per GFR trending, Dementia unclear type with unclear behavioral disturbance history, PAF, HTN, HLD, Hx TIA, Hypothyroidism, Diabetes mellitus type II with chronic neuropathy, Valvular heart disease s/p TAVR, Obesity, Allergic rhinitis who presents to [facility] ED on 06/06/2025 with history of worsening confusion starting theday prior reportedly not feeling well per family over the last 48 hours with mental status progressively worsening since onset with no reported fever per family not on any recent antibiotic therapies or recent illnesses otherwise but given mental status change and decline status prompted ED evaluation. #1. Altered mentation with hypoxia, debility, unclear etiology w/ adult FTT concerning for possibledeveloping pneumonia versus acute viral syndrome: Given presentation also with mild PAF with RVR with known history to be cautious we will maintain on PCU, will obtain ABG, will obtain ammonia level,will obtain full respiratory viral panel, will obtain procalcitonin, will plan to continue judiciously hydrate with repeat chest x-ray in a.m. to assure no developing pneumonia as etiology especiallygiven mild hypoxia, only interim maintain on IVRocephin and IV azithromycin with de-escalation off if repeat films not marked appearing or if obvious evidence of viral illness on panel, will maintainon oxygen with wean as tolerated to room air, PRN albuterol, maintained on IV Zosyn/Levaquin/Rocephin and Azithromycin/Zosyn, encourage HOB, IS parameters, will attempt to induce sputum culture if able, will obtain urine antigens, urineculture pending per ED, blood culture x 2 pending per ED. If there is no obvious evident infectious cause may need to consider follow-up MRI. PT/OT/case managementconsulted for discharge planning. #2. Paroxysmal atrial fibrillation: EKG in ED w/ atrial fibrillation with rate less than 110. Will continue hydration, will maintain on telemetry, obtain magnesium level, obtain TSH level. Most recent ECHO as noted 06/14/24 but given rate likely secondary to #1 will hold on repeat ECHO. Will continue Coumadin with INR trending with additional dose x 1 now given subtherapeutic INR upon presentation, continue metoprolol with hold parameters if necessary. #3. Dementia unclear type with unclear behavioral disturbance history: Complicates presentation, maintain on fall and aspiration precautions, not on a regimen for current list, PT/OT/case management consulted for discharge planning. #4. Chronic Kidney Disease Stage II per GFR trending: Admission BUN/Cr 18/0.8, GFR 73, baseline renal function 0.7-1.1, repeat BMP in AM. #5. Chronic normocytic anemia: Admission hemoglobin 12.8, MCV 90, baseline hemoglobin primarily more recently 11-12, will continue to trend. #6. History of TIA: Will continue Coumadin with INR trending, statin therapy, hypertensive regimen,diabetic regimen as noted with adjustments as needed. #7. Valvular heart disease: Most recent echocardiogram noted 06/14/2024 with normal LV size, bioprosthetic AV, LVEF 50%, LV systolic function lower limits ofnormal, mild to moderate TVI. #8. Nonobstructive CAD: Will continue Coumadin with INR trending with additional dose x 1 given subtherapeutic INR upon current presentation, continuestatin therapy, losartan, metoprolol home regimen. #9. Diabetes mellitus type II with chronic neuropathy: Hold oral home regimen, continue home insulin regimen, ADA diet, accu checks w/ ISS, continue patient home gabapentin regimen. #10. Hypothyroidism: Will continue patient home levothyroxine regimen. #11. Hypertension: Continue home regimen including metoprolol, losartan, Lasix,PRN hydralazine. #12. Hyperlipidemia: Will continue patient home statin therapy. #13. Allergic rhinitis: Will continue patient home cetirizine regimen. #14. DVT prophylaxis: Will continue Coumadin with INR trending with an additional dose x 1 given subtherapeutic INR of 1.5 on admission. #15. CODE status: Patient HCPOA is per son who is present and living will is currently in place. Discussed CODE status at length including difference betweenFULL code, DNR-CCA and DNR-CC status. Following discussions about the differences in these status, requested DNR-CCA, no intubation status. Did clarify and confirmed no intubation status. Advanced Care Planning Face to Face Time: 16 minutes. Charges/Coding Visit Charges Inpatient E&M: 39186 Init Hosp L3 Procedures Hospitalists Procedures: 83216 Advncd Care Plan 30 Min 06/06/252232 Cosigner Signature (if applicable): CC: Dr. Jana Reardon MD; Dr. Terrell Schafer MD~ Signed [facility]07-22-2025 Discharge summary Author Hugh Nunes [facility] Note Date/Time June 06, 2025 8:24 pm [facility] Medical Records Department [address] [place] [address] Emergency Department Summary 06/06/25 MR#: [id number] Acct: [id number] Name: VASILE MILLER Rep #:[id number] : 1940 84 From: Hugh Nunes MD PCP: Dr. Terrell Schafer MD Status:R EG ER Location: ED HPI History of Present Illness Chief Complaint: Alt LOC Detail of Chief Complaint: Worsening confusion with altered level of conscious. Informant: patient (Patient limited informant due to her current confusion whichis not her baseline according to family.) and family Onset/Context/Timing Onset: Today and Yesterday Context: Gradual Onset Timing: Continuous Current Severity: Moderate Maximum Severity: Moderate Narrative Narrative: 84-year-old female history of very mild dementia, diabetes, A-fib on Coumadin. Per the family last couple days she has not done that well and today progressively had a change in mental status. No recent falls or head trauma no fever. No vomiting or diarrhea. Patient is a limited informant at this time due to her confusion. No known fever. Currently on no antibiotics. No recent hospitalization. 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 Persistent atrial fibrillation Nonobstructive atherosclerosis of coronary artery Secondary pulmonary arterial hypertension Aortic stenosis with bicuspid valve Essential (primary) hypertension Environmental allergies Hyperlipidemia Paroxysmal atrial fibrillation Rapid atrial fibrillation (12/2019) Diabetes Morbid obesity with BMI of 40.0-44.9, adult Home Medications ?Medication ?Instructions ?Recorded ?Last Taken ?Type pen needle, diabetic 32 gauge x #400 ea 10/09/20 Unkno wn Rx " (BD Ultra-Fine Kimber Pen Needle) hydrochlorothiazide 25 mg tablet 25 mg PO DAILY BLOOD PRESSURE #90 05/07/21 08/21/24 Rx tabs cetirizine 5 mg tablet 5 mg PO DAILY ALLERGIES 05/16 06/08 Unknown History 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,chain maker,cont 07/28/24 Unknown History (Dexcom G[employer]) glucagon HCl 1 mg solution for 1 mg subcut Q20M PRN HY POGLYCEMIA 07/28/24 Unknown History injection (Glucagon (HCl) Emergency Kit) nystatin 100,000 unit/gram topical 1 applic topical BI D PRN FUNGAL 07/28/24 Unknown History powder INFECTION trolamine salicylate 10 % topical 1 applic topical JUAN LY PRN 07/28/24 Unknown History cream (Myoflex) ARTHRITIS alendronate 70 mg tablet 70 mg PO QWEEK OSTEOPEROSIS 08/22/24 Unknown History clotrimazole-betamethasone 1 1 applic topical BID PRN FUNGAL 08/22/24 Unknown History %-0.05 % topical cream INFECTION ketoconazole 2 % shampoo 1 applic topical UD PRN SHEA AL 08/22/24 Unknown History INFECTION ketoconazole 2 % topical cream 1 applic topical DAILY PRN FUNGAL 08/22/24 Unknown History INFECTION magnesium chloride 71.5 mg 143 mg PO DAILY SUPPLEMENT 08/22/24 08/21/24 History (magnesium chloride) tablet,delayed release ergocalciferol (vitamin D2) 1,250 50,000 unit PO QWEEK #20 caps 11/07/24 Unknown Rx mcg (50,000 unit) capsule metoprolol tartrate 100 mg tablet 100 mg PO BID BLOOD PRESSURE #180 11/21/24 Unknown Rx tabs warfarin 4 mg tablet 4 mg PO .COMPLEX #180 tabs 0 11/22/24 Unknown Rx acetaminophen 500 mg tablet 1,000 mg PO BID PRN Unknown History ascorbic acid (vitamin C) 1,000 mg 1 g PO QDAY 5 Unknown History capsule atorvastatin 40 mg tablet 40 mg PO DAILY CHOLESTEROL #90 02/13/25 Unknown Rx tabs furosemide 20 mg tablet 20 mg PO DAILY EDEMA #90 ta bs 02/13/25 Unknown Rx losartan 100 mg tablet 100 mg PO DAILY BLOOD PRESSU RE 02/13/25 Unknown Rx #90 tabs warfarin 5 mg tablet 5 mg PO QDAY 02/13/25 Unknow n History blood sugar diagnostic (FreeStyle #100 ea 02/23/25 Unk nown Rx Lite Strips) 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 meter (FreeStyle #1 ea 02/23/25 Unknown Rx Lite Meter kit) lancets 28 gauge (FreeStyle #200 ea 02/23/25 Unknown R x Lancets) gabapentin 100 mg capsule 100 mg PO TID 03/13/25 Unkno wn History insulin aspart 20 unit subcut TID #18 mL Unknown Rx (niacinamide)(U-100) 100 unit/mL(3 mL) subcutaneous pen (Fiasp FlexTouch U-100 Insulin) insulin degludec 100 unit/mL (3 16 unit subcut BID Unknown History mL) subcutaneous pen (Tresiba FlexTouch U-100 insulin) oxycodone 5 mg capsule 5 mg PO BID PRN 03/13/25 Unk nown History tizanidine 2 mg capsule 2 mg PO Q8H PRN 03/13/25 Unk nown History warfarin 1 mg tablet 1 mg PO 3XW 03/13/25 Unknown History levothyroxine 25 mcg tablet 25 mcg PO QDAY #90 tabs Unknown Rx Allergy/AdvReac Type Severity Reaction Status Date / Time acetaminophen (From Excedrin Allergy Intermediate headache Verified 06/06/25 18:06 Migraine) aspirin Allergy Intermediate headache Verified 06/06/25 18:06 caffeine (From Excedrin Allergy Intermediate headache Verified 06/06/25 18:06 Migraine) mold (mold spores) Allergy Intermediate respiratory Verified 06/06/25 18:06 distress lisinopril AdvReac Severe Cough Verified 06/06/25 18:06 monosodium glutamate (msg) AdvReac Intermediate PT UNSURE Verified 06/06/25 18:06 OF REACTION wheat AdvReac Intermediate PT UNSURE Verified 06/06/25 18:06 OF REACTION liraglutide (From Victoza) AdvReac Other Verified 06/06/25 18:06 Family History Father CAD (coronary artery disease) Brother Diabetes Sister Diabetes Breast cancer Hyperlipidemia Hypertension Arthritis Lupus Colon cancer Grandmother CVA (cerebral vascular accident) Grandfather Sudden cardiac Son Atrial fibrillation Mother Arthritis Other High cholesterol Surgical History S/P TAVR (transcatheter aortic valve replacement) History of left heart catheterization (03/11/12) History of appendectomy History of hysterectomy History of cholecystectomy Social History adopted: No household members: other details: daughter current occupational status: retired Smoking Status: Never smoker alcohol intake: current alcohol intake frequency: holidays/special occasions only details: wine what type of physical activity do you participate in: none seatbelt use: never do you feel safe at home: No ROS ROS ED ROS Narrative Unknown due to the patient's confusion. Review of Systems ROS Unobtainable: due to encephalopathy EXAM Physical Exam Narrative Exam Narrative: 84-year-old female lying in bed. Vital signs stable her blood pressure however is low at 102/56. Pulse ox 98% on room air no hypoxia. Afebrile. H EENT exam pupils round reactive light. Mildly dry mucous membranes. No trauma to her face or scalp. Neck nontender. Back nontender. Lungs clear to auscultation bilaterally. Heart tachycardic 105 no murmur. Chest wall ribs nontender. Abdomen soft nontender. Moving all 4 extremities. No deformity nontender no rashes. Neurologically she does not know the date, month or year. She seems confused. She does try to answer questions but inaccurately. She is moving all4 extremities. I spoke to her son and I believe his at bedside. Const Vital Signs: 06/06/25 18:06 06/06/25 18:08 06/06/25 18:38 Temperature 98.6 F 98.6 F Temperature Source Oral Oral Pulse Rate 105 H 105 H Respiratory Rate 18 18 Blood Pressure 102/56 L 102/56 L Blood Pressure Mean 71 71 Pulse Ox 99 94 Oxygen Delivery Method Room Air Room Air Room Air Oxygen Flow Rate (L/min) 06/06/25 19:03 06/06/25 19:08 06/06/25 20:00 Temperature 98.5 F 99.6 F H Temperature Source Oral Core Pulse Rate 100 105 H 108 H Respiratory Rate 19 H 20 H Blood Pressure 176/87 H 151/98 H Blood Pressure Mean 116 115 Pulse Ox 92 93 Oxygen Delivery Method Nasal Cannula Nasal Cannula Oxygen Flow Rate (L/min) 2 3 Positive well nourished and well developed; Negative for cachectic, contracturesor unkempt General Appearance ED: well developed; Negative for unkempt, cachectic, contractures, cyanotic, diaphoretic, NAD or pallor Nutritional Appearance: Negative for cachectic HEENT Reports dry mucous membranes Negative for trauma or tenderness Mouth ED: Yes dry mucous membranes Mouth: dry mucous membranes Eyes PERRL and EOMs intact bilaterally Neck no lymphadenopathy, supple and no JVD Chest Wall inspection of chest normal and palpation of chest normal Resp normal respiratory effort and clear to auscultation bilaterally Cardio regular rhythm, S1 normal heart sound, S2 normal heart sound and no murmurs Rate: tachycardic GI normal to inspection, nondistended, normoactive bowel sounds, non-tender, non-distended and no masses Palpation: soft; Negative for tender, guarding or rebound tenderness present Back/Spine no CVA tenderness Extremity normal to inspection General Extremety ED: Negative for edema or tenderness General Extremity: Negative for edema Neuro No oriented x3 and CN's II-XII intact bilaterally Neuro Narrative: Confused. Does not know day, month or year. 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 Possibly secondary to infectious etiology encephalopathy. She is onCoumadin consider head bleed or stroke. Versus other etiologies. Sepsis protocol with IV fluids and CT of her brain to be obtained. She will be admitted. Repeat exam unchanged. Patient is going to be given IV Ativan to help calm her down. Because the nurses are concerned she is here climb out of bed or rip out her IV. I discussed that with the family. Still waiting on the micro UA but itlooks very clean in the Ayala catheter. I do not have the official read back yet on the CT but there is no bleed. Patient will be admitted for altered mental status. The hospitalist is on page. History & Record Review Discussion w/independent historian: Patient and Family Additional record(s) reviewed:: Prior inpatient record, Prior outpatient record,Prior ED visit and Prior labs Lab Data Attestation: I reviewed the patient's lab results. Lab results narrative: CBC shows a white count 9.2. H&H 12.8 and 38. Platelets 176. PT/INR of 18 and 1.5. PTT 28. Electrolytes show sodium 138. Gap 15. BUN and creatinine of 18 and 0.8. Glucose 239. Lactic acid normal at 1.8. Liver enzymes unremarkable. Urinalysis no nitrites. No white or red cells. No bacteria. Chest x-ray chronic changes. CT brain chronic changes. Labs: Laboratory Results - last 24 hr 06/06/25 06/06/25 18:30 18:35 WBC 9.2 RBC 4.29 Hgb 12.8 Hct 38.6 MCV 90.0 MCH 29.8 MCHC 33.2 RDW Std Deviation 47.7 H RDW Coeff of [place] 14.6 Plt Count 176 MPV 10.6 Immature Gran % (Auto) 0.400 Neut % (Auto) 77.7 H Lymph % (Auto) 11.1 L [place] % (Auto) 9.5 Eos % (Auto) 1.0 Baso % (Auto) 0.3 Absolute Neuts (auto) 7.2 Absolute Lymphs (auto) 1.03 Nucleated RBC % 0 PT 18.0 H INR 1.5 APTT 28.5 Sodium 138 Potassium 3.9 Chloride 98 Carbon Dioxide 24.3 Anion Gap 15 BUN 18 Creatinine 0.80 Estim Creat Clear Calc 63.09 Est GFR (MDRD) Non-Af 73 BUN/Creatinine Ratio 22.1 H Glucose 239 H Lactic Acid 1.8 Calcium 9.9 Total Bilirubin 1.48 H AST 26 ALT 16 Alkaline Phosphatase 81 Total Protein 7.2 Albumin 4.4 Globulin 2.8 Albumin/Globulin Ratio 1.5 Urine Color Straw Urine Clarity Clear Urine pH 6.0 Ur Specific [place] 1.015 Urine Protein 100 H Urine Glucose (UA) 50 H Urine Ketones 15 H Urine Occult Blood 10 H Urine Nitrite Negative Urine Bilirubin Negative Urine Urobilinogen Normal Ur Leukocyte Esterase Negative Urine RBC 0-5 SEEN Urine WBC 0-5 SEEN Ur Squamous Epith Cells 0-5 SEEN Urine Bacteria 0 SEEN Hyaline Casts 0-5 SEEN Urine Mucus 0 SEEN Radiography Chest X-Ray - ED: 1 View, Read by ED Physician, Heart, Lungs, Mediastinum, Bony Structures, No Acute Disease and Chronic Changes Diagnostic Testing: Clinical Impression(s) from Imaging Studies Brain CT 06/06/25 18:28 IMPRESSION: No acute intracranial abnormality. Reading Location: [facility] Chest x-ray, portable, single view interpreted by myself shows normal cardiac silhouette. Chronic changes. No pneumonia. Rhythm Strip Rhythm Strip: A-fib Rate: 108 Ectopy: None EKG Initial EKG: Attestation: I personally reviewed and interpreted this EKG as follows: Interpretation: No Acute Injury Pattern, Atrial Fibrillation and LBBB Comments: A-fib rate of 108. Left bundle branch block. Critical Care Time Critical Care Time: Yes Critical care time (excluding procedures): 30-74 minutes, Including time spent:,Discussing w/Patient &/or Family/Potato Loader, Discussing w/Consultants, ArrangingAdmission or Transfer, Performing Direct Patient Care at Bedside and - (35 minutes) Discharge Plan Dx/Rx/DC Orders Clinical Impression: Altered level of consciousness, Chronic anticoagulation, Acute confusion, Chronic a-fib, History of dementia, History of diabetes mellitus Disposition Disposition: Acute Care Hospital [facility] What to do if you have Problems For any increased pain, shortness of breath, bleeding, nausea or vomiting, chestpain, or any unexpected problems, contact your Primary Care Provider. Call [facility] ([phone]) or report to the closest Emergency Room. Call 911 if necessary. 06/06/252023 <Electronically signed by Hugh Nunes MD> Cosigner Signature (if applicable): CC: Dr. Terrell Schafer MD ~ Signed [facility] Work Phone: 1(203) 904-166507-22-2025 Radiology Diagnostic study note [facility] Imaging Services [address] [place] [address] [id number] Chest 1 View (Portable) MR#: [id number] Acct: [id number] Name: VASILE MILLER Rep #: [id number] : 1940 F 84 From: Shoshana Garcia MD PCP: Dr. Terrell Schafer MD Status: R EG ER Study:Chest 1 View (Portable) Date of Exam: 06/06/25 Exam# [id number] Ordering Dr: Xander Nunes MD PROCEDURE: CHEST 1 VIEW (PORTABLE) 06/06/2025 REASON FOR EXAM: ALOC TECHNIQUE: Frontal view of the chest. COMPARISON: None FINDINGS: Mild pulmonary vascular congestion and interstitial edema. No focal consolidation. No pleural effusion or pneumothorax. Mild cardiomegaly. TAVR. Calcified aortic arch. RAD/Chest 1 View (Portable) IMPRESSION: No focal consolidations. Mild pulmonary vascular congestion and interstitial edema. Mild cardiomegaly. Reading Location: [id number] CC: Dr. Terrell Schafer MD; Dr. Hugh Nunes MD ~ Bulk Filler: Signed [facility]07-22-2025 Discharge summary [facility] Medical Records Department [address] [place] [address] Emergency Department Summary 06/06/25 MR#: [id number] Acct: [id number] Name: VASILE MILLER Rep #:[id number] : 1940 84 From: Hugh Nunes MD PCP: Dr. Terrell Schafer MD Status:R EG ER Location: ED HPI History of Present Illness Chief Complaint: Alt LOC Detail of Chief Complaint: Worsening confusion with altered level of conscious. Informant: patient (Patient limited informant due to her current confusion whichis not her baselineaccording to family.) and family Onset/Context/Timing Onset: Today and Yesterday Context: Gradual Onset Timing: Continuous Current Severity: Moderate Maximum Severity: Moderate Narrative Narrative: 84-year-old female history of very mild dementia, diabetes, A-fib on Coumadin. Per the family last couple days she has not done that well and today progressively had a change in mental status. No recent falls or head trauma no fever. No vomiting or diarrhea. Patient is a limited informant at this time due to her confusion. No known fever. Currently on no antibiotics. No recent hospitalization. 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 Persistent atrial fibrillation Nonobstructive atherosclerosis of coronary artery Secondary pulmonary arterial hypertension Aortic stenosis with bicuspid valve Essential (primary) hypertension Environmental allergies Hyperlipidemia Paroxysmal atrial fibrillation Rapid atrial fibrillation (12/2019) Diabetes Morbid obesity with BMI of 40.0-44.9, adult Home Medications ?Medication ?Instructions ?Recorded ?Last Taken ?Type pen needle, diabetic 32 gauge x #400 ea 10/09/20 Unkno wn Rx " (BD Ultra-Fine Kimber Pen Needle) hydrochlorothiazide 25 mg tablet 25 mg PO DAILY BLOOD PRESSURE #90 05/07/21 08/21/24 Rx tabs cetirizine 5 mg tablet 5 mg PO DAILY ALLERGIES 05/16 06/08 Unknown History 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,chain maker,cont 07/28/24 Unknown History (Dexcom G[employer]) glucagon HCl 1 mg solution for 1 mg subcut Q20M PRN HY POGLYCEMIA 07/28/24 Unknown History injection (Glucagon (HCl) Emergency Kit) nystatin 100,000 unit/gram topical 1 applic topical BI D PRN FUNGAL 07/28/24 Unknown History powder INFECTION trolamine salicylate 10 % topical 1 applic topical JUAN LY PRN 07/28/24 Unknown History cream (Myoflex) ARTHRITIS alendronate 70 mg tablet 70 mg PO QWEEK OSTEOPEROSIS 08/22/24 Unknown History clotrimazole-betamethasone 1 1 applic topical BID PRN FUNGAL 08/22/24 Unknown History %-0.05 % topical cream INFECTION ketoconazole 2 % shampoo 1 applic topical UD PRN SHEA AL 08/22/24 Unknown History INFECTION ketoconazole 2 % topical cream 1 applic topical DAILY PRN FUNGAL 08/22/24 Unknown History INFECTION magnesium chloride 71.5 mg 143 mg PO DAILY SUPPLEMENT 08/22/24 08/21/24 History (magnesium chloride) tablet,delayed release ergocalciferol (vitamin D2) 1,250 50,000 unit PO QWEEK #20 caps 11/07/24 Unknown Rx mcg (50,000 unit) capsule metoprolol tartrate 100 mg tablet 100 mg PO BID BLOOD PRESSURE #180 11/21/24 Unknown Rx tabs warfarin 4 mg tablet 4 mg PO .COMPLEX #180 tabs 0 11/22/24 Unknown Rx acetaminophen 500 mg tablet 1,000 mg PO BID PRN 03/31/ 25 Unknown History ascorbic acid (vitamin C) 1,000 mg 1 g PO QDAY 5 Unknown History capsule atorvastatin 40 mg tablet 40 mg PO DAILY CHOLESTEROL #90 02/13/25 Unknown Rx tabs furosemide 20 mg tablet 20 mg PO DAILY EDEMA #90 ta bs 02/13/25 Unknown Rx losartan 100 mg tablet 100 mg PO DAILY BLOOD PRESSU RE 02/13/25 Unknown Rx #90 tabs warfarin 5 mg tablet 5 mg PO QDAY 02/13/25 Unknow n History blood sugar diagnostic (FreeStyle #100 ea 02/23/25 Unk nown Rx Lite Strips) 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 meter (FreeStyle #1 ea 02/23/25 Unknown Rx Lite Meter kit) lancets 28 gauge (FreeStyle #200 ea 02/23/25 Unknown R x Lancets) gabapentin 100 mg capsule 100 mg PO TID 03/13/25 Unkno wn History insulin aspart 20 unit subcut TID #18 mL Unknown Rx (niacinamide)(U-100) 100 unit/mL(3 mL) subcutaneous pen (Fiasp FlexTouch U-100 Insulin) insulin degludec 100 unit/mL (3 16 unit subcut BID Unknown History mL) subcutaneous pen (Tresiba FlexTouch U-100 insulin) oxycodone 5 mg capsule 5 mg PO BID PRN 03/13/25 Unk nown History tizanidine 2 mg capsule 2 mg PO Q8H PRN 03/13/25 Unk nown History warfarin 1 mg tablet 1 mg PO 3XW 03/13/25 Unknown History levothyroxine 25 mcg tablet 25 mcg PO QDAY #90 tabs Unknown Rx Allergy/AdvReac Type Severity Reaction Status Date / Time acetaminophen (From Excedrin Allergy Intermediate headache Verified 06/06/25 18:06 Migraine) aspirin Allergy Intermediate headache Verified 06/06/25 18:06 caffeine (From Excedrin Allergy Intermediate headache Verified 06/06/25 18:06 Migraine) mold (mold spores) Allergy Intermediate respiratory Verified 06/06/25 18:06 distress lisinopril AdvReac Severe Cough Verified 06/06/25 18:06 monosodium glutamate (msg) AdvReac Intermediate PT UNSURE Verified 06/06/25 18:06 OF REACTION wheat AdvReac Intermediate PT UNSURE Verified 06/06/25 18:06 OF REACTION liraglutide (From Victoza) AdvReac Other Verified 06/06/25 18:06 Family History Father CAD (coronary artery disease) Brother Diabetes Sister Diabetes Breast cancer Hyperlipidemia Hypertension Arthritis Lupus Colon cancer Grandmother CVA (cerebral vascular accident) Grandfather Sudden cardiac Son Atrial fibrillation Mother Arthritis Other High cholesterol Surgical History S/P TAVR (transcatheter aortic valve replacement) History of left heart catheterization (03/11/12) History of appendectomy History of hysterectomy History of cholecystectomy Social History adopted: No household members: other details: daughter current occupational status: retired Smoking Status: Never smoker alcohol intake: current alcohol intake frequency: holidays/special occasions only details: wine what type of physical activity do you participate in: none seatbelt use: never do you feel safe at home: No ROS ROS ED ROS Narrative Unknown due to the patient's confusion. Review of Systems ROS Unobtainable: due to encephalopathy EXAM Physical Exam Narrative Exam Narrative: 84-year-old female lying in bed. Vital signs stable her blood pressure however is low at 102/56. Pulse ox 98% on room air no hypoxia. Afebrile. H EENT exam pupils round reactive light. Mildly dry mucous membranes. No trauma to her face or scalp. Neck nontender. Back nontender. Lungs clear to auscultation bilaterally. Heart tachycardic 105 no murmur. Chest wall ribs nontender. Abdomen soft nontender. Moving all 4 extremities. No deformity nontender no rashes. Neurologically she does not know thedate, month or year. She seems confused. She does try to answer questions but inaccurately. She is moving all4 extremities. I spoke to her son and I believe his at bedside. Const Vital Signs: 06/06/25 18:06 06/06/25 18:08 06/06/25 18:38 Temperature 98.6 F 98.6 F Temperature Source Oral Oral Pulse Rate 105 H 105 H Respiratory Rate 18 18 Blood Pressure 102/56 L 102/56 L Blood Pressure Mean 71 71 Pulse Ox 99 94 Oxygen Delivery Method Room Air Room Air Room Air Oxygen Flow Rate (L/min) 06/06/25 19:03 06/06/25 19:08 06/06/25 20:00 Temperature 98.5 F 99.6 F H Temperature Source Oral Core Pulse Rate 100 105 H 108 H Respiratory Rate 19 H 20 H Blood Pressure 176/87 H 151/98 H Blood Pressure Mean 116 115 Pulse Ox 92 93 Oxygen Delivery Method Nasal Cannula Nasal Cannula Oxygen Flow Rate (L/min) 2 3 Positive well nourished and well developed; Negative for cachectic, contracturesor unkempt General Appearance ED: well developed; Negative for unkempt, cachectic, contractures, cyanotic, diaphoretic, NAD or pallor Nutritional Appearance: Negative for cachectic HEENT Reports dry mucous membranes Negative for trauma or tenderness Mouth ED: Yes dry mucous membranes Mouth: dry mucous membranes Eyes PERRL and EOMs intact bilaterally Neck no lymphadenopathy, supple and no JVD Chest Wall inspection of chest normal and palpation of chest normal Resp normal respiratory effort and clear to auscultation bilaterally Cardio regular rhythm, S1 normal heart sound, S2 normal heart sound and no murmurs Rate: tachycardic GI normal to inspection, nondistended, normoactive bowel sounds, non-tender, non- distended and no masses Palpation: soft; Negative for tender, guarding or rebound tenderness present Back/Spine no CVA tenderness Extremity normal to inspection General Extremety ED: Negative for edema or tenderness General Extremity: Negative for edema Neuro No oriented x3 and CN's II-XII intact bilaterally Neuro Narrative: Confused. Does not know day, month or year. 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 Possibly secondary to infectious etiology encephalopathy. She is onCoumadin consider head bleed or stroke. Versus other etiologies. Sepsis protocol with IV fluids and CT of her brain to be obtained. She will be admi tted. Repeat exam unchanged. Patient is going to be given IV Ativan to help calm her down. Because the nurses are concerned she is here climb out of bed or rip out her IV. I discussed that with the family.Still waiting on the micro UA but itlooks very clean in the Ayala catheter. I do not have the official read back yet on the CT but there is no bleed. Patient will be admitted for altered mental status. The hospitalist is on page. History & Record Review Discussion w/independent historian: Patient and Family Additional record(s) reviewed:: Prior inpatient record, Prior outpatient record,Prior ED visit and Prior labs Lab Data Attestation: I reviewed the patient's lab results. Lab results narrative: CBC shows a white count 9.2. H&H 12.8 and 38. Platelets 176. PT/INR of 18 and 1.5. PTT 28. Electrolytes show sodium 138. Gap 15. BUN and creatinine of 18 and 0.8. Glucose 239. Lactic acid normal at 1.8. Liver enzymes unremarkable. Urinalysis no nitrites. No white or red cells. No bacteria. Chest x-ray chronic changes. CT brain chronic changes. Labs: Laboratory Results - last 24 hr 06/06/25 06/06/25 18:30 18:35 WBC 9.2 RBC 4.29 Hgb 12.8 Hct 38.6 MCV 90.0 MCH 29.8 MCHC 33.2 RDW Std Deviation 47.7 H RDW Coeff of [place] 14.6 Plt Count 176 MPV 10.6 Immature Gran % (Auto) 0.400 Neut % (Auto) 77.7 H Lymph % (Auto) 11.1 L [place] % (Auto) 9.5 Eos % (Auto) 1.0 Baso % (Auto) 0.3 Absolute Neuts (auto) 7.2 Absolute Lymphs (auto) 1.03 Nucleated RBC % 0 PT 18.0 H INR 1.5 APTT 28.5 Sodium 138 Potassium 3.9 Chloride 98 Carbon Dioxide 24.3 Anion Gap 15 BUN 18 Creatinine 0.80 Estim Creat Clear Calc 63.09 Est GFR (MDRD) Non-Af 73 BUN/Creatinine Ratio 22.1 H Glucose 239 H Lactic Acid 1.8 Calcium 9.9 Total Bilirubin 1.48 H AST 26 ALT 16 Alkaline Phosphatase 81 Total Protein 7.2 Albumin 4.4 Globulin 2.8 Albumin/Globulin Ratio 1.5 Urine Color Straw Urine Clarity Clear Urine pH 6.0 Ur Specific [place] 1.015 Urine Protein 100 H Urine Glucose (UA) 50 H Urine Ketones 15 H Urine Occult Blood 10 H Urine Nitrite Negative Urine Bilirubin Negative Urine Urobilinogen Normal Ur Leukocyte Esterase Negative Urine RBC 0-5 SEEN Urine WBC 0-5 SEEN Ur Squamous Epith Cells 0-5 SEEN Urine Bacteria 0 SEEN Hyaline Casts 0-5 SEEN Urine Mucus 0 SEEN Radiography Chest X-Ray - ED: 1 View, Read by ED Physician, Heart, Lungs, Mediastinum, Bony Structures, No Acute Disease and Chronic Changes Diagnostic Testing: Clinical Impression(s) from Imaging Studies Brain CT 06/06/25 18:28 IMPRESSION: No acute intracranial abnormality. Reading Location: [facility] Chest x-ray, portable, single view interpreted by myself shows normal cardiac silhouette. Chronic changes. No pneumonia. Rhythm Strip Rhythm Strip: A-fib Rate: 108 Ectopy: None EKG Initial EKG: Attestation: I personally reviewed and interpreted this EKG as follows: Interpretation: No Acute Injury Pattern, Atrial Fibrillation and LBBB Comments: A-fib rate of 108. Left bundle branch block. Critical Care Time Critical Care Time: Yes Critical care time (excluding procedures): 30-74 minutes, Including time spent:,Discussing w/Patient &/or Family/Potato Loader, Discussing w/Consultants, ArrangingAdmission or Transfer, Performing Direct Patient Care at Bedside and - (35 minutes) Discharge Plan Dx/Rx/DC Orders Clinical Impression: Altered level of consciousness, Chronic anticoagulation, Acute confusion, Chronic a-fib, History ofdementia, History of diabetes mellitus Disposition Disposition: Acute Care Hospital [facility] What to do if you have Problems For any increased pain, shortness of breath, bleeding, nausea or vomiting, chestpain, or any unexpected problems, contact your Primary Care Provider. Call [facility] ([phone]) or report tothe closest Emergency Room. Call 911 if necessary. 06/06/252023 Cosigner Signature (if applicable): CC: Dr. Terrell Schafer MD ~ Signed [facility]07-22-2025 Radiology Diagnostic study note [facility] Imaging Services [address] [place], [place] [id number] Brain/Head without Contrast MR#: [id number] Acct: [id number] Name: VASILE MILLER Rep #: [id number] : 1940 F 84 From: Pérez Chamberlain MD PCP: Dr. Terrell Schafer MD Status: R EG ER Study:Brain/Head without Contrast Date of Exa m: 06/06/25 Exam# [id number] Ordering Dr: Xander Nunes MD PROCEDURE: BRAIN/HEAD WITHOUT CONTRAST 06/06/2025 REASON FOR EXAM: ALOC TECHNIQUE: BRAIN/HEAD WITHOUT CONTRAST Coronal and Sagittal reconstruction series were provided. One or more dose reduction techniques were used (e.g., Automated exposure control, adjustment of the mA and/or kV according to patient size, use of iterative reconstruction technique. RADIATION DOSE SUMMARY: CTDlvol: 44.99 mGy DLP: 779.24 mGycm COMPARISON: None. FINDINGS: No acute intracranial hemorrhage, extra-axial collection, mass effect or evidence of acute infarct. Mild age-appropriate generalized brain parenchymal volume loss, and chronic microangiopathic changes. Atherosclerotic calcification of the intracranial vasculature. Absent chitina ocular lenses. Intact skull base and calvarium. Clear paranasal sinuses and mastoid air cells. CT/Brain/Head without Contrast IMPRESSION: No acute intracranial abnormality. Reading Location: [id number] CC: Dr. Terrell Schafer MD; Dr. Hugh Nunes MD ~ Bulk Filler: Signed [facility]04-28-2025 Evaluation note* Diagnosis Onset Date Resolution Status Admit Date Chronic kidney disease chronic Ap 2024 9:59am Essential (primary) hypertension chr onic March 13, 2025 9:59am Hyperlipidemia chronic February 9:59am Hypothyroidism chronic February 9:59am Microalbuminuria chronic March 132024 9:59am Obesity chronic March 13 9:59am Type 2 diabetes mellitus chronic March 13, 2025 9:59am 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 extremity edema 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 lewis May 29, 2025 1:49pm Chronic back pain chronic May 292024 1:49pm Essential (primary) hypertension chr onic May 29, 2025 1:49pm Fatigue chronic May 29 1:49pm Hypothyroidism chronic May 29, 2025 1:49pm Type 2 diabetes mellitus chronic May 29, 2025 1:49pm Acute confusion acute May 8:15pm Altered level of consciousness acute June 06, 2025 8:15pm Chronic anticoagulation acute J sebastian 2024 8:15pm History of dementia acute June 06, 2025 8:15pm History of diabetes mellitus acute June 06, 2025 8:15pm Chronic a-fib chronic June 06, 2025 8:15pm [facility] Work Phone: 1(536) 690-904803-31-2025 Evaluation note* Diagnosis Onset Date Resolution Status Admit Date Essential (primary) hypertension chr onic February 13, 2025 10:45am Hyperlipidemia chronic January 10:45am Persistent atrial fibrillation chron ic February 13, 2025 10:45am S/P TAVR (transcatheter aort ic valve replacement) chronic February 13, 2 025 10:45am Type 2 diabetes mellitus chronic February 13, 2025 10:45am Chronic kidney disease chronic Ap 2024 9:59am Essential (primary) hypertension chr onic March 13, 2025 9:59am Hyperlipidemia chronic February 9:59am Hypothyroidism chronic February 9:59am Microalbuminuria chronic March 132024 9:59am Obesity chronic March 13 9:59am Type 2 diabetes mellitus chronic March 13, 2025 9:59am 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 extremity edema 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 lewis May 29, 2025 1:49pm Chronic back pain chronic May 292024 1:49pm Essential (primary) hypertension chr onic May 29, 2025 1:49pm Fatigue chronic May 29 1:49pm Hypothyroidism chronic May 29, 2025 1:49pm Type 2 diabetes mellitus chronic May 29, 2025 1:49pm Acute confusion acute May 8:15pm Altered level of consciousness acute June 06, 2025 8:15pm Chronic anticoagulation acute J sebastian 2024 8:15pm History of dementia acute June 06, 2025 8:15pm History of diabetes mellitus acute June 06, 2025 8:15pm Chronic a-fib chronic June 06, 2025 8:15pm [facility] Work Phone: [phone]) 895-928603-26-2025 Evaluation note* Diagnosis Onset Date Resolution Status Admit Date Essential (primary) hypertension chr onic February 08, 2025 4:04pm Hypothyroidism chronic January 4:04pm Osteoporosis chronic February 08, 2025 4:04pm Persistent atrial fibrillation chron ic February 08, 2025 4:04pm 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 February 08 4:04pm Type 2 diabetes mellitus chronic February 08, 2025 4:04pm Essential (primary) hypertension [facility] on February 13, 2025 10:45am Hyperlipidemia chronic January 10:45am Persistent atrial fibrillation chron ic February 13, 2025 10:45am S/P TAVR (transcatheter aort ic valve replacement) chronic February 13, 025 10:45am Type 2 diabetes mellitus chronic February 13, 2025 10:45am Chronic kidney disease chronic Ap 2024 9:59am Essential (primary) hypertension [facility] on March 13, 2025 9:59am Hyperlipidemia chronic February 9:59am Hypothyroidism chronic February 9:59am Microalbuminuria chronic March 132024 9:59am Obesity chronic March 13 9:59am Type 2 diabetes mellitus chronic March 13, 2025 9:59am [facility] Work Phone: 1([phone]) 476-676703-26-2025 Evaluation note* Diagnosis Onset Date Resolution Status Admit Date Essential (primary) hypertension chr onFebruary 08, 2025 4:04pm Hypothyroidism chronic January 4:04pm Osteoporosis chronic February 08, 2025 4:04pm Persistent atrial fibrillation chron ic February 08, 2025 4:04pm 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 February 08 4:04pm Type 2 diabetes mellitus chronic February 08, 2025 4:04pm Essential (primary) hypertension chr onic February 13, 2025 10:45am Hyperlipidemia chronic January 10:45am Persistent atrial fibrillation chron ic February 13, 2025 10:45am S/P TAVR (transcatheter aort ic valve replacement) chronic February 13, 2 025 10:45am Type 2 diabetes mellitus chronic February 13, 2025 10:45am Chronic kidney disease chronic Ap 2024 9:59am Essential (primary) hypertension chr onic March 13, 2025 9:59am Hyperlipidemia chronic February 9:59am Hypothyroidism chronic February 9:59am Microalbuminuria chronic March 132024 9:59am Obesity chronic March 13 9:59am Type 2 diabetes mellitus chronic March 13, 2025 9:59am 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 extremity edema 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 lewis May 29, 2025 1:49pm Chronic back pain chronic May 292024 1:49pm Essential (primary) hypertension chr onic May 29, 2025 1:49pm Fatigue chronic May 29 1:49pm Hypothyroidism chronic May 29, 2025 1:49pm Type 2 diabetes mellitus chronic May 29, 2025 1:49pm Acute confusion acute May 8:15pm Altered level of consciousness acute June 06, 2025 8:15pm Chronic anticoagulation acute J sebastian 2024 8:15pm History of dementia acute June 06, 2025 8:15pm History of diabetes mellitus acute June 06, 2025 8:15pm Chronic a-fib chronic June 06, 2025 8:15pm [facility] Work Phone: 1(174) 389-863910-08-2024 [facility]Instructions * Name Dates Details Patient Instructions Indication:Nonsmoker Start:27-Feb-2021 Instruction Type:Provider Instructions for Treatment How to Access Health Informa tion Online using Patient Portal and 3rd [employer] Apps Indication:Nonsmoker Start:27-Feb-2021 Instruction Type:Patient Education Patient Instructions Indication:BMI 40.0-44.9, adult Start:28-Nov-2020 Instruction Type:Provider Instructions for Treatment How to Access Health Informa tion Online using Patient Portal and 3rd [employer] Apps Indication:BMI 40.0-44.9, adult Start:28-Nov-2020 Instruction Type:Patient Education Patient Instructions Indication:Nonsmoker Start:06-Nov-2020 Instruction Type:Provider Instructions for Treatment How to Access Health Informa tion Online using Patient Portal and 3rd [employer] Apps Indication:Nonsmoker Start:06-Nov-2020 Instruction Type:Patient Education How [...] tion Online using Patient Portal and 3rd [employer] Apps Indication:Nonsmoker Start:11-Mar-2021 Instruction Type:Patient Education Patient Instructions Indication:Nonsmoker Start:27-Feb-2021 Instruction Type:Provider Instructions for Treatment How to Access Health Informa tion Online using Patient Portal and 3rd [employer] Apps Indication:Nonsmoker Start:27-Feb-2021 Instruction Type:Patient Education Patient Instructions Indication:BMI 40.0-44.9, adult Start:28-Nov-2020 Instruction Type:Provider Instructions for Treatment How to Access Health Informa tion Online using Patient Portal and 3rd [employer] Apps Indication:BMI 40.0-44.9, adult Start:28-Nov-2020 Instruction Type:Patient Education Patient Instructions Indication:Nonsmoker Start:06-Nov-2020 Instruction Type:Provider Instructions for Treatment How to Access Health Informa tion Online using Patient Portal and 3rd [employer] Apps Indication:Nonsmoker Start:06-Nov-2020 Instruction Type:Patient Education How [...] tion Online using Patient Portal and 3rd [employer] Apps Indication:Nonsmoker Start:11-Mar-2021 Instruction Type:Patient Education Patient Instructions Indication:Nonsmoker Start:27-Feb-2021 Instruction Type:Provider Instructions for Treatment How to Access Health Informa tion Online using Patient Portal and 3rd [employer] Apps Indication:Nonsmoker Start:27-Feb-2021 Instruction Type:Patient Education Patient Instructions Indication:BMI 40.0-44.9, adult Start:28-Nov-2020 Instruction Type:Provider Instructions for Treatment How to Access Health Informa tion Online using Patient Portal and 3rd [employer] Apps Indication:BMI 40.0-44.9, adult Start:28-Nov-2020 Instruction Type:Patient Education Patient Instructions Indication:Nonsmoker Start:06-Nov-2020 Instruction Type:Provider Instructions for Treatment How to Access Health Informa tion Online using Patient Portal and 3rd [employer] Apps Indication:Nonsmoker Start:06-Nov-2020 Instruction Type:Patient Education How [...] tion Online using Patient Portal and 3rd [employer] Apps Indication:Nonsmoker Start:11-Mar-2021 Instruction Type:Patient Education Patient Instructions Indication:Nonsmoker Start:27-Feb-2021 Instruction Type:Provider Instructions for Treatment How to Access Health Informa tion Online using Patient Portal and 3rd [employer] Apps Indication:Nonsmoker Start:27-Feb-2021 Instruction Type:Patient Education Patient Instructions Indication:BMI 40.0-44.9, adult Start:28-Nov-2020 Instruction Type:Provider Instructions for Treatment How to Access Health Informa tion Online using Patient Portal and 3rd [employer] Apps Indication:BMI 40.0-44.9, adult Start:28-Nov-2020 Instruction Type:Patient Education Patient Instructions Indication:Nonsmoker Start:06-Nov-2020 Instruction Type:Provider Instructions for Treatment How to Access Health Informa tion Online using Patient Portal and 3rd [employer] Apps Indication:Nonsmoker Start:06-Nov-2020 Instruction Type:Patient Education How [...] tion Online using Patient Portal and 3rd [employer] Apps Indication:Nonsmoker Start:11-Mar-2021 Instruction Type:Patient Education Patient Instructions Indication:Nonsmoker Start:27-Feb-2021 Instruction Type:Provider Instructions for Treatment How to Access Health Informa tion Online using Patient Portal and 3rd [employer] Apps Indication:Nonsmoker Start:27-Feb-2021 Instruction Type:Patient Education Patient Instructions Indication:BMI 40.0-44.9, adult Start:28-Nov-2020 Instruction Type:Provider Instructions for Treatment How to Access Health Informa tion Online using Patient Portal and 3rd [employer] Apps Indication:BMI 40.0-44.9, adult Start:28-Nov-2020 Instruction Type:Patient Education Patient Instructions Indication:Nonsmoker Start:06-Nov-2020 Instruction Type:Provider Instructions for Treatment How to Access Health Informa tion Online using Patient Portal and 3rd [employer] Apps Indication:Nonsmoker Start:06-Nov-2020 Instruction Type:Patient Education How [...] tion Online using Patient Portal and [employer]rd [employer] Apps Indication:BMI 40.0-44.9, adult Start:07-Oct-2021 Instruction Type:Patient Education Patient Instructions Indication:BMI 40.0-44.9, adult Start:27-Sep-2021 Instruction Type:Provider Instructions for Treatment How to Access Health Informa tion Online using Patient Portal and [employer] Indication:BMI 40.0-44.9, adult Start:27-Sep-2021 Instruction Type:Patient Education Patient Instructions Indication:Uncontrolled type II diabetes mellitus Start:13-Sep-2021 Instruction Type:Provider Instructions for Treatment How to Access Health Informa tion Online using Patient Portal and [employer] Apps Indication:Uncontrolled type II diabetes mellitus Start:13-Sep-2021 Instruction Type:Patient Education Patient Instructions Indication:BMI 40.0-44.9, adult Start:12-Jul-2021 Instruction Type:Provider Instructions for Treatment How to Access Health Informa tion Online using Patient Portal and [employer] Apps Indication:BMI 40.0-44.9, adult Start:12-Jul-2021 Instruction Type:Patient Education Patient Instructions Indication:Nonsmoker Start:10-Jun-2021 Instruction Type:Provider Instructions for Treatment How to Access Health Informa tion Online using Patient Portal and [employer] Apps Indication:Uncontrolled type II diabetes mellitus Start:10-Jun-2021 Instruction Type:Patient Education Patient Instructions Indication:BMI 40.0-44.9, adult Start:11-Mar-2021 Instruction Type:Provider Instructions for Treatment How to Access Health Informa tion Online using Patient Portal and [employer] Apps Indication:Nonsmoker Start:11-Mar-2021 Instruction Type:Patient Education Patient Instructions Indication:Nonsmoker Start:27-Feb-2021 Instruction Type:Provider Instructions for Treatment How to Access Health Informa tion Online using Patient Portal and [employer] Apps Indication:Nonsmoker Start:27-Feb-2021 Instruction Type:Patient Education Patient Instructions Indication:BMI 40.0-44.9, adult Start:28-Nov-2020 Instruction Type:Provider Instructions for Treatment How to Access Health Informa tion Online using Patient Portal and [employer] Apps Indication:BMI 40.0-44.9, adult Start:28-Nov-2020 Instruction Type:Patient Education Patient Instructions Indication:Nonsmoker Start:06-Nov-2020 Instruction Type:Provider Instructions for Treatment How to Access Health Informa tion Online using Patient Portal and [employer] Apps Indication:Nonsmoker Start:06-Nov-2020 Instruction Type:Patient Education How [...] tion Online using Patient Portal and [employer] Apps Indication:BMI 40.0-44.9, adult Start:07-Oct-2021 Instruction Type:Patient Education Patient Instructions Indication:BMI 40.0-44.9, adult Start:27-Sep-2021 Instruction Type:Provider Instructions for Treatment How to Access Health Informa tion Online using Patient Portal and [employer] Apps Indication:BMI 40.0-44.9, adult Start:27-Sep-2021 Instruction Type:Patient Education Patient Instructions Indication:Uncontrolled type II diabetes mellitus Start:13-Sep-2021 Instruction Type:Provider Instructions for Treatment How to Access Health Informa tion Online using Patient Portal and [employer] Apps Indication:Uncontrolled type II diabetes mellitus Start:13-Sep-2021 Instruction Type:Patient Education Patient Instructions Indication:BMI 40.0-44.9, adult Start:12-Jul-2021 Instruction Type:Provider Instructions for Treatment How to Access Health Informa tion Online using Patient Portal and [employer] Apps Indication:BMI 40.0-44.9, adult Start:12-Jul-2021 Instruction Type:Patient Education Patient Instructions Indication:Nonsmoker Start:10-Jun-2021 Instruction Type:Provider Instructions for Treatment How to Access Health Informa tion Online using Patient Portal and [employer] Apps Indication:Uncontrolled type II diabetes mellitus Start:10-Jun-2021 Instruction Type:Patient Education Patient Instructions Indication:BMI 40.0-44.9, adult Start:11-Mar-2021 Instruction Type:Provider Instructions for Treatment How to Access Health Informa tion Online using Patient Portal and [employer] Apps Indication:Nonsmoker Start:11-Mar-2021 Instruction Type:Patient Education Patient Instructions Indication:Nonsmoker Start:27-Feb-2021 Instruction Type:Provider Instructions for Treatment How to Access Health Informa tion Online using Patient Portal and [employer] Apps Indication:Nonsmoker Start:27-Feb-2021 Instruction Type:Patient Education Patient Instructions Indication:BMI 40.0-44.9, adult Start:28-Nov-2020 Instruction Type:Provider Instructions for Treatment How to Access Health Informa tion Online using Patient Portal and [employer] Apps Indication:BMI 40.0-44.9, adult Start:13-Jf-2021 Instruction Type:Patient Education Patient Instructions Indication:Nonsmoker Start:06-Nov-2020 Instruction Type:Provider Instructions for Treatment How to Access Health Informa tion Online using Patient Portal and [employer] Apps Indication:Nonsmoker Start:06-Nov-2020 Instruction Type:Patient Education How [...] tion Online using Patient Portal and [employer] Apps Indication:BMI 40.0-44.9, adult Start:07-Oct-2021 Instruction Type:Patient Education Patient Instructions Indication:BMI 40.0-44.9, adult Start:27-Sep-2021 Instruction Type:Provider Instructions for Treatment How to Access Health Informa tion Online using Patient Portal and [employer] Apps Indication:BMI 40.0-44.9, adult Start:27-Sep-2021 Instruction Type:Patient Education Patient Instructions Indication:Uncontrolled type II diabetes mellitus Start:13-Sep-2021 Instruction Type:Provider Instructions for Treatment How to Access Health Informa tion Online using Patient Portal and [employer] Apps Indication:Uncontrolled type II diabetes mellitus Start:13-Sep-2021 Instruction Type:Patient Education Patient Instructions Indication:BMI 40.0-44.9, adult Start:12-Jul-2021 Instruction Type:Provider Instructions for Treatment How to Access Health Informa tion Online using Patient Portal and [employer] Apps Indication:BMI 40.0-44.9, adult Start:12-Jul-2021 Instruction Type:Patient Education Patient Instructions Indication:Nonsmoker Start:10-Jun-2021 Instruction Type:Provider Instructions for Treatment How to Access Health Informa tion Online using Patient Portal and [employer] Apps Indication:Uncontrolled type II diabetes mellitus Start:10-Jun-2021 Instruction Type:Patient Education Patient Instructions Indication:BMI 40.0-44.9, adult Start:11-Mar-2021 Instruction Type:Provider Instructions for Treatment How to Access Health Informa tion Online using Patient Portal and [employer] Apps Indication:Nonsmoker Start:11-Mar-2021 Instruction Type:Patient Education Patient Instructions Indication:Nonsmoker Start:27-Feb-2021 Instruction Type:Provider Instructions for Treatment How to Access Health Informa tion Online using Patient Portal and [employer] Apps Indication:Nonsmoker Start:27-Feb-2021 Instruction Type:Patient Education Patient Instructions Indication:BMI 40.0-44.9, adult Start:28-Nov-2020 Instruction Type:Provider Instructions for Treatment How to Access Health Informa tion Online using Patient Portal and [employer] Apps Indication:BMI 40.0-44.9, adult Start:28-Nov-2020 Instruction Type:Patient Education Patient Instructions Indication:Nonsmoker Start:06-Nov-2020 Instruction Type:Provider Instructions for Treatment How to Access Health Informa tion Online using Patient Portal and [employer] Apps Indication:Nonsmoker Start:06-Nov-2020 Instruction Type:Patient Education How [...] tion Online using Patient Portal and [employer] Apps Indication:BMI 40.0-44.9, adult Start:07-Oct-2021 Instruction Type:Patient Education Patient Instructions Indication:BMI 40.0-44.9, adult Start:27-Sep-2021 Instruction Type:Provider Instructions for Treatment How to Access Health Informa tion Online using Patient Portal and [employer] Apps Indication:BMI 40.0-44.9, adult Start:27-Sep-2021 Instruction Type:Patient Education Patient Instructions Indication:Uncontrolled type II diabetes mellitus Start:13-Sep-2021 Instruction Type:Provider Instructions for Treatment How to Access Health Informa tion Online using Patient Portal and [employer] Apps Indication:Uncontrolled type II diabetes mellitus Start:13-Sep-2021 Instruction Type:Patient Education Patient Instructions Indication:BMI 40.0-44.9, adult Start:12-Jul-2021 Instruction Type:Provider Instructions for Treatment How to Access Health Informa tion Online using Patient Portal and [employer] Apps Indication:BMI 40.0-44.9, adult Start:12-Jul-2021 Instruction Type:Patient Education Patient Instructions Indication:Nonsmoker Start:10-Jun-2021 Instruction Type:Provider Instructions for Treatment How to Access Health Informa tion Online using Patient Portal and [employer] Apps Indication:Uncontrolled type II diabetes mellitus Start:10-Jun-2021 Instruction Type:Patient Education Patient Instructions Indication:BMI 40.0-44.9, adult Start:11-Mar-2021 Instruction Type:Provider Instructions for Treatment How to Access Health Informa tion Online using Patient Portal and [employer] Apps Indication:Nonsmoker Start:11-Mar-2021 Instruction Type:Patient Education Patient Instructions Indication:Nonsmoker Start:27-Feb-2021 Instruction Type:Provider Instructions for Treatment How to Access Health Informa tion Online using Patient Portal and [employer] Apps Indication:Nonsmoker Start:27-Feb-2021 Instruction Type:Patient Education Patient Instructions Indication:BMI 40.0-44.9, adult Start:28-Nov-2020 Instruction Type:Provider Instructions for Treatment How to Access Health Informa tion Online using Patient Portal and [employer] Apps Indication:BMI 40.0-44.9, adult Start:28-Nov-2020 Instruction Type:Patient Education Patient Instructions Indication:Nonsmoker Start:06-Nov-2020 Instruction Type:Provider Instructions for Treatment How to Access Health Informa tion Online using Patient Portal and [employer] Apps Indication:Nonsmoker Start:06-Nov-2020 Instruction Type:Patient Education How to access health informa tion online Indication:Nonsmoker Start:1-Dec-2020 Instruction Type:Patient Education How to access health [...] tion Online using Patient Portal and [employer] Apps Indication:BMI 40.0-44.9, adult Start:07-Oct-2021 Instruction Type:Patient Education Patient Instructions Indication:BMI 40.0-44.9, adult Start:27-Sep-2021 Instruction Type:Provider Instructions for Treatment How to Access Health Informa tion Online using Patient Portal and [employer] Apps Indication:BMI 40.0-44.9, adult Start:27-Sep-2021 Instruction Type:Patient Education Patient Instructions Indication:Uncontrolled type II diabetes mellitus Start:13-Sep-2021 Instruction Type:Provider Instructions for Treatment How to Access Health Informa tion Online using Patient Portal and [employer] Apps Indication:Uncontrolled type II diabetes mellitus Start:13-Sep-2021 Instruction Type:Patient Education Patient Instructions Indication:BMI 40.0-44.9, adult Start:12-Jul-2021 Instruction Type:Provider Instructions for Treatment How to Access Health Informa tion Online using Patient Portal and [employer] Apps Indication:BMI 40.0-44.9, adult Start:12-Jul-2021 Instruction Type:Patient Education Patient Instructions Indication:Nonsmoker Start:10-Jun-2021 Instruction Type:Provider Instructions for Treatment How to Access Health Informa tion Online using Patient Portal and [employer] Apps Indication:Uncontrolled type II diabetes mellitus Start:10-Jun-2021 Instruction Type:Patient Education Patient Instructions Indication:BMI 40.0-44.9, adult Start:11-Mar-2021 Instruction Type:Provider Instructions for Treatment How to Access Health Informa tion Online using Patient Portal and [employer] Apps Indication:Nonsmoker Start:11-Mar-2021 Instruction Type:Patient Education Patient Instructions Indication:Nonsmoker Start:27-Feb-2021 Instruction Type:Provider Instructions for Treatment How to Access Health Informa tion Online using Patient Portal and [employer] Apps Indication:Nonsmoker Start:27-Feb-2021 Instruction Type:Patient Education Patient Instructions Indication:BMI 40.0-44.9, adult Start:28-Nov-2020 Instruction Type:Provider Instructions for Treatment How to Access Health Informa tion Online using Patient Portal and [employer] Apps Indication:BMI 40.0-44.9, adult Start:28-Nov-2020 Instruction Type:Patient Education Patient Instructions Indication:Nonsmoker Start:06-Nov-2020 Instruction Type:Provider Instructions for Treatment How to Access Health Informa tion Online using Patient Portal and [employer] Apps Indication:Nonsmoker Start:06-Nov-2020 Instruction Type:Patient Education How [...] tion Online using Patient Portal and [employer] Apps Indication:BMI 40.0-44.9, adult Start:07-Oct-2021 Instruction Type:Patient Education Patient Instructions Indication:BMI 40.0-44.9, adult Start:27-Sep-2021 Instruction Type:Provider Instructions for Treatment How to Access Health Informa tion Online using Patient Portal and [employer] Apps Indication:BMI 40.0-44.9, adult Start:27-Sep-2021 Instruction Type:Patient Education Patient Instructions Indication:Uncontrolled type II diabetes mellitus Start:13-Sep-2021 Instruction Type:Provider Instructions for Treatment How to Access Health Informa tion Online using Patient Portal and [employer] Apps Indication:Uncontrolled type II diabetes mellitus Start:13-Sep-2021 Instruction Type:Patient Education Patient Instructions Indication:BMI 40.0-44.9, adult Start:12-Jul-2021 Instruction Type:Provider Instructions for Treatment How to Access Health Informa tion Online using Patient Portal and [employer] Apps Indication:BMI 40.0-44.9, adult Start:12-Jul-2021 Instruction Type:Patient Education Patient Instructions Indication:Nonsmoker Start:10-Jun-2021 Instruction Type:Provider Instructions for Treatment How to Access Health Informa tion Online using Patient Portal and [employer] Apps Indication:Uncontrolled type II diabetes mellitus Start:10-Jun-2021 Instruction Type:Patient Education Patient Instructions Indication:BMI 40.0-44.9, adult Start:11-Mar-2021 Instruction Type:Provider Instructions for Treatment How to Access Health Informa tion Online using Patient Portal and [employer] Apps Indication:Nonsmoker Start:11-Mar-2021 Instruction Type:Patient Education Patient Instructions Indication:Nonsmoker Start:27-Feb-2021 Instruction Type:Provider Instructions for Treatment How to Access Health Informa tion Online using Patient Portal and [employer] Apps Indication:Nonsmoker Start:27-Feb-2021 Instruction Type:Patient Education Patient Instructions Indication:BMI 40.0-44.9, adult Start:28-Nov-2020 Instruction Type:Provider Instructions for Treatment How to Access Health Informa tion Online using Patient Portal and [employer] Apps Indication:BMI 40.0-44.9, adult Start:28-Nov-2020 Instruction Type:Patient Education Patient Instructions Indication:Nonsmoker Start:06-Nov-2020 Instruction Type:Provider Instructions for Treatment How to Access Health Informa tion Online using Patient Portal and [employer] Apps Indication:Nonsmoker Start:06-Nov-2020 Instruction Type:Patient Education How [...] tion Online using Patient Portal and [employer] Apps Indication:BMI 40.0-44.9, adult Start:07-Oct-2021 Instruction Type:Patient Education Patient Instructions Indication:BMI 40.0-44.9, adult Start:27-Sep-2021 Instruction Type:Provider Instructions for Treatment How to Access Health Informa tion Online using Patient Portal and [employer] Apps Indication:BMI 40.0-44.9, adult Start:27-Sep-2021 Instruction Type:Patient Education Patient Instructions Indication:Uncontrolled type II diabetes mellitus Start:13-Sep-2021 Instruction Type:Provider Instructions for Treatment How to Access Health Informa tion Online using Patient Portal and [employer] Apps Indication:Uncontrolled type II diabetes mellitus Start:13-Sep-2021 Instruction Type:Patient Education Patient Instructions Indication:BMI 40.0-44.9, adult Start:12-Jul-2021 Instruction Type:Provider Instructions for Treatment How to Access Health Informa tion Online using Patient Portal and [employer] Apps Indication:BMI 40.0-44.9, adult Start:12-Jul-2021 Instruction Type:Patient Education Patient Instructions Indication:Nonsmoker Start:10-Jun-2021 Instruction Type:Provider Instructions for Treatment How to Access Health Informa tion Online using Patient Portal and [employer] Apps Indication:Uncontrolled type II diabetes mellitus Start:10-Jun-2021 Instruction Type:Patient Education Patient Instructions Indication:BMI 40.0-44.9, adult Start:11-Mar-2021 Instruction Type:Provider Instructions for Treatment How to Access Health Informa tion Online using Patient Portal and [employer] Apps Indication:Nonsmoker Start:11-Mar-2021 Instruction Type:Patient Education Patient Instructions Indication:Nonsmoker Start:27-Feb-2021 Instruction Type:Provider Instructions for Treatment How to Access Health Informa tion Online using Patient Portal and [employer] Apps Indication:Nonsmoker Start:27-Feb-2021 Instruction Type:Patient Education Patient Instructions Indication:BMI 40.0-44.9, adult Start:28-Nov-2020 Instruction Type:Provider Instructions for Treatment How to Access Health Informa tion Online using Patient Portal and [employer] Apps Indication:BMI 40.0-44.9, adult Start:28-Nov-2020 Instruction Type:Patient Education Patient Instructions Indication:Nonsmoker Start:06-Nov-2020 Instruction Type:Provider Instructions for Treatment How to Access Health Informa tion Online using Patient Portal and [employer] Apps Indication:Nonsmoker Start:06-Nov-2020 Instruction Type:Patient Education How [...] tion Online using Patient Portal and [employer] Apps Indication:BMI 40.0-44.9, adult Start:07-Oct-2021 Instruction Type:Patient Education Patient Instructions Indication:BMI 40.0-44.9, adult Start:27-Sep-2021 Instruction Type:Provider Instructions for Treatment How to Access Health Informa tion Online using Patient Portal and [employer] Apps Indication:BMI 40.0-44.9, adult Start:27-Sep-2021 Instruction Type:Patient Education Patient Instructions Indication:Uncontrolled type II diabetes mellitus Start:13-Sep-2021 Instruction Type:Provider Instructions for Treatment How to Access Health Informa tion Online using Patient Portal and [employer] Apps Indication:Uncontrolled type II diabetes mellitus Start:13-Sep-2021 Instruction Type:Patient Education Patient Instructions Indication:BMI 40.0-44.9, adult Start:12-Jul-2021 Instruction Type:Provider Instructions for Treatment How to Access Health Informa tion Online using Patient Portal and [employer] Apps Indication:BMI 40.0-44.9, adult Start:12-Jul-2021 Instruction Type:Patient Education Patient Instructions Indication:Nonsmoker Start:10-Jun-2021 Instruction Type:Provider Instructions for Treatment How to Access Health Informa tion Online using Patient Portal and [employer] Apps Indication:Uncontrolled type II diabetes mellitus Start:10-Jun-2021 Instruction Type:Patient Education Patient Instructions Indication:BMI 40.0-44.9, adult Start:11-Mar-2021 Instruction Type:Provider Instructions for Treatment How to Access Health Informa tion Online using Patient Portal and [employer] Apps Indication:Nonsmoker Start:11-Mar-2021 Instruction Type:Patient Education Patient Instructions Indication:Nonsmoker Start:27-Feb-2021 Instruction Type:Provider Instructions for Treatment How to Access Health Informa tion Online using Patient Portal and [employer] Apps Indication:Nonsmoker Start:27-Feb-2021 Instruction Type:Patient Education Patient Instructions Indication:BMI 40.0-44.9, adult Start:28-Nov-2020 Instruction Type:Provider Instructions for Treatment How to Access Health Informa tion Online using Patient Portal and [employer] Apps Indication:BMI 40.0-44.9, adult Start:28-Nov-2020 Instruction Type:Patient Education Patient Instructions Indication:Nonsmoker Start:06-Nov-2020 Instruction Type:Provider Instructions for Treatment How to Access Health Informa tion Online using Patient Portal and [employer] Apps Indication:Nonsmoker Start:06-Nov-2020 Instruction Type:Patient Education How [...] tion Online using Patient Portal and [employer] Apps Indication:BMI 40.0-44.9, adult Start:07-Oct-2021 Instruction Type:Patient Education Patient Instructions Indication:BMI 40.0-44.9, adult Start:27-Sep-2021 Instruction Type:Provider Instructions for Treatment How to Access Health Informa tion Online using Patient Portal and [employer] Apps Indication:BMI 40.0-44.9, adult Start:27-Sep-2021 Instruction Type:Patient Education Patient Instructions Indication:Uncontrolled type II diabetes mellitus Start:13-Sep-2021 Instruction Type:Provider Instructions for Treatment How to Access Health Informa tion Online using Patient Portal and [employer] Apps Indication:Uncontrolled type II diabetes mellitus Start:13-Sep-2021 Instruction Type:Patient Education Patient Instructions Indication:BMI 40.0-44.9, adult Start:12-Jul-2021 Instruction Type:Provider Instructions for Treatment How to Access Health Informa tion Online using Patient Portal and [employer] Apps Indication:BMI 40.0-44.9, adult Start:12-Jul-2021 Instruction Type:Patient Education Patient Instructions Indication:Nonsmoker Start:10-Jun-2021 Instruction Type:Provider Instructions for Treatment How to Access Health Informa tion Online using Patient Portal and [employer] Apps Indication:Uncontrolled type II diabetes mellitus Start:10-Jun-2021 Instruction Type:Patient Education Patient Instructions Indication:BMI 40.0-44.9, adult Start:11-Mar-2021 Instruction Type:Provider Instructions for Treatment How to Access Health Informa tion Online using Patient Portal and [employer] Apps Indication:Nonsmoker Start:11-Mar-2021 Instruction Type:Patient Education Patient Instructions Indication:Nonsmoker Start:27-Feb-2021 Instruction Type:Provider Instructions for Treatment How to Access Health Informa tion Online using Patient Portal and [employer] Apps Indication:Nonsmoker Start:27-Feb-2021 Instruction Type:Patient Education Patient Instructions Indication:BMI 40.0-44.9, adult Start:28-Nov-2020 Instruction Type:Provider Instructions for Treatment How to Access Health Informa tion Online using Patient Portal and [employer] Apps Indication:BMI 40.0-44.9, adult Start:28-Nov-2020 Instruction Type:Patient Education Patient Instructions Indication:Nonsmoker Start:06-Nov-2020 Instruction Type:Provider Instructions for Treatment How to Access Health Informa tion Online using Patient Portal and [employer] Apps Indication:Nonsmoker Start:06-Nov-2020 Instruction Type:Patient Education How [...] Internal Medicine; [facility] Work Phone: reason for referral (narrative)No reason for referral information availableWC[facility] Work Phone: Family History No Family History Records FoundUnknown Family Member Name Dates Details Father Comments:cardiovasculardecea sed massive [place] 57 Status:Active Maternal Grandmother Comments:strokes Status:Active Mother Comments:87- living dementia - arthritis Status:Active Sister 1 Comments:DM Status:Active Unknown Family Member Name Dates Details Father Comments:cardiovasculardecea sed massive [place] 57 Status:Active Maternal Grandmother Comments:strokes Status:Active Mother Comments:87- living dementia - arthritis Status:Active Sister 1 Comments:DM Status:Active Unknown Family Member Name Dates Details Father Comments:cardiovasculardecea sed massive [place] 57 Status:Active Maternal Grandmother Comments:strokes Status:Active Mother Comments:87- living dementia - arthritis Status:Active Sister 1 Comments:DM Status:Active Unknown Family Member Name Dates Details Father Comments:cardiovasculardecea sed massive [place] 57 Status:Active Maternal Grandmother Comments:strokes Status:Active Mother Comments:87- living dementia - arthritis Status:Active Sister 1 Comments:DM Status:Active Unknown Family Member Name Dates Details Father Comments:cardiovasculardecea sed massive [place] 57 Status:Active Maternal Grandmother Comments:strokes Status:Active Mother Comments:87- living dementia - arthritis Status:Active Sister 1 Comments:DM Status:Active Unknown Family Member Name Dates Details Father Comments:cardiovasculardecea sed massive MO 57 Status:Active Maternal Grandmother Comments:strokes Status:Active Mother Comments:87- living dementia - arthritis Status:Active Sister 1 Comments:DM Status:Active Unknown Family Member Name Dates Details Father Comments:cardiovasculardecea sed massive MO 57 Status:Active Maternal Grandmother Comments:strokes Status:Active Mother Comments:87- living dementia - arthritis Status:Active Sister 1 Comments:DM Status:Active Unknown Family Member Name Dates Details Father Comments:cardiovasculardecea sed massive MO 57 Status:Active Maternal Grandmother Comments:strokes Status:Active Mother Comments:87- living dementia - arthritis Status:Active Sister 1 Comments:DM Status:Active Unknown Family Member Name Dates Details Father Comments:cardiovasculardecea sed massive MO 57 Status:Active Maternal Grandmother Comments:strokes Status:Active Mother Comments:87- living dementia - arthritis Status:Active Sister 1 Comments:DM Status:Active Unknown Family Member Name Dates Details Father Comments:cardiovasculardecea sed massive MO 57 Status:Active Maternal Grandmother Comments:strokes Status:Active Mother Comments:87- living dementia - arthritis Status:Active Sister 1 Comments:DM Status:Active Unknown Family Member Name Dates Details Father Comments:cardiovasculardecea sed massive MO 57 Status:Active Maternal Grandmother Comments:strokes Status:Active Mother Comments:87- living dementia - arthritis Status:Active Sister 1 Comments:DM Status:Active Unknown Family Member Name Dates Details Father Comments:cardiovasculardecea sed massive MO 57 Status:Active Maternal Grandmother Comments:strokes Status:Active Mother Comments:87- living dementia - arthritis Status:Active Sister 1 Comments:DM Status:Active Unknown Family Member Name Dates Details Father Comments:cardiovasculardecea sed massive MO 57 Status:Active Maternal Grandmother Comments:strokes Status:Active Mother Comments:87- living dementia - arthritis Status:Active Sister 1 Comments:DM Status:Active Unknown Family Member Name Dates Details Father Comments:cardiovasculardecea sed massive MO 57 Status:Active Maternal Grandmother Comments:strokes Status:Active Mother Comments:87- living dementia - arthritis Status:Active Sister 1 Comments:DM Status:Active Unknown Family Member Name Dates Details Father Comments:cardiovasculardecea sed massive MO 57 Status:Active Maternal Grandmother Comments:strokes Status:Active Mother Comments:87- living dementia - arthritis Status:Active Sister 1 Comments:DM Status:Active Unknown Family Member Name Dates Details Father Comments:cardiovasculardecea sed massive MO 57 Status:Active Maternal Grandmother Comments:strokes Status:Active Mother Comments:87- living dementia - arthritis Status:Active Sister 1 Comments:DM Status:Active Unknown Family Member Name Dates Details Father Comments:cardiovasculardecea sed massive MO 57 Status:Active Maternal Grandmother Comments:strokes Status:Active Mother Comments:87- living dementia - arthritis Status:Active Sister 1 Comments:DM Status:Active Unknown Family Member Name Dates Details Father Comments:cardiovasculardecea sed massive MO 57 Status:Active Maternal Grandmother Comments:strokes Status:Active Mother Comments:87- living dementia - arthritis Status:Active Sister 1 Comments:DM Status:Active Unknown Family Member Name Dates Details Father Comments:cardiovasculardecea sed massive MO 57 Status:Active Maternal Grandmother Comments:strokes Status:Active Mother Comments:87- living dementia - arthritis Status:Active Sister 1 Comments:DM Status:Active Unknown Family Member Name Dates Details Father Comments:cardiovasculardecea sed massive MO 57 Status:Active Maternal Grandmother Comments:strokes Status:Active Mother Comments:87- living dementia - arthritis Status:Active Sister 1 Comments:DM Status:Active Unknown Family Member Name Dates Details Father Comments:cardiovasculardecea sed massive MO 57 Status:Active Maternal Grandmother Comments:strokes Status:Active Mother Comments:87- living dementia - arthritis Status:Active Sister 1 Comments:DM Status:Active Unknown Family Member Name Dates Details Father Comments:cardiovasculardecea sed massive MO 57 Status:Active Maternal Grandmother Comments:strokes Status:Active Mother Comments:87- living dementia - arthritis Status:Active Sister 1 Comments:DM Status:Active Unknown Family Member Name Dates Details Father Comments:cardiovasculardecea sed massive MO 57 Status:Active Maternal Grandmother Comments:strokes Status:Active Mother Comments:87- living dementia - arthritis Status:Active Sister 1 Comments:DM Status:Active Unknown Family Member Name Dates Details Father Comments:cardiovasculardecea sed massive MO 57 Status:Active Maternal Grandmother Comments:strokes Status:Active Mother Comments:87- living dementia - arthritis Status:Active Sister 1 Comments:DM Status:Active Unknown Family Member Name Dates Details Father Comments:cardiovasculardecea sed massive MO 57 Status:Active Maternal Grandmother Comments:strokes Status:Active Mother Comments:87- living dementia - arthritis Status:Active Sister 1 Comments:DM Status:Active Unknown Family Member Name Dates Details Father Comments:cardiovasculardecea sed massive MO 57 Status:Active Maternal Grandmother Comments:strokes Status:Active Mother Comments:87- living dementia - arthritis Status:Active Sister 1 Comments:DM Status:Active Unknown Family Member Name Dates Details Father Comments:cardiovasculardecea sed massive MO 57 Status:Active Maternal Grandmother Comments:strokes Status:Active Mother Comments:87- living dementia - arthritis Status:Active Sister 1 Comments:DM Status:Active Unknown Family Member Name Dates Details Father Comments:cardiovasculardecea sed massive MO 57 Status:Active Maternal Grandmother Comments:strokes Status:Active Mother Comments:87- living dementia - arthritis Status:Active Sister 1 Comments:DM Status:Active Unknown Family Member Name Dates Details Father Comments:cardiovasculardecea sed massive MO 57 Status:Active Maternal Grandmother Comments:strokes Status:Active Mother Comments:87- living dementia - arthritis Status:Active Sister 1 Comments:DM Status:Active Unknown Family Member Name Dates Details Father Comments:cardiovasculardecea sed massive MO 57 Status:Active Maternal Grandmother Comments:strokes Status:Active Mother Comments:87- living dementia - arthritis Status:Active Sister 1 Comments:DM Status:Active Unknown Family Member Name Dates Details Father Comments:cardiovasculardecea sed massive MO 57 Status:Active Maternal Grandmother Comments:strokes Status:Active Mother Comments:87- living dementia - arthritis Status:Active Sister 1 Comments:DM Status:Active Unknown Family Member Name Dates Details Father Comments:cardiovasculardecea sed massive MO 57 Status:Active Maternal Grandmother Comments:strokes Status:Active Mother Comments:87- living dementia - arthritis Status:Active Sister 1 Comments:DM Status:Active Unknown Family Member Name Dates Details Father Comments:cardiovasculardecea sed massive MO 57 Status:Active Maternal Grandmother Comments:strokes Status:Active Mother [...] Instructions Name Dates Details How to access health [...] Informa tion Online using Patient Portal and [employer] Apps Indication:Nonsmoker Start:06-Nov-2020 Instruction Type:Patient Education How [...] Informa tion Online using Patient Portal and [employer] Apps Indication:Nonsmoker Start:06-Nov-2020 Instruction Type:Patient Education How [...] Informa tion Online using Patient Portal and [employer] Apps Indication:BMI 40.0-44.9, adult Start:28-Nov-2020 Instruction Type:Patient Education Patient Instructions Indication:Nonsmoker Start:06-Nov-2020 Instruction Type:Provider Instructions for Treatment How to Access Health Informa tion Online using Patient Portal and [employer] Apps Indication:Nonsmoker Start:06-Nov-2020 Instruction Type:Patient Education How [...] tion Online using Patient Portal and [employer]rd [employer] Apps Indication:BMI 40.0-44.9, adult Start:28-Nov-2020 Instruction Type:Patient Education Patient Instructions Indication:Nonsmoker Start:06-Nov-2020 Instruction Type:Provider Instructions for Treatment How to Access Health Informa tion Online using Patient Portal and [employer]rd [employer] Apps Indication:Nonsmoker Start:06-Nov-2020 Instruction Type:Patient Education How [...] Informa tion Online using Patient Portal and [employer] Apps Indication:BMI 40.0-44.9, adult Start:28-Nov-2020 Instruction Type:Patient Education Patient Instructions Indication:Nonsmoker Start:06-Nov-2020 Instruction Type:Provider Instructions for Treatment How to Access Health Informa tion Online using Patient Portal and [employer]rd [employer] Apps Indication:Nonsmoker Start:06-Nov-2020 Instruction Type:Patient Education How [...] tion Online using Patient Portal and [employer]rd [employer] Apps Indication:BMI 40.0-44.9, adult Start:28-Nov-2020 Instruction Type:Patient Education Patient Instructions Indication:Nonsmoker Start:06-Nov-2020 Instruction Type:Provider Instructions for Treatment How to Access Health Informa tion Online using Patient Portal and [employer]rd [employer] Apps Indication:Nonsmoker Start:06-Nov-2020 Instruction Type:Patient Education How [...] tion Online using Patient Portal and [employer]rd [employer] Apps Indication:BMI 40.0-44.9, adult Start:28-Nov-2020 Instruction Type:Patient Education Patient Instructions Indication:Nonsmoker Start:06-Nov-2020 Instruction Type:Provider Instructions for Treatment How to Access Health Informa tion Online using Patient Portal and [employer]rd [employer] Apps Indication:Nonsmoker Start:06-Nov-2020 Instruction Type:Patient Education How [...] tion Online using Patient Portal and [employer]rd [employer] Apps Indication:Nonsmoker Start:27-Feb-2021 Instruction Type:Patient Education Patient Instructions Indication:BMI 40.0-44.9, adult Start:28-Nov-2020 Instruction Type:Provider Instructions for Treatment How to Access Health Informa tion Online using Patient Portal and [employer]rd [employer] Apps Indication:BMI 40.0-44.9, adult Start:28-Nov-2020 Instruction Type:Patient Education Patient Instructions Indication:Nonsmoker Start:06-Nov-2020 Instruction Type:Provider Instructions for Treatment How to Access Health Informa tion Online using Patient Portal and [employer]rd [employer] Apps Indication:Nonsmoker Start:06-Nov-2020 Instruction Type:Patient Education How [...] tion Online using Patient Portal and [employer]rd [employer] Apps Indication:Nonsmoker Start:27-Feb-2021 Instruction Type:Patient Education Patient Instructions Indication:BMI 40.0-44.9, adult Start:28-Nov-2020 Instruction Type:Provider Instructions for Treatment How to Access Health Informa tion Online using Patient Portal and [employer]rd [employer] Apps Indication:BMI 40.0-44.9, adult Start:28-Nov-2020 Instruction Type:Patient Education Patient Instructions Indication:Nonsmoker Start:06-Nov-2020 Instruction Type:Provider Instructions for Treatment How to Access Health Informa tion Online using Patient Portal and [employer] Apps Indication:Nonsmoker Start:06-Nov-2020 Instruction Type:Patient Education How [...] Type 2 diabetes mellitus March 13 9:59am Chief Complaint Admit Date 3 M FU February 08, 2025 4:0 4pm 8 mo f/u February 13, 2025 10: 45am S/O February 20, 2025 12:1 8pm Diabetes March 13, 2025 9:5 9am 3 M FU May 29, 2025 1:49 pm S/O-EORDER ROOF AND OLEGHE ORDERS May [id number] 3:27pm AMS, HYPOXIA June 06, 2025 8:15 pm Reason for Visit Admit Date Essential [...] Type 2 diabetes mellitus March 13 9:59am 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 extremity edema May 1:49pm Chronic back pain May 29, 2025 1:49 pm Essential (primary) hypertension May [id number] 1:49pm Fatigue May 29, 2025 1:49 pm Hypothyroidism May 29, 2025 1:49 pm Type 2 diabetes mellitus May 29, 2025 1:49pm Acute confusion June 06, 2025 8:15 pm Altered level of consciousness May 8:15pm Chronic anticoagulation June 06, 2025 8:15pm History of dementia June 06, 2025 8:15 pm History of diabetes mellitus June 06, 2025 8:15pm Chronic a-fib June 06, 2025 8:15 pm Chief Complaint Admit Date 8 mo f/u February 13, 2025 10: 45am S/O February 20, 2025 12:1 8pm Diabetes March 13, 2025 9:5 9am 3 M FU May 29, 2025 1:49 pm S/O-EORDER ROOF AND OLEGHE ORDERS May [id number] 3:27pm AMS, HYPOXIA June 06, 2025 8:15 pm AMS, HYPOXIA June 07, 2025 9:25 pm AMS, HYPOXIA June 08, 2025 8:38 pm AMS, HYPOXIA June 09, 2025 7:09 pm AMS, HYPOXIA June 10, 2025 2:54 pm Reason for Visit Admit Date Essential (primary) hypertension January 162024 10:45am Hyperlipidemia [...] Type 2 diabetes mellitus March 13 9:59am 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 extremity edema May 1:49pm Chronic back pain May 29, 2025 1:49 pm Essential (primary) hypertension May [id number] 1:49pm Fatigue May 29, 2025 1:49 pm Hypothyroidism May 29, 2025 1:49 pm Type 2 diabetes mellitus May 29, 2025 1:49pm Acute confusion June 06, 2025 8:15 pm Altered level of consciousness May 8:15pm Chronic anticoagulation June 06, 2025 8:15pm History of dementia June 06, 2025 8:15 pm History of diabetes mellitus June 06, 2025 8:15pm Chronic a-fib June 06, 2025 8:15 pm Chief Complaint Admit Date S/O February 20, 2025 12:1 8pm Diabetes March 13, 2025 9:5 9am 3 M FU May 29, 2025 1:49 pm S/O-EORDER ROOF AND OLEGHE ORDERS May [id number] 3:27pm AMS, HYPOXIA June 06, 2025 8:15 pm AMS, HYPOXIA June 07, 2025 9:25 pm AMS, HYPOXIA June 08, 2025 8:38 pm AMS, HYPOXIA June 09, 2025 7:09 pm AMS, HYPOXIA June 10, 2025 2:54 pm LAB WORK June 13, 2025 4:00 am Reason for Visit Admit Date Chronic kidney disease March 13, 2025 9:59am Essential (primary) hypertension February 152024 9:59am Hyperlipidemia March 13, 2025 9:5 9am Hypothyroidism March 13, 2025 9:5 9am Microalbuminuria March 13, 2025 9:5 9am Obesity March 13, 2025 9:5 9am Type 2 diabetes mellitus March 13 9:59am 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 extremity edema May 1:49pm Chronic back pain May 29, 2025 1:49 pm Essential (primary) hypertension May [id number] 1:49pm Fatigue May 29, 2025 1:49 pm Hypothyroidism May 29, 2025 1:49 pm Type 2 diabetes mellitus May 29, 2025 1:49pm Acute confusion June 06, 2025 8:15 pm Altered level of consciousness May 8:15pm Chronic anticoagulation June 06, 2025 8:15pm History of dementia June 06, 2025 8:15 pm History of diabetes mellitus June 06, 2025 8:15pm Chronic a-fib June 06, 2025 8:15 pm Advance Directives No Advanced Directives Records Found Advance Directive Response Recorded Date/ Time Living Will Yes December 16 9:59pm Do you have a Healthcare Power of Operator? Yes December 16, 2024 9:59pm Advance Directives Yes May 29 3:01pm Advance Directive Response Recorded Date/ Time Living Will Yes December 16 9:59pm Do you have a Healthcare Power of Operator? Yes December 16, 2024 9:59pm Living Will Yes March 15, 2025 8:28pm Do you have a Healthcare Power of Operator? Yes March 15, 2025 8:28pm Do you have a Healthcare Power of Operator? No June 06, 2025 6:08pm Advance Directives Yes May 29 3:01pm Advance Directive Response Recorded Date/ Time Living Will Yes December 16 9:59pm Do you have a Healthcare Power of Operator? Yes December 16, 2024 9:59pm Living Will Yes March 15, 2025 8:28pm Do you have a Healthcare Power of Operator? Yes March 15, 2025 8:28pm Do you have a Healthcare Power of Operator? No June 06, 2025 10:15pm Advance Directives Yes May 29 3:01pm Summary Purpose Additional Source Comments Source Comments (unrecognize d section and content) In the event this informatio n is protected by the Federal Confidentiality of Alcohol and Drug Abuse Patient Records regulations: The Federal rules restrict any use of the information to criminally investigate or prosecute any alcohol or drug abuse patient.[facility] Care Teams (unrecognized sec tion and content) [...] 2025 End: February 13, 2025 Elkin Beltran ASSISTANT PROGRAM MANAGER, ASSISTANT PROGRAM MANAGER-C Attending Provider Active S tart: February 13, [...] Active Member Role/Relationship Status Dates Dr. Terrell Schaefr MD Primary Care Provider Active Start: May [...] May 29, 2025 End: May 29, 2025 Team Status: Inactive Member Role/Relationship [...] 2025 End: February 13, 2025 Elkin Beltran NP ASSISTANT PROGRAM MANAGER-C Attending Provider Active S tart: February 13, [...] March 13, 2025 End: March 13, 2025 Nati Renee ASSISTANT PROGRAM MANAGER-C Attending Provider Active Start: March 13, 2025 [...] May 29, 2025 End: May 29, 2025 Team Status: Active Member Role/Relationship Status Dates Dr. Joel Judge MD Attending Provider Active S tart: May 29, 2025 Dr. Joel Judge MD Referring Provider Active S tart: May 29, 2025 Dr. Terrell Schafer MD Primary Care Provider Active Start: May 29, 2025 Dr. Terrell Schafer MD Other Provider Active Start: May 29, 2025 Elkin Beltran ASSISTANT PROGRAM MANAGER, ASSISTANT PROGRAM MANAGER-C Other Provider Active Start : May 29, 2025 Team Status: Active Member Role/Relationship Status Dates Dr. Terrell Schafer MD Primary Care Provider Active Start: June 06, 2025 Dr. Hugh Nunes MD Emergency Provider Active S tart: June 06, 2025 Dr. Jana Reardon MD Admit Provider Active St art: June 06, 2025 Dr. Jana Reardon MD Attending Provider Active Start: June 06, 2025 Team Status: Inactive Member Role/Relationship Status Dates Dr. Terrell Schafer MD Primary Care Provider Active Start: February 13, 2025 End: February 13, 2025 Dr. Terrell Schafer MD Referring Provider Active Start: February 13, 2025 End: February 13, 2025 Elkin Beltran ASSISTANT PROGRAM MANAGER, ASSISTANT PROGRAM MANAGER-C Attending Provider Active S tart: February 13, [...] March 13, 2025 End: March 13, 2025 Nati Renee NP-C Attending Provider Active Start: March 13, 2025 [...] May 29, 2025 End: May 29, 2025 Team Status: Active Member Role/Relationship Status Dates Dr. Joel Judge MD Attending Provider Active S tart: May 29, 2025 Dr. Joel Judge MD Referring Provider Active S tart: May 29, 2025 Dr. Terrell Schafer MD Primary Care Provider Active Start: May 29, 2025 Dr. Terrell Schafer MD Other Provider Active Start: May 29, 2025 Elkin Beltran NP, ASSISTANT PROGRAM MANAGER-C Other Provider Active Start : May 29, 2025 Team Status: Inactive Member Role/Relationship Status Dates Dr. Terrell Schafer MD Primary Care Provider Active Start: June 06, 2025 End: June 10, 2025 Dr. Hugh Nunes MD Emergency Provider Active S tart: June 06, 2025 End: June 10, 2025 Dr. Jaan Reardon MD Admit Provider Active St art: June 06, 2025 End: June 10, 2025 Dr. Jana Reardon MD Other Provider Active St art: June 06, 2025 End: June 10, [address] DO Attending Provider Active Start: June 06, 2025 End: June 10, 2025 Team Status: Active Member Role/Relationship Status Dates Dr. Terrell Schafer MD Primary Care Provider Active Start: June 07, 2025 Dr. Hugh Nunes MD Emergency Provider Active S tart: June 07, 2025 Dr. Jana Reardon MD Admit Provider Active St art: June 07, 2025 Dr. Jana Reardon MD Attending Provider Active Start: June 07, 2025 Dr. Jana Reardon MD Other Provider Active St art: June 07, [address] DO Other Provider Active S tart: June 07, 2025 Team Status: Active Member Role/Relationship Status Dates Dr. Terrell Schafer MD Primary Care Provider Active Start: June 08, 2025 Dr. She Lentz MD Attending Provider Activ e Start: June 08, 2025 Team Status: Active Member Role/Relationship Status Dates Dr. Terrell Schafer MD Primary Care Provider Active Start: June 08, 2025 Dr. Hugh Nunes MD Emergency Provider Active S tart: June 08, 2025 Dr. Jana Reardon MD Admit Provider Active St art: June 08, 2025 Dr. Jana Reardon MD Other Provider Active St art: June 08, [address] DO Attending Provider Active Start: June 08, [address] DO Other Provider Active S tart: June 08, 2025 Team Status: Active Member Role/Relationship Status Dates Dr. Terrell Schafer MD Primary Care Provider Active Start: June 09, 2025 Dr. Hugh Nunes MD Emergency Provider Active S tart: June 09, 2025 Dr. Jana Reardon MD Admit Provider Active St art: June 09, 2025 Dr. Jana Reardon MD Other Provider Active St art: June 09, [address] DO Attending Provider Active Start: June 09, [address] DO Other Provider Active S tart: June 09, 2025 Team Status: Active Member Role/Relationship Status Dates Dr. Terrell Schafer MD Primary Care Provider Active Start: June 10, 2025 Dr. Hugh Nunes MD Emergency Provider Active S tart: June 10, 2025 Dr. Jana Reardon MD Admit Provider Active St art: June 10, 2025 Dr. Jana Reardon MD Other Provider Active St art: June 10, [address] DO Attending Provider Active Start: June 10, [address] DO Other Provider Active S tart: June 10, 2025 Team Status: Inactive Member Role/Relationship Status [...] May 29, 2025 End: May 29, 2025 Team Status: Inactive Member Role/Relationship Status Dates Dr. Joel Judge MD Attending Provider Active S tart: May 29, 2025 End: June 15, 2025 Dr. Joel Judge MD Referring Provider Active S tart: May 29, 2025 End: June 15, 2025 Dr. Terrell Schafer MD Primary Care Provider Active Start: May 29, 2025 End: June 15, 2025 Dr. Terrell Schafer MD Other Provider Active Start: May 29, 2025 End: June 15, 2025 Elkin Beltran ASSISTANT PROGRAM MANAGER, ASSISTANT PROGRAM MANAGER-C Other Provider Active Start : May 29, 2025 End: June 15, 2025 Team Status: Inactive Member Role/Relationship Status Dates Dr. Terrell Schafer MD Primary Care Provider Active Start: June 06, 2025 End: June 10, 2025 Dr. Hugh Nunes MD Emergency Provider Active S tart: June 06, 2025 End: June 10, 2025 Dr. Jana Reardon MD Admit Provider Active St art: June 06, 2025 End: June 10, 2025 Dr. Jana Reardon MD Other Provider Active St art: June 06, 2025 End: June 10, [address] DO Attending Provider Active Start: June 06, 2025 End: June 10, 2025 Team Status: Active Member Role/Relationship Status Dates Dr. Terrell Schafer MD Primary Care Provider Active Start: June 07, 2025 Dr. Hugh Nunes MD Emergency Provider Active S tart: June 07, 2025 Dr. Jana Reardon MD Admit Provider Active St art: June 07, 2025 Dr. Jana Reardon MD Attending Provider Active Start: June 07, 2025 Dr. Jana Reardon MD Other Provider Active St art: June 07, [address] , Other Provider Active S tart: June 07, 2025 Team Status: Active Member Role/Relationship Status Dates Dr. Terrell Schafer MD Primary Care Provider Active Start: June 08, 2025 Dr. She Lentz MD Attending Provider Activ e Start: June 08, 2025 Team Status: Active Member Role/Relationship Status Dates Dr. Terrell Schafer MD Primary Care Provider Active Start: June 08, 2025 Dr. Hugh Nunes MD Emergency Provider Active S tart: June 08, 2025 Dr. Jana Reardon MD Admit Provider Active St art: June 08, 2025 Dr. Jana Reardon MD Other Provider Active St art: June 08, [address] DO Attending Provider Active Start: June 08, [address] DO Other Provider Active S tart: June 08, 2025 Team Status: Active Member Role/Relationship Status Dates Dr. Terrell Schafer MD Primary Care Provider Active Start: June 09, 2025 Dr. Hugh Nunes MD Emergency Provider Active S tart: June 09, 2025 Dr. Jana Reardon MD Admit Provider Active St art: June 09, 2025 Dr. Jana Reardon MD Other Provider Active St art: June 09, [address] DO Attending Provider Active Start: June 09, [address] DO Other Provider Active S tart: June 09, 2025 Team Status: Active Member Role/Relationship Status Dates Dr. Terrell Schafer MD Primary Care Provider Active Start: June 10, 2025 Dr. Hugh Nunes MD Emergency Provider Active S tart: June 10, 2025 Dr. Jana Reardon MD Admit Provider Active St art: June 10, 2025 Dr. Jana Reardon MD Other Provider Active St art: June 10, [address] , Attending Provider Active Start: June 10, [address] , Other Provider Active S tart: June 10, 2025 Team Status: Active Member Role/Relationship Status Dates Dr. Terrell Schafer MD Primary Care Provider Active Start: June 13, 2025 Elkni NICOLE MD Attending Provider Active Start: June 13, 2025 Elkin NICOLE MD Referring Provider Active Start: June 13, 2025 Goals (unrecognized section and content) Goals may be documented in a n alternate sectionGoals may be documented in an alternate section INFORMATION SOURCE (unrecogn ized section and content) DATE CREATED AUTHOR 06/17/2025 [facility] FOR RECORDS [...] BE BASED ON THE PRIMARY CLINICAL RECORDS. [employer] provides no warranty or guarantee of the accuracy or completeness of information in this document.
[2025-06-21 07:35] LABS: Hematocrit 38.4 % (37-47); Hemoglobin 13.0 g/dL (12.0-15.0); Mean Corp Hgb Conc 33.9 g/dL (32-36); Mean Corpuscular Volume 88.5 fL (81-99); Mean Platelet Vol. 10.7 fl (6.2-12.0); Platelet Count 206 K/mm3 (150-450); RBC Distribution Width CV 13.2 % (11.6-14.6); RBC Distribution Width SD 42.5 fl (35.1-43.9); Red Blood Count 4.34 M/mm3 (4.2-5.4); White Blood Count 10.1 K/mm3 (4.4-11.0)
[2025-06-21 08:23] LABS: Anion Gap 11 (5-15); BUN 27 mg/dL (4-19); BUN/Creat Ratio 29.8 RATIO (10-20); Calcium,Total 8.9 mg/dL (7.6-11.0); Carbon Dioxide 21.1 mmol/L (21.0-32.0); Chloride 107 mmol/L (98-108); Glucose 197 mg/dL (70-99); Potassium 3.8 mmol/L (3.3-5.1)
== END ==
LOC: OLS.WCC 05:00
PROVIDERS: PCP Internal Medicine; Visit Provider Family Medicine
DX: N18.2 Chronic kidney disease, stage 2 (mild) (principal); D64.9 Anemia, unspecified
CPT/HCPCS: 36415; 80048; 85027

== ENCOUNTER 2025-06-30 17:50 | Emergency (ER) | payer MEDICARE, OTHER, SELFPAY ==
[2025-06-30 17:51] VITALS: BP 121/95; PULSE 106; RESP 19; TEMP 36.5; O2SAT 97; BMI 38.7
--- NOTE | 2025-06-30 18:11 | CT_ITS ---
EXAM: CT BRAIN/HEAD WITHOUT CONTRAST; SPINE CERVICAL WITHOUT CONTRAST CLINICAL HISTORY: FALL, ON ELIQUIS; FALL COMPARISON: CT head/neck exams 06/07/2025. TECHNIQUE: Noncontrast CT images of the head and cervical spine with multiplanar reconstructions. Dose reduction techniques were used including intermediate exposure control (AEC),iterative reconstruction technique, and/or mA and/or KV dose adjustments based on patient's size. FINDINGS: HEAD: No acute intracranial hemorrhage, extra-axial collection, mass effect or evidence of acute infarct. Mild age-appropriate generalized brain parenchymal volume loss, and chronic microangiopathic changes in the supratentorial white matter. Atherosclerotic vascular calcifications. Absent upper sioux ocular lenses. Small left parietal scalp contusion. Intact skull base and calvarium. Well- aerated paranasal sinuses and bilateral mastoid air cells. CERVICAL SPINE: No acute fracture or subluxation. Straightening of the cervical lordosis is likely positional and/or degenerative in nature. Multilevel spondylotic changes with varying degrees of disc space narrowing, multiple small Schmorl's nodes and/or subchondral cysts, anterior osteophytosis, uncovertebral spurring and hypertrophic facet arthropathy. No prevertebral soft tissue swelling. Atherosclerotic vascular calcifications. The visualized lung apices are clear. CT/Brain/Head without Contrast IMPRESSION: 1. No acute intracranial abnormality. 2. Small left parietal scalp contusion. No calvarial fracture. 3. No acute cervical spine fracture or traumatic malalignment. Reading Location: [id number]
--- NOTE | 2025-06-30 18:11 | CT_ITS ---
EXAM: CT BRAIN/HEAD WITHOUT CONTRAST; SPINE CERVICAL WITHOUT CONTRAST CLINICAL HISTORY: FALL, ON ELIQUIS; FALL COMPARISON: CT head/neck exams 06/07/2025. TECHNIQUE: Noncontrast CT images of the head and cervical spine with multiplanar reconstructions. Dose reduction techniques were used including intermediate exposure control (AEC),iterative reconstruction technique, and/or mA and/or KV dose adjustments based on patient's size. FINDINGS: HEAD: No acute intracranial hemorrhage, extra-axial collection, mass effect or evidence of acute infarct. Mild age-appropriate generalized brain parenchymal volume loss, and chronic microangiopathic changes in the supratentorial white matter. Atherosclerotic vascular calcifications. Absent campo ocular lenses. Small left parietal scalp contusion. Intact skull base and calvarium. Well- aerated paranasal sinuses and bilateral mastoid air cells. CERVICAL SPINE: No acute fracture or subluxation. Straightening of the cervical lordosis is likely positional and/or degenerative in nature. Multilevel spondylotic changes with varying degrees of disc space narrowing, multiple small Schmorl's nodes and/or subchondral cysts, anterior osteophytosis, uncovertebral spurring and hypertrophic facet arthropathy. No prevertebral soft tissue swelling. Atherosclerotic vascular calcifications. The visualized lung apices are clear. CT/Spine Cervical without Contras IMPRESSION: 1. No acute intracranial abnormality. 2. Small left parietal scalp contusion. No calvarial fracture. 3. No acute cervical spine fracture or traumatic malalignment. Reading Location: [id number]
--- NOTE | 2025-06-30 18:11 | RAD_ITS ---
PROCEDURE: CHEST PA AND LATERAL 06/30/2025 REASON FOR EXAM: FALL TECHNIQUE: CHEST PA AND LATERAL COMPARISON: 06/07/2025 FINDINGS: Hardware: None. Heart: Heart size is mildly enlarged. Heart stent noted. Mediastinum: The mediastinal contour is unremarkable. Lungs: Mild pulmonary vascular congestion. No pleural effusion or pneumothorax. Bones: The bones are unremarkable. RAD/Chest PA and Lateral IMPRESSION: Stable mild cardiomegaly with mild pulmonary vascular congestion. Reading Location[facility]
--- NOTE | 2025-06-30 18:11 | RAD_ITS ---
PROCEDURE: PELVIS 1 OR 2 VIEWS 06/30/2025 REASON FOR EXAM: FALL TECHNIQUE: PELVIS 1 OR 2 VIEWS COMPARISON: None. FINDINGS: BONES: No acute fracture or focal osseous lesion. JOINTS: No dislocation. The joint spaces are preserved. Sclerosis of the pubic symphysis. SOFT TISSUES: Vascular calcifications in the pelvis bilaterally. RAD/Pelvis 1 or 2 Views IMPRESSION: NO EVIDENCE OF PELVIC FRACTURE Reading Location: [id number]
--- NOTE | 2025-06-30 18:12 | ED.VIS.FALL ---
HPI HPI - Fall History of Present Illness Chief Complaint: Fall Narrative Narrative: Patient is an 84-year-old female presenting emergency department after a fall. Patient has past medical history as below. She is on Warfarin for A-fib. Patient states that she was sitting down to urinate when she grabbed her walker to stabilize her and it caused her to fall. States that she struck the left side of her head on the door frame. She did not lose consciousness. She denies any neck or back pain. She denies any headaches, lightheadedness, dizziness, chest pain, shortness of breath or palpitations. Denies fever, chills, abdominal pain, nausea, vomiting. She is currently being treated for C. difficile at her nursing facility. [facility] Medical History History of diabetes mellitus History of dementia Chronic a-fib Acute confusion Chronic anticoagulation Altered level of consciousness Elevated bilirubin Lumbar radiculopathy 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 extremity edema Chronic back pain Fatigue Hepatitis Dementia TIA (transient ischemic attack) Hypercoagulable state due to atrial fibrillation Hypothyroidism Type 2 diabetes mellitus Heart valve transplant recipient Heart valve problem Vitamin deficiency Pneumonia Pancreatitis Murmur, cardiac Hives Generalized headaches Gallstones Cataracts, both eyes Transfusion history Atrial fibrillation MCC (current) use of anticoagulants Persistent atrial fibrillation Nonobstructive atherosclerosis of coronary artery Secondary pulmonary arterial hypertension Aortic stenosis with bicuspid valve Essential (primary) hypertension Environmental allergies Hyperlipidemia Paroxysmal atrial fibrillation Rapid atrial fibrillation (12/2019) Diabetes Morbid obesity with BMI of 40.0-44.9, adult Home Medications ?Medication ?Instructions ?Recorded ?Last Taken ?Type 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,systems analysis manager,cont 07/28/24 Unknown History (Dexcom G7 Test Engineer) alendronate 70 mg tablet 70 mg PO QWEEK OSTEOPEROSIS 08/22/24 Unknown History magnesium chloride 71.5 mg 143 mg PO DAILY SUPPLEMENT 08/22/24 08/21/24 History (magnesium chloride) tablet,delayed release ergocalciferol (vitamin D2) 1,250 50,000 unit PO QWEEK #20 caps 11/07/24 Unknown Rx mcg (50,000 unit) capsule metoprolol tartrate 100 mg tablet 100 mg PO BID BLOOD PRESSURE #180 11/21/24 Unknown Rx tabs atorvastatin 40 mg tablet 40 mg PO DAILY CHOLESTEROL #90 02/13/25 Unknown Rx tabs losartan 100 mg tablet 100 mg PO DAILY BLOOD PRESSURE 02/13/25 Unknown Rx #90 tabs gabapentin 100 mg capsule 100 mg PO TID neuropathy 03/13/25 Unknown History levothyroxine 25 mcg tablet 25 mcg PO QDAY #90 tabs 05/17/25 Unknown Rx acetaminophen 325 mg tablet 650 mg (2 x 325 mg) PO Q4H PRN PRN 06/10/25 Unknown Rx Fever, pain 1-08/25 #0 tabs furosemide 40 mg tablet 40 mg PO BIDLX #0 tabs 06/10/25 Unknown Rx insulin lispro 100 unit/mL See Protocol subcut ACHS #15 mL 06/10/25 Unknown Rx subcutaneous pen (Humalog KwikPen (U-100) Insulin) menthol 0.44 %-zinc oxide 20.6 % 1 applic topical 4X/DAY #0 grams 06/10/25 Unknown Rx topical ointment (Calmoseptine) nystatin 100,000 unit/gram topical 1 applic topical TID #0 grams 06/10/25 Unknown Rx powder potassium chloride 20 mEq 20 meq PO BIDCM #0 tabs 06/10/25 Unknown Rx tablet,extended release(part/cryst) sennosides 8.6 mg-docusate sodium 2 tab PO BID PRN PRN Constipation 06/10/25 Unknown Rx 50 mg tablet (Stimulant Laxative #0 tabs Plus) warfarin 6 mg tablet 6 mg PO DAILY #1 TAB 06/10/25 Unknown Rx Allergy/AdvReac Type Severity Reaction Status Date / Time acetaminophen (From Excedrin Allergy Intermediate headache Verified 06/06/25 18:06 Migraine) aspirin Allergy Intermediate headache Verified 06/06/25 18:06 caffeine (From Excedrin Allergy Intermediate headache Verified 06/06/25 18:06 Migraine) mold (mold spores) Allergy Intermediate respiratory Verified 06/06/25 18:06 distress lisinopril AdvReac Severe Cough Verified 06/06/25 18:06 monosodium glutamate (msg) AdvReac Intermediate PT UNSURE Verified 06/06/25 18:06 OF REACTION wheat AdvReac Intermediate PT UNSURE Verified 06/06/25 18:06 OF REACTION liraglutide (From Victoza) AdvReac Other Verified 06/06/25 18:06 Family History Father CAD (coronary artery disease) Brother Diabetes Sister Diabetes Breast cancer Hyperlipidemia Hypertension Arthritis Lupus Colon cancer Grandmother CVA (cerebral vascular accident) Grandfather Sudden cardiac Son Atrial fibrillation Mother Arthritis Other High cholesterol Surgical History S/P TAVR (transcatheter aortic valve replacement) History of left heart catheterization (03/11/12) History of appendectomy History of hysterectomy History of cholecystectomy Social History adopted: No household members: other details: daughter current occupational status: retired Smoking Status: Never smoker alcohol intake: current alcohol intake frequency: holidays/special occasions only details: wine what type of physical activity do you participate in: none seatbelt use: never do you feel safe at home: No ROS ROS ED ROS Narrative see HPI EXAM Physical Exam Narrative Exam Narrative: Vital signs: Reviewed General: Alert and oriented. No acute distress. Chronically ill-appearing HEENT: Head is normocephalic. Small hematoma to the left posterior parietal region of the head. There is no laceration or abrasion. sinuses nontender, pupils equal round and reactive. Nares are patent. Oropharynx and throat exams normal. Neck: Supple without lymphadenopathy nontender. No midline cervical spinal tenderness to palpation. No step-offs or deformities. Cardiovascular: Regular rate and rhythm, no murmurs. No rubs or gallops. Normal S1 and S2 Respiratory: Clear to auscultation bilaterally. No wheezes, rales, rhonchi Abdominal: Soft and nontender. Normal bowel sounds. No guarding or rebound. Nonsurgical abdomen Extremities: No midline thoracic or lumbar spinal tenderness to palpation. No step-offs or deformities. Hips are stable and nontender to palpation. Extremities are atraumatic and nontender to palpation with normal active range of motion. Skin: No rash or redness. Neurological: Cranial nerves II through XII are grossly intact. Normal strength and sensation. Normal cerebellar function The rest of the physical exam is unremarkable Const Vital Signs: 06/30/25 17:51 06/30/25 18:43 06/30/25 19:50 Temperature 97.7 F L Temperature Source Oral Pulse Rate 106 H 105 H Respiratory Rate 19 H 20 H Respiratory Effort Normal Non-Labored Respiratory Depth Normal Blood Pressure 121/95 H 143/119 H Blood Pressure Mean 103 127 Pulse Ox 97 100 Oxygen Delivery Method Room Air Room Air 06/30/25 21:00 06/30/25 22:00 06/30/25 23:00 Temperature 98 F Temperature Source Pulse Rate 115 H 94 110 H Respiratory Rate 25 H 29 H 22 H Respiratory Effort Respiratory Depth Blood Pressure 105/76 118/70 138/90 H Blood Pressure Mean 85 86 106 Pulse Ox 95 95 Oxygen Delivery Method Room Air MDM MDM MDM Narrative Medical decision making narrative: Patient is a 84-year-old female presenting to the emergency department for a mechanical fall. Patient was seen and examined. Vitals are stable. Patient resting bed comfortably in no acute distress. CT of the brain and cervical spine were ordered. Chest x-ray and pelvis x-ray ordered. Patient denies any symptoms prior to falling, states it was purely mechanical. She is alert and oriented x 3. CT of the brain shows no acute intracranial abnormality. Small left parietal scalp contusion, no fractures. CT cervical spine shows no acute cervical spine fracture or traumatic malalignment. Chest x-ray shows no acute traumatic findings, stable mild cardiomegaly. Pelvis x-ray shows no evidence of pelvic fracture. Updated patient and family at bedside. It is noted in the triage note that the patient was feeling lightheaded which caused her to fall, patient denies this. Again verified that patient had no symptoms or to falling and it was all mechanical. Her and family verify this again. Patient does have a history of paroxysmal A-fib, is in A-fib here that is rate controlled. When I evaluated the patient her heart rate was in the mid 90s. Patient discharged from the Emergency Department. I do not feel that the patient's evaluation reveals any acute reason for admission at this time. I instructed them to either follow-up with their primary care physician or promptly return to the Emergency Department for reevaluation should symptoms worsen or new symptoms develop. I explained what symptoms would indicate the need to return to the emergency department. Shared decision making was used. The patient voiced understanding of the treatment plan and is agreeable with it. Clinical impression Fall Head trauma History & Record Review Discussion w/independent historian: Patient and Family Radiography Diagnostic Testing: Clinical Impression(s) from Imaging Studies Brain CT 06/30/25 18:11 IMPRESSION: 1. No acute intracranial abnormality. 2. Small left parietal scalp contusion. No calvarial fracture. 3. No acute cervical spine fracture or traumatic malalignment. Reading Location: [facility] Cervical Spine CT 06/30/25 18:11 IMPRESSION: 1. No acute intracranial abnormality. 2. Small left parietal scalp contusion. No calvarial fracture. 3. No acute cervical spine fracture or traumatic malalignment. Reading Location: [facility] Chest X-Ray 06/30/25 18:11 IMPRESSION: Stable mild cardiomegaly with mild pulmonary vascular congestion. Reading Location: [facility] Pelvis X-Ray 06/30/25 18:11 IMPRESSION: NO EVIDENCE OF PELVIC FRACTURE Reading Location: [facility] Discharge Plan Triage Chief Complaint: Fall ED Provider: Azucena Olvera Dx/Rx/DC Orders Clinical Impression: Fall, Head injury Instructions: ED Mechanical Fall, ED Head Injury (Adult) Prescriptions: No Action (DME) Dexcom G7 Test Engineer Misc See Rx Instructions .Route Rx Instructions: As directed ergocalciferol (vitamin D2) 1,250 mcg (50,000 unit) capsule 50,000 unit PO QWEEK Qty: 20 1RF losartan 100 mg tablet 100 mg PO DAILY Qty: 90 3RF atorvastatin 40 mg tablet 40 mg PO DAILY Qty: 90 3RF gabapentin 100 mg capsule 100 mg PO TID alendronate 70 mg tablet 70 mg PO QWEEK magnesium chloride 71.5 MG tablet,delayed release (DR/EC) 143 mg PO DAILY furosemide 40 mg Tablet 40 mg PO BIDLX Qty: 0 0RF acetaminophen 325 mg Tablet 650 mg PO Q4H PRN PRN (Reason: Fever, pain 1-08/25) Qty: 0 0RF insulin lispro [Humalog KwikPen Insulin] 100 unit/mL Insulin Pen See Protocol subcut ACHS Qty: 15 0RF Protocol: 3. Sliding Scale Insulin Med Dosing Condition: 150-189 mg/dl = 1 unit Condition: 190-229 mg/dl = 2 units Condition: 230-269 mg/dl = 3 units Condition: 270-309 mg/dl = 4 units Condition: 310-349 mg/dl = 5 units Condition: 350-399 mg/dl = 6 units Condition: 400-449 mg/dl = 7 units Condition: Greater than 449 call physician Protocol Text: - Use for Total Daily Dose of Insulin 37-55 units - Obsese, infected, or steroid patients MEDIUM DOSING ALGORITHIM menthol-zinc oxide [Calmoseptine] 0.44-20.6 % Ointment 1 applic topical 4X/DAY Qty: 0 0RF Protocol: *Topical Application Instructions APPLICATION INSTRUCTIONS: apply to affected region Rx Instructions: Apply to affected areas as needed 4 times a day sennosides-docusate sodium [Stimulant Laxative Plus] 8.6-50 mg Tablet 2 tab PO BID PRN PRN (Reason: Constipation) Qty: 0 0RF potassium chloride 20 mEq Tablet,Er Particles/Crystals 20 meq PO BIDCM Qty: 0 0RF nystatin 100,000 unit/gram Powder 1 applic topical TID Qty: 0 0RF Protocol: *Topical Application Instructions APPLICATION INSTRUCTIONS: to affected regions warfarin 6 mg tablet 6 mg PO DAILY Qty: 1 0RF metoprolol tartrate 100 mg tablet 100 mg PO BID Qty: 180 3RF levothyroxine 25 mcg tablet 25 mcg PO QDAY Qty: 90 0RF Primary Care Provider: Terrell Schafer Referrals: Terrell Schafer MD [Primary Care Provider] - 2 Days Activity Restrictions/Additional Instructions: Your evaluation in the Emergency Department did not reveal any acute reason for admission. However, I want to emphasize that you may be early in the course of a disease process or illness even if it is not present. For this reason you should follow-up within 24 hours for reevaluation with either your primary care physician or if necessary back here in the Emergency Department. You should return to the Emergency Department immediately if your symptoms worsen or new symptoms develop. Print Language: [place] Citizen Disposition Disposition: Home, Self Care
[2025-06-30 19:50] VITALS: BP 143/119; PULSE 105; RESP 20; O2SAT 100
[2025-06-30 21:00] VITALS: BP 105/76; PULSE 115; RESP 25; O2SAT 95
[2025-06-30 22:00] VITALS: BP 118/70; PULSE 94; RESP 29; TEMP 36.6; O2SAT 95
[2025-06-30 23:00] VITALS: BP 138/90; PULSE 110; RESP 22
== END 2025-07-01 01:05 | disposition skilled nursing facility (03) ==
PROVIDERS: Emergency Provider Student in an Organized Health Care Education/Training Program; PCP Internal Medicine; Visit Provider Student in an Organized Health Care Education/Training Program
DX: S00.03XA Contusion of scalp, initial encounter (principal); F03.90 Unspecified dementia, unspecified severity, without behavioral disturbance, psychotic disturbance, mood disturbance, and anxiety; I48.0 Paroxysmal atrial fibrillation; E66.01 Morbid (severe) obesity due to excess calories; E11.9 Type 2 diabetes mellitus without complications; Z79.4 Long term (current) use of insulin; W18.39XA Other fall on same level, initial encounter; I10 Essential (primary) hypertension; E78.5 Hyperlipidemia, unspecified; I25.10 Atherosclerotic heart disease of native coronary artery without angina pectoris; Z68.38 Body mass index [BMI] 38.0-38.9, adult; Z79.01 Long term (current) use of anticoagulants; Z79.899 Other long term (current) drug therapy
CPT/HCPCS: 70450; 71046; 72125; 72170; 99285

== ENCOUNTER → 2025-07-03 05:00 | Outpatient (REF) | payer MEDICARE, OTHER, SELFPAY ==
[2025-07-03 08:38] LABS: Hematocrit 37.0 % (37-47); Hemoglobin 12.3 g/dL (12.0-15.0); Mean Corp Hgb Conc 33.2 g/dL (32-36); Mean Corpuscular Volume 88.5 fL (81-99); Mean Platelet Vol. 10.8 fl (6.2-12.0); Platelet Count 252 K/mm3 (150-450); RBC Distribution Width CV 13.8 % (11.6-14.6); RBC Distribution Width SD 44.5 fl (35.1-43.9); Red Blood Count 4.18 M/mm3 (4.2-5.4); White Blood Count 12.5 K/mm3 (4.4-11.0)
[2025-07-03 09:33] LABS: Anion Gap 12 (5-15); BUN 25 mg/dL (4-19); BUN/Creat Ratio 28.3 RATIO (10-20); Calcium,Total 9.2 mg/dL (7.6-11.0); Carbon Dioxide 15.6 mmol/L (21.0-32.0); Chloride 109 mmol/L (98-108); Glucose 269 mg/dL (70-99); Potassium 5.5 mmol/L (3.3-5.1)
== END ==
LOC: OLS.WCC 05:00
PROVIDERS: PCP Internal Medicine; Visit Provider Family Medicine
DX: R53.83 Other fatigue (principal)
CPT/HCPCS: 36415; 80048; 85027

== ENCOUNTER → 2025-08-09 | Outpatient (CLI) | payer MEDICARE, OTHER, SELFPAY ==
[2025-08-09 18:49] LABS: Prothrombin Time (Protime)PT. 15.5 SECONDS (11.7-14.9)
== END | disposition home or self-care (01) ==
LOC: MTLAB 16:26
PROVIDERS: PCP Internal Medicine; Referring Provider Physician Assistant Medical; Visit Provider Physician Assistant Medical
DX: I48.0 Paroxysmal atrial fibrillation (principal); Z79.01 Long term (current) use of anticoagulants
CPT/HCPCS: 36415; 85610

== ENCOUNTER → 2025-08-15 | Outpatient (CLI) | payer MEDICARE, OTHER, SELFPAY ==
[2025-08-15 12:14] LABS: Hematocrit 37.4 % (37-47); Hemoglobin 12.3 g/dL (12.0-15.0); Immature Granulocytes Count 0.030 X10^3/uL (0.0-0.0); Mean Corp Hgb Conc 32.9 g/dL (32-36); Mean Corpuscular Volume 90.1 fL (81-99); Mean Platelet Vol. 10.8 fl (6.2-12.0); NRBC Flagged by Analyzer 0 % (0-5); Platelet Count 155 K/mm3 (150-450); RBC Distribution Width CV 14.5 % (11.6-14.6); RBC Distribution Width SD 47.7 fl (35.1-43.9); Red Blood Count 4.15 M/mm3 (4.2-5.4); White Blood Count 6.7 K/mm3 (4.4-11.0)
[2025-08-15 12:24] LABS: Prothrombin Time (Protime)PT. 18.0 SECONDS (11.7-14.9)
[2025-08-15 15:09] LABS: Cholesterol 108 mg/dL (<=200); Low Density Lipoprotein Calc. 43 mg/dL; Triglycerides 122 mg/dL; Very Low Density Lipoprotein 24 mg/dL (5-40); cholesterol:hdl ratio screen 2.63
[2025-08-15 15:40] LABS: AST(SGOT) 33 U/L (<=31); Alanine Aminotransfer ALT/SGPT 27 U/L (<=34); Albumin, Serum 3.8 g/dL (3.4-4.8); Alkaline Phosphatase 86 U/L (35-104); Anion Gap 16 (5-15); BUN 28 mg/dL (4-19); BUN/Creat Ratio 32.4 RATIO (10-20); Calcium,Total 9.5 mg/dL (7.6-11.0); Carbon Dioxide 19.6 mmol/L (21.0-32.0); Chloride 104 mmol/L (98-108); Globulin 3.0 g/dL (2.2-4.2); Glucose 192 mg/dL (70-99); Potassium 4.1 mmol/L (3.3-5.1); Vitamin D,25 Hydroxy 49.5 ng/mL (30-100)
== END | disposition home or self-care (01) ==
LOC: LAB 11:26
PROVIDERS: PCP Internal Medicine; Referring Provider Internal Medicine Cardiovascular Disease; Visit Provider Internal Medicine Cardiovascular Disease
DX: I48.19 Other persistent atrial fibrillation (principal); Z79.01 Long term (current) use of anticoagulants; R17 Unspecified jaundice; E78.5 Hyperlipidemia, unspecified; E55.9 Vitamin D deficiency, unspecified
CPT/HCPCS: 36415; 80053; 80061; 82306; 85025; 85610

== ENCOUNTER 2025-09-12 11:45 | Outpatient (RCR) | payer MEDICARE, OTHER, SELFPAY ==
[2025-08-23 18:29] LABS: Prothrombin Time (Protime)PT. 17.4 SECONDS (11.7-14.9)
[2025-09-01 18:51] LABS: Prothrombin Time (Protime)PT. 20.3 SECONDS (11.7-14.9)
[2025-09-12 15:29] LABS: Prothrombin Time (Protime)PT. 20.1 SECONDS (11.7-14.9)
== END 2025-09-12 18:00 | disposition home or self-care (01) ==
LOC: MTLAB 11:45
PROVIDERS: PCP Internal Medicine; Referring Provider Internal Medicine Cardiovascular Disease; Visit Provider Internal Medicine Cardiovascular Disease
DX: I48.19 Other persistent atrial fibrillation (principal); Z79.01 Long term (current) use of anticoagulants
CPT/HCPCS: 36415; 85610

== ENCOUNTER 2025-09-21 16:27 | Outpatient (RCR) | payer MEDICARE, OTHER, SELFPAY ==
[2025-09-21 18:13] LABS: Prothrombin Time (Protime)PT. 25.7 SECONDS (11.7-14.9)
== END 2025-10-14 18:00 | disposition home or self-care (01) ==
LOC: MTLAB 16:27
PROVIDERS: PCP Internal Medicine; Referring Provider Internal Medicine Cardiovascular Disease; Visit Provider Internal Medicine Cardiovascular Disease
DX: I48.19 Other persistent atrial fibrillation (principal); Z79.01 Long term (current) use of anticoagulants
CPT/HCPCS: 36415; 85610

== ENCOUNTER → 2025-10-23 | Outpatient (CLI) | payer MEDICARE, OTHER, SELFPAY ==
[2025-10-23 18:28] LABS: AST(SGOT) 27 U/L (<=31); Alanine Aminotransfer ALT/SGPT 23 U/L (<=34); Albumin, Serum 3.9 g/dL (3.4-4.8); Alkaline Phosphatase 143 U/L (35-104); Bilirubin, Direct 0.33 mg/dL (0.00-0.30); Cholesterol 115 mg/dL (<=200); Globulin 3.3 g/dL (2.2-4.2); Low Density Lipoprotein Calc. 37 mg/dL; Triglycerides 249 mg/dL; Very Low Density Lipoprotein 50 mg/dL (5-40); cholesterol:hdl ratio screen 2.87
== END | disposition home or self-care (01) ==
LOC: MTLAB 16:55
PROVIDERS: PCP Internal Medicine; Referring Provider Nurse Practitioner Family; Visit Provider Nurse Practitioner Family
DX: E78.2 Mixed hyperlipidemia (principal)
CPT/HCPCS: 36415; 80061; 80076

== ENCOUNTER 2025-11-07 14:53 | Outpatient (RCR) | payer MEDICARE, OTHER, SELFPAY ==
[2025-10-18 18:33] LABS: Prothrombin Time (Protime)PT. 48.9 SECONDS (11.7-14.9)
[2025-10-27 18:13] LABS: Prothrombin Time (Protime)PT. 19.7 SECONDS (11.7-14.9)
[2025-11-07 19:17] LABS: Prothrombin Time (Protime)PT. 19.6 SECONDS (11.7-14.9)
== END 2025-11-07 18:00 | disposition home or self-care (01) ==
LOC: MTLAB 14:53
PROVIDERS: PCP Internal Medicine; Referring Provider Internal Medicine Cardiovascular Disease; Visit Provider Internal Medicine Cardiovascular Disease
DX: I48.19 Other persistent atrial fibrillation (principal); Z79.01 Long term (current) use of anticoagulants
CPT/HCPCS: 36415; 85610